=== PATIENT | male | born 1935 | race Caucasian/White ===

== ENCOUNTER → 2018-02-15 09:00 | Outpatient (CLI) | payer MEDICARE, MEDICAID, SELFPAY | PROVIDERS: PCP Family Medicine; Visit Provider Nurse Practitioner Family | DX: Z45.018 Encounter for adjustment and management of other part of cardiac pacemaker (principal); I49.5 Sick sinus syndrome; I48.0 Paroxysmal atrial fibrillation; I50.32 Chronic diastolic (congestive) heart failure; J44.9 Chronic obstructive pulmonary disease, unspecified; I13.0 Hypertensive heart and chronic kidney disease with heart failure and stage 1 through stage 4 chronic kidney disease, or unspecified chronic kidney disease; N18.9 Chronic kidney disease, unspecified | CPT/HCPCS: 93280; 99213 ==

== ENCOUNTER 2018-02-24 17:06 | Inpatient (IN) | payer MEDICARE, MEDICAID, SELFPAY ==
[2018-02-24] VITALS (36 sets, daily range): BP systolic 117–155; BP diastolic 42–75; PULSE 59–74; RESP 12–22; TEMP 36.1–36.7; O2SAT 94–99
[2018-02-24 17:54] LABS: Abs Immature Grans 0.02 k/cumm (0.0-0.09); Absolute Basophil Count 0.02 k/cumm (0.0-0.2); Absolute Eosinophil Count 0.07 k/cumm (0.0-0.7); Absolute Lymphocyte Count 1.44 k/cumm (1.2-3.4); Absolute Neutrophil Count 3.94 k/cumm (1.2-6.7); Basophils % 0.3; Eosinophils % 1.1; HCT 39.9 % (40.0-50.0); HGB 12.8 g/dL (13.5-17.5); Immature Grans % 0.3; Lymphocytes % 23.6; Mean Corp. HGB Concentration 32.1 g/dL (32.0-36.0); Mean Corpuscular Volume 93.4 fL (80-95); Monocytes % 9.9; Neutrophils % 64.8; Platelet Count 179 x1000/uL (130-400); RBC 4.27 m/cumm (4.50-6.00); RBC Distribution Width 15.1 % (11.8-14.1); White Blood Cell Count 6.09 k/cumm (4.4-10.8)
[2018-02-24] MEDS: MORPHine 10 MG/ML VIAL 4 MG IVP (17:57)
[2018-02-24] MEDS: Normal Saline 500 ML IV (17:58)
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
[2018-02-24 18:04] LABS: Lactate-non-spesis 1.3 mmol/L (0.6-1.4)
[2018-02-24 18:09] LABS: Bilirubin Negative (Negative); Blood Trace-intact (Negative); Clarity Clear; Glucose Negative (Negative); Ketones Negative (Negative); Leukocyte Esterase Small (Negative); Nitrite Positive (Negative); Urobilinogen 0.2 EU/dL (Up TO 0.2)
[2018-02-24 18:24] LABS: Bacteria Moderate HPF (Negative); Crystals Negative HPF (Negative); Epithelial Cells Rare HPF (Negative); RBC 0-2 (0-2)
[2018-02-24 18:25] LABS: C & S Indicated? Yes; Casts Negative LPF (Negative); Mucus Trace (Negative); WBC 20-50 HPF (0-5)
[2018-02-24 18:28] LABS: ALT 247 U/L (12-78); AST 417 U/L (15-37); Albumin 3.2 g/dL (3.4-5.0); Alkaline Phosphatase 228 U/L (46-116); Anion Gap 6.6 mmol/L (3-11); BUN 20 mg/dL (7-18); CO2 28.4 mmol/L (21.0-32.0); CREATININE 1.22 mg/dL (0.70-1.30); Calcium 8.8 mg/dL (8.5-10.1); Chloride 103 mmol/L (98-107); Estimated GFR 57.01 (mL/min/1.73m2); Glucose 95 mg/dL (70-100); Lipase 121 U/L (73-393); Magnesium 1.9 mg/dL (1.8-2.4); Potassium 4.3 mmol/L (3.5-5.1); Sodium 138 mmol/L (136-145); Troponin I < 0.02 ng/mL (0.00-0.06)
--- NOTE | 2018-02-24 19:10 | DI.RPTCT_ITS ---
SYMPTOM/DIAGNOSIS: DIFFUSE ABDOMINAL PAIN, DIVERTICULITIS ABDOMINAL AND PELVIC CT : 02/24 CT examination of the abdomen and pelvis was performed with a bolus infusion of 98 cc Omnipaque 350. Images obtained through the lung bases show small areas of atelectasis and/or consolidation of the left lung base which were not present on previous CT of . The liver is unremarkable in appearance. There is mild extrahepatic biliary dilatation which was not present on previous CT of 12/30/17. There are two apparent small calculi in the distal common bile duct consistent with new choledocholithiasis and associated obstruction. Pancreas is unremarkable in appearance. Spleen contains multiple granulomas but is otherwise unremarkable. Adrenals and kidneys show no acute change. Abdominal aorta is of normal diameter and apart from calcific atheromatous changes no other significant abnormality seen. There is a suprapubic catheter in the urinary bladder which has an apparently thickened wall. Prostatic enlargement noted. No gross abdominal or pelvic adenopathy seen. Appendix appears normal. Colonic diverticulosis noted without evidence of diverticulitis. CONCLUSION: 1. New left basilar atelectasis or consolidation 2. New obstructing choledocholithiasis with two small stones, measuring 3 mm in diameter or less, in the distal common bile duct.
--- NOTE | 2018-02-24 19:15 | DI.REPORT_ITS ---
SYMPTOM/DIAGNOSIS: SHORTNESS OF BREATH PA AND LATERAL CHEST: 02/24 The heart is not enlarged. There is a transvenous cardiac pacemaker in position. Minimal streaky change is noted in the left lung base as seen on CT. Otherwise lungs are clear. No pleural effusion seen. CONCLUSION: Minimal left basilar infiltrates. Appropriate follow up studies requested.
[2018-02-24] MEDS: Omnipaque 350 MG/ML 100 ML BTL 98 ML IJ (19:16)
--- NOTE | 2018-02-24 19:58 | DI.VRAD_ITS ---
EXAM: CT Abdomen and Pelvis With Intravenous Contrast CLINICAL HISTORY: 82 years old, male; Pain; Abdominal pain; Generalized; Patient HX: Diffuse abdominal pain. Since today. TECHNIQUE: Axial computed tomography images of the abdomen and pelvis with intravenous contrast. All CT scans at this facility use at least one of these dose optimization techniques: automated exposure control; mA and/or kV adjustment per patient size (includes targeted exams where dose is matched to clinical indication); or iterative reconstruction. Coronal and sagittal reformatted images were created and reviewed. CONTRAST: 98 mL of omnipaque 350 administered intravenously. COMPARISON: CT - CHEST ABD PELVIS WITH CONTRAST 08/01/2017 11:59 AM FINDINGS: Lung bases: Lung bases with central lobular emphysema. Progressive atelectasis in the lung bases with bronchial wall thickening and mucus impaction. Heart: Cardiomegaly with coronary and faint valvular calcifications ABDOMEN: Liver: There is hepatomegaly and fatty infiltration of the liver. Macro lobular hepatic contour.Correlate with LFTs and risk factors for cirrhosis Stable 13 mm hypodensity right lobe of the liver Gallbladder and bile ducts: Prior cholecystectomy. Progressive intra-and extrahepatic biliary dilatation. Mild enhancement and prominence of the common bile duct with 2 tandem punctate calcification near the ampullas is an interval finding. Pancreas: There is fatty atrophy of the pancreas. No ductal dilation. Spleen: Mild splenomegaly Adrenals: There is multilobulated benign adenomatous enlargement of the adrenal glands. Kidneys and ureters: Unremarkable. No solid mass. No hydronephrosis. Stomach and bowel: Extensive diverticulosis coli, without full-filling the C.T. criteria for diverticulitis. No perforation, or abscess. No signs or history of bleeding provided. Submucosal fat in the rectosigmoid colon. Mild chronic narrowing of the rectosigmoid colon which may indicate sequelae are repeated bouts of colitis. No obstruction. PELVIS: Appendix: Normal appendix Bladder: Suprapubic catheter incompletely drains the bladder.Incomplete urinary bladder distention with prominent wall. Pericystic induration. Cystitis not excluded. Correlate with urinalysis this is progressive. Reproductive: Enlarged prostate with carcinoma not excluded. ABDOMEN and PELVIS: Intraperitoneal space: Unremarkable. No free air. No significant fluid collection. Bones/joints: Spondylosis and facet arthrosis No acute fracture. No dislocation. Soft tissues: Gynecomastia Vasculature: Atheromatous changes of an ectatic aorta, and branch vessels. No abdominal aortic aneurysm. Lymph nodes: Nonspecific hilar and mediastinal lymph nodes Stable small lymph node adjacent to the lower esophagus. There are small, benign-appearing lymph nodes, probably reactive, most measuring 1 cm or smaller in the short axis. Tubes, lines and devices: Pacemaker Pacemaker. Other findings: Sequelae of old granulomatous disease without reactivation IMPRESSION: Interval choledocholithiasis causing mild biliary dilatation. No definitive CT pancreatitis.Chemical pancreatitis can be present in the absence of CT findings. Progressive inflammatory changes in the lung bases Arteriopath Extensive diverticulosis coli. Stable submucosal fat and luminal marrow in the rectosigmoid colon. Enlarged prostate with carcinoma not excluded Suprapubic catheter with chronic cystitis Dictated and Authenticated by: Mikaela Irvin MD. Ordering:CHARLENE ELMORE MD
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
[2018-02-25] MEDS: POTASSIUM CHLORIDE/0.45% NACL 1,000 ML 100 MEQ IV ×2 (01:32→11:02)
[2018-02-25] MEDS: Normal Saline Flush 10 ML SYR IVP (01:32)
[2018-02-25] MEDS: ALPRAZolam 0.25 MG TAB PO ×3 (01:41→19:56)
[2018-02-25] MEDS: Mirtazapine 15 MG TAB PO ×2 (01:42→22:11)
[2018-02-25 04:05] VITALS: BP 149/76; PULSE 61; RESP 15; TEMP 35.6; O2SAT 99
--- NOTE | 2018-02-25 06:16 | HPE_ITS ---
REASON FOR ADMISSION Abdominal pain, choledocholithiasis with abnormal transaminase levels and alkaline phosphatase, no fe vishal or leukocytosis. ASSESSMENT AND PLAN 1. Choledocholithiasis with elevated transaminase and alkaline phosphatase. No fever. No white coun t. Moderate pain. Per GI will observe overnight. Trend his labs. Watch for fever - If he does develop a fever, will sta rt empiric antibiotics using Zosyn. If no spontaneous improvement contact GI in the morning to discuss transfer down and back for ERCP. IV fluids overnight, antiemetics IV, opiates for pain management IV. 2. Chronic obstructive pulmonary disease. COPD seems to be stable, continue outpatient inhalers. 3. Atrial fibrillation. Afib without clinical recurrence, has pacer. Betablocker for rate control. Hold anticoagulation pending any procedure tomorrow. 4. Hypertension. Blood pressure acceptable. Hold diuretic and potassium overnight. Continue beta-b locker. 5. Depression and anxiety. Continue outpatient medications. 6. Glaucoma. Continue outpatient eyedrops. 7. Chronic suprapubic catheter. Urine will always have bacteria. Not febrile and no symptoms direct ly referable to this. Hold off on any empiric treatment for urinary tract infection at this time. HISTORY OF PRESENT ILLNESS Dino Ross is an 82-year-old man with multiple chronic medical problems including COPD, chron ic atrial fibrillation, urinary retention with suprapubic catheter, chronic back pain. He has been [place] ving sharp to achy quality diffuse abdominal pain over the past week or two that has not responded to oral opiates, hence referral by Home Health to the Emergency Room for evaluation. He was not in any acute distress when he arrived, but he did have diffuse abdominal pain. He was afebrile. He did not h ave an elevated white count. Abdominal and pelvic CT scan was requested, which showed two small stone s near the ampulla, with some increase in intra and extra hepatic biliary dilatation compared to prio r study with surgical absence of the gallbladder. He was found to have transaminase levels in the 200 to 400 range with elevated alkaline phosphatase, but normal bilirubin. Consultation by phone with GI at [facility]. Cabrera by Emergency Room Staff indicates he is a candidate for ERCP, but they have no beds available. Suggested observation overnight to see if stones pass spontaneously, trend his trans aminase and alk phos levels, monitor for fever and if no spontaneous improvement discuss with SHELBY de la rosa the possibility of going down for ERCP and then returning here for post procedure recovery. He i s being admitted now for symptom management, hydration and monitoring of his chronic problems and rep eat labs in the morning. PROBLEM LIST ACUTE PROBLEMS 1. Choledocholithiasis. 2. Transaminitis and elevated alkaline phosphatase secondary to above. CHRONIC PROBLEMS 1. Chronic obstructive pulmonary disease. 2. Urinary retention with suprapubic catheter. 3. Hypertension. 4. Chronic atrial fibrillation status post pacemaker insertion, chronic anticoagulation. 5. Chronic back pain. 6. Depression. 7. Osteoarthritis of the knees. 8. Hypothyroidism. 9. Diastolic dysfunction - Does not tolerate Afib with rapid rates. 10. Diverticulosis. 11. Chronic venous insufficiency. 12. Glaucoma. 13. Hypertension. PAST SURGICAL HISTORY 1. Cholecystectomy. 2. Suprapubic catheter. 3. Pacemaker insertion with lead revision. MEDICATIONS Medications per outpatient notes. 1. Spiriva 1 inhalation daily. 2. Flovent 110 mcg inhaler 2 puffs twice daily. 3. Alprazolam 0.25 mg daily. 4. Ondansetron 4 mg q. 6 p.r.n. 5. Lactulose 4 teaspoons t.i.d. p.r.n. 6. Albuterol inhaler p.r.n. 7. Pantoprazole 40 mg daily. 8. Oxycodone 5 mg three times daily. 9. Colace 100 mg twice daily. 10. Furosemide 40 mg daily. 11. Dulcolax suppository 10 mg daily p.r.n. 12. Metoprolol tartrate 50 mg twice daily. 13. Morphine solution 20 mg/ml 1/4 to 1/2 ml twice daily p.r.n. shortness of breath. 14. Pradaxa 150 mg twice daily. 15. Potassium chloride 20 mEq daily. 16. Mirtazapine 15 mg at bedtime. 17. Latanoprost 0.005%, 1 drop each eye at bedtime. 18. Azopt 1%, one drop daily each eye. 19. Nitroglycerin p.r.n. 20. Levothyroxine 75 mcg daily. 21. Acetaminophen 650 mg q. 4 p.r.n. INTOLERANCE Hydrocodone - Causing nausea. Dulera caused mouth burning. REVIEW OF SYSTEMS No recent choking episodes. He thinks his breathing is at baseline with no recent exacerbations of co ugh or wheeze. No palpitations. No presyncope. No anginal type chest pain. He has had nausea and some anorexia. No vomiting. No dysphagia. Diffuse abdominal pain. Tendency towards constipation, but no b lood in stool. He has urine from suprapubic catheter as well as voiding, denies unusual darkness or b leeding. No dysuria when he does void. No recent ankle swelling. He feels diffusely weak, but no foca l weakness. No recent falls. No tobacco use. No alcohol use. He has been living in his own home with Home [facility]. PHYSICAL EXAMINATION GENERAL - Lying on a stretcher, he looks uncomfortable from diffuse abdominal pain and the duration o f the time in the Emergency Room with multiple studies being done. VITAL SIGNS - Presenting vital signs - Temperature 37.6. Blood pressure one teens to 130s/70s. Pulse rate has been in the 50 to 60 range. SAO2 95% on room air. Weight 78.7 kilograms. HEENT - Sclerae are anicteric. He has dentures up and down. Mucous membranes are moist. No thrush or lesions visible. No JVD. LUNGS - Lungs are distant breath sounds, but no crackles or wheeze. No rub. HEART - Heart rhythm presently regular. No murmur, S3 or S4. Pacemaker right upper chest. ABDOMEN - Bowel sounds present, perhaps a little bit increased. Not tympanitic. He has diffuse tende rness mildly to palpation throughout. No rebound. With distraction, I do not get any guarding. I lou ot appreciate any masses. He has suprapubic catheter in place with no drainage from the site. RECTAL - Exam not done. EXTREMITIES - Extremities are warm, 1+ pulses in the feet. No edema present now. He can sit up unass isted. He has antigravity power in all extremities. I did not observe him walk. LABORATORY STUDIES Electrolytes are normal. BUN 20, creatinine 1.22, random blood sugar 57. Lactate 1.3. Total bili 1.0 . AST 417, ALT 247, alk phos 228, albumin 3.2. White count 6,000, hemoglobin 12.8, hematocrit 39.9, platelet count 179,000. URINALYSIS - Urinalysis is positive for nitrite, 20 to 50 white cells per high-powered field from cat heter. Chest x-ray - Chronic changes of COPD. No infiltrate. CT scan abdomen and pelvis with findings of two tandem stones near the ampulla. No evidence of obstru ction. No free air. CC: [facility]
[2018-02-25] MEDS: Levothyroxine 75 MCG TAB PO (06:32)
[2018-02-25 06:51] LABS: Abs Immature Grans 0.02 k/cumm (0.0-0.09); Absolute Basophil Count 0.01 k/cumm (0.0-0.2); Absolute Eosinophil Count 0.08 k/cumm (0.0-0.7); Absolute Lymphocyte Count 1.11 k/cumm (1.2-3.4); Absolute Monocyte Count 0.48 k/cumm (0.11-0.7); Absolute Neutrophil Count 2.47 k/cumm (1.2-6.7); Basophils % 0.2; Eosinophils % 1.9; HGB 12.7 g/dL (13.5-17.5); Immature Grans % 0.5; Lymphocytes % 26.6; Mean Corp. HGB Concentration 31.8 g/dL (32.0-36.0); Mean Corpuscular Hemoglobin 29.5 pg (27.0-33.0); Mean Corpuscular Volume 92.8 fL (80-95); Mean Platelet Volume 10.3 fL (8.0-11.0); Monocytes % 11.5; Neutrophils % 59.3; Platelet Count 164 x1000/uL (130-400); RBC 4.31 m/cumm (4.50-6.00); RBC Distribution Width 15.3 % (11.8-14.1); White Blood Cell Count 4.17 k/cumm (4.4-10.8)
[2018-02-25 07:12] LABS: ALT 446 U/L (12-78); AST 498 U/L (15-37); Alkaline Phosphatase 243 U/L (46-116); Anion Gap 6.5 mmol/L (3-11); BUN 13 mg/dL (7-18); Bilirubin, Total 1.7 mg/dL (0.2-1.0); CO2 29.5 mmol/L (21.0-32.0); Calcium 8.5 mg/dL (8.5-10.1); Chloride 106 mmol/L (98-107); Glucose 89 mg/dL (70-100); Lipase 79 U/L (73-393); Potassium 4.1 mmol/L (3.5-5.1); Sodium 142 mmol/L (136-145); Total Protein 6.6 g/dL (6.4-8.2)
[2018-02-25 07:25] VITALS: BP 139/74; PULSE 61; RESP 19; TEMP 36.8; O2SAT 95
[2018-02-25 07:35] VITALS: O2SAT 94
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
[2018-02-25] MEDS: Docusate Sodium 100 MG CAP PO ×2 (08:16→19:57)
[2018-02-25] MEDS: Polyethylene Glycol 3350 17 GM PACKET PO (08:16)
[2018-02-25] MEDS: Acetaminophen 325 MG TAB PO ×2 (08:16→19:57)
[2018-02-25] MEDS: Metoprolol 50 MG TAB PO ×2 (08:16→19:57)
[2018-02-25] MEDS: Pantoprazole 40 MG TABCR PO (08:16)
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
--- NOTE | 2018-02-25 10:55 | PHARADMIT ---
Addendum entered by Angely Bailey 03/01/18 11:21: Pharmacy Note Subjective MD advancing pt's diet Objective VS-okay Cl-110 AST/ALT-improved Assessment Pradaxa on hold till (5 days per [facility]) Plan to H+R when ready Original Note: Addendum entered by Agustin Espinal III 02/28/18 11:44: Pharmacy Note Subjective Patient reported increased abdominal pain, CT ordered. Objective VS-OK SCr-1.15 (up) Lytes, WBC,H7h,Plts-OK Liquid BM Assessment Pradaxa on hold till (5 days per [facility]) Plan Discharge had up pending results of CT scan. Original Note: Addendum entered by Angely Bailey 02/27/18 10:28: Pharmacy Note Subjective pt feeling better per progress note Objective VS-okay Cl-110 AST,ALT,tot.bili,alk phos-improved Assessment dabigatran on hold (for 5 days total) due to procedure done at [facility] MD electing not to use abx as he thinks pt is likely colonized (pt currently has no fever or leukocytosis) Plan referrals sent for SNF, continue to watch VS, labs and for med changes Original Note: Admission Pharmacy Clinical Review ACUTE CHOLEDOCHOLITHIASIS Code Status DNR/DNI Current Weight 78.7 kg Renally Cleared and Narrow Therapeutic Index Meds CRCL ~54ML/MIN QTc Value / Action Taken 454 IN DECEMBER BP Control, Fever 139/74 AFEBRILE Electrolytes reviewed OK DVT Prophylaxis PRADAXA AT HOME(ON HOLD FOR ERCP THIS AFTER NOON) Opiate Usage / Scheduled Bowel Regimen Ordered PRN/PRN Plt/SCr for Heparin / Enoxaparin 164/1.10 INR for Warfarin NA H/H stable, WBC/Bands 12.7/4.0 WBC 4.17 Antibiotic appropriateness NA Cultures and Sensitivities NA Surgical ABX d/c within 24 hr NA DM control / Insulin Dosing NA Heart Failure (Check EF%) (JULISSA's, B-Block, Diuretics) IV to PO Switch Home Meds Reviewed Home Meds Not Ordered Potassium Chloride [K-Dur] 20 meq PO DAILY AM #30 tabcr 07/18/15 Multivitamin with Minerals [Multiple Vitamin] 1 tab PO DAILY 03/04/16 Furosemide [Lasix] 40 mg PO DAILY 10/22/16 Dabigatran [Pradaxa] 150 mg PO BID cap 10/26/16 Vitamin D 1 tab PO Q30D 08/01/17 Oxycodone HCl 5 mg PO TID 10/22/17 Fluticasone Propionate [24 Hour Allergy] 9.9 ml NS BID 12/30/17 Na PHOSPHATE ENEMA [Fleet Enema] 133 ml LA DAILY PRN 12/30/17 Naloxone HCl [Narcan Nasal [place]] 4 mg NS DIRECTED PRN 12/30/17 Comments ERCP SCHEDULED FOR TODAY AT [facility]
[2018-02-25 11:35] VITALS: BP 128/70; PULSE 59; RESP 20; TEMP 36.5; O2SAT 95
--- NOTE | 2018-02-25 13:26 | PDOC.PROG_ITS ---
Date of Service: 02/25/18 Time of Service: 13:25 Assessment/Plan - Assessment/Plan (1) Choledocholithiasis Plan: patient to be sent [place] [facility] this afternoon for ERCP by gastroenterology and then to return to [facility] for recovery. Patient was not started on antibiotics last night as he had no fever or leukocytosis. Current guidelines do not recommend preoperative antibiotic treatment unless there is evidence for acute cholangitis. He does not meet Charcot's triad as he has had no fever although he does have pain that appears to have some slight icterus. I think if they are unsuccessful in and perform an ERCP and removal of his common bile duct stones and I think he will need antibiotic coverage as he is likely to develop complications. (2) COPD (chronic obstructive pulmonary disease) Plan: Continue his Spiriva along with as needed albuterol as needed. (4) Atrial fibrillation Plan: Continue rate control with metoprolol however his Pradaxa is on hold pending his ERCP (5) Chronic kidney disease (CKD) Assessment: His BUN and creatinine appear to be stable Plan: Continue IV fluid hydration. Avoid use of NSAIDs. History of Present Illness - History of Present Illness Chief Complaint: choledocholithiasis;abdominal pain History of Present Illness: 82-year-old male with a past medical history of COPD, hypertension, chronic atrial fibrillation status post permanent pacemaker on chronic anticoagulation with Pradaxa (last dose yesterday morning between 5 and 7 AM). Patient presented emergency room last night with acute nausea and vomiting and abdominal pain. CT scan of his abdomen and pelvis with contrast showed new obstructing choledocholithiasis with 2 small stones measuring 3 mm in diameter it is distal common bile duct. He also has new left basilar atelectasis versus consolidation. Laboratory studies include a CBC that did not show any leukocytosis he has a stable chronic mild anemia with hemoglobin 12.8 g. CMP demonstrated elevated liver enzymes with an AST of 417, ALT 247, alkaline phosphatase 228 with a total bilirubin of 1.0. His blood lactate level was normal at 1.3. Lipase was normal at 121. Follow-up CMP this morning shows a rise in his bilirubin to 1.7, AST 498, ALT 446, alkaline phosphatase 243. His renal function appears to be normal with a BUN of 13 creatinine 1.10. He has normal electrolytes. His repeat CBC continues to show a low white cell count of 4000. Stable anemia with hemoglobin 12.7 g and hematocrit of 40%. He has had no fevers overnight. He continues to have abdominal pain and nausea without emesis. [facility] gastroenterology was contacted last night by [facility] emergency room staff and they spoke with a Dr. Cabrera from gastroenterology at [facility]. They did not have any beds available for transfer last night and recommended observation overnight to see if his stones passed spontaneously. I spoke with the GI fellow zone maintenance technician this morning and he agreed to take the patient for an ERCP late this afternoon. They understand that the patient has been on Pradaxa for his atrial fibrillation his last dose was yesterday. Plans for Dr. Janae Ruiz will be the GI attending performed the procedure. Patient will be transferred back to [facility] after the procedure for recovery. Review of Systems - Review of Systems Constitutional: denies: Fever Respiratory: denies: Shortness of Breath Cardiovascular: denies: Chest Pain Gastrointestinal: Nausea, Abdominal Pain. denies: Vomiting - Medications/Allergies Allergies/Adverse Reactions: Allergies Allergy/AdvReac Type Severity Reaction Status Date / Time banana Allergy Mild Skin Rash Unverified 02/24/18 17:29 formoterol fumarate AdvReac Intermediate Ineffective Unverified 02/24/18 17:29 [From Dulera] per Pt mometasone furoate AdvReac Intermediate Ineffective Unverified 02/24/18 17:29 [From Dulera] per Pt hydrocodone AdvReac Unknown Dizziness/L Unverified 02/24/18 17:29 ightheade Medications: Current Medications Acetaminophen (Tylenol) 0 mg PO Q4H PRN PRN Last Admin: 02/25/18 08:16 Dose: 650 mg Albuterol Sulfate (Proventil Updraft) 2.5 mg UPD Q2H PRN PRN Alprazolam (Xanax) 0.25 mg PO BID [facility] Last Admin: 02/25/18 08:16 Dose: 0.25 mg Bisacodyl (Dulcolax Suppository) 10 mg DC DAILY PRN PRN Brinzolamide (Azopt) 0 ml OU DAILY [facility] Last Admin: 02/25/18 08:15 Dose: 2 drp Dimethicone/Zinc Oxide ([place] Protect Cream) 0 gm TP PRN PRN Docusate Sodium (Colace) 100 mg PO TID PRN PRN Docusate Sodium (Colace) 100 mg PO BID [facility] Last Admin: 02/25/18 08:16 Dose: 100 mg Fluticasone Propionate (Flovent 110mcg) 0 puff IH BID [facility] Last Admin: 02/25/18 09:10 Dose: 2 inh Potassium Chloride/Sodium Chloride (Kcl 20meq/0.45% Nacl) 1,000 mls @ 100 mls/ hr IV INFUSION [facility] Last Admin: 02/25/18 11:02 Dose: 100 mls/hr IV Miscellaneous Supplies () 1 each IV DIRECTED [facility] Lactulose (Cephulac) 15 gm PO TID PRN PRN Latanoprost (Xalatan) 0 ml OU HS [facility] Levothyroxine Sodium (Levothroid) 75 mcg PO DAILY@0600 [facility] Last Admin: 02/25/18 06:32 Dose: 75 mcg Metoprolol Tartrate (Lopressor) 50 mg PO BID [facility] Last Admin: 02/25/18 08:16 Dose: 50 mg Mirtazapine (Remeron) 15 mg PO HS [facility] Morphine Sulfate () 2 mg IVP Q2H PRN PRN Nitroglycerin (Nitrostat) 0.4 mg SL Q5 MIN PRN X3 PRN Ondansetron HCl (Zofran Injection) 4 mg IVP Q4H PRN PRN Pantoprazole Sodium (Protonix Injection) 40 mg IVP Q12H [facility] Last Admin: 02/25/18 09:56 Dose: Not Given Polyethylene Glycol (Miralax) 17 gm PO DAILY PRN PRN PRN Reason: Constipation Last Admin: 02/25/18 08:16 Dose: 17 gm Sodium Chloride (Saline Flush 10 Ml Syringe) 0 ml IVP PRN PRN Tiotropium Una (Spiriva Handihaler) 1 cap IH DAILY [facility] Last Admin: 02/25/18 09:09 Dose: 1 cap Objective - Exam Vitals and I&O: Vital Signs Temp 36.8 C 02/25/18 07:25 Pulse 61 02/25/18 07:25 Resp 19 02/25/18 07:25 BP 139/74 02/25/18 07:25 Pulse Ox 94 L 02/25/18 07:35 Intake & Output 02/24/18 02/25/18 02/25/18 23:59 11:59 23:59 Intake Total 569 Output Total 850 Balance -281 Weight 78.7 kg Intake: IV 494 Oral 75 Output: Urine 850 Other: Urine Color Yellow Urine Appearance Clear Clear Comment S/P UROSTOMY Stool Size Small Stool Characteristics Formed [place] General: Alert, Oriented x3, Cooperative, Mild distress (Secondary to pain) Lungs: Other (Right basilar rales without rhonchi or wheezing) Cardiovascular: Regular rate, Normal S1, Normal S2 Abdomen: Other (Hypoactive bowel sounds with distended abdomen and marked tenderness in the right upper quadrant with guarding) Extremities: denies: Cyanosis, Edema, Normal pulses (Diminished pedal pulses), Tenderness/swelling Neurological: Normal speech, Strength at 5/5 X4 ext, Normal tone Psych/Mental Status: Mental status NL, Mood NL - Results Results: Laboratory Results WBC 4.17 k/cumm (4.4-10.8) L D 02/25/18 06:40 RBC 4.31 m/cumm (4.50-6.00) L 02/25/18 06:40 Hgb 12.7 g/dL (13.5-17.5) L 02/25/18 06:40 Hct 40.0 % (40.0-50.0) 02/25/18 06:40 MCV 92.8 fL (80-95) 02/25/18 06:40 MCH 29.5 pg (27.0-33.0) 02/25/18 06:40 MCHC 31.8 g/dL (32.0-36.0) L 02/25/18 06:40 RDW 15.3 % (11.8-14.1) H 02/25/18 06:40 Plt Count 164 x1000/uL (130-400) 02/25/18 06:40 MPV 10.3 fL (8.0-11.0) 02/25/18 06:40 Immature Gran % 0.5 02/25/18 06:40 Neutrophils % 59.3 02/25/18 06:40 Lymphocytes % 26.6 02/25/18 06:40 Monocytes % 11.5 02/25/18 06:40 Eosinophils % 1.9 02/25/18 06:40 Basophils % 0.2 02/25/18 06:40 Absolute Neutrophils 2.47 k/cumm (1.2-6.7) 02/25/18 06:40 Absolute Lymphocytes 1.11 k/cumm (1.2-3.4) L 02/25/18 06:40 Absolute Monocytes 0.48 k/cumm (0.11-0.7) 02/25/18 06:40 Absolute Eosinophils 0.08 k/cumm (0.0-0.7) 02/25/18 06:40 Absolute Basophils 0.01 k/cumm (0.0-0.2) 02/25/18 06:40 Sodium 142 mmol/L (136-145) 02/25/18 06:40 Potassium 4.1 mmol/L (3.5-5.1) 02/25/18 06:40 Chloride 106 mmol/L (98-107) 02/25/18 06:40 Carbon Dioxide 29.5 mmol/L (21.0-32.0) 02/25/18 06:40 Anion Gap 6.5 mmol/L (3-11) 02/25/18 06:40 BUN 13 mg/dL (7-18) D 02/25/18 06:40 Creatinine 1.10 mg/dL (0.70-1.30) 02/25/18 06:40 Estimated GFR/1.73 m2 >= 60.00 (mL/min/1.73m2) 02/25/18 06:40 Glucose 89 mg/dL (70-100) 02/25/18 06:40 Lactate 1.3 mmol/L (0.6-1.4) 02/24/18 17:45 Calcium 8.5 mg/dL (8.5-10.1) 02/25/18 06:40 Magnesium 1.9 mg/dL (1.8-2.4) 02/24/18 17:45 Total Bilirubin 1.7 mg/dL (0.2-1.0) H 02/25/18 06:40 AST 498 U/L (15-37) H 02/25/18 06:40 ALT 446 U/L (12-78) H 02/25/18 06:40 Alkaline Phosphatase 243 U/L (46-116) H 02/25/18 06:40 Troponin I < 0.02 ng/mL (0.00-0.06) 02/24/18 17:45 Total Protein 6.6 g/dL (6.4-8.2) 02/25/18 06:40 Albumin 3.0 g/dL (3.4-5.0) L 02/25/18 06:40 Lipase 79 U/L (73-393) 02/25/18 06:40 Urine Color Yellow (Yellow) 02/24/18 18:05 Urine Clarity Clear 02/24/18 18:05 Urine pH 6.0 (5-8) 02/24/18 18:05 Ur Specific [place] 1.010 (1.005-1.025) 02/24/18 18:05 Urine Protein Negative mg/dL (Negative) 02/24/18 18:05 Urine Ketones Negative mg/dL (Negative) 02/24/18 18:05 Urine Blood Trace-intact (Negative) H 02/24/18 18:05 Urine Nitrite Positive (Negative) H 02/24/18 18:05 Urine Bilirubin Negative (Negative) 02/24/18 18:05 Urine Urobilinogen 0.2 EU/dL (Up TO 0.2) 02/24/18 18:05 Ur Leukocyte Esterase Small (Negative) H 02/24/18 18:05 Urine RBC 0-2 (0-2) 02/24/18 18:05 Urine WBC 20-50 HPF (0-5) 02/24/18 18:05 Ur Epithelial Cells Rare HPF (Negative) 02/24/18 18:05 Urine Crystals Negative HPF (Negative) 02/24/18 18:05 Urine Bacteria Moderate HPF (Negative) 02/24/18 18:05 Urine Casts Negative LPF (Negative) 02/24/18 18:05 Urine Mucus Trace (Negative) 02/24/18 18:05 Ur Culture Indicated? Yes 02/24/18 18:05 Urine Glucose Negative mg/dL (Negative) 02/24/18 18:05 EKG done yesterday at 10:57 AM demonstrated normal sinus rhythm rate 63 bpm with no acute ischemic ST-T wave changes.
--- NOTE | 2018-02-25 17:12 | NUR.NOTE ---
Nursing Note: At 1140 on 02/25/18, Maria Del Rosario Coburn RN called report to TOREY Shaw at [facility] in preparation for the pt. going to [facility] for an ERCP. RN will reassess as necessary.
--- NOTE | 2018-02-25 17:55 | NUR.NOTE ---
Nursing Note: At 1755 on 02/25/18, Maria Del Rosario Coburn RN received report from TOREY Shaw at [facility] regarding how the pt. did during the ERCP. Per [facility] RN, pt. did great during the ERCP, is alert and oriented x3, appropriate, cooperative, pleasant, and denies pain at this time. VSS. HR: 60 BP: 144/71 O2 saturation: 96 percent on room air. Pt. had general anesthesia and received propofol and two liters of lactated ringers. Pt. had a sphincterotomy with a balloon sweep and stated that ...a few gallstones were removed. Pt. to be at [facility] for another 20 minutes so that his pacemaker can be interrogated and then he will be heading back to [facility]. RN will reassess as necessary.
[2018-02-25 20:00] VITALS: BP 165/68; PULSE 60; RESP 19; TEMP 37.3; O2SAT 97
[2018-02-25] MEDS: Pantoprazole 40 MG VIAL IVP (22:11)
[2018-02-25] MEDS: Latanoprost 0.005% 2.5 ML BTL OU (22:12)
[2018-02-26 00:57] VITALS: BP 152/68; PULSE 58; RESP 20; TEMP 36; O2SAT 97
[2018-02-26] MEDS: POTASSIUM CHLORIDE/0.45% NACL 1,000 ML 100 MEQ IV ×2 (02:04→12:53)
[2018-02-26] MEDS: Levothyroxine 75 MCG TAB PO (05:36)
[2018-02-26 05:39] VITALS: BP 144/76; PULSE 63; RESP 18; TEMP 37; O2SAT 95
[2018-02-26 07:11] LABS: Abs Immature Grans 0.03 k/cumm (0.0-0.09); Absolute Basophil Count 0.03 k/cumm (0.0-0.2); Absolute Eosinophil Count 0.06 k/cumm (0.0-0.7); Absolute Lymphocyte Count 1.21 k/cumm (1.2-3.4); Absolute Monocyte Count 0.59 k/cumm (0.11-0.7); Basophils % 0.5; Eosinophils % 0.9; HCT 41.9 % (40.0-50.0); HGB 13.5 g/dL (13.5-17.5); Immature Grans % 0.5; Lymphocytes % 18.8; Mean Corp. HGB Concentration 32.2 g/dL (32.0-36.0); Mean Corpuscular Hemoglobin 29.9 pg (27.0-33.0); Mean Corpuscular Volume 92.9 fL (80-95); Mean Platelet Volume 10.6 fL (8.0-11.0); Monocytes % 9.2; Neutrophils % 70.1; Platelet Count 161 x1000/uL (130-400); RBC 4.51 m/cumm (4.50-6.00); RBC Distribution Width 15.6 % (11.8-14.1); White Blood Cell Count 6.42 k/cumm (4.4-10.8)
[2018-02-26 07:25] VITALS: BP 135/68; PULSE 60; RESP 14; TEMP 36.5; O2SAT 97
[2018-02-26 07:32] LABS: ALT 308 U/L (12-78); AST 211 U/L (15-37); Alkaline Phosphatase 235 U/L (46-116); Anion Gap 7.4 mmol/L (3-11); BUN 12 mg/dL (7-18); Bilirubin, Total 1.1 mg/dL (0.2-1.0); CO2 26.6 mmol/L (21.0-32.0); CREATININE 0.95 mg/dL (0.70-1.30); Calcium 8.5 mg/dL (8.5-10.1); Chloride 107 mmol/L (98-107); Glucose 76 mg/dL (70-100); Sodium 141 mmol/L (136-145); Total Protein 6.7 g/dL (6.4-8.2)
--- NOTE | 2018-02-26 09:35 | PDOC.CMPRO ---
Care Management Progress Note S/O: Dino continues to recover at [facility]. He reports some cramping and abdominal pain today but remains pleasant in interaction. He will most likely be monitored throughout the day, and may discharge as soon as tomorrow per MD. A: 82 year old male admittedt [facility] 02/24/18 for acute choledocholithiasis P: Dino will return home, resume current outpatient supports and follow up with his PCP and plan of care as prescribed. He will transport via private with his neighbor, Ed or [facility].
[2018-02-26] MEDS: Docusate Sodium 100 MG CAP PO ×2 (09:43→20:30)
[2018-02-26] MEDS: Acetaminophen 325 MG TAB PO (09:43)
[2018-02-26] MEDS: ALPRAZolam 0.25 MG TAB PO ×2 (09:43→20:30)
[2018-02-26] MEDS: Pantoprazole 40 MG VIAL IVP ×2 (09:44→22:19)
[2018-02-26] MEDS: Metoprolol 50 MG TAB PO ×2 (09:44→20:30)
[2018-02-26] MEDS: Normal Saline Flush 10 ML SYR IVP ×2 (09:44→22:20)
--- NOTE | 2018-02-26 09:52 | CMPROGNOTE_ITS ---
Care Management Progress Note S/O: Dino continues to recover at [facility]. He reports some cramping and abdominal pain today but remains pleasant in interaction. He will most likely be monitored throughout the day, and may discharge as soon as tomorrow per MD. A: 82 year old male admittedt [facility] 02/24/18 for acute choledocholithiasis P: Dino will return home, resume current outpatient supports and follow up with his PCP and plan of care as prescribed. He will transport via private with his neighbor, Ed or [facility].
[2018-02-26 11:47] VITALS: BP 132/66; PULSE 63; RESP 16; TEMP 36.6; O2SAT 98
--- NOTE | 2018-02-26 14:04 | PDOC.PROG_ITS ---
Date of Service: 02/26/18 Time of Service: 14:04 Assessment/Plan - Assessment/Plan (1) Choledocholithiasis Plan: Advance his diet as tolerated. Check repeat labs tomorrow morning including CMP and CBC. Withhold Pradaxa until morning March 03, 2018 (2) COPD (chronic obstructive pulmonary disease) Plan: Continue home inhalers (3) Hypertension Plan: Continue metoprolol 50 mg p.o. twice daily (4) Atrial fibrillation Plan: Continue rate control with Lopressor 50 mg p.o. twice daily. Originally I plan to restart his Pradaxa tonight however Dr. Pearson from [facility] is recommending withholding anticoagulation for 5 days. Resume his Pradaxa on . (5) Chronic kidney disease (CKD) Assessment: Stable BUN and creatinine Plan: Continue IV fluid hydration at a lower rate until he is taking good oral intake. History of Present Illness - History of Present Illness Chief Complaint: Choledocholithiasis History of Present Illness: Patient underwent ERCP with biliary sphincterotomy and balloon extraction of 2 common bile duct stones. This is performed yesterday at [facility] by Dr. Santo Pearson design/animation instructor. Apparently the patient is supposed to remain off his Pradaxa for 5 days according to procedure note that I had to look him on [facility] EMR. I did not receive any report from [facility] nor could I find any printer report sent with the patient. I did go online and look up his procedure report and found that Dr. Blanchard did recommend withholding anticoagulation for 5 days. Mr. Ross is feeling better compared to yesterday. The only discomfort he has is around the suprapubic catheter there is no vomiting today. He is having some diarrhea. His urine culture is come back growing multiple gram-negative organisms including E. coli Proteus and Pseudomonas. He has a chronic indwelling suprapubic catheter. 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 He has no fever no leukocytosis. I have advance Bill's diet today if he is tolerating his diet and will plan to send him home tomorrow. I will recheck his labs including a CBC and CMP tomorrow morning to make sure his LFTs continue to decline and that he has no fever or leukocytosis overnight. His Pradaxa will be kept on hold until morning Review of Systems - Review of Systems Constitutional: denies: Fever, Chills Gastrointestinal: Abdominal Pain (Mild suprapubic discomfort), Diarrhea. denies : Nausea, Vomiting - Medications/Allergies Allergies/Adverse Reactions: Allergies Allergy/AdvReac Type Severity Reaction Status Date / Time banana Allergy Mild Skin Rash Unverified 02/24/18 17:29 formoterol fumarate AdvReac Intermediate Ineffective Unverified 02/24/18 17:29 [From Dulera] per Pt mometasone furoate AdvReac Intermediate Ineffective Unverified 02/24/18 17:29 [From Dulera] per Pt hydrocodone AdvReac Unknown Dizziness/L Unverified 02/24/18 17:29 ightheade Medications: Current Medications Acetaminophen (Tylenol) 0 mg PO Q4H PRN PRN Last Admin: 02/26/18 09:43 Dose: 650 mg Albuterol Sulfate (Proventil Updraft) 2.5 mg UPD Q2H PRN PRN Alprazolam (Xanax) 0.25 mg PO BID [facility] Last Admin: 02/26/18 09:43 Dose: 0.25 mg Bisacodyl (Dulcolax Suppository) 10 mg SD DAILY PRN PRN Brinzolamide (Azopt) 0 ml OU DAILY [facility] Last Admin: 02/26/18 09:44 Dose: 2 drp Dabigatran (Pradaxa) 150 mg PO BID [facility] Dimethicone/Zinc Oxide ([place] Protect Cream) 0 gm TP PRN PRN Docusate Sodium (Colace) 100 mg PO TID PRN PRN Docusate Sodium (Colace) 100 mg PO BID [facility] Last Admin: 02/26/18 09:43 Dose: 100 mg Fluticasone Propionate (Flovent 110mcg) 0 puff IH BID [facility] Last Admin: 02/26/18 07:55 Dose: 2 inh Potassium Chloride/Sodium Chloride (Kcl 20meq/0.45% Nacl) 1,000 mls @ 100 mls/ hr IV INFUSION [facility] Last Admin: 02/26/18 12:53 Dose: 100 mls/hr IV Miscellaneous Supplies () 1 each IV DIRECTED [facility] Lactulose (Cephulac) 15 gm PO TID PRN PRN Latanoprost (Xalatan) 0 ml OU HS [facility] Last Admin: 02/25/18 22:12 Dose: 1 drp Levothyroxine Sodium (Levothroid) 75 mcg PO DAILY@0600 [facility] Last Admin: 02/26/18 05:36 Dose: 75 mcg Metoprolol Tartrate (Lopressor) 50 mg PO BID [facility] Last Admin: 02/26/18 09:44 Dose: 50 mg Mirtazapine (Remeron) 15 mg PO HS [facility] Last Admin: 02/25/18 22:11 Dose: 15 mg Morphine Sulfate () 2 mg IVP Q2H PRN PRN Nitroglycerin (Nitrostat) 0.4 mg SL Q5 MIN PRN X3 PRN Ondansetron HCl (Zofran Injection) 4 mg IVP Q4H PRN PRN Pantoprazole Sodium (Protonix Injection) 40 mg IVP Q12H [facility] Last Admin: 02/26/18 09:44 Dose: 40 mg Polyethylene Glycol (Miralax) 17 gm PO DAILY PRN PRN PRN Reason: Constipation Last Admin: 02/25/18 08:16 Dose: 17 gm Sodium Chloride (Saline Flush 10 Ml Syringe) 0 ml IVP PRN PRN Last Admin: 02/26/18 09:44 Dose: 20 ml Tiotropium [place] (Spiriva Handihaler) 1 cap IH DAILY [facility] Last Admin: 02/26/18 07:55 Dose: 1 cap Objective - Exam Vitals and I&O: Vital Signs Temp 36.6 C 02/26/18 11:47 Pulse 63 02/26/18 11:47 Resp 16 02/26/18 11:47 BP 132/66 02/26/18 11:47 Pulse Ox 98 02/26/18 11:47 Intake & Output 02/25/18 02/26/18 02/26/18 23:59 11:59 23:59 Intake Total 728 2389 Output Total 450 1551 1 Balance 278 838 -1 Intake: IV 728 1009 Oral 1380 Output: Urine 450 1550 Stool 1 1 Other: Urine Color Straw Light [place] Urine Appearance Clear Clear Comment Pt. has a suprapubic catheter that is emptying in to a Kang catheter gravity bag. Pt.'s urine has a strong odor. Stool Size Small Moderate Moderate Stool Characteristics Formed Liquid Liquid Hard Brown Brown Brown General: Alert, Oriented x3, Cooperative, No acute distress Lungs: Clear to auscultation, Normal air movement Cardiovascular: Regular rate, Normal S1, Normal S2 Abdomen: Normal bowel sounds, Soft, Tenderness (Tenderness over the suprapubic area around the catheter. There is no visible redness or induration) Extremities: denies: Edema Neurological: Normal speech, Strength at 5/5 X4 ext Psych/Mental Status: Mental status NL, Mood NL - Results Results: Laboratory Results WBC 6.42 k/cumm (4.4-10.8) D 02/26/18 06:18 RBC 4.51 m/cumm (4.50-6.00) 02/26/18 06:18 Hgb 13.5 g/dL (13.5-17.5) 02/26/18 06:18 Hct 41.9 % (40.0-50.0) 02/26/18 06:18 MCV 92.9 fL (80-95) 02/26/18 06:18 MCH 29.9 pg (27.0-33.0) 02/26/18 06:18 MCHC 32.2 g/dL (32.0-36.0) 02/26/18 06:18 RDW 15.6 % (11.8-14.1) H 02/26/18 06:18 Plt Count 161 x1000/uL (130-400) 02/26/18 06:18 MPV 10.6 fL (8.0-11.0) 02/26/18 06:18 Immature Gran % 0.5 02/26/18 06:18 Neutrophils % 70.1 02/26/18 06:18 Lymphocytes % 18.8 02/26/18 06:18 Monocytes % 9.2 02/26/18 06:18 Eosinophils % 0.9 02/26/18 06:18 Basophils % 0.5 02/26/18 06:18 Absolute Neutrophils 4.50 k/cumm (1.2-6.7) 02/26/18 06:18 Absolute Lymphocytes 1.21 k/cumm (1.2-3.4) 02/26/18 06:18 Absolute Monocytes 0.59 k/cumm (0.11-0.7) 02/26/18 06:18 Absolute Eosinophils 0.06 k/cumm (0.0-0.7) 02/26/18 06:18 Absolute Basophils 0.03 k/cumm (0.0-0.2) 02/26/18 06:18 Sodium 141 mmol/L (136-145) 02/26/18 06:18 Potassium 4.0 mmol/L (3.5-5.1) 02/26/18 06:18 Chloride 107 mmol/L (98-107) 02/26/18 06:18 Carbon Dioxide 26.6 mmol/L (21.0-32.0) 02/26/18 06:18 Anion Gap 7.4 mmol/L (3-11) 02/26/18 06:18 BUN 12 mg/dL (7-18) 02/26/18 06:18 Creatinine 0.95 mg/dL (0.70-1.30) 02/26/18 06:18 Estimated GFR/1.73 m2 >= 60.00 (mL/min/1.73m2) 02/26/18 06:18 Glucose 76 mg/dL (70-100) 02/26/18 06:18 Lactate 1.3 mmol/L (0.6-1.4) 02/24/18 17:45 Calcium 8.5 mg/dL (8.5-10.1) 02/26/18 06:18 Magnesium 1.9 mg/dL (1.8-2.4) 02/24/18 17:45 Total Bilirubin 1.1 mg/dL (0.2-1.0) H 02/26/18 06:18 AST 211 U/L (15-37) H 02/26/18 06:18 ALT 308 U/L (12-78) H 02/26/18 06:18 Alkaline Phosphatase 235 U/L (46-116) H 02/26/18 06:18 Troponin I < 0.02 ng/mL (0.00-0.06) 02/24/18 17:45 Total Protein 6.7 g/dL (6.4-8.2) 02/26/18 06:18 Albumin 3.0 g/dL (3.4-5.0) L 02/26/18 06:18 Lipase 79 U/L (73-393) 02/25/18 06:40 Urine Color Yellow (Yellow) 02/24/18 18:05 Urine Clarity Clear 02/24/18 18:05 Urine pH 6.0 (5-8) 02/24/18 18:05 Ur Specific [place] 1.010 (1.005-1.025) 02/24/18 18:05 Urine Protein Negative mg/dL (Negative) 02/24/18 18:05 Urine Ketones Negative mg/dL (Negative) 02/24/18 18:05 Urine Blood Trace-intact (Negative) H 02/24/18 18:05 Urine Nitrite Positive (Negative) H 02/24/18 18:05 Urine Bilirubin Negative (Negative) 02/24/18 18:05 Urine Urobilinogen 0.2 EU/dL (Up TO 0.2) 02/24/18 18:05 Ur Leukocyte Esterase Small (Negative) H 02/24/18 18:05 Urine RBC 0-2 (0-2) 02/24/18 18:05 Urine WBC 20-50 HPF (0-5) 02/24/18 18:05 Ur Epithelial Cells Rare HPF (Negative) 02/24/18 18:05 Urine Crystals Negative HPF (Negative) 02/24/18 18:05 Urine Bacteria Moderate HPF (Negative) 02/24/18 18:05 Urine Casts Negative LPF (Negative) 02/24/18 18:05 Urine Mucus Trace (Negative) 02/24/18 18:05 Ur Culture Indicated? Yes 02/24/18 18:05 Urine Glucose Negative mg/dL (Negative) 02/24/18 18:05
[2018-02-26 15:45] VITALS: BP 175/76; PULSE 59; RESP 20; TEMP 36.4; O2SAT 97
[2018-02-26 19:50] VITALS: BP 169/65; PULSE 64; RESP 19; TEMP 36.9; O2SAT 98
[2018-02-26] MEDS: Mirtazapine 15 MG TAB PO (22:19)
[2018-02-26] MEDS: Latanoprost 0.005% 2.5 ML BTL OU (22:20)
[2018-02-27 00:44] VITALS: BP 138/66; PULSE 59; RESP 18; TEMP 36.6; O2SAT 98
[2018-02-27] MEDS: POTASSIUM CHLORIDE/0.45% NACL 1,000 ML 50 MEQ IV ×2 (02:48→22:22)
[2018-02-27 04:00] VITALS: BP 140/70; PULSE 60; RESP 17; TEMP 36.5; O2SAT 98
[2018-02-27] MEDS: Levothyroxine 75 MCG TAB PO (05:45)
[2018-02-27 06:53] LABS: Abs Immature Grans 0.03 k/cumm (0.0-0.09); Absolute Basophil Count 0.02 k/cumm (0.0-0.2); Absolute Lymphocyte Count 1.14 k/cumm (1.2-3.4); Absolute Monocyte Count 0.76 k/cumm (0.11-0.7); Absolute Neutrophil Count 3.88 k/cumm (1.2-6.7); Basophils % 0.3; Eosinophils % 1.7; HCT 39.9 % (40.0-50.0); HGB 12.6 g/dL (13.5-17.5); Immature Grans % 0.5; Lymphocytes % 19.2; Mean Corp. HGB Concentration 31.6 g/dL (32.0-36.0); Mean Corpuscular Hemoglobin 29.5 pg (27.0-33.0); Mean Corpuscular Volume 93.4 fL (80-95); Mean Platelet Volume 10.6 fL (8.0-11.0); Monocytes % 12.8; Neutrophils % 65.5; Platelet Count 155 x1000/uL (130-400); RBC 4.27 m/cumm (4.50-6.00); RBC Distribution Width 15.8 % (11.8-14.1); White Blood Cell Count 5.93 k/cumm (4.4-10.8)
[2018-02-27 07:07] LABS: ALT 192 U/L (12-78); AST 98 U/L (15-37); Albumin 2.7 g/dL (3.4-5.0); Alkaline Phosphatase 187 U/L (46-116); Anion Gap 2.6 mmol/L (3-11); BUN 9 mg/dL (7-18); Bilirubin, Total 0.6 mg/dL (0.2-1.0); CO2 28.4 mmol/L (21.0-32.0); CREATININE 1.01 mg/dL (0.70-1.30); Calcium 8.5 mg/dL (8.5-10.1); Chloride 110 mmol/L (98-107); Glucose 88 mg/dL (70-100); Potassium 3.9 mmol/L (3.5-5.1); Sodium 141 mmol/L (136-145); Total Protein 6.2 g/dL (6.4-8.2)
[2018-02-27 07:24] VITALS: BP 152/74; PULSE 60; RESP 18; TEMP 36.3; O2SAT 97
[2018-02-27] MEDS: ALPRAZolam 0.25 MG TAB PO ×2 (07:50→19:19)
[2018-02-27] MEDS: Acetaminophen 325 MG TAB PO ×2 (07:50→13:02)
[2018-02-27] MEDS: Metoprolol 50 MG TAB PO ×2 (07:50→19:19)
[2018-02-27] MEDS: Docusate Sodium 100 MG CAP PO ×3 (07:50→19:20)
[2018-02-27] MEDS: Normal Saline Flush 10 ML SYR IVP ×3 (09:22→21:25)
[2018-02-27] MEDS: Pantoprazole 40 MG VIAL IVP ×2 (09:23→21:25)
--- NOTE | 2018-02-27 10:02 | PDOC.CMPRO ---
Care Management Progress Note S/O: Dino is lying in bed when CM meets with him, he remains talkative and pleasant in interaction. He is more independent and appears better kept than during other admissions. Dino would like to return to [facility] for a short term stay for strengthening prior to returning home. A: 82 year old male admitted to [facility] 02/24/18 for acute choledocholithiasis P: Dino is advocating for discharging to [facility]. CM faxed referral for review. Dino has been to the rehab many times and will be ready for discharge as soon as tomorrow, per MD. If [facility] is unable to provide bed, Dino will likely return home to resume support services with possible orders for increased supports. Dino will transport via private vehicle with his neighbor, Ed or via RCT.
--- NOTE | 2018-02-27 10:06 | CMPROGNOTE_ITS ---
Care Management Progress Note S/O: Dino is lying in bed when CM meets with him, he remains talkative and pleasant in interaction. He is more independent and appears better kept than during other admissions. Dino would like to return to [facility] for a short term stay for strengthening prior to returning home. A: 82 year old male admitted to [facility] 02/24/18 for acute choledocholithiasis P: Dino is advocating for discharging to [facility]. CM faxed referral for review. Dino has been to the rehab many times and will be ready for discharge as soon as tomorrow, per MD. If [facility] is unable to provide bed , Dino will likely return home to resume support services with possible orders for increased supports. Dino will transport via private vehicle with his neighbor, Ed or via RCT.
--- NOTE | 2018-02-27 10:48 | IN_ITS ---
INPATIENT PHYSICAL THERAPY EVALUATION Date: 02/27/18 Referring Doctor: Dr. Rodriguez PT Orders: generalized weakness, decreased ADL performance, gait instability Precautions: standard, fall PATIENT PROFILE/ADMITTING DIAGNOSIS: Patient admitted for medical management of choledocholithiasis, undergoing ERCP at [facility] 02/25/18. PMHX: chronic suprapubic catheter; COPD; atrial fibrillation s/p pacemaker placement with chronic anticoagulation; HTN; depression and anxiety; glaucoma; hypothyroidism; diverticulosis; chronic venous insufficiency Social History/Home Situation: Patient lives alone in a single family home. He has caregivers daily, and also has a neighbor who checks on him 3x/day. He performs all his own meal prep, although requires assistance for showering. He uses a WW in the house, and uses a cane for community ambulation, stating he never goes without help. He states that his house is situated downhill from the road, and he has to descend a flight of stairs to get into his house. He has rails on both sides that he can reach simultaneously. Reports several falls on this embankment prior to having stairs installed; he denies any falls since installation over a year ago. Equipment owned/DME: WW, cane, caregivers via SUBJECTIVE: Bill states that he's feeling well. His abdominal pain is improved. He states that he is feeling strong enough to go home, but that he knows he'll have to slow down a bit. OBJECTIVE: General Observation: Resting in chair at initiation of session. He has an IV in RUE, suprapubic catheter in place. Mental Status: A&Ox3 Pain: 3/10 ROM: RUE: WNL LUE: WNL RLE: WNL LLE: WNL STRENGTH: RUE: Shoulder flexion 4+/5. Biceps 5/5. Binding Nicker is strong and equal. LUE: Shoulder flexion 4+/5. Biceps 5/5. Binding Nicker is strong and equal. RLE: Hip flexion 5/5. Quads 5/5. HS 4+/5. Ankle DF 5/5 LLE: Hip flexion 5/5. Quads 5/5. HS 4+/5. Ankle DF 5/5 BED MOBILITY/TRANSFERS: sit->stand: supervision stand->sit: supervision GAIT: Patient ambulates 120' x 2 with WW and supervision only. He demonstrates significant fatigue post-ambulation, and we subsequently deferred on therex. He is able to manage stairs with supervision and assistance for management of lines , with bilat UE support to rails for ascending and descending 6 stairs x 2 and 4 stairs x 3. BALANCE: Static sitting: Normal Dynamic Sitting: normal Static Standing: good Dynamic Standing: fair SPECIAL TESTS: Patient is able to statically stand with small ROCK without UE support x 1 minutes. Mobility Limitations Standardized Measure [facility] AM -PAC 6 clicks Basic Mobility Inpatient Short Form: raw score: 23 standardized score: 57 CMS score: 11 % CMS modifier: CI INFORMED CONSENT/EDUCATION: Pt instructed in purpose of PT Consult and plan of care ASSESSMENT: Patient is a 82 year old male referred to physical therapy services with diagnosis of generalized weakness, gait instability and decreased ADL performance. Patient presents with clinical signs and symptoms consistent with diagnosis, with decreased activity tolerance versus his baseline after a hospitalization to address choledocholithiasis. Although he demonstrates good safety with ambulation and stair management, he is deconditioned after his acute health issues and requires skilled PT intervention to maximize his activity tolerance as he continues his medical treatment. He will also require Home Health PT upon D/C back home, which he will be safe to do. He currently demonstrates the following impairment level findings: 1. Decreased activity tolerance Impairments are contributing to the following functional limitations: 1. Decreased tolerance to household distance ambulation [facility] score 11% Patient is assessed as a Low 95204 Moderate 57790 __x__ high 97728 complexity based on the following: History: Decreased activity tolerance in patient with advanced age and multiple medical comorbidities. Patient lives alone with assistance from Home Health and neighbors. Examination: functional limitations as above Presentation: evolving Decision Making: moderate GOALS Goals x1 week 1. Supine-sit: supervision 2. Sit-Supine: supervision 3. Sit-Stand: supervision 4. Stand-sit: supervision 5. Bed-chair: supervision with WW 6. Chair-bed: supervision with WW 7. Gait: supervision x 300' with WW PLAN OF CARE/TREATMENT PLAN: 1-2x/day, 7 days/ week x 1 week Plan of care has been reviewed with the MOTION PICTURE COMMENTATOR providing the service under Physical therapy direction. Initiate physical therapy intervention for strengthening, bed mobility, transfers, gait, stairs, balance training, use of assistive device. DISCHARGE RECOMMENDATIONS: home with continued services and addition of HH PT TREATMENT TIME/MINUTES/CODES: 30 minutes (IE moderate) G Codes in the area mobility of walking and moving around: current status [id number] __CI projected status GP [id number] . Discharge status ( if discharging) GP [id number]
--- NOTE | 2018-02-27 10:51 | PDOC.PROG_ITS ---
Date of Service: 02/27/18 Time of Service: 10:51 Assessment/Plan - Assessment/Plan (1) Choledocholithiasis Assessment: resolving s/p ERCP w/ bile duct sphincterotomy and extraction of two stones Plan: advance diet and observe ovenight, if no problems then dc home. Start Actigall to prevent future biliary stones (2) COPD (chronic obstructive pulmonary disease) Assessment: no acute problems. cont. home inhalers (3) Hypertension Assessment: BP reasonably controlled. Plan: continue metoprolol for afib rate/rhythm control as well as bp (4) Atrial fibrillation Plan: cont. metoprolol however, withold his dabigatrin until (per GI recommendations) (5) Chronic kidney disease (CKD) Assessment: stable History of Present Illness - History of Present Illness Chief Complaint: choledocholithiasis History of Present Illness: Patient is improving. No nausea or vomiting. He is tolerating advancement of his diet. CM had spoken w/ him about going to [facility] tomorrow however, he would like to return home. His stools which had been diarrhea are starting to form up. He has no abdominal pains. His LFT'S while not normal are coming down. I will repeat them tomorrow and if he tolerates his diet today w/out abdominal pains and no fevers and his transaminases are continuing to decline then he can go home in the AM. Review of Systems - Review of Systems Constitutional: denies: Fever, Chills Gastrointestinal: Diarrhea (improving). denies: Nausea, Vomiting, Abdominal Pain - Medications/Allergies Allergies/Adverse Reactions: Allergies Allergy/AdvReac Type Severity Reaction Status Date / Time banana Allergy Mild Skin Rash Unverified 02/24/18 17:29 formoterol fumarate AdvReac Intermediate Ineffective Unverified 02/24/18 17:29 [From Dulera] per Pt mometasone furoate AdvReac Intermediate Ineffective Unverified 02/24/18 17:29 [From Dulera] per Pt hydrocodone AdvReac Unknown Dizziness/L Unverified 02/24/18 17:29 ightheade Medications: Current Medications Acetaminophen (Tylenol) 0 mg PO Q4H PRN PRN Last Admin: 02/27/18 07:50 Dose: 650 mg Albuterol Sulfate (Proventil Updraft) 2.5 mg UPD Q2H PRN PRN Alprazolam (Xanax) 0.25 mg PO BID [facility] Last Admin: 02/27/18 07:50 Dose: 0.25 mg Bisacodyl (Dulcolax Suppository) 10 mg [place] DAILY PRN PRN Brinzolamide (Azopt) 0 ml OU DAILY [facility] Last Admin: 02/27/18 07:53 Dose: 1 drp Dabigatran (Pradaxa) 150 mg PO BID [facility] Dimethicone/Zinc Oxide ([place] Protect Cream) 0 gm TP PRN PRN Docusate Sodium (Colace) 100 mg PO TID PRN PRN Docusate Sodium (Colace) 100 mg PO BID [facility] Last Admin: 02/27/18 07:50 Dose: 100 mg Fluticasone Propionate (Flovent 110mcg) 0 puff IH BID [facility] Last Admin: 02/27/18 07:42 Dose: 2 inh Potassium Chloride/Sodium Chloride (Kcl 20meq/0.45% Nacl) 1,000 mls @ 50 mls/ hr IV INFUSION [facility] Last Admin: 02/27/18 02:48 Dose: 50 mls/hr IV Miscellaneous Supplies () 1 each IV DIRECTED [facility] Lactulose (Cephulac) 15 gm PO TID PRN PRN Latanoprost (Xalatan) 0 ml OU HS [facility] Last Admin: 02/26/18 22:20 Dose: 1 drp Levothyroxine Sodium (Levothroid) 75 mcg PO DAILY@0600 [facility] Last Admin: 02/27/18 05:45 Dose: 75 mcg Metoprolol Tartrate (Lopressor) 50 mg PO BID [facility] Last Admin: 02/27/18 07:50 Dose: 50 mg Mirtazapine (Remeron) 15 mg PO HS [facility] Last Admin: 02/26/18 22:19 Dose: 15 mg Morphine Sulfate () 2 mg IVP Q2H PRN PRN Nitroglycerin (Nitrostat) 0.4 mg SL Q5 MIN PRN X3 PRN Ondansetron HCl (Zofran Injection) 4 mg IVP Q4H PRN PRN Pantoprazole Sodium (Protonix Injection) 40 mg IVP Q12H [facility] Last Admin: 02/27/18 09:23 Dose: 40 mg Polyethylene Glycol (Miralax) 17 gm PO DAILY PRN PRN PRN Reason: Constipation Last Admin: 02/25/18 08:16 Dose: 17 gm Sodium Chloride (Saline Flush 10 Ml Syringe) 0 ml IVP PRN PRN Last Admin: 02/27/18 09:22 Dose: 10 ml Tiotropium [place] (Spiriva Handihaler) 1 cap IH DAILY [facility] Last Admin: 02/27/18 07:42 Dose: 1 cap Ursodiol (Actigall) 300 mg PO BID [facility] Ursodiol (Actigall) 300 mg PO ONCE ONE Stop: 02/27/18 10:51 Objective - Exam Vitals and I&O: Vital Signs Temp 36.3 C L 02/27/18 07:24 Pulse 60 02/27/18 07:24 Resp 18 02/27/18 07:24 BP 152/74 02/27/18 07:24 Pulse Ox 97 02/27/18 07:24 Intake & Output 02/26/18 02/26/18 02/27/18 11:59 23:59 11:59 Intake Total 2389 2424 1202 Output Total 1551 1251 1625 Balance 838 1173 -423 Intake: IV 1009 1164 652 Oral 1380 1260 550 Output: Urine 1550 1250 1625 Stool 1 1 Other: Urine Color [place] Yellow Yellow Urine Appearance Clear Clear Clear Stool Size Moderate Moderate Moderate Stool Characteristics Liquid Soft Soft Brown Bloody Brown General: Alert, Oriented x3, Cooperative, No acute distress Lungs: Clear to auscultation, Normal air movement Cardiovascular: Regular rate, Normal S1, Normal S2 Abdomen: Normal bowel sounds, Soft. denies: Tenderness, Other (no distension) Psych/Mental Status: Mental status NL, Mood NL - Results Results: Laboratory Results WBC 5.93 k/cumm (4.4-10.8) 02/27/18 06:16 RBC 4.27 m/cumm (4.50-6.00) L 02/27/18 06:16 Hgb 12.6 g/dL (13.5-17.5) L 02/27/18 06:16 Hct 39.9 % (40.0-50.0) L 02/27/18 06:16 MCV 93.4 fL (80-95) 02/27/18 06:16 MCH 29.5 pg (27.0-33.0) 02/27/18 06:16 MCHC 31.6 g/dL (32.0-36.0) L 02/27/18 06:16 RDW 15.8 % (11.8-14.1) H 02/27/18 06:16 Plt Count 155 x1000/uL (130-400) 02/27/18 06:16 MPV 10.6 fL (8.0-11.0) 02/27/18 06:16 Immature Gran % 0.5 02/27/18 06:16 Neutrophils % 65.5 02/27/18 06:16 Lymphocytes % 19.2 02/27/18 06:16 Monocytes % 12.8 02/27/18 06:16 Eosinophils % 1.7 02/27/18 06:16 Basophils % 0.3 02/27/18 06:16 Absolute Neutrophils 3.88 k/cumm (1.2-6.7) 02/27/18 06:16 Absolute Lymphocytes 1.14 k/cumm (1.2-3.4) L 02/27/18 06:16 Absolute Monocytes 0.76 k/cumm (0.11-0.7) H 02/27/18 06:16 Absolute Eosinophils 0.10 k/cumm (0.0-0.7) 02/27/18 06:16 Absolute Basophils 0.02 k/cumm (0.0-0.2) 02/27/18 06:16 Sodium 141 mmol/L (136-145) 02/27/18 06:16 Potassium 3.9 mmol/L (3.5-5.1) 02/27/18 06:16 Chloride 110 mmol/L (98-107) H 02/27/18 06:16 Carbon Dioxide 28.4 mmol/L (21.0-32.0) 02/27/18 06:16 Anion Gap 2.6 mmol/L (3-11) L 02/27/18 06:16 BUN 9 mg/dL (7-18) 02/27/18 06:16 Creatinine 1.01 mg/dL (0.70-1.30) 02/27/18 06:16 Estimated GFR/1.73 m2 >= 60.00 (mL/min/1.73m2) 02/27/18 06:16 Glucose 88 mg/dL (70-100) 02/27/18 06:16 Lactate 1.3 mmol/L (0.6-1.4) 02/24/18 17:45 Calcium 8.5 mg/dL (8.5-10.1) 02/27/18 06:16 Magnesium 1.9 mg/dL (1.8-2.4) 02/24/18 17:45 Total Bilirubin 0.6 mg/dL (0.2-1.0) 02/27/18 06:16 AST 98 U/L (15-37) H 02/27/18 06:16 ALT 192 U/L (12-78) H 02/27/18 06:16 Alkaline Phosphatase 187 U/L (46-116) H 02/27/18 06:16 Troponin I < 0.02 ng/mL (0.00-0.06) 02/24/18 17:45 Total Protein 6.2 g/dL (6.4-8.2) L 02/27/18 06:16 Albumin 2.7 g/dL (3.4-5.0) L 02/27/18 06:16 Lipase 79 U/L (73-393) 02/25/18 06:40 Urine Color Yellow (Yellow) 02/24/18 18:05 Urine Clarity Clear 02/24/18 18:05 Urine pH 6.0 (5-8) 02/24/18 18:05 Ur Specific [place] 1.010 (1.005-1.025) 02/24/18 18:05 Urine Protein Negative mg/dL (Negative) 02/24/18 18:05 Urine Ketones Negative mg/dL (Negative) 02/24/18 18:05 Urine Blood Trace-intact (Negative) H 02/24/18 18:05 Urine Nitrite Positive (Negative) H 02/24/18 18:05 Urine Bilirubin Negative (Negative) 02/24/18 18:05 Urine Urobilinogen 0.2 EU/dL (Up TO 0.2) 02/24/18 18:05 Ur Leukocyte Esterase Small (Negative) H 02/24/18 18:05 Urine RBC 0-2 (0-2) 02/24/18 18:05 Urine WBC 20-50 HPF (0-5) 02/24/18 18:05 Ur Epithelial Cells Rare HPF (Negative) 02/24/18 18:05 Urine Crystals Negative HPF (Negative) 02/24/18 18:05 Urine Bacteria Moderate HPF (Negative) 02/24/18 18:05 Urine Casts Negative LPF (Negative) 02/24/18 18:05 Urine Mucus Trace (Negative) 02/24/18 18:05 Ur Culture Indicated? Yes 02/24/18 18:05 Urine Glucose Negative mg/dL (Negative) 02/24/18 18:05
[2018-02-27] MEDS: Ursodiol 300 MG CAP PO ×2 (11:34→19:19)
[2018-02-27 11:51] VITALS: BP 144/83; PULSE 60; RESP 18; TEMP 36; O2SAT 98
[2018-02-27 15:24] VITALS: BP 150/73; PULSE 60; RESP 18; TEMP 36.6; O2SAT 98
[2018-02-27 20:08] VITALS: BP 149/63; PULSE 61; RESP 17; TEMP 36.4; O2SAT 98
[2018-02-27] MEDS: Mirtazapine 15 MG TAB PO (21:26)
[2018-02-27] MEDS: Latanoprost 0.005% 2.5 ML BTL OU (21:27)
[2018-02-28] VITALS (7 sets, daily range): BP systolic 97–157; BP diastolic 64–82; PULSE 56–88; RESP 16–18; TEMP 36.1–37.3; O2SAT 94–99
[2018-02-28] MEDS: Levothyroxine 75 MCG TAB PO (06:31)
[2018-02-28 06:58] LABS: Abs Immature Grans 0.02 k/cumm (0.0-0.09); Absolute Basophil Count 0.02 k/cumm (0.0-0.2); Absolute Eosinophil Count 0.13 k/cumm (0.0-0.7); Absolute Lymphocyte Count 1.65 k/cumm (1.2-3.4); Absolute Monocyte Count 0.69 k/cumm (0.11-0.7); Absolute Neutrophil Count 3.62 k/cumm (1.2-6.7); Basophils % 0.3; Eosinophils % 2.1; HCT 42.3 % (40.0-50.0); HGB 13.4 g/dL (13.5-17.5); Immature Grans % 0.3; Lymphocytes % 26.9; Mean Corp. HGB Concentration 31.7 g/dL (32.0-36.0); Mean Corpuscular Hemoglobin 29.1 pg (27.0-33.0); Monocytes % 11.3; Neutrophils % 59.1; Platelet Count 166 x1000/uL (130-400); RBC Distribution Width 15.8 % (11.8-14.1); White Blood Cell Count 6.13 k/cumm (4.4-10.8)
[2018-02-28 07:11] LABS: ALT 152 U/L (12-78); AST 67 U/L (15-37); Alkaline Phosphatase 174 U/L (46-116); Anion Gap 8.5 mmol/L (3-11); BUN 9 mg/dL (7-18); Bilirubin, Total 0.6 mg/dL (0.2-1.0); CO2 26.5 mmol/L (21.0-32.0); CREATININE 1.15 mg/dL (0.70-1.30); Calcium 8.4 mg/dL (8.5-10.1); Chloride 109 mmol/L (98-107); Glucose 92 mg/dL (70-100); Sodium 144 mmol/L (136-145); Total Protein 6.8 g/dL (6.4-8.2)
[2018-02-28] MEDS: Metoprolol 50 MG TAB PO ×2 (07:55→20:48)
[2018-02-28] MEDS: ALPRAZolam 0.25 MG TAB PO ×2 (07:55→20:47)
[2018-02-28] MEDS: Docusate Sodium 100 MG CAP PO ×2 (07:55→20:48)
[2018-02-28] MEDS: Ursodiol 300 MG CAP PO ×2 (07:55→20:47)
--- NOTE | 2018-02-28 08:46 | INDS_ITS ---
PHYSICAL THERAPY INPATIENT DISCHARGE NOTE Date: 02/28/18 Dates of Service: 02/27/18 SUBJECTIVE: OBJECTIVE PT was seen for PT barbra 02/27/18 - see note for functional mobility ASSESSMENT: Pt was seen for PT Barbra and is being discharged to home today, pt did not meet therapy goals due to discharge, home PT recommended for continued strengthening and mobility training. GOALS Goals x1 week 1. Supine-sit: supervision 2. Sit-Supine: supervision 3. Sit-Stand: supervision 4. Stand-sit: supervision 5. Bed-chair: supervision with WW 6. Chair-bed: supervision with WW 7. Gait: supervision x 300' with WW Pt met goals # 3, 4, recommend home PT to meet remaining goals DISCHARGE RECOMMENDATIONS: Home with home PT G Codes in the area mobility of walking and moving around: current status_ projected status GP [id number] . Discharge status (if discharging) GP [id number] Frankel PT
--- NOTE | 2018-02-28 09:32 | PDOC.PROG_ITS ---
Date of Service: 02/28/18 Time of Service: 09:32 Assessment/Plan - Assessment/Plan (1) Choledocholithiasis Assessment: Improving LFTs, postop day #3 ERCP, common bile duct sphincterotomy and stone extraction Plan: Given his increased abdominal pain will get a CT scan of his abdomen pelvis without contrast. Will hold on discharge pending results of his CT scan. We will make him n.p.o. until we get the results of CT scan. If there is no bowel obstruction and no catastrophic findings on CT scan we will continue his diet continue the Actigall for prevention of future gallstones (2) COPD (chronic obstructive pulmonary disease) Plan: Continue home inhalers (3) Hypertension Plan: Continue home blood pressure medications which includes Lopressor (4) Atrial fibrillation Plan: Continue metoprolol for rate control. Pradaxa on hold until March 03 per GIs request (5) Chronic kidney disease (CKD) Assessment: Stable chronic kidney disease History of Present Illness - History of Present Illness Chief Complaint: Abdominal pain, choledocholithiasis History of Present Illness: Patient underwent ERCP and common bile duct sphincterotomy and extraction of common bile duct stones at [facility] on February 25, 2018. He did well with the procedure over the weekend we advanced his diet and been monitoring his CBC and CMP. His LFTs have progressively improved and his CBC has shown no evidence of leukocytosis. His hemoglobin hematocrit been stable around 12-13 g. He has had no fevers. Initially he was can be referred to [facility] that over the weekend he decided that he thought he could go home now he is having second thoughts and feels that he would benefit from further rehab at [facility]. This morning however he is having some increased abdominal pain. Yesterday he had some mild suprapubic tenderness but no guarding or rebound tenderness. This morning he has nausea and diffuse abdominal pain along with guarding and rebound tenderness. He still has no fever and no leukocytosis and his LFTs continue to improve although they remain slightly elevated. We will send him for CT scan of his abdomen and pelvis to be sure they does not have a bowel obstruction or some catastrophic event from his ERCP. He is remains off his Pradaxa per instructions from the mission support specialist at [facility]. They want him off the Pradaxa for 5 days post procedure. Review of Systems - Review of Systems Constitutional: Fever Gastrointestinal: Nausea, Abdominal Pain, Diarrhea (Patient states that he is having watery diarrhea.). denies: Vomiting - Medications/Allergies Allergies/Adverse Reactions: Allergies Allergy/AdvReac Type Severity Reaction Status Date / Time banana Allergy Mild Skin Rash Unverified 02/24/18 17:29 formoterol fumarate AdvReac Intermediate Ineffective Unverified 02/24/18 17:29 [From Dulera] per Pt mometasone furoate AdvReac Intermediate Ineffective Unverified 02/24/18 17:29 [From Dulera] per Pt hydrocodone AdvReac Unknown Dizziness/L Unverified 02/24/18 17:29 ightheade Medications: Current Medications Acetaminophen (Tylenol) 0 mg PO Q4H PRN PRN Last Admin: 02/27/18 13:02 Dose: 650 mg Albuterol Sulfate (Proventil Updraft) 2.5 mg UPD Q2H PRN PRN Alprazolam (Xanax) 0.25 mg PO BID [facility] Last Admin: 02/28/18 07:55 Dose: 0.25 mg Bisacodyl (Dulcolax Suppository) 10 mg [place] DAILY PRN PRN Brinzolamide (Azopt) 0 ml OU DAILY [facility] Last Admin: 02/28/18 07:55 Dose: 2 drp Dabigatran (Pradaxa) 150 mg PO BID [facility] Dimethicone/Zinc Oxide ([place] Protect Cream) 0 gm TP PRN PRN Docusate Sodium (Colace) 100 mg PO TID PRN PRN Last Admin: 02/27/18 17:30 Dose: 100 mg Docusate Sodium (Colace) 100 mg PO BID [facility] Last Admin: 02/28/18 07:55 Dose: 100 mg Fluticasone Propionate (Flovent 110mcg) 0 puff IH BID [facility] Last Admin: 02/28/18 07:13 Dose: 1 inh Potassium Cl/Dextrose/Lact Ringer's (Kcl 20meq/D5lr) 1,000 mls @ 100 mls/hr IV INFUSION [facility] IV Miscellaneous Supplies () 1 each IV DIRECTED [facility] Lactulose (Cephulac) 15 gm PO TID PRN PRN Latanoprost (Xalatan) 0 ml OU HS [facility] Last Admin: 02/27/18 21:27 Dose: 1 drp Levothyroxine Sodium (Levothroid) 75 mcg PO DAILY@0600 [facility] Last Admin: 02/28/18 06:31 Dose: 75 mcg Metoprolol Tartrate (Lopressor) 50 mg PO BID [facility] Last Admin: 02/28/18 07:55 Dose: 50 mg Mirtazapine (Remeron) 15 mg PO HS [facility] Last Admin: 02/27/18 21:26 Dose: 15 mg Morphine Sulfate () 2 mg IVP Q2H PRN PRN Last Admin: 02/27/18 15:25 Dose: 2 mg Nitroglycerin (Nitrostat) 0.4 mg SL Q5 MIN PRN X3 PRN Ondansetron HCl (Zofran Injection) 4 mg IVP Q4H PRN PRN Pantoprazole Sodium (Protonix Injection) 40 mg IVP Q12H [facility] Last Admin: 02/27/18 21:25 Dose: 40 mg Polyethylene Glycol (Miralax) 17 gm PO DAILY PRN PRN PRN Reason: Constipation Last Admin: 02/25/18 08:16 Dose: 17 gm Sodium Chloride (Saline Flush 10 Ml Syringe) 0 ml IVP PRN PRN Last Admin: 02/27/18 21:25 Dose: 20 ml Tiotropium [place] (Spiriva Handihaler) 1 cap IH DAILY [facility] Last Admin: 02/28/18 07:13 Dose: 1 cap Ursodiol (Actigall) 300 mg PO BID [facility] Last Admin: 02/28/18 07:55 Dose: 300 mg Objective - Exam Vitals and I&O: Vital Signs Temp 37.3 C 02/28/18 07:20 Pulse 71 02/28/18 07:20 Resp 17 02/28/18 07:20 BP 97/73 02/28/18 07:20 Pulse Ox 96 02/28/18 07:20 Intake & Output 02/27/18 02/27/18 02/28/18 11:59 23:59 11:59 Intake Total 1202 874 250 Output Total 1625 2195 2950 Balance -705 -899 -0249 Intake: IV 652 314 Oral 550 560 250 Output: Urine 1625 7645 2950 Other: Urine Color Yellow Straw Yellow Urine Appearance Clear Clear Clear Urine Odor Normal Comment changed guaze dressing Stool Size Moderate Small Moderate Stool Characteristics Soft Formed Soft Brown Hard Liquid General: Alert, Oriented x3, Cooperative, Mild distress Abdomen: Normal bowel sounds, Tenderness (Diffuse abdominal tenderness guarding and rebound tenderness.), Other (Distended abdomen with high-pitched bowel sounds) Psych/Mental Status: Mental status NL, Other (Anxious and distressed over his abdominal pain) - Results Results: Laboratory Results WBC 6.13 k/cumm (4.4-10.8) 02/28/18 06:32 RBC 4.60 m/cumm (4.50-6.00) 02/28/18 06:32 Hgb 13.4 g/dL (13.5-17.5) L 02/28/18 06:32 Hct 42.3 % (40.0-50.0) 02/28/18 06:32 MCV 92.0 fL (80-95) 02/28/18 06:32 MCH 29.1 pg (27.0-33.0) 02/28/18 06:32 MCHC 31.7 g/dL (32.0-36.0) L 02/28/18 06:32 RDW 15.8 % (11.8-14.1) H 02/28/18 06:32 Plt Count 166 x1000/uL (130-400) 02/28/18 06:32 MPV 11.0 fL (8.0-11.0) 02/28/18 06:32 Immature Gran % 0.3 02/28/18 06:32 Neutrophils % 59.1 02/28/18 06:32 Lymphocytes % 26.9 02/28/18 06:32 Monocytes % 11.3 02/28/18 06:32 Eosinophils % 2.1 02/28/18 06:32 Basophils % 0.3 02/28/18 06:32 Absolute Neutrophils 3.62 k/cumm (1.2-6.7) 02/28/18 06:32 Absolute Lymphocytes 1.65 k/cumm (1.2-3.4) 02/28/18 06:32 Absolute Monocytes 0.69 k/cumm (0.11-0.7) 02/28/18 06:32 Absolute Eosinophils 0.13 k/cumm (0.0-0.7) 02/28/18 06:32 Absolute Basophils 0.02 k/cumm (0.0-0.2) 02/28/18 06:32 Sodium 144 mmol/L (136-145) 02/28/18 06:32 Potassium 4.0 mmol/L (3.5-5.1) 02/28/18 06:32 Chloride 109 mmol/L (98-107) H 02/28/18 06:32 Carbon Dioxide 26.5 mmol/L (21.0-32.0) 02/28/18 06:32 Anion Gap 8.5 mmol/L (3-11) 02/28/18 06:32 BUN 9 mg/dL (7-18) 02/28/18 06:32 Creatinine 1.15 mg/dL (0.70-1.30) 02/28/18 06:32 Estimated GFR/1.73 m2 >= 60.00 (mL/min/1.73m2) 02/28/18 06:32 Glucose 92 mg/dL (70-100) 02/28/18 06:32 Lactate 1.3 mmol/L (0.6-1.4) 02/24/18 17:45 Calcium 8.4 mg/dL (8.5-10.1) L 02/28/18 06:32 Magnesium 1.9 mg/dL (1.8-2.4) 02/24/18 17:45 Total Bilirubin 0.6 mg/dL (0.2-1.0) 02/28/18 06:32 AST 67 U/L (15-37) H 02/28/18 06:32 ALT 152 U/L (12-78) H 02/28/18 06:32 Alkaline Phosphatase 174 U/L (46-116) H 02/28/18 06:32 Troponin I < 0.02 ng/mL (0.00-0.06) 02/24/18 17:45 Total Protein 6.8 g/dL (6.4-8.2) 02/28/18 06:32 Albumin 3.0 g/dL (3.4-5.0) L 02/28/18 06:32 Lipase 79 U/L (73-393) 02/25/18 06:40 Urine Color Yellow (Yellow) 02/24/18 18:05 Urine Clarity Clear 02/24/18 18:05 Urine pH 6.0 (5-8) 02/24/18 18:05 Ur Specific [place] 1.010 (1.005-1.025) 02/24/18 18:05 Urine Protein Negative mg/dL (Negative) 02/24/18 18:05 Urine Ketones Negative mg/dL (Negative) 02/24/18 18:05 Urine Blood Trace-intact (Negative) H 02/24/18 18:05 Urine Nitrite Positive (Negative) H 02/24/18 18:05 Urine Bilirubin Negative (Negative) 02/24/18 18:05 Urine Urobilinogen 0.2 EU/dL (Up TO 0.2) 02/24/18 18:05 Ur Leukocyte Esterase Small (Negative) H 02/24/18 18:05 Urine RBC 0-2 (0-2) 02/24/18 18:05 Urine WBC 20-50 HPF (0-5) 02/24/18 18:05 Ur Epithelial Cells Rare HPF (Negative) 02/24/18 18:05 Urine Crystals Negative HPF (Negative) 02/24/18 18:05 Urine Bacteria Moderate HPF (Negative) 02/24/18 18:05 Urine Casts Negative LPF (Negative) 02/24/18 18:05 Urine Mucus Trace (Negative) 02/24/18 18:05 Ur Culture Indicated? Yes 02/24/18 18:05 Urine Glucose Negative mg/dL (Negative) 02/24/18 18:05
[2018-02-28] MEDS: Pantoprazole 40 MG VIAL IVP (09:38)
[2018-02-28] MEDS: Normal Saline Flush 10 ML SYR IVP ×3 (09:38→19:58)
--- NOTE | 2018-02-28 10:01 | DI.RPTCT_ITS ---
SYMPTOM/DIAGNOSIS: ABD PAIN, S/P ERCP AND CBC SPHINCTEROTOMY AND STONE EXTRACTION ABDOMEN AND PELVIC CT: CT scan of the abdomen and pelvis was performed without intravenous or oral contrast material. Comparison is made with 12/30/17. Emphysematous changes are seen in the lung bases. Scarring, atelectasis or infiltrate is seen in the lung bases, left greater than right. Lack of IV contrast does limit evaluation of the solid organs. The unenhanced liver is unremarkable. The patient is status post cholecystectomy. No biliary ductal dilatation is present. There is fatty infiltration of the pancreas which is otherwise unremarkable. The spleen is unremarkable except for multiple splenic granuloma. The adrenal glands show no acute abnormality. The unenhanced kidneys show no evidence of nephrolithiasis or hydronephrosis. There is a small cyst again seen on the lower pole of the right kidney. The patient has a suprapubic catheter. The urinary bladder is unremarkable. The prostate gland appears enlarged with calcifications internally. There is atherosclerosis of the abdominal aorta but no aneurysmal dilatation. No significant abdominal or pelvic adenopathy, ascites or pneumoperitoneum is present. There is extensive diverticulosis seen in the colon, predominantly involving the descending and sigmoid colon but no evidence to suggest acute diverticulitis is present. There is a normal appendix present. There is mild inflammatory stranding seen about the proximal duodenum and a mild duodenitis cannot be excluded. The remainder of the bowel is unremarkable. No evidence of bowel obstruction is seen. Multi level moderately severe degenerative changes are present throughout the thoracic and lumbar spines. The findings are most marked from L 2-3 through L 5 -S 1. Multi level central spinal canal and neural foraminal stenosis is present. IMPRESSION: 1. Mild stranding seen around the proximal duodenum and a mild duodenitis cannot be excluded. 2. Status post cholecystectomy. No biliary ductal dilatation is present. 3. Colonic diverticulosis but no evidence of acute diverticulitis. 4. Enlarged prostate gland. Suprapubic catheter in place. 5. Multi level moderately severe degenerative changes in the thoracolumbar spine with multi level central spinal canal and neural foraminal stenosis. 6. Small left pleural effusion and bilateral basilar infiltrates which may represent atelectasis, pneumonia or scarring.
[2018-02-28] MEDS: Acetaminophen 325 MG TAB PO (11:06)
--- NOTE | 2018-02-28 11:09 | PDOC.CMPRO ---
Date of Service: 02/28/18 Time of Service: 11:09 Care Management Progress Note S/O: Pt presented at interdisciplinary rounds. Dino is sitting in his recliner when CM visits this morning. He is engaged in conversation, makes good eye contact and is talkative. Dino would like to return to [facility] for a short term stay for strengthening prior to returning home. CM [facility]. He has c/o increased abdominal pain this morning and a CT scan was ordered. Dino will be discharged pending results. He is npo at this time. A: 82 year old male admitted to [facility] 02/24/18 for acute choledocholithiasis P: Dino is advocating for discharging to [facility]. CM faxed referral for review. Dino has been to the rehab many times and will be ready for discharge as soon as tomorrow, per MD. If [facility] is unable to provide bed, Dino will likely return home to resume support services with possible orders for increased supports. If Dino returns home, he will transport via private vehicle with his neighbor, Ed or via [facility].
--- NOTE | 2018-02-28 11:13 | CMPROGNOTE_ITS ---
Date of Service: 02/28/18 Time of Service: 11:09 Care Management Progress Note S/O: Pt presented at interdisciplinary rounds. Dino is sitting in his recliner when CM visits this morning. He is engaged in conversation, makes good eye contact and is talkative. Dino would like to return to [facility] for a short term stay for strengthening prior to returning home. [facility] He has c/o increased abdominal pain this morning and a CT scan was ordered. Dino will be discharged pending results. He is npo at this time. A: 82 year old male admitted to [facility] 02/24/18 for acute choledocholithiasis P: Dino is advocating for discharging to [facility]. CM faxed referral for review. Dino has been to the rehab many times and will be ready for discharge as soon as tomorrow, per MD. If [facility] is unable to provide bed , Dino will likely return home to resume support services with possible orders for increased supports. If Dino returns home, he will transport via private vehicle with his neighbor, Ed or via [facility].
[2018-02-28 14:12] LABS: Abs Immature Grans 0.03 k/cumm (0.0-0.09); Absolute Basophil Count 0.02 k/cumm (0.0-0.2); Absolute Eosinophil Count 0.12 k/cumm (0.0-0.7); Absolute Lymphocyte Count 1.32 k/cumm (1.2-3.4); Absolute Monocyte Count 0.95 k/cumm (0.11-0.7); Absolute Neutrophil Count 3.61 k/cumm (1.2-6.7); Basophils % 0.3; HCT 39.8 % (40.0-50.0); HGB 12.9 g/dL (13.5-17.5); Immature Grans % 0.5; Lymphocytes % 21.8; Mean Corp. HGB Concentration 32.4 g/dL (32.0-36.0); Mean Corpuscular Volume 92.6 fL (80-95); Mean Platelet Volume 10.6 fL (8.0-11.0); Monocytes % 15.7; Neutrophils % 59.7; Platelet Count 154 x1000/uL (130-400); RBC Distribution Width 15.5 % (11.8-14.1); White Blood Cell Count 6.05 k/cumm (4.4-10.8)
[2018-02-28 15:10] LABS: ALT 129 U/L (12-78); AST 53 U/L (15-37); Albumin 2.8 g/dL (3.4-5.0); Alkaline Phosphatase 160 U/L (46-116); Anion Gap 6.1 mmol/L (3-11); BUN 10 mg/dL (7-18); Bilirubin, Direct 0.23 mg/dL (0.00-0.20); Bilirubin, Total 0.4 mg/dL (0.2-1.0); CO2 25.9 mmol/L (21.0-32.0); CREATININE 1.23 mg/dL (0.70-1.30); Calcium 8.2 mg/dL (8.5-10.1); Chloride 109 mmol/L (98-107); Estimated GFR 56.48 (mL/min/1.73m2); Glucose 95 mg/dL (70-100); Potassium 4.2 mmol/L (3.5-5.1); Sodium 141 mmol/L (136-145); Total Protein 5.7 g/dL (6.4-8.2)
[2018-02-28 18:28] LABS: Lipase 111 U/L (73-393)
--- NOTE | 2018-02-28 18:48 | DI.RPTCT_ITS ---
SYMPTOM/DIAGNOSIS: ABD PAIN, H/O CHOLEDOCHOLITHIASIS, S/P ERCP CTA ABDOMEN AND PELVIS: CT angiography was performed with multi slice acquisition and multi planar and 3D reconstruction. CT angiography of the abdomen and pelvis was performed. Comparison is made with CT scan from earlier in the day. There are again seen bilateral basilar infiltrates which appear stable. The liver is unremarkable. The patient is status post cholecystectomy. No biliary ductal dilatation is present. The pancreas is unremarkable. The spleen has a normal appearance apart from tiny calcified granuloma. The adrenal glands are unremarkable. The kidneys show normal and symmetric enhancement. Mild renal cortical atrophy is seen bilaterally. No solid renal mass or obstruction is identified. The urinary bladder is decompressed with apparent thick hernandez. There is a suprapubic catheter in place. The prostate gland is enlarged. There is atherosclerosis of the abdominal aorta but no aneurysmal dilatation is present. No dissection is seen. There is high grade stenosis of the proximal right common iliac artery and mild narrowing of the proximal left internal common iliac artery. There is atherosclerosis of the origin of the celiac axis and superior mesenteric artery. The renal arteries are patent with minimal atherosclerotic change seen at the origin of the renal artery. The bowel shows extensive diverticulosis but no evidence of acute diverticulitis. No findings to suggest acute, inflammatory or infectious process. 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 No findings to suggest an acute appendicitis are present. Severe degenerative changes are seen in the spine which are unchanged. IMPRESSION: 1. No acute abnormality. 2. Atherosclerosis of the abdominal aorta and its tributaries. 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
[2018-02-28 19:20] LABS: Amylase 33 U/L (25-115)
[2018-02-28] MEDS: Omnipaque 350 MG/ML 100 ML BTL IJ (19:55)
--- NOTE | 2018-02-28 20:16 | DI.VRAD_ITS ---
EXAM: CT Angiography Abdomen and Pelvis With Intravenous Contrast CLINICAL HISTORY: 82 years old, male; Pain; Abdominal pain; Generalized; Patient HX: Abdominal pain; Afib, choledocholithiasis; Additional info: S/P ercp TECHNIQUE: Axial computed tomographic angiography images of the abdomen and pelvis with intravenous contrast. MIP reconstructed images were created and reviewed. COMPARISON: CT - CHEST FOR PE, ABD PELVIS W 07/29/2016 4:38 PM, CT - ABD PELVIS WO CONTRAST 02/28/2018 9:57:35 AM FINDINGS: VASCULATURE: Aorta: Moderate aortoiliac atherosclerosis. No abdominal aortic aneurysm. No dissection. Celiac trunk and mesenteric arteries: Mild ostial atherosclerosis of the celiac trunk and SMA. Patent. Renal arteries: Patent. No occlusion or significant stenosis. Iliac arteries: High-grade stenosis, right proximal common iliac artery. Otherwise patent with scattered moderate atherosclerosis. Lung bases: Linear opacities again seen in both lung bases, subsegmental atelectasis. Pleural space: Trace left pleural effusion and/or pleural thickening. ABDOMEN: Liver: No focal pathology. No mass. Gallbladder and bile ducts: Cholecystectomy. No ductal dilation. Pancreas: No focal pathology. No ductal dilation. No mass. Spleen: Small splenic calcifications compatible with benign granulomata. Adrenals: No focal pathology. No mass. Kidneys and ureters: Bilateral renal cortical atrophy. No renal masses or hydronephrosis bilaterally. Stomach and bowel: Incidental duodenal lipoma. No significant inflammatory changes are seen around the duodenum. Extensive colonic diverticulosis marked in the sigmoid colon, similar to the previous study, with no evidence of diverticulitis. No focal pathology in the small bowel. No obstruction. PELVIS: Appendix: No findings to suggest acute appendicitis. Bladder: Thickwalled urinary bladder decompressed by Kang catheter similar to the previous study. Reproductive: Moderate enlargement of the prostate gland. ABDOMEN and PELVIS: Intraperitoneal space: No focal pathology. No significant fluid collection. No free air. Bones/joints: Degenerative changes in the hips. Degenerative changes in the spine. No acute fracture. No dislocation. Soft tissues: Tiny fat-containing umbilical hernia. Lymph nodes: No focal pathology. No enlarged lymph nodes. Tubes, lines and devices: Pacemaker lead is partially seen. IMPRESSION: 1. No acute findings. No active extravasation or evidence of mesenteric ischemia. 2. Incidental findings as described. Dictated and Authenticated by: Denice Walton MD. Ordering[facility] KANDY LUJAN MD
[2018-02-28] MEDS: Mirtazapine 15 MG TAB PO (20:47)
[2018-02-28] MEDS: Latanoprost 0.005% 2.5 ML BTL OU (21:21)
[2018-03-01] VITALS (8 sets, daily range): BP systolic 124–149; BP diastolic 67–81; PULSE 55–87; RESP 15–19; TEMP 35.8–37.1; O2SAT 94–98
--- NOTE | 2018-03-01 02:01 | NUR.NOTE ---
made pt NPO at dinner time pending results of second CT scan. pt wanted hs meds when he got back from CT. RAMANA Purvis notified of this request. RAMANA instructed this nurse to give pt his medications since CT was negative, but make him NPO after.
[2018-03-01 06:50] LABS: Lactate-non-spesis 1.2 mmol/L (0.6-1.4)
[2018-03-01 06:54] LABS: Abs Immature Grans 0.02 k/cumm (0.0-0.09); Absolute Basophil Count 0.01 k/cumm (0.0-0.2); Absolute Eosinophil Count 0.16 k/cumm (0.0-0.7); Absolute Lymphocyte Count 1.27 k/cumm (1.2-3.4); Absolute Monocyte Count 0.59 k/cumm (0.11-0.7); Absolute Neutrophil Count 3.19 k/cumm (1.2-6.7); Basophils % 0.2; Eosinophils % 3.1; HCT 39.8 % (40.0-50.0); HGB 12.5 g/dL (13.5-17.5); Immature Grans % 0.4; Lymphocytes % 24.2; Mean Corp. HGB Concentration 31.4 g/dL (32.0-36.0); Mean Corpuscular Hemoglobin 29.2 pg (27.0-33.0); Mean Platelet Volume 10.5 fL (8.0-11.0); Monocytes % 11.3; Neutrophils % 60.8; Platelet Count 161 x1000/uL (130-400); RBC 4.28 m/cumm (4.50-6.00); RBC Distribution Width 15.8 % (11.8-14.1); White Blood Cell Count 5.24 k/cumm (4.4-10.8)
[2018-03-01 07:17] LABS: ALT 101 U/L (12-78); AST 36 U/L (15-37); Albumin 2.6 g/dL (3.4-5.0); Alkaline Phosphatase 143 U/L (46-116); Anion Gap 1.4 mmol/L (3-11); BUN 10 mg/dL (7-18); Bilirubin, Total 0.4 mg/dL (0.2-1.0); CO2 29.6 mmol/L (21.0-32.0); Calcium 8.4 mg/dL (8.5-10.1); Chloride 110 mmol/L (98-107); Glucose 95 mg/dL (70-100); Lipase 91 U/L (73-393); Potassium 4.3 mmol/L (3.5-5.1); Sodium 141 mmol/L (136-145)
[2018-03-01] MEDS: ALPRAZolam 0.25 MG TAB PO ×2 (08:07→19:58)
[2018-03-01] MEDS: Docusate Sodium 100 MG CAP PO ×2 (08:07→19:58)
[2018-03-01] MEDS: Metoprolol 50 MG TAB PO ×2 (08:08→19:58)
[2018-03-01] MEDS: Ursodiol 300 MG CAP PO ×2 (08:08→19:57)
[2018-03-01] MEDS: Levothyroxine 75 MCG TAB PO (08:08)
[2018-03-01] MEDS: Pantoprazole 40 MG TABCR PO (08:08)
--- NOTE | 2018-03-01 10:40 | NT_ITS ---
PHYSICAL THERAPY NOTE 03/01/18 Patient was not discharged to home as was discussed in interdisciplinary rounds due to abdominal pain . CANCEL PT DISCHARGE NOTE of 02/28/18 Resume PT plan of care established 02/27/18 toward outlined goals. Attempted to see patient this morning for therapy session, pt not in room. Will continue attempts. Katrina Frankel PT
--- NOTE | 2018-03-01 11:07 | PDOC.PROG ---
Date of Service: 03/01/18 Time of Service: 11:07 Assessment/Plan - Assessment/Plan (1) Choledocholithiasis Assessment: LFTs continue to improve, no signs post-ERCP pancreatitis. Given improvement in abdominal pain and reassuring workup I will progress diet this morning. (2) Atherosclerotic peripheral vascular disease Assessment: CTA did show vascular disease but not c/w ischemic bowel. No change in medication regimen. (3) Atrial fibrillation Assessment: Holding anticoagulation over concern that abdominal pain may be related to some bleeding after ERCP with sphincterotomy. If there was bleeding, it was not significant enough to show on the CT. I will continue to hold per the plan, but plan to restart anticoagulation prior to discharge. Rate okay, on metoprolol. (4) BPH (benign prostatic hyperplasia) Assessment: Has a chronic cath, and I agree with patient that some catheter malfunction may be the cause of his discomfort. I called urology office and put in a referral to ask Dr. Hendricks to assess and possibly replace or reposition the catheter. His urine does grow bacteria but overall picture not c/w UTI so no antibiotics. History of Present Illness - History of Present Illness Chief Complaint: abdominal pain History of Present Illness: 24 hr: CT/CTA of abdomen/pelvis done, no acute findings Hungry. Abdominal pain is better, though he says he always has some discomfort. He did have 2 bowel movements this morning, one small and one regular. He does feel like his catheter is clogged as it is leaking and feels uncomfortable. Review of Systems - Review of Systems Constitutional: denies: Fever, Chills Respiratory: denies: Cough, Shortness of Breath Cardiovascular: denies: Chest Pain, Palpitations, Light Headedness Gastrointestinal: denies: Nausea, Vomiting, Diarrhea, Constipation Skin: denies: Rash - Medications/Allergies Allergies/Adverse Reactions: Allergies Allergy/AdvReac Type Severity Reaction Status Date / Time banana Allergy Mild Skin Rash Unverified 02/24/18 17:29 formoterol fumarate AdvReac Intermediate Ineffective Unverified 02/24/18 17:29 [From Dulera] per Pt mometasone furoate AdvReac Intermediate Ineffective Unverified 02/24/18 17:29 [From Dulera] per Pt hydrocodone AdvReac Unknown Dizziness/L Unverified 02/24/18 17:29 ightheade Medications: Current Medications Acetaminophen (Tylenol) 0 mg PO Q4H PRN PRN Last Admin: 02/28/18 11:06 Dose: 650 mg Albuterol Sulfate (Proventil Updraft) 2.5 mg UPD Q2H PRN PRN Alprazolam (Xanax) 0.25 mg PO BID [facility] Last Admin: 03/01/18 08:07 Dose: 0.25 mg Bisacodyl (Dulcolax Suppository) 10 mg [place] DAILY PRN PRN Brinzolamide (Azopt) 0 ml OU DAILY [facility] Last Admin: 03/01/18 08:07 Dose: 2 drp Dabigatran (Pradaxa) 150 mg PO BID [facility] Dimethicone/Zinc Oxide ([place] Protect Cream) 0 gm TP PRN PRN Docusate Sodium (Colace) 100 mg PO TID PRN PRN Last Admin: 02/27/18 17:30 Dose: 100 mg Docusate Sodium (Colace) 100 mg PO BID [facility] Last Admin: 03/01/18 08:07 Dose: 100 mg Fluticasone Propionate (Flovent 110mcg) 0 puff IH BID [facility] Last Admin: 03/01/18 07:18 Dose: 1 inh Potassium Cl/Dextrose/Lact Ringer's (Kcl 20meq/D5lr) 1,000 mls @ 150 mls/hr IV INFUSION [facility] Last Admin: 03/01/18 05:10 Dose: 150 mls/hr IV Miscellaneous Supplies () 1 each IV DIRECTED [facility] Lactulose (Cephulac) 15 gm PO TID PRN PRN Latanoprost (Xalatan) 0 ml OU HS [facility] Last Admin: 02/28/18 21:21 Dose: 1 drp Levothyroxine Sodium (Levothroid) 75 mcg PO DAILY@0600 [facility] Last Admin: 03/01/18 08:08 Dose: 75 mcg Metoprolol Tartrate (Lopressor) 50 mg PO BID [facility] Last Admin: 03/01/18 08:08 Dose: 50 mg Mirtazapine (Remeron) 15 mg PO HS [facility] Last Admin: 02/28/18 20:47 Dose: 15 mg Morphine Sulfate () 2 mg IVP Q2H PRN PRN Last Admin: 02/28/18 19:59 Dose: 2 mg Nitroglycerin (Nitrostat) 0.4 mg SL Q5 MIN PRN X3 PRN Ondansetron HCl (Zofran Injection) 4 mg IVP Q4H PRN PRN Pantoprazole Sodium (Protonix) 40 mg PO DAILY@0730 [facility] Last Admin: 03/01/18 08:08 Dose: 40 mg Polyethylene Glycol (Miralax) 17 gm PO DAILY PRN PRN PRN Reason: Constipation Last Admin: 02/25/18 08:16 Dose: 17 gm Sodium Chloride (Saline Flush 10 Ml Syringe) 0 ml IVP PRN PRN Last Admin: 02/28/18 19:58 Dose: 20 ml Tiotropium [place] (Spiriva Handihaler) 1 cap IH DAILY [facility] Last Admin: 03/01/18 07:18 Dose: 1 cap Ursodiol (Actigall) 300 mg PO BID [facility] Last Admin: 03/01/18 08:08 Dose: 300 mg Objective - Exam Vitals and I&O: Vital Signs Temp 36.9 C 03/01/18 07:35 Pulse 55 L 03/01/18 07:35 Resp 18 03/01/18 07:35 BP 132/72 03/01/18 07:35 Pulse Ox 95 03/01/18 07:35 Intake & Output 02/28/18 02/28/18 03/01/18 11:59 23:59 11:59 Intake Total 490 1693 1083 Output Total 3450 1200 1750 Balance -2960 493 -667 Intake: IV 853 1083 Oral 490 840 Output: Urine 3450 1200 1750 Other: Urine Color Yellow Yellow Yellow Urine Appearance Clear Clear Clear Urine Odor Normal Stool Occult Blood Negative Stool Size Moderate Small Stool Characteristics Soft Soft Liquid Brown General: Alert, Cooperative, No acute distress HEENT: Mucous membr. moist/pink Lungs: Clear to auscultation, Normal air movement Cardiovascular: Normal S1, Normal S2. denies: Regular rate, Murmurs Abdomen: Normal bowel sounds, Soft, Tenderness (mild tenderness with palpation RUQ and suprapubic). denies: Masses Extremities: denies: Clubbing, Cyanosis, Edema, Tenderness/swelling Skin: denies: Rashes (skin around catheter normal) - Results Results: Laboratory Results WBC 5.24 k/cumm (4.4-10.8) 03/01/18 06:42 RBC 4.28 m/cumm (4.50-6.00) L 03/01/18 06:42 Hgb 12.5 g/dL (13.5-17.5) L 03/01/18 06:42 Hct 39.8 % (40.0-50.0) L 03/01/18 06:42 MCV 93.0 fL (80-95) 03/01/18 06:42 MCH 29.2 pg (27.0-33.0) 03/01/18 06:42 MCHC 31.4 g/dL (32.0-36.0) L 03/01/18 06:42 RDW 15.8 % (11.8-14.1) H 03/01/18 06:42 Plt Count 161 x1000/uL (130-400) 03/01/18 06:42 MPV 10.5 fL (8.0-11.0) 03/01/18 06:42 Immature Gran % 0.4 03/01/18 06:42 Neutrophils % 60.8 03/01/18 06:42 Lymphocytes % 24.2 03/01/18 06:42 Monocytes % 11.3 03/01/18 06:42 Eosinophils % 3.1 03/01/18 06:42 Basophils % 0.2 03/01/18 06:42 Absolute Neutrophils 3.19 k/cumm (1.2-6.7) 03/01/18 06:42 Absolute Lymphocytes 1.27 k/cumm (1.2-3.4) 03/01/18 06:42 Absolute Monocytes 0.59 k/cumm (0.11-0.7) 03/01/18 06:42 Absolute Eosinophils 0.16 k/cumm (0.0-0.7) 03/01/18 06:42 Absolute Basophils 0.01 k/cumm (0.0-0.2) 03/01/18 06:42 Sodium 141 mmol/L (136-145) 03/01/18 06:42 Potassium 4.3 mmol/L (3.5-5.1) 03/01/18 06:42 Chloride 110 mmol/L (98-107) H 03/01/18 06:42 Carbon Dioxide 29.6 mmol/L (21.0-32.0) 03/01/18 06:42 Anion Gap 1.4 mmol/L (3-11) L 03/01/18 06:42 BUN 10 mg/dL (7-18) 03/01/18 06:42 Creatinine 1.10 mg/dL (0.70-1.30) 03/01/18 06:42 Estimated GFR/1.73 m2 >= 60.00 (mL/min/1.73m2) 03/01/18 06:42 Glucose 95 mg/dL (70-100) 03/01/18 06:42 Lactate 1.2 mmol/L (0.6-1.4) 03/01/18 06:42 Calcium 8.4 mg/dL (8.5-10.1) L 03/01/18 06:42 Magnesium 1.9 mg/dL (1.8-2.4) 02/24/18 17:45 Total Bilirubin 0.4 mg/dL (0.2-1.0) 03/01/18 06:42 Conjugated Bilirubin 0.23 mg/dL (0.00-0.20) H 02/28/18 14:03 AST 36 U/L (15-37) 03/01/18 06:42 ALT 101 U/L (12-78) H 03/01/18 06:42 Alkaline Phosphatase 143 U/L (46-116) H 03/01/18 06:42 Troponin I < 0.02 ng/mL (0.00-0.06) 02/24/18 17:45 Total Protein 6.0 g/dL (6.4-8.2) L 03/01/18 06:42 Albumin 2.6 g/dL (3.4-5.0) L 03/01/18 06:42 Amylase 33 U/L (25-115) 02/28/18 18:54 Lipase 91 U/L (73-393) 03/01/18 06:42 Urine Color Yellow (Yellow) 02/24/18 18:05 Urine Clarity Clear 02/24/18 18:05 Urine pH 6.0 (5-8) 02/24/18 18:05 Ur Specific [place] 1.010 (1.005-1.025) 02/24/18 18:05 Urine Protein Negative mg/dL (Negative) 02/24/18 18:05 Urine Ketones Negative mg/dL (Negative) 02/24/18 18:05 Urine Blood Trace-intact (Negative) H 02/24/18 18:05 Urine Nitrite Positive (Negative) H 02/24/18 18:05 Urine Bilirubin Negative (Negative) 02/24/18 18:05 Urine Urobilinogen 0.2 EU/dL (Up TO 0.2) 02/24/18 18:05 Ur Leukocyte Esterase Small (Negative) H 02/24/18 18:05 Urine RBC 0-2 (0-2) 02/24/18 18:05 Urine WBC 20-50 HPF (0-5) 02/24/18 18:05 Ur Epithelial Cells Rare HPF (Negative) 02/24/18 18:05 Urine Crystals Negative HPF (Negative) 02/24/18 18:05 Urine Bacteria Moderate HPF (Negative) 02/24/18 18:05 Urine Casts Negative LPF (Negative) 02/24/18 18:05 Urine Mucus Trace (Negative) 02/24/18 18:05 Ur Culture Indicated? Yes 02/24/18 18:05 Urine Glucose Negative mg/dL (Negative) 02/24/18 18:05
--- NOTE | 2018-03-01 11:10 | PDOC.PROG_ITS ---
Date of Service: 03/01/18 Time of Service: 11:07 Assessment/Plan - Assessment/Plan (1) Choledocholithiasis Assessment: LFTs continue to improve, no signs post-ERCP pancreatitis. Given improvement in abdominal pain and reassuring workup I will progress diet this morning. (2) Atherosclerotic peripheral vascular disease Assessment: CTA did show vascular disease but not c/w ischemic bowel. No change in medication regimen. (3) Atrial fibrillation Assessment: Holding anticoagulation over concern that abdominal pain may be related to some bleeding after ERCP with sphincterotomy. If there was bleeding, it was not significant enough to show on the CT. I will continue to hold per the plan, but plan to restart anticoagulation prior to discharge. Rate okay, on metoprolol. (4) BPH (benign prostatic hyperplasia) Assessment: Has a chronic cath, and I agree with patient that some catheter malfunction may be the cause of his discomfort. I called urology office and put in a referral to ask Dr. Hendricks to assess and possibly replace or reposition the catheter. His urine does grow bacteria but overall picture not c/w UTI so no antibiotics. History of Present Illness - History of Present Illness Chief Complaint: abdominal pain History of Present Illness: 24 hr: CT/CTA of abdomen/pelvis done, no acute findings Hungry. Abdominal pain is better, though he says he always has some discomfort. He did have 2 bowel movements this morning, one small and one regular. He does feel like his catheter is clogged as it is leaking and feels uncomfortable. Review of Systems - Review of Systems Constitutional: denies: Fever, Chills Respiratory: denies: Cough, Shortness of Breath Cardiovascular: denies: Chest Pain, Palpitations, Light Headedness Gastrointestinal: denies: Nausea, Vomiting, Diarrhea, Constipation Skin: denies: Rash - Medications/Allergies Allergies/Adverse Reactions: Allergies Allergy/AdvReac Type Severity Reaction Status Date / Time banana Allergy Mild Skin Rash Unverified 02/24/18 17:29 formoterol fumarate AdvReac Intermediate Ineffective Unverified 02/24/18 17:29 [From Dulera] per Pt mometasone furoate AdvReac Intermediate Ineffective Unverified 02/24/18 17:29 [From Dulera] per Pt hydrocodone AdvReac Unknown Dizziness/L Unverified 02/24/18 17:29 ightheade Medications: Current Medications Acetaminophen (Tylenol) 0 mg PO Q4H PRN PRN Last Admin: 02/28/18 11:06 Dose: 650 mg Albuterol Sulfate (Proventil Updraft) 2.5 mg UPD Q2H PRN PRN Alprazolam (Xanax) 0.25 mg PO BID [facility] Last Admin: 03/01/18 08:07 Dose: 0.25 mg Bisacodyl (Dulcolax Suppository) 10 mg [place] DAILY PRN PRN Brinzolamide (Azopt) 0 ml OU DAILY [facility] Last Admin: 03/01/18 08:07 Dose: 2 drp Dabigatran (Pradaxa) 150 mg PO BID [facility] Dimethicone/Zinc Oxide ([place]arro Protect Cream) 0 gm TP PRN PRN Docusate Sodium (Colace) 100 mg PO TID PRN PRN Last Admin: 02/27/18 17:30 Dose: 100 mg Docusate Sodium (Colace) 100 mg PO BID [facility] Last Admin: 03/01/18 08:07 Dose: 100 mg Fluticasone Propionate (Flovent 110mcg) 0 puff IH BID [facility] Last Admin: 03/01/18 07:18 Dose: 1 inh Potassium Cl/Dextrose/Lact Ringer's (Kcl 20meq/D5lr) 1,000 mls @ 150 mls/hr IV INFUSION [facility] Last Admin: 03/01/18 05:10 Dose: 150 mls/hr IV Miscellaneous Supplies () 1 each IV DIRECTED [facility] Lactulose (Cephulac) 15 gm PO TID PRN PRN Latanoprost (Xalatan) 0 ml OU HS [facility] Last Admin: 02/28/18 21:21 Dose: 1 drp Levothyroxine Sodium (Levothroid) 75 mcg PO DAILY@0600 [facility] Last Admin: 03/01/18 08:08 Dose: 75 mcg Metoprolol Tartrate (Lopressor) 50 mg PO BID [facility] Last Admin: 03/01/18 08:08 Dose: 50 mg Mirtazapine (Remeron) 15 mg PO HS [facility] Last Admin: 02/28/18 20:47 Dose: 15 mg Morphine Sulfate () 2 mg IVP Q2H PRN PRN Last Admin: 02/28/18 19:59 Dose: 2 mg Nitroglycerin (Nitrostat) 0.4 mg SL Q5 MIN PRN X3 PRN Ondansetron HCl (Zofran Injection) 4 mg IVP Q4H PRN PRN Pantoprazole Sodium (Protonix) 40 mg PO DAILY@0730 [facility] Last Admin: 03/01/18 08:08 Dose: 40 mg Polyethylene Glycol (Miralax) 17 gm PO DAILY PRN PRN PRN Reason: Constipation Last Admin: 02/25/18 08:16 Dose: 17 gm Sodium Chloride (Saline Flush 10 Ml Syringe) 0 ml IVP PRN PRN Last Admin: 02/28/18 19:58 Dose: 20 ml Tiotropium [place] (Spiriva Handihaler) 1 cap IH DAILY [facility] Last Admin: 03/01/18 07:18 Dose: 1 cap Ursodiol (Actigall) 300 mg PO BID [facility] Last Admin: 03/01/18 08:08 Dose: 300 mg Objective - Exam Vitals and I&O: Vital Signs Temp 36.9 C 03/01/18 07:35 Pulse 55 L 03/01/18 07:35 Resp 18 03/01/18 07:35 BP 132/72 03/01/18 07:35 Pulse Ox 95 03/01/18 07:35 Intake & Output 02/28/18 02/28/18 03/01/18 11:59 23:59 11:59 Intake Total 490 1693 1083 Output Total 3450 1200 1750 Balance -2960 493 -667 Intake: IV 853 1083 Oral 490 840 Output: Urine 3450 1200 1750 Other: Urine Color Yellow Yellow Yellow Urine Appearance Clear Clear Clear Urine Odor Normal Stool Occult Blood Negative Stool Size Moderate Small Stool Characteristics Soft Soft Liquid Brown General: Alert, Cooperative, No acute distress HEENT: Mucous membr. moist/pink Lungs: Clear to auscultation, Normal air movement Cardiovascular: Normal S1, Normal S2. denies: Regular rate, Murmurs Abdomen: Normal bowel sounds, Soft, Tenderness (mild tenderness with palpation RUQ and suprapubic). denies: Masses Extremities: denies: Clubbing, Cyanosis, Edema, Tenderness/swelling Skin: denies: Rashes (skin around catheter normal) - Results Results: Laboratory Results WBC 5.24 k/cumm (4.4-10.8) 03/01/18 06:42 RBC 4.28 m/cumm (4.50-6.00) L 03/01/18 06:42 Hgb 12.5 g/dL (13.5-17.5) L 03/01/18 06:42 Hct 39.8 % (40.0-50.0) L 03/01/18 06:42 MCV 93.0 fL (80-95) 03/01/18 06:42 MCH 29.2 pg (27.0-33.0) 03/01/18 06:42 MCHC 31.4 g/dL (32.0-36.0) L 03/01/18 06:42 RDW 15.8 % (11.8-14.1) H 03/01/18 06:42 Plt Count 161 x1000/uL (130-400) 03/01/18 06:42 MPV 10.5 fL (8.0-11.0) 03/01/18 06:42 Immature Gran % 0.4 03/01/18 06:42 Neutrophils % 60.8 03/01/18 06:42 Lymphocytes % 24.2 03/01/18 06:42 Monocytes % 11.3 03/01/18 06:42 Eosinophils % 3.1 03/01/18 06:42 Basophils % 0.2 03/01/18 06:42 Absolute Neutrophils 3.19 k/cumm (1.2-6.7) 03/01/18 06:42 Absolute Lymphocytes 1.27 k/cumm (1.2-3.4) 03/01/18 06:42 Absolute Monocytes 0.59 k/cumm (0.11-0.7) 03/01/18 06:42 Absolute Eosinophils 0.16 k/cumm (0.0-0.7) 03/01/18 06:42 Absolute Basophils 0.01 k/cumm (0.0-0.2) 03/01/18 06:42 Sodium 141 mmol/L (136-145) 03/01/18 06:42 Potassium 4.3 mmol/L (3.5-5.1) 03/01/18 06:42 Chloride 110 mmol/L (98-107) H 03/01/18 06:42 Carbon Dioxide 29.6 mmol/L (21.0-32.0) 03/01/18 06:42 Anion Gap 1.4 mmol/L (3-11) L 03/01/18 06:42 BUN 10 mg/dL (7-18) 03/01/18 06:42 Creatinine 1.10 mg/dL (0.70-1.30) 03/01/18 06:42 Estimated GFR/1.73 m2 >= 60.00 (mL/min/1.73m2) 03/01/18 06:42 Glucose 95 mg/dL (70-100) 03/01/18 06:42 Lactate 1.2 mmol/L (0.6-1.4) 03/01/18 06:42 Calcium 8.4 mg/dL (8.5-10.1) L 03/01/18 06:42 Magnesium 1.9 mg/dL (1.8-2.4) 02/24/18 17:45 Total Bilirubin 0.4 mg/dL (0.2-1.0) 03/01/18 06:42 Conjugated Bilirubin 0.23 mg/dL (0.00-0.20) H 02/28/18 14:03 AST 36 U/L (15-37) 03/01/18 06:42 ALT 101 U/L (12-78) H 03/01/18 06:42 Alkaline Phosphatase 143 U/L (46-116) H 03/01/18 06:42 Troponin I < 0.02 ng/mL (0.00-0.06) 02/24/18 17:45 Total Protein 6.0 g/dL (6.4-8.2) L 03/01/18 06:42 Albumin 2.6 g/dL (3.4-5.0) L 03/01/18 06:42 Amylase 33 U/L (25-115) 02/28/18 18:54 Lipase 91 U/L (73-393) 03/01/18 06:42 Urine Color Yellow (Yellow) 02/24/18 18:05 Urine Clarity Clear 02/24/18 18:05 Urine pH 6.0 (5-8) 02/24/18 18:05 Ur Specific [place] 1.010 (1.005-1.025) 02/24/18 18:05 Urine Protein Negative mg/dL (Negative) 02/24/18 18:05 Urine Ketones Negative mg/dL (Negative) 02/24/18 18:05 Urine Blood Trace-intact (Negative) H 02/24/18 18:05 Urine Nitrite Positive (Negative) H 02/24/18 18:05 Urine Bilirubin Negative (Negative) 02/24/18 18:05 Urine Urobilinogen 0.2 EU/dL (Up TO 0.2) 02/24/18 18:05 Ur Leukocyte Esterase Small (Negative) H 02/24/18 18:05 Urine RBC 0-2 (0-2) 02/24/18 18:05 Urine WBC 20-50 HPF (0-5) 02/24/18 18:05 Ur Epithelial Cells Rare HPF (Negative) 02/24/18 18:05 Urine Crystals Negative HPF (Negative) 02/24/18 18:05 Urine Bacteria Moderate HPF (Negative) 02/24/18 18:05 Urine Casts Negative LPF (Negative) 02/24/18 18:05 Urine Mucus Trace (Negative) 02/24/18 18:05 Ur Culture Indicated? Yes 02/24/18 18:05 Urine Glucose Negative mg/dL (Negative) 02/24/18 18:05
--- NOTE | 2018-03-01 11:54 | NUTRITION ---
Pt. has been NPO or clear liquids much of this admission. Will follow for progression to regular diet. He does eat well when he is offered food. BMI is 24.9 kg/m2 which is WNL. Will continue to monitor progress.
--- NOTE | 2018-03-01 13:05 | ROE_ITS ---
PROCEDURE NOTE DATE OF PROCEDURE March 01, 2018 INDICATIONS Chronic urinary retention. PROCEDURE Change suprapubic tube. HISTORY This is an 82-year-old gentleman who has a history of chronic urinary retention. He has his catheter changed every three to four weeks either in our office or by visiting nurses. He is currently hospitalized after an ERCP procedure at [facility]. He has some discomfort around the suprapubic site and I have been asked to change his catheter for him. PROCEDURE The patient was seen at the bedside. His catheter was inspected and identified as a #16-Indonesian 5 cc b alloon catheter. We instilled 50 cc of saline into the bladder, then, removed the suprapubic catheter . Prepped the suprapubic site and replaced the catheter with a new #16-Indonesian Kang. We inflated the balloon with 10 cc of sterile water and hooked the catheter to gravity drainage. He tolerated the pro cedure well. IMPRESSION Urinary retention. PLAN We will continue with catheter changes every three to four weeks.
--- NOTE | 2018-03-01 13:14 | PDOC.CMPRO ---
Date of Service: 03/01/18 Time of Service: 13:14 Care Management Progress Note S/O: Pt presented at interdisciplinary rounds. Dino is sitting in his recliner when CM visits this morning. He is engaged in conversation, makes good eye contact and is talkative. Dino continues to voice his request that he transfer to [facility] for a short term rehab stay for strengthening. Dino reports that he continues to have abdominal pain and believes that much of it is due to his suprapubic catheter needing changing. Dr. Hendricks will be changing the catheter later today. Pt is NPO at this time and will have his diet advanced to determine tolerance. LA NENA spoke with [facility] who remains willing to provide a bed for Dino when he is medically ready for discharge. A: 82 year old male admitted to [facility] 02/24/18 for acute choledocholithiasis P: Dino will transfer to [facility] for short term rehabilitation when medically ready per MD. He will transport via [facility] wheelchair van. LA NENA will continue to provide support to patient and care team regarding discharge planning and disposition.
--- NOTE | 2018-03-01 13:23 | CMPROGNOTE_ITS ---
Date of Service: 03/01/18 Time of Service: 13:14 Care Management Progress Note S/O: Pt presented at interdisciplinary rounds. Dino is sitting in his recliner when CM visits this morning. He is engaged in conversation, makes good eye contact and is talkative. Dino continues to voice his request that he transfer to [facility] for a short term rehab stay for strengthening. Dino reports that he continues to have abdominal pain and believes that much of it is due to his suprapubic catheter needing changing. Dr. Hendricks will be changing the catheter later today. Pt is NPO at this time and will have his diet advanced to determine tolerance. LA NENA spoke with [facility] who remains willing to provide a bed for Dino when he is medically ready for discharge. A: 82 year old male admitted to [facility] 02/24/18 for acute choledocholithiasis P: Dino will transfer to [facility] for short term rehabilitation when medically ready per MD. He will transport via [facility] wheelchair van. LA NENA will continue to provide support to patient and care team regarding discharge planning and disposition.
--- NOTE | 2018-03-01 15:20 | INPTTR_ITS ---
PHYSICAL THERAPY PROGRESS NOTE Date: 03/01/18 PRECAUTIONS: Fall precautions SUBJECTIVE: Pt sitting in chair watching TV, agreeable to PT session. States he feels cold. OBJECTIVE: General observation: R UE IV, puentes catheter PAIN: no c/o pain BED MOBILITY/TRANSFERS Sit-stand: supervision Stand-sit: supervision GAIT Assistive Device FWW Weightbearing as tolerated Assist: supervision Distance: 250ft Deviation step through gait pattern, steady stride and jose THEREX: seated ankle pumps 20x, long arc quad and hip flexion 10x ASSESSMENT: Pt mobilizing well with transfers and gait with FWW, progressed gait distance today. Pt stating he still feels weak and would like to go to rehab to improve his strength prior to return to home setting. PLAN: Progress strengthening Progress gait distance to 300ft TREATMENT CODES/TIME: 24min TAx1 TP x1 1520 Katrina Frankel PT
[2018-03-01] MEDS: Mirtazapine 15 MG TAB PO (22:18)
[2018-03-02 04:00] VITALS: BP 130/91; PULSE 57; RESP 17; TEMP 36.2; O2SAT 98
[2018-03-02] MEDS: Levothyroxine 75 MCG TAB PO (05:42)
[2018-03-02] MEDS: Normal Saline Flush 10 ML SYR IVP ×2 (05:43→08:28)
[2018-03-02 07:35] VITALS: BP 123/75; PULSE 68; RESP 17; TEMP 37.1; O2SAT 96
[2018-03-02] MEDS: Ursodiol 300 MG CAP PO (08:27)
[2018-03-02] MEDS: Pantoprazole 40 MG TABCR PO (08:28)
[2018-03-02] MEDS: ALPRAZolam 0.25 MG TAB PO (08:28)
[2018-03-02] MEDS: Docusate Sodium 100 MG CAP PO (08:28)
[2018-03-02] MEDS: Metoprolol 50 MG TAB PO (08:28)
--- NOTE | 2018-03-02 09:02 | INDS_ITS ---
PHYSICAL THERAPY INPATIENT DISCHARGE NOTE Date: 03/02/18 Dates of Service: 02/27/18-03/02/18 SUBJECTIVE: NT OBJECTIVE 02/27/18-03/02/18 TRANSFERS Sit-stand: supervision Stand-sit: supervision GAIT supervision with FWW 250ft BALANCE static sitting: normal dynamic sitting: normal static standing: good dynamic standing: fair ASSESSMENT: Pt was seen for 2 PT visits. Progressed from supervision gait with FWW [id number] to supervision gait with FWW 250ft. Pt is being transferred to [facility] for continued rehab. GOALS Goals x1 week 1. Supine-sit: supervision 2. Sit-Supine: supervision 3. Sit-Stand: supervision 4. Stand-sit: supervision 5. Bed-chair: supervision with WW 6. Chair-bed: supervision with WW 7. Gait: supervision x 300' with WW Pt met goals # 3, 4, recommend continued PT to meet remaining goals DISCHARGE RECOMMENDATIONS: [facility] G Codes in the area mobility of walking and moving around: current status_ projected status GP [id number] . Discharge status (if discharging) GP [id number] Frankel PT
[2018-03-02 09:34] VITALS: O2SAT 95
--- NOTE | 2018-03-02 09:39 | PDOC.CMDIS ---
Date of Service: 03/02/18 Time of Service: 09:39 LACE Index Scoring Tool - Questions: Length of Stay (in days): 7 - 13 Acuity (Admit via E.D.?): Yes Comorbidities: Chronic Pulmonary Disease E.D. Visits: 8 - Answers: Total Score: 14 Risk of Readmission: High Risk Care Management Discharge Reason for Hospitalization: Acute choledocholithiasis, diverticulitis. Discharge Plan: Dino will discharge when medically ready per MD. Pt will transfer to [facility] via [facility] w/c van for short term rehab. Patient/Family Education Needs: Review discharge instructions and any limitations. Ask Me Three discussion. Services Needed at Discharge: Custodial Facility ([facility])
--- NOTE | 2018-03-02 09:58 | CMDISCH_ITS ---
Date of Service: 03/02/18 Time of Service: 09:39 LACE Index Scoring Tool - Questions: Length of Stay (in days): 7 - 13 Acuity (Admit via E.D.?): Yes Comorbidities: Chronic Pulmonary Disease E.D. Visits: 8 - Answers: Total Score: 14 Risk of Readmission: High Risk Care Management Discharge Reason for Hospitalization: Acute choledocholithiasis, diverticulitis. Discharge Plan: Dino will discharge when medically ready per MD. Pt will transfer to [facility] via [facility] w/c van for short term rehab. Patient/Family Education Needs: Review discharge instructions and any limitations. Ask Me Three discussion. Services Needed at Discharge: Jail Facility ([facility])
--- NOTE | 2018-03-02 10:57 | DISCHARGE ---
Discharge - Discharge Orders Referrals: Lorena Chong [Primary Care Provider] - 03/18/18 11:35 am Other Amb Orders: Comprehensive Metabolic Panel [LAB] Time Frame: 1 Week, Location: Determined By Patient - Discharge Plan Disposition: SNF (LEVEL 1) [facility] Condition: Stable Diet:: low fat if possible Equipment/Supplies:: No Equipment Needed Activity:: per physical therapy recommendations - Instructions Micromedex Instructions: Gallstones (DC)
[2018-03-02 11:57] LABS: Campylobacter PCR SEE COMMENTS; Salmonella PCR SEE COMMENTS; Shiga Toxin PCR SEE COMMENTS; Shigella/Enteroinvasive Ecoli SEE COMMENTS
--- NOTE | 2018-03-02 12:08 | DSE_ITS ---
DISCHARGE SUMMARY DATE OF DISCHARGE March 02, 2018 DATE OF ADMISSION February 25, 2018 PRIMARY CARE PROVIDER Lorena Chong M.D. REASON FOR ADMISSION An 82-year-old man with chronic medical issues including COPD, atrial fibrillation, urinary retention with a suprapubic catheter and chronic low back pain who was admitted with progressive abdominal kris n. CAT scan on evaluation in the Emergency Room, showed small biliary stones, near the ampulla and dilat ed biliary system, along with elevated liver enzymes. He was admitted for choledocholithiasis with b iliary obstruction. HOSPITAL COURSE The patient was discussed with [facility] at admission, but they did not have a bed to acc ept the patient for ERCP initially. He was admitted here. He did not pass the stones on his own and on the , he was transferred down to [facility] for an ERCP with sphinct erotomy. By the next day, his pain had improved and his nausea had resolved. He was not given antibio tics as he did not have a fever or a white blood cell count elevation. His LFTs and bilirubin improv ed over the weekend. He was able to progress his diet. The patient did have acute worsening of abdominal pain on the . This pain was different from his presenting pain. CT of the abdomen and pelvis, as well as a CTA were done to access for complications from the surgery or ischemic bowel given his history. These were reassuring. His LFTs continued to improve, and his lipase was normal. This pain did improve after replacing his suprapubic catheter on the . He was again eating normally at the time of discharge. He did still have some loose stools on the of discharge. CARDIOVASCULAR - The patient has chronic atrial fibrillation. His Pradaxa was held prior to his ERCP. The plan was to restart it on March 03 to allow him to heal after sphincterotomy. His heart rate and blood pressure were well controlled. UROLOGIC - The patient has chronic indwelling suprapubic catheter. It was replaced on the , as it appeared to be causing some abdominal pain. Urinalysis was slightly abnormal, but his symptoms were not consistent with UTI and it was not treated. RESPIRATORY - The patient was continued on his chronic inhalers for his COPD, and was stable. SIGNIFICANT TEST RESULTS CT abdomen and pelvis 02/24/2018 showing new obstructing choledocholithiasis with two small stones, me asuring 3 mm in diameter or less in the distal common bile duct. New left basilar atelectasis versus consolidation. Chest x-ray 02/24/2018 showing minimal left basilar infiltrates. CT of the abdomen and pelvis 02/28/2018 showing mild stranding around the proximal duodenum. Status post cholecystectomy. No biliary duct dilatation. Chronic diverticulosis, but no evidence of d iverticulitis. Enlarged prostate gland with suprapubic catheter in place. Degenerative changes in the thoracolumbar spine. Small left pleural effusion and basilar infiltrates, atelectasis versus pneumonia or scarring. CTA of the abdomen and pelvis 02/28/2018 showing no acute abnormality. Atherosclerosis mid abdominal aorta and its tributaries. Marked high-grade stenosis of the right proximal common iliac artery. LABORATORY AST of 498 on admission, 36 on discharge. ALT of 446 on admission, 101 on the day prior to discharge. Alkaline phosphatase 243 on 02/25, 143 on 03/01. Bilirubin 1.7 on 02/25, 0.4 on 03/01. Clostridium difficile toxin antigens were negative. DISCHARGE DIAGNOSES 1. Choledocholithiasis with biliary obstruction, common bile duct, resolved status post ERCP. 2. Urinary obstruction, suprapubic catheter replaced 03/01/2018. 3. Peripheral vascular disease with iliac artery stenosis. OTHER DIAGNOSES 1. Chronic obstructive pulmonary disease, stable. 2. Chronic anxiety. 3. Atrial fibrillation, on anticoagulation. 4. Gastroesophageal reflux disease. 5. Hypothyroidism. DISCHARGE MEDICATIONS 1. Ursodiol 300 mg p.o. b.i.d. (new). 2. Levothyroxine 75 mcg p.o. daily. 3. Metoprolol 50 mg b.i.d. 4. Pantoprazole 40 mg p.o. daily. 5. Tiotropium 189 mcg inhaled daily. 6. Latanoprost eyedrops daily. 7. Fluticasone inhaled 110 mcg b.i.d. 8. Dabigatran 150 mg p.o. b.i.d. (held until 03/03/2018). 9. Alprazolam 0.25 mg p.o. b.i.d. 10. Albuterol inhaler 2 puffs inhaled q. 4 hours p.r.n. shortness of breath. 11. Mirtazapine 15 mg p.o. at bedtime. DISCHARGE PLAN The [facility] be [facility] care and rehabilitation. Pending lab tests fecal bacterial pathogen screen. As above, his anticoagulation should restart the day following discharge. On the morning of discharge, his abdomen had active bowel sounds and was soft with minimal tenderness in the right upper quadrant and suprapubic areas. It was not distended. Repeat LFTs should be done in a week or so. Condition on discharge is stable. 40 minutes was spent coordinating his discharge. CC: Lorena Chong M.D.
== END 2018-03-02 11:15 | disposition skilled nursing facility (03) | DRG 445 ==
LOC: ER 08-03 14:18 → MS 08-03 14:18
PROVIDERS: Internal Medicine; Nurse Practitioner Family; Admitting Provider Internal Medicine; Emergency Provider Emergency Medicine; PCP Family Medicine; Visit Provider Family Medicine
DX: K80.51 Calculus of bile duct without cholangitis or cholecystitis with obstruction (principal); J98.11 Atelectasis; R10.9 Unspecified abdominal pain; J44.9 Chronic obstructive pulmonary disease, unspecified; I48.91 Unspecified atrial fibrillation; Z93.51 Cutaneous-vesicostomy status; G89.29 Other chronic pain; M54.5 Low back pain; N40.1 Benign prostatic hyperplasia with lower urinary tract symptoms; R33.8 Other retention of urine; F41.9 Anxiety disorder, unspecified; K21.9 Gastro-esophageal reflux disease without esophagitis; E03.9 Hypothyroidism, unspecified; Z79.01 Long term (current) use of anticoagulants; F32.9 Major depressive disorder, single episode, unspecified; H40.9 Unspecified glaucoma; N18.9 Chronic kidney disease, unspecified; I12.9 Hypertensive chronic kidney disease with stage 1 through stage 4 chronic kidney disease, or unspecified chronic kidney disease; I48.2 Chronic atrial fibrillation; Z95.0 Presence of cardiac pacemaker; Z22.39 Carrier of other specified bacterial diseases; I73.9 Peripheral vascular disease, unspecified
CPT/HCPCS: 74174; 36415 ×6; 80048; 80053 ×6; 82150; 80076; 83735; 83690 ×4; 83605 ×4; 84484; 81015; 85025 ×7; 81003; 87077; 87324; 83630; 87086; 87505; 71046; 74177; 74176; 94640 ×11; 97530; 97110; 97162; 99285; 93010 ×2; J2270; 51705; 96361; 96374; 96375; 82272; 93005; 99222; 99232; J3490

== ENCOUNTER 2018-03-09 15:52 | Outpatient (REF) | payer MEDICARE, MEDICAID, SELFPAY ==
[2018-03-09 19:08] LABS: Anion Gap 7.5 mmol/L (3-11); BUN 22 mg/dL (7-18); CO2 26.5 mmol/L (21.0-32.0); Calcium 8.8 mg/dL (8.5-10.1); Chloride 106 mmol/L (98-107); Estimated GFR 52.98 (mL/min/1.73m2); Glucose 99 mg/dL (70-100); Potassium 3.8 mmol/L (3.5-5.1); Sodium 140 mmol/L (136-145)
== END 2018-03-09 16:12 ==
LOC: LBN 15:52
PROVIDERS: PCP Family Medicine; Visit Provider Family Medicine
DX: N18.9 Chronic kidney disease, unspecified (principal)
CPT/HCPCS: 80048

== ENCOUNTER 2018-03-30 10:53 | Emergency (ER) | payer MEDICARE, MEDICAID, SELFPAY ==
[2018-03-30] VITALS (18 sets, daily range): BP systolic 91–121; BP diastolic 44–74; PULSE 66–151; RESP 7–25; TEMP 36.8; O2SAT 93–99
--- NOTE | 2018-03-30 11:50 | W.ED.GENAD ---
Discharge Plan Disposition Patient Disposition: HOME Condition: Good Discharge Details Chief Complaint: RespSymp Clinical Impression: Acute bronchitis Primary Care Provider: Lorena Chong ED Provider: Hardy Frederick Home Meds and New Rx's Prescriptions: New doxycycline hyclate 100 mg capsule 100 mg PO BID 10 Days Qty: 20 RF: 0 Continue latanoprost 2.5 ML drops 1 drp OU HS RF: 0 brinzolamide [Azopt] 5 ML drops,suspension 1 drp OU DAILY RF: 0 metoprolol tartrate 50 MG tablet 75 mg PO BID Qty: 270 RF: 3 tiotropium bromide [Spiriva with HandiHaler] 18 MCG capsule, w/inhalation device 1 cap Inhalation DAILY RF: 0 nitroglycerin [Nitrostat] 0.4 MG tablet, sublingual 0.4 mg Sublingual Q5 MIN PRN X3 PRNQty: 60 RF: 0 potassium chloride [Klor-Con M20] 20 MEQ tablet,ER particles/crystals 20 meq PO DAILY AM Qty: 30 RF: 0 acetaminophen [Tylenol] 325 MG tablet 650 mg PO Q4H PRN PRNRF: 0 multivitamin with minerals [Multiple Vitamin-Minerals] 1 EACH tablet 1 tab PO DAILY RF: 0 mirtazapine [Remeron] 15 MG tablet 15 mg PO HS RF: 0 levothyroxine 75 MCG tablet 75 mcg PO DAILY@0600 RF: 0 cholecalciferol (vitamin D3) 1,000 UNITS tablet 1 tab PO Q30D RF: 0 bisacodyl 10 MG suppository 10 mg GA DAILY RF: 0 Fluticasone Propionate [24 Hour Allergy] 9.9 ML Roll.Susp 9.9 ml NS BID RF: 0 fluticasone [Flovent HFA] 120 PUFF HFA aerosol inhaler 2 puff Inhalation BID RF: 0 furosemide 20 MG tablet 40 mg PO DAILY RF: 0 albuterol sulfate 2.5 MG/3 ML solution for nebulization 3 ml IN Q4H PRN PRNRF: 0 pantoprazole 40 MG tablet,delayed release (DR/EC) 40 mg PO BID Qty: 0 RF: 0 ursodiol [Actigall] 300 MG capsule 300 mg PO BID RF: 0 dabigatran etexilate [Pradaxa] 75 MG capsule 150 mg PO BID Qty: 0 RF: 0 alprazolam 0.25 MG tablet 0.25 mg PO BID Qty: 60 RF: 0 Discharge Instructions Instructions: Acute Bronchitis (ED) Additional Instructions: Please begin the prescribed doxycycline for bronchitis. Do not take your multivitamin with this medication; do not start the previously prescribed Augmentin. Continue all other regular medications Please follow-up with [facility] for recheck next week Medical Decision Making 83-year-old male well-known to respiratory therapy for chronic obstructive pulmonary disease. He presents with complaints of cough and congestion today with referral by home health who sees him frequently. Patient was recent prescribed Augmentin which he did not fill. He arrives normotensive speaking in full sentences and with normal oxygenation. Patient given DuoNeb updraft, referred for EKG, laboratory testing and chest x-ray. Patient's diagnostics are reassuring. His CBCwith normal wbc , comprehensive panel reassuring with note of a depressed albumin. Chest x-ray is without acute findings. I will place the patient on a course of doxycycline as it is unclear why he did not start previously prescribed Augmentin. With the mild and increased creatinine I feel his renal function will better tolerate doxycycline. He is appropriate for discharge to home. He was evaluated by care management in the emergency department ECG Data Attestation: I personally reviewed and interpreted this ECG (s) as follows: Interpretation: Irregularly irregular rate of 98, QRS is narrow, there is no ST segment elevation HPI General Mode of arrival: ambulatory. Date/Time Provider Initiated Documentation: 03/30/18 11:08. Limitations to Documentation: no limitations. Information obtained by: patient. History of Present Illness 83 year old M presents to the emergency department with the chief complaint of Cough and congestion:, described as moderate, Quality is described as constant, and is localized to the chest. Patient started experiencing this day(s) and it has been constant. No relieving factors improve symptom(s), No exacerbating factors reported . HPI Narrative: 83-year-old male with COPD. States his last inhaler use was yesterday. He presents on referral from home health with days of cough and congestion, stating he did not fill the recently prescribed Augmentin as he did not know quite what it was for. Denies chest pain. He has had production of sputum that has been green. Related Data Home Medications Medication Instructions Recorded Confirmed tiotropium bromide [Spiriva with 1 cap INHALATION DAILY 11/08/12 02/24/18 HandiHaler] nitroglycerin [Nitrostat] 0.4 mg SUBLINGUAL Q5 MIN PRN X3 05/27/14 02/24/18 PRN #60 tab potassium chloride [Klor-Con M20] 20 meq PO DAILY AM #30 tabcr 07/18/15 02/24/18 brinzolamide [Azopt] 1 drp OU DAILY drp 09/30/15 02/24/18 latanoprost 1 drp OU HS drp 09/30/15 02/24/18 acetaminophen [Tylenol] 650 mg PO Q4H PRN PRN tab 11/25/15 02/24/18 mirtazapine [Remeron] 15 mg PO HS 03/04/16 02/24/18 multivitamin with minerals 1 tab PO DAILY 03/04/16 02/24/18 [Multiple Vitamin-Minerals] levothyroxine 75 mcg PO DAILY@0600 tab 04/13/16 02/24/18 fluticasone [Flovent HFA] 2 puff INHALATION BID inh 05/30/16 02/24/18 furosemide 40 mg PO DAILY 10/22/16 02/24/18 cholecalciferol (vitamin D3) 1 tab PO Q30D 08/01/17 02/24/18 albuterol sulfate 3 ml IN Q4H PRN PRN 10/22/17 02/24/18 metoprolol tartrate 75 mg PO BID #270 tab-cap 11/09/17 Fluticasone Propionate [24 Hour 9.9 ml NS BID 12/30/17 02/24/18 Allergy] bisacodyl 10 mg GA DAILY 12/30/17 02/24/18 pantoprazole 40 mg PO BID #0 02/28/18 02/24/18 alprazolam 0.25 mg PO BID #60 tablet 03/02/18 dabigatran etexilate [Pradaxa] 150 mg PO BID #0 cap 03/02/18 02/24/18 ursodiol [Actigall] 300 mg PO BID cap 03/02/18 doxycycline hyclate 100 mg PO BID 10 Days #20 cap 03/30/18 Previous Rx's Medication Instructions Recorded nitroglycerin [Nitrostat] 0.4 mg SUBLINGUAL Q5 MIN PRN X3 05/27/14 PRN #60 tab potassium chloride [Klor-Con M20] 20 meq PO DAILY AM #30 tabcr 07/18/15 acetaminophen [Tylenol] 650 mg PO Q4H PRN PRN tab 11/25/15 levothyroxine 75 mcg PO DAILY@0600 tab 04/13/16 fluticasone [Flovent HFA] 2 puff INHALATION BID inh 05/30/16 metoprolol tartrate 75 mg PO BID #270 tab-cap 11/09/17 pantoprazole 40 mg PO BID #0 02/28/18 alprazolam 0.25 mg PO BID #60 tablet 03/02/18 dabigatran etexilate [Pradaxa] 150 mg PO BID #0 cap 03/02/18 ursodiol [Actigall] 300 mg PO BID cap 03/02/18 doxycycline hyclate 100 mg PO BID 10 Days #20 cap 03/30/18 Allergies Allergy/AdvReac Type Severity Reaction Status Date / Time banana Allergy Mild Skin Rash Unverified 02/24/18 17:29 formoterol fumarate AdvReac Intermediate Ineffective Unverified 02/24/18 17:29 [From Dulera] per Pt mometasone furoate AdvReac Intermediate Ineffective Unverified 02/24/18 17:29 [From Dulera] per Pt hydrocodone AdvReac Unknown Dizziness/L Unverified 02/24/18 17:29 ightheade General Stated Complaint: RespSymp CINTIA: 3 Review of Systems Review of Systems 10 systems reviewed and otherwise negative [facility] Medical History Atrial fibrillation Chronic obstructive lung disease Diverticulosis of large intestine without diverticulitis Essential hypertension Glaucoma Insomnia Polyp of colon Spinal stenosis of lumbar region Tachycardia-bradycardia Social History Smoking/Tobacco Use Status: Former Tobacco Use Surgical History Colonoscopy - MAC Pacemaker Exam Narrative Exam Narrative: GEN: awake, alert, oriented 3. Pleasant, well groomed, interactive. HEAD: Normocephalic, atraumatic ENT: Mucous membranes moist, oropharynx unremarkable, External ear exam unremarkable EYES: PERRL, EOMI NECK: Full ROM, no PAULINO, no menigismus CHEST/RESP: Nontender, bilateral diminished breath sounds with few scattered rhonchi and wheeze CARDIOVASCULAR: Irregularly irregular, no murmur, rub stephani. 2+ Rad pulse bilateral ABDOMEN: Soft, nontender, no mass. +Bowel sounds EXT: Full ROM, no edema, no rash Neuro: Grossly normal neurologic exam, conversant, interactive. Psych: Speech fluent, thoughts congruent, affect normal Course Vital Signs Temperature 36.8 C 03/30/18 11:26 Pulse 82 03/30/18 11:26 Respiratory Rate 18 03/30/18 11:26 Blood Pressure 113/74 03/30/18 11:26 Pulse Oximetry 98 03/30/18 11:26 Temperature 36.8 C 03/30/18 11:26 Temperature Source Skin 03/30/18 11:26 Pulse 82 03/30/18 11:26 Respiratory Rate 18 03/30/18 11:26 Blood Pressure 113/74 03/30/18 11:26 Blood Pressure Position Sitting 03/30/18 11:26 Pulse Oximetry 98 03/30/18 11:26 Oxygen Delivery Method Room Air 03/30/18 11:26 Oxygen Flow Rate 0 03/30/18 11:26
--- NOTE | 2018-03-30 11:56 | ED.GENADUL_ITS ---
Discharge Plan Disposition Patient Disposition: HOME Condition: Good Discharge Details Chief Complaint: RespSymp Clinical Impression: Acute bronchitis Primary Care Provider: Lorena Chong ED Provider: Hardy Frederick Home Meds and New Rx's Prescriptions: New doxycycline hyclate 100 mg capsule 100 mg PO BID 10 Days Qty: 20 RF: 0 Continue latanoprost 2.5 ML drops 1 drp OU HS RF: 0 brinzolamide [Azopt] 5 ML drops,suspension 1 drp OU DAILY RF: 0 metoprolol tartrate 50 MG tablet 75 mg PO BID Qty: 270 RF: 3 tiotropium bromide [Spiriva with HandiHaler] 18 MCG capsule, w/inhalation device 1 cap Inhalation DAILY RF: 0 nitroglycerin [Nitrostat] 0.4 MG tablet, sublingual 0.4 mg Sublingual Q5 MIN PRN X3 PRNQty: 60 RF: 0 potassium chloride [Klor-Con M20] 20 MEQ tablet,ER particles/crystals 20 meq PO DAILY AM Qty: 30 RF: 0 acetaminophen [Tylenol] 325 MG tablet 650 mg PO Q4H PRN PRNRF: 0 multivitamin with minerals [Multiple Vitamin-Minerals] 1 EACH tablet 1 tab PO DAILY RF: 0 mirtazapine [Remeron] 15 MG tablet 15 mg PO HS RF: 0 levothyroxine 75 MCG tablet 75 mcg PO DAILY@0600 RF: 0 cholecalciferol (vitamin D3) 1,000 UNITS tablet 1 tab PO Q30D RF: 0 bisacodyl 10 MG suppository 10 mg [place] DAILY RF: 0 Fluticasone Propionate [24 Hour Allergy] 9.9 ML [place].Susp 9.9 ml NS BID RF: 0 fluticasone [Flovent HFA] 120 PUFF HFA aerosol inhaler 2 puff Inhalation BID RF: 0 furosemide 20 MG tablet 40 mg PO DAILY RF: 0 albuterol sulfate 2.5 MG/3 ML solution for nebulization 3 ml IN Q4H PRN PRNRF: 0 pantoprazole 40 MG tablet,delayed release (DR/EC) 40 mg PO BID Qty: 0 RF: 0 ursodiol [Actigall] 300 MG capsule 300 mg PO BID RF: 0 dabigatran etexilate [Pradaxa] 75 MG capsule 150 mg PO BID Qty: 0 RF: 0 alprazolam 0.25 MG tablet 0.25 mg PO BID Qty: 60 RF: 0 Discharge Instructions Instructions: Acute Bronchitis (ED) Additional Instructions: Please begin the prescribed doxycycline for bronchitis. Do not take your multivitamin with this medication; do not start the previously prescribed Augmentin. Continue all other regular medications Please follow-up with [facility] for recheck next week Medical Decision Making 83-year-old male well-known to respiratory therapy for chronic obstructive pulmonary disease. He presents with complaints of cough and congestion today with referral by home health who sees him frequently. Patient was recent prescribed Augmentin which he did not fill. He arrives normotensive speaking in full sentences and with normal oxygenation. Patient given DuoNeb updraft, referred for EKG, laboratory testing and chest x- ray. Patient's diagnostics are reassuring. His CBCwith normal wbc , comprehensive panel reassuring with note of a depressed albumin. Chest x-ray is without acute findings. I will place the patient on a course of doxycycline as it is unclear why he did not start previously prescribed Augmentin. With the mild and increased creatinine I feel his renal function will better tolerate doxycycline. He is appropriate for discharge to home. He was evaluated by care management in the emergency department ECG Data Attestation: I personally reviewed and interpreted this ECG (s) as follows: Interpretation: Irregularly irregular rate of 98, QRS is narrow, there is no ST segment elevation HPI General Mode of arrival: ambulatory . Date/Time Provider Initiated Documentation: 03/30/18 11:08 . Limitations to Documentation: no limitations . Information obtained by: patient . History of Present Illness 83 year old M presents to the emergency department with the chief complaint of Cough and congestion:, described as moderate, Quality is described as constant, and is localized to the chest. Patient started experiencing this day(s) and it has been constant. No relieving factors improve symptom(s), No exacerbating factors reported . HPI Narrative: 83-year-old male with COPD. States his last inhaler use was yesterday. He presents on referral from home health with days of cough and congestion, stating he did not fill the recently prescribed Augmentin as he did not know quite what it was for. Denies chest pain. He has had production of sputum that has been green. Related Data Home Medications Medication Instructions Recorded Confirmed tiotropium bromide [Spiriva with 1 cap INHALATION DAILY 11/08/12 02/24/18 HandiHaler] nitroglycerin [Nitrostat] 0.4 mg SUBLINGUAL Q5 MIN PRN X3 05/27/14 02/24/18 PRN #60 tab potassium chloride [Klor-Con M20] 20 meq PO DAILY AM #30 tabcr 07/18/15 02/24/18 brinzolamide [Azopt] 1 drp OU DAILY drp 09/30/15 02/24/18 latanoprost 1 drp OU HS drp 09/30/15 02/24/18 acetaminophen [Tylenol] 650 mg PO Q4H PRN PRN tab 11/25/15 02/24/18 mirtazapine [Remeron] 15 mg PO HS 03/04/16 02/24/18 multivitamin with minerals 1 tab PO DAILY 03/04/16 02/24/18 [Multiple Vitamin-Minerals] levothyroxine 75 mcg PO DAILY@0600 tab 04/13/16 02/24/18 fluticasone [Flovent HFA] 2 puff INHALATION BID inh 05/30/16 02/24/18 furosemide 40 mg PO DAILY 10/22/16 02/24/18 cholecalciferol (vitamin D3) 1 tab PO Q30D 08/01/17 02/24/18 albuterol sulfate 3 ml IN Q4H PRN PRN 10/22/17 02/24/18 metoprolol tartrate 75 mg PO BID #270 tab-cap 11/09/17 Fluticasone Propionate [24 Hour 9.9 ml NS BID 12/30/17 02/24/18 Allergy] bisacodyl 10 mg [place] DAILY 12/30/17 02/24/18 pantoprazole 40 mg PO BID #0 02/28/18 02/24/18 alprazolam 0.25 mg PO BID #60 tablet 03/02/18 dabigatran etexilate [Pradaxa] 150 mg PO BID #0 cap 03/02/18 02/24/18 ursodiol [Actigall] 300 mg PO BID cap 03/02/18 doxycycline hyclate 100 mg PO BID 10 Days #20 cap 03/30/18 Previous Rx's Medication Instructions Recorded nitroglycerin [Nitrostat] 0.4 mg SUBLINGUAL Q5 MIN PRN X3 05/27/14 PRN #60 tab potassium chloride [Klor-Con M20] 20 meq PO DAILY AM #30 tabcr 07/18/15 acetaminophen [Tylenol] 650 mg PO Q4H PRN PRN tab 11/25/15 levothyroxine 75 mcg PO DAILY@0600 tab 04/13/16 fluticasone [Flovent HFA] 2 puff INHALATION BID inh 05/30/16 metoprolol tartrate 75 mg PO BID #270 tab-cap 11/09/17 pantoprazole 40 mg PO BID #0 02/28/18 alprazolam 0.25 mg PO BID #60 tablet 03/02/18 dabigatran etexilate [Pradaxa] 150 mg PO BID #0 cap 03/02/18 ursodiol [Actigall] 300 mg PO BID cap 03/02/18 doxycycline hyclate 100 mg PO BID 10 Days #20 cap 03/30/18 Allergies Allergy/AdvReac Type Severity Reaction Status Date / Time banana Allergy Mild Skin Rash Unverified 02/24/18 17:29 formoterol fumarate AdvReac Intermediate Ineffective Unverified 02/24/18 17:29 [From Dulera] per Pt mometasone furoate AdvReac Intermediate Ineffective Unverified 02/24/18 17:29 [From Dulera] per Pt hydrocodone AdvReac Unknown Dizziness/L Unverified 02/24/18 17:29 ightheade General Stated Complaint: RespSymp CINTIA: 3 Review of Systems Review of Systems 10 systems reviewed and otherwise negative [facility] Medical History Atrial fibrillation Chronic obstructive lung disease Diverticulosis of large intestine without diverticulitis Essential hypertension Glaucoma Insomnia Polyp of colon Spinal stenosis of lumbar region Tachycardia-bradycardia Social History Smoking/Tobacco Use Status: Former Tobacco Use Surgical History Colonoscopy - MAC Pacemaker Exam Narrative Exam Narrative: GEN: awake, alert, oriented 3. Pleasant, well groomed, interactive. HEAD: Normocephalic, atraumatic ENT: Mucous membranes moist, oropharynx unremarkable, External ear exam unremarkable EYES: PERRL, EOMI NECK: Full ROM, no PAULINO, no menigismus CHEST/RESP: Nontender, bilateral diminished breath sounds with few scattered rhonchi and wheeze CARDIOVASCULAR: Irregularly irregular, no murmur, rub stephani. 2+ Rad pulse bilateral ABDOMEN: Soft, nontender, no mass. +Bowel sounds EXT: Full ROM, no edema, no rash Neuro: Grossly normal neurologic exam, conversant, interactive. Psych: Speech fluent, thoughts congruent, affect normal Course Vital Signs Temperature 36.8 C 03/30/18 11:26 Pulse 82 03/30/18 11:26 Respiratory Rate 18 03/30/18 11:26 Blood Pressure 113/74 03/30/18 11:26 Pulse Oximetry 98 03/30/18 11:26 Temperature 36.8 C 03/30/18 11:26 Temperature Source Skin 03/30/18 11:26 Pulse 82 03/30/18 11:26 Respiratory Rate 18 03/30/18 11:26 Blood Pressure 113/74 03/30/18 11:26 Blood Pressure Position Sitting 03/30/18 11:26 Pulse Oximetry 98 03/30/18 11:26 Oxygen Delivery Method Room Air 03/30/18 11:26 Oxygen Flow Rate 0 03/30/18 11:26
[2018-03-30] MEDS: Albuterol/Ipratropium 3 ML UPD VIAL UPD (12:08)
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
[2018-03-30 12:49] LABS: Abs Immature Grans 0.19 k/cumm (0.0-0.09); HCT 41.7 % (40.0-50.0); HGB 13.3 g/dL (13.5-17.5); Mean Corp. HGB Concentration 31.9 g/dL (32.0-36.0); Mean Corpuscular Hemoglobin 29.9 pg (27.0-33.0); Mean Corpuscular Volume 93.7 fL (80-95); Mean Platelet Volume 10.1 fL (8.0-11.0); Platelet Count 190 x1000/uL (130-400); RBC 4.45 m/cumm (4.50-6.00); RBC Distribution Width 15.9 % (11.8-14.1); White Blood Cell Count 7.72 k/cumm (4.4-10.8)
[2018-03-30 13:00] LABS: ALT 41 U/L (12-78); AST 32 U/L (15-37); Albumin 2.7 g/dL (3.4-5.0); Alkaline Phosphatase 112 U/L (46-116); Anion Gap 3.5 mmol/L (3-11); BUN 19 mg/dL (7-18); Bilirubin, Total 0.7 mg/dL (0.2-1.0); CO2 33.5 mmol/L (21.0-32.0); CREATININE 1.29 mg/dL (0.70-1.30); Calcium 8.4 mg/dL (8.5-10.1); Chloride 102 mmol/L (98-107); Estimated GFR 53.32 (mL/min/1.73m2); Glucose 82 mg/dL (70-100); Magnesium 2.2 mg/dL (1.8-2.4); Sodium 139 mmol/L (136-145); Total Protein 6.7 g/dL (6.4-8.2)
--- NOTE | 2018-03-30 13:03 | NUR.NOTE ---
Nursing Note: Patient taken off the conveyor monitor with permission of the provider.
[2018-03-30 13:10] LABS: Troponin I < 0.02 ng/mL (0.00-0.06)
[2018-03-30 13:38] LABS: Absolute Eosinophil Count 0.08 k/cumm (0.0-0.7); Absolute Monocyte Count 0.69 k/cumm (0.11-0.7)
[2018-03-30 13:39] LABS: Diff Comment Manual Differential; RBC Morphology Normal
--- NOTE | 2018-03-30 13:52 | PDOC.ERCMPRO ---
Care Management Progress Note 03/30/18-Pt seen for bronchitis by Dr. Armando Frederick. CM called Pt's neighbor,ED for a ride home.Ed returned call and states Geovany Simpson will be by to pick him up. ABX has been called into [facility]. Pt states he got his RX Messed up. He thought his abx was his potassium and his prednisone was his abx. [place] NE[place] spoke with Veronica Austin CM at Home Health to relay these concerns. She confirmed a RN will be out to his house tomorrow to pour his meds.
--- NOTE | 2018-03-30 14:02 | CMPROGNOTE_ITS ---
Care Management Progress Note 03/30/18-Pt seen for bronchitis by Dr. Armando Frederick. CM called Pt's neighbor,ED for a ride home.Ed returned call and states Geovany Simpson will be by to pick him up. ABX has been called into [facility]. Pt states he got his RX Messed up. He thought his abx was his potassium and his prednisone was his abx. [place] NENA spoke with Veronica Austin CM at Home Health to relay these concerns. She confirmed a RN will be out to his house tomorrow to pour his meds.
== END 2018-03-30 14:30 | disposition home or self-care (01) ==
PROVIDERS: Emergency Provider Emergency Medicine; PCP Family Medicine
DX: J20.9 Acute bronchitis, unspecified (principal); I10 Essential (primary) hypertension; J44.9 Chronic obstructive pulmonary disease, unspecified; Z87.891 Personal history of nicotine dependence
CPT/HCPCS: 36415; 80053; 93005; 94640; 99285; 71046; 83735; 84484; 85025; 93010; J7620

== ENCOUNTER 2018-04-14 16:29 | Emergency (ER) | payer MEDICARE, MEDICAID, SELFPAY ==
[2018-04-14 16:38] VITALS: BP 134/75; PULSE 132; RESP 22; TEMP 36.6; O2SAT 100
[2018-04-14 16:57] LABS: Abs Immature Grans 0.03 k/cumm (0.0-0.09); Absolute Basophil Count 0.04 k/cumm (0.0-0.2); Absolute Eosinophil Count 0.22 k/cumm (0.0-0.7); Absolute Lymphocyte Count 1.98 k/cumm (1.2-3.4); Absolute Monocyte Count 1.05 k/cumm (0.11-0.7); Absolute Neutrophil Count 4.37 k/cumm (1.2-6.7); Basophils % 0.5; Eosinophils % 2.9; HCT 43.2 % (40.0-50.0); HGB 13.8 g/dL (13.5-17.5); Immature Grans % 0.4; Lymphocytes % 25.7; Mean Corp. HGB Concentration 31.9 g/dL (32.0-36.0); Mean Corpuscular Hemoglobin 29.1 pg (27.0-33.0); Mean Corpuscular Volume 91.1 fL (80-95); Mean Platelet Volume 9.8 fL (8.0-11.0); Monocytes % 13.7; Neutrophils % 56.8; Platelet Count 264 x1000/uL (130-400); RBC 4.74 m/cumm (4.50-6.00); RBC Distribution Width 15.8 % (11.8-14.1); White Blood Cell Count 7.69 k/cumm (4.4-10.8)
--- NOTE | 2018-04-14 17:03 | W.ED.GENAD ---
Discharge Plan Disposition Patient Disposition: HOME Condition: Stable Discharge Details Chief Complaint: Chest Pain Clinical Impression: Atrial fibrillation with RVR Primary Care Provider: Lorena Chong ED Provider: Geovany Valencia [facility] Meds and New Rx's Prescriptions: Continue latanoprost 2.5 ML drops 1 drp OU HS RF: 0 brinzolamide [Azopt] 5 ML drops,suspension 1 drp OU DAILY RF: 0 metoprolol tartrate 50 MG tablet 75 mg PO BID Qty: 270 RF: 3 tiotropium bromide [Spiriva with HandiHaler] 18 MCG capsule, w/inhalation device 1 cap Inhalation DAILY RF: 0 nitroglycerin [Nitrostat] 0.4 MG tablet, sublingual 0.4 mg Sublingual Q5 MIN PRN X3 PRNQty: 60 RF: 0 potassium chloride [Klor-Con M20] 20 MEQ tablet,ER particles/crystals 20 meq PO DAILY AM Qty: 30 RF: 0 acetaminophen [Tylenol] 325 MG tablet 650 mg PO Q4H PRN PRNRF: 0 multivitamin with minerals [Multiple Vitamin-Minerals] 1 EACH tablet 1 tab PO DAILY RF: 0 mirtazapine [Remeron] 15 MG tablet 15 mg PO HS RF: 0 levothyroxine 75 MCG tablet 75 mcg PO DAILY@0600 RF: 0 cholecalciferol (vitamin D3) 1,000 UNITS tablet 1 tab PO Q30D RF: 0 bisacodyl 10 MG suppository 10 mg [place] DAILY RF: 0 Fluticasone Propionate [24 Hour Allergy] 9.9 ML [place].Susp 9.9 ml NS BID RF: 0 fluticasone [Flovent HFA] 120 PUFF HFA aerosol inhaler 2 puff Inhalation BID RF: 0 furosemide 20 MG tablet 40 mg PO DAILY RF: 0 albuterol sulfate 2.5 MG/3 ML solution for nebulization 3 ml IN Q4H PRN PRNRF: 0 pantoprazole 40 MG tablet,delayed release (DR/EC) 40 mg PO BID Qty: 0 RF: 0 ursodiol [Actigall] 300 MG capsule 300 mg PO BID RF: 0 dabigatran etexilate [Pradaxa] 75 MG capsule 150 mg PO BID Qty: 0 RF: 0 alprazolam 0.25 MG tablet 0.25 mg PO BID Qty: 60 RF: 0 Discharge Instructions Instructions: Atrial Fibrillation (ED) Discharge Data Discharge Physician: Geovany Valencia Medical Decision Making 83 yo male comes in with sob since around 11am. Denies chest pain on my exam or fevers, has had a dry cough that is non productive. Is noted to be in afib with rvr on exam which is likely causing his symptoms, will treat this and eval for ischemia and electrolyte abnormalities and anemia and obtain xray to eval for chf vs pneumonia as well pt's hr now in the 80s in afib, feels much better, awaiting labs and imaging labs and imaging shows no acute findings and he remains stable and walking without symptoms. Feel his symptoms was due to his afib, is stable for d/c at this time. He states he has f/u appt next week with pcp and return precautions given Differential Diagnosis afib with rvr, anemia, copd, chf Imaging Data Radiologic Study: Attestation: I personally reviewed and interpreted this imaging study as follows: Imaging: X-Ray My impression: no acute findings Radiologist's impression: no acute findings Lab Data Lab results reviewed: Yes I reviewed the patient's lab results. HPI General Mode of arrival: wheelchair. Date/Time Provider Initiated Documentation: 04/14/18 16:39. Limitations to Documentation: no limitations. Information obtained by: patient. History of Present Illness 83 year old M presents to the emergency department with the chief complaint of shortness of breath, described as moderate, with intensity rated at 5. No relieving factors improve symptom(s), No exacerbating factors reported . Patient did receive the following treatments prior to arrival, none Related Data Home Medications Medication Instructions Recorded Confirmed tiotropium bromide [Spiriva with 1 cap INHALATION DAILY 11/08/12 04/14/18 HandiHaler] nitroglycerin [Nitrostat] 0.4 mg SUBLINGUAL Q5 MIN PRN X3 05/27/14 04/14/18 PRN #60 tab potassium chloride [Klor-Con M20] 20 meq PO DAILY AM #30 tabcr 07/18/15 04/14/18 brinzolamide [Azopt] 1 drp OU DAILY drp 09/30/15 04/14/18 latanoprost 1 drp OU HS drp 09/30/15 04/14/18 acetaminophen [Tylenol] 650 mg PO Q4H PRN PRN tab 05/23/16 10/11/18 mirtazapine [Remeron] 15 mg PO HS 03/04/16 04/14/18 multivitamin with minerals 1 tab PO DAILY 03/04/16 04/14/18 [Multiple Vitamin-Minerals] levothyroxine 75 mcg PO DAILY@0600 tab 04/13/16 04/14/18 fluticasone [Flovent HFA] 2 puff INHALATION BID inh 05/30/16 04/14/18 furosemide 40 mg PO DAILY 10/22/16 04/14/18 cholecalciferol (vitamin D3) 1 tab PO Q30D 08/01/17 04/14/18 albuterol sulfate 3 ml IN Q4H PRN PRN 10/22/17 04/14/18 metoprolol tartrate 75 mg PO BID #270 tab-cap 11/09/17 04/14/18 Fluticasone Propionate [24 Hour 9.9 ml NS BID 12/30/17 04/14/18 Allergy] bisacodyl 10 mg [place] DAILY 12/30/17 04/14/18 pantoprazole 40 mg PO BID #0 02/28/18 04/14/18 alprazolam 0.25 mg PO BID #60 tablet 03/02/18 04/14/18 dabigatran etexilate [Pradaxa] 150 mg PO BID #0 cap 03/02/18 04/14/18 ursodiol [Actigall] 300 mg PO BID cap 03/02/18 04/14/18 Previous Rx's Medication Instructions Recorded nitroglycerin [Nitrostat] 0.4 mg SUBLINGUAL Q5 MIN PRN X3 05/27/14 PRN #60 tab potassium chloride [Klor-Con M20] 20 meq PO DAILY AM #30 tabcr 07/18/15 acetaminophen [Tylenol] 650 mg PO Q4H PRN PRN tab 11/25/15 levothyroxine 75 mcg PO DAILY@0600 tab 04/13/16 fluticasone [Flovent HFA] 2 puff INHALATION BID inh 05/30/16 metoprolol tartrate 75 mg PO BID #270 tab-cap 11/09/17 pantoprazole 40 mg PO BID #0 02/28/18 alprazolam 0.25 mg PO BID #60 tablet 03/02/18 dabigatran etexilate [Pradaxa] 150 mg PO BID #0 cap 03/02/18 ursodiol [Actigall] 300 mg PO BID cap 03/02/18 Allergies Allergy/AdvReac Type Severity Reaction Status Date / Time banana Allergy Mild Skin Rash Unverified 04/14/18 17:07 formoterol fumarate AdvReac Intermediate Ineffective Unverified 04/14/18 17:07 [From Dulera] per Pt mometasone furoate AdvReac Intermediate Ineffective Unverified 04/14/18 17:07 [From Dulera] per Pt hydrocodone AdvReac Unknown Dizziness/L Unverified 04/14/18 17:07 ightheade General Stated Complaint: Chest Pain CINTIA: 3 Review of Systems Review of Systems All systems reviewed & are unremarkable except as noted in HPI and below Constitutional Denies chills, Denies fever(s) and Denies weakness Eyes Denies loss of vision ENT Denies change in voice Cardiovascular Denies chest pain Gastrointestinal Denies abdominal pain, Denies nausea and Denies vomiting Genitourinary Denies dysuria Musculoskeletal Denies joint swelling Integumentary/Breasts Denies rash Neurologic Denies loss of vision and Denies weakness Psychiatric Denies depression Endocrine Denies cold intolerance and Denies heat intolerance Allergic/Immunologic Reports urticaria PFSH Medical History Atrial fibrillation Chronic obstructive lung disease Diverticulosis of large intestine without diverticulitis Essential hypertension Glaucoma Insomnia Polyp of colon Spinal stenosis of lumbar region Tachycardia-bradycardia Social History Smoking/Tobacco Use Status: Former Tobacco Use Surgical History Colonoscopy - MAC Pacemaker Exam Const General: no acute distress Orientation: alert HENMT Head: normal to inspection Ears: external ears normal General nose exam: external nose normal Mouth: moist mucous membranes Eyes General: appearance normal, both eyes and all related structures Neck Neck: normal visual inspection Resp Effort & Inspection: normal respiratory effort and able to speak in complete sentences Cardio Jugular venous pressure: no JVD Rate: tachycardic Rhythm: abnormal rhythm Skin General skin exam: no rashes or lesions noted Neuro General: alert and oriented x3 Extrem General: normal to inspection Psych Mental Status: mental status grossly normal Course Vital Signs Temperature 36.6 C 04/14/18 16:38 Pulse 132 H 04/14/18 16:38 Respiratory Rate 22 04/14/18 16:38 Blood Pressure 134/75 04/14/18 16:38 Pulse Oximetry 100 04/14/18 16:38 Temperature 36.6 C 04/14/18 16:38 Temperature Source Temporal Artery Scan 04/14/18 16:38 Pulse 132 H 04/14/18 16:38 Respiratory Rate 22 04/14/18 16:38 Respiratory Effort Labored 04/14/18 16:40 Respiratory Pattern Normal 04/14/18 16:40 Blood Pressure 134/75 04/14/18 16:38 Blood Pressure Position Sitting 04/14/18 16:38 Pulse Oximetry 100 04/14/18 16:38 Oxygen Delivery Method Room Air 04/14/18 16:38 Oxygen Flow Rate 0 04/14/18 16:38 Pain Level 10 04/14/18 16:38 Lab/Test Results Lab/Test Results: Laboratory Tests Range/Units 04/14/18 16:45 WBC (4.4-10.8) k/cumm 7.69 RBC (4.50-6.00) m/cumm 4.74 Hgb (13.5-17.5) g/dL 13.8 Hct (40.0-50.0) % 43.2 MCV (80-95) fL 91.1 MCH (27.0-33.0) pg 29.1 MCHC (32.0-36.0) g/dL 31.9 L RDW (11.8-14.1) % 15.8 H Plt Count (130-400) x1000/uL 264 MPV (8.0-11.0) fL 9.8 Immature Gran % 0.4 Neutrophils % 56.8 Lymphocytes % 25.7 Monocytes % 13.7 Eosinophils % 2.9 Basophils % 0.5 Absolute Neutrophils (1.2-6.7) k/cumm 4.37 Absolute Lymphocytes (1.2-3.4) k/cumm 1.98 Absolute Monocytes (0.11-0.7) k/cumm 1.05 H Absolute Eosinophils (0.0-0.7) k/cumm 0.22 Absolute Basophils (0.0-0.2) k/cumm 0.04 Critical Care Time Critical Care Time: Yes Total Critical Care Time: 45 (minutes) Attestation: time spent administering emilie blockers in patient with afib with rvr, and reviewing ecgs and lab work in a patient with potential to deteriorate at any tie
[2018-04-14 17:05] VITALS: BP 99/53; PULSE 101; RESP 18; TEMP 36.9; O2SAT 96
[2018-04-14 17:12] LABS: INR 1.3 (1.0-3.5); Prothrombin Time 12.8 sec (9.3-10.8)
[2018-04-14 17:26] LABS: ALT 20 U/L (12-78); AST 21 U/L (15-37); Albumin 3.1 g/dL (3.4-5.0); Alkaline Phosphatase 111 U/L (46-116); BUN 17 mg/dL (7-18); Bilirubin, Total 0.5 mg/dL (0.2-1.0); CREATININE 1.49 mg/dL (0.70-1.30); Calcium 9.1 mg/dL (8.5-10.1); Chloride 103 mmol/L (98-107); Estimated GFR 45.15 (mL/min/1.73m2); Glucose 83 mg/dL (70-100); Magnesium 2.1 mg/dL (1.8-2.4); NT-proBNP 3203 pg/mL; Potassium 4.5 mmol/L (3.5-5.1); Sodium 140 mmol/L (136-145); Total Protein 7.4 g/dL (6.4-8.2)
[2018-04-14 17:27] LABS: Troponin I < 0.02 ng/mL (0.00-0.06)
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
--- NOTE | 2018-04-14 18:09 | NUR.NOTE ---
Ambulated around the room as per self with cane. ED provider notified Nursing Note:
[2018-04-14 18:54] VITALS: BP 135/80; PULSE 88; RESP 18; TEMP 36.8; O2SAT 99
== END 2018-04-14 18:54 | disposition home or self-care (01) ==
LOC: ER 18:20
PROVIDERS: Emergency Provider Emergency Medicine; PCP Family Medicine
DX: I48.91 Unspecified atrial fibrillation (principal); I47.2 Ventricular tachycardia; J44.9 Chronic obstructive pulmonary disease, unspecified; Z87.891 Personal history of nicotine dependence; I10 Essential (primary) hypertension
CPT/HCPCS: 36415; 80053; 93005; 96374; 99285; 71046; 83735; 83880; 84484; 85025; 85610; 85730; 93010

== ENCOUNTER 2018-05-22 12:20 | Emergency (ER) | payer MEDICARE, MEDICAID, SELFPAY ==
[2018-05-22 12:38] VITALS: BP 126/80; PULSE 72; RESP 16; TEMP 36.5; O2SAT 99
--- NOTE | 2018-05-22 12:43 | DI.CT_ITS ---
SYMPTOM/DIAGNOSIS: CHEST AND ABDOMINAL PAIN, ? DISSECTION CT ANGIOGRAPHY CHEST, ABDOMEN, PELVIS: 05/22 CT angiography was performed with multi slice acquisition and multi planar and 3D reconstruction. CT angiography of the chest, abdomen and pelvis was performed with a bolus infusion of 100 cc Omnipaque 350. The lungs are clear. No pleural effusion. No mediastinal or hilar mass or adenopathy. Tracheobronchial tree appears intact. Thoracic aorta is of normal diameter and there is no evidence of dissection. No evidence of pulmonary embolic disease. Major arterial branches of the thoracic aorta appear normal. Abdominal aorta is of normal diameter and shows atheromatous plaque without evidence of dissection or aneurysm. Celiac trunk, SMA and WALI as well as the renal arteries show unremarkable appearance except for some atheromatous calcification. 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 Mild stenosis less than 50% luminal diameter of left common iliac artery. 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 Left internal iliac artery also appears to have atheromatous disease, mild stenosis less than 50% luminal diameter. The liver, spleen and pancreas are grossly unremarkable. Gallbladder has been surgically removed. No biliary dilatation seen. Bilateral renal cortical thinning noted with fairly homogeneous enhancement of the renal cortex on this arterial phased scan. Adrenals appear normal. No evidence of hydronephrosis or nephrolithiasis. Suprapubic urinary bladder catheter noted in position. Prostatic enlargement noted. No significant abdominal wall hernia is seen. No significant abdominal or pelvic adenopathy seen. Appendix appears normal and there is no evidence of diverticulitis or bowel obstruction. Transvenous cardiac pacemaker noted in position. CONCLUSION: No evidence of acute aortic dissection or aneurysm. Please see above report for details of additional findings.
--- NOTE | 2018-05-22 12:43 | W.ED.GENAD ---
Discharge Plan Disposition Patient Disposition: HOME Discharge Details Chief Complaint: Abd Prob Clinical Impression: Abdominal pain Reason For Visit: unknown medical Primary Care Provider: Lorena Chong ED Provider: Geovany Valencia Home Meds and New Rx's Prescriptions: No Action latanoprost 2.5 ML drops 1 drp OU HS RF: 0 brinzolamide [Azopt] 5 ML drops,suspension 1 drp OU DAILY RF: 0 metoprolol tartrate 50 MG tablet 75 mg PO BID Qty: 270 RF: 3 tiotropium bromide [Spiriva with HandiHaler] 18 MCG capsule, w/inhalation device 1 cap Inhalation DAILY RF: 0 nitroglycerin [Nitrostat] 0.4 MG tablet, sublingual 0.4 mg Sublingual Q5 MIN PRN X3 PRNQty: 60 RF: 0 potassium chloride [Klor-Con M20] 20 MEQ tablet,ER particles/crystals 20 meq PO DAILY AM Qty: 30 RF: 0 acetaminophen [Tylenol] 325 MG tablet 650 mg PO Q4H PRN PRNRF: 0 multivitamin with minerals [Multiple Vitamin-Minerals] 1 EACH tablet 1 tab PO DAILY RF: 0 mirtazapine [Remeron] 15 MG tablet 15 mg PO HS RF: 0 levothyroxine 75 MCG tablet 75 mcg PO DAILY@0600 RF: 0 cholecalciferol (vitamin D3) 1,000 UNITS tablet 1 tab PO Q30D RF: 0 bisacodyl 10 MG suppository 10 mg [place] DAILY RF: 0 Fluticasone Propionate [24 Hour Allergy] 9.9 ML [place].Susp 9.9 ml NS BID RF: 0 fluticasone [Flovent HFA] 120 PUFF HFA aerosol inhaler 2 puff Inhalation BID RF: 0 furosemide 20 MG tablet 40 mg PO DAILY RF: 0 albuterol sulfate 2.5 MG/3 ML solution for nebulization 3 ml IN Q4H PRN PRNRF: 0 pantoprazole 40 MG tablet,delayed release (DR/EC) 40 mg PO BID Qty: 0 RF: 0 ursodiol [Actigall] 300 MG capsule 300 mg PO BID RF: 0 dabigatran etexilate [Pradaxa] 75 MG capsule 150 mg PO BID Qty: 0 RF: 0 alprazolam 0.25 MG tablet 0.25 mg PO BID Qty: 60 RF: 0 Discharge Instructions Additional Instructions: Your lab work and cat scan did not show reasons for your leg weakness and abdominal pain You met with care management who are going to reach out to your care managers IF you have severe worsening of pain, difficulty breathing or persistent vomit return to the emergency department for reevaluation Medical Decision Making 83 yo male with hx of htn, afib, choledocholithiasis in February of this year tx'd via ercp in [facility], who comes in with 3 days of general weakness, abdominal pain and chest pain. He is not sure of anything that make it better or worse. His legs are both warm to touch and has palpable peripheral pulses. He has nondistended abdomen with diffuse tenderness throughout without guarding or rebound. 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 Awaiting imaging no acute findigns on CTA per Dr. Helms and he is tolerating PO and has duy bdominal tenderness now. HE is not sure if he has the strength to go home. Will try and see if he can ambulate with walker given no indication at this time of any process requiring admission pt states he felt weak using his walker, apparently had a fall a week ago. Will have care management meet with him to discuss options for him care management assistant met with pt and he has care takers daily, correctional case manager and nursing that helps him twice aa week and he wants to go home. restaurant district manager will reach out to his correctional case manager and will d/c home Differential Diagnosis pancreatitis, dissection, ischemia, general weakness, acs Imaging Data Radiologic Study: Attestation: I personally reviewed and interpreted this imaging study as follows: Imaging: CT Scan My impression: no acute findings on CTA thorax/abd/pelvis Radiologist's impression: no acute findings on CTA thorax/abd/pelvis Lab Data Lab results reviewed: Yes I reviewed the patient's lab results. ECG Data Attestation: I personally reviewed and interpreted this ECG (s) as follows: Prior ECG tracings: available for review Interpretation: atrial fibrillation, rate of 100, no acute st t wave changes HPI General Mode of arrival: ambulatory. Date/Time Provider Initiated Documentation: 05/22/18 12:33. Limitations to Documentation: no limitations. Information obtained by: patient. History of Present Illness 83 year old M presents to the emergency department with the chief complaint of abdominal pain, described as moderate, with intensity rated at 5. Quality is described as aching, and is localized to the abdomen. Patient started experiencing this day(s) (3) and it has been intermittent. No relieving factors improve symptom(s), No exacerbating factors reported . Patient notes chest pain. Patient did receive the following treatments prior to arrival, none Related Data Home Medications Medication Instructions Recorded Confirmed tiotropium bromide [Spiriva with 1 cap INHALATION DAILY 11/08/12 05/22/18 HandiHaler] nitroglycerin [Nitrostat] 0.4 mg SUBLINGUAL Q5 MIN PRN X3 05/27/14 04/14/18 PRN #60 tab potassium chloride [Klor-Con M20] 20 meq PO DAILY AM #30 tabcr 07/18/15 05/22/18 brinzolamide [Azopt] 1 drp OU DAILY drp 09/30/15 05/22/18 latanoprost 1 drp OU HS drp 09/30/15 05/22/18 acetaminophen [Tylenol] 650 mg PO Q4H PRN PRN tab 11/25/15 04/14/18 mirtazapine [Remeron] 15 mg PO HS 03/04/16 05/22/18 multivitamin with minerals 1 tab PO DAILY 03/04/16 05/22/18 [Multiple Vitamin-Minerals] levothyroxine 75 mcg PO DAILY@0600 tab 04/13/16 05/22/18 fluticasone [Flovent HFA] 2 puff INHALATION BID inh 05/30/16 05/22/18 furosemide 40 mg PO DAILY 10/22/16 05/22/18 cholecalciferol (vitamin D3) 1 tab PO Q30D 08/01/17 05/22/18 albuterol sulfate 3 ml IN Q4H PRN PRN 10/22/17 05/22/18 metoprolol tartrate 75 mg PO BID #270 tab-cap 11/09/17 05/22/18 Fluticasone Propionate [24 Hour 9.9 ml NS BID 12/30/17 05/22/18 Allergy] bisacodyl 10 mg [place] DAILY 12/30/17 05/22/18 pantoprazole 40 mg PO BID #0 02/28/18 05/22/18 alprazolam 0.25 mg PO BID #60 tablet 03/02/18 05/22/18 dabigatran etexilate [Pradaxa] 150 mg PO BID #0 cap 03/02/18 05/22/18 ursodiol [Actigall] 300 mg PO BID cap 03/02/18 05/22/18 Previous Rx's Medication Instructions Recorded nitroglycerin [Nitrostat] 0.4 mg SUBLINGUAL Q5 MIN PRN X3 05/27/14 PRN #60 tab potassium chloride [Klor-Con M20] 20 meq PO DAILY AM #30 tabcr 07/18/15 acetaminophen [Tylenol] 650 mg PO Q4H PRN PRN tab 11/25/15 levothyroxine 75 mcg PO DAILY@0600 tab 04/13/16 fluticasone [Flovent HFA] 2 puff INHALATION BID inh 05/30/16 metoprolol tartrate 75 mg PO BID #270 tab-cap 11/09/17 pantoprazole 40 mg PO BID #0 02/28/18 alprazolam 0.25 mg PO BID #60 tablet 03/02/18 dabigatran etexilate [Pradaxa] 150 mg PO BID #0 cap 03/02/18 ursodiol [Actigall] 300 mg PO BID cap 03/02/18 Allergies Allergy/AdvReac Type Severity Reaction Status Date / Time banana Allergy Mild Skin Rash Unverified 05/22/18 13:51 formoterol fumarate AdvReac Intermediate Ineffective Unverified 05/22/18 13:51 [From Dulera] per Pt mometasone furoate AdvReac Intermediate Ineffective Unverified 05/22/18 13:51 [From Dulera] per Pt hydrocodone AdvReac Unknown Dizziness/L Unverified 05/22/18 13:51 ightheade General Stated Complaint: Abd Prob CINTIA: 2 Review of Systems Review of Systems All systems reviewed & are unremarkable except as noted in HPI and below Constitutional Denies chills and Denies fever(s) Eyes Denies loss of vision ENT Denies change in voice Gastrointestinal Denies nausea and Denies vomiting Genitourinary Denies dysuria Musculoskeletal Denies joint swelling Integumentary/Breasts Denies rash Neurologic Denies loss of vision Endocrine Denies cold intolerance Exam Const General: no acute distress Orientation: alert [facility] Head: normal to inspection Ears: external ears normal General nose exam: external nose normal Mouth: moist mucous membranes Eyes General: appearance normal, both eyes and all related structures Neck Neck: normal visual inspection Resp Effort & Inspection: normal respiratory effort and able to speak in complete sentences Cardio Rate: regular rate GI Inspection: no abdominal wall ecchymosis and no visible herniation Skin General skin exam: no rashes or lesions noted Neuro General: alert and oriented x3 Extrem General: normal to inspection Psych Mental Status: mental status grossly normal Course Vital Signs Temperature 36.5 C 05/22/18 12:38 Pulse 72 05/22/18 12:38 Respiratory Rate 16 05/22/18 12:38 Blood Pressure 126/80 05/22/18 12:38 Pulse Oximetry 99 05/22/18 12:38 Temperature 36.5 C 05/22/18 12:38 Temperature Source Temporal Artery Scan 05/22/18 12:38 Pulse 72 05/22/18 12:38 Respiratory Rate 16 05/22/18 12:38 Respiratory Effort 05/22/18 12:40 Blood Pressure 126/80 05/22/18 12:38 Pulse Oximetry 99 05/22/18 12:38 Oxygen Delivery Method Room Air 05/22/18 12:38 Oxygen Flow Rate 0 05/22/18 12:38
--- NOTE | 2018-05-22 12:47 | ED.GENADUL_ITS ---
Discharge Plan Disposition Patient Disposition: HOME Discharge Details Chief Complaint: Abd Prob Clinical Impression: Abdominal pain Reason For Visit: unknown medical Primary Care Provider: Lorena Chong ED Provider: Geovany Valencia Home Meds and New Rx's Prescriptions: No Action latanoprost 2.5 ML drops 1 drp OU HS RF: 0 brinzolamide [Azopt] 5 ML drops,suspension 1 drp OU DAILY RF: 0 metoprolol tartrate 50 MG tablet 75 mg PO BID Qty: 270 RF: 3 tiotropium bromide [Spiriva with HandiHaler] 18 MCG capsule, w/inhalation device 1 cap Inhalation DAILY RF: 0 nitroglycerin [Nitrostat] 0.4 MG tablet, sublingual 0.4 mg Sublingual Q5 MIN PRN X3 PRNQty: 60 RF: 0 potassium chloride [Klor-Con M20] 20 MEQ tablet,ER particles/crystals 20 meq PO DAILY AM Qty: 30 RF: 0 acetaminophen [Tylenol] 325 MG tablet 650 mg PO Q4H PRN PRNRF: 0 multivitamin with minerals [Multiple Vitamin-Minerals] 1 EACH tablet 1 tab PO DAILY RF: 0 mirtazapine [Remeron] 15 MG tablet 15 mg PO HS RF: 0 levothyroxine 75 MCG tablet 75 mcg PO DAILY@0600 RF: 0 cholecalciferol (vitamin D3) 1,000 UNITS tablet 1 tab PO Q30D RF: 0 bisacodyl 10 MG suppository 10 mg [place] DAILY RF: 0 Fluticasone Propionate [24 Hour Allergy] 9.9 ML [place].Susp 9.9 ml NS BID RF: 0 fluticasone [Flovent HFA] 120 PUFF HFA aerosol inhaler 2 puff Inhalation BID RF: 0 furosemide 20 MG tablet 40 mg PO DAILY RF: 0 albuterol sulfate 2.5 MG/3 ML solution for nebulization 3 ml IN Q4H PRN PRNRF: 0 pantoprazole 40 MG tablet,delayed release (DR/EC) 40 mg PO BID Qty: 0 RF: 0 ursodiol [Actigall] 300 MG capsule 300 mg PO BID RF: 0 dabigatran etexilate [Pradaxa] 75 MG capsule 150 mg PO BID Qty: 0 RF: 0 alprazolam 0.25 MG tablet 0.25 mg PO BID Qty: 60 RF: 0 Discharge Instructions Additional Instructions: Your lab work and cat scan did not show reasons for your leg weakness and abdominal pain You met with care management who are going to reach out to your care managers IF you have severe worsening of pain, difficulty breathing or persistent vomit return to the emergency department for reevaluation Medical Decision Making 83 yo male with hx of htn, afib, choledocholithiasis in February of this year tx[place] [facility] who comes in with 3 days of general weakness, abdominal pain and chest pain. He is not sure of anything that make it better or worse. His legs are both warm to touch and has palpable peripheral pulses. He has nondistended abdomen with diffuse tenderness throughout without guarding or rebound. 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 Awaiting imaging no acute findigns on CTA per Dr. Helms and he is tolerating PO and has duy bdominal tenderness now. HE is not sure if he has the strength to go home. Will try and see if he can ambulate with walker given no indication at this time of any process requiring admission pt states he felt weak using his walker, apparently had a fall a week ago. Will have care management meet with him to discuss options for him child caregiver private home met with pt and he has care takers daily, returned case inspector and nursing that helps him twice aa week and he wants to go home. 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 ECG Data Attestation: I personally reviewed and interpreted this ECG (s) as follows: Prior ECG tracings: available for review Interpretation: atrial fibrillation, rate of 100, no acute st t wave changes HPI General Mode of arrival: ambulatory . Date/Time Provider Initiated Documentation: 05/22/18 12:33 . Limitations to Documentation: no limitations . Information obtained by: patient . History of Present Illness 83 year old M presents to the emergency department with the chief complaint of abdominal pain, described as moderate, with intensity rated at 5. Quality is described as aching, and is localized to the abdomen. Patient started experiencing this day(s) (3) and it has been intermittent. No relieving factors improve symptom(s), No exacerbating factors reported . Patient notes chest pain. Patient did receive the following treatments prior to arrival, none Related Data Home Medications Medication Instructions Recorded Confirmed tiotropium bromide [Spiriva with 1 cap INHALATION DAILY 11/08/12 05/22/18 HandiHaler] nitroglycerin [Nitrostat] 0.4 mg SUBLINGUAL Q5 MIN PRN X3 05/27/14 04/14/18 PRN #60 tab potassium chloride [Klor-Con M20] 20 meq PO DAILY AM #30 tabcr 07/18/15 05/22/18 brinzolamide [Azopt] 1 drp OU DAILY drp 09/30/15 05/22/18 latanoprost 1 drp OU HS drp 09/30/15 05/22/18 acetaminophen [Tylenol] 650 mg PO Q4H PRN PRN tab 11/25/15 04/14/18 mirtazapine [Remeron] 15 mg PO HS 03/04/16 05/22/18 multivitamin with minerals 1 tab PO DAILY 03/04/16 05/22/18 [Multiple Vitamin-Minerals] levothyroxine 75 mcg PO DAILY@0600 tab 04/13/16 05/22/18 fluticasone [Flovent HFA] 2 puff INHALATION BID inh 05/30/16 05/22/18 furosemide 40 mg PO DAILY 10/22/16 05/22/18 cholecalciferol (vitamin D3) 1 tab PO Q30D 08/01/17 05/22/18 albuterol sulfate 3 ml IN Q4H PRN PRN 10/22/17 05/22/18 metoprolol tartrate 75 mg PO BID #270 tab-cap 11/09/17 05/22/18 Fluticasone Propionate [24 Hour 9.9 ml NS BID 12/30/17 05/22/18 Allergy] bisacodyl 10 mg [place] DAILY 12/30/17 05/22/18 pantoprazole 40 mg PO BID #0 02/28/18 05/22/18 alprazolam 0.25 mg PO BID #60 tablet 03/02/18 05/22/18 dabigatran etexilate [Pradaxa] 150 mg PO BID #0 cap 03/02/18 05/22/18 ursodiol [Actigall] 300 mg PO BID cap 03/02/18 05/22/18 Previous Rx's Medication Instructions Recorded nitroglycerin [Nitrostat] 0.4 mg SUBLINGUAL Q5 MIN PRN X3 05/27/14 PRN #60 tab potassium chloride [Klor-Con M20] 20 meq PO DAILY AM #30 tabcr 07/18/15 acetaminophen [Tylenol] 650 mg PO Q4H PRN PRN tab 11/25/15 levothyroxine 75 mcg PO DAILY@0600 tab 04/13/16 fluticasone [Flovent HFA] 2 puff INHALATION BID inh 05/30/16 metoprolol tartrate 75 mg PO BID #270 tab-cap 11/09/17 pantoprazole 40 mg PO BID #0 02/28/18 alprazolam 0.25 mg PO BID #60 tablet 03/02/18 dabigatran etexilate [Pradaxa] 150 mg PO BID #0 cap 03/02/18 ursodiol [Actigall] 300 mg PO BID cap 03/02/18 Allergies Allergy/AdvReac Type Severity Reaction Status Date / Time banana Allergy Mild Skin Rash Unverified 05/22/18 13:51 formoterol fumarate AdvReac Intermediate Ineffective Unverified 05/22/18 13:51 [From Dulera] per Pt mometasone furoate AdvReac Intermediate Ineffective Unverified 05/22/18 13:51 [From Dulera] per Pt hydrocodone AdvReac Unknown Dizziness/L Unverified 05/22/18 13:51 ightheade General Stated Complaint: Abd Prob CINTIA: 2 Review of Systems Review of Systems All systems reviewed & are unremarkable except as noted in HPI and below Constitutional Denies chills and Denies fever(s) Eyes Denies loss of vision ENT Denies change in voice Gastrointestinal Denies nausea and Denies vomiting Genitourinary Denies dysuria Musculoskeletal Denies joint swelling Integumentary/Breasts Denies rash Neurologic Denies loss of vision Endocrine Denies cold intolerance Exam Const General: no acute distress Orientation: alert [facility] Head: normal to inspection Ears: external ears normal General nose exam: external nose normal Mouth: moist mucous membranes Eyes General: appearance normal, both eyes and all related structures Neck Neck: normal visual inspection Resp Effort & Inspection: normal respiratory effort and able to speak in complete sentences Cardio Rate: regular rate GI Inspection: no abdominal wall ecchymosis and no visible herniation Skin General skin exam: no rashes or lesions noted Neuro General: alert and oriented x3 Extrem General: normal to inspection Psych Mental Status: mental status grossly normal Course Vital Signs Temperature 36.5 C 05/22/18 12:38 Pulse 72 05/22/18 12:38 Respiratory Rate 16 05/22/18 12:38 Blood Pressure 126/80 05/22/18 12:38 Pulse Oximetry 99 05/22/18 12:38 Temperature 36.5 C 05/22/18 12:38 Temperature Source Temporal Artery Scan 05/22/18 12:38 Pulse 72 05/22/18 12:38 Respiratory Rate 16 05/22/18 12:38 Respiratory Effort 05/22/18 12:40 Blood Pressure 126/80 05/22/18 12:38 Pulse Oximetry 99 05/22/18 12:38 Oxygen Delivery Method Room Air 05/22/18 12:38 Oxygen Flow Rate 0 05/22/18 12:38
[2018-05-22 13:13] LABS: Lactate-non-spesis 1.2 mmol/L (0.6-1.4)
[2018-05-22 13:17] LABS: Abs Immature Grans 0.02 k/cumm (0.0-0.09); Absolute Basophil Count 0.03 k/cumm (0.0-0.2); Absolute Eosinophil Count 0.11 k/cumm (0.0-0.7); Absolute Lymphocyte Count 1.68 k/cumm (1.2-3.4); Absolute Monocyte Count 0.62 k/cumm (0.11-0.7); Basophils % 0.5; Eosinophils % 1.9; HCT 43.9 % (40.0-50.0); HGB 13.9 g/dL (13.5-17.5); Immature Grans % 0.3; Lymphocytes % 28.7; Mean Corp. HGB Concentration 31.7 g/dL (32.0-36.0); Mean Corpuscular Hemoglobin 29.3 pg (27.0-33.0); Mean Corpuscular Volume 92.6 fL (80-95); Mean Platelet Volume 10.1 fL (8.0-11.0); Monocytes % 10.6; Platelet Count 202 x1000/uL (130-400); RBC 4.74 m/cumm (4.50-6.00); RBC Distribution Width 16.6 % (11.8-14.1); White Blood Cell Count 5.86 k/cumm (4.4-10.8)
[2018-05-22] MEDS: fentaNYL 100 MCG/2 ML VIAL 50 MCG IVP (13:28)
[2018-05-22] MEDS: Normal Saline 1,000 ML 1000 ML IV (13:29)
[2018-05-22 13:30] LABS: PTT Activated 41.2 sec (21.0-31.4)
[2018-05-22 13:31] LABS: INR 1.4 (1.0-3.5)
[2018-05-22 13:36] LABS: ALT 23 U/L (12-78); AST 28 U/L (15-37); Albumin 3.4 g/dL (3.4-5.0); Alkaline Phosphatase 118 U/L (46-116); BUN 18 mg/dL (7-18); Bilirubin, Direct 0.19 mg/dL (0.00-0.20); Bilirubin, Total 0.5 mg/dL (0.2-1.0); CREATININE 1.42 mg/dL (0.70-1.30); Chloride 104 mmol/L (98-107); Estimated GFR 47.73 (mL/min/1.73m2); Glucose 98 mg/dL (70-100); Lipase 89 U/L (73-393); Magnesium 2.2 mg/dL (1.8-2.4); NT-proBNP 3475 pg/mL; Potassium 4.5 mmol/L (3.5-5.1); Sodium 143 mmol/L (136-145); Total Protein 7.4 g/dL (6.4-8.2)
[2018-05-22 13:38] LABS: Bilirubin Negative (Negative); Blood Trace-intact (Negative); Clarity Clear; Glucose Negative (Negative); Ketones Negative (Negative); Leukocyte Esterase Trace (Negative); Nitrite Positive (Negative); Urobilinogen 0.2 EU/dL (Up TO 0.2)
[2018-05-22 13:39] LABS: Troponin I < 0.02 ng/mL (0.00-0.06)
[2018-05-22 13:49] VITALS: BP 114/69; PULSE 104; RESP 16; TEMP 37.7; O2SAT 98
[2018-05-22 13:49] LABS: Bacteria Moderate HPF (Negative); C & S Indicated? Yes; Casts Negative LPF (Negative); Crystals Negative HPF (Negative); Epithelial Cells Rare HPF (Negative); Mucus Trace (Negative)
[2018-05-22] MEDS: Omnipaque 350 MG/ML 100 ML BTL IJ (14:32)
[2018-05-22 14:43] VITALS: BP 112/66; PULSE 110; RESP 18; TEMP 36.5; O2SAT 97
--- NOTE | 2018-05-22 16:42 | PDOC.ERCMPRO ---
- If Service Date Differs Date of service: 05/22/18 Time of Service: 16:43 Care Management Progress Note Per request of ER staff, LA NENA met with Dino prior to his discharge from the ER for abdominal problems. ER staff were reportedly concerned about Dino's plan for discharge. Dino lives alone and is familiar to this CM. He reportedly has daily caregivers who assist him with bathing and cleaning, and nursing through [facility] who visit 1-2x/week. He works with Aspen ([facility] at [place]. Dino has MOW 2x/week and several neighbors who keep an eye on him. Dino continues to be adamant that he will not be going to a long term because he has a home but that he would consider a short term SNF stay so that he can increase his strength and return to his baseline. He reports that he uses a walker with seat but that he is not feeling as strong as he has in the past. Dino reports that he feels safe returning home this evening and has verbalized permission for LA NENA to contact his manager of case management in the community ([facility]en at [facility]) regarding possible rehab options, and his neighbor, Ed, should additional information be needed. . LA NENA left a voice message for Aspen at [place] and will follow up with her on Wednesday, 05/23. LA NENA arranged for [facility] to deliver Dino from the hospital to home.
--- NOTE | 2018-05-22 17:07 | CMPROGNOTE_ITS ---
- If Service Date Differs Date of service: 05/22/18 Time of Service: 16:43 Care Management Progress Note Per request of ER staff, LA NENA met with Dino prior to his discharge from the ER for abdominal problems. ER staff were reportedly concerned about Dino's plan for discharge. Dino lives alone and is familiar to this CM. He reportedly has daily caregivers who assist him with bathing and cleaning, and nursing through [facility] who visit 1-2x/week. He works with Aspen ([facility]) at [place]. Dino has MOW 2x/week and several neighbors who keep an eye on him. Dino continues to be adamant that he will not be going to a penitentiary because he has a home but that he would consider a short term SNF stay so that he can increase his strength and return to his baseline. He reports that he uses a walker with seat but that he is not feeling as strong as he has in the past. Dino reports that he feels safe returning home this evening and has verbalized permission for LA NENA to contact his housing case manager in the community ([facility] at [facility]) regarding possible rehab options, and his neighbor, Ed, should additional information be needed. . LA NENA left a voice message for Aspen at [place] and will follow up with her on Wednesday , 05/23. LA NENA arranged for [facility] to deliver Dino from the hospital to home.
== END 2018-05-22 17:50 | disposition home or self-care (01) ==
PROVIDERS: Emergency Provider Emergency Medicine; PCP Family Medicine
DX: R10.9 Unspecified abdominal pain (principal); R07.9 Chest pain, unspecified; R53.1 Weakness; I10 Essential (primary) hypertension; I48.91 Unspecified atrial fibrillation
CPT/HCPCS: 36415; 71275; 74175; 80053; 80076; 83690; 96361; 96374; 99285; 81003; 81015; 83605; 83735; 83880; 84484; 85025; 85610; 85730; 87086; J3010; J3490

== ENCOUNTER 2018-07-10 13:02 | Emergency (ER) | payer MEDICARE, MEDICAID, SELFPAY ==
[2018-07-10] VITALS (36 sets, daily range): BP systolic 82–107; BP diastolic 35–61; PULSE 57–180; RESP 12–28; TEMP 36.6–36.8; O2SAT 94–99
--- NOTE | 2018-07-10 13:14 | W.ED.GENAD ---
Discharge Plan Disposition Patient Disposition: HOME Condition: Fair Discharge Details Chief Complaint: Chest Pain Clinical Impression: Chest pain Reason For Visit: RYANN Primary Care Provider: Lorena Chong ED Provider: Andreea Alatorre Home Meds and New Rx's Prescriptions: Continued latanoprost 2.5 ML drops 1 drp OU HS RF: 0 brinzolamide [Azopt] 5 ML drops,suspension 1 drp OU DAILY RF: 0 metoprolol tartrate 50 MG tablet 75 mg PO BID Qty: 270 RF: 3 tiotropium bromide [Spiriva with HandiHaler] 18 MCG capsule, w/inhalation device 1 cap Inhalation DAILY RF: 0 nitroglycerin [Nitrostat] 0.4 MG tablet, sublingual 0.4 mg Sublingual Q5 MIN PRN X3 PRNQty: 60 RF: 0 potassium chloride [Klor-Con M20] 20 MEQ tablet,ER particles/crystals 20 meq PO DAILY AM Qty: 30 RF: 0 acetaminophen [Tylenol] 325 MG tablet 650 mg PO Q4H PRN PRNRF: 0 multivitamin with minerals [Multiple Vitamin-Minerals] 1 EACH tablet 1 tab PO DAILY RF: 0 mirtazapine [Remeron] 15 MG tablet 15 mg PO HS RF: 0 levothyroxine 75 MCG tablet 75 mcg PO DAILY@0600 RF: 0 cholecalciferol (vitamin D3) 1,000 UNITS tablet 1 tab PO Q30D RF: 0 bisacodyl 10 MG suppository 10 mg ND DAILY RF: 0 Fluticasone Propionate [24 Hour Allergy] 9.9 ML [place].Susp 9.9 ml NS BID RF: 0 fluticasone [Flovent HFA] 120 PUFF HFA aerosol inhaler 2 puff Inhalation BID RF: 0 furosemide 20 MG tablet 40 mg PO DAILY RF: 0 albuterol sulfate 2.5 MG/3 ML solution for nebulization 3 ml IN Q4H PRN PRNRF: 0 pantoprazole 40 MG tablet,delayed release (DR/EC) 40 mg PO BID Qty: 0 RF: 0 ursodiol [Actigall] 300 MG capsule 300 mg PO BID RF: 0 dabigatran etexilate [Pradaxa] 75 MG capsule 150 mg PO BID Qty: 0 RF: 0 alprazolam 0.25 MG tablet 0.25 mg PO BID Qty: 60 RF: 0 Discharge Instructions Instructions: Chest Pain (ED) Additional Instructions: Encourage hydration. Continue with medications as previously prescribed. Labs and imaging are reassuring at this time with no evidence of problems with your heart. This is likely associated with your cough yesterday and your recent rib fractures. If you develop shortness of breath, difficulty breathing, fevers/chills, increased pain or other new/worsening symptoms please seek care urgently once again. Please folow up with primary care next week for reevaluation. Referrals: Lorena Chong [Primary Care Provider] - Discharge Data Discharge Date/Time-TO BE ENTERED AT DEPARTURE: 07/10/18 17:15 Medical Decision Making Patient 83-year-old male, brought in via EMS, with chief complaint of left lower chest pain. Reports the pain began yesterday and is progressively been worsening throughout the course today. Reports the pain is over area of recently fractured ribs. States that yesterday he was sedentary but was coughing frequently which may have exacerbated this discomfort. Pain is easily reproducible on exam. He is primarily sedentary at home, has not exerted himself at all. Pain is much exacerbated with cough and deep inspiration. He denies any fevers or chills. Denies any nausea vomiting. No change in bowel habits. Patient endorses chronic abdominal pain she reports is unchanged. Pain does not radiate into the back. Denies any productive cough, no congestion, rhinorrhea. On exam, lungs are clear. Patient is noted to be irregularly irregular, consistent with his history of atrial fibrillation. Pain is easily reproducible over the anterior aspect of the #8, 9 and 10 ribs. No deformity, no rash, no discoloration. No pain with palpation in the left upper quadrant of the abdomen. Patient appears nontoxic and afebrile. Blood pressure slightly low at 102/52 which is not outside the realm of normal for this patient. Patient does appear dehydrated on exam. Patient has history of atrial fibrillation, anemia, anxiety, BPH, CHF, COPD, diverticulitis, glaucoma, hypertension, hypothyroidism, kidney stones, venous insufficiency, tachybradycardia syndrome. Patient is status post lithotripsy, TURP, pacer/defib insertion. Patient reports he has home nursing care, unsure what meds he has been taking or when he took them last. States that he has taken the medications laid out by his home nurse. Patient's pain seems primarily musculoskeletal and likely associate with his recent rib fractures. Most likely exacerbated yesterday when he says he was coughing while lying in bed. Lungs are clear on exam. He denies any other URI symptoms. Will obtain x-ray to evaluate for any pneumonia, pneumothorax or other unusual etiology. Also obtain laboratory evaluation and EKG. Symptoms do not sound cardiac in nature but will evaluate for possible ACS although I find this unlikely. Also obtain a lipase given the patient's location. He does not have any left upper quadrant pain given the proximity also evaluate for possible pancreatitis. Pulse 71, irregular, afebrile, O2 99%RA. EKG reviewed by Dr. Obrien Is noted to be irregularly irregular with rate of about 94. Advised no acute ischemic changes noted on x-ray, EKG consistent with previous diagnosis of atrial fibrillation CXR reviewed by radiologist: FINDINGS: Tubes, catheters and devices: Stable transvenous pacemaker leads Lungs: Hyperexpanded lung antonio consistent with COPD. No focal consolidation. Pleural space: Unremarkable. No pleural effusion. No pneumothorax. Heart/Mediastinum: Cardiomegaly Bones/joints: [place] is seen in the soft tissues of the left shoulder and neck. This was present on the prior study. Osseous structures are stable IMPRESSION: 1. Hyperexpanded lung antonio consistent with COPD. 2. No focal consolidation. Creatinine 1.54, he has been elevated historically, was last 1.42 on 05/22/18. BUN 24. Patient receiving hydration, he does appear dry on exam. REprots he drinks large amount of juice daily. Troponin 0.02. As it has been >24 hours since pain began, repeat troponin is not warranted at this time. WBC normal. As symptoms began 24 hours ago, is readily reproducible on exam with reassuring imaging and labs, I advise this is likely exacerbation of pain he has been experiencing with his recent rib fracture per patient report. He states that this is the area where his previous trauma was. Was coughing yesterday, again no evidence of bacterial infection at this time. Advised that cough is likely what exacerbated his discomfort. Encouraged home remedies and OTC medication to help with discomfort. Advised splinting techniques. Encouraged deep breathing, encouraged hydration. ADvised f/u with PCP for reevaluation. He was given strict return precautions. All of his quesitons and concerns were addressed, he is in agrement with this plan. HPI General Mode of arrival: EMS. Date/Time Provider Initiated Documentation: 07/10/18 13:11. Limitations to Documentation: no limitations. Information obtained by: patient and EMS. History of Present Illness 83 year old M presents to the emergency department with the chief complaint of left chest pain, described as moderate, Quality is described as stabbing, and is localized to the chest. Patient reports no radiation. Patient started experiencing this day(s) and it has been intermittent. Immobilization improves symptom(s), Movement worsens symptoms . Patient notes chest pain, cough and nausea/vomiting; denies diaphoresis, fever/chills, headaches, loss of appetite, rash, shortness of breath and syncope. Patient did receive the following treatments prior to arrival, none Related Data Home Medications Medication Instructions Recorded Confirmed tiotropium bromide [Spiriva with 1 cap INHALATION DAILY 11/08/12 05/22/18 HandiHaler] nitroglycerin [Nitrostat] 0.4 mg SUBLINGUAL Q5 MIN PRN X3 05/27/14 04/14/18 PRN #60 tab potassium chloride [Klor-Con M20] 20 meq PO DAILY AM #30 tabcr 07/18/15 05/22/18 brinzolamide [Azopt] 1 drp OU DAILY drp 09/30/15 05/22/18 latanoprost 1 drp OU HS drp 09/30/15 05/22/18 acetaminophen [Tylenol] 650 mg PO Q4H PRN PRN tab 11/25/15 04/14/18 mirtazapine [Remeron] 15 mg PO HS 03/04/16 05/22/18 multivitamin with minerals 1 tab PO DAILY 03/04/16 05/22/18 [Multiple Vitamin-Minerals] levothyroxine 75 mcg PO DAILY@0600 tab 04/13/16 05/22/18 fluticasone [Flovent HFA] 2 puff INHALATION BID inh 05/30/16 05/22/18 furosemide 40 mg PO DAILY 10/22/16 05/22/18 cholecalciferol (vitamin D3) 1 tab PO Q30D 08/01/17 05/22/18 albuterol sulfate 3 ml IN Q4H PRN PRN 10/22/17 05/22/18 metoprolol tartrate 75 mg PO BID #270 tab-cap 11/09/17 05/22/18 Fluticasone Propionate [24 Hour 9.9 ml NS BID 12/30/17 05/22/18 Allergy] bisacodyl 10 mg ND DAILY 12/30/17 05/22/18 pantoprazole 40 mg PO BID #0 02/28/18 05/22/18 alprazolam 0.25 mg PO BID #60 tablet 03/02/18 05/22/18 dabigatran etexilate [Pradaxa] 150 mg PO BID #0 cap 03/02/18 05/22/18 ursodiol [Actigall] 300 mg PO BID cap 03/02/18 05/22/18 Previous Rx's Medication Instructions Recorded nitroglycerin [Nitrostat] 0.4 mg SUBLINGUAL Q5 MIN PRN X3 05/27/14 PRN #60 tab potassium chloride [Klor-Con M20] 20 meq PO DAILY AM #30 tabcr 07/18/15 acetaminophen [Tylenol] 650 mg PO Q4H PRN PRN tab 11/25/15 levothyroxine 75 mcg PO DAILY@0600 tab 04/13/16 fluticasone [Flovent HFA] 2 puff INHALATION BID inh 05/30/16 metoprolol tartrate 75 mg PO BID #270 tab-cap 11/09/17 pantoprazole 40 mg PO BID #0 02/28/18 alprazolam 0.25 mg PO BID #60 tablet 03/02/18 dabigatran etexilate [Pradaxa] 150 mg PO BID #0 cap 03/02/18 ursodiol [Actigall] 300 mg PO BID cap 03/02/18 Allergies Allergy/AdvReac Type Severity Reaction Status Date / Time banana Allergy Mild Skin Rash Unverified 07/10/18 15:54 formoterol fumarate AdvReac Intermediate Ineffective Unverified 07/10/18 15:54 [From Dulera] per Pt mometasone furoate AdvReac Intermediate Ineffective Unverified 07/10/18 15:54 [From Dulera] per Pt hydrocodone AdvReac Unknown Dizziness/L Unverified 07/10/18 15:54 ightheade General Stated Complaint: Chest Pain CINTIA: 3 Review of Systems Constitutional Reports as per HPI, Denies chills, Denies fever(s), Denies headache(s), Denies lethargy and Denies poor appetite Eyes Denies change in vision ENT Denies headache(s) Cardiovascular Reports as per HPI, Denies dyspnea and Denies dyspnea on exertion Respiratory Denies dyspnea, Denies dyspnea on exertion and Denies wheezing Gastrointestinal Reports as per HPI, Denies abdominal pain, Denies diarrhea, Denies nausea and Denies vomiting Genitourinary Denies system reviewed and no additional complaints, except as docu (denies change in urinary habits) Musculoskeletal Reports as per HPI and Denies back pain Integumentary/Breasts Reports as per HPI and Denies rash Neurologic Denies headache(s) Allergic/Immunologic Denies wheezing [facility] Medical History Atrial fibrillation Chronic obstructive lung disease Diverticulosis of large intestine without diverticulitis Essential hypertension Glaucoma Insomnia Polyp of colon Spinal stenosis of lumbar region Tachycardia-bradycardia Surgical History Colonoscopy - MAC Pacemaker Social History Smoking/Tobacco Use Status: Former Tobacco Use Exam Const General: cooperative, healthy appearing, comfortable, no acute distress and well developed Nutritional Appearance: average body habitus and well nourished Orientation: alert, awake and oriented x3 HENMT Head: normal to inspection Ears: hearing grossly normal bilaterally Mouth: mucous membranes dry (appears dry on exam) Chest Chest: normal inspection of the chest, no crepitus, localized rib tenderness with anteroposterior compression (left lower anteriolateral rib pain), tenderness and No rash Resp Effort & Inspection: normal respiratory effort, able to speak in complete sentences and no respiratory distress Auscultation: clear to auscultation bilaterally, no rales, no rhonchi and no wheezes Cardio Rate: regular rate Rhythm: abnormal rhythm irregularly irregular Heart Sounds: S1 normal and S2 normal GI Inspection: normal to inspection, no edema and non-distended Palpation: soft, no hepatosplenomegaly, not firm, no guarding, not rigid and nontender Auscultation: normal bowel sounds Back/Spine/Pelvis Back: no CVA tenderness Thoracic/Lumbar Spine: thoracic and lumbar spine normal to inspection Skin General skin exam: no rashes or lesions noted Trauma: no lacerations or abrasions Neuro General: alert, awake and oriented x3 Cognition: normal cognition Speech: speech normal Gait: normal gait Extrem General: normal to inspection, normal capillary refill, no pedal edema, no calf tenderness and normal gait Psych Appearance: grossly normal and well kempt Mental Status: mental status grossly normal Speech and Movement: speech and movement normal Course Vital Signs Temperature 36.8 C 07/10/18 13:04 Pulse 71 07/10/18 13:04 Respiratory Rate 18 07/10/18 13:04 Blood Pressure 102/52 L 07/10/18 13:04 Pulse Oximetry 97 07/10/18 13:04 Temperature 36.8 C 07/10/18 13:04 Temperature Source Temporal Artery Scan 07/10/18 13:04 Pulse 71 07/10/18 13:04 Respiratory Rate 18 07/10/18 13:04 Blood Pressure 102/52 L 07/10/18 13:04 Pulse Oximetry 97 07/10/18 13:04 Oxygen Delivery Method Room Air 07/10/18 13:04 Oxygen Flow Rate 0 07/10/18 13:04 Pain Level 5 07/10/18 13:04
[2018-07-10] MEDS: Normal Saline Flush 10 ML SYR IVP (14:08)
[2018-07-10] MEDS: Normal Saline 1,000 ML 125 ML IV (14:10)
[2018-07-10 14:25] LABS: Abs Immature Grans 0.03 k/cumm (0.0-0.09); Absolute Basophil Count 0.04 k/cumm (0.0-0.2); Absolute Eosinophil Count 0.11 k/cumm (0.0-0.7); Absolute Lymphocyte Count 1.84 k/cumm (1.2-3.4); Absolute Monocyte Count 0.66 k/cumm (0.11-0.7); Absolute Neutrophil Count 3.18 k/cumm (1.2-6.7); Basophils % 0.7; Eosinophils % 1.9; HCT 40.6 % (40.0-50.0); HGB 13.3 g/dL (13.5-17.5); Immature Grans % 0.5; Lymphocytes % 31.4; Mean Corp. HGB Concentration 32.8 g/dL (32.0-36.0); Mean Corpuscular Volume 91.4 fL (80-95); Mean Platelet Volume 10.1 fL (8.0-11.0); Monocytes % 11.3; Neutrophils % 54.2; Platelet Count 192 x1000/uL (130-400); RBC 4.44 m/cumm (4.50-6.00); RBC Distribution Width 16.5 % (11.8-14.1); White Blood Cell Count 5.86 k/cumm (4.4-10.8)
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
[2018-07-10 14:38] LABS: ALT 17 U/L (12-78); AST 18 U/L (15-37); Alkaline Phosphatase 108 U/L (46-116); Anion Gap 7.4 mmol/L (3-11); BUN 24 mg/dL (7-18); Bilirubin, Total 0.6 mg/dL (0.2-1.0); CO2 31.6 mmol/L (21.0-32.0); CREATININE 1.54 mg/dL (0.70-1.30); Calcium 8.8 mg/dL (8.5-10.1); Chloride 104 mmol/L (98-107); Estimated GFR 43.47 (mL/min/1.73m2); Glucose 85 mg/dL (70-100); Lipase 88 U/L (73-393); Magnesium 1.9 mg/dL (1.8-2.4); PTT Activated 37.8 sec (21.0-31.4); Potassium 4.2 mmol/L (3.5-5.1); Prothrombin Time 13.5 sec (9.3-11.0); Sodium 143 mmol/L (136-145); Total Protein 6.9 g/dL (6.4-8.2); Troponin I 0.02 ng/mL (0.00-0.06)
[2018-07-10 14:39] LABS: INR 1.3 (0.9-1.1)
--- NOTE | 2018-07-10 14:43 | NUR.NOTE ---
Return from chest xray; no eventsNursing Note:
--- NOTE | 2018-07-10 15:04 | DI.VRAD_ITS ---
EXAM: XR Chest, 2 Views EXAM DATE/TIME: 07/10/2018 1:44 PM CLINICAL HISTORY: 83 years old, male; Signs and symptoms; Cough and other: Focal left sided cp; Patient HX: Cough, focal left sided cp TECHNIQUE: XR of the chest, 2 views. COMPARISON: CR XR CHEST 2V PA LATERAL 03/30/2018 12:32 PM FINDINGS: Tubes, catheters and devices: Stable transvenous pacemaker leads Lungs: Hyperexpanded lung antonio consistent with COPD. No focal consolidation. Pleural space: Unremarkable. No pleural effusion. No pneumothorax. Heart/Mediastinum: Cardiomegaly Bones/joints: [place] is seen in the soft tissues of the left shoulder and neck. This was present on the prior study. Osseous structures are stable IMPRESSION: 1. Hyperexpanded lung antonio consistent with COPD. 2. No focal consolidation. Dictated and Authenticated by: Shawna George MD. Ordering:LIBIA Doran MD
--- NOTE | 2018-07-10 15:57 | NUR.NOTE ---
Patient has no idea what medications he took this AM. Reports all meds are premeasured and placed in containers by Home Health RN, weekly. He did take medications she left for him this AM and at noon. Medication reconciliation not completed.Nursing Note:
== END 2018-07-10 17:15 | disposition home or self-care (01) ==
PROVIDERS: Emergency Provider Physician Assistant; PCP Family Medicine
DX: R07.89 Other chest pain (principal); E86.0 Dehydration; I11.0 Hypertensive heart disease with heart failure; I50.9 Heart failure, unspecified; J44.9 Chronic obstructive pulmonary disease, unspecified; Z87.891 Personal history of nicotine dependence
CPT/HCPCS: 36415; 80053; 83690; 93005; 96360; 96361; 99285; 71046; 83735; 84484; 85025; 85610; 85730; 93010

== ENCOUNTER 2018-07-31 13:18 | Inpatient (IN) | payer MEDICARE, MEDICAID, SELFPAY ==
[2018-07-31] VITALS (9 sets, daily range): BP systolic 105–136; BP diastolic 53–78; PULSE 63–84; RESP 16–18; TEMP 34.9–36.5; O2SAT 95–100
--- NOTE | 2018-07-31 13:36 | ED.GENADUL_ITS ---
Discharge Plan Disposition Patient Disposition: [facility] INPATIENT Condition: Stable Discharge Details Chief Complaint: Urinary Clinical Impression: Complication, blocked suprapubic catheter Reason For Visit: RYANN Primary Care Provider: Lorena Chong ED Provider: Hardy Frederick Home Meds and New Rx's Prescriptions: New cephalexin 500 mg tablet 500 mg PO TID 5 Days Qty: 15 RF: 0 Continued latanoprost 2.5 ML drops 1 drp OU HS RF: 0 Azopt 5 ML drops,suspension 1 drp OU DAILY RF: 0 metoprolol tartrate 50 MG tablet 75 mg PO BID Qty: 270 RF: 3 Spiriva with HandiHaler 18 MCG capsule, w/inhalation device 1 cap Inhalation DAILY RF: 0 nitroglycerin [Nitrostat] 0.4 MG tablet, sublingual 0.4 mg Sublingual Q5 MIN PRN X3 PRNQty: 60 RF: 0 potassium chloride [Klor-Con M20] 20 MEQ tablet,ER particles/crystals 20 meq PO DAILY AM Qty: 30 RF: 0 acetaminophen [Tylenol] 325 MG tablet 650 mg PO Q4H PRN PRNRF: 0 multivitamin with minerals [Multiple Vitamin-Minerals] 1 EACH tablet 1 tab PO DAILY RF: 0 mirtazapine [Remeron] 15 MG tablet 15 mg PO HS RF: 0 levothyroxine 75 MCG tablet 75 mcg PO DAILY@0600 RF: 0 cholecalciferol (vitamin D3) 1,000 UNITS tablet 1 tab PO Q30D RF: 0 bisacodyl 10 MG suppository 10 mg HI DAILY RF: 0 Fluticasone Propionate [24 Hour Allergy] 9.9 ML [place].Susp 9.9 ml NS BID RF: 0 Flovent HFA 120 PUFF HFA aerosol inhaler 2 puff Inhalation BID RF: 0 furosemide 20 MG tablet 40 mg PO DAILY RF: 0 albuterol sulfate 2.5 MG/3 ML solution for nebulization 3 ml IN Q4H PRN PRNRF: 0 pantoprazole 40 MG tablet,delayed release (DR/EC) 40 mg PO BID Qty: 0 RF: 0 ursodiol [Actigall] 300 MG capsule 300 mg PO BID RF: 0 Pradaxa 75 MG capsule 150 mg PO BID Qty: 0 RF: 0 alprazolam 0.25 MG tablet 0.25 mg PO BID Qty: 60 RF: 0 Medical Decision Making 83-year-old male with indwelling suprapubic Kang catheter states he had some abdominal cramping discomfort this morning associated with stopping and starting of the urine production as well as some mild associated bleeding and discharge from his ostomy. No fever. He arrives with a temp of 36.4 pulse 76, blood pressure 136/78. Suprapubic catheter changed with good return of urine. Patient referred for noncontrast CT scan to rule out urinary outlet obstruction. Patient noted today's had some mild generalized weakness and lightheadedness today, therefore IV access established, given small fluid bolus, referred for laboratory testing. UA is consistent with infection. CT scan of the abdomen and pelvis without acute findings, suprapubic catheter in place. Labs reveal mild elevation of BUN to 27 with creatinine of 1.4. After 1 L of fluid and a meal, the patient continued inability to ambulate with 2 person assist due to generalized weakness and fall risk. He states this is new over days time and that he lives alone. We will treat with a course of antibiotics and patient given Keflex. Consistent with urinary tract infection and generalized decompensation. Given the risk of fall, will admit for further management. Lab Data Lab results reviewed: Yes I reviewed the patient's lab results. 07/31/18 13:55 Urine - Reflex from Ua Urine Culture - Pending Laboratory Tests Range/Units 07/31/18 13:55 Urine Color (Yellow) Yellow Urine Clarity Cloudy Urine pH (5-8) 5.5 Ur Specific [place] (1.005-1.025) 1.020 Urine Protein (Negative) mg/dL 30 H Urine Ketones (Negative) mg/dL Trace H Urine Blood (Negative) Moderate H Urine Nitrite (Negative) Positive H Urine Bilirubin (Negative) Negative Urine Urobilinogen (Up TO 0.2) EU/dL 0.2 Ur Leukocyte Esterase (Negative) Moderate H Urine RBC (0-2) >50 H Urine WBC (0-5) HPF >50 Ur Epithelial Cells (Negative) HPF Rare Urine Crystals (Negative) HPF Negative Urine Bacteria (Negative) HPF Moderate Urine Casts (Negative) LPF Negative Urine Mucus (Negative) Negative Ur Culture Indicated? Yes Urine Glucose (Negative) mg/dL Negative ECG Data Attestation: I personally reviewed and interpreted this ECG (s) as follows: Interpretation: Underlying A. fib with a rate of 97, QRS is narrow, no ST segment elevation HPI General Mode of arrival: EMS . Date/Time Provider Initiated Documentation: 07/31/18 13:27 . Limitations to Documentation: no limitations . Information obtained by: patient and EMS . History of Present Illness 83 year old M presents to the emergency department with the chief complaint of Suprapubic catheter malfunction, described as mild, Quality is described as dull and constant, and is localized to the abdomen. Patient reports no radiation. Patient started experiencing this hour(s) and it has been constant. No relieving factors improve symptom(s), No exacerbating factors reported . Patient notes other (Starting and stopping of urine stream, bloody and purulent discharge from ostomy). Patient did receive the following treatments prior to arrival, other (Associated with weakness and lightheaded) Related Data Home Medications Medication Instructions Recorded Confirmed Spiriva with HandiHaler 1 cap INHALATION DAILY 11/08/12 07/31/18 nitroglycerin [Nitrostat] 0.4 mg SUBLINGUAL Q5 MIN PRN X3 05/27/14 07/31/18 PRN #60 tab potassium chloride [Klor-Con M20] 20 meq PO DAILY AM #30 tabcr 07/18/15 07/31/18 Azopt 1 drp OU DAILY drp 09/30/15 07/31/18 latanoprost 1 drp OU HS drp 09/30/15 07/31/18 acetaminophen [Tylenol] 650 mg PO Q4H PRN PRN tab 11/25/15 07/31/18 mirtazapine [Remeron] 15 mg PO HS 03/04/16 07/31/18 multivitamin with minerals 1 tab PO DAILY 03/04/16 07/31/18 [Multiple Vitamin-Minerals] levothyroxine 75 mcg PO DAILY@0600 tab 04/13/16 07/31/18 Flovent HFA 2 puff INHALATION BID inh 05/30/16 07/31/18 furosemide 40 mg PO DAILY 10/22/16 07/31/18 cholecalciferol (vitamin D3) 1 tab PO Q30D 08/01/17 07/31/18 albuterol sulfate 3 ml IN Q4H PRN PRN 10/22/17 07/31/18 metoprolol tartrate 75 mg PO BID #270 tab-cap 11/09/17 07/31/18 Fluticasone Propionate [24 Hour 9.9 ml NS BID 12/30/17 07/31/18 Allergy] bisacodyl 10 mg HI DAILY 12/30/17 07/31/18 pantoprazole 40 mg PO BID #0 02/28/18 07/31/18 Pradaxa 150 mg PO BID #0 cap 03/02/18 07/31/18 alprazolam 0.25 mg PO BID #60 tablet 03/02/18 07/31/18 ursodiol [Actigall] 300 mg PO BID cap 03/02/18 07/31/18 cephalexin 500 mg PO TID 5 Days #15 tab 07/31/18 Previous Rx's Medication Instructions Recorded nitroglycerin [Nitrostat] 0.4 mg SUBLINGUAL Q5 MIN PRN X3 05/27/14 PRN #60 tab potassium chloride [Klor-Con M20] 20 meq PO DAILY AM #30 tabcr 07/18/15 acetaminophen [Tylenol] 650 mg PO Q4H PRN PRN tab 11/25/15 levothyroxine 75 mcg PO DAILY@0600 tab 04/13/16 Flovent HFA 2 puff INHALATION BID inh 05/30/16 metoprolol tartrate 75 mg PO BID #270 tab-cap 11/09/17 pantoprazole 40 mg PO BID #0 02/28/18 Pradaxa 150 mg PO BID #0 cap 03/02/18 alprazolam 0.25 mg PO BID #60 tablet 03/02/18 ursodiol [Actigall] 300 mg PO BID cap 03/02/18 cephalexin 500 mg PO TID 5 Days #15 tab 07/31/18 Allergies Allergy/AdvReac Type Severity Reaction Status Date / Time banana Allergy Mild Skin Rash Unverified 07/31/18 13:30 formoterol fumarate AdvReac Intermediate Ineffective Unverified 07/31/18 13:30 [From Dulera] per Pt mometasone furoate AdvReac Intermediate Ineffective Unverified 07/31/18 13:30 [From Dulera] per Pt hydrocodone AdvReac Unknown Dizziness/L Unverified 07/31/18 13:30 ightheade General Stated Complaint: Urinary CINTIA: 3 Review of Systems Review of Systems 6 systems reviewed and otherwise - PFSH Medical History Atrial fibrillation Chronic obstructive lung disease Diverticulosis of large intestine without diverticulitis Essential hypertension Glaucoma Insomnia Polyp of colon Spinal stenosis of lumbar region Tachycardia-bradycardia Surgical History Colonoscopy - MAC Pacemaker Social History Smoking/Tobacco Use Status: Former Tobacco Use Exam Narrative Exam Narrative: GEN: awake, alert, oriented 3. Pleasant, well groomed, interactive. HEAD: Normocephalic, atraumatic ENT: Mucous membranes moist, oropharynx unremarkable, External ear exam unremarkable EYES: PERRL, EOMI NECK: Full ROM, no PAULINO, no menigismus CHEST/RESP: Nontender, clear to auscultation bilateral, no wheeze/rhonchi/rales CARDIOVASCULAR: irregularly irregular, no murmur, rub stephani. 2+ Rad pulse bilateral ABDOMEN: Soft, right paramidline suprapubic catheter in situ, no mass. +Bowel sounds EXT: Full ROM, no edema, no rash Neuro: Grossly normal neurologic exam, conversant, interactive. Psych: Speech fluent, thoughts congruent, affect normal Course Vital Signs Temperature 36.4 C L 07/31/18 13:25 Pulse 76 07/31/18 13:25 Respiratory Rate 16 07/31/18 13:25 Blood Pressure 136/78 07/31/18 13:25 Pulse Oximetry 99 07/31/18 13:25 Temperature 36.4 C L 07/31/18 13:25 Temperature Source Skin 07/31/18 13:25 Pulse 76 07/31/18 13:25 Respiratory Rate 16 07/31/18 13:25 Respiratory Effort 07/31/18 13:25 Blood Pressure 136/78 07/31/18 13:25 Blood Pressure Position Supine 07/31/18 13:25 Pulse Oximetry 99 07/31/18 13:25 Oxygen Delivery Method Room Air 07/31/18 13:25 Oxygen Flow Rate 0 07/31/18 13:25 Pain Level 8 07/31/18 13:25
--- NOTE | 2018-07-31 13:43 | DI.CT_ITS ---
SYMPTOMS/DIAGNOSIS: RT ABD PAIN, SUPRAPUBIC CATHETER NONCONTRAST CT OF THE ABDOMEN AND PELVIS: Pacemaker leads are seen. The lung bases show minimal dependent changes. The patient is status post cholecystectomy. The liver, spleen, adrenals and kidneys are unremarkable. No renal calculi or hydronephrosis is seen. A suprapubic catheter is in place. The prostate is enlarged. The pancreas appears somewhat atrophic. The aorta shows calcification but is normal in diameter. The appendix is normal. There is extensive diverticulosis of the descending and sigmoid colon but no evidence of diverticulitis. There is no small bowel dilatation. Degenerative changes are seen in the spine. IMPRESSION: Suprapubic catheter. No evidence of hydronephrosis. Severe diverticulosis.
[2018-07-31 13:59] LABS: Bilirubin Negative (Negative); Blood Moderate (Negative); Clarity Cloudy; Glucose Negative (Negative); Ketones Trace mg/dL (Negative); Leukocyte Esterase Moderate (Negative); Nitrite Positive (Negative); Urobilinogen 0.2 EU/dL (Up TO 0.2); pH 5.5 (5-8)
[2018-07-31] MEDS: Acetaminophen 500 MG TAB 1000 MG PO (14:02)
[2018-07-31 14:12] LABS: WBC >50 HPF (0-5)
[2018-07-31 14:13] LABS: Bacteria Moderate HPF (Negative); C & S Indicated? Yes; Casts Negative LPF (Negative); Crystals Negative HPF (Negative); Epithelial Cells Rare HPF (Negative); Mucus Negative (Negative); RBC >50 (0-2)
--- NOTE | 2018-07-31 14:46 | DI.VRAD_ITS ---
EXAM: CT Abdomen and Pelvis Without Contrast EXAM DATE/TIME: 07/31/2018 1:43 PM CLINICAL HISTORY: 83 years old, male; Signs and symptoms; Other: R abd pain, suprapubic catheter; Patient HX: R abd pain, suprapubic catheter, rlq burning sensation since 4am but got worse . TECHNIQUE: Axial computed tomography images of the abdomen and pelvis without contrast. All CT scans at this facility use at least one of these dose optimization techniques: automated exposure control; mA and/or kV adjustment per patient size (includes targeted exams where dose is matched to clinical indication); or iterative reconstruction. Coronal and sagittal reformatted images were created and reviewed. COMPARISON: CT ABD PELVIS WO CONTRAST 02/28/2018 9:57 AM FINDINGS: Minimal hiatal hernia. Prior cholecystectomy. The appendix is normal. Moderate diverticulosis without evidence of diverticulitis. Suprapubic urinary bladder catheter in place. No focal inflammatory process. No free fluid. No evidence of bowel obstruction. IMPRESSION: No specific etiology identified for the patient's symptoms. Dictated and Authenticated by: Kalen Sloan MD. Ordering:SHERRY Dash MD
[2018-07-31] MEDS: Cephalexin 500 MG CAP PO ×2 (14:56→22:39)
--- NOTE | 2018-07-31 15:47 | NUR.NOTE ---
pt was assisted to the bathroom . he was very unsteady on his feet, he nearly fell 2 x. while holding the bar on the wall . Nursing Note:
[2018-07-31] MEDS: Normal Saline 1,000 ML 500 ML IV (15:55)
[2018-07-31 16:00] LABS: Abs Immature Grans 0.03 k/cumm (0.0-0.09); Absolute Basophil Count 0.04 k/cumm (0.0-0.2); Absolute Eosinophil Count 0.08 k/cumm (0.0-0.7); Absolute Lymphocyte Count 1.61 k/cumm (1.2-3.4); Absolute Neutrophil Count 3.35 k/cumm (1.2-6.7); Basophils % 0.7; Eosinophils % 1.4; HCT 45.1 % (40.0-50.0); HGB 14.9 g/dL (13.5-17.5); Immature Grans % 0.5; Lymphocytes % 28.2; Mean Corpuscular Hemoglobin 29.6 pg (27.0-33.0); Mean Corpuscular Volume 89.5 fL (80-95); Mean Platelet Volume 9.8 fL (8.0-11.0); Monocytes % 10.5; Neutrophils % 58.7; Platelet Count 193 x1000/uL (130-400); RBC 5.04 m/cumm (4.50-6.00); RBC Distribution Width 16.5 % (11.8-14.1); White Blood Cell Count 5.71 k/cumm (4.4-10.8)
[2018-07-31 16:09] LABS: ALT 17 U/L (12-78); AST 25 U/L (15-37); Albumin 3.4 g/dL (3.4-5.0); Alkaline Phosphatase 109 U/L (46-116); Anion Gap 9.3 mmol/L (3-11); BUN 27 mg/dL (7-18); Bilirubin, Total 0.7 mg/dL (0.2-1.0); CO2 29.7 mmol/L (21.0-32.0); CREATININE 1.45 mg/dL (0.70-1.30); Calcium 9.3 mg/dL (8.5-10.1); Chloride 104 mmol/L (98-107); Estimated GFR 46.59 (mL/min/1.73m2); Glucose 100 mg/dL (70-100); Magnesium 2.2 mg/dL (1.8-2.4); Potassium 4.2 mmol/L (3.5-5.1); Sodium 143 mmol/L (136-145); Total Protein 7.3 g/dL (6.4-8.2)
[2018-07-31 18:12] LABS: INR 1.2 (0.9-1.1); Prothrombin Time 12.3 sec (9.3-11.0)
--- NOTE | 2018-07-31 18:35 | W.PM.HP.N ---
Date of service: 07/31/18 Time of Service: 18:35 Assessment and Plan (1) Generalized weakness: Start date: 07/31/18 Current visit: Yes Status: Acute Patient began having symptoms this morning and it persisted during the day prompting him to be evaluated in the emergency room. He appeared clinically stable except for discomfort from his plug suprapubic catheter and chronic constipation with abdominal discomfort with possible slight dehydration with a history of CKD clinically worsened but by laboratory stable. His furosemide and potassium were held and was given gentle IV hydration while treating his UTI and discomfort as well as his constipation. He should be reevaluated for safety of living alone with his medical problems and being on chronic benzodiazepines and intermittent narcotics. He is at high risk for falls. I will have physical therapy evaluate him and disease case manager rn evaluate. Will be observed overnight for treatment of his acute problems hoping to assess safety at home and increased services if needed. (2) UTI (urinary tract infection): Start date: 07/31/18 Current visit: Yes Status: Acute This appears to be as a consequence with blood catheter and may be more chronic and acute. Continue oral Keflex and follow-up urine culture and sensitivities before discharge. Follow-up on final reading of the renal CT. (3) Chronic constipation: Current visit: Yes Status: Chronic Patient states he chronically has abdominal bloating and discomfort when he does not have a bowel movement daily. He does take MiraLAX daily and bisacodyl suppositories as needed. His abdominal discomfort may be a combination of his recently plugged suprapubic catheter and UTI along with his constipation. We will continue daily cathartics and as needed cathartics with his discomfort to be treated with morphine liquid as he states he takes at home. (4) Chronic kidney disease (CKD): Current visit: No Status: Chronic Clinically patient appears like he may be slightly dehydrated but his lab appears stable. We will hold his Lasix and potassium with IV hydration recently before discharge if needed patient having some peripheral edema. Overall this appears to be stable. Monitor labs daily. History of Present Illness Chief Complaint: Weakness with inability to ambulate safely alone, UTI Narrative: This is an 83-year-old gentleman who lives alone in a basement apartment presenting to the ED feeling weak and having his suprapubic catheter clogged with increased pain and discharge from his ostomy. This catheter was exchanged and had good flow and his evaluation was unrevealing except for possible UTI the patient started on Keflex. Renal CT was interpreted as nothing acute though the formal interpretation is pending. Patient does complain of abdominal pain in his lower abdomen which he states happens when his catheter plugged but also when he is constipated the patient not having a bowel movement for several days. He does take daily MiraLAX and bisacodyl suppository when he needs to have a bowel movement. Because he was unable to ambulate safely alone he was admitted to observation for physical therapy and case management assessment in the morning as well as continued treatment of his UTI with Keflex by mouth and mild IV hydration holding his Lasix and potassium. He also needs treatment for constipation and abdominal discomfort with patient taking morphine at home daily as needed though he states he takes it infrequently. This is not on his medication list. He is on Pradaxa for atrial fibrillation which is stable he also has a pacemaker. His cardiovascular evaluation was unrevealing in the ED. His labs and vital signs appeared stable and he was afebrile with the main reason for him saying was that he lives alone and appeared to be too weak to safely take care of himself. Not on his problem is his sleep apnea the patient having CPAP machine which he brought into use in the hospital. As above, he states he takes morphine when he needs it in a liquid form and this is not on his med list. Review of Systems Constitutional Reports as per HPI, Denies chills, Reports fatigue, Denies fever(s), Reports snoring and Reports weakness Eyes Denies change in vision ENT Denies change in voice, Denies dysphagia, Reports dizziness, Denies sinus pain and Denies sore throat Cardiovascular Denies acrocyanosis, Denies chest pain, Denies diaphoresis, Denies syncope and Reports pedal edema Comments: Patient has pacemaker Respiratory Denies cough, Denies hemoptysis, Reports snoring and Denies wheezing Comments: Patient has sleep apnea Gastrointestinal Reports abdominal pain (Chronically with constipation), Denies bloating, Denies hematochezia, Denies change in bowel habits, Reports constipation, Denies cramping, Denies dysphagia, Denies diarrhea, Denies nausea and Denies vomiting Genitourinary Denies hematuria, Reports difficulty urinating (Has suprapubic catheter which was replaced in the ED), Reports genital pain (Associated with blood catheter) and Denies scrotal swelling Musculoskeletal Reports abnormal gait, Reports arthralgias, Denies joint swelling, Reports limited range of motion and Reports muscle weakness Neurologic Denies abnormal movements, Reports abnormal gait, Denies confusion, Reports dizziness, Denies syncope, Denies focal weakness, Denies tremor(s) and Reports weakness Psychiatric Denies confusion, Reports irritability and Reports mood swings Endocrine Reports fatigue, Denies polyphagia, Denies polydipsia and Denies polyuria Hematologic/Lymphatic Reports easy bruising (On Pradaxa) and Denies lymphadenopathy Allergic/Immunologic Denies wheezing PFSH Medical History Atrial fibrillation Chronic obstructive lung disease Diverticulosis of large intestine without diverticulitis Essential hypertension Glaucoma Insomnia Polyp of colon Spinal stenosis of lumbar region Tachycardia-bradycardia Surgical History Colonoscopy - MAC Pacemaker Social History Smoking/Tobacco Use Status: Former Tobacco Use Meds Home Medications Medication Instructions Recorded Confirmed Type Spiriva with HandiHaler 1 cap INHALATION DAILY 11/08/12 07/31/18 History nitroglycerin [Nitrostat] 0.4 mg SUBLINGUAL Q5 MIN PRN X3 05/27/14 07/31/18 Rx PRN #60 tab potassium chloride [Klor-Con M20] 20 meq PO DAILY AM #30 tabcr 07/18/15 07/31/18 Rx Azopt 1 drp OU DAILY drp 09/30/15 07/31/18 History latanoprost 1 drp OU HS drp 09/30/15 07/31/18 History acetaminophen [Tylenol] 650 mg PO Q4H PRN PRN tab 11/25/15 07/31/18 Rx mirtazapine [Remeron] 15 mg PO HS 03/04/16 07/31/18 History multivitamin with minerals 1 tab PO DAILY 03/04/16 07/31/18 History [Multiple Vitamin-Minerals] levothyroxine 75 mcg PO DAILY@0600 tab 04/13/16 07/31/18 Rx Flovent HFA 2 puff INHALATION BID inh 05/30/16 07/31/18 Rx furosemide 40 mg PO DAILY 10/22/16 07/31/18 History cholecalciferol (vitamin D3) 1 tab PO Q30D 08/01/17 07/31/18 History albuterol sulfate 3 ml IN Q4H PRN PRN 10/22/17 07/31/18 History metoprolol tartrate 75 mg PO BID #270 tab-cap 11/09/17 07/31/18 Rx Fluticasone Propionate [24 Hour 9.9 ml NS BID 12/30/17 07/31/18 History Allergy] bisacodyl 10 mg VA DAILY 12/30/17 07/31/18 History pantoprazole 40 mg PO BID #0 02/28/18 07/31/18 Rx Pradaxa 150 mg PO BID #0 cap 03/02/18 07/31/18 Rx alprazolam 0.25 mg PO BID #60 tablet 03/02/18 07/31/18 Rx ursodiol [Actigall] 300 mg PO BID cap 03/02/18 07/31/18 Rx cephalexin 500 mg PO TID 5 Days #15 tab 07/31/18 Rx Allergies Allergy/AdvReac Type Severity Reaction Status Date / Time banana Allergy Mild Skin Rash Unverified 07/31/18 13:30 formoterol fumarate AdvReac Intermediate Ineffective Unverified 07/31/18 13:30 [From Dulera] per Pt mometasone furoate AdvReac Intermediate Ineffective Unverified 07/31/18 13:30 [From Dulera] per Pt hydrocodone AdvReac Unknown Dizziness/L Unverified 07/31/18 13:30 ightheade Exam Narrative Exam Narrative: General: Patient is easily irritated slightly hard of hearing, he is wearing his CPAP machine when I interviewed him but appears to be in no acute distress other than discomfort of his abdomen when examined. He is alert and oriented at least to person and place. HEENT: Normocephalic with ears normal, nose normal, oropharynx with dry, pink mucosa with patient where denture plates above and below. Eyes with pupils equal and react to light symmetrically and extraocular movement intact. Sclerae anicteric. Neck: Supple without JVD. Lungs: Fair aeration with bronchovesicular breath sounds diffusely but no focalizing rales or rhonchi. Chest: Exaggerated concave lower part of the sternum with prominent upper sternum, palpable subcutaneous pacemaker over the right upper chest. Heart: Irregular rhythm with normal rate no appreciable murmurs or gallops on distant heart sounds. Abdomen: Slightly protuberant, soft and tender to deep palpation without rebound but slight guarding especially over the lower abdomen with some palpable stool in the colon but no abnormal masses palpated. No hepatomegaly. Bowel sounds are hypoactive but present in all quadrants. There is no tympany to percussion. There is a new suprapubic catheter in the lower abdomen over the pubic area. Genitalia: No edema with normal external male genitalia. Rectal: Deferred. Extremities: 1+ nonpitting edema over both lower extremities with loss of hair and slightly shiny atrophic skin without ulcerations. Capillary refill is fair. There is no cyanosis or clubbing. Joints of the lower extremities have arthritic changes without swelling but decreased range of motion. Skin: Pale, warm and dry. Neuro: Cranial nerves II through XII grossly intact except for slight decreased hearing acuity, no focalizing motor deficits and no Babinski's. Motor strength appears to be 4 out of 5 diffusely with generalized weakness. Psych: Short and long-term memory appear to be intact, patient is easily agitated when being questioned and is a flattened affect but he is uncomfortable with abdominal discomfort with constipation. Results Labs : 07/31/18 15:40 07/31/18 15:40 Laboratory Results - last 24 hr 07/31/18 07/31/18 07/31/18 13:55 15:40 15:40 WBC 5.71 RBC 5.04 Hgb 14.9 Hct 45.1 MCV 89.5 MCH 29.6 MCHC 33.0 RDW 16.5 H Plt Count 193 MPV 9.8 Immature Gran % 0.5 Neutrophils % 58.7 Lymphocytes % 28.2 Monocytes % 10.5 Eosinophils % 1.4 Basophils % 0.7 Absolute Neutrophils 3.35 Absolute Lymphocytes 1.61 Absolute Monocytes 0.60 Absolute Eosinophils 0.08 Absolute Basophils 0.04 PT INR Sodium 143 Potassium 4.2 Chloride 104 Carbon Dioxide 29.7 Anion Gap 9.3 BUN 27 H Creatinine 1.45 H Estimated GFR/1.73 m2 46.59 Glucose 100 Calcium 9.3 Magnesium 2.2 Total Bilirubin 0.7 AST 25 ALT 17 Alkaline Phosphatase 109 Total Protein 7.3 Albumin 3.4 Urine Color Yellow Urine Clarity Cloudy Urine pH 5.5 Ur Specific [place] 1.020 Urine Protein 30 H Urine Ketones Trace H Urine Blood Moderate H Urine Nitrite Positive H Urine Bilirubin Negative Urine Urobilinogen 0.2 Ur Leukocyte Esterase Moderate H Urine RBC >50 H Urine WBC >50 Ur Epithelial Cells Rare Urine Crystals Negative Urine Bacteria Moderate Urine Casts Negative Urine Mucus Negative Ur Culture Indicated? Yes Urine Glucose Negative 07/31/18 15:40 WBC RBC Hgb Hct MCV MCH MCHC RDW Plt Count MPV Immature Gran % Neutrophils % Lymphocytes % Monocytes % Eosinophils % Basophils % Absolute Neutrophils Absolute Lymphocytes Absolute Monocytes Absolute Eosinophils Absolute Basophils PT 12.3 H INR 1.2 H Sodium Potassium Chloride Carbon Dioxide Anion Gap BUN Creatinine Estimated GFR/1.73 m2 Glucose Calcium Magnesium Total Bilirubin AST ALT Alkaline Phosphatase Total Protein Albumin Urine Color Urine Clarity Urine pH Ur Specific [place] Urine Protein Urine Ketones Urine Blood Urine Nitrite Urine Bilirubin Urine Urobilinogen Ur Leukocyte Esterase Urine RBC Urine WBC Ur Epithelial Cells Urine Crystals Urine Bacteria Urine Casts Urine Mucus Ur Culture Indicated? Urine Glucose Last Vital Signs Temp 36.5 C 07/31/18 14:59 Pulse 69 07/31/18 16:15 Resp 18 07/31/18 14:59 BP 120/69 07/31/18 16:15 Pulse Ox 98 07/31/18 16:17
[2018-07-31] MEDS: ALPRAZolam 0.25 MG TAB PO (19:51)
[2018-07-31] MEDS: Normal Saline 1,000 ML 100 ML IV (19:51)
[2018-07-31] MEDS: Metoprolol 50 MG TAB 75 MG PO (19:52)
[2018-07-31] MEDS: Pantoprazole 40 MG TABCR PO (19:52)
--- NOTE | 2018-07-31 20:04 | NUR.NOTE ---
blood alcohol level as measured by is .067 Nursing Note:
[2018-07-31] MEDS: Ursodiol 300 MG CAP PO (22:39)
[2018-07-31] MEDS: Mirtazapine 15 MG TAB PO (22:39)
[2018-07-31] MEDS: Milk of Magnesia 30 ML CUP PO (22:39)
[2018-07-31] MEDS: MORPHine 10 MG/ML VIAL 2 MG IVP (22:59)
[2018-07-31] MEDS: Fluticasone NASAL SPRAY 16 GM BTL NS (23:00)
[2018-07-31] MEDS: Latanoprost 0.005% 2.5 ML BTL OU (23:00)
[2018-08-01 00:05] VITALS: BP 109/64; PULSE 58; RESP 19; TEMP 35.6; O2SAT 98
--- NOTE | 2018-08-01 02:25 | NUR.NOTE ---
Patient admitted to the department from the ER with history of pain and burning sensation to the suprapubic catheter since early in the morning. Patient admits to having pain at this time and burning. He denies having SOB or chest pain. State he has chronic constipation but no symptoms of bloatedness or nausea. He admits weakness and does not want to go home feeling the current feelings. On assessment elderly male having pain to the abdomen due to symptoms of a UTI. He is conscious, alert, rational and oriented x3. mucus membrane pink and moist chest clear. Well healed scar noted to the left shoulder and under the neck. Small lesion noted behind the right ear. IV fluids progressing with Normal saline 100 mls/hr. Abdomen soft and tender. Kang draining clear yellow urine. Nad to the lower extremities. Patient made comfortable in bed, oriented to the room. Bed alarms on for safety
[2018-08-01] MEDS: Cephalexin 500 MG CAP PO (03:39)
[2018-08-01] MEDS: Normal Saline 1,000 ML 100 ML IV ×2 (03:39→14:18)
[2018-08-01 03:49] VITALS: BP 128/69; PULSE 68; RESP 18; TEMP 35.8; O2SAT 98
[2018-08-01] MEDS: Polyethylene Glycol 3350 17 GM PACKET PO (05:10)
[2018-08-01] MEDS: Levothyroxine 75 MCG TAB PO (05:10)
[2018-08-01] MEDS: Milk of Magnesia 30 ML CUP PO (05:15)
[2018-08-01 07:41] VITALS: BP 130/88; PULSE 63; RESP 16; TEMP 35.9; O2SAT 98
[2018-08-01 07:54] LABS: HCT 44.2 % (40.0-50.0); HGB 14.3 g/dL (13.5-17.5); Mean Corp. HGB Concentration 32.4 g/dL (32.0-36.0); Mean Corpuscular Hemoglobin 29.7 pg (27.0-33.0); Mean Corpuscular Volume 91.9 fL (80-95); Mean Platelet Volume 10.3 fL (8.0-11.0); Platelet Count 162 x1000/uL (130-400); RBC 4.81 m/cumm (4.50-6.00); RBC Distribution Width 16.9 % (11.8-14.1); White Blood Cell Count 4.95 k/cumm (4.4-10.8)
[2018-08-01 08:03] LABS: ALT 16 U/L (12-78); AST 25 U/L (15-37); Alkaline Phosphatase 96 U/L (46-116); Anion Gap 8.2 mmol/L (3-11); BUN 22 mg/dL (7-18); Bilirubin, Total 0.6 mg/dL (0.2-1.0); CO2 29.8 mmol/L (21.0-32.0); CREATININE 1.25 mg/dL (0.70-1.30); Calcium 8.6 mg/dL (8.5-10.1); Chloride 108 mmol/L (98-107); Glucose 100 mg/dL (70-100); Potassium 4.2 mmol/L (3.5-5.1); Sodium 146 mmol/L (136-145); Total Protein 6.8 g/dL (6.4-8.2)
[2018-08-01] MEDS: Pantoprazole 40 MG TABCR PO ×2 (08:26→20:37)
[2018-08-01] MEDS: ALPRAZolam 0.25 MG TAB PO ×2 (08:26→20:36)
[2018-08-01] MEDS: Ursodiol 300 MG CAP PO ×2 (08:26→20:36)
[2018-08-01] MEDS: Metoprolol 50 MG TAB 75 MG PO ×2 (08:26→20:36)
[2018-08-01] MEDS: Multivitamin w/Minerals TAB 1 TAB PO (08:26)
[2018-08-01] MEDS: Fluticasone NASAL SPRAY 16 GM BTL NS (08:27)
[2018-08-01] MEDS: MEROPENEM 1 GM in Normal Saline 100 ML IVPB ×2 (08:47→20:35)
--- NOTE | 2018-08-01 09:43 | PT.INIE ---
Date of service: 08/01/18 Time of Service: 07:55 PT Notes Inpatient Physical Therapy Evaluation Date: 08/02/18 Referring Doctor: Yung Bernardo PT Orders: PT CONSULT: 83-year old gentleman who lives alone with questionable safety with ambulation, admitted for UTI with weakness out of proportion to clinical findings Precautions: Fall, standard Patient Profile/Admitting Diagnosis: Patient admitted from ER on 08/01/18 for generalized weakness due to UTI, with questionable safety at home. PMHX: Chronic kidney disease, atrial fibrillation status post pacemaker placement, COPD, hypertension Social History/Home Situation: [place] He has a flight of outdoor steps going down an embankment to his home, which he is required to manage to get into the home. He has approximately 12 steps, with bilateral rails. He has housekeepers to come in daily, and a neighbor who checks on him twice a day. He typically ambulates with a wheeled walker. Equipment Owned/DME: VICTOR M Subjective: Patient is agreeable to getting up with PT. States that he needs to get to the bathroom quickly. He reports a long history of falls with multiple falls at home. He also reports multiple hospitalizations, with several transitions to care home facility for short periods. Objective: General Observation: Sitting at EOB independently, clearly anxious. He has an IV in RUE and Kang catheter. Mental Status: A&Ox3, although provides deviating history Pain: denies ROM: Right Upper Extremity: WFL Left Upper Extremity: WFL Right Lower Extremity: WFL Left Lower Extremity: WFL Strength: Right Upper Extremity: Shoulder flexion 4+/5. Triceps 4/5. Examining Chair Assembler is strong and equal. Left Upper Extremity: Shoulder flexion 4+/5. Triceps 4/5. Examining Chair Assembler is strong and equal. Right Lower Extremity: Hip flexion 5/5. Quads 4+/5. Ankle DF 4+/5. Left Lower Extremity: Hip flexion 5/5. Quads 4+/5. Ankle DF 4+/5. Bed Mobility/Transfers: Supine to sit: Independent Sit to supine: Independent Sit to stand: Supervision Stand to sit: Supervision Bed to chair: Supervision with WW. Patient requires significant cues for safety and technique. Gait: Patient ambulates 25 feet with FW W, contact-guard, full weightbearing. He requires cues for safety and pacing, as well as assistance for management of his lines. Balance: Static Sitting: Normal Dynamic Sitting: Normal Static Standing: Fair Dynamic Standing: Fair Special Tests: Mobility Limitations Standardized Measure [facility] AM-PAC 6 clicks Basic Mobility Inpatient Short Form: Raw Score: 20 standardized Score: 47.67 CMS Score: 36% [facility] Modifier: CJ Informed Consent/Education: Patient instructed in purpose of PT consult and plan of care. Assessment: Patient is a 83 year old male referred to physical therapy services with the diagnosis of generalized weakness related to UTI, with questionable safety at home. Patient presents with clinical signs and symptoms consistent with diagnosis, with demonstration of poor safety awareness and associated limitations and safe mobility. He currently demonstrates the following impairment level findings: 1. Poor safety awareness 2. Decreased tolerance to community distance ambulation 3. Fall risk Impairments are contributing to the following functional limitations: 1. Decreased safety with household distance ambulation 2. High fall risk [facility] score 36% deficit. Patient is assessed as Moderate 86373 complexity based on the following: History: 83-year-old male admitted for weakness related to UTI. His mobility deficits are complicated by history of multiple falls, advanced age, and patient living independently with environmental hazards including a full outdoor flight of steps down to his home. He also has multiple medical comorbidities, as listed above. Examination: Functional limitations as noted above Presentation: Evolving Decision Making: Moderate complexity Goals: Goals X1 week 1. Supine-Sit: Independent 2. Sit-Supine : Independent 3. Sit-Stand : Independent 4. Stand-Sit: Independent 5. Bed-Chair : Independent with WW 6. Chair-Bed : Independent with WW 7. Gait : Patient able to ambulate 50 feet with FW W and contact-guard 8. Stairs : Patient able to manage full flight of stairs with bilateral upper extremity support to rails and supervision only Plan of Care/Treatment Plan: 1-2x/day, 7 days/week x 1 week. Plan of care has been reviewed with the DIE ENGRAVER providing the service under Physical Therapy direction. Initiate Physical Therapy intervention for strengthening, bed mobility, transfers, gait, stairs, balance training, use of assistive device. DISCHARGE RECOMMENDATIONS: Patient will likely require placement in care home facility for continued strengthening and improvements in activity tolerance prior to returning back to living independently. No equipment needs anticipated TREATMENT CODE/TIME: 20 minutes (06959) G Codes in the area mobility of walking and moving around: current status [id number] CJ; projected status GP [id number]. Discharge status (if discharging) GP [id number] CJ.
[2018-08-01] MEDS: Acetaminophen 500 MG TAB 1000 MG PO (10:55)
[2018-08-01 11:50] VITALS: BP 128/84; PULSE 47; RESP 18; TEMP 36.4; O2SAT 96
--- NOTE | 2018-08-01 11:54 | PHARADMIT ---
Addendum entered by Yuridia Skaggs 08/04/18 17:26: Vanco dc'd Meropenem...renally adjusted continues Vit D order is pending....meant to call PCP for dose clarification, did not have time. There is a note that states he takes it the first Wednesday of the month which would be 08/08/18, but dose is likely not correct. Discharge to [facility] soon, not sure they can do Q12h Anbx Micro has Klebsiella and ESBL growing in urine, needs Meropenem Original Note: Addendum entered by Agustin Espinal III 08/03/18 11:24: Pharmacy Note Subjective Diarrhea improved. UTI from supra-pubic catheter? Objective VS-OK SCr-1.29 Lyts,H&H,Plts,WBC-OK, Wgt-up 85.6 kg Assessment IV Fluids dc'd, Vancomycin, Meropenem continues Plan Trough today at 1500 Original Note: Addendum entered by Angely Bailey 08/02/18 16:52: Pharmacy Note Subjective Objective VS-okay SCr-1.39(up) Assessment waiting for clarification on vitamin D dose vanco and meropenem continue (day2) no med changes so far today blood cultures no growth @ 24 hours urine culture growing gram negative rods Plan vanco trough ordered for 1700 tomorrow continue to watch for micro results Original Note: Admission Pharmacy Clinical Review weakness with UTI Code Status DNR/DNI Current Weight 81.9 kg Renally Cleared and Narrow Therapeutic Index Meds Crcl ~47.00 mL/min current meds okay QTc Value / Action Taken QTc 478 has mirtazapine ordered BP Control, Fever BP 128/84 afebrile/temp was 34.9 yesterday evening Electrolytes reviewed Na 146 Cl 108 DVT Prophylaxis pt is on dabigatran Opiate Usage / Scheduled Bowel Regimen Ordered prn/scheduled and prn has chronic constipation per morning report Plt/SCr for Heparin / Enoxaparin plt 162 SCr 1.25 INR for Warfarin n/a H/H stable, WBC/Bands h/h 14.3/44.2 WBC 4.95 Antibiotic appropriateness vanco and meropenem as pt has history of ESBL E.coli Cultures and Sensitivities urine culture prelim growing gram negative rods blood cultures pending Surgical ABX d/c within 24 hr n/a DM control / Insulin Dosing BG 100 none Heart Failure (Check EF%) (JULISSA's, B-Block, Diuretics) metoprolol, furosemide (home med) IV to PO Switch n/a Home Meds Reviewed -multiple forms of vitamin D increases risk of toxicity -tiotropium may enhance the ulcerogenic effects of potassium -separate admin of cephalexin and levothyroxine from multivitamin Home Meds Not Ordered cephalexin(other abx ordered), flovent(mometasone substituted), furosemide, potassium chloride, Comments
--- NOTE | 2018-08-01 15:50 | PT.INTREAT ---
Date of service: 08/01/18 Time of Service: 15:50 PT Notes Inpatient Physical Therapy Treatment Note [facility] Date: 08/01/18 PRECAUTIONS: Fall SUBJECTIVE: Brenden states that he is still not feeling well, although is agreeable to participating in PT. OBJECTIVE: PAIN: Patient c/o stomach pain BED MOBILITY/TRANSFERS Supine-sit: I Sit-supine: I Sit-stand: S Stand-sit: S GAIT Assistive Device: FWW Weight bearing: Full Assist: SBA Distance: 250' Deviation: Standing rest x2, SOB THEREX: Patient completed a LE strengthening program while seated at EOB and in supine position, as per flow sheet. ASSESSMENT: Patient tolerated session well with c/o stomach pain. He was able to tolerate a progression in gait distance with FWW support, requiring standing rest x2 due to SOB. He would benefit from continued gait training, as well as strengthening for improved activity tolerance. PLAN: Continue with PT's POC TREATMENT CODE/TIME: 30 minutes; 76802, [id number]
--- NOTE | 2018-08-01 16:18 | W.PM.PROGNOT ---
Date of Service Date of service: 08/01/18 Time of Service: 16:18 Assessment and Plan (1) Generalized weakness: Current visit: Yes Status: Acute May have a chronic component to this, but potentially based on evidence of UTI. Continue treatment of infection, consult physical therapy, and monitor symptoms closely. 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 Discontinue cephalexin, initiate vancomycin and meropenem, and await results of blood and urine cultures. Monitor symptoms closely. Patient is currently hypothermic which is concerning, but is not overtly hypotensive or tachycardic. Monitor closely. Check a lactate as well. (3) Chronic constipation: Current visit: Yes Status: Chronic Currently with noted diarrhea and multiple bowel movements today. Will check C. difficile and some stool studies, and monitor symptoms closely. (4) COPD (chronic obstructive pulmonary disease): Current visit: No Status: Chronic Continue home Spiriva and prn DuoNeb's. Appears quiescent. (5) Hypertension: Current visit: No Status: Chronic Noted. Currently on beta-suzie therapy. (6) Atrial fibrillation: Current visit: No Status: Chronic Continue beta-suzie. Also on anticoagulation with Dabigatran. Appears rate controlled. (7) DVT prophylaxis: Current visit: Yes Status: Acute On chronic anticoagulation with Pradaxa. Also on PPI therapy. Subjective Interval history since last seen: 83 year old man with a prior medical history significant for BPH with urinary retention, s/p suprapubic catheter placement in the past, prior UTIs with a history of multidrug-resistant and ESBL organisms admitted from [facility] Emergency Room diagnosis of a UTI. Mr. Ross has a prior history of A. fib on anticoagulation, CHF but with prior echo in 2016 showing a normal LVEF, sick sinus syndrome S/P PPM/AICD, PVD, and COPD. The patient also has a history of hypothyroidism, severe diverticulosis, anxiety, and prior EtOH and tobacco use. A prior course of choledocholithiasis led to [place] [facility] The patient lives alone in a basement apartment by choice. He presented to the ED with complaints of weakness as well as a clogged suprapubic catheter. Workup in the ED was positive for potential UTI, with CT scan showing no evidence of hydronephrosis. He did not have any leukocytosis on labs, and while his creatinine was mildly elevated it appeared to be at its former baseline. He was however also found to be hypothermic, with a low temperature of 34.9. He is also not significantly hypotensive or tachycardic. Today the patient is been reported to have multiple bowel movements, some loose. No other events reported. He remains afebrile but with improving temperatures at the time of exam. Exam Narrative Exam Narrative: General: Patient appears comfortable, sitting up in bed, AAOX3, NAD Neck: Supple CV: Irregularly irregular, nontachycardic, S1S2, No rubs, murmurs, or gallops. Pulmonary: Clear to auscultation bilaterally, no crackles, wheezing, or rhonchi Abdomen: + Bowel Sounds, soft, nontender, nondistended Vascular: No lower extremity edema. Skin is overall cool to touch bilaterally in the lower extremities, with appearance of chronic but likely significant PVD. Psych: Normal mood and affect. Objective Objective Clinical Data: Abnormal lab results 07/31/18 07/31/18 08/01/18 Range/Units 15:18 15:40 07:08 RDW (11.8-14.1) % PT 12.3 H (9.3-11.0) sec INR 1.2 H (0.9-1.1) Sodium 146 H (136-145) mmol/L Chloride 108 H (98-107) mmol/L BUN 22 H (7-18) mg/dL Albumin 3.0 L (3.4-5.0) g/dL TSH 5.70 H (0.358-3.74) uIU/mL 08/01/18 Range/Units 07:08 RDW 16.9 H (11.8-14.1) % PT (9.3-11.0) sec INR (0.9-1.1) Sodium (136-145) mmol/L Chloride (98-107) mmol/L BUN (7-18) mg/dL Albumin (3.4-5.0) g/dL TSH (0.358-3.74) uIU/mL Vital Signs Temperature 36.4 C L 08/01/18 11:50 Temperature Source Tympanic 08/01/18 11:50 Pulse 47 L 08/01/18 11:50 Pulse Rhythm Regular 08/01/18 08:25 Respiratory Rate 18 08/01/18 11:50 Respiratory Effort Non-Labored 08/01/18 08:25 Respiratory Depth Normal 08/01/18 08:25 Respiratory Pattern Normal 08/01/18 08:25 Blood Pressure 128/84 08/01/18 11:50 Blood Pressure Mean 80 07/31/18 16:15 Blood Pressure Position Supine 07/31/18 13:25 Pulse Oximetry 96 08/01/18 11:50 Oxygen Delivery Method Room Air 08/01/18 11:50 Oxygen Flow Rate 0 08/01/18 11:50 Pain Level 6 08/01/18 11:50 Intake & Output 07/31/18 08/01/18 08/01/18 23:59 11:59 23:59 Intake Total 1360 / 2800 1440 / 2800 Output Total 50 / 50 1150 / 1150 Balance -50 / -50 210 / 1650 1440 / 1650 Weight 80.8 kg 81.9 kg Intake: IV 880 / 2080 1200 / 2080 Oral 480 / 720 240 / 720 Output: Urine 50 / 50 1150 / 1150 Other: Urine Color Yellow Yellow Urine Appearance Clear Clear Comment puentes pt arrived with removed. Stool Size Large Stool Characteristics Soft Formed Laboratory Results WBC 4.95 k/cumm (4.4-10.8) 08/01/18 07:08 RBC 4.81 m/cumm (4.50-6.00) 08/01/18 07:08 Hgb 14.3 g/dL (13.5-17.5) 08/01/18 07:08 Hct 44.2 % (40.0-50.0) 08/01/18 07:08 MCV 91.9 fL (80-95) 08/01/18 07:08 MCH 29.7 pg (27.0-33.0) 08/01/18 07:08 MCHC 32.4 g/dL (32.0-36.0) 08/01/18 07:08 RDW 16.9 % (11.8-14.1) H 08/01/18 07:08 Plt Count 162 x1000/uL (130-400) 08/01/18 07:08 MPV 10.3 fL (8.0-11.0) 08/01/18 07:08 Immature Gran % 0.5 07/31/18 15:40 Neutrophils % 58.7 07/31/18 15:40 Lymphocytes % 28.2 07/31/18 15:40 Monocytes % 10.5 07/31/18 15:40 Eosinophils % 1.4 07/31/18 15:40 Basophils % 0.7 07/31/18 15:40 Absolute Neutrophils 3.35 k/cumm (1.2-6.7) 07/31/18 15:40 Absolute Lymphocytes 1.61 k/cumm (1.2-3.4) 07/31/18 15:40 Absolute Monocytes 0.60 k/cumm (0.11-0.7) 07/31/18 15:40 Absolute Eosinophils 0.08 k/cumm (0.0-0.7) 07/31/18 15:40 Absolute Basophils 0.04 k/cumm (0.0-0.2) 07/31/18 15:40 PT 12.3 sec (9.3-11.0) H 07/31/18 15:40 INR 1.2 (0.9-1.1) H 07/31/18 15:40 Sodium 146 mmol/L (136-145) H 08/01/18 07:08 Potassium 4.2 mmol/L (3.5-5.1) 08/01/18 07:08 Chloride 108 mmol/L (98-107) H 08/01/18 07:08 Carbon Dioxide 29.8 mmol/L (21.0-32.0) 08/01/18 07:08 Anion Gap 8.2 mmol/L (3-11) 08/01/18 07:08 BUN 22 mg/dL (7-18) H 08/01/18 07:08 Creatinine 1.25 mg/dL (0.70-1.30) 08/01/18 07:08 Estimated GFR/1.73 m2 55.30 (mL/min/1.73m2) 08/01/18 07:08 Glucose 100 mg/dL (70-100) 08/01/18 07:08 Calcium 8.6 mg/dL (8.5-10.1) 08/01/18 07:08 Magnesium 2.2 mg/dL (1.8-2.4) 07/31/18 15:40 Total Bilirubin 0.6 mg/dL (0.2-1.0) 08/01/18 07:08 AST 25 U/L (15-37) 08/01/18 07:08 ALT 16 U/L (12-78) 08/01/18 07:08 Alkaline Phosphatase 96 U/L (46-116) 08/01/18 07:08 Total Protein 6.8 g/dL (6.4-8.2) 08/01/18 07:08 Albumin 3.0 g/dL (3.4-5.0) L 08/01/18 07:08 TSH 5.70 uIU/mL (0.358-3.74) H 07/31/18 15:18 Free T4 1.30 ng/dL (0.76-1.46) 07/31/18 15:18 Urine Color Yellow (Yellow) 07/31/18 13:55 Urine Clarity Cloudy 07/31/18 13:55 Urine pH 5.5 (5-8) 07/31/18 13:55 Ur Specific [place] 1.020 (1.005-1.025) 07/31/18 13:55 Urine Protein 30 mg/dL (Negative) H 07/31/18 13:55 Urine Ketones Trace mg/dL (Negative) H 07/31/18 13:55 Urine Blood Moderate (Negative) H 07/31/18 13:55 Urine Nitrite Positive (Negative) H 07/31/18 13:55 Urine Bilirubin Negative (Negative) 07/31/18 13:55 Urine Urobilinogen 0.2 EU/dL (Up TO 0.2) 07/31/18 13:55 Ur Leukocyte Esterase Moderate (Negative) H 07/31/18 13:55 Urine RBC >50 (0-2) H 07/31/18 13:55 Urine WBC >50 HPF (0-5) 07/31/18 13:55 Ur Epithelial Cells Rare HPF (Negative) 07/31/18 13:55 Urine Crystals Negative HPF (Negative) 07/31/18 13:55 Urine Bacteria Moderate HPF (Negative) 07/31/18 13:55 Urine Casts Negative LPF (Negative) 07/31/18 13:55 Urine Mucus Negative (Negative) 07/31/18 13:55 Ur Culture Indicated? Yes 07/31/18 13:55 Urine Glucose Negative mg/dL (Negative) 07/31/18 13:55 Hep Bs Antigen Cancelled 08/01/18 12:16 Hepatitis C Antibody Cancelled 08/01/18 12:16 HIV 1&2 Ag/Ab, 4th Gen Cancelled 08/01/18 12:16 HIV 1&2 Antibody Rapid Cancelled 08/01/18 12:16
[2018-08-01 16:20] VITALS: BP 114/72; PULSE 63; RESP 18; TEMP 36.5; O2SAT 98
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
[2018-08-01 19:30] VITALS: BP 127/76; PULSE 56; RESP 19; TEMP 35.7; O2SAT 95
[2018-08-01] MEDS: Normal Saline Flush 10 ML SYR IVP (20:36)
[2018-08-01] MEDS: Mometasone 220 MCG 14 DOSE INHALER 2 PUFF IH (20:46)
[2018-08-01] MEDS: Latanoprost 0.005% 2.5 ML BTL OU (22:36)
[2018-08-01] MEDS: Mirtazapine 15 MG TAB PO (22:36)
[2018-08-02] VITALS (7 sets, daily range): BP systolic 118–143; BP diastolic 67–90; PULSE 62–76; RESP 16–18; TEMP 35.7–37.1; O2SAT 93–98
[2018-08-02] MEDS: Normal Saline 1,000 ML 100 ML IV ×3 (00:28→23:40)
[2018-08-02] MEDS: Levothyroxine 75 MCG TAB PO (07:14)
[2018-08-02] MEDS: Pantoprazole 40 MG TABCR PO ×2 (07:14→19:57)
[2018-08-02 07:30] LABS: Lactate-non-spesis 1.2 mmol/l (0.6-1.4)
[2018-08-02 07:36] LABS: Abs Immature Grans 0.01 k/cumm (0.0-0.09); Absolute Basophil Count 0.01 k/cumm (0.0-0.2); Absolute Eosinophil Count 0.07 k/cumm (0.0-0.7); Absolute Lymphocyte Count 1.33 k/cumm (1.2-3.4); Absolute Monocyte Count 0.41 k/cumm (0.11-0.7); Absolute Neutrophil Count 3.08 k/cumm (1.2-6.7); Basophils % 0.2; Eosinophils % 1.4; HCT 44.7 % (40.0-50.0); HGB 14.3 g/dL (13.5-17.5); Immature Grans % 0.2; Lymphocytes % 27.1; Mean Corpuscular Hemoglobin 29.5 pg (27.0-33.0); Mean Corpuscular Volume 92.4 fL (80-95); Mean Platelet Volume 10.2 fL (8.0-11.0); Monocytes % 8.4; Neutrophils % 62.7; Platelet Count 173 x1000/uL (130-400); RBC 4.84 m/cumm (4.50-6.00); RBC Distribution Width 17.2 % (11.8-14.1); White Blood Cell Count 4.91 k/cumm (4.4-10.8)
[2018-08-02] MEDS: MEROPENEM 1 GM in Normal Saline 100 ML IVPB ×2 (07:41→19:58)
[2018-08-02] MEDS: Fluticasone NASAL SPRAY 16 GM BTL NS ×2 (07:41→19:57)
[2018-08-02] MEDS: Docusate Sodium 100 MG CAP PO ×2 (07:42→20:00)
[2018-08-02] MEDS: Ursodiol 300 MG CAP PO ×2 (07:42→19:57)
[2018-08-02] MEDS: ALPRAZolam 0.25 MG TAB PO ×2 (07:42→19:57)
[2018-08-02] MEDS: Metoprolol 50 MG TAB 75 MG PO ×2 (07:42→19:57)
[2018-08-02] MEDS: Multivitamin w/Minerals TAB 1 TAB PO (07:42)
[2018-08-02 07:50] LABS: Anion Gap 7.4 mmol/L (3-11); BUN 20 mg/dL (7-18); CO2 26.6 mmol/L (21.0-32.0); CREATININE 1.39 mg/dL (0.70-1.30); Calcium 8.7 mg/dL (8.5-10.1); Chloride 109 mmol/L (98-107); Estimated GFR 48.92 (mL/min/1.73m2); Glucose 97 mg/dL (70-100); Potassium 4.7 mmol/L (3.5-5.1); Sodium 143 mmol/L (136-145)
[2018-08-02] MEDS: Mometasone 220 MCG 14 DOSE INHALER 2 PUFF IH ×2 (07:51→20:00)
--- NOTE | 2018-08-02 14:12 | PT.INTREAT ---
Date of service: 08/02/18 Time of Service: 14:12 PT Notes Inpatient Physical Therapy Treatment Note [facility] Date: 08/02/17 PRECAUTIONS: Fall SUBJECTIVE: Brenden states that he is feeling significantly better today. OBJECTIVE: PAIN: No complaints of pain BED MOBILITY/TRANSFERS Supine-sit: I Sit-supine: I Sit-stand: S Stand-sit: S GAIT Assistive Device: FWW in a.m.; 4WW in p.m. Weight bearing: Full Assist: SBA with both FWW and 4WW Distance: 250' in a.m. with FWW; 400' in p.m. with 4WW THEREX: Patient completed a lower extremity strengthening program in the standing position, with FWW support, as per flow sheet. Patient performed strengthening program in both a.m. and p.m. STAIRS: Up/down 6x4 and 4x6 using B rails and a step to pattern with supervision ASSESSMENT: Patient tolerated sessions well, without complaint. Patient was able to tolerate a progression in gait distance with 4 WW support without requiring standing rest. Patient was able to tolerate a progression in his strengthening program, progressing to standing exercises with supervision. Patient would benefit from continued gait training and strengthening for improved activity tolerance. PLAN: Continue with PTs POC TREATMENT CODE/TIME: Session 1: 30 minutes; [id number], [id number] Session 2: 25 minutes; [id number], [id number]
--- NOTE | 2018-08-02 14:17 | PTTR_ITS ---
Date of service: 08/02/18 Time of Service: 14:12 PT Notes Inpatient Physical Therapy Treatment Note [facility] Date: 08/02/17 PRECAUTIONS: Fall SUBJECTIVE: Brenden states that he is feeling significantly better today. OBJECTIVE: PAIN: No complaints of pain BED MOBILITY/TRANSFERS Supine-sit: I Sit-supine: I Sit-stand: S Stand-sit: S GAIT Assistive Device: FWW in a.m.; 4WW in p.m. Weight bearing: Full Assist: SBA with both FWW and 4WW Distance: 250' in a.m. with FWW; 400' in p.m. with 4WW THEREX: Patient completed a lower extremity strengthening program in the standing position, with FWW support, as per flow sheet. Patient performed strengthening program in both a.m. and p.m. STAIRS: Up/down 6x4 and 4x6 using B rails and a step to pattern with supervision ASSESSMENT: Patient tolerated sessions well, without complaint. Patient was able to tolerate a progression in gait distance with 4 WW support without requiring standing rest. Patient was able to tolerate a progression in his strengthening program, progressing to standing exercises with supervision. Patient would benefit from continued gait training and strengthening for improved activity tolerance. PLAN: Continue with PTs POC TREATMENT CODE/TIME: Session 1: 30 minutes; [id number], [id number] Session 2: 25 minutes; [id number], [id number]
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
--- NOTE | 2018-08-02 18:59 | PGE_ITS ---
Date of Service Date of service: 08/02/18 Time of Service: 18:54 Assessment and Plan (1) Generalized weakness: Current visit: Yes Status: Acute May have a chronic component to this, but potentially based on evidence of UTI. Continue treatment of infection, consult physical therapy, and monitor symptoms closely. Reportedly improved. 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 Continue Vancomycin and Meropenem day #2. Urine Culture with >100,000 colonies/ml of GNRs X2. Blood Culture with NG X24 hours. Appears to be improving. (3) Chronic constipation: Current visit: Yes Status: Chronic Currently with noted diarrhea and multiple bowel movements today. C. difficile and fecal leukocytes negative. Appears improving today. (4) Diarrhea: Current visit: Yes Status: Acute As above. (5) COPD (chronic obstructive pulmonary disease): Current visit: No Status: Chronic Continue home Spiriva and prn DuoNeb's. Appears quiescent. (6) Hypertension: Current visit: No Status: Chronic Noted. Currently on beta-suzie therapy. (7) Atrial fibrillation: Current visit: No Status: Chronic Continue beta-suzie. Also on anticoagulation with Dabigatran. Appears rate controlled. (8) DVT prophylaxis: Current visit: Yes Status: Acute On chronic anticoagulation with Pradaxa. Also on PPI therapy. Subjective Interval history since last seen: 83 year old man with a prior medical history significant for BPH with urinary retention, s/p suprapubic catheter placement in the past, prior UTIs with a history of multidrug-resistant and ESBL organisms admitted from [facility] Emergency Room diagnosis of a UTI. Mr. Ross has a prior history of A. fib on anticoagulation, CHF but with prior echo in 2016 showing a normal LVEF, sick sinus syndrome S/P PPM/AICD, PVD, and COPD. The patient also has a history of hypothyroidism, severe diverticulosis, anxiety, and prior EtOH and tobacco use. A prior course of choledocholithiasis led to an ERCP at [facility]. The patient lives alone in a basement apartment by choice. He presented to the ED with complaints of weakness as well as a clogged suprapubic catheter. Workup in the ED was positive for potential UTI, with CT scan showing no evidence of hydronephrosis. He did not have any leukocytosis on labs, and while his creatinine was mildly elevated it appeared to be at its former baseline. He was however also found to be hypothermic, with a low temperature of 34.9. He is also not significantly hypotensive or tachycardic. Today the patient reports overall improvement. His diarrhea has vastly improved, and he feels better overall. No other events reported. He remains mildly hypothermic but with improving temperatures at the time of exam. Exam Narrative Exam Narrative: General: Patient appears comfortable, laying in bed, AAOX3, NAD Neck: Supple CV: Irregularly irregular, nontachycardic, S1S2, No rubs, murmurs, or gallops. Pulmonary: Clear to auscultation bilaterally, no crackles, wheezing, or rhonchi Abdomen: + Bowel Sounds, soft, nontender, nondistended Vascular: No lower extremity edema. Skin is overall cool to touch bilaterally in the lower extremities, with appearance of chronic but likely significant PVD. Psych: Normal mood and affect. Objective Objective Clinical Data: Abnormal lab results 08/02/18 08/02/18 Range/Units 07:23 07:23 RDW 17.2 H (11.8-14.1) % Chloride 109 H (98-107) mmol/L BUN 20 H (7-18) mg/dL Creatinine 1.39 H (0.70-1.30) mg/dL Vital Signs Temperature 36.9 C 08/02/18 15:43 Temperature Source Tympanic 08/02/18 15:43 Pulse 74 08/02/18 15:43 Pulse Rhythm Regular 08/02/18 07:40 Respiratory Rate 18 08/02/18 15:43 Respiratory Effort Non-Labored 08/02/18 07:40 Respiratory Depth Normal 08/02/18 07:40 Respiratory Pattern Normal 08/02/18 07:40 Blood Pressure 138/67 08/02/18 15:43 Blood Pressure Mean 80 07/31/18 16:15 Blood Pressure Position Supine 07/31/18 13:25 Pulse Oximetry 97 08/02/18 15:43 Oxygen Delivery Method Room Air 08/02/18 15:43 Oxygen Flow Rate 0 08/02/18 15:43 Pain Level 4 08/02/18 11:40 Intake & Output 08/01/18 08/02/18 08/02/18 23:59 11:59 23:59 Intake Total 2029 / 0 2790 / 4625 183 / 4625 Output Total 250 / 1400 1300 / 1300 Balance 1779 1490 / 3325 1835 / 3325 Weight 81.8 kg Intake: IV 1310 / 2190 2300 / 3175 875 / 3175 Oral 720 / 1200 490 / 1450 960 / 1450 Output: Urine 250 / 1400 1300 / 1300 Other: Urine Color Straw Yellow Urine Appearance Clear Clear Stool Size Small Moderate Stool Characteristics Liquid Soft Brown Laboratory Results WBC 4.91 k/cumm (4.4-10.8) 08/02/18 07:23 RBC 4.84 m/cumm (4.50-6.00) 08/02/18 07:23 Hgb 14.3 g/dL (13.5-17.5) 08/02/18 07:23 Hct 44.7 % (40.0-50.0) 08/02/18 07:23 MCV 92.4 fL (80-95) 08/02/18 07:23 MCH 29.5 pg (27.0-33.0) 08/02/18 07:23 MCHC 32.0 g/dL (32.0-36.0) 08/02/18 07:23 RDW 17.2 % (11.8-14.1) H 08/02/18 07:23 Plt Count 173 x1000/uL (130-400) 08/02/18 07:23 MPV 10.2 fL (8.0-11.0) 08/02/18 07:23 Immature Gran % 0.2 08/02/18 07:23 Neutrophils % 62.7 08/02/18 07:23 Lymphocytes % 27.1 08/02/18 07:23 Monocytes % 8.4 08/02/18 07:23 Eosinophils % 1.4 08/02/18 07:23 Basophils % 0.2 08/02/18 07:23 Absolute Neutrophils 3.08 k/cumm (1.2-6.7) 08/02/18 07:23 Absolute Lymphocytes 1.33 k/cumm (1.2-3.4) 08/02/18 07:23 Absolute Monocytes 0.41 k/cumm (0.11-0.7) 08/02/18 07:23 Absolute Eosinophils 0.07 k/cumm (0.0-0.7) 08/02/18 07:23 Absolute Basophils 0.01 k/cumm (0.0-0.2) 08/02/18 07:23 PT 12.3 sec (9.3-11.0) H 07/31/18 15:40 INR 1.2 (0.9-1.1) H 07/31/18 15:40 Sodium 143 mmol/L (136-145) 08/02/18 07:23 Potassium 4.7 mmol/L (3.5-5.1) 08/02/18 07:23 Chloride 109 mmol/L (98-107) H 08/02/18 07:23 Carbon Dioxide 26.6 mmol/L (21.0-32.0) 08/02/18 07:23 Anion Gap 7.4 mmol/L (3-11) 08/02/18 07:23 BUN 20 mg/dL (7-18) H 08/02/18 07:23 Creatinine 1.39 mg/dL (0.70-1.30) H 08/02/18 07:23 Estimated GFR/1.73 m2 48.92 (mL/min/1.73m2) 08/02/18 07:23 Glucose 97 mg/dL (70-100) 08/02/18 07:23 Lactate 1.2 mmol/l (0.6-1.4) 08/02/18 07:23 Calcium 8.7 mg/dL (8.5-10.1) 08/02/18 07:23 Magnesium 2.2 mg/dL (1.8-2.4) 07/31/18 15:40 Total Bilirubin 0.6 mg/dL (0.2-1.0) 08/01/18 07:08 AST 25 U/L (15-37) 08/01/18 07:08 ALT 16 U/L (12-78) 08/01/18 07:08 Alkaline Phosphatase 96 U/L (46-116) 08/01/18 07:08 Total Protein 6.8 g/dL (6.4-8.2) 08/01/18 07:08 Albumin 3.0 g/dL (3.4-5.0) L 08/01/18 07:08 TSH 5.70 uIU/mL (0.358-3.74) H 07/31/18 15:18 Free T4 1.30 ng/dL (0.76-1.46) 07/31/18 15:18 Urine Color Yellow (Yellow) 07/31/18 13:55 Urine Clarity Cloudy 07/31/18 13:55 Urine pH 5.5 (5-8) 07/31/18 13:55 Ur Specific [place] 1.020 (1.005-1.025) 07/31/18 13:55 Urine Protein 30 mg/dL (Negative) H 07/31/18 13:55 Urine Ketones Trace mg/dL (Negative) H 07/31/18 13:55 Urine Blood Moderate (Negative) H 07/31/18 13:55 Urine Nitrite Positive (Negative) H 07/31/18 13:55 Urine Bilirubin Negative (Negative) 07/31/18 13:55 Urine Urobilinogen 0.2 EU/dL (Up TO 0.2) 07/31/18 13:55 Ur Leukocyte Esterase Moderate (Negative) H 07/31/18 13:55 Urine RBC >50 (0-2) H 07/31/18 13:55 Urine WBC >50 HPF (0-5) 07/31/18 13:55 Ur Epithelial Cells Rare HPF (Negative) 07/31/18 13:55 Urine Crystals Negative HPF (Negative) 07/31/18 13:55 Urine Bacteria Moderate HPF (Negative) 07/31/18 13:55 Urine Casts Negative LPF (Negative) 07/31/18 13:55 Urine Mucus Negative (Negative) 07/31/18 13:55 Ur Culture Indicated? Yes 07/31/18 13:55 Urine Glucose Negative mg/dL (Negative) 07/31/18 13:55 Hep Bs Antigen Cancelled 08/01/18 12:16 Hepatitis C Antibody Cancelled 08/01/18 12:16 HIV 1&2 Ag/Ab, 4th Gen Cancelled 08/01/18 12:16 HIV 1&2 Antibody Rapid Cancelled 08/01/18 12:16
[2018-08-02] MEDS: Mirtazapine 15 MG TAB PO (19:57)
[2018-08-02] MEDS: Latanoprost 0.005% 2.5 ML BTL OU (19:58)
[2018-08-03 04:30] VITALS: BP 132/82; PULSE 73; RESP 16; TEMP 36.7; O2SAT 96
[2018-08-03] MEDS: Levothyroxine 75 MCG TAB PO (06:47)
[2018-08-03 07:18] VITALS: BP 128/77; PULSE 75; RESP 15; TEMP 36.6; O2SAT 96
[2018-08-03 07:19] LABS: Abs Immature Grans 0.02 k/cumm (0.0-0.09); Absolute Basophil Count 0.02 k/cumm (0.0-0.2); Absolute Monocyte Count 0.59 k/cumm (0.11-0.7); Absolute Neutrophil Count 3.44 k/cumm (1.2-6.7); Basophils % 0.4; Eosinophils % 1.8; HCT 41.4 % (40.0-50.0); HGB 13.4 g/dL (13.5-17.5); Immature Grans % 0.4; Lymphocytes % 23.8; Mean Corp. HGB Concentration 32.4 g/dL (32.0-36.0); Mean Corpuscular Hemoglobin 29.6 pg (27.0-33.0); Mean Corpuscular Volume 91.4 fL (80-95); Mean Platelet Volume 10.4 fL (8.0-11.0); Monocytes % 10.8; Neutrophils % 62.8; Platelet Count 159 x1000/uL (130-400); RBC 4.53 m/cumm (4.50-6.00); RBC Distribution Width 16.9 % (11.8-14.1); White Blood Cell Count 5.47 k/cumm (4.4-10.8)
[2018-08-03 07:25] VITALS: O2SAT 96
[2018-08-03] MEDS: Mometasone 220 MCG 14 DOSE INHALER 2 PUFF IH ×2 (07:25→20:20)
[2018-08-03 07:37] LABS: Anion Gap 7.9 mmol/L (3-11); BUN 16 mg/dL (7-18); CO2 24.1 mmol/L (21.0-32.0); CREATININE 1.29 mg/dL (0.70-1.30); Calcium 8.5 mg/dL (8.5-10.1); Chloride 111 mmol/L (98-107); Estimated GFR 53.32 (mL/min/1.73m2); Glucose 89 mg/dL (70-100); Potassium 4.3 mmol/L (3.5-5.1); Sodium 143 mmol/L (136-145)
[2018-08-03] MEDS: MEROPENEM 1 GM in Normal Saline 100 ML IVPB ×2 (08:38→20:27)
[2018-08-03] MEDS: Normal Saline Flush 10 ML SYR IVP (08:40)
[2018-08-03] MEDS: Multivitamin w/Minerals TAB 1 TAB PO (08:40)
[2018-08-03] MEDS: ALPRAZolam 0.25 MG TAB PO ×2 (08:41→20:19)
[2018-08-03] MEDS: Pantoprazole 40 MG TABCR PO ×2 (08:41→20:20)
[2018-08-03] MEDS: Acetaminophen 500 MG TAB 1000 MG PO (08:41)
[2018-08-03] MEDS: Docusate Sodium 100 MG CAP PO ×2 (08:44→20:20)
[2018-08-03] MEDS: Ursodiol 300 MG CAP PO ×2 (08:44→20:19)
[2018-08-03] MEDS: Metoprolol 50 MG TAB 75 MG PO ×2 (08:46→20:20)
[2018-08-03] MEDS: Furosemide 40 MG TAB PO (08:46)
[2018-08-03] MEDS: Fluticasone NASAL SPRAY 16 GM BTL NS ×2 (08:48→20:19)
[2018-08-03 10:57] VITALS: BP 121/70; PULSE 62; RESP 16; TEMP 36.4; O2SAT 97
[2018-08-03 12:42] LABS: Campylobacter PCR SEE COMMENTS; Salmonella PCR SEE COMMENTS; Shiga Toxin PCR SEE COMMENTS; Shigella/Enteroinvasive Ecoli SEE COMMENTS
--- NOTE | 2018-08-03 13:13 | PT.INTREAT ---
Date of service: 08/03/18 Time of Service: 10:00 PT Notes Inpatient Physical Therapy Treatment Note [facility] Date: 08/03/17 PRECAUTIONS: Fall SUBJECTIVE: Brenden states that he is feeling light headed this morning. OBJECTIVE: PAIN: Left knee pain BED MOBILITY/TRANSFERS Supine-sit: I Sit-supine: I Sit-stand: S Stand-sit: S GAIT: Deferred due to left knee pain. THEREX: Patient completed a lower extremity strengthening program in the standing position, with FWW support, as per flow sheet. He requires CG throughout due to multiple minor losses of balance. He requires frequent rest periods due to symptoms of dizziness. He also has a single episode of left knee buckling during right LE hip AB. He requires seated rest period due to knee pain. Full therex program can be found noted on flowsheet. ASSESSMENT: Unable to complete full session this morning due to combination of light-headedness and left knee pain. PLAN: Plan to resume progressive ambulation and strengthening this afternoon, symptoms allowing. TREATMENT CODE/TIME: 15 minutes; 64461
--- NOTE | 2018-08-03 15:24 | PT.INTREAT ---
Date of service: 08/03/18 Time of Service: 15:24 PT Notes Inpatient Physical Therapy Treatment Note [facility] Date: 08/03/18 PRECAUTIONS: Fall SUBJECTIVE: Brenden reports that he is feeling a little better than he was this morning. OBJECTIVE: PAIN: No complaints of pain BED MOBILITY/TRANSFERS Sit-stand: S Stand-sit: S GAIT Assistive Device: 4 WW Weight bearing: Full Assist: SBA Distance: 500' THEREX: Patient completed a lower extremity strengthening program, in a seated position, as per flow sheet. ASSESSMENT: Patient was able to tolerate a progression in gait distance this afternoon with 4 WW support and SBA. Patient would benefit from continued strengthening for improved activity tolerance. PLAN: Continue with PTs POC TREATMENT CODE/TIME: 25 minutes; 83014, [id number]
[2018-08-03 15:30] VITALS: BP 133/77; PULSE 63; RESP 20; TEMP 36.2; O2SAT 99
--- NOTE | 2018-08-03 15:33 | PGE_ITS ---
Date of Service Date of service: 08/03/18 Time of Service: 15:31 Assessment and Plan (1) Generalized weakness: Current visit: Yes Status: Acute May have a chronic component to this, but potentially based on evidence of UTI. Continue treatment of infection, consult physical therapy, and monitor symptoms closely. Reportedly improved. 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 On Vancomycin and Meropenem day #3. Urine Culture with >100,000 colonies/ml of GNRs X2, now speciating to Klebsiella and E.Coli that is ESBL - will discontinue Vancomycin. Blood Culture with NG X48 hours. Appears to be improving overall, but with continued suprapubic tenderness. (3) Chronic constipation: Current visit: Yes Status: Chronic Previously with noted diarrhea and multiple bowel movements, now improved but with continued abdominal distention and mild discomfort. C. difficile and fecal leukocytes negative. Tenderness is suprapubic and may be related to UTI/Cystitis. Will check Abdominal Xray. CT at time of admission reviewed as well. (4) Diarrhea: Current visit: Yes Status: Acute As above. (5) COPD (chronic obstructive pulmonary disease): Current visit: No Status: Chronic Continue home Spiriva and prn DuoNeb's. Appears quiescent. (6) Hypertension: Current visit: No Status: Chronic Noted. Currently on beta-suzie therapy. (7) Atrial fibrillation: Current visit: No Status: Chronic Continue beta-suzie. Also on anticoagulation with Dabigatran. Appears rate controlled. (8) DVT prophylaxis: Current visit: Yes Status: Acute On chronic anticoagulation with Pradaxa. Also on PPI therapy. Subjective Interval history since last seen: 83 year old man with a prior medical history significant for BPH with urinary retention, s/p suprapubic catheter placement in the past, prior UTIs with a history of multidrug-resistant and ESBL organisms admitted from [facility] Emergency Room diagnosis of a UTI. Mr. Ross has a prior history of A. fib on anticoagulation, CHF but with prior echo in 2016 showing a normal LVEF, sick sinus syndrome S/P PPM/AICD, PVD, and COPD. The patient also has a history of hypothyroidism, severe diverticulosis, anxiety, and prior EtOH and tobacco use. A prior course of choledocholithiasis [place] [facility] patient lives alone in a basement apartment by choice. He presented to the ED with complaints of weakness as well as a clogged suprapubic catheter. Workup in the ED was positive for potential UTI, with CT scan showing no evidence of hydronephrosis. He did not have any leukocytosis on labs, and while his creatinine was mildly elevated it appeared to be at its former baseline. He was however also found to be hypothermic, with a low temperature of 34.9. He is also not significantly hypotensive or tachycardic. Today the patient reports overall improvement, but unchanged from yesterday. His diarrhea has improved, but he reports continued abdominal discomfort and distention. No other events reported. He remains mildly hypothermic but with improving temperatures at the time of exam. Exam Narrative Exam Narrative: General: Patient appears comfortable, laying in bed, AAOX3, NAD Neck: Supple CV: Irregularly irregular, nontachycardic, S1S2, No rubs, murmurs, or gallops. Pulmonary: Clear to auscultation bilaterally, no crackles, wheezing, or rhonchi Abdomen: + Bowel Sounds but hypoactive, soft, tenderness in the suprapubic/lower quadrant regions, distended, no rebound Vascular: No lower extremity edema. Skin is overall cool to touch bilaterally in the lower extremities, with appearance of chronic but likely significant PVD. Psych: Normal mood and affect. Objective Objective Clinical Data: Abnormal lab results 08/03/18 08/03/18 Range/Units 06:28 06:28 Hgb 13.4 L (13.5-17.5) g/dL RDW 16.9 H (11.8-14.1) % Chloride 111 H (98-107) mmol/L Vital Signs Temperature 36.4 C L 08/03/18 10:57 Temperature Source Tympanic 08/03/18 10:57 Pulse 62 08/03/18 10:57 Pulse Rhythm Regular 08/03/18 12:00 Respiratory Rate 16 08/03/18 10:57 Respiratory Effort Non-Labored 08/03/18 12:00 Respiratory Depth Normal 08/03/18 12:00 Respiratory Pattern Normal 08/03/18 12:00 Blood Pressure 121/70 08/03/18 10:57 Blood Pressure Mean 80 07/31/18 16:15 Blood Pressure Position Supine 07/31/18 13:25 Pulse Oximetry 97 08/03/18 10:57 Oxygen Delivery Method Room Air 08/03/18 10:57 Oxygen Flow Rate 0 08/03/18 10:57 Pain Level 3 08/03/18 10:57 Comment 08/03/18 10:57 Intake & Output 08/02/18 08/03/18 08/03/18 23:59 11:59 23:59 Intake Total 2260 / 5050 1530.000 / 2250.000 720 / 2250.000 Output Total 650 / 1950 550 / 550 Balance 1610 / 3100 1530.000 / 1700.000 170 / 1700.000 Weight 85.6 kg Intake: IV 1300 / 3600 1230.000 / 1230.000 Oral 960 / 1450 300 / 1020 720 / 1020 Output: Urine 650 / 1950 550 / 550 Other: Urine Color Straw Yellow Urine Appearance Clear Clear Stool Size Moderate Stool Characteristics Soft Liquid Brown Laboratory Results WBC 5.47 k/cumm (4.4-10.8) 08/03/18 06:28 RBC 4.53 m/cumm (4.50-6.00) 08/03/18 06:28 Hgb 13.4 g/dL (13.5-17.5) L 08/03/18 06:28 Hct 41.4 % (40.0-50.0) 08/03/18 06:28 MCV 91.4 fL (80-95) 08/03/18 06:28 MCH 29.6 pg (27.0-33.0) 08/03/18 06:28 MCHC 32.4 g/dL (32.0-36.0) 08/03/18 06:28 RDW 16.9 % (11.8-14.1) H 08/03/18 06:28 Plt Count 159 x1000/uL (130-400) 08/03/18 06:28 MPV 10.4 fL (8.0-11.0) 08/03/18 06:28 Immature Gran % 0.4 08/03/18 06:28 Neutrophils % 62.8 08/03/18 06:28 Lymphocytes % 23.8 08/03/18 06:28 Monocytes % 10.8 08/03/18 06:28 Eosinophils % 1.8 08/03/18 06:28 Basophils % 0.4 08/03/18 06:28 Absolute Neutrophils 3.44 k/cumm (1.2-6.7) 08/03/18 06:28 Absolute Lymphocytes 1.30 k/cumm (1.2-3.4) 08/03/18 06:28 Absolute Monocytes 0.59 k/cumm (0.11-0.7) 08/03/18 06:28 Absolute Eosinophils 0.10 k/cumm (0.0-0.7) 08/03/18 06:28 Absolute Basophils 0.02 k/cumm (0.0-0.2) 08/03/18 06:28 PT 12.3 sec (9.3-11.0) H 07/31/18 15:40 INR 1.2 (0.9-1.1) H 07/31/18 15:40 Sodium 143 mmol/L (136-145) 08/03/18 06:28 Potassium 4.3 mmol/L (3.5-5.1) 08/03/18 06:28 Chloride 111 mmol/L (98-107) H 08/03/18 06:28 Carbon Dioxide 24.1 mmol/L (21.0-32.0) 08/03/18 06:28 Anion Gap 7.9 mmol/L (3-11) 08/03/18 06:28 BUN 16 mg/dL (7-18) 08/03/18 06:28 Creatinine 1.29 mg/dL (0.70-1.30) 08/03/18 06:28 Estimated GFR/1.73 m2 53.32 (mL/min/1.73m2) 08/03/18 06:28 Glucose 89 mg/dL (70-100) 08/03/18 06:28 Lactate 1.2 mmol/l (0.6-1.4) 08/02/18 07:23 Calcium 8.5 mg/dL (8.5-10.1) 08/03/18 06:28 Magnesium 2.2 mg/dL (1.8-2.4) 07/31/18 15:40 Total Bilirubin 0.6 mg/dL (0.2-1.0) 08/01/18 07:08 AST 25 U/L (15-37) 08/01/18 07:08 ALT 16 U/L (12-78) 08/01/18 07:08 Alkaline Phosphatase 96 U/L (46-116) 08/01/18 07:08 Total Protein 6.8 g/dL (6.4-8.2) 08/01/18 07:08 Albumin 3.0 g/dL (3.4-5.0) L 08/01/18 07:08 TSH 5.70 uIU/mL (0.358-3.74) H 07/31/18 15:18 Free T4 1.30 ng/dL (0.76-1.46) 07/31/18 15:18 Urine Color Yellow (Yellow) 07/31/18 13:55 Urine Clarity Cloudy 07/31/18 13:55 Urine pH 5.5 (5-8) 07/31/18 13:55 Ur Specific [place] 1.020 (1.005-1.025) 07/31/18 13:55 Urine Protein 30 mg/dL (Negative) H 07/31/18 13:55 Urine Ketones Trace mg/dL (Negative) H 07/31/18 13:55 Urine Blood Moderate (Negative) H 07/31/18 13:55 Urine Nitrite Positive (Negative) H 07/31/18 13:55 Urine Bilirubin Negative (Negative) 07/31/18 13:55 Urine Urobilinogen 0.2 EU/dL (Up TO 0.2) 07/31/18 13:55 Ur Leukocyte Esterase Moderate (Negative) H 07/31/18 13:55 Urine RBC >50 (0-2) H 07/31/18 13:55 Urine WBC >50 HPF (0-5) 07/31/18 13:55 Ur Epithelial Cells Rare HPF (Negative) 07/31/18 13:55 Urine Crystals Negative HPF (Negative) 07/31/18 13:55 Urine Bacteria Moderate HPF (Negative) 07/31/18 13:55 Urine Casts Negative LPF (Negative) 07/31/18 13:55 Urine Mucus Negative (Negative) 07/31/18 13:55 Ur Culture Indicated? Yes 07/31/18 13:55 Urine Glucose Negative mg/dL (Negative) 07/31/18 13:55 Stool Campylobacter PCR See comments 08/01/18 17:02 Stool Salmonella PCR See comments 08/01/18 17:02 Stool Shigella PCR See comments 08/01/18 17:02 Hep Bs Antigen Cancelled 08/01/18 12:16 Hepatitis C Antibody Cancelled 08/01/18 12:16 HIV 1&2 Ag/Ab, 4th Gen Cancelled 08/01/18 12:16 HIV 1&2 Antibody Rapid Cancelled 08/01/18 12:16 Shiga Toxin (PCR) See comments 08/01/18 17:02
--- NOTE | 2018-08-03 16:43 | DI.RAD_ITS ---
SYMPTOM/DIAGNOSIS: ABDOMINAL DISTENSION, CONTINUED DIARRHEA FLAT AND UPRIGHT VIEWS ABDOMEN: Comparison is made with 28 July 2017. Cardiomegaly and pacemaker as well as right upper quadrant surgical clips and suprapubic catheter are noted. The bowel gas pattern is unremarkable. There is normal quantity of stool. There may be tiny bilateral pleural effusions. Scoliosis and degenerative changes are seen in the spine. IMPRESSION: No acute abnormality or change.
--- NOTE | 2018-08-03 17:01 | PDOC.CMPRO ---
Care Management Progress Note S/O: CM spoke with Brenden throughout the day, he reported feeling he would benefit from continued rehabilitation and continues to strengthen during PT sessions. [facility] offered Brenden an official bed offer today; which he accepted. Anticipate Brenden could be medically cleared by MD as soon as tomorrow. [place] spoke with Brenden's friend and neighbor, Ed, who reported he would be bringing a bag of Brenden's personal items to [facility] for [facility] He requested notice the day Dino is discharged from [facility]; CM agreed to update Ed with Brenden's ongoing permission. CM will continue to follow. A: 83 year old gentleman admitted to [facility] 07/31/18 for weakness with UTI. P: Brenden will discharge to [facility] and [facility] for continued SNF stay when ready per MD. He will transport via private RCT vehicle coordinated by this remote mortgage underwriter. CM agreed to contact Ed, and keep him updated with discharge planning considerations.
--- NOTE | 2018-08-03 17:06 | CMPROGNOTE_ITS ---
Care Management Progress Note S/O: CM spoke with Brenden throughout the day, he reported feeling he would benefit from continued rehabilitation and continues to strengthen during PT sessions. [facility] offered Brenden an official bed offer today; which he accepted. Anticipate Brenden could be medically cleared by MD as soon as tomorrow. [place] spoke with Brenden's friend and neighbor, Ed, who reported he would be bringing a bag of Brenden's personal items to [facility] He requested notice the day Dino is discharged from [facility]; CM agreed to update Ed with Brenden's ongoing permission. CM will continue to follow. A: 83 year old gentleman admitted to [facility] 07/31/18 for weakness with UTI. P: Brenden will discharge to [facility] for continued SNF stay when ready per MD. He will transport via private RCT vehicle coordinated by this abstract writer. CM agreed to contact Ed, and keep him updated with discharge planning considerations.
--- NOTE | 2018-08-03 17:09 | DI.VRAD_ITS ---
EXAM: XR Abdomen, 2 Views EXAM DATE/TIME: 08/03/2018 3:38 PM CLINICAL HISTORY: 83 years old, male; Signs and symptoms; Abdominal tenderness and bloating TECHNIQUE: Frontal view of the abdomen/pelvis with upright view of the abdomen. COMPARISON: CR ABDOMEN FLAT PLATE 07/28/2017 9:53 AM FINDINGS: Lower thorax: Partially visualized cardiac pacer wires. Gastrointestinal tract: Nonobstructive bowel gas pattern. Intraperitoneal space: Normal. No free air. Bones/joints: Mild levoscoliosis of the lumbar spine. No acute fracture or dislocation. IMPRESSION: No acute findings. Dictated and Authenticated by: Johnny Gibson MD. Ordering:FARIHA Chua MD
--- NOTE | 2018-08-03 18:55 | NUR.NOTE ---
Nursing Note:Report received from off going nurse, patient currently resting in bed, no signs of pain or discomfort at this time, respirations are even and unlabored, bed is in the low and locked position, side rails up x2, call light within reach.
[2018-08-03 19:41] VITALS: BP 119/65; PULSE 77; RESP 19; TEMP 36.5; O2SAT 99
[2018-08-03] MEDS: Latanoprost 0.005% 2.5 ML BTL OU (20:19)
[2018-08-03] MEDS: Mirtazapine 15 MG TAB PO (21:28)
[2018-08-04] VITALS (10 sets, daily range): BP systolic 115–151; BP diastolic 63–84; PULSE 64–76; RESP 18–24; TEMP 36.2–37.1; O2SAT 95–100
--- NOTE | 2018-08-04 03:48 | NUR.NOTE ---
Nursing Note: Called to bedside by patient, requesting to take off CPAP while awake, patient instructed to call nurse's station when ready to put CPAP back on.
[2018-08-04] MEDS: Levothyroxine 75 MCG TAB PO (05:50)
[2018-08-04 07:31] LABS: Abs Immature Grans 0.03 k/cumm (0.0-0.09); Absolute Basophil Count 0.02 k/cumm (0.0-0.2); Absolute Eosinophil Count 0.09 k/cumm (0.0-0.7); Absolute Monocyte Count 0.65 k/cumm (0.11-0.7); Basophils % 0.3; Eosinophils % 1.3; HCT 42.2 % (40.0-50.0); HGB 13.8 g/dL (13.5-17.5); Immature Grans % 0.4; Lymphocytes % 22.1; Mean Corp. HGB Concentration 32.7 g/dL (32.0-36.0); Mean Corpuscular Hemoglobin 29.9 pg (27.0-33.0); Mean Corpuscular Volume 91.3 fL (80-95); Mean Platelet Volume 10.1 fL (8.0-11.0); Monocytes % 9.6; Neutrophils % 66.3; Platelet Count 184 x1000/uL (130-400); RBC 4.62 m/cumm (4.50-6.00); RBC Distribution Width 16.9 % (11.8-14.1); White Blood Cell Count 6.79 k/cumm (4.4-10.8)
[2018-08-04] MEDS: Mometasone 220 MCG 14 DOSE INHALER 2 PUFF IH ×2 (07:31→20:02)
[2018-08-04 07:41] LABS: BUN 20 mg/dL (7-18); CREATININE 1.34 mg/dL (0.70-1.30); Calcium 8.8 mg/dL (8.5-10.1); Chloride 107 mmol/L (98-107); Estimated GFR 51.03 (mL/min/1.73m2); Glucose 97 mg/dL (70-100); Potassium 4.2 mmol/L (3.5-5.1); Sodium 142 mmol/L (136-145)
[2018-08-04] MEDS: Pantoprazole 40 MG TABCR PO ×2 (08:08→19:59)
[2018-08-04] MEDS: ALPRAZolam 0.25 MG TAB PO ×2 (08:09→19:58)
[2018-08-04] MEDS: Metoprolol 50 MG TAB 75 MG PO ×2 (08:13→19:58)
[2018-08-04] MEDS: Fluticasone NASAL SPRAY 16 GM BTL NS ×2 (08:15→20:01)
[2018-08-04] MEDS: Furosemide 40 MG TAB PO (08:22)
[2018-08-04] MEDS: Multivitamin w/Minerals TAB 1 TAB PO (08:29)
[2018-08-04] MEDS: Normal Saline Flush 10 ML SYR IVP ×4 (08:29→22:50)
[2018-08-04] MEDS: Ursodiol 300 MG CAP PO ×2 (09:59→19:58)
[2018-08-04] MEDS: MEROPENEM 1 GM in Normal Saline 100 ML IVPB ×2 (10:00→20:14)
--- NOTE | 2018-08-04 10:55 | PT.INTREAT ---
Date of service: 08/04/18 Time of Service: 08:55 PT Notes Inpatient Physical Therapy Treatment Note [facility] Date: 08/04/18 PRECAUTIONS: Fall SUBJECTIVE: Bill reports that he is feeling well. OBJECTIVE: PAIN: No complaints of pain BED MOBILITY/TRANSFERS Supine to sit: independent sit to supine: independent Sit-stand: Independent Stand-sit: Independent GAIT Assistive Device: 4 WW Weight bearing: Full Assist: supervision Distance: 200' THEREX: Patient completed a strengthening and balance retraining program as noted on flowsheet. He was able to tolerate addition of 3# ankle weights for LE strengthening activities and small ROCK balance activities in standing position. See flowsheet for full program. ASSESSMENT: Patient would benefit from continued strengthening for improved balance, safety and activity tolerance. PLAN: Continue per established POC TREATMENT CODE/TIME: 30 minutes; 42993, [id number] Rhonda Ray, PT, DPT
--- NOTE | 2018-08-04 10:58 | PTTR_ITS ---
Date of service: 08/04/18 Time of Service: 08:55 PT Notes Inpatient Physical Therapy Treatment Note [facility] Date: 08/04/18 PRECAUTIONS: Fall SUBJECTIVE: Bill reports that he is feeling well. OBJECTIVE: PAIN: No complaints of pain BED MOBILITY/TRANSFERS Supine to sit: independent sit to supine: independent Sit-stand: Independent Stand-sit: Independent GAIT Assistive Device: 4 WW Weight bearing: Full Assist: supervision Distance: 200' THEREX: Patient completed a strengthening and balance retraining program as noted on flowsheet. He was able to tolerate addition of 3# ankle weights for LE strengthening activities and small ROCK balance activities in standing position. See flowsheet for full program. ASSESSMENT: Patient would benefit from continued strengthening for improved balance, safety and activity tolerance. PLAN: Continue per established POC TREATMENT CODE/TIME: 30 minutes; 24902, 22501 Rhonda Ray, PT, DPT
--- NOTE | 2018-08-04 13:37 | PT.INTREAT ---
Date of service: 08/04/18 Time of Service: 13:37 PT Notes Inpatient Physical Therapy Treatment Note [facility] Date: 08/04/18 PRECAUTIONS: Fall SUBJECTIVE: Bill is willing to participate in PT. OBJECTIVE: PAIN: No complaints of pain BED MOBILITY/TRANSFERS Sit-stand: I Stand-sit: I GAIT Assistive Device: 4 WW Weight bearing: Full Assist: S Distance: 250' THEREX: Patient completed a resisted upper extremity and lower extremity strengthening program, as per flow sheet. Upper extremity exercises were performed in a standing position with SBA. ASSESSMENT: Patient tolerated session well with out complaint. Patient was able to tolerate a progression in upper extremity strengthening program. Patient would benefit from continued strengthening as well as gait training for improved activity tolerance. PLAN: Continue with PTs POC TREATMENT CODE/TIME: 30 minutes; 54029, 63090
--- NOTE | 2018-08-04 13:46 | PDOC.CMPRO ---
Care Management Progress Note S/O: Per MD, Dino is not yet clinically ready for discharge; CM updated Geovany of Admissions at [facility]. CM inquired as to the rehab's ability to manage Q12 ABX as Dino will require this treatment for a few more days, minimum. Geovany reported he would contact this curriculum writer with a determination tomorrow morning. Brenden is making great gains with PT and remains pleasant in interaction. CM will continue to follow. A: 83 year old gentleman admitted to [facility] 07/31/18 for weakness with UTI. P: Brenden will discharge to [facility] for continued SNF stay when ready per MD. He will transport via private RCT vehicle coordinated by this curriculum writer. CM agreed to contact Ed, and keep him updated with discharge planning considerations.
--- NOTE | 2018-08-04 13:50 | CMPROGNOTE_ITS ---
Care Management Progress Note S/O: Per MD, Dino is not yet clinically ready for discharge; CM updated Geovany of Admissions at [facility]. CM inquired as to the rehab's ability to manage Q12 ABX as Dino will require this treatment for a few more days, minimum. Geovany reported he would contact this medical writer with a determination tomorrow morning. Brenden is making great gains with PT and remains pleasant in interaction. CM will continue to follow. A: 83 year old gentleman admitted to [facility] 07/31/18 for weakness with UTI. P: Brenden will discharge to [facility] for continued SNF stay when ready per MD. He will transport via private RCT vehicle coordinated by this medical writer. CM agreed to contact Ed, and keep him updated with discharge planning considerations.
--- NOTE | 2018-08-04 18:24 | PGE_ITS ---
Date of Service Date of service: 08/04/18 Time of Service: 18:19 Assessment and Plan (1) Generalized weakness: Current visit: Yes Status: Acute May have a chronic component to this, but potentially based on evidence of UTI. Continue treatment of infection, consult physical therapy, and monitor symptoms closely. Reportedly improved. 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 On Meropenem day #4. Urine Culture with >100,000 colonies/ml of GNRs X2, now speciating to Klebsiella and E.Coli that is ESBL - Vancomycin was discontinued. Blood Culture with NG X72 hours. Appears to be improving overall. (3) Chronic constipation: Current visit: Yes Status: Chronic Previously with noted diarrhea and multiple bowel movements, now improved but with continued abdominal distention and mild discomfort. C. difficile and fecal leukocytes negative. Tenderness is suprapubic and may be related to UTI/Cystitis. Also with point tenderness slightly above the umbilicus, reported by patient as chronic and unchanged. Will check Abdominal Xray. CT at time of admission reviewed as well, and repeat imaging of the abdomen with an x-ray was also negative. (4) Diarrhea: Current visit: Yes Status: Acute As above. (5) COPD (chronic obstructive pulmonary disease): Current visit: No Status: Chronic Continue home Spiriva and prn DuoNeb's. Appears quiescent. (6) Hypertension: Current visit: No Status: Chronic Noted. Currently on beta-suzie therapy. (7) Atrial fibrillation: Current visit: No Status: Chronic Continue beta-suzie. Also on anticoagulation with Dabigatran. Appears rate controlled. (8) DVT prophylaxis: Current visit: Yes Status: Acute On chronic anticoagulation with Pradaxa. Also on PPI therapy. Subjective Interval history since last seen: 83 year old man with a prior medical history significant for BPH with urinary retention, s/p suprapubic catheter placement in the past, prior UTIs with a history of multidrug-resistant and ESBL organisms admitted from [facility] Emergency Room diagnosis of a UTI. Mr. Ross has a prior history of A. fib on anticoagulation, CHF but with prior echo in 2016 showing a normal LVEF, sick sinus syndrome S/P PPM/AICD, PVD, and COPD. The patient also has a history of hypothyroidism, severe diverticulosis, anxiety, and prior EtOH and tobacco use. A prior course of choledocholithiasis led to an ERCP at [facility]. The patient lives alone in a basement apartment by choice. He presented to the ED with complaints of weakness as well as a clogged suprapubic catheter. Workup in the ED was positive for potential UTI, with CT scan showing no evidence of hydronephrosis. He did not have any leukocytosis on labs, and while his creatinine was mildly elevated it appeared to be at its former baseline. He was however found to be hypothermic, with a low temperature of 34.9. He was also not significantly hypotensive or tachycardic. The patient reports continued overall improvement, but with weakness. His diarrhea has improved, along with the abdominal discomfort and distention. No other events reported. He remains afebrile. Exam Narrative Exam Narrative: General: Patient appears comfortable, laying in bed, AAOX3, NAD Neck: Supple CV: Irregularly irregular, nontachycardic, S1S2, No rubs, murmurs, or gallops. Pulmonary: Clear to auscultation bilaterally, no crackles, wheezing, or rhonchi Abdomen: + Bowel Sounds and improved since prior exam, soft, tenderness in the suprapubic/lower quadrant regions that is not near the patient's bladder. Tenderness is reportedly chronic and unchanged for a number of years. No distention and no rebound noted. Vascular: No lower extremity edema. Skin is overall cool to touch bilaterally in the lower extremities, with appearance of chronic but likely significant PVD. Psych: Normal mood and affect. Objective Objective Clinical Data: Abnormal lab results 08/04/18 08/04/18 Range/Units 07:04 07:04 RDW 16.9 H (11.8-14.1) % BUN 20 H (7-18) mg/dL Creatinine 1.34 H (0.70-1.30) mg/dL Vital Signs Temperature 36.6 C 08/04/18 16:34 Temperature Source Tympanic 08/04/18 16:34 Pulse 76 08/04/18 16:34 Pulse Rhythm Regular 08/04/18 16:33 Respiratory Rate 24 08/04/18 16:34 Respiratory Effort Non-Labored 08/04/18 16:33 Respiratory Depth Normal 08/04/18 16:33 Respiratory Pattern Normal 08/04/18 16:33 Blood Pressure 151/80 H 08/04/18 16:34 Blood Pressure Mean 80 07/31/18 16:15 Blood Pressure Position Supine 07/31/18 13:25 Pulse Oximetry 99 08/04/18 16:34 Oxygen Delivery Method Room Air 08/04/18 16:34 Oxygen Flow Rate 0 08/04/18 16:34 Pain Level 10 08/04/18 16:25 Comment 08/03/18 10:57 Intake & Output 08/03/18 08/04/18 08/04/18 23:59 11:59 23:59 Intake Total 1170 / 2700.000 1240 / 2380 1140 / 2380 Output Total 3400 / 3400 550 / 2400 1850 / 2400 Balance -2230 / -700.000 690 / -20 -710 / -20 Weight 84.1 kg Intake: IV 100 / 1330.000 110 / 110 Oral 1070 / 1370 1130 / 2270 1140 / 2270 Output: Urine 3400 / 3400 550 / 2400 1850 / 2400 Other: Urine Color Yellow Yellow Yellow Urine Appearance Clear Clear Clear Comment Cleaned by INTERNET SALES DIRECTOR, dressing replaced Stool Size Small Moderate Stool Characteristics Formed Soft Laboratory Results WBC 6.79 k/cumm (4.4-10.8) 08/04/18 07:04 RBC 4.62 m/cumm (4.50-6.00) 08/04/18 07:04 Hgb 13.8 g/dL (13.5-17.5) 08/04/18 07:04 Hct 42.2 % (40.0-50.0) 08/04/18 07:04 MCV 91.3 fL (80-95) 08/04/18 07:04 MCH 29.9 pg (27.0-33.0) 08/04/18 07:04 MCHC 32.7 g/dL (32.0-36.0) 08/04/18 07:04 RDW 16.9 % (11.8-14.1) H 08/04/18 07:04 Plt Count 184 x1000/uL (130-400) 08/04/18 07:04 MPV 10.1 fL (8.0-11.0) 08/04/18 07:04 Immature Gran % 0.4 08/04/18 07:04 Neutrophils % 66.3 08/04/18 07:04 Lymphocytes % 22.1 08/04/18 07:04 Monocytes % 9.6 08/04/18 07:04 Eosinophils % 1.3 08/04/18 07:04 Basophils % 0.3 08/04/18 07:04 Absolute Neutrophils 4.50 k/cumm (1.2-6.7) 08/04/18 07:04 Absolute Lymphocytes 1.50 k/cumm (1.2-3.4) 08/04/18 07:04 Absolute Monocytes 0.65 k/cumm (0.11-0.7) 08/04/18 07:04 Absolute Eosinophils 0.09 k/cumm (0.0-0.7) 08/04/18 07:04 Absolute Basophils 0.02 k/cumm (0.0-0.2) 08/04/18 07:04 PT 12.3 sec (9.3-11.0) H 07/31/18 15:40 INR 1.2 (0.9-1.1) H 07/31/18 15:40 Sodium 142 mmol/L (136-145) 08/04/18 07:04 Potassium 4.2 mmol/L (3.5-5.1) 08/04/18 07:04 Chloride 107 mmol/L (98-107) 08/04/18 07:04 Carbon Dioxide 25.0 mmol/L (21.0-32.0) 08/04/18 07:04 Anion Gap 10.0 mmol/L (3-11) 08/04/18 07:04 BUN 20 mg/dL (7-18) H 08/04/18 07:04 Creatinine 1.34 mg/dL (0.70-1.30) H 08/04/18 07:04 Estimated GFR/1.73 m2 51.03 (mL/min/1.73m2) 08/04/18 07:04 Glucose 97 mg/dL (70-100) 08/04/18 07:04 Lactate 1.2 mmol/l (0.6-1.4) 08/02/18 07:23 Calcium 8.8 mg/dL (8.5-10.1) 08/04/18 07:04 Magnesium 2.2 mg/dL (1.8-2.4) 07/31/18 15:40 Total Bilirubin 0.6 mg/dL (0.2-1.0) 08/01/18 07:08 AST 25 U/L (15-37) 08/01/18 07:08 ALT 16 U/L (12-78) 08/01/18 07:08 Alkaline Phosphatase 96 U/L (46-116) 08/01/18 07:08 Total Protein 6.8 g/dL (6.4-8.2) 08/01/18 07:08 Albumin 3.0 g/dL (3.4-5.0) L 08/01/18 07:08 TSH 5.70 uIU/mL (0.358-3.74) H 07/31/18 15:18 Free T4 1.30 ng/dL (0.76-1.46) 07/31/18 15:18 Urine Color Yellow (Yellow) 07/31/18 13:55 Urine Clarity Cloudy 07/31/18 13:55 Urine pH 5.5 (5-8) 07/31/18 13:55 Ur Specific [place] 1.020 (1.005-1.025) 07/31/18 13:55 Urine Protein 30 mg/dL (Negative) H 07/31/18 13:55 Urine Ketones Trace mg/dL (Negative) H 07/31/18 13:55 Urine Blood Moderate (Negative) H 07/31/18 13:55 Urine Nitrite Positive (Negative) H 07/31/18 13:55 Urine Bilirubin Negative (Negative) 07/31/18 13:55 Urine Urobilinogen 0.2 EU/dL (Up TO 0.2) 07/31/18 13:55 Ur Leukocyte Esterase Moderate (Negative) H 07/31/18 13:55 Urine RBC >50 (0-2) H 07/31/18 13:55 Urine WBC >50 HPF (0-5) 07/31/18 13:55 Ur Epithelial Cells Rare HPF (Negative) 07/31/18 13:55 Urine Crystals Negative HPF (Negative) 07/31/18 13:55 Urine Bacteria Moderate HPF (Negative) 07/31/18 13:55 Urine Casts Negative LPF (Negative) 07/31/18 13:55 Urine Mucus Negative (Negative) 07/31/18 13:55 Ur Culture Indicated? Yes 07/31/18 13:55 Urine Glucose Negative mg/dL (Negative) 07/31/18 13:55 Stool Campylobacter PCR See comments 08/01/18 17:02 Stool Salmonella PCR See comments 08/01/18 17:02 Stool Shigella PCR See comments 08/01/18 17:02 Vancomycin Trough Cancelled 08/03/18 17:00 Hep Bs Antigen Cancelled 08/01/18 12:16 Hepatitis C Antibody Cancelled 08/01/18 12:16 HIV 1&2 Ag/Ab, 4th Gen Cancelled 08/01/18 12:16 HIV 1&2 Antibody Rapid Cancelled 08/01/18 12:16 Shiga Toxin (PCR) See comments 08/01/18 17:02
[2018-08-04] MEDS: Mirtazapine 15 MG TAB PO (19:59)
[2018-08-04] MEDS: Latanoprost 0.005% 2.5 ML BTL OU (20:02)
[2018-08-04] MEDS: Mylanta Suspension 30 ML CUP PO (21:16)
[2018-08-04] MEDS: Normal Saline 500 ML 200 ML IV (21:45)
[2018-08-04] MEDS: Metoclopramide 10 MG/2 ML VIAL IVP (21:56)
--- NOTE | 2018-08-04 22:08 | PGE_ITS ---
Date of Service Date of service: 08/04/18 Time of Service: 21:57 Assessment and Plan (1) Abdominal pain, acute, generalized: Current visit: Yes Status: Acute differential dx includes partial SBO, incipient ileus, pancreatitis, ischemic colitis, PUD. I will check CT of his abdomen and pelvis w/out contrast, give antiemetics, iv zantac, start iv fluids and check repeat labs including CBC, CMP, lipase, lactate Subjective Patient reports: nausea Interval history since last seen: Patient has recurrent nausea and dry heaves along w/ burning type LUQ/epigastric abdominal pains. Earlier today he had a KUB that was unremarkable and his sx improved after antacids w/ viscous lidocaine. He was tried on Mylanta tonight but could not keep this down. He reportedly had two BM earlier today. He has no chest pain or dyspnea. He is on antibiotics for ESBL E. coli and Klebsiella complicated UTI (he has chronic suprapubic catheter for chronic urinary retention from BPH/bladder outlet obstruction). Because of diarrhea/loose BM's being on antibiotics for his UTI, his stool was checked on 08/01/2018 for lactoferrin (negative) and C. difficile toxin and antigen (both negative). I am going to check CT of his abdomen w/out contrast and check lactate and lipase to rule out ischemic colitis as well as rule out pancreatitis. I had nursing give him Relan for his nausea and dry heaves. I will start iv fluids and hold his lasix as his BUN and creatinine are climbing and he is not taking po very well this evening. Exam Const General: cooperative, acute distress mild and ill appearing acutely Nutritional Appearance: average body habitus Orientation: alert and oriented x3 Resp Effort & Inspection: normal respiratory effort and able to speak in complete sentences Auscultation: clear to auscultation bilaterally Cardio Jugular venous pressure: no JVD Palpation: normal PMI Rate: regular rate Rhythm: regular rhythm GI Inspection: distended Palpation: soft, guarding in the LUQ, no hepatosplenomegaly and no masses Percussion: tympanic to percussion Auscultation: high-pitched sounds Other: suprapubic catheter draining clear yellow urine, no erythema around site; site is nontender Objective Objective Clinical Data: Abnormal lab results 08/04/18 08/04/18 Range/Units 07:04 07:04 RDW 16.9 H (11.8-14.1) % BUN 20 H (7-18) mg/dL Creatinine 1.34 H (0.70-1.30) mg/dL Vital Signs Temperature 36.6 C 08/04/18 19:18 Temperature Source Tympanic 08/04/18 19:18 Pulse 66 08/04/18 19:18 Pulse Rhythm Regular 08/04/18 16:33 Respiratory Rate 18 08/04/18 19:18 Respiratory Effort Non-Labored 08/04/18 16:33 Respiratory Depth Normal 08/04/18 16:33 Respiratory Pattern Normal 08/04/18 16:33 Blood Pressure 131/77 08/04/18 19:18 Blood Pressure Mean 80 07/31/18 16:15 Blood Pressure Position Supine 07/31/18 13:25 Pulse Oximetry 97 08/04/18 19:18 Oxygen Delivery Method Room Air 08/04/18 19:18 Oxygen Flow Rate 0 08/04/18 19:18 Pain Level 10 08/04/18 16:25 Comment 08/03/18 10:57 Intake & Output 08/03/18 08/04/18 08/04/18 23:59 11:59 23:59 Intake Total 1170 / 2700.000 1240 / 2960 1720 / 2960 Output Total 3400 / 3400 550 / 3200 2650 / 3200 Balance -2230 / -700.000 690 / -240 -930 / -240 Weight 84.1 kg Intake: IV 100 / 1330.000 110 / 210 100 / 210 Oral 1070 / 1370 1130 / 2750 1620 / 2750 Output: Urine 3400 / 3400 550 / 3200 2650 / 3200 Other: Urine Color Yellow Yellow Yellow Urine Appearance Clear Clear Clear Comment Cleaned by CASE ASSEMBLER, dressing replaced Stool Size Small Moderate Stool Characteristics Formed Soft Laboratory Results WBC 6.79 k/cumm (4.4-10.8) 08/04/18 07:04 RBC 4.62 m/cumm (4.50-6.00) 08/04/18 07:04 Hgb 13.8 g/dL (13.5-17.5) 08/04/18 07:04 Hct 42.2 % (40.0-50.0) 08/04/18 07:04 MCV 91.3 fL (80-95) 08/04/18 07:04 MCH 29.9 pg (27.0-33.0) 08/04/18 07:04 MCHC 32.7 g/dL (32.0-36.0) 08/04/18 07:04 RDW 16.9 % (11.8-14.1) H 08/04/18 07:04 Plt Count 184 x1000/uL (130-400) 08/04/18 07:04 MPV 10.1 fL (8.0-11.0) 08/04/18 07:04 Immature Gran % 0.4 08/04/18 07:04 Neutrophils % 66.3 08/04/18 07:04 Lymphocytes % 22.1 08/04/18 07:04 Monocytes % 9.6 08/04/18 07:04 Eosinophils % 1.3 08/04/18 07:04 Basophils % 0.3 08/04/18 07:04 Absolute Neutrophils 4.50 k/cumm (1.2-6.7) 08/04/18 07:04 Absolute Lymphocytes 1.50 k/cumm (1.2-3.4) 08/04/18 07:04 Absolute Monocytes 0.65 k/cumm (0.11-0.7) 08/04/18 07:04 Absolute Eosinophils 0.09 k/cumm (0.0-0.7) 08/04/18 07:04 Absolute Basophils 0.02 k/cumm (0.0-0.2) 08/04/18 07:04 PT 12.3 sec (9.3-11.0) H 07/31/18 15:40 INR 1.2 (0.9-1.1) H 07/31/18 15:40 Sodium 142 mmol/L (136-145) 08/04/18 07:04 Potassium 4.2 mmol/L (3.5-5.1) 08/04/18 07:04 Chloride 107 mmol/L (98-107) 08/04/18 07:04 Carbon Dioxide 25.0 mmol/L (21.0-32.0) 08/04/18 07:04 Anion Gap 10.0 mmol/L (3-11) 08/04/18 07:04 BUN 20 mg/dL (7-18) H 08/04/18 07:04 Creatinine 1.34 mg/dL (0.70-1.30) H 08/04/18 07:04 Estimated GFR/1.73 m2 51.03 (mL/min/1.73m2) 08/04/18 07:04 Glucose 97 mg/dL (70-100) 08/04/18 07:04 Lactate 1.2 mmol/l (0.6-1.4) 08/02/18 07:23 Calcium 8.8 mg/dL (8.5-10.1) 08/04/18 07:04 Magnesium 2.2 mg/dL (1.8-2.4) 07/31/18 15:40 Total Bilirubin 0.6 mg/dL (0.2-1.0) 08/01/18 07:08 AST 25 U/L (15-37) 08/01/18 07:08 ALT 16 U/L (12-78) 08/01/18 07:08 Alkaline Phosphatase 96 U/L (46-116) 08/01/18 07:08 Total Protein 6.8 g/dL (6.4-8.2) 08/01/18 07:08 Albumin 3.0 g/dL (3.4-5.0) L 08/01/18 07:08 TSH 5.70 uIU/mL (0.358-3.74) H 07/31/18 15:18 Free T4 1.30 ng/dL (0.76-1.46) 07/31/18 15:18 Urine Color Yellow (Yellow) 07/31/18 13:55 Urine Clarity Cloudy 07/31/18 13:55 Urine pH 5.5 (5-8) 07/31/18 13:55 Ur Specific [place] 1.020 (1.005-1.025) 07/31/18 13:55 Urine Protein 30 mg/dL (Negative) H 07/31/18 13:55 Urine Ketones Trace mg/dL (Negative) H 07/31/18 13:55 Urine Blood Moderate (Negative) H 07/31/18 13:55 Urine Nitrite Positive (Negative) H 07/31/18 13:55 Urine Bilirubin Negative (Negative) 07/31/18 13:55 Urine Urobilinogen 0.2 EU/dL (Up TO 0.2) 07/31/18 13:55 Ur Leukocyte Esterase Moderate (Negative) H 07/31/18 13:55 Urine RBC >50 (0-2) H 07/31/18 13:55 Urine WBC >50 HPF (0-5) 07/31/18 13:55 Ur Epithelial Cells Rare HPF (Negative) 07/31/18 13:55 Urine Crystals Negative HPF (Negative) 07/31/18 13:55 Urine Bacteria Moderate HPF (Negative) 07/31/18 13:55 Urine Casts Negative LPF (Negative) 07/31/18 13:55 Urine Mucus Negative (Negative) 07/31/18 13:55 Ur Culture Indicated? Yes 07/31/18 13:55 Urine Glucose Negative mg/dL (Negative) 07/31/18 13:55 Stool Campylobacter PCR See comments 08/01/18 17:02 Stool Salmonella PCR See comments 08/01/18 17:02 Stool Shigella PCR See comments 08/01/18 17:02 Vancomycin Trough Cancelled 08/03/18 17:00 Hep Bs Antigen Cancelled 08/01/18 12:16 Hepatitis C Antibody Cancelled 08/01/18 12:16 HIV 1&2 Ag/Ab, 4th Gen Cancelled 08/01/18 12:16 HIV 1&2 Antibody Rapid Cancelled 08/01/18 12:16 Shiga Toxin (PCR) See comments 08/01/18 17:02
[2018-08-04 22:25] LABS: Lactate-non-spesis 1.3 mmol/l (0.6-1.4)
[2018-08-04 22:27] LABS: Abs Immature Grans 0.03 k/cumm (0.0-0.09); Absolute Basophil Count 0.02 k/cumm (0.0-0.2); Absolute Eosinophil Count 0.13 k/cumm (0.0-0.7); Absolute Lymphocyte Count 1.93 k/cumm (1.2-3.4); Absolute Monocyte Count 0.76 k/cumm (0.11-0.7); Absolute Neutrophil Count 3.63 k/cumm (1.2-6.7); Basophils % 0.3; HCT 43.1 % (40.0-50.0); HGB 14.2 g/dL (13.5-17.5); Immature Grans % 0.5; Lymphocytes % 29.7; Mean Corp. HGB Concentration 32.9 g/dL (32.0-36.0); Mean Corpuscular Hemoglobin 29.4 pg (27.0-33.0); Mean Corpuscular Volume 89.2 fL (80-95); Mean Platelet Volume 9.8 fL (8.0-11.0); Monocytes % 11.7; Neutrophils % 55.8; Platelet Count 169 x1000/uL (130-400); RBC 4.83 m/cumm (4.50-6.00); RBC Distribution Width 16.7 % (11.8-14.1)
--- NOTE | 2018-08-04 22:36 | DI.CT_ITS ---
SYMPTOM/DIAGNOSIS: ABDOMINAL PAIN, BLOATING S/P ERCP, SPHINCTEROTOMY ABDOMEN AND PELVIC CT; 08/04/18 CT examination of the abdomen and pelvis was performed without contrast administration. There are small bilateral pleural effusions which were not present on previous CT of 07/31/18. The patient has reportedly had recent ERCP and sphincterotomy with stone extraction from the biliary tract. There is gas in the biliary tract. No biliary dilatation. No focal hepatic abnormalities seen by noncontrast criteria. Multiple small splenic calcifications noted. The pancreas is grossly unremarkable in appearance. Mildly enlarged portal nodes noted which are nonspecific. Adrenals and kidneys are unremarkable except for probable mild renal cortical atrophy bilaterally. Abdominal aorta is of normal diameter. No significant abdominal wall hernia seen, although there are small fat containing inguinal hernias. Suprapubic urinary bladder catheter is present and the bladder has collapsed. Appendix is normal. There is marked colonic diverticulosis without evidence of diverticulitis. CONCLUSION: Bilateral pleural effusions which are new since the previous examination. No other acute findings.
[2018-08-04 22:39] LABS: ALT 18 U/L (12-78); AST 24 U/L (15-37); Alkaline Phosphatase 113 U/L (46-116); Anion Gap 8.1 mmol/L (3-11); BUN 21 mg/dL (7-18); Bilirubin, Total 0.6 mg/dL (0.2-1.0); CO2 27.9 mmol/L (21.0-32.0); Calcium 9.1 mg/dL (8.5-10.1); Chloride 105 mmol/L (98-107); Estimated GFR 38.78 (mL/min/1.73m2); Glucose 105 mg/dL (70-100); Potassium 3.9 mmol/L (3.5-5.1); Sodium 141 mmol/L (136-145); Total Protein 6.9 g/dL (6.4-8.2)
[2018-08-04] MEDS: Lactated Ringers 1,000 ML 80 ML IV (22:53)
--- NOTE | 2018-08-04 23:18 | DI.VRAD_ITS ---
EXAM: CT Abdomen and Pelvis Without Contrast EXAM DATE/TIME: 08/04/2018 9:55 PM CLINICAL HISTORY: 83 years old, male; Signs and symptoms; Other: Abd pain, bloating; Patient HX: S/P ercp, cbd sphincterotomy and stone extraction TECHNIQUE: Axial computed tomography images of the abdomen and pelvis without contrast. Coronal and sagittal reformatted images were created and reviewed. COMPARISON: CT Private^RENAL COLIC (Adult) 07/31/2018 2:12 PM FINDINGS: Lower thorax: Small bilateral pleural effusions. Dependent atelectasis at the lung bases. ABDOMEN: Liver: Grossly unremarkable unenhanced liver. Gallbladder and bile ducts: Prior cholecystectomy. Intra-and extrahepatic pneumobilia, commonly seen with sphincterotomy. Pancreas: Mild fatty atrophy of the pancreas. Spleen: Calcified splenic granulomas. Adrenals: Normal appearing adrenal glands. Kidneys and ureters: Grossly unremarkable unenhanced kidneys. No radiopaque urinary tract stones, hydronephrosis, or evidence of recent stone passage. Stomach and bowel: No oral contrast. Stomach moderately distended with ingested material. No small bowel dilatation to suggest obstruction. Diverticulosis through the distal descending and sigmoid segments. No evidence of diverticulitis or colitis. No gross ascites. No free air. Appendix: Normal appendix. PELVIS: Bladder: Suprapubic bladder catheter. Apparent mural thickening to the posterior and inferior wall of the bladder, indistinctness of the prostate gland. Reproductive: Enlarged prostate gland measuring 5.6 cm x 5.9 cm maximum axial dimension. Normal appearing seminal vesicles. ABDOMEN and PELVIS: Intraperitoneal space: See Stomach And Bowel Finding. Bones/joints: No acute fracture seen among the bones of the abdomen or pelvis. Extensive spinal degenerative changes with multilevel discogenic degeneration and facet arthrosis resulting in central canal and neural foraminal narrowing at multiple levels. Soft tissues: Tiny fat-containing ventral hernia at the umbilicus. Small fat-containing bilateral inguinal region hernias. Vasculature: Normal caliber abdominal aorta. Lymph nodes: No pathologically enlarged mesenteric, retroperitoneal, or pelvic sidewall lymph nodes. IMPRESSION: 1. Small bilateral pleural effusions. 2. Extensive diverticulosis through the distal descending and sigmoid segments. No evidence of diverticulitis or colitis. No acute bowel pathology demonstrated. 3. Suprapubic bladder catheter. Apparent thickening of the posterior bladder wall, indistinguishable from the prostate gland, also seen on the comparison exam from 12/29/2018, uncertain etiology. 4. Enlarged prostate gland, 5.6 cm x 5.9 cm maximum axial dimension. Dictated and Authenticated by: Micheal Rodriguez MD. Ordering:[facility] Michael Contreras MD
[2018-08-04 23:59] LABS: Lipase 144 U/L (73-393)
[2018-08-05] MEDS: Levothyroxine 75 MCG TAB PO (06:21)
[2018-08-05 07:22] LABS: Abs Immature Grans 0.04 k/cumm (0.0-0.09); Absolute Basophil Count 0.04 k/cumm (0.0-0.2); Absolute Eosinophil Count 0.11 k/cumm (0.0-0.7); Absolute Lymphocyte Count 1.58 k/cumm (1.2-3.4); Absolute Monocyte Count 0.69 k/cumm (0.11-0.7); Absolute Neutrophil Count 3.41 k/cumm (1.2-6.7); Basophils % 0.7; Eosinophils % 1.9; HCT 42.1 % (40.0-50.0); Immature Grans % 0.7; Lymphocytes % 26.9; Mean Corp. HGB Concentration 33.3 g/dL (32.0-36.0); Mean Corpuscular Volume 90.3 fL (80-95); Mean Platelet Volume 10.3 fL (8.0-11.0); Monocytes % 11.8; Platelet Count 187 x1000/uL (130-400); RBC 4.66 m/cumm (4.50-6.00); RBC Distribution Width 16.9 % (11.8-14.1); White Blood Cell Count 5.87 k/cumm (4.4-10.8)
[2018-08-05 07:27] LABS: Anion Gap 9.9 mmol/L (3-11); BUN 23 mg/dL (7-18); CO2 27.1 mmol/L (21.0-32.0); CREATININE 1.47 mg/dL (0.70-1.30); Chloride 106 mmol/L (98-107); Estimated GFR 45.86 (mL/min/1.73m2); Glucose 97 mg/dL (70-100); Potassium 4.1 mmol/L (3.5-5.1); Sodium 143 mmol/L (136-145)
[2018-08-05 07:35] VITALS: BP 115/70; PULSE 66; RESP 18; TEMP 36.6; O2SAT 96
[2018-08-05 08:45] VITALS: BP 145/88; PULSE 68; RESP 20; TEMP 36.4; O2SAT 99
[2018-08-05] MEDS: Mylanta Suspension 30 ML CUP PO (08:51)
[2018-08-05] MEDS: Pantoprazole 40 MG TABCR PO ×2 (08:52→20:41)
[2018-08-05] MEDS: Acetaminophen 500 MG TAB 1000 MG PO ×2 (08:52→20:24)
[2018-08-05] MEDS: Fluticasone NASAL SPRAY 16 GM BTL NS ×2 (09:12→20:56)
[2018-08-05] MEDS: Metoprolol 50 MG TAB 75 MG PO ×2 (09:12→20:41)
[2018-08-05] MEDS: ALPRAZolam 0.25 MG TAB PO ×2 (09:13→20:41)
[2018-08-05] MEDS: Ursodiol 300 MG CAP PO ×2 (09:13→20:24)
[2018-08-05] MEDS: Multivitamin w/Minerals TAB 1 TAB PO (09:13)
[2018-08-05] MEDS: MEROPENEM 1 GM in Normal Saline 100 ML IVPB ×2 (09:15→20:18)
[2018-08-05] MEDS: Mometasone 220 MCG 14 DOSE INHALER 2 PUFF IH ×2 (10:40→20:56)
[2018-08-05 11:30] VITALS: BP 109/67; PULSE 59; RESP 14; TEMP 36.3; O2SAT 96
[2018-08-05] MEDS: Lactated Ringers 1,000 ML 80 ML IV ×2 (11:58→20:58)
--- NOTE | 2018-08-05 12:33 | W.PM.PROGNOT ---
Date of Service Date of service: 08/05/18 Time of Service: 12:33 Assessment and Plan (1) Abdominal pain: Current visit: Yes Status: Acute Complaint of LUQ pain that is reproducible on exam, has occured in the past, and responds to GI cocktail. No evidence of anemia or active GI bleed. Initiated BID PPI yesterday. Will start oral Ranitidine, and continue Mylanta. CT of the a/p repeated overnight and without pathology. Prior KUB and CT also without significant intra-abdominal pathology to explain patient's symptoms. Lipase, LFTs, and WBC all checked and normal. If not dissipating may consider surgical consult for EGD. Highly doubt cardiac origin. Doubt ischemic colitis as diarrhea is resolved and previously not bloody, with normal lactate and without evidence of acidosis by labs. Monitor. (2) Generalized weakness: Current visit: Yes Status: Acute May have a chronic component to this, but potentially based on evidence of UTI. Continue treatment of infection, consult physical therapy, and monitor symptoms closely. Reportedly improved. 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 On Meropenem day #5. Urine Culture with >100,000 colonies/ml of GNRs X2, now speciating to Klebsiella and E.Coli that is ESBL - Vancomycin was discontinued. Blood Culture with NG X96 hours. Appears to be improving overall. (4) Chronic constipation: Current visit: Yes Status: Chronic Previously with noted diarrhea and multiple bowel movements, now improved but with continued abdominal distention and mild discomfort. C. difficile and fecal leukocytes negative. Tenderness is suprapubic and may be related to UTI/Cystitis. Also with point tenderness slightly above the umbilicus, reported by patient as chronic and unchanged. KUB and repeat CT overnight also negative. (5) Diarrhea: Current visit: Yes Status: Acute As above. (6) COPD (chronic obstructive pulmonary disease): Current visit: No Status: Chronic Continue home Spiriva and prn DuoNeb's. Appears quiescent. (7) Hypertension: Current visit: No Status: Chronic Noted. Currently on beta-suzie therapy. (8) Atrial fibrillation: Current visit: No Status: Chronic Continue beta-suzie. Also on anticoagulation with Dabigatran. Appears rate controlled. (9) DVT prophylaxis: Current visit: Yes Status: Acute On chronic anticoagulation with Pradaxa. Also on PPI therapy. Subjective Interval history since last seen: 83 year old man with a prior medical history significant for BPH with urinary retention, s/p suprapubic catheter placement in the past, prior UTIs with a history of multidrug-resistant and ESBL organisms admitted from [facility] Emergency Room diagnosis of a UTI. Mr. Ross has a prior history of A. fib on anticoagulation, CHF but with prior echo in 2016 showing a normal LVEF, sick sinus syndrome S/P PPM/AICD, PVD, and COPD. The patient also has a history of hypothyroidism, severe diverticulosis, anxiety, and prior EtOH and tobacco use. A prior course of choledocholithiasis led to an ERCP at [facility] [place] The patient lives alone in a basement apartment by choice. He presented to the ED with complaints of weakness as well as a clogged suprapubic catheter. Workup in the ED was positive for a UTI, with CT scan showing no evidence of hydronephrosis. He did not have any leukocytosis on labs, and while his creatinine was mildly elevated it appeared to be at its former baseline. He was however found to be hypothermic, with a low temperature of 34.9. He was also not significantly hypotensive or tachycardic. The patient underwent a catheter change in the ED. Upon admission his antibiotic regimen was broadened, and his culture eventually returned with ESBL E. Coli and Klebsiella. Mr. Ross reports continued overall improvement, but with continued weakness. His diarrhea has improved, along with the abdominal discomfort and distention. However, he is now having LUQ discomfort that is sharp in nature and relieved with Mylanta/Lidocaine mix. No other events reported. He remains afebrile. Exam Narrative Exam Narrative: General: Patient appears comfortable, laying in bed, AAOX3, NAD Neck: Supple CV: Irregularly irregular, nontachycardic, S1S2. 3/6 RUSB/LLSB murmur. Pulmonary: Clear to auscultation bilaterally, no crackles, wheezing, or rhonchi Abdomen: + Bowel Sounds and improved since prior exam, soft, tenderness in the suprapubic/lower quadrant regions that is not near the patient's bladder. Tenderness is reportedly chronic and unchanged for a number of years. LUQ tender to palpation, specifically under the rib cage. No distention and no rebound noted. Vascular: No lower extremity edema. Skin is overall cool to touch bilaterally in the lower extremities, with appearance of chronic but likely significant PVD. Overall appears improved. Psych: Normal mood and affect. Objective Objective Clinical Data: Abnormal lab results 08/04/18 08/04/18 08/05/18 Range/Units 22:18 22:18 07:00 RDW 16.7 H (11.8-14.1) % Absolute Monocytes 0.76 H (0.11-0.7) k/cumm BUN 21 H 23 H (7-18) mg/dL Creatinine 1.70 H 1.47 H (0.70-1.30) mg/dL Glucose 105 H (70-100) mg/dL Albumin 3.0 L (3.4-5.0) g/dL 08/05/18 Range/Units 07:00 RDW 16.9 H (11.8-14.1) % Absolute Monocytes (0.11-0.7) k/cumm BUN (7-18) mg/dL Creatinine (0.70-1.30) mg/dL Glucose (70-100) mg/dL Albumin (3.4-5.0) g/dL Vital Signs Temperature 36.3 C L 08/05/18 11:30 Temperature Source Tympanic 08/05/18 11:30 Pulse 59 L 08/05/18 11:30 Pulse Rhythm Irregular 08/05/18 03:47 Respiratory Rate 14 08/05/18 11:30 Respiratory Effort 08/05/18 03:47 Respiratory Depth Normal 08/05/18 03:47 Respiratory Pattern Normal 08/05/18 03:47 Blood Pressure 109/67 08/05/18 11:30 Blood Pressure Mean 80 07/31/18 16:15 Blood Pressure Position Supine 07/31/18 13:25 Pulse Oximetry 96 08/05/18 11:30 Oxygen Delivery Method Room Air 08/05/18 11:30 Oxygen Flow Rate 0 08/05/18 11:30 Pain Level 6 08/05/18 09:52 Comment 08/05/18 09:15 Intake & Output 08/04/18 08/05/18 08/05/18 23:59 11:59 23:59 Intake Total 1736.667 / 2976.667 1241.666 / 1241.666 Output Total 3500 / 4050 700 / 700 Balance -1763.333 / -1073.333 541.666 / 541.666 Weight 84.2 kg Intake: IV 116.667 / 529.299 8817.666 / 1166.666 Oral 1620 / 2750 75 / 75 Output: Urine 3500 / 4050 700 / 700 Other: Urine Color Yellow Yellow Urine Appearance Clear Clear Comment CLEAR YELLOW URINE IN FRIAS BAG Stool Size Moderate Moderate Stool Characteristics Soft Liquid Laboratory Results WBC 5.87 k/cumm (4.4-10.8) 08/05/18 07:00 RBC 4.66 m/cumm (4.50-6.00) 08/05/18 07:00 Hgb 14.0 g/dL (13.5-17.5) 08/05/18 07:00 Hct 42.1 % (40.0-50.0) 08/05/18 07:00 MCV 90.3 fL (80-95) 08/05/18 07:00 MCH 30.0 pg (27.0-33.0) 08/05/18 07:00 MCHC 33.3 g/dL (32.0-36.0) 08/05/18 07:00 RDW 16.9 % (11.8-14.1) H 08/05/18 07:00 Plt Count 187 x1000/uL (130-400) 08/05/18 07:00 MPV 10.3 fL (8.0-11.0) 08/05/18 07:00 Immature Gran % 0.7 08/05/18 07:00 Neutrophils % 58.0 08/05/18 07:00 Lymphocytes % 26.9 08/05/18 07:00 Monocytes % 11.8 08/05/18 07:00 Eosinophils % 1.9 08/05/18 07:00 Basophils % 0.7 08/05/18 07:00 Absolute Neutrophils 3.41 k/cumm (1.2-6.7) 08/05/18 07:00 Absolute Lymphocytes 1.58 k/cumm (1.2-3.4) 08/05/18 07:00 Absolute Monocytes 0.69 k/cumm (0.11-0.7) 08/05/18 07:00 Absolute Eosinophils 0.11 k/cumm (0.0-0.7) 08/05/18 07:00 Absolute Basophils 0.04 k/cumm (0.0-0.2) 08/05/18 07:00 PT 12.3 sec (9.3-11.0) H 07/31/18 15:40 INR 1.2 (0.9-1.1) H 07/31/18 15:40 Sodium 143 mmol/L (136-145) 08/05/18 07:00 Potassium 4.1 mmol/L (3.5-5.1) 08/05/18 07:00 Chloride 106 mmol/L (98-107) 08/05/18 07:00 Carbon Dioxide 27.1 mmol/L (21.0-32.0) 08/05/18 07:00 Anion Gap 9.9 mmol/L (3-11) 08/05/18 07:00 BUN 23 mg/dL (7-18) H 08/05/18 07:00 Creatinine 1.47 mg/dL (0.70-1.30) H 08/05/18 07:00 Estimated GFR/1.73 m2 45.86 (mL/min/1.73m2) 08/05/18 07:00 Glucose 97 mg/dL (70-100) 08/05/18 07:00 Lactate 1.3 mmol/l (0.6-1.4) 08/04/18 22:18 Calcium 9.0 mg/dL (8.5-10.1) 08/05/18 07:00 Magnesium 2.2 mg/dL (1.8-2.4) 07/31/18 15:40 Total Bilirubin 0.6 mg/dL (0.2-1.0) 08/04/18 22:18 AST 24 U/L (15-37) 08/04/18 22:18 ALT 18 U/L (12-78) 08/04/18 22:18 Alkaline Phosphatase 113 U/L (46-116) 08/04/18 22:18 Total Protein 6.9 g/dL (6.4-8.2) 08/04/18 22:18 Albumin 3.0 g/dL (3.4-5.0) L 08/04/18 22:18 Lipase 144 U/L (73-393) 08/04/18 22:18 TSH 5.70 uIU/mL (0.358-3.74) H 07/31/18 15:18 Free T4 1.30 ng/dL (0.76-1.46) 07/31/18 15:18 Urine Color Yellow (Yellow) 07/31/18 13:55 Urine Clarity Cloudy 07/31/18 13:55 Urine pH 5.5 (5-8) 07/31/18 13:55 Ur Specific [place] 1.020 (1.005-1.025) 07/31/18 13:55 Urine Protein 30 mg/dL (Negative) H 07/31/18 13:55 Urine Ketones Trace mg/dL (Negative) H 07/31/18 13:55 Urine Blood Moderate (Negative) H 07/31/18 13:55 Urine Nitrite Positive (Negative) H 07/31/18 13:55 Urine Bilirubin Negative (Negative) 07/31/18 13:55 Urine Urobilinogen 0.2 EU/dL (Up TO 0.2) 07/31/18 13:55 Ur Leukocyte Esterase Moderate (Negative) H 07/31/18 13:55 Urine RBC >50 (0-2) H 07/31/18 13:55 Urine WBC >50 HPF (0-5) 07/31/18 13:55 Ur Epithelial Cells Rare HPF (Negative) 07/31/18 13:55 Urine Crystals Negative HPF (Negative) 07/31/18 13:55 Urine Bacteria Moderate HPF (Negative) 07/31/18 13:55 Urine Casts Negative LPF (Negative) 07/31/18 13:55 Urine Mucus Negative (Negative) 07/31/18 13:55 Ur Culture Indicated? Yes 07/31/18 13:55 Urine Glucose Negative mg/dL (Negative) 07/31/18 13:55 Stool Campylobacter PCR See comments 08/01/18 17:02 Stool Salmonella PCR See comments 08/01/18 17:02 Stool Shigella PCR See comments 08/01/18 17:02 Vancomycin Trough Cancelled 08/03/18 17:00 Hep Bs Antigen Cancelled 08/01/18 12:16 Hepatitis C Antibody Cancelled 08/01/18 12:16 HIV 1&2 Ag/Ab, 4th Gen Cancelled 08/01/18 12:16 HIV 1&2 Antibody Rapid Cancelled 08/01/18 12:16 Shiga Toxin (PCR) See comments 08/01/18 17:02
--- NOTE | 2018-08-05 15:21 | PT.INPN ---
Date of service: 08/05/18 Time of Service: 15:00 PT Notes Date: 08/05/18 Referring Doctor: Yung Bernardo PT Orders: PT CONSULT: 83-year old gentleman who lives alone with questionable safety with ambulation, admitted for UTI with weakness out of proportion to clinical findings Precautions: Fall, standard Treatment Dates: 08/02/18 - 08/05/18 Patient Profile/Admitting Diagnosis: Patient admitted from ER on 08/01/18 for generalized weakness due to UTI, with questionable safety at home. He's participated in skilled PT intervention 1-2x/day for 5 days, with a total of 9 sessions during that time. PMHX: Chronic kidney disease, atrial fibrillation status post pacemaker placement, COPD, hypertension Social History/Home Situation: [place] He has a flight of outdoor steps going down an embankment to his home, which he is required to manage to get into the home. He has approximately 12 steps, with bilateral rails. He has housekeepers to come in daily, and a neighbor who checks on him twice a day. He typically ambulates with a wheeled walker. Equipment Owned/DME: [facility] Subjective: Patient is agreeable to getting up with PT. He had a difficult morning, with severe abdominal pain. States that he's feeling much better this afternoon and feels ready to get up and moving. Objective: General Observation: Sitting up in chair at initiation of session. He has an IV in LUE and Kang catheter. Mental Status: A&Ox3 Pain: abdominal pain ROM: Right Upper Extremity: WFL Left Upper Extremity: WFL Right Lower Extremity: WFL Left Lower Extremity: WFL Strength: Right Upper Extremity: Shoulder flexion 4+/5. Triceps 4/5. Shop Mechanic is strong and equal. Left Upper Extremity: Shoulder flexion 4+/5. Triceps 4/5. Shop Mechanic is strong and equal. Right Lower Extremity: Hip flexion 5/5. Quads 4+/5. Ankle DF 4+/5. Left Lower Extremity: Hip flexion 5/5. Quads 4+/5. Ankle DF 4+/5. Bed Mobility/Transfers: Supine to sit: Independent Sit to supine: Independent Sit to stand: Supervision Stand to sit: Supervision Bed to chair: Supervision with 4WW. Patient requires significant cues for safety and technique. Gait: Patient ambulates 300 feet with FW W, supervision, full weightbearing. He requires cues for safety and pacing, as well as assistance for management of his lines. Balance: Static Sitting: Normal Dynamic Sitting: Normal Static Standing:good Dynamic Standing: Fair Stairs: Patient able to ascend and descend therapeutic stairs (6x4, 4x6) with bilat rails, step to pattern, supervision, and assistance for management of lines (performed 08/04/18). Special Tests: Mobility Limitations Standardized Measure [facility]-PAC 6 clicks Basic Mobility Inpatient Short Form: Raw Score: 22 standardized Score: 53.28 CMS Score: 21% Treatment: Today's session consisted of re-evaluation, followed by instruction in therex program as noted on flowsheet. Patient also received performed progressive ambulation for cardiovascular conditioning and safety training. Assessment: Patient is a 83 year old male referred to physical therapy services with the diagnosis of generalized weakness related to UTI, with questionable safety at home. Patient has participated in 9 PT sessions over the past 5 days, and is demonstrating improvements in safety and mobility. He continues to demonstrate deficits in AM-PAC scores, and will continue progressing toward rehab goals, with some modification to reflect goals related to patient returning directly home versus SNF. [facility] score 21% deficit. Goals: Goals X1 week 1. Supine-Sit: Independent (MET) 2. Sit-Supine : Independent(MET) 3. Sit-Stand : Independent(MET) 4. Stand-Sit: Independent(MET) 5. Bed-Chair : Independent with WW (PROGRESSING TOWARD) 6. Chair-Bed : Independent with WW(PROGRESSING TOWARD) 7. Gait : Patient able to ambulate 50 feet with FW W and contact-guard (MET) 8. Stairs : Patient able to manage full flight of stairs with bilateral upper extremity support to rails and supervision only (PROGRESSING TOWARD) NEW GOALS: 1. Patient able to ambulate 300' with 4WW and supervision only. Plan of Care/Treatment Plan: 1-2x/day, 7 days/week x 1 week. Plan of care has been reviewed with the REGULATORY SUBMISSIONS ASSOCIATE providing the service under Physical Therapy direction. Initiate Physical Therapy intervention for strengthening, bed mobility, transfers, gait, stairs, balance training, use of assistive device. DISCHARGE RECOMMENDATIONS: Return home once medically stable. Resume PT TREATMENT CODE/TIME: 30 minutes ([id number], [id number])
--- NOTE | 2018-08-05 15:25 | INPN_ITS ---
Date of service: 08/05/18 Time of Service: 15:00 PT Notes Date: 08/05/18 Referring Doctor: Yung Bernardo PT Orders: PT CONSULT: 83-year old gentleman who lives alone with questionable safety with ambulation, admitted for UTI with weakness out of proportion to clinical findings Precautions: Fall, standard Treatment Dates: 08/02/18 - 08/05/18 Patient Profile/Admitting Diagnosis: Patient admitted from ER on 08/01/18 for generalized weakness due to UTI, with questionable safety at home. He's participated in skilled PT intervention 1-2x/day for 5 days, with a total of 9 sessions during that time. PMHX: Chronic kidney disease, atrial fibrillation status post pacemaker placement, COPD, hypertension Social History/Home Situation: [place] He has a flight of outdoor steps going down an embankment to his home, which he is required to manage to get into the home. He has approximately 12 steps, with bilateral rails. He has housekeepers to come in daily, and a neighbor who checks on him twice a day. He typically ambulates with a wheeled walker. Equipment Owned/DME: [facility] Subjective: Patient is agreeable to getting up with PT. He had a difficult morning, with severe abdominal pain. States that he's feeling much better this afternoon and feels ready to get up and moving. Objective: General Observation: Sitting up in chair at initiation of session. He has an IV in LUE and Kang catheter. Mental Status: A&Ox3 Pain: abdominal pain ROM: Right Upper Extremity: WFL Left Upper Extremity: WFL Right Lower Extremity: WFL Left Lower Extremity: WFL Strength: Right Upper Extremity: Shoulder flexion 4+/5. Triceps 4/5. Splitting Machine Operator is strong and equal. Left Upper Extremity: Shoulder flexion 4+/5. Triceps 4/5. Splitting Machine Operator is strong and equal. Right Lower Extremity: Hip flexion 5/5. Quads 4+/5. Ankle DF 4+/5. Left Lower Extremity: Hip flexion 5/5. Quads 4+/5. Ankle DF 4+/5. Bed Mobility/Transfers: Supine to sit: Independent Sit to supine: Independent Sit to stand: Supervision Stand to sit: Supervision Bed to chair: Supervision with 4WW. Patient requires significant cues for safety and technique. Gait: Patient ambulates 300 feet with FW W, supervision, full weightbearing. He requires cues for safety and pacing, as well as assistance for management of his lines. Balance: Static Sitting: Normal Dynamic Sitting: Normal Static Standing:good Dynamic Standing: Fair Stairs: Patient able to ascend and descend therapeutic stairs (6x4, 4x6) with bilat rails, step to pattern, supervision, and assistance for management of lines (performed 08/04/18). Special Tests: Mobility Limitations Standardized Measure [facility]-PAC 6 clicks Basic Mobility Inpatient Short Form: Raw Score: 22 standardized Score: 53.28 CMS Score: 21% Treatment: Today's session consisted of re-evaluation, followed by instruction in therex program as noted on flowsheet. Patient also received performed progressive ambulation for cardiovascular conditioning and safety training. Assessment: Patient is a 83 year old male referred to physical therapy services with the diagnosis of generalized weakness related to UTI, with questionable safety at home. Patient has participated in 9 PT sessions over the past 5 days, and is demonstrating improvements in safety and mobility. He continues to demonstrate deficits in AM-PAC scores, and will continue progressing toward rehab goals, with some modification to reflect goals related to patient returning directly home versus SNF. [facility] score 21% deficit. Goals: Goals X1 week 1. Supine-Sit: Independent (MET) 2. Sit-Supine : Independent(MET) 3. Sit-Stand : Independent(MET) 4. Stand-Sit: Independent(MET) 5. Bed-Chair : Independent with WW (PROGRESSING TOWARD) 6. Chair-Bed : Independent with WW(PROGRESSING TOWARD) 7. Gait : Patient able to ambulate 50 feet with FW W and contact-guard (MET) 8. Stairs : Patient able to manage full flight of stairs with bilateral upper extremity support to rails and supervision only (PROGRESSING TOWARD) NEW GOALS: 1. Patient able to ambulate 300' with 4WW and supervision only. Plan of Care/Treatment Plan: 1-2x/day, 7 days/week x 1 week. Plan of care has been reviewed with the FINANCIAL SERVICES CONSULTANT providing the service under Physical Therapy direction. Initiate Physical Therapy intervention for strengthening, bed mobility, transfers, gait, stairs, balance training, use of assistive device. DISCHARGE RECOMMENDATIONS: Return home once medically stable. Resume PT TREATMENT CODE/TIME: 30 minutes ([id number], [id number])
[2018-08-05 16:07] VITALS: BP 122/59; PULSE 81; RESP 18; TEMP 36.7; O2SAT 99
--- NOTE | 2018-08-05 16:46 | PDOC.CMPRO ---
Care Management Progress Note S/O: Dino was sitting up in his chair when CM met with him. He reported feeling worse the last few days and described his symptoms. He is doing well with physical therapy and believes he may be ready to go home on Wednesday, and will no longer require SNF upon discharge as long as he does not experience increased weakness. CM notified Veronica of [facility] admission of likely change in plan. CM also notified Ed who shared that Brenden preferred to home as long as he was well enough to be there and often only spends a few weeks at the rehab at a time. Ed recommended finding exercise bands for Dino as he enjoys exercising from his chair with bands. CM attempted to find some, but PT and administration personnel had left for the day. CM will continue to follow. A: 83 year old gentleman admitted to [facility] 07/31/18 for weakness with UTI. P: Brenden will return home when ready per MD. He will transport via private RCT vehicle coordinated by this filing writer. Dino will have new orders for RN/PT/OT and resume [facility] supports. He will follow up with his PCP and plan of care. CM agreed to contact Ed, and keep him updated with discharge planning considerations.
[2018-08-05 19:49] VITALS: BP 110/67; PULSE 87; RESP 20; TEMP 36.1; O2SAT 97
[2018-08-05] MEDS: Normal Saline Flush 10 ML SYR IVP (20:18)
[2018-08-05] MEDS: Mirtazapine 15 MG TAB PO (20:41)
[2018-08-05] MEDS: Latanoprost 0.005% 2.5 ML BTL OU (20:56)
[2018-08-05] MEDS: Docusate Sodium 100 MG CAP PO (20:57)
[2018-08-06] VITALS (7 sets, daily range): BP systolic 105–143; BP diastolic 66–83; PULSE 58–73; RESP 16–19; TEMP 35.8–37; O2SAT 94–100
[2018-08-06] MEDS: Levothyroxine 75 MCG TAB PO (06:11)
[2018-08-06 07:31] LABS: Abs Immature Grans 0.01 k/cumm (0.0-0.09); Absolute Basophil Count 0.03 k/cumm (0.0-0.2); Absolute Lymphocyte Count 1.51 k/cumm (1.2-3.4); Absolute Monocyte Count 0.46 k/cumm (0.11-0.7); Basophils % 0.7; Eosinophils % 2.2; HCT 41.3 % (40.0-50.0); HGB 13.3 g/dL (13.5-17.5); Immature Grans % 0.2; Lymphocytes % 32.8; Mean Corp. HGB Concentration 32.2 g/dL (32.0-36.0); Mean Corpuscular Hemoglobin 29.6 pg (27.0-33.0); Neutrophils % 54.1; Platelet Count 172 x1000/uL (130-400); RBC 4.49 m/cumm (4.50-6.00); White Blood Cell Count 4.61 k/cumm (4.4-10.8)
[2018-08-06 07:51] LABS: Anion Gap 5.3 mmol/L (3-11); BUN 22 mg/dL (7-18); CO2 29.7 mmol/L (21.0-32.0); CREATININE 1.46 mg/dL (0.70-1.30); Calcium 8.9 mg/dL (8.5-10.1); Chloride 107 mmol/L (98-107); Estimated GFR 46.23 (mL/min/1.73m2); Glucose 94 mg/dL (70-100); Potassium 4.3 mmol/L (3.5-5.1); Sodium 142 mmol/L (136-145)
[2018-08-06] MEDS: Metoprolol 50 MG TAB 75 MG PO ×2 (08:13→20:53)
[2018-08-06] MEDS: Pantoprazole 40 MG TABCR PO ×2 (08:14→20:54)
[2018-08-06] MEDS: Ursodiol 300 MG CAP PO ×2 (08:14→20:53)
[2018-08-06] MEDS: Multivitamin w/Minerals TAB 1 TAB PO (08:14)
[2018-08-06] MEDS: ALPRAZolam 0.25 MG TAB PO ×2 (08:14→20:53)
[2018-08-06] MEDS: MEROPENEM 1 GM in Normal Saline 100 ML IVPB ×2 (08:32→21:03)
[2018-08-06] MEDS: Normal Saline 500 ML 200 ML IV (08:32)
[2018-08-06] MEDS: Fluticasone NASAL SPRAY 16 GM BTL NS ×2 (08:32→20:53)
--- NOTE | 2018-08-06 10:46 | PT.INTREAT ---
Date of service: 08/06/18 Time of Service: 10:46 PT Notes Inpatient Physical Therapy Treatment Note [facility] Date: 08/06/18 PRECAUTIONS: Fall SUBJECTIVE: Bill states that he is feeling much better today. OBJECTIVE: PAIN: No c/o pain BED MOBILITY/TRANSFERS Sit-stand: I Stand-sit: I GAIT Assistive Device: 4WW Weight bearing: Full Assist: S Distance: 300' THEREX: Patient completed a resisted UE and LE strengthening program, as per flow sheet. Patient tolerated a progression in his program today, modifications made to reps and weights are noted on flow sheet. ASSESSMENT: Patient tolerated session well without complaint. Patient was able to tolerate a progression in ther ex today. Patient would benefit from continued gait and transfer training for improved activity tolerance. PLAN: Continue with PT's POC TREATMENT CODE/TIME: 30 minutes; [id number], [id number]
--- NOTE | 2018-08-06 10:50 | PT.INTREAT ---
Date of service: 08/06/18 Time of Service: 10:50 PT Notes Inpatient Physical Therapy Treatment Note [facility] Date: 08/06/18 PRECAUTIONS: Fall, Contact SUBJECTIVE: Rito reports that he has been performing exercises independently in his room. He also reports that his right ankle is painful today. OBJECTIVE: PAIN: Patient c/o R ankle pain BED MOBILITY/TRANSFERS Rolling L/R: I Supine-sit: I Sit-supine: I GAIT: Hold THEREX: Patient completed a global strengthening program, in supine and side-lying positions, as per flow sheet. He was able to tolerate a progression in his program today. Modificiations made to reps are noted on flow sheet. ASSESSMENT: Patient tolerated session well. He was able to tolerate a progression in his ther ex program today. Patient would benefit from continued gait training and strengthening for improved activity tolerance. PLAN: Continue with PT's POC TREATMENT CODE/TIME: 25 minutes; [id number] x2
--- NOTE | 2018-08-06 10:55 | PTTR_ITS ---
Date of service: 08/06/18 Time of Service: 10:50 PT Notes Inpatient Physical Therapy Treatment Note [facility] Date: 08/06/18 PRECAUTIONS: Fall, Contact SUBJECTIVE: Rito reports that he has been performing exercises independently in his room. He also reports that his right ankle is painful today. OBJECTIVE: PAIN: Patient c/o R ankle pain BED MOBILITY/TRANSFERS Rolling L/R: I Supine-sit: I Sit-supine: I GAIT: Hold THEREX: Patient completed a global strengthening program, in supine and side- lying positions, as per flow sheet. He was able to tolerate a progression in his program today. Modificiations made to reps are noted on flow sheet. ASSESSMENT: Patient tolerated session well. He was able to tolerate a progression in his ther ex program today. Patient would benefit from continued gait training and strengthening for improved activity tolerance. PLAN: Continue with PT's POC TREATMENT CODE/TIME: 25 minutes; [id number] x2
[2018-08-06] MEDS: Mometasone 220 MCG 14 DOSE INHALER 2 PUFF IH ×2 (11:47→20:52)
--- NOTE | 2018-08-06 14:25 | PDOC.CMPRO ---
- If Service Date Differs Date of service: 08/06/18 Time of Service: 14:25 Care Management Progress Note S/O: Dino is sitting in his chair this morning, pleasant and receptive to discussion. Dino easily engages in conversation and reports that he is feeling A little better than he was. CM reviewed DC plans and Dino continues to state that he will be returning home and that he would prefer this over SNF placement at this time. No change in DC plan. A: 83 year old gentleman admitted to [facility] 07/31/18 for weakness with UTI. P: Brenden will return home when ready per MD. He will transport via private RCT vehicle coordinated by this writer technical publications. Dino will have new orders for RN/PT/OT and resume CFC supports. He will follow up with his PCP and plan of care. CM agreed to contact Ed, and keep him updated with discharge planning considerations.
--- NOTE | 2018-08-06 14:35 | CMPROGNOTE_ITS ---
- If Service Date Differs Date of service: 08/06/18 Time of Service: 14:25 Care Management Progress Note S/O: Dino is sitting in his chair this morning, pleasant and receptive to discussion. Dino easily engages in conversation and reports that he is feeling A little better than he was. CM reviewed DC plans and Dino continues to state that he will be returning home and that he would prefer this over SNF placement at this time. No change in DC plan. A: 83 year old gentleman admitted to [facility] 07/31/18 for weakness with UTI. P: Brenden will return home when ready per MD. He will transport via private RCT vehicle coordinated by this blurb writer. Dino will have new orders for RN/PT/OT and resume CFC supports. He will follow up with his PCP and plan of care. CM agreed to contact Ed, and keep him updated with discharge planning considerations.
--- NOTE | 2018-08-06 16:51 | W.PM.PROGNOT ---
Date of Service Date of service: 08/06/18 Time of Service: 16:51 Assessment and Plan (1) Abdominal pain: Current visit: Yes Status: Resolved Completely resolved. Continue PPI, ranitidine, mylanta. (2) Generalized weakness: Current visit: Yes Status: Acute Improving, but remains 1 assist with PT. Continue antibiotics and working with PT. (3) UTI (urinary tract infection): Current visit: Yes Status: Acute Present on admission, associated with a suprapubic catheter, changed in the ED. Growing ESBL and Klebsiella PNA in cultures. Unfortunately, I do not think that we would be able to discharged the patient on PO antibiotics with his sensitivities. Continue meropenem (day 6). Ideally, would complete a 2 week course of antibiotics for a complicated UTI. Will discuss with ID. (4) Chronic constipation: Current visit: Yes Status: Chronic No complaints at this time. C. difficile and fecal leukocytes negative. Abdominal pain resolved. (5) Diarrhea: Current visit: Yes Status: Acute Clinically resolved (6) COPD (chronic obstructive pulmonary disease): Current visit: No Status: Chronic Not in acute exacerbation. Continue home Spiriva and prn DuoNeb's. (7) Hypertension: Current visit: No Status: Chronic Noted. Currently on beta-suzie therapy. (8) Atrial fibrillation: Current visit: No Status: Chronic Rate controlled; Continue beta-suzie and pradaxa (9) DVT prophylaxis: Current visit: Yes Status: Acute On chronic anticoagulation with Pradaxa. Also on PPI therapy. Subjective Interval history since last seen: States abdomen is not bothering him today. Denies dizziness, chest pain, shortness of breath, nausea, vomiting. Enquiring about going home on Wednesday. Exam Narrative Exam Narrative: General: very pleasant Elderly male; sitting up in a chair, comfortably HEENT: EOMI, MMM Heart: RRR, no m/r/g Lungs: CTAB GI: abdomen soft, nontender, nondistended; suprapubic catheter in place Extremities: trace edema BLE's, +clubbing, no cyanosis Objective Objective Clinical Data: Abnormal lab results 08/06/18 08/06/18 Range/Units 07:05 07:05 RBC 4.49 L (4.50-6.00) m/cumm Hgb 13.3 L (13.5-17.5) g/dL RDW 17.0 H (11.8-14.1) % BUN 22 H (7-18) mg/dL Creatinine 1.46 H (0.70-1.30) mg/dL Vital Signs Temperature 36.8 C 08/06/18 15:59 Temperature Source Tympanic 08/06/18 15:59 Pulse 64 08/06/18 15:59 Pulse Rhythm Regular 08/05/18 20:30 Respiratory Rate 18 08/06/18 15:59 Respiratory Effort 08/05/18 20:30 Respiratory Depth Normal 08/05/18 20:30 Respiratory Pattern Normal 08/05/18 20:30 Blood Pressure 139/76 08/06/18 15:59 Blood Pressure Mean 80 07/31/18 16:15 Blood Pressure Position Supine 07/31/18 13:25 Pulse Oximetry 97 08/06/18 15:59 Oxygen Delivery Method Room Air 08/06/18 15:59 Oxygen Flow Rate 0 08/06/18 15:59 Pain Level 0 08/06/18 08:15 Comment 08/05/18 09:15 Intake & Output 08/05/18 08/06/18 08/06/18 23:59 11:59 23:59 Intake Total 1310 / 2791.666 2125.333 / 3155.333 1030 / 3155.333 Output Total 1050 / 2100 600 / 2100 1500 / 2100 Balance 260 / 801.050 7493.333 / 1055.333 -470 / 1055.333 Weight 92 kg Intake: IV 830 / 0079.989 5972.333 / 1115.333 Oral 480 / 795 1010 / 2040 1030 / 2040 Output: Urine 1050 / 2100 600 / 2100 1500 / 2100 Other: Urine Color Yellow Yellow Yellow Urine Appearance Clear Clear Clear Stool Size Moderate Moderate Stool Characteristics Soft Soft Liquid Liquid Brown Brown Laboratory Results WBC 4.61 k/cumm (4.4-10.8) 08/06/18 07:05 RBC 4.49 m/cumm (4.50-6.00) L 08/06/18 07:05 Hgb 13.3 g/dL (13.5-17.5) L 08/06/18 07:05 Hct 41.3 % (40.0-50.0) 08/06/18 07:05 MCV 92.0 fL (80-95) 08/06/18 07:05 MCH 29.6 pg (27.0-33.0) 08/06/18 07:05 MCHC 32.2 g/dL (32.0-36.0) 08/06/18 07:05 RDW 17.0 % (11.8-14.1) H 08/06/18 07:05 Plt Count 172 x1000/uL (130-400) 08/06/18 07:05 MPV 10.0 fL (8.0-11.0) 08/06/18 07:05 Immature Gran % 0.2 08/06/18 07:05 Neutrophils % 54.1 08/06/18 07:05 Lymphocytes % 32.8 08/06/18 07:05 Monocytes % 10.0 08/06/18 07:05 Eosinophils % 2.2 08/06/18 07:05 Basophils % 0.7 08/06/18 07:05 Absolute Neutrophils 2.50 k/cumm (1.2-6.7) 08/06/18 07:05 Absolute Lymphocytes 1.51 k/cumm (1.2-3.4) 08/06/18 07:05 Absolute Monocytes 0.46 k/cumm (0.11-0.7) 08/06/18 07:05 Absolute Eosinophils 0.10 k/cumm (0.0-0.7) 08/06/18 07:05 Absolute Basophils 0.03 k/cumm (0.0-0.2) 08/06/18 07:05 PT 12.3 sec (9.3-11.0) H 07/31/18 15:40 INR 1.2 (0.9-1.1) H 07/31/18 15:40 Sodium 142 mmol/L (136-145) 08/06/18 07:05 Potassium 4.3 mmol/L (3.5-5.1) 08/06/18 07:05 Chloride 107 mmol/L (98-107) 08/06/18 07:05 Carbon Dioxide 29.7 mmol/L (21.0-32.0) 08/06/18 07:05 Anion Gap 5.3 mmol/L (3-11) 08/06/18 07:05 BUN 22 mg/dL (7-18) H 08/06/18 07:05 Creatinine 1.46 mg/dL (0.70-1.30) H 08/06/18 07:05 Estimated GFR/1.73 m2 46.23 (mL/min/1.73m2) 08/06/18 07:05 Glucose 94 mg/dL (70-100) 08/06/18 07:05 Lactate 1.3 mmol/l (0.6-1.4) 08/04/18 22:18 Calcium 8.9 mg/dL (8.5-10.1) 08/06/18 07:05 Magnesium 2.2 mg/dL (1.8-2.4) 07/31/18 15:40 Total Bilirubin 0.6 mg/dL (0.2-1.0) 08/04/18 22:18 AST 24 U/L (15-37) 08/04/18 22:18 ALT 18 U/L (12-78) 08/04/18 22:18 Alkaline Phosphatase 113 U/L (46-116) 08/04/18 22:18 Total Protein 6.9 g/dL (6.4-8.2) 08/04/18 22:18 Albumin 3.0 g/dL (3.4-5.0) L 08/04/18 22:18 Lipase 144 U/L (73-393) 08/04/18 22:18 TSH 5.70 uIU/mL (0.358-3.74) H 07/31/18 15:18 Free T4 1.30 ng/dL (0.76-1.46) 07/31/18 15:18 Urine Color Yellow (Yellow) 07/31/18 13:55 Urine Clarity Cloudy 07/31/18 13:55 Urine pH 5.5 (5-8) 07/31/18 13:55 Ur Specific [place] 1.020 (1.005-1.025) 07/31/18 13:55 Urine Protein 30 mg/dL (Negative) H 07/31/18 13:55 Urine Ketones Trace mg/dL (Negative) H 07/31/18 13:55 Urine Blood Moderate (Negative) H 07/31/18 13:55 Urine Nitrite Positive (Negative) H 07/31/18 13:55 Urine Bilirubin Negative (Negative) 07/31/18 13:55 Urine Urobilinogen 0.2 EU/dL (Up TO 0.2) 07/31/18 13:55 Ur Leukocyte Esterase Moderate (Negative) H 07/31/18 13:55 Urine RBC >50 (0-2) H 07/31/18 13:55 Urine WBC >50 HPF (0-5) 07/31/18 13:55 Ur Epithelial Cells Rare HPF (Negative) 07/31/18 13:55 Urine Crystals Negative HPF (Negative) 07/31/18 13:55 Urine Bacteria Moderate HPF (Negative) 07/31/18 13:55 Urine Casts Negative LPF (Negative) 07/31/18 13:55 Urine Mucus Negative (Negative) 07/31/18 13:55 Ur Culture Indicated? Yes 07/31/18 13:55 Urine Glucose Negative mg/dL (Negative) 07/31/18 13:55 Stool Campylobacter PCR See comments 08/01/18 17:02 Stool Salmonella PCR See comments 08/01/18 17:02 Stool Shigella PCR See comments 08/01/18 17:02 Vancomycin Trough Cancelled 08/03/18 17:00 Hep Bs Antigen Cancelled 08/01/18 12:16 Hepatitis C Antibody Cancelled 08/01/18 12:16 HIV 1&2 Ag/Ab, 4th Gen Cancelled 08/01/18 12:16 HIV 1&2 Antibody Rapid Cancelled 08/01/18 12:16 Shiga Toxin (PCR) See comments 08/01/18 17:02
[2018-08-06] MEDS: Normal Saline Flush 10 ML SYR IVP (20:52)
[2018-08-06] MEDS: Mirtazapine 15 MG TAB PO (20:53)
[2018-08-06] MEDS: Latanoprost 0.005% 2.5 ML BTL OU (20:53)
[2018-08-06] MEDS: Acetaminophen 500 MG TAB 1000 MG PO (20:59)
[2018-08-07 03:36] VITALS: BP 127/74; PULSE 54; RESP 18; TEMP 36.3; O2SAT 96
[2018-08-07] MEDS: Levothyroxine 75 MCG TAB PO (06:15)
[2018-08-07 07:16] LABS: Abs Immature Grans 0.01 k/cumm (0.0-0.09); Absolute Basophil Count 0.03 k/cumm (0.0-0.2); Absolute Lymphocyte Count 1.51 k/cumm (1.2-3.4); Absolute Monocyte Count 0.58 k/cumm (0.11-0.7); Absolute Neutrophil Count 2.66 k/cumm (1.2-6.7); Basophils % 0.6; HCT 42.4 % (40.0-50.0); HGB 13.7 g/dL (13.5-17.5); Immature Grans % 0.2; Lymphocytes % 30.9; Mean Corp. HGB Concentration 32.3 g/dL (32.0-36.0); Mean Corpuscular Hemoglobin 29.6 pg (27.0-33.0); Mean Corpuscular Volume 91.6 fL (80-95); Mean Platelet Volume 10.1 fL (8.0-11.0); Monocytes % 11.9; Neutrophils % 54.4; Platelet Count 177 x1000/uL (130-400); RBC 4.63 m/cumm (4.50-6.00); White Blood Cell Count 4.89 k/cumm (4.4-10.8)
[2018-08-07 07:28] LABS: Anion Gap 4.7 mmol/L (3-11); BUN 24 mg/dL (7-18); CO2 28.3 mmol/L (21.0-32.0); Chloride 108 mmol/L (98-107); Estimated GFR 48.52 (mL/min/1.73m2); Glucose 93 mg/dL (70-100); Magnesium 2.1 mg/dL (1.8-2.4); Potassium 4.4 mmol/L (3.5-5.1); Sodium 141 mmol/L (136-145)
[2018-08-07 07:45] VITALS: BP 127/81; PULSE 75; RESP 18; TEMP 36.2; O2SAT 98
[2018-08-07] MEDS: ALPRAZolam 0.25 MG TAB PO ×2 (08:01→21:45)
[2018-08-07] MEDS: Metoprolol 50 MG TAB 75 MG PO ×2 (08:01→21:45)
[2018-08-07] MEDS: Pantoprazole 40 MG TABCR PO ×2 (08:01→21:45)
[2018-08-07] MEDS: Ursodiol 300 MG CAP PO ×2 (08:01→21:45)
[2018-08-07] MEDS: Fluticasone NASAL SPRAY 16 GM BTL NS ×2 (08:02→21:45)
[2018-08-07] MEDS: MEROPENEM 1 GM in Normal Saline 100 ML IVPB ×2 (08:02→20:10)
[2018-08-07] MEDS: Multivitamin w/Minerals TAB 1 TAB PO (08:02)
[2018-08-07] MEDS: Normal Saline Flush 10 ML SYR IVP (10:00)
[2018-08-07] MEDS: Mometasone 220 MCG 14 DOSE INHALER 2 PUFF IH ×2 (10:56→21:46)
--- NOTE | 2018-08-07 11:20 | PT.INTREAT ---
Date of service: 08/07/18 Time of Service: 11:20 PT Notes Inpatient Physical Therapy Treatment Note [facility] Date: 08/07/18 PRECAUTIONS: Fall SUBJECTIVE: Bill is agreeable to participating in PT OBJECTIVE: PAIN: No c/o pain BED MOBILITY/TRANSFERS Sit-stand: I Stand-sit: I GAIT Assistive Device: 4WW Weight bearing: Full Assist: S Distance: 300' x2 THEREX: Patient completed a resisted UE and LE strengthening program, as per flow sheet. He was able to tolerate a progression in his program, modifications made to reps are noted on flow sheet. ASSESSMENT: Patient tolerated session well without complaint. He was able to tolerate a progression in his ther ex program. PLAN: Continue with PT's POC TREATMENT CODE/TIME: 30 minutes; [id number], [id number]
[2018-08-07 11:42] VITALS: BP 137/78; PULSE 71; RESP 18; TEMP 36.2; O2SAT 98
--- NOTE | 2018-08-07 13:53 | PDOC.CMPRO ---
- If Service Date Differs Date of service: 08/07/18 Time of Service: 13:53 Care Management Progress Note S/O: Dino is doing well when this copywriter visits with him this morning. CM spoke with Dr. Jim whom states that he may require a course of 14 days for IV antibiotics. Dr. Jim states that Dino may need to be placed in a swingbed level of care or to go to a SNF to complete his IV antibiotics which are BID at this time. Per morning meeting it was stated that Dino has an outhouse as well as wood stove which the provider is concerned about Urban ability to go outside to go to the bathroom, as well as stock his stove. CM to contact [facility] on Wednesday in regards to IV antibiotics and ability to manage this at [facility]. A: 83 year old gentleman admitted to [facility] 07/31/18 for weakness with UTI. P: [facility] vs Swingbed vs Home. CM to speak with provider on 08/08 in regards to IV antibiotics, duration and frequency and contact [facility] in regards to availability. He will follow up with his PCP and plan of care. CM agreed to contact Ed, and keep him updated with discharge planning considerations.
--- NOTE | 2018-08-07 13:56 | CMPROGNOTE_ITS ---
- If Service Date Differs Date of service: 08/07/18 Time of Service: 13:53 Care Management Progress Note S/O: Dino is doing well when this fiction and nonfiction writer prose visits with him this morning. CM spoke with Dr. Jim whom states that he may require a course of 14 days for IV antibiotics. Dr. Jim states that Dino may need to be placed in a swingbed level of care or to go to a SNF to complete his IV antibiotics which are BID at this time. Per morning meeting it was stated that Dino has an outhouse as well as wood stove which the provider is concerned about Urban ability to go outside to go to the bathroom, as well as stock his stove. CM to contact [facility] on Wednesday in regards to IV antibiotics and ability to manage this at [facility]. A: 83 year old gentleman admitted to [facility] 07/31/18 for weakness with UTI. P: [facility] vs Swingbed vs Home. CM to speak with provider on 08/08 in regards to IV antibiotics, duration and frequency and contact [facility] in regards to availability. He will follow up with his PCP and plan of care. CM agreed to contact Ed, and keep him updated with discharge planning considerations.
[2018-08-07] MEDS: Acetaminophen 500 MG TAB 1000 MG PO (14:10)
[2018-08-07 15:58] VITALS: BP 151/71; PULSE 61; RESP 19; TEMP 36.9; O2SAT 98
[2018-08-07] MEDS: traMADol 50 MG TAB PO ×2 (16:26→21:51)
--- NOTE | 2018-08-07 16:59 | W.PM.PROGNOT ---
Date of Service Date of service: 08/07/18 Time of Service: 16:59 Assessment and Plan (1) Abdominal pain: Current visit: Yes Status: Acute I suspect that this is a different kind of pain than the patient was reporting earlier on this admission. This pain may be due to a bladder spasm. I will ask Dr Hendricks to see him in the morning. For now, trial ultram for pain. (2) Generalized weakness: Current visit: Yes Status: Acute Improving, but remains 1 assist with PT. Continue antibiotics and working with PT. (3) UTI (urinary tract infection): Current visit: Yes Status: Acute Present on admission, associated with a suprapubic catheter, changed in the ED. Growing ESBL and Klebsiella pneumonia in cultures. Unfortunately, I do not think that we would be able to discharged the patient on PO antibiotics with his sensitivities. Continue meropenem (day7). Will discuss with urology as to preferred length of antibiotics. (4) Chronic constipation: Current visit: Yes Status: Chronic No complaints at this time. C. difficile and fecal leukocytes negative. Abdominal pain resolved. (5) Diarrhea: Current visit: Yes Status: Acute Clinically resolved (6) COPD (chronic obstructive pulmonary disease): Current visit: No Status: Chronic Not in acute exacerbation. Continue home Spiriva and prn DuoNeb's. (7) Hypertension: Current visit: No Status: Chronic Noted. Currently on beta-suzie therapy. (8) Atrial fibrillation: Current visit: No Status: Chronic Rate controlled; Continue beta-suzie and pradaxa (9) DVT prophylaxis: Current visit: Yes Status: Acute On chronic anticoagulation with Pradaxa. Also on PPI therapy. Subjective Interval history since last seen: Complains of suprapubic tenderness, reproducible with palpation, right below the insertion site of his suprapubic catheter, with radiation down his urethra. He is tearful when talking about this pain. He states this pain has been coming and going ever since he had the suprapubic catheter placed. Denies dizziness, chest pain, shortness of breath, nausea, vomiting. Exam Narrative Exam Narrative: General: very pleasant Elderly male; tearful in a chair, uncomfortable HEENT: EOMI, MMM Heart: RRR, no m/r/g Lungs: CTAB GI: abdomen soft, tender below the insertion site of the suprapubic catheter Extremities: trace edema BLE's, +clubbing, no cyanosis Objective Objective Clinical Data: Abnormal lab results 08/07/18 08/07/18 Range/Units 06:55 06:55 RDW 17.0 H (11.8-14.1) % Chloride 108 H (98-107) mmol/L BUN 24 H (7-18) mg/dL Creatinine 1.40 H (0.70-1.30) mg/dL Vital Signs Temperature 36.9 C 08/07/18 15:58 Temperature Source Tympanic 08/07/18 15:58 Pulse 61 08/07/18 15:58 Pulse Rhythm Regular 08/07/18 08:00 Respiratory Rate 19 08/07/18 15:58 Respiratory Effort Non-Labored 08/07/18 08:00 Respiratory Depth Normal 08/07/18 08:00 Respiratory Pattern Normal 08/07/18 08:00 Blood Pressure 151/71 H 08/07/18 15:58 Blood Pressure Mean 80 07/31/18 16:15 Blood Pressure Position Supine 07/31/18 13:25 Pulse Oximetry 98 08/07/18 15:58 Oxygen Delivery Method Room Air 08/07/18 15:58 Oxygen Flow Rate 0 08/07/18 15:58 Pain Level 6 08/07/18 16:26 Comment 08/05/18 09:15 Intake & Output 08/06/18 08/07/18 08/07/18 23:59 11:59 23:59 Intake Total 1370 / 3495.333 1373.333 / 1613.333 240 / 1613.333 Output Total 2250 / 2850 1250 / 1850 600 / 1850 Balance -880 / 645.333 123.333 / -236.667 -360 / -236.667 Weight 90.1 kg Intake: IV 100 / 1215.333 183.333 / 183.333 Oral 1270 / 2280 1190 / 1430 240 / 1430 Output: Urine 2250 / 2850 1250 / 1850 600 / 1850 Other: Urine Color Yellow Yellow Yellow Urine Appearance Clear Clear Clear Stool Size Small Small Small Stool Characteristics Soft Soft Soft Formed Liquid Brown Laboratory Results WBC 4.89 k/cumm (4.4-10.8) 08/07/18 06:55 RBC 4.63 m/cumm (4.50-6.00) 08/07/18 06:55 Hgb 13.7 g/dL (13.5-17.5) 08/07/18 06:55 Hct 42.4 % (40.0-50.0) 08/07/18 06:55 MCV 91.6 fL (80-95) 08/07/18 06:55 MCH 29.6 pg (27.0-33.0) 08/07/18 06:55 MCHC 32.3 g/dL (32.0-36.0) 08/07/18 06:55 RDW 17.0 % (11.8-14.1) H 08/07/18 06:55 Plt Count 177 x1000/uL (130-400) 08/07/18 06:55 MPV 10.1 fL (8.0-11.0) 08/07/18 06:55 Immature Gran % 0.2 08/07/18 06:55 Neutrophils % 54.4 08/07/18 06:55 Lymphocytes % 30.9 08/07/18 06:55 Monocytes % 11.9 08/07/18 06:55 Eosinophils % 2.0 08/07/18 06:55 Basophils % 0.6 08/07/18 06:55 Absolute Neutrophils 2.66 k/cumm (1.2-6.7) 08/07/18 06:55 Absolute Lymphocytes 1.51 k/cumm (1.2-3.4) 08/07/18 06:55 Absolute Monocytes 0.58 k/cumm (0.11-0.7) 08/07/18 06:55 Absolute Eosinophils 0.10 k/cumm (0.0-0.7) 08/07/18 06:55 Absolute Basophils 0.03 k/cumm (0.0-0.2) 08/07/18 06:55 PT 12.3 sec (9.3-11.0) H 07/31/18 15:40 INR 1.2 (0.9-1.1) H 07/31/18 15:40 Sodium 141 mmol/L (136-145) 08/07/18 06:55 Potassium 4.4 mmol/L (3.5-5.1) 08/07/18 06:55 Chloride 108 mmol/L (98-107) H 08/07/18 06:55 Carbon Dioxide 28.3 mmol/L (21.0-32.0) 08/07/18 06:55 Anion Gap 4.7 mmol/L (3-11) 08/07/18 06:55 BUN 24 mg/dL (7-18) H 08/07/18 06:55 Creatinine 1.40 mg/dL (0.70-1.30) H 08/07/18 06:55 Estimated GFR/1.73 m2 48.52 (mL/min/1.73m2) 08/07/18 06:55 Glucose 93 mg/dL (70-100) 08/07/18 06:55 Lactate 1.3 mmol/l (0.6-1.4) 08/04/18 22:18 Calcium 9.0 mg/dL (8.5-10.1) 08/07/18 06:55 Magnesium 2.1 mg/dL (1.8-2.4) 08/07/18 06:55 Total Bilirubin 0.6 mg/dL (0.2-1.0) 08/04/18 22:18 AST 24 U/L (15-37) 08/04/18 22:18 ALT 18 U/L (12-78) 08/04/18 22:18 Alkaline Phosphatase 113 U/L (46-116) 08/04/18 22:18 Total Protein 6.9 g/dL (6.4-8.2) 08/04/18 22:18 Albumin 3.0 g/dL (3.4-5.0) L 08/04/18 22:18 Lipase 144 U/L (73-393) 08/04/18 22:18 TSH 5.70 uIU/mL (0.358-3.74) H 07/31/18 15:18 Free T4 1.30 ng/dL (0.76-1.46) 07/31/18 15:18 Urine Color Yellow (Yellow) 07/31/18 13:55 Urine Clarity Cloudy 07/31/18 13:55 Urine pH 5.5 (5-8) 07/31/18 13:55 Ur Specific [place] 1.020 (1.005-1.025) 07/31/18 13:55 Urine Protein 30 mg/dL (Negative) H 07/31/18 13:55 Urine Ketones Trace mg/dL (Negative) H 07/31/18 13:55 Urine Blood Moderate (Negative) H 07/31/18 13:55 Urine Nitrite Positive (Negative) H 07/31/18 13:55 Urine Bilirubin Negative (Negative) 07/31/18 13:55 Urine Urobilinogen 0.2 EU/dL (Up TO 0.2) 07/31/18 13:55 Ur Leukocyte Esterase Moderate (Negative) H 07/31/18 13:55 Urine RBC >50 (0-2) H 07/31/18 13:55 Urine WBC >50 HPF (0-5) 07/31/18 13:55 Ur Epithelial Cells Rare HPF (Negative) 07/31/18 13:55 Urine Crystals Negative HPF (Negative) 07/31/18 13:55 Urine Bacteria Moderate HPF (Negative) 07/31/18 13:55 Urine Casts Negative LPF (Negative) 07/31/18 13:55 Urine Mucus Negative (Negative) 07/31/18 13:55 Ur Culture Indicated? Yes 07/31/18 13:55 Urine Glucose Negative mg/dL (Negative) 07/31/18 13:55 Stool Campylobacter PCR See comments 08/01/18 17:02 Stool Salmonella PCR See comments 08/01/18 17:02 Stool Shigella PCR See comments 08/01/18 17:02 Vancomycin Trough Cancelled 08/03/18 17:00 Hep Bs Antigen Cancelled 08/01/18 12:16 Hepatitis C Antibody Cancelled 08/01/18 12:16 HIV 1&2 Ag/Ab, 4th Gen Cancelled 08/01/18 12:16 HIV 1&2 Antibody Rapid Cancelled 08/01/18 12:16 Shiga Toxin (PCR) See comments 08/01/18 17:02
[2018-08-07 19:24] VITALS: BP 126/53; PULSE 69; RESP 18; TEMP 36.1; O2SAT 96
[2018-08-07] MEDS: Normal Saline 500 ML 10 ML IV (20:10)
[2018-08-07] MEDS: Mirtazapine 15 MG TAB PO (21:45)
[2018-08-07] MEDS: Latanoprost 0.005% 2.5 ML BTL OU (21:46)
[2018-08-07] MEDS: Loperamide 2 MG CAP 4 MG PO (21:48)
[2018-08-08] VITALS: BP 106/52; PULSE 88; RESP 16; TEMP 36.9; O2SAT 100
[2018-08-08] MEDS: traMADol 50 MG TAB PO (05:40)
[2018-08-08] MEDS: Levothyroxine 75 MCG TAB PO (05:43)
[2018-08-08 07:28] LABS: Abs Immature Grans 0.03 k/cumm (0.0-0.09); Absolute Basophil Count 0.03 k/cumm (0.0-0.2); Absolute Eosinophil Count 0.11 k/cumm (0.0-0.7); Absolute Lymphocyte Count 1.75 k/cumm (1.2-3.4); Absolute Monocyte Count 0.66 k/cumm (0.11-0.7); Basophils % 0.6; Eosinophils % 2.1; HCT 42.8 % (40.0-50.0); HGB 13.9 g/dL (13.5-17.5); Immature Grans % 0.6; Lymphocytes % 33.1; Mean Corp. HGB Concentration 32.5 g/dL (32.0-36.0); Mean Corpuscular Hemoglobin 29.8 pg (27.0-33.0); Mean Corpuscular Volume 91.6 fL (80-95); Mean Platelet Volume 10.4 fL (8.0-11.0); Monocytes % 12.5; Neutrophils % 51.1; Platelet Count 170 x1000/uL (130-400); RBC 4.67 m/cumm (4.50-6.00); RBC Distribution Width 16.9 % (11.8-14.1); White Blood Cell Count 5.28 k/cumm (4.4-10.8)
[2018-08-08] MEDS: Normal Saline Flush 10 ML SYR IVP (07:29)
[2018-08-08] MEDS: Pantoprazole 40 MG TABCR PO ×2 (07:30→20:05)
[2018-08-08] MEDS: MEROPENEM 1 GM in Normal Saline 100 ML IVPB ×2 (07:30→20:04)
[2018-08-08 07:37] LABS: Anion Gap 5.4 mmol/L (3-11); BUN 25 mg/dL (7-18); CO2 28.6 mmol/L (21.0-32.0); CREATININE 1.41 mg/dL (0.70-1.30); Calcium 9.1 mg/dL (8.5-10.1); Chloride 101 mmol/L (98-107); Estimated GFR 48.12 (mL/min/1.73m2); Glucose 86 mg/dL (70-100); Magnesium 1.8 mg/dL (1.8-2.4); Potassium 4.2 mmol/L (3.5-5.1); Sodium 135 mmol/L (136-145)
[2018-08-08 07:49] VITALS: BP 143/77; PULSE 60; RESP 18; TEMP 37; O2SAT 98
[2018-08-08] MEDS: Fluticasone NASAL SPRAY 16 GM BTL NS ×2 (08:49→20:05)
[2018-08-08] MEDS: Multivitamin w/Minerals TAB 1 TAB PO (08:52)
[2018-08-08] MEDS: Bisacodyl 10 MG SUPP PR (08:52)
[2018-08-08] MEDS: ALPRAZolam 0.25 MG TAB PO ×2 (08:53→20:05)
[2018-08-08] MEDS: Ursodiol 300 MG CAP PO ×2 (08:53→20:05)
[2018-08-08] MEDS: Metoprolol 50 MG TAB 75 MG PO ×2 (08:53→20:05)
[2018-08-08] MEDS: Mometasone 220 MCG 14 DOSE INHALER 2 PUFF IH ×2 (08:54→20:04)
--- NOTE | 2018-08-08 09:28 | PDOC.CMPRO ---
Care Management Progress Note S/O: Annette Larson Dino's CM in the community called to share input on Dino's discharge plan. She reported SNF would be in his best interest, shared he has CFC and would not require skilled level of care for payer source and that if he entered SWB1 she would need to complete 804. She also shared his home would not be conducive to home IV ABX. CM assured Annette that this health technical writer could complete 804, and there were no plans for home IV ABX and Brenden would likely require skilled stay though it was undetermined whether he would enter swing bed at [facility], or attend [facility]. CM spoke with Barbi Goode CM at [facility] notifying of DC planning. Barbi reported coordinating SNF placement under Dino's CFC a few weeks ago, though Dino was only agreeable to [facility] and [facility] who had no bed availability at the time. CM agreed to keep Barbi updated with discharge planning. Dino remains pleasant in interaction and agreeable to recommended disposition upon discharge-including Swing Bed if needed. A: 83 year old gentleman admitted to [facility] 07/31/18 for weakness with UTI. P: Plan for Brenden has changed a few times throughout his hospitalization. He had increased weakness and pain throughout the weekend resulting in reconsideration of SNF stay prior to returning home. Brenden will return [id number]. Undetermined if Brenden will require twice daily IV ABX for two weeks which is the current expectation; he will have Urology consult to inform next steps. If Brenden returns home he will transport via private RCT vehicle coordinated by this health technical writer. Dino will have new orders for RN/PT/OT and resume CFC supports. He will follow up with his PCP and plan of care. CM agreed to contact Ed, and keep him updated with discharge planning considerations.
--- NOTE | 2018-08-08 09:33 | CMPROGNOTE_ITS ---
Care Management Progress Note S/O: Annette Larson Dino's CM in the community called to share input on Dino's discharge plan. She reported SNF would be in his best interest, shared he has CFC and would not require skilled level of care for payer source and that if he entered SWB1 she would need to complete 804. She also shared his home would not be conducive to home IV ABX. CM assured Annette that this display card writer could complete 804, and there were no plans for home IV ABX and Brenden would likely require skilled stay though it was undetermined whether he would enter swing bed at [facility], or attend [facility]. CM spoke with Barbi Goode CM at [facility] notifying of DC planning. Barbi reported coordinating SNF placement under Dino's CFC a few weeks ago, though Dino was only agreeable to [facility] and [facility] who had no bed availability at the time. CM agreed to keep Barbi updated with discharge planning. Dino remains pleasant in interaction and agreeable to recommended disposition upon discharge-including Swing Bed if needed. A: 83 year old gentleman admitted to [facility] 07/31/18 for weakness with UTI. P: Plan for Brenden has changed a few times throughout his hospitalization. He had increased weakness and pain throughout the weekend resulting in reconsideration of SNF stay prior to returning home. Brenden will return [id number]. Undetermined if Brenden will require twice daily IV ABX for two weeks which is the current expectation; he will have Urology consult to inform next steps. If Brenden returns home he will transport via private RCT vehicle coordinated by this display card writer. Dino will have new orders for RN/PT/OT and resume CFC supports. He will follow up with his PCP and plan of care. CM agreed to contact Ed, and keep him updated with discharge planning considerations.
[2018-08-08 11:40] VITALS: BP 125/82; PULSE 56; RESP 16; TEMP 36.7; O2SAT 98
--- NOTE | 2018-08-08 12:48 | PGE_ITS ---
Date of Service Date of service: 08/08/18 Time of Service: 12:39 Assessment and Plan (1) Abdominal pain: Current visit: Yes Status: Acute Reporting severe pain just below insertion site of suprapubic catheter, radiating down urethra. Tramadol helping. Urology consulted to evaluate and make recommendations, consult pending. Continue tramadol for now. (2) Generalized weakness: Current visit: Yes Status: Acute Imrproving. Continue PT. (3) UTI (urinary tract infection): Current visit: Yes Status: Acute Present on admission, associated with a suprapubic catheter, changed in the ED. Growing ESBL and Klebsiella pneumonia on cultures. Continue Meropenem (day #8 of 14 day course). Will discuss length of antibiotic treatment with Urology as well. (4) Chronic constipation: Current visit: Yes Status: Chronic Alternating with diarrhea. C. difficile and fecal leukocytes negative. Continue bowel medications as needed. Avoid imodium. Offer prune juice. (5) COPD (chronic obstructive pulmonary disease): Current visit: No Status: Chronic Appears quiescent at present. Continue home Spiriva and PRN Duonebs. (6) Hypertension: Current visit: No Status: Chronic Blood pressures have been within an acceptable range. Continue beta- suzie therapy. (7) Atrial fibrillation: Current visit: No Status: Chronic Rate controlled. Continue beta-suzie and Pradaxa. (8) DVT prophylaxis: Current visit: Yes Status: Acute Continue pradaxa. On PPI for GI prophylaxis. (9) Discharge planning issues: Current visit: Yes Status: Acute He is a DNR/DNI. He will require IV antibiotics for the full course of treatment due to resistant bacteria on urine culture. Referral sent to [facility] rehab, versus possibly swing bed to complete course of antibiotics. Care management is working on disposition. This case was discussed with Dr. Jim who is in agreement. Subjective Interval history since last seen: Mr. Ross is an 83 year old male with history of CKD, BPH with urinary retention with chronic suprapubic catheter, previous UTIs, atrial fibrillation, tachy-nigel syndrome with pacemaker/AICD, PVD and COPD who is currently being treated for UTI with cultures growing ESBL E. Coli and Klebsiella. He is currently on day #8 of a 14 day course of Meropenem. He reports pain at the suprapubic catheter insertion site and immediately below the site, with radiation down his urethra. He describes the pain as severe and sharp. He reports that Tramadol is helping. Otherwise, he feels better. He reports mild shortness of breath at baseline, no coughing or wheezing, no chest pain/pressure or palpitations, he reports eating and drinking without nausea, vomiting or diarrhea. He continues to work with PT. Exam Narrative Exam Narrative: General: very pleasant Elderly male; sitting up in the chair, in NAD. HEENT: normocephalic, atraumatic, pupils equal and round, mucous membranes moist. Neck: supple, no JVD. Heart: regular rate and rhythm, no murmur appreciated. Lungs: respirations even and unlabored, lung sounds clear throughout. GI: Suprapubic catheter in place and draining. Normoactive bowel sounds throughout. Abdomen soft, tender on palpation below the insertion site of the suprapubic catheter Extremities: trace edema BLE's, L>R. Objective Objective Clinical Data: Abnormal lab results 08/08/18 08/08/18 Range/Units 06:20 06:20 RDW 16.9 H (11.8-14.1) % Sodium 135 L (136-145) mmol/L BUN 25 H (7-18) mg/dL Creatinine 1.41 H (0.70-1.30) mg/dL Vital Signs Temperature 36.7 C 08/08/18 11:40 Temperature Source Tympanic 08/08/18 11:40 Pulse 56 L 08/08/18 11:40 Pulse Rhythm Regular 08/08/18 09:13 Respiratory Rate 16 08/08/18 11:40 Respiratory Effort Non-Labored 08/08/18 09:13 Respiratory Depth Normal 08/08/18 09:13 Respiratory Pattern Normal 08/08/18 09:13 Blood Pressure 125/82 08/08/18 11:40 Blood Pressure Mean 80 07/31/18 16:15 Blood Pressure Position Supine 07/31/18 13:25 Pulse Oximetry 98 08/08/18 11:40 Oxygen Delivery Method Room Air 08/08/18 11:40 Oxygen Flow Rate 0 08/08/18 11:40 Pain Level 3 08/08/18 07:49 Comment 08/05/18 09:15 Intake & Output 02/03/19 02/04/19 02/04/19 23:59 11:59 23:59 Intake Total 580 / 7115.828 3369 / 1180 Output Total 1150 / 2400 1100 / 1100 Balance -570 / -446.667 80 / 80 Weight 86.09 kg Intake: IV 100 / 283.333 100 / 100 Oral 480 / 1670 1080 / 1080 Output: Urine 1150 / 2400 1100 / 1100 Other: Urine Color Yellow Yellow Urine Appearance Clear Clear Stool Size Small Stool Characteristics Soft Liquid Brown Laboratory Results WBC 5.28 k/cumm (4.4-10.8) 08/08/18 06:20 RBC 4.67 m/cumm (4.50-6.00) 08/08/18 06:20 Hgb 13.9 g/dL (13.5-17.5) 08/08/18 06:20 Hct 42.8 % (40.0-50.0) 08/08/18 06:20 MCV 91.6 fL (80-95) 08/08/18 06:20 MCH 29.8 pg (27.0-33.0) 08/08/18 06:20 MCHC 32.5 g/dL (32.0-36.0) 08/08/18 06:20 RDW 16.9 % (11.8-14.1) H 08/08/18 06:20 Plt Count 170 x1000/uL (130-400) 08/08/18 06:20 MPV 10.4 fL (8.0-11.0) 08/08/18 06:20 Immature Gran % 0.6 08/08/18 06:20 Neutrophils % 51.1 08/08/18 06:20 Lymphocytes % 33.1 08/08/18 06:20 Monocytes % 12.5 08/08/18 06:20 Eosinophils % 2.1 08/08/18 06:20 Basophils % 0.6 08/08/18 06:20 Absolute Neutrophils 2.70 k/cumm (1.2-6.7) 08/08/18 06:20 Absolute Lymphocytes 1.75 k/cumm (1.2-3.4) 08/08/18 06:20 Absolute Monocytes 0.66 k/cumm (0.11-0.7) 08/08/18 06:20 Absolute Eosinophils 0.11 k/cumm (0.0-0.7) 08/08/18 06:20 Absolute Basophils 0.03 k/cumm (0.0-0.2) 08/08/18 06:20 PT 12.3 sec (9.3-11.0) H 07/31/18 15:40 INR 1.2 (0.9-1.1) H 07/31/18 15:40 Sodium 135 mmol/L (136-145) L 08/08/18 06:20 Potassium 4.2 mmol/L (3.5-5.1) 08/08/18 06:20 Chloride 101 mmol/L (98-107) 08/08/18 06:20 Carbon Dioxide 28.6 mmol/L (21.0-32.0) 08/08/18 06:20 Anion Gap 5.4 mmol/L (3-11) 08/08/18 06:20 BUN 25 mg/dL (7-18) H 08/08/18 06:20 Creatinine 1.41 mg/dL (0.70-1.30) H 08/08/18 06:20 Estimated GFR/1.73 m2 48.12 (mL/min/1.73m2) 08/08/18 06:20 Glucose 86 mg/dL (70-100) 08/08/18 06:20 Lactate 1.3 mmol/l (0.6-1.4) 08/04/18 22:18 Calcium 9.1 mg/dL (8.5-10.1) 08/08/18 06:20 Magnesium 1.8 mg/dL (1.8-2.4) 08/08/18 06:20 Total Bilirubin 0.6 mg/dL (0.2-1.0) 08/04/18 22:18 AST 24 U/L (15-37) 08/04/18 22:18 ALT 18 U/L (12-78) 08/04/18 22:18 Alkaline Phosphatase 113 U/L (46-116) 08/04/18 22:18 Total Protein 6.9 g/dL (6.4-8.2) 08/04/18 22:18 Albumin 3.0 g/dL (3.4-5.0) L 08/04/18 22:18 Lipase 144 U/L (73-393) 08/04/18 22:18 TSH 5.70 uIU/mL (0.358-3.74) H 07/31/18 15:18 Free T4 1.30 ng/dL (0.76-1.46) 07/31/18 15:18 Urine Color Yellow (Yellow) 07/31/18 13:55 Urine Clarity Cloudy 07/31/18 13:55 Urine pH 5.5 (5-8) 07/31/18 13:55 Ur Specific [place] 1.020 (1.005-1.025) 07/31/18 13:55 Urine Protein 30 mg/dL (Negative) H 07/31/18 13:55 Urine Ketones Trace mg/dL (Negative) H 07/31/18 13:55 Urine Blood Moderate (Negative) H 07/31/18 13:55 Urine Nitrite Positive (Negative) H 07/31/18 13:55 Urine Bilirubin Negative (Negative) 07/31/18 13:55 Urine Urobilinogen 0.2 EU/dL (Up TO 0.2) 07/31/18 13:55 Ur Leukocyte Esterase Moderate (Negative) H 07/31/18 13:55 Urine RBC >50 (0-2) H 07/31/18 13:55 Urine WBC >50 HPF (0-5) 07/31/18 13:55 Ur Epithelial Cells Rare HPF (Negative) 07/31/18 13:55 Urine Crystals Negative HPF (Negative) 07/31/18 13:55 Urine Bacteria Moderate HPF (Negative) 07/31/18 13:55 Urine Casts Negative LPF (Negative) 07/31/18 13:55 Urine Mucus Negative (Negative) 07/31/18 13:55 Ur Culture Indicated? Yes 07/31/18 13:55 Urine Glucose Negative mg/dL (Negative) 07/31/18 13:55 Stool Campylobacter PCR See comments 08/01/18 17:02 Stool Salmonella PCR See comments 08/01/18 17:02 Stool Shigella PCR See comments 08/01/18 17:02 Vancomycin Trough Cancelled 08/03/18 17:00 Hep Bs Antigen Cancelled 08/01/18 12:16 Hepatitis C Antibody Cancelled 08/01/18 12:16 HIV 1&2 Ag/Ab, 4th Gen Cancelled 08/01/18 12:16 HIV 1&2 Antibody Rapid Cancelled 08/01/18 12:16 Shiga Toxin (PCR) See comments 08/01/18 17:02
[2018-08-08] MEDS: Lactobacillus Acidophilus CAP 1 CAP PO ×2 (13:43→20:05)
--- NOTE | 2018-08-08 14:59 | PTTR_ITS ---
Date of service: 08/08/18 Time of Service: 14:57 PT Notes Inpatient Physical Therapy Treatment Note [facility] Date: 08/08/18 PRECAUTIONS: Fall SUBJECTIVE: Brenden is agreeable to participating in PT in both a.m. and p.m. OBJECTIVE: PAIN: During p.m. session, patient complains of low back pain with forward bending exercise. BED MOBILITY/TRANSFERS Sit-stand: I Stand-sit: I GAIT Assistive Device: 4WW Weight bearing: Full Assist: S Distance: 300' x2 in a.m.; 300' in p.m. THEREX: Patient completed a resisted upper extremity and lower extremity str engthening program, as per flow sheet. Patient tolerated progression in upper extremity strengthening program today, modifications made to weight and reps are noted on flow sheet. STAIRS: Up/down 3x4 and 2x6 using B rails and a step-over pattern, independently. NEURO RE-ED: Patient completed a static and dynamic balance retraining program, as per flow sheet. Patient required gait belt, CGA, and unilateral upper extremity support for all dynamic balance activities, safety. Patient also completed unilateral forward step and reach activity with CGA and gait belt for safety. ASSESSMENT: Patient tolerated sessions as well, with minimal complaint of low back pain in p.m. with forward reaching balance activity. Patient was able to tolerate a slight progression in his ther ex program today. Patient would benefit from continued strengthening and neuro reeducation for improved balance and strength. PLAN: Continue with PTs POC TREATMENT CODE/TIME: Session 1: 30 minutes; [id number], [id number] Session 2: 25 minutes; [id number], [id number]
--- NOTE | 2018-08-08 15:04 | UCONE_ITS ---
Date of service: 08/08/18 Time of Service: 14:53 History of Present Illness Chief Complaint: Abdominal pain Narrative: This is an 83-year-old gentleman who has a history of urinary retention. He is not a surgical candidate because of an increased anesthesia risk. He is managed with an indwelling suprapubic tube. His tube was changed when he presented to the emergency room recently. I have been asked to see him because he is been complaining of suprapubic discomfort intermittently. The pain can be severe and radiates to the testes. The pain does not really seem to be related to activity. At the time of his admission, he was found to have bacteriuria. He is on antibiotics. Review of Systems Eyes Reports blurry vision Comments: History of glaucoma Cardiovascular Denies chest pain and Reports dyspnea on exertion Respiratory Denies hemoptysis and Reports dyspnea on exertion Gastrointestinal Reports change in bowel habits and Denies vomiting Musculoskeletal Reports arthralgias Neurologic Denies seizure-like activity [facility] Medical History Atrial fibrillation Chronic obstructive lung disease Diverticulosis of large intestine without diverticulitis Essential hypertension Glaucoma Insomnia Polyp of colon Spinal stenosis of lumbar region Tachycardia-bradycardia Surgical History Colonoscopy - MAC Pacemaker Social History Smoking/Tobacco Use Status: Former Tobacco Use Exam Narrative Exam Narrative: He is a pleasant older gentleman seen sitting up at the bedside. His vital signs are documented elsewhere in the chart His urine is clear and his drainage bag. The suprapubic site itself is clean with no surrounding erythema. Light palpation on the abdomen induces his pain. There is no guarding or rebound tenderness and no peritoneal signs. He is awake, alert and oriented. Reviewed the CT scan that was done on his admission. I do not see any stones within the bladder. His catheter appears to be in good position. Results Last Vital Signs Temp 36.7 C 08/08/18 11:40 Pulse 56 L 08/08/18 11:40 Resp 16 08/08/18 11:40 BP 125/82 08/08/18 11:40 Pulse Ox 98 08/08/18 11:40 Labs : 08/08/18 06:20 08/08/18 06:20 Laboratory Results - last 24 hr 08/08/18 08/08/18 06:20 06:20 WBC 5.28 RBC 4.67 Hgb 13.9 Hct 42.8 MCV 91.6 MCH 29.8 MCHC 32.5 RDW 16.9 H Plt Count 170 MPV 10.4 Immature Gran % 0.6 Neutrophils % 51.1 Lymphocytes % 33.1 Monocytes % 12.5 Eosinophils % 2.1 Basophils % 0.6 Absolute Neutrophils 2.70 Absolute Lymphocytes 1.75 Absolute Monocytes 0.66 Absolute Eosinophils 0.11 Absolute Basophils 0.03 Sodium 135 L Potassium 4.2 Chloride 101 Carbon Dioxide 28.6 Anion Gap 5.4 BUN 25 H Creatinine 1.41 H Estimated GFR/1.73 m2 48.12 Glucose 86 Calcium 9.1 Magnesium 1.8 Assessment and Plan (1) Abdominal pain: Current visit: Yes Status: Acute There is no sign of significant pathology on his CT scan. I agree with Dr. Jim in that his pain is likely from bladder spasms. He is not a candidate for anticholinergic medications with his history of glaucoma and with his bowel dysfunction. He certainly could try the beta 3 agonist Myrbetriq. The biggest side effect to watch for is hypertension. I will give him a single dose of Myrbetriq this afternoon and start a daily dose tomorrow morning. He does report that his pain is under better control with the Ultram that was started yesterday. (2) UTI (urinary tract infection): Current visit: Yes Status: Acute Unfortunately, I do not have much to offer in terms of bacteriuria prevention. This is a chronic issue with any type of indwelling catheter. We recommend not checking cultures routinely and not treating bacteriuria unless the patient is symptomatic. (3) Urinary retention: Current visit: Yes Status: Acute His suprapubic catheter is being used for urinary retention. He has not a surgical candidate and he is unable to perform intermittent catheterization. While the suprapubic catheter is associated with bacteriuria and possible sepsis, it is probably our best option at this point in time. His catheter is changed by the home health providers every 3-4 weeks.
[2018-08-08] MEDS: Mirabegron 50 MG TABCR PO (15:29)
[2018-08-08 16:08] VITALS: BP 132/84; PULSE 66; RESP 18; TEMP 36.7; O2SAT 97
--- NOTE | 2018-08-08 18:44 | NUR.NOTE ---
Nursing Note: Report received from TOREY Gu. Patient is currently in stable condition, resting in bed, no report of pain or discomfort at this time, the bed is in the low and locked position, side rails up x2, call light within reach, bed alarm on.
[2018-08-08] MEDS: Polyethylene Glycol 3350 17 GM PACKET PO (20:06)
[2018-08-08] MEDS: Mirtazapine 15 MG TAB PO (21:46)
[2018-08-08] MEDS: Latanoprost 0.005% 2.5 ML BTL OU (21:46)
[2018-08-08 23:43] VITALS: BP 135/76; PULSE 71; RESP 22; TEMP 36.8; O2SAT 96
[2018-08-09 03:28] VITALS: BP 105/64; PULSE 60; RESP 18; TEMP 36.9; O2SAT 99
[2018-08-09] MEDS: Levothyroxine 75 MCG TAB PO (05:08)
[2018-08-09] MEDS: Pantoprazole 40 MG TABCR PO (06:33)
--- NOTE | 2018-08-09 07:42 | PGE_ITS ---
Date of Service Date of service: 08/09/18 Time of Service: 07:37 Assessment and Plan (1) Abdominal pain: Current visit: Yes Status: Acute At this point, his symptoms are controlled with a combination of Myrbetriq and tramadol. When he is discharged, he should have a prescription for Myrbetriq 50 mg daily. At times, insurance companies request a trial of an anticholinergic before they will approve Myrbetriq. Anticholinergics are contraindicated in this gentleman because of his glaucoma and bowel dysfunction. His suprapubic catheter needs to be changed every 3-4 weeks. Initially, we were changing the catheter in our office for him. As transportation became more and more of an issue, we had arranged for visiting nurses to change his catheter. Once he is discharged, I would recommend reinstituting his visiting nurse care. We can see him on a as needed basis to minimize his trips back and forth to the office. Subjective Interval history since last seen: Chief complaint: Abdominal pain Mr. Ross reports a comfortable night. He had no real suprapubic pain. He tolerated his initial dose of Myrbetriq. He has been using tramadol on an as needed basis Exam Narrative Exam Narrative: He looks comfortable this morning. His vital signs are documented elsewhere in the chart. Of particular interest, his blood pressure remained stable. His urine is grossly clear. Objective Objective Clinical Data: Abnormal lab results 08/08/18 Range/Units 06:20 Sodium 135 L (136-145) mmol/L BUN 25 H (7-18) mg/dL Creatinine 1.41 H (0.70-1.30) mg/dL Vital Signs Temperature 36.9 C 08/09/18 03:28 Temperature Source Tympanic 08/09/18 03:28 Pulse 60 08/09/18 03:28 Pulse Rhythm Regular 08/08/18 21:52 Respiratory Rate 18 08/09/18 03:28 Respiratory Effort Non-Labored 08/08/18 21:52 Respiratory Depth Normal 08/08/18 21:52 Respiratory Pattern Normal 08/08/18 21:52 Blood Pressure 105/64 08/09/18 03:28 Blood Pressure Mean 80 07/31/18 16:15 Blood Pressure Position Supine 07/31/18 13:25 Pulse Oximetry 99 08/09/18 03:28 Oxygen Delivery Method Room Air 08/09/18 03:28 Oxygen Flow Rate 0 08/09/18 03:28 Pain Level 0 08/08/18 16:08 Comment 08/05/18 09:15 Intake & Output 08/08/18 08/08/18 08/09/18 11:59 23:59 11:59 Intake Total 1180 / 2272.167 1092.167 / 2272.167 Output Total 1100 / 1450 350 / 1450 650 / 650 Balance 80 / 822.167 742.167 / 822.167 -650 / -650 Weight 86.09 kg 86.5 kg Intake: IV 100 / 462.167 362.167 / 462.167 Oral 1080 / 1810 730 / 1810 Output: Urine 1100 / 1450 350 / 1450 650 / 650 Other: Urine Color Yellow Yellow Urine Appearance Clear Clear Laboratory Results WBC 5.28 k/cumm (4.4-10.8) 08/08/18 06:20 RBC 4.67 m/cumm (4.50-6.00) 08/08/18 06:20 Hgb 13.9 g/dL (13.5-17.5) 08/08/18 06:20 Hct 42.8 % (40.0-50.0) 08/08/18 06:20 MCV 91.6 fL (80-95) 08/08/18 06:20 MCH 29.8 pg (27.0-33.0) 08/08/18 06:20 MCHC 32.5 g/dL (32.0-36.0) 08/08/18 06:20 RDW 16.9 % (11.8-14.1) H 08/08/18 06:20 Plt Count 170 x1000/uL (130-400) 08/08/18 06:20 MPV 10.4 fL (8.0-11.0) 08/08/18 06:20 Immature Gran % 0.6 08/08/18 06:20 Neutrophils % 51.1 08/08/18 06:20 Lymphocytes % 33.1 08/08/18 06:20 Monocytes % 12.5 08/08/18 06:20 Eosinophils % 2.1 08/08/18 06:20 Basophils % 0.6 08/08/18 06:20 Absolute Neutrophils 2.70 k/cumm (1.2-6.7) 08/08/18 06:20 Absolute Lymphocytes 1.75 k/cumm (1.2-3.4) 08/08/18 06:20 Absolute Monocytes 0.66 k/cumm (0.11-0.7) 08/08/18 06:20 Absolute Eosinophils 0.11 k/cumm (0.0-0.7) 08/08/18 06:20 Absolute Basophils 0.03 k/cumm (0.0-0.2) 08/08/18 06:20 PT 12.3 sec (9.3-11.0) H 07/31/18 15:40 INR 1.2 (0.9-1.1) H 07/31/18 15:40 Sodium 135 mmol/L (136-145) L 08/08/18 06:20 Potassium 4.2 mmol/L (3.5-5.1) 08/08/18 06:20 Chloride 101 mmol/L (98-107) 08/08/18 06:20 Carbon Dioxide 28.6 mmol/L (21.0-32.0) 08/08/18 06:20 Anion Gap 5.4 mmol/L (3-11) 08/08/18 06:20 BUN 25 mg/dL (7-18) H 08/08/18 06:20 Creatinine 1.41 mg/dL (0.70-1.30) H 08/08/18 06:20 Estimated GFR/1.73 m2 48.12 (mL/min/1.73m2) 08/08/18 06:20 Glucose 86 mg/dL (70-100) 08/08/18 06:20 Lactate 1.3 mmol/l (0.6-1.4) 08/04/18 22:18 Calcium 9.1 mg/dL (8.5-10.1) 08/08/18 06:20 Magnesium 1.8 mg/dL (1.8-2.4) 08/08/18 06:20 Total Bilirubin 0.6 mg/dL (0.2-1.0) 08/04/18 22:18 AST 24 U/L (15-37) 08/04/18 22:18 ALT 18 U/L (12-78) 08/04/18 22:18 Alkaline Phosphatase 113 U/L (46-116) 08/04/18 22:18 Total Protein 6.9 g/dL (6.4-8.2) 08/04/18 22:18 Albumin 3.0 g/dL (3.4-5.0) L 08/04/18 22:18 Lipase 144 U/L (73-393) 08/04/18 22:18 TSH 5.70 uIU/mL (0.358-3.74) H 07/31/18 15:18 Free T4 1.30 ng/dL (0.76-1.46) 07/31/18 15:18 Urine Color Yellow (Yellow) 07/31/18 13:55 Urine Clarity Cloudy 07/31/18 13:55 Urine pH 5.5 (5-8) 07/31/18 13:55 Ur Specific [place] 1.020 (1.005-1.025) 07/31/18 13:55 Urine Protein 30 mg/dL (Negative) H 07/31/18 13:55 Urine Ketones Trace mg/dL (Negative) H 07/31/18 13:55 Urine Blood Moderate (Negative) H 07/31/18 13:55 Urine Nitrite Positive (Negative) H 07/31/18 13:55 Urine Bilirubin Negative (Negative) 07/31/18 13:55 Urine Urobilinogen 0.2 EU/dL (Up TO 0.2) 07/31/18 13:55 Ur Leukocyte Esterase Moderate (Negative) H 07/31/18 13:55 Urine RBC >50 (0-2) H 07/31/18 13:55 Urine WBC >50 HPF (0-5) 07/31/18 13:55 Ur Epithelial Cells Rare HPF (Negative) 07/31/18 13:55 Urine Crystals Negative HPF (Negative) 07/31/18 13:55 Urine Bacteria Moderate HPF (Negative) 07/31/18 13:55 Urine Casts Negative LPF (Negative) 07/31/18 13:55 Urine Mucus Negative (Negative) 07/31/18 13:55 Ur Culture Indicated? Yes 07/31/18 13:55 Urine Glucose Negative mg/dL (Negative) 07/31/18 13:55 Stool Campylobacter PCR See comments 08/01/18 17:02 Stool Salmonella PCR See comments 08/01/18 17:02 Stool Shigella PCR See comments 08/01/18 17:02 Vancomycin Trough Cancelled 08/03/18 17:00 Hep Bs Antigen Cancelled 08/01/18 12:16 Hepatitis C Antibody Cancelled 08/01/18 12:16 HIV 1&2 Ag/Ab, 4th Gen Cancelled 08/01/18 12:16 HIV 1&2 Antibody Rapid Cancelled 08/01/18 12:16 Shiga Toxin (PCR) See comments 08/01/18 17:02
[2018-08-09 07:49] VITALS: BP 132/80; PULSE 64; RESP 18; TEMP 36.2; O2SAT 98
[2018-08-09] MEDS: Mometasone 220 MCG 14 DOSE INHALER 2 PUFF IH (07:53)
[2018-08-09] MEDS: Fluticasone NASAL SPRAY 16 GM BTL NS (07:54)
[2018-08-09] MEDS: Polyethylene Glycol 3350 17 GM PACKET PO (07:54)
[2018-08-09] MEDS: Multivitamin w/Minerals TAB 1 TAB PO (07:55)
[2018-08-09] MEDS: Ursodiol 300 MG CAP PO (07:55)
[2018-08-09] MEDS: Metoprolol 50 MG TAB 75 MG PO (07:55)
[2018-08-09] MEDS: Mirabegron 50 MG TABCR PO (07:55)
[2018-08-09] MEDS: Lactobacillus Acidophilus CAP 1 CAP PO ×2 (07:55→13:10)
[2018-08-09] MEDS: ALPRAZolam 0.25 MG TAB PO (07:55)
[2018-08-09] MEDS: MEROPENEM 1 GM in Normal Saline 100 ML IVPB (08:05)
[2018-08-09] MEDS: Normal Saline Flush 10 ML SYR IVP (08:05)
--- NOTE | 2018-08-09 09:38 | PDOC.CMPRO ---
Care Management Progress Note Brenden will enter SWB1 for continued BID IV ABX treating ESDL and Klebsiella pneumonia per MD; anticipated round of IV ABX completed day 14; 08/14/18. Brenden remains on precautions. Once ready for discharge, Brenden will likely have a continued SNF stay at [facility]; the only facility he will currently consider. [facility] reports no MD availability until 08/19/18. When Brenden eventually he will resume home based supports with assumed RN/PT/OT and resumption of [facility] supports. He will follow up with his PCP and plan of care. CM agreed to contact Ed, and keep him updated with discharge planning considerations.
--- NOTE | 2018-08-09 09:50 | CMPROGNOTE_ITS ---
Care Management Progress Note Brenden will enter SWB1 for continued BID IV ABX treating ESDL and Klebsiella pneumonia per MD; anticipated round of IV ABX completed day 14; 08/14/18. Brenden remains on precautions. Once ready for discharge, Brenden will likely have a continued SNF stay at [facility]; the only facility he will currently consider. [facility]any [facility] reports no MD availability until 08/19/18. When Brenden eventually he will resume home based supports with assumed RN/PT/OT and resumption of [facility] supports. He will follow up with his PCP and plan of care. CM agreed to contact Ed, and keep him updated with discharge planning considerations.
[2018-08-09 11:40] VITALS: BP 121/60; PULSE 65; RESP 18; TEMP 36.2; O2SAT 98
--- NOTE | 2018-08-09 12:58 | DSE_ITS ---
Date of service: 08/09/18 Time of Service: 12:57 DS: Diagnosis Discharge Diagnosis (1) Abdominal pain: Status: Acute Discharge Plan Disposition Patient Disposition: [facility] SWING BED LEVEL 1 Condition: Stable Discharge Details Reason For Visit: WEAKNESS WITH UTI Admit Date/Time: 07/31/18 18:11 Admit Provider: Yung Bernardo Attending Provider: Yung Bernardo Primary Care Provider: Lorena Chong Hospital Course Hospital Course: Mr. Ross is an 83 year old man with a prior medical history significant for BPH with urinary retention, s/p suprapubic catheter placement in the past, prior UTIs with a history of multidrug-resistant and ESBL organisms admitted from [facility] Emergency Room on 07/31/18 with a diagnosis of a UTI. He has a prior history of A. fib on anticoagulation, CHF but with prior echo in 2015 showing a normal LVEF, sick sinus syndrome S/P PPM/AICD, PVD, and COPD. The patient also has a history of hypothyroidism, severe diverticulosis, anxiety, and prior EtOH and tobacco use. He presented to the ED on 07/31/18 with complaints of weakness as well as a clogged suprapubic catheter. Workup in the ED was positive for a UTI, with CT scan showing no evidence of hydronephrosis. He did not have any leukocytosis on labs, and while his creatinine was mildly elevated it appeared to be at its former baseline. He was also found to be hypothermic, with a low temperature of 34.9. He was also not significantly hypotensive or tachycardic. His catheter was changed in the ED. He was admitted to the med/surg floor and started on broad spectrum antibiotics with Vanco and Meropenem. His urine culture grew ESBL e-coli and Klebsiella. Blood cultures negative. C-diff and stool Lactoferrin negative. The Vanco was discontinued. Sensitivities show resistant bacteria. He will need to remain on Meropenem for a full 14 day course. He is currently on day #9. He will transition to swing bed to complete antibiotics. Of note, he also reported low abdominal pain, below the site of the suprapubic catheter and radiating down his urethra. A urology consult was placed. Urology agreed that this may represent bladder spasms and initiated Myrbetriq. Anticholinergics are contraindicated in this patient due of his glaucoma and bowel dysfunction. The patient was previously started on tramadol. He reports improvement in his pain today with this combination. He will need to be monitored for hypertension with the initiation of Myrbetriq. He has a history of atrial fibrillation, his heart rate has been well controlled, he is anticoagulated on Pradaxa. The patient transitions to swing bed level of care today to complete a full 14 day course of IV antibiotics. He will continue PT and OT while on swing bed status. Home Meds and New Rx's Prescriptions: Continued latanoprost 2.5 ML drops 1 drp OU HS RF: 0 Azopt 5 ML drops,suspension 1 drp OU DAILY RF: 0 metoprolol tartrate 50 MG tablet 75 mg PO BID Qty: 270 RF: 3 Spiriva with HandiHaler 18 MCG capsule, w/inhalation device 1 cap Inhalation DAILY RF: 0 nitroglycerin [Nitrostat] 0.4 MG tablet, sublingual 0.4 mg Sublingual Q5 MIN PRN X3 PRNQty: 60 RF: 0 potassium chloride [Klor-Con M20] 20 MEQ tablet,ER particles/crystals 20 meq PO DAILY AM Qty: 30 RF: 0 acetaminophen [Tylenol] 325 MG tablet 650 mg PO Q4H PRN PRNRF: 0 multivitamin with minerals [Multiple Vitamin-Minerals] 1 EACH tablet 1 tab PO DAILY RF: 0 mirtazapine [Remeron] 15 MG tablet 15 mg PO HS RF: 0 levothyroxine 75 MCG tablet 75 mcg PO DAILY@0600 RF: 0 cholecalciferol (vitamin D3) 1,000 UNITS tablet 1 tab PO Q30D RF: 0 bisacodyl 10 MG suppository 10 mg DC DAILY RF: 0 Fluticasone Propionate [24 Hour Allergy] 9.9 ML [place].Susp 9.9 ml NS BID RF: 0 Flovent HFA 120 PUFF HFA aerosol inhaler 2 puff Inhalation BID RF: 0 furosemide 20 MG tablet 40 mg PO DAILY RF: 0 albuterol sulfate 2.5 MG/3 ML solution for nebulization 3 ml IN Q4H PRN PRNRF: 0 pantoprazole 40 MG tablet,delayed release (DR/EC) 40 mg PO BID Qty: 0 RF: 0 ursodiol [Actigall] 300 MG capsule 300 mg PO BID RF: 0 Pradaxa 75 MG capsule 150 mg PO BID Qty: 0 RF: 0 alprazolam 0.25 MG tablet 0.25 mg PO BID Qty: 60 RF: 0 Discharge Instructions Stand Alone Forms: Nursing Discharge Form Referrals: Lorena Chong [Primary Care Provider] - Activity:: Activity as Tolerated Equipment/Supplies:: No Equipment Needed Diet:: As Tolerated Discharge Orders Discharge Orders: Discharge Order (Routine); Ordered 08/09/18 Ordered By: Sandy Riley Exam Narrative Exam Narrative: General: very pleasant Elderly male; sitting up in the chair, in NAD. HEENT: normocephalic, atraumatic, pupils equal and round, mucous membranes moist. Neck: supple, no JVD. Heart: irregularly irregular, no murmur appreciated. Lungs: respirations even and unlabored, lung sounds clear throughout. GI: Suprapubic catheter in place and draining. Normoactive bowel sounds throughout. Abdomen soft, tender on palpation below the insertion site of the suprapubic catheter. Extremities: trace edema BLE's. DS: Data Vitals/I&O Vitals and I&O: Vital Signs Temperature 36.2 C L 08/09/18 11:40 Temperature Source Tympanic 08/09/18 11:40 Pulse 65 08/09/18 11:40 Pulse Rhythm Regular 08/09/18 09:03 Respiratory Rate 18 08/09/18 11:40 Respiratory Effort Non-Labored 08/09/18 09:03 Respiratory Depth Normal 08/09/18 09:03 Respiratory Pattern Normal 08/09/18 09:03 Blood Pressure 121/60 08/09/18 11:40 Blood Pressure Mean 80 07/31/18 16:15 Blood Pressure Position Supine 07/31/18 13:25 Pulse Oximetry 98 08/09/18 11:40 Oxygen Delivery Method Room Air 08/09/18 11:40 Oxygen Flow Rate 0 08/09/18 11:40 Pain Level 3 08/09/18 11:40 Comment 08/05/18 09:15 Intake & Output 08/08/18 08/09/18 08/09/18 23:59 11:59 23:59 Intake Total 1092.167 / 2272.167 460 / 460 Output Total 350 / 1450 650 / 650 Balance 742.167 / 822.167 -190 / -190 Weight 86.5 kg Intake: IV 362.167 / 462.167 100 / 100 Oral 730 / 1810 360 / 360 Output: Urine 350 / 1450 650 / 650 Other: Urine Color Yellow Urine Appearance Clear Clear Completed studies during hospitalization [Text1]: 07/31/18: NONCONTRAST CT OF THE ABDOMEN AND PELVIS: Pacemaker leads are seen. The lung bases show minimal dependent changes. The patient is status post cholecystectomy. The liver, spleen, adrenals and kidneys are unremarkable. No renal calculi or hydronephrosis is seen. A suprapubic catheter is in place. The prostate is enlarged. The pancreas appears somewhat atrophic. The aorta shows calcification but is normal in diameter. The appendix is normal. There is extensive diverticulosis of the descending and sigmoid colon but no evidence of diverticulitis. There is no small bowel dilatation. Degenerative changes are seen in the spine. IMPRESSION: Suprapubic catheter. No evidence of hydronephrosis. Severe diverticulosis. 08/03/18: FLAT AND UPRIGHT VIEWS ABDOMEN: Comparison is made with 28 July 2017. Cardiomegaly and pacemaker as well as right upper quadrant surgical clips and suprapubic catheter are noted. The bowel gas pattern is unremarkable. There is normal quantity of stool. There may be tiny bilateral pleural effusions. Scoliosis and degenerative changes are seen in the spine. IMPRESSION: No acute abnormality or change. 08/04/18: ABDOMEN AND PELVIC CT; 08/04/18 CT examination of the abdomen and pelvis was performed without contrast administration. There are small bilateral pleural effusions which were not present on previous CT of 07/31/18. The patient has reportedly had recent ERCP and sphincterotomy with stone extraction from the biliary tract. There is gas in the biliary tract. No biliary dilatation. No focal hepatic abnormalities seen by noncontrast criteria. Multiple small splenic calcifications noted. The pancreas is grossly unremarkable in appearance. Mildly enlarged portal nodes noted which are nonspecific. Adrenals and kidneys are unremarkable except for probable mild renal cortical atrophy bilaterally. Abdominal aorta is of normal diameter. No significant abdominal wall hernia seen, although there are small fat containing inguinal hernias. Suprapubic urinary bladder catheter is present and the bladder has collapsed. Appendix is normal. There is marked colonic diverticulosis without evidence of diverticulitis. CONCLUSION: Bilateral pleural effusions which are new since the previous examination. No other acute findings. [facility] Medical History Atrial fibrillation Chronic obstructive lung disease Diverticulosis of large intestine without diverticulitis Essential hypertension Glaucoma Insomnia Polyp of colon Spinal stenosis of lumbar region Tachycardia-bradycardia Surgical History Colonoscopy - MAC Pacemaker Social History Smoking/Tobacco Use Status: Former Tobacco Use
--- NOTE | 2018-08-09 13:00 | PT.INDS ---
Date of service: 08/09/18 Time of Service: 11:00 PT Notes Date: 08/09/18 Referring Doctor: Yung Bernardo PT Orders: PT CONSULT: 83-year old gentleman who lives alone with questionable safety with ambulation, admitted for UTI with weakness out of proportion to clinical findings Precautions: Fall, standard Treatment Dates: 08/02/18 - 08/09/18 Patient Profile/Admitting Diagnosis: Patient admitted from ER on 08/01/18 for generalized weakness due to UTI, with questionable safety at home. He's participated in skilled PT intervention 1-2x/day for 8 days, with a total of 14 sessions during that time. PMHX: Chronic kidney disease, atrial fibrillation status post pacemaker placement, COPD, hypertension Social History/Home Situation: [place] a flight of outdoor steps going down an embankment to his home, which he is required to manage to get into the home. He has approximately 12 steps, with bilateral rails. He has housekeepers to come in daily, and a neighbor who checks on him twice a day. He typically ambulates with a wheeled walker. He utilizes a commode within the house, stating that he has an outhouse, which he uses only in the summer months. Equipment Owned/DME: WW, commode Subjective: Patient states that he is feeling well today. Objective: General Observation: Sitting up in chair at initiation of session. He has a Kang catheter in place. Mental Status: A&Ox3 Pain: denies ROM: Right Upper Extremity: WFL Left Upper Extremity: WFL Right Lower Extremity: WFL Left Lower Extremity: WFL Strength: Right Upper Extremity: Shoulder flexion 4+/5. Triceps 4/5. Clinical Social Work Therapist is strong and equal. Left Upper Extremity: Shoulder flexion 4+/5. Triceps 4/5. Clinical Social Work Therapist is strong and equal. Right Lower Extremity: Hip flexion 5/5. Quads 4+/5. Ankle DF 4+/5. Left Lower Extremity: Hip flexion 5/5. Quads 4+/5. Ankle DF 4+/5. Bed Mobility/Transfers: Supine to sit: Independent Sit to supine: Independent Sit to stand: Independent Stand to sit: Independent Bed to chair: Supervision with 4WW. Patient requires assistance for management of catheter. Gait: Patient ambulates 300 feet x2 with 4WW, supervision, full weightbearing. He requires assistance for management of his lines. Balance: Static Sitting: Normal Dynamic Sitting: Normal Static Standing:good Dynamic Standing: good Selby Balance testing shows score of 36/56 (moderate fall risk category; see scanned documents for full test results) Stairs: Patient able to ascend and descend therapeutic stairs (6x4, 4x6) with bilat rails, step to pattern independently, with assistance for management of lines (performed 08/08/18). Special Tests: Mobility Limitations Standardized Measure [facility] AM-PAC 6 clicks Basic Mobility Inpatient Short Form: Raw Score: 22 standardized Score: 53.28 CMS Score: 21% Treatment: Today's session consisted of re-evaluation, followed by instruction in therex program as noted on flowsheet. Patient also performed progressive ambulation for cardiovascular conditioning and safety training. Progress balance retraining activities, as noted on flowsheet. Assessment: Patient is a 83 year old male referred to physical therapy services with the diagnosis of generalized weakness related to UTI, with questionable safety at home. Patient has participated in 14 PT sessions over the past 8 days, and is demonstrating improvements in safety and mobility. He continues to demonstrate deficits in AM-PAC scores, and has a significant deficit on Selby balance testing today, placing him at moderate fall risk. He has medically stabilized, and will be transitioning to swing bed level of care for continued antibiotic treatment. He will benefit from continued PT intervention 1 time per day to prevent deconditioning and address continued balance deficits. He will also require continued PT intervention upon discharge, to maximize safety and mobility as he transitions back home. [facility] score 21% deficit. Goals: Goals X1 week 1. Supine-Sit: Independent (MET) 2. Sit-Supine : Independent(MET) 3. Sit-Stand : Independent(MET) 4. Stand-Sit: Independent(MET) 5. Bed-Chair : Independent with WW (PROGRESSING TOWARD) 6. Chair-Bed : Independent with WW(PROGRESSING TOWARD) 7. Gait : Patient able to ambulate 50 feet with FW W and contact-guard (MET) 8. Stairs : Patient able to manage full flight of stairs with bilateral upper extremity support to rails and supervision only (PROGRESSING TOWARD) NEW GOALS: 1. Patient able to ambulate 300' with 4WW and supervision only. (MET) 2. Improve balance, as indicated by Selby balance score of 40/56 or greater, reflecting clinically significant change and indicating reduced fall risk in the community Plan of Care/Treatment Plan: 1-2x/day, 7 days/week x 1 week. Plan of care has been reviewed with the HVAC SERVICES PROFESSIONAL providing the service under Physical Therapy direction. Initiate Physical Therapy intervention for strengthening, bed mobility, transfers, gait, stairs, balance training, use of assistive device. DISCHARGE RECOMMENDATIONS: Patient will likely be transitioning to group home facility upon DC from swing bed level of care; will benefit from continued PT intervention in that setting to prevent functional decline during prolonged hospitalization, and from resumption of home health services upon DC home TREATMENT CODE/TIME: See SB initial evaluation note with today's date for treatment codes
--- NOTE | 2018-08-09 13:04 | NUR.NOTE ---
Pt being discharged from acute to swingbed today. Pt is remaining in room 226. Nursing Note:
--- NOTE | 2018-08-09 13:09 | INDS_ITS ---
Date of service: 08/09/18 Time of Service: 11:00 PT Notes Date: 08/09/18 Referring Doctor: Yung Bernardo PT Orders: PT CONSULT: 83-year old gentleman who lives alone with questionable safety with ambulation, admitted for UTI with weakness out of proportion to clinical findings Precautions: Fall, standard Treatment Dates: 08/02/18 - 08/09/18 Patient Profile/Admitting Diagnosis: Patient admitted from ER on 08/01/18 for generalized weakness due to UTI, with questionable safety at home. He's participated in skilled PT intervention 1-2x/day for 8 days, with a total of 14 sessions during that time. PMHX: Chronic kidney disease, atrial fibrillation status post pacemaker placement, COPD, hypertension Social History/Home Situation: Patient [place] He has a flight of outdoor steps going down an embankment to his home, which he is required to manage to get into the home. He has approximately 12 steps, with bilateral rails. He has housekeepers to come in daily, and a neighbor who checks on him twice a day. He typically ambulates with a wheeled walker. He utilizes a commode within the house, stating that he has an outhouse, which he uses only in the summer months. Equipment Owned/DME: WW, commode Subjective: Patient states that he is feeling well today. Objective: General Observation: Sitting up in chair at initiation of session. He has a Kang catheter in place. Mental Status: A&Ox3 Pain: denies ROM: Right Upper Extremity: WFL Left Upper Extremity: WFL Right Lower Extremity: WFL Left Lower Extremity: WFL Strength: Right Upper Extremity: Shoulder flexion 4+/5. Triceps 4/5. Lieutenant/Deputy is strong and equal. Left Upper Extremity: Shoulder flexion 4+/5. Triceps 4/5. Lieutenant/Deputy is strong and equal. Right Lower Extremity: Hip flexion 5/5. Quads 4+/5. Ankle DF 4+/5. Left Lower Extremity: Hip flexion 5/5. Quads 4+/5. Ankle DF 4+/5. Bed Mobility/Transfers: Supine to sit: Independent Sit to supine: Independent Sit to stand: Independent Stand to sit: Independent Bed to chair: Supervision with 4WW. Patient requires assistance for management of catheter. Gait: Patient ambulates 300 feet x2 with 4WW, supervision, full weightbearing. He requires assistance for management of his lines. Balance: Static Sitting: Normal Dynamic Sitting: Normal Static Standing:good Dynamic Standing: good Selby Balance testing shows score of 36/56 (moderate fall risk category; see scanned documents for full test results) Stairs: Patient able to ascend and descend therapeutic stairs (6x4, 4x6) with bilat rails, step to pattern independently, with assistance for management of lines (performed 08/08/18). Special Tests: Mobility Limitations Standardized Measure [facility] AM-PAC 6 clicks Basic Mobility Inpatient Short Form: Raw Score: 22 standardized Score: 53.28 CMS Score: 21% Treatment: Today's session consisted of re-evaluation, followed by instruction in therex program as noted on flowsheet. Patient also performed progressive ambulation for cardiovascular conditioning and safety training. Progress balance retraining activities, as noted on flowsheet. Assessment: Patient is a 83 year old male referred to physical therapy services with the diagnosis of generalized weakness related to UTI, with questionable safety at home. Patient has participated in 14 PT sessions over the past 8 days, and is demonstrating improvements in safety and mobility. He continues to demonstrate deficits in AM-PAC scores, and has a significant deficit on Selby balance testing today, placing him at moderate fall risk. He has medically stabilized, and will be transitioning to swing bed level of care for continued antibiotic treatment. He will benefit from continued PT intervention 1 time per day to prevent deconditioning and address continued balance deficits. He will also require continued PT intervention upon discharge, to maximize safety and mobility as he transitions back home. [facility] score 21% deficit. Goals: Goals X1 week 1. Supine-Sit: Independent (MET) 2. Sit-Supine : Independent(MET) 3. Sit-Stand : Independent(MET) 4. Stand-Sit: Independent(MET) 5. Bed-Chair : Independent with WW (PROGRESSING TOWARD) 6. Chair-Bed : Independent with WW(PROGRESSING TOWARD) 7. Gait : Patient able to ambulate 50 feet with FW W and contact-guard (MET) 8. Stairs : Patient able to manage full flight of stairs with bilateral upper extremity support to rails and supervision only (PROGRESSING TOWARD) NEW GOALS: 1. Patient able to ambulate 300' with 4WW and supervision only. (MET) 2. Improve balance, as indicated by Selby balance score of 40/56 or greater, reflecting clinically significant change and indicating reduced fall risk in the community Plan of Care/Treatment Plan: 1-2x/day, 7 days/week x 1 week. Plan of care has been reviewed with the SHIP RUNNER providing the service under Physical Therapy direction. Initiate Physical Therapy intervention for strengthening, bed mobility, transfers, gait, stairs, balance training, use of assistive device. DISCHARGE RECOMMENDATIONS: Patient will likely be transitioning to group home facility upon DC from swing bed level of care; will benefit from continued PT intervention in that setting to prevent functional decline during prolonged hospitalization, and from resumption of home health services upon DC home TREATMENT CODE/TIME: See SB initial evaluation note with today's date for treatment codes
--- NOTE | 2018-08-09 13:58 | PT.INIE ---
Date of service: 08/09/18 Time of Service: 14:00 PT Notes Date: 08/09/18 Referring Doctor: Sandy Riley PT Orders: PT CONSULT: continue PT on Swing Bed status. Generalized weakness, UTI Precautions: Fall, standard Patient Profile/Admitting Diagnosis: Patient admitted from ER on 08/01/18 for generalized weakness due to UTI, with questionable safety at home. He's participated in skilled PT intervention 1-2x/day for 8 days, with a total of 14 sessions during that time. He's now transitioned to Swing Bed status for continuation of antibiotic treatment. PMHX: Chronic kidney disease, atrial fibrillation status post pacemaker placement, COPD, hypertension Social History/Home Situation: Patient [place] He has a flight of outdoor steps going down an embankment to his home, which he is required to manage to get into the home. He has approximately 12 steps, with bilateral rails. He has housekeepers to come in daily, and a neighbor who checks on him twice a day. He typically ambulates with a wheeled walker. He utilizes a commode within the house, stating that he has an outhouse, which he uses only in the summer months. Equipment Owned/DME: WW, commode Subjective: Patient states that he is feeling well today. Objective: General Observation: Sitting up in chair at initiation of session. He has a Kang catheter in place. Mental Status: A&Ox3 Pain: denies ROM: Right Upper Extremity: WFL Left Upper Extremity: WFL Right Lower Extremity: WFL Left Lower Extremity: WFL Strength: Right Upper Extremity: Shoulder flexion 4+/5. Triceps 4/5. Dynamite Reclaimer is strong and equal. Left Upper Extremity: Shoulder flexion 4+/5. Triceps 4/5. Dynamite Reclaimer is strong and equal. Right Lower Extremity: Hip flexion 5/5. Quads 4+/5. Ankle DF 4+/5. Left Lower Extremity: Hip flexion 5/5. Quads 4+/5. Ankle DF 4+/5. Bed Mobility/Transfers: Supine to sit: Independent Sit to supine: Independent Sit to stand: Independent Stand to sit: Independent Bed to chair: Supervision with 4WW. Patient requires assistance for management of catheter. Gait: Patient ambulates 300 feet x2 with 4WW, supervision, full weightbearing. He requires assistance for management of his lines. Balance: Static Sitting: Normal Dynamic Sitting: Normal Static Standing:good Dynamic Standing: good Selby Balance testing shows score of 36/56 (moderate fall risk category; see scanned documents for full test results) Stairs: Patient able to ascend and descend therapeutic stairs (6x4, 4x6) with bilat rails, step to pattern independently, with assistance for management of lines (performed 08/08/18). Special Tests: Mobility Limitations Standardized Measure [facility] AM-PAC 6 clicks Basic Mobility Inpatient Short Form: Raw Score: 22 standardized Score: 53.28 CMS Score: 21% Treatment: Today's session consisted of re-evaluation, followed by instruction in therex program as noted on flowsheet. Patient also performed progressive ambulation for cardiovascular conditioning and safety training. Progress balance retraining activities, as noted on flowsheet. Assessment: Patient is a 83 year old male referred to physical therapy services with the diagnosis of generalized weakness related to UTI, with questionable safety at home. Patient has participated in 14 PT sessions over the past 8 days, and is demonstrating improvements in safety and mobility. He continues to demonstrate deficits in AM-PAC scores, and has a significant deficit on Selby balance testing today, placing him at moderate fall risk. He has medically stabilized, and will be transitioning to swing bed level of care for continued antibiotic treatment. He will benefit from continued PT intervention 1 time per day to prevent deconditioning and address continued balance deficits. He will also require continued PT intervention upon discharge, to maximize safety and mobility as he transitions back home. [facility] score 21% deficit. Patient is assessed as Moderate complexity (09400) based on the following: History: 83-year-old male transitioning to swing bed level of care for continued antibiotic treatment for UTI. He has had a prolonged hospitalization, and extensive medical history as noted above. Additional complicating factor is patient living independently [place] advanced [place] and [place], with full flight of outdoor stairs and no indoor plumbing. Examination: Functional limitations include diminished balance with Selby balance score placing patient in moderate fall risk category, decreased safety with community distance ambulation, and increased fall risk based on Selby balance scores and history of falls. Presentation: Evolving Assessment: Moderate complexity Goals: Goals X1 week 1. Supine-Sit: Independent (MET) 2. Sit-Supine : Independent(MET) 3. Sit-Stand : Independent(MET) 4. Stand-Sit: Independent(MET) 5. Bed-Chair : Independent with WW (PROGRESSING TOWARD) 6. Chair-Bed : Independent with WW(PROGRESSING TOWARD) 7. Gait : Patient able to ambulate 50 feet with FW W and contact-guard (MET) 8. Stairs : Patient able to manage full flight of stairs with bilateral upper extremity support to rails and supervision only (PROGRESSING TOWARD) NEW GOALS: 1. Patient able to ambulate 300' with 4WW and supervision only. (MET) 2. Improve balance, as indicated by Selby balance score of 40/56 or greater, reflecting clinically significant change and indicating reduced fall risk in the community Plan of Care/Treatment Plan: 1-2x/day, 7 days/week x 1 week. Plan of care has been reviewed with the GRADER PATROL providing the service under Physical Therapy direction. Initiate Physical Therapy intervention for strengthening, bed mobility, transfers, gait, stairs, balance training, use of assistive device. DISCHARGE RECOMMENDATIONS: Patient will likely be transitioning to shelter facility upon DC from swing bed level of care; will benefit from continued PT intervention in that setting to prevent functional decline during prolonged hospitalization, and from resumption of home health services upon DC home TREATMENT CODE/TIME: 30 minutes ([id number])
--- NOTE | 2018-08-09 14:03 | IN_ITS ---
Date of service: 08/09/18 Time of Service: 14:00 PT Notes Date: 08/09/18 Referring Doctor: Sandy Riley PT Orders: PT CONSULT: continue PT on Swing Bed status. Generalized weakness, UTI Precautions: Fall, standard Patient Profile/Admitting Diagnosis: Patient admitted from ER on 08/01/18 for generalized weakness due to UTI, with questionable safety at home. He's participated in skilled PT intervention 1-2x/day for 8 days, with a total of 14 sessions during that time. He's now transitioned to Swing Bed status for continuation of antibiotic treatment. PMHX: Chronic kidney disease, atrial fibrillation status post pacemaker placement, COPD, hypertension Social History/Home Situation: [place] He has a flight of outdoor steps going down an embankment to his home, which he is required to manage to get into the home. He has approximately 12 steps, with bilateral rails. He has housekeepers to come in daily, and a neighbor who checks on him twice a day. He typically ambulates with a wheeled walker. He utilizes a commode within the house, stating that he has an outhouse, which he uses only in the summer months. Equipment Owned/DME: WW, commode Subjective: Patient states that he is feeling well today. Objective: General Observation: Sitting up in chair at initiation of session. He has a Kang catheter in place. Mental Status: A&Ox3 Pain: denies ROM: Right Upper Extremity: WFL Left Upper Extremity: WFL Right Lower Extremity: WFL Left Lower Extremity: WFL Strength: Right Upper Extremity: Shoulder flexion 4+/5. Triceps 4/5. Fructose Loader is strong and equal. Left Upper Extremity: Shoulder flexion 4+/5. Triceps 4/5. Fructose Loader is strong and e qual. Right Lower Extremity: Hip flexion 5/5. Quads 4+/5. Ankle DF 4+/5. Left Lower Extremity: Hip flexion 5/5. Quads 4+/5. Ankle DF 4+/5. Bed Mobility/Transfers: Supine to sit: Independent Sit to supine: Independent Sit to stand: Independent Stand to sit: Independent Bed to chair: Supervision with 4WW. Patient requires assistance for management of catheter. Gait: Patient ambulates 300 feet x2 with 4WW, supervision, full weightbearing. He requires assistance for management of his lines. Balance: Static Sitting: Normal Dynamic Sitting: Normal Static Standing:good Dynamic Standing: good Selby Balance testing shows score of 36/56 (moderate fall risk category; see scanned documents for full test results) Stairs: Patient able to ascend and descend therapeutic stairs (6x4, 4x6) with bilat rails, step to pattern independently, with assistance for management of lines (performed 08/08/18). Special Tests: Mobility Limitations Standardized Measure [facility] AM-PAC 6 clicks Basic Mobility Inpatient Short Form: Raw Score: 22 standardized Score: 53.28 CMS Score: 21% Treatment: Today's session consisted of re-evaluation, followed by instruction in therex program as noted on flowsheet. Patient also performed progressive ambulation for cardiovascular conditioning and safety training. Progress balance retraining activities, as noted on flowsheet. Assessment: Patient is a 83 year old male referred to physical therapy services with the diagnosis of generalized weakness related to UTI, with questionable safety at home. Patient has participated in 14 PT sessions over the past 8 days, and is demonstrating improvements in safety and mobility. He continues to demonstrate deficits in AM-PAC scores, and has a significant deficit on Selby balance testing today, placing him at moderate fall risk. He has medically stabilized, and will be transitioning to swing bed level of care for continued antibiotic treatment. He will benefit from continued PT intervention 1 time per day to prevent deconditioning and address continued balance deficits. He will also require continued PT intervention upon discharge, to maximize safety and mobility as he transitions back home. [facility] score 21% deficit. Patient is assessed as Moderate complexity (87636) based on the following: History: 83-year-old male transitioning to swing bed level of care for continued antibiotic treatment for UTI. He has had a prolonged hospitalization, and extensive medical history as noted above. Additional complicating factor is patient living [place] and [place], with full flight of outdoor stairs and no indoor plumbing. Examination: Functional limitations include diminished balance with Selby balance score placing patient in moderate fall risk category, decreased safety with community distance ambulation, and increased fall risk based on Selby balance scores and history of falls. Presentation: Evolving Assessment: Moderate complexity Goals: Goals X1 week 1. Supine-Sit: Independent (MET) 2. Sit-Supine : Independent(MET) 3. Sit-Stand : Independent(MET) 4. Stand-Sit: Independent(MET) 5. Bed-Chair : Independent with WW (PROGRESSING TOWARD) 6. Chair-Bed : Independent with WW(PROGRESSING TOWARD) 7. Gait : Patient able to ambulate 50 feet with FW W and contact-guard (MET) 8. Stairs : Patient able to manage full flight of stairs with bilateral upper extremity support to rails and supervision only (PROGRESSING TOWARD) NEW GOALS: 1. Patient able to ambulate 300' with 4WW and supervision only. (MET) 2. Improve balance, as indicated by Selby balance score of 40/56 or greater, reflecting clinically significant change and indicating reduced fall risk in the community Plan of Care/Treatment Plan: 1-2x/day, 7 days/week x 1 week. Plan of care has been reviewed with the CRIMINAL DEFENSE ATTORNEY providing the service under Physical Therapy direction. Initiate Physical Therapy intervention for strengthening, bed mobility, transfers, gait, stairs, balance training, use of assistive device. DISCHARGE RECOMMENDATIONS: Patient will likely be transitioning to halfway facility upon DC from swing bed level of care; will benefit from continued PT intervention in that setting to prevent functional decline during prolonged hospitalization, and from resumption of home health services upon DC home TREATMENT CODE/TIME: 30 minutes (56362)
== END 2018-08-09 13:49 | disposition swing bed (61) | DRG 945 ==
LOC: ER 19:03 → MS 19:05
PROVIDERS: Internal Medicine; Admitting Provider Family Medicine; Emergency Provider Emergency Medicine; PCP Family Medicine; Visit Provider Internal Medicine
DX: R53.1 Weakness (principal); N39.0 Urinary tract infection, site not specified; T83.090A Other mechanical complication of cystostomy catheter, initial encounter; R10.30 Lower abdominal pain, unspecified; B96.20 Unspecified Escherichia coli [E. coli] as the cause of diseases classified elsewhere; Z16.12 Extended spectrum beta lactamase (ESBL) resistance; B96.1 Klebsiella pneumoniae [K. pneumoniae] as the cause of diseases classified elsewhere; Z16.11 Resistance to penicillins; K59.09 Other constipation; R19.7 Diarrhea, unspecified; E86.0 Dehydration; T68.XXXA Hypothermia, initial encounter; N18.9 Chronic kidney disease, unspecified; I12.9 Hypertensive chronic kidney disease with stage 1 through stage 4 chronic kidney disease, or unspecified chronic kidney disease; N40.1 Benign prostatic hyperplasia with lower urinary tract symptoms; R33.8 Other retention of urine; Z60.2 Problems related to living alone; R29.6 Repeated falls; Z95.810 Presence of automatic (implantable) cardiac defibrillator; G47.33 Obstructive sleep apnea (adult) (pediatric); J44.9 Chronic obstructive pulmonary disease, unspecified; Z87.891 Personal history of nicotine dependence; I48.91 Unspecified atrial fibrillation; Z79.01 Long term (current) use of anticoagulants; E03.9 Hypothyroidism, unspecified; H40.9 Unspecified glaucoma; Z87.440 Personal history of urinary (tract) infections
CPT/HCPCS: 36415; 51702; 80048; 80053; 83690; 85027; 86803; 87040; 87077; 87340; 87389; 87505; 93005; 94640; 96360; 96361; 97110; 97112; 97162; 97530; 99220; 99221; 99231; 99232; 99233; 99239; 99252; 99285; 99356; 74019; 74176; 80202; 81003; 81015; 83605; 83630; 83735; 84439; 84443; 85025; 85610; 87086; 87186; 87324; 93010; 94660; 99284; G0378; G8978; J2270; J2765; J3490

== ENCOUNTER 2018-08-09 13:49 | Inpatient (IN) | payer MEDICARE, MEDICAID, SELFPAY ==
--- NOTE | 2018-08-09 13:23 | HPE_ITS ---
Date of service: 08/09/18 Time of Service: 13:22 Assessment and Plan (1) UTI (urinary tract infection): Current visit: No Status: Acute Present on admission, associated with a suprapubic catheter[facility] Urine cultures growing ESBL and Klebsiella pneumonia. Continue Meropenem (day #9 of 14 day course). Will remain on swing bed status for duration of treatment. (2) Bladder spasms: Current visit: No Status: Acute Improved. Urology consulted and initiated Myrbetriq, in addition to Tramadol. He will need a prescription for Myrbetriq 50 mg daily. Anticholinergics are contraindicated in this patient due to glaucoma and bowel dysfunction. He will require close blood pressure monitoring, as myrbetriq can cause HTN. (3) Hypertension: Current visit: No Status: Chronic Blood pressures have been within an acceptable range. Continue beta- suzie therapy. Continue to monitor as above. (4) Chronic constipation: Current visit: No Status: Chronic Alternating with diarrhea. C. difficile and fecal leukocytes negative. Continue bowel medications as needed. Avoid imodium. Offer prune juice and PRN bowel regimen. (5) COPD (chronic obstructive pulmonary disease): Current visit: No Status: Chronic Appears quiescent at present. Continue home Spiriva and PRN Duonebs. (6) Atrial fibrillation: Current visit: No Status: Chronic Rate controlled. Continue beta-suzie and Pradaxa. (7) DVT prophylaxis: Current visit: No Status: Acute Continue pradaxa. On PPI for GI prophylaxis. (8) Discharge planning issues: Current visit: No Status: Acute He is a DNR/DNI. He transitions to a swing bed status today to complete a full 14-day course of IV antibiotics for his ESBL E. coli and Klebsiella urinary tract infection. He will continue to work with physical therapy on swing bed status. Care management is working on a safe disposition for when he is ready for discharge home, home with services or shelter facility for rehab. This was discussed with Dr. Jim who is in agreement. History of Present Illness Chief Complaint: Generalized weakness, UTI Narrative: Mr. Ross is an 83 year old man with a prior medical history significant for BPH with urinary retention, s/p suprapubic catheter placement in the past, prior UTIs with a history of multidrug-resistant and ESBL organisms admitted from [facility] Emergency Room on 07/31/18 with a diagnosis of a UTI. He has a prior history of A. fib on anticoagulation, CHF but with prior echo in 2016 showing a normal LVEF, sick sinus syndrome S/P PPM/AICD, PVD, and COPD. The patient also has a history of hypothyroidism, severe diverticulosis, anxiety , and prior EtOH and tobacco use. He presented to the ED on 07/31/18 with complaints of weakness as well as a clogged suprapubic catheter. Workup in the ED was positive for a UTI, with CT scan showing no evidence of hydronephrosis. He did not have any leukocytosis on labs, and while his creatinine was mildly elevated it appeared to be at its former baseline. He was also found to be hypothermic, with a low temperature of 34.9. He was also not significantly hypotensive or tachycardic. His catheter was changed in the ED. He was admitted to the med/surg floor and started on broad spectrum antibiotics with Vanco and Meropenem. His urine culture grew ESBL e-coli and Klebsiella. The Vanco was discontinued. Sensitivities show resistant bacteria. He will need to remain on Meropenem for a full 14 day course. He is currently on day #9. He will transition to swing bed to complete antibiotics. Of note, he also reported low abdominal pain, below the site of the suprapubic catheter and radiating down his urethra. A urology consult was placed. Urology agreed that this may represent bladder spasms and initiated Myrbetriq. Anticholinergics are contraindicated in this patient due of his glaucoma and bowel dysfunction. The patient was previously started on tramadol. He reports improvement in his pain today with this combination. He will need to be monitored for hypertension with the initiation of Myrbetriq. He has a history of atrial fibrillation, his heart rate has been well controlled, he is anticoagulated on Pradaxa. The patient transitions to swing bed level of care today to complete a full 14 day course of IV antibiotics. He will continue PT and OT while on swing bed status. He reports that his low abdominal pain is well controlled with the combination of tramadol and myrbetriq. He reports mild shortness of breath with activity, which he reports is baseline. He coughs occasionally, he denies wheezing. No chest pain/pressure, palpitations, he is eating and drinking without nausea, vomiting or diarrhea. He continues to work with PT. Review of Systems Review of Systems All systems reviewed & are unremarkable except as noted in HPI and below PFSH Social History Smoking/Tobacco Use Status: Former Tobacco Use Meds Home Medications Medication Instructions Recorded Confirmed Type Spiriva with HandiHaler 1 cap INHALATION DAILY 11/08/12 07/31/18 History nitroglycerin [Nitrostat] 0.4 mg SUBLINGUAL Q5 MIN PRN X3 05/27/14 07/31/18 Rx PRN #60 tab potassium chloride [Klor-Con M20] 20 meq PO DAILY AM #30 tabcr 07/18/15 07/31/18 Rx Azopt 1 drp OU DAILY drp 09/30/15 07/31/18 History latanoprost 1 drp OU HS drp 09/30/15 07/31/18 History acetaminophen [Tylenol] 650 mg PO Q4H PRN PRN tab 11/25/15 07/31/18 Rx mirtazapine [Remeron] 15 mg PO HS 03/04/16 07/31/18 History multivitamin with minerals 1 tab PO DAILY 03/04/16 07/31/18 History [Multiple Vitamin-Minerals] levothyroxine 75 mcg PO DAILY@0600 tab 04/13/16 07/31/18 Rx Flovent HFA 2 puff INHALATION BID inh 05/30/16 07/31/18 Rx furosemide 40 mg PO DAILY 10/22/16 07/31/18 History cholecalciferol (vitamin D3) 1 tab PO Q30D 08/01/17 07/31/18 History albuterol sulfate 3 ml IN Q4H PRN PRN 10/22/17 07/31/18 History metoprolol tartrate 75 mg PO BID #270 tab-cap 11/09/17 07/31/18 Rx Fluticasone Propionate [24 Hour 9.9 ml NS BID 12/30/17 07/31/18 History Allergy] bisacodyl 10 mg MA DAILY 12/30/17 07/31/18 History pantoprazole 40 mg PO BID #0 02/28/18 07/31/18 Rx Pradaxa 150 mg PO BID #0 cap 03/02/18 07/31/18 Rx alprazolam 0.25 mg PO BID #60 tablet 03/02/18 07/31/18 Rx ursodiol [Actigall] 300 mg PO BID cap 03/02/18 07/31/18 Rx Allergies Allergy/AdvReac Type Severity Reaction Status Date / Time banana Allergy Mild Skin Rash Unverified 07/31/18 13:30 formoterol fumarate AdvReac Intermediate Ineffective Unverified 07/31/18 13:30 [From Dulera] per Pt mometasone furoate AdvReac Intermediate Ineffective Unverified 07/31/18 13:30 [From Dulera] per Pt hydrocodone AdvReac Unknown Dizziness/L Unverified 07/31/18 13:30 ightheade Exam Narrative Exam Narrative: General: very pleasant Elderly male; sitting up in the chair, in NAD. HEENT: normocephalic, atraumatic, pupils equal and round, mucous membranes moist. Neck: supple, no JVD. Heart: irregularly irregular, no murmur appreciated. Lungs: respirations even and unlabored, lung sounds clear throughout. GI: Suprapubic catheter in place and draining. Normoactive bowel sounds throughout. Abdomen soft, tender on palpation below the insertion site of the suprapubic catheter. Extremities: trace edema BLE's.
--- NOTE | 2018-08-09 13:58 | IN_ITS ---
Date of service: 08/09/18 Time of Service: 14:00 PT Notes Date: 08/09/18 Referring Doctor: Sandy Riley PT Orders: PT CONSULT: continue PT on Swing Bed status. Generalized weakness, UTI Precautions: Fall, standard Patient Profile/Admitting Diagnosis: Patient admitted from ER on 08/01/18 for generalized weakness due to UTI, with questionable safety at home. He's participated in skilled PT intervention 1-2x/day for 8 days, with a total of 14 sessions during that time. He's now transitioned to Swing Bed status for continuation of antibiotic treatment. PMHX: Chronic kidney disease, atrial fibrillation status post pacemaker placement, COPD, hypertension Social History/Home Situation: [place] He has a flight of outdoor steps going down an embankment to his home, which he is required to manage to get into the home. He has approximately 12 steps, with bilateral rails. He has housekeepers to come in daily, and a neighbor who checks on him twice a day. He typically ambulates with a wheeled walker. He utilizes a commode within the house, stating that he has an outhouse, which he uses only in the summer months. Equipment Owned/DME: WW, commode Subjective: Patient states that he is feeling well today. Objective: General Observation: Sitting up in chair at initiation of session. He has a Kang catheter in place. Mental Status: A&Ox3 Pain: denies ROM: Right Upper Extremity: WFL Left Upper Extremity: WFL Right Lower Extremity: WFL Left Lower Extremity: WFL Strength: Right Upper Extremity: Shoulder flexion 4+/5. Triceps 4/5. Facilities Operations Technician is strong and equal. Left Upper Extremity: Shoulder flexion 4+/5. Triceps 4/5. Facilities Operations Technician is strong and equal. Right Lower Extremity: Hip flexion 5/5. Quads 4+/5. Ankle DF 4+/5. Left Lower Extremity: Hip flexion 5/5. Quads 4+/5. Ankle DF 4+/5. Bed Mobility/Transfers: Supine to sit: Independent Sit to supine: Independent Sit to stand: Independent Stand to sit: Independent Bed to chair: Supervision with 4WW. Patient requires assistance for management of catheter. Gait: Patient ambulates 300 feet x2 with 4WW, supervision, full weightbearing. He requires assistance for management of his lines. Balance: Static Sitting: Normal Dynamic Sitting: Normal Static Standing:good Dynamic Standing: good Selby Balance testing shows score of 36/56 (moderate fall risk category; see scanned documents for full test results) Stairs: Patient able to ascend and descend therapeutic stairs (6x4, 4x6) with bilat rails, step to pattern independently, with assistance for management of lines (performed 08/08/18). Special Tests: Mobility Limitations Standardized Measure [facility] AM-PAC 6 clicks Basic Mobility Inpatient Short Form: Raw Score: 22 standardized Score: 53.28 CMS Score: 21% Treatment: Today's session consisted of re-evaluation, followed by instruction in therex program as noted on flowsheet. Patient also performed progressive ambulation for cardiovascular conditioning and safety training. Progress balance retraining activities, as noted on flowsheet. Assessment: Patient is a 83 year old male referred to physical therapy services with the diagnosis of generalized weakness related to UTI, with questionable safety at home. Patient has participated in 14 PT sessions over the past 8 days, and is demonstrating improvements in safety and mobility. He continues to demonstrate deficits in AM-PAC scores, and has a significant deficit on Selby balance testing today, placing him at moderate fall risk. He has medically stabilized, and will be transitioning to swing bed level of care for continued antibiotic treatment. He will benefit from continued PT intervention 1 time per day to prevent deconditioning and address continued balance deficits. He will also require continued PT intervention upon discharge, to maximize safety and mobility as he transitions back home. [facility] score 21% deficit. Patient is assessed as Moderate complexity (83203) based on the following: History: 83-year-old male transitioning to swing bed level of care for continued antibiotic treatment for UTI. He has had a prolonged hospitalization, and extensive medical history as noted above. Additional complicating factor is patient living independently [place] and [place], with full flight of outdoor stairs and no indoor plumbing. Examination: Functional limitations include diminished balance with Selby balance score placing patient in moderate fall risk category, decreased safety with community distance ambulation, and increased fall risk based on Selby balance scores and history of falls. Presentation: Evolving Assessment: Moderate complexity Goals: Goals X1 week 1. Supine-Sit: Independent (MET) 2. Sit-Supine : Independent(MET) 3. Sit-Stand : Independent(MET) 4. Stand-Sit: Independent(MET) 5. Bed-Chair : Independent with WW (PROGRESSING TOWARD) 6. Chair-Bed : Independent with WW(PROGRESSING TOWARD) 7. Gait : Patient able to ambulate 50 feet with FW W and contact-guard (MET) 8. Stairs : Patient able to manage full flight of stairs with bilateral upper extremity support to rails and supervision only (PROGRESSING TOWARD) NEW GOALS: 1. Patient able to ambulate 300' with 4WW and supervision only. (MET) 2. Improve balance, as indicated by Selby balance score of 40/56 or greater, reflecting clinically significant change and indicating reduced fall risk in the community Plan of Care/Treatment Plan: 1-2x/day, 7 days/week x 1 week. Plan of care has been reviewed with the STREET LIGHT REPAIRER HELPER providing the service under Physical Therapy direction. Initiate Physical Therapy intervention for strengthening, bed mobility, transfers, gait, stairs, balance training, use of assistive device. DISCHARGE RECOMMENDATIONS: Patient will likely be transitioning to residential facility upon DC from swing bed level of care; will benefit from continued PT intervention in that setting to prevent functional decline during prolonged hospitalization, and from resumption of home health services upon DC home TREATMENT CODE/TIME: 30 minutes (15753)
--- NOTE | 2018-08-09 14:31 | NUR.NOTE ---
Pt admitted to swingbed. Pt is alert and oriented times 3. See Acute chart for details on 0645am- present charting details. . Nursing Note:
--- NOTE | 2018-08-09 15:13 | PHARADMIT ---
Addendum entered by Agustin Espinal III 08/11/18 13:27: SWING BED PATIENT ON DAY 11 MEROPENEM. VS-OK No Labs No Changes Original Note: Pharmacy Note Subjective Objective VS-okay no labs Assessment meropenem continues (day 03/18) mirabegron ordered daily for bladder spasms furosemide was on hold prior to swing, when I copied the ordered to the swingbed account it was ordered as active/no longer on hold. I let the WRISTER know so she could continue to hold if wanted Plan continue to watch VS and for med changes PT CHANGED TO SWINGBED FOR ABX the following info is from inpt. account prior to swing: PRICILA ETIENNE Male : 1935 Emr# [id number] 08/01/18 11:54 - Pharmacy Review by Angely Bailey Acct Num: [id number] : 1935 Patient Age: 83 Addendum entered by Yuridia Skaggs 08/04/18 17:26: Vanco dc'd Meropenem...renally adjusted continues Vit D order is pending....meant to call PCP for dose clarification, did not have time. There is a note that states he takes it the first Wednesday of the month which would be 08/08/18, but dose is likely not correct. Discharge to [facility] soon, not sure they can do Q12h Anbx Micro has Klebsiella and ESBL growing in urine, needs Meropenem Original Note: Addendum entered by Agustin Espinal III 08/03/18 11:24: Pharmacy Note Subjective Diarrhea improved. UTI from supra-pubic catheter? Objective VS-OK SCr-1.29 Lyts,H&H,Plts,WBC-OK, Wgt-up 85.6 kg Assessment IV Fluids dc'd, Vancomycin, Meropenem continues Plan Trough today at 1500 Original Note: Addendum entered by Angely Bailey 08/02/18 16:52: Pharmacy Note Subjective Objective VS-okay SCr-1.39(up) Assessment waiting for clarification on vitamin D dose vanco and meropenem continue (day2) no med changes so far today blood cultures no growth @ 24 hours urine culture growing gram negative rods Plan vanco trough ordered for 1700 tomorrow continue to watch for micro results Original Note: Admission Pharmacy Clinical Review weakness with UTI Code Status DNR/DNI Current Weight 81.9 kg Renally Cleared and Narrow Therapeutic Index Meds Crcl ~47.00 mL/min current meds okay QTc Value / Action Taken QTc 478 has mirtazapine ordered BP Control, Fever BP 128/84 afebrile/temp was 34.9 yesterday evening Electrolytes reviewed Na 146 Cl 108 DVT Prophylaxis pt is on dabigatran Opiate Usage / Scheduled Bowel Regimen Ordered prn/scheduled and prn has chronic constipation per morning report Plt/SCr for Heparin / Enoxaparin plt 162 SCr 1.25 INR for Warfarin n/a H/H stable, WBC/Bands h/h 14.3/44.2 WBC 4.95 Antibiotic appropriateness vanco and meropenem as pt has history of ESBL E.coli Cultures and Sensitivities urine culture prelim growing gram negative rods blood cultures pending Surgical ABX d/c within 24 hr n/a DM control / Insulin Dosing BG 100 none Heart Failure (Check EF%) (JULISSA's, B-Block, Diuretics) metoprolol, furosemide (home med) IV to PO Switch n/a Home Meds Reviewed -multiple forms of vitamin D increases risk of toxicity -tiotropium may enhance the ulcerogenic effects of potassium -separate admin of cephalexin and levothyroxine from multivitamin Home Meds Not Ordered cephalexin(other abx ordered), flovent(mometasone substituted), furosemide, potassium chloride, Comments
[2018-08-09] MEDS: traMADol 50 MG TAB PO (15:14)
[2018-08-09 16:21] VITALS: BP 126/86; PULSE 73; RESP 18; TEMP 36.7; O2SAT 98
--- NOTE | 2018-08-09 18:46 | CM.SWINGPC ---
- If Service Date Differs Date of service: 08/09/18 Time of Service: 03:15 Swingbed Plan of Care Plan of care: SWING BED PROGRAM ACTIVITIES/DISCHARGE PLAN OF CARE ACTIVITIES PLAN Date: 08/09/18 Identified Need: Urine cultures growing ESBL and Klebsiella pneumonia. Intervention/Plan: Continue Meropenem (day #9 of 14 day course). Will remain on swing bed status for duration of treatment. Per MD. Initials: NATHALIE DISCHARGE PLAN Date: 08/09/18 Identified Need: Comprehensive Discharge Plan Intervention/Plan: Undetermined disposition-Dino will continue to work with PT/OT, he will either discharge home with resumption of community based supports or transfer to SNF for continued rehabiliation; dependent on continued monitoring of discharge needs to be coordinated by care management. Initials: NATHALIE
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
--- NOTE | 2018-08-09 19:10 | NUR.NOTE ---
Nursing Note: Report received from TOREY Gu. Patient is in stable condition, currently sleeping in bed, respirations are even and unlabored, no signs of pain or discomfort noted, bed is in the low and locked position, side rails up x2, call light within reach.
[2018-08-09] MEDS: Polyethylene Glycol 3350 17 GM PACKET PO (20:14)
[2018-08-09] MEDS: MEROPENEM 1 GM in Normal Saline 100 ML IVPB (20:14)
[2018-08-09] MEDS: Lactobacillus Acidophilus CAP 1 CAP PO (20:15)
[2018-08-09] MEDS: Fluticasone NASAL SPRAY 16 GM BTL NS (20:15)
[2018-08-09] MEDS: Ursodiol 300 MG CAP PO (20:15)
[2018-08-09] MEDS: Pantoprazole 40 MG TABCR PO (20:15)
[2018-08-09] MEDS: Metoprolol 25 MG TAB 75 MG PO (20:15)
[2018-08-09] MEDS: ALPRAZolam 0.25 MG TAB PO (20:15)
[2018-08-09] MEDS: Mometasone 220 MCG 14 DOSE INHALER 2 PUFF IH (20:16)
[2018-08-09] MEDS: Mirtazapine 15 MG TAB PO (22:02)
[2018-08-09] MEDS: Latanoprost 0.005% 2.5 ML BTL OU (22:02)
[2018-08-10] MEDS: Levothyroxine 75 MCG TAB PO (06:03)
--- NOTE | 2018-08-10 06:48 | NUR.NOTE ---
Nursing Note: Pt. assisted to bedside chair, drink filled. No further needs at this time.
[2018-08-10] MEDS: Mometasone 220 MCG 14 DOSE INHALER 2 PUFF IH ×2 (07:40→21:16)
[2018-08-10 07:45] VITALS: BP 132/74; PULSE 73; RESP 18; TEMP 36.1; O2SAT 97
[2018-08-10] MEDS: Lactobacillus Acidophilus CAP 1 CAP PO ×3 (09:25→21:13)
[2018-08-10] MEDS: Polyethylene Glycol 3350 17 GM PACKET PO (09:25)
[2018-08-10] MEDS: Ursodiol 300 MG CAP PO ×2 (09:25→21:15)
[2018-08-10] MEDS: Normal Saline Flush 10 ML SYR IVP (09:25)
[2018-08-10] MEDS: Pantoprazole 40 MG TABCR PO ×2 (09:25→21:15)
[2018-08-10] MEDS: Metoprolol 25 MG TAB 75 MG PO ×2 (09:25→21:14)
[2018-08-10] MEDS: ALPRAZolam 0.25 MG TAB PO ×2 (09:25→20:50)
[2018-08-10] MEDS: Multivitamin w/Minerals TAB 1 TAB PO (09:26)
[2018-08-10] MEDS: Mirabegron 50 MG TABCR PO (09:26)
[2018-08-10] MEDS: Furosemide 40 MG TAB PO (09:28)
[2018-08-10] MEDS: Fluticasone NASAL SPRAY 16 GM BTL NS ×2 (09:28→21:25)
[2018-08-10] MEDS: MEROPENEM 1 GM in Normal Saline 100 ML IVPB ×2 (09:29→21:13)
[2018-08-10] MEDS: Normal Saline 500 ML 30 ML IV (09:29)
--- NOTE | 2018-08-10 10:26 | OT.INIE ---
Occupational Therapy Notes Inpatient Occupational Therapy Evaluation Date: 08/10/18 Referring Doctor:Sandy Riley NP OT Orders: consult PT on Swing bed status. Generalized weaknes, UTI. Precautions: Fall, Contact precautions PATIENT PROFILE/ADMITTING DIAGNOSIS: Pt is an 83 year old male who was admitted to [facility] from ER on 08/01/18 for generalized weakness due to UTI, with questionable safety at home. He is now transitioned under Swing bed status. Past Medical History: Chronic kidney disease, atrial fibrillation status post pacemaker placement, COPD, hypertension Social History/Home Situation: Pt lives alone in [place]. He reports that he has home health who comes in 1x per day to help with ADLs and neighbors who check on him on a regular basis. He reports that his bathroom is an outhouse and that he has a commode that HH assists with when they come. HH assists with bathing he is max (A) for (B) LE and he does not drive. He has no hot water in his home only cold water he reports that he heats the water up when he needs to. HE does not perform his own grocery shopping his neighbor does this for him. He has stairs to get down a small hill into his house and stairs inside but reports HH will not let him go up the stairs due to being dizzy and increased falls. Equipment owned/DME: WW, commode SUBJECTIVE: Pt was sitting in chair when OT arrived, he was agreeable to OT session. OBJECTIVE: General Observation: Pleasant, answers questions appropriately Mental Status: A&Ox3 Pain: no c/o pain ROM: RUE AROM WNL L UE AROM WNL STRENGTH: RUE 4/5 throughout LUE 4/5 throughout BALANCE: Static sitting Normal Dynamic Sitting Normal SPECIAL TESTS: Daily Activity Limitations Standardized Measure [facility] AM -PAC ?6 clicks? Daily Activity Inpatient Short Form: Raw score: 18 Standardized score: 38.66 CMS score: 46.65% CMS modifier: CK INFORMED CONSENT/EDUCATION: Pt instructed in purpose of OT Consult and plan of care. ASSESSMENT: Patient is a 83-year-old male referred to occupational therapy services with diagnosis of for generalized weakness due to UTI, with questionable safety at home. He is now transitioned under Swing bed status. Patient was transitioned to Swing bed rehabilitation for antibiotic tx. OT will provide skilled services to pt to work on increased (I) in his dressing routine as he states that this is the one thing he does (I) at 4am on most days. OT recommends that pt go to SNF when medically d/c per MD or if he does return home he needs increased HH services. Pt reports that he just wants to go home and that he has support and great neighbors. OT feels that pt may benefit from meals on wheels for food. AMPAC score 18, CMS score 46.65% Patient is assessed as a Low 66112 complexity based on the following: History: See Above Examination: See Above Presentation:Evolving Decision Making: AMPAC Score 18, CMS score 46.65% GOALS Goals x1 week 1. Dressing- Pt will be able to perform dressing routine (I) with modified techniques and adaptive equipment as needed in the seated position. 2. Bathing- Pt will be able to perform LE bathing routine with long handled sponge with ideal technique. PLAN OF CARE/TREATMENT PLAN: 1x/day, 5 days/ week x 1week Initiate Occupational Therapy Services for bathing, dressing, grooming, toileting, eating, transfer training. DISCHARGE RECOMMENDATIONS OT recommends that pt go to SNF due to safety of pts home or increased home health services in pts home to assist with care. TREATMENT TIME/MINUTES/CODES 18756, 32 minutes (08:00) Rahel Rivera OTR/[facility]
--- NOTE | 2018-08-10 10:37 | OTIE_ITS ---
Occupational Therapy Notes Inpatient Occupational Therapy Evaluation Date: 08/10/18 Referring Doctor:Sandy Riley NP OT Orders: consult PT on Swing bed status. Generalized weaknes, UTI. Precautions: Fall, Contact precautions PATIENT PROFILE/ADMITTING DIAGNOSIS: Pt is an 83 year old male who was admitted to [facility] from ER on 08/01/18 for generalized weakness due to UTI, with questionable safety at home. He is now transitioned under Swing bed status. Past Medical History: Chronic kidney disease, atrial fibrillation status post pacemaker placement, COPD, hypertension Social History/Home Situation: Pt lives alone in [place]. He reports that he has home health who comes in 1x per day to help with ADLs and neighbors who check on him on a regular basis. He reports that his bathroom is an outhouse and that he has a commode that HH assists with when they come. HH assists with bathing he is max (A) for (B) LE and he does not drive. He has no hot water in his home only cold water he reports that he heats the water up when he needs to. HE does not perform his own grocery shopping his neighbor does this for him. He has stairs to get down a small hill into his house and stairs inside but reports HH will not let him go up the stairs due to being dizzy and increased falls. Equipment owned/DME: WW, commode SUBJECTIVE: Pt was sitting in chair when OT arrived, he was agreeable to OT session. OBJECTIVE: General Observation: Pleasant, answers questions appropriately Mental Status: A&Ox3 Pain: no c/o pain ROM: RUE AROM WNL L UE AROM WNL STRENGTH: RUE 4/5 throughout LUE 4/5 throughout BALANCE: Static sitting Normal Dynamic Sitting Normal SPECIAL TESTS: Daily Activity Limitations Standardized Measure [facility] AM -PAC ?6 clicks? Daily Activity Inpatient Short Form: Raw score: 18 Standardized score: 38.66 CMS score: 46.65% CMS modifier: CK INFORMED CONSENT/EDUCATION: Pt instructed in purpose of OT Consult and plan of care. ASSESSMENT: Patient is a 83-year-old male referred to occupational therapy services with diagnosis of for generalized weakness due to UTI, with questionable safety at home. He is now transitioned under Swing bed status. Patient was transitioned to Swing bed rehabilitation for antibiotic tx. OT will provide skilled services to pt to work on increased (I) in his dressing routine as he states that this is the one thing he does (I) at 4am on most days. OT recommends that pt go to SNF when medically d/c per MD or if he does return home he needs increased HH services. Pt reports that he just wants to go home and that he has support and great neighbors. OT feels that pt may benefit from meals on wheels for food. AMPAC score 18, CMS score 46.65% Patient is assessed as a Low 21664 complexity based on the following: History: See Above Examination: See Above Presentation:Evolving Decision Making: AMPAC Score 18, CMS score 46.65% GOALS Goals x1 week 1. Dressing- Pt will be able to perform dressing routine (I) with modified techniques and adaptive equipment as needed in the seated position. 2. Bathing- Pt will be able to perform LE bathing routine with long handled sponge with ideal technique. PLAN OF CARE/TREATMENT PLAN: 1x/day, 5 days/ week x 1week Initiate Occupational Therapy Services for bathing, dressing, grooming, toileting, eating, transfer training. DISCHARGE RECOMMENDATIONS OT recommends that pt go to SNF due to safety of pts home or increased home health services in pts home to assist with care. TREATMENT TIME/MINUTES/CODES 20286, 32 minutes (08:00) Rahel Rivera OTR/[facility]
--- NOTE | 2018-08-10 11:21 | PT.INTREAT ---
Date of service: 08/10/18 Time of Service: 11:21 PT Notes 08/10/18 SUBJECTIVE: Bill stating he is doing well today. Agreeable to PT treatment. OBJECTIVE: Seated in chair upon entering room. TRANSFERS: Sit to stand: I Stand to sit: I GAIT: Device: 4WW Weight bearing: AT Assist: S Distance: 300'x2 Deviation: 1 sit rest break due to SOB. Therex: Small ROCK balance activities performed, CGA when performing tandem stance and small ROCK with trunk rotations. He requires min A for cone tapping x 5 each. Pt also performs UE/LE strengthening today. His left knee gives out on him when performing squats which required mod A for recovery. See flow sheet for all exercises performed. ASSESSMENT: Progressing well with PT efforts. He is tolerating increase in ambulation distance and is tolerating static balance activities well. Requires increase external support with dynamic balance activities. PLAN: Continue current POC progressing toward's established goals. Treatment time: 30 minutes [id number] Nimco Gardner, FAVIO
[2018-08-10 11:37] VITALS: BP 116/69; PULSE 70; RESP 18; TEMP 36.1; O2SAT 96
[2018-08-10 15:48] VITALS: BP 143/87; PULSE 72; RESP 17; TEMP 35.9; O2SAT 97
[2018-08-10] MEDS: Mirtazapine 15 MG TAB PO (21:23)
[2018-08-10 22:53] VITALS: BP 122/73; PULSE 69; RESP 20; TEMP 36.5; O2SAT 94
[2018-08-11] MEDS: Levothyroxine 75 MCG TAB PO (05:20)
[2018-08-11 07:47] VITALS: BP 152/80; PULSE 57; RESP 18; TEMP 36.3; O2SAT 94
[2018-08-11] MEDS: Normal Saline Flush 10 ML SYR IVP ×2 (08:32→19:42)
[2018-08-11] MEDS: MEROPENEM 1 GM in Normal Saline 100 ML IVPB ×2 (08:32→19:42)
[2018-08-11] MEDS: Pantoprazole 40 MG TABCR PO ×2 (08:32→19:43)
[2018-08-11] MEDS: Mometasone 220 MCG 14 DOSE INHALER 2 PUFF IH ×2 (09:28→19:48)
[2018-08-11] MEDS: Lactobacillus Acidophilus CAP 1 CAP PO ×3 (10:31→19:43)
[2018-08-11] MEDS: Metoprolol 25 MG TAB 75 MG PO ×2 (10:31→19:43)
[2018-08-11] MEDS: Mirabegron 50 MG TABCR PO (10:31)
[2018-08-11] MEDS: Ursodiol 300 MG CAP PO ×2 (10:31→19:43)
[2018-08-11] MEDS: Polyethylene Glycol 3350 17 GM PACKET PO (10:33)
[2018-08-11] MEDS: Multivitamin w/Minerals TAB 1 TAB PO (10:33)
[2018-08-11] MEDS: ALPRAZolam 0.25 MG TAB PO ×2 (10:33→19:43)
[2018-08-11] MEDS: Furosemide 40 MG TAB PO (10:33)
[2018-08-11] MEDS: Fluticasone NASAL SPRAY 16 GM BTL NS ×2 (10:33→19:48)
--- NOTE | 2018-08-11 11:02 | OT.INTREAT ---
Date of service: 08/11/18 Time of Service: 09:30 Occupational Therapy Notes Occupational Therapy Inpatient Treatment Note Date: 08/11/18 PRECAUTIONS: Contact, Fall SUBJECTIVE: Pt was sitting in chair when OT arrived. He jokes that people have been in and out of my room all morning. He is agreeable to OT session. OBJECTIVE: PAIN:no c/o pain FUNCTIONAL MOBILITY Sit-stand: 4WW, S Stand-sit: 4WW, S DRESSING: Sitting in chair Upper Extremity: (I) Lower Extremity: OT educated and trained pt in use of dressing hook, sock aid and tin roller hot mill for LE dressing including don and doffing (B) socks, and hospital pants. He required min-mod vc and was able post training able to don and doff (B) socks (I) without SOB. For pants this is tasking on pts breathing because he has to bend down to get his legs in. OT educated pt on donning pants in the supine position. Pt preferred to not try this at todays session and reports that if he didn't have to bend down this would be a lot easier for him. ASSESSMENT: Pt was able to demonstrate increased (I) with dressing routine with use of adaptive equipment. He was able to tolerate this well and demonstrated good technique with min-mod vc required throughout session. Pt would benefit from continues skilled OT intervention for progression of (I) in ADLs/IADLS and adapative equipment for bathing routine. PLAN: OT will continue to progress pts (I) in ADLs/IADLs with adaptive equipment as needed. TREATMENT CODES/TIME: [id number], 27 minutes (09:30) CHERRY Gayle/[facility]
--- NOTE | 2018-08-11 11:13 | OTTR_ITS ---
Date of service: 08/11/18 Time of Service: 09:30 Occupational Therapy Notes Occupational Therapy Inpatient Treatment Note Date: 08/11/18 PRECAUTIONS: Contact, Fall SUBJECTIVE: Pt was sitting in chair when OT arrived. He jokes that people have been in and out of my room all morning. He is agreeable to OT session. OBJECTIVE: PAIN:no c/o pain FUNCTIONAL MOBILITY Sit-stand: 4WW, S Stand-sit: 4WW, S DRESSING: Sitting in chair Upper Extremity: (I) Lower Extremity: OT educated and trained pt in use of dressing hook, sock aid a nd internal controls manager for LE dressing including don and doffing (B) socks, and hospital pants. He required min-mod vc and was able post training able to don and doff (B) socks (I) without SOB. For pants this is tasking on pts breathing because he has to bend down to get his legs in. OT educated pt on donning pants in the supine position. Pt preferred to not try this at todays session and reports that if he didn't have to bend down this would be a lot easier for him. ASSESSMENT: Pt was able to demonstrate increased (I) with dressing routine with use of adaptive equipment. He was able to tolerate this well and demonstrated good technique with min-mod vc required throughout session. Pt would benefit from continues skilled OT intervention for progression of (I) in ADLs/IADLS and adapative equipment for bathing routine. PLAN: OT will continue to progress pts (I) in ADLs/IADLs with adaptive equipment as needed. TREATMENT CODES/TIME: [id number], 27 minutes (09:30) CHERRY Gayle/[facility]
--- NOTE | 2018-08-11 11:44 | PT.INTREAT ---
Date of service: 08/11/18 Time of Service: 11:44 PT Notes Inpatient Physical Therapy Treatment Note [facility] Date: 08/11/18 PRECAUTIONS: Fall, Contact SUBJECTIVE: Bill is agreeable to PT today. OBJECTIVE: PAIN: No c/o pain BED MOBILITY/TRANSFERS Sit-stand: I Stand-sit: I GAIT Assistive Device: 4WW Weight bearing: Full Assist: S Distance: 300' x2 Deviation: Seated rest x1 THEREX: Patient completed a resisted UE and LE strengthening program, as per flow sheet. He was able to tolerate a progression in resistance, modifications made to weights and reps are noted on flow sheet. NEURO RE-ED: Patient completed a static balance retraining program, as per flow sheet. He was able to tolerate the addition of small ROCK with cervical rotation and with trunk rotations, without UE support, with CGA and gait belt for safety. ASSESSMENT: Patient tolerated session well without complaint. He was able to tolerate a progression in ther ex as well as in his balance retraining program. Patient would benefit from continued PT intervention for prevention of deconditioning. PLAN: Continue with PT's POC TREATMENT CODE/TIME: 30 minutes; [id number], [id number]
[2018-08-11 15:34] VITALS: BP 131/78; PULSE 78; RESP 18; TEMP 36.1; O2SAT 99
[2018-08-11] MEDS: Mirtazapine 15 MG TAB PO (23:41)
[2018-08-12 03:32] VITALS: BP 112/65; PULSE 70; RESP 16; TEMP 36.5; O2SAT 94
[2018-08-12] MEDS: Levothyroxine 75 MCG TAB PO (06:04)
[2018-08-12 07:36] VITALS: BP 123/74; PULSE 66; RESP 20; TEMP 36.4; O2SAT 96
[2018-08-12] MEDS: Fluticasone NASAL SPRAY 16 GM BTL NS ×2 (10:30→19:43)
[2018-08-12] MEDS: MEROPENEM 1 GM in Normal Saline 100 ML IVPB ×2 (10:30→19:38)
[2018-08-12] MEDS: Lactobacillus Acidophilus CAP 1 CAP PO ×3 (10:31→19:41)
[2018-08-12] MEDS: Furosemide 40 MG TAB PO (10:31)
[2018-08-12] MEDS: Mirabegron 50 MG TABCR PO (10:31)
[2018-08-12] MEDS: Ursodiol 300 MG CAP PO ×2 (10:31→19:41)
[2018-08-12] MEDS: Metoprolol 25 MG TAB 75 MG PO ×2 (10:31→19:38)
[2018-08-12] MEDS: ALPRAZolam 0.25 MG TAB PO ×2 (10:31→19:38)
[2018-08-12] MEDS: Pantoprazole 40 MG TABCR PO ×2 (10:31→19:41)
[2018-08-12] MEDS: Multivitamin w/Minerals TAB 1 TAB PO (10:32)
--- NOTE | 2018-08-12 11:54 | PT.INTREAT ---
Date of service: 08/12/18 Time of Service: 11:54 PT Notes Inpatient Physical Therapy Treatment Note [facility] Date: 08/12/18 PRECAUTIONS: Fall, Contact SUBJECTIVE: Brenden states that he is feeling good this morning. He expresses that he would like to return to home following completion of his antibiotics. OBJECTIVE: PAIN: No c/o pain BED MOBILITY/TRANSFERS Sit-stand: I Stand-sit: I GAIT Assistive Device: 4WW Weight bearing: Full Assist: S Distance: 300' x2 THEREX: Patient completed a resisted UE and LE strengthening program in a seated position, as per flow sheet. NEURO RE-ED: Patient completed a static and dynamic balance retraining program, as per flow sheet. Patient tolerated a progression in his program, progressing from performing most exercises with eyes open, to all balance exercises with eyes closed, still only requiring CGA and a gait belt for safety. ASSESSMENT: Patient tolerated session well without complaint. Patient was able to tolerate a progression in balance retraining program, continuing to require only CGA and gait belt for safety. PLAN: Continue with PT's POC TREATMENT CODE/TIME: 30 minutes; [id number], [id number]
[2018-08-12 16:38] VITALS: BP 128/67; PULSE 74; RESP 18; TEMP 37.1; O2SAT 97
--- NOTE | 2018-08-12 17:30 | PDOC.CMACT ---
Care Management Activity Note Dino continues to enjoy visiting with his friends when they come to see him, as well as staff. He watches TV and likes to tell stories. Dino has decided to return home from [facility] when his IV ABX are completed. He reports knowing what others wish for him, but reports ultimately, it is his decision and he wants to be home at this time. CM faxed notification to [facility] as Dino will resume supports including SLAB CONDITIONER SUPERVISOR, and will likely have new orders for RN/PT/OT as well. CM notified Ed, Dino's neighbor who reported he would plan on picking Dino up at 1400 on 08/15/18.
--- NOTE | 2018-08-12 17:38 | CMACTNOTE_ITS ---
Care Management Activity Note Dino continues to enjoy visiting with his friends when they come to see him, as well as staff. He watches TV and likes to tell stories. Dino has decided to return home from [facility] when his IV ABX are completed. He reports knowing what others wish for him, but reports ultimately, it is his decision and he wants to be home at this time. CM faxed notification to [facility] as Dino will resume supports including AURICULAR DETOXIFICATION SPECIALIST, and will likely have new orders for RN/PT/OT as well. CM notified Ed, Dino's neighbor who reported he would plan on picking Dino up at 1400 on 08/15/18.
[2018-08-12] MEDS: Polyethylene Glycol 3350 17 GM PACKET PO (19:37)
[2018-08-12] MEDS: Mometasone 220 MCG 14 DOSE INHALER 2 PUFF IH (19:42)
[2018-08-12] MEDS: Mirtazapine 15 MG TAB PO (22:35)
[2018-08-12 23:55] VITALS: BP 111/70; PULSE 74; RESP 20; TEMP 37.1; O2SAT 92
[2018-08-13] MEDS: Levothyroxine 75 MCG TAB PO (05:58)
[2018-08-13] MEDS: Mometasone 220 MCG 14 DOSE INHALER 2 PUFF IH ×2 (07:31→21:14)
[2018-08-13] MEDS: Fluticasone NASAL SPRAY 16 GM BTL NS ×2 (08:32→21:16)
[2018-08-13] MEDS: Lactobacillus Acidophilus CAP 1 CAP PO ×3 (08:34→21:17)
[2018-08-13] MEDS: MEROPENEM 1 GM in Normal Saline 100 ML IVPB ×2 (08:34→21:14)
[2018-08-13] MEDS: Ursodiol 300 MG CAP PO ×2 (08:34→21:16)
[2018-08-13] MEDS: Mirabegron 50 MG TABCR PO (08:34)
[2018-08-13] MEDS: ALPRAZolam 0.25 MG TAB PO ×2 (08:34→21:16)
[2018-08-13] MEDS: Metoprolol 25 MG TAB 75 MG PO ×2 (08:34→21:16)
[2018-08-13] MEDS: Multivitamin w/Minerals TAB 1 TAB PO (08:35)
[2018-08-13] MEDS: Furosemide 40 MG TAB PO (08:35)
[2018-08-13] MEDS: Pantoprazole 40 MG TABCR PO ×2 (08:35→21:16)
--- NOTE | 2018-08-13 11:30 | PT.INTREAT ---
Date of service: 08/13/18 Time of Service: 09:35 PT Notes Inpatient Physical Therapy Treatment Note [facility] Date: 08/13/18 PRECAUTIONS: Fall and contact SUBJECTIVE: Indicated he likes to get out of room and move. Enjoys walking. Finds tandem stance activities difficult. OBJECTIVE: PAIN: Indicated he was noticing pain in his low back with balance activities today. Indicated this is a common problem for him. Has dealt with back pain for years. BED MOBILITY/TRANSFERS Supine-sit: I Sit-supine: I Sit-stand: I Stand-sit: I GAIT Assistive Device: FWW Weight bearing: Full Assist: SBA Distance: 300ft x 2 THEREX: See flow sheets for ther exercises performed today for strengthening of bilateral UE/ LEs. Worked on dynamic standing balance with head movements upon command, arm movements and cone taps with each foot. Static standing with feet in tandem was difficult today due to back pain complaints, only able to hold this position for about 45 seconds today rather than 1 minutes as he did yesterday. ASSESSMENT: Tolerated today's exercises and ambulation well, despite complaints of low back pain. Gives very good effort. PLAN: Continue with current POC with focus on strengthening of bilateral UE/ LEs and improved ADL mobility. TREATMENT CODE/TIME: 9:35 to 10:10 (35'), 54714 x 1 and 12117 x 1 Christina Ulloa TEACHER VISUALLY IMPAIRED
--- NOTE | 2018-08-13 11:42 | PTTR_ITS ---
Date of service: 08/13/18 Time of Service: 09:35 PT Notes Inpatient Physical Therapy Treatment Note [facility] Date: 08/13/18 PRECAUTIONS: Fall and contact SUBJECTIVE: Indicated he likes to get out of room and move. Enjoys walking. Finds tandem stance activities difficult. OBJECTIVE: PAIN: Indicated he was noticing pain in his low back with balance activities today. Indicated this is a common problem for him. Has dealt with back pain for years. BED MOBILITY/TRANSFERS Supine-sit: I Sit-supine: I Sit-stand: I Stand-sit: I GAIT Assistive Device: FWW Weight bearing: Full Assist: SBA Distance: 300ft x 2 THEREX: See flow sheets for ther exercises performed today for strengthening of bilateral UE/ LEs. Worked on dynamic standing balance with head movements upon command, arm movements and cone taps with each foot. Static standing with feet in tandem was difficult today due to back pain complaints, only able to hold this position for about 45 seconds today rather than 1 minutes as he did yesterday. ASSESSMENT: Tolerated today's exercises and ambulation well, despite complaints of low back pain. Gives very good effort. PLAN: Continue with current POC with focus on strengthening of bilateral UE/ LEs and improved ADL mobility. TREATMENT CODE/TIME: 9:35 to 10:10 (35'), 27060 x 1 and 55546 x 1 Christina Ulloa MAT PUNCHER
[2018-08-13 16:09] VITALS: BP 119/76; PULSE 63; RESP 19; TEMP 36.7; O2SAT 96
[2018-08-13] MEDS: Mirtazapine 15 MG TAB PO (21:16)
[2018-08-13] MEDS: Normal Saline Flush 10 ML SYR IVP (21:18)
[2018-08-13] MEDS: Polyethylene Glycol 3350 17 GM PACKET PO (21:19)
[2018-08-13 23:15] VITALS: BP 106/56; PULSE 58; RESP 19; TEMP 37.2; O2SAT 97
[2018-08-14] MEDS: Levothyroxine 75 MCG TAB PO (06:26)
[2018-08-14] MEDS: Pantoprazole 40 MG TABCR PO ×2 (06:26→21:14)
[2018-08-14] MEDS: Mometasone 220 MCG 14 DOSE INHALER 2 PUFF IH ×2 (07:30→21:11)
[2018-08-14 07:50] VITALS: BP 123/69; PULSE 64; RESP 17; TEMP 35.9; O2SAT 96
[2018-08-14] MEDS: MEROPENEM 1 GM in Normal Saline 100 ML IVPB ×2 (09:02→21:08)
[2018-08-14] MEDS: Fluticasone NASAL SPRAY 16 GM BTL NS ×2 (09:02→21:11)
[2018-08-14] MEDS: Mirabegron 50 MG TABCR PO (09:03)
[2018-08-14] MEDS: Ursodiol 300 MG CAP PO ×2 (09:03→21:14)
[2018-08-14] MEDS: ALPRAZolam 0.25 MG TAB PO ×2 (09:03→21:14)
[2018-08-14] MEDS: Metoprolol 25 MG TAB 75 MG PO ×2 (09:03→21:14)
[2018-08-14] MEDS: Multivitamin w/Minerals TAB 1 TAB PO (09:03)
[2018-08-14] MEDS: Furosemide 40 MG TAB PO (09:03)
[2018-08-14] MEDS: Lactobacillus Acidophilus CAP 1 CAP PO ×3 (09:03→21:13)
--- NOTE | 2018-08-14 13:15 | PT.INTREAT ---
Date of service: 08/14/18 Time of Service: 10:25 PT Notes Inpatient Physical Therapy Treatment Note [facility] Date: 08/14/18 PRECAUTIONS: Contact and Fall SUBJECTIVE: Indicated he plans to go home tomorrow. Asked if we have any theraband that he could use at home to continue his exercises. Requested to know where he can buy some hand weights like the ones he is using here. OBJECTIVE: PAIN: No reports of pain, but did warn patient to be careful about exercising his left shoulder too much with past history of some rotator cuff issues, per his report. BED MOBILITY/TRANSFERS Sit-stand: Independent Stand-sit: Independent GAIT Assistive Device: 4WW Weight bearinWW Assist: SBA Distance: 300ft x 2 THEREX: Performed HR, LAQs, seated hip flexion, seated hip abd/adduction and UE shoudler horizontal abduction, shoulder flexion and reviewed how to utilized theraband to continue this exercises at home when discharged. Indicated he has used the banding in the past with HHPT but broke his bands. Was issued red and green band to have at home. ASSESSMENT: Tolerated today's PT session well with good effort given. PLAN: Continue with current plan of care with focus on strengthening of bilateral UE /LEs and ADL function. TREATMENT CODE/TIME: :25-10:55 (30'), 57600 x 1 and 20812 x 1 Christina Ulloa HEEL PAINTER
--- NOTE | 2018-08-14 13:27 | PTTR_ITS ---
Date of service: 08/14/18 Time of Service: 10:25 PT Notes Inpatient Physical Therapy Treatment Note [facility] Date: 08/14/18 PRECAUTIONS: Contact and Fall SUBJECTIVE: Indicated he plans to go home tomorrow. Asked if we have any the raband that he could use at home to continue his exercises. Requested to know where he can buy some hand weights like the ones he is using here. OBJECTIVE: PAIN: No reports of pain, but did warn patient to be careful about exercising his left shoulder too much with past history of some rotator cuff issues, per his report. BED MOBILITY/TRANSFERS Sit-stand: Independent Stand-sit: Independent GAIT Assistive Device: 4WW Weight bearinWW Assist: SBA Distance: 300ft x 2 THEREX: Performed HR, LAQs, seated hip flexion, seated hip abd/adduction and UE shoudler horizontal abduction, shoulder flexion and reviewed how to utilized theraband to continue this exercises at home when discharged. Indicated he has used the banding in the past with HHPT but broke his bands. Was issued red and green band to have at home. ASSESSMENT: Tolerated today's PT session well with good effort given. PLAN: Continue with current plan of care with focus on strengthening of bilateral UE /LEs and ADL function. TREATMENT CODE/TIME: :25-10:55 (30'), 74048 x 1 and 12529 x 1 Christina Ulloa AIR POLLUTION COMPLIANCE INSPECTOR
[2018-08-14 15:56] VITALS: BP 166/69; PULSE 74; RESP 18; TEMP 36.5; O2SAT 98
[2018-08-14] MEDS: Normal Saline 500 ML 50 ML IV (21:09)
[2018-08-14] MEDS: Polyethylene Glycol 3350 17 GM PACKET PO (21:10)
[2018-08-14] MEDS: Latanoprost 0.005% 2.5 ML BTL OU (21:12)
[2018-08-14] MEDS: Normal Saline Flush 10 ML SYR IVP (21:13)
[2018-08-14] MEDS: Mirtazapine 15 MG TAB PO (21:18)
[2018-08-14 22:45] VITALS: BP 109/63; PULSE 65; RESP 16; TEMP 36.8; O2SAT 100
[2018-08-15] MEDS: Levothyroxine 75 MCG TAB PO (06:44)
[2018-08-15] MEDS: Pantoprazole 40 MG TABCR PO (06:44)
[2018-08-15 07:29] LABS: Abs Immature Grans 0.02 k/cumm (0.0-0.09); Absolute Basophil Count 0.04 k/cumm (0.0-0.2); Absolute Eosinophil Count 0.17 k/cumm (0.0-0.7); Absolute Lymphocyte Count 1.81 k/cumm (1.2-3.4); Basophils % 0.7; Eosinophils % 2.9; HCT 44.1 % (40.0-50.0); Immature Grans % 0.3; Lymphocytes % 30.5; Mean Corp. HGB Concentration 31.7 g/dL (32.0-36.0); Mean Corpuscular Hemoglobin 29.4 pg (27.0-33.0); Mean Corpuscular Volume 92.6 fL (80-95); Monocytes % 8.4; Neutrophils % 57.2; Platelet Count 214 x1000/uL (130-400); RBC 4.76 m/cumm (4.50-6.00); RBC Distribution Width 16.6 % (11.8-14.1); White Blood Cell Count 5.94 k/cumm (4.4-10.8)
[2018-08-15] MEDS: MEROPENEM 1 GM in Normal Saline 100 ML IVPB (07:33)
[2018-08-15] MEDS: Normal Saline Flush 10 ML SYR IVP (07:33)
[2018-08-15] MEDS: Mirabegron 50 MG TABCR PO (07:34)
[2018-08-15] MEDS: Lactobacillus Acidophilus CAP 1 CAP PO ×2 (07:34→13:02)
[2018-08-15] MEDS: Furosemide 40 MG TAB PO (07:34)
[2018-08-15] MEDS: ALPRAZolam 0.25 MG TAB PO (07:34)
[2018-08-15] MEDS: Ursodiol 300 MG CAP PO (07:34)
[2018-08-15 07:35] VITALS: BP 120/71; PULSE 70; RESP 18; TEMP 36.2; O2SAT 96
[2018-08-15] MEDS: Multivitamin w/Minerals TAB 1 TAB PO (07:35)
[2018-08-15 07:44] LABS: ALT 13 U/L (12-78); AST 24 U/L (15-37); Alkaline Phosphatase 125 U/L (46-116); Anion Gap 5.4 mmol/L (3-11); BUN 22 mg/dL (7-18); Bilirubin, Total 0.6 mg/dL (0.2-1.0); CO2 31.6 mmol/L (21.0-32.0); CREATININE 1.53 mg/dL (0.70-1.30); Calcium 9.4 mg/dL (8.5-10.1); Chloride 104 mmol/L (98-107); Estimated GFR 43.79 (mL/min/1.73m2); Glucose 110 mg/dL (70-100); Potassium 4.4 mmol/L (3.5-5.1); Sodium 141 mmol/L (136-145); Total Protein 7.2 g/dL (6.4-8.2)
[2018-08-15] MEDS: Fluticasone NASAL SPRAY 16 GM BTL NS (08:10)
[2018-08-15] MEDS: Metoprolol 25 MG TAB 75 MG PO (08:11)
[2018-08-15] MEDS: Mometasone 220 MCG 14 DOSE INHALER 2 PUFF IH (10:23)
--- NOTE | 2018-08-15 11:32 | INDS_ITS ---
Date of service: 08/15/18 Time of Service: 10:30 PT Notes Date: 08/15/18 Referring Doctor: Sandy Riley PT Orders: PT CONSULT: continue PT on Swing Bed status. Generalized weakness, UTI Precautions: Fall, standard Treatment dates: 08/09/2018?08/15/2018 Patient Profile/Admitting Diagnosis: Patient admitted from ER on 08/01/18 for generalized weakness due to UTI, with questionable safety at home. He participated in skilled PT intervention 1-2x/day for 8 days, with a total of 14 sessions during his acute care stay, then transitionedto Swing Bed status for continuation of antibiotic treatment. At that point he participated in an additional 7 sessions over the course of 7 days, with continued improvements in mobility and activity tolerance. PMHX: Chronic kidney disease, atrial fibrillation status post pacemaker placement, COPD, hypertension Social History/Home Situation: [place] He has a flight of outdoor steps going down an embankment to his home, which he is required to manage to get into the home. He has approximately 12 steps, with bilateral rails. He has housekeepers to come in daily, and a neighbor who checks on him twice a day. He typically ambulates with a wheeled walker. He utilizes a commode within the house, stating that he has an outhouse, which he uses only in the summer months. Equipment Owned/DME: WW, commode Subjective: Patient states that he is feeling well today. He is agreeable to PT session. Objective: General Observation: Sitting up in chair at initiation of session. He has a Kang catheter in place. Mental Status: A&Ox3 Pain: denies ROM: Right Upper Extremity: WFL Left Upper Extremity: WFL Right Lower Extremity: WFL Left Lower Extremity: WFL Strength: Right Upper Extremity: Shoulder flexion 4+/5. Triceps 4/5. Smog Technician is strong and equal. Left Upper Extremity: Shoulder flexion 4+/5. Triceps 4/5. Smog Technician is strong and equal. Right Lower Extremity: Hip flexion 5/5. Quads 4+/5. Ankle DF 4+/5. Left Lower Extremity: Hip flexion 5/5. Quads 4+/5. Ankle DF 4+/5. Bed Mobility/Transfers: Supine to sit: Independent Sit to supine: Independent Sit to stand: Independent Stand to sit: Independent Bed to chair: Supervision with 4WW. Patient requires assistance for management of catheter. Gait: Patient ambulates 300 feet with 4WW, supervision, full weightbearing. He requires assistance for management of his lines. Balance: Static Sitting: Normal Dynamic Sitting: Normal Static Standing:good Dynamic Standing: good Selby Balance testing shows score of 35/56 (moderate fall risk category; see scanned documents for full test results) Stairs: Patient able to ascend and descend therapeutic stairs (6x4, 4x6) with bilat rails, step to pattern independently, with assistance for management of lines . Treatment: Today's session consisted of re-evaluation, followed by instruction in therex program as noted on flowsheet. Patient also performed progressive ambulation for cardiovascular conditioning and safety training. Progress balance retraining activities, as noted on flowsheet. Assessment: Patient is a 83 year old male referred to physical therapy services with the diagnosis of generalized weakness related to UTI, with questionable safety at home. Patient has participated in 7 PT sessions over the past 7 days, and is demonstrating improvements in safety and mobility. He continues to demonstrate a significant deficit on Selby balance testing today, placing him at moderate fall risk. He has medically stabilized, and will be returning home later today. He will require continued PT intervention via home health services, to maximize safety and mobility as he transitions back home. Goals: Goals X1 week 1. Supine-Sit: Independent (MET) 2. Sit-Supine : Independent(MET) 3. Sit-Stand : Independent(MET) 4. Stand-Sit: Independent(MET) 5. Bed-Chair : Independent with WW (PROGRESSING TOWARD) 6. Chair-Bed : Independent with WW(PROGRESSING TOWARD) 7. Gait : Patient able to ambulate 50 feet with FW W and contact-guard (MET) 8. Stairs : Patient able to manage full flight of stairs with bilateral upper extremity support to rails and supervision only (MET) NEW GOALS: 1. Patient able to ambulate 300' with 4WW and supervision only. (MET) 2. Improve balance, as indicated by Selby balance score of 40/56 or greater, reflecting clinically significant change and indicating reduced fall risk in the community (not met, with continued balance deficits) Plan of Care/Treatment Plan: DC from PT services in rehab setting. DISCHARGE RECOMMENDATIONS: Home, with home health PT TREATMENT CODE/TIME: 25 minutes ([id number], [id number])
--- NOTE | 2018-08-15 12:16 | OT.INDS ---
Date of service: 08/15/18 Time of Service: 09:05 Occupational Therapy Notes Occupational Therapy Inpatient Discharge Summary Date: 08/10/18 Dates of Service: 08/10/18-08/15/18 Referring Doctor:Sandy Riley NP OT Orders: consult PT on Swing bed status. Generalized weaknes, UTI. Precautions: Fall, Contact precautions PATIENT PROFILE/ADMITTING DIAGNOSIS: Pt is an 83 year old male who was admitted to [facility] from ER on 08/01/18 for generalized weakness due to UTI, with questionable safety at home. He is now transitioned under Swing bed status. Past Medical History: Chronic kidney disease, atrial fibrillation status post pacemaker placement, COPD, hypertension Social History/Home Situation: Pt lives alone in [place]. He has home health who comes in 1x per day to help with ADLs and neighbors who check on him on a regular basis. He reports that his bathroom is an outhouse and that he has a commode that HH assists with when they come. HH assists with bathing he is max (A) for (B) LE and he does not drive. He has no hot water in his home only cold water he reports that he heats the water up when he needs to. HE does not perform his own grocery shopping his neighbor does this for him. He has stairs to get down a small hill into his house and stairs inside but reports HH will not let him go up the stairs due to being dizzy and increased falls. Equipment owned/DME: WW, commode SUBJECTIVE: Pt was sitting in chair when OT arrived, he was excited to report to OT that he still had his adapative equipment tools but reports he hasn't used them since last session. OBJECTIVE: Mental Status: A&Ox3 Pain: no c/o pain ROM: RUE AROM WNL L UE AROM WNL STRENGTH: RUE 4+/5 throughout LUE 4+/5 throughout Self Care Training [id number]: Pt was educated in use of long handled sponge for LE bathing to decrease bending forward. Pt was able to demonstrate ideal technique for LE bathing. Pt then performed (B) donning and doffing of socks and pants which he was able to perform with ideal technique and min vc initially while in the seated position. Pt is able to perform his bathing and dressing routine in the sitting position. His dressing routine is (I) with adaptive equipment. BALANCE: Static sitting Normal Dynamic Sitting Normal SPECIAL TESTS: Daily Activity Limitations Standardized Measure [facility] AM -PAC ?6 clicks? Daily Activity Inpatient Short Form: Raw score: 18 Standardized score: 38.66 CMS score: 46.65% CMS modifier: CK ASSESSMENT: Patient is a 83-year-old male referred to occupational therapy services with diagnosis of for generalized weakness due to UTI, with questionable safety at home. He was transitioned under Swing bed status. Patient was transitioned to Swing bed rehabilitation for antibiotic tx. Pt has met all OT goals he was seen for 3 OT sessions and has demonstrated increased (I) in ADL routines. OT does recommend that pt go to SNF for safety of pts home or increased HH services in pts home to (A) with care as pt will require (A) if he returns home. Pt reports that he plans to return home tomorrow. GOALS Goals x1 week 1. Dressing- Pt will be able to perform dressing routine (I) with modified techniques and adaptive equipment as needed in the seated position. (MET) 2. Bathing- Pt will be able to perform LE bathing routine with long handled sponge with ideal technique. (MET) PLAN OF CARE/TREATMENT PLAN: Discharge from skilled OT services. DISCHARGE RECOMMENDATIONS OT recommends that pt go to SNF due to safety of pts home or increased home health services in pts home to assist with care. TREATMENT TIME/MINUTES/CODES [id number], 13 minutes (09:05) [facility]
--- NOTE | 2018-08-15 12:22 | OTDS_ITS ---
Date of service: 08/15/18 Time of Service: 09:05 Occupational Therapy Notes Occupational Therapy Inpatient Discharge Summary Date: 08/10/18 Dates of Service: 08/10/18-08/15/18 Referring Doctor:Sandy Riley NP OT Orders: consult PT on Swing bed status. Generalized weaknes, UTI. Precautions: Fall, Contact precautions PATIENT PROFILE/ADMITTING DIAGNOSIS: Pt is an 83 year old male who was admitted to [facility] from ER on 08/01/18 for generalized weakness due to UTI, with questionable safety at home. He is now transitioned under Swing bed status. Past Medical History: Chronic kidney disease, atrial fibrillation status post pacemaker placement, COPD, hypertension Social History/Home Situation: Pt lives alone in [place]. He has home health who comes in 1x per day to help with ADLs and neighbors who check on him on a regular basis. He reports that his bathroom is an outhouse and that he has a com mode that HH assists with when they come. HH assists with bathing he is max (A) for (B) LE and he does not drive. He has no hot water in his home only cold water he reports that he heats the water up when he needs to. HE does not perform his own grocery shopping his neighbor does this for him. He has stairs to get down a small hill into his house and stairs inside but reports HH will not let him go up the stairs due to being dizzy and increased falls. Equipment owned/DME: WW, commode SUBJECTIVE: Pt was sitting in chair when OT arrived, he was excited to report to OT that he still had his adapative equipment tools but reports he hasn't used them since last session. OBJECTIVE: Mental Status: A&Ox3 Pain: no c/o pain ROM: RUE AROM WNL L UE AROM WNL STRENGTH: RUE 4+/5 throughout LUE 4+/5 throughout Self Care Training [id number]: Pt was educated in use of long handled sponge for LE bathing to decrease bending forward. Pt was able to demonstrate ideal technique for LE bathing. Pt then performed (B) donning and doffing of socks and pants which he was able to perform with ideal technique and min vc initially while in the seated position. Pt is able to perform his bathing and dressing routine in the sitting position. His dressing routine is (I) with adaptive equipment. BALANCE: Static sitting Normal Dynamic Sitting Normal SPECIAL TESTS: Daily Activity Limitations Standardized Measure [facility] AM -PAC ?6 clicks? Daily Activity Inpatient Short Form: Raw score: 18 Standardized score: 38.66 CMS score: 46.65% CMS modifier: CK ASSESSMENT: Patient is a 83-year-old male referred to occupational therapy services with diagnosis of for generalized weakness due to UTI, with questionable safety at home. He was transitioned under Swing bed status. Patient was transitioned to Swing bed rehabilitation for antibiotic tx. Pt has met all OT goals he was seen for 3 OT sessions and has demonstrated increased (I) in ADL routines. OT does recommend that pt go to SNF for safety of pts home or increased HH services in pts home to (A) with care as pt will require (A) if he returns home. Pt reports that he plans to return home tomorrow. GOALS Goals x1 week 1. Dressing- Pt will be able to perform dressing routine (I) with modified techniques and adaptive equipment as needed in the seated position. (MET) 2. Bathing- Pt will be able to perform LE bathing routine with long handled sponge with ideal technique. (MET) PLAN OF CARE/TREATMENT PLAN: Discharge from skilled OT services. DISCHARGE RECOMMENDATIONS OT recommends that pt go to SNF due to safety of pts home or increased home health services in pts home to assist with care. TREATMENT TIME/MINUTES/CODES [id number], 13 minutes (09:05) [facility]
--- NOTE | 2018-08-15 13:54 | DSE_ITS ---
Date of service: 08/15/18 Time of Service: 13:52 DS: Diagnosis Discharge Diagnosis (1) UTI (urinary tract infection): Status: Acute (2) Bladder spasms: Status: Acute (3) Chronic constipation: Status: Chronic Discharge Plan Discharge Details Reason For Visit: UTI,WEAKNESS Admit Date/Time: 08/09/18 13:49 Admit Provider: Cheryl Jim Attending Provider: Cheryl Jim Primary Care Provider: Lorena Chong Hospital Course Hospital Course: CC: Weakness, Clogged Catheter HPI: 83 year old man with a prior medical history significant for BPH with urinary retention, s/p suprapubic catheter placement in the past, prior UTIs with a history of multidrug-resistant and ESBL organisms admitted from [facility] Emergency Room diagnosis of a UTI. Mr. Ross has a prior history of AFib on anticoagulation, CHF but with prior echo in 2015 showing a normal LVEF, sick sinus syndrome S/P PPM/AICD, PVD, and COPD. The patient also has a history of hypothyroidism, severe diverticulosis, anxiety, and prior ETOH and tobacco use. A previous course of choledocholithiasis led to an ER[place] [facility] The patient lives alone in a basement apartment by choice. He presented to the ED with complaints of weakness as well as a clogged suprapubic catheter. Workup in the ED was positive for a UTI, with CT scan showing no evidence of hydronephrosis. He did not have any leukocytosis on labs, and while his creatinine was mildly elevated it appeared to be at its former baseline. He was however found to be hypothermic, with a low temperature of 34.9. He was also not significantly hypotensive or tachycardic. The patient underwent a catheter change in the ED. Upon admission his antibiotic regimen was broadened, and his culture eventually returned with ESBL E. Coli and Klebsiella. His antibiotic regimen was narrowed and he was changed to Swing Bed status until completion of a 14 day course of Meropenem. Mr. Ross also complained of abdominal pain, initial LUQ, then suprapubic, both now resolved. He remains afebrile and symptom free at time of discharge. Hospital Course: (1) Abdominal pain: Complaint of LUQ pain that was reproducible on exam, has occured in the past, and responded to GI cocktail. No evidence of anemia or active GI bleed. Initiated BID PPI initially, then oral Ranitidine. CT of the a/p was repeated and without pathology. Prior KUB and CT also without significant intra-abdominal pathology to explain patient's symptoms. Lipase, LFTs, and WBC all checked and normal. Pain relieved with above measures. Highly doubt cardiac origin. Doubt ischemic colitis as initially diarrhea was resolved and previously not bloody, with normal lactate and without evidence of acidosis by labs. Subsequent pain was suprapubic just below the insertion site of his suprapubic catheter, described as radiating down his urethra. Responded to Mirabegron. (2) Generalized weakness: May have a chronic component to this, but potentially based on evidence of UTI. Vastly improved. Worked well with PT - will need to resume home PT/OT at time of discharge. (3) UTI (urinary tract infection): Evidence of infection and pyuria by urinalysis, in patient with chronic indwelling suprapubic catheter as well as a prior history of ESBL E. Coli and multidrug resistant infections. Urine Culture with ESBL E.Coli and Klebsiella. Finished a 14 day course of Meropenem. Blood Culture remained negative. Suprapubic cath was changed at time of admission in the ED. (4) Chronic constipation: Previously with noted diarrhea and multiple bowel movements, now improved. C. difficile and fecal leukocytes negative. KUB and repeat CT also negative. (5) Diarrhea: As above. (6) COPD (chronic obstructive pulmonary disease): Continue home Spiriva and prn DuoNeb's. Was quiescent during hospital course. (7) Hypertension: Continue on beta-suzie therapy. (8) Atrial fibrillation: Continue beta-suzie. Also on anticoagulation with Dabigatran. Appears rate controlled. Home Meds and New Rx's Prescriptions: New ranitidine HCl 15 mg/mL Syrup 150 mg PO BID Qty: 60 RF: 0 acidophilus-pectin, citrus 25 million cell -100 mg Tablet 1 cap PO TID Qty: 90 RF: 0 Myrbetriq 50 mg Tablet Extended Release 24 Hr 50 mg PO DAILY Qty: 30 RF: 0 Continued latanoprost 2.5 ML drops 1 drp OU HS RF: 0 Azopt 5 ML drops,suspension 1 drp OU DAILY RF: 0 metoprolol tartrate 50 MG tablet 75 mg PO BID Qty: 270 RF: 3 Spiriva with HandiHaler 18 MCG capsule, w/inhalation device 1 cap Inhalation DAILY RF: 0 nitroglycerin [Nitrostat] 0.4 MG tablet, sublingual 0.4 mg Sublingual Q5 MIN PRN X3 PRNQty: 60 RF: 0 potassium chloride [Klor-Con M20] 20 MEQ tablet,ER particles/crystals 20 meq PO DAILY AM Qty: 30 RF: 0 acetaminophen [Tylenol] 325 MG tablet 650 mg PO Q4H PRN PRNRF: 0 multivitamin with minerals [Multiple Vitamin-Minerals] 1 EACH tablet 1 tab PO DAILY RF: 0 mirtazapine [Remeron] 15 MG tablet 15 mg PO HS RF: 0 levothyroxine 75 MCG tablet 75 mcg PO DAILY@0600 RF: 0 cholecalciferol (vitamin D3) 1,000 UNITS tablet 1 tab PO Q30D RF: 0 bisacodyl 10 MG suppository 10 mg MA DAILY RF: 0 Fluticasone Propionate [24 Hour Allergy] 9.9 ML [place].Susp 9.9 ml NS BID RF: 0 Flovent HFA 120 PUFF HFA aerosol inhaler 2 puff Inhalation BID RF: 0 furosemide 20 MG tablet 40 mg PO DAILY RF: 0 albuterol sulfate 2.5 MG/3 ML solution for nebulization 3 ml IN Q4H PRN PRNRF: 0 pantoprazole 40 MG tablet,delayed release (DR/EC) 40 mg PO BID Qty: 0 RF: 0 ursodiol [Actigall] 300 MG capsule 300 mg PO BID RF: 0 Pradaxa 75 MG capsule 150 mg PO BID Qty: 0 RF: 0 alprazolam 0.25 MG tablet 0.25 mg PO BID Qty: 60 RF: 0 Discharge Instructions Additional Instructions: Please see your primary care physician within 2 weeks. Stand Alone Forms: Nursing Discharge Form Referrals: Lorena Chong [Primary Care Provider] - 08/22/18 11:45 am (Dr Fagan) Activity:: As per Physical Therapy. Activity:: No Strenuous Activity Equipment/Supplies:: No Equipment Needed Diet:: Low Sodium DS: Data Vitals/I&O Vitals and I&O: Vital Signs Temperature 36.2 C L 08/15/18 07:35 Temperature Source Tympanic 08/15/18 07:35 Pulse 70 08/15/18 07:35 Pulse Rhythm Regular 08/15/18 09:09 Respiratory Rate 18 08/15/18 07:35 Respiratory Effort 08/15/18 09:09 Respiratory Depth Normal 08/15/18 09:09 Respiratory Pattern Normal 08/15/18 09:09 Blood Pressure 120/71 08/15/18 07:35 Pulse Oximetry 96 08/15/18 07:35 Oxygen Delivery Method Room Air 08/15/18 07:35 Oxygen Flow Rate 0 08/15/18 07:35 Pain Level 3 08/15/18 07:35 Intake & Output 08/14/18 08/15/18 08/15/18 23:59 11:59 23:59 Intake Total 1250 / 1830 696.667 / 1056.667 360 / 1056.667 Output Total 1550 / 2500 1850 / 1850 Balance -300 / -670 -1153.333 / -793.333 360 / -793.333 Weight 84.5 kg Intake: IV 160 / 260 456.667 / 456.667 Oral 1090 / 1570 240 / 600 360 / 600 Output: Urine 1550 / 2500 1850 / 1850 Other: Urine Color Yellow Yellow Urine Appearance Clear Clear Stool Size Moderate Moderate Stool Characteristics Formed Formed Brown Brown Completed studies during hospitalization [Text1]: EXAM: XR Chest, 2 Views EXAM DATE/TIME: 07/10/2018 1:44 PM CLINICAL HISTORY: 83 years old, male; Signs and symptoms; Cough and other: Focal left sided cp; Patient HX: Cough, focal left sided cp TECHNIQUE: XR of the chest, 2 views. COMPARISON: CR XR CHEST 2V PA LATERAL 03/30/2018 12:32 PM FINDINGS: Tubes, catheters and devices: Stable transvenous pacemaker leads Lungs: Hyperexpanded lung antonio consistent with COPD. No focal consolidation. Pleural space: Unremarkable. No pleural effusion. No pneumothorax. Heart/Mediastinum: Cardiomegaly Bones/joints: [place] is seen in the soft tissues of the left shoulder and neck. This was present on the prior study. Osseous structures are stable IMPRESSION: 1. Hyperexpanded lung antonio consistent with COPD. 2. No focal consolidation. Exam(s) 07/[address]:CT renal colic wo SYMPTOMS/DIAGNOSIS: RT ABD PAIN, SUPRAPUBIC CATHETER NONCONTRAST CT OF THE ABDOMEN AND PELVIS: Pacemaker leads are seen. The lung bases show minimal dependent changes. The patient is status post cholecystectomy. The liver, spleen, adrenals and kidneys are unremarkable. No renal calculi or hydronephrosis is seen. A suprapubic catheter is in place. The prostate is enlarged. The pancreas appears somewhat atrophic. The aorta shows calcification but is normal in diameter. The appendix is normal. There is extensive diverticulosis of the descending and sigmoid colon but no evidence of diverticulitis. There is no small bowel dilatation. Degenerative changes are seen in the spine. IMPRESSION: Suprapubic catheter. No evidence of hydronephrosis. Severe diverticulosis. EXAM: XR Abdomen, 2 Views EXAM DATE/TIME: 08/03/2018 3:38 PM CLINICAL HISTORY: 83 years old, male; Signs and symptoms; Abdominal tenderness and bloating TECHNIQUE: Frontal view of the abdomen/pelvis with upright view of the abdomen. COMPARISON: CR ABDOMEN FLAT PLATE 07/28/2017 9:53 AM FINDINGS: Lower thorax: Partially visualized cardiac pacer wires. Gastrointestinal tract: Nonobstructive bowel gas pattern. Intraperitoneal space: Normal. No free air. Bones/joints: Mild levoscoliosis of the lumbar spine. No acute fracture or dislocation. IMPRESSION: No acute findings. Exam(s) a CT:CT abdomen & pelvis wo SYMPTOM/DIAGNOSIS: ABDOMINAL PAIN, BLOATING S/P ERCP, SPHINCTEROTOMY ABDOMEN AND PELVIC CT; 08/04/18 CT examination of the abdomen and pelvis was performed without contrast administration. There are small bilateral pleural effusions which were not present on previous CT of 07/31/18. The patient has reportedly had recent ERCP and sphincterotomy with stone extraction from the biliary tract. There is gas in the biliary tract. No biliary dilatation. No focal hepatic abnormalities seen by noncontrast criteria. Multiple small splenic calcifications noted. The pancreas is grossly unremarkable in appearance. Mildly enlarged portal nodes noted which are nonspecific. Adrenals and kidneys are unremarkable except for probable mild renal cortical atrophy bilaterally. Abdominal aorta is of normal diameter. No significant abdominal wall hernia seen, although there are small fat containing inguinal hernias. Suprapubic urinary bladder catheter is present and the bladder has collapsed. Appendix is normal. There is marked colonic diverticulosis without evidence of diverticulitis. CONCLUSION: Bilateral pleural effusions which are new since the previous examination. No other acute findings Labs on day of discharge: Labs from last 24 hours 08/15/18 08/15/18 07:15 07:15 WBC 5.94 RBC 4.76 Hgb 14.0 Hct 44.1 MCV 92.6 MCH 29.4 MCHC 31.7 L RDW 16.6 H Plt Count 214 MPV 10.0 Immature Gran % 0.3 Neutrophils % 57.2 Lymphocytes % 30.5 Monocytes % 8.4 Eosinophils % 2.9 Basophils % 0.7 Absolute Neutrophils 3.40 Absolute Lymphocytes 1.81 Absolute Monocytes 0.50 Absolute Eosinophils 0.17 Absolute Basophils 0.04 Sodium 141 Potassium 4.4 Chloride 104 Carbon Dioxide 31.6 Anion Gap 5.4 BUN 22 H Creatinine 1.53 H Estimated GFR/1.73 m2 43.79 Glucose 110 H Calcium 9.4 Total Bilirubin 0.6 AST 24 ALT 13 Alkaline Phosphatase 125 H Total Protein 7.2 Albumin 3.0 L PFSH Medical History Atrial fibrillation Chronic obstructive lung disease Diverticulosis of large intestine without diverticulitis Essential hypertension Glaucoma Insomnia Polyp of colon Spinal stenosis of lumbar region Tachycardia-bradycardia Surgical History Colonoscopy - MAC Pacemaker Social History Smoking and Tabacco status: Former Tobacco Use
--- NOTE | 2018-08-15 14:27 | PDOC.HHF2F ---
1. Encounter Date and Reason I certify that PRICILA ETIENNE was seen by Harshil Regalado on 08/15/18 and that I had a [id number] encounter with this patient that meets the physician face to face encounter requirements. 2. Clinical Findings Supporting Skilled Need and Homebound Status I certify that home health services are medically necessary, include either intermittent correction and/or physical/speech therapy, and that this patient is homebound in that absences from the home require considerable and taxing effort and are infrequent or of short duration, or are attributable to the need to receive medical care. [X] (a) Attached documentation from encounter provides clinical findings supporting skilled need and homebound status (including what assistance patient requires to leave the home). The encounter with the patient was in whole, or in part, for the following medical condition, which is the primary reason for home health care: UTI,WEAKNESS Mcfp: Physical Therapy/Occupational Therapy: Resume home PT/OT Speech Therapy: Homebound: 3. Certification and Authentication I certify that I composed the above information based on my clinical judgement relating to this patient's medical condition and, if applicable, clinical findings communicated to me by the NPP or inpatient physician who performed the Home Health Referral. All further orders will be obtained through (Community Based Physician - PCP)
--- NOTE | 2018-08-15 18:27 | PDOC.CMDIS ---
LACE Index Scoring Tool - Questions: Length of Stay (in days): 14 or more Acuity (Admit via E.D.?): Yes Comorbidities: Chronic Pulmonary Disease E.D. Visits: 14 - Answers: Total Score: 16 Risk of Readmission: High Risk Care Management Discharge Reason for Hospitalization: SWB1 for IV ABX Discharge Plan: Brenden will resume home based supports; RN and [employer] SALESPERSON with an addition of PT/OT and resumption of CFC supports. He will follow up with his PCP and plan of care. CM notified ED of discharge planning and faxed notification to [facility]. Brenden will transport via private vehicle with his friend. Patient/Family Education Needs: Review of discharge instructions, patient choice, SNF options, self care needs upon discharge. Services Needed at Discharge: Home Delivered Meals, Home Health Care Services, Homemaking Services, Occupational Therapy, Physical Therapy
--- NOTE | 2018-08-15 18:30 | CMDISCH_ITS ---
LACE Index Scoring Tool - Questions: Length of Stay (in days): 14 or more Acuity (Admit via E.D.?): Yes Comorbidities: Chronic Pulmonary Disease E.D. Visits: 14 - Answers: Total Score: 16 Risk of Readmission: High Risk Care Management Discharge Reason for Hospitalization: SWB1 for IV ABX Discharge Plan: Brenden will resume home based supports; RN and MATERIAL HAULER with an addition of PT/OT and resumption of CFC supports. He will follow up with his PCP and plan of care. CM notified ED of discharge planning and faxed notification to [facility]. Brenden will transport via private vehicle with his friend. Patient/Family Education Needs: Review of discharge instructions, patient choice, SNF options, self care needs upon discharge. Services Needed at Discharge: Home Delivered Meals, Home Health Care Services, Homemaking Services, Occupational Therapy, Physical Therapy
== END 2018-08-15 14:51 | disposition home health service (06) | DRG 690 ==
PROVIDERS: Admitting Provider Internal Medicine; PCP Family Medicine; Visit Provider Internal Medicine
DX: N39.0 Urinary tract infection, site not specified (principal); Z79.2 Long term (current) use of antibiotics; K59.09 Other constipation; N32.89 Other specified disorders of bladder; J44.9 Chronic obstructive pulmonary disease, unspecified; I48.91 Unspecified atrial fibrillation; B96.20 Unspecified Escherichia coli [E. coli] as the cause of diseases classified elsewhere; Z16.12 Extended spectrum beta lactamase (ESBL) resistance; B96.1 Klebsiella pneumoniae [K. pneumoniae] as the cause of diseases classified elsewhere; Z16.11 Resistance to penicillins; N40.1 Benign prostatic hyperplasia with lower urinary tract symptoms; R33.8 Other retention of urine; Z93.51 Cutaneous-vesicostomy status; Z95.810 Presence of automatic (implantable) cardiac defibrillator; R53.1 Weakness; E03.9 Hypothyroidism, unspecified; Z87.440 Personal history of urinary (tract) infections; H40.9 Unspecified glaucoma
CPT/HCPCS: 36415; 80053; 94640; 97110; 97162; 97165; 97530; 97535; 99239; 99305; 99316; 85025; 94660; J3490

== ENCOUNTER 2018-10-29 12:13 | Emergency (ER) | payer MEDICARE, MEDICAID, SELFPAY ==
[2018-10-29] VITALS (21 sets, daily range): BP systolic 105–144; BP diastolic 67–101; PULSE 63–112; RESP 14–32; TEMP 36.6; O2SAT 96–99
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
[2018-10-29] MEDS: Ondansetron 4 MG/2 ML VIAL IVP (13:18)
[2018-10-29] MEDS: Normal Saline 250 ML IV ×2 (13:19→14:25)
[2018-10-29 13:27] LABS: Abs Immature Grans 0.05 k/cumm (0.0-0.09); Absolute Basophil Count 0.04 k/cumm (0.0-0.2); Absolute Eosinophil Count 0.09 k/cumm (0.0-0.7); Absolute Lymphocyte Count 1.67 k/cumm (1.2-3.4); Absolute Monocyte Count 0.76 k/cumm (0.11-0.7); Absolute Neutrophil Count 3.55 k/cumm (1.2-6.7); Basophils % 0.6; Eosinophils % 1.5; HCT 47.1 % (40.0-50.0); HGB 15.5 g/dL (13.5-17.5); Immature Grans % 0.8; Lymphocytes % 27.1; Mean Corp. HGB Concentration 32.9 g/dL (32.0-36.0); Mean Corpuscular Hemoglobin 30.2 pg (27.0-33.0); Mean Corpuscular Volume 91.6 fL (80-95); Mean Platelet Volume 10.1 fL (8.0-11.0); Monocytes % 12.3; Neutrophils % 57.7; Platelet Count 219 x1000/uL (130-400); RBC 5.14 m/cumm (4.50-6.00); RBC Distribution Width 16.8 % (11.8-14.1); White Blood Cell Count 6.16 k/cumm (4.4-10.8)
[2018-10-29 13:28] LABS: Bilirubin Negative (Negative); Blood Trace-lysed (Negative); Clarity Sl Cloudy; Glucose Negative (Negative); Ketones Negative (Negative); Leukocyte Esterase Moderate (Negative); Nitrite Positive (Negative); Specific Gravity 1.015 (1.005-1.025); Urobilinogen 0.2 EU/dL (Up TO 0.2)
[2018-10-29 13:36] LABS: WBC >50 HPF (0-5)
[2018-10-29 13:37] LABS: Bacteria Many HPF (Negative); C & S Indicated? C&S Done As Ordered; Casts Negative LPF (Negative); Crystals Negative HPF (Negative); Epithelial Cells Negative HPF (Negative); Mucus Negative (Negative); Other Cells Rare Renal (Negative)
[2018-10-29 13:39] LABS: ALT 26 U/L (12-78); AST 32 U/L (15-37); Albumin 3.6 g/dL (3.4-5.0); Alkaline Phosphatase 109 U/L (46-116); Anion Gap 8.2 mmol/L (3-11); BUN 27 mg/dL (7-18); Bilirubin, Total 0.8 mg/dL (0.2-1.0); CO2 29.8 mmol/L (21.0-32.0); CREATININE 1.61 mg/dL (0.70-1.30); Calcium 9.2 mg/dL (8.5-10.1); Chloride 102 mmol/L (98-107); Estimated GFR 41.29 (mL/min/1.73m2); Glucose 89 mg/dL (70-100); Potassium 4.1 mmol/L (3.5-5.1); Sodium 140 mmol/L (136-145); Total Protein 7.7 g/dL (6.4-8.2); Troponin I < 0.02 ng/mL (0.00-0.06)
[2018-10-29] MEDS: Omnipaque 350 MG/ML 50 ML BTL IJ (14:26)
[2018-10-29] MEDS: Metoclopramide 10 MG/2 ML VIAL IVP (14:33)
--- NOTE | 2018-10-29 15:07 | NUR.NOTE ---
Nursing Note: patient left for abd CT 1500 with olive grader. --Robert LEMA
--- NOTE | 2018-10-29 15:27 | DI.VRAD_ITS ---
EXAM: CT Abdomen and Pelvis Without Contrast EXAM DATE/TIME: 10/29/2018 1:44 PM CLINICAL HISTORY: 83 years old, male; Abdominal pain TECHNIQUE: Imaging protocol: Axial computed tomography images of the abdomen and pelvis without contrast. Coronal and sagittal reformatted images were created and reviewed. COMPARISON: CT ABDOMEN PELVIS WO 08/04/2018 10:31 PM FINDINGS: Prior cholecystectomy. Appendix is normal. Moderate diverticulosis without evidence of diverticulitis. Suprapubic urinary bladder catheter in place. Normal appearing solid organs. No intestinal obstruction. No obstructive uropathy. No free fluid. No free air. No inflammatory changes. IMPRESSION: No specific etiology identified for the patient's symptoms. Dictated and Authenticated by: Kalen Sloan MD. Ordering:CARLEY Steele MD
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
[2018-10-29] MEDS: Ondansetron O.D.T. 4 MG TABEF 8 MG PO (15:54)
[2018-10-31 10:48] LABS: Campylobacter PCR SEE COMMENTS; Salmonella PCR SEE COMMENTS; Shiga Toxin PCR SEE COMMENTS; Shigella/Enteroinvasive Ecoli SEE COMMENTS
== END 2018-10-29 15:47 | disposition home or self-care (01) ==
PROVIDERS: Emergency Provider Physician Assistant; PCP Family Medicine
DX: R11.2 Nausea with vomiting, unspecified (principal); R10.9 Unspecified abdominal pain; R82.71 Bacteriuria; B96.1 Klebsiella pneumoniae [K. pneumoniae] as the cause of diseases classified elsewhere; Z16.11 Resistance to penicillins; I48.91 Unspecified atrial fibrillation; I13.0 Hypertensive heart and chronic kidney disease with heart failure and stage 1 through stage 4 chronic kidney disease, or unspecified chronic kidney disease; I50.9 Heart failure, unspecified; N18.9 Chronic kidney disease, unspecified; Z95.1 Presence of aortocoronary bypass graft; Z96.0 Presence of urogenital implants; J44.9 Chronic obstructive pulmonary disease, unspecified; Z87.891 Personal history of nicotine dependence; R19.7 Diarrhea, unspecified; Z93.51 Cutaneous-vesicostomy status; Z87.440 Personal history of urinary (tract) infections
CPT/HCPCS: 36415; 80053; 87077; 87505; 93005; 96361; 96374; 96375; 99285; 71046; 74176; 81003; 81015; 83735; 84484; 85025; 87086; 87186; 93010; J2405; J2765; Q9967

== ENCOUNTER 2018-11-30 21:36 | Emergency (ER) | payer MEDICARE, MEDICAID, SELFPAY ==
[2018-11-30] VITALS (8 sets, daily range): BP systolic 100–114; BP diastolic 56–88; PULSE 61–101; RESP 14–26; O2SAT 96
--- NOTE | 2018-11-30 21:41 | W.ED.GENAD ---
Discharge Plan Disposition Patient Disposition: HOME Condition: Good Discharge Details Chief Complaint: SOB Clinical Impression: Atrial fibrillation Primary Care Provider: Lorena Chong ED Provider: Danie Dewitt Hancock Meds and New Rx's Prescriptions: Continued latanoprost 2.5 ML drops 1 drp OU HS RF: 0 Azopt 5 ML drops,suspension 1 drp OU DAILY RF: 0 metoprolol tartrate 50 MG tablet 75 mg PO BID Qty: 270 RF: 3 Spiriva with HandiHaler 18 MCG capsule, w/inhalation device 1 cap Inhalation DAILY RF: 0 nitroglycerin [Nitrostat] 0.4 MG tablet, sublingual 0.4 mg Sublingual Q5 MIN PRN X3 PRNQty: 60 RF: 0 potassium chloride [Klor-Con M20] 20 MEQ tablet,ER particles/crystals 20 meq PO DAILY AM Qty: 30 RF: 0 acetaminophen [Tylenol] 325 MG tablet 650 mg PO Q4H PRN PRNRF: 0 multivitamin with minerals [Multiple Vitamin-Minerals] 1 EACH tablet 1 tab PO DAILY RF: 0 mirtazapine [Remeron] 15 MG tablet 15 mg PO HS RF: 0 levothyroxine 75 MCG tablet 75 mcg PO DAILY@0600 RF: 0 cholecalciferol (vitamin D3) 1,000 UNITS tablet 1 tab PO Q30D RF: 0 bisacodyl 10 MG suppository 10 mg [place] DAILY RF: 0 Fluticasone Propionate [24 Hour Allergy] 9.9 ML [place].Susp 9.9 ml NS BID RF: 0 lorazepam [Ativan] 0.5 mg Tablet 0.5 mg PO BID RF: 0 oxycodone 5 mg Tablet 5 mg PO TID PRN (Reason: Pain) RF: 0 lactulose 10 gram/15 mL Solution 10 g PO DAILY PRNRF: 0 Flovent HFA 120 PUFF HFA aerosol inhaler 2 puff Inhalation BID RF: 0 furosemide 20 MG tablet 40 mg PO DAILY RF: 0 albuterol sulfate 2.5 MG/3 ML solution for nebulization 3 ml IN Q4H PRN PRNRF: 0 pantoprazole 40 MG tablet,delayed release (DR/EC) 40 mg PO BID Qty: 0 RF: 0 ursodiol [Actigall] 300 MG capsule 300 mg PO BID RF: 0 Pradaxa 75 MG capsule 150 mg PO BID Qty: 0 RF: 0 ranitidine HCl 15 mg/mL Syrup 150 mg PO BID Qty: 60 RF: 0 acidophilus-pectin, citrus 25 million cell -100 mg Tablet 1 cap PO TID Qty: 90 RF: 0 Myrbetriq 50 mg Tablet Extended Release 24 Hr 50 mg PO DAILY Qty: 30 RF: 0 sennosides [senna] 8.6 mg Tablet 8.6 mg PO HS RF: 0 phenazopyridine [Pyridium] 100 mg Tablet 100 mg PO BID RF: 0 Fleet Enema 19-7 gram/118 mL Enema 197 ml [place] ONCE PRNRF: 0 docusate sodium [Colace] 100 mg Capsule 100 mg PO BID RF: 0 albuterol sulfate [ProAir HFA] 90 mcg/actuation Hfa Aerosol Inhaler 2 puff Inhalation QID PRN PRNRF: 0 ondansetron 4 mg Tablet,Disintegrating 4 mg PO QID PRNRF: 0 Narcan 4 mg/actuation [place],Non-Aerosol 4 mg Intranasal PRN PRNRF: 0 Discharge Instructions Additional Instructions: Please take your morning medications especially your metoprolol when you get home. Follow-up with primary care and/or cardiology as you may need dose adjustment of your metoprolol. Return to ED for recurrent palpitations, shortness of breath, chest pain, or other concerns per Referrals: Lorena Chong [Primary Care Provider] - Medical Decision Making Patient with A. fib with RVR per EMS treated with Cardizem. Arrives here with controlled heart rate. Vital signs normal. He is chronically ill-appearing but not acutely distressed. His lungs are mostly clear, may be an occasional rhonchi but inconsistent. Abdomen is benign. No significant pedal edema. Nonfocal neurologic exam. Chronic suprapubic tube which patient reports is not painful with no change in character of urine and no flank pain. IV is in place so patient is written for IV fluids. Laboratory studies including a delta troponin ordered. Chest x-ray ordered. Plan on monitoring for rate control while here. Laboratory studies significant for white count of 12. Hemoglobin normal. Stable chronic kidney disease. Electrolytes normal. Liver function normal. First troponin negative. Chest x-ray with nothing acute. Patient has remained rate controlled here. We will plan a 4-hour troponin. If this remains negative and he remains rate controlled without symptoms we will plan on discharge. 02:45 -patient second troponin is negative. For the most part he has been rate controlled here. In the last hour or so he has had some spurts of increased rate. We will give a dose of IV Lopressor since that is what he is on at home. If he slows down we will discharge home with instructions to take his metoprolol and the morning. He will need to follow-up with primary care and/or cardiology as he may need an increase in his metoprolol dosage. 05:00 -rate has been better after the Lopressor. RCT is coming at 5:30 to get the patient to bring him home. He is to take his morning medications including his metoprolol this morning. Follow-up with primary care and/or cardiology. Return to ED if recurrent palpitations, shortness of breath, chest pain, or other concerns. Medical Records Medical records reviewed: Yes I reviewed the patient's medical records. Lab Data Lab results reviewed: Yes I reviewed the patient's lab results. ECG Data Attestation: I personally reviewed and interpreted this ECG (s) as follows: Prior ECG tracings: available for review Interpretation: Atrial fibrillation with paced beats at times at a rate of 86. [place] beats with normal axis and intervals. No acute ST changes noted. HPI General Mode of arrival: EMS. Date/Time Provider Initiated Documentation: 11/30/18 21:38. Limitations to Documentation: no limitations. Information obtained by: patient, EMS, RN notes reviewed and old records reviewed. HPI Narrative: Patient presents to ED by ambulance for evaluation of rapid heart rate and shortness of breath. Patient apparently was with his doctor today. He had an irregular fast heart rate then and was told to come to the ED but he did not. He went home. Subsequently felt worse tonight and called EMS. On EMS arrival he had a heart rate that was elevated in the 140 range. He has subsequently received 20 mg of IV Cardizem and was transported here. On arrival he states he feels better. His heart is no longer racing. He does not feel short of breath. He does not think he had any chest pain at any time. He has been taking his medications. He denies vomiting or diarrhea. He denies bleeding or black stool. 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 He also has a history of COPD. Related Data Home Medications Medication Instructions Recorded Confirmed Spiriva with HandiHaler 1 cap INHALATION DAILY 11/08/12 11/30/18 nitroglycerin [Nitrostat] 0.4 mg SUBLINGUAL Q5 MIN PRN X3 05/27/14 11/30/18 PRN #60 tab potassium chloride [Klor-Con M20] 20 meq PO DAILY AM #30 tabcr 07/18/15 11/30/18 Azopt 1 drp OU DAILY drp 09/30/15 11/30/18 latanoprost 1 drp OU HS drp 09/30/15 11/30/18 acetaminophen [Tylenol] 650 mg PO Q4H PRN PRN tab 11/25/15 11/30/18 mirtazapine [Remeron] 15 mg PO HS 03/04/16 11/30/18 multivitamin with minerals 1 tab PO DAILY 03/04/16 11/30/18 [Multiple Vitamin-Minerals] levothyroxine 75 mcg PO DAILY@0600 tab 04/13/16 11/30/18 Flovent HFA 2 puff INHALATION BID inh 05/30/16 11/30/18 furosemide 40 mg PO DAILY 10/22/16 11/30/18 cholecalciferol (vitamin D3) 1 tab PO Q30D 08/01/17 12/01/18 albuterol sulfate 3 ml IN Q4H PRN PRN 10/22/17 11/30/18 metoprolol tartrate 75 mg PO BID #270 tab-cap 11/09/17 11/30/18 Fluticasone Propionate [24 Hour 9.9 ml NS BID 12/30/17 11/30/18 Allergy] bisacodyl 10 mg [place] DAILY 12/30/17 11/30/18 pantoprazole 40 mg PO BID #0 02/28/18 11/30/18 Pradaxa 150 mg PO BID #0 cap 03/02/18 11/30/18 ursodiol [Actigall] 300 mg PO BID cap 03/02/18 12/01/18 Myrbetriq 50 mg PO DAILY #30 tab 08/15/18 12/01/18 acidophilus-pectin, citrus 1 cap PO TID #90 tab 08/15/18 12/01/18 ranitidine HCl 150 mg PO BID #60 ml 08/15/18 12/01/18 lactulose 10 g PO DAILY PRN 10/29/18 11/30/18 lorazepam [Ativan] 0.5 mg PO BID 10/29/18 12/01/18 oxycodone 5 mg PO TID PRN 10/29/18 11/30/18 Fleet Enema 197 ml [place] ONCE PRN 11/30/18 11/30/18 Narcan 4 mg INTRANASAL PRN PRN 11/30/18 11/30/18 albuterol sulfate [ProAir HFA] 2 puff INHALATION QID PRN PRN 11/30/18 12/01/18 docusate sodium [Colace] 100 mg PO BID 11/30/18 11/30/18 ondansetron 4 mg PO QID PRN 11/30/18 11/30/18 phenazopyridine [Pyridium] 100 mg PO BID 11/30/18 12/01/18 sennosides [senna] 8.6 mg PO HS 11/30/18 12/01/18 Previous Rx's Medication Instructions Recorded nitroglycerin [Nitrostat] 0.4 mg SUBLINGUAL Q5 MIN PRN X3 05/27/14 PRN #60 tab potassium chloride [Klor-Con M20] 20 meq PO DAILY AM #30 tabcr 07/18/15 acetaminophen [Tylenol] 650 mg PO Q4H PRN PRN tab 11/25/15 levothyroxine 75 mcg PO DAILY@0600 tab 04/13/16 Flovent HFA 2 puff INHALATION BID inh 05/30/16 metoprolol tartrate 75 mg PO BID #270 tab-cap 11/09/17 pantoprazole 40 mg PO BID #0 02/28/18 Pradaxa 150 mg PO BID #0 cap 03/02/18 ursodiol [Actigall] 300 mg PO BID cap 03/02/18 Myrbetriq 50 mg PO DAILY #30 tab 08/15/18 acidophilus-pectin, citrus 1 cap PO TID #90 tab 08/15/18 ranitidine HCl 150 mg PO BID #60 ml 08/15/18 Allergies Allergy/AdvReac Type Severity Reaction Status Date / Time banana Allergy Mild Skin Rash Unverified 07/31/18 13:30 formoterol fumarate AdvReac Intermediate Ineffective Unverified 07/31/18 13:30 [From Dulera] per Pt mometasone furoate AdvReac Intermediate Ineffective Unverified 07/31/18 13:30 [From Dulera] per Pt hydrocodone AdvReac Unknown Dizziness/L Unverified 07/31/18 13:30 ightheade General CINTIA: 2 Review of Systems Review of Systems 04/17 Review of Systems completed and is negative except as stated above in HPI (Systems reviewed: Const, Eyes, ENT, Resp, CV, GI, , MSK, Skin, Neuro) [facility] Medical History GERD (gastroesophageal reflux disease) (Chronic) Chronic kidney disease (CKD) (Chronic) Anxiety (Chronic) Atrial fibrillation (Chronic) BPH (benign prostatic hyperplasia) (Chronic) Chronic obstructive lung disease (Chronic) Diverticulosis of large intestine without diverticulitis (Chronic) Essential hypertension (Chronic) Glaucoma (Chronic) Insomnia (Chronic) Polyp of colon (Chronic) Spinal stenosis of lumbar region (Chronic) Tachycardia-bradycardia (Chronic) Surgical History Pacemaker (Chronic) S/P TURP (Chronic) Colonoscopy - MAC (Inactive) Social History Smoking/Tobacco Use Status: Former Tobacco Use Alcohol Intake: never Drug use: Never Do you feel safe at home: Yes Do you feel safe in your relationship?: Yes Exam Narrative Exam Narrative: Vitals: Normal on arrival. Const: Chronically ill appearing elderly male in NAD. HEENT: NC/AT. Normal facial exam. Eyes: Inflammed conjunctiva, normal sclera. Neck: Supple. Trachea midline. Lungs: Normal respiratory effort. Lungs are clear at this time. Cor: Irr/Irr without murmur/gallop. Good radial pulses. GI: Soft. NT/ND. No guarding or rebound. Neuro: A+O x 3. CN grossly in tact. Good strength and no focal deficit. Ext: No C/C/E. No deformity or tenderness. Skin: Warm and dry without rash.
--- NOTE | 2018-11-30 21:50 | ED.GENADUL_ITS ---
Discharge Plan Disposition Patient Disposition: HOME Condition: Good Discharge Details Chief Complaint: SOB Clinical Impression: Atrial fibrillation Primary Care Provider: Lorena Chong ED Provider: Danie Dewitt Conesus Meds and New Rx's Prescriptions: Continued latanoprost 2.5 ML drops 1 drp OU HS RF: 0 Azopt 5 ML drops,suspension 1 drp OU DAILY RF: 0 metoprolol tartrate 50 MG tablet 75 mg PO BID Qty: 270 RF: 3 Spiriva with HandiHaler 18 MCG capsule, w/inhalation device 1 cap Inhalation DAILY RF: 0 nitroglycerin [Nitrostat] 0.4 MG tablet, sublingual 0.4 mg Sublingual Q5 MIN PRN X3 PRNQty: 60 RF: 0 potassium chloride [Klor-Con M20] 20 MEQ tablet,ER particles/crystals 20 meq PO DAILY AM Qty: 30 RF: 0 acetaminophen [Tylenol] 325 MG tablet 650 mg PO Q4H PRN PRNRF: 0 multivitamin with minerals [Multiple Vitamin-Minerals] 1 EACH tablet 1 tab PO DAILY RF: 0 mirtazapine [Remeron] 15 MG tablet 15 mg PO HS RF: 0 levothyroxine 75 MCG tablet 75 mcg PO DAILY@0600 RF: 0 cholecalciferol (vitamin D3) 1,000 UNITS tablet 1 tab PO Q30D RF: 0 bisacodyl 10 MG suppository 10 mg [place] DAILY RF: 0 Fluticasone Propionate [24 Hour Allergy] 9.9 ML [place].Susp 9.9 ml NS BID RF: 0 lorazepam [Ativan] 0.5 mg Tablet 0.5 mg PO BID RF: 0 oxycodone 5 mg Tablet 5 mg PO TID PRN (Reason: Pain) RF: 0 lactulose 10 gram/15 mL Solution 10 g PO DAILY PRNRF: 0 Flovent HFA 120 PUFF HFA aerosol inhaler 2 puff Inhalation BID RF: 0 furosemide 20 MG tablet 40 mg PO DAILY RF: 0 albuterol sulfate 2.5 MG/3 ML solution for nebulization 3 ml IN Q4H PRN PRNRF: 0 pantoprazole 40 MG tablet,delayed release (DR/EC) 40 mg PO BID Qty: 0 RF: 0 ursodiol [Actigall] 300 MG capsule 300 mg PO BID RF: 0 Pradaxa 75 MG capsule 150 mg PO BID Qty: 0 RF: 0 ranitidine HCl 15 mg/mL Syrup 150 mg PO BID Qty: 60 RF: 0 acidophilus-pectin, citrus 25 million cell -100 mg Tablet 1 cap PO TID Qty: 90 RF: 0 Myrbetriq 50 mg Tablet Extended Release 24 Hr 50 mg PO DAILY Qty: 30 RF: 0 sennosides [senna] 8.6 mg Tablet 8.6 mg PO HS RF: 0 phenazopyridine [Pyridium] 100 mg Tablet 100 mg PO BID RF: 0 Fleet Enema 19-7 gram/118 mL Enema 197 ml [place] ONCE PRNRF: 0 docusate sodium [Colace] 100 mg Capsule 100 mg PO BID RF: 0 albuterol sulfate [ProAir HFA] 90 mcg/actuation Hfa Aerosol Inhaler 2 puff Inhalation QID PRN PRNRF: 0 ondansetron 4 mg Tablet,Disintegrating 4 mg PO QID PRNRF: 0 Narcan 4 mg/actuation [place],Non-Aerosol 4 mg Intranasal PRN PRNRF: 0 Discharge Instructions Additional Instructions: Please take your morning medications especially your metoprolol when you get home. Follow-up with primary care and/or cardiology as you may need dose adjustment of your metoprolol. Return to ED for recurrent palpitations, shortness of breath, chest pain, or other concerns per Referrals: Lorena Chong [Primary Care Provider] - Medical Decision Making Patient with A. fib with RVR per EMS treated with Cardizem. Arrives here with controlled heart rate. Vital signs normal. He is chronically ill-appearing but not acutely distressed. His lungs are mostly clear, may be an occasional rhonchi but inconsistent. Abdomen is benign. No significant pedal edema. Nonfocal neurologic exam. Chronic suprapubic tube which patient reports is not painful with no change in character of urine and no flank pain. IV is in place so patient is written for IV fluids. Laboratory studies including a delta troponin ordered. Chest x-ray ordered. Plan on monitoring for rate control while here. Laboratory studies significant for white count of 12. Hemoglobin normal. Stable chronic kidney disease. Electrolytes normal. Liver function normal. First troponin negative. Chest x-ray with nothing acute. Patient has remained rate controlled here. We will plan a 4-hour troponin. If this remains negative and he remains rate controlled without symptoms we will plan on discharge. 02:45 -patient second troponin is negative. For the most part he has been rate controlled here. In the last hour or so he has had some spurts of increased rate. We will give a dose of IV Lopressor since that is what he is on at home. If he slows down we will discharge home with instructions to take his metoprolol and the morning. He will need to follow-up with primary care and/or cardiology as he may need an increase in his metoprolol dosage. 05:00 -rate has been better after the Lopressor. RCT is coming at 5:30 to get the patient to bring him home. He is to take his morning medications including his metoprolol this morning. Follow-up with primary care and/or cardiology. Return to ED if recurrent palpitations, shortness of breath, chest pain, or other concerns. Medical Records Medical records reviewed: Yes I reviewed the patient's medical records. Lab Data Lab results reviewed: Yes I reviewed the patient's lab results. ECG Data Attestation: I personally reviewed and interpreted this ECG (s) as follows: Prior ECG tracings: available for review Interpretation: Atrial fibrillation with paced beats at times at a rate of 86. [place] beats with normal axis and intervals. No acute ST changes noted. HPI General Mode of arrival: EMS . Date/Time Provider Initiated Documentation: 11/30/18 21:38 . Limitations to Documentation: no limitations . Information obtained by: patient, EMS, RN notes reviewed and old records reviewed . HPI Narrative: Patient presents to ED by ambulance for evaluation of rapid heart rate and shortness of breath. Patient apparently was with his doctor today. He had an irregular fast heart rate then and was told to come to the ED but he did not. He went home. Subsequently felt worse tonight and called EMS. On EMS arrival he had a heart rate that was elevated in the 140 range. He has subsequently received 20 mg of IV Cardizem and was transported here. On arrival he states he feels better. His heart is no longer racing. He does not feel short of breath. He does not think he had any chest pain at any time. He has been taking his medications. He denies vomiting or diarrhea. He denies bleeding or black stool. 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 He also has a history of COPD. Related Data Home Medications Medication Instructions Recorded Confirmed Spiriva with HandiHaler 1 cap INHALATION DAILY 11/08/12 11/30/18 nitroglycerin [Nitrostat] 0.4 mg SUBLINGUAL Q5 MIN PRN X3 05/27/14 11/30/18 PRN #60 tab potassium chloride [Klor-Con M20] 20 meq PO DAILY AM #30 tabcr 07/18/15 11/30/18 Azopt 1 drp OU DAILY drp 09/30/15 11/30/18 latanoprost 1 drp OU HS drp 09/30/15 11/30/18 acetaminophen [Tylenol] 650 mg PO Q4H PRN PRN tab 11/25/15 11/30/18 mirtazapine [Remeron] 15 mg PO HS 03/04/16 11/30/18 multivitamin with minerals 1 tab PO DAILY 03/04/16 11/30/18 [Multiple Vitamin-Minerals] levothyroxine 75 mcg PO DAILY@0600 tab 04/13/16 11/30/18 Flovent HFA 2 puff INHALATION BID inh 05/30/16 11/30/18 furosemide 40 mg PO DAILY 10/22/16 11/30/18 cholecalciferol (vitamin D3) 1 tab PO Q30D 08/01/17 12/01/18 albuterol sulfate 3 ml IN Q4H PRN PRN 10/22/17 11/30/18 metoprolol tartrate 75 mg PO BID #270 tab-cap 11/09/17 11/30/18 Fluticasone Propionate [24 Hour 9.9 ml NS BID 12/30/17 11/30/18 Allergy] bisacodyl 10 mg [place] DAILY 12/30/17 11/30/18 pantoprazole 40 mg PO BID #0 02/28/18 11/30/18 Pradaxa 150 mg PO BID #0 cap 03/02/18 11/30/18 ursodiol [Actigall] 300 mg PO BID cap 03/02/18 12/01/18 Myrbetriq 50 mg PO DAILY #30 tab 08/15/18 12/01/18 acidophilus-pectin, citrus 1 cap PO TID #90 tab 08/15/18 12/01/18 ranitidine HCl 150 mg PO BID #60 ml 08/15/18 12/01/18 lactulose 10 g PO DAILY PRN 10/29/18 11/30/18 lorazepam [Ativan] 0.5 mg PO BID 10/29/18 12/01/18 oxycodone 5 mg PO TID PRN 10/29/18 11/30/18 Fleet Enema 197 ml [place] ONCE PRN 11/30/18 11/30/18 Narcan 4 mg INTRANASAL PRN PRN 11/30/18 11/30/18 albuterol sulfate [ProAir HFA] 2 puff INHALATION QID PRN PRN 11/30/18 12/01/18 docusate sodium [Colace] 100 mg PO BID 11/30/18 11/30/18 ondansetron 4 mg PO QID PRN 11/30/18 11/30/18 phenazopyridine [Pyridium] 100 mg PO BID 11/30/18 12/01/18 sennosides [senna] 8.6 mg PO HS 11/30/18 12/01/18 Previous Rx's Medication Instructions Recorded nitroglycerin [Nitrostat] 0.4 mg SUBLINGUAL Q5 MIN PRN X3 05/27/14 PRN #60 tab potassium chloride [Klor-Con M20] 20 meq PO DAILY AM #30 tabcr 07/18/15 acetaminophen [Tylenol] 650 mg PO Q4H PRN PRN tab 11/25/15 levothyroxine 75 mcg PO DAILY@0600 tab 04/13/16 Flovent HFA 2 puff INHALATION BID inh 05/30/16 metoprolol tartrate 75 mg PO BID #270 tab-cap 11/09/17 pantoprazole 40 mg PO BID #0 02/28/18 Pradaxa 150 mg PO BID #0 cap 03/02/18 ursodiol [Actigall] 300 mg PO BID cap 03/02/18 Myrbetriq 50 mg PO DAILY #30 tab 08/15/18 acidophilus-pectin, citrus 1 cap PO TID #90 tab 08/15/18 ranitidine HCl 150 mg PO BID #60 ml 08/15/18 Allergies Allergy/AdvReac Type Severity Reaction Status Date / Time banana Allergy Mild Skin Rash Unverified 07/31/18 13:30 formoterol fumarate AdvReac Intermediate Ineffective Unverified 07/31/18 13:30 [From Dulera] per Pt mometasone furoate AdvReac Intermediate Ineffective Unverified 07/31/18 13:30 [From Dulera] per Pt hydrocodone AdvReac Unknown Dizziness/L Unverified 07/31/18 13:30 ightheade General CINTIA: 2 Review of Systems Review of Systems 04/17 Review of Systems completed and is negative except as stated above in HPI (Systems reviewed: Const, Eyes, ENT, Resp, CV, GI, , MSK, Skin, Neuro) [facility] Medical History GERD (gastroesophageal reflux disease) (Chronic) Chronic kidney disease (CKD) (Chronic) Anxiety (Chronic) Atrial fibrillation (Chronic) BPH (benign prostatic hyperplasia) (Chronic) Chronic obstructive lung disease (Chronic) Diverticulosis of large intestine without diverticulitis (Chronic) Essential hypertension (Chronic) Glaucoma (Chronic) Insomnia (Chronic) Polyp of colon (Chronic) Spinal stenosis of lumbar region (Chronic) Tachycardia-bradycardia (Chronic) Surgical History Pacemaker (Chronic) S/P TURP (Chronic) Colonoscopy - MAC (Inactive) Social History Smoking/Tobacco Use Status: Former Tobacco Use Alcohol Intake: never Drug use: Never Do you feel safe at home: Yes Do you feel safe in your relationship?: Yes Exam Narrative Exam Narrative: Vitals: Normal on arrival. Const: Chronically ill appearing elderly male in NAD. HEENT: NC/AT. Normal facial exam. Eyes: Inflammed conjunctiva, normal sclera. Neck: Supple. Trachea midline. Lungs: Normal respiratory effort. Lungs are clear at this time. Cor: Irr/Irr without murmur/gallop. Good radial pulses. GI: Soft. NT/ND. No guarding or rebound. Neuro: A+O x 3. CN grossly in tact. Good strength and no focal deficit. Ext: No C/C/E. No deformity or tenderness. Skin: Warm and dry without rash.
[2018-11-30] MEDS: Lactated Ringers 500 ML IV (22:00)
[2018-11-30 22:10] LABS: Abs Immature Grans 0.23 k/cumm (0.0-0.09); Absolute Basophil Count 0.04 k/cumm (0.0-0.2); Absolute Eosinophil Count 0.12 k/cumm (0.0-0.7); Absolute Lymphocyte Count 2.43 k/cumm (1.2-3.4); Absolute Monocyte Count 1.42 k/cumm (0.11-0.7); Absolute Neutrophil Count 7.97 k/cumm (1.2-6.7); Basophils % 0.3; HCT 44.3 % (40.0-50.0); HGB 14.9 g/dL (13.5-17.5); Immature Grans % 1.9; Lymphocytes % 19.9; Mean Corp. HGB Concentration 33.6 g/dL (32.0-36.0); Mean Corpuscular Hemoglobin 30.8 pg (27.0-33.0); Mean Corpuscular Volume 91.5 fL (80-95); Mean Platelet Volume 9.9 fL (8.0-11.0); Monocytes % 11.6; Neutrophils % 65.3; Platelet Count 190 x1000/uL (130-400); RBC 4.84 m/cumm (4.50-6.00); RBC Distribution Width 17.2 % (11.8-14.1); White Blood Cell Count 12.21 k/cumm (4.4-10.8)
[2018-11-30 22:34] LABS: ALT 23 U/L (12-78); AST 16 U/L (15-37); Albumin 3.1 g/dL (3.4-5.0); Alkaline Phosphatase 97 U/L (46-116); Anion Gap 7.8 mmol/L (3-11); BUN 27 mg/dL (7-18); Bilirubin, Total 0.6 mg/dL (0.2-1.0); CO2 27.2 mmol/L (21.0-32.0); CREATININE 1.56 mg/dL (0.70-1.30); Calcium 8.7 mg/dL (8.5-10.1); Chloride 104 mmol/L (98-107); Estimated GFR 42.82 (mL/min/1.73m2); Glucose 120 mg/dL (70-100); Magnesium 2.1 mg/dL (1.8-2.4); Potassium 3.5 mmol/L (3.5-5.1); Sodium 139 mmol/L (136-145); Total Protein 6.6 g/dL (6.4-8.2)
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
[2018-11-30 22:45] LABS: Troponin I < 0.02 ng/mL (0.00-0.06)
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
[2018-12-01] VITALS (45 sets, daily range): BP systolic 87–128; BP diastolic 36–64; PULSE 57–137; RESP 17–29; O2SAT 92–98
[2018-12-01 02:31] LABS: Troponin I < 0.02 ng/mL (0.00-0.06)
[2018-12-01] MEDS: Metoprolol 5 MG/5 ML VIAL IVP (02:49)
== END 2018-12-01 05:23 | disposition home or self-care (01) ==
PROVIDERS: Emergency Provider Emergency Medicine; PCP Family Medicine
DX: I48.0 Paroxysmal atrial fibrillation (principal); I47.2 Ventricular tachycardia; N18.9 Chronic kidney disease, unspecified; I12.9 Hypertensive chronic kidney disease with stage 1 through stage 4 chronic kidney disease, or unspecified chronic kidney disease; J44.9 Chronic obstructive pulmonary disease, unspecified; Z87.891 Personal history of nicotine dependence; Z96.0 Presence of urogenital implants
CPT/HCPCS: 36415; 80053; 93005; 96361; 96374; 99285; 71046; 83735; 84484; 85025; 93010

== ENCOUNTER 2018-12-02 22:28 | Outpatient (REF) | payer MEDICARE, MEDICAID, SELFPAY ==
[2018-12-02 16:15] LABS: Bilirubin Negative (Negative); Blood Small (Negative); Clarity Cloudy; Glucose Negative (Negative); Ketones Negative (Negative); Leukocyte Esterase Moderate (Negative); Nitrite Positive (Negative); Urobilinogen 0.2 EU/dL (Up TO 0.2); pH 5.5 (5-8)
[2018-12-02 16:53] LABS: Bacteria Many HPF (Negative); C & S Indicated? C&S Done As Ordered; Casts Negative LPF (Negative); Crystals Negative HPF (Negative); Epithelial Cells Rare HPF (Negative); Mucus Trace (Negative); Other Cells Negative (Negative); WBC >50 HPF (0-5)
[2018-12-02 16:57] LABS: HCT 40.5 % (40.0-50.0); HGB 13.5 g/dL (13.5-17.5); Mean Corp. HGB Concentration 33.3 g/dL (32.0-36.0); Mean Corpuscular Hemoglobin 30.8 pg (27.0-33.0); Mean Corpuscular Volume 92.5 fL (80-95); Mean Platelet Volume 10.4 fL (8.0-11.0); Platelet Count 157 x1000/uL (130-400); RBC 4.38 m/cumm (4.50-6.00); RBC Distribution Width 16.9 % (11.8-14.1); White Blood Cell Count 10.38 k/cumm (4.4-10.8)
[2018-12-02 17:19] LABS: Anion Gap 8.9 mmol/L (3-11); BUN 23 mg/dL (7-18); CO2 25.1 mmol/L (21.0-32.0); CREATININE 1.47 mg/dL (0.70-1.30); Calcium 8.6 mg/dL (8.5-10.1); Chloride 102 mmol/L (98-107); Estimated GFR 45.86 (mL/min/1.73m2); Glucose 112 mg/dL (70-100); Potassium 3.8 mmol/L (3.5-5.1); Sodium 136 mmol/L (136-145)
== END 2018-12-02 22:48 ==
LOC: LBN 22:28
PROVIDERS: PCP Family Medicine; Visit Provider Nurse Practitioner Adult Health
DX: R50.9 Fever, unspecified (principal); N39.0 Urinary tract infection, site not specified; N18.9 Chronic kidney disease, unspecified; I10 Essential (primary) hypertension; E03.9 Hypothyroidism, unspecified
CPT/HCPCS: 80048; 85027; 87077; 81003; 81015; 87086; 87186

== ENCOUNTER 2018-12-05 10:44 | Outpatient (RCR) | payer MEDICARE, MEDICAID, SELFPAY | END 2019-01-01 23:59 | disposition home or self-care (01) | LOC: INF 10:44 | PROVIDERS: PCP Family Medicine; Visit Provider Family Medicine | DX: N39.0 Urinary tract infection, site not specified (principal); Z45.2 Encounter for adjustment and management of vascular access device; K59.00 Constipation, unspecified; Z90.49 Acquired absence of other specified parts of digestive tract | CPT/HCPCS: 36569; 74018 ==

== ENCOUNTER 2018-12-05 11:12 | Outpatient (CLI) | payer MEDICARE, MEDICAID, SELFPAY ==
--- NOTE | 2018-12-05 12:50 | DI.RAD_ITS ---
SYMPTOMS/DIAGNOSIS: CONSTIPATION, ? ILEUS/IMPACTION ABDOMEN: Two views were obtained. The bowel gas pattern is unremarkable with a moderate amount of fecal material in the colon. No evidence of bowel dilatation. Multiple vascular clips noted in the right upper quadrant consistent with prior cholecystectomy. Apparent previous lumbar laminectomy noted. Marked degenerative changes of lumbar spine, SI joints and hips noted bilaterally. CONCLUSION: Unremarkable examination of the abdomen.
== END 2018-12-05 11:32 ==
PROVIDERS: PCP Family Medicine; Visit Provider Nurse Practitioner Adult Health
DX: K59.00 Constipation, unspecified (principal); Z90.49 Acquired absence of other specified parts of digestive tract
CPT/HCPCS: 74018

== ENCOUNTER 2018-12-06 11:44 | Outpatient (CLI) | payer MEDICARE, MEDICAID, SELFPAY ==
[2018-12-06 13:14] LABS: Abs Immature Grans 0.05 k/cumm (0.0-0.09); Absolute Basophil Count 0.02 k/cumm (0.0-0.2); Absolute Eosinophil Count 0.08 k/cumm (0.0-0.7); Absolute Lymphocyte Count 1.64 k/cumm (1.2-3.4); Absolute Monocyte Count 0.47 k/cumm (0.11-0.7); Absolute Neutrophil Count 4.22 k/cumm (1.2-6.7); Basophils % 0.3; Eosinophils % 1.2; HCT 47.5 % (40.0-50.0); HGB 15.3 g/dL (13.5-17.5); Immature Grans % 0.8; Lymphocytes % 25.3; Mean Corp. HGB Concentration 32.2 g/dL (32.0-36.0); Mean Corpuscular Hemoglobin 30.2 pg (27.0-33.0); Mean Corpuscular Volume 93.9 fL (80-95); Mean Platelet Volume 11.1 fL (8.0-11.0); Monocytes % 7.3; Neutrophils % 65.1; Platelet Count 166 x1000/uL (130-400); RBC 5.06 m/cumm (4.50-6.00); RBC Distribution Width 16.7 % (11.8-14.1); White Blood Cell Count 6.48 k/cumm (4.4-10.8)
[2018-12-06 13:28] LABS: BUN 27 mg/dL (7-18); CREATININE 1.66 mg/dL (0.70-1.30); Calcium 8.9 mg/dL (8.5-10.1); Chloride 102 mmol/L (98-107); Estimated GFR 39.86 (mL/min/1.73m2); Glucose 89 mg/dL (70-100); Potassium 3.5 mmol/L (3.5-5.1); Sodium 143 mmol/L (136-145)
== END 2018-12-06 12:04 ==
PROVIDERS: PCP Family Medicine; Visit Provider Nurse Practitioner Adult Health
DX: J44.9 Chronic obstructive pulmonary disease, unspecified (principal); E03.9 Hypothyroidism, unspecified; I10 Essential (primary) hypertension; F33.1 Major depressive disorder, recurrent, moderate
CPT/HCPCS: 36415; 80048; 85025

== ENCOUNTER 2019-01-03 08:28 | Emergency (ER) | payer MEDICARE, MEDICAID, SELFPAY ==
[2019-01-03] VITALS (45 sets, daily range): BP systolic 96–133; BP diastolic 37–90; PULSE 55–115; RESP 11–47; TEMP 36.8–36.9; O2SAT 95–100
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
[2019-01-03 08:53] LABS: Abs Immature Grans 0.03 k/cumm (0.0-0.09); Absolute Basophil Count 0.03 k/cumm (0.0-0.2); Absolute Eosinophil Count 0.09 k/cumm (0.0-0.7); Absolute Monocyte Count 0.91 k/cumm (0.11-0.7); Absolute Neutrophil Count 3.83 k/cumm (1.2-6.7); Basophils % 0.5; Eosinophils % 1.5; HCT 41.7 % (40.0-50.0); HGB 13.7 g/dL (13.5-17.5); Immature Grans % 0.5; Lymphocytes % 19.7; Mean Corp. HGB Concentration 32.9 g/dL (32.0-36.0); Mean Corpuscular Hemoglobin 30.6 pg (27.0-33.0); Mean Corpuscular Volume 93.3 fL (80-95); Mean Platelet Volume 9.7 fL (8.0-11.0); Monocytes % 14.9; Neutrophils % 62.9; Platelet Count 197 x1000/uL (130-400); RBC 4.47 m/cumm (4.50-6.00); RBC Distribution Width 14.9 % (11.8-14.1); White Blood Cell Count 6.09 k/cumm (4.4-10.8)
[2019-01-03 08:58] LABS: Bilirubin Negative (Negative); Blood Small (Negative); Clarity Clear (Clear); Glucose Negative (Negative); Ketones Negative (Negative); Leukocyte Esterase Small (Negative); Nitrite Positive (Negative); Specific Gravity 1.015 (1.005-1.025); Urobilinogen 0.2 EU/dL (Up TO 0.2); pH 5.5 (5-8)
[2019-01-03 09:08] LABS: INR 1.2 (0.9-1.1); PTT Activated 33.7 sec (21.0-31.4); Prothrombin Time 12.2 sec (9.3-11.0)
[2019-01-03 09:09] LABS: Bacteria Moderate HPF (Negative); C & S Indicated? Yes; Casts Negative LPF (Negative); Crystals Negative HPF (Negative); Epithelial Cells Rare HPF (Negative); Mucus Negative (Negative)
[2019-01-03 09:18] LABS: ALT 19 U/L (12-78); AST 20 U/L (15-37); Albumin 3.1 g/dL (3.4-5.0); Alkaline Phosphatase 91 U/L (46-116); Anion Gap 8.5 mmol/L (3-11); BUN 18 mg/dL (7-18); Bilirubin, Total 0.6 mg/dL (0.2-1.0); CO2 28.5 mmol/L (21.0-32.0); CREATININE 1.45 mg/dL (0.70-1.30); Calcium 9.1 mg/dL (8.5-10.1); Chloride 105 mmol/L (98-107); Estimated GFR 46.59 (mL/min/1.73m2); Glucose 107 mg/dL (70-100); NT-proBNP 3708 pg/mL; Potassium 3.5 mmol/L (3.5-5.1); Sodium 142 mmol/L (136-145); TSH (W/Ref FT4) 3.14 uIU/mL (0.358-3.74)
[2019-01-03 09:20] LABS: Troponin I < 0.05 ng/mL (0.00-0.06)
--- NOTE | 2019-01-03 11:55 | DI.CT_ITS ---
SYMPTOM/DIAGNOSIS: ABD PAIN ABDOMEN AND PELVIC CT: Comparison is made with 10/29/18. Pacemaker leads are seen. The lung bases show mild emphysematous changes and scarring. Air is now seen in the biliary tree in the left lobe. The patient is status post cholecystectomy. There is no biliary dilatation. There is prominent diverticulosis of the colon greatest at the sigmoid. The appendix appears normal. There is no bowel dilatation. The pancreas is atrophic. The prostate is again noted to be grossly enlarged. A suprapubic catheter is seen. There is no hydronephrosis or urinary tract calculi. The aorta is heavily calcified but normal in diameter. There are degenerative changes in the lumbar spine. IMPRESSION: 1. Small amount of biliary air in the left lobe. There is no evidence of biliary dilatation or common duct stone. 2. Severe diverticulosis without evidence of diverticulitis. 3. Stable appearance of markedly enlarged prostate. A suprapubic catheter is again noted.
[2019-01-03 12:12] LABS: Troponin I < 0.05 ng/mL (0.00-0.06)
--- NOTE | 2019-01-05 14:09 | NUR.NOTE ---
Nursing Note: Per Dr. Mookie Morejon the urine culture result was faxed to [facility] for follow up. Stephanie Woodruff.
== END 2019-01-03 13:11 | disposition home or self-care (01) ==
PROVIDERS: Emergency Provider Student in an Organized Health Care Education/Training Program; PCP Family Medicine
DX: R07.9 Chest pain, unspecified (principal); I48.91 Unspecified atrial fibrillation; I47.2 Ventricular tachycardia; Z95.0 Presence of cardiac pacemaker; J44.9 Chronic obstructive pulmonary disease, unspecified; Z87.891 Personal history of nicotine dependence; Z96.0 Presence of urogenital implants
CPT/HCPCS: 36415; 80053; 87077; 93005; 99285; 71046; 74176; 81003; 81015; 83880; 84443; 84484; 85025; 85610; 85730; 87086; 87186; 93010

== ENCOUNTER 2019-01-26 11:13 | Emergency (ER) | payer MEDICARE, MEDICAID, SELFPAY ==
[2019-01-26 11:17] VITALS: BP 138/71; PULSE 106; RESP 14; TEMP 36.8
--- NOTE | 2019-01-26 11:33 | ED.GENADUL_ITS ---
Discharge Plan Disposition Patient Disposition: HOME Condition: Improving Discharge Details Chief Complaint: Abd Prob Clinical Impression: Abdominal pain, Urinary tract infection Primary Care Provider: Lorean Chong ED Provider: Hardy Frederick Home Meds and New Rx's Prescriptions: Continued latanoprost 2.5 ML drops 1 drp OU HS RF: 0 Azopt 5 ML drops,suspension 1 drp OU DAILY RF: 0 metoprolol tartrate 50 MG tablet 75 mg PO BID Qty: 270 RF: 3 Spiriva with HandiHaler 18 MCG capsule, w/inhalation device 1 cap Inhalation DAILY RF: 0 nitroglycerin [Nitrostat] 0.4 MG tablet, sublingual 0.4 mg Sublingual Q5 MIN PRN X3 PRNQty: 60 RF: 0 potassium chloride [Klor-Con M20] 20 MEQ tablet,ER particles/crystals 20 meq PO DAILY AM Qty: 30 RF: 0 acetaminophen [Tylenol] 325 MG tablet 650 mg PO Q4H PRN PRNRF: 0 multivitamin with minerals [Multiple Vitamin-Minerals] 1 EACH tablet 1 tab PO DAILY RF: 0 mirtazapine [Remeron] 15 MG tablet 15 mg PO HS RF: 0 levothyroxine 75 MCG tablet 75 mcg PO DAILY@0600 RF: 0 cholecalciferol (vitamin D3) 1,000 UNITS tablet 1 tab PO Q30D RF: 0 bisacodyl 10 MG suppository 10 mg LA DAILY RF: 0 Fluticasone Propionate [24 Hour Allergy] 9.9 ML [place].Susp 9.9 ml NS BID RF: 0 lorazepam [Ativan] 0.5 mg Tablet 0.5 mg PO BID RF: 0 oxycodone 5 mg Tablet 5 mg PO TID PRN (Reason: Pain) RF: 0 lactulose 10 gram/15 mL Solution 10 g PO DAILY RF: 0 Flovent HFA 120 PUFF HFA aerosol inhaler 2 puff Inhalation BID RF: 0 furosemide 20 MG tablet 40 mg PO DAILY RF: 0 albuterol sulfate 2.5 MG/3 ML solution for nebulization 3 ml IN Q4H PRN PRNRF: 0 pantoprazole 40 MG tablet,delayed release (DR/EC) 40 mg PO BID Qty: 0 RF: 0 ursodiol [Actigall] 300 MG capsule 300 mg PO BID RF: 0 Pradaxa 75 MG capsule 150 mg PO BID Qty: 0 RF: 0 acidophilus-pectin, citrus 25 million cell -100 mg Tablet 1 cap PO TID Qty: 90 RF: 0 Myrbetriq 50 mg Tablet Extended Release 24 Hr 50 mg PO DAILY Qty: 30 RF: 0 sennosides [senna] 8.6 mg Tablet 8.6 mg PO HS RF: 0 phenazopyridine [Pyridium] 100 mg Tablet 100 mg PO BID RF: 0 Fleet Enema 19-7 gram/118 mL Enema 197 ml LA ONCE PRNRF: 0 docusate sodium [Colace] 100 mg Capsule 100 mg PO BID RF: 0 albuterol sulfate [ProAir HFA] 90 mcg/actuation Hfa Aerosol Inhaler 2 puff Inhalation QID PRN PRNRF: 0 ondansetron 4 mg Tablet,Disintegrating 4 mg PO QID PRNRF: 0 Narcan 4 mg/actuation [place],Non-Aerosol 4 mg Intranasal PRN PRNRF: 0 ranitidine HCl 150 mg Tablet 150 mg PO BID RF: 0 Discharge Instructions Instructions: Abdominal Pain (ED) Additional Instructions: Home to rest today. [place] diet today. Your CAT scan did not show any acute findings. Continue your regular medications but I would recommend that you hold your senna and docusate today. Return if you develop a fever or any other acute concerns Medical Decision Making 83-year-old male with a number of chronic medical problems states he awoke normally this morning and then after eating breakfast developed right lower quadrant abdominal pain with associated loose 5-6 bowel movements. There was not blood in the stool and the patient did not have a fever or vomiting. He arrives to the emergency department with a temp of 36, blood pressure 138/71 slightly elevated pulse 90-100's. Mild tenderness in the abdomen present on exam without evidence of peritonitis. Differential diagnosis would include obstructive uropathy as he recently had replacement of his suprapubic catheter, gastroenteritis, ileus or obstruction. Patient had IV access established, he was given a small fluid bolus, analgesia, 5 mg of metoprolol, referred for laboratory testing and CT of the abdomen and pelvis. Patient's laboratories are reassuring with a white blood cell count of 7, hematocrit is 45, platelets 226. Known chronic renal insufficiency with unremarkable electrolytes and liver functions. Lipase 69. CT scan of the abdomen pelvis without acute findings. Patient has evidence of acute urinary tract infection and given his complaints I will treat with a course of Keflex. He is stable and improved at this time Patient able to have a bowl of soup for lunch and felt subjectively better. Lab Data Lab results reviewed: Yes I reviewed the patient's lab results. Laboratory Results - last 24 hr 01/26/19 01/26/19 01/26/19 11:37 11:37 11:37 WBC 7.20 RBC 4.83 Hgb 15.0 Hct 45.2 MCV 93.6 MCH 31.1 MCHC 33.2 RDW 15.5 H Plt Count 226 MPV 10.1 Immature Gran % 0.6 Neutrophils % 63.1 Lymphocytes % 19.0 Monocytes % 13.5 Eosinophils % 3.2 Basophils % 0.6 Absolute Neutrophils 4.55 Absolute Lymphocytes 1.37 Absolute Monocytes 0.97 H Absolute Eosinophils 0.23 Absolute Basophils 0.04 Sodium 141 Potassium 3.5 Chloride 103 Carbon Dioxide 29.6 Anion Gap 8.4 BUN 17 Creatinine 1.50 H Estimated GFR/1.73 m2 44.81 Glucose 91 Lactate 1.3 Calcium 9.0 Total Bilirubin 0.9 AST 17 ALT 21 Alkaline Phosphatase 98 Total Protein 7.4 Albumin 3.4 Lipase 69 L HPI General Mode of arrival: ambulatory . Date/Time Provider Initiated Documentation: 01/26/19 11:44 . Limitations to Documentation: no limitations . Information obtained by: patient . History of Present Illness 83 year old M presents to the emergency department with the chief complaint of Abdominal pain, began this morning, described as moderate, and is localized to the abdomen and right. Patient reports no radiation. Patient started experiencing this hour(s) and it has been constant. No relieving factors improve symptom(s), No exacerbating factors reported . Patient notes other (Loose stool). Patient did receive the following treatments prior to arrival, none Related Data Home Medications Medication Instructions Recorded Confirmed Spiriva with HandiHaler 1 cap INHALATION DAILY 11/08/12 01/26/19 nitroglycerin [Nitrostat] 0.4 mg SUBLINGUAL Q5 MIN PRN X3 05/27/14 01/26/19 PRN #60 tab potassium chloride [Klor-Con M20] 20 meq PO DAILY AM #30 tabcr 07/18/15 01/26/19 Azopt 1 drp OU DAILY drp 09/30/15 01/26/19 latanoprost 1 drp OU HS drp 09/30/15 01/26/19 acetaminophen [Tylenol] 650 mg PO Q4H PRN PRN tab 11/25/15 01/26/19 mirtazapine [Remeron] 15 mg PO HS 03/04/16 01/26/19 multivitamin with minerals 1 tab PO DAILY 03/04/16 01/26/19 [Multiple Vitamin-Minerals] levothyroxine 75 mcg PO DAILY@0600 tab 04/13/16 01/26/19 Flovent HFA 2 puff INHALATION BID inh 05/30/16 01/26/19 furosemide 40 mg PO DAILY 10/22/16 01/26/19 cholecalciferol (vitamin D3) 1 tab PO Q30D 08/01/17 01/26/19 albuterol sulfate 3 ml IN Q4H PRN PRN 10/22/17 01/26/19 metoprolol tartrate 75 mg PO BID #270 tab-cap 11/09/17 01/26/19 Fluticasone Propionate [24 Hour 9.9 ml NS BID 12/30/17 01/26/19 Allergy] bisacodyl 10 mg LA DAILY 12/30/17 01/26/19 pantoprazole 40 mg PO BID #0 02/28/18 01/26/19 Pradaxa 150 mg PO BID #0 cap 03/02/18 01/26/19 ursodiol [Actigall] 300 mg PO BID cap 03/02/18 01/26/19 Myrbetriq 50 mg PO DAILY #30 tab 08/15/18 01/26/19 acidophilus-pectin, citrus 1 cap PO TID #90 tab 08/15/18 01/26/19 lactulose 10 g PO DAILY 10/29/18 01/26/19 lorazepam [Ativan] 0.5 mg PO BID 10/29/18 01/26/19 oxycodone 5 mg PO TID PRN 10/29/18 01/26/19 Fleet Enema 197 ml LA ONCE PRN 11/30/18 01/26/19 Narcan 4 mg INTRANASAL PRN PRN 11/30/18 01/26/19 albuterol sulfate [ProAir HFA] 2 puff INHALATION QID PRN PRN 11/30/18 01/26/19 docusate sodium [Colace] 100 mg PO BID 11/30/18 01/26/19 ondansetron 4 mg PO QID PRN 11/30/18 01/26/19 phenazopyridine [Pyridium] 100 mg PO BID 11/30/18 01/26/19 sennosides [senna] 8.6 mg PO HS 11/30/18 01/26/19 ranitidine HCl 150 mg PO BID 01/03/19 01/26/19 Previous Rx's Medication Instructions Recorded nitroglycerin [Nitrostat] 0.4 mg SUBLINGUAL Q5 MIN PRN X3 05/27/14 PRN #60 tab potassium chloride [Klor-Con M20] 20 meq PO DAILY AM #30 tabcr 07/18/15 acetaminophen [Tylenol] 650 mg PO Q4H PRN PRN tab 11/25/15 levothyroxine 75 mcg PO DAILY@0600 tab 04/13/16 Flovent HFA 2 puff INHALATION BID inh 05/30/16 metoprolol tartrate 75 mg PO BID #270 tab-cap 11/09/17 pantoprazole 40 mg PO BID #0 02/28/18 Pradaxa 150 mg PO BID #0 cap 03/02/18 ursodiol [Actigall] 300 mg PO BID cap 03/02/18 Myrbetriq 50 mg PO DAILY #30 tab 08/15/18 acidophilus-pectin, citrus 1 cap PO TID #90 tab 08/15/18 Allergies Allergy/AdvReac Type Severity Reaction Status Date / Time banana Allergy Mild Skin Rash Unverified 01/03/19 10:10 formoterol fumarate AdvReac Intermediate Ineffective Unverified 01/03/19 10:10 [From Dulera] per Pt mometasone furoate AdvReac Intermediate Ineffective Unverified 01/03/19 10:10 [From Dulera] per Pt hydrocodone AdvReac Unknown Dizziness/L Unverified 01/03/19 10:10 ightheade General Stated Complaint: Abd Prob CINTIA: 3 Review of Systems Review of Systems No fever. No vomiting. No chest pain or shortness of breath. Improving with drainage of urine. 8 systems reviewed and otherwise neg PFSH Medical History Anxiety (Chronic) Atrial fibrillation (Chronic) BPH (benign prostatic hyperplasia) (Chronic) Chronic kidney disease (CKD) (Chronic) Chronic obstructive lung disease (Chronic) Diverticulosis of large intestine without diverticulitis (Chronic) Essential hypertension (Chronic) GERD (gastroesophageal reflux disease) (Chronic) Glaucoma (Chronic) Insomnia (Chronic) Polyp of colon (Chronic) Spinal stenosis of lumbar region (Chronic) Tachycardia-bradycardia (Chronic) Surgical History Colonoscopy - MAC (Inactive) Pacemaker (Chronic) S/P TURP (Chronic) Social History Smoking/Tobacco Use Status: Former Tobacco Use Alcohol Intake: never Drug use: Never Substance use type: does not use Do you feel safe at home: Yes Do you feel safe in your relationship?: Yes Exam Narrative Exam Narrative: GEN: awake, alert, oriented 3. Pleasant, well groomed, interactive. HEAD: Normocephalic, atraumatic ENT: Mucous membranes moist, oropharynx unremarkable, External ear exam unremarkable EYES: PERRL, EOMI NECK: Full ROM, no PAULINO, no menigismus CHEST/RESP: Nontender, clear to auscultation bilateral, no wheeze/rhonchi/rales CARDIOVASCULAR: irregularly irregular, no murmur, rub stephani. 2+ Rad pulse bilateral ABDOMEN: Soft, tender in the right lower quadrant without rebound. There is suprapubic catheter in place with mild suprapubic distention. EXT: Full ROM, no edema, no rash Neuro: Grossly normal neurologic exam, conversant, interactive. Psych: Speech fluent, thoughts congruent, affect normal Course Vital Signs Temperature 36.8 C 01/26/19 11:17 Pulse 106 H 01/26/19 11:17 Respiratory Rate 14 01/26/19 11:17 Blood Pressure 138/71 01/26/19 11:17 Temperature 36.8 C 01/26/19 11:17 Temperature Source Temporal Artery Scan 01/26/19 11:17 Pulse 106 H 01/26/19 11:17 Respiratory Rate 14 01/26/19 11:17 Blood Pressure 138/71 01/26/19 11:17 Oxygen Delivery Method Room Air 01/26/19 11:17 Oxygen Flow Rate 0 01/26/19 11:17
--- NOTE | 2019-01-26 11:34 | DI.CT_ITS ---
SYMPTOMS/DIAGNOSIS: RLQ PAIN, SUPRAPUBIC CATH CT OF THE ABDOMEN AND PELVIS: Comparison is made with [id number]. Emphysematous changes are noted at the lung bases. Scarring is seen as well. There are a few small pulmonary nodules seen peripherally at the lung bases which are not definitely seen on the previous exams. No pleural or pericardial effusions or acute infiltrates are seen. Pacemaker leads a seen. The liver appears mildly enlarged and shows fatty infiltration. The patient is status post cholecystectomy. There is a small amount of air in the ducts of the left lobe of the liver, unchanged. The spleen, pancreas, kidneys and adrenals are unremarkable. There is prominent diverticulosis throughout the colon, greatest in the sigmoid. No diverticulitis, abscess, free air or free fluid is seen. There is no bowel dilatation. The prostate is again noted to be markedly enlarged. A suprapubic catheter is seen. The appearance of the bladder is unchanged, with circumferential wall thickening. Degenerative changes are noted in the spine. The aorta is calcified and normal in diameter. IMPRESSION: No acute abnormality. Severe diverticulosis without evidence of diverticulitis. Suprapubic catheter is in position. The prostate is markedly enlarged. Small amount of biliary air is stable.
[2019-01-26 11:52] LABS: Lactate 1.3 mmol/L (0.6-1.4)
[2019-01-26 12:03] LABS: Abs Immature Grans 0.04 k/cumm (0.0-0.09); Absolute Basophil Count 0.04 k/cumm (0.0-0.2); Absolute Eosinophil Count 0.23 k/cumm (0.0-0.7); Absolute Lymphocyte Count 1.37 k/cumm (1.2-3.4); Absolute Monocyte Count 0.97 k/cumm (0.11-0.7); Absolute Neutrophil Count 4.55 k/cumm (1.2-6.7); Basophils % 0.6; Eosinophils % 3.2; HCT 45.2 % (40.0-50.0); Immature Grans % 0.6; Mean Corp. HGB Concentration 33.2 g/dL (32.0-36.0); Mean Corpuscular Hemoglobin 31.1 pg (27.0-33.0); Mean Corpuscular Volume 93.6 fL (80-95); Mean Platelet Volume 10.1 fL (8.0-11.0); Monocytes % 13.5; Neutrophils % 63.1; Platelet Count 226 x1000/uL (130-400); RBC 4.83 m/cumm (4.50-6.00); RBC Distribution Width 15.5 % (11.8-14.1)
[2019-01-26 12:14] LABS: ALT 21 U/L (12-78); AST 17 U/L (15-37); Albumin 3.4 g/dL (3.4-5.0); Alkaline Phosphatase 98 U/L (46-116); Anion Gap 8.4 mmol/L (3-11); BUN 17 mg/dL (7-18); Bilirubin, Total 0.9 mg/dL (0.2-1.0); CO2 29.6 mmol/L (21.0-32.0); Chloride 103 mmol/L (98-107); Estimated GFR 44.81 (mL/min/1.73m2); Glucose 91 mg/dL (70-100); Lipase 69 U/L (73-393); Potassium 3.5 mmol/L (3.5-5.1); Sodium 141 mmol/L (136-145); Total Protein 7.4 g/dL (6.4-8.2)
[2019-01-26] MEDS: MORPHine 10 MG/ML VIAL 4 MG IVP (13:29)
[2019-01-26] MEDS: Normal Saline 250 ML IV (13:30)
[2019-01-26 14:14] VITALS: BP 115/71; PULSE 117
[2019-01-26] MEDS: Metoprolol 5 MG/5 ML VIAL IVP (14:14)
[2019-01-26 15:43] VITALS: BP 111/64; PULSE 107; RESP 16; O2SAT 97
[2019-01-26 16:14] LABS: Bilirubin Negative (Negative); Blood Trace-lysed (Negative); Clarity Clear (Clear); Glucose Negative (Negative); Ketones Negative (Negative); Leukocyte Esterase Small (Negative); Nitrite Positive (Negative); Urobilinogen 0.2 EU/dL (Up TO 0.2)
[2019-01-26 16:28] LABS: Bacteria Many HPF (Negative); C & S Indicated? Yes; Casts Negative LPF (Negative); Crystals Negative HPF (Negative); Epithelial Cells Negative HPF (Negative); Mucus Negative (Negative); WBC 20-50 HPF (0-5)
[2019-01-26 17:03] VITALS: BP 108/59; PULSE 95; RESP 16; TEMP 36.3; O2SAT 96
[2019-01-26] MEDS: Cephalexin 500 MG CAP PO (17:04)
--- NOTE | 2019-01-29 09:49 | NUR.NOTE ---
Nursing Note: Referral faxed to PCP for follow up this coming week. Stephanie Woodruff.
== END 2019-01-26 17:26 | disposition home or self-care (01) ==
PROVIDERS: Emergency Provider Emergency Medicine; PCP Family Medicine
DX: N39.0 Urinary tract infection, site not specified (principal); I12.9 Hypertensive chronic kidney disease with stage 1 through stage 4 chronic kidney disease, or unspecified chronic kidney disease; N18.9 Chronic kidney disease, unspecified; J44.9 Chronic obstructive pulmonary disease, unspecified; Z87.891 Personal history of nicotine dependence
CPT/HCPCS: 36415; 80053; 83690; 87077; 96361; 96374; 99285; 74176; 81003; 81015; 83605; 85025; 87086; 87186; 99284; J2270

== ENCOUNTER 2019-01-29 15:19 | Emergency (ER) | payer MEDICARE, MEDICAID, SELFPAY ==
[2019-01-29] VITALS (13 sets, daily range): BP systolic 109–129; BP diastolic 58–101; PULSE 63–96; RESP 16; TEMP 36.8; O2SAT 94–99
--- NOTE | 2019-01-29 15:25 | NUR.NOTE ---
Nursing Note: pt states that he has 7/10 pain LRQ pt also states that his suprapubic catheter has been draining puss thick white puss
[2019-01-29 15:41] LABS: Bilirubin Negative (Negative); Blood Trace-lysed (Negative); Clarity Clear (Clear); Glucose Negative (Negative); Ketones Negative (Negative); Leukocyte Esterase Trace (Negative); Nitrite Negative (Negative); Urobilinogen 0.2 EU/dL (Up TO 0.2); pH 5.5 (5-8)
[2019-01-29 15:54] LABS: Bacteria Few HPF (Negative); C & S Indicated? Yes; Casts 0-2 Coarse Granular LPF (Negative); Crystals Negative HPF (Negative); Epithelial Cells Negative HPF (Negative); Mucus Trace (Negative); RBC 0-2 (0-2)
[2019-01-29 16:53] LABS: Abs Immature Grans 0.04 k/cumm (0.0-0.09); Absolute Basophil Count 0.02 k/cumm (0.0-0.2); Absolute Lymphocyte Count 1.73 k/cumm (1.2-3.4); Absolute Neutrophil Count 3.56 k/cumm (1.2-6.7); Basophils % 0.3; Eosinophils % 3.1; HCT 42.4 % (40.0-50.0); HGB 14.1 g/dL (13.5-17.5); Immature Grans % 0.6; Lactate-non-spesis 1.3 mmol/l (0.6-1.4); Lymphocytes % 26.8; Mean Corp. HGB Concentration 33.3 g/dL (32.0-36.0); Mean Corpuscular Hemoglobin 30.9 pg (27.0-33.0); Mean Platelet Volume 9.5 fL (8.0-11.0); Neutrophils % 55.2; Platelet Count 199 x1000/uL (130-400); RBC 4.56 m/cumm (4.50-6.00); White Blood Cell Count 6.45 k/cumm (4.4-10.8)
[2019-01-29 17:03] LABS: Lipase 102 U/L (73-393)
[2019-01-29 17:14] LABS: ALT 11 U/L (12-78); AST 23 U/L (15-37); Albumin 3.2 g/dL (3.4-5.0); Alkaline Phosphatase 91 U/L (46-116); Anion Gap 11.4 mmol/L (3-11); BUN 21 mg/dL (7-18); Bilirubin, Total 0.6 mg/dL (0.2-1.0); CO2 26.6 mmol/L (21.0-32.0); Calcium 9.2 mg/dL (8.5-10.1); Chloride 103 mmol/L (98-107); Estimated GFR 44.81 (mL/min/1.73m2); Glucose 90 mg/dL (70-100); Potassium 3.6 mmol/L (3.5-5.1); Sodium 141 mmol/L (136-145); Total Protein 7.2 g/dL (6.4-8.2)
--- NOTE | 2019-01-29 17:34 | ED.GENADUL_ITS ---
Discharge Plan Disposition Patient Disposition: HOME Condition: Improving Discharge Details Chief Complaint: Abd Prob Clinical Impression: Acute UTI, Abdominal pain, acute, generalized Primary Care Provider: Lorena Chong ED Provider: Nikolai Robles Home Meds and New Rx's Prescriptions: New sulfamethoxazole-trimethoprim [Bactrim DS] 800-160 mg tablet 1 tab PO BID Qty: 14 RF: 0 Continued latanoprost 2.5 ML drops 1 drp OU HS RF: 0 Azopt 5 ML drops,suspension 1 drp OU DAILY RF: 0 metoprolol tartrate 50 MG tablet 75 mg PO BID Qty: 270 RF: 3 Spiriva with HandiHaler 18 MCG capsule, w/inhalation device 1 cap Inhalation DAILY RF: 0 nitroglycerin [Nitrostat] 0.4 MG tablet, sublingual 0.4 mg Sublingual Q5 MIN PRN X3 PRNQty: 60 RF: 0 potassium chloride [Klor-Con M20] 20 MEQ tablet,ER particles/crystals 20 meq PO DAILY AM Qty: 30 RF: 0 acetaminophen [Tylenol] 325 MG tablet 650 mg PO Q4H PRN PRNRF: 0 multivitamin with minerals [Multiple Vitamin-Minerals] 1 EACH tablet 1 tab PO DAILY RF: 0 mirtazapine [Remeron] 15 MG tablet 15 mg PO HS RF: 0 levothyroxine 75 MCG tablet 75 mcg PO DAILY@0600 RF: 0 cholecalciferol (vitamin D3) 1,000 UNITS tablet 1 tab PO Q30D RF: 0 bisacodyl 10 MG suppository 10 mg NV DAILY RF: 0 Fluticasone Propionate [24 Hour Allergy] 9.9 ML [place].Susp 9.9 ml NS BID RF: 0 lorazepam [Ativan] 0.5 mg Tablet 0.5 mg PO BID RF: 0 oxycodone 5 mg Tablet 5 mg PO TID PRN (Reason: Pain) RF: 0 lactulose 10 gram/15 mL Solution 10 g PO DAILY RF: 0 cephalexin 500 mg capsule 500 mg PO TID 7 Days Qty: 21 RF: 0 Flovent HFA 120 PUFF HFA aerosol inhaler 2 puff Inhalation BID RF: 0 furosemide 20 MG tablet 40 mg PO DAILY RF: 0 albuterol sulfate 2.5 MG/3 ML solution for nebulization 3 ml IN Q4H PRN PRNRF: 0 pantoprazole 40 MG tablet,delayed release (DR/EC) 40 mg PO BID Qty: 0 RF: 0 ursodiol [Actigall] 300 MG capsule 300 mg PO BID RF: 0 Pradaxa 75 MG capsule 150 mg PO BID Qty: 0 RF: 0 acidophilus-pectin, citrus 25 million cell -100 mg Tablet 1 cap PO TID Qty: 90 RF: 0 Myrbetriq 50 mg Tablet Extended Release 24 Hr 50 mg PO DAILY Qty: 30 RF: 0 sennosides [senna] 8.6 mg Tablet 8.6 mg PO HS RF: 0 phenazopyridine [Pyridium] 100 mg Tablet 100 mg PO BID RF: 0 Fleet Enema 19-7 gram/118 mL Enema 197 ml NV ONCE PRNRF: 0 docusate sodium [Colace] 100 mg Capsule 100 mg PO BID RF: 0 albuterol sulfate [ProAir HFA] 90 mcg/actuation Hfa Aerosol Inhaler 2 puff Inhalation QID PRN PRNRF: 0 ondansetron 4 mg Tablet,Disintegrating 4 mg PO QID PRNRF: 0 Narcan 4 mg/actuation [place],Non-Aerosol 4 mg Intranasal PRN PRNRF: 0 ranitidine HCl 150 mg Tablet 150 mg PO BID RF: 0 Discharge Instructions Instructions: Urinary Tract Infection in Men (ED) Additional Instructions: Please take your medication as prescribed and return immediately to the emergency department for new or change in your symptoms otherwise follow-up with your primary care provider if not improving over the next couple days. Referrals: Lorena Chong [Primary Care Provider] - (If not improving the next couple days follow-up with primary care) Discharge Data Discharge Date/Time-TO BE ENTERED AT DEPARTURE: 01/29/19 18:25 Medical Decision Making Patient presenting to the emergency department via EMS for chief complaint of abdominal pain. Patient states this is exactly the same pain that he had when he was here couple days ago it saw Dr. Frederick and diagnosed with urinary tract infection. He did inform me that Dr. Frederick called him earlier today and informed him that he may need different antibiotic but at that time he stated that he is feeling okay. Then afterwards he had something to eat and started having the pain. Patient states that this pain is around his catheter and significantly worsened over the past 4 days due to that being when they changed out his catheter. Exam shows diffuse abdominal tenderness without specific findings except for more focal tenderness in the right lower quadrant specifically above where his suprapubic catheter is. It is draining appropriately. Exam is otherwise unremarkable. Plan to recheck labs and urinalysis given patient complaining of catheter type pain and purulent drainage. Did review patient's previous records and CT scans that showed no acute findings. Given that patient complains of exact same symptoms as he had a couple days ago will delay on CT imaging pending lab results Labs are reviewed and show improvement overall from previous visit and shows no leukocytosis, mildly elevated anion gap but otherwise unremarkable CMP, UA still does show trace leukocytes and 5-10 WBCs but otherwise is improving comparatively to previous UA on 01/26. Did review urine culture from previous visit and Keflex is covering for Klebsiella but E. coli appears to be resistant. Given this patient was given Bactrim which E. coli is sensitive to. After review all labs patient's abdomen was reassessed and does report overall improvement of symptoms and less abdominal pain except for right around the catheter. Did discuss with patient repeat CT imaging but given that he has exact same symptoms as when he was here couple days ago and had no emergent findings with improvement of overall labs we agreed upon delay of CT imaging and adding Bactrim to antibiotics and patient returning for worsening symptoms. Return precautions were discussed. After discussion of diagnosis and plan of care patient has no further needs, questions, or concerns and states clear understanding to return to the emergency department for any worsening symptoms. HPI General Mode of arrival: EMS . Date/Time Provider Initiated Documentation: 01/29/19 15:25 . Limitations to Documentation: no limitations . Information obtained by: patient, RN notes reviewed and old records reviewed . History of Present Illness 83 year old M presents to the emergency department with the chief complaint of Abdominal pain around suprapubic cath, described as moderate and similar to prior episodes, with intensity rated at 7. Quality is described as aching and sharp, and is localized to the abdomen. Patient started experiencing this week(s) (2) and it has been constant. Related Data Home Medications Medication Instructions Recorded Confirmed Spiriva with HandiHaler 1 cap INHALATION DAILY 11/08/12 01/29/19 nitroglycerin [Nitrostat] 0.4 mg SUBLINGUAL Q5 MIN PRN X3 05/27/14 01/29/19 PRN #60 tab potassium chloride [Klor-Con M20] 20 meq PO DAILY AM #30 tabcr 07/18/15 01/29/19 Azopt 1 drp OU DAILY drp 09/30/15 01/29/19 latanoprost 1 drp OU HS drp 09/30/15 01/29/19 acetaminophen [Tylenol] 650 mg PO Q4H PRN PRN tab 11/25/15 01/29/19 mirtazapine [Remeron] 15 mg PO HS 03/04/16 01/29/19 multivitamin with minerals 1 tab PO DAILY 03/04/16 01/29/19 [Multiple Vitamin-Minerals] levothyroxine 75 mcg PO DAILY@0600 tab 04/13/16 01/29/19 Flovent HFA 2 puff INHALATION BID inh 05/30/16 01/29/19 furosemide 40 mg PO DAILY 10/22/16 01/29/19 cholecalciferol (vitamin D3) 1 tab PO Q30D 08/01/17 01/29/19 albuterol sulfate 3 ml IN Q4H PRN PRN 10/22/17 01/29/19 metoprolol tartrate 75 mg PO BID #270 tab-cap 11/09/17 01/29/19 Fluticasone Propionate [24 Hour 9.9 ml NS BID 12/30/17 01/29/19 Allergy] bisacodyl 10 mg NV DAILY 12/30/17 01/29/19 pantoprazole 40 mg PO BID #0 02/28/18 01/29/19 Pradaxa 150 mg PO BID #0 cap 03/02/18 01/29/19 ursodiol [Actigall] 300 mg PO BID cap 03/02/18 01/29/19 Myrbetriq 50 mg PO DAILY #30 tab 08/15/18 01/29/19 acidophilus-pectin, citrus 1 cap PO TID #90 tab 08/15/18 01/29/19 lactulose 10 g PO DAILY 10/29/18 01/29/19 lorazepam [Ativan] 0.5 mg PO BID 10/29/18 01/29/19 oxycodone 5 mg PO TID PRN 10/29/18 01/29/19 Fleet Enema 197 ml NV ONCE PRN 11/30/18 01/29/19 Narcan 4 mg INTRANASAL PRN PRN 11/30/18 01/29/19 albuterol sulfate [ProAir HFA] 2 puff INHALATION QID PRN PRN 11/30/18 01/29/19 docusate sodium [Colace] 100 mg PO BID 11/30/18 01/29/19 ondansetron 4 mg PO QID PRN 11/30/18 01/29/19 phenazopyridine [Pyridium] 100 mg PO BID 11/30/18 01/29/19 sennosides [senna] 8.6 mg PO HS 11/30/18 01/29/19 ranitidine HCl 150 mg PO BID 01/03/19 01/29/19 cephalexin 500 mg PO TID 7 Days #21 cap 01/26/19 01/29/19 sulfamethoxazole-trimethoprim 1 tab PO BID #14 tab 01/29/19 [Bactrim DS] Previous Rx's Medication Instructions Recorded nitroglycerin [Nitrostat] 0.4 mg SUBLINGUAL Q5 MIN PRN X3 05/27/14 PRN #60 tab potassium chloride [Klor-Con M20] 20 meq PO DAILY AM #30 tabcr 07/18/15 acetaminophen [Tylenol] 650 mg PO Q4H PRN PRN tab 11/25/15 levothyroxine 75 mcg PO DAILY@0600 tab 04/13/16 Flovent HFA 2 puff INHALATION BID inh 05/30/16 metoprolol tartrate 75 mg PO BID #270 tab-cap 11/09/17 pantoprazole 40 mg PO BID #0 02/28/18 Pradaxa 150 mg PO BID #0 cap 03/02/18 ursodiol [Actigall] 300 mg PO BID cap 03/02/18 Myrbetriq 50 mg PO DAILY #30 tab 08/15/18 acidophilus-pectin, citrus 1 cap PO TID #90 tab 08/15/18 cephalexin 500 mg PO TID 7 Days #21 cap 01/26/19 sulfamethoxazole-trimethoprim 1 tab PO BID #14 tab 01/29/19 [Bactrim DS] Allergies Allergy/AdvReac Type Severity Reaction Status Date / Time banana Allergy Mild Skin Rash Unverified 01/29/19 15:25 formoterol fumarate AdvReac Intermediate Ineffective Unverified 01/29/19 15:25 [From Dulera] per Pt mometasone furoate AdvReac Intermediate Ineffective Unverified 01/29/19 15:25 [From Dulera] per Pt hydrocodone AdvReac Unknown Dizziness/L Unverified 01/29/19 15:25 ightheade General Stated Complaint: Abd Prob CINTIA: 3 Review of Systems Constitutional Denies chills, Denies fever(s) and Reports poor appetite Cardiovascular Denies chest pain and Denies dyspnea Respiratory Denies cough and Denies dyspnea Gastrointestinal Reports as per HPI, Reports abdominal pain, Denies melena, Denies change in bowel habits, Denies constipation, Denies diarrhea, Denies nausea and Denies vomiting Genitourinary Reports as per HPI, Denies flank pain and Reports other (Suprapubic catheter drainage) Integumentary/Breasts Denies rash PFSH Medical History Anxiety (Chronic) Atrial fibrillation (Chronic) BPH (benign prostatic hyperplasia) (Chronic) Chronic kidney disease (CKD) (Chronic) Chronic obstructive lung disease (Chronic) Diverticulosis of large intestine without diverticulitis (Chronic) Essential hypertension (Chronic) GERD (gastroesophageal reflux disease) (Chronic) Glaucoma (Chronic) Insomnia (Chronic) Polyp of colon (Chronic) Spinal stenosis of lumbar region (Chronic) Tachycardia-bradycardia (Chronic) Surgical History Colonoscopy - MAC (Inactive) Pacemaker (Chronic) S/P TURP (Chronic) Social History Smoking/Tobacco Use Status: Former Tobacco Use Alcohol Intake: never Drug use: Never Substance use type: does not use Do you feel safe at home: Yes Do you feel safe in your relationship?: Yes Exam Const General: cooperative Orientation: alert, awake and oriented x3 Resp Effort & Inspection: normal respiratory effort and able to speak in complete sentences Auscultation: clear to auscultation bilaterally Cardio Rate: regular rate Rhythm: regular rhythm Heart Sounds: S1 normal and S2 normal GI Inspection: obesity Palpation: soft, no hepatosplenomegaly, not firm, no guarding, no masses, no pulsatile masses, not rigid, no splenomegaly and tender in the RLQ (near catheter) and other (Otherwise mild diffuse non-focal); not at McBurney's point and Aggarwal's sign negative Auscultation: normal bowel sounds Back/Spine/Pelvis Back: no CVA tenderness Neuro General: alert, awake, oriented x3, gait normal and moves all extremities Course Vital Signs Temperature 36.8 C 01/29/19 15:27 Pulse 78 01/29/19 15:27 Respiratory Rate 16 01/29/19 15:27 Blood Pressure 129/59 L 01/29/19 15:27 Pulse Oximetry 97 01/29/19 15:27 Temperature 36.8 C 01/29/19 15:27 Temperature Source Skin 01/29/19 15:27 Pulse 78 01/29/19 15:27 Respiratory Rate 16 01/29/19 15:27 Respiratory Effort 01/29/19 15:28 Blood Pressure 129/59 L 01/29/19 15:27 Blood Pressure Position Sitting 01/29/19 15:27 Pulse Oximetry 97 01/29/19 15:27 Oxygen Delivery Method Room Air 01/29/19 15:27 Oxygen Flow Rate 0 01/29/19 15:27 Pain Level 7 01/29/19 15:27 Lab/Test Results Lab/Test Results: 01/29/19 15:36 Urine - Reflex from Ua Urine Culture - Pending Laboratory Tests Range/Units 01/29/19 01/29/19 01/29/19 15:36 16:41 16:41 WBC (4.4-10.8) k/cumm RBC (4.50-6.00) m/cumm Hgb (13.5-17.5) g/dL Hct (40.0-50.0) % MCV (80-95) fL MCH (27.0-33.0) pg MCHC (32.0-36.0) g/dL RDW (11.8-14.1) % Plt Count (130-400) x1000/uL MPV (8.0-11.0) fL Immature Gran % Neutrophils % Lymphocytes % Monocytes % Eosinophils % Basophils % Absolute Neutrophils (1.2-6.7) k/cumm Absolute Lymphocytes (1.2-3.4) k/cumm Absolute Monocytes (0.11-0.7) k/cumm Absolute Eosinophils (0.0-0.7) k/cumm Absolute Basophils (0.0-0.2) k/cumm Sodium (136-145) mmol/L 141 Potassium (3.5-5.1) mmol/L 3.6 Chloride (98-107) mmol/L 103 Carbon Dioxide (21.0-32.0) mmol/L 26.6 Anion Gap (3-11) mmol/L 11.4 H BUN (7-18) mg/dL 21 H Creatinine (0.70-1.30) mg/dL 1.50 H Estimated GFR/1.73 m2 (mL/min/1.73m2) 44.81 Glucose (70-100) mg/dL 90 Lactate (0.6-1.4) mmol/l 1.3 Calcium (8.5-10.1) mg/dL 9.2 Total Bilirubin (0.2-1.0) mg/dL 0.6 AST (15-37) U/L 23 ALT (12-78) U/L 11 L Alkaline Phosphatase (46-116) U/L 91 Total Protein (6.4-8.2) g/dL 7.2 Albumin (3.4-5.0) g/dL 3.2 L Lipase (73-393) U/L Urine Color (Yellow) Yellow Urine Clarity (Clear) Clear Urine pH (5-8) 5.5 Ur Specific [place] (1.005-1.025) 1.010 Urine Protein (Negative) mg/dL Negative Urine Ketones (Negative) mg/dL Negative Urine Blood (Negative) Trace-lysed H Urine Nitrite (Negative) Negative Urine Bilirubin (Negative) Negative Urine Urobilinogen (Up TO 0.2) EU/dL 0.2 Ur Leukocyte Esterase (Negative) Trace H Urine RBC (0-2) 0-2 Urine WBC (0-5) HPF 5-10 Ur Epithelial Cells (Negative) HPF Negative Urine Crystals (Negative) HPF Negative Urine Bacteria (Negative) HPF Few Urine Casts (Negative) LPF 0-2 coarse granular Urine Mucus (Negative) Trace Ur Culture Indicated? Yes Urine Glucose (Negative) mg/dL Negative Range/Units 01/29/19 01/29/19 16:41 16:41 WBC (4.4-10.8) k/cumm 6.45 RBC (4.50-6.00) m/cumm 4.56 Hgb (13.5-17.5) g/dL 14.1 Hct (40.0-50.0) % 42.4 MCV (80-95) fL 93.0 MCH (27.0-33.0) pg 30.9 MCHC (32.0-36.0) g/dL 33.3 RDW (11.8-14.1) % 15.0 H Plt Count (130-400) x1000/uL 199 MPV (8.0-11.0) fL 9.5 Immature Gran % 0.6 Neutrophils % 55.2 Lymphocytes % 26.8 Monocytes % 14.0 Eosinophils % 3.1 Basophils % 0.3 Absolute Neutrophils (1.2-6.7) k/cumm 3.56 Absolute Lymphocytes (1.2-3.4) k/cumm 1.73 Absolute Monocytes (0.11-0.7) k/cumm 0.90 H Absolute Eosinophils (0.0-0.7) k/cumm 0.20 Absolute Basophils (0.0-0.2) k/cumm 0.02 Sodium (136-145) mmol/L Potassium (3.5-5.1) mmol/L Chloride (98-107) mmol/L Carbon Dioxide (21.0-32.0) mmol/L Anion Gap (3-11) mmol/L BUN (7-18) mg/dL Creatinine (0.70-1.30) mg/dL Estimated GFR/1.73 m2 (mL/min/1.73m2) Glucose (70-100) mg/dL Lactate (0.6-1.4) mmol/l Calcium (8.5-10.1) mg/dL Total Bilirubin (0.2-1.0) mg/dL AST (15-37) U/L ALT (12-78) U/L Alkaline Phosphatase (46-116) U/L Total Protein (6.4-8.2) g/dL Albumin (3.4-5.0) g/dL Lipase (73-393) U/L 102 Urine Color (Yellow) Urine Clarity (Clear) Urine pH (5-8) Ur Specific [place] (1.005-1.025) Urine Protein (Negative) mg/dL Urine Ketones (Negative) mg/dL Urine Blood (Negative) Urine Nitrite (Negative) Urine Bilirubin (Negative) Urine Urobilinogen (Up TO 0.2) EU/dL Ur Leukocyte Esterase (Negative) Urine RBC (0-2) Urine WBC (0-5) HPF Ur Epithelial Cells (Negative) HPF Urine Crystals (Negative) HPF Urine Bacteria (Negative) HPF Urine Casts (Negative) LPF Urine Mucus (Negative) Ur Culture Indicated? Urine Glucose (Negative) mg/dL
[2019-01-29] MEDS: Sulfameth/Trimeth DS TAB 1 TAB PO (17:35)
== END 2019-01-29 18:25 | disposition home or self-care (01) ==
PROVIDERS: Emergency Provider Nurse Practitioner Family; PCP Family Medicine
DX: N39.0 Urinary tract infection, site not specified (principal); Z96.0 Presence of urogenital implants; I12.9 Hypertensive chronic kidney disease with stage 1 through stage 4 chronic kidney disease, or unspecified chronic kidney disease; N18.9 Chronic kidney disease, unspecified; R10.84 Generalized abdominal pain
CPT/HCPCS: 36415; 80053; 83690; 99283; 81003; 81015; 83605; 85025; 87086

== ENCOUNTER 2019-04-27 11:22 | Emergency (ER) | payer MEDICARE, MEDICAID, SELFPAY ==
[2019-04-27] VITALS (16 sets, daily range): BP systolic 117–130; BP diastolic 61–70; PULSE 70–103; RESP 11–24; TEMP 36.6–36.9; O2SAT 94–99
--- NOTE | 2019-04-27 11:45 | DI.CT_ITS ---
EXAM: CT THORAX ABD/PEL CTA CLINICAL HISTORY: chest pain and abdominal pain, ?dissection TECHNIQUE: CT angiography of the chest abdomen and pelvis was performed with bolus infusion of 69 cc of Omnipaque 350. Axial CT angiography was performed with multi-slice acquisition and multi-planar and/or 3D reconstruc tions. COMPARISON: CT ABDOMEN PELVIS WO from 01/26/2019 FINDINGS: Note is made of a cardiac pacemaker with lead tips in the right ventricle. The thoracic aorta is of normal diameter and major branches appear intact. No evidence of dissection. No major embolus iden tified in the pulmonary arterial circulation which is not ideally opacified. No mediastinal mass or adenopathy. Tracheobronchial tree appears intact. Diffuse centrilobular emphysema with multiple ble bs noted and subpleural emphysema noted as well. No focal consolidation, mass or pleural effusion. Liver, spleen and pancreas are unremarkable in appearance with incidental previously noted gas in judah iary tree post cholecystectomy. No biliary dilatation. No significant abdominal or pelvic adenopath y. Small bilateral fat containing inguinal hernias noted. Kang catheter noted in place in the urin stephani bladder. No abdominal aortic aneurysm. Calcified atheromatous plaque noted throughout the abdominal aorta. M ajor visceral branches appear patent. 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 No gross abdominal or pelvic adenopathy. No evidence of bowel obstruction. Marked colonic diverticu losis noted. Question mild colonic wall edema, this is difficult to evaluate due to lack of colonic contents but the possibility of colitis is raised, please correlate clinically. IMPRESSION: No evidence of aortic dissection or aneurysm. 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 Findings raising the possibility of colitis, please correlate clinically.
--- NOTE | 2019-04-27 11:47 | ED.GENADUL_ITS ---
Discharge Plan Disposition Patient Disposition: HOME Condition: Stable Discharge Details Chief Complaint: Chest Pain Clinical Impression: Chest pain Primary Care Provider: Lorena Chong ED Provider: Geovany Valencia Home Meds and New Rx's Prescriptions: Continued latanoprost 2.5 ML drops 1 drp OU HS RF: 0 Azopt 5 ML drops,suspension 1 drp OU DAILY RF: 0 metoprolol tartrate 50 MG tablet 75 mg PO BID Qty: 270 RF: 3 Spiriva with HandiHaler 18 MCG capsule, w/inhalation device 1 cap Inhalation DAILY RF: 0 nitroglycerin [Nitrostat] 0.4 MG tablet, sublingual 0.4 mg Sublingual Q5 MIN PRN X3 PRNQty: 60 RF: 0 potassium chloride [Klor-Con M20] 20 MEQ tablet,ER particles/crystals 20 meq PO DAILY AM Qty: 30 RF: 0 acetaminophen [Tylenol] 325 MG tablet 650 mg PO Q4H PRN PRNRF: 0 multivitamin with minerals [Multiple Vitamin-Minerals] 1 EACH tablet 1 tab PO DAILY RF: 0 mirtazapine [Remeron] 15 MG tablet 15 mg PO HS RF: 0 levothyroxine 75 MCG tablet 75 mcg PO DAILY@0600 RF: 0 cholecalciferol (vitamin D3) 1,000 UNITS tablet 1 tab PO Q30D RF: 0 bisacodyl 10 MG suppository 10 mg ID DAILY RF: 0 Fluticasone Propionate [24 Hour Allergy] 9.9 ML [place].Susp 9.9 ml NS BID RF: 0 lorazepam [Ativan] 0.5 mg Tablet 0.5 mg PO BID RF: 0 oxycodone 5 mg Tablet 5 mg PO TID PRN (Reason: Pain) RF: 0 lactulose 10 gram/15 mL Solution 10 g PO DAILY RF: 0 Flovent HFA 120 PUFF HFA aerosol inhaler 2 puff Inhalation BID RF: 0 furosemide 20 MG tablet 40 mg PO DAILY RF: 0 albuterol sulfate 2.5 MG/3 ML solution for nebulization 3 ml IN Q4H PRN PRNRF: 0 pantoprazole 40 MG tablet,delayed release (DR/EC) 40 mg PO BID Qty: 0 RF: 0 ursodiol [Actigall] 300 MG capsule 300 mg PO BID RF: 0 Pradaxa 75 MG capsule 150 mg PO BID Qty: 0 RF: 0 acidophilus-pectin, citrus 25 million cell -100 mg Tablet 1 cap PO TID Qty: 90 RF: 0 Myrbetriq 50 mg Tablet Extended Release 24 Hr 50 mg PO DAILY Qty: 30 RF: 0 sennosides [senna] 8.6 mg Tablet 8.6 mg PO HS RF: 0 phenazopyridine [Pyridium] 100 mg Tablet 100 mg PO BID RF: 0 Fleet Enema 19-7 gram/118 mL Enema 197 ml ID ONCE PRNRF: 0 docusate sodium [Colace] 100 mg Capsule 100 mg PO BID RF: 0 albuterol sulfate [ProAir HFA] 90 mcg/actuation Hfa Aerosol Inhaler 2 puff Inhalation QID PRN PRNRF: 0 ondansetron 4 mg Tablet,Disintegrating 4 mg PO QID PRNRF: 0 Narcan 4 mg/actuation [place],Non-Aerosol 4 mg Intranasal PRN PRNRF: 0 ranitidine HCl 150 mg Tablet 150 mg PO BID RF: 0 sulfamethoxazole-trimethoprim [Bactrim DS] 800-160 mg tablet 1 tab PO BID Qty: 14 RF: 0 Discharge Instructions Instructions: Chest Pain (ED) Additional Instructions: follow up with your primary care provider within 1 week if you have worsening symptoms, feel more ill or have difficulty breathing return to the emergency department Medical Decision Making 84 yo male with hx of multiple medical problems including afib comes in with chest pain and abdominal pain since 5am this mrdomenico. Denies any falls, trauma or dyspnea. He was given morphine by home health nurse and sent here. He currently seems comfortable and localizes the pain to the left chest and has pain with palpation to the luq and left lower chest. DHas clear lungs and normal vascular exam. Could be chest wall pain but will evaluate for acs, pe and dissection with lab work and ct imaging pt remains stable, on reassessment his complaint is he is hungry and wants food. Only has pain when I push on 5-6 ribs in lateral clavicular line. No acute process on imaging or lab work. Given over 4 hours of symptoms do not feel repeat trponin indicated. Will d/c and advised f/u with pcp, return precautions given. There was question of colitis on CT but has no diarrhea or other symptoms to suggest this on history and exam Medical Records Medical records reviewed: Yes I reviewed the patient's medical records. Lab Data Lab results reviewed: Yes I reviewed the patient's lab results. ECG Data Attestation: I personally reviewed and interpreted this ECG (s) as follows: Prior ECG tracings: not available for review Interpretation: afib, rate of 96, qtc 473, no acute st t wave ischemic findings HPI General Mode of arrival: ambulatory . Date/Time Provider Initiated Documentation: 04/27/19 11:23 . Limitations to Documentation: no limitations . Information obtained by: patient . History of Present Illness 84 year old M presents to the emergency department with the chief complaint of chest pain, described as moderate, Patient started experiencing this hour(s) (6) No relieving factors improve symptom(s), No exacerbating factors reported . R elated Data Home Medications Medication Instructions Recorded Confirmed Spiriva with HandiHaler 1 cap INHALATION DAILY 11/08/12 01/29/19 nitroglycerin [Nitrostat] 0.4 mg SUBLINGUAL Q5 MIN PRN X3 05/27/14 01/29/19 PRN #60 tab potassium chloride [Klor-Con M20] 20 meq PO DAILY AM #30 tabcr 07/18/15 01/29/19 Azopt 1 drp OU DAILY drp 09/30/15 01/29/19 latanoprost 1 drp OU HS drp 09/30/15 01/29/19 acetaminophen [Tylenol] 650 mg PO Q4H PRN PRN tab 11/25/15 01/29/19 mirtazapine [Remeron] 15 mg PO HS 03/04/16 01/29/19 multivitamin with minerals 1 tab PO DAILY 03/04/16 01/29/19 [Multiple Vitamin-Minerals] levothyroxine 75 mcg PO DAILY@0600 tab 04/13/16 01/29/19 Flovent HFA 2 puff INHALATION BID inh 05/30/16 01/29/19 furosemide 40 mg PO DAILY 10/22/16 01/29/19 cholecalciferol (vitamin D3) 1 tab PO Q30D 08/01/17 01/29/19 albuterol sulfate 3 ml IN Q4H PRN PRN 10/22/17 01/29/19 metoprolol tartrate 75 mg PO BID #270 tab-cap 11/09/17 01/29/19 Fluticasone Propionate [24 Hour 9.9 ml NS BID 12/30/17 01/29/19 Allergy] bisacodyl 10 mg ID DAILY 12/30/17 01/29/19 pantoprazole 40 mg PO BID #0 02/28/18 01/29/19 Pradaxa 150 mg PO BID #0 cap 03/02/18 01/29/19 ursodiol [Actigall] 300 mg PO BID cap 03/02/18 01/29/19 Myrbetriq 50 mg PO DAILY #30 tab 08/15/18 01/29/19 acidophilus-pectin, citrus 1 cap PO TID #90 tab 08/15/18 01/29/19 lactulose 10 g PO DAILY 10/29/18 01/29/19 lorazepam [Ativan] 0.5 mg PO BID 10/29/18 01/29/19 oxycodone 5 mg PO TID PRN 10/29/18 01/29/19 Fleet Enema 197 ml ID ONCE PRN 11/30/18 01/29/19 Narcan 4 mg INTRANASAL PRN PRN 11/30/18 01/29/19 albuterol sulfate [ProAir HFA] 2 puff INHALATION QID PRN PRN 11/30/18 01/29/19 docusate sodium [Colace] 100 mg PO BID 11/30/18 01/29/19 ondansetron 4 mg PO QID PRN 11/30/18 01/29/19 phenazopyridine [Pyridium] 100 mg PO BID 11/30/18 01/29/19 sennosides [senna] 8.6 mg PO HS 11/30/18 01/29/19 ranitidine HCl 150 mg PO BID 01/03/19 01/29/19 sulfamethoxazole-trimethoprim 1 tab PO BID #14 tab 01/29/19 [Bactrim DS] Previous Rx's Medication Instructions Recorded nitroglycerin [Nitrostat] 0.4 mg SUBLINGUAL Q5 MIN PRN X3 05/27/14 PRN #60 tab potassium chloride [Klor-Con M20] 20 meq PO DAILY AM #30 tabcr 07/18/15 acetaminophen [Tylenol] 650 mg PO Q4H PRN PRN tab 11/25/15 levothyroxine 75 mcg PO DAILY@0600 tab 04/13/16 Flovent HFA 2 puff INHALATION BID inh 05/30/16 metoprolol tartrate 75 mg PO BID #270 tab-cap 11/09/17 pantoprazole 40 mg PO BID #0 02/28/18 Pradaxa 150 mg PO BID #0 cap 03/02/18 ursodiol [Actigall] 300 mg PO BID cap 03/02/18 Myrbetriq 50 mg PO DAILY #30 tab 08/15/18 acidophilus-pectin, citrus 1 cap PO TID #90 tab 08/15/18 sulfamethoxazole-trimethoprim 1 tab PO BID #14 tab 01/29/19 [Bactrim DS] Allergies Allergy/AdvReac Type Severity Reaction Status Date / Time banana Allergy Mild Skin Rash Unverified 04/27/19 11:36 formoterol fumarate AdvReac Intermediate Ineffective Unverified 04/27/19 11:36 [From Dulera] per Pt mometasone furoate AdvReac Intermediate Ineffective Unverified 04/27/19 11:36 [From Dulera] per Pt hydrocodone AdvReac Unknown Dizziness/L Unverified 04/27/19 11:36 ightheade General Stated Complaint: Chest Pain CINTIA: 2 Review of Systems All systems reviewed & are unremarkable except as noted in HPI and below Constitutional Constitutional: Denies chills, Denies fever(s) and Denies weakness Eyes Eyes: Denies loss of vision ENT Ears, Nose, Mouth, and Throat: Denies change in voice Cardiovascular Cardiovascular: Denies dyspnea Respiratory Respiratory: Denies cough and Denies dyspnea Gastrointestinal Gastrointestinal: Denies nausea and Denies vomiting Genitourinary Genitourinary: Denies dysuria Musculoskeletal Musculoskeletal: Denies joint swelling Integumentary/Breasts Skin/Breast: Denies rash Neurologic Neurologic: Denies loss of vision and Denies weakness Psychiatric Psychiatric: Denies depression Endocrine Endocrine: Denies cold intolerance and Denies heat intolerance Allergic/Immunologic Allergic/Immunologic: Denies urticaria PFSH Social History Smoking/Tobacco Use Status: Former Tobacco Use Alcohol Intake: former Drug use: Never Substance use type: does not use Do you feel safe at home: Yes Do you feel safe in your relationship?: Yes Exam Const General: no acute distress Orientation: alert HENMT Head: normal to inspection Ears: external ears normal General nose exam: external nose normal Mouth: moist mucous membranes Eyes General: appearance normal, both eyes and all related structures Neck Neck: normal visual inspection Resp Effort & Inspection: normal respiratory effort and able to speak in complete sentences Cardio Jugular venous pressure: no JVD Skin General skin exam: no rashes or lesions noted Neuro General: alert and oriented x3 Extrem General: normal to inspection Psych Mental Status: mental status grossly normal Course Vital Signs Vital signs: Vital Signs Temperature 36.9 C 04/27/19 11:30 Pulse 93 H 04/27/19 11:30 Respiratory Rate 18 04/27/19 11:30 Blood Pressure 130/70 04/27/19 11:30 Pulse Oximetry 98 04/27/19 11:30 Temperature 36.9 C 04/27/19 11:30 Temperature Source Temporal Artery Scan 04/27/19 11:30 Pulse 93 H 04/27/19 11:30 Respiratory Rate 18 04/27/19 11:30 Respiratory Effort Non-Labored 04/27/19 11:34 Blood Pressure 130/70 04/27/19 11:30 Blood Pressure Position Supine 04/27/19 11:30 Pulse Oximetry 98 04/27/19 11:30 Oxygen Delivery Method Room Air 04/27/19 11:30 Oxygen Flow Rate 0 04/27/19 11:30 Pain Level 6 04/27/19 11:30
[2019-04-27 12:01] LABS: Abs Immature Grans 0.04 k/cumm (0.0-0.09); Absolute Basophil Count 0.02 k/cumm (0.0-0.2); Absolute Eosinophil Count 0.12 k/cumm (0.0-0.7); Absolute Lymphocyte Count 1.55 k/cumm (1.2-3.4); Absolute Monocyte Count 0.78 k/cumm (0.11-0.7); Absolute Neutrophil Count 3.76 k/cumm (1.2-6.7); Basophils % 0.3; Eosinophils % 1.9; HCT 45.7 % (40.0-50.0); HGB 15.1 g/dL (13.5-17.5); Immature Grans % 0.6; Lymphocytes % 24.7; Mean Corpuscular Hemoglobin 31.7 pg (27.0-33.0); Mean Platelet Volume 9.6 fL (8.0-11.0); Monocytes % 12.4; Neutrophils % 60.1; Platelet Count 213 x1000/uL (130-400); RBC 4.76 m/cumm (4.50-6.00); White Blood Cell Count 6.27 k/cumm (4.4-10.8)
[2019-04-27 12:07] LABS: INR 1.3 (0.9-1.1); Prothrombin Time 13.3 sec (9.3-11.0)
[2019-04-27] MEDS: Omnipaque 350 MG/ML 100 ML BTL IJ (12:18)
[2019-04-27] MEDS: Acetaminophen 500 MG TAB 1000 MG PO (12:53)
[2019-04-27 13:11] LABS: ALT 25 U/L (16-63); AST 25 U/L (15-37); Albumin 3.1 g/dL (3.4-5.0); Alkaline Phosphatase 78 U/L (46-116); Anion Gap 8.8 mmol/L (3-11); BUN 30 mg/dL (7-18); Bilirubin, Total 0.5 mg/dL (0.2-1.0); CO2 27.2 mmol/L (21.0-32.0); CREATININE 1.94 mg/dL (0.70-1.30); Calcium 8.3 mg/dL (8.5-10.1); Chloride 103 mmol/L (98-107); Estimated GFR 33.22 (mL/min/1.73m2); Glucose 97 mg/dL (70-100); Lipase 92 U/L (73-393); NT-proBNP 2783 pg/mL; Potassium 4.1 mmol/L (3.5-5.1); Sodium 139 mmol/L (136-145); Total Protein 6.1 g/dL (6.4-8.2)
[2019-04-27 13:15] LABS: Troponin I < 0.05 ng/mL (0.00-0.06)
--- NOTE | 2019-04-27 13:39 | NUR.NOTE ---
pt provided with meal tray Nursing Note:
[2019-04-27] MEDS: Lidocaine 5% Patch 1 PATCH (13:55)
== END 2019-04-27 14:04 | disposition home or self-care (01) ==
PROVIDERS: Emergency Provider Emergency Medicine; PCP Family Medicine
DX: R07.9 Chest pain, unspecified (principal); I10 Essential (primary) hypertension; J44.9 Chronic obstructive pulmonary disease, unspecified; Z95.0 Presence of cardiac pacemaker; Z87.891 Personal history of nicotine dependence
CPT/HCPCS: 36415; 71275; 74177; 80053; 83690; 93005; 99285; 83880; 84484; 85025; 85610; 85730; 93010; J3490

== ENCOUNTER 2019-06-08 10:34 | Emergency (ER) | payer MEDICARE, MEDICAID, SELFPAY ==
[2019-06-08] VITALS (39 sets, daily range): BP systolic 110–140; BP diastolic 54–82; PULSE 53–120; RESP 12–32; TEMP 36.9; O2SAT 92–96
[2019-06-08 10:51] LABS: Abs Immature Grans 0.03 k/cumm (0.0-0.09); Absolute Basophil Count 0.03 k/cumm (0.0-0.2); Absolute Eosinophil Count 0.16 k/cumm (0.0-0.7); Absolute Lymphocyte Count 2.17 k/cumm (1.2-3.4); Absolute Monocyte Count 1.24 k/cumm (0.11-0.7); Absolute Neutrophil Count 3.68 k/cumm (1.2-6.7); Basophils % 0.4; Eosinophils % 2.2; HCT 43.1 % (40.0-50.0); HGB 14.3 g/dL (13.5-17.5); Immature Grans % 0.4; Lymphocytes % 29.7; Mean Corp. HGB Concentration 33.2 g/dL (32.0-36.0); Mean Corpuscular Hemoglobin 32.5 pg (27.0-33.0); Neutrophils % 50.3; Platelet Count 219 x1000/uL (130-400); RBC Distribution Width 15.4 % (11.8-14.1); White Blood Cell Count 7.31 k/cumm (4.4-10.8)
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
[2019-06-08] MEDS: Ondansetron 4 MG/2 ML VIAL (10:57)
[2019-06-08] MEDS: Lidocaine 5% Patch 1 PATCH TP (10:59)
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
[2019-06-08 11:12] LABS: ALT 20 U/L (16-63); AST 23 U/L (15-37); Albumin 3.4 g/dL (3.4-5.0); Alkaline Phosphatase 93 U/L (46-116); Anion Gap 7.7 mmol/L (3-11); BUN 21 mg/dL (7-18); Bilirubin, Total 0.8 mg/dL (0.2-1.0); CO2 28.3 mmol/L (21.0-32.0); Calcium 9.1 mg/dL (8.5-10.1); Chloride 106 mmol/L (98-107); Estimated GFR 44.69 (mL/min/1.73m2); Glucose 102 mg/dL (74-106); Lipase 85 U/L (73-393); NT-proBNP 2787 pg/mL (<300); Potassium 4.3 mmol/L (3.5-5.1); Sodium 142 mmol/L (136-145)
[2019-06-08 11:14] LABS: INR 1.2 (0.9-1.1); PTT Activated 33.6 sec (21.0-31.4); Prothrombin Time 12.2 sec (9.3-11.0)
[2019-06-08 11:17] LABS: Troponin I < 0.05 ng/Ml (<0.06)
[2019-06-08] MEDS: Normal Saline 500 ML IV (12:50)
[2019-06-08] MEDS: Metoclopramide 10 MG/2 ML VIAL IVP (12:55)
[2019-06-08 14:13] LABS: Troponin I < 0.05 ng/Ml (<0.06)
== END 2019-06-08 15:13 | disposition skilled nursing facility (03) ==
PROVIDERS: Emergency Provider Student in an Organized Health Care Education/Training Program; PCP Family Medicine
DX: R62.7 Adult failure to thrive (principal); R07.81 Pleurodynia; R06.02 Shortness of breath; I51.7 Cardiomegaly; Z95.0 Presence of cardiac pacemaker; I48.91 Unspecified atrial fibrillation; Z79.01 Long term (current) use of anticoagulants; J44.9 Chronic obstructive pulmonary disease, unspecified; I10 Essential (primary) hypertension; Z87.891 Personal history of nicotine dependence
CPT/HCPCS: 36415; 80053; 83690; 93005; 96361; 96374; 96375; 99285; 71045; 83880; 84484; 85025; 85610; 85730; 93010; 99284; J2405; J2765

== ENCOUNTER 2019-07-21 13:12 | Emergency (ER) | payer MEDICARE, MEDICAID, SELFPAY ==
[2019-07-21] VITALS (19 sets, daily range): BP systolic 111–128; BP diastolic 50–108; PULSE 58–152; RESP 10–23; TEMP 36.6; O2SAT 93–99
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
[2019-07-21 13:34] LABS: Abs Immature Grans 0.04 k/cumm (0.0-0.09); Absolute Basophil Count 0.04 k/cumm (0.0-0.2); Absolute Eosinophil Count 0.09 k/cumm (0.0-0.7); Absolute Lymphocyte Count 1.66 k/cumm (1.2-3.4); Absolute Neutrophil Count 4.82 k/cumm (1.2-6.7); Basophils % 0.5; Eosinophils % 1.2; HCT 44.3 % (40.0-50.0); HGB 14.5 g/dL (13.5-17.5); Immature Grans % 0.5 %; Mean Corp. HGB Concentration 32.7 g/dL (32.0-36.0); Mean Corpuscular Hemoglobin 31.8 pg (27.0-33.0); Mean Corpuscular Volume 97.1 fL (80-95); Mean Platelet Volume 9.8 fL (8.0-11.0); Monocytes % 11.9; Neutrophils % 63.9; Platelet Count 236 x1000/uL (130-400); RBC 4.56 m/cumm (4.50-6.00); RBC Distribution Width 15.1 % (11.8-14.1); White Blood Cell Count 7.55 k/cumm (4.4-10.8)
[2019-07-21] MEDS: Methocarbamol 500 MG TAB PO (13:48)
[2019-07-21] MEDS: Lidocaine 5% Patch 1 PATCH TP (13:49)
[2019-07-21 13:54] LABS: ALT 29 U/L (16-63); AST 35 U/L (15-37); Albumin 3.5 g/dL (3.4-5.0); Alkaline Phosphatase 102 U/L (46-116); Anion Gap 9.2 mmol/L (3-11); BUN 25 mg/dL (7-18); Bilirubin, Total 0.8 mg/dL (0.2-1.0); CO2 26.8 mmol/L (21.0-32.0); CREATININE 1.54 mg/dL (0.70-1.30); Calcium 9.1 mg/dL (8.5-10.1); Chloride 106 mmol/L (98-107); Estimated GFR 43.36 (mL/min/1.73m2); Glucose 89 mg/dL (74-106); Magnesium 2.2 mg/dL (1.8-2.4); Potassium 4.8 mmol/L (3.5-5.1); Sodium 142 mmol/L (136-145); Total Protein 6.9 g/dL (6.4-8.2)
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
[2019-07-21 14:20] LABS: Troponin I < 0.05 ng/Ml (<0.06)
[2019-07-21] MEDS: oxyCODONE 5 MG TAB PO (15:29)
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
== END 2019-07-21 15:45 | disposition home or self-care (01) ==
PROVIDERS: Emergency Provider Physician Assistant; PCP Family Medicine
DX: R07.81 Pleurodynia (principal); J44.9 Chronic obstructive pulmonary disease, unspecified; Z87.891 Personal history of nicotine dependence; N18.9 Chronic kidney disease, unspecified; I12.9 Hypertensive chronic kidney disease with stage 1 through stage 4 chronic kidney disease, or unspecified chronic kidney disease
CPT/HCPCS: 36415; 80053; 93005; 99285; 71046; 83735; 84484; 85025; 93010

== ENCOUNTER 2020-03-16 13:17 | Emergency (ER) | payer MEDICARE, MEDICAID, SELFPAY ==
[2020-03-16] VITALS (26 sets, daily range): BP systolic 106–143; BP diastolic 57–78; PULSE 50–104; RESP 15–29; TEMP 36.7; O2SAT 94–99
--- NOTE | 2020-03-16 13:15 | RT.EKG_ITS ---
APPROVED REPORT Exam: Resting ECG Patient Location: E HR:79 bpm ECG Measurements Heart Rate 79 AXIS PA [id number] P [id number] QRSd 87 QRS 45 QT 379 T 54 QTc 435 Conclusion EKG 13: 27 Rate 79, A. fib/flutter with ventricular paced complexes with good capture, negative for SCARBOSSA cr iteria. No evidence of STEMI.
--- NOTE | 2020-03-16 13:15 | DI.CT_ITS ---
EXAM: CT ABDOMEN PELVIS WO CLINICAL HISTORY: distension, n/v upper abdominal pain TECHNIQUE: COMPARISON: CT CT THORAX ABD/PEL CTA from 04/27/[address] THORAX ABD/PEL CTA from 04/27/2019 FINDINGS: CT examination of the abdomen pelvis was performed without contrast administration. Images obtained through the bases are unremarkable. The liver and spleen appear normal by noncontrast criteria as do es the pancreas. Prior cholecystectomy noted. No biliary dilatation. Adrenals and kidneys are unremarkable, no evidence of urinary tract calcification or obstruction. Muñoz prapubic catheter noted in urinary bladder. Normal appearance of the appendix. No evidence of bowel obstruction or diverticulitis. No abdominal or pelvic adenopathy. Normal diameter of abdominal aorta. No significant abdominal wall hernia see n. IMPRESSION: No evidence of acute intra-abdominal process RADIATION DOSE DELIVERED: Total DLP
[2020-03-16 13:36] LABS: Abs Immature Grans 0.04 10^3/uL (0.0-0.06); Absolute Basophil Count 0.04 10^3/uL (0.0-0.2); Absolute Eosinophil Count 0.09 10^3/uL (0.0-0.7); Absolute Lymphocyte Count 1.64 10^3/uL (1.2-3.4); Absolute Monocyte Count 0.64 10^3/uL (0.1-0.8); Absolute Neutrophil Count 3.77 10^3/uL (1.2-6.7); Basophils % 0.6; Eosinophils % 1.4; HCT 48.4 % (40.0-50.0); HGB 15.7 g/dL (13.5-17.5); Immature Grans % 0.6; Lymphocytes % 26.4; MCH 31.9 pg (27.0-33.0); MCHC 32.4 % (32.0-36.0); MCV 98.4 fL (80-95); MPV 10.3 fL (8.0-11.0); Monocytes % 10.3; Neutrophils % 60.7; Nucleated RBC 0 %; Platelet Count 224 10^3/uL (130-400); RBC 4.92 10^6/uL (4.36-5.78); RDW 14.9 % (11.8-14.1); RDW-SD 54.6 fL; WBC 6.22 10^3/uL (4.4-10.8)
--- NOTE | 2020-03-16 13:37 | ED.GENADUL_ITS ---
Discharge Plan Disposition Patient Disposition: HOME Condition: Good Discharge Details Clinical Impression: Nausea & vomiting Primary Care Provider: Lorena Chong ED Provider: Tim Mckeon Home Meds and New Rx's Prescriptions: New ondansetron HCl [Zofran] 4 mg tablet 4 mg PO Q8H Qty: 12 RF: 0 sucralfate [Carafate] 1 gram tablet 1 g PO BID Qty: 20 RF: 0 Continued latanoprost 2.5 ML drops 1 drp OU HS RF: 0 Azopt 5 ML drops,suspension 1 drp OU DAILY RF: 0 metoprolol tartrate 50 MG tablet 75 mg PO BID Qty: 270 RF: 3 Spiriva with HandiHaler 18 MCG capsule, w/inhalation device 1 cap Inhalation DAILY RF: 0 nitroglycerin [Nitrostat] 0.4 MG tablet, sublingual 0.4 mg Sublingual Q5 MIN PRN X3 PRNQty: 60 RF: 0 potassium chloride [Klor-Con M20] 20 MEQ tablet,ER particles/crystals 20 meq PO DAILY AM Qty: 30 RF: 0 acetaminophen [Tylenol] 325 MG tablet 650 mg PO Q4H PRN PRNRF: 0 multivitamin with minerals [Multiple Vitamin-Minerals] 1 EACH tablet 1 tab PO DAILY RF: 0 mirtazapine [Remeron] 15 MG tablet 15 mg PO HS RF: 0 levothyroxine 75 MCG tablet 75 mcg PO DAILY@0600 RF: 0 cholecalciferol (vitamin D3) 1,000 UNITS tablet 1 tab PO Q30D RF: 0 bisacodyl 10 MG suppository 10 mg AK DAILY RF: 0 Fluticasone Propionate [24 Hour Allergy] 9.9 ML [place].Susp 9.9 ml NS BID RF: 0 lorazepam [Ativan] 0.5 mg Tablet 0.5 mg PO BID RF: 0 oxycodone 5 mg Tablet 5 mg PO TID PRN (Reason: Pain) RF: 0 lactulose 10 gram/15 mL Solution 10 g PO DAILY RF: 0 Flovent HFA 120 PUFF HFA aerosol inhaler 2 puff Inhalation BID RF: 0 furosemide 20 MG tablet 40 mg PO DAILY RF: 0 albuterol sulfate 2.5 MG/3 ML solution for nebulization 3 ml IN Q4H PRN PRNRF: 0 pantoprazole 40 MG tablet,delayed release (DR/EC) 40 mg PO BID Qty: 0 RF: 0 Pradaxa 75 MG capsule 150 mg PO BID Qty: 0 RF: 0 acidophilus-pectin, citrus 25 million cell -100 mg Tablet 1 cap PO TID Qty: 90 RF: 0 Myrbetriq 50 mg Tablet Extended Release 24 Hr 50 mg PO DAILY Qty: 30 RF: 0 sennosides [senna] 8.6 mg Tablet 8.6 mg PO HS RF: 0 Fleet Enema 19-7 gram/118 mL Enema 197 ml [place] ONCE PRNRF: 0 docusate sodium [Colace] 100 mg Capsule 100 mg PO BID RF: 0 albuterol sulfate [ProAir HFA] 90 mcg/actuation Hfa Aerosol Inhaler 2 puff Inhalation QID PRN PRNRF: 0 ondansetron 4 mg Tablet,Disintegrating 4 mg PO QID PRNRF: 0 Narcan 4 mg/actuation [place],Non-Aerosol 4 mg Intranasal PRN PRNRF: 0 ranitidine HCl 150 mg Tablet 150 mg PO BID RF: 0 ursodiol 250 mg tablet 250 mg PO BID RF: 0 Discharge Instructions Instructions: Acute Nausea and Vomiting (ED) Additional Instructions: At this time your signs and symptoms are consistent with mild gastric irritation, may have been from a mild virus. Please stick with a liquid diet for the next 2 to 3 days. Avoid any spicy or greasy foods. Please take the Zofran as needed for nausea or vomiting. If you notice any worsening of your symptoms, or any new symptoms such as vomiting, diarrhea, fever, chills, shortness of breath, chest pain, numbness, weakness, or fainting , please return immediately to the emergency department for reevaluation. Please follow up with your primary care provider as soon as possible for reassessment and reevaluation. As always, it was a pleasure participating in your medical care today. Referrals: Lorena Chong [Primary Care Provider] - Medical Decision Making 84-year-old male who is unfortunately not a great historian with a past medical history of pacemaker, paroxysmal A. fib on Pradaxa, hypertension, anxiety, previous cardiac disease, with a past surgical history of a TURP presents today via EMS for complaint of abdominal pain. Patient states that since 10 AM he has had mild to moderate left upper quadrant abdominal pain radiating to the right. He admits to nausea and vomiting. Last time he ate was a sandwich yesterday afternoon, he has not been able to keep anything down since then. He denies any significant hematemesis or blood in his stool. He denies any recent antibiotic use. He is uncertain of his personal past surgical history. Pain is described as achy. He denies any tearing or ripping sensation. He does admit to bloating in the abdomen otherwise as well. Patient denies any history of similar complaints in the past. He denies any other sick contacts. No other complaints or modifying factors at this time. He denies chest pain, shortness of breath. Physical exam demonstrates a mildly distended abdomen, tenderness in the epigastric left upper and right upper quadrant regions. Bowel sounds present. Differential at this time includes obstruction, gallbladder pathology, or pancreatitis. We will get a CT scan, control patient's pain, gently rehydrate monitor closely and reassess. 3:[address] scan results have returned, no acute process whatsoever per virtual radiology, no white count, bandemia or left shift. No fever. He does have a chronic suprapubic Kang catheter, urine does show 10-20 WBCs, positive nitrate, minimal leuk esterase, however I do not think that this is necessarily indicative of an infection, especially with no fever chills white count or bandemia or left shift. I do not think treatment is indicated currently, and I do feel that treatment should be directed by culture results instead. We will hold off on treatment for the time being. On reassessment after Tylenol and GI cocktail the patient is feeling much better, he is joking, he is tolerating p.o. well here, with no signs of vomiting. Symptoms are notably improved, repeat abdominal exam shows no signs of an acute surgical abdomen whatsoever. Symptomatology notably inconsistent with ACS lipase is negative, and at this time with the patient's notable clinical improvement, negative cardiac abdominal and CT work-up they do feel he is stable for discharge. Patient feels well and is requesting to go home. Will give Zofran for home use, recommend use a liquid diet for the next few days. Discussed red flags which to return. I have extensively reviewed the treatment plan and discharge instructions with the patient. I have addressed all patient concerns at this time. The patient was made aware of what symptoms to monitor for that would warrant a return to the emergency department. Discussed the plan with the patient, they demonstrate verbal understanding and agreement with our assessment and plan at this time. EKG 13: 27 Rate 79, A. fib/flutter with ventricular paced complexes with good capture, negative for SCARBOSSA criteria. No evidence of STEMI. FINDINGS: Prior cholecystectomy. Suprapubic urinary bladder catheter in place. Diverticulosis without evidence of diverticulitis. Normal appearing solid organs. No intestinal obstruction. No obstructive uropathy. No free fluid. No free air. No inflammatory changes. IMPRESSION: No specific etiology identified for the patient's symptoms. Thank you for allowing us to participate in the care of your patient. Dictated and Authenticated by: Kalen Sloan MD 03/16/2020 3:03 PM Eastern Time ([place] & [place]) HPI General Date/Time Provider Initiated Documentation: 03/16/20 13:22 . HPI Narrative: 84-year-old male who is unfortunately not a great historian with a past medical history of pacemaker, paroxysmal A. fib on Pradaxa, hypertension, anxiety, previous cardiac disease, with a past surgical history of a TURP presents today via EMS for complaint of abdominal pain. Patient states that since 10 AM he has had mild to moderate left upper quadrant abdominal pain radiating to the right. He admits to nausea and vomiting. Last time he ate was a sandwich yesterday afternoon, he has not been able to keep anything down since then. He denies any significant hematemesis or blood in his stool. He denies any recent antibiotic use. He is uncertain of his personal past surgical history. Pain is described as achy. He denies any tearing or ripping sensation. He does admit to bloating in the abdomen otherwise as well. Patient denies any history of similar complaints in the past. He denies any other sick contacts. No other complaints or modifying factors at this time. He denies chest pain, shortness of breath. Related Data Home Medications Medication Instructions Recorded Confirmed Spiriva with HandiHaler 1 cap INHALATION DAILY 11/08/12 03/16/20 nitroglycerin [Nitrostat] 0.4 mg SUBLINGUAL Q5 MIN PRN X3 05/27/14 03/16/20 PRN #60 tab potassium chloride [Klor-Con M20] 20 meq PO DAILY AM #30 tabcr 07/18/15 03/16/20 Azopt 1 drp OU DAILY drp 09/30/15 07/21/19 latanoprost 1 drp OU HS drp 09/30/15 03/16/20 acetaminophen [Tylenol] 650 mg PO Q4H PRN PRN tab 11/25/15 07/21/19 mirtazapine [Remeron] 15 mg PO HS 03/04/16 03/16/20 multivitamin with minerals 1 tab PO DAILY 03/04/16 03/16/20 [Multiple Vitamin-Minerals] levothyroxine 75 mcg PO DAILY@0600 tab 04/13/16 03/16/20 Flovent HFA 2 puff INHALATION BID inh 05/30/16 03/16/20 furosemide 40 mg PO DAILY 10/22/16 03/16/20 cholecalciferol (vitamin D3) 1 tab PO Q30D 08/01/17 03/16/20 albuterol sulfate 3 ml IN Q4H PRN PRN 10/22/17 03/16/20 metoprolol tartrate 75 mg PO BID #270 tab-cap 11/09/17 03/16/20 Fluticasone Propionate [24 Hour 9.9 ml NS BID 12/30/17 03/16/20 Allergy] bisacodyl 10 mg AK DAILY 12/30/17 07/21/19 pantoprazole 40 mg PO BID #0 02/28/18 03/16/20 Pradaxa 150 mg PO BID #0 cap 03/02/18 03/16/20 Myrbetriq 50 mg PO DAILY #30 tab 08/15/18 03/16/20 acidophilus-pectin, citrus 1 cap PO TID #90 tab 08/15/18 03/16/20 lactulose 10 g PO DAILY 10/29/18 07/21/19 lorazepam [Ativan] 0.5 mg PO BID 10/29/18 03/16/20 oxycodone 5 mg PO TID PRN 10/29/18 03/16/20 Fleet Enema 197 ml AK ONCE PRN 11/30/18 07/21/19 Narcan 4 mg INTRANASAL PRN PRN 11/30/18 07/21/19 albuterol sulfate [ProAir HFA] 2 puff INHALATION QID PRN PRN 11/30/18 03/16/20 docusate sodium [Colace] 100 mg PO BID 11/30/18 03/16/20 ondansetron 4 mg PO QID PRN 11/30/18 03/16/20 sennosides [senna] 8.6 mg PO HS 11/30/18 03/16/20 ranitidine HCl 150 mg PO BID 01/03/19 07/21/19 ondansetron HCl [Zofran] 4 mg PO Q8H #12 tab 03/16/20 sucralfate [Carafate] 1 g PO BID #20 tab 03/16/20 ursodiol 250 mg PO BID 03/16/20 03/16/20 Previous Rx's Medication Instructions Recorded nitroglycerin [Nitrostat] 0.4 mg SUBLINGUAL Q5 MIN PRN X3 05/27/14 PRN #60 tab potassium chloride [Klor-Con M20] 20 meq PO DAILY AM #30 tabcr 07/18/15 acetaminophen [Tylenol] 650 mg PO Q4H PRN PRN tab 11/25/15 levothyroxine 75 mcg PO DAILY@0600 tab 04/13/16 Flovent HFA 2 puff INHALATION BID inh 05/30/16 metoprolol tartrate 75 mg PO BID #270 tab-cap 11/09/17 pantoprazole 40 mg PO BID #0 02/28/18 Pradaxa 150 mg PO BID #0 cap 03/02/18 Myrbetriq 50 mg PO DAILY #30 tab 08/15/18 acidophilus-pectin, citrus 1 cap PO TID #90 tab 08/15/18 ondansetron HCl [Zofran] 4 mg PO Q8H #12 tab 03/16/20 sucralfate [Carafate] 1 g PO BID #20 tab 03/16/20 Allergies Allergy/AdvReac Type Severity Reaction Status Date / Time banana Allergy Mild Skin Rash Unverified 07/21/19 13:24 formoterol fumarate AdvReac Intermediate Ineffective Unverified 07/21/19 13:24 [From Dulera] per Pt mometasone furoate AdvReac Intermediate Ineffective Unverified 07/21/19 13:24 [From Dulera] per Pt hydrocodone AdvReac Unknown Dizziness/L Unverified 07/21/19 13:24 ightheade General Stated Complaint: GenMedical CINTIA: 3 Review of Systems All systems reviewed & are unremarkable except as noted in HPI and below PFSH Medical History (Updated 03/16/20 @ 15:57 by Tim Mckeon DO) Anxiety Atrial fibrillation BPH (benign prostatic hyperplasia) Chronic kidney disease (CKD) Chronic obstructive lung disease Diverticulosis of large intestine without diverticulitis Essential hypertension GERD (gastroesophageal reflux disease) Glaucoma Insomnia Polyp of colon Spinal stenosis of lumbar region Tachycardia-bradycardia Surgical History Colonoscopy - MAC Pacemaker S/P TURP Social History Smoking/Tobacco Use Status: Former Tobacco Use Alcohol Intake: former Drug use: Never Substance use type: does not use Do you feel safe at home: Yes Do you feel safe in your relationship?: Yes Exam Narrative Exam Narrative: 1.Const: Well-nourished, Well-developed, appearing stated age 2.Eyes: PERRL, no conjunctival injection, and symmetrical lids. 3.ENT: Atraumatic external nose and ears. Moist MM. Neck: Symmetric, trachea midline, No thyromegaly. 4.CVS: +S1/S2, No murmurs or gallops. Peripheral pulses 2+ and equal in all extremities. Brisk capillary refill in all extremities. 5.RESP: Unlabored respiratory effort. Clear to auscultation bilaterally. No wheezes rales or rhonchi 6.GI: Mildly distended abdomen, tenderness in the left upper quadrant and right upper quadrants. Bowel sounds present throughout. Voluntary guarding, no rebound. 7.MSK: Normocephalic/Atraumatic, Extremities w/o deformity or ttp No cyanosis or clubbing, Normal movement of all extremities 8.Skin: Warm, Dry. No rashes or lesions. 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 Sensation grossly intact, no focal neurologic deficits. 10.Psych: (AAO) x3. Appropriate mood and affect Course Vital Signs Vital signs: Vital Signs Temperature 36.7 C 03/16/20 13:20 Pulse 104 H 03/16/20 13:20 Respiratory Rate 20 03/16/20 13:20 Blood Pressure 143/78 H 03/16/20 13:20 Pulse Oximetry 94 L 03/16/20 13:20 Temperature 36.7 C 03/16/20 13:20 Temperature Source Skin 03/16/20 13:20 Pulse 104 H 03/16/20 13:20 Respiratory Rate 20 03/16/20 13:20 Respiratory Effort Non-Labored 03/16/20 13:27 Respiratory Depth Normal 03/16/20 13:27 Respiratory Pattern Normal 03/16/20 13:27 Blood Pressure 143/78 H 03/16/20 13:20 Blood Pressure Position Sitting 03/16/20 13:20 Pulse Oximetry 94 L 03/16/20 13:20 Oxygen Delivery Method Room Air 03/16/20 13:20 Oxygen Flow Rate 0 03/16/20 13:20 Pain Level 7 03/16/20 13:20
[2020-03-16 13:41] LABS: Lactate 1.2 mmol/L (0.6-1.4)
[2020-03-16 13:48] LABS: INR 1.3 (0.9-1.1); PTT Activated 40.6 sec (21.0-31.4); Prothrombin Time 12.7 sec (9.3-11.0)
[2020-03-16 13:50] LABS: ALT 24 U/L (16-63); AST 28 U/L (15-37); Albumin 3.5 g/dL (3.4-5.0); Alkaline Phosphatase 107 U/L (46-116); Anion Gap 6.7 mmol/L (3-11); BUN 15 mg/dL (7-18); Bilirubin, Total 0.7 mg/dL (0.2-1.0); CO2 29.3 mmol/L (21.0-32.0); CREATININE 1.49 mg/dL (0.70-1.30); Calcium 9.1 mg/dL (8.5-10.1); Chloride 105 mmol/L (98-107); Estimated GFR 45.04 (mL/min/1.73m2); Glucose 86 mg/dL (74-106); Lipase 69 U/L (73-393); Potassium 4.3 mmol/L (3.5-5.1); Sodium 141 mmol/L (136-145); Total Protein 7.3 g/dL (6.4-8.2)
[2020-03-16 13:51] LABS: Troponin I < 0.05 ng/mL (<0.06)
[2020-03-16] MEDS: Ondansetron 4 MG/2 ML VIAL IVP (13:52)
[2020-03-16] MEDS: ACETAMINOPHEN 1,000 MG/100 ML BTL 400 MG IVPB (13:53)
[2020-03-16 14:16] LABS: Bilirubin Negative (Negative); Blood Negative (Negative); Clarity Clear (Clear); Glucose Negative (Negative); Ketones Negative (Negative); Leukocyte Esterase Small (Negative); Nitrite Positive (Negative); Urobilinogen 0.2 EU/dL (Up TO 0.2)
[2020-03-16] MEDS: Normal Saline 500 ML IV (14:20)
[2020-03-16 14:25] LABS: Epithelial Cells Rare HPF (Negative); Other Cells Moderate Yeast (Negative); RBC Negative HPF (0-2)
[2020-03-16 14:26] LABS: Bacteria Few HPF (Negative); C & S Indicated? Yes; Casts 0-2 Hyaline LPF (Negative); Crystals Negative HPF (Negative); Mucus Trace (Negative)
--- NOTE | 2020-03-16 15:04 | DI.VRAD_ITS ---
PROCEDURE INFORMATION: Exam: CT Abdomen And Pelvis Without Contrast Exam date and time: 03/16/2020 1:25 PM Age: 84 years old Clinical indication: Abdominal tenderness TECHNIQUE: Imaging protocol: Computed tomography of the abdomen and pelvis without contrast. COMPARISON: CT ABDOMEN PELVIS WO 01/26/2019 1:46 PM FINDINGS: Prior cholecystectomy. Suprapubic urinary bladder catheter in place. Diverticulosis without evidence of diverticulitis. Normal appearing solid organs. No intestinal obstruction. No obstructive uropathy. No free fluid. No free air. No inflammatory changes. IMPRESSION: No specific etiology identified for the patient's symptoms. Dictated and Authenticated by: Kalen Sloan MD. Ordering:EVER Dumont MD
== END 2020-03-16 16:20 | disposition home or self-care (01) ==
PROVIDERS: Emergency Provider Student in an Organized Health Care Education/Training Program; PCP Family Medicine
DX: R11.2 Nausea with vomiting, unspecified (principal); R10.10 Upper abdominal pain, unspecified; R14.0 Abdominal distension (gaseous); I12.9 Hypertensive chronic kidney disease with stage 1 through stage 4 chronic kidney disease, or unspecified chronic kidney disease; N18.9 Chronic kidney disease, unspecified; Z96.0 Presence of urogenital implants
CPT/HCPCS: 36415; 80053; 83690; 93005; 96361; 96374; 96375; 99285; 74176; 81003; 81015; 83605; 84484; 85025; 85610; 85730; 87086; 93010; 99284; J0131; J2405

== ENCOUNTER 2020-05-11 20:37 | Emergency (ER) | payer MEDICARE, MEDICAID, SELFPAY ==
[2020-05-11 20:39] VITALS: BP 122/72; PULSE 67; RESP 18; TEMP 36.3; O2SAT 97
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
[2020-05-11] MEDS: oxyCODONE 5 MG TAB PO (21:19)
[2020-05-11] MEDS: Ketorolac 15 MG/ML VIAL IM (21:21)
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
[2020-05-11] MEDS: Lidocaine 5% Patch 1 PATCH TP (22:12)
== END 2020-05-11 22:40 | disposition home or self-care (01) ==
PROVIDERS: Emergency Provider Nurse Practitioner Acute Care; PCP Family Medicine
DX: M25.511 Pain in right shoulder (principal); M54.2 Cervicalgia; R51.9 Headache, unspecified; W18.39XA Other fall on same level, initial encounter; J44.9 Chronic obstructive pulmonary disease, unspecified; Z87.891 Personal history of nicotine dependence; I12.9 Hypertensive chronic kidney disease with stage 1 through stage 4 chronic kidney disease, or unspecified chronic kidney disease; N18.9 Chronic kidney disease, unspecified
CPT/HCPCS: 96372; 99284; 70450; 72125; 73030; J1885

== ENCOUNTER 2020-05-12 15:40 | Emergency (ER) | payer MEDICARE, MEDICAID, SELFPAY ==
[2020-05-12 15:39] VITALS: BP 128/83; PULSE 85; RESP 22; TEMP 36.6; O2SAT 96
--- NOTE | 2020-05-12 15:41 | ED.GENADUL_ITS ---
Discharge Plan Disposition Patient Disposition: HOME Condition: Stable Discharge Details Clinical Impression: Neck pain, History of fall Primary Care Provider: Lorena Chong ED Provider: Ivette Mcelroy Home Meds and New Rx's Prescriptions: Continued latanoprost 2.5 ML drops 1 drp OU HS RF: 0 Azopt 5 ML drops,suspension 1 drp OU DAILY RF: 0 metoprolol tartrate 50 MG tablet 75 mg PO BID Qty: 270 RF: 3 Spiriva with HandiHaler 18 MCG capsule, w/inhalation device 1 cap Inhalation DAILY RF: 0 nitroglycerin [Nitrostat] 0.4 MG tablet, sublingual 0.4 mg Sublingual Q5 MIN PRN X3 PRNQty: 60 RF: 0 potassium chloride [Klor-Con M20] 20 MEQ tablet,ER particles/crystals 20 meq PO DAILY AM Qty: 30 RF: 0 acetaminophen [Tylenol] 325 MG tablet 650 mg PO Q4H PRN PRNRF: 0 mirtazapine [Remeron] 15 MG tablet 15 mg PO HS RF: 0 levothyroxine 75 MCG tablet 75 mcg PO DAILY@0600 RF: 0 cholecalciferol (vitamin D3) 1,000 UNITS tablet 1 tab PO DAILY RF: 0 bisacodyl 10 MG suppository 10 mg MI DAILY RF: 0 Fluticasone Propionate [24 Hour Allergy] 9.9 ML [place].Susp 9.9 ml NS BID RF: 0 lorazepam [Ativan] 0.5 mg Tablet 0.5 mg PO TID RF: 0 lactulose 10 gram/15 mL Solution 10 g PO DAILY RF: 0 Flovent HFA 120 PUFF HFA aerosol inhaler 2 puff Inhalation BID RF: 0 furosemide 20 MG tablet 40 mg PO DAILY RF: 0 albuterol sulfate 2.5 MG/3 ML solution for nebulization 3 ml IN Q4H PRN PRNRF: 0 pantoprazole 40 MG tablet,delayed release (DR/EC) 40 mg PO BID Qty: 0 RF: 0 Pradaxa 75 MG capsule 150 mg PO BID Qty: 0 RF: 0 acidophilus-pectin, citrus 25 million cell -100 mg Tablet 1 cap PO TID Qty: 90 RF: 0 Myrbetriq 50 mg Tablet Extended Release 24 Hr 50 mg PO DAILY Qty: 30 RF: 0 sennosides [senna] 8.6 mg Tablet 8.6 mg PO HS RF: 0 docusate sodium [Colace] 100 mg Capsule 100 mg PO BID RF: 0 albuterol sulfate [ProAir HFA] 90 mcg/actuation Hfa Aerosol Inhaler 2 puff Inhalation QID PRN PRNRF: 0 ondansetron 4 mg Tablet,Disintegrating 4 mg PO QID PRNRF: 0 ursodiol 250 mg tablet 250 mg PO BID RF: 0 sucralfate [Carafate] 1 gram tablet 1 g PO BID Qty: 20 RF: 0 multivitamin [Tab-A-Raghu] Tablet 1 tab PO DAILY RF: 0 diclofenac sodium 1 % gel TOPICAL BID RF: 0 Discharge Instructions Instructions: Neck Pain (ED) Additional Instructions: Drink plenty of fluids and get plenty of rest. Alternate tylenol and motrin as needed and directed for pain. Take the methocarbamol or your oxycodone for pain not relieved with Tylenol or Motrin. Home health will come to evaluate you at home to determine your need for physical therapy and safety at home. Follow-up with your primary care doctor in 1 week. Return to the emergency department with any worsening or new concerning symptoms. Discharge Data Discharge Date/Time-TO BE ENTERED AT DEPARTURE: 05/12/20 19:03 Discharge Physician: Ivette Mcelroy Medical Decision Making 85-year-old male with a history of atrial fibrillation on Pradaxa, chronic kidney disease, suprapubic catheter, COPD, CHF, pacemaker, hypertension, anxiety presents for right-sided painful neck lump and concern for ability to ambulate per home health today. Patient has tenderness palpation of his right posterior cervical neck which notes small tender lymphadenopathy which appears mobile and soft. He also has some surrounding paraspinal tenderness and pain with range of motion. He appears nontoxic. He has no focal deficits. He has no complaint of headache. Patient was able to ambulate using his walker which is his baseline. Patient was given Tylenol and methocarbamol for his neck pain which may be muscular status post his fall and he had improvement. Patient feels good to go home. He requested physical therapy for help with him at home. A referral was placed for home health through care management to assess patient's needs at home and for physical therapy evaluation. Methocarbamol given to go. Advised to follow up with the primary care doctor for re-evaluation. Usual and c ustomary return precautions given prior to discharge. Medical Records Medical records reviewed: Yes I reviewed the patient's medical records. HPI General Mode of arrival: EMS . Date/Time Provider Initiated Documentation: 05/12/20 15:40 . Limitations to Documentation: no limitations . Information obtained by: patient . HPI Narrative: Patient is an 85-year-old male with a history of atrial fibrillation on Pradaxa, chronic kidney disease, suprapubic catheter, COPD, hypertension, anxiety who presents for possible new lump on the right side of his neck noted by home health and intermittent bilateral leg weakness which she states is chronic and sometimes causes difficulty with walking. Patient was seen here last night for evaluation for headache, neck pain and right shoulder pain after a fall 10 days ago. Patient had a negative CT head, CT cervical spine and x-ray of his right shoulder with symptoms oxycodone. When home health evaluated patient today they noted his discharge instructions said that if patient had any additional evidence of injury to send him back to the ER for further evaluation. They felt when they were examining him that he had a lump on the right side of his neck. Patient states he has had this lump on and off for a long time and states it is quite tender. Patient denies any new fall and denies any headache at this time. Patient states that he has chronic bilateral leg weakness and sometimes has difficulty walking around with his walker. Patient denies any fever, change in appetite, chest pain, shortness of breath abdominal pain, back pain or dizziness. Related Data Home Medications Medication Instructions Recorded Confirmed Spiriva with HandiHaler 1 cap INHALATION DAILY 11/08/12 05/12/20 nitroglycerin [Nitrostat] 0.4 mg SUBLINGUAL Q5 MIN PRN X3 05/27/14 05/12/20 PRN #60 tab potassium chloride [Klor-Con M20] 20 meq PO DAILY AM #30 tabcr 07/18/15 05/12/20 Azopt 1 drp OU DAILY drp 09/30/15 05/12/20 latanoprost 1 drp OU HS drp 09/30/15 05/12/20 acetaminophen [Tylenol] 650 mg PO Q4H PRN PRN tab 11/25/15 05/12/20 mirtazapine [Remeron] 15 mg PO HS 03/04/16 05/12/20 levothyroxine 75 mcg PO DAILY@0600 tab 04/13/16 05/12/20 Flovent HFA 2 puff INHALATION BID inh 05/30/16 05/12/20 furosemide 40 mg PO DAILY 10/22/16 05/12/20 cholecalciferol (vitamin D3) 1 tab PO DAILY 08/01/17 05/12/20 albuterol sulfate 3 ml IN Q4H PRN PRN 10/22/17 05/12/20 metoprolol tartrate 75 mg PO BID #270 tab-cap 11/09/17 05/12/20 Fluticasone Propionate [24 Hour 9.9 ml NS BID 12/30/17 05/12/20 Allergy] bisacodyl 10 mg MI DAILY 12/30/17 05/12/20 pantoprazole 40 mg PO BID #0 02/28/18 05/12/20 Pradaxa 150 mg PO BID #0 cap 03/02/18 05/12/20 Myrbetriq 50 mg PO DAILY #30 tab 08/15/18 05/12/20 acidophilus-pectin, citrus 1 cap PO TID #90 tab 08/15/18 05/12/20 lactulose 10 g PO DAILY 10/29/18 05/12/20 lorazepam [Ativan] 0.5 mg PO TID 10/29/18 05/12/20 albuterol sulfate [ProAir HFA] 2 puff INHALATION QID PRN PRN 11/30/18 05/12/20 docusate sodium [Colace] 100 mg PO BID 11/30/18 05/12/20 ondansetron 4 mg PO QID PRN 11/30/18 05/12/20 sennosides [senna] 8.6 mg PO HS 11/30/18 05/12/20 sucralfate [Carafate] 1 g PO BID #20 tab 03/16/20 05/12/20 ursodiol 250 mg PO BID 03/16/20 05/12/20 diclofenac sodium TOPICAL BID 05/12/20 multivitamin [Tab-A-Raghu] 1 tab PO DAILY 05/12/20 05/12/20 Previous Rx's Medication Instructions Recorded nitroglycerin [Nitrostat] 0.4 mg SUBLINGUAL Q5 MIN PRN X3 05/27/14 PRN #60 tab potassium chloride [Klor-Con M20] 20 meq PO DAILY AM #30 tabcr 07/18/15 acetaminophen [Tylenol] 650 mg PO Q4H PRN PRN tab 11/25/15 levothyroxine 75 mcg PO DAILY@0600 tab 04/13/16 Flovent HFA 2 puff INHALATION BID inh 05/30/16 metoprolol tartrate 75 mg PO BID #270 tab-cap 11/09/17 pantoprazole 40 mg PO BID #0 02/28/18 Pradaxa 150 mg PO BID #0 cap 03/02/18 Myrbetriq 50 mg PO DAILY #30 tab 08/15/18 acidophilus-pectin, citrus 1 cap PO TID #90 tab 08/15/18 sucralfate [Carafate] 1 g PO BID #20 tab 03/16/20 Allergies Allergy/AdvReac Type Severity Reaction Status Date / Time banana Allergy Mild Skin Rash Unverified 05/12/20 15:43 formoterol fumarate AdvReac Intermediate Ineffective Unverified 05/12/20 15:43 [From Dulera] per Pt mometasone furoate AdvReac Intermediate Ineffective Unverified 05/12/20 15:43 [From Dulera] per Pt hydrocodone AdvReac Unknown Dizziness/L Unverified 05/12/20 15:43 ightheade General CINTIA: 3 Review of Systems All systems reviewed & are unremarkable except as noted in HPI and below Constitutional Constitutional: Reports as per HPI, Denies chills and Denies fever(s) Eyes Eyes: Denies blurry vision ENT Ears, Nose, Mouth, and Throat: Denies dizziness, Reports neck pain, Denies sore throat and Denies throat swelling Cardiovascular Cardiovascular: Denies chest pain and Denies dyspnea Respiratory Respiratory: Denies cough and Denies dyspnea Gastrointestinal Gastrointestinal: Denies abdominal pain, Denies diarrhea and Denies vomiting Genitourinary Genitourinary: Denies hematuria and Denies dysuria Musculoskeletal Musculoskeletal: Denies back pain, Reports neck pain, Denies numbness and Reports other (intermittent b/l leg weakness) Integumentary/Breasts Skin/Breast: Denies lesions and Denies rash Neurologic Neurologic: Denies dizziness, Denies localized weakness and Denies numbness Allergic/Immunologic Allergic/Immunologic: Denies throat swelling [facility] Medical History (Updated 05/12/20 @ 17:41 by Ivette Mcelroy DO) Anxiety Atrial fibrillation BPH (benign prostatic hyperplasia) Chronic kidney disease (CKD) Chronic obstructive lung disease Diverticulosis of large intestine without diverticulitis Essential hypertension GERD (gastroesophageal reflux disease) Glaucoma Insomnia Polyp of colon Spinal stenosis of lumbar region Tachycardia-bradycardia Surgical History Colonoscopy - MAC Pacemaker S/P TURP Social History Smoking/Tobacco Use Status: Former Tobacco Use Smoking risk assessment performed?: Yes Alcohol Intake: former Drug use: Never Substance use type: does not use Do you feel safe at home: Yes Do you feel safe in your relationship?: Yes Exam Const General: cooperative and healthy appearing Orientation: alert and awake HENMT Head: normal to inspection Ears: hearing grossly normal bilaterally and external ears normal General nose exam: external nose normal Face and sinus: normal facial exam Mouth: oral mucosae normal Throat: posterior oropharynx normal Eyes General: appearance normal, both eyes and all related structures Eyelids: eyelids normal Pupils: PERRL EOM: EOM intact bilaterally Neck Neck: normal visual inspection and lymphadenopathy (Small, mobile bilateral posterior cervical, tender on R side) Lymphatic: no lymphadenopathy noted Chest Chest: normal inspection of the chest Resp Effort & Inspection: normal respiratory effort and able to speak in complete sentences Auscultation: clear to auscultation bilaterally Cardio Rate: regular rate Rhythm: regular rhythm GI Inspection: normal to inspection and other (suprapubic catheter) Palpation: soft, not firm, no guarding, no hepatosplenomegaly, no masses and nontender Auscultation: hypoactive bowel sounds Back/Spine/Pelvis Back: no CVA tenderness Skin General skin exam: no rashes or lesions noted Neuro General: patient alert, patient awake, moves all extremities, no meningeal signs and no focal motor deficits Cognition: normal cognition Speech: speech normal Gait: normal gait Motor: muscle tone normal throughout and strength 5/5 throughout Sensory Exam: no sensory deficits noted Extrem General: normal to inspection, full ROM and capillary refill normal Psych Appearance: grossly normal Mental Status: mental status grossly normal Speech and Movement: speech and movement normal Affect: normal affect Thought Process: normal
[2020-05-12 15:58] VITALS: RESP 19
[2020-05-12] MEDS: Methocarbamol 500 MG TAB PO (16:10)
[2020-05-12] MEDS: Acetaminophen 325 MG TAB 650 MG PO (16:10)
[2020-05-12] MEDS: Methocarbamol 500 MG TAB 2000 MG PO (18:14)
== END 2020-05-12 19:03 | disposition home or self-care (01) ==
PROVIDERS: Emergency Provider Physician Assistant; PCP Family Medicine
DX: M54.2 Cervicalgia (principal); W19.XXXA Unspecified fall, initial encounter; R26.2 Difficulty in walking, not elsewhere classified; I12.9 Hypertensive chronic kidney disease with stage 1 through stage 4 chronic kidney disease, or unspecified chronic kidney disease; N18.9 Chronic kidney disease, unspecified; J44.9 Chronic obstructive pulmonary disease, unspecified; Z87.891 Personal history of nicotine dependence; Z96.0 Presence of urogenital implants
CPT/HCPCS: 99283; 99284

== ENCOUNTER 2020-08-09 11:03 | Emergency (ER) | payer MEDICARE, MEDICAID, SELFPAY ==
[2020-08-09] VITALS (21 sets, daily range): BP systolic 106–122; BP diastolic 57–71; PULSE 49–126; RESP 12–25; TEMP 36.6; O2SAT 83–98
--- NOTE | 2020-08-09 11:15 | DI.CT_ITS ---
EXAM: CT ABDOMEN PELVIS W CLINICAL HISTORY: left upper abdominal pain TECHNIQUE: Imaging Protocol: Axial computed tomography images with coronal and sagittal reformatted images were created and reviewed CONTRAST MATERIAL: Intravenous: Omnipaque 350 Contrast volume:100 mL Oral: No COMPARISON: CT CT ABDOMEN PELVIS WO from 01/26/[address] THORAX ABD/PEL CTA from 04/27/[address] ABDOMEN PELVIS WO from 03/16/2020 FINDINGS: ABDOMEN: Lung Bases: Dependent atelectasis. Liver: Normal density. No measurable mass. There is focal fatty infiltration in the liver adjacent to the gallbladder fossa. Portal, Superior Mesenteric, and Splenic Veins: Unremarkable. Gallbladder and Biliary Tract: Status post cholecystectomy. No biliary ductal dilatation. Pancreas: Normal density, no abnormal calcifications or inflammatory process. Spleen: Calcified granuloma. Adrenals: No masses seen. Kidneys: Normal size, contour and axis. No radiodense stones or obstructive uropathy. There are tiny hypodensities seen in the kidneys. They are too small for further characterization but likely reflec t small cysts. Abdominal Aorta: Abdominal portion non-dilated. Marked atherosclerosis. Bowel: No obstruction or bowel wall thickening. No evidence of appendicitis. Extensive diverticulosi s in the descending and sigmoid colon but no evidence of acute diverticulitis. Peritoneal Cavity: No ascites, collection or mesenteric inflammatory response. No free air. Lymph Nodes: Within normal limits. Bones: Degenerative changes. The findings do result in marked multilevel central spinal canal stenos is. The findings are most marked at L3-4, L4-5 and L5-S1. There is a left convex scoliosis. Soft Tissues: Bilateral fat containing inguinal hernia. PELVIS: Bladder: The urinary bladder is nondistended. There is a suprapubic catheter. Reproductive Organs: Marked enlargement of the prostate gland. Lymph Nodes: Within normal limits. Bones: Please see above. IMPRESSION: 1. No evidence of bowel obstruction or inflammatory process. 2. Chronic findings in the abdomen and pelvis as described above. 3. Results of this exam have been verbally communicated with provider. RADIATION DOSE DELIVERED: 1,122.51mGy.cm Total DLP DATA REPOSITORY: All CT scans at this facility are submitted to the National Radiology Data Registry (NRDR) Dose Index Registry (DIR) with the [employer] ([employer]). RADIATION OPTIMIZATION: All CT scans at this facility use at least one of these dose optimization te chniques: automated exposure control; mA and/or kV adjustment per patient size (includes targeted exa ms where dose is matched to clinical indication); or iterative reconstruction.
--- NOTE | 2020-08-09 11:15 | RT.EKG_ITS ---
APPROVED REPORT Exam: Resting ECG Patient Location: E HR:92 bpm ECG Measurements Heart Rate 92 [place]IS [place] [id number] P [id number] QRSd 89 QRS 31 QT 370 T 64 QTc 459 Conclusion Afib/flut and V-paced complexes...other complexes, A-rate>240
--- NOTE | 2020-08-09 11:29 | ED.GENADUL_ITS ---
Discharge Plan Disposition Patient Disposition: HOME Condition: Stable Discharge Details Clinical Impression: Nausea and vomiting, Abdominal pain Primary Care Provider: Lorena Chong ED Provider: Geovany Valencia Home Meds and New Rx's Prescriptions: New ondansetron 4 mg tablet,disintegrating 4 mg PO Q8H PRN (Reason: nausea and vomiting) Qty: 30 RF: 0 Continued latanoprost 2.5 ML drops 1 drp OU HS RF: 0 Azopt 5 ML drops,suspension 1 drp OU DAILY RF: 0 metoprolol tartrate 50 MG tablet 75 mg PO BID Qty: 270 RF: 3 Spiriva with HandiHaler 18 MCG capsule, w/inhalation device 1 cap Inhalation DAILY RF: 0 nitroglycerin [Nitrostat] 0.4 MG tablet, sublingual 0.4 mg Sublingual Q5 MIN PRN X3 PRNQty: 60 RF: 0 potassium chloride [Klor-Con M20] 20 MEQ tablet,ER particles/crystals 20 meq PO DAILY AM Qty: 30 RF: 0 acetaminophen [Tylenol] 325 MG tablet 650 mg PO Q4H PRN PRNRF: 0 mirtazapine [Remeron] 15 MG tablet 15 mg PO HS RF: 0 levothyroxine 75 MCG tablet 75 mcg PO DAILY@0600 RF: 0 cholecalciferol (vitamin D3) 1,000 UNITS tablet 1 tab PO DAILY RF: 0 bisacodyl 10 MG suppository 10 mg [place] DAILY RF: 0 Fluticasone Propionate [24 Hour Allergy] 9.9 ML [place].Susp 9.9 ml NS BID RF: 0 lorazepam [Ativan] 0.5 mg Tablet 0.5 mg PO TID RF: 0 lactulose 10 gram/15 mL Solution 10 g PO DAILY RF: 0 Flovent HFA 120 PUFF HFA aerosol inhaler 2 puff Inhalation BID RF: 0 furosemide 20 MG tablet 40 mg PO DAILY RF: 0 albuterol sulfate 2.5 MG/3 ML solution for nebulization 3 ml IN Q4H PRN PRNRF: 0 pantoprazole 40 MG tablet,delayed release (DR/EC) 40 mg PO BID Qty: 0 RF: 0 Pradaxa 75 MG capsule 150 mg PO BID Qty: 0 RF: 0 acidophilus-pectin, citrus 25 million cell -100 mg Tablet 1 cap PO TID Qty: 90 RF: 0 Myrbetriq 50 mg Tablet Extended Release 24 Hr 50 mg PO DAILY Qty: 30 RF: 0 sennosides [senna] 8.6 mg Tablet 8.6 mg PO HS RF: 0 docusate sodium [Colace] 100 mg Capsule 100 mg PO BID RF: 0 albuterol sulfate [ProAir HFA] 90 mcg/actuation Hfa Aerosol Inhaler 2 puff Inhalation QID PRN PRNRF: 0 ondansetron 4 mg Tablet,Disintegrating 4 mg PO QID PRNRF: 0 ursodiol 250 mg tablet 250 mg PO BID RF: 0 sucralfate [Carafate] 1 gram tablet 1 g PO BID Qty: 20 RF: 0 multivitamin [Tab-A-Raghu] Tablet 1 tab PO DAILY RF: 0 diclofenac sodium 1 % gel TOPICAL BID RF: 0 Discharge Instructions Instructions: Acute Nausea and Vomiting (ED) Additional Instructions: your blood work and cat scan did not show any concerning findings follow up with your primary care provider as soon as possible if worsening pain, persistent vomit or if you feel more ill return to the emerg ency department Medical Decision Making 85 yo male with hx of pacemaker, afib/flutter on pradaxa, anxiety, copd, cph, htn, ckd, who comes in with chief complaint of left upper abdominal pain and feeling nausea and several episodes of vomit. Denies fevers, chills, chest pain, travel. He localizes the pain on exam to his epigastric area and luq and is tender with palpation in this area. Could be gastritis vs gastroenteritis though has no diarrhea, will obtain lab work and CT to evaluate for entities such as pancreatitis, hepatitis, sbo. No pain out of proportion to exam so doubt mesenteric ischemia. labs show positive nitrites which he chronically has, denies any changes in urine color or other symptoms to suggest uti suspect chronic colonization and do not feel antibiotics indicated. No acute findings on imaging and he feels better and has been drinking water without any vomit and has no tenderness on exam. Given able to tolerate po and no vomit here and no longer having pain feel he can be d/c'd with f/u with pcp and discussed extensively return indications and precautions Differential Diagnosis Differential Diagnosis: sbo, pancreatitis, gastoenteritis Medical Records Medical records reviewed: Yes I reviewed the patient's medical records. Imaging Data Radiologic Study: Attestation: I personally reviewed and interpreted this imaging study as follows: Imaging: CT Scan Radiologist's impression: FINDINGS: ABDOMEN: Lung Bases: Dependent atelectasis. Liver: Normal density. No measurable mass. There is focal fatty infiltration in the liver adjacent to the gallbladder fossa. Portal, Superior Mesenteric, and Splenic Veins: Unremarkable. Gallbladder and Biliary Tract: Status post cholecystectomy. No biliary ductal dilatation. Pancreas: Normal density, no abnormal calcifications or inflammatory process. Spleen: Calcified granuloma. Adrenals: No masses seen. Kidneys: Normal size, contour and axis. No radiodense stones or obstructive uropathy. There are tiny hypodensities seen in the kidneys. They are too small for further characterization but likely reflect small cysts. Abdominal Aorta: Abdominal portion non-dilated. Marked atherosclerosis. Bowel: No obstruction or bowel wall thickening. No evidence of appendicitis. Extensive diverticulosis in the descending and sigmoid colon but no evidence of acute diverticulitis. Peritoneal Cavity: No ascites, collection or mesenteric inflammatory response. No free air. Lymph Nodes: Within normal limits. Bones: Degenerative changes. The findings do result in marked multilevel central spinal canal stenosis. The findings are most marked at L3-4, L4-5 and L5-S1. There is a left convex scoliosis. Soft Tissues: Bilateral fat containing inguinal hernia. PELVIS: Bladder: The urinary bladder is nondistended. There is a suprapubic catheter. Reproductive Organs: Marked enlargement of the prostate gland. Lymph Nodes: Within normal limits. Bones: Please see above. IMPRESSION: 1. No evidence of bowel obstruction or inflammatory process. 2. Chronic findings in the abdomen and pelvis as described above. 3. Results of this exam have been verbally communicated with provider. Radiologic Study #2: Attestation: I personally reviewed and interpreted this imaging study as follows: Imaging: X-Ray Radiologist's impression: no acute findings Lab Data Lab results reviewed: Yes I reviewed the patient's lab results. ECG Data Attestation: I personally reviewed and interpreted this ECG (s) as follows: Prior ECG tracings: available for review Interpretation: afib, rate of 92, qtc 459 HPI General Mode of arrival: EMS . Date/Time Provider Initiated Documentation: 08/09/20 11:19 . Limitations to Documentation: no limitations . Information obtained by: patient . History of Present Illness 85 year old M presents to the emergency department with the chief complaint of abdominal pain, described as moderate, Quality is described as aching, Patient started experiencing this day(s) (1) and it has been constant. No relieving factors improve symptom(s), No exacerbating factors reported . Patient notes nausea/vomiting. Patient did receive the following treatments prior to arrival, none Related Data Home Medications Medication Instructions Recorded Confirmed Spiriva with HandiHaler 1 cap INHALATION DAILY 11/08/12 05/12/20 nitroglycerin [Nitrostat] 0.4 mg SUBLINGUAL Q5 MIN PRN X3 05/27/14 05/12/20 PRN #60 tab potassium chloride [Klor-Con M20] 20 meq PO DAILY AM #30 tabcr 07/18/15 05/12/20 Azopt 1 drp OU DAILY drp 09/30/15 05/12/20 latanoprost 1 drp OU HS drp 09/30/15 05/12/20 acetaminophen [Tylenol] 650 mg PO Q4H PRN PRN tab 11/25/15 05/12/20 mirtazapine [Remeron] 15 mg PO HS 03/04/16 05/12/20 levothyroxine 75 mcg PO DAILY@0600 tab 04/13/16 05/12/20 Flovent HFA 2 puff INHALATION BID inh 05/30/16 05/12/20 furosemide 40 mg PO DAILY 10/22/16 05/12/20 cholecalciferol (vitamin D3) 1 tab PO DAILY 08/01/17 05/12/20 albuterol sulfate 3 ml IN Q4H PRN PRN 10/22/17 05/12/20 metoprolol tartrate 75 mg PO BID #270 tab-cap 11/09/17 05/12/20 Fluticasone Propionate [24 Hour 9.9 ml NS BID 12/30/17 05/12/20 Allergy] bisacodyl 10 mg [place] DAILY 12/30/17 05/12/20 pantoprazole 40 mg PO BID #0 02/28/18 05/12/20 Pradaxa 150 mg PO BID #0 cap 03/02/18 05/12/20 Myrbetriq 50 mg PO DAILY #30 tab 08/15/18 05/12/20 acidophilus-pectin, citrus 1 cap PO TID #90 tab 08/15/18 05/12/20 lactulose 10 g PO DAILY 10/29/18 05/12/20 lorazepam [Ativan] 0.5 mg PO TID 10/29/18 05/12/20 albuterol sulfate [ProAir HFA] 2 puff INHALATION QID PRN PRN 11/30/18 05/12/20 docusate sodium [Colace] 100 mg PO BID 11/30/18 05/12/20 ondansetron 4 mg PO QID PRN 11/30/18 05/12/20 sennosides [senna] 8.6 mg PO HS 11/30/18 05/12/20 sucralfate [Carafate] 1 g PO BID #20 tab 03/16/20 05/12/20 ursodiol 250 mg PO BID 03/16/20 05/12/20 diclofenac sodium TOPICAL BID 05/12/20 multivitamin [Tab-A-Raghu] 1 tab PO DAILY 05/12/20 05/12/20 ondansetron 4 mg PO Q8H PRN #30 tab 08/09/20 Previous Rx's Medication Instructions Recorded nitroglycerin [Nitrostat] 0.4 mg SUBLINGUAL Q5 MIN PRN X3 05/27/14 PRN #60 tab potassium chloride [Klor-Con M20] 20 meq PO DAILY AM #30 tabcr 07/18/15 acetaminophen [Tylenol] 650 mg PO Q4H PRN PRN tab 11/25/15 levothyroxine 75 mcg PO DAILY@0600 tab 04/13/16 Flovent HFA 2 puff INHALATION BID inh 05/30/16 metoprolol tartrate 75 mg PO BID #270 tab-cap 11/09/17 pantoprazole 40 mg PO BID #0 02/28/18 Pradaxa 150 mg PO BID #0 cap 03/02/18 Myrbetriq 50 mg PO DAILY #30 tab 08/15/18 acidophilus-pectin, citrus 1 cap PO TID #90 tab 08/15/18 sucralfate [Carafate] 1 g PO BID #20 tab 03/16/20 ondansetron 4 mg PO Q8H PRN #30 tab 08/09/20 Allergies Allergy/AdvReac Type Severity Reaction Status Date / Time banana Allergy Mild Skin Rash Unverified 05/12/20 15:43 formoterol fumarate AdvReac Intermediate Ineffective Unverified 05/12/20 15:43 [From Dulera] per Pt mometasone furoate AdvReac Intermediate Ineffective Unverified 05/12/20 15:43 [From Dulera] per Pt hydrocodone AdvReac Unknown Dizziness/L Unverified 05/12/20 15:43 ightheade General Stated Complaint: Abd Prob CINTIA: 3 Review of Systems All systems reviewed & are unremarkable except as noted in HPI and below Constitutional Constitutional: Denies chills, Denies fever(s) and Denies weakness Cardiovascular Cardiovascular: Denies chest pain and Denies dyspnea Respiratory Respiratory: Denies cough and Denies dyspnea Musculoskeletal Musculoskeletal: Denies joint swelling Neurologic Neurologic: Denies weakness Psychiatric Psychiatric: Denies depression [facility] Medical History (Updated 08/09/20 @ 13:37 by Geovany Valencia MD) Anxiety Atrial fibrillation BPH (benign prostatic hyperplasia) Chronic kidney disease (CKD) Chronic obstructive lung disease Diverticulosis of large intestine without diverticulitis Essential hypertension GERD (gastroesophageal reflux disease) Glaucoma Insomnia Polyp of colon Spinal stenosis of lumbar region Tachycardia-bradycardia Surgical History Colonoscopy - MAC Pacemaker S/P TURP Social History Smoking/Tobacco Use Status: Former Tobacco Use Smoking risk assessment performed?: Yes Alcohol Intake: former Drug use: Never Substance use type: does not use Do you feel safe at home: Yes Do you feel safe in your relationship?: Yes Exam Const General: no acute distress Orientation: alert [facility] Head: normal to inspection Ears: external ears normal General nose exam: external nose normal Mouth: moist mucous membranes Eyes General: appearance normal, both eyes and all related structures Neck Neck: normal visual inspection Resp Effort & Inspection: normal respiratory effort and able to speak in complete sentences Cardio Jugular venous pressure: no JVD GI Palpation: tender Skin General skin exam: no rashes or lesions noted Neuro General: patient alert and patient oriented x3 Extrem General: normal to inspection Psych Mental Status: mental status grossly normal Course Vital Signs Vital signs: Vital Signs Temperature 36.6 C 08/09/20 11:04 Pulse 115 H 08/09/20 11:04 Respiratory Rate 18 08/09/20 11:04 Blood Pressure 122/62 08/09/20 11:04 Pulse Oximetry 97 08/09/20 11:04 Temperature 36.6 C 08/09/20 11:04 Temperature Source Skin 08/09/20 11:04 Pulse 115 H 08/09/20 11:04 Respiratory Rate 18 08/09/20 11:04 Respiratory Effort 08/09/20 11:24 Blood Pressure 122/62 08/09/20 11:04 Pulse Oximetry 97 08/09/20 11:04 Oxygen Delivery Method Room Air 08/09/20 11:04 Oxygen Flow Rate 0 08/09/20 11:04 Pain Level 8 08/09/20 11:04
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
[2020-08-09] MEDS: Normal Saline Flush 10 ML SYR IVP ×2 (11:39→12:16)
[2020-08-09] MEDS: Ondansetron 4 MG/2 ML VIAL IVP (11:39)
[2020-08-09 11:40] LABS: Abs Immature Grans 0.04 10^3/uL (0.0-0.06); Absolute Basophil Count 0.04 10^3/uL (0.0-0.2); Absolute Eosinophil Count 0.05 10^3/uL (0.0-0.7); Absolute Lymphocyte Count 1.38 10^3/uL (1.2-3.4); Absolute Monocyte Count 0.83 10^3/uL (0.1-0.8); Absolute Neutrophil Count 7.32 10^3/uL (1.2-6.7); Basophils % 0.4; Eosinophils % 0.5; HCT 51.9 % (40.0-50.0); HGB 16.7 g/dL (13.5-17.5); Immature Grans % 0.4; Lymphocytes % 14.3; MCH 30.8 pg (27.0-33.0); MCHC 32.2 % (32.0-36.0); MCV 95.8 fL (80-95); MPV 10.1 fL (8.0-11.0); Monocytes % 8.6; Neutrophils % 75.8; Nucleated RBC 0 %; Platelet Count 232 10^3/uL (130-400); RBC 5.42 10^6/uL (4.36-5.78); RDW 14.9 % (11.8-14.1); RDW-SD 52.5 fL; WBC 9.66 10^3/uL (4.4-10.8)
[2020-08-09 11:55] LABS: ALT 24 U/L (16-63); AST 32 U/L (15-37); Albumin 3.7 g/dL (3.4-5.0); Alkaline Phosphatase 118 U/L (46-116); Anion Gap 8.5 mmol/L (3-11); BUN 20 mg/dL (7-18); Bilirubin, Direct 0.47 mg/dL (0.00-0.20); Bilirubin, Total 1.2 mg/dL (0.2-1.0); CO2 31.5 mmol/L (21.0-32.0); CREATININE 1.7 mg/dL (0.70-1.30); Chloride 103 mmol/L (98-107); Estimated GFR 38.59 (mL/min/1.73m2); Glucose 114 mg/dL (74-106); Lipase 62 U/L (73-393); Magnesium 2.7 mg/dL (1.8-2.4); Potassium 4.7 mmol/L (3.5-5.1); Sodium 143 mmol/L (136-145); Total Protein 8.1 g/dL (6.4-8.2)
[2020-08-09 11:55] LABS: Bilirubin Negative (Negative); Blood Trace-lysed (Negative); Clarity Clear (Clear); Glucose Negative (Negative); Ketones Negative (Negative); Leukocyte Esterase Trace (Negative); Nitrite Positive (Negative); Urobilinogen 0.2 EU/dL (Up TO 0.2)
[2020-08-09 11:58] LABS: INR 1.3 (0.9-1.1); PTT Activated 38.1 sec (21.0-27.5); Prothrombin Time 13.4 sec (9.3-11.0)
[2020-08-09 12:00] LABS: Troponin I < 0.05 ng/mL (<0.06)
[2020-08-09 12:03] LABS: Bacteria Few HPF (Negative); C & S Indicated? Yes; Casts Negative LPF (Negative); Crystals Negative HPF (Negative); Epithelial Cells Negative HPF (Negative); Mucus Negative (Negative); RBC 0-2 HPF (0-2); WBC 0-2 HPF (0-5)
[2020-08-09] MEDS: Omnipaque 350 MG/ML 100 ML BTL IV (12:14)
[2020-08-09] MEDS: Normal Saline - Diluent 50 ML VIAL IV (12:15)
--- NOTE | 2020-08-09 20:28 | NUR.NOTE ---
referral for PCP follow up care regarding today's Ed visit as requested by DR. Valencia. Nursing Note:
--- NOTE | 2020-08-12 15:04 | PDOC.ERCMACT ---
- If Service Date Differs Date of service: 08/12/20 Time of Service: 15:04 Care Management Activity Note Dino is seen in the ED on 08/09/2020 for abdominal pain and n/v. At the request of ED provider, [facility] contacts Dino's PCP, Lorena Chong MD, of [facility], and requests that a follow up appointment be scheduled for patient.
== END 2020-08-09 14:40 | disposition home or self-care (01) ==
PROVIDERS: Emergency Provider Emergency Medicine; PCP Family Medicine
DX: R11.2 Nausea with vomiting, unspecified (principal); R10.12 Left upper quadrant pain; R10.13 Epigastric pain
CPT/HCPCS: 80053; 83690; 87077; 93005; 96374; 99285; 71046; 74177; 81003; 81015; 82248; 83735; 84484; 85025; 85610; 85730; 87086; 87186; 93010; 99284; J2405; J3490

== ENCOUNTER 2020-08-12 15:52 | Outpatient (REF) | payer MEDICARE, MEDICAID, SELFPAY ==
[2020-08-13 13:46] LABS: COVID-19 RT-PCR UVMMC Result Negative (Negative)
== END 2020-08-12 15:53 | disposition home or self-care (01) ==
LOC: NCHCN 15:52
PROVIDERS: PCP Family Medicine; Visit Provider Family Medicine
DX: Z20.822 Contact with and (suspected) exposure to COVID-19 (principal); R06.02 Shortness of breath
CPT/HCPCS: U0003; U0005

== ENCOUNTER 2020-09-04 13:22 | Emergency (ER) | payer MEDICARE, MEDICAID, SELFPAY ==
[2020-09-04 13:49] VITALS: BP 124/83; PULSE 84; RESP 16; TEMP 36.5; O2SAT 98
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
--- NOTE | 2020-09-04 14:07 | W.ED.GENAD ---
Discharge Plan Disposition Patient Disposition: HOME Condition: Good Discharge Details Clinical Impression: Shoulder strain, At high risk for falls Primary Care Provider: Lorena Chong ED Provider: Niesha Reed Home Meds and New Rx's Prescriptions: No Action nitroglycerin [Nitrostat] 0.4 MG tablet, sublingual 0.4 mg Sublingual Q5 MIN PRN X3 PRNQty: 60 RF: 0 potassium chloride [Klor-Con M20] 20 MEQ tablet,ER particles/crystals 20 meq PO DAILY AM Qty: 30 RF: 0 acetaminophen [Tylenol] 325 MG tablet 650 mg PO Q4H PRN PRNRF: 0 mirtazapine [Remeron] 15 MG tablet 15 mg PO HS RF: 0 levothyroxine 75 MCG tablet 75 mcg PO DAILY@0600 RF: 0 cholecalciferol (vitamin D3) 1,000 UNITS tablet 1 tab PO DAILY RF: 0 bisacodyl 10 MG suppository 10 mg MO DAILY PRNRF: 0 Fluticasone Propionate [24 Hour Allergy] 9.9 ML [place].Susp 9.9 ml NS BID RF: 0 lorazepam [Ativan] 0.5 mg Tablet 0.5 mg PO TID RF: 0 lactulose 10 gram/15 mL Solution 10 g PO DAILY RF: 0 latanoprost 0.005 % Drops 1 drp ophthalmic (eye) HS RF: 0 Azopt 1 % Drops,Suspension 1 drp ophthalmic (eye) DAILY RF: 0 magnesium hydroxide 400 mg/5 mL Suspension 30 ml PO DAILY PRNRF: 0 phenazopyridine [Pyridium] 100 mg Tablet 100 mg PO BID PRNRF: 0 morphine 100 mg/5 mL Concentrate 0.5 mg PO TID PRNRF: 0 ranitidine HCl 150 mg Tablet 150 mg PO BID RF: 0 albuterol sulfate [Ventolin HFA] 90 mcg/actuation Hfa Aerosol Inhaler 2 puff INHALATION QID PRN PRNRF: 0 oxycodone 5 mg Tablet 5 mg PO TID RF: 0 Spiriva with HandiHaler 18 mcg capsule, w/inhalation device 1 cap INHALATION DAILY RF: 0 pantoprazole 40 MG tablet,delayed release (DR/EC) 40 mg PO DAILY RF: 0 metoprolol tartrate 50 MG tablet 75 mg PO BID RF: 0 Flovent HFA 120 PUFF HFA aerosol inhaler 2 puff Inhalation DAILY RF: 0 levofloxacin [Levaquin] 500 mg Tablet 500 mg PO DAILY RF: 0 diclofenac sodium [Voltaren] 1 % Gel 1 applic TOPICAL BID RF: 0 furosemide 20 MG tablet 40 mg PO DAILY RF: 0 albuterol sulfate 2.5 MG/3 ML solution for nebulization 3 ml IN Q4H PRN PRNRF: 0 acidophilus-pectin, citrus 25 million cell -100 mg Tablet 1 cap PO TID Qty: 90 RF: 0 Myrbetriq 50 mg Tablet Extended Release 24 Hr 50 mg PO DAILY Qty: 30 RF: 0 sennosides [senna] 8.6 mg Tablet 8.6 mg PO HS RF: 0 docusate sodium [Colace] 100 mg Capsule 100 mg PO BID RF: 0 ondansetron 4 mg Tablet,Disintegrating 4 mg PO QID PRNRF: 0 ursodiol 250 mg tablet 250 mg PO BID RF: 0 sucralfate [Carafate] 1 gram tablet 1 g PO BID Qty: 20 RF: 0 multivitamin [Tab-A-Raghu] Tablet 1 tab PO DAILY RF: 0 ondansetron 4 mg tablet,disintegrating 4 mg PO Q8H PRN (Reason: nausea and vomiting) Qty: 30 RF: 0 Discharge Instructions Instructions: Shoulder Pain (ED) Additional Instructions: Continue your home health therapy, please add on physical therapy Take Tylenol in addition to your chronic pain medications Please return earlier should you have new or worsening complaints Always use your walker with ambulation Medical Decision Making I did consider giving patient explain, however given the running water anything complaints playing with the base He did have PT performed evaluation and he feels the patient with benefit from 24-hour care, patient declined, he is alert, oriented, of decisional capacity He is declining admission He is agreeable to having physical therapy again offer services as pulmonary has home health candy department manager was consulted and will be involved in future care We will take Tylenol as needed for pain Take morphine chronically No dislocation no fracture, right shoulder CT head and neck do not show acute pathology per radiology interpretation I reviewed Patient her x-ray did not show acute abnormality Return precautions discussed and patient expressed understanding Differential Diagnosis Differential Diagnosis: Subdural hematoma, fracture, strain, dislocation Medical Records Medical records reviewed: Yes I reviewed the patient's medical records. HPI This 85-year-old gentleman with medical history of pacemaker, palliative care patient, paroxysmal atrial fibrillation, indwelling Kang catheter, tachybradycardia syndrome, shortness of breath with exertion, presents after trip and fall just prior to arrival. He was [place] and fell. He landed on his right shoulder and hit his head. He denies loss of consciousness. He denies any nausea or vomiting. He was able to bring himself to the emergency room. He denies dizziness or weakness. His pain is predominantly in his right shoulder. He does take Pradaxa. There is no additional anticoagulation. He denies any chest pain or shortness of breath. He denies any injuries to his lower extremities. He has been able to ambulate reportedly since the event occurred. He denies any additional complaints at this time. General Date/Time Provider Initiated Documentation: 09/04/20 13:39]. Related Data Home Medications Medication Instructions Recorded Confirmed nitroglycerin [Nitrostat] 0.4 mg SUBLINGUAL Q5 MIN PRN X3 05/27/14 09/04/20 PRN #60 tab potassium chloride [Klor-Con M20] 20 meq PO DAILY AM #30 tabcr 07/18/15 09/04/20 acetaminophen [Tylenol] 650 mg PO Q4H PRN PRN tab 11/25/15 09/04/20 mirtazapine [Remeron] 15 mg PO HS 03/04/16 09/04/20 levothyroxine 75 mcg PO DAILY@0600 tab 04/13/16 09/04/20 furosemide 40 mg PO DAILY 10/22/16 09/04/20 cholecalciferol (vitamin D3) 1 tab PO DAILY 08/01/17 09/04/20 albuterol sulfate 3 ml IN Q4H PRN PRN 10/22/17 09/04/20 Fluticasone Propionate [24 Hour 9.9 ml NS BID 12/30/17 09/04/20 Allergy] bisacodyl 10 mg MO DAILY PRN 12/30/17 09/04/20 Myrbetriq 50 mg PO DAILY #30 tab 08/15/18 09/04/20 acidophilus-pectin, citrus 1 cap PO TID #90 tab 08/15/18 09/04/20 lactulose 10 g PO DAILY 10/29/18 09/04/20 lorazepam [Ativan] 0.5 mg PO TID 10/29/18 09/04/20 docusate sodium [Colace] 100 mg PO BID 11/30/18 09/04/20 ondansetron 4 mg PO QID PRN 11/30/18 09/04/20 sennosides [senna] 8.6 mg PO HS 11/30/18 09/04/20 sucralfate [Carafate] 1 g PO BID #20 tab 03/16/20 09/04/20 ursodiol 250 mg PO BID 03/16/20 09/04/20 multivitamin [Tab-A-Raghu] 1 tab PO DAILY 05/12/20 09/04/20 ondansetron 4 mg PO Q8H PRN #30 tab 08/09/20 09/04/20 Flovent HFA 2 puff INHALATION DAILY 09/04/20 09/04/20 albuterol sulfate [Ventolin HFA] 2 puff INHALATION QID PRN PRN 09/04/20 09/04/20 brinzolamide [Azopt] 1 drp OPHTHALMIC (EYE) DAILY 09/04/20 09/04/20 diclofenac sodium [Voltaren] 1 applic TOPICAL BID 09/04/20 09/04/20 latanoprost 1 drp OPHTHALMIC (EYE) HS 09/04/20 09/04/20 levofloxacin [Levaquin] 500 mg PO DAILY 09/04/20 09/04/20 magnesium hydroxide 30 ml PO DAILY PRN 09/04/20 09/04/20 metoprolol tartrate 75 mg PO BID 09/04/20 09/04/20 morphine 0.5 mg PO TID PRN 09/04/20 09/04/20 oxycodone 5 mg PO TID 09/04/20 09/04/20 pantoprazole 40 mg PO DAILY 09/04/20 09/04/20 phenazopyridine [Pyridium] 100 mg PO BID PRN 09/04/20 09/04/20 ranitidine HCl 150 mg PO BID 09/04/20 09/04/20 tiotropium bromide [Spiriva with 1 cap INHALATION DAILY 09/04/20 09/04/20 HandiHaler] Previous Rx's Medication Instructions Recorded nitroglycerin [Nitrostat] 0.4 mg SUBLINGUAL Q5 MIN PRN X3 05/27/14 PRN #60 tab potassium chloride [Klor-Con M20] 20 meq PO DAILY AM #30 tabcr 07/18/15 acetaminophen [Tylenol] 650 mg PO Q4H PRN PRN tab 11/25/15 levothyroxine 75 mcg PO DAILY@0600 tab 04/13/16 Myrbetriq 50 mg PO DAILY #30 tab 08/15/18 acidophilus-pectin, citrus 1 cap PO TID #90 tab 08/15/18 sucralfate [Carafate] 1 g PO BID #20 tab 03/16/20 ondansetron 4 mg PO Q8H PRN #30 tab 08/09/20 Allergies Allergy/AdvReac Type Severity Reaction Status Date / Time banana Allergy Mild Skin Rash Unverified 09/04/20 13:53 formoterol fumarate AdvReac Intermediate Ineffective Unverified 09/04/20 13:53 [From Dulera] per Pt mometasone furoate AdvReac Intermediate Ineffective Unverified 09/04/20 13:53 [From Dulera] per Pt hydrocodone AdvReac Unknown Dizziness/L Unverified 09/04/20 13:53 ightheade General Stated Complaint: Orthopedic CINTIA: 4 Review of Systems Narrative: Review of systems obtained x7 and aside from where indicated in HPI, no acute findings, specifically no dizziness, syncope, history of coagulopathy, chest pain, shortness of breath PFSH Medical History (Updated 09/04/20 @ 16:26 by RADHA Martinez) Anxiety Atrial fibrillation BPH (benign prostatic hyperplasia) Chronic kidney disease (CKD) Chronic obstructive lung disease Diverticulosis of large intestine without diverticulitis Essential hypertension GERD (gastroesophageal reflux disease) Glaucoma Insomnia Polyp of colon Spinal stenosis of lumbar region Tachycardia-bradycardia Surgical History Colonoscopy - MAC Pacemaker S/P TURP Social History Smoking/Tobacco Use Status: Former Tobacco Use Smoking risk assessment performed?: Yes Alcohol Intake: former Drug use: Never Substance use type: does not use Do you feel safe at home: Yes Do you feel safe in your relationship?: Yes Exam Const Other: Chronically ill and frail appearing, alert and oriented x4 HENMT Other: Uvula midline, no hemotympanum, no visible signs of trauma Eyes Pupils: PERRL Neck Other: No midline tenderness Resp Effort & Inspection: normal respiratory effort Auscultation: clear to auscultation bilaterally Cardio Rate: regular rate Rhythm: regular rhythm GI Inspection: normal to inspection Other: No tenderness or visible sign of trauma Back/Spine/Pelvis Back: no CVA tenderness Other: No thoracic or lumbar spine tenderness Neuro General: patient alert and patient oriented x3 Cranial Nerves: CN's II-XI intact bilaterally Other: GCS 15, sensation intact distally, strength. 3/5 bilateral upper and lower extremities Distal pulses intact Extrem General: capillary refill normal Other: Right shoulder tenderness, no obvious deformity, no redness to right elbow or right wrist No tenderness to right hip, knee Course Vital Signs Vital signs: Vital Signs Temperature 36.5 C 09/04/20 13:49 Pulse 84 09/04/20 13:49 Respiratory Rate 16 09/04/20 13:49 Blood Pressure 124/83 09/04/20 13:49 Pulse Oximetry 98 09/04/20 13:49 Temperature 36.5 C 09/04/20 13:49 Temperature Source Skin 09/04/20 13:49 Pulse 84 09/04/20 13:49 Respiratory Rate 16 09/04/20 13:49 Blood Pressure 124/83 09/04/20 13:49 Blood Pressure Position Sitting 09/04/20 13:49 Pulse Oximetry 98 09/04/20 13:49 Oxygen Delivery Method Room Air 09/04/20 13:49 Oxygen Flow Rate 0 09/04/20 13:49 Pain Level 8 09/04/20 13:49
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
--- NOTE | 2020-09-04 15:44 | PT.INIE ---
Date of service: 09/04/20 Time of Service: 15:44 PT Notes Physical Therapy Inpatient Initial Evaluation Date: 09/04/2020 Referring Doctor: PT Orders: PT CONSULT: RADHA Martinez Precautions: Fall. Standard. Activity as tolerated. Patient Profile/Admitting Diagnosis: Patient is an 85-year-old male patient who tipped and feel at home landing on his right shoulder hitting his head. CT of head and neck showed no acute intracranial process. Shoulder x-ray did not exhibit fracture/dislocation. Referral sent to assess safety of discharge to home. PMHX: Medical History (Updated 09/04/20 @ 16:26 by RDAHA Martinez) Anxiety Atrial fibrillation BPH (benign prostatic hyperplasia) Chronic kidney disease (CKD) Chronic obstructive lung disease Diverticulosis of large intestine without diverticulitis Essential hypertension GERD (gastroesophageal reflux disease) Glaucoma Insomnia Polyp of colon Spinal stenosis of lumbar region Tachycardia-bradycardia Surgical History Colonoscopy - MAC Pacemaker S/P TURP Social History/Home Situation: Lives alone in a private home with 6 steps to enter and rails on B sides. Has neighbors who he says are available to help as needed. Modified independent indoors and outdoors using his 4WW. Equipment Owned/DME: 4WW, FWW Subjective: Agreeable to PT consult. Refused going to SNF. Adamant about going home and getting the services he needs at home. Complained of pain in R shoulder. Reports that his left knee has continues to be weak and prone to buckling. Complains of pain in R shoulder at 4-5/10 while ambulating using the FWW. Objective: General Observation: Seated on wheelchair inside ED room. Towel holding R shoulder up as a sling. Face shield on. Appears mildly anxious. Mental Status: Alert and oriented x 4 Pain: 4-5/10 pain in R shoulder ROM: Right Upper Extremity: Unable to lift R shoulder beyond 90 degrees due to pain and anxiety. Elbow flexion WFL. Wrist flexion WFL. Opening and closing of hand WFL. Left Upper Extremity: Shoulder Flexion WFL. Shoulder abduction WFL. Elbow flexion WFL. Wrist flexion WFL. Opening and closing of hand WFL. Right Lower Extremity: Hip flexion WFL. Hip abduction WFL. Knee flexion WFL. Ankle dorsiflexion WFL. Ankle plantarflexion WFL. Left Lower Extremity: Hip flexion WFL. Hip abduction WFL. Knee flexion WFL. Ankle dorsiflexion WFL. Ankle plantarflexion WFL. Strength: Right Upper Extremity: Shoulder flexors 3-/5. Shoulder abductors 3-/5. Elbow flexors 4-/5. Elbow extensors 4-/5. Celery Stripper strong. Left Upper Extremity: Shoulder flexors 4-/5. Shoulder abductors 4-/5. Elbow flexors 4-/5. Elbow extensors 4-/5. Celery Stripper strong. Right Lower Extremity: Hip flexors 4-/5. Hip abductors 4-/5. Knee flexors 4-/5. Knee extensors 4-/5. Ankle dorsiflexors 4-/5. Ankle plantarflexors 4-/5. Left Lower Extremity: Hip flexors 4-/5. Hip abductors 4-/5. Knee flexors 4-/5. Knee extensors 3+/5. Ankle dorsiflexors 4-/5. Ankle plantarflexors 4-/5. Sensation: Intact as to pain and pressure on bilateral lower extremities. Bed Mobility/Transfers: Rolling Independent Supine to sit Independent Sit to supine Independent Sit to stand Supervision Stand to sit Supervision Bed to chair Supervision Chair to bed Supervision Gait: Guided patient through level surface ambulation of up to 150 feet using the FWW with report of 4-5/10 pain in R shoulder. Step-through heel-toe gait pattern. No buckling of L knee. Age-related reduction in jose. Denies headache, dizziness, chest pain. Balance: Static Sitting: Normal Dynamic Sitting: Normal Static Standing: Fair Dynamic Standing: Fair Special Tests: Mobility Limitations Standardized Measure [facility] 6 clicks Basic Mobility Inpatient Short Form: Raw Score: 20 CMS Score: 36% deficit 4-stage Balance test: Unable to maintain semi-tandem, full tandem, and one-legged stance for 10 seconds indicating high risk for falls without use of FWW. Informed Consent/Education: Patient instructed in purpose of PT consult and plan of care. Assessment: Dino demonstrates the need for an assistive ambulatory device for all mobility ADL performance to maximize independence and reduce fall risk at home, decreased activity tolerance due to pain in R shoulder, and balance impairment. He will benefit from HH PT services in order to reduce fall risk at home and progress balance/sterngth level. Patient presents with clinical signs and symptoms consistent with current/admitting diagnoses that have resulted to mobility limitations, gait instability, generalized weakness, and impairment of motor control as demonstrated by the following impairment level findings: 1. Decreased strength to R UE/R LE major muscle groups 2. Impaired standing balance 3. Impaired activity tolerance 4. Limitation of joint range of motion in R shoulder 5. Pain in R shoulder Impairments are contributing to the following functional limitations: 1. Inability to safely ambulate without assistive device 2. Increase completion time for mobility ADL performance 3. Increased fall risk 4. Inability to negotiate steps alone safely Patient is assessed as a 31896 complexity based on the following: History: 85-year-old male with impairment level findings, functional limitations, and past medical history as indicated above Examination: Demonstrable impairment in strength, balance, and mobility level with underlying impairments and functional limitations as documented above Presentation:Evolving Decision Makin moderate complexity Goals: N/A. PT evalaution only. Plan of Care/Treatment Plan: N/A. PT evalaution only. DISCHARGE RECOMMENDATIONS: PT services to increase strength, improve balance skills, and reduce fall risk at home. TREATMENT CODE/TIME: 77617 x 31 minutes beginning at 15:44 PM. Thank you for the opportunity to participate in the care of this patient. Elsa Menchaca PT, DPT, CLT [facility] [place], [place]
--- NOTE | 2020-09-04 15:50 | NUR.NOTE ---
Franklyn Jay [phone]
[2020-09-04 16:43] VITALS: BP 115/88; PULSE 68; RESP 18; O2SAT 98
== END 2020-09-04 16:48 | disposition home or self-care (01) ==
PROVIDERS: Emergency Provider Physician Assistant; PCP Family Medicine
DX: S46.811A Strain of other muscles, fascia and tendons at shoulder and upper arm level, right arm, initial encounter (principal); W01.198A Fall on same level from slipping, tripping and stumbling with subsequent striking against other object, initial encounter; Z79.01 Long term (current) use of anticoagulants; Z91.81 History of falling
CPT/HCPCS: 97162; 99284; 70450; 72125; 73030

== ENCOUNTER 2020-09-06 13:18 | Emergency (ER) | payer MEDICARE, MEDICAID, SELFPAY ==
[2020-09-06 13:41] VITALS: BP 123/70; PULSE 82; RESP 20; TEMP 36; O2SAT 98
[2020-09-06] MEDS: Oxybutynin-CR 5 MG TABCR PO (15:18)
[2020-09-06] MEDS: Phenazopyridine 200 MG TAB PO (15:18)
[2020-09-06 15:20] LABS: Bilirubin Negative (Negative); Blood Large (Negative); Clarity Cloudy (Clear); Glucose Negative (Negative); Ketones Negative (Negative); Leukocyte Esterase Negative (Negative); Nitrite Negative (Negative); Specific Gravity 1.025 (1.005-1.025); Urobilinogen 0.2 EU/dL (Up TO 0.2)
[2020-09-06 15:24] LABS: RBC >50 HPF (0-2)
[2020-09-06 15:25] LABS: C & S Indicated? No
--- NOTE | 2020-09-06 15:46 | ED.GENADUL_ITS ---
Discharge Plan Disposition Patient Disposition: HOME Condition: Stable Discharge Details Clinical Impression: Hematuria Primary Care Provider: Lorena Chong ED Provider: Ben Saucedo Home Meds and New Rx's Prescriptions: New oxybutynin chloride [Ditropan XL] 5 mg tablet extended release 24hr 5 mg PO DAILY Qty: 10 RF: 0 Continued nitroglycerin [Nitrostat] 0.4 MG tablet, sublingual 0.4 mg Sublingual Q5 MIN PRN X3 PRNQty: 60 RF: 0 potassium chloride [Klor-Con M20] 20 MEQ tablet,ER particles/crystals 20 meq PO DAILY AM Qty: 30 RF: 0 acetaminophen [Tylenol] 325 MG tablet 650 mg PO Q4H PRN PRNRF: 0 mirtazapine [Remeron] 15 MG tablet 15 mg PO HS RF: 0 levothyroxine 75 MCG tablet 75 mcg PO DAILY@0600 RF: 0 cholecalciferol (vitamin D3) 1,000 UNITS tablet 1 tab PO DAILY RF: 0 bisacodyl 10 MG suppository 10 mg DC DAILY PRNRF: 0 Fluticasone Propionate [24 Hour Allergy] 9.9 ML [place].Susp 9.9 ml NS BID RF: 0 lorazepam [Ativan] 0.5 mg Tablet 0.5 mg PO TID RF: 0 lactulose 10 gram/15 mL Solution 10 g PO DAILY PRN (Reason: Constipation) RF: 0 latanoprost 0.005 % Drops 1 drp ophthalmic (eye) HS RF: 0 Azopt 1 % Drops,Suspension 1 drp ophthalmic (eye) DAILY RF: 0 magnesium hydroxide 400 mg/5 mL Suspension 30 ml PO DAILY PRNRF: 0 morphine 100 mg/5 mL Concentrate 0.5 mg PO TID PRNRF: 0 albuterol sulfate [Ventolin HFA] 90 mcg/actuation Hfa Aerosol Inhaler 2 puff INHALATION QID PRN PRNRF: 0 oxycodone 5 mg Tablet 5 mg PO TID PRNRF: 0 Spiriva with HandiHaler 18 mcg capsule, w/inhalation device 1 cap INHALATION DAILY RF: 0 pantoprazole 40 MG tablet,delayed release (DR/EC) 40 mg PO DAILY RF: 0 metoprolol tartrate 50 MG tablet 75 mg PO BID RF: 0 Flovent HFA 120 PUFF HFA aerosol inhaler 2 puff Inhalation DAILY RF: 0 ropinirole 1 mg tablet 1 mg PO HS RF: 0 Pradaxa 150 mg capsule 150 mg PO BID RF: 0 furosemide 20 MG tablet 40 mg PO DAILY RF: 0 albuterol sulfate 2.5 MG/3 ML solution for nebulization 3 ml IN Q4H PRN PRNRF: 0 Myrbetriq 50 mg Tablet Extended Release 24 Hr 50 mg PO DAILY Qty: 30 RF: 0 sennosides [senna] 8.6 mg Tablet 8.6 mg PO HS RF: 0 docusate sodium [Colace] 100 mg Capsule 100 mg PO BID RF: 0 ondansetron 4 mg Tablet,Disintegrating 4 mg PO QID PRNRF: 0 ursodiol 250 mg tablet 250 mg PO BID RF: 0 multivitamin [Tab-A-Raghu] Tablet 1 tab PO DAILY RF: 0 Discharge Instructions Instructions: Hematuria (ED) Additional Instructions: At this time your vital signs are unremarkable, you appear hemodynamically stable. Ditropan XL as directed. Please watch for new or worsening symptoms a nd return to the ER for any concerns. Your urine has no signs of obvious infection. I personally discussed the case with Dr. Hendricks who is aware of your ER visit. He is comfortable with this plan and is happy to follow you in his office as an outpatient. I recommend contacting his office on Wednesday. Referrals: David Hendricks MD [ [facility] STAFF PHYSICIAN] - Discharge Data Discharge Date/Time-TO BE ENTERED AT DEPARTURE: 09/06/20 16:06 Medical Decision Making 85-year-old gentleman with history of suprapubic catheter, had a change routinely yesterday by home health. Was asymptomatic prior, states it was changed without difficulty, but subsequently had bladder spasms and noted blood in his urine. Clinically he appears well, nontoxic, hemodynamically stable. He reports that he is pain-free unless he has a spasm. He also reports that he is hungry and would like to dinner. Situation is certainly more complicated given he is on Pradaxa. Given the hematuria occurred after the catheter was changed, likely traumatic in nature, I do not believe that obtaining IV access or blood work is likely indicated. I would like to give him a single dose of Ditropan and Pyridium here in the ER, obtain urinalysis, observe, and reassess. During my initial evaluation, patient had what appeared to be moderately bloody urine in his catheter bag, with approximately 10-15 cc. No clots present. Patient was able to eat dinner without difficulty. Seemed to feel better after the p.o. medications were given, per patient, less spasms. Patient remained hemodynamically stable under my care. Urinalysis revealed large blood, greater than 50 red cells. Unfortunately not much else able to be determined given the red cells obscured the entire microscopic field. Clinically low suspicion for acute UTI. Case discussed with Dr. Hendricks. The suprapubic catheter seem to be draining appropriately. Patient remains hemodynamically stable. No clear evidence of infection. Dr. Hendricks is happy to follow the patient in his office and does not recommend any additional therapy here in the ER. He believes that short-term prescription for Ditropan is reasonable. I discussed this consultation with the patient who is comfortable with this plan. He has no additional questions or concerns comfortable discharge. She will contact the office of Dr. Hendricks on Wednesday to expedite outpatient care. Medical Records Medical records reviewed: Yes I reviewed the patient's medical records. Lab Data Lab results reviewed: Yes I reviewed the patient's lab results. Lab results narrative: Laboratory Tests Range/Units 09/06/20 14:57 Urine Color (Yellow) Red Urine Clarity (Clear) Cloudy Urine pH (5-8) 6.0 Ur Specific [place] (1.005-1.025) 1.025 Urine Protein (Negative) mg/dL >=300 H Urine Ketones (Negative) mg/dL Negative Urine Blood (Negative) Large H Urine Nitrite (Negative) Negative Urine Bilirubin (Negative) Negative Urine Urobilinogen (Up TO 0.2) EU/dL 0.2 Ur Leukocyte Esterase (Negative) Negative Urine RBC (0-2) HPF >50 H Urine WBC Not Applicable Ur Epithelial Cells Not Applicable Urine Crystals Not Applicable Urine Bacteria Not Applicable Urine Mucus Not Applicable Ur Culture Indicated? No Urine Glucose (Negative) mg/dL Negative HPI General Mode of arrival: EMS . Date/Time Provider Initiated Documentation: 09/06/20 13:37 . Limitations to Documentation: no limitations . Information obtained by: patient . HPI Narrative: This is an 85-year-old gentleman with past medical history of suprapubic catheter, bladder spasms, pacemaker, palliative care patient, proximal A. fib, BPH, anxiety, hypertension, chronic anticoagulation, venous insufficiency, spinal stenosis, GERD, CKD, COPD, former smoker, who presents to the ER via EMS for evaluation. He reports that he has had a suprapubic catheter for quite some time, used to follow Dr. Hendricks, but now has his suprapubic catheter changed regularly at home via home health. He states prior to seeing home health yesterday he was asymptomatic. He was scheduled for routine suprapubic catheter change, it was changed with what he felt was without difficulty. Subsequently he noticed a small amount of blood in his catheter bag and noticed what he describes as a bladder spasm. He has not seen any clots in his urine. Patient denies recent illness or trauma. Denies any fever, chest pain, back pain, abdominal pain, nausea, vomiting, dysuria, pain in his penis or testicles. Related Data Home Medications Medication Instructions Recorded Confirmed nitroglycerin [Nitrostat] 0.4 mg SUBLINGUAL Q5 MIN PRN X3 05/27/14 09/06/20 PRN #60 tab potassium chloride [Klor-Con M20] 20 meq PO DAILY AM #30 tabcr 07/18/15 09/06/20 acetaminophen [Tylenol] 650 mg PO Q4H PRN PRN tab 11/25/15 09/06/20 mirtazapine [Remeron] 15 mg PO HS 03/04/16 09/06/20 levothyroxine 75 mcg PO DAILY@0600 tab 04/13/16 09/06/20 furosemide 40 mg PO DAILY 10/22/16 09/06/20 cholecalciferol (vitamin D3) 1 tab PO DAILY 08/01/17 09/06/20 albuterol sulfate 3 ml IN Q4H PRN PRN 10/22/17 09/06/20 Fluticasone Propionate [24 Hour 9.9 ml NS BID 12/30/17 09/06/20 Allergy] bisacodyl 10 mg DC DAILY PRN 12/30/17 09/06/20 Myrbetriq 50 mg PO DAILY #30 tab 08/15/18 09/06/20 lactulose 10 g PO DAILY PRN 10/29/18 09/06/20 lorazepam [Ativan] 0.5 mg PO TID 10/29/18 09/06/20 docusate sodium [Colace] 100 mg PO BID 11/30/18 09/06/20 ondansetron 4 mg PO QID PRN 11/30/18 09/06/20 sennosides [senna] 8.6 mg PO HS 11/30/18 09/06/20 ursodiol 250 mg PO BID 03/16/20 09/06/20 multivitamin [Tab-A-Raghu] 1 tab PO DAILY 05/12/20 09/06/20 Azopt 1 drp OPHTHALMIC (EYE) DAILY 09/04/20 09/06/20 Flovent HFA 2 puff INHALATION DAILY 09/04/20 09/06/20 Spiriva with HandiHaler 1 cap INHALATION DAILY 09/04/20 09/06/20 albuterol sulfate [Ventolin HFA] 2 puff INHALATION QID PRN PRN 09/04/20 09/06/20 latanoprost 1 drp OPHTHALMIC (EYE) HS 09/04/20 09/06/20 magnesium hydroxide 30 ml PO DAILY PRN 09/04/20 09/06/20 metoprolol tartrate 75 mg PO BID 09/04/20 09/06/20 morphine 0.5 mg PO TID PRN 09/04/20 09/06/20 oxycodone 5 mg PO TID PRN 09/04/20 09/06/20 pantoprazole 40 mg PO DAILY 09/04/20 09/06/20 Pradaxa 150 mg PO BID 09/06/20 09/06/20 oxybutynin chloride [Ditropan XL] 5 mg PO DAILY #10 tab 09/06/20 ropinirole 1 mg PO HS 09/06/20 09/06/20 Previous Rx's Medication Instructions Recorded nitroglycerin [Nitrostat] 0.4 mg SUBLINGUAL Q5 MIN PRN X3 05/27/14 PRN #60 tab potassium chloride [Klor-Con M20] 20 meq PO DAILY AM #30 tabcr 07/18/15 acetaminophen [Tylenol] 650 mg PO Q4H PRN PRN tab 11/25/15 levothyroxine 75 mcg PO DAILY@0600 tab 04/13/16 Myrbetriq 50 mg PO DAILY #30 tab 08/15/18 oxybutynin chloride [Ditropan XL] 5 mg PO DAILY #10 tab 09/06/20 Allergies Allergy/AdvReac Type Severity Reaction Status Date / Time banana Allergy Mild Skin Rash Unverified 09/06/20 13:45 formoterol fumarate AdvReac Intermediate Ineffective Unverified 09/06/20 13:45 [From Dulera] per Pt mometasone furoate AdvReac Intermediate Ineffective Unverified 09/06/20 13:45 [From Dulera] per Pt hydrocodone AdvReac Unknown Dizziness/L Unverified 09/06/20 13:45 ightheade General Stated Complaint: Urinary CINTIA: 3 Review of Systems Constitutional Constitutional: Denies fever(s) Cardiovascular Cardiovascular: Denies chest pain and Denies dyspnea Respiratory Respiratory: Denies dyspnea Gastrointestinal Gastrointestinal: Denies abdominal pain, Denies constipation, Denies diarrhea, Denies nausea and Denies vomiting Genitourinary Genitourinary: Reports hematuria, Denies oliguria, Denies genital pain, Denies dysuria, Denies testicular pain and Reports other (Bladder spasms) Musculoskeletal Musculoskeletal: Denies back pain Integumentary/Breasts Skin/Breast: Denies rash Hematologic/Lymphatic Hematologic/Lymphatic: Reports easy bleeding and Reports easy bruising PFSH Medical History Anxiety Atrial fibrillation BPH (benign prostatic hyperplasia) Chronic kidney disease (CKD) Chronic obstructive lung disease Diverticulosis of large intestine without diverticulitis Essential hypertension GERD (gastroesophageal reflux disease) Glaucoma Insomnia Polyp of colon Spinal stenosis of lumbar region Tachycardia-bradycardia Surgical History Colonoscopy - MAC Pacemaker S/P TURP Social History Smoking/Tobacco Use Status: Former Tobacco Use Smoking risk assessment performed?: Yes Alcohol Intake: former Drug use: Never Substance use type: does not use Do you feel safe at home: Yes Do you feel safe in your relationship?: Yes Exam Const General: cooperative, healthy appearing, comfortable and no acute distress Orientation: alert and awake [facility] Head: normal to inspection, normocephalic and atraumatic Eyes General: appearance normal, both eyes and all related structures Conjunctivae: conjunctivae normal Sclera: sclerae normal Neck Neck: normal visual inspection, trachea midline and supple Resp Effort & Inspection: normal respiratory effort and able to speak in complete se ntences Auscultation: clear to auscultation bilaterally Cardio Rate: regular rate Rhythm: regular rhythm GI Inspection: other (Suprapubic catheter in place) Palpation: soft, not firm, no guarding, no masses, no pulsatile masses and nontender Auscultation: normal bowel sounds Male General Exam: Yes normal external exam Penis: normal penis Meatus: meatus normal Scrotum: scrotum normal Testes: normal Back/Spine/Pelvis Back: No back tenderness Skin General skin exam: no rashes or lesions noted Neuro General: patient alert, patient awake, moves all extremities and no focal motor deficits Cognition: normal cognition Speech: speech normal Gait: normal gait Sensory Exam: no sensory deficits noted Psych Appearance: grossly normal Mental Status: mental status grossly normal Course Vital Signs Vital signs: Vital Signs Temperature 36.0 C L 09/06/20 13:41 Pulse 82 09/06/20 13:41 Respiratory Rate 20 09/06/20 13:41 Blood Pressure 123/70 09/06/20 13:41 Pulse Oximetry 98 09/06/20 13:41 Temperature 36.0 C L 09/06/20 13:41 Temperature Source Skin 09/06/20 13:41 Pulse 82 09/06/20 13:41 Respiratory Rate 20 09/06/20 13:41 Respiratory Effort Non-Labored 09/06/20 14:28 Blood Pressure 123/70 09/06/20 13:41 Blood Pressure Position Sitting 09/06/20 13:41 Pulse Oximetry 98 09/06/20 13:41 Oxygen Delivery Method Room Air 09/06/20 13:41 Oxygen Flow Rate 0 09/06/20 13:41 Pain Level 8 09/06/20 13:41 Lab/Test Results Lab/Test Results: Laboratory Tests Range/Units 09/06/20 14:57 Urine Color (Yellow) Red Urine Clarity (Clear) Cloudy Urine pH (5-8) 6.0 Ur Specific [place] (1.005-1.025) 1.025 Urine Protein (Negative) mg/dL >=300 H Urine Ketones (Negative) mg/dL Negative Urine Blood (Negative) Large H Urine Nitrite (Negative) Negative Urine Bilirubin (Negative) Negative Urine Urobilinogen (Up TO 0.2) EU/dL 0.2 Ur Leukocyte Esterase (Negative) Negative Urine RBC (0-2) HPF >50 H Urine WBC Not Applicable Ur Epithelial Cells Not Applicable Urine Crystals Not Applicable Urine Bacteria Not Applicable Urine Mucus Not Applicable Ur Culture Indicated? No Urine Glucose (Negative) mg/dL Negative
[2020-09-06 16:02] VITALS: BP 123/76; PULSE 74; RESP 18; TEMP 36.5; O2SAT 98
== END 2020-09-06 16:06 | disposition home or self-care (01) ==
PROVIDERS: Emergency Provider Physician Assistant; PCP Family Medicine
DX: R31.0 Gross hematuria (principal); N32.89 Other specified disorders of bladder; Z96.0 Presence of urogenital implants; Z79.01 Long term (current) use of anticoagulants
CPT/HCPCS: 99283; 81003; 81015

== ENCOUNTER 2020-09-07 18:40 | Inpatient (IN) | payer MEDICARE, MEDICAID, SELFPAY ==
[2020-09-07] VITALS (49 sets, daily range): BP systolic 89–123; BP diastolic 44–99; PULSE 56–128; RESP 13–27; TEMP 36.5; O2SAT 93–99
--- NOTE | 2020-09-07 19:25 | W.ED.GENAD ---
Discharge Plan Discharge Details Chief Complaint: Urinary Primary Care Provider: Lorena Chong ED Provider: Niesha Reed Home Meds and New Rx's Prescriptions: No Action nitroglycerin [Nitrostat] 0.4 MG tablet, sublingual 0.4 mg Sublingual Q5 MIN PRN X3 PRNQty: 60 RF: 0 potassium chloride [Klor-Con M20] 20 MEQ tablet,ER particles/crystals 20 meq PO DAILY AM Qty: 30 RF: 0 acetaminophen [Tylenol] 325 MG tablet 650 mg PO Q4H PRN PRNRF: 0 mirtazapine [Remeron] 15 MG tablet 15 mg PO HS RF: 0 levothyroxine 75 MCG tablet 75 mcg PO DAILY@0600 RF: 0 cholecalciferol (vitamin D3) 1,000 UNITS tablet 1 tab PO DAILY RF: 0 bisacodyl 10 MG suppository 10 mg SC DAILY PRNRF: 0 Fluticasone Propionate [24 Hour Allergy] 9.9 ML [place].Susp 9.9 ml NS BID RF: 0 lorazepam [Ativan] 0.5 mg Tablet 0.5 mg PO TID RF: 0 lactulose 10 gram/15 mL Solution 10 g PO DAILY PRN (Reason: Constipation) RF: 0 latanoprost 0.005 % Drops 1 drp ophthalmic (eye) HS RF: 0 Azopt 1 % Drops,Suspension 1 drp ophthalmic (eye) DAILY RF: 0 magnesium hydroxide 400 mg/5 mL Suspension 30 ml PO DAILY PRNRF: 0 morphine 100 mg/5 mL Concentrate 0.5 mg PO TID PRNRF: 0 albuterol sulfate [Ventolin HFA] 90 mcg/actuation Hfa Aerosol Inhaler 2 puff INHALATION QID PRN PRNRF: 0 oxycodone 5 mg Tablet 5 mg PO TID PRNRF: 0 Spiriva with HandiHaler 18 mcg capsule, w/inhalation device 1 cap INHALATION DAILY RF: 0 pantoprazole 40 MG tablet,delayed release (DR/EC) 40 mg PO DAILY RF: 0 metoprolol tartrate 50 MG tablet 75 mg PO BID RF: 0 Flovent HFA 120 PUFF HFA aerosol inhaler 2 puff Inhalation DAILY RF: 0 ropinirole 1 mg tablet 1 mg PO HS RF: 0 Pradaxa 150 mg capsule 150 mg PO BID RF: 0 oxybutynin chloride [Ditropan XL] 5 mg tablet extended release 24hr 5 mg PO DAILY Qty: 10 RF: 0 furosemide 20 MG tablet 40 mg PO DAILY RF: 0 albuterol sulfate 2.5 MG/3 ML solution for nebulization 3 ml IN Q4H PRN PRNRF: 0 Myrbetriq 50 mg Tablet Extended Release 24 Hr 50 mg PO DAILY Qty: 30 RF: 0 sennosides [senna] 8.6 mg Tablet 8.6 mg PO HS RF: 0 docusate sodium [Colace] 100 mg Capsule 100 mg PO BID RF: 0 ondansetron 4 mg Tablet,Disintegrating 4 mg PO QID PRNRF: 0 ursodiol 250 mg tablet 250 mg PO BID RF: 0 multivitamin [Tab-A-Raghu] Tablet 1 tab PO DAILY RF: [address] shows evidence of bladder mass versus hematoma, given patient's level of discomfort, bladder irrigation ordered, patient is hemodynamically stable, and in atrial fibrillation although rate controlled Tachypnea is negative metoprolol He is hemodynamically stable, hemoglobin and hematocrit stable Tolerating 50 mcg of fentanyl as needed well Urinalysis was reviewed from earlier that shows 50 red blood cells, unable to the white blood cells secondary to post chemo Urine culture pending Agreeable to admission Discussed with Dr. Raya, agreeable to admitting patient Differential Diagnosis Differential Diagnosis: Renal mass, gross hematuria, bladder hematoma, UTI Medical Records Medical records reviewed: Yes I reviewed the patient's medical records. Lab Data Lab results reviewed: Yes I reviewed the patient's lab results. HPI 85-year-old male with complex medical history of pacemaker, chronic abdominal pain, hematuria, paroxysmal atrial fibrillation, DVT, urinary retention with suprapubic catheter presents with report of persistent gross hematuria with abdominal and scrotal tenderness. Patient denies fever or chills. He states the abdominal pain has been present for 4 days and the blood presents with catheter change this morning. States that he last changed the bag morning. Denies any fever or chills. Denies any chest pain or shortness of breath. Denies any known exacerbating or alleviating factors. Describes the pain as sharp and stabbing. Denies any known fall or injury. General Date/Time Provider Initiated Documentation: 09/07/20 18:53. Related Data Home Medications Medication Instructions Recorded Confirmed nitroglycerin [Nitrostat] 0.4 mg SUBLINGUAL Q5 MIN PRN X3 05/27/14 09/07/20 PRN #60 tab potassium chloride [Klor-Con M20] 20 meq PO DAILY AM #30 tabcr 07/18/15 09/07/20 acetaminophen [Tylenol] 650 mg PO Q4H PRN PRN tab 11/25/15 09/07/20 mirtazapine [Remeron] 15 mg PO HS 03/04/16 09/07/20 levothyroxine 75 mcg PO DAILY@0600 tab 04/13/16 09/07/20 furosemide 40 mg PO DAILY 10/22/16 09/07/20 cholecalciferol (vitamin D3) 1 tab PO DAILY 08/01/17 09/06/20 albuterol sulfate 3 ml IN Q4H PRN PRN 10/22/17 09/07/20 Fluticasone Propionate [24 Hour 9.9 ml NS BID 12/30/17 09/07/20 Allergy] bisacodyl 10 mg SC DAILY PRN 12/30/17 09/07/20 Myrbetriq 50 mg PO DAILY #30 tab 08/15/18 09/07/20 lactulose 10 g PO DAILY PRN 10/29/18 09/07/20 lorazepam [Ativan] 0.5 mg PO TID 10/29/18 09/07/20 docusate sodium [Colace] 100 mg PO BID 11/30/18 09/07/20 ondansetron 4 mg PO QID PRN 11/30/18 09/06/20 sennosides [senna] 8.6 mg PO HS 11/30/18 09/07/20 ursodiol 250 mg PO BID 03/16/20 09/07/20 multivitamin [Tab-A-Raghu] 1 tab PO DAILY 05/12/20 09/06/20 Azopt 1 drp OPHTHALMIC (EYE) DAILY 09/04/20 09/06/20 Flovent HFA 2 puff INHALATION DAILY 09/04/20 09/07/20 Spiriva with HandiHaler 1 cap INHALATION DAILY 09/04/20 09/07/20 albuterol sulfate [Ventolin HFA] 2 puff INHALATION QID PRN PRN 09/04/20 09/07/20 latanoprost 1 drp OPHTHALMIC (EYE) HS 09/04/20 09/07/20 magnesium hydroxide 30 ml PO DAILY PRN 09/04/20 09/06/20 metoprolol tartrate 75 mg PO BID 09/04/20 09/07/20 morphine 0.5 mg PO TID PRN 09/04/20 09/06/20 oxycodone 5 mg PO TID PRN 09/04/20 09/06/20 pantoprazole 40 mg PO DAILY 09/04/20 09/07/20 Pradaxa 150 mg PO BID 09/06/20 09/07/20 oxybutynin chloride [Ditropan XL] 5 mg PO DAILY #10 tab 09/06/20 09/07/20 ropinirole 1 mg PO HS 09/06/20 09/06/20 Previous Rx's Medication Instructions Recorded nitroglycerin [Nitrostat] 0.4 mg SUBLINGUAL Q5 MIN PRN X3 05/27/14 PRN #60 tab potassium chloride [Klor-Con M20] 20 meq PO DAILY AM #30 tabcr 07/18/15 acetaminophen [Tylenol] 650 mg PO Q4H PRN PRN tab 11/25/15 levothyroxine 75 mcg PO DAILY@0600 tab 04/13/16 Myrbetriq 50 mg PO DAILY #30 tab 08/15/18 oxybutynin chloride [Ditropan XL] 5 mg PO DAILY #10 tab 09/06/20 Allergies Allergy/AdvReac Type Severity Reaction Status Date / Time banana Allergy Mild Skin Rash Unverified 09/07/20 19:11 formoterol fumarate AdvReac Intermediate Ineffective Unverified 09/07/20 19:11 [From Dulera] per Pt mometasone furoate AdvReac Intermediate Ineffective Unverified 09/07/20 19:11 [From Dulera] per Pt hydrocodone AdvReac Unknown Dizziness/L Unverified 09/07/20 19:11 ightheade General Stated Complaint: Urinary CINTIA: 3 Review of Systems Narrative: Review of systems obtained x7 aside from where indicated in HPI [facility] Medical History Anxiety Atrial fibrillation BPH (benign prostatic hyperplasia) Chronic kidney disease (CKD) Chronic obstructive lung disease Diverticulosis of large intestine without diverticulitis Essential hypertension GERD (gastroesophageal reflux disease) Glaucoma Insomnia Polyp of colon Spinal stenosis of lumbar region Tachycardia-bradycardia Surgical History Colonoscopy - MAC Pacemaker S/P TURP Social History Smoking/Tobacco Use Status: Former Tobacco Use Smoking risk assessment performed?: Yes Alcohol Intake: former Drug use: Never Substance use type: does not use Do you feel safe at home: Yes Do you feel safe in your relationship?: Yes Exam Const General: cooperative, comfortable and ill appearing Resp Effort & Inspection: normal respiratory effort Cardio Rate: regular rate Rhythm: abnormal rhythm GI Other: Diffuse tenderness, no guarding, draining suprapubic catheter, no surrounding cellulitis Other: Testicular tenderness on exam, no crepitus or tissue necrosis, or evidence of cellulitis Skin General skin exam: no rashes or lesions noted Neuro General: patient alert and patient oriented x3 Extrem Other: Distal pulses intact Course Vital Signs Vital signs: Vital Signs Temperature 36.5 C 09/07/20 19:04 Pulse 88 09/07/20 19:04 Respiratory Rate 17 09/07/20 19:04 Blood Pressure 112/66 09/07/20 19:04 Pulse Oximetry 99 09/07/20 19:04 Temperature 36.5 C 09/07/20 19:04 Temperature Source Skin 09/07/20 19:04 Pulse 88 09/07/20 19:04 Respiratory Rate 17 09/07/20 19:04 Respiratory Effort Non-Labored 09/07/20 19:15 Blood Pressure 112/66 09/07/20 19:04 Blood Pressure Position Supine 09/07/20 19:04 Pulse Oximetry 99 09/07/20 19:04 Oxygen Delivery Method Room Air 09/07/20 19:04 Oxygen Flow Rate 0 09/07/20 19:04 Pain Level 8 09/07/20 19:04
--- NOTE | 2020-09-07 19:30 | DI.CT_ITS ---
EXAM: CT ABDOMEN PELVIS W CLINICAL HISTORY: diffuse abdominal pain and scrotal pain, hematuria TECHNIQUE: Imaging Protocol: Axial computed tomography images with coronal and sagittal reformatted images were created and reviewed CONTRAST MATERIAL: Intravenous: Omnipaque 350 Contrast volume:100 mL Oral: No COMPARISON: CT CT ABDOMEN PELVIS W from 08/09/2020 FINDINGS: ABDOMEN: Lung Bases: Bilateral basilar scarring. Cardiomegaly. Cardiac pacing wires in place. Liver: Normal density. No measurable mass. Portal, Superior Mesenteric, and Splenic Veins: Unremarkable. Gallbladder and Biliary Tract: Status post cholecystectomy. No biliary ductal dilatation. Pancreas: Normal density, no abnormal calcifications or inflammatory process. Spleen: Calcified granuloma are present. Adrenals: No masses seen. Kidneys: Normal size, contour and axis. No radiodense stones or obstructive uropathy. There is a 1.3 cm simple cyst in the rising from the lower pole of the right kidney. No further workup is recommend ed. Tiny hypodensities scattered throughout the kidneys that are too small for further characterizat ion but likely reflect small cysts. Abdominal Aorta: Abdominal portion non-dilated. Moderate atherosclerosis. Bowel: No obstruction or bowel wall thickening. Appendix is unremarkable. Descending and sigmoid dive rticulosis but no evidence of acute diverticulitis. Peritoneal Cavity: No ascites, collection or mesenteric inflammatory response. No free air. Lymph Nodes: Within normal limits. Bones: Within normal limits for the patient's age. Soft Tissues: Bilateral fat containing inguinal hernias. PELVIS: Bladder: The urinary bladder is decompressed. Hyperdense material is again seen within the urinary b ladder similar to prior examination. There is a suprapubic catheter. Reproductive Organs: There is a markedly enlarged prostate gland. Lymph Nodes: Within normal limits. Bones: Within normal limits for the patient's age. IMPRESSION: 1. Stable enlarged prostate gland. If there is concern for prostatic carcinoma further evaluation sh ould be considered. 2. Suprapubic Kang catheter. The urinary bladder is nondistended. If there is concern for bladder abnormality cystography, CT urogram or MRI should be considered for further evaluation. 3. No acute abdominal or pelvic process. RADIATION DOSE DELIVERED: 1,079.2mGy.cm Total DLP DATA REPOSITORY: All CT scans at this facility are submitted to the National Radiology Data Registry (NRDR) Dose Index Registry (DIR) with the [employer] (ACR). RADIATION OPTIMIZATION: All CT scans at this facility use at least one of these dose optimization te chniques: automated exposure control; mA and/or kV adjustment per patient size (includes targeted exa ms where dose is matched to clinical indication); or iterative reconstruction.
[2020-09-07 19:36] LABS: Abs Immature Grans 0.04 10^3/uL (0.0-0.06); Absolute Basophil Count 0.02 10^3/uL (0.0-0.2); Absolute Eosinophil Count 0.12 10^3/uL (0.0-0.7); Absolute Lymphocyte Count 1.77 10^3/uL (1.2-3.4); Absolute Neutrophil Count 3.25 10^3/uL (1.2-6.7); Basophils % 0.3; HCT 41.7 % (40.0-50.0); HGB 13.4 g/dL (13.5-17.5); Immature Grans % 0.7; MCH 29.8 pg (27.0-33.0); MCHC 32.1 % (32.0-36.0); MCV 92.9 fL (80-95); Monocytes % 11.9; Neutrophils % 55.1; Nucleated RBC 0 %; Platelet Count 240 10^3/uL (130-400); RBC 4.49 10^6/uL (4.36-5.78); RDW 15.6 % (11.8-14.1)
[2020-09-07] MEDS: fentaNYL 100 MCG/2 ML VIAL 50 MCG IVP ×2 (19:36→22:47)
[2020-09-07 19:49] LABS: ALT 19 U/L (16-63); AST 20 U/L (15-37); Albumin 3.1 g/dL (3.4-5.0); Alkaline Phosphatase 120 U/L (46-116); Anion Gap 8.5 mmol/L (3-11); BUN 28 mg/dL (7-18); Bilirubin, Total 0.5 mg/dL (0.2-1.0); CO2 26.5 mmol/L (21.0-32.0); CREATININE 1.7 mg/dL (0.70-1.30); Calcium 8.9 mg/dL (8.5-10.1); Chloride 107 mmol/L (98-107); Estimated GFR 38.59 (mL/min/1.73m2); Glucose 98 mg/dL (74-106); Lipase 75 U/L (73-393); Potassium 4.4 mmol/L (3.5-5.1); Sodium 142 mmol/L (136-145); Total Protein 6.9 g/dL (6.4-8.2)
[2020-09-07 20:14] LABS: INR 1.4 (0.9-1.1); Prothrombin Time 13.9 sec (9.3-11.0)
[2020-09-07] MEDS: Omnipaque 350 MG/ML 100 ML BTL IJ (20:24)
[2020-09-07] MEDS: Normal Saline Flush 10 ML SYR IVP (20:25)
[2020-09-07] MEDS: Normal Saline - Diluent 50 ML VIAL IV (20:25)
--- NOTE | 2020-09-07 21:32 | DI.VRAD_ITS ---
PROCEDURE INFORMATION: Exam: CT Abdomen And Pelvis With Contrast Exam date and time: 09/07/2020 8:21 PM Age: 85 years old Clinical indication: Generalized; Patient HX: Diffuse abdominal pain and scrotal pain, hematuria TECHNIQUE: Imaging protocol: Computed tomography of the abdomen and pelvis with contrast. COMPARISON: CT ABDOMEN PELVIS W 11/03/2020 12:15 FINDINGS: Tubes, catheters and devices: Cardiac pacemaker in place. Percutaneous suprapubic catheter in the urinary bladder. Lungs: Bibasilar reticular scarring. Heart: Cardiomegaly. Liver: Normal. No mass. Gallbladder and bile ducts: Cholecystectomy. Pancreas: Normal. No ductal dilation. Spleen: Calcified granulomas within the spleen. Adrenal glands: Normal. No mass. Kidneys and ureters: Stable simple right renal cyst. Stomach and bowel: Diverticulosis. Appendix: No evidence of appendicitis. Intraperitoneal space: Unremarkable. No free air. No significant fluid collection. Vasculature: Atherosclerotic disease. Lymph nodes: Unremarkable. No enlarged lymph nodes. Urinary bladder: Radiodense substance within the bladder similar to prior study. Reproductive: Enlarged nodular and calcified prostate similar to prior study. Bones/joints: Multilevel degenerative scoliotic changes of the thoracic and lumbar spine. Osteoarthritic degenerative changes of the hips. Soft tissues: Bilateral inguinal hernias distended with fat. Dependent edema in the soft tissues of the back. IMPRESSION: 1. Enlarged nodular prostate similar to prior study. Consider MRI of the prostate for further evaluation and to rule out prostate carcinoma. 2. Suprapubic Kang catheter in place. Radiodense material within the bladder similar to prior study. Consider cystography, cystogram, or MRI for further evaluation to rule out bladder mass lesion. 3. Diverticulosis. 4. Additional findings as discussed above. Dictated and Authenticated by: Ale Campos MD. Ordering:ANGELA Scherer MD
--- NOTE | 2020-09-07 21:45 | RT.EKG_ITS ---
APPROVED REPORT Exam: Resting ECG Patient Location: I HR:89 bpm ECG Measurements Heart Rate 89 AXIS MD [id number] P [id number] QRSd 81 QRS 25 QT 391 T 58 QTc 477 Conclusion Afib/flut and V-paced complexes...other complexes, A-rate>240 There are no significant changes compared to prior EKG performed on 08/09/2020 at 11:29.
--- NOTE | 2020-09-07 23:15 | DI.RAD_ITS ---
EXAM: XR TOE LT THIRD CLINICAL HISTORY: pain and swelling. TECHNIQUE: 2D digital imaging was performed. COMPARISON: No exams were available for comparison FINDINGS: BONES: No acute fracture is present. There is a subtle linear lucency through the tuft of the dista l phalanx of the 3rd toe. This may represent overlying artifact. Nondisplaced fracture may also be considered. No destructive changes are seen in the bones. Chronic changes are seen in the head of t he proximal phalanx of the 3rd toe. JOINTS: No dislocation present. SOFT TISSUE: There is soft tissue swelling. IMPRESSION: 1. Soft tissue swelling of the 3rd toe. 2. Question of a lucency through the terminal tuft of the distal phalanx of the 3rd toe. Artifact ve rsus nondisplaced fracture. Please correlate with the patient's site of pain. A follow-up examinati on may be obtained for re-evaluation. DATA REPOSITORY: RADIATION DOSE DELIVERED:
[2020-09-07 23:53] LABS: COVID-19 PCR Negative (Negative); Influenza A PCR Negative (Negative); Influenza B PCR Negative (Negative); RSV PCR Negative (Negative)
--- NOTE | 2020-09-08 00:04 | DI.VRAD_ITS ---
PROCEDURE INFORMATION: Exam: XR Left Toe(s) Exam date and time: 09/07/2020 11:48 PM Age: 85 years old Clinical indication: Swelling or effusion of joint; Other: 3rd toe; Patient HX: Pain and swelling lt third oe TECHNIQUE: Imaging protocol: XR Left toes. Views: Minimum 2 views. COMPARISON: No relevant prior studies available. FINDINGS/IMPRESSION: There is a subtle linear lucency through the tuft of the 3rd toe distal phalanx with associated mild fragmentation. Depending on the clinical setting, this raises concern for a small underlying comminuted fracture versus a infectious/inflammatory process. There is lateral angulation of the 3rd toe. No other acutely displaced fractures are appreciated. No dislocation. Diffuse and severe soft tissue swelling throughout the 3rd toe. Dictated and Authenticated by: Leonard Andrade MD. Ordering:ANGELA Scherer MD
[2020-09-08] MEDS: Normal Saline Flush 10 ML SYR IVP ×3 (02:16→22:57)
[2020-09-08] MEDS: Normal Saline 1,000 ML 75 ML IV ×2 (02:16→15:31)
[2020-09-08 02:30] VITALS: BP 123/64; PULSE 85; RESP 20; TEMP 36.6; O2SAT 98
[2020-09-08] MEDS: rOPINIRole 0.5 MG TAB 1 MG PO (03:07)
[2020-09-08] MEDS: Metoprolol 50 MG TAB 75 MG PO ×3 (03:07→19:32)
[2020-09-08] MEDS: Cephalexin 500 MG CAP PO (03:07)
[2020-09-08] MEDS: Senna TAB 1 TAB PO (03:22)
--- NOTE | 2020-09-08 04:08 | W.PM.HP.N ---
Date of service: 09/08/20 Time of Service: 04:09 Assessment and Plan Assessment and plan (1) Hematuria: Status: Acute Assessment and plan: Urology, Dr. Hendricks, aware. Continuous bladder irrigation initiated in ED. Urine now clear. CT abd/pelvis showed a bladder mass vs hematoma. Large clot? Enterobacter Aerogenes UTI in early Aug 2020 Urine sent for culture. He was administered a dose of Keflex in the ED; hold on further antibiotics at this time. Qualifiers: Hematuria type: gross Qualified Code(s): R31.0 - Gross hematuria (2) Bladder spasms: Status: Acute Assessment and plan: Ditropan initiated when he first presented to the ED on 09/07/2020; continue. (3) Paroxysmal atrial fibrillation: Status: Acute Assessment and plan: On pradaxa for AC; hold given gross hematuria. Hematuria appears to have resolved but may have a bladder hematoma. Cont metoprolol. Pacemaker in place; V-paced complexes noted. (4) Chronic constipation: Status: Chronic Assessment and plan: Cont colace and prn lactulose. Cont Senna nightly. (5) COPD (chronic obstructive pulmonary disease): Status: Chronic Assessment and plan: Former smoker. No acute exacerbation. Cont Tiotropium, Flovent HFA and prn albuterol MDI. (6) Hypertension: Status: Chronic Assessment and plan: Cont metoprolol. BP now normal; had a low reading during the night of 89/66. Monitor. (7) Diastolic heart failure: Status: Chronic Assessment and plan: Currently receiving NS at low rate of 75ml/hr given an elevated BUN of 28. Held his routine 20mg lasix for now but will likely need to restart once he is shown to have normal intake of fluids. While holding lasix, his K+ supplementation also held; normal K+ currently. (8) Chronic kidney disease (CKD): Status: Chronic Assessment and plan: Creatinine of 1.7 on admission. Mildly elevated from baseline of 1.5. Gentle IV hydration with NS at 75ml/hr. Monitor (9) BPH (benign prostatic hyperplasia): Status: Chronic Assessment and plan: With chronic indwelling puentes catheter d/t retention. See hematuria. (10) Hypothyroidism: Status: Chronic Assessment and plan: Cont levothyroxine. Check TSH. Last TSH in chart was in 2019; 3.14 at that time. History of Present Illness History of Present Illness Chief Complaint: Abd pain and hematuria Narrative: This is an 85-year-old male with complex medical history of pacemaker, chronic abdominal pain, hematuria, paroxysmal atrial fibrillation, DVT, urinary retention with suprapubic catheter presents with report of persistent gross hematuria with abdominal and scrotal tenderness. No fever or chills. He stated the abdominal pain has been present for 4 days and the blood in the urine was noted with catheter change performed the morning of admission. He states he has been having a BM only every 2-3 days; normally daily. Denies any chest pain or shortness of breath. Describes the pain as sharp and stabbing. Denies any known fall or injury. He presented to the ED on the morning of this admission for the above complaints and his situation was discussed with Dr. Hendricks, urology. Ditropan was prescribed. Review of Systems All systems reviewed & are unremarkable except as noted in HPI and below PFSH Medical History (Updated 09/08/20 @ 04:34 by Cristobal Raya MD) Anxiety Atrial fibrillation BPH (benign prostatic hyperplasia) Chronic kidney disease (CKD) Chronic obstructive lung disease Diverticulosis of large intestine without diverticulitis Essential hypertension GERD (gastroesophageal reflux disease) Glaucoma Insomnia Polyp of colon Spinal stenosis of lumbar region Tachycardia-bradycardia Surgical History Colonoscopy - MAC Pacemaker S/P TURP Social History Smoking/Tobacco Use Status: Former Tobacco Use Smoking risk assessment performed?: Yes Alcohol Intake: former Drug use: Never Substance use type: does not use Do you feel safe at home: Yes Do you feel safe in your relationship?: Yes Meds Home Medications and Allergies Allergies Allergy/AdvReac Type Severity Reaction Status Date / Time banana Allergy Mild Skin Rash Unverified 09/07/20 19:11 formoterol fumarate AdvReac Intermediate Ineffective Unverified 09/07/20 19:11 [From Dulera] per Pt mometasone furoate AdvReac Intermediate Ineffective Unverified 09/07/20 19:11 [From Dulera] per Pt hydrocodone AdvReac Unknown Dizziness/L Unverified 09/07/20 19:11 ightheade Home Medications Medication Instructions Recorded Confirmed Type nitroglycerin [Nitrostat] 0.4 mg SUBLINGUAL Q5 MIN PRN X3 05/27/14 09/07/20 Rx PRN #60 tab potassium chloride [Klor-Con M20] 20 meq PO DAILY AM #30 tabcr 07/18/15 09/07/20 Rx acetaminophen [Tylenol] 650 mg PO Q4H PRN PRN tab 11/25/15 09/07/20 Rx mirtazapine [Remeron] 15 mg PO HS 03/04/16 09/07/20 History levothyroxine 75 mcg PO DAILY@0600 tab 04/13/16 09/07/20 Rx furosemide 40 mg PO DAILY 10/22/16 09/07/20 History cholecalciferol (vitamin D3) 1 tab PO DAILY 08/01/17 09/06/20 History albuterol sulfate 3 ml IN Q4H PRN PRN 10/22/17 09/07/20 History Fluticasone Propionate [24 Hour 9.9 ml NS BID 12/30/17 09/07/20 History Allergy] bisacodyl 10 mg MD DAILY PRN 12/30/17 09/07/20 History Myrbetriq 50 mg PO DAILY #30 tab 08/15/18 09/07/20 Rx lactulose 10 g PO DAILY PRN 10/29/18 09/07/20 History lorazepam [Ativan] 0.5 mg PO TID 10/29/18 09/07/20 History docusate sodium [Colace] 100 mg PO BID 11/30/18 09/07/20 History ondansetron 4 mg PO QID PRN 11/30/18 09/06/20 History sennosides [senna] 8.6 mg PO HS 11/30/18 09/07/20 History ursodiol 250 mg PO BID 03/16/20 09/07/20 History multivitamin [Tab-A-Raghu] 1 tab PO DAILY 05/12/20 09/06/20 History Azopt 1 drp OPHTHALMIC (EYE) DAILY 09/04/20 09/06/20 History Flovent HFA 2 puff INHALATION DAILY 09/04/20 09/07/20 History Spiriva with HandiHaler 1 cap INHALATION DAILY 09/04/20 09/07/20 History albuterol sulfate [Ventolin HFA] 2 puff INHALATION QID PRN PRN 09/04/20 09/07/20 History latanoprost 1 drp OPHTHALMIC (EYE) HS 09/04/20 09/07/20 History magnesium hydroxide 30 ml PO DAILY PRN 09/04/20 09/06/20 History metoprolol tartrate 75 mg PO BID 09/04/20 09/07/20 History morphine 0.5 mg PO TID PRN 09/04/20 09/06/20 History oxycodone 5 mg PO TID PRN 09/04/20 09/06/20 History pantoprazole 40 mg PO DAILY 09/04/20 09/07/20 History Pradaxa 150 mg PO BID 09/06/20 09/07/20 History oxybutynin chloride [Ditropan XL] 5 mg PO DAILY #10 tab 09/06/20 09/07/20 Rx ropinirole 1 mg PO HS 09/06/20 09/06/20 History Exam Const General: cooperative and no acute distress Nutritional Appearance: thin Orientation: oriented x3 HENMT Head: normocephalic and atraumatic Resp Effort & Inspection: normal respiratory effort Auscultation: clear to auscultation bilaterally Cardio Jugular venous pressure: no JVD Rate: regular rate Rhythm: regular rhythm Other: EKG; afib with V-paced complexes. GI Inspection: normal to inspection Palpation: soft, tender (diffuse but more pronounced in RLQ) and other (suprapubic catheter in place.) Skin General skin exam: no rashes or lesions noted Extrem General: no pedal edema and no calf tenderness Results Labs Result diagrams: 09/07/20 19:25 09/07/20 19:25 Labs: Laboratory Results - last 24 hr 09/07/20 09/07/20 09/07/20 19:25 19:25 19:25 WBC 5.90 RBC 4.49 Hgb 13.4 L Hct 41.7 MCV 92.9 MCH 29.8 MCHC 32.1 RDW 15.6 H Plt Count 240 MPV 10.0 Immature Gran % 0.7 Neutrophils % 55.1 Lymphocytes % 30.0 Monocytes % 11.9 Eosinophils % 2.0 Basophils % 0.3 Nucleated RBC % 0 Absolute Neutrophils 3.25 Absolute Lymphocytes 1.77 Absolute Monocytes 0.70 Absolute Eosinophils 0.12 Absolute Basophils 0.02 PT 13.9 H INR 1.4 H Sodium 142 Potassium 4.4 Chloride 107 Carbon Dioxide 26.5 Anion Gap 8.5 BUN 28 H Creatinine 1.7 H Estimated GFR/1.73 m2 38.59 Glucose 98 Calcium 8.9 Total Bilirubin 0.5 AST 20 ALT 19 Alkaline Phosphatase 120 H Total Protein 6.9 Albumin 3.1 L Lipase 75 COVID-19 Source SARS-CoV-2 (PCR) Influenza Type A (PCR) Influenza Type B (PCR) RSV (PCR) 09/07/20 09/07/20 22:26 23:05 WBC RBC Hgb Hct MCV MCH MCHC RDW Plt Count MPV Immature Gran % Neutrophils % Lymphocytes % Monocytes % Eosinophils % Basophils % Nucleated RBC % Absolute Neutrophils Absolute Lymphocytes Absolute Monocytes Absolute Eosinophils Absolute Basophils PT INR Sodium Potassium Chloride Carbon Dioxide Anion Gap BUN Creatinine Estimated GFR/1.73 m2 Glucose Calcium Total Bilirubin AST ALT Alkaline Phosphatase Total Protein Albumin Lipase COVID-19 Source Cancelled Nasopharyx SARS-CoV-2 (PCR) Cancelled Negative Influenza Type A (PCR) Cancelled Negative Influenza Type B (PCR) Cancelled Negative RSV (PCR) Cancelled Negative Last Vital Signs Temp 36.6 C 09/08/20 02:30 Pulse 85 09/08/20 02:30 Resp 20 09/08/20 02:30 BP 123/64 09/08/20 02:30 Pulse Ox 98 09/08/20 02:30 COVID-19 Screening Have you, or household traveled for leisure in last 14 days?: No Had IN PERSON contact w/suspected or confirmed C-19 person: No
[2020-09-08] MEDS: Levothyroxine 75 MCG TAB PO (06:23)
[2020-09-08 07:10] LABS: Abs Immature Grans 0.03 10^3/uL (0.0-0.06); Absolute Basophil Count 0.03 10^3/uL (0.0-0.2); Absolute Eosinophil Count 0.11 10^3/uL (0.0-0.7); Absolute Lymphocyte Count 1.35 10^3/uL (1.2-3.4); Absolute Monocyte Count 0.56 10^3/uL (0.1-0.8); Absolute Neutrophil Count 4.12 10^3/uL (1.2-6.7); Basophils % 0.5; Eosinophils % 1.8; HCT 39.8 % (40.0-50.0); Immature Grans % 0.5; Lymphocytes % 21.8; MCH 30.6 pg (27.0-33.0); MCHC 32.7 % (32.0-36.0); MCV 93.6 fL (80-95); Neutrophils % 66.4; Nucleated RBC 0 %; Platelet Count 213 10^3/uL (130-400); RBC 4.25 10^6/uL (4.36-5.78); RDW 15.8 % (11.8-14.1); RDW-SD 54.1 fL
[2020-09-08 07:15] VITALS: BP 128/76; PULSE 68; RESP 18; TEMP 36.2; O2SAT 96
[2020-09-08 07:24] LABS: Anion Gap 7.3 mmol/L (3-11); BUN 24 mg/dL (7-18); CO2 26.7 mmol/L (21.0-32.0); CREATININE 1.5 mg/dL (0.70-1.30); Chloride 108 mmol/L (98-107); Estimated GFR 44.59 (mL/min/1.73m2); Glucose 90 mg/dL (74-106); Potassium 4.2 mmol/L (3.5-5.1); Sodium 142 mmol/L (136-145)
[2020-09-08 07:44] LABS: TSH 5.29 uIU/mL (0.36-3.74)
--- NOTE | 2020-09-08 08:17 | INITIAL_ITS ---
- If Service Date Differs Date of service: 09/08/20 Time of Service: 08:17 Care Management Initial Assess REASON FOR HOSPITALIZATION:: Bladder hematoma, gross hematuria. PAST MEDICAL HISTORY/PAST SURGICAL HISTORY:: Medical History: Anxiety, Atrial fibrillation, BPH (benign prostatic hyperplasia), Chronic kidney disease (CKD), Chronic obstructive lung disease, Diverticulosis of large intestine without diverticulitis, Essential hypertension, GERD (gastroesophageal reflux disease), Glaucoma, Insomnia, Polyp of colon, Spinal stenosis of lumbar region, and Tachycardia-bradycardia. Surgical History: Colonoscopy - MAC, Pacemaker, and S/P TURP. PREVIOUS FUNCTIONAL STATUS/SOCIAL/FAMILY SUPPORTS:: Dino, who goes by Brenden, is an 85 year old male who lives alone in [place]. Brenden reports he has been alone since his brother of cancer 8 to 10 years ago. He has a neighbor, Casa, who looks out for him and does his grocery shopping. Brenden has Choices [employer] - high/Highest needs; his caser shoe parts is [employer]. CURRENT FUNCTIONAL STATUS:: Brenden is laying in bed when CM enters his room. He shares he is thinking about charging for his blood, as the [employer] has drawn his blood multiple times today. Brenden talks about the events leading up to his brother's and says he misses him greatly. CM will continue to follow. ADVANCE DIRECTIVES:: On file; friend Casa Cardona is Health Care Agent. Has patient been provided with info about the portal/API?: Yes Did the patient sign up for the portal?: No CODE STATUS:: DNR/DNI INSURANCE COVERAGE / FINANCIAL ISSUES:: Medicare and Medicaid. CURRENT HOME/COMMUNITY SERVICES/EQUIPMENT:: Brenden has [employer] high/highest needs; Annette Larson is his caser shoe parts. He has HH RN and OT. He owns a FWW, cane, and wheelchair. PRIMARY CARE PHYSICIAN:: Lorena Chong MD POTENTIAL DISCHARGE NEEDS:: Follow up appointments with PCP and urology. PATIENT/FAMILY EDUCATION NEEDS:: Discharge instructions, limitations, and follow up plan of care including Ask Me Three and self-management. ANTICIPATED BARRIERS TO DISCHARGE:: None. TRANSPORTATION:: Via [facility]. PLAN:: Anticipate Brenden will be discharge home with a resumption of [facility] and HH services when medically cleared by provider. He will follow up with his PCP, urology, and discharge plan of care as directed. CM will coordinate [facility] transport home when Bill is ready for discharge. CM will continue to follow.
[2020-09-08] MEDS: Docusate Sodium 100 MG CAP PO ×2 (08:19→19:31)
[2020-09-08] MEDS: Pantoprazole 40 MG TABCR PO (08:20)
[2020-09-08] MEDS: LORazepam 0.5 MG TAB PO ×3 (08:20→19:31)
[2020-09-08] MEDS: Oxybutynin-CR 5 MG TABCR PO (08:20)
[2020-09-08] MEDS: Tiotropium Bromide-Respimat 10 PUFF INH IH (10:45)
[2020-09-08] MEDS: Mometasone 220 MCG 14 DOSE INHALER 2 PUFF IH ×2 (10:46→19:30)
[2020-09-08] MEDS: Lactulose 20 GM/30 ML CUP 10 GM PO (12:37)
--- NOTE | 2020-09-08 14:01 | W.PM.PROGNOT ---
Date of Service Date of service: 09/08/20 Time of Service: 14:01 Assessment and Plan Assessment and plan (1) Abdominal pain: Status: Acute Assessment and plan: Abdominal pain was presumed to be secondary to bladder spasms however this is not responded to Ditropan nor to opium and belladonna suppository. CT scan last night showed no evidence of bowel obstruction or diverticulitis. It did suggest a hyperdense mass in the bladder. We have requested urology consultation for tomorrow. Abdominal ultrasound is been ordered for tomorrow. However given his paroxysmal atrial fibrillation and worsening abdominal pain and concern of possible ischemic bowel. Have ordered a stat lactate CBC and CMP along with an abdominal KUB and flatplate. He is on stool softeners and laxatives for his chronic constipation. I consult with Dr. Lugo who will review his abdominal films and labs once repeat labs come back. Qualifiers: Abdominal location: generalized Qualified Code(s): R10.84 - Generalized abdominal pain (2) Hematuria: Status: Acute Assessment and plan: Continue with continuous bladder irrigation. Urology consultation in the morning along with abdominal ultrasound. Qualifiers: Hematuria type: gross Qualified Code(s): R31.0 - Gross hematuria (3) Atrial fibrillation: Status: Chronic Assessment and plan: Rate is well controlled with Lopressor. Qualifiers: Atrial fibrillation type: paroxysmal Qualified Code(s): I48.0 - Paroxysmal atrial fibrillation (4) Chronic constipation: Status: Chronic Assessment and plan: Continue senna and docusate along with as needed laxatives. (5) COPD (chronic obstructive pulmonary disease): Status: Chronic Assessment and plan: Continue current bronchodilators. Qualifiers: COPD type: unspecified COPD Qualified Code(s): J44.9 - Chronic obstructive pulmonary disease, unspecified (6) Hypertension: Status: Chronic Assessment and plan: Continue current home blood pressure meds Qualifiers: Hypertension type: essential hypertension Qualified Code(s): I10 - Essential (primary) hypertension Subjective Subjective Interval history since last seen: Patient continues to complain of abdominal pain. What seems to be more focused around suprapubic catheter his belly is distended and a has diffuse abdominal tenderness. He has nausea with no vomiting. We gave him an O&P suppository for his bladder spasm and the nurse noted that he had a hard stool plug. Since that time he has had a large formed BM. Despite this he has had no relief of his abdominal pain. Exam Narrative Exam Narrative: Elderly male in obvious distress secondary to pain sitting up in his chair. Lungs are clear to auscultation Heart is irregularly irregular at a controlled rate Abdomen appears to be distended with hypoactive bowel sounds with diffuse tenderness and guarding. Patient restrained me from being able to get an adequate abdominal exam and he refused to go back into bed for an examination. I did try to recline his recliner chair in order to perform an exam. Suprapubic catheter is in place the catheter is draining clear fluid at this time. His tenderness is diffuse and present on both the right and left side in the lower quadrants as well as upper quadrant although it seems to be more focalized in the lower quadrants Objective Last Vital Signs Temp 36.2 C L 09/08/20 07:15 Pulse 68 09/08/20 07:15 Resp 18 09/08/20 07:15 BP 128/76 09/08/20 07:15 Pulse Ox 96 09/08/20 07:15 Laboratory Results - last 24 hr 09/07/20 09/07/20 09/07/20 19:25 19:25 19:25 WBC 5.90 RBC 4.49 Hgb 13.4 L Hct 41.7 MCV 92.9 MCH 29.8 MCHC 32.1 RDW 15.6 H Plt Count 240 MPV 10.0 Immature Gran % 0.7 Neutrophils % 55.1 Lymphocytes % 30.0 Monocytes % 11.9 Eosinophils % 2.0 Basophils % 0.3 Nucleated RBC % 0 Absolute Neutrophils 3.25 Absolute Lymphocytes 1.77 Absolute Monocytes 0.70 Absolute Eosinophils 0.12 Absolute Basophils 0.02 PT 13.9 H INR 1.4 H Sodium 142 Potassium 4.4 Chloride 107 Carbon Dioxide 26.5 Anion Gap 8.5 BUN 28 H Creatinine 1.7 H Estimated GFR/1.73 m2 38.59 Glucose 98 Calcium 8.9 Total Bilirubin 0.5 AST 20 ALT 19 Alkaline Phosphatase 120 H Total Protein 6.9 Albumin 3.1 L Lipase 75 TSH COVID-19 Source SARS-CoV-2 (PCR) Influenza Type A (PCR) Influenza Type B (PCR) RSV (PCR) 09/07/20 09/07/20 09/08/20 22:26 23:05 06:29 WBC RBC Hgb Hct MCV MCH MCHC RDW Plt Count MPV Immature Gran % Neutrophils % Lymphocytes % Monocytes % Eosinophils % Basophils % Nucleated RBC % Absolute Neutrophils Absolute Lymphocytes Absolute Monocytes Absolute Eosinophils Absolute Basophils PT INR Sodium 142 Potassium 4.2 Chloride 108 H Carbon Dioxide 26.7 Anion Gap 7.3 BUN 24 H Creatinine 1.5 H Estimated GFR/1.73 m2 44.59 Glucose 90 Calcium 9.0 Total Bilirubin AST ALT Alkaline Phosphatase Total Protein Albumin Lipase TSH COVID-19 Source Cancelled Nasopharyx SARS-CoV-2 (PCR) Cancelled Negative Influenza Type A (PCR) Cancelled Negative Influenza Type B (PCR) Cancelled Negative RSV (PCR) Cancelled Negative 09/08/20 09/08/20 06:29 06:29 WBC 6.20 RBC 4.25 L Hgb 13.0 L Hct 39.8 L MCV 93.6 MCH 30.6 MCHC 32.7 RDW 15.8 H Plt Count 213 MPV 10.0 Immature Gran % 0.5 Neutrophils % 66.4 Lymphocytes % 21.8 Monocytes % 9.0 Eosinophils % 1.8 Basophils % 0.5 Nucleated RBC % 0 Absolute Neutrophils 4.12 Absolute Lymphocytes 1.35 Absolute Monocytes 0.56 Absolute Eosinophils 0.11 Absolute Basophils 0.03 PT INR Sodium Potassium Chloride Carbon Dioxide Anion Gap BUN Creatinine Estimated GFR/1.73 m2 Glucose Calcium Total Bilirubin AST ALT Alkaline Phosphatase Total Protein Albumin Lipase TSH 5.29 H COVID-19 Source SARS-CoV-2 (PCR) Influenza Type A (PCR) Influenza Type B (PCR) RSV (PCR)
--- NOTE | 2020-09-08 14:15 | DI.RAD_ITS ---
EXAM: 2D digital imaging was performed. CLINICAL HISTORY: Abdominal pain. COMPARISON: CR XR ABDOMEN FLAT PLATE from 12/05/2018 TECHNIQUE: Supine and uprightSupine and Lateral views of the abdomen was performed. FINDINGS: LUNG BASES: The distal cardiac pacing wires are in place. The lung bases are clear. BOWEL GAS PATTERN: Nondistended. FREE AIR: None. CALCIFICATIONS: No radiopaque calcifications. OSSEOUS STRUCTURES: There is a left convex lumbar scoliosis. OTHER FINDINGS: Surgical clips are seen in the right upper quadrant of the abdomen which may reflect prior cholecystectomy. A suprapubic catheter is in place. IMPRESSION: No evidence of an acute abdomen. No evidence of bowel obstruction. DATA REPOSITORY: RADIATION DOSE DELIVERED:
[2020-09-08 14:49] LABS: Abs Immature Grans 0.03 10^3/uL (0.0-0.06); Absolute Basophil Count 0.02 10^3/uL (0.0-0.2); Absolute Eosinophil Count 0.12 10^3/uL (0.0-0.7); Absolute Lymphocyte Count 1.57 10^3/uL (1.2-3.4); Absolute Monocyte Count 0.63 10^3/uL (0.1-0.8); Absolute Neutrophil Count 3.22 10^3/uL (1.2-6.7); Basophils % 0.4; Eosinophils % 2.1; HCT 42.1 % (40.0-50.0); HGB 13.5 g/dL (13.5-17.5); Immature Grans % 0.5; Lymphocytes % 28.1; MCH 30.8 pg (27.0-33.0); MCHC 32.1 % (32.0-36.0); MCV 95.9 fL (80-95); MPV 9.7 fL (8.0-11.0); Monocytes % 11.3; Neutrophils % 57.6; Nucleated RBC 0 %; Platelet Count 194 10^3/uL (130-400); RBC 4.39 10^6/uL (4.36-5.78); RDW 15.8 % (11.8-14.1); RDW-SD 55.8 fL; WBC 5.59 10^3/uL (4.4-10.8)
[2020-09-08] MEDS: MORPHine 2 MG/ML SYR IVP ×3 (14:49→22:47)
[2020-09-08 14:52] LABS: Lactate 1.6 mmol/L (0.6-1.4)
[2020-09-08 15:07] LABS: ALT 18 U/L (16-63); AST 21 U/L (15-37); Albumin 2.9 g/dL (3.4-5.0); Alkaline Phosphatase 108 U/L (46-116); Anion Gap 8.2 mmol/L (3-11); BUN 23 mg/dL (7-18); Bilirubin, Total 0.6 mg/dL (0.2-1.0); CO2 25.8 mmol/L (21.0-32.0); CREATININE 1.6 mg/dL (0.70-1.30); Calcium 8.9 mg/dL (8.5-10.1); Chloride 107 mmol/L (98-107); Estimated GFR 41.39 (mL/min/1.73m2); Glucose 87 mg/dL (74-106); Potassium 4.4 mmol/L (3.5-5.1); Sodium 141 mmol/L (136-145); Total Protein 6.5 g/dL (6.4-8.2)
--- NOTE | 2020-09-08 15:31 | DI.VRAD_ITS ---
PROCEDURE INFORMATION: Exam: XR Abdomen Exam date and time: 09/08/2020 3:16 PM Age: 85 years old Clinical indication: Abdominal pain TECHNIQUE: Imaging protocol: XR of the abdomen. Views: 2 Views. Upright and supine views. COMPARISON: CR XR ABDOMEN FLAT PLATE 12/05/2018 12:46 PM FINDINGS: Tubes, catheters and devices: Suprapubic catheter tube. Heart/Mediastinum: Pacemaker leads in the right heart. Lungs: The visualized lung bases are clear. Gastrointestinal tract: Nonobstructive bowel gas pattern. Intraperitoneal space: Normal. No free air. Organs: Cholecystectomy clips. Vasculature: Moderate atherosclerotic vascular calcifications. Bones/joints: Mild levoscoliosis centered at L3. IMPRESSION: Nonobstructive bowel gas pattern. Dictated and Authenticated by: Zuleima Horner MD. Ordering:[facility] Michael Contreras MD
[2020-09-08 15:57] VITALS: BP 122/72; PULSE 83; RESP 18; TEMP 36.4; O2SAT 96
[2020-09-08] MEDS: Mineral Oil-Enema 133 ML BTL PR (16:13)
[2020-09-08 18:17] LABS: Lactate 1.1 mmol/L (0.6-1.4)
[2020-09-08] MEDS: Acetaminophen 325 MG TAB 650 MG PO (19:31)
[2020-09-08 22:08] LABS: Lactate 1.1 mmol/L (0.6-1.4)
[2020-09-08] MEDS: Mirtazapine 15 MG TAB PO (22:47)
[2020-09-08] MEDS: Latanoprost 0.005% 2.5 ML BTL OP (22:47)
[2020-09-08] MEDS: fentaNYL 100 MCG/2 ML VIAL 50 MCG IVP (22:57)
[2020-09-08] MEDS: Mylanta Suspension 30 ML CUP PO (22:59)
[2020-09-09 00:22] VITALS: BP 108/58; PULSE 63; RESP 19; TEMP 36.9; O2SAT 95
[2020-09-09] MEDS: fentaNYL 100 MCG/2 ML VIAL 50 MCG IVP ×2 (02:28→09:12)
[2020-09-09] MEDS: Normal Saline Flush 10 ML SYR IVP ×2 (02:29→09:14)
[2020-09-09] MEDS: Normal Saline 1,000 ML 85 ML IV (03:55)
[2020-09-09] MEDS: Levothyroxine 75 MCG TAB PO (05:57)
[2020-09-09] MEDS: Acetaminophen 325 MG TAB 650 MG PO ×2 (05:58→18:08)
[2020-09-09 06:49] LABS: Abs Immature Grans 0.03 10^3/uL (0.0-0.06); Absolute Basophil Count 0.03 10^3/uL (0.0-0.2); Absolute Eosinophil Count 0.09 10^3/uL (0.0-0.7); Absolute Lymphocyte Count 1.58 10^3/uL (1.2-3.4); Absolute Monocyte Count 0.65 10^3/uL (0.1-0.8); Absolute Neutrophil Count 3.65 10^3/uL (1.2-6.7); Basophils % 0.5; Eosinophils % 1.5; HGB 12.4 g/dL (13.5-17.5); Immature Grans % 0.5; Lymphocytes % 26.2; MCH 30.2 pg (27.0-33.0); MCHC 31.8 % (32.0-36.0); MCV 95.1 fL (80-95); MPV 9.9 fL (8.0-11.0); Monocytes % 10.8; Neutrophils % 60.5; Nucleated RBC 0 %; Platelet Count 192 10^3/uL (130-400); RDW 15.9 % (11.8-14.1); RDW-SD 55.8 fL; WBC 6.03 10^3/uL (4.4-10.8)
--- NOTE | 2020-09-09 07:00 | DI.US_ITS ---
EXAM: US RENAL CLINICAL HISTORY: urinary bladder hematoma vs mass. TECHNIQUE: Hill scale, color and spectral Doppler were used. COMPARISON: CT CT ABDOMEN PELVIS WO from 03/16/[address] ABDOMEN PELVIS W from 08/09/[address] ABDOMEN PELVIS W from 08/09/[address] ABDOMEN PELVIS W from 09/07/[address] ABDOMEN PELVIS W from 09/07/2020 CR,XR XR ABDOMEN FLAT UPRIGHT from 09/08/2020 CR,XR XR ABDOMEN FLAT UPRIGHT from 09/08/2020 FINDINGS: Renal size in cm: Right: 9.6 left: 10.3 Echogenicity: Normal Hydronephrosis: No Cyst or mass: No Nephrolithiasis: No Bladder:Suprapubic catheter. Bladder not sufficiently distended for evaluation. 1.2 centimeter mass versus clot. : IMPRESSION: Bladder is not well distended and was not well visualized. 1.2 centimeter lesion is seen in the blad valery. Clot versus mass. DATA REPOSITORY:
[2020-09-09 07:05] LABS: ALT 18 U/L (16-63); AST 21 U/L (15-37); Albumin 2.7 g/dL (3.4-5.0); Alkaline Phosphatase 102 U/L (46-116); Anion Gap 4.7 mmol/L (3-11); BUN 19 mg/dL (7-18); Bilirubin, Total 0.5 mg/dL (0.2-1.0); CO2 27.3 mmol/L (21.0-32.0); CREATININE 1.5 mg/dL (0.70-1.30); Calcium 8.4 mg/dL (8.5-10.1); Chloride 109 mmol/L (98-107); Estimated GFR 44.59 (mL/min/1.73m2); Glucose 94 mg/dL (74-106); Potassium 4.7 mmol/L (3.5-5.1); Sodium 141 mmol/L (136-145)
[2020-09-09 07:45] VITALS: BP 94/58; PULSE 63; RESP 18; TEMP 36.7; O2SAT 92
[2020-09-09] MEDS: Tiotropium Bromide-Respimat 10 PUFF INH IH (09:05)
[2020-09-09] MEDS: Mometasone 220 MCG 14 DOSE INHALER 2 PUFF IH ×2 (09:05→20:21)
[2020-09-09] MEDS: Metoprolol 50 MG TAB 75 MG PO ×2 (09:15→20:21)
[2020-09-09] MEDS: Oxybutynin-CR 5 MG TABCR PO (09:15)
[2020-09-09] MEDS: LORazepam 0.5 MG TAB PO ×3 (09:17→20:20)
--- NOTE | 2020-09-09 09:54 | PDOC.CMPRO ---
Care Management Progress Note S/O: Dino continues to be monitored and treated, he had a urology consult today with recommendations for conservative care at this time. Dino continues to have hematuria and abdominal pain, per MD and will remain inpatient at this time. CM notified Deonte [facility] scheduling updates. CM continues to follow. A: 85 year old male admitted to [facility] 09/07/20 for bladder hematoma, gross hematuria P: Anticipate Bill will be discharge home with a resumption of CFC and HH services when medically cleared by provider. He will follow up with his PCP, urology, and discharge plan of care as directed. CM will coordinate RCT transport home when Bill is ready for discharge. CM will continue to follow.
--- NOTE | 2020-09-09 10:35 | UCONE_ITS ---
Date of service: 09/09/20 Time of Service: 11:22 Assessment and Plan Assessment and plan (1) Hematuria: Status: Acute Assessment and plan: With his history of anticoagulants and his recent catheter change, he is certainly at risk for a clot within his bladder. With his chronic catheter use as well as his previous tobacco use, he is at risk for bladder cancers. With the abrupt onset of his hematuria, I would favor the presence of a clot in the bladder versus a tumor. If it is a clot, as long as the clot does not occlude his catheter, it should reabsorb on its own. If it is a tumor, he is may not be a surgical candidate for TURBT at our facility. Given his comorbidities, I think being as noninvasive as possible is a walker idea. Since his urine is clear this morning, I will stop the CBI and allow him to eat. If the urine is not transparent, we will restart the CBI and talk to our anesthesia colleagues to see about a cystoscopy,clot evacuation and possible TURBT. I am not sure how much of his discomfort is related to bladder spasm, but I think it is reasonable to maximize his bladder relaxation medications. When I looked back through my previous inpatient consult notes for this gentleman, it sounds like he had similar complaints of pain in 2019, so this may be a chronic issue for him. I see that he had an ER visit in August 2020 for left upper quadrant abdominal pain. He is on Ditropan XL which is an anticholinergic medication. I have added in Myrbetriq which works on beta3 receptors (also in the bladder). We could increase his dose of Ditropan (maximum is up to 30 mg/day), but would need to be mindful of its effects on constipation and glaucoma. Qualifiers: Hematuria type: gross Qualified Code(s): R31.0 - Gross hematuria History of Present Illness History of Present Illness Chief Complaint: Gross hematuria Narrative: This is an 85-year-old gentleman who is known to me from previous encounters. It has been a few years since I have seen this gentleman in person. He has a history of phimosis and urinary retention. He has multiple other medical comorbidities, so he was not felt to be a candidate for surgical treatm ents such as transurethral resection of the prostate. He was unable/unwilling to perform intermittent catheterization so we have managed him with a suprapubic tube. The tube was placed back in 2016 here in the operating room at [facility]. Initially, he came into our office to have his catheter changed. Eventually, as transportation became more difficult for him, he allowed the home health services to change his catheter for him. His catheter was changed recently and he noticed blood from the catheter and worsening perineal pain within 4 hours of the catheter change. He was seen in the emergency room and the catheter was still draining. A urine culture was obtained, but we recommended not treating any bacteriuria unless the patient became symptomatic. The patient returned with darker urine and increasing pain. His catheter was changed and continuous bladder irrigation was begun in the emergency room. He was given a single dose of Keflex in the emergency room. Since the bladder irrigation was begun, his urine has cleared. He continues to have abdominal discomfort which he tells me radiates to the testes and perineum. He tells me the pain is rather continuous. He is not aware of any precipitating activities. He is not having any fevers or chills. He has had imaging studies including a CT of the abdomen and pelvis as well as a renal ultrasound. No concerning renal lesions are found. The findings in the pelvis are rather nonspecific with enlargement of the prostate and possible clot or tumor within the bladder. Review of Systems Constitutional Constitutional: Denies chills, Denies fever(s) and Reports weakness Cardiovascular Cardiovascular: Denies chest pain Respiratory Respiratory: Denies hemoptysis Gastrointestinal Gastrointestinal: Reports abdominal pain and Denies melena Genitourinary Genitourinary: Reports hematuria Musculoskeletal Musculoskeletal: Reports arthralgias Neurologic Neurologic: Denies seizure-like activity and Reports weakness [facility] Medical History (Updated 09/09/20 @ 00:03 by CRISTELA BOLDEN) Anxiety Atrial fibrillation BPH (benign prostatic hyperplasia) Chronic kidney disease (CKD) Chronic obstructive lung disease Diverticulosis of large intestine without diverticulitis Essential hypertension GERD (gastroesophageal reflux disease) Glaucoma Insomnia Polyp of colon Spinal stenosis of lumbar region Tachycardia-bradycardia Surgical History Colonoscopy - MAC Pacemaker S/P TURP Social History Smoking/Tobacco Use Status: Former Tobacco Use Smoking risk assessment performed?: Yes Alcohol Intake: former Drug use: Never Substance use type: does not use Do you feel safe at home: Yes Do you feel safe in your relationship?: Yes Exam Narrative Exam Narrative: He appears chronically ill. He does not appear septic or toxic His vital signs are documented elsewhere His abdomen is soft. There is tenderness in the abdomen (right lower quadrant) with light palpation. There is no peritoneal signs The suprapubic tube site is intact with no surrounding erythema or ecchymosis. The urine coming from the suprapubic tube is clear with slow bladder irrigation The testes are soft with no masses. There is no scrotal erythema or ecchymosis. There is tenderness on palpation of the perineal body. He is awake and alert Urine culture obtained from the emergency room is still pending I reviewed his CT scan as well as today's renal ultrasound on the PACS system. I do not see any renal abnormalities to be concerned with. He does have a markedly enlarged prostate, but given his age and medical condition, he would not be a candidate for prostate cancer treatment even if it was diagnosed, so I would not recommend further investigation. The bladder is decompressed by his suprapubic tube, so it is difficult to ascertain any bladder abnormalities. Results Last Vital Signs Temp 36.7 C 09/09/20 07:45 Pulse 63 09/09/20 07:45 Resp 18 09/09/20 07:45 BP 94/58 L 09/09/20 07:45 Pulse Ox 92 09/09/20 07:45 Labs Result diagrams: 09/09/20 06:33 09/09/20 06:33 Labs: Laboratory Results - last 24 hr 09/08/20 09/08/20 09/08/20 14:32 14:32 14:32 WBC 5.59 RBC 4.39 Hgb 13.5 Hct 42.1 MCV 95.9 H MCH 30.8 MCHC 32.1 RDW 15.8 H Plt Count 194 MPV 9.7 Immature Gran % 0.5 Neutrophils % 57.6 Lymphocytes % 28.1 Monocytes % 11.3 Eosinophils % 2.1 Basophils % 0.4 Nucleated RBC % 0 Absolute Neutrophils 3.22 Absolute Lymphocytes 1.57 Absolute Monocytes 0.63 Absolute Eosinophils 0.12 Absolute Basophils 0.02 VBG Lactate 1.6 H Sodium 141 Potassium 4.4 Chloride 107 Carbon Dioxide 25.8 Anion Gap 8.2 BUN 23 H Creatinine 1.6 H Estimated GFR/1.73 m2 41.39 Glucose 87 Calcium 8.9 Total Bilirubin 0.6 AST 21 ALT 18 Alkaline Phosphatase 108 Total Protein 6.5 Albumin 2.9 L 09/08/20 09/08/20 09/09/20 18:11 22:01 06:33 WBC 6.03 RBC 4.10 L Hgb 12.4 L Hct 39.0 L MCV 95.1 H MCH 30.2 MCHC 31.8 L RDW 15.9 H Plt Count 192 MPV 9.9 Immature Gran % 0.5 Neutrophils % 60.5 Lymphocytes % 26.2 Monocytes % 10.8 Eosinophils % 1.5 Basophils % 0.5 Nucleated RBC % 0 Absolute Neutrophils 3.65 Absolute Lymphocytes 1.58 Absolute Monocytes 0.65 Absolute Eosinophils 0.09 Absolute Basophils 0.03 VBG Lactate 1.1 1.1 Sodium Potassium Chloride Carbon Dioxide Anion Gap BUN Creatinine Estimated GFR/1.73 m2 Glucose Calcium Total Bilirubin AST ALT Alkaline Phosphatase Total Protein Albumin 09/09/20 09/09/20 06:33 06:33 WBC RBC Hgb Hct MCV MCH MCHC RDW Plt Count MPV Immature Gran % Neutrophils % Lymphocytes % Monocytes % Eosinophils % Basophils % Nucleated RBC % Absolute Neutrophils Absolute Lymphocytes Absolute Monocytes Absolute Eosinophils Absolute Basophils VBG Lactate 1.0 Sodium 141 Potassium 4.7 Chloride 109 H Carbon Dioxide 27.3 Anion Gap 4.7 BUN 19 H Creatinine 1.5 H Estimated GFR/1.73 m2 44.59 Glucose 94 Calcium 8.4 L Total Bilirubin 0.5 AST 21 ALT 18 Alkaline Phosphatase 102 Total Protein 6.0 L Albumin 2.7 L
[2020-09-09] MEDS: Polyethylene Glycol 3350 17 GM PACKET PO (13:24)
[2020-09-09] MEDS: Normal Saline 1,000 ML 125 ML IV (14:55)
--- NOTE | 2020-09-09 15:12 | W.PM.PROGNOT ---
Date of Service Date of service: 09/09/20 Time of Service: 15:12 Assessment and Plan Assessment and plan (1) Abdominal pain: Status: Inactive Assessment and plan: Probably combination of bladder spasm along with constipation. We will work on increasing his bowel regimen and try to get a decent BM tonight. Dr. Hendricks his restart his Myrbetriq and we may consider increasing his Ditropan however this may worsen his constipation. Fleets enema has been ordered along with some Relistor and an increase in his docusate and senna. Qualifiers: Abdominal location: generalized Qualified Code(s): R10.84 - Generalized abdominal pain (2) Hematuria: Status: Acute Assessment and plan: Continue with continuous bladder irrigation. Patient may require cystoscopy and transurethral bladder resection of a possible bladder mass versus extirpation of his hematoma. Qualifiers: Hematuria type: gross Qualified Code(s): R31.0 - Gross hematuria (3) Atrial fibrillation: Status: Chronic Assessment and plan: Rate is well controlled with Lopressor. Qualifiers: Atrial fibrillation type: paroxysmal Qualified Code(s): I48.0 - Paroxysmal atrial fibrillation (4) Chronic constipation: Status: Chronic Assessment and plan: Treatment as listed above (5) COPD (chronic obstructive pulmonary disease): Status: Chronic Assessment and plan: Continue current bronchodilators. Qualifiers: COPD type: unspecified COPD Qualified Code(s): J44.9 - Chronic obstructive pulmonary disease, unspecified (6) Hypertension: Status: Chronic Assessment and plan: Continue current home blood pressure meds Qualifiers: Hypertension type: essential hypertension Qualified Code(s): I10 - Essential (primary) hypertension Subjective Subjective Interval history since last seen: Dino is still having abdominal pains although not as intense today. He was restarted on his Myrbetriq and also is taking Ditropan for bladder spasms. He is still constipated despite enema and laxatives yesterday. I have increased his Senna and his docusate and will give him some Relistor and another enema. Hopefully he will be able to have a decent BM tonight. His hematuria had cleared w/ use of CBI but once the CBI was stopped he started having hematuria again this afternoon. He is now back on the continuous bladder irrigation. Exam Narrative Exam Narrative: Elderly male sitting up in his chair alert and oriented person place time circumstance. Lungs with some faint basilar rales no rhonchi or wheezing. Heart is irregularly irregular Abdomen is slightly distended but soft with active bowel sounds. He has suprapubic tenderness around his catheter. Objective Last Vital Signs Temp 36.7 C 09/09/20 07:45 Pulse 63 09/09/20 07:45 Resp 18 09/09/20 07:45 BP 94/58 L 09/09/20 07:45 Pulse Ox 92 09/09/20 07:45 Laboratory Results - last 24 hr 09/08/20 09/08/20 09/09/20 18:11 22:01 06:33 WBC 6.03 RBC 4.10 L Hgb 12.4 L Hct 39.0 L MCV 95.1 H MCH 30.2 MCHC 31.8 L RDW 15.9 H Plt Count 192 MPV 9.9 Immature Gran % 0.5 Neutrophils % 60.5 Lymphocytes % 26.2 Monocytes % 10.8 Eosinophils % 1.5 Basophils % 0.5 Nucleated RBC % 0 Absolute Neutrophils 3.65 Absolute Lymphocytes 1.58 Absolute Monocytes 0.65 Absolute Eosinophils 0.09 Absolute Basophils 0.03 VBG Lactate 1.1 1.1 Sodium Potassium Chloride Carbon Dioxide Anion Gap BUN Creatinine Estimated GFR/1.73 m2 Glucose Calcium Total Bilirubin AST ALT Alkaline Phosphatase Total Protein Albumin 09/09/20 09/09/20 06:33 06:33 WBC RBC Hgb Hct MCV MCH MCHC RDW Plt Count MPV Immature Gran % Neutrophils % Lymphocytes % Monocytes % Eosinophils % Basophils % Nucleated RBC % Absolute Neutrophils Absolute Lymphocytes Absolute Monocytes Absolute Eosinophils Absolute Basophils VBG Lactate 1.0 Sodium 141 Potassium 4.7 Chloride 109 H Carbon Dioxide 27.3 Anion Gap 4.7 BUN 19 H Creatinine 1.5 H Estimated GFR/1.73 m2 44.59 Glucose 94 Calcium 8.4 L Total Bilirubin 0.5 AST 21 ALT 18 Alkaline Phosphatase 102 Total Protein 6.0 L Albumin 2.7 L
[2020-09-09 15:41] VITALS: BP 123/82; PULSE 78; RESP 17; TEMP 36.6; O2SAT 98
[2020-09-09] MEDS: Methylnaltrexone 12 MG/0.6 ML VIAL SC (15:59)
[2020-09-09] MEDS: Mineral Oil-Enema 133 ML BTL PR (16:00)
--- NOTE | 2020-09-09 16:28 | SCONE_ITS ---
Date of service: 09/09/20 Time of Service: 16:00 Assessment and Plan Assessment and plan (1) Abdominal pain: Status: Acute Assessment and plan: patient seen today, discussed extensively with hospitalist yesterday. agree that pain is not likely general surgical. the negative CT, normal gas pattern and normal lactate would seem to preclude a vascular event in the patient's colon. likely his spastic pain is a complication of his SP urinary catheter. can start patient on mild bowel regimen, perhaps daily miralax. please call with any additional questions. thank you. History of Present Illness History of Present Illness Chief Complaint: abdominal pain Narrative: asked to see patient by hospitalist regarding abdominal pain. Patient was admitted yesterday with 4day history of lower abdominal pain. spastic in nature. manipulation of his SP tube made it worse. Nothing appeared to make it better. had been on going for several days, slowly worsening. No radiation. no n/v. + associated with constipation. Asked to see patient to r/o general surgical cause. Review of Systems Constitutional Constitutional: Denies anorexia, Denies headache(s) and Denies malaise Eyes Eyes: Denies diplopia and Denies other visual disturbances ENT Ears, Nose, Mouth, and Throat: Denies headache(s) Cardiovascular Cardiovascular: Denies chest pain and Denies edema Respiratory Respiratory: Denies cough and Denies hemoptysis Gastrointestinal Gastrointestinal: Reports bloating, Reports constipation and Reports cramping Genitourinary Genitourinary: Reports hematuria and Reports dysuria Musculoskeletal Musculoskeletal: Denies deformity and Denies numbness Integumentary/Breasts Skin/Breast: Denies skin swelling and Denies skin ulcer Neurologic Neurologic: Denies headache(s) and Denies numbness Psychiatric Psychiatric: Denies anxiety and Denies depression Hematologic/Lymphatic Hematologic/Lymphatic: Denies easy bleeding and Denies easy bruising [facility] Medical History (Updated 09/09/20 @ 00:03 by CRISTELA BOLDEN) Anxiety Atrial fibrillation BPH (benign prostatic hyperplasia) Chronic kidney disease (CKD) Chronic obstructive lung disease Diverticulosis of large intestine without diverticulitis Essential hypertension GERD (gastroesophageal reflux disease) Glaucoma Insomnia Polyp of colon Spinal stenosis of lumbar region Tachycardia-bradycardia Surgical History Colonoscopy - MAC Pacemaker S/P TURP Social History Smoking/Tobacco Use Status: Former Tobacco Use Smoking risk assessment performed?: Yes Alcohol Intake: former Drug use: Never Substance use type: does not use Do you feel safe at home: Yes Do you feel safe in your relationship?: Yes Exam Narrative Exam Narrative: NAD Rate controlled CTA B Softly distended, TTP suprapubically. Otherwise nontender, no rebound CBI in place - dark red urine mucous membranes moist no skin lesions Results Last Vital Signs Temp 97.9 F 09/09/20 15:41 Pulse 78 09/09/20 15:41 Resp 17 09/09/20 15:41 BP 123/82 09/09/20 15:41 Pulse Ox 98 09/09/20 15:41 Labs Result diagrams: 09/09/20 06:33 09/09/20 06:33 Labs: Laboratory Results - last 24 hr 09/08/20 09/08/20 09/09/20 18:11 22:01 06:33 WBC 6.03 RBC 4.10 L Hgb 12.4 L Hct 39.0 L MCV 95.1 H MCH 30.2 MCHC 31.8 L RDW 15.9 H Plt Count 192 MPV 9.9 Immature Gran % 0.5 Neutrophils % 60.5 Lymphocytes % 26.2 Monocytes % 10.8 Eosinophils % 1.5 Basophils % 0.5 Nucleated RBC % 0 Absolute Neutrophils 3.65 Absolute Lymphocytes 1.58 Absolute Monocytes 0.65 Absolute Eosinophils 0.09 Absolute Basophils 0.03 VBG Lactate 1.1 1.1 Sodium Potassium Chloride Carbon Dioxide Anion Gap BUN Creatinine Estimated GFR/1.73 m2 Glucose Calcium Total Bilirubin AST ALT Alkaline Phosphatase Total Protein Albumin 09/09/20 09/09/20 06:33 06:33 WBC RBC Hgb Hct MCV MCH MCHC RDW Plt Count MPV Immature Gran % Neutrophils % Lymphocytes % Monocytes % Eosinophils % Basophils % Nucleated RBC % Absolute Neutrophils Absolute Lymphocytes Absolute Monocytes Absolute Eosinophils Absolute Basophils VBG Lactate 1.0 Sodium 141 Potassium 4.7 Chloride 109 H Carbon Dioxide 27.3 Anion Gap 4.7 BUN 19 H Creatinine 1.5 H Estimated GFR/1.73 m2 44.59 Glucose 94 Calcium 8.4 L Total Bilirubin 0.5 AST 21 ALT 18 Alkaline Phosphatase 102 Total Protein 6.0 L Albumin 2.7 L
[2020-09-09] MEDS: Docusate Sodium 100 MG CAP 200 MG PO (20:19)
[2020-09-09] MEDS: Senna TAB 1 TAB PO (20:21)
[2020-09-09] MEDS: rOPINIRole 0.5 MG TAB 1 MG PO (22:23)
[2020-09-09] MEDS: Latanoprost 0.005% 2.5 ML BTL OP (22:23)
[2020-09-09] MEDS: Mirtazapine 15 MG TAB PO (22:23)
[2020-09-10] MEDS: Normal Saline 1,000 ML 85 ML IV ×2 (02:20→15:58)
[2020-09-10] MEDS: Levothyroxine 75 MCG TAB PO (06:18)
[2020-09-10 07:04] LABS: Abs Immature Grans 0.03 10^3/uL (0.0-0.06); Absolute Basophil Count 0.03 10^3/uL (0.0-0.2); Absolute Eosinophil Count 0.06 10^3/uL (0.0-0.7); Absolute Lymphocyte Count 1.17 10^3/uL (1.2-3.4); Absolute Monocyte Count 0.54 10^3/uL (0.1-0.8); Absolute Neutrophil Count 3.37 10^3/uL (1.2-6.7); Basophils % 0.6; Eosinophils % 1.2; HCT 41.2 % (40.0-50.0); Immature Grans % 0.6; Lymphocytes % 22.5; MCH 30.2 pg (27.0-33.0); MCHC 31.6 % (32.0-36.0); MCV 95.8 fL (80-95); MPV 10.1 fL (8.0-11.0); Monocytes % 10.4; Neutrophils % 64.7; Nucleated RBC 0 %; Platelet Count 196 10^3/uL (130-400); RDW 15.9 % (11.8-14.1)
[2020-09-10 07:14] LABS: Anion Gap 8.1 mmol/L (3-11); BUN 18 mg/dL (7-18); CO2 22.9 mmol/L (21.0-32.0); CREATININE 1.2 mg/dL (0.70-1.30); Calcium 8.8 mg/dL (8.5-10.1); Chloride 110 mmol/L (98-107); Estimated GFR 57.68 (mL/min/1.73m2); Glucose 92 mg/dL (74-106); Potassium 4.2 mmol/L (3.5-5.1); Sodium 141 mmol/L (136-145)
--- NOTE | 2020-09-10 07:31 | W.PM.PROGNOT ---
Date of Service Date of service: 09/10/20 Time of Service: 07:32 Assessment and Plan Assessment and plan (1) Hematuria: Status: Acute Assessment and plan: We will discontinue his bladder irrigation again. As long as the urine remains clear and we have no need for CBI, we can change his suprapubic tube back to a standard catheter. Qualifiers: Hematuria type: gross Qualified Code(s): R31.0 - Gross hematuria Subjective Subjective Interval history since last seen: He tells me that he had a pretty good night. We ran his bladder irrigation at a very slow rate overnight and he had no clot retention Exam Narrative Exam Narrative: He seems to be in better spirits this morning His vital signs are documented elsewhere His urine is completely clear with a very slow bladder irrigation He is awake and alert His hemoglobin is stable. I was under the impression that a urine culture was sent from his emergency room visit on 09/06/2020. I now realize that the urine from that encounter did not meet the criteria for culture. The culture done on his admission on 09/08/2020 is growing only low colonies of E. coli. Objective Last Vital Signs Temp 36.6 C 09/09/20 15:41 Pulse 78 09/09/20 15:41 Resp 17 09/09/20 15:41 BP 123/82 09/09/20 15:41 Pulse Ox 98 09/09/20 15:41 Laboratory Results - last 24 hr 09/10/20 09/10/20 06:38 06:38 WBC 5.20 RBC 4.30 L Hgb 13.0 L Hct 41.2 MCV 95.8 H MCH 30.2 MCHC 31.6 L RDW 15.9 H Plt Count 196 MPV 10.1 Immature Gran % 0.6 Neutrophils % 64.7 Lymphocytes % 22.5 Monocytes % 10.4 Eosinophils % 1.2 Basophils % 0.6 Nucleated RBC % 0 Absolute Neutrophils 3.37 Absolute Lymphocytes 1.17 L Absolute Monocytes 0.54 Absolute Eosinophils 0.06 Absolute Basophils 0.03 Sodium 141 Potassium 4.2 Chloride 110 H Carbon Dioxide 22.9 Anion Gap 8.1 BUN 18 Creatinine 1.2 Estimated GFR/1.73 m2 57.68 Glucose 92 Calcium 8.8
[2020-09-10 07:55] VITALS: BP 151/91; PULSE 93; RESP 19; TEMP 36.7; O2SAT 98
[2020-09-10 08:28] VITALS: O2SAT 100
[2020-09-10] MEDS: Senna TAB 1 TAB PO ×2 (08:28→19:52)
[2020-09-10] MEDS: Pantoprazole 40 MG TABCR PO (08:28)
[2020-09-10] MEDS: Mirabegron 50 MG TABCR PO (08:28)
[2020-09-10] MEDS: Oxybutynin-CR 5 MG TABCR PO (08:28)
[2020-09-10] MEDS: LORazepam 0.5 MG TAB PO ×3 (08:28→19:53)
[2020-09-10] MEDS: Metoprolol 50 MG TAB 75 MG PO ×2 (08:28→19:51)
[2020-09-10] MEDS: Docusate Sodium 100 MG CAP 200 MG PO ×2 (08:28→19:53)
[2020-09-10 09:10] VITALS: O2SAT 98
[2020-09-10] MEDS: Tiotropium Bromide-Respimat 10 PUFF INH IH (09:15)
[2020-09-10] MEDS: Mometasone 220 MCG 14 DOSE INHALER 2 PUFF IH ×2 (09:15→19:54)
[2020-09-10 15:06] VITALS: BP 127/63; PULSE 57; RESP 18; TEMP 36.7; O2SAT 98
--- NOTE | 2020-09-10 16:14 | RESPIRATORY ---
RT questioned patient concerning the use of a home CPAP unit which was documented on previous visits. Pt stated he has been sleeping fine here and is not interested in using a hospital unit. Patient is unable to bring in his home unit and is not interested in using ours until he D/C home.
--- NOTE | 2020-09-10 16:42 | PDOC.CMPRO ---
Care Management Progress Note S/O: Brenden continues to be monitored and treated, awaiting PT evaluation for dicharge planning considerations. Bladder irrigation to be discontinued with further monitoring, per MD. Brenden was sitting up in his chair, readying for dinner. He reported he does not eat too much at night because his belly gives him trouble, especially now. He expressed frustrations central to his ongoing care needs, CM provided supportive CM to continue to update Abraham; [facility] for home based care/PATIENT ASSESSMENT COORDINATOR scheduling updates. CM continues to follow. A: 85 year old male admitted to [facility] 09/07/20 for bladder hematoma, gross hematuria P: Anticipate Brenden will be discharge home with a resumption of CFC and HH services when medically cleared by provider. He will follow up with his PCP, urology, and discharge plan of care as directed. CM will coordinate RCT transport home when Brenden is ready for discharge. CM will continue to follow.
--- NOTE | 2020-09-10 18:29 | W.PM.PROGNOT ---
Date of Service Date of service: 09/10/20 Time of Service: 18:30 Assessment and Plan Assessment and plan (1) Abdominal pain: Status: Inactive Assessment and plan: This point his constipation appears to have been resolved. He gets residual tenderness is due to his suprapubic catheter and bladder hematoma versus bladder mass. Further evaluation per urology. Qualifiers: Abdominal location: generalized Qualified Code(s): R10.84 - Generalized abdominal pain (2) Hematuria: Status: Acute Assessment and plan: CBI discontinued. Further evaluation as per urology. Qualifiers: Hematuria type: gross Qualified Code(s): R31.0 - Gross hematuria (3) Atrial fibrillation: Status: Chronic Assessment and plan: Rate is well controlled with Lopressor. Qualifiers: Atrial fibrillation type: paroxysmal Qualified Code(s): I48.0 - Paroxysmal atrial fibrillation (4) Chronic constipation: Status: Chronic Assessment and plan: Improved on intensive bowel regimen. (5) COPD (chronic obstructive pulmonary disease): Status: Chronic Assessment and plan: Continue current bronchodilators. Qualifiers: COPD type: unspecified COPD Qualified Code(s): J44.9 - Chronic obstructive pulmonary disease, unspecified (6) Hypertension: Status: Chronic Assessment and plan: Continue current home blood pressure meds Qualifiers: Hypertension type: essential hypertension Qualified Code(s): I10 - Essential (primary) hypertension Subjective Subjective Interval history since last seen: Patient's CBI was discontinued today. He has small amount of blood clots from his catheter. Dr. Hendricks indicated that if his urine runs clear overnight then we will discontinue CBI and convert his suprapubic catheter back to a standard catheter. At present it does not appear that Dr. Hendricks intends to perform cystoscopy. If the patient's gross hematuria resolves the plan will be to discharge him home with urology follow-up as an outpatient. Patient is tolerating a diet and he is finally stooling. We do have him on a strong bowel regimen of Colace 200 mg twice a day along with senna twice a day. He did require enemas yesterday. Patient is not complaining of any abdominal pain other than some mild tenderness around suprapubic catheter. Exam Narrative Exam Narrative: Alert and oriented x3 elderly male lying in bed. Lungs are clear to auscultation Heart is irregularly irregular at a controlled rate Abdomen is nondistended soft nontender in the upper abdomen but some mild suprapubic tenderness Objective Last Vital Signs Temp 36.7 C 09/10/20 15:06 Pulse 57 L 09/10/20 15:06 Resp 18 09/10/20 15:06 BP 127/63 09/10/20 15:06 Pulse Ox 98 09/10/20 15:06 Laboratory Results - last 24 hr 09/10/20 09/10/20 06:38 06:38 WBC 5.20 RBC 4.30 L Hgb 13.0 L Hct 41.2 MCV 95.8 H MCH 30.2 MCHC 31.6 L RDW 15.9 H Plt Count 196 MPV 10.1 Immature Gran % 0.6 Neutrophils % 64.7 Lymphocytes % 22.5 Monocytes % 10.4 Eosinophils % 1.2 Basophils % 0.6 Nucleated RBC % 0 Absolute Neutrophils 3.37 Absolute Lymphocytes 1.17 L Absolute Monocytes 0.54 Absolute Eosinophils 0.06 Absolute Basophils 0.03 Sodium 141 Potassium 4.2 Chloride 110 H Carbon Dioxide 22.9 Anion Gap 8.1 BUN 18 Creatinine 1.2 Estimated GFR/1.73 m2 57.68 Glucose 92 Calcium 8.8
[2020-09-10 19:45] VITALS: BP 116/65; PULSE 74; RESP 18; TEMP 36.4; O2SAT 98
[2020-09-10] MEDS: Albuterol HFA 18 GM 200 PUFF INH IH (21:31)
[2020-09-10] MEDS: MORPHine 2 MG/ML SYR IVP (21:32)
[2020-09-10] MEDS: rOPINIRole 0.5 MG TAB 1 MG PO (21:32)
[2020-09-10] MEDS: Latanoprost 0.005% 2.5 ML BTL OP (21:32)
[2020-09-10] MEDS: Normal Saline Flush 10 ML SYR IVP (21:33)
[2020-09-10] MEDS: Mirtazapine 15 MG TAB PO (21:33)
--- NOTE | 2020-09-11 | DI.CT_ITS ---
EXAM: CT ABDOMEN PELVIS W CLINICAL HISTORY: right inguinal pain TECHNIQUE: Imaging Protocol: Axial computed tomography images with coronal and sagittal reformatted images were created and reviewed CONTRAST MATERIAL: Intravenous: Omnipaque 350 Contrast volume:100 mL Oral: Yes COMPARISON: CT CT ABDOMEN PELVIS W from 09/07/[address] ABDOMEN PELVIS W from 09/07/2020 FINDINGS: ABDOMEN: Lung Bases: There are small bilateral pleural effusions and subjacent infiltrates which may represent atelectasis or pneumonia. Cardiac pacing wires are in place. Liver: Normal density. No measurable mass. Portal, Superior Mesenteric, and Splenic Veins: Unremarkable. Gallbladder and Biliary Tract: Status post cholecystectomy. No significant biliary ductal dilatation . Pancreas: Normal density, no abnormal calcifications or inflammatory process. Spleen: Normal. Calcified granuloma. Adrenals: No masses seen. Kidneys: Normal size, contour and axis. No radiodense stones or obstructive uropathy. Stable cysts. Abdominal Aorta: Abdominal portion non-dilated. Atherosclerosis. Bowel: No obstruction or bowel wall thickening. No evidence of appendicitis. Colonic diverticulosis but no evidence of acute diverticulitis. Peritoneal Cavity: No ascites, collection or mesenteric inflammatory response. No free air. Lymph Nodes: Within normal limits. Bones: Degenerative changes in the spine. Soft Tissues: Small bilateral fat and fluid containing inguinal hernias. PELVIS: Bladder: There is a suprapubic catheter in place. The urinary bladder is nondistended. Reproductive Organs: There is marked enlargement of the prostate gland. Lymph Nodes: Within normal limits. Bones: Within normal limits for the patient's age. IMPRESSION: 1. There are bilateral for inguinal hernia present. There is now small amount of fluid within the ri ght inguinal hernia sac. This was not present on the examination from 09/07/2020. Strangulation of th e herniated fat should be considered. 2. Prostatic enlargement. Suprapubic urinary bladder catheter. 3. Small bilateral pleural effusions with subjacent infiltrates which may represent atelectasis or pn eumonia. RADIATION DOSE DELIVERED: 1,185.55mGy.cm Total DLP DATA REPOSITORY: All CT scans at this facility are submitted to the National Radiology Data Registry (NRDR) Dose Index Registry (DIR) with the [employer] (A[employer]). RADIATION OPTIMIZATION: All CT scans at this facility use at least one of these dose optimization te chniques: automated exposure control; mA and/or kV adjustment per patient size (includes targeted exa ms where dose is matched to clinical indication); or iterative reconstruction.
[2020-09-11 03:20] VITALS: BP 135/73; PULSE 74; RESP 18; TEMP 37; O2SAT 97
[2020-09-11] MEDS: Pantoprazole 40 MG TABCR PO (06:47)
[2020-09-11] MEDS: Levothyroxine 75 MCG TAB PO (06:48)
[2020-09-11 08:18] VITALS: BP 147/83; PULSE 88; RESP 18; TEMP 37.5; O2SAT 95
[2020-09-11] MEDS: Tiotropium Bromide-Respimat 10 PUFF INH IH (08:31)
[2020-09-11] MEDS: Mometasone 220 MCG 14 DOSE INHALER 2 PUFF IH ×2 (08:32→21:16)
[2020-09-11] MEDS: LORazepam 0.5 MG TAB PO ×2 (08:51→13:40)
[2020-09-11] MEDS: Oxybutynin-CR 5 MG TABCR PO (08:51)
[2020-09-11] MEDS: Senna TAB 1 TAB PO ×2 (08:51→21:16)
[2020-09-11] MEDS: Mirabegron 50 MG TABCR PO (08:51)
[2020-09-11] MEDS: Metoprolol 50 MG TAB 75 MG PO ×2 (08:51→21:16)
[2020-09-11] MEDS: Docusate Sodium 100 MG CAP 200 MG PO ×2 (08:52→21:16)
[2020-09-11] MEDS: MORPHine 2 MG/ML SYR IVP ×4 (08:52→20:35)
--- NOTE | 2020-09-11 09:30 | IN_ITS ---
Date of service: 09/11/20 Time of Service: 09:30 PT Notes Visit Reasons: BLADDER HEMATOMA, GROSS HEMATURIA Physical Therapy Inpatient Initial Evaluation Date: 09/11/2020 Referring Doctor: Ben Rodriguez MD PT Orders: PT CONSULT: Extended stay weakness Precautions: Fall. Standard. Activity as tolerated. Patient Profile/Admitting Diagnosis: Patient is an 85-year-old male with past medical history significant for COPD, diastolic heart failure, and hypothyroidism who presented to the ED on 09/07/2020 with chief complaints of persistent blood in urine and abdominal as well as scrotal pain and tenderness. Patient is diagnosed with hematuria, bladder spasm, and paroxysmal atrial fibrillation. PMHX: Medical History (Updated 09/08/20 @ 04:34 by Cristobal Raya MD) Anxiety Atrial fibrillation BPH (benign prostatic hyperplasia) Chronic kidney disease (CKD) Chronic obstructive lung disease Diverticulosis of large intestine without diverticulitis Essential hypertension GERD (gastroesophageal reflux disease) Glaucoma Insomnia Polyp of colon Spinal stenosis of lumbar region Tachycardia-bradycardia Surgical History Colonoscopy - MAC Pacemaker S/P TURP Social History/Home Situation: Lives alone in a private home with 6 steps to enter and rails on B sides. Has neighbors who he says are available to help as needed. Modified independent indoors and outdoors using his 4WW. Equipment Owned/DME: 4WW, FWW Subjective: Agreeable to PT consult. In significant pain when this PT came in for evaluation. Agrred to walk to the bathroom to have a bowel movement. Mildly relieved after a bowel movement. Per Nurse Dionisio patient received IV morphine earlier. Objective: General Observation: Seated on bedside chair inside ED room. Appears to be in pain. Mental Status: Alert and oriented x 4 Pain: 7-8/10 pain in R lower abdominal quadrant ROM: Right Upper Extremity: Unable to lift R shoulder beyond 90 degrees due to pain and anxiety. Elbow flexion WFL. Wrist flexion WFL. Opening and closing of hand WFL. Left Upper Extremity: Shoulder Flexion WFL. Shoulder abduction WFL. Elbow flexion WFL. Wrist flexion WFL. Opening and closing of hand WFL. Right Lower Extremity: Hip flexion WFL. Hip abduction WFL. Knee flexion WFL. Ankle dorsiflexion WFL. Ankle plantarflexion WFL. Left Lower Extremity: Hip flexion WFL. Hip abduction WFL. Knee flexion WFL. Ankle dorsiflexion WFL. Ankle plantarflexion WFL. Strength: Right Upper Extremity: Shoulder flexors 3-/5. Shoulder abductors 3-/5. Elbow flexors 4-/5. Elbow extensors 4-/5. Religious Education Teacher strong. Left Upper Extremity: Shoulder flexors 4-/5. Shoulder abductors 4-/5. Elbow flexors 4-/5. Elbow extensors 4-/5. Religious Education Teacher strong. Right Lower Extremity: Hip flexors 4-/5. Hip abductors 4-/5. Knee flexors 4-/5. Knee extensors 4-/5. Ankle dorsiflexors 4-/5. Ankle plantarflexors 4-/5. Left Lower Extremity: Hip flexors 4-/5. Hip abductors 4-/5. Knee flexors 4-/5. Knee extensors 3+/5. Ankle dorsiflexors 4-/5. Ankle plantarflexors 4-/5. Sensation: Intact as to pain and pressure on bilateral lower extremities. Bed Mobility/Transfers: Sit to stand contact-guard assist Stand to sit contact-guard assist Bed to chair contact-guard assist Chair to bed contact-guard assist Gait: Guided patient through level surface ambulation of 30 feet +30 feet x 75 feet using the FWW with report of 7-8/10 pain in right lower abdominal quadrant. Step-through heel-toe gait pattern. No buckling of L knee. Age-related reduction in jose. Denies headache, dizziness, chest pain. Balance: Static Sitting: Normal Dynamic Sitting: Normal Static Standing: Fair Dynamic Standing: Fair Special Tests: Mobility Limitations Standardized Measure [facility] 6 clicks Basic Mobility Inpatient Short Form: Raw Score: 18 CMS Score: 47% deficit 4-stage Balance test: Unable to maintain semi-tandem, full tandem, and one- legged stance for 10 seconds indicating high risk for falls without use of FWW. Informed Consent/Education: Patient instructed in purpose of PT consult and plan of care. Assessment: Mobility performance limited by pain and shortness of breath. Dino demonstrates the need for an assistive ambulatory device for all mobility ADL performance to maximize independence and reduce fall risk at home, decreased activity tolerance due to pain in R shoulder, and balance impairment. Patient will benefit from senior care facility placement for continued skilled physical therapy services in order to progress mobility level, strength, and balance in preparation for a safe discharge to home. Patient presents with clinical signs and symptoms consistent with current/admitting diagnoses that have resulted to mobility limitations, gait instability, generalized weakness, and impairment of motor control as demonstrated by the following impairment level findings: 1. Decreased strength to R UE/R LE major muscle groups 2. Impaired standing balance 3. Impaired activity tolerance 4. Limitation of joint range of motion in R shoulder 5. Pain in r lower abdominal quadrant 6. SOB with ambulation Impairments are contributing to the following functional limitations: 1. Inability to safely ambulate without assistive device 2. Increase completion time for mobility ADL performance 3. Increased fall risk 4. Inability to negotiate steps alone safely Patient is assessed as a [id number] complexity based on the following: History: 85-year-old male with impairment level findings, functional limitations, and past medical history as indicated above Examination: Demonstrable impairment in strength, balance, and mobility level with underlying impairments and functional limitations as documented above Presentation:Evolving Decision Makin moderate complexity Goals: Goals X1 week 1. Supine-Sit independent 2. Sit-Supine independent 3. Sit-Stand independent 4. Stand-Sit independent 5. Bed-Chair independent 6. Chair-Bed independent 7. Independent gait on level surface with use of least restrictive device for at least 300 feet without report of pain nor dyspnea 8. Independent stair negotiation while holding onto bilateral rails for at least 10 steps without report of pain nor dyspnea 9. Independent with home exercise program 10. Good static and dynamic standing balance/tolerance Plan of Care/Treatment Plan: 1-2x/day, 7 days/week x 1 week. Plan of care has been reviewed with the MEDICAL RECEPTIONIST providing the service under Physical Therapy direction. Initiate Physical Therapy intervention for strengthening, bed mobility, transfers, gait, stairs, balance training, use of assistive device. PT INTERVENTION RECEIVED TODAY: Assessment for and fitting of appropriate assistive device. Guided patient through transfers and mobility ADL performance on level surfaces using front wheeled walker in order to reduce fall risk. DISCHARGE RECOMMENDATIONS: Patient will benefit from senior care facility placement for continued skilled physical therapy services in order to progress mobility level, strength, and balance in preparation for a safe discharge to home. TREATMENT CODE/TIME: 34148 x 32 minutes beginning at 9:30 AM. Thank you for the opportunity to participate in the care of this patient. Elsa Menchaca PT, DPT, CLT [facility] [place], [place]
[2020-09-11 11:10] LABS: Abs Immature Grans 0.04 10^3/uL (0.0-0.06); Absolute Basophil Count 0.03 10^3/uL (0.0-0.2); Absolute Eosinophil Count 0.04 10^3/uL (0.0-0.7); Absolute Lymphocyte Count 1.02 10^3/uL (1.2-3.4); Absolute Monocyte Count 0.92 10^3/uL (0.1-0.8); Basophils % 0.4; Eosinophils % 0.6; HCT 40.8 % (40.0-50.0); HGB 12.9 g/dL (13.5-17.5); Immature Grans % 0.6; Lymphocytes % 14.1; MCH 30.2 pg (27.0-33.0); MCHC 31.6 % (32.0-36.0); MCV 95.6 fL (80-95); MPV 9.9 fL (8.0-11.0); Monocytes % 12.7; Neutrophils % 71.6; Nucleated RBC 0 %; Platelet Count 195 10^3/uL (130-400); RBC 4.27 10^6/uL (4.36-5.78); RDW 16.3 % (11.8-14.1); RDW-SD 56.9 fL; WBC 7.25 10^3/uL (4.4-10.8)
[2020-09-11 11:18] LABS: BUN 15 mg/dL (7-18); CREATININE 1.3 mg/dL (0.70-1.30); Calcium 8.6 mg/dL (8.5-10.1); Estimated GFR 52.59 (mL/min/1.73m2); Glucose 108 mg/dL (74-106); Sodium 142 mmol/L (136-145)
[2020-09-11 11:19] LABS: Anion Gap 7.3 mmol/L (3-11); CO2 25.7 mmol/L (21.0-32.0); Chloride 109 mmol/L (98-107); Potassium 4.2 mmol/L (3.5-5.1)
[2020-09-11 11:20] LABS: C-Reactive Protein 2.74 mg/dL (0.0-0.3)
[2020-09-11 11:43] LABS: Procalcitonin < 0.1 ng/mL
[2020-09-11] MEDS: Normal Saline Flush 10 ML SYR IVP ×3 (13:39→20:36)
--- NOTE | 2020-09-11 15:31 | PT.INTREAT ---
Date of service: 09/11/20 Time of Service: 14:00 PT Notes Visit Reasons: BLADDER HEMATOMA, GROSS HEMATURIA Inpatient Physical Therapy Treatment Note [facility] Date: 09/11/2020 PRECAUTIONS: Fall SUBJECTIVE: Brenden is hesitant but agreeable to attempting PT this afternoon. He reports that he is in a lot of pain in his groin area. He reports that he felt a snap, then I was in a lot of pain. Nursing aware. OBJECTIVE: PAIN: Patient c/o severe pain in groin area with gait training, transfers, and at rest. BED MOBILITY/TRANSFERS Sit-stand: CGA Stand-sit: CGA GAIT Assistive Device: FWW Weight bearing: Full Assist: SBA Distance: 40' Deviation: Significant pain in groin area THEREX: Unable to participate in ther ex due to severe pain ASSESSMENT: Patient was limited by reports of severe groin pain at all times. PLAN: Continue with global strengthening and gait and transfer training, as tolerated, for improved activity tolerance and continued progression toward baseline level of function. TREATMENT CODE/TIME: 15 minutes; 25364 (14:00)
[2020-09-11] MEDS: Albuterol HFA 18 GM 200 PUFF INH IH (15:39)
--- NOTE | 2020-09-11 15:46 | W.PM.PROGNOT ---
Date of Service Date of service: 09/11/20 Time of Service: 15:46 Assessment and Plan Assessment and plan (1) Right inguinal pain: Status: Acute Assessment and plan: Will obtain contrast-enhanced CT scan of his abdomen pelvis and consult with surgery. Case discussed with Dr. Steiner. (2) Hematuria: Status: Acute Assessment and plan: CBI discontinued. Further evaluation as per urology. Qualifiers: Hematuria type: gross Qualified Code(s): R31.0 - Gross hematuria (3) Atrial fibrillation: Status: Chronic Assessment and plan: Rate is well controlled with Lopressor. Qualifiers: Atrial fibrillation type: paroxysmal Qualified Code(s): I48.0 - Paroxysmal atrial fibrillation (4) Chronic constipation: Status: Chronic Assessment and plan: Patient is on a strong bowel regimen of senna and Colace along with as needed Dulcolax. Patient had moderate liquid stool yesterday but so far no bowel movement today. (5) COPD (chronic obstructive pulmonary disease): Status: Chronic Assessment and plan: Continue current bronchodilators. Qualifiers: COPD type: unspecified COPD Qualified Code(s): J44.9 - Chronic obstructive pulmonary disease, unspecified (6) Hypertension: Status: Chronic Assessment and plan: Continue current home blood pressure meds Qualifiers: Hypertension type: essential hypertension Qualified Code(s): I10 - Essential (primary) hypertension Subjective Subjective Interval history since last seen: Patient developed sudden onset of right inguinal pain after straining to have a bowel movement. He states he felt a pop and started having exquisite pain. This occurred a couple hours ago. There is no nausea or vomiting. As for his hematuria this appears to be clearing up. He is no longer having continuous bladder irrigation. Exam Narrative Exam Narrative: Elderly male holding his groin. He will let me perform adequate examination. He has obvious right inguinal hernia that is tender to palpation. Abdomen is also distended and tender in the right lower quadrant. Objective Last Vital Signs Temp 37.5 C 09/11/20 08:18 Pulse 88 09/11/20 08:18 Resp 18 09/11/20 08:18 BP 147/83 H 09/11/20 08:18 Pulse Ox 95 09/11/20 08:18 Laboratory Results - last 24 hr 09/11/20 09/11/20 09/11/20 11:01 11:01 11:01 WBC 7.25 RBC 4.27 L Hgb 12.9 L Hct 40.8 MCV 95.6 H MCH 30.2 MCHC 31.6 L RDW 16.3 H Plt Count 195 MPV 9.9 Immature Gran % 0.6 Neutrophils % 71.6 Lymphocytes % 14.1 Monocytes % 12.7 Eosinophils % 0.6 Basophils % 0.4 Nucleated RBC % 0 Absolute Neutrophils 5.20 Absolute Lymphocytes 1.02 L Absolute Monocytes 0.92 H Absolute Eosinophils 0.04 Absolute Basophils 0.03 Sodium 142 Potassium 4.2 Chloride 109 H Carbon Dioxide 25.7 Anion Gap 7.3 BUN 15 Creatinine 1.3 Estimated GFR/1.73 m2 52.59 Glucose 108 H Calcium 8.6 C-Reactive Protein 2.74 H Procalcitonin 09/11/20 11:01 WBC RBC Hgb Hct MCV MCH MCHC RDW Plt Count MPV Immature Gran % Neutrophils % Lymphocytes % Monocytes % Eosinophils % Basophils % Nucleated RBC % Absolute Neutrophils Absolute Lymphocytes Absolute Monocytes Absolute Eosinophils Absolute Basophils Sodium Potassium Chloride Carbon Dioxide Anion Gap BUN Creatinine Estimated GFR/1.73 m2 Glucose Calcium C-Reactive Protein Procalcitonin < 0.1
--- NOTE | 2020-09-11 16:06 | CMPROGNOTE_ITS ---
Care Management Progress Note S/O: Brenden reported feeling a pop in his pelvis area, and having increased pain throughout the day. Emilee of PT reports Brenden was unable to be fully evaluated due to his pain level at this time. CM continues to follow and support. CM to continue to update [facility] for home based care/[employer] scheduling updates. CM continues to follow. A: 85 year old male admitted to [facility] 09/07/20 for bladder hematoma, gross hematuria P: Anticipate Brenden will be discharge home with a resumption of CFC and HH services when medically cleared by provider. Awaiting medical stability and PT evaluation for further recommendation. He will follow up with his PCP, urology, and discharge plan of care as directed. CM will coordinate RCT transport home when Brenden is ready for discharge. CM will continue to follow.
[2020-09-11 16:14] VITALS: BP 139/71; PULSE 71; RESP 22; TEMP 37.3; O2SAT 97
[2020-09-11] MEDS: Omnipaque 350 MG/ML 100 ML BTL IJ (18:32)
[2020-09-11] MEDS: Normal Saline - Diluent 50 ML VIAL IV (18:35)
--- NOTE | 2020-09-11 18:46 | SCONE_ITS ---
Date of service: 09/11/20 Time of Service: 16:00 Assessment and Plan Assessment and plan (1) Inguinal hernia, right: Status: Acute Assessment and plan: 85 year old male who describes feeling a pop when he was pushing to have a BM. CT scan with a fat containing right inguinal hernia and some fluid. Possible strangulation of the fat. No bowel within the hernia. consider elective hernia repair if patient is able to tolerate General anesthetic. This can be painful but is not life threatening. For now recommend ice alternating with heat. Ibuprofen if able to take and tylenol for pain. 45 minutes spend seeing the patient, reviewing the records, and looking at the CT scan History of Present Illness History of Present Illness Chief Complaint: abdominal pain Narrative: Mr Ross is a 85 year old male admitted on 09/08 with 4day history of lower abdominal pain. spastic in nature. manipulation of his SP tube made it worse. Nothing appeared to make it better. had been on going for several days, slowly worsening. No radiation. no n/v. + associated with constipation. Surgery was consulted to r/o Gneral surgical pathology. Lactate was normal, CT scan negative. Today patient had to strain to have a BM (he has chronic constipation) and felt a pop. After that he complained of RLQ abdominal pain. Per his nurse patient also complains of right testicular pain. He would not allow Dr. Rodriguez to do an exam of his lower abdomen. CT scan was order with IV and Oral contrast. Ct scan reviewed. I see a fluid collection in the right inguinal area. No bowel within the hernia sac. FINDINGS: Tubes, catheters and devices: Suprapubic catheter in the urinary bladder. Lungs: Bilateral lung base atelectasis versus scarring. Mild bronchiectasis features in the posterior left lower lobe. Pleural spaces: Small bilateral pleural effusions. Heart: Mild cardiomegaly. Pacemaker. Liver: Diffuse mild fatty liver change. Gallbladder and bile ducts: Previous cholecystectomy. No biliary dilatation. Pancreas: Moderate pancreatic atrophy. No acute inflammation. Spleen: Splenic granulomatous calcifications. Adrenal glands: The adrenal glands are normal in size and contour bilaterally. Kidneys and ureters: Bilateral mild renal atrophy. No renal inflammation or acute obstructive features. Stomach and bowel: Extensive colonic diverticulosis. No focal region of acute diverticulitis. No colonic edema. No obstructive changes. No masslike features. Small bowel loops are unremarkable. No obstruction. No edema. Gastric morphology is unremarkable. Appendix: No evidence of appendicitis. Intraperitoneal space: Unremarkable. No free air. No significant fluid collection. Vasculature: Unremarkable. No abdominal aortic aneurysm. Lymph nodes: Unremarkable. No enlarged lymph nodes. Urinary bladder: Unremarkable as visualized. Reproductive: Prostatic enlargement. Bones/joints: Severe degenerative lumbar spine disease. Soft tissues: Bilateral inguinal hernias containing fat. There is a small focal area of fluid in the right inguinal hernia measuring 2.6 x 2.2 cm which was not present 09/07/2020. Possibility of strangulation of the right inguinal hernia fat cannot be excluded. See coronal series 6, image 41. See axial series 4, image 81. The hernia is approximately 5 cm in length and 2.5 cm in width. IMPRESSION: 1. Right inguinal hernia. There is fluid within the fat containing inguinal hernia sac which was not present 09/07/2020. Possibility of strangulation of this herniated fat should be considered. 2. Suprapubic bladder catheter. 3. Prostate enlargement. 4. Diffuse colonic diverticulosis. No acute diverticulitis. 5. Mild fatty liver change. 6. Splenic granulomatous calcifications. 7. Bilateral renal atrophy. 8. Pancreatic atrophy. 9. Small bilateral pleural effusions. Bibasilar scarring versus atelectasis and mild bronchiectasis. 10. Degenerative lumbar spine changes. 11. Pacemaker. Consults Consult date: 09/11/20 Requesting physician: Ben Rodriguez Review of Systems Constitutional Constitutional: Denies fever(s) and Denies poor appetite Cardiovascular Cardiovascular: Denies chest pain, Denies radiating jaw, neck or arm pain and Denies dyspnea Respiratory Respiratory: Denies cough and Denies dyspnea Gastrointestinal Gastrointestinal: Reports as per HPI Genitourinary Genitourinary: Reports as per HPI [facility] Medical History (Updated 09/11/20 @ 19:13 by Cony Steiner MD) Anxiety Atrial fibrillation BPH (benign prostatic hyperplasia) Chronic kidney disease (CKD) Chronic obstructive lung disease Diverticulosis of large intestine without diverticulitis Essential hypertension GERD (gastroesophageal reflux disease) Glaucoma Insomnia Polyp of colon Spinal stenosis of lumbar region Tachycardia-bradycardia Surgical History Colonoscopy - MAC Pacemaker S/P TURP Social History Smoking/Tobacco Use Status: Former Tobacco Use Smoking risk assessment performed?: Yes Alcohol Intake: former Drug use: Never Substance use type: does not use Do you feel safe at home: Yes Do you feel safe in your relationship?: Yes Exam Const General: cooperative, comfortable and no acute distress Orientation: alert and oriented x3 HENMT Head: normocephalic and atraumatic Resp Effort & Inspection: normal respiratory effort GI Inspection: normal to inspection and obesity Palpation: soft, no hernias and tender (mild tenderness RLQ and suprapubic. No guarding or rebound.) Other: No palpable hernia on the right or the left Other: edematous penis Right testicle feels normal but is tender to palpation Results Last Vital Signs Temp 99.1 F 09/11/20 16:14 Pulse 71 09/11/20 16:14 Resp 22 09/11/20 16:14 BP 139/71 09/11/20 16:14 Pulse Ox 97 09/11/20 16:14 Labs Result diagrams: 09/11/20 11:01 09/11/20 11:01 Labs: Laboratory Results - last 24 hr 09/11/20 09/11/20 09/11/20 11:01 11:01 11:01 WBC 7.25 RBC 4.27 L Hgb 12.9 L Hct 40.8 MCV 95.6 H MCH 30.2 MCHC 31.6 L RDW 16.3 H Plt Count 195 MPV 9.9 Immature Gran % 0.6 Neutrophils % 71.6 Lymphocytes % 14.1 Monocytes % 12.7 Eosinophils % 0.6 Basophils % 0.4 Nucleated RBC % 0 Absolute Neutrophils 5.20 Absolute Lymphocytes 1.02 L Absolute Monocytes 0.92 H Absolute Eosinophils 0.04 Absolute Basophils 0.03 Sodium 142 Potassium 4.2 Chloride 109 H Carbon Dioxide 25.7 Anion Gap 7.3 BUN 15 Creatinine 1.3 Estimated GFR/1.73 m2 52.59 Glucose 108 H Calcium 8.6 C-Reactive Protein 2.74 H Procalcitonin 09/11/20 11:01 WBC RBC Hgb Hct MCV MCH MCHC RDW Plt Count MPV Immature Gran % Neutrophils % Lymphocytes % Monocytes % Eosinophils % Basophils % Nucleated RBC % Absolute Neutrophils Absolute Lymphocytes Absolute Monocytes Absolute Eosinophils Absolute Basophils Sodium Potassium Chloride Carbon Dioxide Anion Gap BUN Creatinine Estimated GFR/1.73 m2 Glucose Calcium C-Reactive Protein Procalcitonin < 0.1
--- NOTE | 2020-09-11 19:05 | DI.VRAD_ITS ---
Addendum created by Abilio Umanzor MD on 09/11/2020 7:51:00 PM EST: Findings were discussed with Dr. Luis Initial report created on 09/11/2020 7:05:33 PM EST: PROCEDURE INFORMATION: Exam: CT Abdomen And Pelvis With Contrast Exam date and time: 09/11/2020 6:24 PM Age: 85 years old Clinical indication: Other: Right inguinal pain TECHNIQUE: Imaging protocol: Computed tomography of the abdomen and pelvis with contrast. Contrast material: OMNIPAQUE 350; Contrast volume: 100 ml; Contrast route: INTRAVENOUS (IV); COMPARISON: CT ABDOMEN PELVIS W 09/07/2020 8:21 PM FINDINGS: Tubes, catheters and devices: Suprapubic catheter in the urinary bladder. Lungs: Bilateral lung base atelectasis versus scarring. Mild bronchiectasis features in the posterior left lower lobe. Pleural spaces: Small bilateral pleural effusions. Heart: Mild cardiomegaly. Pacemaker. Liver: Diffuse mild fatty liver change. Gallbladder and bile ducts: Previous cholecystectomy. No biliary dilatation. Pancreas: Moderate pancreatic atrophy. No acute inflammation. Spleen: Splenic granulomatous calcifications. Adrenal glands: The adrenal glands are normal in size and contour bilaterally. Kidneys and ureters: Bilateral mild renal atrophy. No renal inflammation or acute obstructive features. Stomach and bowel: Extensive colonic diverticulosis. No focal region of acute diverticulitis. No colonic edema. No obstructive changes. No masslike features. Small bowel loops are unremarkable. No obstruction. No edema. Gastric morphology is unremarkable. Appendix: No evidence of appendicitis. Intraperitoneal space: Unremarkable. No free air. No significant fluid collection. Vasculature: Unremarkable. No abdominal aortic aneurysm. Lymph nodes: Unremarkable. No enlarged lymph nodes. Urinary bladder: Unremarkable as visualized. Reproductive: Prostatic enlargement. Bones/joints: Severe degenerative lumbar spine disease. Soft tissues: Bilateral inguinal hernias containing fat. There is a small focal area of fluid in the right inguinal hernia measuring 2.6 x 2.2 cm which was not present 09/07/2020. Possibility of strangulation of the right inguinal hernia fat cannot be excluded. See coronal series 6, image 41. See axial series 4, image 81. The hernia is approximately 5 cm in length and 2.5 cm in width. IMPRESSION: 1. Right inguinal hernia. There is fluid within the fat containing inguinal hernia sac which was not present 09/07/2020. Possibility of strangulation of this herniated fat should be considered. 2. Suprapubic bladder catheter. 3. Prostate enlargement. 4. Diffuse colonic diverticulosis. No acute diverticulitis. 5. Mild fatty liver change. 6. Splenic granulomatous calcifications. 7. Bilateral renal atrophy. 8. Pancreatic atrophy. 9. Small bilateral pleural effusions. Bibasilar scarring versus atelectasis and mild bronchiectasis. 10. Degenerative lumbar spine changes. 11. Pacemaker. Dictated and Authenticated by: Abilio Umanzor MD. Ordering:.[facility] Michael Contreras MD
[2020-09-11] MEDS: LORazepam 2 MG/ML VIAL 1 MG IVP (20:12)
[2020-09-11] MEDS: rOPINIRole 0.5 MG TAB 1 MG PO (21:15)
[2020-09-11] MEDS: Mirtazapine 15 MG TAB PO (21:16)
[2020-09-11] MEDS: Latanoprost 0.005% 2.5 ML BTL OP (21:17)
[2020-09-11 21:34] VITALS: BP 116/69; PULSE 65; RESP 20; TEMP 36.9; O2SAT 92
--- NOTE | 2020-09-12 | DI.US_ITS ---
EXAM: US SCROTUM CLINICAL HISTORY: scrotal pain. TECHNIQUE: Scrotal ultrasound performed using grayscale, color-flow and spectral Doppler analysis. COMPARISON: No exams were available for comparison FINDINGS: Right testicle: 2.9 x 2 x 2 cm Echogenicity: Normal. No evidence of torsion. Contour: Smooth. Mass: None seen. Microlithiasis: None. Hydrocele: There is a large hydrocele measuring 5.9 x 4.6 x 4.9 cm. Variocele: None. Hernia: No peristalsing bowel loop identified. Epididymis: Normal. Left testicle: 3.0 x 2 x 1.7 cm Echogenicity: Normal. No evidence of torsion. Contour: Smooth. Mass: Intra testicular cysts are seen. The largest measures 1.1 cm. Microlithiasis: None. Hydrocele: There is a large hydrocele measuring 5.3 x 1.8 x 5.0 cm. Variocele: None. Hernia: No peristalsing bowel loop identified. Epididymis: The epididymis is heterogeneous with areas of decreased echogenicity. No increased blood flow is seen. DOPPLER: Color: Symmetric and uniform, no hyperemia. Duplex: Bilateral testicular arterial waveforms visualized. IMPRESSION: 1. No evidence of testicular torsion. 2. Left intra testicular simple cysts. Differential considerations include, but are not limited to, intratesticular spermatoceles, simple testicular cysts or cystic transformation of the rete testis. Testicular tumors cannot be in entirely excluded. 3. Large bilateral hydroceles. 4. Heterogeneous appearance to the left epididymis. No increased blood flow to suggest infection or inflammation. Chronic epididymitis, malignant or benign tumor should be considered. DATA REPOSITORY:
[2020-09-12 00:13] VITALS: BP 118/92; PULSE 79; RESP 20; TEMP 36.9; O2SAT 91
[2020-09-12] MEDS: Pantoprazole 40 MG TABCR PO (06:26)
[2020-09-12] MEDS: Levothyroxine 75 MCG TAB PO (06:26)
[2020-09-12] MEDS: Albuterol HFA 18 GM 200 PUFF INH IH (06:44)
[2020-09-12 07:56] VITALS: BP 111/58; PULSE 78; RESP 20; TEMP 36.9; O2SAT 93
[2020-09-12] MEDS: Normal Saline Flush 10 ML SYR IVP (08:06)
[2020-09-12] MEDS: MORPHine 2 MG/ML SYR IVP (08:06)
[2020-09-12] MEDS: Oxybutynin-CR 5 MG TABCR PO (08:07)
[2020-09-12] MEDS: Metoprolol 50 MG TAB 75 MG PO ×2 (08:07→20:39)
[2020-09-12] MEDS: LORazepam 0.5 MG TAB PO ×3 (08:07→20:40)
[2020-09-12] MEDS: Docusate Sodium 100 MG CAP 200 MG PO ×2 (08:07→20:39)
[2020-09-12] MEDS: Senna TAB 1 TAB PO ×2 (08:07→20:40)
[2020-09-12] MEDS: Mirabegron 50 MG TABCR PO (08:07)
[2020-09-12 10:23] LABS: Anion Gap 8.5 mmol/L (3-11); BUN 14 mg/dL (7-18); CO2 24.5 mmol/L (21.0-32.0); CREATININE 1.3 mg/dL (0.70-1.30); Calcium 8.4 mg/dL (8.5-10.1); Chloride 106 mmol/L (98-107); Estimated GFR 52.59 (mL/min/1.73m2); Glucose 106 mg/dL (74-106); Potassium 4.1 mmol/L (3.5-5.1); Sodium 139 mmol/L (136-145)
[2020-09-12] MEDS: Mometasone 220 MCG 14 DOSE INHALER 2 PUFF IH ×2 (10:35→20:40)
[2020-09-12] MEDS: Tiotropium Bromide-Respimat 10 PUFF INH IH (10:40)
--- NOTE | 2020-09-12 12:13 | W.NUTRFU ---
Date of service: 09/12/20 Time of Service: 12:14 Nutritional Follow up NOTE: 85 year old male admitted with bladder hematoma. BMI wnl. Following regular meal plan with adequate intake. Not considered at nutritional risk. Will continue to follow. Time Spent in Nutritional Counseling and Treatment: 0
--- NOTE | 2020-09-12 13:17 | PT.INTREAT ---
Date of service: 09/12/20 Time of Service: 08:50 PT Notes Visit Reasons: BLADDER HEMATOMA, GROSS HEMATURIA Inpatient Physical Therapy Treatment Note [facility] Date: 09/12/2020 PRECAUTIONS: Fall SUBJECTIVE: Brenden reports continued pain in the groin area in a.m. He is feeling better in p.m., and is agreeable to participating in PT. OBJECTIVE: PAIN: Patient complained of significant groin pain in a.m. BED MOBILITY/TRANSFERS Supine-sit: Min a with HOB flat in a.m.; S with HOB at 40 degrees in p.m. Sit-supine: S with HOB flat Sit-stand: CGA in a.m.; SBA in p.m. Stand-sit: CGA in a.m.; SBA in p.m. Bed-Chair: CGA in a.m.; SBA in p.m. Chair-bed: CGA in a.m.; SBA in p.m. GAIT Assistive Device: FWW Weight bearing: Full Assist: CGA in a.m.; SBA in p.m. Distance: 10' in a.m.; 80' in p.m. Deviation: Significant groin pain in a.m.; no pain, mild SOB in p.m. THEREX: Patient was instructed in several lower extremity strengthening exercises, completed while seated at edge of bed, as per flow sheet. ASSESSMENT: Patient tolerated afternoon session, well due to lack of groin pain. He was able to tolerate a progression in gait distance with FWW support and SBA. PLAN: He would benefit from continued gait and transfer training as well as global strengthening for improved activity tolerance and mobility. TREATMENT CODE/TIME: Session 1: 10 minutes; 80965 (08:50) Session 2: 15 minutes; [id number] (12:55)
--- NOTE | 2020-09-12 13:35 | W.PM.PROGNOT ---
Date of Service Date of service: 09/12/20 Time of Service: 13:35 Assessment and Plan Assessment and plan (1) Hematuria: Status: Acute Assessment and plan: He has no gross hematuria at this time. I will go ahead and switch his suprapubic tube from the irrigating Kang back to a 16 Divehi Kagn catheter. The bilateral hydroceles and cystic lesions on the left testis and epididymis and not overly concerning. We generally do not recommend any type of treatment unless the patient is overly symptomatic. Treatment would require a surgical procedure with either general or spinal anesthetic. Given the patient's age, I am not overly concerned about the possibility of a testicular tumor (average age group is 18-35). Qualifiers: Hematuria type: gross Qualified Code(s): R31.0 - Gross hematuria (2) Bilateral hydrocele: Status: Acute Subjective Subjective Interval history since last seen: His urine has remained clear He noted right groin pain after straining to move his bowels yesterday. He was found to have a right inguinal hernia. He had a scrotal ultrasound done today Exam Narrative Exam Narrative: His urine remains clear in the catheter drainage tube His vital signs are documented elsewhere He is awake and alert The scrotum is enlarged with no erythema, ecchymosis or fluctuance. The scrotal ultrasound is reviewed on the PACS system. He has bilateral hydroceles as well as cystic lesions on the left testis and epididymis Objective Last Vital Signs Temp 36.9 C 09/12/20 07:56 Pulse 78 09/12/20 07:56 Resp 20 09/12/20 07:56 BP 111/58 L 09/12/20 07:56 Pulse Ox 93 09/12/20 07:56 Laboratory Results - last 24 hr 09/12/20 10:09 Sodium 139 Potassium 4.1 Chloride 106 Carbon Dioxide 24.5 Anion Gap 8.5 BUN 14 Creatinine 1.3 Estimated GFR/1.73 m2 52.59 Glucose 106 Calcium 8.4 L Change Bladder Catheter Text: The patient was seen while he was sitting up in a chair. He had an indwelling irrigating 20 Divehi catheter as his suprapubic tube. The catheter balloon was deflated and the catheter was removed. The site was then prepped with Betadine. A 16 Divehi catheter was passed back through the suprapubic tract into the bladder. The catheter balloon was inflated with 10 cc of sterile water and the catheter was hooked to gravity drainage. No gross blood was identified at the time of the catheter change. He tolerated this well.
[2020-09-12] MEDS: Acetaminophen 325 MG TAB 650 MG PO (13:45)
[2020-09-12 15:20] VITALS: BP 118/71; PULSE 82; RESP 18; TEMP 36; O2SAT 96
--- NOTE | 2020-09-12 15:33 | CHAPLAIN ---
Dino was resting on his bed when I visited. He is hoping to be discharged soon. We had a short visit.
--- NOTE | 2020-09-12 16:00 | PGE_ITS ---
Date of Service Date of service: 09/12/20 Time of Service: 16:01 Assessment and Plan Assessment and plan (1) Right inguinal pain: Status: Acute Assessment and plan: CT scan showed incarcerated right inguinal hernia containing fat stranding but no bowel. Pain is improved. I will switch him over to oral analgesics with Nucynta. Pain remains well controlled he can be discharged home tomorrow. (2) Hematuria: Status: Acute Assessment and plan: CBI discontinued. Suprapubic changed to a regular catheter. No further hematuria at this time. Qualifiers: Hematuria type: gross Qualified Code(s): R31.0 - Gross hematuria (3) Atrial fibrillation: Status: Chronic Assessment and plan: Rate is well controlled with Lopressor. Is on his home dose of Lopressor 75 mg twice a day. In light of the bladder hematoma and recent hematuria I will keep him off his Pradaxa until given the okay from Dr. Hendricks. Qualifiers: Atrial fibrillation type: paroxysmal Qualified Code(s): I48.0 - Paroxysmal atrial fibrillation (4) Chronic constipation: Status: Chronic Assessment and plan: Continue stool softeners and laxatives as needed. (5) COPD (chronic obstructive pulmonary disease): Status: Chronic Assessment and plan: Continue current bronchodilators. Qualifiers: COPD type: unspecified COPD Qualified Code(s): J44.9 - Chronic obstructive pulmonary disease, unspecified (6) Hypertension: Status: Chronic Assessment and plan: Continue current home blood pressure meds. Patient has been off his furosemide since admission. Patient had prerenal azotemia on admission. I cannot find a diagnosis of heart failure and the only echocardiogram I can find is from January 17, 2016. At that time his left ventricular ejection fraction was 55 to 60% although he had mild hypokinesis of the basal inferolateral wall. However he has significant valvular heart disease including mild to moderate aortic insufficiency and mild mitral regurgitation. He also has mild pulmonary hypertension. This time I will resume low-dose furosemide 20 mg once a day along with potassium supplementation. Qualifiers: Hypertension type: essential hypertension Qualified Code(s): I10 - Essential (primary) hypertension Subjective Subjective Interval history since last seen: His abdominal pain and inguinal pain has impr neftali. Patient has been incarcerated inguinal hernia containing fat. Scrotal ultrasound showed bilateral hydroceles as well as heterogeneous appearance to the left epididymis. With no evidence of increased flow to suggest infection or inflammation. He also has left intratesticular simple cyst. Per Dr. Hendricks he is not concerned about testicular cancer in this gentleman. Eladio changed his Kang catheter from his CBI catheter to a simple suprapubic catheter. Exam Narrative Exam Narrative: Elderly male sitting up in his chair napping. I awakened him. He denies any shortness of breath or chest discomfort. He states his abdominal pain and groin pain are markedly better but still some mild tenderness. Lungs with bibasilar rales Heart is irregular Abdomen soft no guarding no rebound tenderness. Suprapubic catheter is in place Scrotum with mild edema still with some tenderness Objective Last Vital Signs Temp 36.0 C L 09/12/20 15:20 Pulse 82 09/12/20 15:20 Resp 18 09/12/20 15:20 BP 118/71 09/12/20 15:20 Pulse Ox 96 09/12/20 15:20 Laboratory Results - last 24 hr 09/12/20 10:09 Sodium 139 Potassium 4.1 Chloride 106 Carbon Dioxide 24.5 Anion Gap 8.5 BUN 14 Creatinine 1.3 Estimated GFR/1.73 m2 52.59 Glucose 106 Calcium 8.4 L
--- NOTE | 2020-09-12 16:44 | PHA.REVIEW ---
Pharmacy Admission Review - Admission Clinical Review (Last Updated 09/12/20 @ 13:38 by David Hendricks MD) Bilateral hydrocele (Acute) Inguinal hernia, right (Acute) Right inguinal pain (Acute) Hematuria (Acute) Bladder spasms (Acute) Abdominal pain (Acute) Paroxysmal atrial fibrillation (Acute 07/31/16) banana Allergy (Mild, Unverified 09/07/20 19:11) Skin Rash formoterol fumarate [From Dulera] Adverse Reaction (Intermediate, Unverified 09/07/20 19:11) Ineffective per Pt mometasone furoate [From Dulera] Adverse Reaction (Intermediate, Unverified 09/07/20 19:11) Ineffective per Pt hydrocodone Adverse Reaction (Unknown, Unverified 09/07/20 19:11) Dizziness/Lightheade Height 5 ft 10 in Weight 70.307 kg BLADDER HEMATOMA, Scrotal inflammation - Comments Comments/Follow Ups: Hematuria seems to have subsided, H/H stable. Afib well controlled w/home meds, pain improved, converting to oral pain meds, edema of scrotum managed with some Lasix, anticipate discharge Wednesday09/13/20 - Renal Dosing Renal Dosing: BUN 14 mg/dL (7-18) 09/12/20 10:09 Creatinine 1.3 mg/dL (0.70-1.30) 09/12/20 10:09 Medications needing adjustments: Reviewed (CrCl~42ml/min) - Anticoagulation Anticoagulation: Hgb 12.9 g/dL (13.5-17.5) L 09/11/20 11:01 Hct 40.8 % (40.0-50.0) 09/11/20 11:01 Plt Count 195 10^3/uL (130-400) 09/11/20 11:01 INR 1.4 (0.9-1.1) H 09/07/20 19:25 Creatinine 1.3 mg/dL (0.70-1.30) 09/12/20 10:09 DVT Prohphylaxis: N/A (Hematuria up until 09/11/20...now urine clear x24h, home Pradaxa held at this time) - Opiate Usage Evaluate Pain Scale/Pains Meds: Reviewed (Nucynta, Fentanyl IVP, Morphine IVP) Scheduled Bowel Reg ordered if on Opiates?: Yes (Docusate, Senna) - Relevant Labs Sodium 139 mmol/L (136-145) 09/12/20 10:09 Potassium 4.1 mmol/L (3.5-5.1) 09/12/20 10:09 Chloride 106 mmol/L (98-107) 09/12/20 10:09 C-Reactive Protein 2.74 mg/dL (0.0-0.3) H 09/11/20 11:01 Electrolytes, C-Reactive P, ESR: Reviewed (Inflammation of scrotum, see if MD repeats C-reactive protein, Procalcitonin <0.1) - DM Control DM Control: Glucose 106 mg/dL (74-106) 09/12/20 10:09 Insulin Dosing: N/A - Heart Failure/[place] EF%, JULISSA's, B-Blockers, Diuretics: Reviewed (Lasix daily just started 09/12/20, Metoprolol tartrate) - BP Control BP Control: Blood Pressure 118/71 Blood Pressure 111/58 If elevated: Reviewed - Qtc Review If Elevated: Reviewed (QTC 477, Has A-fib) - IV to PO Switch IV Medications: Reviewed (IV to oral pain meds) - Home Meds Home Med List reviewed: Reviewed (Patient's own Ursodiol not obtained, Pradaxa held for hematuria)
[2020-09-12] MEDS: Potassium Chloride 20 MEQ TABCR PO (16:51)
[2020-09-12] MEDS: Furosemide 20 MG TAB PO (16:52)
[2020-09-12] MEDS: Mirtazapine 15 MG TAB PO (21:43)
[2020-09-12] MEDS: rOPINIRole 0.5 MG TAB 1 MG PO (21:43)
[2020-09-12] MEDS: Latanoprost 0.005% 2.5 ML BTL OP (21:44)
--- NOTE | 2020-09-12 22:07 | PDOC.CMPRO ---
- If Service Date Differs Date of service: 09/12/20 Time of Service: 22:07 Care Management Progress Note S/O: Brenden was sitting up in a chair when CM met with him. He was pleasant and agreeable to conversation. Brenden shared that he has a lot of pain in his scrotal area due to a hernia. He stated that pain medicine takes the edge off the pain but that it doesn't take it away. He voiced concern that the surgeon was not willing to operate because of his heart problems. When asked, Brenden admitted that he enjoys word searches so CM provided him with a word search book and pen. Brenden appeared very pleased and started working on them at that time. A: 85 year old male admitted to [facility] 09/07/20 for bladder hematoma, gross hematuria P: Anticipate Brenden will be discharge home with a resumption of CFC and HH services when medically cleared by provider. Awaiting medical stability and PT evaluation for further recommendation. He will follow up with his PCP, urology, and discharge plan of care as directed. CM will coordinate RCT transport home when Brenden is ready for discharge. CM will continue to follow.
[2020-09-13 04:42] VITALS: BP 120/68; PULSE 80; RESP 18; TEMP 36.4; O2SAT 97
[2020-09-13] MEDS: Pantoprazole 40 MG TABCR PO (06:26)
[2020-09-13] MEDS: Levothyroxine 75 MCG TAB PO (06:26)
--- NOTE | 2020-09-13 07:13 | W.PM.PROGNOT ---
Date of Service Date of service: 09/13/20 Time of Service: 07:13 Assessment and Plan Assessment and plan (1) Hematuria: Status: Acute Assessment and plan: His hematuria has resolved and in fact has not returned in spite of his catheter changed yesterday. I think it should be safe to restart any anticoagulants in this gentleman assuming that our general surgeon colleagues do not plan on doing any inguinal hernia repairs in the near future. Qualifiers: Hematuria type: gross Qualified Code(s): R31.0 - Gross hematuria Subjective Subjective Interval history since last seen: Patient has no new complaints this morning. His catheter has continued to drain well with no clots. Exam Narrative Exam Narrative: He does not appear septic or toxic His vital signs are documented elsewhere His suprapubic tube is intact and is draining clear urine He is awake and alert Objective Last Vital Signs Temp 36.4 C L 09/13/20 04:42 Pulse 80 09/13/20 04:42 Resp 18 09/13/20 04:42 BP 120/68 09/13/20 04:42 Pulse Ox 97 09/13/20 04:42 Laboratory Results - last 24 hr 09/12/20 10:09 Sodium 139 Potassium 4.1 Chloride 106 Carbon Dioxide 24.5 Anion Gap 8.5 BUN 14 Creatinine 1.3 Estimated GFR/1.73 m2 52.59 Glucose 106 Calcium 8.4 L
[2020-09-13 08:07] VITALS: BP 127/66; PULSE 71; RESP 21; TEMP 36.3; O2SAT 92
[2020-09-13] MEDS: Tiotropium Bromide-Respimat 10 PUFF INH IH (08:13)
[2020-09-13] MEDS: Mometasone 220 MCG 14 DOSE INHALER 2 PUFF IH (08:14)
[2020-09-13] MEDS: Mirabegron 50 MG TABCR PO (09:18)
[2020-09-13] MEDS: Potassium Chloride 20 MEQ TABCR PO (09:18)
[2020-09-13] MEDS: Docusate Sodium 100 MG CAP 200 MG PO (09:18)
[2020-09-13] MEDS: Oxybutynin-CR 5 MG TABCR PO (09:18)
[2020-09-13] MEDS: Furosemide 20 MG TAB PO (09:18)
[2020-09-13] MEDS: LORazepam 0.5 MG TAB PO ×2 (09:18→14:27)
[2020-09-13] MEDS: Metoprolol 50 MG TAB 75 MG PO (09:19)
[2020-09-13] MEDS: Senna TAB 1 TAB PO (09:19)
--- NOTE | 2020-09-13 15:26 | PT.INTREAT ---
Date of service: 09/13/20 Time of Service: 14:50 PT Notes Visit Reasons: BLADDER HEMATOMA, GROSS HEMATURIA Inpatient Physical Therapy Treatment Note [facility] Date: 09/13/2020 PRECAUTIONS: Fall SUBJECTIVE: Brenden is agreeable to participating in PT, although indicates that he cannot wait to be discharged to home. OBJECTIVE: PAIN: No complaints of pain BED MOBILITY/TRANSFERS Sit-stand: SBA in a.m.; S in p.m. Stand-sit: SBA in a.m.; S in p.m. Bed-Chair: SBA in a.m.; S in p.m. Chair-bed: SBA in a.m.; S in p.m. GAIT Assistive Device: FWW Weight bearing: Full Assist: SBA in a.m.; S in p.m. Distance: 80' x2 in a.m.; 150' in p.m. Deviation: Mild SOB in a.m. and p.m.; Seated rest in a.m. STAIRS: Up/down 3x4 and 2x6 using B rails and a step to pattern with SBA ASSESSMENT: Patient tolerated session well without complaint of groin pain. He complained of mild SOB with gait training in both a.m. and p.m. He was able to tolerate a progression in gait distance FWW support and supervision. PLAN: Continue with gait and transfer training as well as global strengthening for improved activity tolerance TREATMENT CODE/TIME: Session 1: 25 minutes; 30335 x2 (10:30) Session 2: 15 minutes; [id number] (14:50)
[2020-09-13 15:42] VITALS: BP 119/75; PULSE 62; RESP 20; TEMP 36.8; O2SAT 91
--- NOTE | 2020-09-13 16:48 | W.PM.DS.N ---
Date of service: 09/13/20 Time of Service: 16:48 DS: Diagnosis Discharge Diagnosis (1) Hematuria: Status: Resolved Asessment and Plan: Treated with continuous bladder irrigation and by withholding his Pradaxa throughout his hospital course. CBI was changed over to a regular suprapubic catheter the day prior to discharge with no further hematuria. Pradaxa to be held through the weekend and restarted on WednesdaySeptember 16, 2020. (2) Anemia associated with acute blood loss: Status: Acute Asessment and Plan: Hemoglobin on admission was 13.4 g hematocrit 41% his blood count remained relatively stable throughout his hospital course in spite of hematuria. Blood counts at the time of discharge include a hemoglobin of 12.9 g hematocrit 40%. Repeat blood count to be done in 1 week. (3) Bilateral hydrocele: Status: Acute Asessment and Plan: Patient was not deemed to be a safe operative candidate therefore no surgical approach was taken. (4) Inguinal hernia, right: Status: Acute Asessment and Plan: Patient was found to have incarcerated fat in the right hernia but no incarcerated bowel and therefore no surgical approach was taken. (5) Discharge planning issues: Status: Resolved Asessment and Plan: patient will be discharged home w/ home health services to include physical therapy, occupational therapy, medical donation professional, and nursing (6) Abdominal pain: Status: Resolved Asessment and Plan: Abdominal pain was felt to be secondary to incarcerated fat hernia and resolved. He does have other chronic abdominal pain secondary to constipation and bladder spasms. (7) Paroxysmal atrial fibrillation: Status: Chronic Asessment and Plan: Patient was kept on his metoprolol during his hospital stay to control his atrial fibrillation rate. Pradaxa was held while he was actively bleeding but should be restarted on WednesdaySeptember 16, 2020 provided he has no further bleeding complications. (8) COPD (chronic obstructive pulmonary disease): Status: Chronic (9) Chronic anticoagulation: Status: Chronic (10) Spinal stenosis: Status: Chronic (11) Chronic kidney disease (CKD): Status: Chronic Asessment and Plan: Repeat BMP to be done in 1 week to assess stability of his electrolytes and renal function. (12) Diastolic heart failure: Status: Chronic Asessment and Plan: Patient had no exacerbation of his heart failure during his hospital stay in spite of requiring IV fluids. Diuretics were resumed prior to discharge. Repeat BMP to be done in a week to assess stability of electrolytes and renal function. Discharge Plan Disposition Patient Disposition: HOME W/HOME HEALTH SERVICE Condition: Stable Discharge Details Reason For Visit: BLADDER HEMATOMA, GROSS HEMATURIA Admit Date/Time: 09/07/20 22:12 Admit Provider: Cristobal Raya Attending Provider: Cristobal Raya Primary Care Provider: Lorena Chong Hospital Course Hospital Course: This 85-year-old male presented with abdominal pain, scrotal tenderness not associated with fever or rigors duration about 4 days associated with hematuria and constipation was admitted to the hospital service with urologic consultation with Dr. Hendricks. Onset of hematuria began after recent suprapubic catheter change. Patient's comorbidities include suprapubic catheter for chronic obstructive uropathy, COPD, atrial fibrillation, DVT, pacemaker. Urine culture was obtained and continuous bladder irrigation was started and the patient was started on Ditropan. CT of the abdomen pelvis showed hematoma versus a bladder mass. Patient was given a dose of Keflex in the emergency department but no further antibiotics were prescribed. Prior urinary culture grew Enterobacter aerogenes in early August 2020. Dr. Hendricks was consulted on September 09, 2020. See his note for details. He felt that with the sudden onset of the hematuria that the so-called mass in his bladder most likely was a clot rather than a tumor. He recommend use of continuous bladder irrigation until his urine cleared. He felt that if he continued having hematuria despite the CBI that he may need a cystoscopy for evacuation of the clot but felt that because of patient's comorbidities that our anesthesia department would not consider him a safe candidate to have this procedure at our facility. Dr. Hendricks also added Myrbetriq to the patient's antibladder spasm medications. Eventually the hematuria did clear up and then CBI was discontinued and the patient's suprapubic catheter was changed again to a regular suprapubic catheter. Patient developed severe constipation but responded to stool softeners and laxatives and enemas. In spite of the anticholinergic medications for his bladder spasm and treatment of his constipation the patient developed excruciating right inguinal pain on September 12, [address] scan of his abdomen and pelvis looking for for signs of ischemic bowel or obstruction. This demonstrated bilateral inguinal hernias which she had a known history for but now had a small amount of fluid within the right inguinal hernia sac that had not been present on prior exam on CT scan from September 07, 2020 when he was admitted. Consideration was given for possible strangulation of herniated fat. The hernia did not contain any bowel loops. General surgical consult had been obtained on September 09, [address] Aaron colón. At that time he felt the based on the admission CT scan and normal blood lactate level that the patient probably had not experienced a acute vascular event such as ischemic bowel. He felt that the spastic pain was a complication of suprapubic catheter along with his constipation. However when the patient's pain became exquisite on September 11, 2020 that is when the second CAT scan was obtained in surgery was reconsulted. Dr. David Steiner saw the patient and felt that the patient's acute hernia was associated with straining of his bowel movement causing strangulation of fat within the hernia the because there was no bowel within the hernia and did not require immediate surgical repair. She recommended ice alternating with heat and ibuprofen for the pain. Because of the patient's hematuria and marginal renal function NSAIDs were not used but he was given narcotic analgesics which helped the pain subside. Over the next couple days his pain did improve and the patient was tolerating a regular diet. His hematuria did not recur in spite of having had his catheter changed back to a regular suprapubic catheter the day prior to discharge. I discussed with Dr. Hendricks the timing for restarting his anticoagulation it was felt it would be reasonable to hold it through the weekend and restart his Pradaxa on Wednesday morning as long as there was no further bleeding issues. Patient was discharged in improved condition with his pain well controlled and tolerating a regular diet. Patient is to call on Wednesday for a follow-up appointment with both Dr. Hendricks as well as with Dr. David Steiner. He is to have the following blood work in 1 week a BMP and a CBC to assess the stability of his anemia as well as the stability of his renal function. Home Meds and New Rx's Prescriptions: New tramadol 50 mg tablet See Rx Instructions .ROUTE .COMPLEX PRNQty: 30 RF: 0 Continued nitroglycerin [Nitrostat] 0.4 MG tablet, sublingual 0.4 mg Sublingual Q5 MIN PRN X3 PRNQty: 60 RF: 0 potassium chloride [Klor-Con M20] 20 MEQ tablet,ER particles/crystals 20 meq PO DAILY AM Qty: 30 RF: 0 acetaminophen [Tylenol] 325 MG tablet 650 mg PO Q4H PRN PRNRF: 0 mirtazapine [Remeron] 15 MG tablet 15 mg PO HS RF: 0 levothyroxine 75 MCG tablet 75 mcg PO DAILY@0600 RF: 0 cholecalciferol (vitamin D3) 1,000 UNITS tablet 1 tab PO DAILY RF: 0 bisacodyl 10 MG suppository 10 mg SD DAILY PRNRF: 0 Fluticasone Propionate [24 Hour Allergy] 9.9 ML [place].Susp 9.9 ml NS BID RF: 0 lorazepam [Ativan] 0.5 mg Tablet 0.5 mg PO TID RF: 0 lactulose 10 gram/15 mL Solution 10 g PO DAILY PRN (Reason: Constipation) RF: 0 latanoprost 0.005 % Drops 1 drp ophthalmic (eye) HS RF: 0 Azopt 1 % Drops,Suspension 1 drp ophthalmic (eye) DAILY RF: 0 magnesium hydroxide 400 mg/5 mL Suspension 30 ml PO DAILY PRNRF: 0 albuterol sulfate [Ventolin HFA] 90 mcg/actuation Hfa Aerosol Inhaler 2 puff INHALATION QID PRN PRNRF: 0 Spiriva with HandiHaler 18 mcg capsule, w/inhalation device 1 cap INHALATION DAILY RF: 0 pantoprazole 40 MG tablet,delayed release (DR/EC) 40 mg PO DAILY RF: 0 metoprolol tartrate 50 MG tablet 75 mg PO BID RF: 0 Flovent HFA 120 PUFF HFA aerosol inhaler 2 puff Inhalation DAILY RF: 0 ropinirole 1 mg tablet 1 mg PO HS RF: 0 Pradaxa 150 mg capsule 150 mg PO BID RF: 0 oxybutynin chloride [Ditropan XL] 5 mg tablet extended release 24hr 5 mg PO DAILY Qty: 10 RF: 0 furosemide 20 MG tablet 40 mg PO DAILY RF: 0 albuterol sulfate 2.5 MG/3 ML solution for nebulization 3 ml IN Q4H PRN PRNRF: 0 sennosides [senna] 8.6 mg Tablet 8.6 mg PO HS RF: 0 docusate sodium [Colace] 100 mg Capsule 100 mg PO BID RF: 0 ondansetron 4 mg Tablet,Disintegrating 4 mg PO QID PRNRF: 0 ursodiol 250 mg tablet 250 mg PO BID RF: 0 multivitamin [Tab-A-Raghu] Tablet 1 tab PO DAILY RF: 0 Myrbetriq 50 mg Tablet Extended Release 24 Hr 50 mg PO DAILY Qty: 30 RF: 1 Discontinued morphine 100 mg/5 mL Concentrate 0.5 mg PO TID PRNRF: 0 oxycodone 5 mg Tablet 5 mg PO TID PRNRF: 0 Discharge Instructions Instructions: Inguinal Hernia (DC), Suprapubic Cystostomy (DC) Additional Instructions: get follow up labs in one week (BMP and CBC). Hold Pradaxa through the , then begin Pradaxa on Wednesday morning Stand Alone Forms: Nursing Discharge Form Referrals: David Hendricks MD [ [facility] STAFF PHYSICIAN] - (please call Wednesday to make an appointment) Cony Steiner MD [ [facility] STAFF PHYSICIAN] - (please call wednesday to make an appointment.) Activity:: Activity as Tolerated Equipment/Supplies:: No Equipment Needed Diet:: Low Sodium Discharge Orders Discharge Orders: Discharge Order (Routine); Ordered 09/13/20 Ordered By: Ben Rodriguez Other Ambulatory Orders: Basic Metabolic Panel (Routine) Timeframe: 1 Week Facility: [facility] - Location: Laboratory Outpatient Ordered By: Ben Rodriguez Complete Blood Count w/Diff (Routine) Timeframe: 1 Week Facility: [facility] - Location: Laboratory Outpatient Ordered By: Ben Rodriguez Discharge Data Discharge Date/Time-TO BE ENTERED AT DEPARTURE: 09/13/20 17:49 DS: Summary Time Spent with Patient providing and/or coordinating discharge services: Greater than 30 minutes Status at Discharge Functional status at discharge: uses cane/walker Overall status at discharge: patient is progressing back to baseline Mental Status: mental status grossly normal Speech and Movement: speech and movement normal Mood: congruent mood Affect: normal affect Exam Narrative Exam Narrative: Elderly male sitting up in his chair napping. I awakened him. He denies any shortness of breath or chest discomfort. He states his abdominal pain and groin pain are markedly better but still some mild tenderness. Lungs with bibasilar rales Heart is irregular Abdomen soft no guarding no rebound tenderness. Suprapubic catheter is in place draining clear yellow urine. Scrotum edema has decreased, still some mild tenderness. Psych Mental Status: mental status grossly normal Speech and Movement: speech and movement normal Mood: congruent mood Affect: normal affect DS: Data Vitals/I&O Vitals and I&O: Vital Signs Temperature 36.8 C 09/13/20 15:42 Temperature Source Tympanic 09/13/20 15:42 Pulse 62 09/13/20 15:42 Pulse Rhythm Irregular 09/13/20 13:46 Pulse 113 H 09/07/20 23:31 Respiratory Rate 20 09/13/20 15:42 Respiratory Effort 09/13/20 13:46 Respiratory Depth Normal 09/13/20 13:46 Respiratory Pattern Normal 09/13/20 13:46 Blood Pressure 119/75 09/13/20 15:42 Blood Pressure Mean 71 09/07/20 23:35 Blood Pressure Position Supine 09/07/20 19:04 Pulse Oximetry 91 L 09/13/20 15:42 Oxygen Delivery Method Room Air 09/13/20 15:42 Oxygen Flow Rate 0 09/13/20 15:42 Pain Level 0 09/13/20 15:42 Intake & Output 09/12/20 09/13/20 09/13/20 23:59 11:59 23:59 Output Total 550 / 1974 750 / 1325 575 / 1325 Balance -550 / -1585 -750 / -1325 -575 / -1325 Output: Urine 550 / 1974 750 / 1325 575 / 1325 Other: Urine Color Yellow Light [place] Dark [place] Urine Appearance Cloudy Cloudy Cloudy Comment new catheter is draining, insertion site is dry Stool Size Moderate Small Stool Characteristics Soft Soft PFSH Medical History (Updated 09/16/20 @ 07:55 by Ben Rodriguez) Anxiety Atrial fibrillation Bilateral hydrocele BPH (benign prostatic hyperplasia) Chronic kidney disease (CKD) Chronic obstructive lung disease Diverticulosis of large intestine without diverticulitis Essential hypertension GERD (gastroesophageal reflux disease) Glaucoma Insomnia Polyp of colon Spinal stenosis of lumbar region Tachycardia-bradycardia Surgical History Colonoscopy - MAC Pacemaker S/P TURP Social History Smoking/Tobacco Use Status: Former Tobacco Use Smoking risk assessment performed?: Yes Alcohol Intake: former Drug use: Never Substance use type: does not use Do you feel safe at home: Yes Do you feel safe in your relationship?: Yes
--- NOTE | 2020-09-13 16:53 | PDOC.HHF2F_ITS ---
Home Health Certification Home Health Certification: 1. Encounter Date and Reason I certify that PRICILA ETIENNE was seen by Ben Rodriguez on 09/13/20 and that I had a [id number] encounter with this patient that meets the physician face to face encounter requirements. 2. Clinical Findings Supporting Skilled Need and Homebound Status I certify that home health services are medically necessary, include either intermittent jail and/or physical/speech therapy, and that this patient is homebound in that absences from the home require considerable and taxing effort and are infrequent or of short duration, or are attributable to the need to receive medical care. [X] (a) Attached documentation from encounter provides clinical findings supporting skilled need and homebound status (including what assistance patient requires to leave the home). The encounter with the patient was in whole, or in part, for the following medical condition, which is the primary reason for home health care: BLADDER HEMATOMA, GROSS HEMATURIA Half-Way: Nursing to assist the patient with the patient medication management, pain control, management of suprapubic Kang, obtaining follow-up labs, coordinating care with the patient's providers. Physical Therapy: Physical therapy and Occupational Therapy to evaluate and treat the patient regarding generalized deconditioning and general weakness and ambulatory dysfunction. Speech Therapy: Homebound: Patient is homebound due to generalized weakness precipitated by his acute illness leading to hospitalization which makes it unsafe for the patient to seek medical care outside his home due to increased risk of falls. 3. Certification and Authentication I certify that I composed the above information based on my clinical judgement relating to this patient's medical condition and, if applicable, clinical findings communicated to me by the NPP or inpatient physician who performed the Home Health Referral. All further orders will be obtained through _ Lorena Chong (Community Based Physician - PCP)
[2020-09-13] MEDS: Albuterol HFA 18 GM 200 PUFF INH IH (17:34)
--- NOTE | 2020-09-13 19:54 | CMDISCH_ITS ---
LACE Index Scoring Tool - Questions: Length of Stay (in days): 4 - 6 Acuity (Admit via E.D.?): Yes Comorbidities: Liver or Renal Disease E.D. Visits: 7 - Answers: Total Score: 16 Risk of Readmission: High Risk Care Management Discharge Reason for Hospitalization: Bladder hematoma, gross hematuria. Discharge Plan: Dino will discharge home with a resumption of CFC and VNA services when medically cleared by provider. He will follow up with his PCP, urology, and discharge plan of care as directed. He will transport via [employer] private vehicle, coordinated by this specifications writer. Patient/Family Education Needs: Review discharge instructions, discuss Ask Me Three. Services Needed at Discharge: Home Health Care Services (Resumption, add RN/PT/OT), Transportation ([facility]CT private vehicle )
--- NOTE | 2020-09-17 16:21 | PT.INDS ---
Date of service: 09/17/20 Time of Service: 16:21 PT Notes Visit Reasons: BLADDER HEMATOMA, GROSS HEMATURIA Physical Therapy Inpatient Discharge Summary Date: 09/17/2020 Date of service: 09/11/2020 through 09/13/2020 This is a clinical summary of care provided on the duration of dates listed above. No charge was made in the completion of this documentation. Referring Doctor: Ben Rodriguez MD PT Orders: PT CONSULT: Extended stay weakness Precautions: Fall. Standard. Activity as tolerated. Patient Profile/Admitting Diagnosis: Patient is an 85-year-old male with past medical history significant for COPD, diastolic heart failure, and hypothyroidism who presented to the ED on 09/07/2020 with chief complaints of persistent blood in urine and abdominal as well as scrotal pain and tenderness. Patient is diagnosed with hematuria, bladder spasm, and paroxysmal atrial fibrillation. PMHX: Medical History (Updated 09/08/20 @ 04:34 by Cristobal Raya MD) Anxiety Atrial fibrillation BPH (benign prostatic hyperplasia) Chronic kidney disease (CKD) Chronic obstructive lung disease Diverticulosis of large intestine without diverticulitis Essential hypertension GERD (gastroesophageal reflux disease) Glaucoma Insomnia Polyp of colon Spinal stenosis of lumbar region Tachycardia-bradycardia Surgical History Colonoscopy - MAC Pacemaker S/P TURP Social History/Home Situation: Lives alone in a private home with 6 steps to enter and rails on B sides. Has neighbors who he says are available to help as needed. Modified independent indoors and outdoors using his 4WW. Equipment Owned/DME: 4WW, FWW Subjective: NT. See most recent FAT PURIFICATION WORKER notes. Objective: General Observation: NT. See most recent FAT PURIFICATION WORKER notes. Mental Status: NT. See most recent FAT PURIFICATION WORKER notes. Pain: NT. See most recent FAT PURIFICATION WORKER notes. ROM: Right Upper Extremity: Unable to lift R shoulder beyond 90 degrees due to pain and anxiety. Elbow flexion WFL. Wrist flexion WFL. Opening and closing of hand WFL. Left Upper Extremity: Shoulder Flexion WFL. Shoulder abduction WFL. Elbow flexion WFL. Wrist flexion WFL. Opening and closing of hand WFL. Right Lower Extremity: Hip flexion WFL. Hip abduction WFL. Knee flexion WFL. Ankle dorsiflexion WFL. Ankle plantarflexion WFL. Left Lower Extremity: Hip flexion WFL. Hip abduction WFL. Knee flexion WFL. Ankle dorsiflexion WFL. Ankle plantarflexion WFL. Strength: Right Upper Extremity: Shoulder flexors 3-/5. Shoulder abductors 3-/5. Elbow flexors 4-/5. Elbow extensors 4-/5. Tourist Camp Attendant strong. Left Upper Extremity: Shoulder flexors 4-/5. Shoulder abductors 4-/5. Elbow flexors 4-/5. Elbow extensors 4-/5. Tourist Camp Attendant strong. Right Lower Extremity: Hip flexors 4-/5. Hip abductors 4-/5. Knee flexors 4-/5. Knee extensors 4-/5. Ankle dorsiflexors 4-/5. Ankle plantarflexors 4-/5. Left Lower Extremity: Hip flexors 4-/5. Hip abductors 4-/5. Knee flexors 4-/5. Knee extensors 3+/5. Ankle dorsiflexors 4-/5. Ankle plantarflexors 4-/5. Sensation: Intact as to pain and pressure on bilateral lower extremities. Bed Mobility/Transfers: Sit to stand supervision Stand to sit supervision Bed to chair supervision Chair to bed supervision Gait: Guided patient through level surface ambulation of 150 feet using the FWW. Step-through heel-toe gait pattern. No buckling of L knee. Age-related reduction in jose. Denies headache, dizziness, chest pain. Balance: Static Sitting: Normal Dynamic Sitting: Normal Static Standing: Fair Dynamic Standing: Fair Assessment: Mobility performance continues to be limited by pain and shortness of breath. Dino demonstrates the need for an assistive ambulatory device for all mobility ADL performance to maximize independence and reduce fall risk at home, decreased activity tolerance due to pain in R shoulder, and balance impairment. Patient will benefit from jail facility placement for continued skilled physical therapy services in order to progress mobility level, strength, and balance in preparation for a safe discharge to home. Patient continues to present with clinical signs and symptoms consistent with current/admitting diagnoses that have resulted to mobility limitations, gait instability, generalized weakness, and impairment of motor control as demonstrated by the following impairment level findings: 1. Decreased strength to R UE/R LE major muscle groups 2. Impaired standing balance 3. Impaired activity tolerance 4. Limitation of joint range of motion in R shoulder 5. Pain in r lower abdominal quadrant 6. SOB with ambulation Impairments are continuing to contribute to the following functional limitations: 1. Inability to safely ambulate without assistive device 2. Increase completion time for mobility ADL performance 3. Increased fall risk 4. Inability to negotiate steps alone safely Goals: Goals X1 week 1. Supine-Sit independent NOT MET 2. Sit-Supine independent NOT MET 3. Sit-Stand independent NOT MET 4. Stand-Sit independent NOT MET 5. Bed-Chair independent NOT MET 6. Chair-Bed independent NOT MET 7. Independent gait on level surface with use of least restrictive device for at least 300 feet without report of pain nor dyspnea NOT MET 8. Independent stair negotiation while holding onto bilateral rails for at least 10 steps without report of pain nor dyspnea NOT MET 9. Independent with home exercise program NOT MET 10. Good static and dynamic standing balance/tolerance NOT MET DISCHARGE RECOMMENDATIONS: Patient will benefit from jail facility placement for continued skilled physical therapy services in order to progress mobility level, strength, and balance in preparation for a safe discharge to home. TREATMENT CODE/TIME: HI Thank you for the opportunity to participate in the care of this patient. Elsa Menchaca PT, DPT, CLT [facility] [place], [place]
== END 2020-09-13 17:49 | disposition home health service (06) | DRG 696 ==
LOC: ER 22:21 → MS 23:15
PROVIDERS: Internal Medicine; Admitting Provider Family Medicine; Emergency Provider Physician Assistant; PCP Family Medicine; Visit Provider Family Medicine
DX: R31.0 Gross hematuria (principal); I13.0 Hypertensive heart and chronic kidney disease with heart failure and stage 1 through stage 4 chronic kidney disease, or unspecified chronic kidney disease; I50.32 Chronic diastolic (congestive) heart failure; K40.30 Unilateral inguinal hernia, with obstruction, without gangrene, not specified as recurrent; I48.0 Paroxysmal atrial fibrillation; K59.09 Other constipation; Z87.891 Personal history of nicotine dependence; J44.9 Chronic obstructive pulmonary disease, unspecified; Z95.0 Presence of cardiac pacemaker; N32.89 Other specified disorders of bladder; N18.9 Chronic kidney disease, unspecified; N40.1 Benign prostatic hyperplasia with lower urinary tract symptoms; R33.9 Retention of urine, unspecified; E03.9 Hypothyroidism, unspecified; Z86.718 Personal history of other venous thrombosis and embolism; F41.9 Anxiety disorder, unspecified; K57.30 Diverticulosis of large intestine without perforation or abscess without bleeding; K21.9 Gastro-esophageal reflux disease without esophagitis; H40.9 Unspecified glaucoma; M48.061 Spinal stenosis, lumbar region without neurogenic claudication; Z93.51 Cutaneous-vesicostomy status; N43.3 Hydrocele, unspecified; N44.2 Benign cyst of testis; D50.0 Iron deficiency anemia secondary to blood loss (chronic)
CPT/HCPCS: 51705; 36415; 51702; 76770; 80048; 80053; 83690; 84145; 87077; 87637; 93005; 94640; 96374; 96376; 97162; 97530; 99221; 99222; 99232; 99233; 99239; 99252; 99253; 99254; 99285; 73660; 74019; 74177; 76870; 83605; 84443; 85025; 85610; 86140; 87086; 87186; 93010; 99284; J2060; J2270; J3010; J3490

== ENCOUNTER 2020-09-19 11:20 | Outpatient (REF) | payer MEDICARE, MEDICAID, SELFPAY ==
[2020-09-19 13:27] LABS: HCT 42.4 % (40.0-50.0); HGB 13.4 g/dL (13.5-17.5); MCHC 31.6 % (32.0-36.0); MCV 95.1 fL (80-95); MPV 9.9 fL (8.0-11.0); Platelet Count 228 10^3/uL (130-400); RBC 4.46 10^6/uL (4.36-5.78); RDW 15.7 % (11.8-14.1); RDW-SD 55.4 fL; WBC 6.07 10^3/uL (4.4-10.8)
[2020-09-19 13:38] LABS: Anion Gap 4.8 mmol/L (3-11); BUN 19 mg/dL (7-18); CO2 31.2 mmol/L (21.0-32.0); CREATININE 1.5 mg/dL (0.70-1.30); Calcium 8.8 mg/dL (8.5-10.1); Chloride 106 mmol/L (98-107); Estimated GFR 44.59 (mL/min/1.73m2); Glucose 86 mg/dL (74-106); Potassium 4.2 mmol/L (3.5-5.1); Sodium 142 mmol/L (136-145)
== END 2020-09-19 11:21 | disposition home or self-care (01) ==
LOC: NCHCN 11:20
PROVIDERS: PCP Family Medicine; Visit Provider Family Medicine
DX: R31.9 Hematuria, unspecified (principal)
CPT/HCPCS: 80048; 85027

== ENCOUNTER → 2020-09-24 13:03 | Outpatient (BNVA) | payer MEDICARE, MEDICAID, SELFPAY | PROVIDERS: PCP Family Medicine; Referring Provider Family Medicine; Visit Provider Surgery | DX: K40.90 Unilateral inguinal hernia, without obstruction or gangrene, not specified as recurrent (principal); J44.9 Chronic obstructive pulmonary disease, unspecified | CPT/HCPCS: 99212; 99213 ==

== ENCOUNTER → 2020-10-23 10:10 | Outpatient (BNVA) | payer MEDICARE, MEDICAID, SELFPAY | PROVIDERS: PCP Family Medicine; Referring Provider Family Medicine; Visit Provider Urology | DX: R31.0 Gross hematuria (principal); Z93.59 Other cystostomy status | CPT/HCPCS: 99213 ==

== ENCOUNTER 2020-11-04 15:04 | Emergency (ER) | payer MEDICARE, MEDICAID, SELFPAY ==
[2020-11-04] VITALS (20 sets, daily range): BP systolic 99–123; BP diastolic 52–79; PULSE 67–149; RESP 14–23; TEMP 36.6; O2SAT 95–100
--- NOTE | 2020-11-04 15:00 | RT.EKG_ITS ---
APPROVED REPORT Exam: Resting ECG Reason for Exam: chest pain Patient Location: E HR:96 bpm ECG Measurements Heart Rate 96 AXIS NM [id number] P [id number] QRSd 128 QRS 79 QT 425 T -47 QTc 538 Conclusion Atrial fibrillation...? atrial activity Nonspecific intraventricular conduction delay...QRSd >115mS, not LBBB/RBBB Anterior infarct, old...Q >40mS, abnormal ST-T, V2-V5 afib no st elevation Nonspecific repol abnormality, diffuse leads...ST dep, T flat/neg, ant/lat/inf
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
--- NOTE | 2020-11-04 15:32 | W.ED.GENAD ---
Discharge Plan Disposition Patient Disposition: AGAINST MEDICAL ADVICE Condition: Stable Discharge Details Clinical Impression: Chest pain Primary Care Provider: Lorena Chong ED Provider: Geovany Valencia Home Meds and New Rx's Prescriptions: Continued potassium chloride [Klor-Con M20] 20 MEQ tablet,ER particles/crystals 20 meq PO DAILY AM Qty: 30 RF: 0 acetaminophen [Tylenol] 325 MG tablet 650 mg PO Q4H PRN PRNRF: 0 mirtazapine [Remeron] 15 MG tablet 15 mg PO HS RF: 0 levothyroxine 75 MCG tablet 75 mcg PO DAILY@0600 RF: 0 cholecalciferol (vitamin D3) 1,000 UNITS tablet 1 tab PO DAILY RF: 0 bisacodyl 10 MG suppository 10 mg MS DAILY PRNRF: 0 Fluticasone Propionate [24 Hour Allergy] 9.9 ML [place].Susp 9.9 ml NS BID RF: 0 lorazepam [Ativan] 0.5 mg Tablet 0.5 mg PO TID RF: 0 lactulose 10 gram/15 mL Solution 10 g PO DAILY PRN (Reason: Constipation) RF: 0 latanoprost 0.005 % Drops 1 drp ophthalmic (eye) HS RF: 0 Azopt 1 % Drops,Suspension 1 drp ophthalmic (eye) DAILY RF: 0 magnesium hydroxide 400 mg/5 mL Suspension 30 ml PO DAILY PRNRF: 0 albuterol sulfate [Ventolin HFA] 90 mcg/actuation Hfa Aerosol Inhaler 2 puff INHALATION QID PRN PRNRF: 0 Spiriva with HandiHaler 18 mcg capsule, w/inhalation device 1 cap INHALATION DAILY RF: 0 pantoprazole 40 MG tablet,delayed release (DR/EC) 40 mg PO DAILY RF: 0 metoprolol tartrate 50 MG tablet 75 mg PO BID RF: 0 Flovent HFA 120 PUFF HFA aerosol inhaler 2 puff Inhalation DAILY RF: 0 ropinirole 1 mg tablet 1 mg PO HS RF: 0 Pradaxa 150 mg capsule 150 mg PO BID RF: 0 oxybutynin chloride [Ditropan XL] 5 mg tablet extended release 24hr 5 mg PO DAILY Qty: 10 RF: 0 furosemide 20 MG tablet 40 mg PO DAILY RF: 0 albuterol sulfate 2.5 MG/3 ML solution for nebulization 3 ml IN Q4H PRN PRNRF: 0 sennosides [senna] 8.6 mg Tablet 8.6 mg PO HS RF: 0 docusate sodium [Colace] 100 mg Capsule 100 mg PO BID RF: 0 ondansetron 4 mg Tablet,Disintegrating 4 mg PO QID PRNRF: 0 ursodiol 250 mg tablet 250 mg PO BID RF: 0 multivitamin [Tab-A-Raghu] Tablet 1 tab PO DAILY RF: 0 tramadol 50 mg tablet See Rx Instructions .ROUTE .COMPLEX PRNQty: 30 RF: 0 Myrbetriq 50 mg Tablet Extended Release 24 Hr 50 mg PO DAILY Qty: 30 RF: 1 Discharge Instructions Additional Instructions: Your blood work did not show evidence of a heart attack and your xray did not show any concerning findings in the lung follow up with your primary care provider as soon as possible if you feel you are more ill, have fevers or difficulty breathing and would like further testing return to the emergency department Medical Decision Making 85 yo male with multiple medical problems comes in with ems with chest pain that started earlier this afternoon. He denies any falls or trauma. He localizes the pain to the left lateral chest and denies cough or fevers. He can't think of anything that makes it better or worse, doesn't have any noticed increase in pain with exertion. He has no rash of the chest wall, is tender when the left lateral chest in lateral clavicular line is palpated. No abdomen tenderness, no diaphoresis and no reported radiation of pain. Nitro with ems and at home did not help. Pain could be chest wall pain vs chronic pain that he suffers from but given his age and risk factors will obtain troponin. No hypoxia or tachycardia to suggest PE. No tearing back pain and normal vascular exam so doubt dissection. On chart review he is dnr/dni which he confirms. He recently met with palliative care and they wrote that his biggest goal is to be comfortable and would prefer to stay at home. He is not sure how much interventions he would want at this time but would like lab work done and is also accepting to having a chest xray. Will reassess after initial labs and readdress his wishes on how much intervention he would like to pursue if needed. pt remains stable pain now a 2/10 and increased when I palpate same area of chest on left lateral portion. Unremarkable labs and cxr for significant acute pathology. I recommended admission for observation. He has capacity to make his own decisions and declines admission at this time as he would not want any further testing or workup at this time and would not want any interventions. He is leaving against my medical advice. He understands risks of going home including and permanent disability and accepts these risks and states when his time comes he's ready to pass. He understands that if he changes his mind he can always return and he will follow up with his pcp keri. Will provide him with lidocaine patch to see if this helps his pain prior to discharge Differential Diagnosis Differential Diagnosis: nstemi, chronic pain, pneumonia Medical Records Medical records reviewed: Yes I reviewed the patient's medical records. Imaging Data Radiologic Study: Attestation: I personally reviewed and interpreted this imaging study as follows: Radiologist's impression: IMPRESSION: Right pacemaker. Atherosclerosis. Small round metallic structures overlying the left shoulder region, stable. Degenerative changes in the spine Lab Data Lab results reviewed: Yes I reviewed the patient's lab results. ECG Data Attestation: I personally reviewed and interpreted this ECG (s) as follows: Prior ECG tracings: available for review Interpretation: afib, rate of 96, qtc 538, no st elevation HPI General Mode of arrival: EMS. Date/Time Provider Initiated Documentation: 11/04/20 15:09. Limitations to Documentation: no limitations. Information obtained by: patient. History of Present Illness 85 year old M presents to the emergency department with the chief complaint of chest pain, described as moderate, Quality is described as aching, and is localized to the chest. Patient reports no radiation. and it has been constant. No relieving factors improve symptom(s), No exacerbating factors reported . Patient notes no other symptoms.. Related Data Home Medications Medication Instructions Recorded Confirmed potassium chloride [Klor-Con M20] 20 meq PO DAILY AM #30 tabcr 07/18/15 09/07/20 acetaminophen [Tylenol] 650 mg PO Q4H PRN PRN tab 11/25/15 09/07/20 mirtazapine [Remeron] 15 mg PO HS 03/04/16 09/07/20 levothyroxine 75 mcg PO DAILY@0600 tab 04/13/16 09/07/20 furosemide 40 mg PO DAILY 10/22/16 09/07/20 cholecalciferol (vitamin D3) 1 tab PO DAILY 08/01/17 09/06/20 albuterol sulfate 3 ml IN Q4H PRN PRN 10/22/17 09/07/20 Fluticasone Propionate [24 Hour 9.9 ml NS BID 12/30/17 09/07/20 Allergy] bisacodyl 10 mg MS DAILY PRN 12/30/17 09/07/20 lactulose 10 g PO DAILY PRN 10/29/18 09/07/20 lorazepam [Ativan] 0.5 mg PO TID 10/29/18 09/07/20 docusate sodium [Colace] 100 mg PO BID 11/30/18 09/07/20 ondansetron 4 mg PO QID PRN 11/30/18 09/06/20 sennosides [senna] 8.6 mg PO HS 11/30/18 09/07/20 ursodiol 250 mg PO BID 03/16/20 09/07/20 multivitamin [Tab-A-Raghu] 1 tab PO DAILY 05/12/20 09/06/20 Azopt 1 drp OPHTHALMIC (EYE) DAILY 09/04/20 09/06/20 Flovent HFA 2 puff INHALATION DAILY 09/04/20 09/07/20 Spiriva with HandiHaler 1 cap INHALATION DAILY 09/04/20 09/07/20 albuterol sulfate [Ventolin HFA] 2 puff INHALATION QID PRN PRN 09/04/20 09/07/20 latanoprost 1 drp OPHTHALMIC (EYE) HS 09/04/20 09/07/20 magnesium hydroxide 30 ml PO DAILY PRN 09/04/20 09/06/20 metoprolol tartrate 75 mg PO BID 09/04/20 09/07/20 pantoprazole 40 mg PO DAILY 09/04/20 09/07/20 Pradaxa 150 mg PO BID 09/06/20 09/07/20 oxybutynin chloride [Ditropan XL] 5 mg PO DAILY #10 tab 09/06/20 09/07/20 ropinirole 1 mg PO HS 09/06/20 09/06/20 Myrbetriq 50 mg PO DAILY #30 tab 09/13/20 tramadol See Rx Instructions .ROUTE 09/13/20 .COMPLEX PRN #30 tab Previous Rx's Medication Instructions Recorded potassium chloride [Klor-Con M20] 20 meq PO DAILY AM #30 tabcr 07/18/15 acetaminophen [Tylenol] 650 mg PO Q4H PRN PRN tab 11/25/15 levothyroxine 75 mcg PO DAILY@0600 tab 04/13/16 oxybutynin chloride [Ditropan XL] 5 mg PO DAILY #10 tab 09/06/20 Myrbetriq 50 mg PO DAILY #30 tab 09/13/20 tramadol See Rx Instructions .ROUTE 09/13/20 .COMPLEX PRN #30 tab Allergies Allergy/AdvReac Type Severity Reaction Status Date / Time banana Allergy Mild Skin Rash Unverified 09/07/20 19:11 formoterol fumarate AdvReac Intermediate Ineffective Unverified 09/07/20 19:11 [From Dulera] per Pt mometasone furoate AdvReac Intermediate Ineffective Unverified 09/07/20 19:11 [From Dulera] per Pt hydrocodone AdvReac Unknown Dizziness/L Unverified 09/07/20 19:11 ightheade General Stated Complaint: Chest Pain CINTIA: 2 Review of Systems All systems reviewed & are unremarkable except as noted in HPI and below Constitutional Constitutional: Denies chills, Denies fever(s) and Denies weakness Cardiovascular Cardiovascular: Denies dyspnea Respiratory Respiratory: Denies cough and Denies dyspnea Gastrointestinal Gastrointestinal: Denies abdominal pain, Denies nausea and Denies vomiting Musculoskeletal Musculoskeletal: Denies joint swelling Neurologic Neurologic: Denies weakness [facility] Medical History (Updated 11/04/20 @ 16:44 by Geovany Valencia MD) Anxiety Atrial fibrillation Bilateral hydrocele BPH (benign prostatic hyperplasia) Chronic kidney disease (CKD) Chronic obstructive lung disease Chronic pain Diverticulosis of large intestine without diverticulitis Dysphagia Essential hypertension GERD (gastroesophageal reflux disease) Glaucoma Insomnia Lives alone with help available neighbor lives next door Polyp of colon Spinal stenosis of lumbar region Suprapubic catheter Tachycardia-bradycardia Surgical History Colonoscopy - MAC Pacemaker S/P TURP Family History (Updated 10/19/20 @ 12:19 by Jewell Adames MD) Niece No problems noted. Social History (Updated 10/19/20 @ 12:26 by Jewell Adames MD) Smoking/Tobacco Use Status: Former Tobacco Use Smoking risk assessment performed?: Yes Alcohol Intake: former Drug use: Never Substance use type: does not use Caregiver/Support person: No Household members: none Housing: other Details: lives in basement of old farmhouse; afraid of going upstairs Number of Children: 0 Communication Needs: Hard of Hearing and Corrective Lenses Education Level: vocational Do you need help understanding health information?: Always current occupation: retired Pets and animals: No Current gender identity: male What is your relationship status?: never How often do you talk on the phone with friends or family?: three or more times per week How often do you get together with friends or relatives?: twice per week Panel score (0-1 are the most socially isolated patients): 1 What type of physical activity do you participate in: none and sedentary lifestyle Special debi needs: No Agree to transfusion: Yes Carbon monox detector in home: No Firearms in home: Yes Do you feel safe at home: Yes Do you feel safe in your relationship?: Yes Additional Social history: Brenden lives in the basement of an old delapidated farmhouse. He heats with wood but leaves his door open so he can breathe. Friend Casa lives about 100-200 yards away. He checks on Brenden regularly--chops, stacks and loads his wood for him. Brenden's closest living relative is his grandniece, Taisha Montes, who is a Home Health nurse. He is her grandmother's baby brother. No one else is alive in his generation. He never . No children. Has always lived on his own terms. Not going anywhere. Exam Const General: no acute distress Orientation: alert [facility] Head: normal to inspection Ears: external ears normal General nose exam: external nose normal Mouth: moist mucous membranes Eyes General: appearance normal, both eyes and all related structures Neck Neck: normal visual inspection Resp Effort & Inspection: normal respiratory effort and able to speak in complete sentences Cardio Rate: regular rate GI Palpation: soft Skin General skin exam: no rashes or lesions noted Neuro General: patient alert and patient oriented x3 Extrem General: normal to inspection Psych Mental Status: mental status grossly normal Course Vital Signs Vital signs: Vital Signs Temperature 36.6 C 11/04/20 15:05 Pulse 74 11/04/20 15:05 Respiratory Rate 18 11/04/20 15:05 Blood Pressure 122/78 11/04/20 15:05 Pulse Oximetry 98 11/04/20 15:05 Temperature 36.6 C 11/04/20 15:05 Temperature Source Temporal Artery Scan 11/04/20 15:05 Pulse 74 11/04/20 15:05 Respiratory Rate 18 11/04/20 15:05 Respiratory Effort Non-Labored 11/04/20 15:23 Blood Pressure 122/78 11/04/20 15:05 Blood Pressure Position Supine 11/04/20 15:05 Pulse Oximetry 98 11/04/20 15:05 Oxygen Delivery Method Room Air 11/04/20 15:05 Oxygen Flow Rate 0 11/04/20 15:05 Pain Level 8 11/04/20 15:05
[2020-11-04] MEDS: HYDROmorphone 2 MG/ML VIAL 0.5 MG IVP (15:42)
[2020-11-04 15:50] LABS: Abs Immature Grans 0.03 10^3/uL (0.0-0.06); Absolute Basophil Count 0.04 10^3/uL (0.0-0.2); Absolute Eosinophil Count 0.11 10^3/uL (0.0-0.7); Absolute Lymphocyte Count 1.78 10^3/uL (1.2-3.4); Absolute Monocyte Count 0.68 10^3/uL (0.1-0.8); Absolute Neutrophil Count 3.15 10^3/uL (1.2-6.7); Basophils % 0.7; Eosinophils % 1.9; HCT 41.5 % (40.0-50.0); HGB 13.1 g/dL (13.5-17.5); Immature Grans % 0.5; Lymphocytes % 30.7; MCH 30.1 pg (27.0-33.0); MCHC 31.6 % (32.0-36.0); MCV 95.4 fL (80-95); MPV 10.4 fL (8.0-11.0); Monocytes % 11.7; Neutrophils % 54.5; Nucleated RBC 0 %; Platelet Count 199 10^3/uL (130-400); RBC 4.35 10^6/uL (4.36-5.78); RDW 16.8 % (11.8-14.1); RDW-SD 59.5 fL; WBC 5.79 10^3/uL (4.4-10.8)
[2020-11-04 15:56] LABS: INR 1.3 (0.9-1.1); PTT Activated 33.5 sec (21.0-27.5); Prothrombin Time 13.1 sec (9.3-11.0)
[2020-11-04 15:58] LABS: ALT 23 U/L (16-63); AST 24 U/L (15-37); Albumin 3.3 g/dL (3.4-5.0); Alkaline Phosphatase 103 U/L (46-116); Anion Gap 6.8 mmol/L (3-11); BUN 25 mg/dL (7-18); Bilirubin, Total 0.5 mg/dL (0.2-1.0); CO2 30.2 mmol/L (21.0-32.0); CREATININE 1.7 mg/dL (0.70-1.30); Chloride 106 mmol/L (98-107); Estimated GFR 38.59 (mL/min/1.73m2); Glucose 88 mg/dL (74-106); Lipase 69 U/L (73-393); Potassium 4.7 mmol/L (3.5-5.1); Sodium 143 mmol/L (136-145); Total Protein 6.7 g/dL (6.4-8.2)
[2020-11-04 16:01] LABS: Troponin I < 0.05 ng/mL (<0.06)
--- NOTE | 2020-11-04 16:31 | DI.VRAD_ITS ---
PROCEDURE INFORMATION: Exam: XR Chest Exam date and time: 11/04/2020 3:37 PM Age: 85 years old Clinical indication: Other: Cp TECHNIQUE: Imaging protocol: XR of the chest. Views: 1 view. COMPARISON: CR XR CHEST 2V PA LATERAL 08/09/2020 12:31 PM FINDINGS: Tubes, catheters and devices: Right pacemaker. Small round metallic structures overlying the left shoulder region, stable. Lungs: Unremarkable. No consolidation. Pleural spaces: Unremarkable. No pleural effusion. No pneumothorax. Heart/Mediastinum: Unremarkable. No cardiomegaly. Vasculature: Atherosclerosis. Bones/joints: Degenerative changes in the spine. IMPRESSION: Right pacemaker. Atherosclerosis. Small round metallic structures overlying the left shoulder region, stable. Degenerative changes in the spine. Dictated and Authenticated by: Kaden Tai MD. Ordering:CROW Armenta MD
[2020-11-04] MEDS: Lidocaine 5% Patch 1 PATCH TP (16:50)
== END 2020-11-04 17:25 | disposition left against medical advice (07) ==
PROVIDERS: Emergency Provider Emergency Medicine; PCP Family Medicine
DX: R07.9 Chest pain, unspecified (principal); Z53.29 Procedure and treatment not carried out because of patient's decision for other reasons
CPT/HCPCS: 80053; 83690; 93005; 96374; 99284; 71045; 84484; 85025; 85610; 85730; 93010; 99283

== ENCOUNTER 2020-11-05 12:02 | Emergency (ER) | payer MEDICARE, MEDICAID, SELFPAY ==
[2020-11-05] VITALS (24 sets, daily range): BP systolic 87–136; BP diastolic 59–69; PULSE 55–130; RESP 15–33; TEMP 36.9; O2SAT 94–99
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
--- NOTE | 2020-11-05 12:30 | RT.EKG_ITS ---
APPROVED REPORT Exam: Resting ECG Reason for Exam: chest pain Patient Location: E HR:78 bpm ECG Measurements Heart Rate 78 AXIS MS [id number] P [id number] QRSd 85 QRS 40 QT 406 T 55 QTc 488 Conclusion Afib. no stemi.
[2020-11-05 12:39] LABS: Lactate 1.4 mmol/L (0.6-1.4)
[2020-11-05 12:41] LABS: Abs Immature Grans 0.03 10^3/uL (0.0-0.06); Absolute Basophil Count 0.04 10^3/uL (0.0-0.2); Absolute Eosinophil Count 0.07 10^3/uL (0.0-0.7); Absolute Neutrophil Count 3.97 10^3/uL (1.2-6.7); Basophils % 0.7; Eosinophils % 1.1; HCT 43.6 % (40.0-50.0); Immature Grans % 0.5; Lymphocytes % 22.9; MCH 30.4 pg (27.0-33.0); MCHC 32.1 % (32.0-36.0); MCV 94.8 fL (80-95); MPV 10.2 fL (8.0-11.0); Monocytes % 9.8; Nucleated RBC 0 %; Platelet Count 191 10^3/uL (130-400); RDW 16.9 % (11.8-14.1); RDW-SD 58.2 fL; WBC 6.11 10^3/uL (4.4-10.8)
[2020-11-05] MEDS: FAMOTIDINE 20 MG/50 ML BAG 200 MG IVPB (12:44)
[2020-11-05] MEDS: Normal Saline Flush 10 ML SYR IVP (12:44)
[2020-11-05 12:52] LABS: INR 1.3 (0.9-1.1); Prothrombin Time 12.6 sec (9.3-11.0)
[2020-11-05 12:57] LABS: ALT 27 U/L (16-63); AST 22 U/L (15-37); Albumin 3.5 g/dL (3.4-5.0); Alkaline Phosphatase 100 U/L (46-116); Anion Gap 5.9 mmol/L (3-11); BUN 23 mg/dL (7-18); Bilirubin, Total 0.6 mg/dL (0.2-1.0); CO2 32.1 mmol/L (21.0-32.0); CREATININE 1.5 mg/dL (0.70-1.30); Calcium 9.4 mg/dL (8.5-10.1); Chloride 106 mmol/L (98-107); Estimated GFR 44.59 (mL/min/1.73m2); Glucose 94 mg/dL (74-106); Lipase 68 U/L (73-393); Potassium 4.2 mmol/L (3.5-5.1); Sodium 144 mmol/L (136-145); Total Protein 7.2 g/dL (6.4-8.2); Troponin I < 0.05 ng/mL (<0.06)
[2020-11-05] MEDS: Omnipaque 350 MG/ML 100 ML BTL IJ (13:33)
--- NOTE | 2020-11-05 13:48 | ED.GENADUL_ITS ---
Discharge Plan Disposition Patient Disposition: HOME Condition: Stable Discharge Details Clinical Impression: Epigastric abdominal pain Primary Care Provider: Lorena Chong ED Provider: Geovany Valencia Home Meds and New Rx's Prescriptions: No Action potassium chloride [Klor-Con M20] 20 MEQ tablet,ER particles/crystals 20 meq PO DAILY AM Qty: 30 RF: 0 mirtazapine [Remeron] 15 MG tablet 15 mg PO HS RF: 0 levothyroxine 75 MCG tablet 75 mcg PO DAILY@0600 RF: 0 cholecalciferol (vitamin D3) 1,000 UNITS tablet 1 tab PO DAILY RF: 0 bisacodyl 10 MG suppository 10 mg HI DAILY PRNRF: 0 Fluticasone Propionate [24 Hour Allergy] 9.9 ML [place].Susp 9.9 ml NS BID RF: 0 lorazepam [Ativan] 0.5 mg Tablet 0.5 mg PO TID RF: 0 lactulose 10 gram/15 mL Solution 20 g PO DAILY PRN (Reason: Constipation) RF: 0 latanoprost 0.005 % Drops 1 drp ophthalmic (eye) HS RF: 0 brinzolamide [Azopt] 1 % Drops,Suspension 1 drp ophthalmic (eye) DAILY RF: 0 magnesium hydroxide 400 mg/5 mL Suspension 30 ml PO DAILY PRNRF: 0 albuterol sulfate [Ventolin HFA] 90 mcg/actuation Hfa Aerosol Inhaler 2 puff INHALATION QID PRN PRNRF: 0 Spiriva with HandiHaler 18 mcg capsule, w/inhalation device 1 cap INHALATION DAILY RF: 0 pantoprazole 40 MG tablet,delayed release (DR/EC) 40 mg PO DAILY RF: 0 metoprolol tartrate 50 MG tablet 75 mg PO BID RF: 0 Flovent HFA 120 PUFF HFA aerosol inhaler 2 puff Inhalation BID RF: 0 ropinirole 1 mg tablet 1 mg PO HS RF: 0 oxybutynin chloride [Ditropan XL] 5 mg tablet extended release 24hr 5 mg PO DAILY Qty: 10 RF: 0 furosemide 20 MG tablet 40 mg PO DAILY RF: 0 albuterol sulfate 2.5 MG/3 ML solution for nebulization 3 ml IN Q4H PRN PRNRF: 0 sennosides [senna] 8.6 mg Tablet 8.6 mg PO HS RF: 0 docusate sodium [Colace] 100 mg Capsule 100 mg PO BID RF: 0 ondansetron 4 mg Tablet,Disintegrating 4 mg PO QID PRNRF: 0 ursodiol 250 mg tablet 250 mg PO BID RF: 0 multivitamin [Tab-A-Raghu] Tablet 1 tab PO DAILY RF: 0 tramadol 50 mg tablet See Rx Instructions .ROUTE .COMPLEX PRNQty: 30 RF: 0 Myrbetriq 50 mg Tablet Extended Release 24 Hr 50 mg PO DAILY Qty: 30 RF: 1 morphine concentrate 100 mg/5 mL (20 mg/mL) solution See Rx Instructions .ROUTE .COMPLEX RF: 0 nitroglycerin 0.4 mg tablet, sublingual 0.4 mg sublingual PRN PRNRF: 0 Pradaxa 75 mg capsule 75 mg PO BID RF: 0 acetaminophen [Tylenol] 325 MG tablet 650 mg PO Q6H PRN PRNRF: 0 Discharge Instructions Instructions: Epigastric Pain (ED) Additional Instructions: Please continue take your medications as prescribed. Please take Pepcid (famotidine) 20 mg by mouth twice a day for the next 30 days. Please contact your primary care physician to arrange follow-up. Call tomorrow. Return to the ER immediately for any worsening or new concerning symptoms. Referrals: Lorena Chong [Primary Care Provider] - Discharge Data Discharge Date/Time-TO BE ENTERED AT DEPARTURE: 11/05/20 17:15 Medical Decision Making <Mookie Morejon MD - Last Filed: 11/08/20 23:03> 1439 -- 85-year-old male with multiple medical problems including A. fib, COPD, diverticulitis, hypertension, GERD, here with upper abdominal pain today, diffusely tender with no peritoneal findings, associated nausea and vomiting. Yesterday patient was here for chest pain and left prior to completion of diagnostic work-up. Initial troponin yesterday was negative. EKG was reviewed interpreted by me: A. fib, 78 bpm, normal axis, nondiagnostic. Labs reviewed and no leukocytosis noted. Normal lactate. Normal LFTs. Normal lipase. Creatinine elevated at 1.5 with a GFR of 44. CT of the chest to assess for acute pulmonary embolism given chest discomfort yesterday interpreted by radiology: negative. CT of the abdomen pelvis to assess for acute surgical pathology interpreted by radiology: Negative Patient was given Pepcid 20 mg IV and was reassessed and noted improvement in discomfort. Patient now hungry and requesting food. Will provide bland diet and reassess. 1520 --patient was reassessed, he tolerated food and continues to feel well. I suspect gastritis in etiology for his symptoms. Will obtain delta troponin. <Geovany Valencia MD - Last Filed: 11/05/20 16:28> second troponin negative, remains asymptomatic and ate without difficulties, he is comfortable at this time with discharge and follow up with pcp, return precautions given HPI <Mookie Morejon MD - Last Filed: 11/08/20 23:03> General Mode of arrival: EMS . Date/Time Provider Initiated Documentation: 11/05/20 12:10 . Limitations to Documentation: no limitations . Information obtained by: patient . HPI Narrative: 85-year-old male with multiple medical problems including A. fib, anemia, CHF, COPD, diverticulitis, hypertension, hypothyroidism, renal stone, presents with chief complaint of abdominal pain. Pain is diffuse abdomen but worse in the epigastrium. Pain is moderate to severe with associated nausea. Patient notes he was seen here yesterday in the emergency department for chest pain. Had initial diagnostics and left AGAINST MEDICAL ADVICE. Troponin yesterday was negative. He went home and noticed that he had nausea and vomiting and pain seemed to develop in his abdomen. He denies chest pain at this time. Related Data Home Medications Medication Instructions Recorded Confirmed potassium chloride [Klor-Con M20] 20 meq PO DAILY AM #30 tabcr 07/18/15 11/05/20 mirtazapine [Remeron] 15 mg PO HS 03/04/16 11/05/20 levothyroxine 75 mcg PO DAILY@0600 tab 04/13/16 11/05/20 furosemide 40 mg PO DAILY 10/22/16 11/05/20 cholecalciferol (vitamin D3) 1 tab PO DAILY 08/01/17 11/05/20 albuterol sulfate 3 ml IN Q4H PRN PRN 10/22/17 11/05/20 Fluticasone Propionate [24 Hour 9.9 ml NS BID 12/30/17 11/05/20 Allergy] bisacodyl 10 mg HI DAILY PRN 12/30/17 11/05/20 lactulose 20 g PO DAILY PRN 10/29/18 11/05/20 lorazepam [Ativan] 0.5 mg PO TID 10/29/18 11/05/20 docusate sodium [Colace] 100 mg PO BID 11/30/18 11/05/20 ondansetron 4 mg PO QID PRN 11/30/18 11/05/20 sennosides [senna] 8.6 mg PO HS 11/30/18 11/05/20 ursodiol 250 mg PO BID 03/16/20 11/05/20 multivitamin [Tab-A-Raghu] 1 tab PO DAILY 05/12/20 11/05/20 Flovent HFA 2 puff INHALATION BID 09/04/20 11/05/20 Spiriva with HandiHaler 1 cap INHALATION DAILY 09/04/20 11/05/20 albuterol sulfate [Ventolin HFA] 2 puff INHALATION QID PRN PRN 09/04/20 11/05/20 brinzolamide [Azopt] 1 drp OPHTHALMIC (EYE) DAILY 09/04/20 11/05/20 latanoprost 1 drp OPHTHALMIC (EYE) HS 09/04/20 11/05/20 magnesium hydroxide 30 ml PO DAILY PRN 09/04/20 11/05/20 metoprolol tartrate 75 mg PO BID 09/04/20 11/05/20 pantoprazole 40 mg PO DAILY 09/04/20 11/05/20 oxybutynin chloride [Ditropan XL] 5 mg PO DAILY #10 tab 09/06/20 09/07/20 ropinirole 1 mg PO HS 09/06/20 09/06/20 Myrbetriq 50 mg PO DAILY #30 tab 09/13/20 11/05/20 tramadol See Rx Instructions .ROUTE 09/13/20 11/05/20 .COMPLEX PRN #30 tab acetaminophen [Tylenol] 650 mg PO Q6H PRN PRN 11/05/20 11/05/20 dabigatran etexilate [Pradaxa] 75 mg PO BID 11/05/20 11/05/20 morphine concentrate See Rx Instructions .ROUTE .COMPLEX 11/05/20 11/05/20 nitroglycerin 0.4 mg SUBLINGUAL PRN PRN 11/05/20 11/05/20 Previous Rx's Medication Instructions Recorded potassium chloride [Klor-Con M20] 20 meq PO DAILY AM #30 tabcr 07/18/15 levothyroxine 75 mcg PO DAILY@0600 tab 04/13/16 oxybutynin chloride [Ditropan XL] 5 mg PO DAILY #10 tab 09/06/20 Myrbetriq 50 mg PO DAILY #30 tab 09/13/20 tramadol See Rx Instructions .ROUTE 09/13/20 .COMPLEX PRN #30 tab Allergies Allergy/AdvReac Type Severity Reaction Status Date / Time banana Allergy Mild Skin Rash Unverified 11/05/20 12:06 formoterol fumarate AdvReac Intermediate Ineffective Unverified 11/05/20 12:06 [From Dulera] per Pt mometasone furoate AdvReac Intermediate Ineffective Unverified 11/05/20 12:06 [From Dulera] per Pt hydrocodone AdvReac Unknown Dizziness/L Unverified 11/05/20 12:06 ightheade General Stated Complaint: Abd Prob CINTIA: 3 Review of Systems <Mookie Morejon MD - Last Filed: 11/08/20 23:03> All systems reviewed & are unremarkable except as noted in HPI and below Cardiovascular Cardiovascular: Denies dyspnea Respiratory Respiratory: Denies dyspnea Gastrointestinal Gastrointestinal: Reports as per HPI PFSH <Mookie Morejon MD - Last Filed: 11/08/20 23:03> Medical History Anxiety Atrial fibrillation Bilateral hydrocele BPH (benign prostatic hyperplasia) Chronic kidney disease (CKD) Chronic obstructive lung disease Chronic pain Diverticulosis of large intestine without diverticulitis Dysphagia Essential hypertension GERD (gastroesophageal reflux disease) Glaucoma Insomnia Lives alone with help available neighbor lives next door Polyp of colon Spinal stenosis of lumbar region Suprapubic catheter Tachycardia-bradycardia Surgical History Colonoscopy - MAC Pacemaker S/P TURP Family History Niece No problems noted. Social History Smoking/Tobacco Use Status: Former Tobacco Use Smoking risk assessment performed?: Yes Alcohol Intake: former Drug use: Never Substance use type: does not use Caregiver/Support person: No Household members: none Housing: other Details: lives in basement of old farmhouse; afraid of going upstairs Number of Children: 0 Communication Needs: Hard of Hearing and Corrective Lenses Education Level: vocational Do you need help understanding health information?: Always current occupation: retired Pets and animals: No Current gender identity: male What is your relationship status?: never How often do you talk on the phone with friends or family?: three or more times per week How often do you get together with friends or relatives?: twice per week Panel score (0-1 are the most socially isolated patients): 1 What type of physical activity do you participate in: none and sedentary lifestyle Special debi needs: No Agree to transfusion: Yes Carbon monox detector in home: No Firearms in home: Yes Do you feel safe at home: Yes Do you feel safe in your relationship?: Yes Additional Social history: Brenden lives in the basement of an old delapidated farmhouse. He heats with wood but leaves his door open so he can breathe. Friend Casa lives about 100-[address] yards away. He checks on Brenden regularly--chops, stacks and loads his wood for him. Brenden's closest living relative is his grandniece, Taisha Montes, who is a Home Health nurse. He is her grandmother's baby brother. No one else is alive in his generation. He never . No children. Has always lived on his own terms. Not going anywhere. Exam <Mookie Morejon MD - Last Filed: 11/08/20 23:03> Const General: cooperative and no acute distress HENMT Mouth: moist mucous membranes Eyes Conjunctivae: normal conjunctivae Sclera: normal sclerae Neck Neck: trachea midline and supple Resp Auscultation: clear to auscultation bilaterally, no rales, no rhonchi and no wheezes Cardio Rate: regular rate and not tachycardic Rhythm: abnormal rhythm GI Palpation: soft, not firm, no guarding, no masses, not rigid and tender in the epigastrum, in the LUQ and in the RUQ Skin General skin exam: no rashes or lesions noted Neuro General: patient alert, patient awake, patient oriented x3 and tone normal Extrem General: no edema Psych Appearance: grossly normal Mental Status: mental status grossly normal Speech and Movement: speech and movement normal Course <Mookie Morejon MD - Last Filed: 11/08/20 23:03> Vital Signs Vital signs: Vital Signs Temperature 36.9 C 11/05/20 12:04 Pulse 76 11/05/20 12:04 Respiratory Rate 16 11/05/20 12:04 Blood Pressure 136/69 11/05/20 12:04 Pulse Oximetry 98 11/05/20 12:04 Temperature 36.9 C 11/05/20 12:04 Temperature Source Skin 11/05/20 12:04 Pulse 55 L 11/05/20 12:45 Pulse 108 H 11/05/20 12:40 Respiratory Rate 22 11/05/20 12:40 Respiratory Effort Non-Labored 11/05/20 12:06 Blood Pressure 123/59 L 11/05/20 12:45 Blood Pressure Mean 74 11/05/20 12:45 Blood Pressure Position Sitting 11/05/20 12:04 Pulse Oximetry 98 11/05/20 12:45 Oxygen Delivery Method Room Air 11/05/20 12:04 Oxygen Flow Rate 0 11/05/20 12:04 Pain Level 7 11/05/20 12:04 Lab/Test Results Lab/Test Results: Laboratory Tests Range/Units 11/05/20 11/05/20 11/05/20 12:18 12:18 12:18 WBC (4.4-10.8) 10^3/uL 6.11 RBC (4.36-5.78) 10^6/uL 4.60 Hgb (13.5-17.5) g/dL 14.0 Hct (40.0-50.0) % 43.6 MCV (80-95) fL 94.8 MCH (27.0-33.0) pg 30.4 MCHC (32.0-36.0) % 32.1 RDW (11.8-14.1) % 16.9 H Plt Count (130-400) 10^3/uL 191 MPV (8.0-11.0) fL 10.2 Immature Gran % 0.5 Neutrophils % 65.0 Lymphocytes % 22.9 Monocytes % 9.8 Eosinophils % 1.1 Basophils % 0.7 Nucleated RBC % % 0 Absolute Neutrophils (1.2-6.7) 10^3/uL 3.97 Absolute Lymphocytes (1.2-3.4) 10^3/uL 1.40 Absolute Monocytes (0.1-0.8) 10^3/uL 0.60 Absolute Eosinophils (0.0-0.7) 10^3/uL 0.07 Absolute Basophils (0.0-0.2) 10^3/uL 0.04 PT (9.3-11.0) sec 12.6 H INR (0.9-1.1) 1.3 H VBG Lactate (0.6-1.4) mmol/L Sodium (136-145) mmol/L 144 Potassium (3.5-5.1) mmol/L 4.2 Chloride (98-107) mmol/L 106 Carbon Dioxide (21.0-32.0) mmol/L 32.1 H Anion Gap (3-11) mmol/L 5.9 BUN (7-18) mg/dL 23 H Creatinine (0.70-1.30) mg/dL 1.5 H Estimated GFR/1.73 m2 (mL/min/1.73m2) 44.59 Glucose (74-106) mg/dL 94 Calcium (8.5-10.1) mg/dL 9.4 Total Bilirubin (0.2-1.0) mg/dL 0.6 AST (15-37) U/L 22 ALT (16-63) U/L 27 Alkaline Phosphatase (46-116) U/L 100 Troponin I (<0.06) ng/mL < 0.05 Total Protein (6.4-8.2) g/dL 7.2 Albumin (3.4-5.0) g/dL 3.5 Lipase (73-393) U/L 68 Range/Units 11/05/20 12:35 WBC (4.4-10.8) 10^3/uL RBC (4.36-5.78) 10^6/uL Hgb (13.5-17.5) g/dL Hct (40.0-50.0) % MCV (80-95) fL MCH (27.0-33.0) pg MCHC (32.0-36.0) % RDW (11.8-14.1) % Plt Count (130-400) 10^3/uL MPV (8.0-11.0) fL Immature Gran % Neutrophils % Lymphocytes % Monocytes % Eosinophils % Basophils % Nucleated RBC % % Absolute Neutrophils (1.2-6.7) 10^3/uL Absolute Lymphocytes (1.2-3.4) 10^3/uL Absolute Monocytes (0.1-0.8) 10^3/uL Absolute Eosinophils (0.0-0.7) 10^3/uL Absolute Basophils (0.0-0.2) 10^3/uL PT (9.3-11.0) sec INR (0.9-1.1) VBG Lactate (0.6-1.4) mmol/L 1.4 Sodium (136-145) mmol/L Potassium (3.5-5.1) mmol/L Chloride (98-107) mmol/L Carbon Dioxide (21.0-32.0) mmol/L Anion Gap (3-11) mmol/L BUN (7-18) mg/dL Creatinine (0.70-1.30) mg/dL Estimated GFR/1.73 m2 (mL/min/1.73m2) Glucose (74-106) mg/dL Calcium (8.5-10.1) mg/dL Total Bilirubin (0.2-1.0) mg/dL AST (15-37) U/L ALT (16-63) U/L Alkaline Phosphatase (46-116) U/L Troponin I (<0.06) ng/mL Total Protein (6.4-8.2) g/dL Albumin (3.4-5.0) g/dL Lipase (73-393) U/L Sign Out <Mookie Morejon MD - Last Filed: 11/08/20 23:03> Sign Out Data: Sign Out Comment: follow-up delta trop, reassess for dispo Last updated by Mookie Morejon MD at 11/05/20 15:46
[2020-11-05 16:12] LABS: Troponin I < 0.05 ng/mL (<0.06)
== END 2020-11-05 17:15 | disposition home or self-care (01) ==
PROVIDERS: Student in an Organized Health Care Education/Training Program; Emergency Provider Emergency Medicine; PCP Family Medicine
DX: R10.13 Epigastric pain (principal)
CPT/HCPCS: 71275; 74177; 80053; 83690; 93005; 96374; 99285; 83605; 84484; 85025; 85610; 93010; 99283; J3490

== ENCOUNTER 2021-01-31 13:03 | Emergency (ER) | payer MEDICARE, MEDICAID, SELFPAY ==
[2021-01-31] VITALS (19 sets, daily range): BP systolic 100–113; BP diastolic 38–71; PULSE 65–116; RESP 15–28; TEMP 36.5; O2SAT 96–99
--- NOTE | 2021-01-31 13:13 | W.ED.GENAD ---
Discharge Plan Disposition Patient Disposition: HOME Condition: Improving Discharge Details Clinical Impression: Abdominal pain Primary Care Provider: Lorena Chong ED Provider: Ivette Mcelroy Home Meds and New Rx's Prescriptions: New sucralfate [Carafate] 1 gram tablet 1 gm PO QACHS Qty: 14 RF: 0 Continued potassium chloride [Klor-Con M20] 20 MEQ tablet,ER particles/crystals 20 meq PO DAILY AM Qty: 30 RF: 0 mirtazapine [Remeron] 15 MG tablet 15 mg PO HS RF: 0 levothyroxine 75 MCG tablet 75 mcg PO DAILY@0600 RF: 0 cholecalciferol (vitamin D3) 1,000 UNITS tablet 1 tab PO DAILY RF: 0 bisacodyl 10 MG suppository 10 mg [place] DAILY PRNRF: 0 Fluticasone Propionate [24 Hour Allergy] 9.9 ML Lorman.Susp 9.9 ml NS BID RF: 0 lorazepam [Ativan] 0.5 mg Tablet 0.5 mg PO TID RF: 0 lactulose 10 gram/15 mL Solution 20 g PO DAILY PRN (Reason: Constipation) RF: 0 latanoprost 0.005 % Drops 1 drp ophthalmic (eye) HS RF: 0 brinzolamide [Azopt] 1 % Drops,Suspension 1 drp ophthalmic (eye) DAILY RF: 0 magnesium hydroxide 400 mg/5 mL Suspension 30 ml PO DAILY PRNRF: 0 albuterol sulfate [Ventolin HFA] 90 mcg/actuation Hfa Aerosol Inhaler 2 puff INHALATION QID PRN PRNRF: 0 Spiriva with HandiHaler 18 mcg capsule, w/inhalation device 1 cap INHALATION DAILY RF: 0 pantoprazole 40 MG tablet,delayed release (DR/EC) 40 mg PO DAILY RF: 0 metoprolol tartrate 50 MG tablet 75 mg PO BID RF: 0 Flovent HFA 120 PUFF HFA aerosol inhaler 2 puff Inhalation BID RF: 0 ropinirole 1 mg tablet 1 mg PO HS RF: 0 furosemide 20 MG tablet 40 mg PO DAILY RF: 0 sennosides [senna] 8.6 mg Tablet 8.6 mg PO HS RF: 0 docusate sodium [Colace] 100 mg Capsule 100 mg PO BID RF: 0 ondansetron 4 mg Tablet,Disintegrating 4 mg PO QID PRNRF: 0 ursodiol 250 mg tablet 250 mg PO BID RF: 0 multivitamin [Tab-A-Raghu] Tablet 1 tab PO DAILY RF: 0 Myrbetriq 50 mg Tablet Extended Release 24 Hr 50 mg PO DAILY Qty: 30 RF: 1 morphine concentrate 100 mg/5 mL (20 mg/mL) solution See Rx Instructions .ROUTE .COMPLEX RF: 0 nitroglycerin 0.4 mg tablet, sublingual 0.4 mg sublingual PRN PRNRF: 0 Pradaxa 75 mg capsule 75 mg PO BID RF: 0 acetaminophen [Tylenol] 325 MG tablet 650 mg PO Q6H PRN PRNRF: 0 oxycodone 5 mg Capsule 5 mg PO QID PRNRF: 0 pantoprazole [address] For Susp In Packet 40 mg PO DAILY RF: 0 Discharge Instructions Instructions: Abdominal Pain (ED) Additional Instructions: Drink plenty of fluids and get plenty of rest. Take your Protonix daily as directed. Start taking the Carafate prescription as directed. Follow-up with general surgery for reevaluation and for consideration for upper endoscopy if your symptoms do not improve or worsen Follow-up with your primary care doctor in 1 week. Return to the emergency department with any worsening or new concerning symptoms. Referrals: Lady Blancas DO [OSTEOPATHIC DOCTOR] - Discharge Data Discharge Date/Time-TO BE ENTERED AT DEPARTURE: 01/31/21 16:50 Discharge Physician: Ivette Mcelroy Medical Decision Making 85-year-old male with a history of atrial fibrillation, anxiety, hypertension, COPD, CHF, diverticulitis presents for abdominal pain for the past 2 days. Patient states the pain radiates from his upper and lower abdomen up to his chest at times. Patient appears comfortable and nontoxic. His vitals are within normal limits. Oxygen saturation 90% on room air. Abdomen is soft and tender in the upper and lower quadrants. He does have a suprapubic catheter with dark yellow urine in bag. He complained of some irritation to the tip of his penis which appears minimally erythematous but without vesicle or discharge. Considering patient's age and history, will obtain screening labs, EKG, CT chest abdomen and pelvis and give pepcid and GI cocktail and reassess. Labs and imaging reviewed and unremarkable. Troponin negative. Lipase within normal limits. CT reviewed and unremarkable. Patient reassessed and he feels better and would like to eat a tray of food. We will place patient on care management list to help arrange for a follow-up appointment with surgery for reevaluation and consideration for upper endoscopy to rule out gastritis versus severe GERD, esophagitis or ulcer. Patient is taking pantoprazole. We will add Carafate to his daily regimen. Patient placed on surgery follow-up list for re-evaluation and consideration of upper endoscopy to r/o gastritis, PUD, esophagitis, etc. Advised to follow up with the primary care doctor for re-evaluation. Usual and customary return precautions given prior to discharge. Medical Records Medical records reviewed: Yes I reviewed the patient's medical records. Imaging Data Radiologic Study: Radiologist's impression: CT CHEST PE ABD PELVIS W CLINICAL HISTORY: sob, h/o afib, abd pain, h/o diverticulitis. TECHNIQUE: Imaging Protocol: Axial CT angiography was performed with multi-slice acquisition and multi-planar and/or 3D reconstructions. CONTRAST MATERIAL: Intravenous: Omnipaque 350 Contrast volume:structured data in ml COMPARISON: CT CT CHEST PE ABD PELVIS W from 11/05/2020 FINDINGS: CHEST: Pulmonary Arteries: No evidence of filling defect to suggest pulmonary emboli. Tracheobronchial tree: Patent where visualized. Mediastinum and Sloane: No dominant adenopathy or fluid collection. Pulmonary parenchyma: No consolidation or dominant measurable mass. Moderate centrilobular emphysematous changes are present. Dependent atelectasis is present. Pleura: No effusion or pneumothorax. Heart: The heart is not dilated. Mild coronary artery calcification. No pericardial effusion. Aorta: Thoracic aorta non-dilated. Atherosclerosis. The thoracic aorta is inadequately opacified for evaluation for dissection. Bones: Within normal limits for the patient's age. ABDOMEN: Liver: Unchanged mottled enhancement of the liver suspicious for geographic fatty infiltration. No measurable mass. Portal, Superior Mesenteric, and Splenic Veins: Unremarkable. Gallbladder and Biliary Tract: Status post cholecystectomy. No biliary ductal dilatation. Pancreas: Normal density, no abnormal calcifications or inflammatory process. Spleen: Calcified granuloma. No splenomegaly. Adrenals: No masses seen. Kidneys: Normal size, contour and axis. No radiodense stones or obstructive uropathy. No masses seen. Abdominal Aorta: Abdominal portion non-dilated. Marked atherosclerosis. Bowel: No obstruction or bowel wall thickening. No evidence of appendicitis. There is diffuse diverticulosis. No evidence of acute diverticulitis. Peritoneal Cavity: No ascites, collection or mesenteric inflammatory response. No free air. Lymph Nodes: Within normal limits. Bones: Age-appropriate degenerative changes are seen in the spine. Left convex scoliosis. Soft Tissues: Unremarkable. PELVIS: Bladder: There is a suprapubic catheter. The urinary bladder is not distended. This limits evaluation. Reproductive Organs: Marked prostatic enlargement. Lymph Nodes: Within normal limits. Bones: Within normal limits. IMPRESSION: 1. No evidence of pulmonary embolism or thoracic aortic aneurysm. 2. No acute pulmonary process. 3. Colonic diverticulosis but no evidence of acute diverticulitis. 4. No acute abdominal or pelvic process. 5. Results of this exam have been verbally communicated with provider. 6. No acute abdominal or pelvic process. Lab Data Lab results reviewed: Yes I reviewed the patient's lab results. Labs: Laboratory Tests Range/Units 01/31/21 01/31/21 01/31/21 13:35 13:35 13:35 WBC (4.4-10.8) 10^3/uL 6.77 RBC (4.36-5.78) 10^6/uL 4.81 Hgb (13.5-17.5) g/dL 14.7 Hct (40.0-50.0) % 46.4 MCV (80-95) fL 96.5 H MCH (27.0-33.0) pg 30.6 MCHC (32.0-36.0) % 31.7 L RDW (11.8-14.1) % 16.7 H Plt Count (130-400) 10^3/uL 221 MPV (8.0-11.0) fL 10.3 Immature Gran % 0.6 Neutrophils % 62.7 Lymphocytes % 22.2 Monocytes % 12.6 Eosinophils % 1.3 Basophils % 0.6 Nucleated RBC % % 0 Absolute Neutrophils (1.2-6.7) 10^3/uL 4.25 Absolute Lymphocytes (1.2-3.4) 10^3/uL 1.50 Absolute Monocytes (0.1-0.8) 10^3/uL 0.85 H Absolute Eosinophils (0.0-0.7) 10^3/uL 0.09 Absolute Basophils (0.0-0.2) 10^3/uL 0.04 Sodium (136-145) mmol/L 143 Potassium (3.5-5.1) mmol/L 4.2 Chloride (98-107) mmol/L 105 Carbon Dioxide (21.0-32.0) mmol/L 31.3 Anion Gap (3-11) mmol/L 6.7 BUN (7-18) mg/dL 25 H Creatinine (0.70-1.30) mg/dL 1.6 H Estimated GFR/1.73 m2 (mL/min/1.73m2) 41.39 Glucose (74-106) mg/dL 93 Calcium (8.5-10.1) mg/dL 9.1 Total Bilirubin (0.2-1.0) mg/dL 0.7 AST (15-37) U/L 25 ALT (16-63) U/L 23 Alkaline Phosphatase (46-116) U/L 117 H Troponin I (<0.06) ng/mL < 0.05 Total Protein (6.4-8.2) g/dL 7.5 Albumin (3.4-5.0) g/dL 3.6 Lipase (73-393) U/L 77 ECG Data Attestation: I personally reviewed and interpreted this ECG (s) as follows: Interpretation: Rate of 79, A. fib. No STEMI. No acute change from previous EKG. HPI General Mode of arrival: ambulatory. Date/Time Provider Initiated Documentation: 01/31/21 13:11. Limitations to Documentation: no limitations. Information obtained by: patient. HPI Narrative: Patient is a 85-year-old male with a history of atrial fibrillation, GERD, hypertension, TURP with suprapubic catheter, and diverticulitis who presents with abdominal pain for the past 2 days. Patient states the pain is sharp and in his upper abdomen. He states it occasionally is in his lower abdomen and radiates up to his lower abdomen and up to his chest occasionally, shortness of breath. He states he has had early fullness for quite some time, at least a year. He states he can only eat small bits of food and becomes full. He denies any fever, vomiting or diarrhea and states he had a normal bowel movement today. Patient also states that he has had some redness to the tip of his penis which home health is treating with barrier cream which she has from time to time. Related Data Home Medications Medication Instructions Recorded Confirmed potassium chloride [Annie-Con M20] 20 meq PO DAILY AM #30 tabcr 07/18/15 01/31/21 mirtazapine [Remeron] 15 mg PO HS 03/04/16 01/31/21 levothyroxine 75 mcg PO DAILY@0600 tab 04/13/16 01/31/21 furosemide 40 mg PO DAILY 10/22/16 01/31/21 cholecalciferol (vitamin D3) 1 tab PO DAILY 08/01/17 01/31/21 Fluticasone Propionate [24 Hour 9.9 ml NS BID 12/30/17 01/31/21 Allergy] bisacodyl 10 mg [place] DAILY PRN 12/30/17 01/31/21 lactulose 20 g PO DAILY PRN 10/29/18 01/31/21 lorazepam [Ativan] 0.5 mg PO TID 10/29/18 01/31/21 docusate sodium [Colace] 100 mg PO BID 11/30/18 01/31/21 ondansetron 4 mg PO QID PRN 11/30/18 01/31/21 sennosides [senna] 8.6 mg PO HS 11/30/18 01/31/21 ursodiol 250 mg PO BID 03/16/20 01/31/21 multivitamin [Tab-A-Raghu] 1 tab PO DAILY 05/12/20 01/31/21 Flovent HFA 2 puff INHALATION BID 09/04/20 01/31/21 Spiriva with HandiHaler 1 cap INHALATION DAILY 09/04/20 01/31/21 albuterol sulfate [Ventolin HFA] 2 puff INHALATION QID PRN PRN 09/04/20 01/31/21 brinzolamide [Azopt] 1 drp OPHTHALMIC (EYE) DAILY 09/04/20 01/31/21 latanoprost 1 drp OPHTHALMIC (EYE) HS 09/04/20 01/31/21 magnesium hydroxide 30 ml PO DAILY PRN 09/04/20 12/25/20 metoprolol tartrate 75 mg PO BID 09/04/20 01/31/21 pantoprazole 40 mg PO DAILY 09/04/20 12/25/20 ropinirole 1 mg PO HS 03/05/21 06/23/21 Myrbetriq 50 mg PO DAILY #30 tab 09/13/20 01/31/21 Pradaxa 75 mg PO BID 11/05/20 01/31/21 acetaminophen [Tylenol] 650 mg PO Q6H PRN PRN 11/05/20 01/31/21 morphine concentrate See Rx Instructions .ROUTE .COMPLEX 11/05/20 01/31/21 nitroglycerin 0.4 mg SUBLINGUAL PRN PRN 11/05/20 01/31/21 oxycodone 5 mg PO QID PRN 01/31/21 01/31/21 pantoprazole 40 mg PO DAILY 01/31/21 01/31/21 sucralfate [Carafate] 1 gm PO QACHS #14 tab 01/31/21 Previous Rx's Medication Instructions Recorded potassium chloride [Klor-Con M20] 20 meq PO DAILY AM #30 tabcr 07/18/15 levothyroxine 75 mcg PO DAILY@0600 tab 04/13/16 Myrbetriq 50 mg PO DAILY #30 tab 09/13/20 sucralfate [Carafate] 1 gm PO QACHS #14 tab 01/31/21 Allergies Allergy/AdvReac Type Severity Reaction Status Date / Time banana Allergy Mild Skin Rash Unverified 01/31/21 14:02 formoterol fumarate AdvReac Intermediate Ineffective Unverified 01/31/21 14:02 [From Dulera] per Pt mometasone furoate AdvReac Intermediate Ineffective Unverified 01/31/21 14:02 [From Dulera] per Pt hydrocodone AdvReac Unknown Dizziness/L Unverified 01/31/21 14:02 ightheade General CINTIA: 3 Review of Systems All systems reviewed & are unremarkable except as noted in HPI and below Constitutional Constitutional: Reports as per HPI, Denies chills and Denies fever(s) Eyes Eyes: Denies blurry vision ENT Ears, Nose, Mouth, and Throat: Denies dizziness, Denies sore throat and Denies throat swelling Cardiovascular Cardiovascular: Denies chest pain and Denies dyspnea Respiratory Respiratory: Denies cough and Denies dyspnea Gastrointestinal Gastrointestinal: Reports abdominal pain, Denies diarrhea and Denies vomiting Genitourinary Genitourinary: Denies hematuria and Denies dysuria Musculoskeletal Musculoskeletal: Denies back pain and Denies numbness Integumentary/Breasts Skin/Breast: Denies lesions and Denies rash Neurologic Neurologic: Denies dizziness, Denies localized weakness and Denies numbness Allergic/Immunologic Allergic/Immunologic: Denies throat swelling [facility] Medical History (Updated 01/31/21 @ 15:30 by Ivette Mcelroy DO) All medications reviewed Anemia associated with acute blood loss Anxiety Atrial fibrillation Bilateral hydrocele BPH (benign prostatic hyperplasia) Chronic GERD Chronic kidney disease (CKD) Chronic lower back pain Chronic obstructive lung disease Chronic pain Diverticulosis of large intestine without diverticulitis Dysphagia Essential hypertension GERD (gastroesophageal reflux disease) Glaucoma Insomnia Lives alone with help available neighbor lives next door Polyp of colon Spinal stenosis of lumbar region Suprapubic catheter Tachycardia-bradycardia Surgical History Colonoscopy - MAC Pacemaker S/P TURP Family History Niece No problems noted. Social History Smoking/Tobacco Use Status: Former Tobacco Use Smoking risk assessment performed?: Yes Alcohol Intake: former Drug use: Never Substance use type: does not use Caregiver/Support person: No Household members: none Housing: other Details: lives in basement of old farmhouse; afraid of going upstairs Number of Children: 0 Communication Needs: Hard of Hearing and Corrective Lenses Education Level: vocational Do you need help understanding health information?: Always current occupation: retired Pets and animals: No Current gender identity: male What is your relationship status?: never How often do you talk on the phone with friends or family?: three or more times per week How often do you get together with friends or relatives?: twice per week Panel score (0-1 are the most socially isolated patients): 1 What type of physical activity do you participate in: none and sedentary lifestyle Special debi needs: No Agree to transfusion: Yes Carbon monox detector in home: No Firearms in home: Yes Do you feel safe at home: Yes Do you feel safe in your relationship?: Yes Additional Social history: Brenden lives in the basement of an old delapidated farmhouse. He heats with wood but leaves his door open so he can breathe. Friend Casa lives about [phone] yards away. He checks on Brenden regularly--chops, stacks and loads his wood for him. Brenden's closest living relative is his grandniece, Taisha Montes, who is a Home Health nurse. He is her grandmother's baby brother. No one else is alive in his generation. He never . No children. Has always lived on his own terms. Not going anywhere. Exam Const General: cooperative and no acute distress [facility] Head: normal to inspection Face and sinus: normal facial exam Eyes General: appearance normal, both eyes and all related structures EOM: EOM intact bilaterally Neck Neck: normal visual inspection and No submandibular swelling Lymphatic: no lymphadenopathy noted Chest Chest: normal inspection of the chest and no tenderness Resp Effort & Inspection: normal respiratory effort and able to speak in complete sentences Auscultation: clear to auscultation bilaterally Cardio Rate: regular rate Rhythm: regular rhythm GI Inspection: normal to inspection Palpation: soft, not firm, not rigid and nontender Auscultation: normal bowel sounds Penis: not edematous, erythematous (minimal noted to tip of penis) and no pustules Scrotum: scrotum normal Skin General skin exam: no rashes or lesions noted Neuro General: patient alert, patient awake and patient oriented x3 Cognition: normal cognition Speech: speech normal Motor: muscle tone normal throughout Sensory Exam: no sensory deficits noted Extrem General: normal to inspection, full ROM, capillary refill normal, no calf tenderness bilaterally and no edema Psych Appearance: grossly normal Mental Status: mental status grossly normal Speech and Movement: speech and movement normal Affect: normal affect
--- NOTE | 2021-01-31 13:30 | DI.CT_ITS ---
Exam(s) CT CHEST PE ABD PELVIS W EXAM: CT CHEST PE ABD PELVIS W CLINICAL HISTORY: sob, h/o afib, abd pain, h/o diverticulitis. TECHNIQUE: Imaging Protocol: Axial CT angiography was performed with multi-slice acquisition and mu lti-planar and/or 3D reconstructions. CONTRAST MATERIAL: Intravenous: Omnipaque 350 Contrast volume:structured data in ml COMPARISON: CT CT CHEST PE ABD PELVIS W from 11/05/2020 FINDINGS: CHEST: Pulmonary Arteries: No evidence of filling defect to suggest pulmonary emboli. Tracheobronchial tree: Patent where visualized. Mediastinum and Sloane: No dominant adenopathy or fluid collection. Pulmonary parenchyma: No consolidation or dominant measurable mass. Moderate centrilobular emphysemat ous changes are present. Dependent atelectasis is present. Pleura: No effusion or pneumothorax. Heart: The heart is not dilated. Mild coronary artery calcification. No pericardial effusion. Aorta: Thoracic aorta non-dilated. Atherosclerosis. The thoracic aorta is inadequately opacified for evaluation for dissection. Bones: Within normal limits for the patient's age. ABDOMEN: Liver: Unchanged mottled enhancement of the liver suspicious for geographic fatty infiltration. No m easurable mass. Portal, Superior Mesenteric, and Splenic Veins: Unremarkable. Gallbladder and Biliary Tract: Status post cholecystectomy. No biliary ductal dilatation. Pancreas: Normal density, no abnormal calcifications or inflammatory process. Spleen: Calcified granuloma. No splenomegaly. Adrenals: No masses seen. Kidneys: Normal size, contour and axis. No radiodense stones or obstructive uropathy. No masses seen. Abdominal Aorta: Abdominal portion non-dilated. Marked atherosclerosis. Bowel: No obstruction or bowel wall thickening. No evidence of appendicitis. There is diffuse divert iculosis. No evidence of acute diverticulitis. Peritoneal Cavity: No ascites, collection or mesenteric inflammatory response. No free air. Lymph Nodes: Within normal limits. Bones: Age-appropriate degenerative changes are seen in the spine. Left convex scoliosis. Soft Tissues: Unremarkable. PELVIS: Bladder: There is a suprapubic catheter. The urinary bladder is not distended. This limits evaluati on. Reproductive Organs: Marked prostatic enlargement. Lymph Nodes: Within normal limits. Bones: Within normal limits. IMPRESSION: 1. No evidence of pulmonary embolism or thoracic aortic aneurysm. 2. No acute pulmonary process. 3. Colonic diverticulosis but no evidence of acute diverticulitis. 4. No acute abdominal or pelvic process. 5. Results of this exam have been verbally communicated with provider. 6. No acute abdominal or pelvic process. RADIATION DOSE DELIVERED: 1,514.2mGy.cm Total DLP DATA REPOSITORY: All CT scans at this facility are submitted to the National Radiology Data Registry (NRDR) Dose Index Registry (DIR) with the [employer] (A[employer]). RADIATION OPTIMIZATION: All CT scans at this facility use at least one of these dose optimization te chniques: automated exposure control; mA and/or kV adjustment per patient size (includes targeted exa ms where dose is matched to clinical indication); or iterative reconstruction.
--- NOTE | 2021-01-31 13:30 | RT.EKG_ITS ---
APPROVED REPORT Exam: Resting ECG Reason for Exam: chest pain Patient Location: E HR:79 bpm ECG Measurements Heart Rate 79 AXIS MN [id number] P [id number] QRSd 89 QRS 14 QT 390 T 42 QTc 475 Conclusion Atrial fibrillation...? atrial activity. Afib. No STEMI. I have reviewed and interpreted ECG and agree with software generated interpretation.
[2021-01-31 13:41] LABS: Abs Immature Grans 0.04 10^3/uL (0.0-0.06); Absolute Basophil Count 0.04 10^3/uL (0.0-0.2); Absolute Eosinophil Count 0.09 10^3/uL (0.0-0.7); Absolute Monocyte Count 0.85 10^3/uL (0.1-0.8); Absolute Neutrophil Count 4.25 10^3/uL (1.2-6.7); Basophils % 0.6; Eosinophils % 1.3; HCT 46.4 % (40.0-50.0); HGB 14.7 g/dL (13.5-17.5); Immature Grans % 0.6; Lymphocytes % 22.2; MCH 30.6 pg (27.0-33.0); MCHC 31.7 % (32.0-36.0); MCV 96.5 fL (80-95); MPV 10.3 fL (8.0-11.0); Monocytes % 12.6; Neutrophils % 62.7; Nucleated RBC 0 %; Platelet Count 221 10^3/uL (130-400); RBC 4.81 10^6/uL (4.36-5.78); RDW 16.7 % (11.8-14.1); RDW-SD 59.7 fL; WBC 6.77 10^3/uL (4.4-10.8)
[2021-01-31] MEDS: FAMOTIDINE 20 MG/50 ML BAG 200 MG IVPB (13:47)
[2021-01-31] MEDS: ACETAMINOPHEN 1,000 MG/100 ML BTL 400 MG IVPB (13:47)
[2021-01-31 13:58] LABS: ALT 23 U/L (16-63); AST 25 U/L (15-37); Albumin 3.6 g/dL (3.4-5.0); Alkaline Phosphatase 117 U/L (46-116); Anion Gap 6.7 mmol/L (3-11); BUN 25 mg/dL (7-18); Bilirubin, Total 0.7 mg/dL (0.2-1.0); CO2 31.3 mmol/L (21.0-32.0); CREATININE 1.6 mg/dL (0.70-1.30); Calcium 9.1 mg/dL (8.5-10.1); Chloride 105 mmol/L (98-107); Estimated GFR 41.39 (mL/min/1.73m2); Glucose 93 mg/dL (74-106); Lipase 77 U/L (73-393); Potassium 4.2 mmol/L (3.5-5.1); Sodium 143 mmol/L (136-145); Total Protein 7.5 g/dL (6.4-8.2)
[2021-01-31] MEDS: Normal Saline 500 ML IV (14:01)
[2021-01-31 14:04] LABS: Troponin I < 0.05 ng/mL (<0.06)
[2021-01-31] MEDS: Omnipaque 350 MG/ML 100 ML BTL IJ (14:10)
[2021-01-31] MEDS: Normal Saline - Diluent 50 ML VIAL IV (14:11)
[2021-01-31] MEDS: Sucralfate 1 GM TAB PO (16:07)
--- NOTE | 2021-01-31 19:03 | NUR.NOTE ---
Nursing Note: referral to general surgery faxed 01/31/21 - libl
== END 2021-01-31 16:50 | disposition home or self-care (01) ==
PROVIDERS: Emergency Provider Physician Assistant; PCP Family Medicine
DX: R10.30 Lower abdominal pain, unspecified (principal); R07.9 Chest pain, unspecified; R10.10 Upper abdominal pain, unspecified; I48.91 Unspecified atrial fibrillation; R06.02 Shortness of breath
CPT/HCPCS: 36415; 71275; 74177; 80053; 83690; 93005; 96361; 96374; 96375; 99285; 84484; 85025; 93010; 99284; J0131; J3490

== ENCOUNTER 2021-03-04 09:48 | Emergency (ER) | payer MEDICARE, MEDICAID, SELFPAY ==
[2021-03-04] VITALS (37 sets, daily range): BP systolic 90–164; BP diastolic 45–152; PULSE 53–117; RESP 18–32; TEMP 36.4–36.7; O2SAT 90–97
--- NOTE | 2021-03-04 10:07 | ED.GENADUL_ITS ---
Discharge Plan Discharge Details Chief Complaint: SOB Primary Care Provider: Lorena Chong ED Provider: Hardy Frederick Home Meds and New Rx's Prescriptions: New cefdinir 300 mg capsule 300 mg PO Q12H 10 Days Qty: 20 RF: 0 Continued potassium chloride [Klor-Con M20] 20 MEQ tablet,ER particles/crystals 20 meq PO DAILY AM Qty: 30 RF: 0 mirtazapine [Remeron] 15 MG tablet 15 mg PO HS RF: 0 levothyroxine 75 MCG tablet 75 mcg PO DAILY@0600 RF: 0 cholecalciferol (vitamin D3) 1,000 UNITS tablet 1 tab PO DAILY RF: 0 bisacodyl 10 MG suppository 10 mg AL DAILY PRNRF: 0 Fluticasone Propionate [24 Hour Allergy] 9.9 ML [place].Susp 9.9 ml NS BID RF: 0 lorazepam [Ativan] 0.5 mg Tablet 0.5 mg PO TID RF: 0 lactulose 10 gram/15 mL Solution 20 g PO DAILY PRN (Reason: Constipation) RF: 0 latanoprost 0.005 % Drops 1 drp ophthalmic (eye) HS RF: 0 brinzolamide [Azopt] 1 % Drops,Suspension 1 drp ophthalmic (eye) DAILY RF: 0 magnesium hydroxide 400 mg/5 mL Suspension 30 ml PO DAILY PRNRF: 0 albuterol sulfate [Ventolin HFA] 90 mcg/actuation Hfa Aerosol Inhaler 2 puff INHALATION QID PRN PRNRF: 0 Spiriva with HandiHaler 18 mcg capsule, w/inhalation device 1 cap INHALATION DAILY RF: 0 pantoprazole 40 MG tablet,delayed release (DR/EC) 40 mg PO DAILY RF: 0 metoprolol tartrate 50 MG tablet 75 mg PO BID RF: 0 Flovent HFA 120 PUFF HFA aerosol inhaler 2 puff Inhalation BID RF: 0 ropinirole 1 mg tablet 1 mg PO HS RF: 0 furosemide 20 MG tablet 40 mg PO DAILY RF: 0 sennosides [senna] 8.6 mg Tablet 8.6 mg PO HS RF: 0 docusate sodium [Colace] 100 mg Capsule 100 mg PO BID RF: 0 ondansetron 4 mg Tablet,Disintegrating 4 mg PO QID PRNRF: 0 ursodiol 250 mg tablet 250 mg PO BID RF: 0 multivitamin [Tab-A-Raghu] Tablet 1 tab PO DAILY RF: 0 Myrbetriq 50 mg Tablet Extended Release 24 Hr 50 mg PO DAILY Qty: 30 RF: 1 morphine concentrate 100 mg/5 mL (20 mg/mL) solution See Rx Instructions .ROUTE .COMPLEX RF: 0 nitroglycerin 0.4 mg tablet, sublingual 0.4 mg sublingual PRN PRNRF: 0 Pradaxa 75 mg capsule 75 mg PO BID RF: 0 acetaminophen [Tylenol] 325 MG tablet 650 mg PO Q6H PRN PRNRF: 0 oxycodone 5 mg Capsule 5 mg PO QID PRNRF: 0 pantoprazole 40 mg Granules For Susp In Packet 40 mg PO DAILY RF: 0 sucralfate [Carafate] 1 gram tablet 1 gm PO QACHS Qty: 14 RF: 0 Discharge Instructions Additional Instructions: We will start you on antibiotics for what appears to be an early pneumonia. Your work-up today included blood work as well as CT imaging of the chest, abdomen and pelvis. Please continue your prescribed medications including your morphine which you may take twice up to 3 times per day. This will help both your cough and your discomfort. I did discuss your case with Dr. Adames today, and she will arrange a short-term follow-up at your home with the palliative care team. Return to the emergency department for any acute concerns. Medical Decision Making 85-year-old male who is on palliative care, presents from home with 1 week of cough is provoked left chest and left upper quadrant of his abdomen pain that he primarily experiences with coughing. States she had similar episodes in the past. Denies vomiting, no fevers. He is a palliative care patient with strong wishes to remain in his home. He arrives to the ER slightly hypertensive, pulse approxione 100, oxygenating 97% on room air. He does have reproducible pain with palpation of the left lower thorax as well as left upper quadrant of the abdomen. Differential diagno sis includes gastritis, posttussive myalgias, bronchitis, COPD exacerbation. Patient IV access established, given fluids and morphine for his pain as well as a PPI. He is referred for laboratory testing which reveals a white count of 6, hematocrit 40, platelets 181. Some prerenal dehydration with a BUN 28, creatinine one-point. Electrolytes unremarkable, totally 1.2, LFTs otherwise within normal limits. Note of albumin 3.0. Patient's pain significantly improved with IV morphine 5 mg. He states he has not been routinely taking his prescribed morphine. Patient did go for CT imaging which did not show clear evidence of pneumonia but groundglass opacities which may be due to infection in the area where the patient has discomfort and he has had a cough for approximately 1 week. Therefo re, I will treat him with a course of antibiotics. He had fairly impressive response to morphine which she states has not been taking and so as above, was encouraged to resume the prescribed morphine at home. I did discuss his case with Dr. Adames who will arrange an in-home visit from palliative care. Patient is stable and improved and appropriate for discharge home HPI General Mode of arrival: ambulatory . Date/Time Provider Initiated Documentation: 03/04/21 11:02 . Limitations to Documentation: no limitations . Information obtained by: patient . History of Present Illness 85 year old M presents to the emergency department with the chief complaint of Cough for 1 week, left lower chest/left upper quadrant abdomen pain, described as moderate, and is localized to the chest, abdomen and left. Patient reports no radiation. Patient started experiencing this day(s) and it has been intermittent. No relieving factors improve symptom(s), Other factors that worsen symptoms (Seems to be brought on by coughing) . Patient notes cough and other (Denies weight gain or peripheral edema); denies fever/chills, loss of appetite and nausea/vomiting. Patient did receive the following treatments prior to arrival, none Related Data Home Medications Medication Instructions Recorded Confirmed potassium chloride [Klor-Con M20] 20 meq PO DAILY AM #30 tabcr 07/18/15 01/31/21 mirtazapine [Remeron] 15 mg PO HS 03/04/16 01/31/21 levothyroxine 75 mcg PO DAILY@0600 tab 04/13/16 01/31/21 furosemide 40 mg PO DAILY 10/22/16 01/31/21 cholecalciferol (vitamin D3) 1 tab PO DAILY 08/01/17 01/31/21 Fluticasone Propionate [24 Hour 9.9 ml NS BID 12/30/17 01/31/21 Allergy] bisacodyl 10 mg AL DAILY PRN 12/30/17 01/31/21 lactulose 20 g PO DAILY PRN 10/29/18 01/31/21 lorazepam [Ativan] 0.5 mg PO TID 10/29/18 01/31/21 docusate sodium [Colace] 100 mg PO BID 11/30/18 01/31/21 ondansetron 4 mg PO QID PRN 11/30/18 01/31/21 sennosides [senna] 8.6 mg PO HS 11/30/18 01/31/21 ursodiol 250 mg PO BID 03/16/20 01/31/21 multivitamin [Tab-A-Raghu] 1 tab PO DAILY 05/12/20 01/31/21 Flovent HFA 2 puff INHALATION BID 09/04/20 01/31/21 Spiriva with HandiHaler 1 cap INHALATION DAILY 09/04/20 01/31/21 albuterol sulfate [Ventolin HFA] 2 puff INHALATION QID PRN PRN 09/04/20 01/31/21 brinzolamide [Azopt] 1 drp OPHTHALMIC (EYE) DAILY 09/04/20 01/31/21 latanoprost 1 drp OPHTHALMIC (EYE) HS 09/04/20 01/31/21 magnesium hydroxide 30 ml PO DAILY PRN 09/04/20 12/25/20 metoprolol tartrate 75 mg PO BID 09/04/20 01/31/21 pantoprazole 40 mg PO DAILY 09/04/20 12/25/20 ropinirole 1 mg PO HS 09/06/20 12/25/20 Myrbetriq 50 mg PO DAILY #30 tab 09/13/20 01/31/21 Pradaxa 75 mg PO BID 11/05/20 01/31/21 acetaminophen [Tylenol] 650 mg PO Q6H PRN PRN 11/05/20 01/31/21 morphine concentrate See Rx Instructions .ROUTE .COMPLEX 11/05/20 01/31/21 nitroglycerin 0.4 mg SUBLINGUAL PRN PRN 11/05/20 01/31/21 oxycodone 5 mg PO QID PRN 01/31/21 01/31/21 pantoprazole 40 mg PO DAILY 01/31/21 01/31/21 sucralfate [Carafate] 1 gm PO QACHS #14 tab 01/31/21 cefdinir 300 mg PO Q12H 10 Days #20 cap 03/04/21 Previous Rx's Medication Instructions Recorded potassium chloride [Klor-Con M20] 20 meq PO DAILY AM #30 tabcr 07/18/15 levothyroxine 75 mcg PO DAILY@0600 tab 04/13/16 Myrbetriq 50 mg PO DAILY #30 tab 09/13/20 sucralfate [Carafate] 1 gm PO QACHS #14 tab 01/31/21 cefdinir 300 mg PO Q12H 10 Days #20 cap 03/04/21 Allergies Allergy/AdvReac Type Severity Reaction Status Date / Time banana Allergy Mild Skin Rash Unverified 03/04/21 09:57 formoterol fumarate AdvReac Intermediate Ineffective Unverified 03/04/21 09:57 [From Dulera] per Pt mometasone furoate AdvReac Intermediate Ineffective Unverified 03/04/21 09:57 [From Dulera] per Pt hydrocodone AdvReac Unknown Dizziness/L Unverified 03/04/21 09:57 ightheade General Stated Complaint: SOB CINTIA: 2 Review of Systems Narrative: see hpi, 8 systems reviewed and otherwise neg PFSH Medical History All medications reviewed Anemia associated with acute blood loss Anxiety Atrial fibrillation Bilateral hydrocele BPH (benign prostatic hyperplasia) Chronic GERD Chronic kidney disease (CKD) Chronic lower back pain Chronic obstructive lung disease Chronic pain Diverticulosis of large intestine without diverticulitis Dysphagia Essential hypertension GERD (gastroesophageal reflux disease) Glaucoma Insomnia Lives alone with help available neighbor lives next door Polyp of colon Spinal stenosis of lumbar region Suprapubic catheter Tachycardia-bradycardia Surgical History Colonoscopy - MAC Pacemaker S/P TURP Family History Niece No problems noted. Social History Smoking/Tobacco Use Status: Former Tobacco Use Smoking risk assessment performed?: Yes Alcohol Intake: former Drug use: Never Substance use type: does not use Caregiver/Support person: No Household members: none Housing: other Details: lives in basement of old farmhouse; afraid of going upstairs Number of Children: 0 Communication Needs: Hard of Hearing and Corrective Lenses Education Level: vocational Do you need help understanding health information?: Always current occupation: retired Pets and animals: No Current gender identity: male What is your relationship status?: never How often do you talk on the phone with friends or family?: three or more times per week How often do you get together with friends or relatives?: twice per week Panel score (0-1 are the most socially isolated patients): 1 What type of physical activity do you participate in: none and sedentary lifestyle Special debi needs: No Agree to transfusion: Yes Carbon monox detector in home: No Firearms in home: Yes Do you feel safe at home: Yes Do you feel safe in your relationship?: Yes Additional Social history: Brenden lives in the basement of an old delapidated farmhouse. He heats with wood but leaves his door open so he can breathe. Friend Casa lives about 100-200 yards away. He checks on Brenden regularly--chops, stacks and loads his wood for him. Brenden's closest living relative is his grandniece, Taisha Montes, who is a Home Health nurse. He is her grandmother's baby brother. No one else is alive in his generation. He never . No children. Has always lived on his own terms. Not going anywhere. Exam Narrative Exam Narrative: GEN: awake, alert, oriented 3. Pleasant, well groomed, interactive. HEAD: Normocephalic, atraumatic ENT: Mucous membranes dry, oropharynx unremarkable, External ear exam unremarkable EYES: PERRL, EOMI NECK: Full ROM, no PAULINO, no menigismus CHEST/RESP: Tender left lower rib cage, diminished breath sounds with question coarse basilar breath sounds versus patient coughing. CARDIOVASCULAR: Distant RRR, no murmur, rub stephani. 2+ Rad pulse bilateral ABDOMEN: Soft, tender left upper quadrant, no mass. +Bowel sounds EXT: Full ROM, no edema, no rash Neuro: Grossly normal neurologic exam, conversant, interactive. Psych: Speech fluent, thoughts congruent, affect normal Course Vital Signs Vital signs: Vital Signs Temperature 36.7 C 03/04/21 09:50 Pulse 110 H 03/04/21 09:50 Respiratory Rate 19 03/04/21 09:50 Blood Pressure 152/74 H 03/04/21 09:50 Pulse Oximetry 97 03/04/21 09:50 Temperature 36.7 C 03/04/21 09:50 Temperature Source Skin 03/04/21 09:50 Pulse 110 H 03/04/21 09:50 Respiratory Rate 19 03/04/21 09:50 Respiratory Effort 03/04/21 09:50 Blood Pressure 152/74 H 03/04/21 09:50 Blood Pressure Position Sitting 03/04/21 09:50 Pulse Oximetry 97 03/04/21 09:50 Oxygen Delivery Method Room Air 03/04/21 09:50 Oxygen Flow Rate 0 03/04/21 09:50 Pain Level 7 03/04/21 09:50
[2021-03-04] MEDS: MORPHine 10 MG/ML VIAL 5 MG IVP (10:26)
[2021-03-04] MEDS: Pantoprazole 40 MG VIAL IVP (10:29)
[2021-03-04] MEDS: Normal Saline Flush 10 ML SYR IVP ×2 (10:30→13:06)
[2021-03-04 10:36] LABS: Abs Immature Grans 0.03 10^3/uL (0.0-0.06); Absolute Basophil Count 0.02 10^3/uL (0.0-0.2); Absolute Lymphocyte Count 1.08 10^3/uL (1.2-3.4); Absolute Monocyte Count 1.08 10^3/uL (0.1-0.8); Absolute Neutrophil Count 4.43 10^3/uL (1.2-6.7); Basophils % 0.3; Eosinophils % 1.5; HCT 40.8 % (40.0-50.0); HGB 13.2 g/dL (13.5-17.5); Immature Grans % 0.4; MCHC 32.4 % (32.0-36.0); MCV 95.8 fL (80-95); MPV 9.8 fL (8.0-11.0); Neutrophils % 65.8; Nucleated RBC 0 %; Platelet Count 181 10^3/uL (130-400); RBC 4.26 10^6/uL (4.36-5.78); RDW 16.6 % (11.8-14.1); RDW-SD 58.4 fL; WBC 6.74 10^3/uL (4.4-10.8)
[2021-03-04 10:55] LABS: Magnesium 2.2 mg/dL (1.8-2.4)
[2021-03-04 10:59] LABS: ALT 17 U/L (16-63); AST 20 U/L (15-37); Alkaline Phosphatase 92 U/L (46-116); Anion Gap 5.5 mmol/L (3-11); BUN 28 mg/dL (7-18); Bilirubin, Total 1.2 mg/dL (0.2-1.0); CO2 29.5 mmol/L (21.0-32.0); CREATININE 1.6 mg/dL (0.70-1.30); Calcium 8.9 mg/dL (8.5-10.1); Chloride 106 mmol/L (98-107); Estimated GFR 41.39 (mL/min/1.73m2); Glucose 100 mg/dL (74-106); Potassium 4.4 mmol/L (3.5-5.1); Sodium 141 mmol/L (136-145); Total Protein 6.9 g/dL (6.4-8.2)
[2021-03-04] MEDS: Normal Saline 500 ML IV (11:05)
--- NOTE | 2021-03-04 12:30 | DI.CT_ITS ---
Exam(s) CT CHEST/ABD/PEL W EXAM: CT CHEST/ABD/PEL W CLINICAL HISTORY: Cough, LLower chest, LUQ adb pain TECHNIQUE: Imaging Protocol: Axial computed tomography images with coronal and sagittal reformatted images were created and reviewed CONTRAST MATERIAL: Intravenous: Omnipaque 350 Contrast volume:100 mL Oral: No CT CT ABDOMEN PELVIS W from 09/07/[address] ABDOMEN PELVIS W from 09/07/[address] ABDOMEN PELVIS W from 09/11/[address] CHEST PE ABD PELVIS W from 01/31/[address] CHEST PE ABD PELVIS W from 01/31/2021 FINDINGS: CHEST: Tracheobronchial tree: Patent where visualized. Pulmonary parenchyma: Mild predominantly peripheral and basilar interstitial disease. Ground-glass o pacities in the right mid lung in the left lingula. These are nonspecific but may represent pulmonar y edema, hemorrhage or an infectious or inflammatory process. Mild centrilobular pulmonary emphysema . Visualized thyroid gland: The right thyroid gland appears grossly unremarkable. The left thyroid gla nd appears absent. Mediastinum and [place]: Stable mildly enlarged mediastinal and hilar lymph nodes. They appear grossly unchanged since 05/22/2018. Pleura: No effusion or pneumothorax. Heart: Cardiomegaly. Coronary artery calcification. No pericardial effusion.Cardiac pacing wires in good position. Aorta: Thoracic aorta non-dilated. Atherosclerosis. Lymph nodes: Within normal limits. Soft tissues: Unremarkable. Bones:Within normal limits. ABDOMEN: Liver: Normal density. No measurable mass. Portal, Superior Mesenteric, and Splenic Veins: Unremarkable. Gallbladder and Biliary Tract: Status post cholecystectomy. No significant biliary ductal dilatation . Pancreas: Normal density, no abnormal calcifications or inflammatory process. Spleen: Calcified granuloma. Adrenals: No masses seen. Kidneys: Normal size, contour and axis. No radiodense stones or obstructive uropathy. Bilateral simpl e renal cysts. No follow-up is recommended. Abdominal Aorta: Abdominal portion non-dilated. Moderate atherosclerosis. Bowel: No evidence of bowel obstruction. Mild wall thickening in the proximal jejunum in distal duod enum. No evidence of appendicitis. There is diverticulosis seen in the colon, particularly the sigm oid colon. There is no evidence of acute diverticulitis. Peritoneal Cavity: No ascites, collection or mesenteric inflammatory response. No free air. Lymph Nodes: Within normal limits. Bones: Within normal limits. Soft Tissues: Bilateral fat containing inguinal hernia. PELVIS: Bladder: There is a suprapubic catheter. Reproductive Organs: Markedly enlarged prostate gland. Lymph Nodes: Within normal limits. Bones: Within normal limits. IMPRESSION: 1. Mild thickening of the wall of the proximal jejunum and distal duodenum. This may represent a mil d enteritis. Please correlate clinically. 2. Nonspecific ground-glass opacities in the left lingula and the right middle lobe. Differential co nsiderations include hemorrhage, edema, or an infectious or inflammatory process. 3. Results of this exam have been verbally communicated with provider. RADIATION DOSE DELIVERED: 1,399.13mGy.cm Total DLP DATA REPOSITORY: All CT scans at this facility are submitted to the National Radiology Data Registry (NRDR) Dose Index Registry (DIR) with the [employer] [place] [employer] ([employer]). RADIATION OPTIMIZATION: All CT scans at this facility use at least one of these dose optimization te chniques: automated exposure control; mA and/or kV adjustment per patient size (includes targeted exa ms where dose is matched to clinical indication); or iterative reconstruction.
[2021-03-04] MEDS: Omnipaque 350 MG/ML 100 ML BTL IJ (12:34)
[2021-03-04] MEDS: MORPHine 4 MG/ML SYR IVP (13:05)
[2021-03-04] MEDS: Cefdinir 300 MG CAP PO (13:25)
--- NOTE | 2021-03-19 22:54 | ED.GENADUL_ITS ---
Discharge Plan Disposition Patient Disposition: HOME Condition: Improving Discharge Details Clinical Impression: Pneumonia Primary Care Provider: Lorena Chong ED Provider: Hardy Frederick Home Meds and New Rx's Prescriptions: Continued potassium chloride [Klor-Con M20] 20 MEQ tablet,ER particles/crystals 20 meq PO DAILY AM Qty: 30 RF: 0 mirtazapine [Remeron] 15 MG tablet 15 mg PO HS RF: 0 levothyroxine 75 MCG tablet 75 mcg PO DAILY@0600 RF: 0 cholecalciferol (vitamin D3) 1,000 UNITS tablet 1 tab PO DAILY RF: 0 bisacodyl 10 MG suppository 10 mg UT DAILY PRNRF: 0 Fluticasone Propionate [24 Hour Allergy] 9.9 ML [place].Susp 9.9 ml NS BID RF: 0 lorazepam [Ativan] 0.5 mg Tablet 0.5 mg PO TID RF: 0 lactulose 10 gram/15 mL Solution 20 g PO DAILY PRN (Reason: Constipation) RF: 0 latanoprost 0.005 % Drops 1 drp ophthalmic (eye) HS RF: 0 brinzolamide [Azopt] 1 % Drops,Suspension 1 drp ophthalmic (eye) DAILY RF: 0 magnesium hydroxide 400 mg/5 mL Suspension 30 ml PO DAILY PRNRF: 0 albuterol sulfate [Ventolin HFA] 90 mcg/actuation Hfa Aerosol Inhaler 2 puff INHALATION QID PRN PRNRF: 0 Spiriva with HandiHaler 18 mcg capsule, w/inhalation device 1 cap INHALATION DAILY RF: 0 pantoprazole 40 MG tablet,delayed release (DR/EC) 40 mg PO DAILY RF: 0 metoprolol tartrate 50 MG tablet 75 mg PO BID RF: 0 Flovent HFA 120 PUFF HFA aerosol inhaler 2 puff Inhalation BID RF: 0 ropinirole 1 mg tablet 1 mg PO HS RF: 0 furosemide 20 MG tablet 40 mg PO DAILY RF: 0 sennosides [senna] 8.6 mg Tablet 8.6 mg PO HS RF: 0 docusate sodium [Colace] 100 mg Capsule 100 mg PO BID RF: 0 ondansetron 4 mg Tablet,Disintegrating 4 mg PO QID PRNRF: 0 ursodiol 250 mg tablet 250 mg PO BID RF: 0 multivitamin [Tab-A-Raghu] Tablet 1 tab PO DAILY RF: 0 Myrbetriq 50 mg Tablet Extended Release 24 Hr 50 mg PO DAILY Qty: 30 RF: 1 morphine concentrate 100 mg/5 mL (20 mg/mL) solution See Rx Instructions .ROUTE .COMPLEX RF: 0 nitroglycerin 0.4 mg tablet, sublingual 0.4 mg sublingual PRN PRNRF: 0 Pradaxa 75 mg capsule 75 mg PO BID RF: 0 acetaminophen [Tylenol] 325 MG tablet 650 mg PO Q6H PRN PRNRF: 0 oxycodone 5 mg Capsule 5 mg PO QID PRNRF: 0 pantoprazole [address] Venegas Susp In Packet 40 mg PO DAILY RF: 0 sucralfate [Carafate] 1 gram tablet 1 gm PO QACHS Qty: 14 RF: 0 No Action ranitidine HCl 150 mg Tablet 150 mg PO BID RF: 0 lidocaine 5 % adhesive patch,medicated 1 patch DAILY RF: 0 Discharge Instructions Additional Instructions: We will start you on antibiotics for what appears to be an early pneumonia. Your work-up today included blood work as well as CT imaging of the chest, abdomen and pelvis. Please continue your prescribed medications including your morphine which you may take twice up to 3 times per day. This will help both your cough and your discomfort. I did discuss your case with Dr. Adames today, and she will arrange a short-term follow-up at your home with the palliative care team. Return to the emergency department for any acute concerns. Discharge Data Discharge Date/Time-TO BE ENTERED AT DEPARTURE: 03/04/21 14:28 HPI General Mode of arrival: ambulatory . Date/Time Provider Initiated Documentation: 03/04/21 11:02 . Limitations to Documentation: no limitations . Information obtained by: patient . History of Present Illness and is localized to the chest, abdomen and left. No relieving factors improve symptom(s), Other factors that worsen symptoms (Seems to be brought on by coughing) . Patient notes cough and other (Denies weight gain or peripheral edema); denies fever/chills, loss of appetite and nausea/vomiting. Patient did receive the following treatments prior to arrival, none Related Data Home Medications Medication Instructions Recorded Confirmed potassium chloride [Klor-Con M20] 20 meq PO DAILY AM #30 tabcr 07/18/15 03/04/21 mirtazapine [Remeron] 15 mg PO HS 03/04/16 03/04/21 levothyroxine 75 mcg PO DAILY@0600 tab 04/13/16 03/04/21 furosemide 40 mg PO DAILY 10/22/16 03/04/21 cholecalciferol (vitamin D3) 1 tab PO DAILY 08/01/17 03/04/21 Fluticasone Propionate [24 Hour 9.9 ml NS BID 12/30/17 03/04/21 Allergy] bisacodyl 10 mg UT DAILY PRN 12/30/17 03/04/21 lactulose 20 g PO DAILY PRN 10/29/18 03/04/21 lorazepam [Ativan] 0.5 mg PO TID 10/29/18 03/04/21 docusate sodium [Colace] 100 mg PO BID 11/30/18 03/04/21 ondansetron 4 mg PO QID PRN 11/30/18 03/04/21 sennosides [senna] 8.6 mg PO HS 11/30/18 03/04/21 ursodiol 250 mg PO BID 03/16/20 03/04/21 multivitamin [Tab-A-Raghu] 1 tab PO DAILY 05/12/20 03/04/21 Flovent HFA 2 puff INHALATION BID 09/04/20 03/04/21 Spiriva with HandiHaler 1 cap INHALATION DAILY 09/04/20 01/31/21 albuterol sulfate [Ventolin HFA] 2 puff INHALATION QID PRN PRN 09/04/20 03/04/21 brinzolamide [Azopt] 1 drp OPHTHALMIC (EYE) DAILY 09/04/20 03/04/21 latanoprost 1 drp OPHTHALMIC (EYE) HS 09/04/20 03/04/21 magnesium hydroxide 30 ml PO DAILY PRN 09/04/20 03/04/21 metoprolol tartrate 75 mg PO BID 09/04/20 01/31/21 pantoprazole 40 mg PO DAILY 09/04/20 03/04/21 ropinirole 1 mg PO HS 09/06/20 03/04/21 Myrbetriq 50 mg PO DAILY #30 tab 09/13/20 03/04/21 Pradaxa 75 mg PO BID 11/05/20 03/04/21 acetaminophen [Tylenol] 650 mg PO Q6H PRN PRN 11/05/20 03/04/21 morphine concentrate See Rx Instructions .ROUTE .COMPLEX 11/05/20 03/04/21 nitroglycerin 0.4 mg SUBLINGUAL PRN PRN 11/05/20 03/04/21 oxycodone 5 mg PO QID PRN 01/31/21 03/04/21 pantoprazole 40 mg PO DAILY 01/31/21 03/04/21 sucralfate [Carafate] 1 gm PO QACHS #14 tab 01/31/21 03/04/21 lidocaine 1 patch DAILY 03/04/21 03/04/21 ranitidine HCl 150 mg PO BID 03/04/21 03/04/21 Previous Rx's Medication Instructions Recorded potassium chloride [Klor-Con M20] 20 meq PO DAILY AM #30 tabcr 07/18/15 levothyroxine 75 mcg PO DAILY@0600 tab 04/13/16 Myrbetriq 50 mg PO DAILY #30 tab 09/13/20 sucralfate [Carafate] 1 gm PO QACHS #14 tab 01/31/21 Allergies Allergy/AdvReac Type Severity Reaction Status Date / Time banana Allergy Mild Skin Rash Unverified 03/04/21 09:57 formoterol fumarate AdvReac Intermediate Ineffective Unverified 03/04/21 09:57 [From Dulera] per Pt mometasone furoate AdvReac Intermediate Ineffective Unverified 03/04/21 09:57 [From Dulera] per Pt hydrocodone AdvReac Unknown Dizziness/L Unverified 03/04/21 09:57 ightheade General Stated Complaint: SOB CINTIA: 2 PFSH Medical History All medications reviewed Anemia associated with acute blood loss Anxiety Atrial fibrillation Bilateral hydrocele BPH (benign prostatic hyperplasia) Chronic GERD Chronic kidney disease (CKD) Chronic lower back pain Chronic obstructive lung disease Chronic pain Diverticulosis of large intestine without diverticulitis Dysphagia Essential hypertension GERD (gastroesophageal reflux disease) Glaucoma Insomnia Lives alone with help available neighbor lives next door Polyp of colon Spinal stenosis of lumbar region Suprapubic catheter Tachycardia-bradycardia Surgical History Colonoscopy - MAC Pacemaker S/P TURP Family History Niece No problems noted. Social History Smoking/Tobacco Use Status: Former Tobacco Use Smoking risk assessment performed?: Yes Alcohol Intake: former Drug use: Never Substance use type: does not use Caregiver/Support person: No Household members: none Housing: other Details: lives in basement of old farmhouse; afraid of going upstairs Number of Children: 0 Communication Needs: Hard of Hearing and Corrective Lenses Education Level: vocational Do you need help understanding health information?: Always current occupation: retired Pets and animals: No Current gender identity: male What is your relationship status?: never How often do you talk on the phone with friends or family?: three or more times per week How often do you get together with friends or relatives?: twice per week Panel score (0-1 are the most socially isolated patients): 1 What type of physical activity do you participate in: none and sedentary lifestyle Special debi needs: No Agree to transfusion: Yes Carbon monox detector in home: No Firearms in home: Yes Do you feel safe at home: Yes Do you feel safe in your relationship?: Yes Additional Social history: Brenden lives in the basement of an old delapidated farmhouse. He heats with wood but leaves his door open so he can breathe. Friend Casa lives about 100-[address] yards away. He checks on Brenden regularly--chops, stacks and loads his wood for him. Brenden's closest living relative is his grandniece, Taisha Montes, who is a Home Health nurse. He is her grandmother's baby brother. No one else is alive in his generation. He never . No children. Has always lived on his own terms. Not going anywhere. Course Vital Signs Vital signs: Vital Signs Temperature 36.7 C 03/04/21 09:50 Pulse 110 H 03/04/21 09:50 Respiratory Rate 19 03/04/21 09:50 Blood Pressure 152/74 H 03/04/21 09:50 Pulse Oximetry 97 03/04/21 09:50 Temperature 36.4 C L 03/04/21 14:00 Temperature Source Skin 03/04/21 09:50 Pulse 93 H 03/04/21 14:00 Pulse 102 H 03/04/21 13:17 Respiratory Rate 26 H 03/04/21 14:00 Respiratory Effort Non-Labored 03/04/21 10:32 Respiratory Depth Normal 03/04/21 10:32 Respiratory Pattern Irregular 03/04/21 10:32 Blood Pressure 123/72 03/04/21 14:00 Blood Pressure Mean 86 03/04/21 13:17 Blood Pressure Position Sitting 03/04/21 09:50 Pulse Oximetry 94 03/04/21 14:00 Oxygen Delivery Method Room Air 03/04/21 09:50 Oxygen Flow Rate 0 03/04/21 09:50 Pain Level 4 03/04/21 14:00 Lab/Test Results Lab/Test Results: Laboratory Tests Range/Units 03/04/21 03/04/21 03/04/21 10:24 10:24 10:24 WBC (4.4-10.8) 10^3/uL 6.74 RBC (4.36-5.78) 10^6/uL 4.26 L Hgb (13.5-17.5) g/dL 13.2 L Hct (40.0-50.0) % 40.8 MCV (80-95) fL 95.8 H MCH (27.0-33.0) pg 31.0 MCHC (32.0-36.0) % 32.4 RDW (11.8-14.1) % 16.6 H Plt Count (130-400) 10^3/uL 181 MPV (8.0-11.0) fL 9.8 Immature Gran % 0.4 Neutrophils % 65.8 Lymphocytes % 16.0 Monocytes % 16.0 Eosinophils % 1.5 Basophils % 0.3 Nucleated RBC % % 0 Absolute Neutrophils (1.2-6.7) 10^3/uL 4.43 Absolute Lymphocytes (1.2-3.4) 10^3/uL 1.08 L Absolute Monocytes (0.1-0.8) 10^3/uL 1.08 H Absolute Eosinophils (0.0-0.7) 10^3/uL 0.10 Absolute Basophils (0.0-0.2) 10^3/uL 0.02 Sodium (136-145) mmol/L 141 Potassium (3.5-5.1) mmol/L 4.4 Chloride (98-107) mmol/L 106 Carbon Dioxide (21.0-32.0) mmol/L 29.5 Anion Gap (3-11) mmol/L 5.5 BUN (7-18) mg/dL 28 H Creatinine (0.70-1.30) mg/dL 1.6 H Estimated GFR/1.73 m2 (mL/min/1.73m2) 41.39 Glucose (74-106) mg/dL 100 Calcium (8.5-10.1) mg/dL 8.9 Magnesium (1.8-2.4) mg/dL 2.2 Total Bilirubin (0.2-1.0) mg/dL 1.2 H AST (15-37) U/L 20 ALT (16-63) U/L 17 Alkaline Phosphatase (46-116) U/L 92 Total Protein (6.4-8.2) g/dL 6.9 Albumin (3.4-5.0) g/dL 3.0 L
== END 2021-03-04 14:28 | disposition home or self-care (01) ==
PROVIDERS: Emergency Provider Emergency Medicine; PCP Family Medicine
DX: J18.9 Pneumonia, unspecified organism (principal)
CPT/HCPCS: 36415; 74177; 80053; 96361; 96374; 96376; 99285; 71260; 83735; 85025; 99284; J2270; J3490

== ENCOUNTER 2021-03-21 10:08 | Inpatient (IN) | payer MEDICARE, MEDICAID, SELFPAY ==
[2021-03-21 10:14] VITALS: BP 128/85; PULSE 79; TEMP 36.4; O2SAT 94
--- NOTE | 2021-03-21 10:45 | DI.CT_ITS ---
Exam(s) CT ABDOMEN PELVIS W EXAM: CT ABDOMEN PELVIS W CLINICAL HISTORY: abdominal pain, lower TECHNIQUE: Imaging Protocol: Axial computed tomography images with coronal and sagittal reformatted images were created and reviewed CONTRAST MATERIAL: Intravenous: Omnipaque 350 Contrast volume:100 mL Oral: No COMPARISON: CT CT CHEST/ABD/PEL W from 03/04/2021 FINDINGS: The examination is limited due to patient motion artifact. ABDOMEN: Lung Bases: Chronic parenchymal changes are seen in the lung bases. No evidence of an acute infiltra te. Liver: No hepatomegaly. No measurable mass. Portal, Superior Mesenteric, and Splenic Veins: Unremarkable. Gallbladder and Biliary Tract: Status post cholecystectomy. No biliary ductal dilatation. Pancreas: Normal density, no abnormal calcifications or inflammatory process. Spleen: Normal. Calcified granuloma. Adrenals: No masses seen. Kidneys: Normal size, contour and axis. No radiodense stones or obstructive uropathy. Stable renal cy sts. Abdominal Aorta: Abdominal portion non-dilated. Atherosclerosis. Bowel: No obstruction or bowel wall thickening. Appendix is unremarkable. Diverticulosis but no evide nce of acute diverticulitis. Peritoneal Cavity: No ascites, collection or mesenteric inflammatory response. No free air. Lymph Nodes: Within normal limits. Bones: Within normal limits for the patient's age. Soft Tissues: Bilateral fat containing inguinal hernias. PELVIS: Bladder: The patient has a suprapubic catheter. The urinary bladder is empty. Reproductive Organs: Prostatomegaly. Lymph Nodes: Within normal limits. Bones: Within normal limits for the patient's age. IMPRESSION: 1. No acute abdominal or pelvic findings. 2. Results of this exam have been verbally communicated with provider. RADIATION DOSE DELIVERED: 894.2mGy.cm Total DLP DATA REPOSITORY: All CT scans at this facility are submitted to the National Radiology Data Registry (NRDR) Dose Index Registry (DIR) with the [employer] ([employer]). RADIATION OPTIMIZATION: All CT scans at this facility use at least one of these dose optimization te chniques: automated exposure control; mA and/or kV adjustment per patient size (includes targeted exa ms where dose is matched to clinical indication); or iterative reconstruction.
--- NOTE | 2021-03-21 10:45 | RT.EKG_ITS ---
APPROVED REPORT Exam: Resting ECG Reason for Exam: abdominal pain Patient Location: E HR:86 bpm ECG Measurements Heart Rate 86 AXIS MO [id number] P [id number] QRSd 95 QRS 18 QT 383 T 24 QTc 490 Conclusion Atrial fibrillation...V-rate 69-101, irreg A-activity Ventricular premature complex...V complex w/ short R-R interval significant motion artifact but no obvious acute ischemic findings
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
[2021-03-21 11:25] LABS: Abs Immature Grans 0.06 10^3/uL (0.0-0.06); Absolute Basophil Count 0.05 10^3/uL (0.0-0.2); Absolute Eosinophil Count 0.35 10^3/uL (0.0-0.7); Absolute Monocyte Count 1.08 10^3/uL (0.1-0.8); Basophils % 0.6; Eosinophils % 4.3; HGB 13.1 g/dL (13.5-17.5); Immature Grans % 0.7; Lymphocytes % 9.8; MCH 30.3 pg (27.0-33.0); MCV 94.9 fL (80-95); MPV 9.7 fL (8.0-11.0); Monocytes % 13.3; Neutrophils % 71.3; Nucleated RBC 0 %; Platelet Count 358 10^3/uL (130-400); RBC 4.32 10^6/uL (4.36-5.78); RDW 15.8 % (11.8-14.1); RDW-SD 55.4 fL; WBC 8.14 10^3/uL (4.4-10.8)
[2021-03-21 11:37] LABS: Bilirubin Negative (Negative); Blood Small (Negative); Clarity Sl Cloudy (Clear); Glucose Negative (Negative); Ketones Negative (Negative); Leukocyte Esterase Small (Negative); Nitrite Positive (Negative); Urobilinogen 0.2 EU/dL (Up TO 0.2); pH 5.5 (5-8)
[2021-03-21 11:45] LABS: Bacteria Moderate HPF (Negative); Crystals Negative HPF (Negative); Epithelial Cells Few HPF (Negative); Other Cells Few Yeast (Negative); WBC 20-50 HPF (0-5)
[2021-03-21 11:46] LABS: C & S Indicated? Yes; Casts Negative LPF (Negative); Mucus Negative (Negative)
[2021-03-21 11:50] LABS: ALT 18 U/L (16-63); AST 24 U/L (15-37); Albumin 2.7 g/dL (3.4-5.0); Alkaline Phosphatase 86 U/L (46-116); Anion Gap 6.4 mmol/L (3-11); BUN 22 mg/dL (7-18); Bilirubin, Total 0.9 mg/dL (0.2-1.0); CO2 28.6 mmol/L (21.0-32.0); CREATININE 1.6 mg/dL (0.70-1.30); Calcium 9.1 mg/dL (8.5-10.1); Chloride 104 mmol/L (98-107); Estimated GFR 41.29 (mL/min/1.73m2); Glucose 92 mg/dL (74-106); Lipase 86 U/L (73-393); Potassium 3.8 mmol/L (3.5-5.1); Sodium 139 mmol/L (136-145); Total Protein 7.4 g/dL (6.4-8.2)
[2021-03-21 11:51] LABS: Troponin I < 0.05 ng/mL (<0.06)
[2021-03-21] MEDS: Omnipaque 350 MG/ML 100 ML BTL IJ (12:17)
[2021-03-21 13:34] VITALS: BP 139/73; PULSE 91; RESP 20; O2SAT 94
[2021-03-21] MEDS: cefTRIAXone 1 GM/50 ML BAG IVPB ×2 (13:41→17:08)
[2021-03-21 14:12] LABS: Source Nasal/Nares
--- NOTE | 2021-03-21 14:32 | ED.GENADUL_ITS ---
Discharge Plan Disposition Patient Disposition: HOME Condition: Serious Discharge Details Clinical Impression: Suprapubic catheter, UTI (urinary tract infection), Generalized weakness Primary Care Provider: Lorena Chong ED Provider: Niesha Reed Home Meds and New Rx's Prescriptions: No Action potassium chloride [Klor-Con M20] 20 MEQ tablet,ER particles/crystals 20 meq PO DAILY AM Qty: 30 RF: 0 mirtazapine [Remeron] 15 MG tablet 15 mg PO HS RF: 0 levothyroxine 75 MCG tablet 75 mcg PO DAILY@0600 RF: 0 cholecalciferol (vitamin D3) 1,000 UNITS tablet 1 tab PO DAILY RF: 0 bisacodyl 10 MG suppository 10 mg ID DAILY PRNRF: 0 Fluticasone Propionate [24 Hour Allergy] 9.9 ML Corinne.Susp 9.9 ml NS BID RF: 0 lorazepam [Ativan] 0.5 mg Tablet 0.5 mg PO TID RF: 0 lactulose 10 gram/15 mL Solution 20 g PO DAILY PRN (Reason: Constipation) RF: 0 latanoprost 0.005 % Drops 1 drp ophthalmic (eye) HS RF: 0 brinzolamide [Azopt] 1 % Drops,Suspension 1 drp ophthalmic (eye) DAILY RF: 0 magnesium hydroxide 400 mg/5 mL Suspension 30 ml PO DAILY PRNRF: 0 albuterol sulfate [Ventolin HFA] 90 mcg/actuation Hfa Aerosol Inhaler 2 puff INHALATION QID PRN PRNRF: 0 Spiriva with HandiHaler 18 mcg capsule, w/inhalation device 1 cap INHALATION DAILY RF: 0 pantoprazole 40 MG tablet,delayed release (DR/EC) 40 mg PO DAILY RF: 0 metoprolol tartrate 50 MG tablet 75 mg PO BID RF: 0 Flovent HFA 120 PUFF HFA aerosol inhaler 2 puff Inhalation BID RF: 0 ropinirole 1 mg tablet 1 mg PO HS RF: 0 furosemide 20 MG tablet 40 mg PO DAILY RF: 0 sennosides [senna] 8.6 mg Tablet 8.6 mg PO HS RF: 0 docusate sodium [Colace] 100 mg Capsule 100 mg PO BID RF: 0 ondansetron 4 mg Tablet,Disintegrating 4 mg PO QID PRNRF: 0 ursodiol 250 mg tablet 250 mg PO BID RF: 0 multivitamin [Tab-A-Raghu] Tablet 1 tab PO DAILY RF: 0 Myrbetriq 50 mg Tablet Extended Release 24 Hr 50 mg PO DAILY Qty: 30 RF: 1 morphine concentrate 100 mg/5 mL (20 mg/mL) solution See Rx Instructions .ROUTE .COMPLEX RF: 0 nitroglycerin 0.4 mg tablet, sublingual 0.4 mg sublingual PRN PRNRF: 0 Pradaxa 75 mg capsule 75 mg PO BID RF: 0 acetaminophen [Tylenol] 325 MG tablet 650 mg PO Q6H PRN PRNRF: 0 oxycodone 5 mg Capsule 5 mg PO QID PRNRF: 0 pantoprazole [address] For Susp In Packet 40 mg PO DAILY RF: 0 sucralfate [Carafate] 1 gram tablet 1 gm PO QACHS Qty: 14 RF: 0 ranitidine HCl 150 mg Tablet 150 mg PO BID RF: 0 lidocaine 5 % adhesive patch,medicated 1 patch DAILY RF: 0 tramadol 50 mg Tablet 50 mg PO TID PRNRF: 0 Acidophilus-Pectin 75 million cell -100 mg Capsule 1 cap PO TID RF: 0 Medical Decision Making Patient is alert, oriented, of decisional capacity, he is quite weak and unable to ambulate independently and does live at home independently He is not safe for discharge home, I will treat him for urinary tract infection, his diagnostic labs do not show significant change CT abdomen and pelvis is within normal limits He has no neurological complaints, he has generalized weakness on exam, no indication for CT head at this time denies fall or recent injury After reviewing prior urine culture I did start patient on ceftriaxone 1 g, he does not meet Sirs or sepsis criteria Case was discussed with Dr. Raya, admitting hospitalist Agreeable to admission at this time Vitals stable throughout encounter Patient does have history of recurrent visits for similar symptoms and has had numerous CT images Looks like he was treated for pneumonia several weeks ago in the emergency room on cefdinir Suprapubic catheter was changed in the emergency room Medical Records Medical records reviewed: Yes I reviewed the patient's medical records. Lab Data Lab results reviewed: Yes I reviewed the patient's lab results. HPI General Mode of arrival: ambulatory . Date/Time Provider Initiated Documentation: 03/21/21 10:40 . Limitations to Documentation: no limitations . Information obtained by: patient . 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 Patient states that he is also been quite weak. He denies any chest pain or shortness of breath. He states he fell several months ago but has not hit his head since that time. He denies any chest pain or shortness of breath. He denies any dizziness. He feels generally weak. He is have a suprapubic catheter for an extended period of time although he cannot tell me why he has the catheter. He does live independently. He states he called EMS today because the pain was much worse than typical. He states that he has been able to use the catheter without incident. He denies any fever or chills. He denies any nausea, vomiting, diarrhea. Related Data Home Medications Medication Instructions Recorded Confirmed potassium chloride [Klor-Con M20] 20 meq PO DAILY AM #30 tabcr 07/18/15 03/21/21 mirtazapine [Remeron] 15 mg PO HS 03/04/16 03/21/21 levothyroxine 75 mcg PO DAILY@0600 tab 04/13/16 03/21/21 furosemide 40 mg PO DAILY 10/22/16 03/21/21 cholecalciferol (vitamin D3) 1 tab PO DAILY 08/01/17 03/21/21 Fluticasone Propionate [24 Hour 9.9 ml NS BID 12/30/17 03/21/21 Allergy] bisacodyl 10 mg ID DAILY PRN 12/30/17 03/21/21 lactulose 20 g PO DAILY PRN 10/29/18 03/21/21 lorazepam [Ativan] 0.5 mg PO TID 10/29/18 03/21/21 docusate sodium [Colace] 100 mg PO BID 11/30/18 03/21/21 ondansetron 4 mg PO QID PRN 11/30/18 03/21/21 sennosides [senna] 8.6 mg PO HS 11/30/18 03/21/21 ursodiol 250 mg PO BID 03/16/20 03/21/21 multivitamin [Tab-A-Raghu] 1 tab PO DAILY 05/12/20 03/21/21 Flovent HFA 2 puff INHALATION BID 09/04/20 03/21/21 Spiriva with HandiHaler 1 cap INHALATION DAILY 09/04/20 03/21/21 albuterol sulfate [Ventolin HFA] 2 puff INHALATION QID PRN PRN 09/04/20 03/21/21 brinzolamide [Azopt] 1 drp OPHTHALMIC (EYE) DAILY 09/04/20 03/21/21 latanoprost 1 drp OPHTHALMIC (EYE) HS 09/04/20 03/21/21 magnesium hydroxide 30 ml PO DAILY PRN 09/04/20 03/21/21 metoprolol tartrate 75 mg PO BID 09/04/20 03/21/21 pantoprazole 40 mg PO DAILY 09/04/20 03/04/21 ropinirole 1 mg PO HS 09/06/20 03/21/21 Myrbetriq 50 mg PO DAILY #30 tab 09/13/20 03/21/21 Pradaxa 75 mg PO BID 11/05/20 03/21/21 acetaminophen [Tylenol] 650 mg PO Q6H PRN PRN 11/05/20 03/21/21 morphine concentrate See Rx Instructions .ROUTE .COMPLEX 11/05/20 03/21/21 nitroglycerin 0.4 mg SUBLINGUAL PRN PRN 11/05/20 03/21/21 oxycodone 5 mg PO QID PRN 01/31/21 03/21/21 pantoprazole 40 mg PO DAILY 01/31/21 03/21/21 sucralfate [Carafate] 1 gm PO QACHS #14 tab 01/31/21 03/21/21 lidocaine 1 patch DAILY 03/04/21 03/21/21 ranitidine HCl 150 mg PO BID 03/04/21 03/21/21 Lactobacillus acidoph-pectin 1 cap PO TID 03/21/21 03/21/21 [Acidophilus-Pectin] tramadol 50 mg PO TID PRN 03/21/21 03/21/21 Previous Rx's Medication Instructions Recorded potassium chloride [Klor-Con M20] 20 meq PO DAILY AM #30 tabcr 07/18/15 levothyroxine 75 mcg PO DAILY@0600 tab 04/13/16 Myrbetriq 50 mg PO DAILY #30 tab 09/13/20 sucralfate [Carafate] 1 gm PO QACHS #14 tab 01/31/21 Allergies Allergy/AdvReac Type Severity Reaction Status Date / Time banana Allergy Mild Skin Rash Unverified 03/04/21 09:57 formoterol fumarate AdvReac Intermediate Ineffective Unverified 03/04/21 09:57 [From Dulera] per Pt mometasone furoate AdvReac Intermediate Ineffective Unverified 03/04/21 09:57 [From Dulera] per Pt hydrocodone AdvReac Unknown Dizziness/L Unverified 03/04/21 09:57 ightheade General Stated Complaint: Abd Prob CINTIA: 3 Review of Systems All systems reviewed & are unremarkable except as noted in HPI and below PFSH Medical History All medications reviewed Anemia associated with acute blood loss Anxiety Atrial fibrillation Bilateral hydrocele BPH (benign prostatic hyperplasia) Chronic GERD Chronic kidney disease (CKD) Chronic lower back pain Chronic obstructive lung disease Chronic pain Diverticulosis of large intestine without diverticulitis Dysphagia Essential hypertension GERD (gastroesophageal reflux disease) Glaucoma Insomnia Lives alone with help available neighbor lives next door Polyp of colon Spinal stenosis of lumbar region Suprapubic catheter Tachycardia-bradycardia Surgical History Colonoscopy - MAC Pacemaker S/P TURP Family History Niece No problems noted. Social History Smoking/Tobacco Use Status: Former Tobacco Use Smoking risk assessment performed?: Yes Alcohol Intake: former Drug use: Never Substance use type: does not use Caregiver/Support person: No Household members: none Housing: other Details: lives in basement of old farmhouse; afraid of going upstairs Number of Children: 0 Communication Needs: Hard of Hearing and Corrective Lenses Education Level: vocational Do you need help understanding health information?: Always current occupation: retired Pets and animals: No Current gender identity: male What is your relationship status?: never How often do you talk on the phone with friends or family?: three or more times per week How often do you get together with friends or relatives?: twice per week Panel score (0-1 are the most socially isolated patients): 1 What type of physical activity do you participate in: none and sedentary lifestyle Special debi needs: No Agree to transfusion: Yes Carbon monox detector in home: No Firearms in home: Yes Do you feel safe at home: Yes Do you feel safe in your relationship?: Yes Additional Social history: Brenden lives in the basement of an old delapidated farmhouse. He heats with wood but leaves his door open so he can breathe. Friend Casa lives about 100-200 yards away. He checks on Brenden regularly--chops, stacks and loads his wood for him. Brenden's closest living relative is his grandniece, Taisha Montes, who is a Home Health nurse. He is her grandmother's baby brother. No one else is alive in his generation. He never . No children. Has always lived on his own terms. Not going anywhere. Exam Const General: cooperative Orientation: alert and oriented x3 HENMT Mouth: oral mucosae normal Eyes Pupils: PERRL Chest Chest: normal inspection of the chest Resp Effort & Inspection: normal respiratory effort Auscultation: clear to auscultation bilaterally Cardio Rate: regular rate Rhythm: regular rhythm GI Other: Suprapubic catheter in place, diffusely tender abdominal exam, distention, no rebound or guarding Skin General skin exam: no rashes or lesions noted Neuro General: patient alert and patient oriented x3 Course Vital Signs Vital signs: Vital Signs Temperature 36.4 C L 03/21/21 10:14 Pulse 79 03/21/21 10:14 Blood Pressure 128/85 03/21/21 10:14 Pulse Oximetry 94 03/21/21 10:14 Temperature 36.4 C L 03/21/21 10:14 Pulse 91 H 03/21/21 13:34 Respiratory Rate 20 03/21/21 13:34 Respiratory Effort Labored 03/21/21 10:19 Blood Pressure 139/73 03/21/21 13:34 Pulse Oximetry 94 03/21/21 13:34 Oxygen Delivery Method Room Air 03/21/21 13:34 Oxygen Flow Rate 0 03/21/21 13:34 Pain Level 7 03/21/21 13:34 Lab/Test Results Lab/Test Results: 09/17/21 11:30 Urine - Reflex from Ua Urine Culture - Pending Laboratory Tests Range/Units 03/21/21 03/21/21 03/21/21 10:53 10:53 11:30 WBC (4.4-10.8) 10^3/uL 8.14 RBC (4.36-5.78) 10^6/uL 4.32 L Hgb (13.5-17.5) g/dL 13.1 L Hct (40.0-50.0) % 41.0 MCV (80-95) fL 94.9 MCH (27.0-33.0) pg 30.3 MCHC (32.0-36.0) % 32.0 RDW (11.8-14.1) % 15.8 H Plt Count (130-400) 10^3/uL 358 D MPV (8.0-11.0) fL 9.7 Immature Gran % 0.7 Neutrophils % 71.3 Lymphocytes % 9.8 Monocytes % 13.3 Eosinophils % 4.3 Basophils % 0.6 Nucleated RBC % % 0 Absolute Neutrophils (1.2-6.7) 10^3/uL 5.80 Absolute Lymphocytes (1.2-3.4) 10^3/uL 0.80 L Absolute Monocytes (0.1-0.8) 10^3/uL 1.08 H Absolute Eosinophils (0.0-0.7) 10^3/uL 0.35 Absolute Basophils (0.0-0.2) 10^3/uL 0.05 Sodium (136-145) mmol/L 139 Potassium (3.5-5.1) mmol/L 3.8 Chloride (98-107) mmol/L 104 Carbon Dioxide (21.0-32.0) mmol/L 28.6 Anion Gap (3-11) mmol/L 6.4 BUN (7-18) mg/dL 22 H Creatinine (0.70-1.30) mg/dL 1.6 H Estimated GFR/1.73 m2 (mL/min/1.73m2) 41.29 Glucose (74-106) mg/dL 92 Calcium (8.5-10.1) mg/dL 9.1 Total Bilirubin (0.2-1.0) mg/dL 0.9 AST (15-37) U/L 24 ALT (16-63) U/L 18 Alkaline Phosphatase (46-116) U/L 86 Troponin I (<0.06) ng/mL < 0.05 Total Protein (6.4-8.2) g/dL 7.4 Albumin (3.4-5.0) g/dL 2.7 L Lipase (73-393) U/L 86 Urine Color (Yellow) Yellow Urine Clarity (Clear) Sl Cloudy Urine pH (5-8) 5.5 Ur Specific [place] (1.005-1.025) 1.020 Urine Protein (Negative) mg/dL Negative Urine Ketones (Negative) mg/dL Negative Urine Blood (Negative) Small H Urine Nitrite (Negative) Positive H Urine Bilirubin (Negative) Negative Urine Urobilinogen (Up TO 0.2) EU/dL 0.2 Ur Leukocyte Esterase (Negative) Small H Urine RBC (0-2) HPF 5-10 H Urine WBC (0-5) HPF 20-50 H Ur Epithelial Cells (Negative) HPF Few Urine Crystals (Negative) HPF Negative Urine Bacteria (Negative) HPF Moderate Urine Casts (Negative) LPF Negative Urine Mucus (Negative) Negative Urine Other (Negative) Few Yeast Ur Culture Indicated? Yes Urine Glucose (Negative) mg/dL Negative COVID-19 Source Range/Units 03/21/21 14:05 WBC (4.4-10.8) 10^3/uL RBC (4.36-5.78) 10^6/uL Hgb (13.5-17.5) g/dL Hct (40.0-50.0) % MCV (80-95) fL MCH (27.0-33.0) pg MCHC (32.0-36.0) % RDW (11.8-14.1) % Plt Count (130-400) 10^3/uL MPV (8.0-11.0) fL Immature Gran % Neutrophils % Lymphocytes % Monocytes % Eosinophils % Basophils % Nucleated RBC % % Absolute Neutrophils (1.2-6.7) 10^3/uL Absolute Lymphocytes (1.2-3.4) 10^3/uL Absolute Monocytes (0.1-0.8) 10^3/uL Absolute Eosinophils (0.0-0.7) 10^3/uL Absolute Basophils (0.0-0.2) 10^3/uL Sodium (136-145) mmol/L Potassium (3.5-5.1) mmol/L Chloride (98-107) mmol/L Carbon Dioxide (21.0-32.0) mmol/L Anion Gap (3-11) mmol/L BUN (7-18) mg/dL Creatinine (0.70-1.30) mg/dL Estimated GFR/1.73 m2 (mL/min/1.73m2) Glucose (74-106) mg/dL Calcium (8.5-10.1) mg/dL Total Bilirubin (0.2-1.0) mg/dL AST (15-37) U/L ALT (16-63) U/L Alkaline Phosphatase (46-116) U/L Troponin I (<0.06) ng/mL Total Protein (6.4-8.2) g/dL Albumin (3.4-5.0) g/dL Lipase (73-393) U/L Urine Color (Yellow) Urine Clarity (Clear) Urine pH (5-8) Ur Specific [place] (1.005-1.025) Urine Protein (Negative) mg/dL Urine Ketones (Negative) mg/dL Urine Blood (Negative) Urine Nitrite (Negative) Urine Bilirubin (Negative) Urine Urobilinogen (Up TO 0.2) EU/dL Ur Leukocyte Esterase (Negative) Urine RBC (0-2) HPF Urine WBC (0-5) HPF Ur Epithelial Cells (Negative) HPF Urine Crystals (Negative) HPF Urine Bacteria (Negative) HPF Urine Casts (Negative) LPF Urine Mucus (Negative) Urine Other (Negative) Ur Culture Indicated? Urine Glucose (Negative) mg/dL COVID-19 Source Nasal/Nares
[2021-03-21 15:03] LABS: COVID-19 PCR Negative (Negative)
--- NOTE | 2021-03-21 15:15 | HPE_ITS ---
Date of service: 03/21/21 Time of Service: 15:16 Assessment and Plan Assessment and plan (1) Dehydration: Start date: 03/21/21 Start time: 05:47 Status: Acute Assessment and plan: Patient started on LR at 100 due to dehydraton. Severely dry MM. Appears overall dehydrated. Will avoid diuretics at this time and monitor overnight. (2) UTI (urinary tract infection): Start date: 03/22/21 Start time: 10:30 Status: Acute Assessment and plan: with hematuria, wbc, leuk est, nitrate, started on ceftriaxone. suprapubic exchanged yesterday by ED. Urine cx pending. Qualifiers: Urinary tract infection type: acute cystitis Hematuria presence: with hematuria Qualified Code(s): N30.01 - Acute cystitis with hematuria (3) Abdominal pain: Start date: 03/21/21 Start time: 15:47 Status: Acute Assessment and plan: states started weeks ago worsening this am bringing him into the ED. reviewing imaging there appears to be a RLQ stool impaction causing pain as all imaging was normal. This is likely why he is in so much pain. He suffers chronic constipation. He will need a good bowel regimen on discharge and recommend [facility] as an outpatient for opioid constipation Qualifiers: Abdominal location: right lower quadrant Qualified Code(s): R10.31 - Right lower quadrant pain (4) Chronic constipation: Start date: 03/21/21 Start time: 15:47 Status: Chronic Assessment and plan: as above (5) Chronic pain: Start date: 03/21/21 Start time: 15:47 Status: Chronic Assessment and plan: as above Qualifiers: Chronic pain type: chronic pain syndrome Qualified Code(s): G89.4 - Chronic pain syndrome (6) Generalized weakness: Start date: 03/21/21 Start time: 15:47 Status: Acute Assessment and plan: Patient having more falls over the last couple days PT to evaluate, would likely benefit from rehab however has already expressed that he will not go. (7) Atrial fibrillation: Start date: 03/21/21 Start time: 15:47 Status: Chronic Assessment and plan: rate controlled, continue home med. On pradaxa Qualifiers: Atrial fibrillation type: paroxysmal Qualified Code(s): I48.0 - Paroxysmal atrial fibrillation (8) Chronic kidney disease (CKD): Start date: 03/21/21 Start time: 15:47 Status: Chronic Assessment and plan: appears to be at baseline Qualifiers: Chronic kidney disease stage: unspecified stage Qualified Code(s): N18.9 - Chronic kidney disease, unspecified (9) Diastolic heart failure: Start date: 03/22/21 Start time: 15:47 Status: Chronic Assessment and plan: Does not appear to be in HF at this time actually the opposite he appears dry, hold diuretics overnight until evuolemic, light hydr ation Qualifiers: Heart failure chronicity: chronic Qualified Code(s): I50.32 - Chronic diastolic (congestive) heart failure (10) Pacemaker: Start date: 03/21/21 Start time: 15:47 Status: Acute Assessment and plan: continue management of afib, stable no problems at this time. (11) Hypothyroidism: Start date: 03/21/21 Start time: 15:47 Status: Chronic Assessment and plan: continue levothyroxine Qualifiers: Hypothyroidism type: unspecified Qualified Code(s): E03.9 - Hypothy roidism, unspecified (12) Suprapubic catheter: Start date: 03/21/21 Start time: 15:47 Status: Chronic Assessment and plan: exchnaged on admission in the ED as above (13) Chronic GERD: Start date: 03/21/21 Start time: 15:47 Status: Chronic Assessment and plan: Omeprazole daily (14) Palliative care patient: Start date: 03/21/21 Start time: 15:47 Status: Chronic Assessment and plan: Will place palliative consult as he is seen as out patient (15) DVT prophylaxis: Start date: 03/21/21 Start time: 15:47 Status: Acute Assessment and plan: On pradaxa discussed with Dr. Raya History of Present Illness History of Present Illness Chief Complaint: FTT; abdominal pain, UTI, Narrative: 86 y.o with PMH of AFIB, CKD, GERD, BPH, with suprabupic catheter, HF presented due to frequent falling and abdominal pain. Onset 3 days ago. He has fallen 3 times in the last 3 day d/t weakness. Abdominal pain started x weeks bu t he finally decided to seek treatment today due to severe pain, he has a suprabupic that was exchanged in the ED. Reviewing imanging in the ED it appears where his pain is there is a lot of stool. Will give a shot of relastor as his labs and imaging were unremarkable. He does appear dry. Will hold diuretics overnight and give gentle IV hydration. Urine does reveal positive nitrates with wbc 20-50 with leuk est. he reveieced one dose in the ED. He was asked to be further admitted to m/s for further management. Pt states that he has also been falling alot. He has had multiple fall in the last 3 days, feeling very weak on his feet. Unable to ambulate from to stretcher. Will have PT evaluate him. He appears very dry. IV hydration overnight. states unable to eat or drink. He also is on morphine, oxycodone, and tramadol for pain. Palliative to evaluate patient, he really needs to be weaned off all three meds. Perhaps he would do better with a fentanyl patch and something for breakthrough pain rather than 2 different narcotics, per reconciliation list. Only receiving liquid morphine here. Continue to monitor. Review of Systems All systems reviewed & are unremarkable except as noted in HPI and below PFSH Medical History All medications reviewed Anemia associated with acute blood loss Anxiety Atrial fibrillation Bilateral hydrocele BPH (benign prostatic hyperplasia) Chronic GERD Chronic kidney disease (CKD) Chronic lower back pain Chronic obstructive lung disease Chronic pain Diverticulosis of large intestine without diverticulitis Dysphagia Essential hypertension GERD (gastroesophageal reflux disease) Glaucoma Insomnia Lives alone with help available neighbor lives next door Polyp of colon Spinal stenosis of lumbar region Suprapubic catheter Tachycardia-bradycardia Surgical History Colonoscopy - MAC Pacemaker S/P TURP Family History Niece No problems noted. Social History Smoking/Tobacco Use Status: Former Tobacco Use Smoking risk assessment performed?: Yes Alcohol Intake: former Drug use: Never Substance use type: does not use Caregiver/Support person: No Household members: none Housing: other Details: lives in basement of old farmhouse; afraid of going upstairs Number of Children: 0 Communication Needs: Hard of Hearing and Corrective Lenses Education Level: vocational Do you need help understanding health information?: Always current occupation: retired Pets and animals: No Current gender identity: male What is your relationship status?: never How often do you talk on the phone with friends or family?: three or more times per week How often do you get together with friends or relatives?: twice per week Panel score (0-1 are the most socially isolated patients): 1 What type of physical activity do you participate in: none and sedentary lifestyle Special debi needs: No Agree to transfusion: Yes Carbon monox detector in home: No Firearms in home: Yes Do you feel safe at home: Yes Do you feel safe in your relationship?: Yes Additional Social history: Brenden lives in the basement of an old delapidated farmhouse. He heats with wood but leaves his door open so he can breathe. Friend Casa lives about 100-200 yards away. He checks on Brenden regularly--chops, stacks and loads his wood for him. Brenden's closest living relative is his grandniece, Taisha Montes, who is a Home Health nurse. He is her grandmother's baby brother. No one else is alive in his generation. He never . No children. Has always lived on his own terms. Not going anywhere. Meds Allergies and Home Medications Allergies Allergy/AdvReac Type Severity Reaction Status Date / Time banana Allergy Mild Skin Rash Unverified 03/04/21 09:57 formoterol fumarate AdvReac Intermediate Ineffective Unverified 03/04/21 09:57 [From Dulera] per Pt mometasone furoate AdvReac Intermediate Ineffective Unverified 03/04/21 09:57 [From Dulera] per Pt hydrocodone AdvReac Unknown Dizziness/L Unverified 03/04/21 09:57 ightheade Home Medications Medication Instructions Recorded Confirmed Type potassium chloride [Klor-Con M20] 20 meq PO DAILY AM #30 tabcr 07/18/15 03/21/21 Rx mirtazapine [Remeron] 15 mg PO HS 03/04/16 03/21/21 History levothyroxine 75 mcg PO DAILY@0600 tab 04/13/16 03/21/21 Rx furosemide 40 mg PO DAILY 10/22/16 03/21/21 History cholecalciferol (vitamin D3) 1 tab PO DAILY 08/01/17 03/21/21 History bisacodyl 10 mg MT DAILY PRN 12/30/17 03/21/21 History lactulose 20 g PO DAILY PRN 10/29/18 03/21/21 History lorazepam [Ativan] 0.5 mg PO DIRECTED 10/29/18 03/21/21 History docusate sodium [Colace] 100 mg PO BID 11/30/18 03/21/21 History sennosides [senna] 8.6 mg PO HS 11/30/18 03/21/21 History ursodiol 250 mg PO BID 03/16/20 03/21/21 History multivitamin [Tab-A-Raghu] 1 tab PO DAILY 05/12/20 03/21/21 History Flovent HFA 2 puff INHALATION BID 09/04/20 03/21/21 History Spiriva with HandiHaler 1 cap INHALATION DAILY 09/04/20 03/21/21 History albuterol sulfate [Ventolin HFA] 2 puff INHALATION QID PRN PRN 09/04/20 03/21/21 History latanoprost 1 drp OPHTHALMIC (EYE) HS 09/04/20 03/21/21 History magnesium hydroxide 30 ml PO DAILY PRN 09/04/20 03/21/21 History metoprolol tartrate 75 mg PO BID 09/04/20 03/21/21 History pantoprazole 40 mg PO DAILY 09/04/20 03/21/21 History ropinirole 2 mg PO QPM 09/06/20 03/21/21 History Myrbetriq 50 mg PO DAILY #30 tab 09/13/20 03/21/21 Rx Pradaxa 75 mg PO BID 11/05/20 03/21/21 History acetaminophen [Tylenol] 650 mg PO Q6H PRN PRN 11/05/20 03/21/21 History nitroglycerin 0.4 mg SUBLINGUAL PRN PRN 11/05/20 03/21/21 History sucralfate [Carafate] 1 gm PO QACHS #14 tab 01/31/21 03/21/21 Rx lidocaine 1 patch DAILY 03/04/21 03/21/21 History Lactobacillus acidoph-pectin 1 cap PO TID 03/21/21 03/21/21 History [Acidophilus-Pectin] dorzolamide 1 drp OPHTHALMIC (EYE) QAM 03/21/21 03/21/21 History fluticasone propionate 2 spray INTRANASAL BID 03/21/21 03/21/21 History oxycodone 5 mg PO TID PRN 03/21/21 03/21/21 History Exam Const General: cooperative, comfortable and no acute distress Nutritional Appearance: obese Orientation: alert, awake and oriented x3 HENMT Mouth: moist mucous membranes abnormal Eyes Eyelids: eyelids normal Pupils: PERRL EOM: EOM intact bilaterally Neck Neck: normal visual inspection and no JVD Lymphatic: no lymphadenopathy noted Resp Effort & Inspection: normal respiratory effort Auscultation: clear to auscultation bilaterally Cardio Jugular venous pressure: no JVD Rate: abnormal rate Rhythm: abnormal rhythm irregularly irregular Heart Sounds: S1 normal GI Auscultation: normal bowel sounds Other: severe pain to RLQ, by CT large amount of stool General: No CVA tenderness and deferred Skin General skin exam: rashes and/or lesions noted Lesions: lesions noted and lesion noted (to left pink toe) Neuro General: patient alert, patient awake and patient oriented x3 Cognition: normal cognition Speech: speech normal Gait: normal gait Extrem General: abnormal to inspection, full ROM, no clubbing, cyanosis or edema and other (varicose veins) Results Labs Result diagrams: 03/22/21 06:40 03/22/21 06:40 Labs: Laboratory Results - last 24 hr 03/21/21 03/21/21 03/21/21 10:53 10:53 11:30 WBC 8.14 RBC 4.32 L Hgb 13.1 L Hct 41.0 MCV 94.9 MCH 30.3 MCHC 32.0 RDW 15.8 H Plt Count 358 D MPV 9.7 Immature Gran % 0.7 Neutrophils % 71.3 Lymphocytes % 9.8 Monocytes % 13.3 Eosinophils % 4.3 Basophils % 0.6 Nucleated RBC % 0 Absolute Neutrophils 5.80 Absolute Lymphocytes 0.80 L Absolute Monocytes 1.08 H Absolute Eosinophils 0.35 Absolute Basophils 0.05 Sodium 139 Potassium 3.8 Chloride 104 Carbon Dioxide 28.6 Anion Gap 6.4 BUN 22 H Creatinine 1.6 H Estimated GFR/1.73 m2 41.29 Glucose 92 Calcium 9.1 Total Bilirubin 0.9 AST 24 ALT 18 Alkaline Phosphatase 86 Troponin I < 0.05 Total Protein 7.4 Albumin 2.7 L Lipase 86 Urine Color Yellow Urine Clarity Sl Cloudy Urine pH 5.5 Ur Specific [place] 1.020 Urine Protein Negative Urine Ketones Negative Urine Blood Small H Urine Nitrite Positive H Urine Bilirubin Negative Urine Urobilinogen 0.2 Ur Leukocyte Esterase Small H Urine RBC 5-10 H Urine WBC 20-50 H Ur Epithelial Cells Few Urine Crystals Negative Urine Bacteria Moderate Urine Casts Negative Urine Mucus Negative Urine Other Few Yeast Ur Culture Indicated? Yes Urine Glucose Negative COVID-19 Source SARS-CoV-2 (PCR) 03/21/21 14:05 WBC RBC Hgb Hct MCV MCH MCHC RDW Plt Count MPV Immature Gran % Neutrophils % Lymphocytes % Monocytes % Eosinophils % Basophils % Nucleated RBC % Absolute Neutrophils Absolute Lymphocytes Absolute Monocytes Absolute Eosinophils Absolute Basophils Sodium Potassium Chloride Carbon Dioxide Anion Gap BUN Creatinine Estimated GFR/1.73 m2 Glucose Calcium Total Bilirubin AST ALT Alkaline Phosphatase Troponin I Total Protein Albumin Lipase Urine Color Urine Clarity Urine pH Ur Specific [place] Urine Protein Urine Ketones Urine Blood Urine Nitrite Urine Bilirubin Urine Urobilinogen Ur Leukocyte Esterase Urine RBC Urine WBC Ur Epithelial Cells Urine Crystals Urine Bacteria Urine Casts Urine Mucus Urine Other Ur Culture Indicated? Urine Glucose COVID-19 Source Nasal/Nares SARS-CoV-2 (PCR) Negative Last Vital Signs Temp 36.4 C L 03/21/21 10:14 Pulse 91 H 03/21/21 13:34 Resp 20 03/21/21 13:34 BP 139/73 03/21/21 13:34 Pulse Ox 94 03/21/21 13:34
--- NOTE | 2021-03-21 15:32 | NT_ITS ---
Date of service: 03/21/21 Time of Service: 15:32 PT Notes Visit Reasons: FTT weakness, ambulatory dyfunction Per NITROCELLULOSE OPERATOR Sherri, patient is in significant amount of abdominal pain and advised that patient be seen tomorrow morning when pain is better managed. Thank you for the opportunity to participate in the care of this patient. Elsa Menchaca PT, DPT, CLT [facility] [place], [place]
[2021-03-21] MEDS: Lactated Ringers 1,000 ML 100 ML IV (15:41)
[2021-03-21 15:54] VITALS: BP 129/72; PULSE 107; RESP 20; TEMP 36.2; O2SAT 96
[2021-03-21] MEDS: Methylnaltrexone 12 MG/0.6 ML VIAL SC (17:05)
[2021-03-21] MEDS: MORPHine 4 MG/ML SYR IVP (17:07)
[2021-03-21] MEDS: LORazepam 0.5 MG TAB 1 MG PO (17:07)
[2021-03-21] MEDS: Metoprolol 25 MG TAB 75 MG PO (20:03)
[2021-03-21] MEDS: Lactobacillus Acidophilus CAP 1 CAP PO (20:04)
[2021-03-21] MEDS: rOPINIRole 1 MG TAB 2 MG PO (20:04)
[2021-03-21] MEDS: oxyCODONE 5 MG TAB PO (21:09)
[2021-03-21] MEDS: Senna TAB 1 TAB PO (21:11)
[2021-03-21] MEDS: Sucralfate 1 GM TAB PO (21:11)
[2021-03-21] MEDS: Mirtazapine 15 MG TAB PO (21:11)
[2021-03-21 23:31] VITALS: BP 116/67; PULSE 83; RESP 18; TEMP 36.2; O2SAT 91
[2021-03-22] MEDS: Lactated Ringers 1,000 ML 100 ML IV ×2 (03:06→13:18)
[2021-03-22] MEDS: LORazepam 0.5 MG TAB PO ×2 (05:06→13:59)
[2021-03-22] MEDS: Levothyroxine 75 MCG TAB PO (06:14)
[2021-03-22 07:01] LABS: Abs Immature Grans 0.07 10^3/uL (0.0-0.06); Absolute Basophil Count 0.03 10^3/uL (0.0-0.2); Absolute Eosinophil Count 0.35 10^3/uL (0.0-0.7); Absolute Lymphocyte Count 0.93 10^3/uL (1.2-3.4); Absolute Monocyte Count 0.73 10^3/uL (0.1-0.8); Absolute Neutrophil Count 3.99 10^3/uL (1.2-6.7); Basophils % 0.5; Eosinophils % 5.7; HCT 38.4 % (40.0-50.0); HGB 12.4 g/dL (13.5-17.5); Immature Grans % 1.1; Lymphocytes % 15.2; MCH 30.1 pg (27.0-33.0); MCHC 32.3 % (32.0-36.0); MCV 93.2 fL (80-95); MPV 9.6 fL (8.0-11.0); Neutrophils % 65.5; Nucleated RBC 0 %; Platelet Count 299 10^3/uL (130-400); RBC 4.12 10^6/uL (4.36-5.78); RDW 15.8 % (11.8-14.1)
[2021-03-22 07:23] LABS: Anion Gap 4.7 mmol/L (3-11); BUN 18 mg/dL (7-18); CO2 30.3 mmol/L (21.0-32.0); CREATININE 1.5 mg/dL (0.70-1.30); Calcium 8.9 mg/dL (8.5-10.1); Chloride 104 mmol/L (98-107); Estimated GFR 44.48 (mL/min/1.73m2); Glucose 90 mg/dL (74-106); Potassium 3.9 mmol/L (3.5-5.1); Sodium 139 mmol/L (136-145)
[2021-03-22 07:26] LABS: Magnesium 2.2 mg/dL (1.8-2.4)
[2021-03-22 07:35] VITALS: BP 123/72; PULSE 92; RESP 19; TEMP 36.4; O2SAT 91
[2021-03-22] MEDS: Lidocaine 5% Patch 1 PATCH TP (07:51)
[2021-03-22] MEDS: Lactobacillus Acidophilus CAP 1 CAP PO ×3 (07:52→20:21)
[2021-03-22] MEDS: Mirabegron 50 MG TABCR PO (07:52)
[2021-03-22] MEDS: Multivitamin TAB 1 TAB PO (07:52)
[2021-03-22] MEDS: Metoprolol 25 MG TAB 75 MG PO ×2 (07:53→20:21)
[2021-03-22] MEDS: Potassium Chloride 20 MEQ TABCR PO (07:53)
[2021-03-22] MEDS: Cholecalciferol (Vitamin D3) 1,000 UNIT TAB 1000 UNITS PO (07:53)
[2021-03-22] MEDS: Sucralfate 1 GM TAB PO ×4 (07:53→21:28)
[2021-03-22] MEDS: Pantoprazole 40 MG TABCR PO (07:53)
--- NOTE | 2021-03-22 08:52 | INITIAL_ITS ---
- If Service Date Differs Date of service: 03/22/21 Time of Service: 08:52 Care Management Initial Assess REASON FOR HOSPITALIZATION:: FTT Weakness, Ambulatory Dysfunction. PAST MEDICAL HISTORY/PAST SURGICAL HISTORY:: Medical History: Anemia associated with acute blood loss; Anxiety; Atrial fibrillation; Bilateral hydrocele; BPH (benign prostatic hyperplasia); Chronic GERD; Chronic kidney disease (CKD); Chronic lower back pain; Chronic obstructive lung disease; Chronic pain; Diverticulosis of large intestine without diverticulitis; Dysphagia; Essential hypertension; GERD (gastroesophageal reflux disease); Glaucoma; Insomnia; Lives alone with help available - neighbor lives next door; Polyp of colon; Spinal stenosis of lumbar region; Suprapubic catheter; and Tachycardia-bradycardia. Surgical History: Colonoscopy - MAC; Pacemaker; and S/P TURP. PREVIOUS FUNCTIONAL STATUS/SOCIAL/FAMILY SUPPORTS:: Brenden resides alone in [place]. His neighbor, Ed, helps him out as needed. Brenden has Choices for Care, high/highest needs and his comp field case manager is Annette Larson. Brenden states he occupies his time at home by watching westerns on television, playing cards, doing word search puzzles, and visiting with Ed. He shares with a smile on his face that once in a while he drives his tractor that has a rake behind it around his property. CURRENT FUNCTIONAL STATUS:: Brenden is sitting in a chair when CM comes to meet with him. He is pleasant and talkative. He talks about how on some days he does not feel very well and is too tired to do much of anything. He, however, is unwilling to consider a rehab stay upon discharge from the hospital. He states he has plenty of help at home and is quite clear that his preference is to return home from [facility]. ADVANCE DIRECTIVES:: On file; friend Casa Cardona is appointed as Health Care Agent. Has patient been provided with info about the portal/API?: Yes Did the patient sign up for the portal?: No CODE STATUS:: DNR/DNI INSURANCE COVERAGE / FINANCIAL ISSUES:: Medicare and Medicaid. CURRENT HOME/COMMUNITY SERVICES/EQUIPMENT:: Brenden has Choices for Care high/highest needs; Annette Larson is his comp field case manager. He has MOW and HH RN and OT. He owns a FWW, cane, and wheelchair. PRIMARY CARE PHYSICIAN:: Lorena Chong MD. POTENTIAL DISCHARGE NEEDS:: Follow up appointment with his PCP and in-home physical therapy. PATIENT/FAMILY EDUCATION NEEDS:: Discharge instructions, limitations, and follow up plan of care including Ask Me Three and self-management. ANTICIPATED BARRIERS TO DISCHARGE:: No anticipated barriers at this time. TRANSPORTATION:: Via [facility]. PLAN:: Anticipate Bill will return home with a resumption of CFC - high/highest needs, MOW, and HH RN and OT, with an addition of PT, when medically cleared by provider. He will follow up with his PCP and discharge plan of care as directed. Bill will be driven home via [facility] private vehicle when ready. CM will continue to support Bill and any discharge planning needs.
[2021-03-22] MEDS: Tiotropium Bromide-Respimat 10 PUFF INH IH (09:14)
[2021-03-22] MEDS: Mometasone 220 MCG 14 DOSE INHALER IH (09:14)
--- NOTE | 2021-03-22 10:45 | PT.INIE ---
Date of service: 03/22/21 Time of Service: 10:20 PT Notes Visit Reasons: FTT Weakness,Ambulatory Dyfunction Inpatient Physical Therapy Evaluation Date: March 22, 2021 Referring Doctor: Sherri Ha PT Orders: PT CONSULT: eval and treat Precautions: Standard, Falls Patient Profile/Admitting Diagnosis: Dino is an 86-year-old male with history of pneumonia, chronic pain, epigastric abdominal pain, pacemaker, atrial fibrillation, exertional dyspnea, tachybradycardia syndrome anticoagulation dependent, recurrent urinary tract infection with indwelling suprapubic catheter presents with report of lower abdominal pain to emergency department. PMHX: All medications reviewed Anemia associated with acute blood loss Anxiety Atrial fibrillation Bilateral hydrocele BPH (benign prostatic hyperplasia) Chronic GERD Chronic kidney disease (CKD) Chronic lower back pain Chronic obstructive lung disease Chronic pain Diverticulosis of large intestine without diverticulitis Dysphagia Essential hypertension GERD (gastroesophageal reflux disease) Glaucoma Insomnia Lives alone with help available neighbor lives next door Polyp of colon Spinal stenosis of lumbar region Suprapubic catheter Tachycardia-bradycardia Surgical History Colonoscopy - MAC Pacemaker S/P TURP Social History/Home Situation: Lives alone in a private home with 6 steps to enter and rails on B sides in [facility]. Has neighbors who he says are available to help as needed. Modified independent indoors and outdoors using his 4WW. Notes that HHS have been coming daily to assist with generator operator straight bevel gear, and bathing. He notes he has meals on wheels however still gets himself light meals due to not liking the food. Equipment Owned/DME: 4WW, FWW Subjective: Agreeable to PT consult. Reports 5-6/10 pain at time of evaluation. Objective: General Observation: Seated bedside chair, IV R UE Mental Status: Alert and oriented x 4 Pain: 5-6/10 pain in R lower abdominal quadrant ROM: Right Upper Extremity: Unable to lift R shoulder beyond 90 degrees due to pain and anxiety. Elbow flexion WFL. Wrist flexion WFL. Opening and closing of hand WFL. Left Upper Extremity: Shoulder Flexion WFL. Shoulder abduction WFL. Elbow flexion WFL. Wrist flexion WFL. Opening and closing of hand WFL. Right Lower Extremity: Hip flexion WFL. Hip abduction WFL. Knee flexion WFL. Ankle dorsiflexion WFL. Ankle plantarflexion WFL. Left Lower Extremity: Hip flexion WFL. Hip abduction WFL. Knee flexion WFL. Ankle dorsiflexion WFL. Ankle plantarflexion WFL. Strength: Right Upper Extremity: Shoulder flexors 4-/5. Shoulder abductors 4-/5. Elbow flexors 4/5. Elbow extensors 4/5. Make Up Girl strong. Left Upper Extremity: Shoulder flexors 4/5. Shoulder abductors 4/5. Elbow flexors 4/5. Elbow extensors 4/5. Make Up Girl strong. Right Lower Extremity: Hip flexors 4-/5. Hip abductors 4-/5. Knee flexors 4+/5. Knee extensors 4+/5. Ankle dorsiflexors 4/5. Ankle plantarflexors 4/5. Left Lower Extremity: Hip flexors 4-/5. Hip abductors 4-/5. Knee flexors 4/5. Knee extensors 4/5. Ankle dorsiflexors 4/5. Ankle plantarflexors 4/5. Sensation: Intact as to pain and pressure on bilateral lower extremities. Bed Mobility/Transfers: Sit to stand stand by assist Stand to sit supervision Bed to chair contact-guard assist Chair to bed contact-guard assist Gait: Guided patient through level surface ambulation of 25 feet x2 using the FWW with report of 5-6/10 pain in right lower abdominal quadrant. Step-through heel-toe gait pattern. Age-related reduction in jose. Denies headache, dizziness, chest pain. Balance: Static Sitting: Normal Dynamic Sitting: Good Static Standing: Good Dynamic Standing: Fair Special Tests: Mobility Limitations Standardized Measure [facility]-P[facility] 6 clicks Basic Mobility Inpatient Short Form: Raw Score: 18 CMS Score: 47% deficit 4-stage Balance test: Unable to maintain semi-tandem, full tandem, and one-legged stance for 10 seconds indicating high risk for falls without use of FWW. Informed Consent/Education: Patient instructed in purpose of PT consult and plan of care. Assessment: Mobility performance limited by pain and shortness of breath. Dino demonstrates the need for an assistive ambulatory device for all mobility ADL performance to maximize independence and reduce fall risk at home, decreased activity tolerance due to balance impairment. Patient will benefit from continued Home Health services or jail facility placement for continued skilled physical therapy services in order to progress mobility level, strength, and balance in preparation for a safe discharge to home. Patient presents with clinical signs and symptoms consistent with current/admitting diagnoses that have resulted to mobility limitations, gait instability, generalized weakness, and impairment of motor control as demonstrated by the following impairment level findings: 1. Decreased strength to R UE/R LE major muscle groups 2. Impaired standing balance 3. Impaired activity tolerance 4. Limitation of joint range of motion in R shoulder 5. Pain in r lower abdominal quadrant 6. SOB with ambulation Impairments are contributing to the following functional limitations: 1. Inability to safely ambulate without assistive device 2. Increase completion time for mobility ADL performance 3. Increased fall risk 4. Inability to negotiate steps alone safely Patient is assessed as a 11729 complexity based on the following: History: 85-year-old male with impairment level findings, functional limitations, and past medical history as indicated above Examination: Demonstrable impairment in strength, balance, and mobility level with underlying impairments and functional limitations as documented above Presentation:Evolving Decision Makin moderate complexity Goals: Goals X1 week 1. Supine-Sit independent 2. Sit-Supine independent 3. Sit-Stand independent 4. Stand-Sit independent 5. Bed-Chair independent 6. Chair-Bed independent 7. Independent gait on level surface with use of least restrictive device for at least 300 feet without report of pain nor dyspnea 8. Independent stair negotiation while holding onto bilateral rails for at least 10 steps without report of pain nor dyspnea 9. Independent with home exercise program 10. Good static and dynamic standing balance/tolerance Plan of Care/Treatment Plan: 1-2x/day, 7 days/week x 1 week. Plan of care has been reviewed with the PROFESSOR OF FAMILY MEDICINE providing the service under Physical Therapy direction. Initiate Physical Therapy intervention for strengthening, bed mobility, transfers, gait, stairs, balance training, use of assistive device. DISCHARGE RECOMMENDATIONS: Continued Home Health Services vs [facility] Facility, Continued use of FWW for all ambulation TREATMENT CODE/TIME: 28177, IE 10:20 am 25 minutes JOSEFINA Smiley [facility] Disclaimer: This note was created using [employer] voice recognition software. It was reviewed for major content. However, there may be multiple small discrepancies and errors due to the voice recognition aspects of the software.
--- NOTE | 2021-03-22 12:46 | PGE_ITS ---
Date of Service Date of service: 03/22/21 Time of Service: 12:46 Assessment and Plan Assessment and plan (1) Dehydration: Start date: 03/22/21 Start time: 12:50 Status: Acute Assessment and plan: Improving on LR at 100 due to dehydration. MM still slightly dried, but improved, lips are still cracked and dry. Will continue IVF. avoid diuretics at this time and monitor overnight. (2) UTI (urinary tract infection): Start date: 03/22/21 Start time: 12:50 Status: Acute Assessment and plan: with hematuria, wbc, leuk est, nitrate, started on ceftriaxone. suprapubic exchanged yesterday by ED. Urine cx pending. Qualifiers: Urinary tract infection type: acute cystitis Hematuria presence: with hematuria Qualified Code(s): N30.01 - Acute cystitis with hematuria (3) Abdominal pain: Start date: 03/22/21 Start time: 13:04 Status: Acute Assessment and plan: states started weeks ago worsening this am bringing him into the ED. reviewing imaging there appears to be a RLQ stool impaction causing pain as all imaging was normal. This is likely why he is in so much pain. He suffers chronic constipation. He will need a good bowel regimen on discharge and recommend Amitiza as an outpatient for opioid constipation relastor given without any success, will trial SSE and mag citrate. Pain is improved to RLQ, but he still is having moderate pain with palpation. Likely once he has a BM pain will dissapate Qualifiers: Abdominal location: right lower quadrant Qualified Code(s): R10.31 - Right lower quadrant pain (4) Chronic constipation: Start date: 03/22/21 Start time: 13:29 Status: Chronic Assessment and plan: as above (5) Chronic pain: Start date: 03/22/21 Start time: 13:29 Status: Chronic Assessment and plan: as above He would likely due better on 1 narcotic or a nonnarcotic then multiple Qualifiers: Chronic pain type: chronic pain syndrome Qualified Code(s): G89.4 - Chronic pain syndrome (6) Generalized weakness: Start date: 03/22/21 Start time: 13:30 Status: Acute Assessment and plan: improved today. Likely combination from dehydration, uti and pain (7) Atrial fibrillation: Start date: 03/22/21 Start time: 13:31 Status: Chronic Assessment and plan: rate controlled, continue home med. On pradaxa Qualifiers: Atrial fibrillation type: paroxysmal Qualified Code(s): I48.0 - Paroxysmal atrial fibrillation (8) Chronic kidney disease (CKD): Start date: 03/22/21 Start time: 13:31 Status: Chronic Assessment and plan: appears to be at baseline Qualifiers: Chronic kidney disease stage: unspecified stage Qualified Code(s): N18.9 - Chronic kidney disease, unspecified (9) Diastolic heart failure: Start date: 03/22/21 Start time: 13:31 Status: Chronic Assessment and plan: Does not appear to be in HF at this time actually the opposite he appears dry, hold diuretics overnight until evuolemic, light hydration Qualifiers: Heart failure chronicity: chronic Qualified Code(s): I50.32 - Chronic diastolic (congestive) heart failure (10) Pacemaker: Start date: 03/22/21 Start time: 13:31 Status: Acute Assessment and plan: continue management of afib, stable no problems at this time. (11) Hypothyroidism: Start date: 03/22/21 Start time: 13:31 Status: Chronic Assessment and plan: continue levothyroxine Qualifiers: Hypothyroidism type: unspecified Qualified Code(s): E03.9 - Hypothyroidism, unspecified (12) Suprapubic catheter: Start date: 03/22/21 Start time: 13:32 Status: Chronic Assessment and plan: exchnaged on admission in the ED as above (13) Chronic GERD: Start date: 03/22/21 Start time: 13:32 Status: Chronic Assessment and plan: Omeprazole daily (14) Palliative care patient: Start date: 03/22/21 Start time: 13:32 Status: Chronic Assessment and plan: Will place palliative consult as he is seen as outpatient (15) DVT prophylaxis: Start date: 03/22/21 Start time: 13:32 Status: Acute Assessment and plan: On pradaxa discussed with Dr. Rodriguez Subjective Subjective Patient reports: feels better Interval history since last seen: Feeling better today, does not look as dry or feel as weak. though lips are still dry and cracked. Will apply teds to bilateral legs. Exam Const General: cooperative, comfortable and no acute distress Nutritional Appearance: obese Orientation: alert, awake and oriented x3 HENMT Mouth: moist mucous membranes abnormal Eyes Eyelids: eyelids normal Pupils: PERRL EOM: EOM intact bilaterally Neck Neck: normal visual inspection and no JVD Lymphatic: no lymphadenopathy noted Resp Effort & Inspection: normal respiratory effort Auscultation: clear to auscultation bilaterally Cardio Jugular venous pressure: no JVD Rate: abnormal rate Rhythm: abnormal rhythm irregularly irregular Heart Sounds: S1 normal GI Auscultation: normal bowel sounds General: No CVA tenderness and deferred Other: suprapubic Skin General skin exam: rashes and/or lesions noted Lesions: lesions noted and lesion noted (to left pink toe) Neuro General: patient alert, patient awake and patient oriented x3 Cognition: normal cognition Speech: speech normal Gait: normal gait Extrem General: abnormal to inspection, full ROM, no clubbing, cyanosis or edema and ot her (varicose veins) Objective Last Vital Signs Temp 36.4 C L 03/22/21 07:35 Pulse 92 H 03/22/21 07:35 Resp 19 03/22/21 07:35 BP 123/72 03/22/21 07:35 Pulse Ox 91 L 03/22/21 07:35 Laboratory Results - last 24 hr 03/21/21 03/21/21 03/22/21 14:05 Unknown 06:40 WBC RBC Hgb Hct MCV MCH MCHC RDW Plt Count MPV Immature Gran % Neutrophils % Lymphocytes % Monocytes % Eosinophils % Basophils % Nucleated RBC % Absolute Neutrophils Absolute Lymphocytes Absolute Monocytes Absolute Eosinophils Absolute Basophils Sodium 139 Potassium 3.9 Chloride 104 Carbon Dioxide 30.3 Anion Gap 4.7 BUN 18 Creatinine 1.5 H Estimated GFR/1.73 m2 44.48 Glucose 90 Calcium 8.9 Magnesium Stool Chymotrypsin Cancelled COVID-19 Source Nasal/Nares SARS-CoV-2 (PCR) Negative Cryptosporidium/Giardia Cancelled 03/22/21 03/22/21 06:40 06:40 WBC 6.10 RBC 4.12 L Hgb 12.4 L Hct 38.4 L MCV 93.2 MCH 30.1 MCHC 32.3 RDW 15.8 H Plt Count 299 MPV 9.6 Immature Gran % 1.1 Neutrophils % 65.5 Lymphocytes % 15.2 Monocytes % 12.0 Eosinophils % 5.7 Basophils % 0.5 Nucleated RBC % 0 Absolute Neutrophils 3.99 Absolute Lymphocytes 0.93 L Absolute Monocytes 0.73 Absolute Eosinophils 0.35 Absolute Basophils 0.03 Sodium Potassium Chloride Carbon Dioxide Anion Gap BUN Creatinine Estimated GFR/1.73 m2 Glucose Calcium Magnesium 2.2 Stool Chymotrypsin COVID-19 Source SARS-CoV-2 (PCR) Cryptosporidium/Giardia
[2021-03-22] MEDS: Magnesium Citrate 300 ML BTL PO (13:59)
[2021-03-22] MEDS: Lactulose 20 GM/30 ML CUP PO (16:44)
[2021-03-22] MEDS: cefTRIAXone 2 GM/50 ML BAG IVPB (16:44)
[2021-03-22] MEDS: LORazepam 0.5 MG TAB 1 MG PO (16:44)
[2021-03-22] MEDS: oxyCODONE 5 MG TAB PO (18:34)
--- NOTE | 2021-03-22 18:39 | NUR.NOTE ---
patient started moving his bowels at about 500. He got off the commode once, was incontinent in his brief. He was transferred to the commode again. Every time he attempts to stand. he moves his bowels again. He is advised to change position regularly on the commode to avoid pressure. CRYSTALLIZER OPERATOR was advised to pass on to the next shift that the patient will need good skin care. Next shift nurse will be endorsed to apply temi hose, as it is not possible to apply them while he's sitting on the commode. Nursing Note:
[2021-03-22 19:32] VITALS: BP 120/74; PULSE 88; RESP 19; TEMP 36.6; O2SAT 92
[2021-03-22] MEDS: rOPINIRole 1 MG TAB 2 MG PO (20:21)
[2021-03-22] MEDS: Latanoprost 0.005% 2.5 ML BTL OU (21:28)
[2021-03-22] MEDS: Mirtazapine 15 MG TAB PO (21:28)
[2021-03-22] MEDS: Senna TAB 1 TAB PO (21:28)
[2021-03-23] MEDS: Lactated Ringers 1,000 ML 100 ML IV (01:11)
[2021-03-23] MEDS: LORazepam 0.5 MG TAB PO ×2 (05:18→11:14)
[2021-03-23] MEDS: Levothyroxine 75 MCG TAB PO (05:19)
[2021-03-23 07:32] VITALS: BP 124/72; PULSE 96; RESP 26; TEMP 36.8; O2SAT 93
[2021-03-23] MEDS: Cholecalciferol (Vitamin D3) 1,000 UNIT TAB 1000 UNITS PO (07:51)
[2021-03-23] MEDS: Potassium Chloride 20 MEQ TABCR PO (07:51)
[2021-03-23] MEDS: Lidocaine 5% Patch 1 PATCH TP (07:51)
[2021-03-23] MEDS: Multivitamin TAB 1 TAB PO (07:51)
[2021-03-23] MEDS: Mirabegron 50 MG TABCR PO (07:51)
[2021-03-23] MEDS: Lactobacillus Acidophilus CAP 1 CAP PO ×2 (07:52→13:59)
[2021-03-23] MEDS: Metoprolol 25 MG TAB 75 MG PO (07:52)
[2021-03-23] MEDS: Pantoprazole 40 MG TABCR PO (07:52)
[2021-03-23] MEDS: Sucralfate 1 GM TAB PO ×3 (07:52→15:48)
[2021-03-23] MEDS: Tiotropium Bromide-Respimat 10 PUFF INH IH (08:09)
[2021-03-23] MEDS: Mometasone 220 MCG 14 DOSE INHALER IH (08:10)
[2021-03-23 08:43] LABS: Anion Gap 7.5 mmol/L (3-11); BUN 16 mg/dL (7-18); CO2 27.5 mmol/L (21.0-32.0); CREATININE 1.3 mg/dL (0.70-1.30); Calcium 8.9 mg/dL (8.5-10.1); Chloride 103 mmol/L (98-107); Estimated GFR 52.47 (mL/min/1.73m2); Glucose 114 mg/dL (74-106); Potassium 3.7 mmol/L (3.5-5.1); Sodium 138 mmol/L (136-145)
--- NOTE | 2021-03-23 09:41 | PT.INTREAT ---
PT Notes Visit Reasons: FTT Weakness,Ambulatory Dyfunction Inpatient Physical Therapy Treatment Note [facility] Date: 03/23/21 SUBJECTIVE: I can't breathe good and I can't walk good. I am worthless. OBJECTIVE: [] BED MOBILITY/TRANSFERS Sit-stand: SBA Stand-sit: S GAIT Assistive Device: FWW Weight bearing: full Assist: CGA Distance: 125' Deviation: LOB x2. ASSESSMENT: tolerated session fair. LOB x2 during ambulation and need assistance from myself to correct it. He tends to bounce off wall rather than quick step with foot to correct his balance. He continue to require skilled instruction in exercise to progress his strength and balance. He is [place] and this make it difficult to understand directions. He did c/o SOB but stated he would be ok after a while. He was able to toilet himself with SBA mostly for gown and IV. PLAN: possible D/C to home with HH services per MD. TREATMENT CODE/TIME: 20 min beginning [id number]. [id number]
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
[2021-03-23] MEDS: cefTRIAXone 2 GM/50 ML BAG IVPB (15:48)
[2021-03-23] MEDS: oxyCODONE 5 MG TAB PO (15:48)
[2021-03-23] MEDS: Normal Saline Flush 10 ML SYR IVP ×2 (15:49→18:21)
[2021-03-23 17:00] VITALS: BP 110/69; PULSE 64; RESP 21; TEMP 36.1; O2SAT 91
[2021-03-23] MEDS: LORazepam 0.5 MG TAB 1 MG PO (17:06)
--- NOTE | 2021-03-23 18:41 | CMDISCH_ITS ---
- If Service Date Differs Date of service: 03/23/21 Time of Service: 18:41 LACE Index Scoring Tool - Questions: Length of Stay (in days): 1 Acuity (Admit via E.D.?): Yes Comorbidities: Chronic Pulmonary Disease, Liver or Renal Disease E.D. Visits: 11 - Answers: Total Score: 13 Risk of Readmission: High Risk Care Management Discharge Reason for Hospitalization: FTT Weakness, Ambulatory Dysfunction. Discharge Plan: Brenden is discharged home with a resumption of HH RN and OT and an addition of PT and CENSUS CLERK. He will follow up with his PCP and discharge plan of care as directed. He is transported home via [facility] private vehicle arranged by CM. Patient/Family Education Needs: Review of discharge instructions regarding activity level and medications. Discussion of Ask Me Three and self care. Services Needed at Discharge: Home Health Care Services, Transportation
--- NOTE | 2021-03-24 19:30 | INDS_ITS ---
Date of service: 03/24/21 PT Notes Visit Reasons: FTT Weakness,Ambulatory Dyfunction Physical Therapy Inpatient Discharge Summary Date: 03/24/2021 Dates of service: 03/22/2021 through 03/23/2021 This is a clinical summary of care provided for the duration of dates listed ab ove. No charge was made in the completion of this documentation. Referring Doctor: Sherri Ha PT Orders: PT CONSULT: eval and treat Precautions: Standard, Falls Patient Profile/Admitting Diagnosis: Dino is an 86-year-old male with history of pneumonia, chronic pain, epigastric abdominal pain, pacemaker, atrial fibrillation, exertional dyspnea, tachybradycardia syndrome anticoagulation dependent, recurrent urinary tract infection with indwelling suprapubic catheter presents with report of lower abdominal pain to emergency department. PMHX: All medications reviewed Anemia associated with acute blood loss Anxiety Atrial fibrillation Bilateral hydrocele BPH (benign prostatic hyperplasia) Chronic GERD Chronic kidney disease (CKD) Chronic lower back pain Chronic obstructive lung disease Chronic pain Diverticulosis of large intestine without diverticulitis Dysphagia Essential hypertension GERD (gastroesophageal reflux disease) Glaucoma Insomnia Lives alone with help available neighbor lives next door Polyp of colon Spinal stenosis of lumbar region Suprapubic catheter Tachycardia-bradycardia Surgical History Colonoscopy - MAC Pacemaker S/P TURP Social History/Home Situation: Lives alone in a private home with 6 steps to enter and rails on B sides in [facility]. Has neighbors who he says are available to help as needed. Modified independent indoors and outdoors using his 4WW. Notes that HHS have been coming daily to assist with activity leader, and bathing. He notes he has meals on wheels however still gets himself light meals due to not liking the food. Equipment Owned/DME: 4WW, FWW Subjective: NT. See most recent GARAGE MECHANIC notes. Objective: General Observation: NT. See most recent GARAGE MECHANIC notes. Mental Status: NT. See most recent GARAGE MECHANIC notes. Pain: NT. See most recent GARAGE MECHANIC notes. ROM: Right Upper Extremity: Unable to lift R shoulder beyond 90 degrees due to pain and anxiety. Elbow flexion WFL. Wrist flexion WFL. Opening and closing of hand WFL. Left Upper Extremity: Shoulder Flexion WFL. Shoulder abduction WFL. Elbow flexion WFL. Wrist flexion WFL. Opening and closing of hand WFL. Right Lower Extremity: Hip flexion WFL. Hip abduction WFL. Knee flexion WFL. Ankle dorsiflexion WFL. Ankle plantarflexion WFL. Left Lower Extremity: Hip flexion WFL. Hip abduction WFL. Knee flexion WFL. Ankle dorsiflexion WFL. Ankle plantarflexion WFL. Strength: Right Upper Extremity: Shoulder flexors 4-/5. Shoulder abductors 4-/5. Elbow flexors 4/5. Elbow extensors 4/5. Supervisor Ticket Sales strong. Left Upper Extremity: Shoulder flexors 4/5. Shoulder abductors 4/5. Elbow flexors 4/5. Elbow extensors 4/5. Supervisor Ticket Sales strong. Right Lower Extremity: Hip flexors 4-/5. Hip abductors 4-/5. Knee flexors 4+/5. Knee extensors 4+/5. Ankle dorsiflexors 4/5. Ankle plantarflexors 4/5. Left Lower Extremity: Hip flexors 4-/5. Hip abductors 4-/5. Knee flexors 4/5. Knee extensors 4/5. Ankle dorsiflexors 4/5. Ankle plantarflexors 4/5. Sensation: Intact as to pain and pressure on bilateral lower extremities. Bed Mobility/Transfers: Sit to stand stand by assist Stand to sit standby assist Bed to chair standby assist Chair to bed standby assist Gait: Guided patient through level surface ambulation of 125 feet using the FWW with contcat guard assist. Step-through heel-toe gait pattern. LOB x 2. Balance: Static Sitting: Normal Dynamic Sitting: Good Static Standing: Good Dynamic Standing: Fair Assessment: Mobility performance limited by pain and shortness of breath. Willi am demonstrates the need for an assistive ambulatory device for all mobility ADL performance to maximize independence and reduce fall risk at home, decreased activity tolerance due to balance impairment. Patient will benefit from continued Home Health services or [facility] placement for continued skilled physical therapy services in order to progress mobility level, strength, and balance in preparation for a safe discharge to home. Patient presents with clinical signs and symptoms consistent with current/admitting diagnoses that have resulted to mobility limitations, gait instability, generalized weakness, and impairment of motor control as demonstrated by the following impairment level findings: 1. Decreased strength to R UE/R LE major muscle groups 2. Impaired standing balance 3. Impaired activity tolerance 4. Limitation of joint range of motion in R shoulder 5. Pain in r lower abdominal quadrant 6. SOB with ambulation Impairments are contributing to the following functional limitations: 1. Inability to safely ambulate without assistive device 2. Increase completion time for mobility ADL performance 3. Increased fall risk 4. Inability to negotiate steps alone safely Goals: Goals X1 week 1. Supine-Sit independent NOT MET 2. Sit-Supine independent NOT MET 3. Sit-Stand independent NOT MET 4. Stand-Sit independent NOT MET 5. Bed-Chair independent NOT MET 6. Chair-Bed independent NOT MET 7. Independent gait on level surface with use of least restrictive device for at least 300 feet without report of pain nor dyspnea NOT MET 8. Independent stair negotiation while holding onto bilateral rails for at least 10 steps without report of pain nor dyspnea NOT MET 9. Independent with home exercise program NOT MET 10. Good static and dynamic standing balance/tolerance NOT MET DISCHARGE RECOMMENDATIONS: Continued Home Health Services vs Care Home Facility, Continued use of FWW for all ambulation TREATMENT CODE/TIME: CO Thank you for the opportunity to participate in the care of this patient. Elsa Menchaca PT, DPT, CLT [facility] [place], [place]
== END 2021-03-23 18:34 | disposition home health service (06) | DRG 690 ==
LOC: ER 14:46 → MS 14:51
PROVIDERS: Nurse Practitioner Family; Admitting Provider Family Medicine; Emergency Provider Physician Assistant; PCP Family Medicine; Visit Provider Family Medicine
DX: N30.01 Acute cystitis with hematuria (principal); I50.32 Chronic diastolic (congestive) heart failure; I13.0 Hypertensive heart and chronic kidney disease with heart failure and stage 1 through stage 4 chronic kidney disease, or unspecified chronic kidney disease; E86.0 Dehydration; K59.09 Other constipation; G89.4 Chronic pain syndrome; R53.1 Weakness; I48.0 Paroxysmal atrial fibrillation; N18.9 Chronic kidney disease, unspecified; Z95.0 Presence of cardiac pacemaker; E03.9 Hypothyroidism, unspecified; Z93.51 Cutaneous-vesicostomy status; K21.9 Gastro-esophageal reflux disease without esophagitis; N40.0 Benign prostatic hyperplasia without lower urinary tract symptoms; R29.6 Repeated falls; F41.9 Anxiety disorder, unspecified; M54.5 Low back pain; J44.9 Chronic obstructive pulmonary disease, unspecified; K57.30 Diverticulosis of large intestine without perforation or abscess without bleeding; R13.10 Dysphagia, unspecified; H40.9 Unspecified glaucoma; G47.00 Insomnia, unspecified; Z87.891 Personal history of nicotine dependence; Z20.822 Contact with and (suspected) exposure to COVID-19
CPT/HCPCS: 36415; 51702; 80048; 80053; 83690; 87077; 87635; 93005; 94640; 96365; 97162; 97530; 99285; 71046; 74177; 81003; 81015; 83735; 84484; 85025; 87086; 87186; 93010; 99223; 99232; 99239; J0696; J2270; J3490

== ENCOUNTER 2021-04-16 17:25 | Inpatient (IN) | payer MEDICARE, MEDICAID, SELFPAY ==
[2021-04-16] VITALS (65 sets, daily range): BP systolic 92–148; BP diastolic 47–104; PULSE 57–107; RESP 16–28; TEMP 36.4; O2SAT 84–98
--- NOTE | 2021-04-16 17:00 | RT.EKG_ITS ---
APPROVED REPORT Exam: Resting ECG Reason for Exam: right side rib pain Patient Location: E HR:98 bpm ECG Measurements Heart Rate 98 AXIS AL [id number] P [id number] QRSd 89 QRS 29 QT 414 T 51 QTc 531 Conclusion Atrial fibrillation...? atrial activity Ventricular premature complex...V complex w/ short R-R interval Prolonged QT interval...QTc >500mS
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
--- NOTE | 2021-04-16 17:15 | RT.EKG_ITS ---
APPROVED REPORT Exam: Resting ECG Reason for Exam: AMS, weakness Patient Location: E HR:72 bpm ECG Measurements Heart Rate 72 AXIS DE [id number] P [id number] QRSd 90 QRS 41 QT 410 T 48 QTc 448 Conclusion Afib/flut and V-paced complexes...other complexes, A-rate>240
--- NOTE | 2021-04-16 17:15 | DI.CT_ITS ---
Exam(s) CT HEAD WO EXAM: CT HEAD WO CLINICAL HISTORY: AMS. TECHNIQUE: Imaging Protocol: Axial computed tomography images with coronal and sagittal reformatted images were created and reviewed COMPARISON: CT CT HEAD CERVICAL SPINE WO from 09/04/2020 FINDINGS: There is moderate generalized cerebral atrophy. No evidence of acute intracranial hemorrhage, mass effect, or midline shift. The orbital structures are unremarkable. The temporal bone structures appear intact. Calvarium: Normal. Visualized Paranasal sinuses/Mastoids: Clear. Note is made of numerous air bubbles in the soft tissues of the face and there is small quantity gas also seen in the region of the cavernous sinuses, sella, and peripherally in the left middle fossa. Findings are suggestive of air embolism, please correlate clinically. IMPRESSION: Findings suggesting air embolism, correlation requested to rule out other etiologies including penetr ating injury. RADIATION DOSE DELIVERED: 669.53mGy.cm Total DLP 669.53mGy.cm Total DLP 35.19mGy CTDIvol DATA REPOSITORY: All CT scans at this facility are submitted to the National Radiology Data Registry (NRDR) Dose Index Registry (DIR) with the [employer] (ACR). RADIATION OPTIMIZATION: All CT scans at this facility use at least one of these dose optimization te chniques: automated exposure control; mA and/or kV adjustment per patient size (includes targeted exa ms where dose is matched to clinical indication); or iterative reconstruction.
--- NOTE | 2021-04-16 17:20 | ED.GENADUL_ITS ---
Discharge Plan Discharge Details Chief Complaint: Abd Prob Admit Date/Time: 04/16/21 22:47 Admit Provider: Cristobal Raya Attending Provider: Cristobal Raya Primary Care Provider: Lorena Chong ED Provider: Andreea Alatorre Discharge Data Discharge Date/Time-TO BE ENTERED AT DEPARTURE: 04/17/21 00:57 Medical Decision Making Patient is an 86-year-old male, well-known to myself in the department, presenting today via EMS with altered mental status. EMS reports that home health came to evaluate the patient and found difficult to arise. Was endorsing some abdominal pain with EMS but EMS reports that this is chronic for him.. Has been hemodynamically stable. Normal BGL. No recent known Illness. On exam, patient appears acutely ill. He appears lethargic. Mucous membranes are dry, eyes are bloodshot. Normal cardiac auscultation, aside from irregularly irregular rhythm which is baseline for the patient. Lungs are clear. I do not appreciate any rash. With his lethargy and AMS, will obtain head CT, CXR. Concerned for possible infectious etiology. Past medical history is pertinent for GERD, chronic pain, suprapubic catheter, hypothyroidism, pacemaker, paroxysmal atrial fibrillation, tachybradycardia syndrome, COPD, anxiety, hypertension, chronic kidney disease, diastolic heart failure. Patient is on Pradaxa Labs reviewed. No leukocytosis. Hemoglobin is slightly low but this appears baseline for the patient. Lactate within normal limits. Creatinine elevated at 1.5 which appears baseline for the patient. Contacted by radiologist who advises that patient has free air in CSF, behind the orbits fairly diffusely 100 cc. Unclear where this is from. Patient is sleeping internal evaluation. Difficult to arouse. Does arouse to pain and moaning. Attempts to speak is difficult to understand. No meningismus. Pain only with palpation of the abdomen at this time. Will obtain CT chest/ab/pelvis to look for possible source of free air. Will begin on antibiotics with the free air in the CSF space. Contacted by the radilogist again, they are concerned the air is coming fromt he right arm. I reevaluated the patient. I only see the break in the skin where his current IV is in place. Consulted with neurology at [facility] [place]. They were able to review images, they are unclear what to make of the air and will call back after speaking with their attending Neurosurgery called back, they advised this is likely associated with the IV placement when he came here. Placing flat could help with free air. this is not mandatory if not causing him issues. If leaking of clear fluid or salty/metalic taste, neurologic deficit, needs to return immediately. Reevaluated the patietn and double checked his HEENT exam, no abnormality noted. UA concerning for UTI. He has received abx. Patient has cleared sigfnicantly. He is back to baseline compared to previous visits. He has no focal deficits noted. Consulted with hospitalist who agrees to admission for UTI, air embolism and AMS. Spoke with patients friend Ed at patient's request. HPI General Mode of arrival: EMS . Date/Time Provider Initiated Documentation: 04/16/21 18:08 . Limitations to Documentation: altered mental status . Information obtained by: patient (very limited), EMS, RN notes reviewed and old records reviewed . HPI Narrative: Patient is an 86-year-old male, brought in via EMS, with chief complaint of altered mental status. Patient has been lethargic throughout the course the day. EMS reports that he was only responsive to painful stimuli when they picked him up. They state that he has begun turning around and perking up a little bit more after small fluid bolus. Patient denies any fevers or chills. Denies headache. Only complaint to EMS is abdominal pain. Denies striking his head. Denies any recent trauma. Related Data Home Medications Medication Instructions Recorded Confirmed potassium chloride [Klor-Con M20] 20 meq PO DAILY AM #30 tabcr 07/18/15 04/16/21 mirtazapine [Remeron] 15 mg PO HS 03/04/16 04/16/21 levothyroxine 75 mcg PO DAILY@0600 tab 04/13/16 04/16/21 furosemide 40 mg PO DAILY 10/22/16 04/16/21 cholecalciferol (vitamin D3) 1 tab PO DAILY 08/01/17 04/16/21 bisacodyl 10 mg WA DAILY PRN 12/30/17 04/16/21 docusate sodium [Colace] 100 mg PO BID 11/30/18 04/16/21 sennosides [senna] 8.6 mg PO HS 11/30/18 04/16/21 ursodiol 250 mg PO BID 03/16/20 04/16/21 multivitamin [Tab-A-Raghu] 1 tab PO DAILY 05/12/20 04/16/21 Flovent HFA 2 puff INHALATION BID 09/04/20 04/16/21 Spiriva with HandiHaler 1 cap INHALATION DAILY 09/04/20 04/16/21 albuterol sulfate [Ventolin HFA] 2 puff INHALATION QID PRN PRN 09/04/20 04/16/21 latanoprost 1 drp OPHTHALMIC (EYE) HS 09/04/20 04/16/21 magnesium hydroxide 30 ml PO DAILY PRN 09/04/20 04/16/21 metoprolol tartrate 75 mg PO BID 09/04/20 04/16/21 pantoprazole 40 mg PO DAILY 09/04/20 04/16/21 ropinirole 2 mg PO QPM 09/06/20 04/16/21 Myrbetriq 50 mg PO DAILY #30 tab 09/13/20 04/16/21 Pradaxa 75 mg PO BID 11/05/20 04/16/21 acetaminophen [Tylenol] 650 mg PO Q6H PRN PRN 11/05/20 04/16/21 nitroglycerin 0.4 mg SUBLINGUAL PRN PRN 11/05/20 04/16/21 sucralfate [Carafate] 1 gm PO QACHS #14 tab 01/31/21 04/16/21 lidocaine 1 patch DAILY 03/04/21 04/16/21 Acidophilus-Pectin 1 cap PO TID 03/21/21 04/16/21 dorzolamide 1 drp OPHTHALMIC (EYE) QAM 03/21/21 04/16/21 fluticasone propionate 2 spray INTRANASAL BID 03/21/21 04/16/21 oxycodone 5 mg PO TID PRN 03/21/21 04/16/21 amoxicillin-pot clavulanate 1 tab PO BID #14 tab 03/23/21 04/16/21 [Augmentin] lactulose 20 g PO BID #1200 ml 03/23/21 04/16/21 ondansetron 4 mg PO QID PRN PRN #20 tab 03/23/21 04/16/21 polyethylene glycol 3350 17 g PO BID #30 ea 03/23/21 04/16/21 clonazepam 0.5 mg tablet 0.5 mg PO BID #60 tab 03/27/21 04/16/21 fentanyl 12 mcg/hr transdermal 1 patch TRANSDERMAL Q72H #10 ea 04/08/21 04/16/21 patch MDD 12 mcg Previous Rx's Medication Instructions Recorded potassium chloride [Klor-Con M20] 20 meq PO DAILY AM #30 tabcr 07/18/15 levothyroxine 75 mcg PO DAILY@0600 tab 04/13/16 Myrbetriq 50 mg PO DAILY #30 tab 09/13/20 sucralfate [Carafate] 1 gm PO QACHS #14 tab 01/31/21 amoxicillin-pot clavulanate 1 tab PO BID #14 tab 03/23/21 [Augmentin] lactulose 20 g PO BID #1200 ml 03/23/21 ondansetron 4 mg PO QID PRN PRN #20 tab 03/23/21 polyethylene glycol 3350 17 g PO BID #30 ea 03/23/21 clonazepam 0.5 mg tablet 0.5 mg PO BID #60 tab 03/27/21 fentanyl 12 mcg/hr transdermal 1 patch TRANSDERMAL Q72H #10 ea 04/08/21 patch MDD 12 mcg Allergies Allergy/AdvReac Type Severity Reaction Status Date / Time banana Allergy Mild Skin Rash Unverified 04/16/21 22:47 formoterol fumarate AdvReac Intermediate Ineffective Unverified 04/16/21 22:47 [From Dulera] per Pt mometasone furoate AdvReac Intermediate Ineffective Unverified 04/16/21 22:47 [From Dulera] per Pt hydrocodone AdvReac Unknown Dizziness/L Unverified 04/16/21 22:47 ightheade General CINTIA: 3 Review of Systems Unobtainable due to mental condition [facility] Medical History All medications reviewed Anemia associated with acute blood loss Anxiety Atrial fibrillation Bilateral hydrocele BPH (benign prostatic hyperplasia) Chronic dyspnea Chronic GERD Chronic kidney disease (CKD) Chronic lower back pain Chronic obstructive lung disease Chronic pain Diverticulosis of large intestine without diverticulitis Dysphagia Essential hypertension GERD (gastroesophageal reflux disease) Glaucoma Gross hematuria Health care proxy on file niece Taisha Montes RN Insomnia Lives alone with help available neighbor lives next door Polyp of colon Spinal stenosis of lumbar region Suprapubic catheter Tachycardia-bradycardia Unintentional weight loss Walker as ambulation aid Surgical History Colonoscopy - MAC Pacemaker S/P TURP Family History Niece No problems noted. Social History Smoking/Tobacco Use Status: Former Tobacco Use Smoking risk assessment performed?: Yes Alcohol Intake: former Drug use: Never Substance use type: does not use Caregiver/Support person: No Household members: none Housing: other Details: lives in basement of old farmhouse; afraid of going upstairs Number of Children: 0 Communication Needs: Hard of Hearing and Corrective Lenses Education Level: vocational Do you need help understanding health information?: Always current occupation: retired Pets and animals: No Current gender identity: male What is your relationship status?: never How often do you talk on the phone with friends or family?: three or more times per week How often do you get together with friends or relatives?: twice per week Panel score (0-1 are the most socially isolated patients): 1 What type of physical activity do you participate in: none and sedentary lifestyle Special debi needs: No Agree to transfusion: Yes Carbon monox detector in home: No Firearms in home: Yes Do you feel safe at home: Yes Do you feel safe in your relationship?: Yes Additional Social history: Brenden lives in the basement of an old delapidated farmhouse. He heats with wood but leaves his door open so he can breathe. Friend Casa lives about 100-200 yards away. He checks on Brenden regularly--chops, stacks and loads his wood for him. Brenden's closest living relative is his grandniece, Taisha Montes, who is a Home Health nurse. He is her grandmother's baby brother. No one else is alive in his generation. He never . No children. Has always lived on his own terms. Not going anywhere. Exam Const General: not healthy appearing, no acute distress, well developed, ill appearing acutely and chronically and lethargic Nutritional Appearance: average body habitus and well nourished Orientation: confused HENMT Head: normal to inspection, no palpable skull fracture, normocephalic and atraumatic Ears: hearing grossly normal bilaterally, external ears normal and TM's normal bilaterally General nose exam: external nose normal Mouth: oral mucosae normal, lip normal and tongue normal Throat: posterior oropharynx normal Eyes General: appearance normal, both eyes and all related structures Visual Ocampo: normal visual ocampo by confrontation Alignment and Position: alignment normal Periorbital: periorbital findings normal Eyelids: eyelids normal Conjunctivae: conjunctivae normal Pupils: PERRL EOM: EOM intact bilaterally Neck Neck: normal visual inspection, full ROM, no lymphadenopathy, no meningeal signs, trachea midline and supple Chest Chest: normal inspection of the chest, normal palpation of entire chest wall, no crepitus and no localized rib tenderness Resp Effort & Inspection: normal respiratory effort, able to speak in complete sentences and no respiratory distress Auscultation: clear to auscultation bilaterally, no rales, no rhonchi and no wheezes Cardio Rate: regular rate Rhythm: regular rhythm Heart Sounds: S1 normal and S2 normal GI Inspection: normal to inspection, no abdominal wall ecchymosis, no edema and non-distended Palpation: soft, no hepatosplenomegaly, not firm, no guarding, no pulsatile masses, not rigid and nontender Auscultation: normal bowel sounds Back/Spine/Pelvis Back: no CVA tenderness Cervical Spine: normal cervical lordosis and cervical ROM normal Thoracic/Lumbar Spine: thoracic and lumbar spine normal to inspection, thoraco- lumbar ROM normal, No thoraco-lumbar ROM limited, No thoraco-lumbar spasm and No thoracic spinal tenderness Pelvis: no pain with anterior-posterior compression and no pain with lateral compression Skin General skin exam: no rashes or lesions noted Lesions: no lesions Rashes: no rashes Trauma: no lacerations or abrasions Wounds: no wounds Neuro General: patient alert, patient awake, patient oriented x3, gait normal, tone normal and moves all extremities Cranial Nerves: CN's II-XI intact bilaterally Cognition: normal cognition Speech: speech normal Gait: normal gait Motor: muscle tone normal throughout and strength 5/5 throughout Sensory Exam: no sensory deficits noted (no saddle paresthesias) Extrem General: normal to inspection, full ROM, capillary refill normal, no pedal edema and no calf tenderness Psych Appearance: grossly normal and well kempt Mental Status: mental status grossly normal Speech and Movement: speech and movement normal
[2021-04-16 17:43] LABS: Lactate 0.9 mmol/L (0.6-1.4)
[2021-04-16 17:46] LABS: Abs Immature Grans 0.03 10^3/uL (0.0-0.06); Absolute Basophil Count 0.02 10^3/uL (0.0-0.2); Absolute Eosinophil Count 0.15 10^3/uL (0.0-0.7); Absolute Lymphocyte Count 1.14 10^3/uL (1.2-3.4); Absolute Monocyte Count 0.54 10^3/uL (0.1-0.8); Absolute Neutrophil Count 2.85 10^3/uL (1.2-6.7); Basophils % 0.4; Eosinophils % 3.2; HCT 41.8 % (40.0-50.0); Immature Grans % 0.6; Lymphocytes % 24.1; MCHC 31.1 % (32.0-36.0); MCV 96.3 fL (80-95); MPV 9.9 fL (8.0-11.0); Monocytes % 11.4; Neutrophils % 60.3; Nucleated RBC 0 %; Platelet Count 202 10^3/uL (130-400); RBC 4.34 10^6/uL (4.36-5.78); RDW 16.3 % (11.8-14.1); WBC 4.73 10^3/uL (4.4-10.8)
[2021-04-16] MEDS: Normal Saline 1,000 ML 125 ML IV (17:53)
[2021-04-16 17:57] LABS: Ammonia 19 umol/L (11-32); INR 1.2 (0.9-1.1); Prothrombin Time 11.9 sec (9.3-11.0)
[2021-04-16 18:07] LABS: ALT 16 U/L (16-63); AST 22 U/L (15-37); Alkaline Phosphatase 102 U/L (46-116); Anion Gap 4.5 mmol/L (3-11); BUN 24 mg/dL (7-18); Bilirubin, Total 0.8 mg/dL (0.2-1.0); CO2 32.5 mmol/L (21.0-32.0); CREATININE 1.5 mg/dL (0.70-1.30); Calcium 9.1 mg/dL (8.5-10.1); Chloride 107 mmol/L (98-107); Estimated GFR 44.48 (mL/min/1.73m2); Glucose 100 mg/dL (74-106); Magnesium 2.4 mg/dL (1.8-2.4); Sodium 144 mmol/L (136-145); TSH (W/Ref FT4) 4.36 uIU/mL (0.36-3.74); Total Protein 6.9 g/dL (6.4-8.2)
[2021-04-16 18:10] LABS: Troponin I < 0.05 ng/mL (<0.06)
[2021-04-16 18:24] LABS: ETHANOL BLOOD < 3.0 mg/dL (<3)
[2021-04-16 18:28] LABS: FREE T4 1.42 ng/dL (0.76-1.46)
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
--- NOTE | 2021-04-16 19:15 | DI.VRAD_ITS ---
Addendum created by Hardy Calderon MD on 04/16/2021 7:21:20 PM EDT: THIS REPORT CONTAINS FINDINGS THAT MAY BE CRITICAL TO PATIENT CARE. The findings were verbally communicated by me to ZULEYMA BUTLER via telephone conference at 7:20 PM EDT on 04/16/2021. The findings were acknowledged and understood. Initial report created on 04/16/2021 7:15:23 PM EDT: PROCEDURE INFORMATION: Exam: CT Head Without Contrast Exam date and time: 04/16/2021 5:21 PM Age: 86 years old Clinical indication: Other: AMS TECHNIQUE: Imaging protocol: Computed tomography of the head without contrast. COMPARISON: CT HEAD CERVICAL SPINE WO 09/04/2020 14:26 FINDINGS: This Brain: Brain shows mild involutional change and chronic white matter hypodensities similar to previous exam. No hemorrhage, mass or infarct is evident. Cerebral ventricles: There is minimal ventricular enlargement related to cerebral atrophy. Pituitary gland and sella: Normal. No enlargement. Air bubbles are present within the CSF of the sella and adjacent cavernous sinuses. Paranasal sinuses: Visualized sinuses are unremarkable. No fluid levels or mucosal thickening. Mastoid air cells: Visualized mastoid air cells are well aerated. Orbital cavity: There are a few air bubbles within the right orbit. Bones/joints: A few air bubbles are present within bone marrow. Soft tissues: Extensive small air bubbles are scattered throughout the soft tissues at the base of the skull. IMPRESSION: Air bubbles within soft tissues, CSF spaces and bone marrow suggest the patient has undergone an air embolism. The etiology of this is unknown. Item thumb Dictated and Authenticated by: Hardy Calderon MD. Ordering:LIBIA Doran MD
--- NOTE | 2021-04-16 19:30 | DI.CT_ITS ---
Exam(s) CT CHEST/ABD/PEL W EXAM: CT CHEST/ABD/PEL W CLINICAL HISTORY: free air in csf TECHNIQUE: CT examination of the chest, abdomen, and pelvis was performed with intravenous infusion of 100 cc of Omnipaque 350. COMPARISON: CT CT ABDOMEN PELVIS W from 03/21/2021 FINDINGS: The lungs show mild changes of dependent atelectasis and are otherwise clear. There appear to be mil d to moderate pulmonary emphysematous changes. Note is made of a transvenous cardiac pacemaker in position. Note is made of gas in right upper arm veins, this is presumably the source of air embolism seen on c ranial CT today.. There is no pleural effusion seen. There is no mediastinal or hilar adenopathy. Pulmonary arteries are unremarkable with no evidence of pulmonary embolic disease. Thoracic aorta and major branches appear intact with no evidence of aneurysm or dissection. No bony abnormality seen in the thorax. The liver shows geographic decreased attenuation consistent with hepatic steatosis.. Note is made of a prior cholecystectomy, no biliary dilatation seen. No abnormality seen involving the spleen which shows a to typical arterial phase appearance with some incidental small calcified granulomas.. Pancreas appears intact. The adrenals are unremarkable in appearance. The kidneys appear intact with no evidence of hydroneph rosis or nephrolithiasis. Probable mild bilateral renal cortical atrophy. There is a suprapubic catheter and the bladder is essentially empty. Moderate prostatic enlargement noted. Abdominal aorta and major visceral branches appear intact. No significant abdominal wall hernia seen. No significant abdominal or pelvic adenopathy. No focal bowel pathology. No evidence of appendicitis or diverticulitis. IMPRESSION: No evidence of acute process of the chest, abdomen, or pelvis. Gas in right arm veins is the probabl e source of air embolism identified on cranial CT today. RADIATION DOSE DELIVERED: 1,397.16mGy.cm Total DLP 1,397.16mGy.cm Total DLP 21.07mGy CTDIvol
[2021-04-16] MEDS: Omnipaque 350 MG/ML 100 ML BTL IJ (19:54)
[2021-04-16] MEDS: Normal Saline - Diluent 50 ML VIAL IV (19:54)
[2021-04-16] MEDS: Normal Saline Flush 10 ML SYR IVP (19:55)
[2021-04-16 20:06] LABS: Bilirubin Negative (Negative); Blood Negative (Negative); Clarity Clear (Clear); Glucose Negative (Negative); Ketones Negative (Negative); Leukocyte Esterase Trace (Negative); Nitrite Positive (Negative); Urobilinogen 0.2 EU/dL (Up TO 0.2)
--- NOTE | 2021-04-16 20:09 | NUR.NOTE ---
pt returns from CT accompanied by nurse, no signs of distress, VS WNL, pt placed on tele monitor, repositioned for comfort, will continue to monitor
[2021-04-16 20:23] LABS: *AMPHETAMINES SCREEN URINE Negative (Negative); *BARBITURATES SCREEN URINE Negative (Negative); *BENZODIAZEPINES SCREEN URINE Negative (Negative); Cannabinoids THC Negative (Negative); Cocaine Screen,Urine Negative (Negative); METHADONE URINE SCREEN Negative (Negative); OPIATES URINE SCREEN Negative (Negative)
[2021-04-16 20:25] LABS: Tricyclic Antidepressants Negative (Negative)
[2021-04-16 20:48] LABS: Bacteria Many HPF (Negative); C & S Indicated? Yes; Casts Negative LPF (Negative); Crystals Negative HPF (Negative); Epithelial Cells Negative HPF (Negative); Mucus Negative (Negative); Other Cells Negative (Negative); RBC Negative HPF (0-2)
--- NOTE | 2021-04-16 20:55 | DI.VRAD_ITS ---
Addendum created by Hardy Calderon MD on 04/16/2021 9:06:50 PM EDT: THIS REPORT CONTAINS FINDINGS THAT MAY BE CRITICAL TO PATIENT CARE. The findings were verbally communicated by me to ZULEYMA BUTLER via telephone conference at 9:06 PM EDT on 04/16/2021. The findings were acknowledged and understood. Initial report created on 04/16/2021 8:54:53 PM EDT: PROCEDURE INFORMATION: Exam: CT Chest With Contrast; Diagnostic Exam date and time: 04/16/2021 7:57 PM Age: 86 years old Clinical indication: Other: Free air in csf TECHNIQUE: Imaging protocol: Diagnostic computed tomography of the chest with contrast. 3D rendering (Not supervised by radiologist): MIP and/or 3D reconstructed images were created by the technologist. COMPARISON: CT CHEST/ABD/PEL W 04/03/2021 12:21 FINDINGS: Thyroid: Normal. No significant nodule or enlargement. Trachea: Normal. Lungs: There is some mild dependent atelectasis in the posterior lung bases. Pleural spaces: Small right pleural effusion is layered posteriorly. There is no pneumothorax. Heart: No cardiomegaly. No pericardial effusion. Cardiac pacemaker is Coronary arteries: No significant coronary artery calcification. Esophagus: No esophageal mass or wall thickening. No hiatal hernia. Mediastinal space: Normal. No mass or adenopathy. No mediastinal emphysema. Pulmonary arteries: Nonenlarged. No filling defects demonstrated. Aorta: Unremarkable. No aortic aneurysm or significant atherosclerosis. Lymph nodes: No enlarged mediastinal or axillary lymph nodes. Bones/joints: Unremarkable. No acute fracture. Soft tissues: Air bubbles are present within vascular structures in the right upper extremity above the elbow. . IMPRESSION: 1. There are air bubbles within right upper extremity veins. This probably is the source of the patient's presumed air embolus. 2. Small right pleural effusion is present. There is no other significant abnormality in the thorax. PROCEDURE INFORMATION: Exam: CT Abdomen And Pelvis With Contrast Exam date and time: 04/16/2021 7:57 PM Age: 86 years old Clinical indication: Other: Free air in csf TECHNIQUE: Imaging protocol: Computed tomography of the abdomen and pelvis with contrast. 3D rendering (Not supervised by radiologist): MIP and/or 3D reconstructed images were created by the technologist. COMPARISON: CT CHEST/ABD/PEL W 04/03/2021 12:21 FINDINGS: Lungs: Visualized lung bases are clear. Liver: Normal. No mass or intrahepatic biliary ductal dilatation. Gallbladder and bile ducts: Previous cholecystectomy. Pancreas: Normal. No mass or ductal dilation. Spleen: Normal. No splenomegaly. Adrenal glands: Normal. No mass. Kidneys and ureters: Normal. No hydronephrosis, calculus, cyst or mass. Stomach and bowel: Stomach and small bowel are normal. The colon exhibits extensive diverticular disease throughout the descending and sigmoid segments but without acute inflammatory changes to indicate active diverticulitis.. Appendix: No evidence of appendicitis. Intraperitoneal space: Unremarkable. No free air. No significant fluid collection. Vasculature: Unremarkable. Aorta is heavily calcified with no aneurysm. Lymph nodes: No enlarged retroperitoneal or mesenteric lymph nodes. Urinary bladder: Suprapubic catheter is in place within the bladder. Bladder wall appears thickened. Reproductive: Prostate is enlarged to 6.3 cm transverse diameter. Bones/joints: Unremarkable. No acute fracture. No lytic lesion. Soft tissues: Unremarkable. IMPRESSION: 1. Extensive distal colonic diverticulosis without signs of acute diverticulitis. 2. No evidence of free air within the abdomen or pelvis. Dictated and Authenticated by: Hardy Calderon MD. Ordering:LIBIA Doran MD
[2021-04-16] MEDS: MEROPENEM 1 GM in Normal Saline 100 ML IVPB (21:07)
[2021-04-16] MEDS: VANCOMYCIN 1,500 MG in Normal Saline 250 ML 166.6666 MG IVPB (21:09)
[2021-04-16 23:01] LABS: Troponin I < 0.05 ng/mL (<0.06)
[2021-04-16 23:26] LABS: Source Nasal/Nares
[2021-04-17] VITALS (14 sets, daily range): BP systolic 116–156; BP diastolic 67–89; PULSE 61–111; RESP 16–20; TEMP 36.4–36.7; O2SAT 94–98
--- NOTE | 2021-04-17 00:04 | HPE_ITS ---
Date of service: 04/17/21 Time of Service: 00:05 Assessment and Plan Assessment and plan (1) Chronic GERD: Status: Chronic Assessment and plan: Cont pantoprazole and carafate (2) Chronic lower back pain: Status: Acute Assessment and plan: Cont fentanyl patch and prn oxycodone. (3) Suprapubic catheter: Status: Chronic Assessment and plan: May need changing. (4) Hypothyroidism: Status: Chronic Assessment and plan: Cont replacement tx. Qualifiers: Hypothyroidism type: unspecified Qualified Code(s): E03.9 - Hypothyroidism, unspecified (5) Tachycardia-bradycardia syndrome: Status: Acute Assessment and plan: Has pacemaker; paced rhythm noted on EKG (6) UTI (urinary tract infection): Status: Acute Assessment and plan: Previous UTIs grew E.Coli resistance to multiple antibiotics. Given meropenem in the ED and will continue. Culture pending. Qualifiers: Urinary tract infection type: acute cystitis Hematuria presence: with hematuria Qualified Code(s): N30.01 - Acute cystitis with hematuria (7) COPD (chronic obstructive pulmonary disease): Status: Chronic Assessment and plan: No exacerbation. On albuterol and flovent inhalers at home; will give in updraft form now d/t altered mental status. Qualifiers: COPD type: unspecified COPD Qualified Code(s): J44.9 - Chronic obstructive pulmonary disease, unspecified (8) Anxiety disorder: Status: Chronic Assessment and plan: Con clonazepam 0.5mg BID scheduled at home; prn currently. (9) Hypertension: Status: Chronic Assessment and plan: Cont metoprolol Monitor Qualifiers: Hypertension type: essential hypertension Qualified Code(s): I10 - Essential (primary) hypertension (10) History of kidney stones: Status: Chronic Assessment and plan: No clinical signs/symptoms of kidney stones. Renal US in September 2020 showed a lesion in the bladder; clot vs mass. CT abd/pelvis this admission w/o evidence nephrolithiasis. (11) Atrial fibrillation: Status: Chronic Assessment and plan: Cont Pradax for AC and metoprolol. Qualifiers: Atrial fibrillation type: paroxysmal Qualified Code(s): I48.0 - Paroxysmal atrial fibrillation (12) Air embolism: Status: Acute Assessment and plan: Appears to be d/t veinous catheter in the arm Watch for symptoms that this is causing morbidity. History of Present Illness History of Present Illness Chief Complaint: Lethargy Narrative: This is an 86 yo male with a PMH of diastolic CHF, atrial fibrillation, COPD, iPAD, CKD, GERD/Barrets esophagus, chronic pain, suprapubic catheter / UTIs, dysphagia, hypothyroidism, chronic constipation, BPH, anxiety disorder. He presented from home via EMS d/t lethargy throughout the day of presentation. EMS stated he was responsive only to painful stimuli with some improvement during transport with the administration of IV fluids. He complained of abdominal pain. Denied diarrhea, emesis. No F/C, cough. No falls, trauma. His BP was 120/59. HR was irregular in the 70's to low 100's / afib, O2 saturations in mid 90's on RA. Afebrile. WBC count normal. Hgb 13. INR 1.2. Na 144, K 4, BUN24, Creatinine 1.5. Mg 2.4. TSH 4.36. UA + nitrite, tr luek est, 5-10 WBCs, Many bacteria. Meropenem and Vancomycin administered in the ED. CT head obtained d/t his lethargy. Free air noted in the CSF, behind orbits. This led to CT of chest/ab/pelvis. Air noted in left upper extremity vein where IV was present. [facility] [place] watching for symptoms of leaking of clear fluid, salty/metallic tase or neurologic deficits. [facility] Medical History All medications reviewed Anemia associated with acute blood loss Anxiety Atrial fibrillation Bilateral hydrocele BPH (benign prostatic hyperplasia) Chronic dyspnea Chronic GERD Chronic kidney disease (CKD) Chronic lower back pain Chronic obstructive lung disease Chronic pain Diverticulosis of large intestine without diverticulitis Dysphagia Essential hypertension GERD (gastroesophageal reflux disease) Glaucoma Gross hematuria Health care proxy on file niece Taisha Montes RN Insomnia Lives alone with help available neighbor lives next door Polyp of colon Spinal stenosis of lumbar region Suprapubic catheter Tachycardia-bradycardia Unintentional weight loss Walker as ambulation aid Surgical History Colonoscopy - MAC Pacemaker S/P TURP Family History Niece No problems noted. Social History Smoking/Tobacco Use Status: Former Tobacco Use Smoking risk assessment performed?: Yes Alcohol Intake: former Drug use: Never Substance use type: does not use Caregiver/Support person: No Household members: none Housing: other Details: lives in basement of old farmhouse; afraid of going upstairs Number of Children: 0 Communication Needs: Hard of Hearing and Corrective Lenses Education Level: vocational Do you need help understanding health information?: Always current occupation: retired Pets and animals: No Current gender identity: male What is your relationship status?: never How often do you talk on the phone with friends or family?: three or more times per week How often do you get together with friends or relatives?: twice per week Panel score (0-1 are the most socially isolated patients): 1 What type of physical activity do you participate in: none and sedentary lifestyle Special debi needs: No Agree to transfusion: Yes Carbon monox detector in home: No Firearms in home: Yes Do you feel safe at home: Yes Do you feel safe in your relationship?: Yes Additional Social history: Brenden lives in the basement of an old delapidated farmhouse. He heats with wood but leaves his door open so he can breathe. Friend Casa lives about 100-200 yards away. He checks on Brenden regularly--chops, stacks and loads his wood for him. Brenden's closest living relative is his grandniece, Taisha Montes, who is a Home Health nurse. He is her grandmother's baby brother. No one else is alive in his generation. He never . No children. Has always lived on his own terms. Not going anywhere. Meds Allergies and Home Medications Allergies Allergy/AdvReac Type Severity Reaction Status Date / Time banana Allergy Mild Skin Rash Unverified 04/16/21 22:47 formoterol fumarate AdvReac Intermediate Ineffective Unverified 04/16/21 22:47 [From Dulera] per Pt mometasone furoate AdvReac Intermediate Ineffective Unverified 04/16/21 22:47 [From Dulera] per Pt hydrocodone AdvReac Unknown Dizziness/L Unverified 04/16/21 22:47 ightheade Home Medications Medication Instructions Recorded Confirmed Type potassium chloride [Klor-Con M20] 20 meq PO DAILY AM #30 tabcr 07/18/15 04/16/21 Rx mirtazapine [Remeron] 15 mg PO HS 03/04/16 04/16/21 History levothyroxine 75 mcg PO DAILY@0600 tab 04/13/16 04/16/21 Rx furosemide 40 mg PO DAILY 10/22/16 04/16/21 History cholecalciferol (vitamin D3) 1 tab PO DAILY 08/01/17 04/16/21 History bisacodyl 10 mg ID DAILY PRN 12/30/17 04/16/21 History docusate sodium [Colace] 100 mg PO BID 11/30/18 04/16/21 History sennosides [senna] 8.6 mg PO HS 11/30/18 04/16/21 History ursodiol 250 mg PO BID 03/16/20 04/16/21 History multivitamin [Tab-A-Raghu] 1 tab PO DAILY 05/12/20 04/16/21 History Flovent HFA 2 puff INHALATION BID 09/04/20 04/16/21 History Spiriva with HandiHaler 1 cap INHALATION DAILY 09/04/20 04/16/21 History albuterol sulfate [Ventolin HFA] 2 puff INHALATION QID PRN PRN 09/04/20 04/16/21 History latanoprost 1 drp OPHTHALMIC (EYE) HS 09/04/20 04/16/21 History magnesium hydroxide 30 ml PO DAILY PRN 09/04/20 04/16/21 History metoprolol tartrate 75 mg PO BID 09/04/20 04/16/21 History pantoprazole 40 mg PO DAILY 09/04/20 04/16/21 History ropinirole 2 mg PO QPM 09/06/20 04/16/21 History Myrbetriq 50 mg PO DAILY #30 tab 09/13/20 04/16/21 Rx Pradaxa 75 mg PO BID 11/05/20 04/16/21 History acetaminophen [Tylenol] 650 mg PO Q6H PRN PRN 11/05/20 04/16/21 History nitroglycerin 0.4 mg SUBLINGUAL PRN PRN 11/05/20 04/16/21 History sucralfate [Carafate] 1 gm PO QACHS #14 tab 01/31/21 04/16/21 Rx lidocaine 1 patch DAILY 03/04/21 04/16/21 History Acidophilus-Pectin 1 cap PO TID 03/21/21 04/16/21 History dorzolamide 1 drp OPHTHALMIC (EYE) QAM 03/21/21 04/16/21 History fluticasone propionate 2 spray INTRANASAL BID 03/21/21 04/16/21 History oxycodone 5 mg PO TID PRN 03/21/21 04/16/21 History amoxicillin-pot clavulanate 1 tab PO BID #14 tab 03/23/21 04/16/21 Rx [Augmentin] lactulose 20 g PO BID #1200 ml 03/23/21 04/16/21 Rx ondansetron 4 mg PO QID PRN PRN #20 tab 03/23/21 04/16/21 Rx polyethylene glycol 3350 17 g PO BID #30 ea 03/23/21 04/16/21 Rx clonazepam 0.5 mg tablet 0.5 mg PO BID #60 tab 03/27/21 04/16/21 Rx fentanyl 12 mcg/hr transdermal 1 patch TRANSDERMAL Q72H #10 ea 04/08/21 04/16/21 Rx patch MDD 12 mcg Exam Const General: no acute distress and other (verbally threatening but smiles as if joking. No physical threats) Nutritional Appearance: average body habitus Orientation: confused [facility] Ears: hearing grossly normal bilaterally Eyes General: appearance normal, both eyes and all related structures Sclera: sclerae normal Resp Effort & Inspection: normal respiratory effort Auscultation: clear to auscultation bilaterally Cardio Rate: regular rate (V-paced) Heart Sounds: no murmurs GI Inspection: non-distended and other (suprapubic catheter in place.) Palpation: soft Skin General skin exam: no rashes or lesions noted Neuro General: moves all extremities Cranial Nerves: facial strength normal Speech: other (Mumbles ) Extrem General: no pedal edema and no calf tenderness Results Labs Result diagrams: 04/16/21 17:35 04/16/21 17:35 Labs: Laboratory Results - last 24 hr 04/16/21 04/16/21 04/16/21 17:35 17:35 17:35 WBC RBC Hgb Hct MCV MCH MCHC RDW Plt Count MPV Immature Gran % Neutrophils % Lymphocytes % Monocytes % Eosinophils % Basophils % Nucleated RBC % Absolute Neutrophils Absolute Lymphocytes Absolute Monocytes Absolute Eosinophils Absolute Basophils PT INR VBG Lactate 0.9 Sodium 144 Potassium 4.0 Chloride 107 Carbon Dioxide 32.5 H Anion Gap 4.5 BUN 24 H Creatinine 1.5 H Estimated GFR/1.73 m2 44.48 Glucose 100 Calcium 9.1 Magnesium 2.4 Total Bilirubin 0.8 AST 22 ALT 16 Alkaline Phosphatase 102 Ammonia 19 Troponin I < 0.05 Total Protein 6.9 Albumin 3.0 L TSH 4.36 H Free T4 1.42 Urine Color Urine Clarity Urine pH Ur Specific [place]augh Urine Protein Urine Ketones Urine Blood Urine Nitrite Urine Bilirubin Urine Urobilinogen Ur Leukocyte Esterase Urine RBC Urine WBC Ur Epithelial Cells Urine Crystals Urine Bacteria Urine Casts Urine Mucus Urine Other Ur Culture Indicated? Urine Glucose Urine Opiates Screen Urine Methadone Screen Ur Barbiturates Screen Ur Tricyclics Screen Ur Amphetamines Screen U Benzodiazepines Scrn Urine Cocaine Screen Ur THC Screen Ethyl Alcohol < 3.0 COVID-19 Source 04/16/21 04/16/21 04/16/21 17:35 17:35 19:33 WBC 4.73 RBC 4.34 L Hgb 13.0 L Hct 41.8 MCV 96.3 H MCH 30.0 MCHC 31.1 L RDW 16.3 H Plt Count 202 MPV 9.9 Immature Gran % 0.6 Neutrophils % 60.3 Lymphocytes % 24.1 Monocytes % 11.4 Eosinophils % 3.2 Basophils % 0.4 Nucleated RBC % 0 Absolute Neutrophils 2.85 Absolute Lymphocytes 1.14 L Absolute Monocytes 0.54 Absolute Eosinophils 0.15 Absolute Basophils 0.02 PT 11.9 H INR 1.2 H VBG Lactate Sodium Potassium Chloride Carbon Dioxide Anion Gap BUN Creatinine Estimated GFR/1.73 m2 Glucose Calcium Magnesium Total Bilirubin AST ALT Alkaline Phosphatase Ammonia Troponin I Total Protein Albumin TSH Free T4 Urine Color Urine Clarity Urine pH Ur Specific [place] Urine Protein Urine Ketones Urine Blood Urine Nitrite Urine Bilirubin Urine Urobilinogen Ur Leukocyte Esterase Urine RBC Urine WBC Ur Epithelial Cells Urine Crystals Urine Bacteria Urine Casts Urine Mucus Urine Other Ur Culture Indicated? Urine Glucose Urine Opiates Screen Negative Urine Methadone Screen Negative Ur Barbiturates Screen Negative Ur Tricyclics Screen Negative Ur Amphetamines Screen Negative U Benzodiazepines Scrn Negative Urine Cocaine Screen Negative Ur THC Screen Negative Ethyl Alcohol COVID-19 Source 04/16/21 04/16/21 04/16/21 19:33 22:38 23:16 WBC RBC Hgb Hct MCV MCH MCHC RDW Plt Count MPV Immature Gran % Neutrophils % Lymphocytes % Monocytes % Eosinophils % Basophils % Nucleated RBC % Absolute Neutrophils Absolute Lymphocytes Absolute Monocytes Absolute Eosinophils Absolute Basophils PT INR VBG Lactate Sodium Potassium Chloride Carbon Dioxide Anion Gap BUN Creatinine Estimated GFR/1.73 m2 Glucose Calcium Magnesium Total Bilirubin AST ALT Alkaline Phosphatase Ammonia Troponin I < 0.05 Total Protein Albumin TSH Free T4 Urine Color Yellow Urine Clarity Clear Urine pH 6.0 Ur Specific Stambaugh 1.020 Urine Protein Negative Urine Ketones Negative Urine Blood Negative Urine Nitrite Positive H Urine Bilirubin Negative Urine Urobilinogen 0.2 Ur Leukocyte Esterase Trace H Urine RBC Negative Urine WBC 5-10 Ur Epithelial Cells Negative Urine Crystals Negative Urine Bacteria Many Urine Casts Negative Urine Mucus Negative Urine Other Negative Ur Culture Indicated? Yes Urine Glucose Negative Urine Opiates Screen Urine Methadone Screen Ur Barbiturates Screen Ur Tricyclics Screen Ur Amphetamines Screen U Benzodiazepines Scrn Urine Cocaine Screen Ur THC Screen Ethyl Alcohol COVID-19 Source Nasal/Nares Last Vital Signs Temp 36.4 C L 04/16/21 17:21 Pulse 73 04/16/21 23:31 Resp 22 04/16/21 23:40 BP 136/71 04/16/21 23:31 Pulse Ox 96 04/16/21 23:40
--- NOTE | 2021-04-17 00:39 | NUR.NOTE ---
Lab called to verify covid swab collected; specimen in lab.Nursing Note:
--- NOTE | 2021-04-17 01:28 | NUR.NOTE ---
Patient was brought to the med-surg department from ED. He is confused, resistive and combative. Keeps saying, go get my fucking casket and leave me the hell alone. He was assessed as much as patient would allow also partial vitals were done as much as patient was allowed. Bed alarms were turned on.
[2021-04-17] MEDS: oxyCODONE 5 MG TAB PO ×2 (02:45→16:34)
[2021-04-17] MEDS: clonazePAM 0.5 MG TAB PO (02:45)
[2021-04-17] MEDS: Normal Saline 1,000 ML 125 ML IV ×2 (02:46→11:15)
[2021-04-17] MEDS: Levothyroxine 75 MCG TAB PO (05:25)
[2021-04-17] MEDS: Potassium Chloride 20 MEQ TABCR PO (05:25)
[2021-04-17] MEDS: Budesonide 0.5 MG/2 ML UPD VIAL UPD ×2 (07:47→19:52)
[2021-04-17] MEDS: Metoprolol 50 MG TAB 75 MG PO ×2 (07:52→19:54)
[2021-04-17] MEDS: Sucralfate 1 GM TAB PO ×4 (07:52→21:53)
[2021-04-17] MEDS: Lactobacillus Acidophilus CAP 1 CAP PO ×3 (07:52→19:58)
[2021-04-17 07:53] LABS: Abs Immature Grans 0.02 10^3/uL (0.0-0.06); Absolute Basophil Count 0.02 10^3/uL (0.0-0.2); Absolute Eosinophil Count 0.12 10^3/uL (0.0-0.7); Absolute Lymphocyte Count 1.23 10^3/uL (1.2-3.4); Absolute Neutrophil Count 2.51 10^3/uL (1.2-6.7); Basophils % 0.5; Eosinophils % 2.7; HCT 38.6 % (40.0-50.0); HGB 12.3 g/dL (13.5-17.5); Immature Grans % 0.5; MCH 29.6 pg (27.0-33.0); MCHC 31.9 % (32.0-36.0); MPV 10.4 fL (8.0-11.0); Monocytes % 11.4; Neutrophils % 56.9; Nucleated RBC 0 %; Platelet Count 178 10^3/uL (130-400); RBC 4.15 10^6/uL (4.36-5.78); RDW 16.8 % (11.8-14.1); RDW-SD 57.1 fL
[2021-04-17] MEDS: Cholecalciferol (Vitamin D3) 1,000 UNIT TAB 1000 UNITS PO (07:53)
[2021-04-17] MEDS: Docusate Sodium 100 MG CAP PO ×2 (07:53→19:58)
[2021-04-17] MEDS: Pantoprazole 40 MG TABCR PO (07:53)
[2021-04-17] MEDS: Polyethylene Glycol 3350 17 GM PACKET PO ×2 (07:53→19:52)
[2021-04-17] MEDS: fentaNYL 12 MCG PATCH TD (07:53)
[2021-04-17] MEDS: Lactulose 20 GM/30 ML CUP PO ×2 (08:05→19:54)
[2021-04-17 08:11] LABS: ALT 17 U/L (16-63); AST 21 U/L (15-37); Albumin 2.8 g/dL (3.4-5.0); Alkaline Phosphatase 86 U/L (46-116); Anion Gap 6.8 mmol/L (3-11); BUN 18 mg/dL (7-18); Bilirubin, Total 0.8 mg/dL (0.2-1.0); CO2 27.2 mmol/L (21.0-32.0); CREATININE 1.4 mg/dL (0.70-1.30); Calcium 8.5 mg/dL (8.5-10.1); Chloride 109 mmol/L (98-107); Estimated GFR 48.16 (mL/min/1.73m2); Glucose 87 mg/dL (74-106); Magnesium 2.1 mg/dL (1.8-2.4); Potassium 3.6 mmol/L (3.5-5.1); Sodium 143 mmol/L (136-145); Total Protein 6.4 g/dL (6.4-8.2)
[2021-04-17] MEDS: Tiotropium Bromide-Respimat 10 PUFF INH IH (08:16)
[2021-04-17] MEDS: Dorzolamide 2% 10 ML BTL OP (11:10)
[2021-04-17] MEDS: MEROPENEM 1 GM in Normal Saline 100 ML IVPB ×2 (11:10→20:00)
[2021-04-17] MEDS: Mirabegron 50 MG TABCR PO (11:11)
[2021-04-17] MEDS: Ursodiol 300 MG CAP PO (12:58)
--- NOTE | 2021-04-17 15:13 | PDOC.CMIN ---
- If Service Date Differs Date of service: 04/17/21 Time of Service: 15:13 Care Management Initial Assess REASON FOR HOSPITALIZATION:: UTI, AMS PAST MEDICAL HISTORY/PAST SURGICAL HISTORY:: Medical History . All medications reviewed. Anemia associated with acute blood loss. Anxiety. Atrial fibrillation. Bilateral hydrocele. BPH (benign prostatic hyperplasia). Chronic dyspnea. Chronic GERD. Chronic kidney disease (CKD). Chronic lower back pain. Chronic obstructive lung disease. Chronic pain. Diverticulosis of large intestine without diverticulitis. Dysphagia. Essential hypertension. GERD (gastroesophageal reflux disease). Glaucoma. Gross hematuria. Health care proxy on file. osmar Montes RN. Insomnia. Lives alone with help available. neighbor lives next door. Polyp of colon. Spinal stenosis of lumbar region. Suprapubic catheter. Tachycardia-bradycardia. Unintentional weight loss. Walker as ambulation aid. Surgical History . Colonoscopy - MAC. Pacemaker. S/P TURP PREVIOUS FUNCTIONAL STATUS/SOCIAL/FAMILY SUPPORTS:: Brenden resides alone in [place]. His neighbor, Ed, helps him out as needed. Brenden has Choices for Care, high/highest needs and his special education case manager is Annette Larson. Brenden states he occupies his time at home by watching westerns on television, playing cards, doing word search puzzles, and visiting with Ed. CURRENT FUNCTIONAL STATUS:: Dino was reclining in his chair when CM met with him. He was alert and confused. His mouth appeared dry. CM encouraged him to drink water which he did without hesitation.Dino reported no needs at this time. CM continues to follow. ADVANCE DIRECTIVES:: On file; friend Casa Cardona is appointed as Health Care Agent. Has patient been provided with info about the portal/API?: Yes Did the patient sign up for the portal?: No CODE STATUS:: DNR/DNI INSURANCE COVERAGE / FINANCIAL ISSUES:: Medicare and Medicaid. CURRENT HOME/COMMUNITY SERVICES/EQUIPMENT:: Brenden has Choices for Care high/highest needs; Annette Larson is his special education case manager. He has MOW and HH RN and OT. He owns a FWW, cane, and wheelchair. PRIMARY CARE PHYSICIAN:: Lorena Chong MD. POTENTIAL DISCHARGE NEEDS:: Follow up appointment with his PCP, resumption of [facility] SN/PT PATIENT/FAMILY EDUCATION NEEDS:: Discharge instructions, limitations, and follow up plan of care including Ask Me Three and self-management. ANTICIPATED BARRIERS TO DISCHARGE:: No anticipated barriers at this time. TRANSPORTATION:: Via [facility]. PLAN:: Anticipate Bill will return home with resumption of [facility] SN when medically cleared by provider. He will follow up with his PCP and discharge plan of care as directed. Bill will be driven home via [facility] private vehicle when ready. CM will continue to support Bill and any discharge planning needs.
--- NOTE | 2021-04-17 15:39 | UCONE_ITS ---
Date of service: 04/17/21 Time of Service: 15:39 Assessment and Plan Assessment and plan (1) Suprapubic catheter: Status: Chronic Assessment and plan: His home health providerrs can resume catheter arredondo ges monthly after his discharge History of Present Illness History of Present Illness Chief Complaint: Urinary retension Narrative: This is an 86-year-old gentleman who has a history of urinary retention. He has been maintained with an indwelling suprapubic tube since 2016. The tube is generally changed by his home health providers. He is currently hospitalized with lethargy. I have been asked to change his catheter while he is hospitalized. [facility] Medical History All medications reviewed Anemia associated with acute blood loss Anxiety Atrial fibrillation Bilateral hydrocele BPH (benign prostatic hyperplasia) Chronic dyspnea Chronic GERD Chronic kidney disease (CKD) Chronic lower back pain Chronic obstructive lung disease Chronic pain Diverticulosis of large intestine without diverticulitis Dysphagia Essential hypertension GERD (gastroesophageal reflux disease) Glaucoma Gross hematuria Health care proxy on file niece Taisha Montes RN Insomnia Lives alone with help available neighbor lives next door Polyp of colon Spinal stenosis of lumbar region Suprapubic catheter Tachycardia-bradycardia Unintentional weight loss Walker as ambulation aid Surgical History Colonoscopy - MAC Pacemaker S/P TURP Family History Niece No problems noted. Social History Smoking/Tobacco Use Status: Former Tobacco Use Smoking risk assessment performed?: Yes Alcohol Intake: former Drug use: Never Substance use type: does not use Caregiver/Support person: No Household members: none Housing: other Details: lives in basement of old farmhouse; afraid of going upstairs Number of Children: 0 Communication Needs: Hard of Hearing and Corrective Lenses Education Level: vocational Do you need help understanding health information?: Always current occupation: retired Pets and animals: No Current gender identity: male What is your relationship status?: never How often do you talk on the phone with friends or family?: three or more times per week How often do you get together with friends or relatives?: twice per week Panel score (0-1 are the most socially isolated patients): 1 What type of physical activity do you participate in: none and sedentary lifestyle Special debi needs: No Agree to transfusion: Yes Carbon monox detector in home: No Firearms in home: Yes Do you feel safe at home: Yes Do you feel safe in your relationship?: Yes Additional Social history: Brenden lives in the basement of an old delapidated farmhouse. He heats with wood but leaves his door open so he can breathe. Friend Casa lives about 100-200 yards away. He checks on Brenden regularly--chops, stacks and loads his wood for him. Brenden's closest living relative is his grandniece, Taisha Montes, who is a Home Health nurse. He is her grandmother's baby brother. No one else is alive in his generation. He never . No children. Has always lived on his own terms. Not going anywhere. Exam Narrative Exam Narrative: He appears chronic ill, but does not appear septic or toxic His vital signs are documented elsewhere The urine in his drainage bag is clear Results Last Vital Signs Temp 36.7 C 04/17/21 08:43 Pulse 64 04/17/21 08:43 Resp 18 04/17/21 08:43 BP 156/80 H 04/17/21 08:43 Pulse Ox 95 04/17/21 08:43 Labs Result diagrams: 04/18/21 06:10 04/18/21 06:10 Labs: Laboratory Results - last 24 hr 04/16/21 04/16/21 04/16/21 17:35 17:35 17:35 WBC RBC Hgb Hct MCV MCH MCHC RDW Plt Count MPV Immature Gran % Neutrophils % Lymphocytes % Monocytes % Eosinophils % Basophils % Nucleated RBC % Absolute Neutrophils Absolute Lymphocytes Absolute Monocytes Absolute Eosinophils Absolute Basophils PT INR VBG Lactate 0.9 Sodium 144 Potassium 4.0 Chloride 107 Carbon Dioxide 32.5 H Anion Gap 4.5 BUN 24 H Creatinine 1.5 H Estimated GFR/1.73 m2 44.48 Glucose 100 Calcium 9.1 Magnesium 2.4 Total Bilirubin 0.8 AST 22 ALT 16 Alkaline Phosphatase 102 Ammonia 19 Troponin I < 0.05 Total Protein 6.9 Albumin 3.0 L TSH 4.36 H Free T4 1.42 Urine Color Urine Clarity Urine pH Ur Specific Heath Urine Protein Urine Ketones Urine Blood Urine Nitrite Urine Bilirubin Urine Urobilinogen Ur Leukocyte Esterase Urine RBC Urine WBC Ur Epithelial Cells Urine Crystals Urine Bacteria Urine Casts Urine Mucus Urine Other Ur Culture Indicated? Urine Glucose Urine Opiates Screen Urine Methadone Screen Ur Barbiturates Screen Ur Tricyclics Screen Ur Amphetamines Screen U Benzodiazepines Scrn Urine Cocaine Screen Ur THC Screen Ethyl Alcohol < 3.0 COVID-19 Source 04/16/21 04/16/21 04/16/21 17:35 17:35 19:33 WBC 4.73 RBC 4.34 L Hgb 13.0 L Hct 41.8 MCV 96.3 H MCH 30.0 MCHC 31.1 L RDW 16.3 H Plt Count 202 MPV 9.9 Immature Gran % 0.6 Neutrophils % 60.3 Lymphocytes % 24.1 Monocytes % 11.4 Eosinophils % 3.2 Basophils % 0.4 Nucleated RBC % 0 Absolute Neutrophils 2.85 Absolute Lymphocytes 1.14 L Absolute Monocytes 0.54 Absolute Eosinophils 0.15 Absolute Basophils 0.02 PT 11.9 H INR 1.2 H VBG Lactate Sodium Potassium Chloride Carbon Dioxide Anion Gap BUN Creatinine Estimated GFR/1.73 m2 Glucose Calcium Magnesium Total Bilirubin AST ALT Alkaline Phosphatase Ammonia Troponin I Total Protein Albumin TSH Free T4 Urine Color Urine Clarity Urine pH Ur Specific Heath Urine Protein Urine Ketones Urine Blood Urine Nitrite Urine Bilirubin Urine Urobilinogen Ur Leukocyte Esterase Urine RBC Urine WBC Ur Epithelial Cells Urine Crystals Urine Bacteria Urine Casts Urine Mucus Urine Other Ur Culture Indicated? Urine Glucose Urine Opiates Screen Negative Urine Methadone Screen Negative Ur Barbiturates Screen Negative Ur Tricyclics Screen Negative Ur Amphetamines Screen Negative U Benzodiazepines Scrn Negative Urine Cocaine Screen Negative Ur THC Screen Negative Ethyl Alcohol COVID-19 Source 04/16/21 04/16/21 04/16/21 19:33 22:38 23:16 WBC RBC Hgb Hct MCV MCH MCHC RDW Plt Count MPV Immature Gran % Neutrophils % Lymphocytes % Monocytes % Eosinophils % Basophils % Nucleated RBC % Absolute Neutrophils Absolute Lymphocytes Absolute Monocytes Absolute Eosinophils Absolute Basophils PT INR VBG Lactate Sodium Potassium Chloride Carbon Dioxide Anion Gap BUN Creatinine Estimated GFR/1.73 m2 Glucose Calcium Magnesium Total Bilirubin AST ALT Alkaline Phosphatase Ammonia Troponin I < 0.05 Total Protein Albumin TSH Free T4 Urine Color Yellow Urine Clarity Clear Urine pH 6.0 Ur Specific Heath 1.020 Urine Protein Negative Urine Ketones Negative Urine Blood Negative Urine Nitrite Positive H Urine Bilirubin Negative Urine Urobilinogen 0.2 Ur Leukocyte Esterase Trace H Urine RBC Negative Urine WBC 5-10 Ur Epithelial Cells Negative Urine Crystals Negative Urine Bacteria Many Urine Casts Negative Urine Mucus Negative Urine Other Negative Ur Culture Indicated? Yes Urine Glucose Negative Urine Opiates Screen Urine Methadone Screen Ur Barbiturates Screen Ur Tricyclics Screen Ur Amphetamines Screen U Benzodiazepines Scrn Urine Cocaine Screen Ur THC Screen Ethyl Alcohol COVID-19 Source Nasal/Nares 04/17/21 04/17/21 07:13 07:13 WBC 4.40 RBC 4.15 L Hgb 12.3 L Hct 38.6 L MCV 93.0 D MCH 29.6 MCHC 31.9 L RDW 16.8 H Plt Count 178 MPV 10.4 Immature Gran % 0.5 Neutrophils % 56.9 Lymphocytes % 28.0 Monocytes % 11.4 Eosinophils % 2.7 Basophils % 0.5 Nucleated RBC % 0 Absolute Neutrophils 2.51 Absolute Lymphocytes 1.23 Absolute Monocytes 0.50 Absolute Eosinophils 0.12 Absolute Basophils 0.02 PT INR VBG Lactate Sodium 143 Potassium 3.6 Chloride 109 H Carbon Dioxide 27.2 Anion Gap 6.8 BUN 18 D Creatinine 1.4 H Estimated GFR/1.73 m2 48.16 Glucose 87 Calcium 8.5 Magnesium 2.1 Total Bilirubin 0.8 AST 21 ALT 17 Alkaline Phosphatase 86 Ammonia Troponin I Total Protein 6.4 Albumin 2.8 L TSH Free T4 Urine Color Urine Clarity Urine pH Ur Specific Heath Urine Protein Urine Ketones Urine Blood Urine Nitrite Urine Bilirubin Urine Urobilinogen Ur Leukocyte Esterase Urine RBC Urine WBC Ur Epithelial Cells Urine Crystals Urine Bacteria Urine Casts Urine Mucus Urine Other Ur Culture Indicated? Urine Glucose Urine Opiates Screen Urine Methadone Screen Ur Barbiturates Screen Ur Tricyclics Screen Ur Amphetamines Screen U Benzodiazepines Scrn Urine Cocaine Screen Ur THC Screen Ethyl Alcohol COVID-19 Source Change Bladder Catheter Text: The patient was seen eating at the bedside. His indwelling suprapubic catheter balloon was deflated and the catheter was removed. The suprapubic site was prepped and a new 16 Amharic catheter was passed through the suprapubic tract into the bladder. The catheter balloon was inflated with 10 cc of sterile water. Clear urine was obtained. The catheter was hooked to gravity drainage.
--- NOTE | 2021-04-17 16:42 | W.NEUROCONSU ---
Date of service: 04/17/21 Time of Service: 16:42 Assessment and Plan Assessment and plan (1) Air embolism: Status: Acute Assessment and plan: This should resolve on it's own. Monitor for headaches which would improve when supine or changes in neurological status. Can consider updated CTH imaging in 2-3 months to ensure resolution of air, but likely not necessary if clinically stable. He will follow-up in neurology as needed. History of Present Illness History of Present Illness Chief Complaint: intracranial air Narrative: Handedness: right. HPI: Mr. Ross is an 86 year-old man with HTN, afib, COPD, CKD, anxiety, hypothyroidism, chronic pain, suprapubic catheter and GERD. He was brought by EMS yesterday after being found with altered mental status/lethargy by home health. Work-up included a CTH which showed numerous small air bubbles in the soft tissues of the face and in the region of the cavernous sinuses, sella, and peripherally in the left middle fossa. I was able to review these images personally. There was no evidence of skull fracture. A CT C/A/P and was performed which showed air in the right arm veins which was though to be cause of air in head and due to IV placement. He has no headache. His mental status appears improved to baseline. He is being treated for a UTI. Consults Requesting physician: Cheryl Jim Review of Systems All systems reviewed & are unremarkable except as noted in HPI and below PFSH Medical History All medications reviewed Anemia associated with acute blood loss Anxiety Atrial fibrillation Bilateral hydrocele BPH (benign prostatic hyperplasia) Chronic dyspnea Chronic GERD Chronic kidney disease (CKD) Chronic lower back pain Chronic obstructive lung disease Chronic pain Diverticulosis of large intestine without diverticulitis Dysphagia Essential hypertension GERD (gastroesophageal reflux disease) Glaucoma Gross hematuria Health care proxy on file niece Taisha Montes, TOREY Insomnia Lives alone with help available neighbor lives next door Polyp of colon Spinal stenosis of lumbar region Suprapubic catheter Tachycardia-bradycardia Unintentional weight loss Walker as ambulation aid Surgical History Colonoscopy - MAC Pacemaker S/P TURP Family History Niece No problems noted. Social History Smoking/Tobacco Use Status: Former Tobacco Use Smoking risk assessment performed?: Yes Alcohol Intake: former Drug use: Never Substance use type: does not use Caregiver/Support person: No Household members: none Housing: other Details: lives in basement of old farmhouse; afraid of going upstairs Number of Children: 0 Communication Needs: Hard of Hearing and Corrective Lenses Education Level: vocational Do you need help understanding health information?: Always current occupation: retired Pets and animals: No Current gender identity: male What is your relationship status?: never How often do you talk on the phone with friends or family?: three or more times per week How often do you get together with friends or relatives?: twice per week Panel score (0-1 are the most socially isolated patients): 1 What type of physical activity do you participate in: none and sedentary lifestyle Special debi needs: No Agree to transfusion: Yes Carbon monox detector in home: No Firearms in home: Yes Do you feel safe at home: Yes Do you feel safe in your relationship?: Yes Additional Social history: Brenden lives in the basement of an old delapidated farmhouse. He heats with wood but leaves his door open so he can breathe. Friend Casa lives about 100-200 yards away. He checks on Brenden regularly--chops, stacks and loads his wood for him. Brenden's closest living relative is his grandniece, Taisha Montes, who is a Home Health nurse. He is her grandmother's baby brother. No one else is alive in his generation. He never . No children. Has always lived on his own terms. Not going anywhere. Visit Medication and Allergies Active Medications Generic Name Dose Route Start Last Admin Trade Name Freq PRN Reason Stop Dose Admin Acetaminophen 650 mg 04/17/21 01:13 Acetaminophen 325 Mg Tab PO Q6H PRN PRN Acidophilus/Pectin 1 cap 04/17/21 08:30 04/17/21 15:38 Lactobacillus Acidophilus Cap PO 1 cap TID BECKA Administration Albuterol Sulfate 2.5 mg 04/16/21 23:46 Albuterol 2.5 Mg/3 Ml Inh Soln Vial UPD Q4H PRN PRN Bisacodyl 10 mg 04/16/21 23:45 Bisacodyl 10 Mg Supp MO DAILY PRN PRN Budesonide 0.5 mg 04/17/21 08:30 04/17/21 07:47 Budesonide 0.5 Mg/2 Ml Upd Vial UPD 0.5 mg BID BECKA Administration Cholecalciferol 1,000 units 04/17/21 08:30 04/17/21 07:53 Cholecalciferol (Vitamin D3) 1,000 Unit Tab PO 1,000 units DAILY BECKA Administration Clonazepam 0.5 mg 04/16/21 23:45 04/17/21 02:45 Clonazepam 0.5 Mg Tab PO 0.5 mg BID PRN PRN Administration Anxiety Dabigatran 75 mg 04/17/21 08:30 04/17/21 07:53 Dabigatran 75 Mg Capsule PO 75 mg BID BECKA Administration Dimethicone/Zinc Oxide 0 gm 04/16/21 23:40 [place] Protect Cream 142 Gm Tube TP PRN PRN Docusate Sodium 100 mg 04/17/21 08:30 04/17/21 07:53 Docusate Sodium 100 Mg Cap PO 100 mg BID BECKA Administration Dorzolamide HCl 0 ml 04/17/21 08:30 04/17/21 11:10 Dorzolamide 2% 10 Ml Btl OP 1 drp QAM BECKA Administration Fentanyl 12 mcg 04/17/21 08:30 04/17/21 07:53 Fentanyl 12 Mcg Patch TD 12 mcg Q72H BECKA Administration Sodium Chloride 1,000 mls @ 125 mls/hr 04/16/21 17:30 04/17/21 11:15 Saline 1000ml Bag IV 125 mls/hr INFUSION BECKA Administration Sodium Chloride 500 mls @ 0 mls/hr 04/16/21 22:47 Saline 500ml Bag IV PRN PRN As Directed Meropenem 1 gm/ Sodium 100 mls @ 200 mls/hr 04/17/21 08:00 04/17/21 13:56 Chloride IVPB Infused Q12H BECKA Infusion Protocol IV Miscellaneous Supplies 1 each 04/16/21 23:00 Iv Access IV DIRECTED EBCKA Lactulose 20 gm 04/17/21 08:30 04/17/21 08:05 Lactulose 20 Gm/30 Ml Cup PO 20 gm BID BECKA Administration Latanoprost 0 ml 04/17/21 22:00 Latanoprost 0.005% 2.5 Ml Btl OP HS BECKA Levothyroxine Sodium 75 mcg 04/17/21 06:00 04/17/21 05:25 Levothyroxine 75 Mcg Tab PO 75 mcg DAILY@0600 BECKA Administration Magnesium Hydroxide 30 ml 04/16/21 23:50 Milk Of Magnesia 30 Ml Cup PO DAILY PRN PRN Metoprolol Tartrate 75 mg 04/17/21 08:30 04/17/21 07:52 Metoprolol 50 Mg Tab PO 75 mg BID BECKA Administration Mirabegron 50 mg 04/17/21 08:30 04/17/21 11:11 Mirabegron 50 Mg Tabcr PO 50 mg DAILY BECKA Administration Mirtazapine 15 mg 04/17/21 22:00 Mirtazapine 15 Mg Tab PO HS BECKA Oxycodone HCl 5 mg 04/16/21 23:45 04/17/21 16:34 Oxycodone 5 Mg Tab PO 5 mg TID PRN PRN Administration Pantoprazole Sodium 40 mg 04/17/21 07:30 04/17/21 07:53 Pantoprazole 40 Mg Tabcr PO 40 mg DAILY@0730 BECKA Administration Polyethylene Glycol 17 gm 04/17/21 08:30 04/17/21 07:53 Polyethylene Glycol 3350 17 Gm Packet PO 17 gm BID BECKA Administration Potassium Chloride 20 meq 04/18/21 08:30 Potassium Chloride 20 Meq Tabcr PO DAILY BECKA Ropinirole HCl 2 mg 04/17/21 20:00 Ropinirole 0.5 Mg Tab PO QPM BECKA Sennosides 1 tab 04/17/21 22:00 Senna Tab PO HS BECKA Sodium Chloride 0 ml 04/16/21 22:47 Normal Saline Flush 10 Ml Syr IVP PRN PRN Sucralfate 1 gm 04/17/21 07:30 04/17/21 16:34 Sucralfate 1 Gm Tab PO 1 gm AC & HS BECKA Administration Tiotropium [place] 0 puff 04/17/21 08:30 04/17/21 08:16 Tiotropium [place]-Respimat 10 Puff Inh IH 2 inh DAILY BECKA Administration Ursodiol 300 mg 04/17/21 12:12 04/17/21 12:58 Ursodiol 300 Mg Cap PO 300 mg BID BECKA Administration Allergies banana Allergy (Mild, Unverified 04/16/21 22:47) Skin Rash formoterol fumarate [From Dulera] Adverse Reaction (Intermediate, Unverified 04/16/21 22:47) Ineffective per Pt mometasone furoate [From Dulera] Adverse Reaction (Intermediate, Unverified 04/16/21 22:47) Ineffective per Pt hydrocodone Adverse Reaction (Unknown, Unverified 04/16/21 22:47) Dizziness/Lightheade Exam Narrative Exam Narrative: Physical Exam: Gen: Patient of apparent stated age, appears chronically ill Head and face: no facial or cranial abnormalities Neck: Supple, no meningismus, no occipital tenderness CV: RRR, no murmur Resp: CTA B/L Abd: soft, +pain, +BS Ext: No edema. No clubbing or cyanosis. No bony deformity. Neuro Exam: Language: fluency, naming, repetition, and comprehension intact; Mental Status: AAOxself only; fund of knowledge and current events not intact; Speech: no dysarthria Cranial nerves: Funduscopy: not performed CN II: visual antonio intact CN III, IV, : extraocular movements intact, no nystagmus, pupils symmetric and reactive to light CN V: face sensation intact to LT and PP CN VII: no facial asymmetry noted CN VIII: hearing intact bilaterally CN IX, X: palate rises symmetrically CN XI: trapezius/SCM 5/5 bilaterally CN XII: protrudes tongue symmetrically Sensory: unclear. Tested PP throughout and couldn't tell me anything about it. Motor: bulk and tone intact. Fine motor movements reduced bilaterally. No pronator drift. Strength 4/5 throughout. Reflexes: hyporeflexic throughout with absent LE reflexes; toes neutral bilaterally; Coordination: FTN and HTS intact bilaterally Gait: not tested Results Last Vital Signs Temp 97.5 F L 04/17/21 15:35 Pulse 74 04/17/21 15:35 Resp 18 04/17/21 15:35 BP 144/83 H 04/17/21 15:35 Pulse Ox 94 04/17/21 15:35 Labs Result diagrams: 04/17/21 07:13 04/17/21 07:13 Labs: Laboratory Results - last 24 hr 04/16/21 04/16/21 04/16/21 17:35 17:35 17:35 WBC RBC Hgb Hct MCV MCH MCHC RDW Plt Count MPV Immature Gran % Neutrophils % Lymphocytes % Monocytes % Eosinophils % Basophils % Nucleated RBC % Absolute Neutrophils Absolute Lymphocytes Absolute Monocytes Absolute Eosinophils Absolute Basophils PT INR VBG Lactate 0.9 Sodium 144 Potassium 4.0 Chloride 107 Carbon Dioxide 32.5 H Anion Gap 4.5 BUN 24 H Creatinine 1.5 H Estimated GFR/1.73 m2 44.48 Glucose 100 Calcium 9.1 Magnesium 2.4 Total Bilirubin 0.8 AST 22 ALT 16 Alkaline Phosphatase 102 Ammonia 19 Troponin I < 0.05 Total Protein 6.9 Albumin 3.0 L TSH 4.36 H Free T4 1.42 Urine Color Urine Clarity Urine pH Ur Specific [place] Urine Protein Urine Ketones Urine Blood Urine Nitrite Urine Bilirubin Urine Urobilinogen Ur Leukocyte Esterase Urine RBC Urine WBC Ur Epithelial Cells Urine Crystals Urine Bacteria Urine Casts Urine Mucus Urine Other Ur Culture Indicated? Urine Glucose Urine Opiates Screen Urine Methadone Screen Ur Barbiturates Screen Ur Tricyclics Screen Ur Amphetamines Screen U Benzodiazepines Scrn Urine Cocaine Screen Ur THC Screen Ethyl Alcohol < 3.0 COVID-19 Source 04/16/21 04/16/21 04/16/21 17:35 17:35 19:33 WBC 4.73 RBC 4.34 L Hgb 13.0 L Hct 41.8 MCV 96.3 H MCH 30.0 MCHC 31.1 L RDW 16.3 H Plt Count 202 MPV 9.9 Immature Gran % 0.6 Neutrophils % 60.3 Lymphocytes % 24.1 Monocytes % 11.4 Eosinophils % 3.2 Basophils % 0.4 Nucleated RBC % 0 Absolute Neutrophils 2.85 Absolute Lymphocytes 1.14 L Absolute Monocytes 0.54 Absolute Eosinophils 0.15 Absolute Basophils 0.02 PT 11.9 H INR 1.2 H VBG Lactate Sodium Potassium Chloride Carbon Dioxide Anion Gap BUN Creatinine Estimated GFR/1.73 m2 Glucose Calcium Magnesium Total Bilirubin AST ALT Alkaline Phosphatase Ammonia Troponin I Total Protein Albumin TSH Free T4 Urine Color Urine Clarity Urine pH Ur Specific [place] Urine Protein Urine Ketones Urine Blood Urine Nitrite Urine Bilirubin Urine Urobilinogen Ur Leukocyte Esterase Urine RBC Urine WBC Ur Epithelial Cells Urine Crystals Urine Bacteria Urine Casts Urine Mucus Urine Other Ur Culture Indicated? Urine Glucose Urine Opiates Screen Negative Urine Methadone Screen Negative Ur Barbiturates Screen Negative Ur Tricyclics Screen Negative Ur Amphetamines Screen Negative U Benzodiazepines Scrn Negative Urine Cocaine Screen Negative Ur THC Screen Negative Ethyl Alcohol COVID-19 Source 04/16/21 04/16/21 04/16/21 19:33 22:38 23:16 WBC RBC Hgb Hct MCV MCH MCHC RDW Plt Count MPV Immature Gran % Neutrophils % Lymphocytes % Monocytes % Eosinophils % Basophils % Nucleated RBC % Absolute Neutrophils Absolute Lymphocytes Absolute Monocytes Absolute Eosinophils Absolute Basophils PT INR VBG Lactate Sodium Potassium Chloride Carbon Dioxide Anion Gap BUN Creatinine Estimated GFR/1.73 m2 Glucose Calcium Magnesium Total Bilirubin AST ALT Alkaline Phosphatase Ammonia Troponin I < 0.05 Total Protein Albumin TSH Free T4 Urine Color Yellow Urine Clarity Clear Urine pH 6.0 Ur Specific [place] 1.020 Urine Protein Negative Urine Ketones Negative Urine Blood Negative Urine Nitrite Positive H Urine Bilirubin Negative Urine Urobilinogen 0.2 Ur Leukocyte Esterase Trace H Urine RBC Negative Urine WBC 5-10 Ur Epithelial Cells Negative Urine Crystals Negative Urine Bacteria Many Urine Casts Negative Urine Mucus Negative Urine Other Negative Ur Culture Indicated? Yes Urine Glucose Negative Urine Opiates Screen Urine Methadone Screen Ur Barbiturates Screen Ur Tricyclics Screen Ur Amphetamines Screen U Benzodiazepines Scrn Urine Cocaine Screen Ur THC Screen Ethyl Alcohol COVID-19 Source Nasal/Nares 04/17/21 04/17/21 07:13 07:13 WBC 4.40 RBC 4.15 L Hgb 12.3 L Hct 38.6 L MCV 93.0 D MCH 29.6 MCHC 31.9 L RDW 16.8 H Plt Count 178 MPV 10.4 Immature Gran % 0.5 Neutrophils % 56.9 Lymphocytes % 28.0 Monocytes % 11.4 Eosinophils % 2.7 Basophils % 0.5 Nucleated RBC % 0 Absolute Neutrophils 2.51 Absolute Lymphocytes 1.23 Absolute Monocytes 0.50 Absolute Eosinophils 0.12 Absolute Basophils 0.02 PT INR VBG Lactate Sodium 143 Potassium 3.6 Chloride 109 H Carbon Dioxide 27.2 Anion Gap 6.8 BUN 18 D Creatinine 1.4 H Estimated GFR/1.73 m2 48.16 Glucose 87 Calcium 8.5 Magnesium 2.1 Total Bilirubin 0.8 AST 21 ALT 17 Alkaline Phosphatase 86 Ammonia Troponin I Total Protein 6.4 Albumin 2.8 L TSH Free T4 Urine Color Urine Clarity Urine pH Ur Specific [place] Urine Protein Urine Ketones Urine Blood Urine Nitrite Urine Bilirubin Urine Urobilinogen Ur Leukocyte Esterase Urine RBC Urine WBC Ur Epithelial Cells Urine Crystals Urine Bacteria Urine Casts Urine Mucus Urine Other Ur Culture Indicated? Urine Glucose Urine Opiates Screen Urine Methadone Screen Ur Barbiturates Screen Ur Tricyclics Screen Ur Amphetamines Screen U Benzodiazepines Scrn Urine Cocaine Screen Ur THC Screen Ethyl Alcohol COVID-19 Source
--- NOTE | 2021-04-17 18:24 | PGE_ITS ---
Date of Service Date of service: 04/17/21 Time of Service: 18:24 Subjective Subjective Interval history since last seen: Suprapubic catheter exchanged today. Seen by neurology: no additional interventions recommended for the air emboli. Reports feeling shortness of breath. In his PMHx I see that he has this chronically. He is saturating 94-95% on room air and is completely clear on auscultation. D/c IVF. Continue meropenem while awaiting urine C&S (GNR >100,000 CFU). Will consult PT. Palliative care consult. Objective Last Vital Signs Temp 36.4 C L 04/17/21 15:35 Pulse 67 04/17/21 18:05 Resp 18 04/17/21 15:35 BP 134/74 04/17/21 18:05 Pulse Ox 97 04/17/21 18:05 Laboratory Results - last 24 hr 04/16/21 04/16/21 04/16/21 17:35 19:33 19:33 WBC RBC Hgb Hct MCV MCH MCHC RDW Plt Count MPV Immature Gran % Neutrophils % Lymphocytes % Monocytes % Eosinophils % Basophils % Nucleated RBC % Absolute Neutrophils Absolute Lymphocytes Absolute Monocytes Absolute Eosinophils Absolute Basophils Sodium Potassium Chloride Carbon Dioxide Anion Gap BUN Creatinine Estimated GFR/1.73 m2 Glucose Calcium Magnesium Total Bilirubin AST ALT Alkaline Phosphatase Troponin I Total Protein Albumin Free T4 1.42 Urine Color Yellow Urine Clarity Clear Urine pH 6.0 Ur Specific [place] 1.020 Urine Protein Negative Urine Ketones Negative Urine Blood Negative Urine Nitrite Positive H Urine Bilirubin Negative Urine Urobilinogen 0.2 Ur Leukocyte Esterase Trace H Urine RBC Negative Urine WBC 5-10 Ur Epithelial Cells Negative Urine Crystals Negative Urine Bacteria Many Urine Casts Negative Urine Mucus Negative Urine Other Negative Ur Culture Indicated? Yes Urine Glucose Negative Urine Opiates Screen Negative Urine Methadone Screen Negative Ur Barbiturates Screen Negative Ur Tricyclics Screen Negative Ur Amphetamines Screen Negative U Benzodiazepines Scrn Negative Urine Cocaine Screen Negative Ur THC Screen Negative Ethyl Alcohol < 3.0 COVID-19 Source 04/16/21 04/16/21 04/17/21 22:38 23:16 07:13 WBC RBC Hgb Hct MCV MCH MCHC RDW Plt Count MPV Immature Gran % Neutrophils % Lymphocytes % Monocytes % Eosinophils % Basophils % Nucleated RBC % Absolute Neutrophils Absolute Lymphocytes Absolute Monocytes Absolute Eosinophils Absolute Basophils Sodium 143 Potassium 3.6 Chloride 109 H Carbon Dioxide 27.2 Anion Gap 6.8 BUN 18 D Creatinine 1.4 H Estimated GFR/1.73 m2 48.16 Glucose 87 Calcium 8.5 Magnesium 2.1 Total Bilirubin 0.8 AST 21 ALT 17 Alkaline Phosphatase 86 Troponin I < 0.05 Total Protein 6.4 Albumin 2.8 L Free T4 Urine Color Urine Clarity Urine pH Ur Specific [place] Urine Protein Urine Ketones Urine Blood Urine Nitrite Urine Bilirubin Urine Urobilinogen Ur Leukocyte Esterase Urine RBC Urine WBC Ur Epithelial Cells Urine Crystals Urine Bacteria Urine Casts Urine Mucus Urine Other Ur Culture Indicated? Urine Glucose Urine Opiates Screen Urine Methadone Screen Ur Barbiturates Screen Ur Tricyclics Screen Ur Amphetamines Screen U Benzodiazepines Scrn Urine Cocaine Screen Ur THC Screen Ethyl Alcohol COVID-19 Source Nasal/Nares 04/17/21 07:13 WBC 4.40 RBC 4.15 L Hgb 12.3 L Hct 38.6 L MCV 93.0 D MCH 29.6 MCHC 31.9 L RDW 16.8 H Plt Count 178 MPV 10.4 Immature Gran % 0.5 Neutrophils % 56.9 Lymphocytes % 28.0 Monocytes % 11.4 Eosinophils % 2.7 Basophils % 0.5 Nucleated RBC % 0 Absolute Neutrophils 2.51 Absolute Lymphocytes 1.23 Absolute Monocytes 0.50 Absolute Eosinophils 0.12 Absolute Basophils 0.02 Sodium Potassium Chloride Carbon Dioxide Anion Gap BUN Creatinine Estimated GFR/1.73 m2 Glucose Calcium Magnesium Total Bilirubin AST ALT Alkaline Phosphatase Troponin I Total Protein Albumin Free T4 Urine Color Urine Clarity Urine pH Ur Specific [place] Urine Protein Urine Ketones Urine Blood Urine Nitrite Urine Bilirubin Urine Urobilinogen Ur Leukocyte Esterase Urine RBC Urine WBC Ur Epithelial Cells Urine Crystals Urine Bacteria Urine Casts Urine Mucus Urine Other Ur Culture Indicated? Urine Glucose Urine Opiates Screen Urine Methadone Screen Ur Barbiturates Screen Ur Tricyclics Screen Ur Amphetamines Screen U Benzodiazepines Scrn Urine Cocaine Screen Ur THC Screen Ethyl Alcohol COVID-19 Source
[2021-04-17] MEDS: rOPINIRole 0.5 MG TAB 2 MG PO (19:54)
[2021-04-17] MEDS: Normal Saline Flush 10 ML SYR IVP (20:00)
[2021-04-17 20:36] LABS: COVID-19 PCR Negative (Negative)
[2021-04-17] MEDS: Latanoprost 0.005% 2.5 ML BTL OP (21:52)
[2021-04-17] MEDS: Senna TAB 1 TAB PO (21:53)
[2021-04-17] MEDS: Mirtazapine 15 MG TAB PO (21:53)
[2021-04-18] MEDS: Levothyroxine 75 MCG TAB PO (06:02)
[2021-04-18 07:00] LABS: Abs Immature Grans 0.02 10^3/uL (0.0-0.06); Absolute Basophil Count 0.02 10^3/uL (0.0-0.2); Absolute Eosinophil Count 0.13 10^3/uL (0.0-0.7); Absolute Lymphocyte Count 1.14 10^3/uL (1.2-3.4); Absolute Monocyte Count 0.49 10^3/uL (0.1-0.8); Absolute Neutrophil Count 3.02 10^3/uL (1.2-6.7); Basophils % 0.4; Eosinophils % 2.7; HCT 41.5 % (40.0-50.0); HGB 13.1 g/dL (13.5-17.5); Immature Grans % 0.4; Lymphocytes % 23.7; MCH 30.3 pg (27.0-33.0); MCHC 31.6 % (32.0-36.0); MCV 96.1 fL (80-95); MPV 10.1 fL (8.0-11.0); Monocytes % 10.2; Neutrophils % 62.6; Nucleated RBC 0 %; Platelet Count 180 10^3/uL (130-400); RBC 4.32 10^6/uL (4.36-5.78); RDW 16.5 % (11.8-14.1); RDW-SD 58.3 fL; WBC 4.82 10^3/uL (4.4-10.8)
[2021-04-18 07:09] LABS: Anion Gap 6.7 mmol/L (3-11); BUN 14 mg/dL (7-18); CO2 28.3 mmol/L (21.0-32.0); CREATININE 1.3 mg/dL (0.70-1.30); Calcium 8.8 mg/dL (8.5-10.1); Chloride 108 mmol/L (98-107); Estimated GFR 52.47 (mL/min/1.73m2); Glucose 84 mg/dL (74-106); Magnesium 2.1 mg/dL (1.8-2.4); Potassium 3.8 mmol/L (3.5-5.1); Sodium 143 mmol/L (136-145)
[2021-04-18] MEDS: MEROPENEM 1 GM in Normal Saline 100 ML IVPB ×2 (07:37→19:40)
[2021-04-18] MEDS: Polyethylene Glycol 3350 17 GM PACKET PO ×2 (07:37→19:42)
[2021-04-18] MEDS: Lactulose 20 GM/30 ML CUP PO ×2 (07:37→19:40)
[2021-04-18] MEDS: Lactobacillus Acidophilus CAP 1 CAP PO ×3 (07:38→19:44)
[2021-04-18] MEDS: Docusate Sodium 100 MG CAP PO ×2 (07:38→19:39)
[2021-04-18] MEDS: Metoprolol 50 MG TAB 75 MG PO ×2 (07:38→19:39)
[2021-04-18] MEDS: Mirabegron 50 MG TABCR PO (07:38)
[2021-04-18] MEDS: Cholecalciferol (Vitamin D3) 1,000 UNIT TAB 1000 UNITS PO (07:38)
[2021-04-18] MEDS: Ursodiol 300 MG CAP PO ×2 (07:38→19:39)
[2021-04-18] MEDS: Sucralfate 1 GM TAB PO ×4 (07:38→22:45)
[2021-04-18] MEDS: Pantoprazole 40 MG TABCR PO (07:38)
[2021-04-18] MEDS: Normal Saline Flush 10 ML SYR IVP ×2 (07:45→19:41)
[2021-04-18] MEDS: Potassium Chloride 20 MEQ TABCR PO (07:45)
[2021-04-18 08:53] VITALS: BP 145/84; PULSE 78; RESP 18; TEMP 36.4; O2SAT 99
[2021-04-18] MEDS: Tiotropium Bromide-Respimat 10 PUFF INH IH (10:19)
[2021-04-18] MEDS: Budesonide 0.5 MG/2 ML UPD VIAL UPD (10:19)
[2021-04-18] MEDS: Dorzolamide 2% 10 ML BTL OP (12:32)
[2021-04-18 15:30] VITALS: BP 144/80; PULSE 70; RESP 18; TEMP 36.7; O2SAT 99
--- NOTE | 2021-04-18 15:45 | PT.INIE ---
Date of service: 04/18/12 Time of Service: 13:35 PT Notes Visit Reasons: UTI,AMS Inpatient Physical Therapy Evaluation Date: 04/18/21 Referring Doctor: Cheryl Jim PT Orders: PT CONSULT: Evaluate and Treat Precautions: Standard Patient Profile/Admitting Diagnosis: Order received for the 86 year old male who is very familiar to this hospital and setting. He was found by EMS to be very lethargic and only responsive to painful stimuli. He responded and perked up a bit with administration of IV fluids but was found on lab testing to have severe UTI, possible COPD exacerbation, and air emboli. He has been admitted for antibiotic therapy, and other medical management. Orders to restore and improve functional mobility while in this setting. PMHX: PMHX: All medications reviewed Anemia associated with acute blood loss Anxiety Atrial fibrillation Bilateral hydrocele BPH (benign prostatic hyperplasia) Chronic GERD Chronic kidney disease (CKD) Chronic lower back pain Chronic obstructive lung disease Chronic pain Diverticulosis of large intestine without diverticulitis Dysphagia Essential hypertension GERD (gastroesophageal reflux disease) Glaucoma Insomnia Lives alone with help available neighbor lives next door Polyp of colon Spinal stenosis of lumbar region Suprapubic catheter Tachycardia-bradycardia Surgical History Colonoscopy - MAC Pacemaker S/P TURP Social History/Home Situation: Lives alone in a private home with 6 steps to enter and rails on B sides in [facility]. Has neighbors who he says are available to help as needed. Modified independent indoors and outdoors using his 4WW. Notes that HHS have been coming daily to assist with track laminating machine tender, and bathing. He notes he has meals on wheels however still gets himself light meals due to not liking the food. Equipment Owned/DME: 4WW, FWW Subjective: Patient states he is doing okay but not as good as he once was back in the day. Objective: Sitting in bed with recliner feet up. Kang in place and supplemental O2 delivered via nasal canula. He is asleep but easily roused with sternal rub Mental Status: Alert and oriented. Mild to moderate hearing difficulty but can identify where he is, where he lives, and who he is. Pain: minimal pain ROM: Right Upper Extremity: WFL Left Upper Extremity: WFL Right Lower Extremity: WFL Left Lower Extremity: WFL Strength: Right Upper Extremity: Globally 4+/5 Left Upper Extremity: Globally 4+/5 Right Lower Extremity: Globally 4+/5 Left Lower Extremity: Globally 4+/5 Bed Mobility/Transfers: Not assessed as patient in chair at time of evaluation Sit-stand: Under CGA into FWW Stand-sit: Under CGA into FWW Gait: In placed for 30 seconds with use of CGA and FWW Balance: Static Sitting: Good Dynamic Sitting: Good Static Standing: Good Dynamic Standing: Fair Special Tests: Mobility Limitations Standardized Measure [facility] AM-PAC 6 clicks Basic Mobility Inpatient Short Form: Raw Score: 16 CMS Score: 54.16% TherEX performed: Ankle pumps in sitting x 10, LAQ x 10, marching with hip flexion x 10 Informed Consent/Education: Patient instructed in purpose of PT consult and plan of care. ASSESSMENT: Patient is a 86 year old male with hx of good physical health Admitted with UTI, air emboli, COPD Patient presents with the following impairment level findings: Decreased strength, poor ambulation tolerance and distance, difficulty with transfers, impaired balance. Pt will benefit from skilled therapy intervention in order to remedy their functional limitations and restore patient to a more appropriate and stable functional level. Impairments are contributing to the following functional limitations: AMPAC score 54.16% Patient is assessed as a Moderate complexity Initial evaluation 59526 based on the following: History: see above Examination: see above Presentation: Evolving Decision Making: Moderate based on AMPAC of 54.16% Goals: Goals X1 week 1. Supine-Sit Independent 2. Sit-Supine Independent 3. Sit-Stand Independent 4. Stand-Sit Independent 5. Bed-Chair Independent 6. Gait With 2WW and Supervision up to 100 feet 7: Stairs 3 steps with supervision 8: Independent in Home program Plan of Care/Treatment Plan: 1-2x/day, 7 days/week x 1 week. Plan of care has been reviewed with the [employer] providing the service under Physical Therapy direction. Initiate Physical Therapy intervention for strengthening, bed mobility, transfers, gait, stairs, balance training, use of assistive device. DISCHARGE RECOMMENDATIONS: Unless his functional goals have been met at time of discharge, recommend possible SNF or sub acute stay. TREATMENT CODE/TIME: Moderate complexity Initial evaluation 57011 Time of Treatment 13:35 20 minutes of direct patient care Kwesi Garcia DPT
[2021-04-18] MEDS: Milk of Magnesia 30 ML CUP PO (17:38)
--- NOTE | 2021-04-18 18:26 | CMPROGNOTE_ITS ---
Care Management Progress Note S/O: Brenden was sitting up in his chair when CM met with him. He reported he was doing well and people like me for some reason around here. He used good humor as is his baseline and reported all his firewood has been stacked for the winter with the help of his neighbor. He reported no concerns at this time. CM continues to follow. A: 86 year old male admitted to [facility] 04[facility] for UTI, AMS P: Dino would like to return home when ready per MD. He often has SNF stays when needed, undetermined if this will be recommended for discharge. If returning home he will resume [employer] services and VNA support. CM continues to follow.
--- NOTE | 2021-04-18 18:39 | W.PM.PROGNOT ---
Date of Service Date of service: 04/18/21 Time of Service: 18:39 Assessment and Plan Assessment and plan (1) UTI (urinary tract infection): Status: Acute Assessment and plan: Due to GNR, present on admission, in setting of an infected suprapubic catheter, exchanged yesterday. H/o ESBL E. COli. Improving on meropenem. Continue empiric meropenem while awaiting speciation and sensitivities. While he has a h/o nephrolithiasis, CT on this admission ruled it out. US from 09/2020 with mass vs blood clot in bladder - will need follow up as outpatient. Qualifiers: Urinary tract infection type: acute cystitis Hematuria presence: with hematuria Qualified Code(s): N30.01 - Acute cystitis with hematuria (2) Toxic metabolic encephalopathy: Status: Resolved Assessment and plan: Patient's mental status appears to be clearing up. (3) Suprapubic catheter: Status: Chronic Assessment and plan: Exchanged by urology - as above (4) COPD (chronic obstructive pulmonary disease): Status: Chronic Assessment and plan: Not in acute exacerbation. States he does not normally use O2 - will d/c and see if he desaturates. Resume home meds (d/c nebulized equivalents). Qualifiers: COPD type: unspecified COPD Qualified Code(s): J44.9 - Chronic obstructive pulmonary disease, unspecified (5) Atrial fibrillation: Status: Chronic Assessment and plan: Continue metoprolol, pradaxa. Qualifiers: Atrial fibrillation type: paroxysmal Qualified Code(s): I48.0 - Paroxysmal atrial fibrillation (6) Anxiety disorder: Status: Chronic Assessment and plan: Continue home clonazepam 0.5mg BID (prn here, scheduled at home). (7) Air embolism: Status: Acute Assessment and plan: Evaluated by neurology - no additional interventions. Mental status at baseline. (8) DVT prophylaxis: Status: Acute Assessment and plan: On therapeutic pradaxa (9) Discharge planning issues: Status: Acute Assessment and plan: DNR/DNI Has caretakers at home and will probably be discharged home with resumption of HH services. Subjective Subjective Interval history since last seen: Mr Ross is doing better. He requested some milk, bread, and butter for breakfast. He knows where he is, but cannot tell me the date. He is on 2L of O2 - states he does not normally wear O2. O2 sats 99% on 2L. Denies dizziness, chest pain, shortness of breath, nausea. States he is feeling better and better. Exam Narrative Exam Narrative: General: Pleasant elderly male, A&Ox2, Resting comfortably in a chair, wakes up easily HEENT: EOMI, MMM Heart: RRR, no m/r/g Lungs: CTAB Abdomen: soft, nontender, nondistended Extremities: no edema BLE's Objective Last Vital Signs Temp 36.7 C 04/18/21 15:30 Pulse 70 04/18/21 15:30 Resp 18 04/18/21 15:30 BP 144/80 H 04/18/21 15:30 Pulse Ox 99 04/18/21 15:30 Laboratory Results - last 24 hr 04/16/21 04/18/21 04/18/21 23:16 06:10 06:10 WBC 4.82 RBC 4.32 L Hgb 13.1 L Hct 41.5 MCV 96.1 H D MCH 30.3 MCHC 31.6 L RDW 16.5 H Plt Count 180 MPV 10.1 Immature Gran % 0.4 Neutrophils % 62.6 Lymphocytes % 23.7 Monocytes % 10.2 Eosinophils % 2.7 Basophils % 0.4 Nucleated RBC % 0 Absolute Neutrophils 3.02 Absolute Lymphocytes 1.14 L Absolute Monocytes 0.49 Absolute Eosinophils 0.13 Absolute Basophils 0.02 Sodium 143 Potassium 3.8 Chloride 108 H Carbon Dioxide 28.3 Anion Gap 6.7 BUN 14 Creatinine 1.3 Estimated GFR/1.73 m2 52.47 Glucose 84 Calcium 8.8 Magnesium 2.1 SARS-CoV-2 (PCR) Negative
[2021-04-18 18:52] VITALS: O2SAT 94
--- NOTE | 2021-04-18 19:13 | NUR.NOTE ---
Nursing Note: Patient on room air walked form chair to bed and his saturations 91-92%
[2021-04-18] MEDS: rOPINIRole 0.5 MG TAB 2 MG PO (19:38)
[2021-04-18] MEDS: Normal Saline 500 ML 30 ML IV (19:41)
[2021-04-18 20:04] VITALS: BP 135/73; PULSE 83; RESP 17; TEMP 36.9; O2SAT 95
[2021-04-18] MEDS: Senna TAB 1 TAB PO (22:45)
[2021-04-18] MEDS: oxyCODONE 5 MG TAB PO (22:45)
[2021-04-18] MEDS: Fluticasone NASAL SPRAY 16 GM BTL 2 GM NS (22:45)
[2021-04-18] MEDS: clonazePAM 0.5 MG TAB PO (22:45)
[2021-04-18] MEDS: Mirtazapine 15 MG TAB PO (22:45)
[2021-04-18] MEDS: Latanoprost 0.005% 2.5 ML BTL OP (22:46)
[2021-04-18 23:05] VITALS: BP 129/67; PULSE 89; RESP 17; TEMP 36.9; O2SAT 95
[2021-04-19] MEDS: Levothyroxine 75 MCG TAB PO (06:44)
[2021-04-19 08:18] VITALS: BP 130/84; PULSE 67; RESP 17; TEMP 36.1; O2SAT 95
[2021-04-19] MEDS: Lactobacillus Acidophilus CAP 1 CAP PO ×3 (08:20→19:41)
[2021-04-19] MEDS: Mirabegron 50 MG TABCR PO (08:21)
[2021-04-19] MEDS: Ursodiol 300 MG CAP PO ×2 (08:21→19:41)
[2021-04-19] MEDS: Docusate Sodium 100 MG CAP PO ×2 (08:21→19:42)
[2021-04-19] MEDS: Metoprolol 50 MG TAB 75 MG PO ×2 (08:21→19:41)
[2021-04-19] MEDS: Sucralfate 1 GM TAB PO ×4 (08:22→22:29)
[2021-04-19] MEDS: Pantoprazole 40 MG TABCR PO (08:22)
[2021-04-19] MEDS: Potassium Chloride 20 MEQ TABCR PO (08:22)
[2021-04-19] MEDS: Cholecalciferol (Vitamin D3) 1,000 UNIT TAB 1000 UNITS PO (08:22)
[2021-04-19] MEDS: Dorzolamide 2% 10 ML BTL OP (08:23)
[2021-04-19] MEDS: Fluticasone NASAL SPRAY 16 GM BTL 2 GM NS ×2 (08:24→19:43)
[2021-04-19] MEDS: MEROPENEM 1 GM in Normal Saline 100 ML IVPB ×2 (08:43→19:42)
--- NOTE | 2021-04-19 09:35 | NUR.NOTE ---
Nursing Note: At 0935 on 04/19/21, this RN attempted to return a call from Edward (on pt's HIPAA), but the phone call went to voicemail. This RN will attempt to return the call again later on this morning.
[2021-04-19] MEDS: Tiotropium Bromide-Respimat 10 PUFF INH IH (09:56)
--- NOTE | 2021-04-19 10:08 | NUR.NOTE ---
Nursing Note: At 1000 on 04/19/21, this RN returned a call from Edward (on pt.'s HIPAA). RN updated Edward regarding pt.'s mentation, VS, pain level, head to toe assessment, improvement of altered mental status and urinary tract infection, plan of care, discharge plan, etc. Edward presented with a few questions that were answered. RN will reassess as necessary.
[2021-04-19] MEDS: Normal Saline Flush 10 ML SYR IVP ×2 (10:25→19:43)
[2021-04-19] MEDS: clonazePAM 0.5 MG TAB PO (11:44)
[2021-04-19 11:45] VITALS: BP 139/47; PULSE 74; RESP 20; TEMP 35.9; O2SAT 94
--- NOTE | 2021-04-19 13:38 | PT.INTREAT ---
PT Notes Visit Reasons: UTI,AMS Inpatient Physical Therapy Treatment Note [facility] Date: 04/19/21 SUBJECTIVE: Pt states that he thinks he may go home tomorrow. He c/o SOB this am but willing to work with me. OBJECTIVE: [] BED MOBILITY/TRANSFERS Sit-stand: CGA Stand-sit: CGA GAIT Assistive Device: FWW Weight bearing: full Assist: SBA Distance: 40' O2 sat was 92% THEREX: brief LE strengthening. See flowsheet for details. ASSESSMENT: tolerated session well. No c/o SOB during ambulation or ex. His lunch came in during out session and he was more interested in eating, otherwise I feel like we could have done more. PLAN: will continue to progress his strength and functional mobility followng PT POC. TREATMENT CODE/TIME: 20 min beginning at 1205. [id number]
--- NOTE | 2021-04-19 14:23 | W.PM.PROGNOT ---
Date of Service Date of service: 04/19/21 Time of Service: 14:23 Assessment and Plan Assessment and plan (1) Chronic GERD: Status: Chronic Assessment and plan: Cont pantoprazole and carafate (2) Chronic lower back pain: Status: Acute Assessment and plan: Cont fentanyl patch and prn oxycodone. (3) Suprapubic catheter: Status: Chronic Assessment and plan: Changed out by urology service. (4) Hypothyroidism: Status: Chronic Assessment and plan: Cont replacement tx. 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 Continue treatment for 5 day course; Day 3 of 5. Qualifiers: Urinary tract infection type: acute cystitis Hematuria presence: with hematuria Qualified Code(s): N30.01 - Acute cystitis with hematuria (7) COPD (chronic obstructive pulmonary disease): Status: Chronic Assessment and plan: No exacerbation. On albuterol and flovent inhalers at home; will give in updraft form now d/t altered mental status. Qualifiers: COPD type: unspecified COPD Qualified Code(s): J44.9 - Chronic obstructive pulmonary disease, unspecified (8) Anxiety disorder: Status: Chronic Assessment and plan: Con clonazepam 0.5mg BID scheduled at home; prn currently. Calm and cooperative. (9) Hypertension: Status: Chronic Assessment and plan: Cont metoprolol Monitor Qualifiers: Hypertension type: essential hypertension Qualified Code(s): I10 - Essential (primary) hypertension (10) History of kidney stones: Status: Chronic Assessment and plan: No clinical signs/symptoms of kidney stones. Renal US in September 2020 showed a lesion in the bladder; clot vs mass. CT abd/pelvis this admission w/o evidence nephrolithiasis. (11) Atrial fibrillation: Status: Chronic Assessment and plan: Cont Pradax for AC and metoprolol. Qualifiers: Atrial fibrillation type: paroxysmal Qualified Code(s): I48.0 - Paroxysmal atrial fibrillation (12) Air embolism: Status: Acute Assessment and plan: Appears to be d/t veinous catheter in the arm Watch for symptoms that this is causing morbidity. Subjective Subjective Patient reports: feels better, tolerating a regular diet and afebrile; denies nausea, vomiting and shortness of breath Interval history since last seen: He states he thought he might go home today. Exam Const General: no acute distress and other (verbally threatening but smiles as if joking. No physical threats) Nutritional Appearance: average body habitus Orientation: confused HENND Ears: hearing grossly normal bilaterally Eyes General: appearance normal, both eyes and all related structures Sclera: sclerae normal Resp Effort & Inspection: normal respiratory effort Auscultation: clear to auscultation bilaterally Cardio Rate: regular rate (V-paced) Heart Sounds: no murmurs GI Inspection: non-distended and other (suprapubic catheter in place.) Palpation: soft Skin General skin exam: no rashes or lesions noted Neuro General: moves all extremities Cranial Nerves: facial strength normal Speech: speech normal Extrem General: no pedal edema and no calf tenderness Objective Last Vital Signs Temp 35.9 C L 04/19/21 11:45 Pulse 74 04/19/21 11:45 Resp 20 04/19/21 11:45 BP 139/47 L 04/19/21 11:45 Pulse Ox 94 04/19/21 11:45
[2021-04-19 17:35] VITALS: BP 140/80; PULSE 81; RESP 18; TEMP 35.9; O2SAT 92
[2021-04-19] MEDS: oxyCODONE 5 MG TAB PO (17:38)
[2021-04-19] MEDS: rOPINIRole 0.5 MG TAB 2 MG PO (19:41)
[2021-04-19] MEDS: Lactulose 20 GM/30 ML CUP PO (19:42)
[2021-04-19] MEDS: Polyethylene Glycol 3350 17 GM PACKET PO (19:42)
[2021-04-19] MEDS: Mometasone 220 MCG 14 DOSE INHALER IH (19:44)
[2021-04-19] MEDS: Senna TAB 1 TAB PO (22:29)
[2021-04-19] MEDS: Latanoprost 0.005% 2.5 ML BTL OP (22:29)
[2021-04-19] MEDS: Mirtazapine 15 MG TAB PO (22:29)
[2021-04-19 22:36] VITALS: BP 140/80; RESP 16; TEMP 36.4; O2SAT 93
[2021-04-20] MEDS: oxyCODONE 5 MG TAB PO ×2 (02:33→06:00)
[2021-04-20] MEDS: Levothyroxine 75 MCG TAB PO (05:59)
--- NOTE | 2021-04-20 06:06 | NUR.NOTE ---
Nursing Note:Pt. uncomfortable and having a hard time sleeping at multiple times through the night. PRN pain medication was used with good effect. By the end of shift, he was stating that he was feeling a lot better and was able to get some periods of really good sleep.
[2021-04-20] MEDS: Tiotropium Bromide-Respimat 10 PUFF INH IH (08:08)
[2021-04-20] MEDS: Mometasone 220 MCG 14 DOSE INHALER IH ×2 (08:09→21:16)
[2021-04-20] MEDS: Sucralfate 1 GM TAB PO ×3 (09:18→21:10)
[2021-04-20] MEDS: fentaNYL 12 MCG PATCH TD (09:19)
[2021-04-20] MEDS: Pantoprazole 40 MG TABCR PO (09:19)
[2021-04-20] MEDS: Cholecalciferol (Vitamin D3) 1,000 UNIT TAB 1000 UNITS PO (09:19)
[2021-04-20] MEDS: Metoprolol 50 MG TAB 75 MG PO ×2 (09:19→21:11)
[2021-04-20] MEDS: Mirabegron 50 MG TABCR PO (09:19)
[2021-04-20] MEDS: Ursodiol 300 MG CAP PO ×2 (09:19→21:13)
[2021-04-20] MEDS: Potassium Chloride 20 MEQ TABCR PO (09:19)
[2021-04-20] MEDS: Lactobacillus Acidophilus CAP 1 CAP PO ×3 (09:19→21:13)
[2021-04-20] MEDS: Acetaminophen 325 MG TAB 650 MG PO (09:19)
[2021-04-20] MEDS: MEROPENEM 1 GM in Normal Saline 100 ML IVPB ×2 (09:24→21:07)
[2021-04-20] MEDS: Normal Saline 500 ML 100 ML IV (09:24)
[2021-04-20 10:15] LABS: Abs Immature Grans 0.02 10^3/uL (0.0-0.06); Absolute Basophil Count 0.01 10^3/uL (0.0-0.2); Absolute Eosinophil Count 0.12 10^3/uL (0.0-0.7); Absolute Lymphocyte Count 1.06 10^3/uL (1.2-3.4); Absolute Monocyte Count 0.57 10^3/uL (0.1-0.8); Absolute Neutrophil Count 2.93 10^3/uL (1.2-6.7); Basophils % 0.2; Eosinophils % 2.5; HCT 39.1 % (40.0-50.0); HGB 12.3 g/dL (13.5-17.5); Immature Grans % 0.4; Lymphocytes % 22.5; MCH 30.1 pg (27.0-33.0); MCHC 31.5 % (32.0-36.0); MCV 95.6 fL (80-95); MPV 10.5 fL (8.0-11.0); Monocytes % 12.1; Neutrophils % 62.3; Nucleated RBC 0 %; Platelet Count 161 10^3/uL (130-400); RBC 4.09 10^6/uL (4.36-5.78); RDW 16.6 % (11.8-14.1); RDW-SD 58.6 fL; WBC 4.71 10^3/uL (4.4-10.8)
[2021-04-20 10:31] LABS: Anion Gap 5.2 mmol/L (3-11); BUN 16 mg/dL (7-18); CO2 29.8 mmol/L (21.0-32.0); CREATININE 1.5 mg/dL (0.70-1.30); Calcium 8.8 mg/dL (8.5-10.1); Chloride 107 mmol/L (98-107); Estimated GFR 44.48 (mL/min/1.73m2); Glucose 91 mg/dL (74-106); Potassium 4.1 mmol/L (3.5-5.1); Sodium 142 mmol/L (136-145)
[2021-04-20] MEDS: Normal Saline Flush 10 ML SYR IVP ×2 (10:35→21:09)
[2021-04-20] MEDS: Fluticasone NASAL SPRAY 16 GM BTL 2 GM NS ×2 (10:35→21:14)
[2021-04-20] MEDS: Dorzolamide 2% 10 ML BTL OP (10:35)
[2021-04-20] MEDS: clonazePAM 0.5 MG TAB PO (12:10)
--- NOTE | 2021-04-20 12:19 | NUR.NOTE ---
Nursing Note: At 1218 on 04/20/21, this RN attempted to return a call from Edward (on pt.'s HIPAA), but the call went straight to voicemail. RN will attempt to return the call again later on.
--- NOTE | 2021-04-20 12:53 | PT.INTREAT ---
PT Notes Visit Reasons: UTI,AMS Inpatient Physical Therapy Treatment Note [facility] Date: 04/20/21 SUBJECTIVE: Pt reports that he is doing ok. He is willing to work with me. OBJECTIVE: [] BED MOBILITY/TRANSFERS Rolling L/R: SBA Supine-sit: SBA Sit-supine: SBA Sit-stand: SBA Stand-sit: SBA GAIT Assistive Device:FWW Weight bearing: full Assist: CGA Distance: approx 100' THEREX: global LE strength and stabilization ex. See flowsheet for details. ASSESSMENT: tolerated session well. He did get upset during ambulation outside his room stating he is unable to breathe with his mask on. He begins to panic. O2 sat was checked (92%) Once he entered room and mask off he was better. PLAN: continue to progress his strength and endurance following PT POC. TREATMENT CODE/TIME: 25 min beginning at 1035. [id number], [id number]
--- NOTE | 2021-04-20 13:13 | PGE_ITS ---
Date of Service Date of service: 04/20/21 Time of Service: 13:14 Assessment and Plan Assessment and plan (1) Chronic GERD: Status: Chronic Assessment and plan: Cont pantoprazole and carafate (2) Chronic lower back pain: Status: Acute Assessment and plan: Cont fentanyl patch and prn oxycodone. (3) Suprapubic catheter: Status: Chronic Assessment and plan: Changed out by urology service. (4) Hypothyroidism: Status: Chronic Assessment and plan: Cont replacement tx. 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 Continue treatment for 5 day course; Day 4 of 5. Qualifiers: Hematuria presence: with hematuria Urinary tract infection type: acute cystitis Qualified Code(s): N30.01 - Acute cystitis with hematuria (7) COPD (chronic obstructive pulmonary disease): Status: Chronic Assessment and plan: No exacerbation. On albuterol and flovent inhalers at home; will give in updraft form now d/t altered mental status. Qualifiers: COPD type: unspecified COPD Qualified Code(s): J44.9 - Chronic obstructive pulmonary disease, unspecified (8) Anxiety disorder: Status: Chronic Assessment and plan: Con clonazepam 0.5mg BID scheduled at home; prn currently. Calm and cooperative. (9) Hypertension: Status: Chronic Assessment and plan: Cont metoprolol Monitor Qualifiers: Hypertension type: essential hypertension Qualified Code(s): I10 - Essential (primary) hypertension (10) History of kidney stones: Status: Chronic Assessment and plan: No clinical signs/symptoms of kidney stones. Renal US in September 2020 showed a lesion in the bladder; clot vs mass. CT abd/pelvis this admission w/o evidence nephrolithiasis. (11) Atrial fibrillation: Status: Chronic Assessment and plan: Cont Pradax for AC and metoprolol. Qualifiers: Atrial fibrillation type: paroxysmal Qualified Code(s): I48.0 - Paroxysmal atrial fibrillation (12) Air embolism: Status: Acute Assessment and plan: Appears to be d/t veinous catheter in the arm Watch for symptoms that this is causing morbidity. Subjective Subjective Patient reports: feels better, tolerating a regular diet and afebrile; denies nausea, vomiting and shortness of breath Interval history since last seen: He states he thought he might go home today. Exam Const General: no acute distress and other (verbally threatening but smiles as if joking. No physical threats) Nutritional Appearance: average body habitus Orientation: confused [facility] Ears: hearing grossly normal bilaterally Eyes General: appearance normal, both eyes and all related structures Sclera: sclerae normal Resp Effort & Inspection: normal respiratory effort Auscultation: clear to auscultation bilaterally Cardio Rate: regular rate (V-paced) Heart Sounds: no murmurs GI Inspection: non-distended and other (suprapubic catheter in place.) Palpation: soft Skin General skin exam: no rashes or lesions noted Neuro General: moves all extremities Cranial Nerves: facial strength normal Speech: speech normal Extrem General: no pedal edema and no calf tenderness Objective Last Vital Signs Temp 36.4 C L 04/19/21 22:36 Pulse 81 04/19/21 17:35 Resp 16 04/19/21 22:36 BP 140/80 04/19/21 22:36 Pulse Ox 93 04/19/21 22:36 Laboratory Results - last 24 hr 04/20/21 04/20/21 10:00 10:00 WBC 4.71 RBC 4.09 L Hgb 12.3 L Hct 39.1 L MCV 95.6 H MCH 30.1 MCHC 31.5 L RDW 16.6 H Plt Count 161 MPV 10.5 Immature Gran % 0.4 Neutrophils % 62.3 Lymphocytes % 22.5 Monocytes % 12.1 Eosinophils % 2.5 Basophils % 0.2 Nucleated RBC % 0 Absolute Neutrophils 2.93 Absolute Lymphocytes 1.06 L Absolute Monocytes 0.57 Absolute Eosinophils 0.12 Absolute Basophils 0.01 Sodium 142 Potassium 4.1 Chloride 107 Carbon Dioxide 29.8 Anion Gap 5.2 BUN 16 Creatinine 1.5 H Estimated GFR/1.73 m2 44.48 Glucose 91 Calcium 8.8
--- NOTE | 2021-04-20 13:19 | NUR.NOTE ---
Nursing Note: At 1320 on 04/20/21, this RN returned a call from Edmayte (on pt.'s HIPAA). Edward was updated regarding pt.'s mentation, VS, pain level, head to toe assessment, plan of care, etc. Edward verbalized understanding and presented with a few questions that were answered. RN will reassess as necessary.
[2021-04-20 15:47] VITALS: BP 142/80; PULSE 82; RESP 18; TEMP 36.8; O2SAT 93
[2021-04-20] MEDS: Polyethylene Glycol 3350 17 GM PACKET PO (21:10)
[2021-04-20] MEDS: rOPINIRole 0.5 MG TAB 2 MG PO (21:10)
[2021-04-20] MEDS: Mirtazapine 15 MG TAB PO (21:14)
[2021-04-20] MEDS: Latanoprost 0.005% 2.5 ML BTL OP (21:14)
[2021-04-20] MEDS: Senna TAB 1 TAB PO (21:14)
[2021-04-20] MEDS: Docusate Sodium 100 MG CAP PO (21:14)
[2021-04-20 23:22] VITALS: BP 140/78; PULSE 80; RESP 18; TEMP 36.6; O2SAT 94
[2021-04-21] MEDS: Sucralfate 1 GM TAB PO (06:28)
[2021-04-21] MEDS: Pantoprazole 40 MG TABCR PO (06:28)
[2021-04-21] MEDS: Levothyroxine 75 MCG TAB PO (06:28)
[2021-04-21] MEDS: Polyethylene Glycol 3350 17 GM PACKET PO (07:57)
[2021-04-21] MEDS: Lactulose 20 GM/30 ML CUP PO (07:57)
[2021-04-21] MEDS: Potassium Chloride 20 MEQ TABCR PO (07:58)
[2021-04-21] MEDS: Metoprolol 50 MG TAB 75 MG PO (07:58)
[2021-04-21] MEDS: Lactobacillus Acidophilus CAP 1 CAP PO (07:58)
[2021-04-21] MEDS: Docusate Sodium 100 MG CAP PO (07:58)
[2021-04-21] MEDS: Mirabegron 50 MG TABCR PO (07:58)
[2021-04-21] MEDS: Cholecalciferol (Vitamin D3) 1,000 UNIT TAB 1000 UNITS PO (07:58)
[2021-04-21] MEDS: MEROPENEM 1 GM in Normal Saline 100 ML IVPB (07:59)
[2021-04-21] MEDS: Normal Saline 500 ML 30 ML IV (07:59)
[2021-04-21 08:13] VITALS: BP 135/92; PULSE 67; RESP 18; TEMP 36.8; O2SAT 98
[2021-04-21] MEDS: Fluticasone NASAL SPRAY 16 GM BTL 2 GM NS (08:30)
[2021-04-21] MEDS: Dorzolamide 2% 10 ML BTL OP (08:30)
[2021-04-21] MEDS: Ursodiol 300 MG CAP PO (08:35)
[2021-04-21] MEDS: Tiotropium Bromide-Respimat 10 PUFF INH IH (08:39)
[2021-04-21] MEDS: Mometasone 220 MCG 14 DOSE INHALER IH (08:39)
--- NOTE | 2021-04-21 09:11 | W.PM.DS.N ---
Date of service: 04/21/21 Time of Service: 09:30 DS: Diagnosis Discharge Diagnosis (1) Chronic GERD: Status: Chronic (2) Chronic lower back pain: Status: Acute (3) Suprapubic catheter: Status: Chronic (4) Hypothyroidism: Status: Chronic (5) Tachycardia-bradycardia syndrome: Status: Acute (6) UTI (urinary tract infection): Status: Acute (7) COPD (chronic obstructive pulmonary disease): Status: Chronic (8) Anxiety disorder: Status: Chronic (9) Hypertension: Status: Chronic (10) History of kidney stones: Status: Chronic (11) Atrial fibrillation: Status: Chronic (12) Air embolism: Status: Acute Discharge Plan Disposition Patient Disposition: HOME W/HOME HEALTH SERVICE Condition: Fair Discharge Details Reason For Visit: UTI,AMS Admit Date/Time: 04/16/21 22:47 Admit Provider: Cristobal Raya Attending Provider: Cristobal Raya Primary Care Provider: Lorena Chong [facility] Hospital Course Hospital Course: This is an 86 yo male with a PMH of diastolic CHF, atrial fibrillation, COPD, iPAD, CKD, GERD/Barrets esophagus, chronic pain, suprapubic catheter / UTIs, dysphagia, hypothyroidism, chronic constipation, BPH, anxiety disorder. He presented from home via EMS d/t lethargy throughout the day of presentation. EMS stated he was responsive only to painful stimuli with some improvement during transport with the administration of IV fluids. He complained of abdominal pain. Denied diarrhea, emesis. No F/C, cough. No falls, trauma. His BP was 120/59. HR was irregular in the 70's to low 100's / afib, O2 saturations in mid 90's on RA. Afebrile. WBC count normal. Hgb 13. INR 1.2. Na 144, K 4, BUN24, Creatinine 1.5. Mg 2.4. TSH 4.36. UA + nitrite, tr luek est, 5-10 WBCs, Many bacteria. Meropenem and Vancomycin administered in the ED. CT head obtained d/t his lethargy. Free air noted in the CSF, behind orbits. This led to CT of chest/ab/pelvis. Air noted in left upper extremity vein where IV was present. [facility] [place] watching for symptoms of leaking of clear fluid, salty/metallic taste or neurologic deficits. His urine grew ESBL E.Coli which he has experienced before. He completed a 5 day course of meropenem. His lethargy resolved. He worked well with PT; independent ambulation with use of his walker. Follow up with PCP in 1-2 weeks. Home Meds and New Rx's Prescriptions: Continued clonazepam 0.5 mg tablet 0.5 mg PO BID Qty: 60 RF: 0 fentanyl 12 mcg/hr patch 72 hour 1 patch transdermal Q72H MDD 12 mcg Qty: 10 RF: 0 potassium chloride [Klor-Con M20] 20 MEQ tablet,ER particles/crystals 20 meq PO DAILY AM Qty: 30 RF: 0 mirtazapine [Remeron] 15 MG tablet 15 mg PO HS RF: 0 levothyroxine 75 MCG tablet 75 mcg PO DAILY@0600 RF: 0 cholecalciferol (vitamin D3) 1,000 UNITS tablet 1 tab PO DAILY RF: 0 bisacodyl 10 MG suppository 10 mg CO DAILY PRNRF: 0 latanoprost 0.005 % Drops 1 drp ophthalmic (eye) HS RF: 0 magnesium hydroxide 400 mg/5 mL Suspension 30 ml PO DAILY PRNRF: 0 albuterol sulfate [Ventolin HFA] 90 mcg/actuation Hfa Aerosol Inhaler 2 puff INHALATION QID PRN PRNRF: 0 Spiriva with HandiHaler 18 mcg capsule, w/inhalation device 1 cap INHALATION DAILY RF: 0 pantoprazole 40 MG tablet,delayed release (DR/EC) 40 mg PO DAILY RF: 0 metoprolol tartrate 50 MG tablet 75 mg PO BID RF: 0 Flovent HFA 120 PUFF HFA aerosol inhaler 2 puff Inhalation BID RF: 0 ropinirole 1 mg tablet 2 mg PO QPM RF: 0 furosemide 20 MG tablet 40 mg PO DAILY RF: 0 sennosides [senna] 8.6 mg Tablet 8.6 mg PO HS RF: 0 docusate sodium [Colace] 100 mg Capsule 100 mg PO BID RF: 0 ursodiol 250 mg tablet 250 mg PO BID RF: 0 multivitamin [Tab-A-Raghu] Tablet 1 tab PO DAILY RF: 0 Myrbetriq 50 mg Tablet Extended Release 24 Hr 50 mg PO DAILY Qty: 30 RF: 1 nitroglycerin 0.4 mg tablet, sublingual 0.4 mg sublingual PRN PRNRF: 0 Pradaxa 75 mg capsule 75 mg PO BID RF: 0 acetaminophen [Tylenol] 325 MG tablet 650 mg PO Q6H PRN PRNRF: 0 sucralfate [Carafate] 1 gram tablet 1 gm PO QACHS Qty: 14 RF: 0 lidocaine 5 % adhesive patch,medicated 1 patch DAILY RF: 0 Acidophilus-Pectin 75 million cell -100 mg Capsule 1 cap PO TID RF: 0 fluticasone propionate 50 mcg/actuation spray,suspension 2 spray INTRANASAL BID RF: 0 dorzolamide 2 % drops 1 drp ophthalmic (eye) QAM RF: 0 oxycodone 5 mg tablet 5 mg PO TID PRNRF: 0 polyethylene glycol 3350 17 gram Powder In Packet 17 g PO BID Qty: 30 RF: 0 ondansetron 4 mg Tablet,Disintegrating 4 mg PO QID PRN PRNQty: 20 RF: 0 amoxicillin-pot clavulanate [Augmentin] 875-125 mg tablet 1 tab PO BID Qty: 14 RF: 0 lactulose 20 gram/30 mL solution 20 g PO BID Qty: 1200 RF: 0 Discharge Instructions Additional Instructions: Resume Home Health orders Stand Alone Forms: Nursing Discharge Form Activity:: Activity as Tolerated Equipment/Supplies:: No Equipment Needed Diet:: Resume his normal diet Discharge Orders Discharge Orders: Discharge Order (Routine); Ordered 04/21/21 Ordered By: Cristobal Raya DS: Summary Time Spent with Patient providing and/or coordinating discharge services: Greater than 30 minutes Status at Discharge Functional status at discharge: uses cane/walker Overall status at discharge: patient is back to baseline Mental Status: mental status grossly normal Speech and Movement: speech and movement normal Mood: congruent mood Affect: normal affect Exam Const General: no acute distress and other (verbally threatening but smiles as if joking. No physical threats) Nutritional Appearance: average body habitus Orientation: confused HENMT Ears: hearing grossly normal bilaterally Eyes General: appearance normal, both eyes and all related structures Sclera: sclerae normal Resp Effort & Inspection: normal respiratory effort Auscultation: clear to auscultation bilaterally Cardio Rate: regular rate (V-paced) Heart Sounds: no murmurs GI Inspection: non-distended and other (suprapubic catheter in place.) Palpation: soft Skin General skin exam: no rashes or lesions noted Neuro General: moves all extremities Cranial Nerves: facial strength normal Speech: speech normal Extrem General: no pedal edema and no calf tenderness Psych Mental Status: mental status grossly normal Speech and Movement: speech and movement normal Mood: congruent mood Affect: normal affect DS: Data Vitals/I&O Vitals and I&O: Vital Signs Temperature 36.8 C 04/21/21 08:13 Temperature Source Tympanic 04/21/21 08:13 Pulse 67 04/21/21 08:13 Pulse Rhythm Irregular 04/21/21 09:05 Pulse 86 04/17/21 00:10 Respiratory Rate 18 04/21/21 08:13 Respiratory Effort Non-Labored 04/21/21 09:05 Respiratory Depth Normal 04/21/21 09:05 Respiratory Pattern Normal 04/21/21 09:05 Blood Pressure 135/92 H 04/21/21 08:13 Blood Pressure Mean 83 04/17/21 00:01 Blood Pressure Position Sitting 04/16/21 17:21 Pulse Oximetry 98 04/21/21 08:13 Oxygen Delivery Method Nasal Cannula 04/21/21 08:13 Oxygen Flow Rate 4 04/21/21 08:13 Pain Level 3 04/21/21 08:13 Comment 04/20/21 16:06 Intake & Output 04/20/21 04/20/21 04/21/21 11:59 23:59 11:59 Intake Total 441.667 / 1021.667 580 / 1021.667 0 / 0 Output Total 1300 / 2650 1350 / 2650 1650 / 1650 Balance -858.333 / -1628.333 -770 / -1628.333 -1650 / -1650 Weight 82 kg Intake: IV 161.667 / 261.667 100 / 261.667 0 / 0 Oral 280 / 760 480 / 760 Output: Urine 1300 / 2650 1350 / 2650 1650 / 1650 Other: Urine Color Yellow Yellow Yellow Urine Appearance Clear Clear Clear Urine Odor None Stool Occult Blood Negative Stool Size Moderate Stool Characteristics Liquid Data Completed and Pending Labs on day of discharge: Labs from last 24 hours 04/20/21 04/20/21 10:00 10:00 WBC 4.71 RBC 4.09 L Hgb 12.3 L Hct 39.1 L MCV 95.6 H MCH 30.1 MCHC 31.5 L RDW 16.6 H Plt Count 161 MPV 10.5 Immature Gran % 0.4 Neutrophils % 62.3 Lymphocytes % 22.5 Monocytes % 12.1 Eosinophils % 2.5 Basophils % 0.2 Nucleated RBC % 0 Absolute Neutrophils 2.93 Absolute Lymphocytes 1.06 L Absolute Monocytes 0.57 Absolute Eosinophils 0.12 Absolute Basophils 0.01 Sodium 142 Potassium 4.1 Chloride 107 Carbon Dioxide 29.8 Anion Gap 5.2 BUN 16 Creatinine 1.5 H Estimated GFR/1.73 m2 44.48 Glucose 91 Calcium 8.8 Preliminary micro results at discharge 04/16/21 17:50 Blood Culture - Preliminary Blood NO GROWTH 96 HOURS 04/16/21 17:35 Blood Culture - Preliminary Blood NO GROWTH 96 HOURS FORMERLY [facility], [facility] Medical History All medications reviewed Anemia associated with acute blood loss Anxiety Atrial fibrillation Bilateral hydrocele BPH (benign prostatic hyperplasia) Chronic dyspnea Chronic GERD Chronic kidney disease (CKD) Chronic lower back pain Chronic obstructive lung disease Chronic pain Diverticulosis of large intestine without diverticulitis Dysphagia Essential hypertension GERD (gastroesophageal reflux disease) Glaucoma Gross hematuria Health care proxy on file niece Taisha Montes, RN Insomnia Lives alone with help available neighbor lives next door Polyp of colon Spinal stenosis of lumbar region Suprapubic catheter Tachycardia-bradycardia Unintentional weight loss Walker as ambulation aid Surgical History Colonoscopy - MAC Pacemaker S/P TURP Family History Niece No problems noted. Social History Smoking/Tobacco Use Status: Former Tobacco Use Smoking risk assessment performed?: Yes Alcohol Intake: former Drug use: Never Substance use type: does not use Caregiver/Support person: No Household members: none Housing: other Details: lives in basement of old farmhouse; afraid of going upstairs Number of Children: 0 Communication Needs: Hard of Hearing and Corrective Lenses Education Level: vocational Do you need help understanding health information?: Always current occupation: retired Pets and animals: No Current gender identity: male What is your relationship status?: never How often do you talk on the phone with friends or family?: three or more times per week How often do you get together with friends or relatives?: twice per week Panel score (0-1 are the most socially isolated patients): 1 What type of physical activity do you participate in: none and sedentary lifestyle Special debi needs: No Agree to transfusion: Yes Carbon monox detector in home: No Firearms in home: Yes Do you feel safe at home: Yes Do you feel safe in your relationship?: Yes Additional Social history: Brenden lives in the basement of an old delapidated farmhouse. He heats with wood but leaves his door open so he can breathe. Friend Casa lives about 100-200 yards away. He checks on Brenden regularly--chops, stacks and loads his wood for him. Brenden's closest living relative is his grandniece, Taisha Montes, who is a Home Health nurse. He is her grandmother's baby brother. No one else is alive in his generation. He never . No children. Has always lived on his own terms. Not going anywhere.
--- NOTE | 2021-04-21 09:52 | PDOC.CMDIS ---
- If Service Date Differs Date of service: 04/21/21 Time of Service: 09:52 LACE Index Scoring Tool - Questions: Length of Stay (in days): 4 - 6 Acuity (Admit via E.D.?): Yes Comorbidities: Congestive Heart Failure E.D. Visits: 15 - Answers: Total Score: 13 Risk of Readmission: High Risk Care Management Discharge Reason for Hospitalization: UTI, AMS Discharge Plan: Discharge home via RCT with resumption on [facility] SN/PT. Transportion arranged by CM. Follow up with PCP and discharge plan of care as prescribed. CM notified [facility]. Patient/Family Education Needs: Review discharge instructions and plan to follow up with community providers. ask me three. Services Needed at Discharge: Home Health Care Services (Resumption of [facility] Services)
--- NOTE | 2021-04-21 17:45 | PT.INTREAT ---
Date of service: 04/21/21 Time of Service: 10:05 PT Notes Visit Reasons: UTI,AMS Inpatient Physical Therapy Treatment Note [facility] Date: 04/21/2021 PRECAUTIONS: Activity as tolerated, fall SUBJECTIVE: Brenden states that he is happy that he will be discharged to home today. He is hesitant but agrees to participate in PT. OBJECTIVE: PAIN: No c/o pain BED MOBILITY/TRANSFERS Supine-sit: I with HOB flat Sit-supine: I with HOB flat Sit-stand: I Stand-sit: I Bed-chair: S Chair-bed: S GAIT Assistive Device: FWW Weight bearing: Full Assist: S Distance: 15' + 80' TOILETING: Patient toileted x2 with assist due to incontinence x1 ASSESSMENT: Patient demonstrates independence with bed mobility and transfers. He was able to demonstrate steady gait and pacing with gait training with FWW support. PLAN: Patient to discharge to home later today, per provider. Recommend follow up with PT upon discharge. TREATMENT CODE/TIME: 24 minutes; 29802 x2 (11:00)
--- NOTE | 2021-04-23 09:27 | INDS_ITS ---
Date of service: 04/23/21 PT Notes Visit Reasons: UTI,AMS Physical Therapy Inpatient Discharge Summary Date: 04/23/21 Dates of Service: 04/18/2021 through 04/21/2021 This is a clinical summary of care provided for the duration of dates listed above. No charge was made in the completion of this documentation. Referring Doctor: Cheryl Jim PT Orders: PT CONSULT: Evaluate and Treat Precautions: Standard Patient Profile/Admitting Diagnosis: Order received for the 86 year old male who is very familiar to this hospital and setting. He was found by EMS to be very lethargic and only responsive to painful stimuli. He responded and perked up a bit with administration of IV fluids but was found on lab testing to have severe UTI, possible COPD exacerbation, and air emboli. He has been admitted for antibiotic therapy, and other medical management. Orders to restore and improve functional mobility while in this setting. PMHX: PMHX: All medications reviewed Anemia associated with acute blood loss Anxiety Atrial fibrillation Bilateral hydrocele BPH (benign prostatic hyperplasia) Chronic GERD Chronic kidney disease (CKD) Chronic lower back pain Chronic obstructive lung disease Chronic pain Diverticulosis of large intestine without diverticulitis Dysphagia Essential hypertension GERD (gastroesophageal reflux disease) Glaucoma Insomnia Lives alone with help available neighbor lives next door Polyp of colon Spinal stenosis of lumbar region Suprapubic catheter Tachycardia-bradycardia Surgical History Colonoscopy - MAC Pacemaker S/P TURP Social History/Home Situation: Lives alone in a private home with 6 steps to enter and rails on B sides in [facility]. Has neighbors who he says are available to help as needed. Modified independent indoors and outdoors using his 4WW. Notes that HHS have been coming daily to assist with engineering drafter, and bathing. He notes he has meals on wheels however still gets himself light meals due to not liking the food. Equipment Owned/DME: 4WW, FWW Subjective: NT. See most recent [employer] notes. Objective: NT. See most recent [employer] SCI[employer] TE[employer]ER notes. Mental Status: NT. See most recent [employer] SCI[employer] TE[employer] notes. Pain: NT. See most recent [employer] SCI[employer] notes. ROM: Right Upper Extremity: WFL Left Upper Extremity: WFL Right Lower Extremity: WFL Left Lower Extremity: WFL Strength: Right Upper Extremity: Globally 4+/5 Left Upper Extremity: Globally 4+/5 Right Lower Extremity: Globally 4+/5 Left Lower Extremity: Globally 4+/5 Bed Mobility/Transfers: Not assessed as patient in chair at time of evaluation Sit-stand: Independent Stand-sit: Independent Gait: 15+80 feet using front-wheeled walker with supervision Balance: Static Sitting: Good Dynamic Sitting: Good Static Standing: Good Dynamic Standing: Fair ASSESSMENT: Patient continues to present with the following impairment level findings: Decreased strength, poor ambulation tolerance and distance, difficulty with transfers, impaired balance. Goals: Goals X1 week 1. Supine-Sit Independent MET 2. Sit-Supine Independent MET 3. Sit-Stand Independent MET 4. Stand-Sit Independent MET 5. Bed-Chair Independent MET 6. Gait With 2WW and Supervision up to 100 feet NOT MET 7: Stairs 3 steps with supervision NOT MET 8: Independent in Home program NOT MET DISCHARGE RECOMMENDATIONS: Patient will benefit from detention facility placement for continued skilled physical therapy services in order to progress mobility level, strength, and balance in preparation for a safe discharge to home. TREATMENT CODE/TIME: NE Thank you for the opportunity to participate in the care of this patient. Elsa Menchaca PT, DPT, CLT [facility] [place], [place]
== END 2021-04-21 11:57 | disposition home health service (06) | DRG 698 ==
LOC: ER 04-17 00:59 → MS 04-17 01:01
PROVIDERS: Internal Medicine; Admitting Provider Family Medicine; Emergency Provider Physician Assistant; PCP Family Medicine; Visit Provider Family Medicine
DX: T83.510A Infection and inflammatory reaction due to cystostomy catheter, initial encounter (principal); T79.0XXA Air embolism (traumatic), initial encounter; I13.0 Hypertensive heart and chronic kidney disease with heart failure and stage 1 through stage 4 chronic kidney disease, or unspecified chronic kidney disease; I50.30 Unspecified diastolic (congestive) heart failure; Z16.12 Extended spectrum beta lactamase (ESBL) resistance; N30.01 Acute cystitis with hematuria; K21.9 Gastro-esophageal reflux disease without esophagitis; G89.29 Other chronic pain; E03.9 Hypothyroidism, unspecified; Z93.51 Cutaneous-vesicostomy status; Z95.0 Presence of cardiac pacemaker; I48.0 Paroxysmal atrial fibrillation; J44.9 Chronic obstructive pulmonary disease, unspecified; N18.9 Chronic kidney disease, unspecified; Z79.01 Long term (current) use of anticoagulants; K57.30 Diverticulosis of large intestine without perforation or abscess without bleeding; H40.9 Unspecified glaucoma; M48.061 Spinal stenosis, lumbar region without neurogenic claudication; I49.5 Sick sinus syndrome; G47.00 Insomnia, unspecified; N40.0 Benign prostatic hyperplasia without lower urinary tract symptoms; F41.9 Anxiety disorder, unspecified; Z87.891 Personal history of nicotine dependence; B96.20 Unspecified Escherichia coli [E. coli] as the cause of diseases classified elsewhere
CPT/HCPCS: 51705; 36415; 36416; 74177; 80048; 80053; 80307; 82962; 87040; 87077; 87635; 90662; 93005; 94640; 96361; 96365; 96368; 97110; 97162; 97530; 99221; 99222; 99285; 70450; 71046; 71260; 80320; 81003; 81015; 82140; 83605; 83735; 84439; 84443; 84484; 85025; 85610; 87086; 87186; 93010; 99223; 99232; 99233; 99239; J3490; J7626

== ENCOUNTER → 2021-04-17 09:22 | Outpatient (BNVA) | payer MEDICARE, MEDICAID, SELFPAY | PROVIDERS: PCP Family Medicine; Referring Provider Family Medicine; Visit Provider Psychiatry & Neurology Neurology | DX: R69 Illness, unspecified (principal) ==

== ENCOUNTER → 2021-04-17 09:31 | Outpatient (BNVA) | payer MEDICARE, MEDICAID, SELFPAY | PROVIDERS: PCP Family Medicine; Referring Provider Family Medicine; Visit Provider Urology | DX: R69 Illness, unspecified (principal) ==

== ENCOUNTER 2021-06-01 12:59 | Emergency (ER) | payer MEDICARE, MEDICAID, SELFPAY ==
[2021-06-01] VITALS (15 sets, daily range): BP systolic 113–126; BP diastolic 58–90; PULSE 79–125; RESP 13–24; TEMP 36.8; O2SAT 95–98
--- NOTE | 2021-06-01 13:00 | DI.CT_ITS ---
Exam(s) CT ABDOMEN PELVIS W EXAM: CT ABDOMEN PELVIS W CLINICAL HISTORY: Lower abd pain, R> L, prev Hernia. TECHNIQUE: Imaging Protocol: Axial computed tomography images with coronal and sagittal reformatted images were created and reviewed CONTRAST MATERIAL: Intravenous: Omnipaque 100cc Oral: None COMPARISON: CT CT CHEST/ABD/PEL W from 04/16/2021 FINDINGS: VISUALIZED LUNG BASES: Small right pleural effusion again noted. Cardiac pacemaker wires. ABDOMEN: There is no ascites. LIVER: There are no focal hepatic lesions evident . GALLBLADDER/BILIARY: The gallbladder is again noted to be surgically absent. CBD is not dilated. PANCREAS: No evidence of pancreatic mass nor dilatation of the pancreatic duct. SPLEEN: Spleen size is upper normal-minimally prominent. Calcified splenic granulomas are again note d. No ominous intrasplenic lesions. Splenic and portal veins are patent. ADRENALS: Right adrenal gland unremarkable. There is a nodule in the left adrenal gland measuring 10 x 11 millimeters, unchanged. KIDNEYS:There is an exophytic cyst off the inferior pole the right kidney again noted, this measuring 12 x 11 millimeters. No other significant focal right kidney findings. No significant left kidney findings. No hydronephrosis nor hydroureter. Suprapubic catheter in the urinary bladder is again no temi. Bladder is not distended. No solid renal masses. No calculi nor hydronephrosis.. ABDOMINAL AORTA: Calcified but not enlarged. The common iliac arteries are also calcified but not en larged. LYMPH NODES:There is no retroperitoneal nor paraaortic adenopathy. ABDOMINAL WALL: The bilateral fat containing inguinal hernias are noted, right larger than left. Pre sently there is some fluid in the right inguinal canal-mild. GI: There is no evidence of bowel obstruction, free air, nor abscess. PELVIS: GI: No evidence of appendicitis.There is extensive sigmoid diverticulosis. Also significant divertic ular disease at and distal to the splenic flexure of the colon. LYMPH NODES: There is no intrapelvic nor inguinal adenopathy. REPRODUCTIVE: Prostate gland is enlarged, exhibiting diameter of 6 cm and AP measurement of 5.6 cm. No obturator adenopathy. No adenopathy elsewhere in the pelvis. URINARY BLADDER: Suprapubic catheter. In addition, there is a subtle 1.4 cm by 0.8 cm density in the urinary bladder which may represent a calculus or mural lesion. This is not adjacent to the uretero vesical junctions. OSSEOUS: Degenerative scoliosis convex left. No significant osseous lesions. No fractures evident. Degenerative changes in the hips, more so on the right side. IMPRESSION: 1. There is extensive sigmoid diverticulosis. Although there is no obvious acute diverticulitis, ple ase note that a subtle case of diverticulitis can be missed here, particularly given the extensive in volvement of the sigmoid. Also diverticuli seen up to and including the splenic flexure of the colon . No obvious acute diverticulitis. No appendicitis. 2. Suprapubic catheter in the urinary bladder. Also hyperdensity in the urinary bladder as described above which is either calculus or calcification within a mural lesion. 3. Enlarged prostate gland again noted. No intrapelvic adenopathy. 4. Other findings as above RADIATION DOSE DELIVERED: 1,050.6mGy.cm Total DLP DATA REPOSITORY: All CT scans at this facility are submitted to the National Radiology Data Registry (NRDR) Dose Index Registry (DIR) with the [place] [employer] (ACR). RADIATION OPTIMIZATION: All CT scans at this facility use at least one of these dose optimization te chniques: automated exposure control; mA and/or kV adjustment per patient size (includes targeted exa ms where dose is matched to clinical indication); or iterative reconstruction.
--- NOTE | 2021-06-01 13:15 | ED.GENADUL_ITS ---
Discharge Plan Disposition Patient Disposition: HOME Condition: Improving Discharge Details Clinical Impression: Bladder spasm, UTI (urinary tract infection) Primary Care Provider: Lorena Chong ED Provider: Hardy Frederick Home Meds and New Rx's Prescriptions: New ciprofloxacin HCl [Cipro] 250 mg tablet 250 mg PO BID 4 Days Qty: 8 RF: 0 Continued clonazepam 0.5 mg tablet 0.5 mg PO BID Qty: 60 RF: 0 fentanyl 12 mcg/hr patch 72 hour 1 patch transdermal Q72H MDD 12 mcg Qty: 10 RF: 0 potassium chloride [Klor-Con M20] 20 MEQ tablet,ER particles/crystals 20 meq PO DAILY AM Qty: 30 RF: 0 mirtazapine [Remeron] 15 MG tablet 15 mg PO HS RF: 0 levothyroxine 75 MCG tablet 75 mcg PO DAILY@0600 RF: 0 cholecalciferol (vitamin D3) 1,000 UNITS tablet 1 tab PO DAILY RF: 0 bisacodyl 10 MG suppository 10 mg [place] DAILY PRNRF: 0 latanoprost 0.005 % Drops 1 drp ophthalmic (eye) HS RF: 0 magnesium hydroxide 400 mg/5 mL Suspension 30 ml PO DAILY PRNRF: 0 albuterol sulfate [Ventolin HFA] 90 mcg/actuation Hfa Aerosol Inhaler 2 puff INHALATION QID PRN PRNRF: 0 Spiriva with HandiHaler 18 mcg capsule, w/inhalation device 1 cap INHALATION DAILY RF: 0 pantoprazole 40 MG tablet,delayed release (DR/EC) 40 mg PO DAILY RF: 0 metoprolol tartrate 50 MG tablet 75 mg PO BID RF: 0 Flovent HFA 120 PUFF HFA aerosol inhaler 2 puff Inhalation BID RF: 0 ropinirole 1 mg tablet 2 mg PO QPM RF: 0 furosemide 20 MG tablet 40 mg PO DAILY RF: 0 sennosides [senna] 8.6 mg Tablet 8.6 mg PO HS RF: 0 docusate sodium [Colace] 100 mg Capsule 100 mg PO BID RF: 0 ursodiol 250 mg tablet 250 mg PO BID RF: 0 multivitamin [Tab-A-Raghu] Tablet 1 tab PO DAILY RF: 0 Myrbetriq 50 mg Tablet Extended Release 24 Hr 50 mg PO DAILY Qty: 30 RF: 1 nitroglycerin 0.4 mg tablet, sublingual 0.4 mg sublingual PRN PRNRF: 0 Pradaxa 75 mg capsule 75 mg PO BID RF: 0 acetaminophen [Tylenol] 325 MG tablet 650 mg PO Q6H PRN PRNRF: 0 sucralfate [Carafate] 1 gram tablet 1 gm PO QACHS Qty: 14 RF: 0 lidocaine 5 % adhesive patch,medicated 1 patch DAILY RF: 0 Acidophilus-Pectin 75 million cell -100 mg Capsule 1 cap PO TID RF: 0 fluticasone propionate 50 mcg/actuation spray,suspension 2 spray INTRANASAL BID RF: 0 dorzolamide 2 % drops 1 drp ophthalmic (eye) QAM RF: 0 polyethylene glycol 3350 17 gram Powder In Packet 17 g PO BID Qty: 30 RF: 0 ondansetron 4 mg Tablet,Disintegrating 4 mg PO QID PRN PRNQty: 20 RF: 0 lactulose 20 gram/30 mL solution 20 g PO BID Qty: 1200 RF: 0 morphine concentrate 100 mg/5 mL (20 mg/mL) solution 1 mg PO Q8H PRN PRNRF: 0 Discharge Instructions Instructions: Urinary Tract Infection in Men (ED) Additional Instructions: Your pain may have been due to bladder spasm. Please continue your routine medications including Myrbetriq. Your work-up included CAT scan, chest x-ray, blood work and urinalysis. You also have a fat-containing right inguinal hernia which is not a danger but can cause some pain and may be treated with ice and/or heat. As we discussed there is evidence of bacterial urinary tract infection for which she will be treated with a total of 5 days of ciprofloxacin. Please do not use ondansetron/Zofran with this medication. We will ask our care management team to help arrange a follow-up for you with palliative care. Continue your prescribed medications including morphine if needed for breakthrough pain. Return to the ER for any acute concerns. Medical Decision Making 86-year-old male presents from home with prep onset of right lower abdominal pain today. He has chronic pain, has been noted to be approaching the consideration of hospice care. He has in-home nursing visits who called for ambulance transport today. Patient arrives to the ER with ongoing primarily lower abdominal pain. He is afebrile with blood pressure 125/75 and oxygenating normally. He has nonfocal abdominal tenderness on exam, no hernia appreciated, and suprapubic catheter in place and unremarkable with yellow urine present. Patient was given analgesia, referred for screening laboratories and CT imaging of the abdomen with chest x-ray. Patient's white blood cell count is 6, his hematocrit 43, platelets 183. Chemistries reassuring, BUN 27, creatinine 1.5, troponin negative, lipase 50, urine with nitrites and mixed cells present. CT images reveal bilateral fat-containing inguinal hernias, no significant acute intra-abdominal pathology. Note of small right pleural effusion. Chest x-ray with possible mild hazy right-sided airspace disease. Given CT this is likely simply the small right pleural effusion. Patient's pain significantly improved and you requested to trial liquids by mouth. He does have evidence of UTI, in the context of suprapubic catheter, and may be having some persistent bladder spasms. I have reviewed the patient's recent urine culture results which are primarily gram-negative organisms. There has had some resistance to cephalosporins but appear to be sensitive to ciprofloxacin. I do feel it reasonable to place him on few days of low dose of ciprofloxacin pending culture results. Patient will need to continue his bladder relaxing medications including Myrbetriq. We will ask palliative care to follow-up with the patient. He is stable and improved. HPI General Mode of arrival: EMS . Date/Time Provider Initiated Documentation: 06/01/21 13:34 . Limitations to Documentation: no limitations . Information obtained by: patient and EMS . History of Present Illness 86 year old M presents to the emergency department with the chief complaint of Lower abdominal pain that began at 930, described as severe, Quality is described as constant, and is localized to the abdomen. Patient reports no radiation. Patient started experiencing this hour(s) and it has been constant. No relieving factors improve symptom(s), No exacerbating factors reported . Patient notes nausea/vomiting; denies fever/chills and loss of appetite. Patient did receive the following treatments prior to arrival, other (Given analgesia by on site nurse) Related Data Home Medications Medication Instructions Recorded Confirmed potassium chloride [Klor-Con M20] 20 meq PO DAILY AM #30 tabcr 07/18/15 06/01/21 mirtazapine [Remeron] 15 mg PO HS 03/04/16 06/01/21 levothyroxine 75 mcg PO DAILY@0600 tab 04/13/16 06/01/21 furosemide 40 mg PO DAILY 10/22/16 06/01/21 cholecalciferol (vitamin D3) 1 tab PO DAILY 08/01/17 06/01/21 bisacodyl 10 mg [place] DAILY PRN 12/30/17 06/01/21 docusate sodium [Colace] 100 mg PO BID 11/30/18 06/01/21 sennosides [senna] 8.6 mg PO HS 11/30/18 06/01/21 ursodiol 250 mg PO BID 03/16/20 06/01/21 multivitamin [Tab-A-Raghu] 1 tab PO DAILY 05/12/20 06/01/21 Flovent HFA 2 puff INHALATION BID 09/04/20 06/01/21 Spiriva with HandiHaler 1 cap INHALATION DAILY 09/04/20 06/01/21 albuterol sulfate [Ventolin HFA] 2 puff INHALATION QID PRN PRN 09/04/20 06/01/21 latanoprost 1 drp OPHTHALMIC (EYE) HS 09/04/20 06/01/21 magnesium hydroxide 30 ml PO DAILY PRN 09/04/20 06/01/21 metoprolol tartrate 75 mg PO BID 09/04/20 06/01/21 pantoprazole 40 mg PO DAILY 09/04/20 06/01/21 ropinirole 2 mg PO QPM 09/06/20 06/01/21 Myrbetriq 50 mg PO DAILY #30 tab 09/13/20 06/01/21 Pradaxa 75 mg PO BID 11/05/20 06/01/21 acetaminophen [Tylenol] 650 mg PO Q6H PRN PRN 11/05/20 06/01/21 nitroglycerin 0.4 mg SUBLINGUAL PRN PRN 11/05/20 06/01/21 sucralfate [Carafate] 1 gm PO QACHS #14 tab 01/31/21 06/01/21 lidocaine 1 patch DAILY 03/04/21 04/16/21 Acidophilus-Pectin 1 cap PO TID 03/21/21 04/16/21 dorzolamide 1 drp OPHTHALMIC (EYE) QAM 03/21/21 06/01/21 fluticasone propionate 2 spray INTRANASAL BID 03/21/21 06/01/21 lactulose 20 g PO BID #1200 ml 03/23/21 06/01/21 ondansetron 4 mg PO QID PRN PRN #20 tab 03/23/21 06/01/21 polyethylene glycol 3350 17 g PO BID #30 ea 03/23/21 06/01/21 clonazepam 0.5 mg tablet 0.5 mg PO BID #60 tab 05/02/21 06/01/21 fentanyl 12 mcg/hr transdermal 1 patch TRANSDERMAL Q72H #10 ea 05/14/21 06/01/21 patch MDD 12 mcg ciprofloxacin HCl [Cipro] 250 mg PO BID 4 Days #8 tab 06/01/21 morphine concentrate 1 mg PO Q8H PRN PRN 06/01/21 06/01/21 Previous Rx's Medication Instructions Recorded potassium chloride [Klor-Con M20] 20 meq PO DAILY AM #30 tabcr 07/18/15 levothyroxine 75 mcg PO DAILY@0600 tab 04/13/16 Myrbetriq 50 mg PO DAILY #30 tab 09/13/20 sucralfate [Carafate] 1 gm PO QACHS #14 tab 01/31/21 lactulose 20 g PO BID #1200 ml 03/23/21 ondansetron 4 mg PO QID PRN PRN #20 tab 03/23/21 polyethylene glycol 3350 17 g PO BID #30 ea 03/23/21 clonazepam 0.5 mg tablet 0.5 mg PO BID #60 tab 05/02/21 fentanyl 12 mcg/hr transdermal 1 patch TRANSDERMAL Q72H #10 ea 05/14/21 patch MDD 12 mcg ciprofloxacin HCl [Cipro] 250 mg PO BID 4 Days #8 tab 06/01/21 Allergies Allergy/AdvReac Type Severity Reaction Status Date / Time banana Allergy Mild Skin Rash Unverified 06/01/21 13:12 formoterol fumarate AdvReac Intermediate Ineffective Unverified 06/01/21 13:12 [From Dulera] per Pt mometasone furoate AdvReac Intermediate Ineffective Unverified 06/01/21 13:12 [From Dulera] per Pt hydrocodone AdvReac Unknown Dizziness/L Unverified 06/01/21 13:12 ightheade General Stated Complaint: Abd Prob CINTIA: 2 Review of Systems Narrative: No fall or injury. Has suprapubic catheter. Previously established care with palliative care. 8 systems reviewed and otherwise negative [facility] Active Problem List DVT prophylaxis (Acute) Discharge planning issues (Acute) Air embolism (Acute) Walker as ambulation aid (Acute) Health care proxy on file (Chronic) Chronic dyspnea (Acute) Unintentional weight loss (Acute) Gross hematuria (Acute) Abdominal pain (Acute) Pneumonia (Acute) All medications reviewed (Acute) Chronic GERD (Chronic) Chronic lower back pain (Acute) Chest pain (Acute) Epigastric abdominal pain (Acute) Chronic pain (Chronic) Suprapubic catheter (Chronic) Dysphagia (Acute) Lives alone with help available (Chronic) Encounter for monitoring diuretic therapy (Acute) Bilateral hydrocele (Acute) Inguinal hernia, right (Acute) Right inguinal pain (Acute) Hypothyroidism (Chronic) Shoulder strain (Acute) At high risk for falls (Acute) Bladder spasms (Acute) Pacemaker (Chronic 07/31/16) Palliative care patient (Chronic 11/25/16) Paroxysmal atrial fibrillation (Chronic 07/31/16) Phimosis (Acute 06/12/15) SOB (shortness of breath) on exertion (Acute 07/31/16) 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) Abdominal pain, acute, generalized (Acute) DVT prophylaxis (Acute) Chronic constipation (Chronic) UTI (urinary tract infection) (Acute) Generalized weakness (Acute) BPH (benign prostatic hyperplasia) (Chronic) COPD (chronic obstructive pulmonary disease) (Chronic) Anxiety disorder (Chronic) Hypertension (Chronic) Glaucoma (Chronic) History of kidney stones (Chronic) Atrial fibrillation (Chronic) Chronic anticoagulation (Chronic) Pacemaker (Chronic) History of adenomatous polyp of colon (Chronic) History of surgery (Chronic) Chronic atrial fibrillation (Chronic 05/24/14) 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) Diverticulosis of colon (Chronic) Thyroid nodule (Chronic) Umbilical hernia (Chronic) History of tobacco use (Chronic) Venous insufficiency (Chronic) Varicose veins (Chronic) Spinal stenosis (Chronic) Insomnia (Chronic) Atherosclerotic peripheral vascular disease (Chronic) GERD (gastroesophageal reflux disease) (Chronic) Chronic kidney disease (CKD) (Chronic) Diastolic heart failure (Chronic) Choledocholithiasis (Acute) Medical History Anemia associated with acute blood loss Anxiety Atrial fibrillation BPH (benign prostatic hyperplasia) Chronic obstructive lung disease Diverticulosis of large intestine without diverticulitis Essential hypertension Glaucoma Insomnia Polyp of colon Spinal stenosis of lumbar region Tachycardia-bradycardia Surgical History Colonoscopy - MAC Pacemaker S/P TURP Family History Niece No problems noted. Social History Smoking/Tobacco Use Status: Former Tobacco Use Smoking risk assessment performed?: Yes Alcohol Intake: former Drug use: Never Substance use type: does not use Caregiver/Support person: No Household members: none Housing: other Details: lives in basement of old farmhouse; afraid of going upstairs Number of Children: 0 Communication Needs: Hard of Hearing and Corrective Lenses Education Level: vocational Do you need help understanding health information?: Always current occupation: retired Pets and animals: No Current gender identity: male What is your relationship status?: never How often do you talk on the phone with friends or family?: three or more times per week How often do you get together with friends or relatives?: twice per week Panel score (0-1 are the most socially isolated patients): 1 What type of physical activity do you participate in: none and sedentary lifestyle Special debi needs: No Agree to transfusion: Yes Carbon monox detector in home: No Firearms in home: Yes Do you feel safe at home: Yes Do you feel safe in your relationship?: Yes Additional Social history: Brenden lives in the basement of an old delapidated farmhouse. He heats with wood but leaves his door open so he can breathe. Friend Casa lives about 100-200 yards away. He checks on Brenden regularly--chops, stacks and loads his wood for him. Brenden's closest living relative is his grandniece, Taisha Montes, who is a Home Health nurse. He is her grandmother's baby brother. No one else is alive in his generation. He never . No children. Has always lived on his own terms. Not going anywhere. Exam Narrative Exam Narrative: GEN: awake, alert, oriented 3. Pleasant, well groomed, interactive. HEAD: Normocephalic, atraumatic ENT: Mucous membranes dry, oropharynx unremarkable, External ear exam unremarkable EYES: PERRL, EOMI NECK: Full ROM, no PAULINO, no menigismus CHEST/RESP: Nontender, clear to auscultation bilateral, no wheeze/rhonchi/rales CARDIOVASCULAR: RRR, no murmur, rub stephani. 2+ Rad pulse bilateral ABDOMEN: Suprapubic catheter. Diffusely tender to palpation without focality, no mass. +Bowel sounds EXT: Full ROM, no edema, no rash Neuro: Grossly normal neurologic exam, conversant, interactive. Psych: Speech fluent, thoughts congruent, affect normal Course Vital Signs Vital signs: Vital Signs Temperature 36.8 C 06/01/21 13:07 Pulse 96 H 06/01/21 13:07 Respiratory Rate 20 06/01/21 13:07 Blood Pressure 126/76 06/01/21 13:07 Pulse Oximetry 98 06/01/21 13:07 Temperature 36.8 C 06/01/21 13:07 Temperature Source Temporal Artery Scan 06/01/21 13:07 Pulse 96 H 06/01/21 13:07 Respiratory Rate 20 06/01/21 13:07 Blood Pressure 126/76 06/01/21 13:07 Blood Pressure Position Supine 06/01/21 13:07 Pulse Oximetry 98 06/01/21 13:07 Oxygen Delivery Method Room Air 06/01/21 13:07 Oxygen Flow Rate 0 06/01/21 13:07
[2021-06-01 13:36] LABS: Lactate 1.5 mmol/L (0.6-1.4)
[2021-06-01 13:38] LABS: Abs Immature Grans 0.04 10^3/uL (0.0-0.06); Absolute Basophil Count 0.04 10^3/uL (0.0-0.2); Absolute Eosinophil Count 0.15 10^3/uL (0.0-0.7); Absolute Lymphocyte Count 1.29 10^3/uL (1.2-3.4); Absolute Monocyte Count 0.78 10^3/uL (0.1-0.8); Absolute Neutrophil Count 4.06 10^3/uL (1.2-6.7); Basophils % 0.6; Eosinophils % 2.4; HCT 43.1 % (40.0-50.0); HGB 13.7 g/dL (13.5-17.5); Immature Grans % 0.6; Lymphocytes % 20.3; MCH 30.1 pg (27.0-33.0); MCHC 31.8 % (32.0-36.0); MCV 94.7 fL (80-95); MPV 10.4 fL (8.0-11.0); Monocytes % 12.3; Neutrophils % 63.8; Nucleated RBC 0 %; Platelet Count 183 10^3/uL (130-400); RBC 4.55 10^6/uL (4.36-5.78); RDW 16.2 % (11.8-14.1); RDW-SD 56.3 fL; WBC 6.36 10^3/uL (4.4-10.8)
[2021-06-01] MEDS: Normal Saline 1,000 ML 125 ML IV (13:42)
[2021-06-01 13:59] LABS: ALT 23 U/L (16-63); AST 32 U/L (15-37); Albumin 3.3 g/dL (3.4-5.0); Alkaline Phosphatase 108 U/L (46-116); Anion Gap 7.8 mmol/L (3-11); BUN 27 mg/dL (7-18); CO2 29.2 mmol/L (21.0-32.0); CREATININE 1.5 mg/dL (0.70-1.30); Calcium 9.1 mg/dL (8.5-10.1); Chloride 104 mmol/L (98-107); Estimated GFR 44.48 (mL/min/1.73m2); Glucose 100 mg/dL (74-106); Lipase 50 U/L (73-393); Magnesium 2.1 mg/dL (1.8-2.4); Potassium 4.3 mmol/L (3.5-5.1); Sodium 141 mmol/L (136-145); Total Protein 7.3 g/dL (6.4-8.2)
[2021-06-01 14:00] LABS: INR 1.3 (0.9-1.1); PTT Activated 33.6 sec (21.0-27.5); Prothrombin Time 12.8 sec (9.3-11.0)
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
[2021-06-01 14:03] LABS: Troponin I < 0.05 ng/mL (<0.06)
[2021-06-01 14:32] LABS: Bilirubin Negative (Negative); Blood Trace-intact (Negative); Clarity Turbid (Clear); Glucose Negative (Negative); Ketones Negative (Negative); Leukocyte Esterase TR (Negative); Nitrite Positive (Negative); Specific Gravity 1.025 (1.005-1.025); Urobilinogen 0.2 EU/dL (Up TO 0.2)
[2021-06-01 14:33] LABS: Epithelial Cells Few HPF (Negative); Other Cells Moderate Yeast (Negative)
[2021-06-01 14:34] LABS: Bacteria Many HPF (Negative); Crystals Moderate Amorphous HPF (Negative); Mucus Trace (Negative)
[2021-06-01 14:35] LABS: C & S Indicated? Yes; Casts Negative LPF (Negative)
[2021-06-01] MEDS: Omnipaque 350 MG/ML 100 ML BTL IV (14:58)
[2021-06-01] MEDS: Normal Saline Flush 10 ML SYR IVP (14:59)
--- NOTE | 2021-06-01 15:19 | DI.VRAD_ITS ---
PROCEDURE INFORMATION: Exam: CT Abdomen And Pelvis With Contrast Exam date and time: 06/01/2021 1:16 PM Age: 86 years old Clinical indication: Other: Lower abd pain, r> L, prev hernia TECHNIQUE: Imaging protocol: Computed tomography of the abdomen and pelvis with contrast. Radiation optimization: All CT scans at this facility use at least one of these dose optimization techniques: automated exposure control; mA and/or kV adjustment per patient size (includes targeted exams where dose is matched to clinical indication); or iterative reconstruction. Contrast material: OMNIPAQUE 350; Contrast volume: 100 ml; Contrast route: INTRAVENOUS (IV); COMPARISON: CT CHEST/ABD/PEL W 04/16/2021 7:45 PM FINDINGS: Tubes, catheters and devices: Pacemaker wires noted. Suprapubic catheter in place. Lungs: Mild right lower lobe atelectasis. Pleural spaces: There is a small right pleural effusion. Heart: Coronary artery calcifications/stents identified. Liver: Normal. No mass. Gallbladder and bile ducts: Status post cholecystectomy. Pancreas: Normal. No ductal dilation. Spleen: Splenic calcifications consistent with old granulomatous change. Adrenal glands: Normal. No mass. Kidneys and ureters: Mild renal cortical thinning. Perfusion symmetric. No hydronephrosis or hydroureter. Stomach and bowel: Fat density lesion noted in the duodenum 9 mm, possible lipoma. Diverticulosis without acute diverticulitis. Appendix: No evidence of appendicitis. Intraperitoneal space: Unremarkable. No free air. No significant fluid collection. Vasculature: Severe atherosclerotic change present in the vasculature. Lymph nodes: Unremarkable. No enlarged lymph nodes. Urinary bladder: Unremarkable as visualized. Reproductive: Prostate enlarged, 6 cm transverse. Bones/joints: Moderate lumbar spondylosis. Soft tissues: Small bilateral fat containing inguinal hernias with minimal fluid on the right. IMPRESSION: 1. Small right pleural effusion. 2. No acute abnormality seen to account for symptoms. Dictated and Authenticated by: Cate Craft MD. Ordering:SHERRY Dash MD
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
--- NOTE | 2021-06-01 15:40 | NUR.NOTE ---
Nursing Note: Referral for Palliative Care consult was given to Care Management for progressive decline at home within 1 week if possible. Stephanie Woodruff
[2021-06-01] MEDS: Ciprofloxacin 250 MG TAB PO ×2 (16:01)
== END 2021-06-01 17:29 | disposition home or self-care (01) ==
LOC: ER 16:33
PROVIDERS: Emergency Provider Emergency Medicine; PCP Family Medicine
DX: N39.0 Urinary tract infection, site not specified (principal); N32.89 Other specified disorders of bladder; K40.90 Unilateral inguinal hernia, without obstruction or gangrene, not specified as recurrent; Z96.0 Presence of urogenital implants
CPT/HCPCS: 36415; 80053; 83690; 96361; 96374; 99285; 71045; 74177; 81003; 81015; 83605; 83735; 84484; 85025; 85610; 85730; 87086; 99284; J3490

== ENCOUNTER 2021-06-12 04:03 | Emergency (ER) | payer MEDICARE, MEDICAID, SELFPAY ==
[2021-06-12] VITALS (12 sets, daily range): BP systolic 102–138; BP diastolic 56–86; PULSE 63–113; RESP 12–23; TEMP 36.8; O2SAT 89–99
--- NOTE | 2021-06-12 04:00 | DI.CT_ITS ---
Exam(s) CT ABDOMEN PELVIS WO EXAM: CT ABDOMEN PELVIS WO CLINICAL HISTORY: vomiting, generalized abdominal pain. TECHNIQUE: Imaging Protocol: Axial computed tomography images with coronal and sagittal reformatted images were created and reviewed CONTRAST MATERIAL: Intravenous: none Oral: None COMPARISON: CT CT ABDOMEN PELVIS W from 06/01/2021 FINDINGS: VISUALIZED LUNG BASES: There is infiltrate in the posterior basal segment of the right lower lobe and small right pleural effusion. Small amount of left pleural fluid also noted. No overlying rib dest ruction.. Cardiac pacemaker wires noted. ABDOMEN: There is no ascites. LIVER: There are no obvious focal hepatic lesions evident of this noninfused study. GALLBLADDER/BILIARY: Gallbladder is surgically absent. CBD is not dilated. PANCREAS: No evidence of pancreatic mass nor dilatation of the pancreatic duct. SPLEEN: Spleen size normal. Calcified splenic granulomas are noted. ADRENALS: There are no significant adrenal masses. KIDNEYS:Left kidney unremarkable. There is an exophytic cyst off the inferior pole of the right kidn ey measuring 1.2 x 1.1 cm. Unchanged from previous. No new focal renal findings. No calculi. No h ydronephrosis. No hydroureter. Suprapubic catheter in the urinary bladder appears to be in satisfac tory position.. ABDOMINAL AORTA: Calcified but not enlarged. LYMPH NODES: There is no retroperitoneal nor paraaortic adenopathy. ABDOMINAL WALL: No evidence of significant anterior abdominal wall nor inguinal hernia. GI: There is no evidence of bowel obstruction, free air, nor abscess. PELVIS: LYMPH NODES: There is no intrapelvic nor inguinal adenopathy. GI: No evidence of appendicitis.Extensive sigmoid diverticulosis but no evidence of obvious acute div erticulitis. Also diverticulosis at than beyond the splenic flexure of the colon. URINARY BLADDER: Suprapubic catheter in place. REPRODUCTIVE: Prostate gland is significantly enlarged. No obturator adenopathy evident. OSSEOUS: No significant osseous lesions. Multilevel chronic degenerative disc disease. IMPRESSION: 1. Compared to 02/21/2021 is again noted evidence of extensive sigmoid diverticulosis but no obvio us diverticulitis. No appendicitis. 2. Suprapubic catheter in the urinary bladder again noted. Enlarged prostate gland again noted. Sma ll benign solitary cyst in the right kidney again noted 3. No acute findings evident. RADIATION DOSE DELIVERED: 956.47mGy.cm Total DLP DATA REPOSITORY: All CT scans at this facility are submitted to the National Radiology Data Registry (NRDR) Dose Index Registry (DIR) with the [employer] ([employer]). RADIATION OPTIMIZATION: All CT scans at this facility use at least one of these dose optimization te chniques: automated exposure control; mA and/or kV adjustment per patient size (includes targeted exa ms where dose is matched to clinical indication); or iterative reconstruction.
--- NOTE | 2021-06-12 04:01 | W.ED.GENAD ---
Discharge Plan Disposition Patient Disposition: HOME Condition: Good Discharge Details Clinical Impression: Vomiting Primary Care Provider: Lorena Chong ED Provider: Tim Mckeon Home Meds and New Rx's Prescriptions: Continued fentanyl 12 mcg/hr patch 72 hour 1 patch transdermal Q72H MDD 12 mcg Qty: 10 RF: 0 clonazepam 0.5 mg tablet 0.5 mg PO BID Qty: 60 RF: 0 potassium chloride [Klor-Con M20] 20 MEQ tablet,ER particles/crystals 20 meq PO DAILY AM Qty: 30 RF: 0 mirtazapine [Remeron] 15 MG tablet 15 mg PO HS RF: 0 levothyroxine 75 MCG tablet 75 mcg PO DAILY@0600 RF: 0 cholecalciferol (vitamin D3) 1,000 UNITS tablet 1 tab PO DAILY RF: 0 bisacodyl 10 MG suppository 10 mg [place] DAILY PRNRF: 0 latanoprost 0.005 % Drops 1 drp ophthalmic (eye) HS RF: 0 magnesium hydroxide 400 mg/5 mL Suspension 30 ml PO DAILY PRNRF: 0 albuterol sulfate [Ventolin HFA] 90 mcg/actuation Hfa Aerosol Inhaler 2 puff INHALATION QID PRN PRNRF: 0 Spiriva with HandiHaler 18 mcg capsule, w/inhalation device 1 cap INHALATION DAILY RF: 0 pantoprazole 40 MG tablet,delayed release (DR/EC) 40 mg PO DAILY RF: 0 metoprolol tartrate 50 MG tablet 75 mg PO BID RF: 0 Flovent HFA 120 PUFF HFA aerosol inhaler 2 puff Inhalation BID RF: 0 ropinirole 1 mg tablet 2 mg PO QPM RF: 0 furosemide 20 MG tablet 40 mg PO DAILY RF: 0 sennosides [senna] 8.6 mg Tablet 8.6 mg PO HS RF: 0 docusate sodium [Colace] 100 mg Capsule 100 mg PO BID RF: 0 ursodiol 250 mg tablet 250 mg PO BID RF: 0 multivitamin [Tab-A-Raghu] Tablet 1 tab PO DAILY RF: 0 Myrbetriq 50 mg Tablet Extended Release 24 Hr 50 mg PO DAILY Qty: 30 RF: 1 nitroglycerin 0.4 mg tablet, sublingual 0.4 mg sublingual PRN PRNRF: 0 Pradaxa 75 mg capsule 75 mg PO BID RF: 0 acetaminophen [Tylenol] 325 MG tablet 650 mg PO Q6H PRN PRNRF: 0 sucralfate [Carafate] 1 gram tablet 1 gm PO QACHS Qty: 14 RF: 0 lidocaine 5 % adhesive patch,medicated 1 patch DAILY RF: 0 Acidophilus-Pectin 75 million cell -100 mg Capsule 1 cap PO TID RF: 0 fluticasone propionate 50 mcg/actuation spray,suspension 2 spray INTRANASAL BID RF: 0 dorzolamide 2 % drops 1 drp ophthalmic (eye) QAM RF: 0 polyethylene glycol 3350 17 gram Powder In Packet 17 g PO BID Qty: 30 RF: 0 ondansetron 4 mg Tablet,Disintegrating 4 mg PO QID PRN PRNQty: 20 RF: 0 lactulose 20 gram/30 mL solution 20 g PO BID Qty: 1200 RF: 0 morphine concentrate 100 mg/5 mL (20 mg/mL) solution 1 mg PO Q8H PRN PRNRF: 0 Discharge Instructions Instructions: Acute Nausea and Vomiting (ED) Additional Instructions: At this time your work-up has returned and is very reassuring. Your CAT scan shows no significant abnormalities. Your laboratory work-up is stable. Your urine does show evidence of a potential very mild infection but I do not think this is the cause of your vomiting. We will send urine cultures and contact you if they are positive requiring treatment. As you stated there was a significant amount of chlorine in the water. Please avoid drinking from your well for the next week or 2. Please drink bottled water in the meantime. Stick with an easy diet of rice, applesauce, and toast for the next week. Take your home Zofran as needed for nausea. Please take Pepto-Bismol for upset stomach. If you notice any worsening of your symptoms, or any new symptoms such as vomiting, diarrhea, fever, chills, shortness of breath, chest pain, numbness, weakness, or fainting , please return immediately to the emergency department for reevaluation. Please follow up with your primary care provider as soon as possible for reassessment and reevaluation. As always, it was a pleasure participating in your medical care today. Referrals: Lorena Chong [Primary Care Provider] - Medical Decision Making This is an 86-year-old male who is a poor historian and a palliative care patient with a past medical history of A. fib, BPH, COPD, hypertension, TURP, pacemaker, who presents today via EMS for vomiting for the last 2 days. Patient states that his symptoms ease or drinks anything it comes back up. He denies any diarrhea. He denies any chest pain. He denies any blood in the vomit. He did contact EMS, they brought him to the ER for further evaluation. They did give him 4 mg of Zofran prior to arrival. Patient was able to ambulate out to the stretcher. Patient has no other complaints at this time. Pain is made worse with eating. Improved with nothing. Exam demonstrates a cachectic appearing male, mild abdominal tenderness throughout. Suprapubic catheter is in place and is unremarkable on exam. Patient actually looks better than he often does. Concern for obstruction, ileus, or other acute intra-abdominal pathology. We will get CT scan, treat his pain, gently rehydrate, monitor closely and reassess. [address] scan has returned, negative for any acute process per virtual radiology. Laboratory work-up is notably benign, renal function stable. Urinalysis is positive for small nitrites and leuk esterase, however only minimal WBCs. He has his chronic suprapubic Kang catheter. Will hold off on any antibiotic treatment and wait for cultures to return. Patient feeling better, patient was rehydrated. P.o. challenge was performed and the patient tolerated this well without any vomiting. Repeat abdominal exam shows no evidence of acute surgical abdomen. Patient stable for discharge. Patient does not want to be admitted, and he does want to go home and is requesting to go home. Discussed red flags which to return. At this time there is no evidence of acute surgical abdomen or acute life-threatening intra-abdominal etiology requiring surgery or inpatient management. I have extensively reviewed the treatment plan and discharge instructions with the patient. I have addressed all patient concerns at this time. The patient was made aware of what symptoms to monitor for that would warrant a return to the emergency department. Discussed the plan with the patient, they demonstrate verbal understanding and agreement with our assessment and plan at this time. The documentation in this chart was dictated using [employer] dictation software. Please excuse any dictation errors. Of note while we were getting ready to discharge the patient he also stated that 4 days ago they took a mouth out of his will, because his water had been tasting funny. He then dumped a bunch of chlorine tablet into the well. I suspect the patient has mild gastritis secondary to these exacerbating factors. I did recommend that he only drink bottled water for the next week or 2, that he stick with a bland diet, and that he run his water through quite sufficiently before he starts drinking from it again. FINDINGS: Tubes, catheters and devices: Suprapubic urinary bladder catheter in place Pleural spaces: Small right-sided pleural effusion and dense basilar atelectasis Liver: Normal. No mass. Gallbladder and bile ducts: The patient is status post cholecystectomy. Pancreas: Normal. No ductal dilation. Spleen: Splenic granuloma Adrenal glands: Normal. No mass. Kidneys and ureters: Normal. No hydronephrosis. Stomach and bowel: Colonic diverticulosis is present without evidence for inflammation. Appendix: No evidence of appendicitis. Intraperitoneal space: Unremarkable. No free air. No significant fluid collection. Vasculature: Prominent atherosclerotic calcifications of the abdominal aorta are noted. Lymph nodes: Unremarkable. No enlarged lymph nodes. Urinary bladder: Unremarkable as visualized. Reproductive: Prostate gland prominent measuring 6.1 x 5.6 cm Bones/joints: Unremarkable. No acute fracture. Soft tissues: Unremarkable. IMPRESSION: No acute findings Thank you for allowing us to participate in the care of your patient. Dictated and Authenticated by: Adonay Vergara MD 06/12/2021 5:07 AM Eastern Time ([place] & [place]) HPI General Date/Time Provider Initiated Documentation: 06/12/21 06:01. HPI Narrative: This is an 86-year-old male who is a poor historian and a palliative care patient with a past medical history of A. fib, BPH, COPD, hypertension, TURP, pacemaker, who presents today via EMS for vomiting for the last 2 days. Patient states that his symptoms ease or drinks anything it comes back up. He denies any diarrhea. He denies any chest pain. He denies any blood in the vomit. He did contact EMS, they brought him to the ER for further evaluation. They did give him 4 mg of Zofran prior to arrival. Patient was able to ambulate out to the stretcher. Patient has no other complaints at this time. Pain is made worse with eating. Improved with nothing. Related Data Home Medications Medication Instructions Recorded Confirmed potassium chloride [Klor-Con M20] 20 meq PO DAILY AM #30 tabcr 07/18/15 06/12/21 mirtazapine [Remeron] 15 mg PO HS 03/04/16 06/12/21 levothyroxine 75 mcg PO DAILY@0600 tab 04/13/16 06/12/21 furosemide 40 mg PO DAILY 10/22/16 06/12/21 cholecalciferol (vitamin D3) 1 tab PO DAILY 08/01/17 06/12/21 bisacodyl 10 mg [place] DAILY PRN 12/30/17 06/12/21 docusate sodium [Colace] 100 mg PO BID 11/30/18 06/12/21 sennosides [senna] 8.6 mg PO HS 11/30/18 06/12/21 ursodiol 250 mg PO BID 03/16/20 06/12/21 multivitamin [Tab-A-Raghu] 1 tab PO DAILY 05/12/20 06/12/21 Flovent HFA 2 puff INHALATION BID 09/04/20 06/12/21 Spiriva with HandiHaler 1 cap INHALATION DAILY 09/04/20 06/12/21 albuterol sulfate [Ventolin HFA] 2 puff INHALATION QID PRN PRN 09/04/20 06/12/21 latanoprost 1 drp OPHTHALMIC (EYE) HS 09/04/20 06/12/21 magnesium hydroxide 30 ml PO DAILY PRN 09/04/20 06/12/21 metoprolol tartrate 75 mg PO BID 09/04/20 06/12/21 pantoprazole 40 mg PO DAILY 09/04/20 06/12/21 ropinirole 2 mg PO QPM 09/06/20 06/12/21 Myrbetriq 50 mg PO DAILY #30 tab 09/13/20 06/12/21 Pradaxa 75 mg PO BID 11/05/20 06/12/21 acetaminophen [Tylenol] 650 mg PO Q6H PRN PRN 11/05/20 06/12/21 nitroglycerin 0.4 mg SUBLINGUAL PRN PRN 11/05/20 06/10/21 sucralfate [Carafate] 1 gm PO QACHS #14 tab 01/31/21 06/12/21 lidocaine 1 patch DAILY 03/04/21 06/12/21 Acidophilus-Pectin 1 cap PO TID 03/21/21 06/12/21 dorzolamide 1 drp OPHTHALMIC (EYE) QAM 03/21/21 06/12/21 fluticasone propionate 2 spray INTRANASAL BID 03/21/21 06/12/21 lactulose 20 g PO BID #1200 ml 03/23/21 06/12/21 ondansetron 4 mg PO QID PRN PRN #20 tab 03/23/21 06/12/21 polyethylene glycol 3350 17 g PO BID #30 ea 03/23/21 06/12/21 morphine concentrate 1 mg PO Q8H PRN PRN 06/01/21 06/12/21 clonazepam 0.5 mg tablet 0.5 mg PO BID #60 tab 06/10/21 06/12/21 fentanyl 12 mcg/hr transdermal 1 patch TRANSDERMAL Q72H #10 ea 06/10/21 06/12/21 patch MDD 12 mcg Previous Rx's Medication Instructions Recorded potassium chloride [Klor-Con M20] 20 meq PO DAILY AM #30 tabcr 07/18/15 levothyroxine 75 mcg PO DAILY@0600 tab 04/13/16 Myrbetriq 50 mg PO DAILY #30 tab 09/13/20 sucralfate [Carafate] 1 gm PO QACHS #14 tab 01/31/21 lactulose 20 g PO BID #1200 ml 03/23/21 ondansetron 4 mg PO QID PRN PRN #20 tab 03/23/21 polyethylene glycol 3350 17 g PO BID #30 ea 03/23/21 clonazepam 0.5 mg tablet 0.5 mg PO BID #60 tab 06/10/21 fentanyl 12 mcg/hr transdermal 1 patch TRANSDERMAL Q72H #10 ea 06/10/21 patch MDD 12 mcg Allergies Allergy/AdvReac Type Severity Reaction Status Date / Time banana Allergy Mild Skin Rash Unverified 06/12/21 04:17 formoterol fumarate AdvReac Intermediate Ineffective Unverified 06/12/21 04:17 [From Dulera] per Pt mometasone furoate AdvReac Intermediate Ineffective Unverified 06/12/21 04:17 [From Dulera] per Pt hydrocodone AdvReac Unknown Dizziness/L Unverified 06/12/21 04:17 ightheade General CINTIA: 2 Review of Systems All systems reviewed & are unremarkable except as noted in HPI and below PFSH Active Problem List Adrenal nodule (Chronic) History of cholecystectomy (Chronic) Goals of care, counseling/discussion (Acute) Bladder spasm (Acute) Air embolism (Acute) Walker as ambulation aid (Acute) Health care proxy on file (Chronic) Chronic dyspnea (Acute) Unintentional weight loss (Acute) Abdominal pain (Acute) All medications reviewed (Acute) Chronic GERD (Chronic) Chronic lower back pain (Acute) Chest pain (Acute) Epigastric abdominal pain (Acute) Chronic pain (Chronic) Suprapubic catheter (Chronic) Dysphagia (Acute) Lives alone with help available (Chronic) Encounter for monitoring diuretic therapy (Acute) Bilateral hydrocele (Acute) Inguinal hernia, right (Acute) Right inguinal pain (Acute) Hypothyroidism (Chronic) Shoulder strain (Acute) At high risk for falls (Acute) Bladder spasms (Acute) Pacemaker (Chronic 07/31/16) Palliative care patient (Chronic 11/25/16) Paroxysmal atrial fibrillation (Chronic 07/31/16) Phimosis (Acute 06/12/15) SOB (shortness of breath) on exertion (Acute 07/31/16) 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) Abdominal pain, acute, generalized (Acute) DVT prophylaxis (Acute) Chronic constipation (Chronic) UTI (urinary tract infection) (Acute) Generalized weakness (Acute) BPH (benign prostatic hyperplasia) (Chronic) COPD (chronic obstructive pulmonary disease) (Chronic) Anxiety disorder (Chronic) Hypertension (Chronic) Glaucoma (Chronic) History of kidney stones (Chronic) Atrial fibrillation (Chronic) Chronic anticoagulation (Chronic) Pacemaker (Chronic) History of adenomatous polyp of colon (Chronic) History of surgery (Chronic) Chronic atrial fibrillation (Chronic 05/24/14) 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) Diverticulosis of colon (Chronic) Thyroid nodule (Chronic) Umbilical hernia (Chronic) History of tobacco use (Chronic) Venous insufficiency (Chronic) Varicose veins (Chronic) Spinal stenosis (Chronic) Insomnia (Chronic) Atherosclerotic peripheral vascular disease (Chronic) GERD (gastroesophageal reflux disease) (Chronic) Chronic kidney disease (CKD) (Chronic) Diastolic heart failure (Chronic) Choledocholithiasis (Acute) Medical History Anemia associated with acute blood loss Anxiety Atrial fibrillation BPH (benign prostatic hyperplasia) Chronic obstructive lung disease Diverticulosis of large intestine without diverticulitis Essential hypertension Glaucoma Insomnia Polyp of colon Spinal stenosis of lumbar region Tachycardia-bradycardia Surgical History Colonoscopy - MAC Pacemaker S/P TURP Family History Niece No problems noted. Social History Smoking/Tobacco Use Status: Former Tobacco Use Smoking risk assessment performed?: Yes Alcohol Intake: former Drug use: Never Substance use type: does not use Caregiver/Support person: No Household members: none Housing: other Details: lives in basement of old farmhouse; afraid of going upstairs Number of Children: 0 Communication Needs: Hard of Hearing and Corrective Lenses Education Level: vocational Do you need help understanding health information?: Always current occupation: retired Pets and animals: No Current gender identity: male What is your relationship status?: never How often do you talk on the phone with friends or family?: three or more times per week How often do you get together with friends or relatives?: twice per week Panel score (0-1 are the most socially isolated patients): 1 What type of physical activity do you participate in: none and sedentary lifestyle Special debi needs: No Agree to transfusion: Yes Carbon monox detector in home: No Firearms in home: Yes Do you feel safe at home: Yes Do you feel safe in your relationship?: Yes Additional Social history: Brenden lives in the basement of an old delapidated farmhouse. He heats with wood but leaves his door open so he can breathe. Friend Casa lives about 100-200 yards away. He checks on Brenden regularly--chops, stacks and loads his wood for him. Brenden's closest living relative is his grandniece, Taisha Montes, who is a Home Health nurse. He is her grandmother's baby brother. No one else is alive in his generation. He never . No children. Has always lived on his own terms. Not going anywhere. Exam Narrative Exam Narrative: 1.Const: Elderly and cachectic 2.Eyes: PERRL, no conjunctival injection, and symmetrical lids. 3.ENT: Atraumatic external nose and ears. Moist MM. Neck: Symmetric, trachea midline, No thyromegaly. 4.CVS: +S1/S2, No murmurs or gallops. Peripheral pulses 2+ and equal in all extremities. Brisk capillary refill in all extremities. 5.RESP: Unlabored respiratory effort. Clear to auscultation bilaterally. No wheezes rales or rhonchi 6.GI: Soft, nondistended, mild generalized tenderness throughout. No focal component. Suprapubic catheter remains in place with no abnormalities. 7.MSK: Normocephalic/Atraumatic, Extremities w/o deformity. No cyanosis or clubbing, Normal movement of all extremities. Patient has complained of pain in his fourth and fifth toes on the left foot, but there is no evidence of significant ulcer or deformity. 8.Skin: Warm, Dry. No rashes or lesions. 9.Neuro: edger tailer II-XII grossly intact. Sensation grossly intact, no focal neurologic deficits. 10.Psych: (AAO) x3. Appropriate mood and affect
[2021-06-12 04:20] LABS: Lactate 1.1 mmol/L (0.6-1.4)
[2021-06-12] MEDS: Normal Saline 500 ML IV (04:20)
[2021-06-12 04:22] LABS: Abs Immature Grans 0.02 10^3/uL (0.0-0.06); Absolute Basophil Count 0.04 10^3/uL (0.0-0.2); Absolute Eosinophil Count 0.09 10^3/uL (0.0-0.7); Absolute Lymphocyte Count 1.37 10^3/uL (1.2-3.4); Absolute Monocyte Count 0.62 10^3/uL (0.1-0.8); Absolute Neutrophil Count 3.77 10^3/uL (1.2-6.7); Basophils % 0.7; Eosinophils % 1.5; HCT 45.4 % (40.0-50.0); HGB 14.2 g/dL (13.5-17.5); Immature Grans % 0.3; Lymphocytes % 23.2; MCH 29.5 pg (27.0-33.0); MCHC 31.3 % (32.0-36.0); MCV 94.2 fL (80-95); MPV 9.7 fL (8.0-11.0); Monocytes % 10.5; Neutrophils % 63.8; Nucleated RBC 0 %; Platelet Count 198 10^3/uL (130-400); RBC 4.82 10^6/uL (4.36-5.78); RDW 16.6 % (11.8-14.1); RDW-SD 57.6 fL; WBC 5.91 10^3/uL (4.4-10.8)
[2021-06-12] MEDS: HYDROmorphone 2 MG/ML VIAL 1 MG IVP (04:26)
[2021-06-12 04:35] LABS: ALT 19 U/L (16-63); AST 23 U/L (15-37); Albumin 3.6 g/dL (3.4-5.0); Alkaline Phosphatase 96 U/L (46-116); BUN 25 mg/dL (7-18); CREATININE 1.6 mg/dL (0.70-1.30); Calcium 9.4 mg/dL (8.5-10.1); Chloride 105 mmol/L (98-107); Estimated GFR 41.29 (mL/min/1.73m2); Glucose 98 mg/dL (74-106); Lipase 48 U/L (73-393); Potassium 3.7 mmol/L (3.5-5.1); Sodium 143 mmol/L (136-145); Total Protein 7.4 g/dL (6.4-8.2)
--- NOTE | 2021-06-12 05:08 | DI.VRAD_ITS ---
PROCEDURE INFORMATION: Exam: CT Abdomen And Pelvis Without Contrast Exam date and time: 06/12/2021 4:10 AM Age: 86 years old Clinical indication: Other: Vomitting, gen abd pain TECHNIQUE: Imaging protocol: Computed tomography of the abdomen and pelvis without contrast. COMPARISON: CT ABDOMEN PELVIS W 06/01/2021 2:42 PM FINDINGS: Tubes, catheters and devices: Suprapubic urinary bladder catheter in place Pleural spaces: Small right-sided pleural effusion and dense basilar atelectasis Liver: Normal. No mass. Gallbladder and bile ducts: The patient is status post cholecystectomy. Pancreas: Normal. No ductal dilation. Spleen: Splenic granuloma Adrenal glands: Normal. No mass. Kidneys and ureters: Normal. No hydronephrosis. Stomach and bowel: Colonic diverticulosis is present without evidence for inflammation. Appendix: No evidence of appendicitis. Intraperitoneal space: Unremarkable. No free air. No significant fluid collection. Vasculature: Prominent atherosclerotic calcifications of the abdominal aorta are noted. Lymph nodes: Unremarkable. No enlarged lymph nodes. Urinary bladder: Unremarkable as visualized. Reproductive: Prostate gland prominent measuring 6.1 x 5.6 cm Bones/joints: Unremarkable. No acute fracture. Soft tissues: Unremarkable. IMPRESSION: No acute findings Dictated and Authenticated by: Adonay Vergara MD. Ordering:EVER Dumont MD
[2021-06-12 05:15] LABS: Bilirubin Negative (Negative); Blood Trace-lysed (Negative); Clarity Sl Cloudy (Clear); Glucose Negative (Negative); Ketones Negative (Negative); Leukocyte Esterase Small (Negative); Nitrite Positive (Negative); Specific Gravity 1.025 (1.005-1.025); Urobilinogen 0.2 EU/dL (Up TO 0.2)
[2021-06-12 05:16] LABS: Bacteria Moderate HPF (Negative); C & S Indicated? C&S Done As Ordered; Casts Negative LPF (Negative); Crystals Negative HPF (Negative); Epithelial Cells Rare HPF (Negative); Mucus Negative (Negative); RBC 0-2 HPF (0-2)
[2021-06-12] MEDS: Ondansetron 4 MG/2 ML VIAL (05:37)
== END 2021-06-12 07:29 | disposition home or self-care (01) ==
PROVIDERS: Emergency Provider Student in an Organized Health Care Education/Training Program; PCP Family Medicine
DX: R11.10 Vomiting, unspecified (principal); R10.9 Unspecified abdominal pain
CPT/HCPCS: 36415; 80053; 83690; 87077; 96361; 96374; 96375; 99284; 74176; 81003; 81015; 83605; 85025; 87086; 87186; J2405

== ENCOUNTER 2021-06-15 11:50 | Emergency (ER) | payer MEDICARE, MEDICAID, SELFPAY ==
[2021-06-15] VITALS (26 sets, daily range): BP systolic 112–158; BP diastolic 55–99; PULSE 59–121; RESP 13–29; TEMP 36.6; O2SAT 87–100
--- NOTE | 2021-06-15 12:15 | DI.CT_ITS ---
Exam(s) CT ABDOMEN PELVIS W EXAM: CT ABDOMEN PELVIS W CLINICAL HISTORY: n/v, abdominal pain TECHNIQUE: Imaging Protocol: Axial computed tomography images with coronal and sagittal reformatted images were created and reviewed CONTRAST MATERIAL: Intravenous: Omnipaque 350 Contrast volume:100 mL Oral: No COMPARISON: CT CT ABDOMEN PELVIS W from 06/01/[address] ABDOMEN PELVIS W from 06/01/[address] ABDOMEN PELVIS WO from 06/12/2021 FINDINGS: ABDOMEN: Lung Bases: No acute pulmonary process. There is a very small right pleural effusion which has decre ased in size compared to 06/01/2021. Liver: Fatty infiltration of the liver. No measurable mass. There is a stable area of hypodensity ne ar the gallbladder fossa. This may represent focal fatty infiltration. Portal, Superior Mesenteric, and Splenic Veins: Unremarkable. Gallbladder and Biliary Tract: Status post cholecystectomy. No biliary ductal dilatation. Pancreas: Normal density, no abnormal calcifications or inflammatory process. Spleen: Normal. Calcified granuloma are present. Adrenals: Stable adrenal nodularity. Kidneys: Normal size, contour and axis. No radiodense stones or obstructive uropathy. There is a stab le right renal simple cyst. There are tiny hypodensities seen in both kidneys which are too small fo r further characterization but likely reflect small cysts. Abdominal Aorta: Abdominal portion non-dilated. Atherosclerosis. Bowel: No obstruction or bowel wall thickening. No evidence of appendicitis. There is diverticulosis throughout the colon. No evidence of acute diverticulitis. Peritoneal Cavity: No ascites, collection or mesenteric inflammatory response. No free air. Lymph Nodes: Within normal limits. Bones: Within normal limits for the patient's age. Soft Tissues: Fat containing inguinal hernia are present. PELVIS: Bladder: There is a suprapubic catheter in place. The urinary bladder is decompressed. Reproductive Organs: There is an enlarged prostate gland. Lymph Nodes: Within normal limits. Bones: Within normal limits for the patient's age. IMPRESSION: No acute abdominal or pelvic process. RADIATION DOSE DELIVERED: 958.34mGy.cm Total DLP DATA REPOSITORY: All CT scans at this facility are submitted to the National Radiology Data Registry (NRDR) Dose Index Registry (DIR) with the [employer] (A[employer]). RADIATION OPTIMIZATION: All CT scans at this facility use at least one of these dose optimization te chniques: automated exposure control; mA and/or kV adjustment per patient size (includes targeted exa ms where dose is matched to clinical indication); or iterative reconstruction.
--- NOTE | 2021-06-15 12:16 | ED.GENADUL_ITS ---
Discharge Plan Disposition Patient Disposition: HOME Condition: Stable Discharge Details Clinical Impression: Vomiting, Abdominal pain, UTI (urinary tract infection) Primary Care Provider: Lorena Chong ED Provider: Geovany Valencia [place] Meds and New Rx's Prescriptions: New nitrofurantoin monohyd/m-cryst [Macrobid] 100 mg capsule 100 mg PO Q12H 5 Days Qty: 10 RF: 0 Continued fentanyl 12 mcg/hr patch 72 hour 1 patch transdermal Q72H MDD 12 mcg Qty: 10 RF: 0 clonazepam 0.5 mg tablet 0.5 mg PO BID Qty: 60 RF: 0 potassium chloride [Klor-Con M20] 20 MEQ tablet,ER particles/crystals 20 meq PO DAILY AM Qty: 30 RF: 0 mirtazapine [Remeron] 15 MG tablet 15 mg PO HS RF: 0 levothyroxine 75 MCG tablet 75 mcg PO DAILY@0600 RF: 0 cholecalciferol (vitamin D3) 1,000 UNITS tablet 1 tab PO DAILY RF: 0 bisacodyl 10 MG suppository 10 mg DE DAILY PRNRF: 0 latanoprost 0.005 % Drops 1 drp ophthalmic (eye) HS RF: 0 magnesium hydroxide 400 mg/5 mL Suspension 30 ml PO DAILY PRNRF: 0 albuterol sulfate [Ventolin HFA] 90 mcg/actuation Hfa Aerosol Inhaler 2 puff INHALATION QID PRN PRNRF: 0 Spiriva with HandiHaler 18 mcg capsule, w/inhalation device 1 cap INHALATION DAILY RF: 0 pantoprazole 40 MG tablet,delayed release (DR/EC) 40 mg PO DAILY RF: 0 metoprolol tartrate 50 MG tablet 75 mg PO BID RF: 0 Flovent HFA 120 PUFF HFA aerosol inhaler 2 puff Inhalation BID RF: 0 ropinirole 1 mg tablet 2 mg PO QPM RF: 0 furosemide 20 MG tablet 40 mg PO DAILY RF: 0 sennosides [senna] 8.6 mg Tablet 8.6 mg PO HS RF: 0 docusate sodium [Colace] 100 mg Capsule 100 mg PO BID RF: 0 ursodiol 250 mg tablet 250 mg PO BID RF: 0 multivitamin [Tab-A-Raghu] Tablet 1 tab PO DAILY RF: 0 Myrbetriq 50 mg Tablet Extended Release 24 Hr 50 mg PO DAILY Qty: 30 RF: 1 nitroglycerin 0.4 mg tablet, sublingual 0.4 mg sublingual PRN PRNRF: 0 Pradaxa 75 mg capsule 75 mg PO BID RF: 0 acetaminophen [Tylenol] 325 MG tablet 650 mg PO Q6H PRN PRNRF: 0 sucralfate [Carafate] 1 gram tablet 1 gm PO QACHS Qty: 14 RF: 0 lidocaine 5 % adhesive patch,medicated 1 patch DAILY RF: 0 Acidophilus-Pectin 75 million cell -100 mg Capsule 1 cap PO TID RF: 0 fluticasone propionate 50 mcg/actuation spray,suspension 2 spray INTRANASAL BID RF: 0 dorzolamide 2 % drops 1 drp ophthalmic (eye) QAM RF: 0 polyethylene glycol 3350 17 gram Powder In Packet 17 g PO BID Qty: 30 RF: 0 ondansetron 4 mg Tablet,Disintegrating 4 mg PO QID PRN PRNQty: 20 RF: 0 lactulose 20 gram/30 mL solution 20 g PO BID Qty: 1200 RF: 0 morphine concentrate 100 mg/5 mL (20 mg/mL) solution 1 mg PO Q8H PRN PRNRF: 0 Discharge Instructions Additional Instructions: Your blood work and cat scan did not show any significant changes from your baseline follow up with your primary care provider within 1 week if you feel more ill, have fevers or difficulty breathing return to the emergency department Medical Decision Making <Geovany Valencia MD - Last Filed: 06/15/21 15:11> 86 yo male with a PMH of diastolic CHF, atrial fibrillation, COPD, CKD, GERD/Barrets esophagus, chronic pain, suprapubic catheter, dysphagia, hypothyroidism, chronic constipation, BPH, anxiety disorder, who comes in with 6 days of intermittent n/v and abdominal pain. Was seen here a few days ago and had reassuring labs and ct and was discharged. He has been taking zofran without relief so came here for a reevaluation. He denies chest pain, cough, dyspnea, fevers. He can't think of anything that makes the pain better or worse. He is tender in the mid and upper abdomen no guarding or rebound, suprapubic catheter in place and has clear yellow urine. Given his continued symptoms will obtain labs to evaluate for perez, pancreatitis and also repeat ct to evaluate for possible sbo among other pathologies. ct shows no acute findings, ua positive for nitrites and urine from 2 days ago is growing bacteria and in the past has been sensitive to macrobid so this was ordered, no findings to suggest pyelo, awaiting c diff results as had diarrhea. Is feeling better now, no pain on repeat exam. c diff negative, he is sleeping but awakens easily, still no abdominal tenderness. Given reassuring lab work and cat scan results feel he is stable for d/c. ADvised to f/u with pcp and return precautions given Differential Diagnosis Differential Diagnosis: sbo, pancreatitis, gastroenteritis Medical Records Medical records reviewed: Yes I reviewed the patient's medical records. Imaging Data Radiologic Study: Attestation: I personally reviewed and interpreted this imaging study as follows: Imaging: CT Scan Radiologist's impression: no acute findings Lab Data Lab results reviewed: Yes I reviewed the patient's lab results. HPI <Geovany Valencia MD - Last Filed: 06/15/21 15:11> General Mode of arrival: EMS . Date/Time Provider Initiated Documentation: 06/15/21 11:54 . Limitations to Documentation: no limitations . Information obtained by: patient . History of Present Illness 86 year old M presents to the emergency department with the chief complaint of nausea and vomit, described as moderate, Quality is described as aching, Patient reports no radiation. Patient started experiencing this day(s) (6) and it has been intermittent. No relieving factors improve symptom(s), No exacerbating factors reported . Patient notes other (abdominal pain). Related Data Home Medications Medication Instructions Recorded Confirmed potassium chloride [Klor-Con M20] 20 meq PO DAILY AM #30 tabcr 07/18/15 06/12/21 mirtazapine [Remeron] 15 mg PO HS 03/04/16 06/12/21 levothyroxine 75 mcg PO DAILY@0600 tab 04/13/16 06/12/21 furosemide 40 mg PO DAILY 10/22/16 06/12/21 cholecalciferol (vitamin D3) 1 tab PO DAILY 08/01/17 06/12/21 bisacodyl 10 mg DE DAILY PRN 12/30/17 06/12/21 docusate sodium [Colace] 100 mg PO BID 11/30/18 06/12/21 sennosides [senna] 8.6 mg PO HS 11/30/18 06/12/21 ursodiol 250 mg PO BID 03/16/20 06/12/21 multivitamin [Tab-A-Raghu] 1 tab PO DAILY 05/12/20 06/12/21 Flovent HFA 2 puff INHALATION BID 09/04/20 06/12/21 Spiriva with HandiHaler 1 cap INHALATION DAILY 09/04/20 06/12/21 albuterol sulfate [Ventolin HFA] 2 puff INHALATION QID PRN PRN 09/04/20 06/12/21 latanoprost 1 drp OPHTHALMIC (EYE) HS 09/04/20 06/12/21 magnesium hydroxide 30 ml PO DAILY PRN 09/04/20 06/12/21 metoprolol tartrate 75 mg PO BID 09/04/20 06/12/21 pantoprazole 40 mg PO DAILY 09/04/20 06/12/21 ropinirole 2 mg PO QPM 09/06/20 06/12/21 Myrbetriq 50 mg PO DAILY #30 tab 09/13/20 06/12/21 Pradaxa 75 mg PO BID 11/05/20 06/12/21 acetaminophen [Tylenol] 650 mg PO Q6H PRN PRN 11/05/20 06/12/21 nitroglycerin 0.4 mg SUBLINGUAL PRN PRN 11/05/20 06/10/21 sucralfate [Carafate] 1 gm PO QACHS #14 tab 01/31/21 06/12/21 lidocaine 1 patch DAILY 03/04/21 06/12/21 Acidophilus-Pectin 1 cap PO TID 03/21/21 06/12/21 dorzolamide 1 drp OPHTHALMIC (EYE) QAM 03/21/21 06/12/21 fluticasone propionate 2 spray INTRANASAL BID 03/21/21 06/12/21 lactulose 20 g PO BID #1200 ml 03/23/21 06/12/21 ondansetron 4 mg PO QID PRN PRN #20 tab 03/23/21 06/12/21 polyethylene glycol 3350 17 g PO BID #30 ea 03/23/21 06/12/21 morphine concentrate 1 mg PO Q8H PRN PRN 06/01/21 06/12/21 clonazepam 0.5 mg tablet 0.5 mg PO BID #60 tab 06/10/21 06/12/21 fentanyl 12 mcg/hr transdermal 1 patch TRANSDERMAL Q72H #10 ea 06/10/21 06/12/21 patch MDD 12 mcg nitrofurantoin monohyd/m-cryst 100 mg PO Q12H 5 Days #10 cap 06/15/21 [Macrobid] Previous Rx's Medication Instructions Recorded potassium chloride [Klor-Con M20] 20 meq PO DAILY AM #30 tabcr 07/18/15 levothyroxine 75 mcg PO DAILY@0600 tab 04/13/16 Myrbetriq 50 mg PO DAILY #30 tab 09/13/20 sucralfate [Carafate] 1 gm PO QACHS #14 tab 01/31/21 lactulose 20 g PO BID #1200 ml 03/23/21 ondansetron 4 mg PO QID PRN PRN #20 tab 03/23/21 polyethylene glycol 3350 17 g PO BID #30 ea 03/23/21 clonazepam 0.5 mg tablet 0.5 mg PO BID #60 tab 06/10/21 fentanyl 12 mcg/hr transdermal 1 patch TRANSDERMAL Q72H #10 ea 06/10/21 patch MDD 12 mcg nitrofurantoin monohyd/m-cryst 100 mg PO Q12H 5 Days #10 cap 06/15/21 [Macrobid] Allergies Allergy/AdvReac Type Severity Reaction Status Date / Time banana Allergy Mild Skin Rash Unverified 06/12/21 04:17 formoterol fumarate AdvReac Intermediate Ineffective Unverified 06/12/21 04:17 [From Dulera] per Pt mometasone furoate AdvReac Intermediate Ineffective Unverified 06/12/21 04:17 [From Dulera] per Pt hydrocodone AdvReac Unknown Dizziness/L Unverified 06/12/21 04:17 ightheade General Stated Complaint: Abd Prob CINTIA: 3 Review of Systems <Geovany Valencia MD - Last Filed: 06/15/21 15:11> All systems reviewed & are unremarkable except as noted in HPI and below Constitutional Constitutional: Denies chills, Denies fever(s) and Denies weakness Cardiovascular Cardiovascular: Denies chest pain and Denies dyspnea Respiratory Respiratory: Denies cough and Denies dyspnea Musculoskeletal Musculoskeletal: Denies joint swelling Neurologic Neurologic: Denies weakness PFSH <Geovany Valencia MD - Last Filed: 06/15/21 15:11> All Active Problems (Updated 06/15/21 @ 15:08 by Geovany Valencia MD) Vomiting (Acute) Adrenal nodule (Chronic) History of cholecystectomy (Chronic) Goals of care, counseling/discussion (Acute) Bladder spasm (Acute) Air embolism (Acute) Walker as ambulation aid (Acute) Health care proxy on file (Chronic) Chronic dyspnea (Acute) Unintentional weight loss (Acute) Abdominal pain (Acute) All medications reviewed (Acute) Chronic GERD (Chronic) Chronic lower back pain (Acute) Chest pain (Acute) Epigastric abdominal pain (Acute) Chronic pain (Chronic) Suprapubic catheter (Chronic) Dysphagia (Acute) Lives alone with help available (Chronic) Encounter for monitoring diuretic therapy (Acute) Bilateral hydrocele (Acute) Inguinal hernia, right (Acute) Right inguinal pain (Acute) Hypothyroidism (Chronic) Shoulder strain (Acute) At high risk for falls (Acute) Bladder spasms (Acute) Pacemaker (Chronic 07/31/16) Palliative care patient (Chronic 11/25/16) Paroxysmal atrial fibrillation (Chronic 07/31/16) Phimosis (Acute 06/12/15) SOB (shortness of breath) on exertion (Acute 07/31/16) 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) Abdominal pain, acute, generalized (Acute) DVT prophylaxis (Acute) Chronic constipation (Chronic) UTI (urinary tract infection) (Acute) Generalized weakness (Acute) BPH (benign prostatic hyperplasia) (Chronic) COPD (chronic obstructive pulmonary disease) (Chronic) Anxiety disorder (Chronic) Hypertension (Chronic) Glaucoma (Chronic) History of kidney stones (Chronic) Atrial fibrillation (Chronic) Chronic anticoagulation (Chronic) Pacemaker (Chronic) History of adenomatous polyp of colon (Chronic) History of surgery (Chronic) Chronic atrial fibrillation (Chronic 05/24/14) 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) Diverticulosis of colon (Chronic) Thyroid nodule (Chronic) Umbilical hernia (Chronic) History of tobacco use (Chronic) Venous insufficiency (Chronic) Varicose veins (Chronic) Spinal stenosis (Chronic) Insomnia (Chronic) Atherosclerotic peripheral vascular disease (Chronic) GERD (gastroesophageal reflux disease) (Chronic) Chronic kidney disease (CKD) (Chronic) Diastolic heart failure (Chronic) Choledocholithiasis (Acute) Active Problem List Adrenal nodule (Chronic) History of cholecystectomy (Chronic) Goals of care, counseling/discussion (Acute) Bladder spasm (Acute) Air embolism (Acute) Walker as ambulation aid (Acute) Health care proxy on file (Chronic) Chronic dyspnea (Acute) Unintentional weight loss (Acute) Abdominal pain (Acute) All medications reviewed (Acute) Chronic GERD (Chronic) Chronic lower back pain (Acute) Chest pain (Acute) Epigastric abdominal pain (Acute) Chronic pain (Chronic) Suprapubic catheter (Chronic) Dysphagia (Acute) Lives alone with help available (Chronic) Encounter for monitoring diuretic therapy (Acute) Bilateral hydrocele (Acute) Inguinal hernia, right (Acute) Right inguinal pain (Acute) Hypothyroidism (Chronic) Shoulder strain (Acute) At high risk for falls (Acute) Bladder spasms (Acute) Pacemaker (Chronic 07/31/16) Palliative care patient (Chronic 11/25/16) Paroxysmal atrial fibrillation (Chronic 07/31/16) Phimosis (Acute 06/12/15) SOB (shortness of breath) on exertion (Acute 07/31/16) 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) Abdominal pain, acute, generalized (Acute) DVT prophylaxis (Acute) Chronic constipation (Chronic) UTI (urinary tract infection) (Acute) Generalized weakness (Acute) BPH (benign prostatic hyperplasia) (Chronic) COPD (chronic obstructive pulmonary disease) (Chronic) Anxiety disorder (Chronic) Hypertension (Chronic) Glaucoma (Chronic) History of kidney stones (Chronic) Atrial fibrillation (Chronic) Chronic anticoagulation (Chronic) Pacemaker (Chronic) History of adenomatous polyp of colon (Chronic) History of surgery (Chronic) Chronic atrial fibrillation (Chronic 05/24/14) 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) Diverticulosis of colon (Chronic) Thyroid nodule (Chronic) Umbilical hernia (Chronic) History of tobacco use (Chronic) Venous insufficiency (Chronic) Varicose veins (Chronic) Spinal stenosis (Chronic) Insomnia (Chronic) Atherosclerotic peripheral vascular disease (Chronic) GERD (gastroesophageal reflux disease) (Chronic) Chronic kidney disease (CKD) (Chronic) Diastolic heart failure (Chronic) Choledocholithiasis (Acute) Medical History Anemia associated with acute blood loss Anxiety Atrial fibrillation BPH (benign prostatic hyperplasia) Chronic obstructive lung disease Diverticulosis of large intestine without diverticulitis Essential hypertension Glaucoma Insomnia Polyp of colon Spinal stenosis of lumbar region Tachycardia-bradycardia Surgical History Colonoscopy - MAC Pacemaker S/P TURP Family History Niece No problems noted. Social History Smoking/Tobacco Use Status: Former Tobacco Use Smoking risk assessment performed?: Yes Alcohol Intake: former Drug use: Never Substance use type: does not use Caregiver/Support person: No Household members: none Housing: other Details: lives in basement of old farmhouse; afraid of going upstairs Number of Children: 0 Communication Needs: Hard of Hearing and Corrective Lenses Education Level: vocational Do you need help understanding health information?: Always current occupation: retired Pets and animals: No Current gender identity: male What is your relationship status?: never How often do you talk on the phone with friends or family?: three or more times per week How often do you get together with friends or relatives?: twice per week Panel score (0-1 are the most socially isolated patients): 1 What type of physical activity do you participate in: none and sedentary lifestyle Special debi needs: No Agree to transfusion: Yes Carbon monox detector in home: No Firearms in home: Yes Do you feel safe at home: Yes Do you feel safe in your relationship?: Yes Additional Social history: Brenden lives in the basement of an old delapidated farmhouse. He heats with wood but leaves his door open so he can breathe. Friend Casa lives about 100-200 yards away. He checks on Brenden regularly--chops, stacks and loads his wood for him. Brenden's closest living relative is his grandniece, Taisha Mnotes, who is a Home Health nurse. He is her grandmother's baby brother. No one else is alive in his generation. He never . No children. Has always lived on his own terms. Not going anywhere. Exam <Geovany Valencia MD - Last Filed: 06/15/21 15:11> Const General: no acute distress Orientation: alert HENMT Head: normal to inspection Ears: external ears normal General nose exam: external nose normal Mouth: moist mucous membranes Eyes General: appearance normal, both eyes and all related structures Neck Neck: normal visual inspection Resp Effort & Inspection: normal respiratory effort and able to speak in complete sentences Cardio Rate: regular rate GI Palpation: soft and tender Skin General skin exam: no rashes or lesions noted Neuro General: patient alert and patient oriented x3 Extrem General: normal to inspection Psych Mental Status: mental status grossly normal Course <Geovany Valencia MD - Last Filed: 06/15/21 15:11> Vital Signs Vital signs: Vital Signs Temperature 36.6 C 06/15/21 11:59 Pulse 94 H 06/15/21 11:59 Respiratory Rate 23 06/15/21 11:59 Blood Pressure 135/79 06/15/21 11:59 Pulse Oximetry 96 06/15/21 11:59 Temperature 36.6 C 06/15/21 11:59 Temperature Source Tympanic 06/15/21 11:59 Pulse 94 H 06/15/21 11:59 Respiratory Rate 23 06/15/21 11:59 Respiratory Effort 06/15/21 12:04 Blood Pressure 135/79 06/15/21 11:59 Blood Pressure Position Supine 06/15/21 11:59 Pulse Oximetry 96 06/15/21 11:59 Oxygen Delivery Method Room Air 06/15/21 11:59 Oxygen Flow Rate 0 06/15/21 11:59 Pain Level 8 06/15/21 11:59 Lab/Test Results Lab/Test Results: 06/15/21 12:09 Urine - Urostomy Urine Culture - Pending 06/15/21 11:57 Blood Blood Culture - Pending 06/15/21 11:57 Blood Blood Culture - Pending
[2021-06-15 12:22] LABS: Source Nasal/Nares
[2021-06-15 12:33] LABS: BE (Venous) 6 mmol/L (-2-3); HCO3 (Venous) 32 mmol/L (23-28); O2 Sat (Venous) 51 %; TCO2 (Venous) 29 mmol/L (24-29); pCO2 (Venous) 55 mmHg (41-51); pH (Venous) 7.37 (7.31-7.41); pO2 (Venous) 31 mmHg
[2021-06-15 12:34] LABS: Lactate 1.9 mmol/L (0.6-1.4)
[2021-06-15 12:35] LABS: Abs Immature Grans 0.02 10^3/uL (0.0-0.06); Absolute Basophil Count 0.04 10^3/uL (0.0-0.2); Absolute Eosinophil Count 0.09 10^3/uL (0.0-0.7); Absolute Lymphocyte Count 1.43 10^3/uL (1.2-3.4); Absolute Monocyte Count 0.67 10^3/uL (0.1-0.8); Absolute Neutrophil Count 3.47 10^3/uL (1.2-6.7); Basophils % 0.7; Eosinophils % 1.6; HCT 44.2 % (40.0-50.0); HGB 13.9 g/dL (13.5-17.5); Immature Grans % 0.3; MCH 29.5 pg (27.0-33.0); MCHC 31.4 % (32.0-36.0); MCV 93.8 fL (80-95); MPV 10.1 fL (8.0-11.0); Monocytes % 11.7; Neutrophils % 60.7; Nucleated RBC 0 %; Platelet Count 210 10^3/uL (130-400); RBC 4.71 10^6/uL (4.36-5.78); RDW 16.8 % (11.8-14.1); RDW-SD 58.2 fL; WBC 5.72 10^3/uL (4.4-10.8)
[2021-06-15 12:39] LABS: Bilirubin Negative (Negative); Blood Negative (Negative); Clarity Sl Cloudy (Clear); Glucose Negative (Negative); Ketones Negative (Negative); Leukocyte Esterase Small (Negative); Nitrite Positive (Negative); Specific Gravity >= 1.030 (1.005-1.025); Urobilinogen 0.2 EU/dL (Up TO 0.2); pH 5.5 (5-8)
[2021-06-15 12:45] LABS: Bacteria Moderate HPF (Negative); Crystals Few Amorphous HPF (Negative); Epithelial Cells Rare HPF (Negative); Mucus Trace (Negative); RBC 0-2 HPF (0-2)
[2021-06-15] MEDS: Prochlorperazine 10 MG/2 ML VIAL IVP (12:45)
[2021-06-15] MEDS: Normal Saline 50 ML ×2 (12:45→13:27)
[2021-06-15 12:46] LABS: C & S Indicated? C&S Done As Ordered; Casts 0-2 Coarse Granular LPF (Negative)
[2021-06-15 12:49] LABS: INR 1.3 (0.9-1.1); PTT Activated 32.8 sec (21.0-27.5); Prothrombin Time 13.2 sec (9.3-11.0)
[2021-06-15 12:51] LABS: ALT 19 U/L (16-63); AST 27 U/L (15-37); Albumin 3.6 g/dL (3.4-5.0); Alkaline Phosphatase 92 U/L (46-116); Anion Gap 5.9 mmol/L (3-11); BUN 32 mg/dL (7-18); Bilirubin, Direct 0.4 mg/dL (0.0-0.2); Bilirubin, Total 0.8 mg/dL (0.2-1.0); CO2 31.1 mmol/L (21.0-32.0); CREATININE 1.8 mg/dL (0.70-1.30); Calcium 9.6 mg/dL (8.5-10.1); Chloride 105 mmol/L (98-107); Estimated GFR 36.04 (mL/min/1.73m2); Glucose 95 mg/dL (74-106); Potassium 4.2 mmol/L (3.5-5.1); Sodium 142 mmol/L (136-145); Total Protein 7.3 g/dL (6.4-8.2)
[2021-06-15 12:54] LABS: Troponin I < 0.05 ng/mL (<0.06)
[2021-06-15 12:59] LABS: Creatine Kinase 64 U/L (39-308); Magnesium 2.5 mg/dL (1.8-2.4); NT-proBNP 4060 pg/mL (<300); TSH (W/Ref FT4) 5.21 uIU/mL (0.36-3.74)
[2021-06-15 13:08] LABS: COVID-19 PCR Negative (Negative)
[2021-06-15 13:17] LABS: FREE T4 1.47 ng/dL (0.76-1.46)
[2021-06-15] MEDS: Normal Saline Flush 10 ML SYR IVP (13:28)
--- NOTE | 2021-06-15 14:04 | DI.VRAD_ITS ---
PROCEDURE INFORMATION: Exam: CT Abdomen And Pelvis With Contrast Exam date and time: 06/15/2021 12:17 PM Age: 86 years old Clinical indication: Other: N/v, abdominal pain TECHNIQUE: Imaging protocol: Computed tomography of the abdomen and pelvis with contrast. Contrast material: OMNIPAQUE 350; Contrast volume: 100 ml; Contrast route: INTRAVENOUS (IV); COMPARISON: CT ABDOMEN PELVIS WO 03/16/2021 04:48 FINDINGS: Tubes, catheters and devices: Suprapubic bladder catheter is in place. Lungs: Visualized lung bases are clear. Pleural spaces: There is a small pleural effusion layered posteriorly on the right. Liver: Normal. No mass or intrahepatic biliary ductal dilatation. Gallbladder and bile ducts: Gallbladder is absent. Pancreas: Normal. No mass or ductal dilation. Spleen: Calcified granulomas are seen throughout the spleen. Adrenal glands: Normal. No mass. Kidneys and ureters: Normal. No hydronephrosis, calculus, cyst or mass. Stomach and bowel: There is extensive diverticular disease in the descending and sigmoid colon but without signs of acute inflammation. Appendix: No evidence of appendicitis. Intraperitoneal space: Unremarkable. No free air. No significant fluid collection. Vasculature: Aorta is heavily atherosclerotic but nonaneurysmal. Lymph nodes: No enlarged retroperitoneal or mesenteric lymph nodes. Urinary bladder: No mass or wall thickening. Reproductive: Unremarkable as visualized. Prostate gland is enlarged. Bones/joints: Unremarkable. No acute fracture. No lytic lesion. Extensive degenerative changes throughout the lumbar spine. Soft tissues: There is a small fat containing right inguinal hernia. IMPRESSION: Numerous chronic findings as above. The patient does have extensive diverticular disease of the descending and sigmoid colon but without definite signs of acute diverticulitis at this time. Dictated and Authenticated by: Hardy Calderon MD. Ordering:CROW Armenta MD
[2021-06-15] MEDS: MacroBID 100 MG CAP PO (14:12)
[2021-06-15 14:35] LABS: C Diff PCR Negative (Negative)
--- NOTE | 2021-06-16 10:50 | W.ED.FU ---
Patient positive for E. coli on urine culture, sensitive to Macrobid, prescribed yesterday
--- NOTE | 2021-06-16 15:07 | NUR.NOTE ---
called patient with his covid negative results
== END 2021-06-15 15:54 | disposition home or self-care (01) ==
PROVIDERS: Emergency Provider Emergency Medicine; PCP Family Medicine
DX: R11.2 Nausea with vomiting, unspecified (principal); R10.9 Unspecified abdominal pain; I50.30 Unspecified diastolic (congestive) heart failure; N39.0 Urinary tract infection, site not specified; B96.20 Unspecified Escherichia coli [E. coli] as the cause of diseases classified elsewhere; Z20.822 Contact with and (suspected) exposure to COVID-19; R10.10 Upper abdominal pain, unspecified
CPT/HCPCS: 36415; 80053; 82550; 82805; 87040; 87493; 87635; 96374; 99285; 74177; 81003; 81015; 82248; 83605; 83735; 83880; 84439; 84443; 84484; 85025; 85610; 85730; 87086; 99284; J0780

== ENCOUNTER 2021-07-02 17:53 | Emergency (ER) | payer MEDICARE, MEDICAID, SELFPAY ==
[2021-07-02 18:00] VITALS: BP 128/93; PULSE 75; RESP 16; TEMP 36.6; O2SAT 98
--- NOTE | 2021-07-02 18:30 | DI.RAD_ITS ---
Exam(s) XR FOOT LT COMPLETE EXAM: XR FOOT LT COMPLETE CLINICAL HISTORY: bilateral foot pain. TECHNIQUE: 2D digital imaging was performed. COMPARISON: CR,XR XR FOOT RT COMPLETE from 07/02/2021 FINDINGS: No evidence of acute fracture or diastasis of the Lisfranc joint. No pes planus. Small inferior tim caneal spur noted. No radiopaque foreign body. IMPRESSION: DATA REPOSITORY: RADIATION DOSE DELIVERED:
--- NOTE | 2021-07-02 18:30 | DI.RAD_ITS ---
Exam(s) XR FOOT RT COMPLETE EXAM: XR FOOT RT COMPLETE CLINICAL HISTORY: bilateral foot pain. TECHNIQUE: 2D digital imaging was performed. COMPARISON: CR,XR XR TOE LT THIRD from 09/07/2020 FINDINGS: No evidence of fracture or diastasis of the Lisfranc joint. Midfoot degenerative changes noted. No pes planus. No osseous lesions nor erosions. IMPRESSION: DATA REPOSITORY: RADIATION DOSE DELIVERED:
[2021-07-02] MEDS: clonazePAM 0.5 MG TAB PO (19:01)
[2021-07-02] MEDS: rOPINIRole 0.5 MG TAB 2 MG PO (19:01)
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
--- NOTE | 2021-07-02 20:37 | DI.VRAD_ITS ---
PROCEDURE INFORMATION: Exam: XR Right Foot Exam date and time: 07/02/2021 6:32 PM Age: 86 years old Clinical indication: Other: Pain TECHNIQUE: Imaging protocol: XR Right foot. Views: 3 or more views. Total images: 3 COMPARISON: CR RIGHT TIB/FIB 05/30/2015 10:34 AM FINDINGS: Bones/joints: No fractures. Mild osteoarthritic changes in the medial midfoot. No gross ankle joint effusion. Soft tissues: No soft tissue abnormalities. IMPRESSION: 1. No acute findings. 2. Mild osteoarthritic changes in the medial midfoot. Dictated and Authenticated by: Russel Londono MD. Ordering:SHERRY Dash MD
--- NOTE | 2021-07-02 20:41 | DI.VRAD_ITS ---
PROCEDURE INFORMATION: Exam: XR Left Foot Exam date and time: 07/02/2021 6:32 PM Age: 86 years old Clinical indication: Other: Pain TECHNIQUE: Imaging protocol: XR Left foot. Views: 3 or more views. Total images: 3 COMPARISON: CR XR TOE LT THIRD 09/07/2020 11:43 PM FINDINGS: Bones/joints: No fractures. Chronic articular flattening in the distal condyles of the 2nd and 3rd toe proximal phalanges unchanged from 09/07/2020. This could represent chronic changes of prior trauma, prior arthrodesis, or possibly AVN. Chronic hypertrophic changes in the lateral sesamoid at the 1st MTP joint unchanged. Mild plantar calcaneal spurring. Minimal spurring at the Achilles tendon attachment zone. No ankle joint effusion. Soft tissues: Normal. IMPRESSION: 1. No acute findings. 2. Chronic articular flattening in the distal condyles of the 2nd and 3rd toe proximal phalanges unchanged from 09/07/2020, please see differential considerations above. 3. Chronic hypertrophic changes in the lateral sesamoid at the 1st MTP joint. 4. Mild calcaneal spurring. Dictated and Authenticated by: Russel Londono MD. Ordering:SHERRY Dash MD
[2021-07-02 21:12] VITALS: BP 122/67; PULSE 68; RESP 16; TEMP 36.5; O2SAT 97
[2021-07-02] MEDS: Mirtazapine 15 MG TAB PO (21:58)
--- NOTE | 2021-07-02 22:24 | NUR.NOTE ---
pt has spoken on the phone to Ed , who also does not think it practical to try to get Brenden down all of those stairs and into his house tonight . Brenden became angry on the phone but did agree . he is now eating some soup and hopes to get a ride home in the morning after a plann is made to get him into the home Nursing Note:
--- NOTE | 2021-07-03 08:15 | NUR.NOTE ---
[facility] here to bring pt home. Telephoned Ed to tell him pt was on his way home..Nursing Note:
== END 2021-07-03 08:13 | disposition home or self-care (01) ==
PROVIDERS: Emergency Provider Student in an Organized Health Care Education/Training Program; PCP Family Medicine
DX: M19.072 Primary osteoarthritis, left ankle and foot (principal); M19.071 Primary osteoarthritis, right ankle and foot; M79.671 Pain in right foot; M79.672 Pain in left foot
CPT/HCPCS: 99283; 73630

== ENCOUNTER 2021-08-15 09:48 | Emergency (ER) | payer MEDICARE, MEDICAID, SELFPAY ==
[2021-08-15] VITALS (20 sets, daily range): BP systolic 94–129; BP diastolic 49–87; PULSE 62–133; RESP 13–26; TEMP 36.3; O2SAT 92–100
--- NOTE | 2021-08-15 10:00 | DI.RAD_ITS ---
Exam(s) XR CHEST 2V PA LATERAL EXAM: XR CHEST 2V PA LATERAL CLINICAL HISTORY: weakness, feet swelling TECHNIQUE: 2D digital imaging was performed of the chest. Three images were obtained. PA and later al views were obtained. COMPARISON: CR,XR XR CHEST 2V PA LATERAL from 04/16/2021 FINDINGS: MEDIASTINUM: Normal. HEART: Heart size is stable. Cardiac pacing wires are stable in position. PULMONARY VASCULATURE: Normal. LUNGS: Chronic parenchymal changes are seen in the lungs. No focal consolidating infiltrate. PLEURAL SPACE: No pleural effusion or pneumothorax. BONE:Within normal limits for the patient's age. OTHER FINDINGS:Pellets are again seen in the soft tissues around the neck and left shoulder. IMPRESSION: No acute pulmonary findings. DATA REPOSITORY: RADIATION DOSE DELIVERED:
--- NOTE | 2021-08-15 10:00 | RT.EKG_ITS ---
APPROVED REPORT Exam: Resting ECG Reason for Exam: weakness, feet swelling Patient Location: E HR:96 bpm ECG Measurements Heart Rate 96 AXIS ID [id number] P [id number] QRSd 84 QRS 8 QT 368 T 33 QTc 466 Conclusion Atrial fibrillation...V-rate 60-101, irreg A-activity
--- NOTE | 2021-08-15 10:07 | DI.US_ITS ---
Exam(s) US EXTREMITY VENOUS BI EXAM: US EXTREMITY VENOUS BI CLINICAL HISTORY: R > L swelling. TECHNIQUE: Bilateral lower extremity venous ultrasound performed using grayscale, color-flow, and sp ectral Doppler analysis. COMPARISON: US RIGHT EXTREMITY ULTRASOUND {[id number]} from 05/06/2015 FINDINGS: The bilateral common femoral, femoral and popliteal veins demonstrate normal compressibility, augment ation, and color Doppler. The posterior tibial veins are patent. The saphenofemoral junctions are unr emarkable. There is no evidence of a Salazar's cyst. The soft tissues are unremarkable. IMPRESSION: Right: Negative for DVT Left: Negative for DVT DATA REPOSITORY:
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
[2021-08-15] MEDS: ACETAMINOPHEN 1,000 MG/100 ML BTL 400 MG IVPB (10:25)
[2021-08-15 10:26] LABS: Abs Immature Grans 0.04 10^3/uL (0.0-0.06); Absolute Basophil Count 0.02 10^3/uL (0.0-0.2); Absolute Eosinophil Count 0.02 10^3/uL (0.0-0.7); Absolute Monocyte Count 0.69 10^3/uL (0.1-0.8); Basophils % 0.2; Eosinophils % 0.2; HCT 44.3 % (40.0-50.0); HGB 14.1 g/dL (13.5-17.5); Immature Grans % 0.4; Lymphocytes % 10.8; MCH 29.9 pg (27.0-33.0); MCHC 31.8 % (32.0-36.0); MCV 94.1 fL (80-95); MPV 9.8 fL (8.0-11.0); Monocytes % 6.8; Neutrophils % 81.6; Nucleated RBC 0 %; Platelet Count 205 10^3/uL (130-400); RBC 4.71 10^6/uL (4.36-5.78); RDW 16.4 % (11.8-14.1); RDW-SD 57.1 fL; WBC 10.17 10^3/uL (4.4-10.8)
[2021-08-15 10:45] LABS: ALT 19 U/L (16-63); AST 28 U/L (15-37); Albumin 3.5 g/dL (3.4-5.0); Alkaline Phosphatase 108 U/L (46-116); BUN 22 mg/dL (7-18); Bilirubin, Total 1.5 mg/dL (0.2-1.0); CREATININE 1.3 mg/dL (0.70-1.30); Calcium 9.6 mg/dL (8.5-10.1); Chloride 103 mmol/L (98-107); Estimated GFR 52.47 (mL/min/1.73m2); Glucose 103 mg/dL (74-106); NT-proBNP 3726 pg/mL (<300); Sodium 139 mmol/L (136-145); Total Protein 7.6 g/dL (6.4-8.2); Troponin I < 50 ng/L (<or=60)
--- NOTE | 2021-08-15 12:18 | NUR.NOTE ---
Nursing Note: Pt given lunch and is eating w/o difficulty.
== END 2021-08-15 13:33 | disposition home or self-care (01) ==
PROVIDERS: Emergency Provider Emergency Medicine; PCP Family Medicine
DX: L03.115 Cellulitis of right lower limb (principal); R53.1 Weakness; R60.0 Localized edema; R06.02 Shortness of breath; M79.604 Pain in right leg
CPT/HCPCS: 80053; 93005; 96365; 99284; 71046; 83735; 83880; 84484; 85025; 93010; 93970; J0131

== ENCOUNTER 2021-08-17 13:50 | Emergency (ER) | payer MEDICARE, MEDICAID, SELFPAY ==
[2021-08-17 13:52] VITALS: BP 124/62; PULSE 88; RESP 18; TEMP 36.4; O2SAT 95
[2021-08-17 15:03] LABS: Bilirubin Negative (Negative); Blood Trace-intact (Negative); Clarity Clear (Clear); Glucose Negative (Negative); Ketones Negative (Negative); Leukocyte Esterase Trace (Negative); Nitrite Negative (Negative); Specific Gravity 1.015 (1.005-1.025); Urobilinogen 0.2 EU/dL (Up TO 0.2)
[2021-08-17 15:14] LABS: Bacteria Negative HPF (Negative); C & S Indicated? Yes; Crystals Negative HPF (Negative); Epithelial Cells Negative HPF (Negative); Mucus Negative (Negative); WBC 0-2 HPF (0-5)
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
[2021-08-17] MEDS: Acetaminophen 500 MG TAB 1000 MG PO (15:31)
[2021-08-17 15:32] LABS: Abs Immature Grans 0.03 10^3/uL (0.0-0.06); Absolute Basophil Count 0.03 10^3/uL (0.0-0.2); Absolute Eosinophil Count 0.14 10^3/uL (0.0-0.7); Absolute Lymphocyte Count 1.29 10^3/uL (1.2-3.4); Absolute Monocyte Count 0.58 10^3/uL (0.1-0.8); Absolute Neutrophil Count 4.34 10^3/uL (1.2-6.7); Basophils % 0.5; Eosinophils % 2.2; HCT 45.2 % (40.0-50.0); HGB 14.2 g/dL (13.5-17.5); Immature Grans % 0.5; Lymphocytes % 20.1; MCH 29.7 pg (27.0-33.0); MCHC 31.4 % (32.0-36.0); MCV 94.6 fL (80-95); Neutrophils % 67.7; Nucleated RBC 0 %; Platelet Count 201 10^3/uL (130-400); RBC 4.78 10^6/uL (4.36-5.78); RDW 16.2 % (11.8-14.1); WBC 6.41 10^3/uL (4.4-10.8)
[2021-08-17 15:46] LABS: ALT 19 U/L (16-63); AST 24 U/L (15-37); Albumin 3.4 g/dL (3.4-5.0); Alkaline Phosphatase 105 U/L (46-116); Anion Gap 6.9 mmol/L (3-11); BUN 20 mg/dL (7-18); Bilirubin, Total 1.2 mg/dL (0.2-1.0); CO2 29.1 mmol/L (21.0-32.0); CREATININE 1.3 mg/dL (0.70-1.30); Calcium 9.2 mg/dL (8.5-10.1); Chloride 104 mmol/L (98-107); Estimated GFR 52.47 (mL/min/1.73m2); Glucose 89 mg/dL (74-106); Potassium 3.7 mmol/L (3.5-5.1); Sodium 140 mmol/L (136-145); Total Protein 7.8 g/dL (6.4-8.2)
[2021-08-17 16:40] VITALS: BP 121/53; PULSE 74; RESP 16; TEMP 36.6; O2SAT 97
== END 2021-08-17 16:53 | disposition home or self-care (01) ==
PROVIDERS: Emergency Provider Physician Assistant; PCP Family Medicine
DX: R10.9 Unspecified abdominal pain (principal); G89.29 Other chronic pain; Z96.0 Presence of urogenital implants
CPT/HCPCS: 36415; 80053; 99283; 81003; 81015; 85025; 87086

== ENCOUNTER 2021-11-25 13:17 | Emergency (ER) | payer MEDICARE, MEDICAID, SELFPAY ==
[2021-11-25 13:19] VITALS: BP 132/78; PULSE 62; RESP 20; TEMP 36.8; O2SAT 92
--- NOTE | 2021-11-25 13:30 | DI.RAD_ITS ---
Exam(s) XR RIBS LT W PA LAT CHEST EXAM: XR RIBS LT W PA LAT CHEST CLINICAL HISTORY: left lower rib pain TECHNIQUE: COMPARISON: CT CT ABDOMEN PELVIS W from 06/15/2021 CR XR CHEST 2V PA LATERAL from 08/15/2021 FINDINGS: PA and lateral chest and 4 additional views of the ribs were obtained. There is a mild pectus excava migdalia deformity. Cardiac size is within normal limits. There is a transvenous cardiac pacemaker in [facility]. The lungs are generally clear. There is probable small right pleural effusion. There may b e a small left pleural effusion as well. No definite rib fracture seen. No pneumothorax identified. IMPRESSION: Small right pleural effusion, possible left pleural effusion. No pneumothorax or rib fracture identi fied. RADIATION DOSE DELIVERED: Total DLP
[2021-11-25] MEDS: Lidocaine 5% Patch 1 PATCH TP (14:33)
[2021-11-25 14:37] LABS: Abs Immature Grans 0.04 10^3/uL (0.0-0.06); Absolute Basophil Count 0.02 10^3/uL (0.0-0.2); Absolute Eosinophil Count 0.08 10^3/uL (0.0-0.7); Absolute Lymphocyte Count 1.13 10^3/uL (1.2-3.4); Absolute Monocyte Count 0.59 10^3/uL (0.1-0.8); Absolute Neutrophil Count 5.57 10^3/uL (1.2-6.7); Basophils % 0.3; Eosinophils % 1.1; HCT 41.2 % (40.0-50.0); HGB 13.1 g/dL (13.5-17.5); Immature Grans % 0.5; Lymphocytes % 15.2; MCH 30.5 pg (27.0-33.0); MCHC 31.8 % (32.0-36.0); MCV 96 fL (80-95); MPV 9.9 fL (8.0-11.0); Monocytes % 7.9; Platelet Count 181 10^3/uL (130-400); RDW 15.9 % (11.8-14.1); RDW-SD 55.2 fL; WBC 7.43 10^3/uL (4.4-10.8)
[2021-11-25 14:55] LABS: ALT 20 U/L (16-63); AST 20 U/L (15-37); Albumin 3.1 g/dL (3.4-5.0); Alkaline Phosphatase 131 U/L (46-116); Anion Gap 4.4 mmol/L (3-11); BUN 24 mg/dL (7-18); Bilirubin, Total 0.9 mg/dL (0.2-1.0); CO2 30.6 mmol/L (21.0-32.0); CREATININE 1.4 mg/dL (0.70-1.30); Calcium 8.8 mg/dL (8.5-10.1); Chloride 106 mmol/L (98-107); Estimated GFR 48.16 (mL/min/1.73m2); Glucose 109 mg/dL (74-106); Sodium 141 mmol/L (136-145); Total Protein 6.8 g/dL (6.4-8.2)
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
[2021-11-25 15:22] LABS: COVID-19 PCR Negative (Negative); Influenza A PCR Negative (Negative); Influenza B PCR Negative (Negative); RSV PCR Negative (Negative)
[2021-11-25 15:23] LABS: Source Nasopharynx
[2021-11-25 16:05] VITALS: PULSE 82; RESP 16; O2SAT 97
== END 2021-11-25 16:48 | disposition home or self-care (01) ==
PROVIDERS: Emergency Provider Nurse Practitioner Family; PCP Family Medicine
DX: M94.0 Chondrocostal junction syndrome [Tietze] (principal); J44.9 Chronic obstructive pulmonary disease, unspecified; G89.29 Other chronic pain; R07.89 Other chest pain
CPT/HCPCS: 36415; 80053; 87637; 99283; 71046; 71100; 85025

== ENCOUNTER 2021-12-15 04:49 | Inpatient (IN) | payer MEDICARE, MEDICAID, SELFPAY ==
[2021-12-15] VITALS (42 sets, daily range): BP systolic 126–152; BP diastolic 53–81; PULSE 61–112; RESP 11–33; TEMP 36.1–36.8; O2SAT 78–100
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
--- NOTE | 2021-12-15 08:51 | W.EDPROG ---
Date of service: 12/15/21 Time of Service: 07:30 Medical Decision Making Patient signed out to me at time of shift change by Dr. Dewitt with Ortho consultation pending. I discussed patient presentation with Dr. Jin of orthopedic surgery, who states that for proximal bicep tendon rupture recommendations for sling, outpatient follow-up, no acute intervention at this time. On reassessment of patient, he is attempting to eat breakfast and reporting nausea and abdominal pain. Patient reports that he has had minimal p.o. intake over the past week because whenever he tries to eat he feels quite nauseous and has upper abdominal pain. Patient reports that he has occasionally been able to eat breakfast without vomiting, but vomits all other meals. He denies any other pain (other than arm pain), fever, cough, shortness of breath, diarrhea, constipation, rash. No concern for pancreatitis, SBO, gastritis, electrolyte/metabolic derangement, dehydration, other. Doubt acute coronary syndrome. Exam/history at this time is not consistent with acute aortic pathology, pulmonary embolism, sepsis. Plan for screening labs, CT abdomen/pelvis, IV placement, IV fluid hydration, IV Zofran, IV morphine, EKG. CT abdomen/pelvis negative for acute process, labs reviewed, nondiagnostic. UA shows nitrates. Patient has been admitted for UTI in the past with resistant E. coli. Plan for meropenem, admission. Medical Records Medical records reviewed: Yes I reviewed the patient's medical records. Imaging Data Radiologic Study: Attestation: I personally reviewed and interpreted this imaging study as follows: Radiologist's impression: EXAM:? CT ABDOMEN ? PELVIS WO CLINICAL HISTORY: ? abdominal pain, vomiting.? TECHNIQUE:? Imaging Protocol: Axial computed tomography images with coronal and sagittal reformatted images were created and reviewed. Oral:? no COMPARISON:? CT CT ABDOMEN ? PELVIS W from 06/15/2021 CR XR CHEST 2V PA ? LATERAL from 08/15/2021 CR XR RIBS LT W PA ? LAT CHEST from 11/25/2021 FINDINGS: There is a small right pleural effusion and mild bibasilar atelectasis.? No focal infiltrate.? Heart is enlarged.? A pacemaker is noted.? The patient is status post cholecystectomy.? Pancreas is mildly atrophic.? The kidneys, spleen and adrenals are unremarkable.? The stomach and small bowel are unremarkable.? The appendix is normal.? Diverticulosis is noted which is severe in the lower descending and sigmoid region.? No evidence diverticulitis.? The prostate is markedly enlarged.? A suprapubic bladder catheter is noted.? The bladder is decompressed.? Are atherosclerotic changes in the aorta but no evidence of an aneurysm.? Degenerative changes in and scoliosis in the lumbar spine.? No compression fractures. IMPRESSION: Small right pleural effusion. Severe diverticulosis without evidence of diverticulitis.? Markedly enlarged prostate.? Suprapubic bladder catheter.? No acute abnormality. Results of this exam have been verbally communicated with the emergency department provider. Lab Data Lab results reviewed: Yes I reviewed the patient's lab results. Labs: 12/15/21 12:38 Urine - Reflex from Ua Urine Culture - Pending Laboratory Tests Range/Units 12/15/21 12/15/21 12/15/21 10:00 10:00 10:00 WBC (4.4-10.8) 10^3/uL 5.88 RBC (4.36-5.78) 10^6/uL 4.44 Hgb (13.5-17.5) g/dL 13.4 L Hct (40.0-50.0) % 41.6 MCV (80-95) fL 94 MCH (27.0-33.0) pg 30.2 MCHC (32.0-36.0) % 32.2 RDW (11.8-14.1) % 15.5 H Plt Count (130-400) 10^3/uL 250 MPV (8.0-11.0) fL 10.1 Immature Gran % 0.3 Neutrophils % 66.2 Lymphocytes % 23.8 Monocytes % 8.5 Eosinophils % 0.5 Basophils % 0.7 Nucleated RBC % (0.0-0.3) % 0.0 Absolute Neutrophils (1.2-6.7) 10^3/uL 3.89 Absolute Lymphocytes (1.2-3.4) 10^3/uL 1.40 Absolute Monocytes (0.1-0.8) 10^3/uL 0.50 Absolute Eosinophils (0.0-0.7) 10^3/uL 0.03 Absolute Basophils (0.0-0.2) 10^3/uL 0.04 Sodium (136-145) mmol/L 141 Potassium (3.5-5.1) mmol/L 4.4 Chloride (98-107) mmol/L 104 Carbon Dioxide (21.0-32.0) mmol/L 29.5 Anion Gap (3-11) mmol/L 7.5 BUN (7-18) mg/dL 20 H Creatinine (0.70-1.30) mg/dL 1.4 H Estimated GFR/1.73 m2 (mL/min/1.73m2) 48.16 Glucose (74-106) mg/dL 111 H Calcium (8.5-10.1) mg/dL 9.3 Magnesium (1.8-2.4) mg/dL 2.1 Total Bilirubin (0.2-1.0) mg/dL 1.3 H AST (15-37) U/L 34 ALT (16-63) U/L 15 L Alkaline Phosphatase (46-116) U/L 115 Troponin I (<or=60) ng/L Total Protein (6.4-8.2) g/dL 7.5 Albumin (3.4-5.0) g/dL 3.5 Lipase (73-393) U/L 30 Urine Color (Yellow) Urine Clarity (Clear) Urine pH (5-8) Ur Specific [place] (1.005-1.025) Urine Protein (Negative) mg/dL Urine Ketones (Negative) mg/dL Urine Blood (Negative) Urine Nitrite (Negative) Urine Bilirubin (Negative) Urine Urobilinogen (Up TO 0.2) EU/dL Ur Leukocyte Esterase (Negative) Urine RBC (0-2) HPF Urine WBC (0-5) HPF Ur Epithelial Cells (Negative) HPF Urine Crystals (Negative) HPF Urine Bacteria (Negative) HPF Urine Casts (Negative) LPF Urine Mucus (Negative) Ur Culture Indicated? Urine Glucose (Negative) mg/dL COVID-19 Source SARS-CoV-2 (PCR) (Negative) Range/Units 12/15/21 12/15/21 12/15/21 10:00 12:38 13:22 WBC (4.4-10.8) 10^3/uL RBC (4.36-5.78) 10^6/uL Hgb (13.5-17.5) g/dL Hct (40.0-50.0) % MCV (80-95) fL MCH (27.0-33.0) pg MCHC (32.0-36.0) % RDW (11.8-14.1) % Plt Count (130-400) 10^3/uL MPV (8.0-11.0) fL Immature Gran % Neutrophils % Lymphocytes % Monocytes % Eosinophils % Basophils % Nucleated RBC % (0.0-0.3) % Absolute Neutrophils (1.2-6.7) 10^3/uL Absolute Lymphocytes (1.2-3.4) 10^3/uL Absolute Monocytes (0.1-0.8) 10^3/uL Absolute Eosinophils (0.0-0.7) 10^3/uL Absolute Basophils (0.0-0.2) 10^3/uL Sodium (136-145) mmol/L Potassium (3.5-5.1) mmol/L Chloride (98-107) mmol/L Carbon Dioxide (21.0-32.0) mmol/L Anion Gap (3-11) mmol/L BUN (7-18) mg/dL Creatinine (0.70-1.30) mg/dL Estimated GFR/1.73 m2 (mL/min/1.73m2) Glucose (74-106) mg/dL Calcium (8.5-10.1) mg/dL Magnesium (1.8-2.4) mg/dL Total Bilirubin (0.2-1.0) mg/dL AST (15-37) U/L ALT (16-63) U/L Alkaline Phosphatase (46-116) U/L Troponin I (<or=60) ng/L < 50 Total Protein (6.4-8.2) g/dL Albumin (3.4-5.0) g/dL Lipase (73-393) U/L Urine Color (Yellow) Yellow Urine Clarity (Clear) Clear Urine pH (5-8) 5.5 Ur Specific [place] (1.005-1.025) 1.015 Urine Protein (Negative) mg/dL Negative Urine Ketones (Negative) mg/dL Negative Urine Blood (Negative) Negative Urine Nitrite (Negative) Positive H Urine Bilirubin (Negative) Negative Urine Urobilinogen (Up TO 0.2) EU/dL 0.2 Ur Leukocyte Esterase (Negative) Small H Urine RBC (0-2) HPF Negative Urine WBC (0-5) HPF 5-10 Ur Epithelial Cells (Negative) HPF Rare Urine Crystals (Negative) HPF Negative Urine Bacteria (Negative) HPF Moderate Urine Casts (Negative) LPF Negative Urine Mucus (Negative) Negative Ur Culture Indicated? Yes Urine Glucose (Negative) mg/dL Negative COVID-19 Source Nasal/Nares SARS-CoV-2 (PCR) (Negative) Negative ECG Data Attestation: I personally reviewed and interpreted this ECG (s) as follows: Interpretation: EKG shows atrial fibrillation at 92, occasional PVC, normal axis, no STEMI, nondiagnostic EKG Sign Out Sign Out Data: Sign Out Comment: Probable right bicep tendon rupture pending imaging and/or orthopedic consult. Last updated by Danie Dewitt MD at 12/15/21 08:20 Discharge Plan Disposition Patient Disposition: [facility] INPATIENT Condition: Stable Discharge Details Clinical Impression: Acute UTI, Injury of right upper arm, Vomiting Admit Date/Time: 12/15/21 13:34 Admit Provider: Cristobal Raya Attending Provider: Cristobal Raya Primary Care Provider: Lorena Chong ED Provider: Jeannine Morejon Discharge Data Discharge Date/Time-TO BE ENTERED AT DEPARTURE: 12/15/21 14:51
--- NOTE | 2021-12-15 09:30 | RT.EKG_ITS ---
APPROVED REPORT Exam: Resting ECG Reason for Exam: abdominal pain Patient Location: E HR:92 bpm ECG Measurements Heart Rate 92 AXIS [place] [id number] P [id number] QRSd 90 QRS 25 QT 391 T 40 QTc 485 Conclusion Afib/flut and V-paced complexes...other complexes, A-rate>240 atrial fibrillation at 92, occasional PVC, normal axis, no STEMI, nondiagnostic EKG
[2021-12-15 10:12] LABS: Abs Immature Grans 0.02 10^3/uL (0.0-0.06); Absolute Basophil Count 0.04 10^3/uL (0.0-0.2); Absolute Eosinophil Count 0.03 10^3/uL (0.0-0.7); Absolute Neutrophil Count 3.89 10^3/uL (1.2-6.7); Basophils % 0.7; Eosinophils % 0.5; HCT 41.6 % (40.0-50.0); HGB 13.4 g/dL (13.5-17.5); Immature Grans % 0.3; Lymphocytes % 23.8; MCH 30.2 pg (27.0-33.0); MCHC 32.2 % (32.0-36.0); MCV 94 fL (80-95); MPV 10.1 fL (8.0-11.0); Monocytes % 8.5; Neutrophils % 66.2; Platelet Count 250 10^3/uL (130-400); RBC 4.44 10^6/uL (4.36-5.78); RDW 15.5 % (11.8-14.1); RDW-SD 53.2 fL; WBC 5.88 10^3/uL (4.4-10.8)
[2021-12-15] MEDS: Ondansetron 4 MG/2 ML VIAL (10:14)
[2021-12-15 10:26] LABS: Magnesium 2.1 mg/dL (1.8-2.4)
[2021-12-15 10:30] LABS: ALT 15 U/L (16-63); AST 34 U/L (15-37); Albumin 3.5 g/dL (3.4-5.0); Alkaline Phosphatase 115 U/L (46-116); Anion Gap 7.5 mmol/L (3-11); BUN 20 mg/dL (7-18); Bilirubin, Total 1.3 mg/dL (0.2-1.0); CO2 29.5 mmol/L (21.0-32.0); CREATININE 1.4 mg/dL (0.70-1.30); Calcium 9.3 mg/dL (8.5-10.1); Chloride 104 mmol/L (98-107); Estimated GFR 48.16 (mL/min/1.73m2); Glucose 111 mg/dL (74-106); Lipase 30 U/L (73-393); Potassium 4.4 mmol/L (3.5-5.1); Sodium 141 mmol/L (136-145); Total Protein 7.5 g/dL (6.4-8.2)
--- NOTE | 2021-12-15 10:40 | DI.CT_ITS ---
Exam(s) CT ABDOMEN PELVIS WO EXAM: CT ABDOMEN PELVIS WO CLINICAL HISTORY: abdominal pain, vomiting. TECHNIQUE: Imaging Protocol: Axial computed tomography images with coronal and sagittal reformatted images were created and reviewed. Oral: no COMPARISON: CT CT ABDOMEN PELVIS W from 06/15/2021 CR XR CHEST 2V PA LATERAL from 08/15/2021 CR XR RIBS LT W PA LAT CHEST from 11/25/2021 FINDINGS: There is a small right pleural effusion and mild bibasilar atelectasis. No focal infiltrate. Heart is enlarged. A pacemaker is noted. The patient is status post cholecystectomy. Pancreas is mildly atrophic. The kidneys, spleen and adrenals are unremarkable. The stomach and small bowel are unrema rkable. The appendix is normal. Diverticulosis is noted which is severe in the lower descending and sigmoid region. No evidence diverticulitis. The prostate is markedly enlarged. A suprapubic bladd er catheter is noted. The bladder is decompressed. Are atherosclerotic changes in the aorta but no evidence of an aneurysm. Degenerative changes in and scoliosis in the lumbar spine. No compression fractures. IMPRESSION: Small right pleural effusion. Severe diverticulosis without evidence of diverticulitis. Markedly enlarged prostate. Suprapubic bl adder catheter. No acute abnormality. Results of this exam have been verbally communicated with the emergency department provider. RADIATION DOSE DELIVERED: 893.24mGy.cm Total DLP DATA REPOSITORY: All CT scans at this facility are submitted to the National Radiology Data Registry (NRDR) Dose Index Registry (DIR) with the [employer] (A[employer]). RADIATION OPTIMIZATION: All CT scans at this facility use at least one of these dose optimization te chniques: automated exposure control; mA and/or kV adjustment per patient size (includes targeted exa ms where dose is matched to clinical indication); or iterative reconstruction.
[2021-12-15 11:27] LABS: Troponin I < 50 ng/L (<or=60)
[2021-12-15 12:56] LABS: Bilirubin Negative (Negative); Blood Negative (Negative); Clarity Clear (Clear); Glucose Negative (Negative); Ketones Negative (Negative); Leukocyte Esterase Small (Negative); Nitrite Positive (Negative); Specific Gravity 1.015 (1.005-1.025); Urobilinogen 0.2 EU/dL (Up TO 0.2); pH 5.5 (5-8)
[2021-12-15 13:03] LABS: Bacteria Moderate HPF (Negative); C & S Indicated? Yes; Casts Negative LPF (Negative); Crystals Negative HPF (Negative); Epithelial Cells Rare HPF (Negative); Mucus Negative (Negative); RBC Negative HPF (0-2)
[2021-12-15] MEDS: Normal Saline 500 ML IV (13:15)
[2021-12-15] MEDS: MORPHine 10 MG/ML VIAL 2 MG IVP (13:17)
[2021-12-15] MEDS: Ondansetron 4 MG/2 ML VIAL IVP (13:17)
[2021-12-15 13:25] LABS: Source Nasal/Nares
[2021-12-15] MEDS: MEROPENEM 1 GM in Normal Saline 100 ML IVPB ×2 (13:33→21:03)
[2021-12-15] MEDS: Pantoprazole 40 MG VIAL IVP (13:50)
[2021-12-15 14:15] LABS: COVID-19 PCR Negative (Negative)
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
[2021-12-15] MEDS: fentaNYL 12 MCG PATCH TD (17:59)
[2021-12-15] MEDS: MORPHine Oral Concentrate 20 MG/ML 10 MG PO ×2 (18:13→23:40)
[2021-12-15] MEDS: clonazePAM 0.5 MG TAB PO (20:03)
[2021-12-15] MEDS: Normal Saline Flush 10 ML SYR IVP ×2 (20:03→21:04)
[2021-12-15] MEDS: Docusate Sodium 100 MG CAP PO (20:03)
[2021-12-15] MEDS: Metoprolol 50 MG TAB PO (20:03)
[2021-12-15] MEDS: Lactulose 20 GM/30 ML CUP PO (20:03)
[2021-12-16] MEDS: Levothyroxine 75 MCG TAB PO (05:49)
[2021-12-16] MEDS: MEROPENEM 1 GM in Normal Saline 100 ML IVPB ×3 (05:49→21:56)
[2021-12-16 06:56] LABS: Abs Immature Grans 0.02 10^3/uL (0.0-0.06); Absolute Basophil Count 0.04 10^3/uL (0.0-0.2); Absolute Eosinophil Count 0.08 10^3/uL (0.0-0.7); Absolute Lymphocyte Count 1.13 10^3/uL (1.2-3.4); Absolute Monocyte Count 0.57 10^3/uL (0.1-0.8); Absolute Neutrophil Count 2.65 10^3/uL (1.2-6.7); Basophils % 0.9; Eosinophils % 1.8; HGB 12.9 g/dL (13.5-17.5); Immature Grans % 0.4; Lymphocytes % 25.2; MCHC 32.3 % (32.0-36.0); MCV 93 fL (80-95); MPV 10.1 fL (8.0-11.0); Monocytes % 12.7; Platelet Count 205 10^3/uL (130-400); RDW 15.9 % (11.8-14.1); RDW-SD 53.8 fL; WBC 4.49 10^3/uL (4.4-10.8)
[2021-12-16 07:00] VITALS: BP 157/75; PULSE 78; RESP 17; TEMP 36.9; O2SAT 99
[2021-12-16 07:10] LABS: Anion Gap 6.5 mmol/L (3-11); BUN 16 mg/dL (7-18); CO2 29.5 mmol/L (21.0-32.0); CREATININE 1.4 mg/dL (0.70-1.30); Calcium 8.7 mg/dL (8.5-10.1); Chloride 106 mmol/L (98-107); Estimated GFR 48.16 (mL/min/1.73m2); Glucose 100 mg/dL (74-106); Potassium 3.7 mmol/L (3.5-5.1); Sodium 142 mmol/L (136-145)
[2021-12-16] MEDS: Lidocaine 5% Patch 1 PATCH TD (08:11)
[2021-12-16] MEDS: Lactulose 20 GM/30 ML CUP PO (08:12)
[2021-12-16] MEDS: Mirabegron 50 MG TABCR PO (08:12)
[2021-12-16] MEDS: Normal Saline Flush 10 ML SYR IVP ×2 (08:12→21:58)
[2021-12-16] MEDS: Pantoprazole 40 MG VIAL IVP (08:12)
[2021-12-16] MEDS: Docusate Sodium 100 MG CAP PO (08:12)
[2021-12-16] MEDS: Furosemide 20 MG TAB 40 MG PO (08:13)
[2021-12-16] MEDS: Potassium Chloride 20 MEQ TABCR PO (08:13)
[2021-12-16] MEDS: clonazePAM 0.5 MG TAB PO ×2 (08:13→20:20)
[2021-12-16] MEDS: Metoprolol 50 MG TAB PO ×2 (08:13→20:20)
[2021-12-16] MEDS: Senna TAB 2 TAB PO (08:13)
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
[2021-12-16] MEDS: Ondansetron O.D.T. 4 MG TABEF PO ×2 (08:23→15:10)
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
--- NOTE | 2021-12-16 11:07 | NUR.NOTE ---
Nursing Note: patient has 12mcg fentanyl patch on left upper arm, placed 12/15/21
[2021-12-16] MEDS: Mometasone 220 MCG 14 DOSE INHALER 2 PUFF IH ×2 (11:21→20:20)
[2021-12-16] MEDS: Tiotropium Bromide-Respimat 10 PUFF INH IH (11:21)
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
[2021-12-16 14:45] VITALS: BP 161/75; PULSE 73; RESP 17; TEMP 35.5; O2SAT 98
--- NOTE | 2021-12-16 16:46 | PT.INTREAT ---
Date of service: 12/16/21 Time of Service: 16:11 PT Notes Visit Reasons: UTI,Vomiting Inpatient Physical Therapy Treatment Note [facility] Date: 12/16/2021 PRECAUTIONS: Activity as tolerated, Fall SUBJECTIVE: Bill agreeable to participating in PT. He reports that he was sleeping prior to my arrival. He states that he is still having pain in his R arm. OBJECTIVE: Patient requires adjustment of sling on R UE for proper fit t/o session PAIN: Patient c/o pain in R UE with AAROM activities BED MOBILITY/TRANSFERS Sit-stand: SBA Stand-sit: SBA GAIT Assistive Device: SPC Weight bearing: Full Assist: CGA Distance: 300' Deviation: LOB x3 with Min A for recovery, standing rests t/o due to SOB THEREX: With patient in seated position, perform AAROM to R shoulder into flexion/extension, IR/ER, and abduction/adduction. Patient c/o pain in R UE with shoulder flexion. ASSESSMENT: Patient tolerated session with complaint of R UE pain with AAROM into flexion, as well as of SOB with gait training. PLAN: Continue with global strenghtening and general conditioning for improved mobility. TREATMENT CODE/TIME: 23 minutes; 99248 x2 (16:11)
--- NOTE | 2021-12-16 17:28 | W.PM.PROGNOT ---
Date of Service Date of service: 12/16/21 Time of Service: 17:28 Assessment and Plan Assessment and plan (1) Acute UTI: Status: Acute Assessment and plan: based on old cultures that grew esbl e coli, continue meropenem day 2 urine spec contaminated - suprapubic cath changed new spec collected. (2) Vomiting: Status: Acute Assessment and plan: advance diet as tolerated ondansetron prn (3) Opioid dependence in controlled environment: Status: Chronic Assessment and plan: continue home regimen bowel management (4) Hypothyroidism: Status: Chronic Assessment and plan: continue home meds Qualifiers: Hypothyroidism type: unspecified Qualified Code(s): E03.9 - Hypothyroidism, unspecified (5) COPD (chronic obstructive pulmonary disease): Status: Chronic Assessment and plan: stable, continue home meds Qualifiers: COPD type: unspecified COPD Qualified Code(s): J44.9 - Chronic obstructive pulmonary disease, unspecified (6) DVT prophylaxis: Status: Acute Assessment and plan: teds, on pradaxa (7) Injury of right upper arm: Status: Acute Assessment and plan: biceps tendon rupture orthopedics consulted sling ice pain management will follow with them outpatient PT/OT consulted discussed with Dr Raya Subjective Subjective Patient reports: no new complaints Interval history since last seen: Continues to have nausea, no vomiting Exam Const General: cooperative, comfortable, frail appearing and ill appearing (older than stated age) chronically Nutritional Appearance: thin Orientation: alert, awake and oriented x3 HENMT Head: normal to inspection, normocephalic and atraumatic Mouth: oral mucosae normal Chest Chest: normal inspection of the chest Resp Effort & Inspection: normal respiratory effort Cardio Rate: regular rate Rhythm: regular rhythm GI Inspection: other (suprapubic intact) Palpation: soft Extrem Right upper extremity: edema (ecchymosis and bulge above ac space consistent with bicep rupture) and shoulder/upper arm (sling intact, good pulse and sensation distally) Objective Last Vital Signs Temp 35.5 C L 12/16/21 14:45 Pulse 73 12/16/21 14:45 Resp 17 12/16/21 14:45 BP 161/75 H 12/16/21 14:45 Pulse Ox 98 12/16/21 14:45 Laboratory Results - last 24 hr 12/16/21 12/16/21 06:32 06:32 WBC 4.49 RBC 4.30 L Hgb 12.9 L Hct 40.0 MCV 93 MCH 30.0 MCHC 32.3 RDW 15.9 H Plt Count 205 MPV 10.1 Immature Gran % 0.4 Neutrophils % 59.0 Lymphocytes % 25.2 Monocytes % 12.7 Eosinophils % 1.8 Basophils % 0.9 Nucleated RBC % 0.0 Absolute Neutrophils 2.65 Absolute Lymphocytes 1.13 L Absolute Monocytes 0.57 Absolute Eosinophils 0.08 Absolute Basophils 0.04 Sodium 142 Potassium 3.7 Chloride 106 Carbon Dioxide 29.5 Anion Gap 6.5 BUN 16 Creatinine 1.4 H Estimated GFR/1.73 m2 48.16 Glucose 100 Calcium 8.7
[2021-12-16 20:18] VITALS: BP 120/75; PULSE 73; RESP 20; TEMP 35.6; O2SAT 100
[2021-12-16 23:56] VITALS: BP 161/85; PULSE 75; RESP 17; TEMP 36.7; O2SAT 98
[2021-12-16 23:59] LABS: Bilirubin Negative (Negative); Blood Trace-intact (Negative); Clarity Clear (Clear); Glucose Negative (Negative); Ketones Negative (Negative); Leukocyte Esterase Trace (Negative); Nitrite Negative (Negative); Specific Gravity 1.025 (1.005-1.025); Urobilinogen 0.2 EU/dL (Up TO 0.2); pH 5.5 (5-8)
[2021-12-17 00:05] LABS: Epithelial Cells Negative HPF (Negative); Other Cells Few Transitional (Negative); RBC 0-2 HPF (0-2); WBC 20-50 HPF (0-5)
[2021-12-17 00:06] LABS: Bacteria Few HPF (Negative); C & S Indicated? C&S Done As Ordered; Casts 0-2 Coarse Granular LPF (Negative); Crystals Negative HPF (Negative); Mucus Negative (Negative)
[2021-12-17] MEDS: Ondansetron O.D.T. 4 MG TABEF PO (03:30)
[2021-12-17] MEDS: MEROPENEM 1 GM in Normal Saline 100 ML IVPB ×3 (05:14→21:20)
[2021-12-17] MEDS: Levothyroxine 75 MCG TAB PO (05:19)
[2021-12-17 06:37] LABS: Abs Immature Grans 0.03 10^3/uL (0.0-0.06); Absolute Basophil Count 0.03 10^3/uL (0.0-0.2); Absolute Eosinophil Count 0.13 10^3/uL (0.0-0.7); Absolute Lymphocyte Count 1.03 10^3/uL (1.2-3.4); Absolute Neutrophil Count 3.65 10^3/uL (1.2-6.7); Basophils % 0.5; Eosinophils % 2.3; HCT 43.7 % (40.0-50.0); HGB 13.4 g/dL (13.5-17.5); Immature Grans % 0.5; Lymphocytes % 18.5; MCH 29.7 pg (27.0-33.0); MCHC 30.7 % (32.0-36.0); MCV 97 fL (80-95); Monocytes % 12.6; Neutrophils % 65.6; Platelet Count 220 10^3/uL (130-400); RBC 4.51 10^6/uL (4.36-5.78); RDW 15.6 % (11.8-14.1); RDW-SD 56.2 fL; WBC 5.57 10^3/uL (4.4-10.8)
[2021-12-17 06:49] LABS: Anion Gap 7.2 mmol/L (3-11); BUN 16 mg/dL (7-18); CO2 31.8 mmol/L (21.0-32.0); CREATININE 1.3 mg/dL (0.70-1.30); Calcium 9.1 mg/dL (8.5-10.1); Chloride 103 mmol/L (98-107); Estimated GFR 52.47 (mL/min/1.73m2); Glucose 98 mg/dL (74-106); Potassium 3.8 mmol/L (3.5-5.1); Sodium 142 mmol/L (136-145)
[2021-12-17 07:00] VITALS: BP 134/74; PULSE 72; RESP 20; TEMP 36.7; O2SAT 96
[2021-12-17] MEDS: Lidocaine 5% Patch 1 PATCH TD (07:52)
[2021-12-17] MEDS: Pantoprazole 40 MG VIAL IVP (07:52)
[2021-12-17] MEDS: Dorzolamide 2% 10 ML BTL OP (07:52)
[2021-12-17] MEDS: Metoprolol 50 MG TAB PO ×2 (07:56→19:56)
[2021-12-17] MEDS: Mirabegron 50 MG TABCR PO (07:56)
[2021-12-17] MEDS: clonazePAM 0.5 MG TAB PO ×2 (07:56→19:56)
[2021-12-17] MEDS: Docusate Sodium 100 MG CAP PO ×2 (07:56→19:56)
[2021-12-17] MEDS: Normal Saline Flush 10 ML SYR IVP ×3 (07:57→21:21)
[2021-12-17] MEDS: Potassium Chloride 20 MEQ TABCR PO (07:57)
[2021-12-17] MEDS: Senna TAB 2 TAB PO (07:57)
[2021-12-17] MEDS: Furosemide 20 MG TAB 40 MG PO (07:58)
[2021-12-17 08:04] VITALS: BP 130/82; PULSE 72; RESP 18; TEMP 36.3; O2SAT 100
[2021-12-17] MEDS: MORPHine Oral Concentrate 20 MG/ML 10 MG PO (08:19)
--- NOTE | 2021-12-17 09:19 | OT.INNT ---
Occupational Therapy Notes 12/17/21 OT attempted to see pt who reports that he is too tired today. He notes that he is not feeling well and would like to sleep. OT will attempt to resume services tomorrow. Rahel Rivera OTR/[facility]
[2021-12-17] MEDS: Tiotropium Bromide-Respimat 10 PUFF INH IH (10:01)
[2021-12-17] MEDS: Mometasone 220 MCG 14 DOSE INHALER 2 PUFF IH ×2 (10:01→19:56)
--- NOTE | 2021-12-17 10:30 | PGE_ITS ---
Date of Service Date of service: 12/17/21 Time of Service: 10:30 Assessment and Plan Assessment and plan (1) Injury of right upper arm: Status: Acute Assessment and plan: non-surgical; d/c SNF (2) Acute UTI: Status: Acute Assessment and plan: continue abx, on day 2, sxs improving (3) Oxygen dependent: Status: Chronic Assessment and plan: continue oxygen 2 lpm nc (4) Palliative care patient: Status: Chronic Assessment and plan: Follow up with Palliative care Subjective Subjective Interval history since last seen: States she is feeling better, no nausea at present, eating ; solid BM Exam Narrative Exam Narrative: pt sitting comfortably in chair throughout visit Const General: cooperative, comfortable, no acute distress, ill appearing and lethargic HENMT Head: normal to inspection, normocephalic and atraumatic Ears: hearing grossly normal bilaterally Resp Effort & Inspection: normal respiratory effort, able to speak in complete sentences and other (lips cyanotic; open mouth breathing; receives RT at conclusion of visit) Other: yellow, clear urine noted in catheter bag Skin Other: dry, thin, scattered bruising Extrem Other: RUE w/sling in place Psych Speech and Movement: speech and movement normal Mood: congruent mood Attitude: cooperative Insight: fair Judgment: fair Objective Last Vital Signs Temp 36.3 C L 12/17/21 08:04 Pulse 72 12/17/21 08:04 Resp 18 12/17/21 08:04 BP 130/82 12/17/21 08:04 Pulse Ox 100 12/17/21 08:04 Laboratory Results - last 24 hr 12/16/21 12/17/21 12/17/21 23:50 06:12 06:12 WBC 5.57 RBC 4.51 Hgb 13.4 L Hct 43.7 MCV 97 H D MCH 29.7 MCHC 30.7 L D RDW 15.6 H Plt Count 220 MPV 10.0 Immature Gran % 0.5 Neutrophils % 65.6 Lymphocytes % 18.5 Monocytes % 12.6 Eosinophils % 2.3 Basophils % 0.5 Nucleated RBC % 0.0 Absolute Neutrophils 3.65 Absolute Lymphocytes 1.03 L Absolute Monocytes 0.70 Absolute Eosinophils 0.13 Absolute Basophils 0.03 Sodium 142 Potassium 3.8 Chloride 103 Carbon Dioxide 31.8 Anion Gap 7.2 BUN 16 Creatinine 1.3 Estimated GFR/1.73 m2 52.47 Glucose 98 Calcium 9.1 Urine Color Yellow Urine Clarity Clear Urine pH 5.5 Ur Specific [place] 1.025 Urine Protein Negative Urine Ketones Negative Urine Blood Trace-intact H Urine Nitrite Negative Urine Bilirubin Negative Urine Urobilinogen 0.2 Ur Leukocyte Esterase Trace H Urine RBC 0-2 Urine WBC 20-50 H Ur Epithelial Cells Negative Urine Crystals Negative Urine Bacteria Few Urine Casts 0-2 Coarse Granular Urine Mucus Negative Urine Other Few Transitional Ur Culture Indicated? C&S Done As Ordered Urine Glucose Negative
--- NOTE | 2021-12-17 11:21 | PDOC.CMPRO ---
- If Service Date Differs Date of service: 12/17/21 Time of Service: 11:21 Care Management Progress Note S/O: Brenden was lying in bed when CM met with him. Because of the injury to his right arm, it is recommended that he go to a SNF for short term rehab. Brenden was reluctant at first but after consultation with his friend Ed, he has agreed to go. Referrals were sent to [facility] and the [facility]. A:Brenden is an 86 year old man admitted with a UTI and vomiting on 12/15/21. P:Brenden will likely be discharged to a SNF for short term rehab prior to returning home. Referrals have been sent to [facility] and [facility]. In the community he has [facility] and Annette Larson is his housing case manager. These services will resume when he is discharged from rehab. Transportation will be determined by disposition. CM will follow and continue to assess for discharge needs.
[2021-12-17] MEDS: Lactulose 20 GM/30 ML CUP PO ×2 (11:36→19:56)
[2021-12-17] MEDS: HYDROmorphone 2 MG/ML SYR 0.5 MG IVP (13:02)
[2021-12-17] MEDS: fentaNYL 25 MCG PATCH TD (13:03)
--- NOTE | 2021-12-17 15:28 | PT.INTREAT ---
Date of service: 12/17/21 Time of Service: 14:24 PT Notes Visit Reasons: UTI,Vomiting Inpatient Physical Therapy Treatment Note [facility] Date: 12/17/2021 PRECAUTIONS: Activity as tolerated, Fall SUBJECTIVE: Bill agreeable to participating in PT. He reports that he did not sleep well last night. He states that he is agreeable to SNF-level rehab upon discharge. He states that he is still having pain in his R arm. OBJECTIVE: Patient requires adjustment of sling on R UE for proper fit t/o session PAIN: Patient c/o pain in R UE with AAROM activities BED MOBILITY/TRANSFERS SUpine-sit: I Sit-stand: SBA Stand-sit: SBA GAIT Assistive Device: SPC Weight bearing: Full Assist: SBA Distance: 200' Deviation: None THEREX: With patient in seated position, perform AAROM to R shoulder into flexion/extension, IR/ER, and abduction/adduction. Patient c/o pain in R UE with shoulder flexion. Patient was also instructed in a seated LE strengthening program, to include: ankle pumps, heel raises, LAQ, hip flexion and hip abduction exercises. ASSESSMENT: Patient tolerated session with complaint of R UE pain with AAROM into flexion. He was able to tolerate gait training without complaint, or without standing rests or gait deviation. PLAN: Continue with global strenghtening and general conditioning for improved mobility. TREATMENT CODE/TIME: 25 minutes; 43222 x2 (14:24)
[2021-12-17 15:32] VITALS: BP 130/80; PULSE 73; RESP 16; TEMP 36.5; O2SAT 98
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
[2021-12-17 20:00] VITALS: BP 123/72; PULSE 66; RESP 20; TEMP 36.2; O2SAT 99
[2021-12-17 23:05] VITALS: BP 138/78; PULSE 72; RESP 20; TEMP 36.6; O2SAT 98
[2021-12-18] MEDS: MEROPENEM 1 GM in Normal Saline 100 ML IVPB (05:28)
[2021-12-18] MEDS: Levothyroxine 75 MCG TAB PO (05:44)
[2021-12-18 07:30] VITALS: BP 130/70; PULSE 70; RESP 20; TEMP 36.1; O2SAT 98
[2021-12-18] MEDS: Mometasone 220 MCG 14 DOSE INHALER 2 PUFF IH (07:49)
[2021-12-18] MEDS: Tiotropium Bromide-Respimat 10 PUFF INH IH (07:49)
[2021-12-18 07:51] VITALS: O2SAT 98
[2021-12-18] MEDS: Lidocaine 5% Patch 1 PATCH TD (09:30)
[2021-12-18] MEDS: Mirabegron 50 MG TABCR PO (09:31)
[2021-12-18] MEDS: Furosemide 20 MG TAB 40 MG PO (09:31)
[2021-12-18] MEDS: Metoprolol 50 MG TAB PO (09:31)
[2021-12-18] MEDS: Potassium Chloride 20 MEQ TABCR PO (09:31)
[2021-12-18] MEDS: clonazePAM 0.5 MG TAB PO (09:32)
[2021-12-18] MEDS: Dorzolamide 2% 10 ML BTL OP (09:32)
[2021-12-18] MEDS: Senna TAB 2 TAB PO (09:32)
--- NOTE | 2021-12-18 09:34 | OTTR_ITS ---
Occupational Therapy Notes Occupational Therapy Inpatient Treatment Note Date: 12/18/21 PRECAUTIONS: Fall, Standard, DNR/DNI SUBJECTIVE: OT goes in to see pt who is lying in bed, he reports that his (L) UE is sore from his IV. He also has c/o pain in his (B) feet/toes and is worried that his puentes is going to get infected. OBJECTIVE: PAIN:c/o pain in (L) UE where IV is placed as well as (B) feet and (R) elbow. Nursing is aware of this. FUNCTIONAL MOBILITY Rolling L/R: (I) Supine-sit: min (A) Sit-stand: CGA Stand-sit: CGA Bed-Chair: CGA Chair-bed: CGA BATHING: sitting on side of the bed with max (A) set up/clean Upper Body: max (A) face, (B) UE and back Lower Body: max (A) DRESSING: sitting on side of the bed Lower Extremity: Max (A) TOILETING: Device: on toilet Assist: max (A) TREATMENT CODES/TIME: 68914x1, 45 minutes (08:50) Rahel Rivera, OTR/L [facility]
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
[2021-12-18 11:56] LABS: COVID-19 PCR Negative (Negative); Source Nasal/Nares
--- NOTE | 2021-12-18 14:06 | CMDISCH_ITS ---
- If Service Date Differs Date of service: 12/18/21 Time of Service: 14:07 LACE Index Scoring Tool - Questions: Length of Stay (in days): 3 Acuity (Admit via E.D.?): Yes Comorbidities: Chronic Pulmonary Disease, Liver or Renal Disease E.D. Visits: 11 - Answers: Total Score: 15 Risk of Readmission: High Risk Care Management Discharge Reason for Hospitalization: UTI Discharge Plan: Bill will be discharged to [facility] for a short rehab stay prior to returning home. He will transport via the facility's wheelchair van. Patient/Family Education Needs: Review discharge instructions, discuss Ask Me Three. Services Needed at Discharge: Nursing Home Facility ([facility] ), Transportation (W/C Van)
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
== END 2021-12-18 13:10 | disposition skilled nursing facility (03) | DRG 563 ==
LOC: ER 13:46 → MS 16:30
PROVIDERS: Nurse Practitioner Acute Care; Nurse Practitioner Family; Admitting Provider Family Medicine; Emergency Provider Student in an Organized Health Care Education/Training Program; PCP Family Medicine; Visit Provider Family Medicine
DX: S46.111A Strain of muscle, fascia and tendon of long head of biceps, right arm, initial encounter (principal); N39.0 Urinary tract infection, site not specified; Z16.12 Extended spectrum beta lactamase (ESBL) resistance; I48.20 Chronic atrial fibrillation, unspecified; I13.0 Hypertensive heart and chronic kidney disease with heart failure and stage 1 through stage 4 chronic kidney disease, or unspecified chronic kidney disease; I50.32 Chronic diastolic (congestive) heart failure; E03.9 Hypothyroidism, unspecified; J44.9 Chronic obstructive pulmonary disease, unspecified; X50.0XXA Overexertion from strenuous movement or load, initial encounter; R06.02 Shortness of breath; Z79.891 Long term (current) use of opiate analgesic; Z99.81 Dependence on supplemental oxygen; E27.8 Other specified disorders of adrenal gland; G89.29 Other chronic pain; R10.9 Unspecified abdominal pain; R11.2 Nausea with vomiting, unspecified; K21.9 Gastro-esophageal reflux disease without esophagitis; M54.50 Low back pain, unspecified; Z93.51 Cutaneous-vesicostomy status; B96.20 Unspecified Escherichia coli [E. coli] as the cause of diseases classified elsewhere; Z95.0 Presence of cardiac pacemaker; K59.09 Other constipation; N32.89 Other specified disorders of bladder; R53.1 Weakness; N40.1 Benign prostatic hyperplasia with lower urinary tract symptoms; R33.9 Retention of urine, unspecified; F41.9 Anxiety disorder, unspecified; Z79.01 Long term (current) use of anticoagulants; K57.30 Diverticulosis of large intestine without perforation or abscess without bleeding; I49.5 Sick sinus syndrome; K42.9 Umbilical hernia without obstruction or gangrene; Z87.891 Personal history of nicotine dependence; I83.12 Varicose veins of left lower extremity with inflammation; I83.11 Varicose veins of right lower extremity with inflammation; M48.00 Spinal stenosis, site unspecified; I73.9 Peripheral vascular disease, unspecified; N18.9 Chronic kidney disease, unspecified
CPT/HCPCS: 36415; 80048; 80053; 83690; 87635; 93005; 94640; 96361; 96365; 96375; 97110; 97162; 97166; 97530; 97535; 99285; 74176; 81003; 81015; 83735; 84484; 85025; 87086; 93010; 94664; 99223; 99232; 99238; J1170; J2270; J2405; J3490

== ENCOUNTER 2022-02-12 13:00 | Emergency (ER) | payer MEDICARE, MEDICAID, SELFPAY ==
[2022-02-12 13:17] VITALS: BP 111/79; PULSE 105; RESP 18; TEMP 36.6; O2SAT 95
[2022-02-12 13:41] LABS: Clarity Clear (Clear); Specific Gravity 1.013 (1.005-1.025)
[2022-02-12 13:42] LABS: Bilirubin Color Interference (Negative); Blood Color Interference (Negative); Glucose Color Interference mg/dL (Negative); Ketones Color Interference mg/dL (Negative); Leukocyte Esterase Color Interference (Negative); Nitrite Color Interference (Negative); Urobilinogen Color Interference EU/dL (Up TO 0.2)
[2022-02-12 13:54] LABS: Bacteria Few HPF (Negative); C & S Indicated? Yes; Casts 0-2 Fine Granular LPF (Negative); Crystals Few Amorphous HPF (Negative); Epithelial Cells Few HPF (Negative); Mucus Negative (Negative)
--- NOTE | 2022-02-12 14:30 | DI.CT_ITS ---
Exam(s) CT ABDOMEN PELVIS WO EXAM: CT ABDOMEN PELVIS WO CLINICAL HISTORY: upper and lower abd pain, r/o acute process. TECHNIQUE: Imaging Protocol: Axial computed tomography images with coronal and sagittal reformatted images were created and reviewed CONTRAST MATERIAL: Intravenous: none Oral: None COMPARISON: CT CT ABDOMEN PELVIS WO from 12/15/2021 FINDINGS: VISUALIZED LUNG BASES: Cardiac pacemaker wires.. Size of the right pleural has somewhat decreased bu t not resolved. No left pleural effusion. No pericardial effusion. ABDOMEN: There is no ascites. LIVER: There are no obvious focal hepatic lesions evident of this noninfused study. GALLBLADDER/BILIARY: Gallbladder is again noted be surgically absent. CBD is not dilated. PANCREAS: No evidence of pancreatic mass nor dilatation of the pancreatic duct. SPLEEN: Spleen size upper normal. Splenic granulomas again noted. ADRENALS: No new significant adrenal masses. KIDNEYS:Small exophytic cyst off the inferior pole of the right kidney measuring 1.3 x 1.2 cm, unchan ged. No other focal right kidney findings. Solitary tiny punctate calcification left kidney, nonobs tructive. No obstructing renal calculi nor hydronephrosis nor hydroureter. Suprapubic catheter agai n noted in the urinary bladder.. ABDOMINAL AORTA: Heavily calcified but not enlarged abdominal aorta. Calcified but not enlarged comm on iliac arteries. LYMPH NODES: There is no retroperitoneal nor paraaortic adenopathy. ABDOMINAL WALL: No evidence of significant anterior abdominal wall nor inguinal hernia. GI: There is no evidence of bowel obstruction, free air, nor abscess. PELVIS: LYMPH NODES: There is no intrapelvic nor inguinal adenopathy. GI: No evidence of appendicitis.Again noted is extensive sigmoid diverticulosis, without evidence of obvious acute diverticulitis. URINARY BLADDER: Suprapubic catheter again evident. REPRODUCTIVE: Enlarged prostate gland again noted. This measures 6 cm wide by 5 cm AP by 6 cm cranio caudal. OSSEOUS: No significant osseous lesions. No fractures. IMPRESSION: 1. Gallbladder is again noted be surgically absent. The biliary tree is not dilated. 2. Extensive sigmoid diverticulosis. No obvious acute diverticulitis. Please note that a subtle jr e of diverticulitis can be missed here, given the severe involvement of the sigmoid with diverticuli. . 3. Suprapubic catheter again noted in the urinary bladder. Significantly enlarged prostate gland aga in noted. The size of the right pleural effusion has slightly decreased when compared to prior CT scan of 12/15. However, this is not yet resolved. Findings called by myself to the ER provider. RADIATION DOSE DELIVERED: 875.36mGy.cm Total DLP DATA REPOSITORY: All CT scans at this facility are submitted to the National Radiology Data Registry (NRDR) Dose Index Registry (DIR) with the [employer] ([employer]). RADIATION OPTIMIZATION: All CT scans at this facility use at least one of these dose optimization te chniques: automated exposure control; mA and/or kV adjustment per patient size (includes targeted exa ms where dose is matched to clinical indication); or iterative reconstruction.
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
[2022-02-12 15:01] LABS: Abs Immature Grans 0.02 10^3/uL (0.0-0.06); Absolute Basophil Count 0.04 10^3/uL (0.0-0.2); Absolute Eosinophil Count 0.08 10^3/uL (0.0-0.7); Absolute Lymphocyte Count 1.37 10^3/uL (1.2-3.4); Absolute Monocyte Count 0.65 10^3/uL (0.1-0.8); Absolute Neutrophil Count 3.24 10^3/uL (1.2-6.7); Basophils % 0.7; Eosinophils % 1.5; HCT 38.7 % (40.0-50.0); HGB 12.3 g/dL (13.5-17.5); Immature Grans % 0.4; Lymphocytes % 25.4; MCH 30.2 pg (27.0-33.0); MCHC 31.8 % (32.0-36.0); MCV 95 fL (80-95); MPV 10.1 fL (8.0-11.0); Platelet Count 200 10^3/uL (130-400); RBC 4.07 10^6/uL (4.36-5.78); RDW 16.4 % (11.8-14.1); RDW-SD 57.7 fL
[2022-02-12] MEDS: ACETAMINOPHEN 1,000 MG/100 ML BTL 400 MG IVPB (15:03)
[2022-02-12] MEDS: Famotidine 20 MG/2 ML VIAL IVP (15:05)
[2022-02-12] MEDS: MORPHine 4 MG/ML SYR IVP (15:05)
[2022-02-12 15:17] LABS: ALT 19 U/L (16-63); AST 28 U/L (15-37); Albumin 3.5 g/dL (3.4-5.0); Alkaline Phosphatase 106 U/L (46-116); BUN 27 mg/dL (7-18); CREATININE 1.6 mg/dL (0.70-1.30); Calcium 9.2 mg/dL (8.5-10.1); Chloride 105 mmol/L (98-107); Estimated GFR 41.29 (mL/min/1.73m2); Glucose 98 mg/dL (74-106); Lipase 20 U/L (73-393); Potassium 4.8 mmol/L (3.5-5.1); Sodium 142 mmol/L (136-145)
[2022-02-12 15:48] VITALS: BP 120/77; PULSE 67; RESP 16; TEMP 36.8; O2SAT 98
[2022-02-12 17:13] VITALS: BP 137/81; PULSE 60; RESP 16; TEMP 36.5; O2SAT 98
--- NOTE | 2022-02-14 11:31 | W.ED.FU ---
Date of service: 02/14/22 Time of Service: 11:31 Follow Up Plan: I received urine culture and susceptibility on the morning of 02-14-2022. 2 colonies, organism 1 is E. coli greater than 100,000, organism to gram-positive telma, mixed, less than 10,000. ESBL detected. I was able to contact the patient on his phone at approximately 1130, he does have an indwelling suprapubic catheter. He reports that he continues to have the abdominal pain that he was seeing for the other day but this is what he describes as in his upper right quadrant. He denies fever, nausea, vomiting, difficulty with urinary output. He does not sound toxic. When reviewing the susceptibility, it would appear as though it is susceptible to Macrobid. While he does have a suprapubic catheter and this could be colonization, it is difficult to say that this does not require antibiotic therapy. Plan is to place on Macrobid 100 mg twice daily for 5 days. He was encouraged to return to the ER for new or worsening symptoms, otherwise he will follow-up with his PCP.
== END 2022-02-12 18:18 | disposition home or self-care (01) ==
PROVIDERS: Emergency Provider Physician Assistant; PCP Family Medicine
DX: R10.31 Right lower quadrant pain (principal); R10.13 Epigastric pain; G89.29 Other chronic pain; I13.0 Hypertensive heart and chronic kidney disease with heart failure and stage 1 through stage 4 chronic kidney disease, or unspecified chronic kidney disease; I50.9 Heart failure, unspecified; N18.9 Chronic kidney disease, unspecified; J44.9 Chronic obstructive pulmonary disease, unspecified; Z79.51 Long term (current) use of inhaled steroids; Z87.891 Personal history of nicotine dependence; K57.30 Diverticulosis of large intestine without perforation or abscess without bleeding
CPT/HCPCS: 80053; 83690; 87077; 96374; 96375; 99284; 74176; 81003; 81015; 85025; 87086; 87186; J0131; J2270

== ENCOUNTER 2022-03-02 14:13 | Inpatient (IN) | payer MEDICARE, MEDICAID, SELFPAY ==
[2022-03-02] VITALS (18 sets, daily range): BP systolic 117–137; BP diastolic 66–97; PULSE 71–118; RESP 14–24; TEMP 36–37; O2SAT 96–100
--- NOTE | 2022-03-02 15:15 | RT.EKG_ITS ---
APPROVED REPORT Exam: Resting ECG Reason for Exam: sob Patient Location: E HR:94 bpm ECG Measurements Heart Rate 94 AXIS CO [id number] P [id number] QRSd 88 QRS 32 QT 370 T 62 QTc 463 Conclusion Atrial fibrillation...? atrial activity Low voltage, extremity leads...all extremity leads <0.5mV Borderline ST depression, lateral leads...ST <-0.07mV, I aVL V5 V6 Physician: no stemi, unchanged
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
[2022-03-02 15:37] LABS: Abs Immature Grans 0.02 10^3/uL (0.0-0.06); Absolute Basophil Count 0.02 10^3/uL (0.0-0.2); Absolute Eosinophil Count 0.07 10^3/uL (0.0-0.7); Absolute Lymphocyte Count 1.19 10^3/uL (1.2-3.4); Absolute Monocyte Count 0.62 10^3/uL (0.1-0.8); Absolute Neutrophil Count 3.24 10^3/uL (1.2-6.7); Basophils % 0.4; Eosinophils % 1.4; HCT 39.8 % (40.0-50.0); HGB 12.9 g/dL (13.5-17.5); Immature Grans % 0.4; Lymphocytes % 23.1; MCH 30.2 pg (27.0-33.0); MCHC 32.4 % (32.0-36.0); MCV 93 fL (80-95); MPV 9.5 fL (8.0-11.0); Neutrophils % 62.7; Platelet Count 202 10^3/uL (130-400); RBC 4.27 10^6/uL (4.36-5.78); RDW 16.3 % (11.8-14.1); RDW-SD 54.8 fL; WBC 5.16 10^3/uL (4.4-10.8)
[2022-03-02 15:50] LABS: INR 1.5 (0.9-1.1); PTT Activated 44.8 sec (21.0-27.5); Prothrombin Time 14.4 sec (9.3-11.0)
[2022-03-02 15:57] LABS: Troponin I < 50 ng/L (<or=60)
[2022-03-02 16:01] LABS: ALT 30 U/L (16-63); AST 42 U/L (15-37); Albumin 3.5 g/dL (3.4-5.0); Alkaline Phosphatase 102 U/L (46-116); Anion Gap 6.9 mmol/L (3-11); BUN 31 mg/dL (7-18); Bilirubin, Total 0.9 mg/dL (0.2-1.0); CO2 29.1 mmol/L (21.0-32.0); CREATININE 1.7 mg/dL (0.70-1.30); Calcium 9.4 mg/dL (8.5-10.1); Chloride 103 mmol/L (98-107); Estimated GFR 39.02 (mL/min/1.73m2); Glucose 101 mg/dL (74-106); NT-proBNP 7533 pg/mL (<300); Potassium 4.7 mmol/L (3.5-5.1); Sodium 139 mmol/L (136-145); TSH (W/Ref FT4) 9.74 uIU/mL (0.36-3.74); Total Protein 7.3 g/dL (6.4-8.2)
[2022-03-02] MEDS: Furosemide 40 MG/4 ML VIAL IVP (16:09)
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
[2022-03-02 16:19] LABS: FREE T4 1.32 ng/dL (0.76-1.46)
[2022-03-02] MEDS: Ondansetron 4 MG/2 ML VIAL (16:35)
[2022-03-02 16:47] LABS: Source Nasal/Nares
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
[2022-03-02 19:40] LABS: COVID-19 PCR Negative (Negative)
[2022-03-02] MEDS: Melatonin 3 MG TAB PO (21:16)
[2022-03-02] MEDS: clonazePAM 0.5 MG TAB PO (21:18)
[2022-03-02] MEDS: Lactulose 20 GM/30 ML CUP PO (21:18)
[2022-03-02] MEDS: Metoprolol 50 MG TAB PO (21:19)
[2022-03-02] MEDS: Docusate Sodium 100 MG CAP PO (21:19)
[2022-03-02] MEDS: Latanoprost 0.005% 2.5 ML BTL OP (23:01)
[2022-03-02] MEDS: fentaNYL 50 MCG PATCH TD (23:02)
[2022-03-02] MEDS: Patch Removal 1 EACH TP (23:14)
--- NOTE | 2022-03-03 | DI.US_ITS ---
APPROVED REPORT EXAM: Comprehensive 2D, Doppler, and color-flow Echocardiogram Patient Location: In-Patient Room/Bed: 231 Lathe Set Up Person: Katharina Vargas RDCS (AE) Indications: Heart failure, Other Information Study Quality: Adequate Conclusion Normal left ventricular wall thickness and chamber size. There is mildly reduced left ventricular sy stolic function. Ejection fraction is estimated at 45 to 50%, with [id number] variation given unde rlying atrial fibrillation. Right ventricle is mildly dilated. Right ventricular systolic function appears normal The left atrium is moderately dilated. The right atrium is mildly dilated Device lead noted in the right heart The aortic valve is trileaflet and sclerotic with mild to moderate regurgitation Mildly thickened mitral leaflets with mild regurgitation Normal tricuspid valve with mild regurgitation. Estimated right ventricular systolic pressure is 36 mmHg Wall motion Left Ventricle The left ventricle is normal size. Left ventricular systolic function is mildly decreased. There is n ormal left ventricular wall thickness. There is global hypokinesis of the left ventricle. There is no ventricular septal defect visualized. LVEF is 45-50%. Right Ventricle Right ventricle is mildly dilated. The right ventricular systolic function is normal. Device lead is present in the right ventricle. Atria Left atrium is moderately dilated. Right atrium is mildly dilated. The interatrial septum is intact w ith no evidence for an atrial septal defect. Aortic Valve The Aortic valve is sclerotic. Aortic valve is trileaflet. There is no aortic valvular stenosis. Mild to moderate aortic regurgitation. Mitral Valve Mildly thickened mitral leaflets No evidence of mitral valve stenosis. Mild mitral regurgitation. Tricuspid Valve The tricuspid valve is normal in structure. There is no tricuspid valve stenosis. Mild tricuspid regu rgitation. Pulmonic Valve The pulmonary valve is normal in structure. There is no pulmonic valvular stenosis. Mild pulmonic reg urgitation. Great Vessels The aortic root is normal in size. The ascending aorta is normal in size. IVC is normal in size and c ollapses >50% with inspiration. Pericardium There is no pericardial effusion. 2D Dimensions IVSD d PLAX 1.10 cm M: 0.6-1.2 LV Vol A2C d MOD 62.9 mL LVPW d PLAX 1.11 cm M: 0.6 - 1.2 LV Vol A4C d MOD 77.6 mL LVID d PLAX 4.78 cm M: 4.2 - 5.8 LA vol/ BSA A2C s A-L 30.1 mL/m2 LVDs 3.65 cm M: 2.5 - 4.0 LA vol/ BSA A4C s A-L 37.1 mL/m2 Ao Root d 3.02 cm M: 3.1 - 3.7 LA Vol/ BSA Biplane s A-L 37.8 mL/m2 RA Area A4C 17.41 cm2 LA Area A4C s MOD 23.50 cm2 RA Vol/ BSA A4C s A-L 22.3 mL/m2 LA Area A2C s MOD 18.71 cm2 Ao Asc Diam d 3.28 cm M: 2.6 - 3.4 LV EF A4C MOD 45.0 % LV EF Teichholz 46.7 % LV EF A2C MOD 45.4 % LVEF (Painting's) 47.45 % M: 52 - 72 LV EF Biplane MOD 47.4 % LV Volume 55.10 mL M: 62 - 150 SV 34.55 mL LV Volume Index 28.40 mL/m2 M: 34 - 74 SV Index 17.74 mL/m2 LV Vol Biplane MOD 72.8 mL FS 23.30 % M-Mode TAPSE 1.80 cm (M/F) >1.7 LV Diastology MV E' medial 0.064 (>0.07 m/s) MV E Vmax 1.08 (0.4-1.3 m/s) LV E/e MED 17.00 (<14) MV E' lateral 0.090 (>0.1 m/s) LV E/e LAT 12.00 (<14) MV E/E' medial 17.03 MV E/E' lateral 12.03 Aortic Valve LVOT Area 3.04 cm2 AoV Area Vmax 1.74 cm2 LVOT Vmax 0.80 m/s AoV Area/ BSA (Vmax) 0.89 cm2/m2 LVOT Mean Jake. 0.53 m/s JEANETH Mean Jake. 1.62 cm2 LVOT Peak Grad 2.6 mmHg JEANETH Mean Jake. Index 0.83 cm2/m2 LVOT Mean Grad 1.3 mmHg AR DT 1841 msec LVOT VTI 0.177 m AR PHT 534 msec LVOT Diam s 1.95 cm AoV Vmax 1.39 m/s Velocity Ratio 0.57 AoV Mean Jake. 1.00 m/s AoV Peak Grad 7.8 mmHg LVOT SV 53.80 mL AoV Mean Grad 4.5 mmHg AoV VTI 0.301 m AoV Area VTI 1.79 cm2 AoV Area/ BSA (VTI) 0.92 cm/m2 Mitral Valve MV DT 166 (160-240 msec) MV PHT 48 msec MV Area PHT 4.58 cm2 Tricuspid Valve TR Peak Grad 29.4 mmHg TR Vmax 2.71 m/s RA Pressure 3.00 mmHg RVSP (TR) 32.4 mmHg
[2022-03-03 00:08] VITALS: BP 107/67; PULSE 67; RESP 16; TEMP 36.6; O2SAT 96
[2022-03-03] MEDS: Levothyroxine 100 MCG TAB (05:59)
[2022-03-03] MEDS: Mirabegron 50 MG TABCR PO (08:09)
[2022-03-03] MEDS: Lactulose 20 GM/30 ML CUP PO ×2 (08:09→19:58)
[2022-03-03] MEDS: Pantoprazole 40 MG TABCR PO (08:09)
[2022-03-03 08:10] VITALS: BP 127/74; PULSE 69; RESP 18; TEMP 35.5; O2SAT 99
[2022-03-03] MEDS: Docusate Sodium 100 MG CAP PO ×2 (08:10→19:58)
[2022-03-03] MEDS: Senna TAB 2 TAB PO (08:10)
[2022-03-03] MEDS: Potassium Chloride 20 MEQ TABCR PO ×3 (08:10→15:37)
[2022-03-03] MEDS: Lidocaine 5% Patch 1 PATCH TP (08:11)
[2022-03-03] MEDS: clonazePAM 0.5 MG TAB PO ×2 (08:12→19:58)
[2022-03-03] MEDS: Metoprolol 50 MG TAB PO ×2 (08:12→19:58)
[2022-03-03] MEDS: Mometasone 220 MCG 14 DOSE INHALER 1 PUFF IH ×2 (08:21→19:58)
[2022-03-03] MEDS: Dorzolamide 2% 10 ML BTL OP (09:25)
[2022-03-03] MEDS: Furosemide 40 MG/4 ML VIAL IVP ×2 (10:20→15:37)
[2022-03-03 10:39] LABS: Abs Immature Grans 0.01 10^3/uL (0.0-0.06); Absolute Basophil Count 0.02 10^3/uL (0.0-0.2); Absolute Eosinophil Count 0.05 10^3/uL (0.0-0.7); Absolute Lymphocyte Count 0.89 10^3/uL (1.2-3.4); Absolute Neutrophil Count 3.36 10^3/uL (1.2-6.7); Basophils % 0.4; HCT 37.4 % (40.0-50.0); Immature Grans % 0.2; Lymphocytes % 18.1; MCH 30.3 pg (27.0-33.0); MCHC 32.1 % (32.0-36.0); MCV 94 fL (80-95); MPV 8.9 fL (8.0-11.0); Monocytes % 12.2; Neutrophils % 68.1; Platelet Count 186 10^3/uL (130-400); RBC 3.96 10^6/uL (4.36-5.78); RDW 16.6 % (11.8-14.1); RDW-SD 57.1 fL; WBC 4.93 10^3/uL (4.4-10.8)
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
[2022-03-03 10:48] LABS: Anion Gap 4.9 mmol/L (3-11); BUN 25 mg/dL (7-18); CO2 34.1 mmol/L (21.0-32.0); CREATININE 1.5 mg/dL (0.70-1.30); Chloride 104 mmol/L (98-107); Estimated GFR 45.34 (mL/min/1.73m2); Glucose 89 mg/dL (74-106); Potassium 3.6 mmol/L (3.5-5.1); Sodium 143 mmol/L (136-145)
[2022-03-03] MEDS: Acetaminophen 325 MG TAB 650 MG PO (10:51)
--- NOTE | 2022-03-03 12:07 | W.PM.PROGNOT ---
Date of Service Date of service: 03/03/22 Time of Service: 12:07 Assessment and Plan Assessment and plan (1) Diastolic heart failure: Status: Chronic Assessment and plan: with reduced EF will continue with IV diuresis BID for now, continue to follow I&O closely, daily weights echo from today: Conclusion Normal left ventricular wall thickness and chamber size.? There is mildly reduced left ventricular systolic function.? Ejection fraction is estimated at 45 to 50%, with [id number] variation given underlying atrial fibrillation. Right ventricle is mildly dilated.? Right ventricular systolic function appears normal The left atrium is moderately dilated.? The right atrium is mildly dilated Device lead noted in the right heart The aortic valve is trileaflet and sclerotic with mild to moderate regurgitation Mildly thickened mitral leaflets with mild regurgitation Normal tricuspid valve with mild regurgitation.? Estimated right ventricular systolic pressure is 36 mmHg not currently on an JULISSA, will add entresto after acute IV diuresis complete continue beta suzie and lasix on praxada for afib Qualifiers: Heart failure chronicity: acute on chronic Qualified Code(s): I50.33 - Acute on chronic diastolic (congestive) heart failure (2) Chronic kidney disease (CKD): Status: Chronic Assessment and plan: stable with baseline 1.4-1.6. will avoid nephrotoxic medication and monitor closely Qualifiers: Chronic kidney disease stage: unspecified stage Qualified Code(s): N18.9 - Chronic kidney disease, unspecified (3) Chronic atrial fibrillation: Status: Chronic Assessment and plan: rate controlled on metoprolol, anticoagulated on pradaxa (4) COPD (chronic obstructive pulmonary disease): Status: Chronic Assessment and plan: stable with no acute exacerbation Qualifiers: COPD type: unspecified COPD Qualified Code(s): J44.9 - Chronic obstructive pulmonary disease, unspecified (5) Opioid dependence in controlled environment: Status: Chronic Assessment and plan: on fentanyl patches for chronic back pain from spinal stenosis. pharmacy verified dose continue oral mso4 for breakthrough symptoms (6) Hypothyroidism: Status: Chronic Assessment and plan: TSH is 9.74, increase his home dosing from 75 mcg daily to 100 mcg daily. It's most likely elevated d/t non compliance with medication. will need recheck in 4-6 weeks. Qualifiers: Hypothyroidism type: unspecified Qualified Code(s): E03.9 - Hypothyroidism, unspecified (7) Suprapubic catheter: Status: Chronic Assessment and plan: routine care. (8) DVT prophylaxis: Status: Acute Assessment and plan: on pradaxa teds (9) Discharge planning issues: Status: Acute Assessment and plan: will consult PT for discharge planning and needs case management following palliative care patient, will consult for continuity and goals of care discussed with DR Quiñones Subjective Subjective Patient reports: no new complaints, feels better, tolerating liquids well, tolerating a regular diet and afebrile Exam Const General: no acute distress, frail appearing and ill appearing (older than stated age) chronically Nutritional Appearance: average body habitus Orientation: alert, awake and oriented x3 HENMT Head: normal to inspection, normocephalic and atraumatic Neck Neck: full ROM and no JVD Chest Chest: pacemaker Resp Effort & Inspection: normal respiratory effort Cardio Rate: regular rate GI Inspection: normal to inspection and other (suprapubic catheter intact, no surrounding erythema) Palpation: soft General: other (suprapubic catheter) Male General Exam: Yes edema Skin Lesions: no lesions Rashes: rashes noted (anterior left lower extremity, approx 3 cm in diameter, reddened area) Neuro General: patient alert, patient awake and patient oriented x3 Extrem General: edema Laterality: bilateral Objective Last Vital Signs Temp 35.5 C L 03/03/22 08:10 Pulse 69 03/03/22 08:10 Resp 18 03/03/22 08:10 BP 127/74 03/03/22 08:10 Pulse Ox 99 03/03/22 08:10 Laboratory Results - last 24 hr 03/02/22 03/02/22 03/02/22 13:25 13:25 13:25 WBC 5.16 RBC 4.27 L Hgb 12.9 L Hct 39.8 L MCV 93 MCH 30.2 MCHC 32.4 RDW 16.3 H Plt Count 202 MPV 9.5 Immature Gran % 0.4 Neutrophils % 62.7 Lymphocytes % 23.1 Monocytes % 12.0 Eosinophils % 1.4 Basophils % 0.4 Nucleated RBC % 0.0 Absolute Neutrophils 3.24 Absolute Lymphocytes 1.19 L Absolute Monocytes 0.62 Absolute Eosinophils 0.07 Absolute Basophils 0.02 PT 14.4 H INR 1.5 H APTT 44.8 H Sodium 139 Potassium 4.7 Chloride 103 Carbon Dioxide 29.1 Anion Gap 6.9 BUN 31 H Creatinine 1.7 H Est GFR (CKD-EPI 2020) 39.02 Glucose 101 Calcium 9.4 Total Bilirubin 0.9 AST 42 H ALT 30 Alkaline Phosphatase 102 Troponin I NT-Pro-B Natriuret Pep 7533 H Total Protein 7.3 Albumin 3.5 TSH 9.74 H Free T4 1.32 COVID-19 Source SARS-CoV-2 (PCR) 03/02/22 03/02/22 03/03/22 13:25 16:42 10:15 WBC RBC Hgb Hct MCV MCH MCHC RDW Plt Count MPV Immature Gran % Neutrophils % Lymphocytes % Monocytes % Eosinophils % Basophils % Nucleated RBC % Absolute Neutrophils Absolute Lymphocytes Absolute Monocytes Absolute Eosinophils Absolute Basophils PT INR APTT Sodium 143 Potassium 3.6 D Chloride 104 Carbon Dioxide 34.1 H Anion Gap 4.9 BUN 25 H Creatinine 1.5 H Est GFR (CKD-EPI 2020) 45.34 Glucose 89 Calcium 9.0 Total Bilirubin AST ALT Alkaline Phosphatase Troponin I < 50 NT-Pro-B Natriuret Pep Total Protein Albumin TSH Free T4 COVID-19 Source Nasal/Nares SARS-CoV-2 (PCR) Negative 03/03/22 10:15 WBC 4.93 RBC 3.96 L Hgb 12.0 L Hct 37.4 L MCV 94 MCH 30.3 MCHC 32.1 RDW 16.6 H Plt Count 186 MPV 8.9 Immature Gran % 0.2 Neutrophils % 68.1 Lymphocytes % 18.1 Monocytes % 12.2 Eosinophils % 1.0 Basophils % 0.4 Nucleated RBC % 0.0 Absolute Neutrophils 3.36 Absolute Lymphocytes 0.89 L Absolute Monocytes 0.60 Absolute Eosinophils 0.05 Absolute Basophils 0.02 PT INR APTT Sodium Potassium Chloride Carbon Dioxide Anion Gap BUN Creatinine Est GFR (CKD-EPI 2020) Glucose Calcium Total Bilirubin AST ALT Alkaline Phosphatase Troponin I NT-Pro-B Natriuret Pep Total Protein Albumin TSH Free T4 COVID-19 Source SARS-CoV-2 (PCR)
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
[2022-03-03] MEDS: Normal Saline Flush 10 ML SYR (15:37)
[2022-03-03 15:50] VITALS: BP 117/67; PULSE 64; RESP 18; TEMP 36.3; O2SAT 94
[2022-03-03] MEDS: Latanoprost 0.005% 2.5 ML BTL OP (19:58)
[2022-03-03] MEDS: Patch Removal 1 EACH TP (23:35)
[2022-03-03 23:40] VITALS: BP 119/76; PULSE 77; RESP 18; TEMP 36.2; O2SAT 97
[2022-03-04] MEDS: Levothyroxine 100 MCG TAB (05:48)
[2022-03-04] MEDS: Levothyroxine 100 MCG TAB PO (05:50)
[2022-03-04 07:16] LABS: Abs Immature Grans 0.02 10^3/uL (0.0-0.06); Absolute Basophil Count 0.02 10^3/uL (0.0-0.2); Absolute Eosinophil Count 0.09 10^3/uL (0.0-0.7); Absolute Lymphocyte Count 1.27 10^3/uL (1.2-3.4); Absolute Monocyte Count 0.48 10^3/uL (0.1-0.8); Absolute Neutrophil Count 2.51 10^3/uL (1.2-6.7); Basophils % 0.5; Eosinophils % 2.1; HCT 40.6 % (40.0-50.0); HGB 12.7 g/dL (13.5-17.5); Immature Grans % 0.5; Lymphocytes % 28.9; MCH 29.7 pg (27.0-33.0); MCHC 31.3 % (32.0-36.0); MCV 95 fL (80-95); MPV 9.1 fL (8.0-11.0); Monocytes % 10.9; Neutrophils % 57.1; Platelet Count 201 10^3/uL (130-400); RBC 4.28 10^6/uL (4.36-5.78); RDW 16.6 % (11.8-14.1); RDW-SD 56.9 fL; WBC 4.39 10^3/uL (4.4-10.8)
[2022-03-04 07:28] LABS: Anion Gap 0.7 mmol/L (3-11); BUN 18 mg/dL (7-18); CO2 34.3 mmol/L (21.0-32.0); CREATININE 1.4 mg/dL (0.70-1.30); Calcium 8.8 mg/dL (8.5-10.1); Chloride 102 mmol/L (98-107); Estimated GFR 49.25 (mL/min/1.73m2); Glucose 93 mg/dL (74-106); Potassium 3.6 mmol/L (3.5-5.1); Sodium 137 mmol/L (136-145)
[2022-03-04 07:51] VITALS: BP 125/65; PULSE 69; RESP 18; TEMP 36.6; O2SAT 100
[2022-03-04] MEDS: Dorzolamide 2% 10 ML BTL OP (07:53)
[2022-03-04] MEDS: Senna TAB 2 TAB PO (07:53)
[2022-03-04] MEDS: Lidocaine 5% Patch 1 PATCH TP (07:53)
[2022-03-04] MEDS: Lactulose 20 GM/30 ML CUP PO ×2 (07:53→20:15)
[2022-03-04] MEDS: Metoprolol 50 MG TAB PO ×2 (07:54→20:15)
[2022-03-04] MEDS: Pantoprazole 40 MG TABCR PO (07:54)
[2022-03-04] MEDS: Mirabegron 50 MG TABCR PO (07:54)
[2022-03-04] MEDS: Docusate Sodium 100 MG CAP PO ×2 (07:54→20:15)
[2022-03-04] MEDS: Potassium Chloride 20 MEQ TABCR PO ×3 (07:55→16:35)
[2022-03-04] MEDS: clonazePAM 0.5 MG TAB PO ×2 (07:55→20:15)
[2022-03-04] MEDS: Furosemide 40 MG/4 ML VIAL IVP ×2 (07:58→16:35)
[2022-03-04] MEDS: Tiotropium Bromide-Respimat 10 PUFF INH 2 PUFF IH (08:10)
[2022-03-04] MEDS: Mometasone 220 MCG 14 DOSE INHALER 1 PUFF IH ×2 (08:10→20:20)
[2022-03-04] MEDS: Normal Saline Flush 10 ML SYR IVP ×2 (08:53→20:15)
--- NOTE | 2022-03-04 09:55 | CMPROGNOTE_ITS ---
- If Service Date Differs Date of service: 03/04/22 Time of Service: 09:55 Care Management Progress Note S/O:Brenden was sitting up in his chair watching TV when CM met with him. He was in good spirits and continued to joke with CM. Brenden shared that he was really hungry and an BUILDING CONSTRUCTION ESTIMATOR brought him a plate of geneva crackers with peanut butter. Brenden admitted that he loves peanut butter and goes through a large jar every couple of weeks. When his lunch arrived he was not interested in the turkey dinn er, but saved his desert and soda for later. Brenden informed CM that he is feeling much better. He has diuresed over 3L in the past 24 hours and he shared that his legs feel much better. A: Brenden is a very pleasant 86 year old man admitted on 03/02/22 with CHF P:Brenden will likely be discharged home with a resumption of services. He has [facility] high/[facility] and Annette Larson is his director of casework services in the community. He receives 2 hours of services every day, even on weekends. Brenden will follow up with his PCP and plan of care and transport with a friend vs RCT. CM will offer support to Brenden and assess for ongoing discharge concerns.
--- NOTE | 2022-03-04 13:36 | PGE_ITS ---
Date of Service Date of service: 03/04/22 Time of Service: 13:36 Assessment and Plan Assessment and plan (1) Diastolic heart failure: Status: Chronic Assessment and plan: with reduced EF will continue with IV diuresis BID for now, responding well down 5 kg continue to follow I&O closely, daily weights, check labs in am. echo Conclusion Normal left ventricular wall thickness and chamber size.? There is mildly reduced left ventricular systolic function.? Ejection fraction is estimated at 45 to 50%, with [id number] variation given underlying atrial fibrillation. Right ventricle is mildly dilated.? Right ventricular systolic function appears normal The left atrium is moderately dilated.? The right atrium is mildly dilated Device lead noted in the right heart The aortic valve is trileaflet and sclerotic with mild to moderate regurgitation Mildly thickened mitral leaflets with mild regurgitation Normal tricuspid valve with mild regurgitation.? Estimated right ventricular systolic pressure is 36 mmHg not currently on an JULISSA, will add entresto after acute IV diuresis complete continue beta suzie and lasix on praxada for afib Qualifiers: Heart failure chronicity: acute on chronic Qualified Code(s): I50.33 - Acute on chronic diastolic (congestive) heart failure (2) Chronic kidney disease (CKD): Status: Chronic Assessment and plan: stable with baseline 1.4-1.6. will avoid nephrotoxic medication and monitor closely Qualifiers: Chronic kidney disease stage: unspecified stage Qualified Code(s): N18.9 - Chronic kidney disease, unspecified (3) Chronic atrial fibrillation: Status: Chronic Assessment and plan: rate controlled on metoprolol, anticoagulated on pradaxa (4) COPD (chronic obstructive pulmonary disease): Status: Chronic Assessment and plan: stable with no acute exacerbation Qualifiers: COPD type: unspecified COPD Qualified Code(s): J44.9 - Chronic ob structive pulmonary disease, unspecified (5) Opioid dependence in controlled environment: Status: Chronic Assessment and plan: on fentanyl patches for chronic back pain from spinal stenosis. pharmacy verified dose continue oral mso4 for breakthrough symptoms (6) Hypothyroidism: Status: Chronic Assessment and plan: TSH is 9.74, increase his home dosing from 75 mcg daily to 100 mcg daily. It's most likely elevated d/t non compliance with medication. will need recheck in 4-6 weeks. Qualifiers: Hypothyroidism type: unspecified Qualified Code(s): E03.9 - Hypothyroidism, unspecified (7) Suprapubic catheter: Status: Chronic Assessment and plan: routine care. (8) DVT prophylaxis: Status: Acute Assessment and plan: on pradaxa teds (9) Discharge planning issues: Status: Acute Assessment and plan: plan to discharge home with home health services. case management following palliative care patient, will consult for continuity and goals of care discussed with DR Rodriguez Subjective Subjective Patient reports: no new complaints, feels better, tolerating liquids well, tolerating a regular diet and afebrile Interval history since last seen: worked with PT and reambulated safely Exam Const General: no acute distress, frail appearing and ill appearing (older than stated age) chronically Nutritional Appearance: average body habitus Orientation: alert, awake and oriented x3 HENMT Head: normal to inspection, normocephalic and atraumatic Neck Neck: full ROM and no JVD Chest Chest: pacemaker Resp Effort & Inspection: normal respiratory effort Cardio Rate: regular rate GI Inspection: normal to inspection and other (suprapubic catheter intact, no surrounding erythema) Palpation: soft General: other (suprapubic catheter) Skin Lesions: no lesions Rashes: rashes noted (anterior left lower extremity, approx 3 cm in diameter, reddened area) Neuro General: patient alert, patient awake and patient oriented x3 Extrem General: edema Laterality: bilateral Objective Last Vital Signs Temp 36.6 C 03/04/22 07:51 Pulse 69 03/04/22 07:51 Resp 18 03/04/22 07:51 BP 125/65 03/04/22 07:51 Pulse Ox 100 03/04/22 07:51 Laboratory Results - last 24 hr 03/04/22 03/04/22 06:45 06:45 WBC 4.39 L RBC 4.28 L Hgb 12.7 L Hct 40.6 MCV 95 MCH 29.7 MCHC 31.3 L RDW 16.6 H Plt Count 201 MPV 9.1 Immature Gran % 0.5 Neutrophils % 57.1 Lymphocytes % 28.9 Monocytes % 10.9 Eosinophils % 2.1 Basophils % 0.5 Nucleated RBC % 0.0 Absolute Neutrophils 2.51 Absolute Lymphocytes 1.27 Absolute Monocytes 0.48 Absolute Eosinophils 0.09 Absolute Basophils 0.02 Sodium 137 Potassium 3.6 Chloride 102 Carbon Dioxide 34.3 H Anion Gap 0.7 L BUN 18 Creatinine 1.4 H Est GFR (CKD-EPI 2020) 49.25 Glucose 93 Calcium 8.8
--- NOTE | 2022-03-04 15:07 | PT.INTREAT ---
PT Notes Visit Reasons: Acute on Chronic Diastolic CHF Inpatient Physical Therapy Treatment Note [facility] Date: 03/04/22 SUBJECTIVE: Brenden offers no complaints to me today. States that he is awfully tired today. OBJECTIVE: [] BED MOBILITY/TRANSFERS Sit-stand: SBA Stand-sit: SBA GAIT Assistive Device: FWW Weight bearing: AT Assist: SBA/CGA Distance: 200' Deviation: 2L O2. THEREX: performed a global LE strength and stabilization routine including LAQ, hip flex, ab/add, AP glut squeezes x 12 each. Sit to stand x5. ASSESSMENT: tolerated session well.No LOB and path deviations noted during amb this am. No c/o SOB, c/o mild fatigue post ambulation. Held pm session as pt just back into bed and he wanted to sleep. PLAN: will continue to work on his strength and endurance and functional mobility to tolerance following PT POC. TREATMENT CODE/TIME: 30 min [id number], [id number]
[2022-03-04 15:45] VITALS: BP 105/68; PULSE 73; RESP 18; TEMP 36.9; O2SAT 99
[2022-03-04] MEDS: Acetaminophen 325 MG TAB 650 MG PO (20:20)
[2022-03-04] MEDS: Melatonin 3 MG TAB PO (20:21)
[2022-03-04] MEDS: Latanoprost 0.005% 2.5 ML BTL OP (20:21)
[2022-03-04] MEDS: Patch Removal 1 EACH TP (21:12)
[2022-03-04 23:10] VITALS: BP 118/69; PULSE 81; RESP 18; TEMP 36; O2SAT 95
[2022-03-05] MEDS: Levothyroxine 100 MCG TAB PO (05:10)
[2022-03-05] MEDS: Normal Saline Flush 10 ML SYR IVP (07:33)
[2022-03-05] MEDS: Furosemide 40 MG/4 ML VIAL IVP (07:33)
[2022-03-05] MEDS: Senna TAB 2 TAB PO (07:37)
[2022-03-05] MEDS: clonazePAM 0.5 MG TAB PO (07:37)
[2022-03-05] MEDS: Mirabegron 50 MG TABCR PO (07:37)
[2022-03-05] MEDS: Metoprolol 50 MG TAB PO (07:37)
[2022-03-05] MEDS: Pantoprazole 40 MG TABCR PO (07:37)
[2022-03-05] MEDS: Docusate Sodium 100 MG CAP PO (07:37)
[2022-03-05] MEDS: Lactulose 20 GM/30 ML CUP PO (07:38)
[2022-03-05] MEDS: Potassium Chloride 20 MEQ TABCR PO ×2 (07:38→11:35)
[2022-03-05] MEDS: Tiotropium Bromide-Respimat 10 PUFF INH 2 PUFF IH (07:41)
[2022-03-05] MEDS: Mometasone 220 MCG 14 DOSE INHALER 1 PUFF IH (07:42)
[2022-03-05] MEDS: Dorzolamide 2% 10 ML BTL OP (07:45)
[2022-03-05] MEDS: Lidocaine 5% Patch 1 PATCH TP (07:46)
[2022-03-05 08:31] VITALS: BP 120/69; PULSE 85; RESP 18; TEMP 36; O2SAT 97
--- NOTE | 2022-03-05 08:53 | PDOC.CMPRO ---
- If Service Date Differs Date of service: 03/05/22 Time of Service: 08:53 Care Management Progress Note S/O:Brenden was sitting up in his chair watching TV when CM met with him. A: Brenden is a very pleasant 86 year old man admitted on 03/02/22 with CHF P:Brenden will likely be discharged home with a resumption of services. He has [facility] high/[facility] and Annette Larson is his correctional casework specialist in the community. He receives 2 hours of services every day, even on weekends. Brenden will follow up with his PCP and plan of care and transport with a friend vs RCT. CM will offer support to Brenden and assess for ongoing discharge concerns.
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
--- NOTE | 2022-03-05 14:01 | PT.INTREAT ---
Date of service: 03/05/22 Time of Service: 10:05 PT Notes Visit Reasons: Acute on Chronic Diastolic CHF Inpatient Physical Therapy Treatment Note [facility] Date: 03/05/2022 PRECAUTIONS: Activity as tolerated, Fall SUBJECTIVE: Brenden is pleasant and agreeable to participating in PT. He reports that he is feeling well this morning so far, so good. OBJECTIVE: PAIN: No c/o pain BED MOBILITY/TRANSFERS Sit-stand: SBA Stand-sit: SBA GAIT Assistive Device: FWW Weight bearing: Full Assist: SBA Distance: 200' Deviation: Standing rest x3 due to B LE fatigue STAIRS: Up/down 3x4 and 2x6 using B rails and a step-to pattern with SBA ASSESSMENT: Patient tolerated session with complaint of B LE fatigue with gait training, requiring standing rest x3. Patient demonstrates steady gait and pacing with use of FWW. PLAN: Patient to discharge to home later today, per provider. Recommend resumption of HH PT upon discharge. TREATMENT CODE/TIME: 17 minutes; 20140 (10:05)
--- NOTE | 2022-03-05 16:19 | CMDISCH_ITS ---
- If Service Date Differs Date of service: 03/05/22 Time of Service: 16:19 LACE Index Scoring Tool - Questions: Length of Stay (in days): 3 Acuity (Admit via E.D.?): Yes Comorbidities: Congestive Heart Failure, Chronic Pulmonary Disease, Liver or Renal Disease E.D. Visits: 13 - Answers: Total Score: 15 Risk of Readmission: High Risk Care Management Discharge Reason for Hospitalization: Heart Failure Discharge Plan: Brenden will be discharged home with a resumption of services. [facility] and Annette Larson is his nurse outreach case manager in the community. Brenden receives 2 hours of services every day, even on weekends. Brenden will follow up with his PCP and plan of care and transport via [facility] coordinated by CM. Patient/Family Education Needs: Review of discharge instructions, medications, diet, limitations, follow up plan, discuss Ask Me Three
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
== END 2022-03-05 14:10 | disposition home health service (06) | DRG 291 ==
LOC: ER 16:54 → MS 17:55
PROVIDERS: Nurse Practitioner Acute Care; Admitting Provider Family Medicine; Emergency Provider Student in an Organized Health Care Education/Training Program; PCP Family Medicine; Visit Provider Family Medicine
DX: I13.0 Hypertensive heart and chronic kidney disease with heart failure and stage 1 through stage 4 chronic kidney disease, or unspecified chronic kidney disease (principal); I50.33 Acute on chronic diastolic (congestive) heart failure; I48.20 Chronic atrial fibrillation, unspecified; N18.9 Chronic kidney disease, unspecified; K21.9 Gastro-esophageal reflux disease without esophagitis; G47.00 Insomnia, unspecified; I87.8 Other specified disorders of veins; M48.00 Spinal stenosis, site unspecified; Z93.51 Cutaneous-vesicostomy status; K42.9 Umbilical hernia without obstruction or gangrene; Z79.01 Long term (current) use of anticoagulants; Z95.0 Presence of cardiac pacemaker; N40.1 Benign prostatic hyperplasia with lower urinary tract symptoms; R33.8 Other retention of urine; R53.1 Weakness; H40.9 Unspecified glaucoma; K57.30 Diverticulosis of large intestine without perforation or abscess without bleeding; Z87.891 Personal history of nicotine dependence; J44.9 Chronic obstructive pulmonary disease, unspecified; F41.9 Anxiety disorder, unspecified; E03.9 Hypothyroidism, unspecified; G89.29 Other chronic pain; R10.9 Unspecified abdominal pain; M54.50 Low back pain, unspecified; Z99.81 Dependence on supplemental oxygen; I25.10 Atherosclerotic heart disease of native coronary artery without angina pectoris; I49.5 Sick sinus syndrome
CPT/HCPCS: 36415; 80048; 80053; 87635; 93005; 93306; 94640; 96374; 96375; 97110; 97162; 97530; 99285; 71045; 83880; 84439; 84443; 84484; 85025; 85610; 85730; 93010; 99223; 99233; 99238; J1940; J2405; J3490

== ENCOUNTER 2022-03-12 16:24 | Emergency (ER) | payer MEDICARE, MEDICAID, SELFPAY ==
[2022-03-12] VITALS (28 sets, daily range): BP systolic 100–136; BP diastolic 45–81; PULSE 62–128; RESP 12–24; TEMP 36.6; O2SAT 92–100
[2022-03-12 16:44] LABS: Abs Immature Grans 0.01 10^3/uL (0.0-0.06); Absolute Basophil Count 0.02 10^3/uL (0.0-0.2); Absolute Eosinophil Count 0.04 10^3/uL (0.0-0.7); Absolute Lymphocyte Count 1.23 10^3/uL (1.2-3.4); Absolute Monocyte Count 0.84 10^3/uL (0.1-0.8); Absolute Neutrophil Count 3.75 10^3/uL (1.2-6.7); Basophils % 0.3; Eosinophils % 0.7; HCT 37.3 % (40.0-50.0); HGB 12.2 g/dL (13.5-17.5); Immature Grans % 0.2; Lymphocytes % 20.9; MCH 30.2 pg (27.0-33.0); MCHC 32.7 % (32.0-36.0); MCV 92 fL (80-95); MPV 9.3 fL (8.0-11.0); Monocytes % 14.3; Neutrophils % 63.6; Platelet Count 232 10^3/uL (130-400); RBC 4.04 10^6/uL (4.36-5.78); RDW 15.9 % (11.8-14.1); WBC 5.89 10^3/uL (4.4-10.8)
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
--- NOTE | 2022-03-12 16:50 | DI.CT_ITS ---
Exam(s) CT ABDOMEN PELVIS WO EXAM: CT ABDOMEN PELVIS WO CLINICAL HISTORY: diffuse abd pain, vomiting. TECHNIQUE: Imaging Protocol: Axial computed tomography images with coronal and sagittal reformatted images were created and reviewed. COMPARISON: CT CT ABDOMEN PELVIS W from 06/15/[address] ABDOMEN PELVIS WO from 02/12/2022 FINDINGS: ABDOMEN: Lung Bases: No acute abnormality. Chronic changes are seen in the lung bases. There is a trace righ t pleural effusion. Liver: Normal density. No measurable mass. The liver has a nodular contour suspicious for hepatic cir rhosis. Gallbladder and biliary tract: Status post cholecystectomy. No biliary ductal dilatation. Pancreas: Normal density, no abnormal calcifications or inflammatory process. Spleen: Calcified granuloma in the spleen. Kidneys: Normal size, contour and axis.No radiodense stones or obstructive uropathy. Stable cyst at t he inferior pole of the right kidney. Adrenal glands: No suspicious masses are seen. Lymph nodes: Within normal limits. Abdominal Aorta: Abdominal portion non-dilated. Atherosclerosis. PELVIS: Bladder:There is a suprapubic catheter in place. The urinary bladder is incompletely distended limit ing evaluation. There is diffuse thickening of the wall of the urinary bladder. This may be due to underdistention but inflammation/infection, neurogenic bladder or bladder outlet obstruction cannot b e excluded. Bowel: No obstruction or bowel wall thickening. Appendix is unremarkable. There is diverticulosis th roughout the colon, but no evidence of acute diverticulitis. Peritoneal cavity: No ascites, collection or mesenteric inflammatory response. No free air. Reproductive organs: There is an enlarged prostate gland. Bones: Within normal limits. There is a left convex curvature of the lumbar spine. Soft Tissues: There are bilateral fat containing inguinal hernia, right greater than left. There are bilateral hydroceles incompletely imaged. IMPRESSION: No acute abdominal or pelvic process. RADIATION DOSE DELIVERED: 904.63mGy.cm Total DLP DATA REPOSITORY: All CT scans at this facility are submitted to the National Radiology Data Registry (NRDR) Dose Index Registry (DIR) with the [employer] (ACR). RADIATION OPTIMIZATION: All CT scans at this facility use at least one of these dose optimization te chniques: automated exposure control; mA and/or kV adjustment per patient size (includes targeted exa ms where dose is matched to clinical indication); or iterative reconstruction.
[2022-03-12 17:13] LABS: ALT 21 U/L (16-63); AST 29 U/L (15-37); Albumin 3.4 g/dL (3.4-5.0); Alkaline Phosphatase 108 U/L (46-116); Anion Gap 7.8 mmol/L (3-11); BUN 37 mg/dL (7-18); Bilirubin, Total 0.8 mg/dL (0.2-1.0); CO2 30.2 mmol/L (21.0-32.0); CREATININE 1.8 mg/dL (0.70-1.30); Calcium 9.3 mg/dL (8.5-10.1); Chloride 98 mmol/L (98-107); Estimated GFR 36.43 (mL/min/1.73m2); Glucose 113 mg/dL (74-106); Potassium 3.7 mmol/L (3.5-5.1); Sodium 136 mmol/L (136-145); Total Protein 7.4 g/dL (6.4-8.2)
[2022-03-12] MEDS: MORPHine 4 MG/ML SYR IVP (17:48)
[2022-03-12] MEDS: ACETAMINOPHEN 1,000 MG/100 ML BTL 400 MG IVPB (17:49)
[2022-03-12] MEDS: Ondansetron 4 MG/2 ML VIAL IVP (17:49)
--- NOTE | 2022-03-12 19:24 | DI.VRAD_ITS ---
PROCEDURE INFORMATION: Exam: CT Abdomen And Pelvis Without Contrast Exam date and time: 03/12/2022 17:21 Age: 86 years old Clinical indication: Abdominal pain TECHNIQUE: Imaging protocol: Computed tomography of the abdomen and pelvis without contrast. COMPARISON: CT ABDOMEN PELVIS WO 02/12/2022 15:51 FINDINGS: Tubes, catheters and devices: Cardiac pacemaker leads are partially seen. Suprapubic catheter, satisfactory position. Lungs: Pulmonary emphysema. Pleural spaces: Trace right pleural fluid, greatly decreased. Liver: Portions of the liver appear micronodular which is similar to prior and is most consistent with cirrhosis. No hepatic masses on noncontrast imaging. Gallbladder and bile ducts: Cholecystectomy. No significant biliary dilation or radiopaque stones in the biliary tree. Pancreas: No gross pathology in the pancreas on noncontrast imaging. Spleen: Small splenic calcifications compatible with benign granulomata. Adrenal glands: No mass. Kidneys and ureters: No nephrolithiasis or collecting system obstruction. Stomach and bowel: Colonic diverticulosis without diverticulitis. No gross pathology in the small bowel without IV contrast. Appendix: No evidence of appendicitis. Intraperitoneal space: No free air. No significant fluid collection. Vasculature: No abdominal aortic aneurysm. Lymph nodes: No significantly enlarged lymph nodes. Urinary bladder: Unremarkable as visualized. Reproductive: Bilateral hydroceles probably at least moderate, not optimally assessed on CT. Could be worked up with scrotal ultrasound. Bones/joints: Chronic bony changes with no acute fracture. Multilevel central canal and neuroforaminal stenosis in the lumbar spine. Soft tissues: Small fat-containing right inguinal hernia. IMPRESSION: 1. No acute abdominopelvic findings on noncontrast imaging. 2. Suprapubic catheter, satisfactory position. 3. Bilateral hydroceles probably at least moderate, not optimally assessed on CT. Could be worked up with scrotal ultrasound. 4. Additional findings including suspected cirrhosis as described above. Dictated and Authenticated by: Denice Walton MD. Ordering:CARLEY Steele MD
[2022-03-12] MEDS: Ondansetron O.D.T. 4 MG TABEF, 3 TABS/BTL PO (19:32)
--- NOTE | 2022-03-13 09:58 | CMPROGNOTE_ITS ---
- If Service Date Differs Date of service: 03/13/22 Time of Service: 09:58 Care Management Progress Note Dino is seen in the ED on 03/12/22 for chronic vomiting. He reports difficulties managing at home and requests to be sent to rehab for a few weeks while he regains some strength. At the request of ED provider, LA NENA meets with Dino to discuss rehab options. Dino states he has been at the [facility] in the past and would prefer to go to the [facility] but would also be willing to go to [facility]. LA NENA advises him that I will touch base with Annette Larson, his [facility] outpatient case manager, in the morning and will assist in making referrals to the [facility] and [facility]. Dino is subsequently medically cleared and discharged home. This morning, LA NENA contacts Annette Larson to relay Dino's desire to go to rehab. Annette outreaches to Dino and to his [facility], Ed. She later contacts CM to provide an update. Annette advises that the ED provider prescribed a new medication for Dino and he wishes to wait and see how he does with this medication change before agreeing to go to rehab. Annette will continue to follow.
== END 2022-03-12 19:44 | disposition home or self-care (01) ==
PROVIDERS: Emergency Provider Physician Assistant; PCP Family Medicine
DX: R11.10 Vomiting, unspecified (principal); R10.817 Generalized abdominal tenderness; I13.0 Hypertensive heart and chronic kidney disease with heart failure and stage 1 through stage 4 chronic kidney disease, or unspecified chronic kidney disease; I50.9 Heart failure, unspecified; N18.9 Chronic kidney disease, unspecified; I48.91 Unspecified atrial fibrillation; J44.9 Chronic obstructive pulmonary disease, unspecified; Z87.891 Personal history of nicotine dependence
CPT/HCPCS: 36415; 80053; 96361; 96374; 96375; 99284; 74176; 85025; J0131; J2270; J2405

== ENCOUNTER 2022-03-20 13:02 | Emergency (ER) | payer MEDICARE, MEDICAID, SELFPAY ==
[2022-03-20 13:05] VITALS: BP 131/63; PULSE 55; RESP 61; TEMP 36.5; O2SAT 97
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
--- NOTE | 2022-03-20 16:09 | CMPROGNOTE_ITS ---
- If Service Date Differs Date of service: 03/20/22 Time of Service: 16:09 Care Management Progress Note Brenden presents in the ED after falling at home and hitting his head. At the request of ED provider, CM meets with Brenden as he asks to speak with a progressive care unit registered nurse to discuss going to rehab to regain some strength. Brenden shares staff at [facility] took really good care of him the last time he was there. He goes on to say it might be a good idea for him to return to rehab for strengthening. He is agreeable to CM contacting his [facility] case management assistant, Annette Larson, and asking her to outreach to him so they can further discuss a rehab stay. CM contacts Annette by telephone and leaves a message. CM will continue to follow.
== END 2022-03-20 15:26 | disposition home or self-care (01) ==
PROVIDERS: Emergency Provider Student in an Organized Health Care Education/Training Program; PCP Family Medicine
DX: S00.93XA Contusion of unspecified part of head, initial encounter (principal); I10 Essential (primary) hypertension; I48.91 Unspecified atrial fibrillation; J44.9 Chronic obstructive pulmonary disease, unspecified; Z95.0 Presence of cardiac pacemaker; Z87.891 Personal history of nicotine dependence; W01.0XXA Fall on same level from slipping, tripping and stumbling without subsequent striking against object, initial encounter
CPT/HCPCS: 99284; 70450; 72125; 99282

== ENCOUNTER 2022-03-25 13:34 | Emergency (ER) | payer MEDICARE, MEDICAID, SELFPAY ==
[2022-03-25 13:46] VITALS: BP 131/66; PULSE 71; RESP 20; TEMP 36.7; O2SAT 98
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
== END 2022-03-25 14:33 | disposition home or self-care (01) ==
PROVIDERS: Emergency Provider Nurse Practitioner Family; PCP Family Medicine
DX: F41.9 Anxiety disorder, unspecified (principal); R09.02 Hypoxemia; I10 Essential (primary) hypertension; J44.9 Chronic obstructive pulmonary disease, unspecified; I48.91 Unspecified atrial fibrillation; Z95.0 Presence of cardiac pacemaker; Z87.891 Personal history of nicotine dependence; Z79.51 Long term (current) use of inhaled steroids
CPT/HCPCS: 99281; 99282

== ENCOUNTER 2022-04-16 13:59 | Emergency (ER) | payer MEDICARE, MEDICAID, SELFPAY ==
[2022-04-16 14:02] VITALS: BP 125/62; PULSE 69; RESP 20; TEMP 37.1; O2SAT 99
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
[2022-04-16 15:33] LABS: Lactate 1.3 mmol/L (0.6-1.4)
[2022-04-16 15:34] LABS: Abs Immature Grans 0.02 10^3/uL (0.0-0.06); Absolute Basophil Count 0.04 10^3/uL (0.0-0.2); Absolute Eosinophil Count 0.06 10^3/uL (0.0-0.7); Absolute Lymphocyte Count 1.13 10^3/uL (1.2-3.4); Absolute Monocyte Count 0.68 10^3/uL (0.1-0.8); Absolute Neutrophil Count 3.01 10^3/uL (1.2-6.7); Basophils % 0.8; Eosinophils % 1.2; HCT 37.7 % (40.0-50.0); HGB 12.3 g/dL (13.5-17.5); Immature Grans % 0.4; Lymphocytes % 22.9; MCH 30.1 pg (27.0-33.0); MCHC 32.6 % (32.0-36.0); MCV 92 fL (80-95); MPV 9.5 fL (8.0-11.0); Monocytes % 13.8; Neutrophils % 60.9; Platelet Count 238 10^3/uL (130-400); RBC 4.09 10^6/uL (4.36-5.78); RDW 15.8 % (11.8-14.1); RDW-SD 53.6 fL; WBC 4.94 10^3/uL (4.4-10.8)
[2022-04-16 15:36] LABS: Bilirubin Negative (Negative); Blood Trace-intact (Negative); Clarity Clear (Clear); Glucose Negative (Negative); Ketones Negative (Negative); Leukocyte Esterase Small (Negative); Nitrite Positive (Negative); Specific Gravity 1.015 (1.005-1.025); Urobilinogen 0.2 EU/dL (Up TO 0.2); pH 5.5 (5-8)
[2022-04-16 15:43] LABS: Bacteria Few HPF (Negative); C & S Indicated? Yes; Casts Negative LPF (Negative); Crystals Negative HPF (Negative); Epithelial Cells Few HPF (Negative); Mucus Negative (Negative); RBC 0-2 HPF (0-2)
--- NOTE | 2022-04-16 15:45 | DI.CT_ITS ---
Exam(s) CT ABDOMEN PELVIS W EXAM: CT ABDOMEN PELVIS W CLINICAL HISTORY: suprapubic/groin pain TECHNIQUE: Imaging Protocol: Axial computed tomography images with coronal and sagittal reformatted images were created and reviewed CONTRAST MATERIAL: Intravenous: Omnipaque 350 contrast volume:100 mL Oral: No COMPARISON: CT CT ABDOMEN PELVIS WO from 03/12/2022 FINDINGS: ABDOMEN: Lung Bases: There is a small right pleural effusion and subjacent infiltrate. Liver: Normal density. No measurable mass. Portal, Superior Mesenteric, and Splenic Veins: Unremarkable. Gallbladder and Biliary Tract: Status post cholecystectomy. No significant biliary ductal dilatation . Pancreas: Normal density, no abnormal calcifications or inflammatory process. Spleen: Calcified granuloma are seen in the spleen. Adrenals: No masses seen. Kidneys: Normal size, contour and axis. No radiodense stones or obstructive uropathy. There are tiny density seen in both kidneys. They are too small for further characterization but likely reflect sma ll cysts. No follow-up is recommended. Abdominal Aorta: Abdominal portion non-dilated. Atherosclerosis is present. Bowel: No obstruction or bowel wall thickening. Appendix is unremarkable. There is extensive divertic ulosis, but no evidence of acute diverticulitis. Peritoneal Cavity: No ascites, collection or mesenteric inflammatory response. No free air. Lymph Nodes: Within normal limits. Bones: Within normal limits for the patient's age. Soft Tissues: There are bilateral fat containing inguinal hernias. PELVIS: Bladder: There is a suprapubic catheter in place. There is diffuse thickening of the wall of the uri nary bladder. The bladder is incompletely distended. Reproductive Organs: The prostate gland is enlarged. Lymph Nodes: Within normal limits. Bones: Within normal limits for the patient's age. IMPRESSION: 1. No acute abdominal or pelvic process. 2. Small right pleural effusion and subjacent infiltrate which may represent atelectasis. 3. Enlarged prostate gland. 4. The urinary bladder wall is thickened. This may be due to the undistended urinary bladder, but bl adder outlet obstruction or neurogenic bladder should be considered. Inflammatory/infectious process cannot be entirely excluded. The positioning of the suprapubic catheter within the urinary bladder is unchanged compared to the examination from 03/12/2022. RADIATION DOSE DELIVERED: 1,006.36mGy.cm Total DLP DATA REPOSITORY: All CT scans at this facility are submitted to the National Radiology Data Registry (NRDR) Dose Index Registry (DIR) with the [employer] ([employer]). RADIATION OPTIMIZATION: All CT scans at this facility use at least one of these dose optimization te chniques: automated exposure control; mA and/or kV adjustment per patient size (includes targeted exa ms where dose is matched to clinical indication); or iterative reconstruction.
[2022-04-16 15:51] LABS: ALT 17 U/L (16-63); AST 24 U/L (15-37); Albumin 3.2 g/dL (3.4-5.0); Alkaline Phosphatase 97 U/L (46-116); BUN 23 mg/dL (7-18); CREATININE 1.5 mg/dL (0.70-1.30); Calcium 9.4 mg/dL (8.5-10.1); Chloride 100 mmol/L (98-107); Estimated GFR 45.06 (mL/min/1.73m2); Glucose 94 mg/dL (74-106); Potassium 3.5 mmol/L (3.5-5.1); Sodium 138 mmol/L (136-145); Total Protein 6.9 g/dL (6.4-8.2)
[2022-04-16] MEDS: Omnipaque 350 MG/ML 100 ML BTL IJ (16:55)
[2022-04-16] MEDS: Normal Saline Flush 10 ML SYR IVP (16:55)
--- NOTE | 2022-04-16 17:45 | DI.VRAD_ITS ---
PROCEDURE INFORMATION: Exam: CT Abdomen And Pelvis With Contrast Exam date and time: 04/16/2022 4:53 PM Age: 87 years old Clinical indication: Other: Suprapubic/groin pain TECHNIQUE: Imaging protocol: Computed tomography of the abdomen and pelvis with contrast. Contrast material: OMNIPAQUE 350; Contrast volume: 100 ml; Contrast route: INTRAVENOUS (IV); COMPARISON: CT Abdomen ABDOMEN PELVIS WITHOUT (Adult) 03/12/2022 5:21 PM FINDINGS: Tubes, catheters and devices: Click bladder catheter click bladder decompressed stable moderate diverticulosis of the descending and sigmoid colon. Pleural spaces: Partially visualized small right pleural effusion. Liver: Normal. No mass. Gallbladder and bile ducts: There has been a cholecystectomy. Pancreas: Normal. No ductal dilation. Spleen: Normal. No splenomegaly. Adrenal glands: Normal. No mass. Kidneys and ureters: Click atherosclerosis Severe stable bilateral moderate cortical renal atrophy. No renal stone. No hydronephrosis. Stomach and bowel: Unremarkable. No obstruction. No mucosal thickening. Appendix: No evidence of appendicitis. Intraperitoneal space: Unremarkable. No free air. No significant fluid collection. Vasculature: Unremarkable. No abdominal aortic aneurysm. Lymph nodes: Unremarkable. No enlarged lymph nodes. Urinary bladder: Unremarkable as visualized. Reproductive: Stable enlargement of the prostate gland measuring 6 x 4.8 x 6.7 cm. 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 No acute fracture. Soft tissues: Stable small right inguinal hernia containing fat. IMPRESSION: 1. No evidence of acute abdominal or pelvic process. 2. Partially visualized small right pleural effusion. 3. Stable enlargement of the prostate gland measuring 6 x 4.8 x 6.7 cm. Suprapubic catheter appears to be a within the bladder but may be causing traction of the anterior bladder wall. Deeper positioning within the bladder may relieve some of the discomfort. 4. Click bladder catheter click bladder decompressed stable moderate diverticulosis of the descending and sigmoid colon. 5. Stable small right inguinal hernia containing fat. Dictated and Authenticated by: Rafal Parks MD. Ordering:KANDI Contreras MD
== END 2022-04-16 20:12 | disposition home or self-care (01) ==
PROVIDERS: Physician Assistant; Emergency Provider Physician Assistant; PCP Family Medicine
DX: K40.90 Unilateral inguinal hernia, without obstruction or gangrene, not specified as recurrent (principal); I13.0 Hypertensive heart and chronic kidney disease with heart failure and stage 1 through stage 4 chronic kidney disease, or unspecified chronic kidney disease; I50.9 Heart failure, unspecified; N18.9 Chronic kidney disease, unspecified; J44.9 Chronic obstructive pulmonary disease, unspecified; J90 Pleural effusion, not elsewhere classified; Z96.0 Presence of urogenital implants
CPT/HCPCS: 80053; 87077; 99285; 74177; 81003; 81015; 83605; 85025; 87086; 87186; 99284; J3490

== ENCOUNTER 2022-04-25 10:19 | Emergency (ER) | payer MEDICARE, MEDICAID, SELFPAY ==
[2022-04-25 10:19] VITALS: BP 124/76; PULSE 93; RESP 18; TEMP 36.3; O2SAT 100
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
[2022-04-25 10:46] LABS: Abs Immature Grans 0.02 10^3/uL (0.0-0.06); Absolute Basophil Count 0.04 10^3/uL (0.0-0.2); Absolute Eosinophil Count 0.11 10^3/uL (0.0-0.7); Absolute Lymphocyte Count 1.33 10^3/uL (1.2-3.4); Absolute Monocyte Count 0.75 10^3/uL (0.1-0.8); Absolute Neutrophil Count 3.86 10^3/uL (1.2-6.7); Basophils % 0.7; Eosinophils % 1.8; HCT 38.1 % (40.0-50.0); HGB 12.1 g/dL (13.5-17.5); Immature Grans % 0.3; Lymphocytes % 21.8; MCH 29.3 pg (27.0-33.0); MCHC 31.8 % (32.0-36.0); MCV 92 fL (80-95); MPV 9.7 fL (8.0-11.0); Monocytes % 12.3; Neutrophils % 63.1; Platelet Count 202 10^3/uL (130-400); RBC 4.13 10^6/uL (4.36-5.78); RDW 15.7 % (11.8-14.1); RDW-SD 53.1 fL; WBC 6.11 10^3/uL (4.4-10.8)
--- NOTE | 2022-04-25 10:53 | DI.CT_ITS ---
Exam(s) CT ABDOMEN PELVIS W EXAM: CT ABDOMEN PELVIS W CLINICAL HISTORY: R inguinal hernia pain, r/o abscess/strangulation. TECHNIQUE: Imaging Protocol: Axial computed tomography images with coronal and sagittal reformatted images were created and reviewed CONTRAST MATERIAL: Intravenous: Omnipaque 100cc Oral: None COMPARISON: CT CT ABDOMEN PELVIS WO from 02/12/[address] ABDOMEN PELVIS W from 04/16/2022 FINDINGS: VISUALIZED LUNG BASES: Moderate size right pleural effusion is again noted.. ABDOMEN: There is no ascites. LIVER: Area of hypodensity in the posterior aspect of the right hepatic lobe is again noted. This is possibly related to some fatty parenchymal change but cannot totally exclude a mass here and follow- up MRI would be helpful. No focal findings in the left hepatic lobe. GALLBLADDER/BILIARY: Gallbladder surgically absent. CBD is not dilated. PANCREAS: No evidence of pancreatic mass nor dilatation of the pancreatic duct. SPLEEN: Spleen size normal. Splenic granulomas noted. Splenic and portal veins are patent. ADRENALS: Small nodular density in the left adrenal gland is again noted, measuring 1.5 by 1.4 cm. U nchanged from previous. KIDNEYS:There is a 1.2 x 1.0 cm exophytic cyst inferior pole right kidney. Tiny cyst in the left kid sally. No solid renal masses, calculi, or hydronephrosis. No hydroureter.. ABDOMINAL AORTA: Calcified but not enlarged. The common iliac arteries are also calcified but not en larged. LYMPH NODES:There is no retroperitoneal nor paraaortic adenopathy. ABDOMINAL WALL: Left inguinal hernia contains fat with some streaking. No bowel loops within the ing uinal canal. GI: There is no evidence of bowel obstruction, free air, nor abscess. PELVIS: GI: No evidence of appendicitis.Extensive sigmoid diverticulosis. No obvious acute diverticulitis. LYMPH NODES: There is no intrapelvic nor inguinal adenopathy. REPRODUCTIVE: Prostate gland significantly enlarged, measuring 5.5 cm. URINARY BLADDER: There is suprapubic catheter but the balloon appears to be intramural composition so mewhat anteriorly. OSSEOUS: No significant osseous lesions. Multilevel chronic degenerative disc disease evident. IMPRESSION: 1. Moderate right pleural effusion again noted. 2. Liver is heterogeneous, most evident posteriorly where there is hypodensity either reflecting fatt y parenchymal change but cannot exclude mass in the liver at this level and if clinically indicated f ollow-up contrast infused MRI can be performed. 3. Enlarged prostate. Suprapubic catheter with balloon appearing to be in the anterior wall of the u rinary bladder at risk for migrating through the anterior wall of the bladder. 4. Extensive sigmoid diverticulosis. No obvious acute diverticulitis. RADIATION DOSE DELIVERED: 941.86mGy.cm Total DLP DATA REPOSITORY: All CT scans at this facility are submitted to the National Radiology Data Registry (NRDR) Dose Index Registry (DIR) with the [employer] (ACR). RADIATION OPTIMIZATION: All CT scans at this facility use at least one of these dose optimization te chniques: automated exposure control; mA and/or kV adjustment per patient size (includes targeted exa ms where dose is matched to clinical indication); or iterative reconstruction.
[2022-04-25] MEDS: Omnipaque 350 MG/ML 100 ML BTL IJ (11:07)
[2022-04-25] MEDS: Normal Saline Flush 10 ML SYR IVP (11:08)
[2022-04-25 11:11] LABS: ALT 14 U/L (16-63); AST 30 U/L (15-37); Albumin 3.1 g/dL (3.4-5.0); Alkaline Phosphatase 100 U/L (46-116); Anion Gap 6.3 mmol/L (3-11); BUN 27 mg/dL (7-18); Bilirubin, Total 0.9 mg/dL (0.2-1.0); CO2 29.7 mmol/L (21.0-32.0); CREATININE 1.5 mg/dL (0.70-1.30); Calcium 9.1 mg/dL (8.5-10.1); Chloride 103 mmol/L (98-107); Estimated GFR 45.06 (mL/min/1.73m2); Glucose 91 mg/dL (74-106); Lipase 59 U/L (73-393); Potassium 4.3 mmol/L (3.5-5.1); Sodium 139 mmol/L (136-145); Total Protein 6.8 g/dL (6.4-8.2)
--- NOTE | 2022-04-25 11:28 | DI.VRAD_ITS ---
PROCEDURE INFORMATION: Exam: CT Abdomen And Pelvis With Contrast Exam date and time: 04/25/2022 11:05 AM Age: 87 years old Clinical indication: Abdominal pain and other: Rlq; Acute; Patient HX: RT inguinal hernia pain. R/O abscess/strangulation TECHNIQUE: Imaging protocol: Computed tomography of the abdomen and pelvis with contrast. Radiation optimization: All CT scans at this facility use at least one of these dose optimization techniques: automated exposure control; mA and/or kV adjustment per patient size (includes targeted exams where dose is matched to clinical indication); or iterative reconstruction. Contrast material: OMNIPAQUE 350; Contrast volume: 100 ml; Contrast route: INTRAVENOUS (IV); COMPARISON: CT ABDOMEN PELVIS W 04/16/2022 4:53 PM FINDINGS: Tubes, catheters and devices: Transvenous pacemaker leads in the heart. Suprapubic tube in the bladder. The balloon is more anterior than it was on the prior study. The anterior wall is more effaced and compress than it was on the prior study. The balloon may be migrating through the anterior wall of the bladder. Series 4, image 68. Recommend changing the position of the balloon.. Lungs: Mild opacity in the right lower lobe may represent atelectasis or pneumonia.. Pleural spaces: Moderate right pleural effusion was present on the prior study.. Liver: The liver is very heterogeneous especially posteriorly. Findings may reflect fatty infiltration of the liver. If a mass is suspected recommend MRI. Gallbladder and bile ducts: Cholecystectomy Pancreas: Normal. No ductal dilation. Spleen: Normal. No splenomegaly. Adrenal glands: Normal. No mass. Kidneys and ureters: Normal. No hydronephrosis. Stomach and bowel: Diverticulosis of the rectosigmoid. Pericolonic inflammatory changes may represent diverticulitis in the appropriate clinical setting.. Appendix: Normal appendix Intraperitoneal space: Unremarkable. No free air. No significant fluid collection. Vasculature: Unremarkable. No abdominal aortic aneurysm. Lymph nodes: Unremarkable. No enlarged lymph nodes. Urinary bladder: Unremarkable as visualized. Reproductive: The prostate is enlarged, greater than 5.8 cm. Recommend urology consult. Bones/joints: Unremarkable. No acute fracture. Soft tissues: Right inguinal hernia contains fluid but no bowel. It may be inflamed. IMPRESSION: 1. Moderate right pleural effusion was present on the prior study.. 2. Mild opacity in the right lower lobe may represent atelectasis or pneumonia.. 3. The liver is very heterogeneous especially posteriorly. Findings may reflect fatty infiltration of the liver. If a mass is suspected recommend MRI. 4. The prostate is enlarged, greater than 5.8 cm. Recommend urology consult. 5. Suprapubic tube in the bladder. The balloon is more anterior than it was on the prior study. The anterior wall is more effaced and compressed than it was on the prior study. The balloon may be migrating through the anterior wall of the bladder. Series 4, image 68. Recommend changing the position of the balloon.. 6. Diverticulosis of the rectosigmoid. Pericolonic inflammatory changes may represent diverticulitis in the appropriate clinical setting.. 7. Right inguinal hernia contains fluid but no bowel. It may be inflamed. THIS REPORT CONTAINS FINDINGS THAT MAY BE CRITICAL TO PATIENT CARE. The findings were verbally communicated via telephone conference with di moya at 11:26 AM EDT on 04/25/2022. The findings were acknowledged and understood. Dictated and Authenticated by: Shawna George MD. Ordering:CARLEY Steele MD
--- NOTE | 2022-04-25 11:43 | NUR.NOTE ---
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 Patient educated that we have it clamped to obtain a clean urine sample. Patient refuses to listen to this contract technical writer.
[2022-04-25] MEDS: HYDROmorphone 2 MG/ML SYR 0.5 MG IVP (11:49)
[2022-04-25 12:01] LABS: Bilirubin Negative (Negative); Blood Moderate (Negative); Clarity Clear (Clear); Glucose Negative (Negative); Ketones Negative (Negative); Leukocyte Esterase Small (Negative); Nitrite Negative (Negative); Urobilinogen 0.2 EU/dL (Up TO 0.2)
[2022-04-25 12:07] LABS: Bacteria Few HPF (Negative); C & S Indicated? Yes; Casts Negative LPF (Negative); Crystals Negative HPF (Negative); Epithelial Cells Rare HPF (Negative); Mucus Negative (Negative)
[2022-04-25 13:27] LABS: C-Reactive Protein 1.12 mg/dL (0.0-0.3)
[2022-04-25 14:17] VITALS: BP 129/78; PULSE 87; RESP 18; TEMP 36.2; O2SAT 96
--- NOTE | 2022-04-29 08:20 | W.ED.FU ---
Date of service: 04/29/22 Time of Service: 08:20 Follow Up Plan: Spoke with patient regarding results and need for antibiotic. He verbalizes understanding. Will call in prescription For Levaquin 750mg PO x 7 days. E-script sent to [facility], pharmacy on file.
== END 2022-04-25 14:15 | disposition home or self-care (01) ==
PROVIDERS: Emergency Provider Physician Assistant; PCP Family Medicine
DX: G89.29 Other chronic pain (principal); R10.32 Left lower quadrant pain; T83.028A Displacement of other urinary catheter, initial encounter; I11.0 Hypertensive heart disease with heart failure; I50.9 Heart failure, unspecified; R91.8 Other nonspecific abnormal finding of lung field; I48.91 Unspecified atrial fibrillation; K44.9 Diaphragmatic hernia without obstruction or gangrene; Z79.51 Long term (current) use of inhaled steroids; Z87.891 Personal history of nicotine dependence; Z96.0 Presence of urogenital implants; Y83.8 Other surgical procedures as the cause of abnormal reaction of the patient, or of later complication, without mention of misadventure at the time of the procedure
CPT/HCPCS: 36415; 51702; 80053; 83690; 87077; 96361; 96374; 99285; 74177; 81003; 81015; 85025; 86140; 87086; 87186; 99284; J1170; J3490

== ENCOUNTER 2022-05-03 11:04 | Observation (INO) | payer MEDICARE, MEDICAID, SELFPAY ==
[2022-05-03] VITALS (55 sets, daily range): BP systolic 96–130; BP diastolic 50–72; PULSE 64–116; RESP 9–32; TEMP 36.4–36.5; O2SAT 96–99
--- NOTE | 2022-05-03 11:00 | DI.CT_ITS ---
Exam(s) CT THORACIC SPINE WO EXAM: CT THORACIC SPINE WO CLINICAL HISTORY: fall, midline throacic pain. TECHNIQUE: Imaging Protocol: Axial computed tomography images with coronal and sagittal reformatted images were created and reviewed. COMPARISON: CT LUMBAR SPINE WITHOUT CONTRAST from 02/19/2016 FINDINGS: Bones: No fractures or dislocations are seen. The alignment of the spine is normal including the cerv icothoracic junction. Age-appropriate degenerative changes are seen in the thoracic spine. Soft tissues: Emphysematous changes are present in the lungs. No large disk herniations are identifi ed. IMPRESSION: No acute fracture or subluxation in the thoracic spine. RADIATION DOSE DELIVERED: Total DLP Total DLP DATA REPOSITORY: All CT scans at this facility are submitted to the National Radiology Data Registry (NRDR) Dose Index Registry (DIR) with the [employer] (ACR). RADIATION OPTIMIZATION: All CT scans at this facility use at least one of these dose optimization te chniques: automated exposure control; mA and/or kV adjustment per patient size (includes targeted exa ms where dose is matched to clinical indication); or iterative reconstruction.
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
--- NOTE | 2022-05-03 11:30 | RT.EKG_ITS ---
APPROVED REPORT Exam: Resting ECG Reason for Exam: falls, pacer Patient Location: E HR:94 bpm ECG Measurements Heart Rate 94 AXIS IN [id number] P [id number] QRSd 89 QRS 54 QT 399 T 52 QTc 500 Conclusion Atrial fibrillation...V-rate 62-172, irreg A-activity Low voltage, extremity leads...all extremity leads <0.5mV Borderline ST depression, lateral leads...ST <-0.07mV, I aVL V5 V6 atrial fibrillation, normal axis, slight ST segment depression lateral leads
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
[2022-05-03] MEDS: ACETAMINOPHEN 1,000 MG/100 ML BTL 400 MG IVPB (11:33)
[2022-05-03 11:42] LABS: Abs Immature Grans 0.02 10^3/uL (0.0-0.06); Absolute Basophil Count 0.02 10^3/uL (0.0-0.2); Absolute Eosinophil Count 0.05 10^3/uL (0.0-0.7); Absolute Lymphocyte Count 1.07 10^3/uL (1.2-3.4); Absolute Monocyte Count 0.79 10^3/uL (0.1-0.8); Absolute Neutrophil Count 3.85 10^3/uL (1.2-6.7); Basophils % 0.3; Eosinophils % 0.9; HGB 12.5 g/dL (13.5-17.5); Immature Grans % 0.3; Lymphocytes % 18.4; MCH 29.3 pg (27.0-33.0); MCHC 32.1 % (32.0-36.0); MCV 91 fL (80-95); MPV 9.6 fL (8.0-11.0); Monocytes % 13.6; Neutrophils % 66.5; Platelet Count 217 10^3/uL (130-400); RBC 4.27 10^6/uL (4.36-5.78); RDW 15.8 % (11.8-14.1); RDW-SD 52.6 fL
[2022-05-03] MEDS: Normal Saline 500 ML 1000 ML IV (11:48)
[2022-05-03 11:55] LABS: Bilirubin Negative (Negative); Blood Trace-intact (Negative); Clarity Clear (Clear); Glucose Negative (Negative); Ketones Negative (Negative); Leukocyte Esterase Trace (Negative); Nitrite Positive (Negative); Specific Gravity 1.025 (1.005-1.025); Urobilinogen 0.2 EU/dL (Up TO 0.2); pH 5.5 (5-8)
[2022-05-03 12:00] LABS: ALT 15 U/L (16-63); AST 24 U/L (15-37); Alkaline Phosphatase 86 U/L (46-116); Anion Gap 7.6 mmol/L (3-11); BUN 30 mg/dL (7-18); Bilirubin, Total 1.1 mg/dL (0.2-1.0); CO2 30.4 mmol/L (21.0-32.0); CREATININE 1.6 mg/dL (0.70-1.30); Calcium 9.3 mg/dL (8.5-10.1); Chloride 100 mmol/L (98-107); Glucose 100 mg/dL (74-106); Potassium 3.6 mmol/L (3.5-5.1); Sodium 138 mmol/L (136-145); Total Protein 6.8 g/dL (6.4-8.2)
[2022-05-03 12:02] LABS: Bacteria Few HPF (Negative); C & S Indicated? Yes; Casts Negative LPF (Negative); Crystals Negative HPF (Negative); Epithelial Cells Rare HPF (Negative); Mucus Negative (Negative); RBC 0-2 HPF (0-2)
--- NOTE | 2022-05-03 12:38 | DI.VRAD_ITS ---
PROCEDURE INFORMATION: Exam: CT Thoracic Spine Without Contrast Exam date and time: 05/03/2022 12:15 PM Age: 87 years old Clinical indication: Other: Fall, midline throacic pain TECHNIQUE: Imaging protocol: Computed tomography of the thoracic spine without contrast. Radiation optimization: All CT scans at this facility use at least one of these dose optimization techniques: automated exposure control; mA and/or kV adjustment per patient size (includes targeted exams where dose is matched to clinical indication); or iterative reconstruction. COMPARISON: CT HEAD CERVICAL SPINE WO 03/05/2022 12:07 FINDINGS: Bones/joints: Thoracic vertebral bodies are all normal in height and alignment with no compression deformity. Intervertebral disc spaces are maintained. Moderate spurring is present at multiple levels. In posterior column facet joints appear normal. No spinous process fracture is seen. Posterior costovertebral articulations are intact. Soft tissues: Unremarkable. IMPRESSION: No sign of acute thoracic trauma. Dictated and Authenticated by: Hardy Calderon MD. Ordering:STEVENSON Jain MD
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
--- NOTE | 2022-05-03 12:40 | DI.VRAD_ITS ---
PROCEDURE INFORMATION: Exam: CT Head Without Contrast Exam date and time: 05/03/2022 12:07 PM Age: 87 years old Clinical indication: Injury or trauma; Fall; Blunt trauma (contusions or hematomas) TECHNIQUE: Imaging protocol: Computed tomography of the head without contrast. COMPARISON: CT HEAD CERVICAL SPINE WO 03/20/2022 2:00 PM FINDINGS: Brain: Hill-white matter differentiation is within normal limits. No mass effect or midline shift. There are stable mild nonspecific patchy and confluent foci of periventricular white matter hypodensity, probably due to chronic microvascular ischemic changes. Sulci and basilar cisterns are prominent due to parenchymal volume loss. No extra-axial fluid collection. Cerebral ventricles: No ventriculomegaly. Paranasal sinuses: Mild fluid in the right maxillary sinus. Mastoid air cells: Visualized mastoid air cells are well aerated. Bones/joints: No acute fracture. Soft tissues: Unremarkable. IMPRESSION: No acute intracranial abnormality. PROCEDURE INFORMATION: Exam: CT Cervical Spine Without Contrast Exam date and time: 05/03/2022 12:07 PM Age: 87 years old Clinical indication: Injury or trauma; Fall; Blunt trauma (contusions or hematomas) TECHNIQUE: Imaging protocol: Computed tomography of the cervical spine without contrast. COMPARISON: CT HEAD CERVICAL SPINE WO 03/20/2022 2:00 PM FINDINGS: Bones/joints: Normal alignment. Craniocervical junction within normal limits. Vertebral body heights are preserved. Posterior elements are intact. Disc degenerative changes with mild loss of disc height at multiple levels noted. Moderate neural foraminal stenosis at bilateral C3-C4. Moderate to severe right and moderate left neural foraminal stenosis at C4-C5. Mild neural foraminal stenosis in the left C5-C6. Craniocervical junction within normal limits. Osteophyte disc complex causes at least moderate canal stenosis at C3-C4 and mild spinal canal stenosis at C4-C5. Brain: Numerous radiopaque rounded metallic densities or pellets in the posterior paraspinal soft tissues noted, unchanged. Lungs: Moderate centrilobular emphysematous changes in the lungs. Soft tissues: Unremarkable. IMPRESSION: No acute fracture or subluxation. Dictated and Authenticated by: Manny Ledesma MD. Ordering:STEVENSON Jain MD
[2022-05-03] MEDS: Cefpodoxime 200 MG TAB PO ×2 (13:56→20:23)
[2022-05-03 14:14] LABS: Source Nasal/Nares
[2022-05-03 14:47] LABS: COVID-19 PCR Negative (Negative)
--- NOTE | 2022-05-03 15:37 | NUR.NOTE ---
updated patient's friend about his status. Friend was in his contact:
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
[2022-05-03] MEDS: Lactulose 20 GM/30 ML CUP PO (20:22)
[2022-05-03] MEDS: Normal Saline Flush 10 ML SYR IVP (20:22)
[2022-05-03] MEDS: Docusate Sodium 100 MG CAP PO (20:22)
[2022-05-03] MEDS: MORPHine 4 MG/ML SYR 2 MG IVP (20:22)
[2022-05-03] MEDS: Acetaminophen 325 MG TAB 650 MG PO (20:23)
[2022-05-03] MEDS: Furosemide 20 MG TAB 40 MG PO (20:23)
[2022-05-03] MEDS: Lactated Ringers 1,000 ML 125 ML IV (20:25)
--- NOTE | 2022-05-03 22:15 | TELEP.MEDR_ITS ---
Date of service: 05/03/22 Time of Service: 22:15 Telepharmacy Home Med Rec Allergies Allergies: banana Allergy (Mild, Unverified 05/03/22 11:37) Skin Rash formoterol fumarate [From Dulera] Adverse Reaction (Intermediate, Unverified 05/03/22 11:37) Ineffective per Pt mometasone furoate [From Dulera] Adverse Reaction (Intermediate, Unverified 05/03/22 11:37) Ineffective per Pt hydrocodone Adverse Reaction (Unknown, Unverified 05/03/22 11:37) Dizziness/Lightheade Interview Person Interviewed: Used med list provided by [facility] health care agency, patient stated takes whatever they set out for him, doesnt know his medications at all. Quality Quality of Interview/Accuracy of Medication List: Good Sources Sources used to compile medication list: [employer] Medication List, Patient List and Other Changes made to Home Medication List: ADDITIONS: * Pyridium 100mg po BID prn * Pradaxa 75mg po BID * Potassium chloride ER 20meq po daily * Zofran ODT 4mg po every 6 hours prn * Myrbetriq 50mg ER po daily * Metoprolol 50mg po BID * Melatonin 3mg po hs * Fentanyl patch 50mcg topically every 72 hours * Voltaren 1% gel 1 application BID prn * CLonazepam 0.5 mg po BID * Loratadine 10mg po daily * Lorazepam 0.5mg po tid prn DELETIONS: * None CHANGES: * Compazine 5mg po bid prn * Lactulose 20g po BID prn * Levothyroxine 100mcg po daily * Morphine conc 20 mg/mL 10-20mg po every 4 hours prn Additional Notes Additional Notes: Updated medication list with as much information as possible after obtaining medication list from [facility]. Unable to document last doses, as patient is unaware of his last doses at home. Recommended Changes Recommended Changes(reason for recommendation): None Attestation: The home medication list is now updated to the best of my knowledge and is ready to be reconciled by the provider. Please contact the [facility] Medication Reconciliation Pharmacist at for any questions.
--- NOTE | 2022-05-03 22:15 | TELEP.MEDREC ---
Date of service: 05/03/22 Time of Service: 22:15 Telepharmacy Home Med Rec Allergies Allergies: banana Allergy (Mild, Unverified 05/03/22 11:37) Skin Rash formoterol fumarate [From Dulera] Adverse Reaction (Intermediate, Unverified 05/03/22 11:37) Ineffective per Pt mometasone furoate [From Dulera] Adverse Reaction (Intermediate, Unverified 05/03/22 11:37) Ineffective per Pt hydrocodone Adverse Reaction (Unknown, Unverified 05/03/22 11:37) Dizziness/Lightheade Interview Person Interviewed: Used med list provided by [facility] health care agency, patient stated takes whatever they set out for him, doesnt know his medications at all. Quality Quality of Interview/Accuracy of Medication List: Good Sources Sources used to compile medication list: [facility] Medication List, Patient List and Other Changes made to Home Medication List: ADDITIONS: Pyridium 100mg po BID prn Pradaxa 75mg po BID Potassium chloride ER 20meq po daily Zofran ODT 4mg po every 6 hours prn Myrbetriq 50mg ER po daily Metoprolol 50mg po BID Melatonin 3mg po hs Fentanyl patch 50mcg topically every 72 hours Voltaren 1% gel 1 application BID prn CLonazepam 0.5 mg po BID Loratadine 10mg po daily Lorazepam 0.5mg po tid prn DELETIONS: None CHANGES: Compazine 5mg po bid prn Lactulose 20g po BID prn Levothyroxine 100mcg po daily Morphine conc 20 mg/mL 10-20mg po every 4 hours prn Additional Notes Additional Notes: Updated medication list with as much information as possible after obtaining medication list from [facility]. Unable to document last doses, as patient is unaware of his last doses at home. Recommended Changes Recommended Changes(reason for recommendation): None Attestation: The home medication list is now updated to the best of my knowledge and is ready to be reconciled by the provider. Please contact the TelePharmacy Medication Reconciliation Pharmacist at for any questions.
[2022-05-03] MEDS: Latanoprost 0.005% 2.5 ML BTL OP (23:58)
[2022-05-03] MEDS: Mometasone 220 MCG 14 DOSE INHALER 1 PUFF IH (23:58)
[2022-05-04] VITALS (8 sets, daily range): BP systolic 112–136; BP diastolic 42–76; PULSE 66–104; RESP 17–22; TEMP 36–36.7; O2SAT 96–100
[2022-05-04] MEDS: Acetaminophen 325 MG TAB 650 MG PO ×2 (04:33→10:38)
[2022-05-04] MEDS: Levothyroxine 75 MCG TAB PO (05:45)
[2022-05-04 06:33] LABS: Abs Immature Grans 0.01 10^3/uL (0.0-0.06); Absolute Basophil Count 0.02 10^3/uL (0.0-0.2); Absolute Eosinophil Count 0.08 10^3/uL (0.0-0.7); Absolute Lymphocyte Count 0.97 10^3/uL (1.2-3.4); Absolute Monocyte Count 0.37 10^3/uL (0.1-0.8); Absolute Neutrophil Count 1.67 10^3/uL (1.2-6.7); Basophils % 0.6; Eosinophils % 2.6; HCT 34.3 % (40.0-50.0); HGB 11.3 g/dL (13.5-17.5); Immature Grans % 0.3; Lymphocytes % 31.1; MCH 29.6 pg (27.0-33.0); MCHC 32.9 % (32.0-36.0); MCV 90 fL (80-95); MPV 9.6 fL (8.0-11.0); Monocytes % 11.9; Neutrophils % 53.5; Platelet Count 171 10^3/uL (130-400); RBC 3.82 10^6/uL (4.36-5.78); RDW-SD 52.6 fL; WBC 3.12 10^3/uL (4.4-10.8)
[2022-05-04 06:48] LABS: Anion Gap 7.3 mmol/L (3-11); BUN 21 mg/dL (7-18); CO2 29.7 mmol/L (21.0-32.0); CREATININE 1.2 mg/dL (0.70-1.30); Calcium 8.8 mg/dL (8.5-10.1); Chloride 105 mmol/L (98-107); Estimated GFR 58.89 (mL/min/1.73m2); Glucose 94 mg/dL (74-106); Magnesium 1.8 mg/dL (1.8-2.4); Sodium 142 mmol/L (136-145)
[2022-05-04] MEDS: Lactulose 20 GM/30 ML CUP PO (08:09)
[2022-05-04] MEDS: Furosemide 20 MG TAB 40 MG PO ×2 (08:10→19:59)
[2022-05-04] MEDS: Cefpodoxime 200 MG TAB PO ×2 (08:10→19:59)
[2022-05-04] MEDS: Senna TAB 2 TAB PO (08:10)
[2022-05-04] MEDS: Pantoprazole 40 MG TABCR PO (08:10)
[2022-05-04] MEDS: Docusate Sodium 100 MG CAP PO ×2 (08:10→20:00)
[2022-05-04] MEDS: Lidocaine 5% Patch 1 PATCH TD (08:11)
[2022-05-04] MEDS: Normal Saline Flush 10 ML SYR IVP (08:13)
[2022-05-04] MEDS: Dorzolamide 2% 10 ML BTL OP (09:04)
[2022-05-04] MEDS: MAGNESIUM SULFATE 1 GM/100 ML BAG IVPB (09:14)
[2022-05-04] MEDS: POTASSIUM CHLORIDE 20 MEQ/100 ML BAG 50 MEQ IVPB ×2 (09:15→11:48)
[2022-05-04] MEDS: Tiotropium Bromide-Respimat 10 PUFF INH IH (10:10)
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
[2022-05-04] MEDS: fentaNYL 50 MCG PATCH TD (13:03)
--- NOTE | 2022-05-04 14:04 | PT.INTREAT ---
Date of service: 05/04/22 Time of Service: 13:30 PT Notes Visit Reasons: UTI,Dehydration,Falls Inpatient Physical Therapy Treatment Note [facility] Date: 05/04/2022 PRECAUTIONS: Activity as tolerated, fall SUBJECTIVE: Brenden is pleasant and agreeable to participate in PT. He states what else is there to do around here? He also reports that he walks a lot at home, because he does not sleep much, and wants to continue working on maintaining his ability to walk around. OBJECTIVE: PAIN: Patient c/o occasional L thigh cramping pain with gait training BED MOBILITY/TRANSFERS: Sit-stand: SBA Stand-sit: SBA GAIT Assistive Device: FWW Weight bearing: Full Assist: SBA Distance: 150' + 100' Deviation: Increased fatigue, short step height and length, seated rest x1 due to cramping pain in thigh ASSESSMENT: Patient tolerated session with increased fatigue with gait training, although was able to tolerate a significant progression in gait distance. He demonstrates global weakness. PLAN: Continue with global strengthening and general conditioning for improved mobility and activity tolerance. TREATMENT CODE/TIME: 20 minutes; 18894 (13:30)
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
--- NOTE | 2022-05-04 17:35 | PGE_ITS ---
Date of Service Date of service: 05/04/22 Time of Service: 17:35 Assessment and Plan Assessment and plan (1) UTI (urinary tract infection): Status: Acute Assessment and plan: suprapubic catheter in place (changed 05/03/22) urine cx 04/16/22 and 04/25/22 grew klebsiella pneumoniae, was Rx'd levofloxacin at home w/some concern of him taking this - doubt he was taking started cefpodoxime in ED, will continue UCx - e. coli - sensitivities pending - continue Cefpodoxime (2) Frailty: Status: Acute Assessment and plan: recommend SNF for nursing home placement for safety concerns (3) Falls: Status: Acute Assessment and plan: recurrent and frequent pt aware of safety risks and agrees to placement at SNF, for nursing home placement to be considered through the winter for safety concerns (4) Oxygen dependent: Status: Chronic Assessment and plan: no oxygen in use today during visit, breathing appropriate while eating, maintaining Sats (5) Goals of care, counseling/discussion: Status: Acute Assessment and plan: Bill agrees that he needs more assistance and does better in rehab setting will return to [facility] upon discharge consider hospice once settled at [facility] for additional care supports (6) Health care proxy on file: Status: Chronic Assessment and plan: Taisha, niece (7) Chronic dyspnea: Status: Acute Assessment and plan: continue morphine PRN (8) Chronic pain: Status: Chronic Assessment and plan: controlled today continue pain meds prn Qualifiers: Chronic pain type: chronic pain syndrome Qualified Code(s): G89.4 - Chronic pain syndrome (9) At high risk for falls: Status: Acute Assessment and plan: PT is working with him - walker - 2 person stand by (10) Pacemaker: Status: Chronic Assessment and plan: Functioning - no concerns (11) Generalized weakness: Status: Acute Assessment and plan: Very weak (12) COPD (chronic obstructive pulmonary disease): Status: Chronic Assessment and plan: Home O2 - here not using Oxygen and maintaining sats, however not much exertion used Qualifiers: COPD type: unspecified COPD Qualified Code(s): J44.9 - Chronic obstructive pulmonary disease, unspecified (13) Anxiety disorder: Status: Chronic Assessment and plan: continue scheduled clonazepam (14) Unexplained weight loss: Status: Acute Assessment and plan: last weight 15lbs; 03/02/22 179lbs, 08/15/21 177lbs, 04/19/21 184lbs continue to trend hospice eligible (15) Hypokalemia: Status: Acute Assessment and plan: 3.0 repleted - monitor (16) Chronic obstructive lung disease: Assessment and plan: Stable - oxygen and inhalers (17) Essential hypertension: Assessment and plan: Stable - continue home meds. 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 - waiting for placement - [facility] accepted will go 05/05/[address] Jim Subjective Subjective Patient reports: no new complaints, feels better, tolerating liquids well, tolerating a regular diet and afebrile Interval history since last seen: worked with PT and reambulated safely Exam Const General: cooperative, comfortable, no acute distress and frail appearing Nutritional Appearance: thin Orientation: alert, awake and oriented x3 Other: eating lunch during visit HENCA Head: normocephalic and atraumatic Mouth: oral mucosae normal Resp Effort & Inspection: normal respiratory effort, able to speak in complete sentences, no audible wheezes and no cough Skin General skin exam: no rashes or lesions noted Neuro General: patient alert, patient awake, patient oriented x3 and moves all extremities Speech: speech normal Psych Appearance: grossly normal Mental Status: mental status grossly normal Mood: congruent mood Affect: normal affect and sad Attitude: cooperative Thought Process: normal Insight: fair Judgment: fair Other: tears intermittently throughout exam when discussing loneliness and feeling unloved Objective Last Vital Signs Temp 36 C L 05/04/22 16:21 Pulse 82 05/04/22 16:21 Resp 18 05/04/22 16:21 BP 118/62 05/04/22 16:21 Pulse Ox 100 05/04/22 16:21 Laboratory Results - last 24 hr 05/04/22 05/04/22 05:56 05:56 WBC 3.12 L RBC 3.82 L Hgb 11.3 L Hct 34.3 L MCV 90 MCH 29.6 MCHC 32.9 RDW 16.0 H Plt Count 171 MPV 9.6 Immature Gran % 0.3 Neutrophils % 53.5 Lymphocytes % 31.1 Monocytes % 11.9 Eosinophils % 2.6 Basophils % 0.6 Nucleated RBC % 0.0 Absolute Neutrophils 1.67 Absolute Lymphocytes 0.97 L Absolute Monocytes 0.37 Absolute Eosinophils 0.08 Absolute Basophils 0.02 Sodium 142 Potassium 3.0 L Chloride 105 Carbon Dioxide 29.7 Anion Gap 7.3 BUN 21 H Creatinine 1.2 Est GFR (CKD-EPI 2020) 58.89 Glucose 94 Calcium 8.8 Magnesium 1.8
[2022-05-04] MEDS: Metoprolol 50 MG TAB PO (19:59)
[2022-05-04] MEDS: clonazePAM 0.5 MG TAB PO (19:59)
[2022-05-04] MEDS: Mometasone 220 MCG 14 DOSE INHALER 1 PUFF IH (20:03)
[2022-05-04] MEDS: Latanoprost 0.005% 2.5 ML BTL OP (21:57)
[2022-05-04] MEDS: Melatonin 3 MG TAB PO (21:58)
[2022-05-04] MEDS: MORPHine 4 MG/ML SYR 2 MG IVP (22:24)
[2022-05-05 03:28] VITALS: BP 136/62; PULSE 108; RESP 18; TEMP 36.8; O2SAT 99
[2022-05-05] MEDS: Levothyroxine 100 MCG TAB PO (05:53)
[2022-05-05 06:14] LABS: Abs Immature Grans 0.03 10^3/uL (0.0-0.06); Absolute Basophil Count 0.03 10^3/uL (0.0-0.2); Absolute Eosinophil Count 0.11 10^3/uL (0.0-0.7); Absolute Lymphocyte Count 1.02 10^3/uL (1.2-3.4); Absolute Neutrophil Count 2.43 10^3/uL (1.2-6.7); Basophils % 0.7; Eosinophils % 2.7; HCT 36.4 % (40.0-50.0); HGB 11.6 g/dL (13.5-17.5); Immature Grans % 0.7; Lymphocytes % 24.8; MCHC 31.9 % (32.0-36.0); MCV 91 fL (80-95); MPV 9.7 fL (8.0-11.0); Monocytes % 12.1; Platelet Count 183 10^3/uL (130-400); RDW-SD 53.3 fL; WBC 4.12 10^3/uL (4.4-10.8)
[2022-05-05 06:34] LABS: Anion Gap 5.9 mmol/L (3-11); BUN 20 mg/dL (7-18); CO2 30.1 mmol/L (21.0-32.0); CREATININE 1.1 mg/dL (0.70-1.30); Calcium 8.5 mg/dL (8.5-10.1); Chloride 106 mmol/L (98-107); Estimated GFR 65.38 (mL/min/1.73m2); Glucose 92 mg/dL (74-106); Magnesium 1.9 mg/dL (1.8-2.4); Potassium 3.1 mmol/L (3.5-5.1); Sodium 142 mmol/L (136-145)
[2022-05-05 07:40] VITALS: BP 123/67; PULSE 70; RESP 18; TEMP 36.1; O2SAT 100
[2022-05-05] MEDS: Metoprolol 50 MG TAB PO (08:02)
[2022-05-05] MEDS: Senna TAB 2 TAB PO (08:02)
[2022-05-05] MEDS: clonazePAM 0.5 MG TAB PO (08:02)
[2022-05-05] MEDS: Cefpodoxime 200 MG TAB PO (08:02)
[2022-05-05] MEDS: Mirabegron 50 MG TABCR PO (08:02)
[2022-05-05] MEDS: Pantoprazole 40 MG TABCR PO (08:03)
[2022-05-05] MEDS: Docusate Sodium 100 MG CAP PO (08:03)
[2022-05-05] MEDS: Lidocaine 5% Patch 1 PATCH TD (08:04)
[2022-05-05] MEDS: Dorzolamide 2% 10 ML BTL OP (08:04)
[2022-05-05] MEDS: Furosemide 20 MG TAB 40 MG PO (08:04)
[2022-05-05] MEDS: Normal Saline Flush 10 ML SYR IVP ×3 (08:05→13:22)
[2022-05-05] MEDS: Tiotropium Bromide-Respimat 10 PUFF INH IH (08:13)
[2022-05-05 08:30] VITALS: O2SAT 98
[2022-05-05] MEDS: Potassium Chloride 20 MEQ TABCR PO ×2 (08:56→13:22)
[2022-05-05] MEDS: POTASSIUM CHLORIDE 20 MEQ/100 ML BAG 50 MEQ IVPB (08:56)
--- NOTE | 2022-05-05 09:12 | PT.INTREAT ---
Date of service: 05/05/22 Time of Service: 08:34 PT Notes Visit Reasons: UTI,Dehydration,Falls Inpatient Physical Therapy Treatment Note [facility] Date: 05/05/2022 PRECAUTIONS: Activity as tolerated, fall SUBJECTIVE: Brenden is pleasant and agreeable to participate in PT. He states that he feels stiff in the morning and has a harder time getting around. OBJECTIVE: PAIN: Patient c/o occasional L thigh cramping pain with gait training BED MOBILITY/TRANSFERS: Sit-stand: SBA Stand-sit: SBA GAIT Assistive Device: FWW 4WW Weight bearing: Full Assist: SBA Distance: 100' with FWW + 150' with 4WW Deviation: Short step height and length, seated rest x1 THEREX: Patient was instructed in a LE strengthening program, completed in a seated position, to include: ankle pumps, ankle circles cw/ccw, LAQ, hip flexion and hip abduction. ASSESSMENT: Patient tolerated session without complaint. He tolerates 4WW well, and demonstrates steady gait and pacing. He continues to demonstrate limited activity tolerance, although is improving somewhat from yesterday morning's session. PLAN: Continue with global strengthening and general conditioning for improved mobility and activity tolerance. TREATMENT CODE/TIME: 26 minutes; 44029, [id number] (08:34)
--- NOTE | 2022-05-05 10:34 | PGE_ITS ---
Date of Service Date of service: 05/05/22 Time of Service: 10:34 Assessment and Plan Assessment and plan (1) UTI (urinary tract infection): Status: Acute Assessment and plan: suprapubic catheter in place (changed 05/03/22) urine cx 04/16/22 and 04/25/22 grew klebsiella pneumoniae, was Rx'd levofloxacin at home w/some concern of him taking this - doubt he was taking started cefpodoxime in ED, will continue UCx - e. coli - sensitivities pending - continue Cefpodoxime (2) Frailty: Status: Acute Assessment and plan: recommend SNF for senior care placement for safety concerns (3) Falls: Status: Acute Assessment and plan: recurrent and frequent pt aware of safety risks and agrees to placement at SNF, for senior care placement to be considered through the winter for safety concerns (4) Oxygen dependent: Status: Chronic Assessment and plan: no oxygen in use today during visit, breathing appropriate while eating, maintaining Sats (5) Goals of care, counseling/discussion: Status: Acute Assessment and plan: Bill agrees that he needs more assistance and does better in rehab setting will return to [facility] upon discharge consider hospice once settled at [facility] for additional care supports (6) Health care proxy on file: Status: Chronic Assessment and plan: Taisha, niece (7) Chronic dyspnea: Status: Acute Assessment and plan: continue morphine PRN (8) Chronic pain: Status: Chronic Assessment and plan: controlled today continue pain meds prn Qualifiers: Chronic pain type: chronic pain syndrome Qualified Code(s): G89.4 - Chronic pain syndrome (9) At high risk for falls: Status: Acute Assessment and plan: PT is working with him - walker - 2 person stand by (10) Pacemaker: Status: Chronic Assessment and plan: Functioning - no concerns (11) Generalized weakness: Status: Acute Assessment and plan: Very weak (12) COPD (chronic obstructive pulmonary disease): Status: Chronic Assessment and plan: Home O2 - here not using Oxygen and maintaining sats, however not much exertion used Qualifiers: COPD type: unspecified COPD Qualified Code(s): J44.9 - Chronic obstructive pulmonary disease, unspecified (13) Anxiety disorder: Status: Chronic Assessment and plan: continue scheduled clonazepam (14) Unexplained weight loss: Status: Acute Assessment and plan: last weight 15lbs; 03/02/22 179lbs, 08/15/21 177lbs, 04/19/21 184lbs continue to trend hospice eligible (15) Hypokalemia: Status: Acute Assessment and plan: 3.0 repleted - monitor (16) Chronic obstructive lung disease: Assessment and plan: Stable - oxygen and inhalers (17) Essential hypertension: Assessment and plan: Stable - continue home meds. 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 - waiting for placement - [facility] accepted will go 05/05/[address] Rodriguez Objective Last Vital Signs Temp 36.1 C L 05/05/22 07:40 Pulse 70 05/05/22 07:40 Resp 18 05/05/22 07:40 BP 123/67 05/05/22 07:40 Pulse Ox 98 05/05/22 08:30 Laboratory Results - last 24 hr 05/05/22 05/05/22 05:35 05:35 WBC 4.12 L RBC 4.00 L Hgb 11.6 L Hct 36.4 L MCV 91 MCH 29.0 MCHC 31.9 L RDW 16.0 H Plt Count 183 MPV 9.7 Immature Gran % 0.7 Neutrophils % 59.0 Lymphocytes % 24.8 Monocytes % 12.1 Eosinophils % 2.7 Basophils % 0.7 Nucleated RBC % 0.0 Absolute Neutrophils 2.43 Absolute Lymphocytes 1.02 L Absolute Monocytes 0.50 Absolute Eosinophils 0.11 Absolute Basophils 0.03 Sodium 142 Potassium 3.1 L Chloride 106 Carbon Dioxide 30.1 Anion Gap 5.9 BUN 20 H Creatinine 1.1 Est GFR (CKD-EPI 2020) 65.38 Glucose 92 Calcium 8.5 Magnesium 1.9
[2022-05-05 11:07] VITALS: BP 105/70; PULSE 62; RESP 18; TEMP 36.7; O2SAT 100
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
[2022-05-05] MEDS: ERTAPENEM 1 GM in Normal Saline 50 ML IVPB (13:24)
--- NOTE | 2022-05-05 14:58 | PDOC.CMDIS ---
- If Service Date Differs Date of service: 05/05/22 Time of Service: 14:58 LACE Index Scoring Tool - Questions: Length of Stay (in days): 2 Acuity (Admit via E.D.?): Yes Comorbidities: Congestive Heart Failure, Chronic Pulmonary Disease, Liver or Renal Disease E.D. Visits: 16 - Answers: Total Score: 14 Risk of Readmission: High Risk Care Management Discharge Reason for Hospitalization: Uti, frequent falls Discharge Plan: Brenden was transferred to [facility] today for short term rehab. He was transported via facility w/c van. He will follow up with facility providers, palliative care, and his discharge plan of care. Patient/Family Education Needs: Review discharge instructions and limitations, discussion of self care needs including ask me three. Services Needed at Discharge: Detention Facility ([facility]), Transportation (facility w/c van)
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
== END 2022-05-05 14:28 | disposition skilled nursing facility (03) ==
LOC: ER 14:22 → MS 18:41
PROVIDERS: Nurse Practitioner Family; Admitting Provider Internal Medicine; Emergency Provider Emergency Medicine; PCP Family Medicine; Visit Provider Internal Medicine
DX: T83.510A Infection and inflammatory reaction due to cystostomy catheter, initial encounter (principal); N39.0 Urinary tract infection, site not specified; I13.0 Hypertensive heart and chronic kidney disease with heart failure and stage 1 through stage 4 chronic kidney disease, or unspecified chronic kidney disease; R54 Age-related physical debility; I50.32 Chronic diastolic (congestive) heart failure; Z99.81 Dependence on supplemental oxygen; N18.9 Chronic kidney disease, unspecified; Z20.822 Contact with and (suspected) exposure to COVID-19; W19.XXXA Unspecified fall, initial encounter; M54.6 Pain in thoracic spine; Z79.899 Other long term (current) drug therapy; R29.6 Repeated falls; Z95.0 Presence of cardiac pacemaker; K21.9 Gastro-esophageal reflux disease without esophagitis; M54.50 Low back pain, unspecified; G89.29 Other chronic pain; E03.9 Hypothyroidism, unspecified; I49.5 Sick sinus syndrome; N40.1 Benign prostatic hyperplasia with lower urinary tract symptoms; R33.9 Retention of urine, unspecified; J44.9 Chronic obstructive pulmonary disease, unspecified; H40.9 Unspecified glaucoma; I48.20 Chronic atrial fibrillation, unspecified; I70.203 Unspecified atherosclerosis of native arteries of extremities, bilateral legs; B96.20 Unspecified Escherichia coli [E. coli] as the cause of diseases classified elsewhere; E87.6 Hypokalemia; Z79.02 Long term (current) use of antithrombotics/antiplatelets; F41.9 Anxiety disorder, unspecified; R63.4 Abnormal weight loss; Z68.22 Body mass index [BMI] 22.0-22.9, adult; Z79.891 Long term (current) use of opiate analgesic
CPT/HCPCS: 36415; 80048; 80053; 87077; 87635; 93005; 94640; 96361; 96365; 96366; 96367; 96368; 96374; 97110; 97163; 97530; 99285; 70450; 71045; 72125; 72128; 81003; 81015; 83735; 85025; 87086; 87186; 93010; 94667; 99217; 99219; 99225; G0378; J0131; J1335; J2270; J3475; J3480; J3490

== ENCOUNTER 2022-05-20 12:18 | Outpatient (REF) | payer MEDICARE, MEDICAID, SELFPAY ==
[2022-05-20 12:51] LABS: Bilirubin Negative (Negative); Blood Large (Negative); Clarity Cloudy (Clear); Glucose Negative (Negative); Ketones Negative (Negative); Leukocyte Esterase Moderate (Negative); Nitrite Positive (Negative); Specific Gravity 1.025 (1.005-1.025); Urobilinogen 0.2 EU/dL (Up TO 0.2)
[2022-05-20 12:54] LABS: Abs Immature Grans 0.02 10^3/uL (0.0-0.06); Absolute Basophil Count 0.02 10^3/uL (0.0-0.2); Absolute Eosinophil Count 0.15 10^3/uL (0.0-0.7); Absolute Monocyte Count 0.52 10^3/uL (0.1-0.8); Basophils % 0.5; Eosinophils % 3.6; HCT 39.6 % (40.0-50.0); HGB 12.3 g/dL (13.5-17.5); Immature Grans % 0.5; Lymphocytes % 29.2; MCH 29.1 pg (27.0-33.0); MCHC 31.1 % (32.0-36.0); MCV 94 fL (80-95); MPV 10.4 fL (8.0-11.0); Monocytes % 12.7; Neutrophils % 53.5; Platelet Count 235 10^3/uL (130-400); RBC 4.22 10^6/uL (4.36-5.78); RDW 16.3 % (11.8-14.1); RDW-SD 56.2 fL; WBC 4.11 10^3/uL (4.4-10.8)
[2022-05-20 12:59] LABS: Anion Gap 6.6 mmol/L (3-11); BUN 19 mg/dL (7-18); CO2 31.4 mmol/L (21.0-32.0); CREATININE 1.5 mg/dL (0.70-1.30); Calcium 8.9 mg/dL (8.5-10.1); Chloride 103 mmol/L (98-107); Estimated GFR 45.06 (mL/min/1.73m2); Glucose 71 mg/dL (74-106); Potassium 3.4 mmol/L (3.5-5.1); Sodium 141 mmol/L (136-145)
[2022-05-20 13:01] LABS: Bacteria Moderate HPF (Negative); C & S Indicated? C&S Done As Ordered; Crystals Negative HPF (Negative); Epithelial Cells Few HPF (Negative); Mucus Trace (Negative); RBC >50 HPF (0-2); WBC >50 HPF (0-5)
== END 2022-05-20 12:19 | disposition home or self-care (01) ==
LOC: LBN 12:18
PROVIDERS: PCP Family Medicine; Visit Provider Family Medicine
DX: N39.0 Urinary tract infection, site not specified (principal); N18.9 Chronic kidney disease, unspecified
CPT/HCPCS: 80048; 81003; 81015; 85025; 87086

== ENCOUNTER 2022-05-20 17:52 | Emergency (ER) | payer MEDICARE, MEDICAID, SELFPAY ==
[2022-05-20 17:58] VITALS: BP 126/70; PULSE 78; RESP 26; TEMP 36.4; O2SAT 97
[2022-05-20] MEDS: Lidocaine 2% Jelly 11 ML SYR UR ×2 (19:06→21:10)
[2022-05-20 19:07] LABS: Lactate 1.1 mmol/L (0.6-1.4)
[2022-05-20 19:09] LABS: Abs Immature Grans 0.02 10^3/uL (0.0-0.06); Absolute Basophil Count 0.02 10^3/uL (0.0-0.2); Absolute Eosinophil Count 0.17 10^3/uL (0.0-0.7); Absolute Lymphocyte Count 1.41 10^3/uL (1.2-3.4); Absolute Monocyte Count 0.56 10^3/uL (0.1-0.8); Absolute Neutrophil Count 2.08 10^3/uL (1.2-6.7); Basophils % 0.5; HCT 36.4 % (40.0-50.0); HGB 11.3 g/dL (13.5-17.5); Immature Grans % 0.5; Lymphocytes % 33.1; MCV 93 fL (80-95); MPV 10.1 fL (8.0-11.0); Monocytes % 13.1; Neutrophils % 48.8; Platelet Count 227 10^3/uL (130-400); RDW-SD 54.5 fL; WBC 4.26 10^3/uL (4.4-10.8)
[2022-05-20 19:15] LABS: Bilirubin Negative (Negative); Blood Large (Negative); Clarity Cloudy (Clear); Glucose Negative (Negative); Ketones Negative (Negative); Leukocyte Esterase Small (Negative); Nitrite Positive (Negative); Specific Gravity 1.025 (1.005-1.025); Urobilinogen 0.2 EU/dL (Up TO 0.2)
[2022-05-20 19:32] LABS: ALT 19 U/L (16-63); AST 28 U/L (15-37); Albumin 2.8 g/dL (3.4-5.0); Alkaline Phosphatase 180 U/L (46-116); Anion Gap 7.3 mmol/L (3-11); BUN 21 mg/dL (7-18); Bilirubin, Total 0.6 mg/dL (0.2-1.0); CO2 32.7 mmol/L (21.0-32.0); CREATININE 1.6 mg/dL (0.70-1.30); Calcium 8.7 mg/dL (8.5-10.1); Chloride 103 mmol/L (98-107); Glucose 89 mg/dL (74-106); Potassium 3.8 mmol/L (3.5-5.1); Sodium 143 mmol/L (136-145); Total Protein 6.7 g/dL (6.4-8.2)
[2022-05-20 19:33] LABS: Epithelial Cells Rare HPF (Negative); RBC >50 HPF (0-2); WBC >50 HPF (0-5)
[2022-05-20 19:34] LABS: Bacteria Rare HPF (Negative); C & S Indicated? Yes; Crystals Negative HPF (Negative); Mucus Negative (Negative); Other Cells Moderate Yeast (Negative)
--- NOTE | 2022-05-20 19:45 | DI.CT_ITS ---
Exam(s) CT ABDOMEN PELVIS WO EXAM: CT ABDOMEN PELVIS WO CLINICAL HISTORY: Suprapubic pain TECHNIQUE: COMPARISON: CT CT ABDOMEN PELVIS W from 04/25/2022 FINDINGS: CT examination of the abdomen and pelvis was performed without contrast administration. Images obtained through the lung bases again show right pleural effusion as noted on prior CT of . The liver appears normal with no evidence of a focal mass. Spleen is unremarkable in appearance except for couple of calcifications consistent with healed granu lar.. Gallbladder has been surgically removed, bile ducts are unremarkable. Pancreas is unremarkable in appearance. Adrenals appear normal bilaterally. There is questionable tiny left midpole nonobstructing calculus, otherwise kidneys are unremarkable a ppearance with no evidence hydronephrosis or nephrolithiasis. Presumed incidental right lower pole r enal cyst noted. There is a suprapubic catheter in place and the urinary bladder is empty period. There is no evidence of abdominal or pelvic adenopathy. Abdominal aorta is of normal diameter and no abnormality is seen involving major visceral branches.. Appendix is normal. No evidence diverticulitis or bowel obstruction. Fat containing bilateral inguinal hernia seen. Impression: No evidence of acute intra-abdominal process. Suprapubic catheter in good position .. RADIATION DOSE DELIVERED: Total DLP Total DLP DATA REPOSITORY: All CT scans at this facility are submitted to the National Radiology Data Registry (NRDR) Dose Index Registry (DIR) with the [employer] ([employer]). RADIATION OPTIMIZATION: All CT scans at this facility use at least one of these dose optimization te chniques: automated exposure control; mA and/or kV adjustment per patient size (includes targeted exa ms where dose is matched to clinical indication); or iterative reconstruction. Fat containing bilater al
[2022-05-20] MEDS: Normal Saline 500 ML IV (19:49)
--- NOTE | 2022-05-20 20:36 | DI.VRAD_ITS ---
PROCEDURE INFORMATION: Exam: CT Abdomen And Pelvis Without Contrast Exam date and time: 05/20/2022 20:07 Age: 87 years old Clinical indication: Abdominal pain; Patient HX: Suprapubic pain TECHNIQUE: Imaging protocol: Computed tomography of the abdomen and pelvis without contrast. COMPARISON: CT ABDOMEN PELVIS W 04/25/2022 11:05 FINDINGS: Tubes, catheters and devices: Cardiac pacemaker leads are partially seen. Pleural spaces: Moderate right pleural fluid is similar to prior. Adjacent mild compressive atelectasis also similar. Mild compressive atelectasis left lung base also similar. Probable emphysema also similar. Liver: No hepatic masses on noncontrast imaging. Portions of the liver are micronodular which is similar to prior. Likely cirrhosis. Gallbladder and bile ducts: Cholecystectomy. No significant biliary dilation or radiopaque stones in the biliary tree. Pancreas: No gross pathology in the pancreas on noncontrast imaging. Spleen: Small splenic calcifications compatible with benign granulomata. Adrenal glands: No mass. Kidneys and ureters: Punctate nonobstructive left nephrolithiasis versus distal arterial calcifications. No right nephrolithiasis. No right hydronephrosis. No left hydronephrosis. Stomach and bowel: Colonic diverticulosis without diverticulitis. No gross pathology in the small bowel without IV contrast. Appendix: No evidence of appendicitis. Intraperitoneal space: Trace free fluid right upper quadrant is more pronounced. Vasculature: Atherosclerosis. No aortic aneurysm. Lymph nodes: No significantly enlarged lymph nodes. Urinary bladder: Suprapubic catheter, satisfactory position. The bladder is completely decompressed in the wall is difficult to assess. Reproductive: Moderate prostatic enlargement. Bones/joints: Chronic bony changes with no acute fracture. Soft tissues: Moderate right inguinal hernia containing fat, small left inguinal hernia containing fat, slightly more pronounced particularly on the right. Mild ventral pelvic wall subcutaneous fat without a focal fluid collection. Other findings: Mild edema in the pelvis without a renate fluid collection. IMPRESSION: 1. Suprapubic catheter, satisfactory position. The bladder is completely decompressed in the wall is difficult to assess. 2. Additional findings as described overall very similar to previous imaging. Dictated and Authenticated by: Denice Walton MD. Ordering:CHARLENE Menchaca MD
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
[2022-05-20] MEDS: MacroBID 100 MG CAP PO (21:09)
[2022-05-20 21:12] VITALS: PULSE 63; RESP 22; TEMP 37; O2SAT 97
--- NOTE | 2022-06-01 15:20 | NUR.NOTE ---
Nursing Note: [facility]
== END 2022-05-20 21:09 | disposition skilled nursing facility (03) ==
PROVIDERS: Emergency Provider Nurse Practitioner Family; PCP Family Medicine
DX: N39.0 Urinary tract infection, site not specified (principal); R79.89 Other specified abnormal findings of blood chemistry; D64.9 Anemia, unspecified; I48.91 Unspecified atrial fibrillation; D72.829 Elevated white blood cell count, unspecified; Z79.51 Long term (current) use of inhaled steroids
CPT/HCPCS: 80053; 96361; 96374; 99284; 74176; 81003; 81015; 83605; 85025; 87086; J0131

== ENCOUNTER 2022-06-13 16:07 | Inpatient (IN) | payer MEDICARE, MEDICAID, SELFPAY ==
[2022-06-13] VITALS (100 sets, daily range): BP systolic 79–127; BP diastolic 40–65; PULSE 68–176; RESP 15–37; TEMP 36.9–37.3; O2SAT 88–99
--- NOTE | 2022-06-13 16:00 | RT.EKG_ITS ---
APPROVED REPORT Exam: Resting ECG Reason for Exam: respiratory distress Patient Location: E HR:157 bpm ECG Measurements Heart Rate 157 AXIS AZ [id number] P [id number] QRSd 86 QRS 8 QT 288 T 155 QTc 467 Conclusion Atrial fibrillation with rapid V-rate...A-rate 432 Ventricular premature complex...V complex w/ short R-R interval Low voltage, extremity leads...all extremity leads <0.5mV Repolarization abnormality, prob rate related...ST dep, T neg, tachycardia no stemi, motion artifact
[2022-06-13] MEDS: Aspirin 81 MG CHEW 324 MG CH (16:37)
[2022-06-13] MEDS: Labetalol 100 MG/20 ML VIAL 20 MG IVP (16:42)
[2022-06-13 16:52] LABS: Abs Immature Grans 0.04 10^3/uL (0.0-0.06); Absolute Basophil Count 0.01 10^3/uL (0.0-0.2); Absolute Eosinophil Count 0.01 10^3/uL (0.0-0.7); Absolute Lymphocyte Count 0.58 10^3/uL (1.2-3.4); Absolute Neutrophil Count 6.75 10^3/uL (1.2-6.7); Basophils % 0.1; Eosinophils % 0.1; HCT 36.2 % (40.0-50.0); HGB 11.6 g/dL (13.5-17.5); Immature Grans % 0.5; Lymphocytes % 7.4; MCV 91 fL (80-95); MPV 9.8 fL (8.0-11.0); Monocytes % 6.3; Neutrophils % 85.6; Platelet Count 247 10^3/uL (130-400); RDW 16.5 % (11.8-14.1); RDW-SD 55.7 fL; WBC 7.89 10^3/uL (4.4-10.8)
[2022-06-13 17:05] LABS: INR 1.4 (0.9-1.1); PTT Activated 32.8 sec (21.0-27.5); Prothrombin Time 13.8 sec (9.3-11.0)
[2022-06-13 17:15] LABS: ALT 9 U/L (16-63); AST 22 U/L (15-37); Albumin 2.9 g/dL (3.4-5.0); Alkaline Phosphatase 154 U/L (46-116); Anion Gap 7.5 mmol/L (3-11); BUN 21 mg/dL (7-18); Bilirubin, Total 1.4 mg/dL (0.2-1.0); CO2 31.5 mmol/L (21.0-32.0); CREATININE 1.5 mg/dL (0.70-1.30); Calcium 9.2 mg/dL (8.5-10.1); Chloride 100 mmol/L (98-107); Estimated GFR 45.06 (mL/min/1.73m2); Glucose 129 mg/dL (74-106); Magnesium 1.9 mg/dL (1.8-2.4); NT-proBNP 5203 pg/mL (<300); Potassium 3.5 mmol/L (3.5-5.1); Sodium 139 mmol/L (136-145); Total Protein 7.3 g/dL (6.4-8.2); Troponin I < 50 ng/L (<or=60)
[2022-06-13] MEDS: dilTIAZem 25 MG/5 ML VIAL 10 MG IVP (17:15)
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
--- NOTE | 2022-06-13 17:19 | ED.GENADUL_ITS ---
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 Albumin (3.4-5.0) g/dL 2.9 L TSH (0.36-3.74) uIU/mL 1.90 Critical Care Time Critical Care Time Critical Care Time: Yes Total Critical Care Time: 35 Attestation: Upon my evaluation, this patient had a high probability of clinically significant, life-threatening deterioration due to their current medical conditions, which required my direct attention, intervention, and personal management. I have personally provided greater than 30 minutes of critical care time exclusive of the time spend on separately billable procedures. Time includes obtaining a history, examining the patient, pulse oximetry, review of laboratory data, radiology results, discussion with consultants, arranging urgent treatment with development of a management plan, evaluation of patient's response to treatment, and monitoring for potential decompensation. Interventions were performed as documented above.
[2022-06-13 17:20] LABS: D-Dimer 2178 ng/mlFEU (<500)
[2022-06-13] MEDS: Normal Saline 1,000 ML 1000 ML IV (17:30)
[2022-06-13 17:35] LABS: COVID-19 PCR Negative (Negative); Influenza A PCR Negative (Negative); Influenza B PCR Negative (Negative); RSV PCR Negative (Negative)
[2022-06-13 17:37] LABS: Source Nasopharynx
[2022-06-13] MEDS: Omnipaque 350 MG/ML 100 ML BTL IJ (18:21)
[2022-06-13] MEDS: Normal Saline - Diluent 50 ML VIAL IV (18:22)
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
[2022-06-13] MEDS: dilTIAZem 125 MG in Normal Saline 100 ML IV (18:58)
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
[2022-06-13] MEDS: AZITHROMYCIN 500 MG in Normal Saline 250 ML 250 MG IVPB (19:46)
[2022-06-13] MEDS: cefTRIAXone 2 GM/50 ML BAG IVPB (19:47)
[2022-06-13 19:52] LABS: Bilirubin Negative (Negative); Blood Moderate (Negative); Clarity Clear (Clear); Glucose Negative (Negative); Ketones Negative (Negative); Leukocyte Esterase Trace (Negative); Nitrite Positive (Negative); Specific Gravity <= 1.005 (1.005-1.025)
[2022-06-13 20:04] LABS: Bacteria Moderate HPF (Negative); Epithelial Cells Rare HPF (Negative); Other Cells Few Yeast (Negative)
[2022-06-13 20:05] LABS: C & S Indicated? Yes; Casts Negative LPF (Negative); Crystals Negative HPF (Negative); Mucus Trace (Negative)
[2022-06-13 20:14] LABS: Troponin I 93 ng/L (<or=60)
[2022-06-14] VITALS (24 sets, daily range): BP systolic 90–114; BP diastolic 45–78; PULSE 69–147; RESP 10–31; TEMP 36.6–37.7; O2SAT 85–99
[2022-06-14 00:19] LABS: Troponin I 75 ng/L (<or=60)
[2022-06-14] MEDS: Metoprolol 50 MG TAB 25 MG PO ×3 (02:46→14:08)
[2022-06-14] MEDS: Levothyroxine 100 MCG TAB PO (05:45)
[2022-06-14 06:50] LABS: HCT 31.4 % (40.0-50.0); HGB 9.9 g/dL (13.5-17.5); MCH 28.8 pg (27.0-33.0); MCHC 31.5 % (32.0-36.0); MCV 91 fL (80-95); MPV 10.4 fL (8.0-11.0); Platelet Count 202 10^3/uL (130-400); RBC 3.44 10^6/uL (4.36-5.78); RDW 16.9 % (11.8-14.1); RDW-SD 56.9 fL
[2022-06-14 07:15] LABS: Lab Add On Test DONE
[2022-06-14 07:16] LABS: AST 17 U/L (15-37); Albumin 2.3 g/dL (3.4-5.0); Alkaline Phosphatase 129 U/L (46-116); Anion Gap 7.2 mmol/L (3-11); BUN 18 mg/dL (7-18); Bilirubin, Total 0.9 mg/dL (0.2-1.0); CO2 28.8 mmol/L (21.0-32.0); CREATININE 1.3 mg/dL (0.70-1.30); Calcium 8.5 mg/dL (8.5-10.1); Chloride 103 mmol/L (98-107); Glucose 101 mg/dL (74-106); Magnesium 1.9 mg/dL (1.8-2.4); Potassium 3.5 mmol/L (3.5-5.1); Sodium 139 mmol/L (136-145); Total Protein 6.1 g/dL (6.4-8.2)
[2022-06-14 07:30] LABS: ALT 7 U/L (16-63)
[2022-06-14 07:35] LABS: Troponin I 50 ng/L (<or=60)
[2022-06-14 08:02] LABS: Lab Add On Test DONE
[2022-06-14 08:42] LABS: Procalcitonin 1.2 ng/mL
[2022-06-14] MEDS: DOXYCYCLINE 100 MG in Normal Saline 100 ML IVPB ×2 (08:57→20:32)
[2022-06-14] MEDS: Lidocaine 5% Patch 1 PATCH TD (08:57)
[2022-06-14] MEDS: Dorzolamide 2% 10 ML BTL OU (08:58)
[2022-06-14] MEDS: Mometasone 220 MCG 14 DOSE INHALER 2 PUFF IH ×2 (08:59→20:33)
[2022-06-14] MEDS: Mirabegron 50 MG TABCR PO (09:00)
[2022-06-14] MEDS: clonazePAM 0.5 MG TAB PO ×2 (09:00→20:32)
[2022-06-14] MEDS: Loratidine 10 MG TAB PO (09:00)
[2022-06-14] MEDS: Furosemide 20 MG TAB 40 MG PO (09:00)
[2022-06-14] MEDS: Pantoprazole 40 MG TABCR PO (09:00)
--- NOTE | 2022-06-14 09:00 | W.PM.PROGNOT ---
Date of Service Date of service: 06/14/22 Time of Service: 09:00 Assessment and Plan Assessment and plan (1) Atrial fibrillation with rapid ventricular response: Status: Acute Assessment and plan: Rapid atrial fibrillation likely precipitated by his acute infections. Continue to adjust metoprolol dose. Hopefully we can avoid resumption of IV diltiazem given his heart failure with reduced ejection fraction. However if he becomes tachycardic and has sustained at 120 bpm or faster I will resume his IV diltiazem. Continue Pradaxa. Troponins transiently minimally elevated secondary to rapid atrial fibrillation rate. No evidence for acute myocardial infarction. We will ask specialty clinic to interrogate his pacemaker Critical care time spent interviewing and examining the patient, reviewing studies, discussing case with patient's nurse and consulting physicians was 30 minutes (2) Chronic atrial fibrillation: Status: Chronic Assessment and plan: As above (3) Multifocal pneumonia: Status: Acute Assessment and plan: Continue Rocephin and doxycycline. Check MRSA screen, check urine strep antigen and Legionella and attempt to obtain sputum culture. Can use DuoNeb on a as needed basis. He does not seem to be actively wheezing and has has been tachycardic from his atrial fibrillation I would like to avoid excessive beta agonist effect. However we will continue his Spiriva as well as his Flovent. Encourage cough and deep breathing. Acapella an incentive spirometer has been added. (4) UTI (urinary tract infection): Start date: 06/13/22 Status: Acute Assessment and plan: Urine and blood cultures been obtained. Patient's been started on Rocephin. Will ask urology clinic to change his suprapubic catheter (5) Tachycardia-bradycardia: (6) Pacemaker: Status: Chronic Assessment and plan: In place but no paced beats noted. We will request interrogation of his pacemaker. (7) Spinal stenosis: Status: Chronic Assessment and plan: We will continue outpatient pain management. Watch for oversedation. (8) BPH (benign prostatic hyperplasia): Status: Chronic Assessment and plan: We will ask urology to change a suprapubic catheter in light of his urinary tract infection. (9) COPD (chronic obstructive pulmonary disease): Status: Chronic Assessment and plan: Continue Spiriva and Flovent use DuoNeb as needed Qualifiers: COPD type: unspecified COPD Qualified Code(s): J44.9 - Chronic obstructive pulmonary disease, unspecified (10) DVT prophylaxis: Status: Inactive Assessment and plan: Patient is currently on Pradaxa (11) Discharge planning issues: Status: Resolved Assessment and plan: Transfer back to [facility] once his atrial fibrillation is under control and his infections are brought under control. Subjective Subjective Interval history since last seen: patient has known chronic afib (on Toprol and Pradaxa) , HFREF (LVEF 45-50% w/ normal size LV, mod. AI, mild MR, mild TR and mildly dilated RV w/ normal RV fxn), pacemaker, who has COPD, chronic urinary obstruction from BPH who has indweling suprapubic cathter and was sent to ED last night from [facility] d/t increased dyspnea, pulling of his chest and noted to be hypoxemic and w/ perioral cyanosis. Evaluation in the ER included routine labs, CTA chest, EKG. He was found to be in rapid atrial fibrilation @ 162 bpm w/ BP 127/53 and tachypneic w/ RR 30 and SPO2 OF 95% on 3 LPM. CTA of chest showed multifocal pneumonia w/ consolidations in RLL, LLL and left lingula as well as bilateral pleural effusions R>L but no PE or aneurysm. EKG demonstrated afib @ 157 bpm w/ lateral ST depression and IVCD. Troponin was initially normal at <50 but mary to 93 before coming down to 50 this morning. BNP was elevated at 5300. BUN and creatinine were elevated at 21 and 1.5 which were slightly elevated over his baseline but are now down to 18 and 1.3 today. He was treated w/ labetolol 20 mg IVP and given diltiazem 10 mg IVP and put on diltiazem drip at 5 mg/hr which was titrated up to 10 mg/hr but d/t hypotension his diltiazem drip was stopped. he has been restarted on lopressor 25 mg q6h (he had been on lopressor 50 mg bid at the [facility]). For his pneumonia and UTI he was started on Rocephin (given 2 gm in the ER along w/ azithromycin 500 mg) but was continued on Rocephin 1 gm and doxycycline 100 mg iv q12h. He was not given iv lasix but has been resumed on his usual dose 40 mg bid. I have added low dose spironolactone to his HF regimen. Exam Narrative Exam Narrative: Dino is thin and frail appearing.He is not in any acute respiratory distress. Respirations are nonlabored he is able to talk in complete paragraphs. Neck is supple no overt JVD Lungs with bibasilar rales no rhonchi anterior antonio are clear in the upper [place]io. Abdomen soft normal bowel sounds no bruits Lower extremities 1+ pitting edema both feet and ankles no cyanosis Objective Last Vital Signs Temp 36.9 C 06/14/22 03:00 Pulse 99 H 06/14/22 05:51 Resp 31 H 06/14/22 05:51 BP 103/62 06/14/22 05:51 Pulse Ox 88 L 06/14/22 03:01 Laboratory Results - last 24 hr 06/13/22 06/13/22 06/13/22 16:32 16:32 16:32 WBC 7.89 RBC 4.00 L Hgb 11.6 L Hct 36.2 L MCV 91 MCH 29.0 MCHC 32.0 RDW 16.5 H Plt Count 247 MPV 9.8 Immature Gran % 0.5 Neutrophils % 85.6 Lymphocytes % 7.4 Monocytes % 6.3 Eosinophils % 0.1 Basophils % 0.1 Nucleated RBC % 0.0 Absolute Neutrophils 6.75 H Absolute Lymphocytes 0.58 L Absolute Monocytes 0.50 Absolute Eosinophils 0.01 Absolute Basophils 0.01 PT 13.8 H INR 1.4 H APTT 32.8 H D-Dimer 2178 H Sodium 139 Potassium 3.5 Chloride 100 Carbon Dioxide 31.5 Anion Gap 7.5 BUN 21 H Creatinine 1.5 H Est GFR (CKD-EPI 2020) 45.06 Glucose 129 H Calcium 9.2 Magnesium 1.9 Total Bilirubin 1.4 H AST 22 ALT 9 L Alkaline Phosphatase 154 H Troponin I < 50 NT-Pro-B Natriuret Pep 5203 H Total Protein 7.3 Albumin 2.9 L Procalcitonin TSH 1.90 Urine Color Urine Clarity Urine pH Ur Specific [place] Urine Protein Urine Ketones Urine Blood Urine Nitrite Urine Bilirubin Urine Urobilinogen Ur Leukocyte Esterase Urine RBC Urine WBC Ur Epithelial Cells Urine Crystals Urine Bacteria Urine Casts Urine Mucus Urine Other Ur Culture Indicated? Urine Glucose COVID-19 Source SARS-CoV-2 (PCR) Influenza Type A (PCR) Influenza Type B (PCR) RSV (PCR) Add-On Test Request 06/13/22 06/13/22 06/13/22 16:52 19:30 19:37 WBC RBC Hgb Hct MCV MCH MCHC RDW Plt Count MPV Immature Gran % Neutrophils % Lymphocytes % Monocytes % Eosinophils % Basophils % Nucleated RBC % Absolute Neutrophils Absolute Lymphocytes Absolute Monocytes Absolute Eosinophils Absolute Basophils PT INR APTT D-Dimer Sodium Potassium Chloride Carbon Dioxide Anion Gap BUN Creatinine Est GFR (CKD-EPI 2020) Glucose Calcium Magnesium Total Bilirubin AST ALT Alkaline Phosphatase Troponin I 93 H* NT-Pro-B Natriuret Pep Total Protein Albumin Procalcitonin TSH Urine Color Yellow Urine Clarity Clear Urine pH 6.0 Ur Specific [place] <= 1.005 Urine Protein 30 H Urine Ketones Negative Urine Blood Moderate H Urine Nitrite Positive H Urine Bilirubin Negative Urine Urobilinogen 1.0 H Ur Leukocyte Esterase Trace H Urine RBC 5-10 H Urine WBC 10-20 H Ur Epithelial Cells Rare Urine Crystals Negative Urine Bacteria Moderate Urine Casts Negative Urine Mucus Trace Urine Other Few Yeast Ur Culture Indicated? Yes Urine Glucose Negative COVID-19 Source Nasopharynx SARS-CoV-2 (PCR) Negative Influenza Type A (PCR) Negative Influenza Type B (PCR) Negative RSV (PCR) Negative Add-On Test Request 06/13/22 06/13/22 06/14/22 19:56 23:46 05:38 WBC RBC Hgb Hct MCV MCH MCHC RDW Plt Count MPV Immature Gran % Neutrophils % Lymphocytes % Monocytes % Eosinophils % Basophils % Nucleated RBC % Absolute Neutrophils Absolute Lymphocytes Absolute Monocytes Absolute Eosinophils Absolute Basophils PT INR APTT D-Dimer Sodium 139 Potassium 3.5 Chloride 103 Carbon Dioxide 28.8 Anion Gap 7.2 BUN 18 Creatinine 1.3 Est GFR (CKD-EPI 2020) 53.50 Glucose 101 Calcium 8.5 Magnesium 1.9 Total Bilirubin 0.9 AST 17 ALT 7 L Alkaline Phosphatase 129 H Troponin I Cancelled 75 H* NT-Pro-B Natriuret Pep Total Protein 6.1 L Albumin 2.3 L Procalcitonin TSH Urine Color Urine Clarity Urine pH Ur Specific [place] Urine Protein Urine Ketones Urine Blood Urine Nitrite Urine Bilirubin Urine Urobilinogen Ur Leukocyte Esterase Urine RBC Urine WBC Ur Epithelial Cells Urine Crystals Urine Bacteria Urine Casts Urine Mucus Urine Other Ur Culture Indicated? Urine Glucose COVID-19 Source SARS-CoV-2 (PCR) Influenza Type A (PCR) Influenza Type B (PCR) RSV (PCR) Add-On Test Request 06/14/22 06/14/22 06/14/22 05:38 05:38 05:38 WBC 9.50 RBC 3.44 L Hgb 9.9 L Hct 31.4 L MCV 91 MCH 28.8 MCHC 31.5 L RDW 16.9 H Plt Count 202 MPV 10.4 Immature Gran % Neutrophils % Lymphocytes % Monocytes % Eosinophils % Basophils % Nucleated RBC % Absolute Neutrophils Absolute Lymphocytes Absolute Monocytes Absolute Eosinophils Absolute Basophils PT INR APTT D-Dimer Sodium Potassium Chloride Carbon Dioxide Anion Gap BUN Creatinine Est GFR (CKD-EPI 2020) Glucose Calcium Magnesium Total Bilirubin AST ALT Alkaline Phosphatase Troponin I 50 NT-Pro-B Natriuret Pep Total Protein Albumin Procalcitonin TSH Urine Color Urine Clarity Urine pH Ur Specific [place] Urine Protein Urine Ketones Urine Blood Urine Nitrite Urine Bilirubin Urine Urobilinogen Ur Leukocyte Esterase Urine RBC Urine WBC Ur Epithelial Cells Urine Crystals Urine Bacteria Urine Casts Urine Mucus Urine Other Ur Culture Indicated? Urine Glucose COVID-19 Source SARS-CoV-2 (PCR) Influenza Type A (PCR) Influenza Type B (PCR) RSV (PCR) Add-On Test Request DONE 06/14/22 06/14/22 05:38 05:38 WBC RBC Hgb Hct MCV MCH MCHC RDW Plt Count MPV Immature Gran % Neutrophils % Lymphocytes % Monocytes % Eosinophils % Basophils % Nucleated RBC % Absolute Neutrophils Absolute Lymphocytes Absolute Monocytes Absolute Eosinophils Absolute Basophils PT INR APTT D-Dimer Sodium Potassium Chloride Carbon Dioxide Anion Gap BUN Creatinine Est GFR (CKD-EPI 2020) Glucose Calcium Magnesium Total Bilirubin AST ALT Alkaline Phosphatase Troponin I NT-Pro-B Natriuret Pep Total Protein Albumin Procalcitonin 1.2 TSH Urine Color Urine Clarity Urine pH Ur Specific [place] Urine Protein Urine Ketones Urine Blood Urine Nitrite Urine Bilirubin Urine Urobilinogen Ur Leukocyte Esterase Urine RBC Urine WBC Ur Epithelial Cells Urine Crystals Urine Bacteria Urine Casts Urine Mucus Urine Other Ur Culture Indicated? Urine Glucose COVID-19 Source SARS-CoV-2 (PCR) Influenza Type A (PCR) Influenza Type B (PCR) RSV (PCR) Add-On Test Request DONE
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
[2022-06-14] MEDS: Spironolactone 25 MG TAB 12.5 MG PO (10:51)
[2022-06-14] MEDS: Potassium Chloride Liquid 20 MEQ PKT PO (10:51)
[2022-06-14] MEDS: fentaNYL 50 MCG PATCH TD (10:51)
[2022-06-14] MEDS: Furosemide 40 MG/4 ML VIAL IVP (16:22)
--- NOTE | 2022-06-14 18:42 | NUR.NOTE ---
pt transferred from ICU to [facility] to room 214. VSS, Hr irregular, Lungs clear. Occasional wet cough, +BS, pulses WNL, Skin Intact, scab to Left head, supra pubic cath. Oriented pt to room and call light. Nursing Note:
[2022-06-14] MEDS: cefTRIAXone 1 GM/50 ML BAG IVPB (19:37)
[2022-06-14] MEDS: Normal Saline Flush 10 ML SYR IVP (19:38)
[2022-06-14] MEDS: Patch Removal 1 EACH TP (20:31)
[2022-06-14] MEDS: Melatonin 3 MG TAB PO (20:32)
[2022-06-14] MEDS: Docusate Sodium 100 MG CAP PO (20:32)
[2022-06-14] MEDS: Latanoprost 0.005% 2.5 ML BTL OU (20:35)
[2022-06-14] MEDS: Metoprolol 12.5 MG TAB 37.5 MG PO (21:44)
[2022-06-14] MEDS: Acetaminophen 325 MG TAB PO (21:44)
[2022-06-15] VITALS (12 sets, daily range): BP systolic 94–145; BP diastolic 56–82; PULSE 66–137; RESP 16–22; TEMP 36.2–37.4; O2SAT 95–100
[2022-06-15] MEDS: Metoprolol 12.5 MG TAB 37.5 MG PO ×4 (03:55→21:44)
[2022-06-15] MEDS: Levothyroxine 100 MCG TAB PO (05:43)
[2022-06-15 07:15] LABS: Abs Immature Grans 0.03 10^3/uL (0.0-0.06); Absolute Basophil Count 0.01 10^3/uL (0.0-0.2); Absolute Eosinophil Count 0.17 10^3/uL (0.0-0.7); Absolute Lymphocyte Count 1.04 10^3/uL (1.2-3.4); Absolute Monocyte Count 1.03 10^3/uL (0.1-0.8); Absolute Neutrophil Count 4.85 10^3/uL (1.2-6.7); Basophils % 0.1; Eosinophils % 2.4; HCT 30.9 % (40.0-50.0); HGB 9.8 g/dL (13.5-17.5); Immature Grans % 0.4; Lymphocytes % 14.6; MCH 28.7 pg (27.0-33.0); MCHC 31.7 % (32.0-36.0); MCV 91 fL (80-95); MPV 10.1 fL (8.0-11.0); Monocytes % 14.4; Neutrophils % 68.1; Platelet Count 190 10^3/uL (130-400); RBC 3.41 10^6/uL (4.36-5.78); RDW 16.7 % (11.8-14.1); RDW-SD 55.8 fL; WBC 7.13 10^3/uL (4.4-10.8)
[2022-06-15 07:26] LABS: Anion Gap 5.5 mmol/L (3-11); BUN 20 mg/dL (7-18); CO2 31.5 mmol/L (21.0-32.0); CREATININE 1.1 mg/dL (0.70-1.30); Calcium 8.6 mg/dL (8.5-10.1); Chloride 98 mmol/L (98-107); Estimated GFR 65.38 (mL/min/1.73m2); Glucose 90 mg/dL (74-106); Magnesium 1.7 mg/dL (1.8-2.4); Potassium 3.3 mmol/L (3.5-5.1); Sodium 135 mmol/L (136-145)
[2022-06-15] MEDS: DOXYCYCLINE 100 MG in Normal Saline 100 ML IVPB ×2 (08:29→20:11)
[2022-06-15] MEDS: Lidocaine 5% Patch 1 PATCH TD (08:30)
[2022-06-15] MEDS: Furosemide 40 MG/4 ML VIAL IVP ×2 (08:30→16:30)
[2022-06-15] MEDS: Normal Saline Flush 10 ML SYR IVP ×2 (08:30→16:30)
[2022-06-15] MEDS: Magnesium Oxide 400 MG TAB PO ×2 (08:31→19:24)
[2022-06-15] MEDS: Potassium Chloride Liquid 20 MEQ PKT PO ×3 (08:31→19:25)
[2022-06-15] MEDS: Mometasone 220 MCG 14 DOSE INHALER 2 PUFF IH ×2 (08:31→19:38)
[2022-06-15] MEDS: Acetaminophen 325 MG TAB PO (08:31)
[2022-06-15] MEDS: clonazePAM 0.5 MG TAB PO ×2 (08:31→19:24)
[2022-06-15] MEDS: Mirabegron 50 MG TABCR PO (08:31)
[2022-06-15] MEDS: Spironolactone 25 MG TAB 12.5 MG PO (08:32)
[2022-06-15] MEDS: Pantoprazole 40 MG TABCR PO (08:32)
[2022-06-15] MEDS: Loratidine 10 MG TAB PO (08:32)
[2022-06-15] MEDS: Dorzolamide 2% 10 ML BTL OU (08:46)
--- NOTE | 2022-06-15 11:57 | RESPIRATORY ---
Patient questioned concerning the use of home oxygen, stated he uses 2LPM at home and the DME is Brian.
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
--- NOTE | 2022-06-15 14:38 | W.PM.PROGNOT ---
Date of Service Date of service: 06/15/22 Time of Service: 14:38 Assessment and Plan Assessment and plan (1) Atrial fibrillation with rapid ventricular response: Status: Acute Assessment and plan: Rapid ventricular rate has resolved. Patient is now back on oral rate controlling medicines including metoprolol 37.5 mg p.o. qid and he is anticoagulated w/ Dabigatran Professional time spent interviewing and examining patient, discussion of goals of care with hospital team (care management, nursing and consulting professionals) was 15 minutes. (2) Chronic atrial fibrillation: Status: Chronic Assessment and plan: As above (3) Multifocal pneumonia: Status: Acute Assessment and plan: Continue Rocephin and doxycycline. Check MRSA screen, check urine strep antigen and Legionella and attempt to obtain sputum culture. Can use DuoNeb on a as needed basis. He does not seem to be actively wheezing and has has been tachycardic from his atrial fibrillation I would like to avoid excessive beta agonist effect. However we will continue his Spiriva as well as his Flovent. Encourage cough and deep breathing. Acapella an incentive spirometer has been added. (4) UTI (urinary tract infection): Start date: 06/13/22 Status: Acute Assessment and plan: Urine and blood cultures been obtained. Patient's been started on Rocephin. SPC was changed this morning by urology TOOL CRIB ATTENDANT. (5) Pacemaker: Status: Chronic Assessment and plan: In place but no paced beats noted. We will request interrogation of his pacemaker. (6) Spinal stenosis: Status: Chronic Assessment and plan: We will continue outpatient pain management. Watch for oversedation. (7) BPH (benign prostatic hyperplasia): Status: Chronic Assessment and plan: His SPC was changed this morning (8) COPD (chronic obstructive pulmonary disease): Status: Chronic Assessment and plan: Continue Spiriva and Flovent use DuoNeb as needed Qualifiers: COPD type: unspecified COPD Qualified Code(s): J44.9 - Chronic obstructive pulmonary disease, unspecified (9) DVT prophylaxis: Status: Inactive Assessment and plan: Patient is currently on Pradaxa (10) Discharge planning issues: Status: Resolved Assessment and plan: Transfer back to [facility] once his atrial fibrillation is under control and his infections are brought under control. Subjective Subjective Patient reports: no new complaints and feels better Interval history since last seen: Minimal sputum production. he remains weak Exam Narrative Exam Narrative: Who is alert and oriented x3 Lungs with diminished breath sounds over both bases anteriorly his lung antonio are clear Heart is irregularly irregular at a controlled rate Abdomen soft and nontender Extremities without peripheral cyanosis or edema Objective Last Vital Signs Temp 36.7 C 06/15/22 11:01 Pulse 91 H 06/15/22 13:04 Resp 18 06/15/22 11:01 BP 142/82 H 06/15/22 13:04 Pulse Ox 97 06/15/22 11:01 Laboratory Results - last 24 hr 06/15/22 06/15/22 06:05 06:05 WBC 7.13 RBC 3.41 L Hgb 9.8 L Hct 30.9 L MCV 91 MCH 28.7 MCHC 31.7 L RDW 16.7 H Plt Count 190 MPV 10.1 Immature Gran % 0.4 Neutrophils % 68.1 Lymphocytes % 14.6 Monocytes % 14.4 Eosinophils % 2.4 Basophils % 0.1 Nucleated RBC % 0.0 Absolute Neutrophils 4.85 Absolute Lymphocytes 1.04 L Absolute Monocytes 1.03 H Absolute Eosinophils 0.17 Absolute Basophils 0.01 Sodium 135 L Potassium 3.3 L Chloride 98 Carbon Dioxide 31.5 Anion Gap 5.5 BUN 20 H Creatinine 1.1 Est GFR (CKD-EPI 2020) 65.38 Glucose 90 Calcium 8.6 Magnesium 1.7 L
--- NOTE | 2022-06-15 15:25 | PDOC.CMPRO ---
- If Service Date Differs Date of service: 06/15/22 Time of Service: 15:25 Care Management Progress Note S: Brenden continues to be closely monitored and treated. He was sleeping when CM attempted to meet with him, but is well known to this jingle writer. [facility] at [facility] to determine discharge plan. CM continues to follow. A: 87 year old admitted to [facility] 06/13/22 for A-fib with RVR, multifocal pneumonia P: Brenden continues to be closely monitored and treated. Anticipate he will return to [facility] when ready per , via the facility's W/C van. CM continues to follow.
[2022-06-15 16:29] LABS: Potassium 3.6 mmol/L (3.5-5.1)
[2022-06-15] MEDS: Docusate Sodium 100 MG CAP PO (19:24)
[2022-06-15] MEDS: cefTRIAXone 1 GM/50 ML BAG IVPB (19:24)
[2022-06-15] MEDS: Patch Removal 1 EACH TP (19:25)
[2022-06-15 19:31] LABS: Legionella Ag Detection Urine Negative (Negative)
[2022-06-15] MEDS: Melatonin 3 MG TAB PO (21:44)
[2022-06-15] MEDS: Latanoprost 0.005% 2.5 ML BTL OU (21:44)
[2022-06-16] VITALS (11 sets, daily range): BP systolic 103–125; BP diastolic 60–79; PULSE 65–98; RESP 18–19; TEMP 36.4–37.9; O2SAT 95–97
[2022-06-16] MEDS: Metoprolol 12.5 MG TAB 37.5 MG PO ×4 (04:31→21:34)
[2022-06-16] MEDS: Levothyroxine 100 MCG TAB PO (06:03)
[2022-06-16 07:03] LABS: BUN 22 mg/dL (7-18); CREATININE 1.1 mg/dL (0.70-1.30); Calcium 8.7 mg/dL (8.5-10.1); Chloride 101 mmol/L (98-107); Estimated GFR 65.38 (mL/min/1.73m2); Glucose 95 mg/dL (74-106); Magnesium 1.8 mg/dL (1.8-2.4); Potassium 3.8 mmol/L (3.5-5.1); Sodium 137 mmol/L (136-145)
[2022-06-16] MEDS: Lidocaine 5% Patch 1 PATCH TD (08:08)
[2022-06-16] MEDS: Furosemide 40 MG/4 ML VIAL IVP ×2 (08:08→17:07)
[2022-06-16] MEDS: Normal Saline Flush 10 ML SYR IVP ×3 (08:08→21:36)
[2022-06-16] MEDS: DOXYCYCLINE 100 MG in Normal Saline 100 ML IVPB ×2 (08:08→20:39)
[2022-06-16] MEDS: Magnesium Oxide 400 MG TAB PO ×2 (08:09→20:38)
[2022-06-16] MEDS: Mirabegron 50 MG TABCR PO (08:09)
[2022-06-16] MEDS: Pantoprazole 40 MG TABCR PO (08:09)
[2022-06-16] MEDS: Dorzolamide 2% 10 ML BTL OU (08:09)
[2022-06-16] MEDS: clonazePAM 0.5 MG TAB PO ×2 (08:09→20:38)
[2022-06-16] MEDS: Potassium Chloride Liquid 20 MEQ PKT PO ×2 (08:09→20:38)
[2022-06-16] MEDS: Loratidine 10 MG TAB PO (08:09)
[2022-06-16] MEDS: Spironolactone 25 MG TAB 12.5 MG PO (08:09)
[2022-06-16] MEDS: Mometasone 220 MCG 14 DOSE INHALER 2 PUFF IH ×2 (08:17→20:38)
[2022-06-16] MEDS: Docusate Sodium 100 MG CAP PO ×2 (11:37→20:38)
[2022-06-16] MEDS: Polyethylene Glycol 3350 17 GM PACKET PO (11:37)
[2022-06-16] MEDS: Acetaminophen 325 MG TAB PO (14:22)
--- NOTE | 2022-06-16 15:21 | PGE_ITS ---
Date of Service Date of service: 06/16/22 Time of Service: 12:45 Assessment and Plan Assessment and plan (1) Atrial fibrillation with rapid ventricular response: Status: Acute Assessment and plan: Patient had a transient episode of HR at 137 around 21:45 last night but spontaneously resolved HR 98 to 95 overnight and this morning. Patient will progress to metoprolol succinate 150 mg PO Daily as of 06/17/2022 as rate was controlled by metoprolol 37.5 mg p.o. qid. He will continue anticoagulation w/ Dabigatran Professional time spent interviewing and examining patient, discussion of goals of care with hospital team (care management, nursing and consulting professionals) was 15 minutes. AM Labs: CBC BMP Coags (2) Chronic atrial fibrillation: Status: Chronic Assessment and plan: As above (3) Multifocal pneumonia: Status: Acute Assessment and plan: Patient is on Rocephin and doxycycline, Tmax in the past 24 hours was 100.2 w/o increased oxygen demand ; WBC 7.13; MRSA screen is negative, urine strep antigen and M. pneumoniae pending; urine Legionella is negative; sputum culture is also negative. DuoNeb to be given on a as needed basis. No acute respiratory distress signs such as wheezing and SOB are noticed. Increased heart rate could be induced by excessive beta agonist effects from bronchodilators but at this time we want to maintain his Spiriva as well as his Flovent. Encourage cough and deep breathing. Conitnue Acapella an incentive spirometer. (4) UTI (urinary tract infection): Start date: 06/13/22 Status: Acute Assessment and plan: Urine positive for E. Coli and blood cultures show not growth in 48 hours. Patient's been started on Rocephin day #4. SPC was changed on 06/15/22 by urology GREASE BUFFER. (5) Pacemaker: Status: Chronic Assessment and plan: In place, a few V-paced beats noted. No pacemeaker interrogation report available for this stay (6) Spinal stenosis: Status: Chronic Assessment and plan: We will continue outpatient pain management. Watch for oversedation. (7) BPH (benign prostatic hyperplasia): Status: Chronic Assessment and plan: His SPC was changed on 06/15/22 (8) COPD (chronic obstructive pulmonary disease): Status: Chronic Assessment and plan: Continue Spiriva and Flovent use DuoNeb as needed Qualifiers: COPD type: unspecified COPD Qualified Code(s): J44.9 - Chronic obstructive pulmonary disease, unspecified (9) DVT prophylaxis: Status: Inactive Assessment and plan: Patient is currently on Pradaxa (10) Discharge planning issues: Status: Resolved Assessment and plan: Transfer back to [facility] once his atrial fibrillation is controlled. Clinical signs of infections will have to be eliminated and I.D. management has to meet recommended guidelines for patient to be discharge to [facility] . Subjective Subjective Interval history since last seen: Patient is sitting in the chair and has no c/o pain. He denies SOB or chest pain. He reports eating well, denies nausea or vomiting or diarrhea. He is unable to state last bowel movement and has refused bowel management drugs as pe r RN. He agrees to receive a dose of Miralax. He reports having no issues with voiding and denies pain from suprapubic catheter.He reports sleeping well at night. Exam Narrative Exam Narrative: Patient is alert and oriented X 2, knows he is in the hospital, does not know the date. He has no focal deficit; head is normocephalic and atraumatic, steady gait with walker and standby assist. Lungs are clear posteriorly with decreased breath sounds to bases. Heart is irregular, S1, S2, no edema and palpable pulses to all 4 extremities.Abdomen is flat, semi-firm, non-tender and non-distended; new suprapubic catheter noted; clear yellow urine draining in gravity bag. Objective Last Vital Signs Temp 100.2 F H 06/16/22 14:22 Pulse 75 06/16/22 14:15 Resp 19 06/16/22 14:15 BP 108/64 06/16/22 14:15 Pulse Ox 96 06/16/22 14:15 Laboratory Results - last 24 hr 06/14/22 06/15/22 06/16/22 13:34 16:12 06:25 Sodium 137 Potassium 3.6 3.8 Chloride 101 Carbon Dioxide 30.0 Anion Gap 6.0 BUN 22 H Creatinine 1.1 Est GFR (CKD-EPI 2020) 65.38 Glucose 95 Calcium 8.7 Magnesium 1.8 Urine Legionella Ag Negative
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
--- NOTE | 2022-06-16 16:20 | CMPROGNOTE_ITS ---
- If Service Date Differs Date of service: 06/16/22 Time of Service: 16:20 Care Management Progress Note S: Brenden continues to be closely monitored and treated. He was sleeping when CM attempted to meet with him, but is well known to this residential mortgage underwriter. CM left at [facility] to determine discharge plan. CM continues to follow. A: 87 year old admitted to [facility] 06/13/22 for A-fib with RVR, multifocal pneumonia P: Brenden continues to be closely monitored and treated. Anticipate he will return to [facility] when ready per , via the facility's W/C van. CM continues to follow.
--- NOTE | 2022-06-16 20:10 | W.PM.PROGNOT ---
Date of Service Date of service: 06/16/22 Time of Service: 20:00 Assessment and Plan Assessment and plan (1) Atrial fibrillation with rapid ventricular response: Status: Acute Assessment and plan: Rates mostly controlled. Transition to long acting metoprolol. Continue Pradaxa unless hemoptysis is clinically significant. (2) Multifocal pneumonia: Status: Acute Assessment and plan: Continue empiric Rocephin and doxycycline. The patient reports hemoptysis. MRSA negative. Urine legionella negative. Await strep antigen. Continue prn duonebs. Add guaifenesin. Encourage Acapella and incentive spirometry (3) UTI (urinary tract infection): Start date: 06/13/22 Status: Acute Assessment and plan: Mixed c&S. Suprapubic catheter exchanged. Continue ceftriaxone. (4) Pacemaker: Status: Chronic Assessment and plan: Await interrogation of pacemaker. (5) Spinal stenosis: Status: Chronic Assessment and plan: Continue outpatient management. PT consulted. (6) BPH (benign prostatic hyperplasia): Status: Chronic Assessment and plan: S/p suprapubic catheter exchange. (7) COPD (chronic obstructive pulmonary disease): Status: Chronic Assessment and plan: Continue Spiriva and Flovent. Prn duonebs Qualifiers: COPD type: unspecified COPD Qualified Code(s): J44.9 - Chronic obstructive pulmonary disease, unspecified (8) DVT prophylaxis: Status: Acute Assessment and plan: Pradaxa (9) Discharge planning issues: Status: Resolved Assessment and plan: Back to [facility] and rehab when medically ready. DNR/DNI Subjective Subjective Interval history since last seen: Mr Ross states that he has seen some blood in his sputum. He denies pain on inspiration and states he is a little short of breath, but not too bad. Denies dizziness, chest pain, nausea. Exam Narrative Exam Narrative: General: Pleasant elderly male who is A&Ox3, NAD HEENT: EOMI, MMM Heart: irregularly irregular rhythm Lungs: coarse breath sounds B Abdomen: soft, nontender, nondistended Extremities: no edema BLEs Objective Last Vital Signs Temp 36.9 C 06/16/22 19:33 Pulse 65 06/16/22 19:33 Resp 19 06/16/22 19:33 BP 125/65 06/16/22 19:33 Pulse Ox 96 06/16/22 19:33 Laboratory Results - last 24 hr 06/14/22 06/16/22 13:34 06:25 Sodium 137 Potassium 3.8 Chloride 101 Carbon Dioxide 30.0 Anion Gap 6.0 BUN 22 H Creatinine 1.1 Est GFR (CKD-EPI 2020) 65.38 Glucose 95 Calcium 8.7 Magnesium 1.8 Urine Legionella Ag Negative
[2022-06-16] MEDS: cefTRIAXone 1 GM/50 ML BAG IVPB (20:39)
[2022-06-16] MEDS: Patch Removal 1 EACH TP (20:51)
[2022-06-16] MEDS: Melatonin 3 MG TAB PO (21:34)
[2022-06-16] MEDS: Latanoprost 0.005% 2.5 ML BTL OU (21:35)
[2022-06-17] VITALS (9 sets, daily range): BP systolic 105–127; BP diastolic 56–74; PULSE 56–99; RESP 16–19; TEMP 36–36.4; O2SAT 94–97
[2022-06-17 00:37] LABS: Streptococcus Pneumoniae Ag, U Negative (Negative)
[2022-06-17] MEDS: Metoprolol 12.5 MG TAB 37.5 MG PO (04:44)
[2022-06-17] MEDS: Levothyroxine 100 MCG TAB PO (06:38)
[2022-06-17 07:05] LABS: Abs Immature Grans 0.03 10^3/uL (0.0-0.06); Absolute Basophil Count 0.01 10^3/uL (0.0-0.2); Absolute Eosinophil Count 0.22 10^3/uL (0.0-0.7); Absolute Lymphocyte Count 1.13 10^3/uL (1.2-3.4); Absolute Monocyte Count 0.57 10^3/uL (0.1-0.8); Absolute Neutrophil Count 3.19 10^3/uL (1.2-6.7); Basophils % 0.2; Eosinophils % 4.3; HCT 34.9 % (40.0-50.0); HGB 11.1 g/dL (13.5-17.5); Immature Grans % 0.6; Lymphocytes % 21.9; MCH 28.5 pg (27.0-33.0); MCHC 31.8 % (32.0-36.0); MCV 90 fL (80-95); Monocytes % 11.1; Neutrophils % 61.9; Platelet Count 252 10^3/uL (130-400); RDW 16.6 % (11.8-14.1); RDW-SD 54.3 fL; WBC 5.15 10^3/uL (4.4-10.8)
[2022-06-17 07:17] LABS: Anion Gap 4.3 mmol/L (3-11); BUN 26 mg/dL (7-18); CO2 32.7 mmol/L (21.0-32.0); CREATININE 1.2 mg/dL (0.70-1.30); Calcium 9.1 mg/dL (8.5-10.1); Chloride 100 mmol/L (98-107); Estimated GFR 58.89 (mL/min/1.73m2); Glucose 93 mg/dL (74-106); Magnesium 1.9 mg/dL (1.8-2.4); Sodium 137 mmol/L (136-145)
[2022-06-17] MEDS: Mometasone 220 MCG 14 DOSE INHALER 2 PUFF IH ×2 (07:45→19:46)
[2022-06-17] MEDS: Tiotropium Bromide-Respimat 10 PUFF INH IH (07:45)
[2022-06-17] MEDS: Metoprolol CR 50 MG TABCR 150 MG PO (07:59)
[2022-06-17] MEDS: Potassium Chloride Liquid 20 MEQ PKT PO ×2 (07:59→20:07)
[2022-06-17] MEDS: guaiFENesin 600 MG TABCR PO (07:59)
[2022-06-17] MEDS: Pantoprazole 40 MG TABCR PO (07:59)
[2022-06-17] MEDS: clonazePAM 0.5 MG TAB PO ×2 (07:59→20:08)
[2022-06-17] MEDS: Loratidine 10 MG TAB PO (07:59)
[2022-06-17] MEDS: Mirabegron 50 MG TABCR PO (07:59)
[2022-06-17] MEDS: Magnesium Oxide 400 MG TAB PO ×2 (07:59→20:07)
[2022-06-17] MEDS: Dorzolamide 2% 10 ML BTL OU (08:00)
[2022-06-17] MEDS: Furosemide 40 MG/4 ML VIAL IVP ×2 (08:00→16:07)
[2022-06-17] MEDS: Spironolactone 25 MG TAB 12.5 MG PO (08:00)
[2022-06-17] MEDS: DOXYCYCLINE 100 MG in Normal Saline 100 ML IVPB ×2 (08:01→20:03)
[2022-06-17] MEDS: Lidocaine 5% Patch 1 PATCH TD (08:01)
[2022-06-17] MEDS: Normal Saline Flush 10 ML SYR IVP ×3 (08:01→16:07)
[2022-06-17 08:41] LABS: Lab Add On Test DONE
[2022-06-17 08:50] LABS: C-Reactive Protein 7.86 mg/dL (0.0-0.3)
[2022-06-17 09:13] LABS: Procalcitonin 0.3 ng/mL
[2022-06-17] MEDS: fentaNYL 50 MCG PATCH TD (10:48)
[2022-06-17] MEDS: IMIPENEM/CILASTATIN 500 MG in Normal Saline 100 ML 100 MG IVPB ×2 (10:48→18:28)
--- NOTE | 2022-06-17 10:58 | PT.INTREAT ---
Date of service: 06/17/22 Time of Service: 07:38 PT Notes Visit Reasons: CAF w/ RVR, Multifocal PNA Inpatient Physical Therapy Treatment Note [facility] Date: 06/17/2022 PRECAUTIONS: Activity as tolerated, fall SUBJECTIVE: Brenden is pleasant and agreeable to participate in PT. He states I don't know why I'm being held here still. He is agreeable to returning to [facility] once medically cleared. OBJECTIVE: PAIN: Patient c/o R LE weakness and discomfort with gait training, which per self-report is typically his stronger LE BED MOBILITY/TRANSFERS: Supine-sit: S Sit-stand: SBA Stand-sit: SBA GAIT Assistive Device: FWW Weight bearing: Full Assist: SBA Distance: 200' in a.m.; SBA in p.m. Deviation: Short step height and length, slow pacing, SOB ASSESSMENT: Patient tolerated session with complaint of increased fatigue and SOB with gait training. He continues to demonstrate limited activity tolerance. PLAN: Continue with global strengthening and general conditioning for improved mobility and activity tolerance. TREATMENT CODE/TIME: Session 1: 20 minutes; 58990 (07:38) Session 2: 20 minutes; 06513 x2 (14:17)
--- NOTE | 2022-06-17 11:37 | PDOC.CMPRO ---
- If Service Date Differs Date of service: 06/17/22 Time of Service: 11:37 Care Management Progress Note S/O: Brenden was resting when CM attempted to visit. CM spoke to Shruthi, admissions at [facility] today, who stated that they are planning on having Bill return to their care once he is medically cleared to do so. Per report, Brenden is also agreeable to this plan. He is not yet medically cleared, as he is being treated with IV abx for ESBL. CM will continue to follow. A: 87 year old admitted to [facility] 06/13/22 for A-fib with RVR, multifocal pneumonia P: Brenden continues to be closely monitored and treated. Anticipate he will return to [facility] when ready per MD, via the facility's W/C van. CM continues to follow.
--- NOTE | 2022-06-17 14:45 | RT.EKG_ITS ---
APPROVED REPORT Exam: Resting ECG Reason for Exam: ?functioning pacemaker Patient Location: I HR:96 bpm ECG Measurements Heart Rate 96 AXIS IA [id number] P [id number] QRSd 97 QRS 11 QT 373 T 32 QTc 472 Conclusion Afib/flut and V-paced complexes...other complexes, A-rate>240 No further rhythm analysis attempted due to paced rhythm Low voltage, extremity leads...all extremity leads <0.5mV
--- NOTE | 2022-06-17 16:21 | CHAPLAIN ---
I checked in with Brenden a couple of times today. The first time he was resting and complained about being interrupted. Don't get ever get sick, people just keep coming in to bother you, he said. I went back later and he said he wasn't sure he wanted to talk. He did respond to a few questions about his family, telling me he's the only sibling, out of 13, alive. 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 He said We all sometime even if we don't want to. He avoid responding to questions about his debi background, and was falling asleep just before I left. At one point he said, I guess I'll just be 'liya Wilcox.' When I responded that I bet Liya Wilcox has done some interesting things in life, he just smiled. I will continue to visit.
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
[2022-06-17] MEDS: Docusate Sodium 100 MG CAP PO (20:08)
[2022-06-17] MEDS: guaiFENesin 600 MG TABCR 1200 MG PO (20:08)
[2022-06-17] MEDS: Melatonin 3 MG TAB PO (20:20)
[2022-06-17] MEDS: Latanoprost 0.005% 2.5 ML BTL OU (20:20)
[2022-06-17] MEDS: Patch Removal 1 EACH TP (20:25)
[2022-06-17] MEDS: Milk of Magnesia 30 ML CUP PO (20:56)
[2022-06-18] VITALS (7 sets, daily range): BP systolic 101–118; BP diastolic 57–74; PULSE 78–120; RESP 16–19; TEMP 36.2–37; O2SAT 94–96
[2022-06-18] MEDS: IMIPENEM/CILASTATIN 500 MG in Normal Saline 100 ML 100 MG IVPB ×3 (01:28→17:55)
[2022-06-18] MEDS: Milk of Magnesia 30 ML CUP PO (01:28)
[2022-06-18 06:59] LABS: Abs Immature Grans 0.06 10^3/uL (0.0-0.06); Absolute Basophil Count 0.01 10^3/uL (0.0-0.2); Absolute Lymphocyte Count 1.12 10^3/uL (1.2-3.4); Absolute Monocyte Count 0.93 10^3/uL (0.1-0.8); Basophils % 0.1; Eosinophils % 1.2; HCT 34.8 % (40.0-50.0); Immature Grans % 0.7; MCH 28.4 pg (27.0-33.0); MCHC 31.6 % (32.0-36.0); MCV 90 fL (80-95); MPV 10.1 fL (8.0-11.0); Monocytes % 11.6; Neutrophils % 72.4; Platelet Count 313 10^3/uL (130-400); RBC 3.88 10^6/uL (4.36-5.78); RDW 16.4 % (11.8-14.1); RDW-SD 54.4 fL; WBC 8.02 10^3/uL (4.4-10.8)
[2022-06-18 07:11] LABS: BUN 30 mg/dL (7-18); C-Reactive Protein 5.08 mg/dL (0.0-0.3); CREATININE 1.3 mg/dL (0.70-1.30); Calcium 9.4 mg/dL (8.5-10.1); Chloride 98 mmol/L (98-107); Glucose 94 mg/dL (74-106); Magnesium 2.1 mg/dL (1.8-2.4); Potassium 3.9 mmol/L (3.5-5.1); Sodium 136 mmol/L (136-145)
[2022-06-18] MEDS: DOXYCYCLINE 100 MG in Normal Saline 100 ML IVPB ×2 (08:00→19:55)
[2022-06-18] MEDS: Lidocaine 5% Patch 1 PATCH TD (08:00)
[2022-06-18] MEDS: Potassium Chloride Liquid 20 MEQ PKT PO ×2 (08:00→19:58)
[2022-06-18] MEDS: Spironolactone 25 MG TAB 12.5 MG PO (08:01)
[2022-06-18] MEDS: clonazePAM 0.5 MG TAB PO ×2 (08:01→19:58)
[2022-06-18] MEDS: guaiFENesin 600 MG TABCR 1200 MG PO ×2 (08:01→19:58)
[2022-06-18] MEDS: Normal Saline Flush 10 ML SYR IVP (08:01)
[2022-06-18] MEDS: Loratidine 10 MG TAB PO (08:01)
[2022-06-18] MEDS: Pantoprazole 40 MG TABCR PO (08:01)
[2022-06-18] MEDS: Magnesium Oxide 400 MG TAB PO ×2 (08:01→19:58)
[2022-06-18] MEDS: Mirabegron 50 MG TABCR PO (08:02)
[2022-06-18] MEDS: Furosemide 20 MG TAB 40 MG PO ×2 (08:02→16:26)
[2022-06-18] MEDS: Metoprolol CR 50 MG TABCR 150 MG PO (08:02)
[2022-06-18] MEDS: Tiotropium Bromide-Respimat 10 PUFF INH IH (08:06)
[2022-06-18] MEDS: Dorzolamide 2% 10 ML BTL OU (08:12)
--- NOTE | 2022-06-18 13:29 | PT.INTREAT ---
Date of service: 06/18/22 Time of Service: 12:45 PT Notes Visit Reasons: CAF w/ RVR, Multifocal PNA Inpatient Physical Therapy Treatment Note [facility] Date: 06/18/2022 PRECAUTIONS: Activity as tolerated, fall SUBJECTIVE: Brenden does not offer much conversation today. He reports feeling tired. OBJECTIVE: Patient appears confused today, he also appears to process information slower than usual. PAIN: Patient c/o sudden pain in L shoulder with gait training. Upon examination, patient's L upper trap appears to be in spasm (tight and rigid) BED MOBILITY/TRANSFERS: Sit-stand: SBA Stand-sit: SBA GAIT Assistive Device: FWW Weight bearing: Full Assist: SBA Distance: 100' + 50' Deviation: Short step height and length, slow pacing, SOB, seated rest x2 THEREX: Patient was instructed in a LE strengthening program, completed in a seated position, to include: ankle pumps, LAQ, hip flexion and hip abduction. He demonstrates inability to complete full ROM today. ASSESSMENT: Patient tolerated session with complaint of increased fatigue and SOB with gait training. He continues to demonstrate limited activity tolerance. PLAN: Continue with global strengthening and general conditioning for improved mobility and activity tolerance. TREATMENT CODE/TIME: 25 minutes; 15422 x2 (12:45)
[2022-06-18] MEDS: Enoxaparin 40 MG/0.4 ML SYR SC (14:03)
--- NOTE | 2022-06-18 15:34 | W.PM.PROGNOT ---
Date of Service Date of service: 06/18/22 Time of Service: 15:34 Assessment and Plan Assessment and plan (1) Atrial fibrillation with rapid ventricular response: Status: Acute Assessment and plan: Rates mostly controlled. Last night there was an episode of rapid Afib lasting about 30 minutes. I am hesitant to increase his long acting metoprolol due to his BP and the fact that his pacemaker battery is at end of life. Continue long acting metoprolol at current dose. Continue monitoring on telemetry. Hold pradaxa in anticipation of device generator change. Will contact [facility] tomorrow in an attempt to arrange transfer for generator change. (2) Multifocal pneumonia: Status: Acute Assessment and plan: Continue empiric doxycycline through tomorrow as well as imipenem/cilastin x 72 hrs (followed by fosfomycin). O2 requirement 96% on RA. Hemoptysis resolved. Sputum c&S from 06/17/22 pending; the one from 06/14/22: Normal telma. MRSA negative. Urine legionella negative. Strep urine Ag negative. Continue prn duonebs. Continue guaifenesin. Encourage Acapella and incentive spirometry (3) UTI (urinary tract infection): Status: Acute Assessment and plan: Due to ESBL, present on admission. S/p exchange of suprapubic catheter. Continue imipenem/cilastin day 2/3, which we will follow by a dose of fosfomycin since we anticipate a procedure. (4) Pacemaker: Status: Chronic Assessment and plan: Generator at end of life. The patient is not pacemaker dependent. Will require a generator change prior to his discharge but needs to have his infection better treated first. [facility] does not have capacity to accomodate the patient today or tomorrow. Will try calling back tomorrow. Will call [facility] back tomorrow in an attempt to solidify plans for transfer. (5) Spinal stenosis: Status: Chronic Assessment and plan: Continue outpatient management. PT consulted. (6) BPH (benign prostatic hyperplasia): Status: Chronic Assessment and plan: S/p suprapubic catheter exchange. (7) COPD (chronic obstructive pulmonary disease): Status: Chronic Assessment and plan: Continue Spiriva and Flovent. Prn duonebs Qualifiers: COPD type: unspecified COPD Qualified Code(s): J44.9 - Chronic obstructive pulmonary disease, unspecified (8) DVT prophylaxis: Status: Acute Assessment and plan: Pradaxa on hold starting tomorrow am in anticipation of procedure. bridge with lovenox (9) Discharge planning issues: Status: Resolved Assessment and plan: Anticipate transfer to [facility] for generator change prior to return to [facility] and rehab. DNR/DNI, however interested in pacemaker battery change. Subjective Subjective Interval history since last seen: Mr Ross states his cough is no longer productive and he is coughing less. He denies dizziness, chest pain, shortness of breath, nausea, pain in general. I had contacted [facility] transfer center, and they do not have capacity to accept the patient in transfer for today and they are not listing the patients for transfer for tomorrow. Exam Narrative Exam Narrative: General: Pleasant elderly male who is A&Ox3, NAD HEENT: EOMI, MMM Heart: irregularly irregular rhythm Lungs: Diminished breath sounds B Abdomen: soft, nontender, nondistended Extremities: no edema BLEs Objective Last Vital Signs Temp 36.8 C 06/18/22 15:32 Pulse 87 06/18/22 15:32 Resp 16 06/18/22 15:32 BP 110/70 06/18/22 15:32 Pulse Ox 96 06/18/22 15:32 Laboratory Results - last 24 hr 06/18/22 06/18/22 06:25 06:25 WBC 8.02 RBC 3.88 L Hgb 11.0 L Hct 34.8 L MCV 90 MCH 28.4 MCHC 31.6 L RDW 16.4 H Plt Count 313 MPV 10.1 Immature Gran % 0.7 Neutrophils % 72.4 Lymphocytes % 14.0 Monocytes % 11.6 Eosinophils % 1.2 Basophils % 0.1 Nucleated RBC % 0.0 Absolute Neutrophils 5.80 Absolute Lymphocytes 1.12 L Absolute Monocytes 0.93 H Absolute Eosinophils 0.10 Absolute Basophils 0.01 Sodium 136 Potassium 3.9 Chloride 98 Carbon Dioxide 33.0 H Anion Gap 5.0 BUN 30 H Creatinine 1.3 Est GFR (CKD-EPI 2020) 53.50 Glucose 94 Calcium 9.4 Magnesium 2.1 C-Reactive Protein 5.08 H
[2022-06-18 15:37] LABS: Mycoplasma Pneumoniae PCR Negative; Specimen source Sputum
--- NOTE | 2022-06-18 17:22 | CMPROGNOTE_ITS ---
- If Service Date Differs Date of service: 06/18/22 Time of Service: 17:22 Care Management Progress Note S/O: Brenden was resting when CM attempted to visit. CM spoke to Shruthi, admissions at [facility] today, who stated that they are planning on having Bill return to their care once he is medically cleared to do so. Per report, Brenden is also agreeable to this plan. He is not yet medically cleared, as he is being treated with IV abx for ESBL. CM will continue to follow. A: 87 year old admitted to [facility] 06/13/22 for A-fib with RVR, multifocal pneumonia P: Brenden continues to be closely monitored and treated. Anticipate he will return to [facility] Rehab when ready per MD, via the facility's W/C van. CM continues to follow.
[2022-06-18] MEDS: Mometasone 220 MCG 14 DOSE INHALER 2 PUFF IH (19:35)
[2022-06-18] MEDS: Melatonin 3 MG TAB PO (19:58)
[2022-06-18] MEDS: Docusate Sodium 100 MG CAP PO (19:58)
[2022-06-18] MEDS: Latanoprost 0.005% 2.5 ML BTL OU (19:59)
[2022-06-18] MEDS: Patch Removal 1 EACH TP (20:17)
[2022-06-19] VITALS (10 sets, daily range): BP systolic 100–135; BP diastolic 57–73; PULSE 68–96; RESP 16–18; TEMP 36.1–36.8; O2SAT 91–96
[2022-06-19] MEDS: IMIPENEM/CILASTATIN 500 MG in Normal Saline 100 ML 100 MG IVPB ×3 (03:18→18:07)
[2022-06-19] MEDS: Levothyroxine 100 MCG TAB PO (06:35)
[2022-06-19 07:12] LABS: Abs Immature Grans 0.06 10^3/uL (0.0-0.06); Absolute Basophil Count 0.02 10^3/uL (0.0-0.2); Absolute Eosinophil Count 0.14 10^3/uL (0.0-0.7); Absolute Lymphocyte Count 1.37 10^3/uL (1.2-3.4); Absolute Monocyte Count 0.62 10^3/uL (0.1-0.8); Absolute Neutrophil Count 3.29 10^3/uL (1.2-6.7); Basophils % 0.4; Eosinophils % 2.5; HGB 11.2 g/dL (13.5-17.5); Immature Grans % 1.1; Lymphocytes % 24.9; MCH 28.6 pg (27.0-33.0); MCV 89 fL (80-95); MPV 9.9 fL (8.0-11.0); Monocytes % 11.3; Neutrophils % 59.8; Platelet Count 301 10^3/uL (130-400); RBC 3.92 10^6/uL (4.36-5.78); RDW 16.6 % (11.8-14.1); RDW-SD 54.2 fL
[2022-06-19 07:23] LABS: BUN 29 mg/dL (7-18); C-Reactive Protein 5.11 mg/dL (0.0-0.3); CREATININE 1.3 mg/dL (0.70-1.30); Calcium 9.3 mg/dL (8.5-10.1); Chloride 100 mmol/L (98-107); Glucose 91 mg/dL (74-106); Magnesium 2.2 mg/dL (1.8-2.4); Potassium 4.3 mmol/L (3.5-5.1); Sodium 137 mmol/L (136-145)
[2022-06-19] MEDS: Tiotropium Bromide-Respimat 10 PUFF INH IH (07:42)
[2022-06-19] MEDS: Mometasone 220 MCG 14 DOSE INHALER 2 PUFF IH ×2 (07:43→19:39)
[2022-06-19] MEDS: DOXYCYCLINE 100 MG in Normal Saline 100 ML IVPB (08:17)
[2022-06-19] MEDS: Lidocaine 5% Patch 1 PATCH TD (08:18)
[2022-06-19] MEDS: Pantoprazole 40 MG TABCR PO (08:18)
[2022-06-19] MEDS: Normal Saline Flush 10 ML SYR IVP (08:18)
[2022-06-19] MEDS: Spironolactone 25 MG TAB 12.5 MG PO (08:18)
[2022-06-19] MEDS: Potassium Chloride Liquid 20 MEQ PKT PO ×2 (08:18→20:23)
[2022-06-19] MEDS: Furosemide 20 MG TAB 40 MG PO ×2 (08:19→16:42)
[2022-06-19] MEDS: clonazePAM 0.5 MG TAB PO ×2 (08:19→20:24)
[2022-06-19] MEDS: Loratidine 10 MG TAB PO (08:19)
[2022-06-19] MEDS: Mirabegron 50 MG TABCR PO (08:19)
[2022-06-19] MEDS: Magnesium Oxide 400 MG TAB PO ×2 (08:19→20:24)
[2022-06-19] MEDS: guaiFENesin 600 MG TABCR 1200 MG PO ×2 (08:19→20:23)
[2022-06-19] MEDS: Metoprolol CR 50 MG TABCR 150 MG PO (08:19)
[2022-06-19] MEDS: Dorzolamide 2% 10 ML BTL OU (08:27)
--- NOTE | 2022-06-19 12:17 | PT.INTREAT ---
Date of service: 06/19/22 Time of Service: 09:16 PT Notes Visit Reasons: CAF w/ RVR, Multifocal PNA Inpatient Physical Therapy Treatment Note [facility] Date: 06/19/2022 PRECAUTIONS: Activity as tolerated, fall SUBJECTIVE: Brenden reports that he is feeling better today. He gets somewhat teary stating that he wants to go back to SNF and doesn't know why he is being held here. OBJECTIVE: Patient appears intermittently confused today PAIN: No c/o pain BED MOBILITY/TRANSFERS: Sit-stand: SBA Stand-sit: SBA GAIT Assistive Device: FWW Weight bearing: Full Assist: SBA Distance: 200' Deviation: Improved step length and improved pacing THEREX: Patient was instructed in a LE strengthening program, completed in a seated position, to include: ankle pumps, LAQ, hip flexion and hip abduction. He demonstrates improved ROM today. ASSESSMENT: Patient tolerated session without complaint. He demonstrates improved gait with increased pacing and step length. He also demonstrates improved ROM with ther ex today compared to yesterday. PLAN: Continue with global strengthening and general conditioning for improved mobility and activity tolerance. TREATMENT CODE/TIME: 26 minutes; 35824, [id number] (09:16)
[2022-06-19] MEDS: Enoxaparin 40 MG/0.4 ML SYR SC (14:08)
--- NOTE | 2022-06-19 17:25 | CMPROGNOTE_ITS ---
- If Service Date Differs Date of service: 06/19/22 Time of Service: 17:25 Care Management Progress Note S/O: coordinated down and back appointment for Dino to go to [facility] for pacer procedure. No change to overall plan. CM will continue to follow. A: [address] [facility] 06/13/22 for A-fib with RVR, multifocal pneumonia P: Bill continues to be closely monitored and treated. Anticipate he will return to [facility] when ready per MD, via the facility's W/C van. CM continues to follow.
--- NOTE | 2022-06-19 19:02 | W.PM.PROGNOT ---
Date of Service Date of service: 06/19/22 Time of Service: 19:02 Assessment and Plan Assessment and plan (1) Atrial fibrillation with rapid ventricular response: Status: Acute Assessment and plan: Rates mostly controlled. I am hesitant to increase his long acting metoprolol due to his BP and the fact that his pacemaker battery is at end of life. Continue long acting metoprolol at current dose. Continue monitoring on telemetry. Hold pradaxa in anticipation of device generator change. Bridge w/ prophylactic dose of lovenox. Will contact [facility] again tomorrow in an attempt to arrange transfer for generator change. (2) Multifocal pneumonia: Status: Acute Assessment and plan: Continue finish doxycycline tonight. Continue imipenem cilastin. O2 requirement 96% on RA though the patient just shared with me he uses home O2. Will verify this. Hemoptysis resolved. Sputum c&S from 06/17/22 pending; the one from 06/14/22: Normal telma. MRSA negative. Urine legionella negative. Strep urine Ag negative. Continue prn duonebs. Continue guaifenesin. Encourage Acapella and incentive spirometry (3) UTI (urinary tract infection): Status: Acute Assessment and plan: Due to ESBL, present on admission. S/p exchange of suprapubic catheter. Continue imipenem/cilastin day 3/3, Recheck UA in am. If looks clean, will follow by a dose of fosfomycin since we anticipate a procedure. (4) Pacemaker: Status: Chronic Assessment and plan: Generator at end of life. The patient is not pacemaker dependent. Will require a generator change prior to his discharge but needs to have his infection better treated first. [facility] does not have capacity to accomodate the patient today or tomorrow. Will call [facility] back tomorrow in an attempt to solidify plans for transfer. (5) Spinal stenosis: Status: Chronic Assessment and plan: Continue outpatient management. PT consulted. (6) BPH (benign prostatic hyperplasia): Status: Chronic Assessment and plan: S/p suprapubic catheter exchange. (7) COPD (chronic obstructive pulmonary disease): Status: Chronic Assessment and plan: Continue Spiriva and Flovent. Prn duonebs Qualifiers: COPD type: unspecified COPD Qualified Code(s): J44.9 - Chronic obstructive pulmonary disease, unspecified (8) DVT prophylaxis: Status: Acute Assessment and plan: Pradaxa on hold in anticipation of procedure. bridge with prophylactic lovenox (9) Discharge planning issues: Status: Resolved Assessment and plan: Anticipate transfer to [facility] for generator change prior to return to [facility] and rehab. DNR/DNI, however interested in pacemaker battery change. Subjective Subjective Interval history since last seen: Mr Ross states he is not feeling bad at all. Denies dizzines, chest pain, shortness of breath, nausea. Cough is not productive. No beds at [facility] today or tomorrow. I was told to call back tomorrow to see if we can possibly secure a bed for Wednesday. Exam Narrative Exam Narrative: General: Pleasant elderly male who is A&Ox3, NAD HEENT: EOMI, MMM Heart: irregularly irregular rhythm Lungs: Diminished breath sounds B, crackles at B bases Abdomen: soft, nontender, nondistended Extremities: trace edema BLEs Objective Last Vital Signs Temp 36.4 C L 06/19/22 16:50 Pulse 87 06/19/22 16:50 Resp 16 06/19/22 16:50 BP 112/73 06/19/22 16:50 Pulse Ox 94 06/19/22 16:50 Laboratory Results - last 24 hr 06/19/22 06/19/22 06:50 06:50 WBC 5.50 RBC 3.92 L Hgb 11.2 L Hct 35.0 L MCV 89 MCH 28.6 MCHC 32.0 RDW 16.6 H Plt Count 301 MPV 9.9 Immature Gran % 1.1 Neutrophils % 59.8 Lymphocytes % 24.9 Monocytes % 11.3 Eosinophils % 2.5 Basophils % 0.4 Nucleated RBC % 0.0 Absolute Neutrophils 3.29 Absolute Lymphocytes 1.37 Absolute Monocytes 0.62 Absolute Eosinophils 0.14 Absolute Basophils 0.02 Sodium 137 Potassium 4.3 Chloride 100 Carbon Dioxide 33.0 H Anion Gap 4.0 BUN 29 H Creatinine 1.3 Est GFR (CKD-EPI 2020) 53.50 Glucose 91 Calcium 9.3 Magnesium 2.2 C-Reactive Protein 5.11 H
[2022-06-19] MEDS: Docusate Sodium 100 MG CAP PO (20:24)
[2022-06-19] MEDS: Latanoprost 0.005% 2.5 ML BTL OU (20:27)
[2022-06-19] MEDS: Patch Removal 1 EACH TP (20:28)
[2022-06-20] VITALS (9 sets, daily range): BP systolic 101–125; BP diastolic 62–85; PULSE 75–103; RESP 16–19; TEMP 36.1–36.9; O2SAT 95–97
--- NOTE | 2022-06-20 | DI.CT_ITS ---
Exam(s) CT ABDOMEN PELVIS W EXAM: CT ABDOMEN PELVIS W CLINICAL HISTORY: abdominal pain. TECHNIQUE: Imaging Protocol: Axial computed tomography images with coronal and sagittal reformatted images were created and reviewed CONTRAST MATERIAL: Intravenous: Omnipaque 350 Contrast volume:100 ml Oral: yes / no COMPARISON: CT CT ABDOMEN PELVIS WO from 05/20/[address] CHEST PE CTA from 06/13/2022 FINDINGS: ABDOMEN: Lung Bases: Stable right pleural effusion with adjacent atelectasis.. Minimal left pleural effusion. Improvement in left sided infiltrates. Liver: Normal density. No measurable mass. Gallbladder and biliary tract: Status post cholecystectomy. No radiodense calculus or dilation. Pancreas: Normal density, no abnormal calcifications or inflammatory process. Spleen: Normal. Kidneys: Normal size, contour and axis. No radiodense stones or obstructive uropathy. No masses seen. Adrenal glands: No masses seen. Abdominal Aorta: Abdominal portion non-dilated. Heavily calcified. PELVIS: Bladder: Suprapubic catheter. Nearly empty. No calculi.No focal mass. Bowel: Severe diverticulosis. No evidence of diverticulitis. increased quantity of stool. No obstruc tion or bowel wall thickening. Appendix normal. Peritoneal cavity: No ascites, collection or mesenteric inflammatory response. Bones: Advanced degenerative changes in the spine. Scoliosis. Reproductive organs: Markedly enlarged prostate. Lymph nodes: Unremarkable. Fatty containing right inguinal hernia. Impression: Some interval improvement in left basilar infiltrates. Stable size right pleural effusion. Severe diverticulosis without evidence of diverticulitis. Large quantity of stool. Markedly enlarged prostate. Suprapubic catheter. RADIATION DOSE DELIVERED: 898.42mGy.cm Total DLP DATA REPOSITORY: All CT scans at this facility are submitted to the National Radiology Data Registry (NRDR) Dose Index Registry (DIR) with the [employer] (A[employer]). RADIATION OPTIMIZATION: All CT scans at this facility use at least one of these dose optimization te chniques: automated exposure control; mA and/or kV adjustment per patient size (includes targeted exa ms where dose is matched to clinical indication); or iterative reconstruction.
[2022-06-20] MEDS: IMIPENEM/CILASTATIN 500 MG in Normal Saline 100 ML 100 MG IVPB (01:32)
[2022-06-20] MEDS: Acetaminophen 325 MG TAB PO ×2 (03:03→20:20)
[2022-06-20] MEDS: Levothyroxine 100 MCG TAB PO (06:10)
[2022-06-20] MEDS: DOXYCYCLINE 100 MG in Normal Saline 100 ML IVPB ×2 (06:10)
[2022-06-20 06:54] LABS: Abs Immature Grans 0.12 10^3/uL (0.0-0.06); Absolute Basophil Count 0.05 10^3/uL (0.0-0.2); Absolute Eosinophil Count 0.24 10^3/uL (0.0-0.7); Absolute Lymphocyte Count 1.91 10^3/uL (1.2-3.4); Absolute Monocyte Count 0.79 10^3/uL (0.1-0.8); Absolute Neutrophil Count 3.81 10^3/uL (1.2-6.7); Basophils % 0.7; Eosinophils % 3.5; HCT 36.9 % (40.0-50.0); HGB 11.8 g/dL (13.5-17.5); Immature Grans % 1.7; Lymphocytes % 27.6; MCH 28.2 pg (27.0-33.0); MCV 88 fL (80-95); MPV 9.7 fL (8.0-11.0); Monocytes % 11.4; Neutrophils % 55.1; Platelet Count 356 10^3/uL (130-400); RBC 4.19 10^6/uL (4.36-5.78); RDW 16.8 % (11.8-14.1); RDW-SD 53.9 fL; WBC 6.92 10^3/uL (4.4-10.8)
[2022-06-20 07:22] LABS: Anion Gap 7.5 mmol/L (3-11); BUN 32 mg/dL (7-18); C-Reactive Protein 4.25 mg/dL (0.0-0.3); CO2 31.5 mmol/L (21.0-32.0); CREATININE 1.2 mg/dL (0.70-1.30); Calcium 9.5 mg/dL (8.5-10.1); Chloride 98 mmol/L (98-107); Estimated GFR 58.89 (mL/min/1.73m2); Glucose 104 mg/dL (74-106); Magnesium 2.2 mg/dL (1.8-2.4); Potassium 4.4 mmol/L (3.5-5.1); Sodium 137 mmol/L (136-145)
[2022-06-20] MEDS: Spironolactone 25 MG TAB 12.5 MG PO (07:47)
[2022-06-20] MEDS: Magnesium Oxide 400 MG TAB PO ×2 (07:49→19:46)
[2022-06-20] MEDS: clonazePAM 0.5 MG TAB PO ×2 (07:49→19:48)
[2022-06-20] MEDS: Metoprolol CR 50 MG TABCR 150 MG PO (07:50)
[2022-06-20] MEDS: guaiFENesin 600 MG TABCR 1200 MG PO ×2 (07:51→19:48)
[2022-06-20] MEDS: Pantoprazole 40 MG TABCR PO (07:51)
[2022-06-20] MEDS: Loratidine 10 MG TAB PO (07:51)
[2022-06-20] MEDS: Furosemide 20 MG TAB 40 MG PO ×2 (07:51→16:30)
[2022-06-20] MEDS: Potassium Chloride Liquid 20 MEQ PKT PO ×2 (07:52→19:43)
[2022-06-20] MEDS: Mirabegron 50 MG TABCR PO (07:52)
[2022-06-20] MEDS: Lidocaine 5% Patch 1 PATCH TD (07:55)
[2022-06-20 08:13] LABS: Procalcitonin 0.1 ng/mL
[2022-06-20] MEDS: Tiotropium Bromide-Respimat 10 PUFF INH IH (08:26)
[2022-06-20] MEDS: Dorzolamide 2% 10 ML BTL OU (08:32)
[2022-06-20 09:27] LABS: Bilirubin Negative (Negative); Blood Negative (Negative); Clarity Clear (Clear); Glucose Negative (Negative); Ketones Negative (Negative); Leukocyte Esterase Trace (Negative); Nitrite Negative (Negative); Urobilinogen 0.2 EU/dL (Up TO 0.2); pH 5.5 (5-8)
[2022-06-20 09:41] LABS: Bacteria Negative HPF (Negative); C & S Indicated? Yes; Casts Negative LPF (Negative); Crystals Negative HPF (Negative); Epithelial Cells Rare HPF (Negative); Mucus Negative (Negative); Other Cells Moderate Yeast (Negative); RBC 0-2 HPF (0-2)
[2022-06-20] MEDS: fentaNYL 50 MCG PATCH TD (11:01)
[2022-06-20] MEDS: IMIPENEM/CILASTATIN 500 MG in Normal Saline 100 ML 200 MG IVPB ×2 (11:04→18:11)
[2022-06-20] MEDS: Enoxaparin 40 MG/0.4 ML SYR SC (12:02)
--- NOTE | 2022-06-20 12:52 | PT.INTREAT ---
PT Notes Visit Reasons: CAF w/ RVR, Multifocal PNA Inpatient Physical Therapy Treatment Note [facility] Date: 06/20/22 SUBJECTIVE: Brenden states he will work with me, but not interested in sitting in recliner. I just got back to bed. OBJECTIVE: [] BED MOBILITY/TRANSFERS Supine-sit: SBA Sit-supine: SBA Sit-stand:SBA Stand-sit: SBA GAIT Assistive Device: FWW Weight bearing: FWB Assist: SBA/CGA Distance: 100' in room Deviation: O2 supplement THEREX: seated global LE strengthening routine consisting of LAQ, hip flex, abd/add. ASSESSMENT: tolerated session well. No complaints of fatigue, SOB or LOB. PLAN: will continue to work on strength and endurance TREATMENT CODE/TIME: 20 min, 69919x3
[2022-06-20] MEDS: Melatonin 3 MG TAB PO (19:47)
[2022-06-20] MEDS: Docusate Sodium 100 MG CAP PO (19:47)
[2022-06-20] MEDS: Latanoprost 0.005% 2.5 ML BTL OU (19:48)
[2022-06-20] MEDS: Patch Removal 1 EACH TP (19:49)
--- NOTE | 2022-06-20 20:38 | W.PM.PROGNOT ---
Date of Service Date of service: 06/20/22 Time of Service: 20:38 Assessment and Plan Assessment and plan (1) Abdominal pain: Status: Acute Assessment and plan: suspect abdominal wall hematoma in setting of injectable dvt ppx. hold lovenox. Obtain CT abdomen/pelvis. (2) Atrial fibrillation with rapid ventricular response: Status: Acute Assessment and plan: Rates mostly controlled. I am hesitant to increase his long acting metoprolol due to his BP and the fact that his pacemaker battery is at end of life. Discussed this with [facility]. They still do not have a bed and are not yet listing for transfers. Continue long acting metoprolol at current dose. Continue monitoring on telemetry. Hold pradaxa in anticipation of device generator change. I am also holding dvt ppx lovenox until we rule out abdominal wall hematoma. Day hospitalist to contact [facility] again tomorrow in an attempt to arrange transfer for generator change. (3) Multifocal pneumonia: Status: Acute Assessment and plan: Finished abx. O2 requirement 96% on RA though the patient says he uses home O2. RT is verifying whether he is on oxygen. Hemoptysis resolved. Sputum c&S from 06/17/22 neg; the one from 06/14/22: Normal telma. MRSA negative. Urine legionella negative. Strep urine Ag negative. Continue prn duonebs. Continue guaifenesin. Encourage Acapella and incentive spirometry (4) UTI (urinary tract infection): Status: Acute Assessment and plan: Due to ESBL, present on admission. S/p exchange of suprapubic catheter. Finish 3 day course of imipenem. Will give a dose of fosfomycin. UA looks nearly clean. (5) Pacemaker: Status: Chronic Assessment and plan: Generator at end of life. The patient is not pacemaker dependent. Will require a generator change prior to his discharge but needs to have his infection better treated first. [facility] does not have capacity to accomodate the patient today or tomorrow. Day hospitalist to call [facility] transfer center back in am. (6) Spinal stenosis: Status: Chronic Assessment and plan: Continue outpatient management. PT consulted. (7) BPH (benign prostatic hyperplasia): Status: Chronic Assessment and plan: S/p suprapubic catheter exchange. (8) COPD (chronic obstructive pulmonary disease): Status: Chronic Assessment and plan: Continue Spiriva and Flovent. Prn consuelo Qualifiers: COPD type: unspecified COPD Qualified Code(s): J44.9 - Chronic obstructive pulmonary disease, unspecified (9) DVT prophylaxis: Status: Acute Assessment and plan: Pradaxa on hold in anticipation of procedure. Lovenox also on hold until we have ruled out abdominal wall hematoma. (10) Discharge planning issues: Status: Resolved Assessment and plan: Anticipate transfer to [facility] for generator change prior to return to [facility] and rehab. DNR/DNI, however interested in pacemaker battery change. Subjective Subjective Interval history since last seen: C/o abdominal pain - RLQ, 2-3 days, in one specific spot. We discussed how this is happening at an injection site where he probably got lovenox and that I was worried about an abdominal wall hematoma. He initially told me he did not want to be on blood thinners anymore, period, then said he would want to stay on them. Breathing is better, but not yet 100%. Denies dizziness, chest pain, nausea. Agrees to getting a CT scan. Exam Narrative Exam Narrative: General: Pleasant elderly male who is A&Ox3, NAD HEENT: EOMI, MMM Heart: irregularly irregular rhythm Lungs: Diminished breath sounds B, crackles at B bases Abdomen: soft, Tender R side of the abdomen around what appears to be an injection site, no obvious hematoma or fluid collection, nondistended, + BS Extremities: trace edema BLEs Objective Last Vital Signs Temp 36.9 C 06/20/22 19:45 Pulse 80 06/20/22 19:45 Resp 16 06/20/22 20:24 BP 120/80 06/20/22 19:45 Pulse Ox 96 06/20/22 19:45 Laboratory Results - last 24 hr 06/20/22 06/20/22 06/20/22 06:27 06:27 06:27 WBC 6.92 RBC 4.19 L Hgb 11.8 L Hct 36.9 L MCV 88 MCH 28.2 MCHC 32.0 RDW 16.8 H Plt Count 356 MPV 9.7 Immature Gran % 1.7 Neutrophils % 55.1 Lymphocytes % 27.6 Monocytes % 11.4 Eosinophils % 3.5 Basophils % 0.7 Nucleated RBC % 0.0 Absolute Neutrophils 3.81 Absolute Lymphocytes 1.91 Absolute Monocytes 0.79 Absolute Eosinophils 0.24 Absolute Basophils 0.05 Sodium 137 Potassium 4.4 Chloride 98 Carbon Dioxide 31.5 Anion Gap 7.5 BUN 32 H Creatinine 1.2 Est GFR (CKD-EPI 2020) 58.89 Glucose 104 Calcium 9.5 Magnesium 2.2 C-Reactive Protein 4.25 H Procalcitonin 0.1 Urine Color Urine Clarity Urine pH Ur Specific [place] Urine Protein Urine Ketones Urine Blood Urine Nitrite Urine Bilirubin Urine Urobilinogen Ur Leukocyte Esterase Urine RBC Urine WBC Ur Epithelial Cells Urine Crystals Urine Bacteria Urine Casts Urine Mucus Urine Other Ur Culture Indicated? Urine Glucose 06/20/22 09:16 WBC RBC Hgb Hct MCV MCH MCHC RDW Plt Count MPV Immature Gran % Neutrophils % Lymphocytes % Monocytes % Eosinophils % Basophils % Nucleated RBC % Absolute Neutrophils Absolute Lymphocytes Absolute Monocytes Absolute Eosinophils Absolute Basophils Sodium Potassium Chloride Carbon Dioxide Anion Gap BUN Creatinine Est GFR (CKD-EPI 2020) Glucose Calcium Magnesium C-Reactive Protein Procalcitonin Urine Color Yellow Urine Clarity Clear Urine pH 5.5 Ur Specific [place] 1.010 Urine Protein Negative Urine Ketones Negative Urine Blood Negative Urine Nitrite Negative Urine Bilirubin Negative Urine Urobilinogen 0.2 Ur Leukocyte Esterase Trace H Urine RBC 0-2 Urine WBC 3-5 Ur Epithelial Cells Rare Urine Crystals Negative Urine Bacteria Negative Urine Casts Negative Urine Mucus Negative Urine Other Moderate Yeast Ur Culture Indicated? Yes Urine Glucose Negative
[2022-06-20] MEDS: Breeza Beverage 473 ML BTL PO ×2 (20:59→21:00)
[2022-06-20] MEDS: Gastrografin 120 ML BTL PO (20:59)
[2022-06-20] MEDS: Fosfomycin Tromethamine 3 GM PACKET PO (21:46)
[2022-06-20] MEDS: Omnipaque 350 MG/ML 100 ML BTL IJ (22:29)
[2022-06-20] MEDS: Normal Saline - Diluent 50 ML VIAL IJ (22:30)
[2022-06-20] MEDS: LORazepam 0.5 MG TAB PO (23:08)
--- NOTE | 2022-06-20 23:50 | DI.VRAD_ITS ---
PROCEDURE INFORMATION: Exam: CT Abdomen And Pelvis With Contrast Exam date and time: 06/20/2022 10:45 PM Age: 87 years old Clinical indication: Patient HX: Abdominal pain, unspecified TECHNIQUE: Imaging protocol: Computed tomography of the abdomen and pelvis with contrast. COMPARISON: CT ABDOMEN PELVIS WO 05/20/2022 8:07 PM FINDINGS: Pleural spaces: Moderate-large right pleural effusion partially visualized. Small left pleural effusion partially visualized, possibly loculated. Streaky and reticular opacities at the lung bases, nonspecific. Atelectasis? Scarring? Residual of previously seen patchy bibasilar consolidation? 0.9 cm x 1.5 cm nodular density partially visualized at the left lung base on image 1 of series 4, possibly the residua of patchy consolidation seen throughout the left lung base on the prior study from June 13, 2022. Continued posttreatment follow-up recommended to document complete resolution. Liver: See Vasculature finding. Gallbladder and bile ducts: Prior cholecystectomy. No biliary dilatation. Pancreas: Normal appearing pancreas. Spleen: Calcified splenic granulomas. Adrenal glands: Normal appearing adrenal glands. Kidneys and ureters: Normal appearing kidneys. No hydronephrosis. No obstructing ureteral stones. Stomach and bowel: Oral contrast administered. Stomach moderately distended with ingested material and fluid. No small bowel dilatation to suggest obstruction. Moderate retained fecal material throughout much of the colon. Distal sigmoid colon and rectum relatively well evacuated. Diverticulosis throughout the descending and sigmoid colon but no evidence of diverticulitis or colitis. Small duodenal lipoma measuring 5 mm on image 32 of series 4, also seen on the comparison exam from May 20, 2022. Appendix: Normal appendix, partially obscured. Intraperitoneal space: No gross ascites or free air. Vasculature: Normal caliber abdominal aorta. Extensive atherosclerotic calcification throughout the abdominal aorta and extending into the pelvic arteries. Heterogeneous hepatic attenuation, possibly caused by imaging between the portal venous and hepatic venous phases of contrast enhancement. No gross focal hepatic lesion demonstrated. Lymph nodes: No pathologically enlarged mesenteric, retroperitoneal, or pelvic sidewall lymph nodes. Urinary bladder: Urinary bladder largely collapsed around a suprapubic bladder catheter. Reproductive: Enlarged prostate gland measuring 5.0 cm x 5.7 cm maximum axial dimension. Bones/joints: No acute fracture seen among the bones of the abdomen or pelvis. Spinal degenerative change with discogenic degeneration, anterior osteophytes, posterior osteophytic ridging, and facet arthrosis. Multilevel central canal and neural foraminal narrowing. Soft tissues: Small foci of subcutaneous gas in the anterior abdominal wall, nonspecific. Recent subcutaneous injections or trauma? Small fat containing right inguinal region hernia. IMPRESSION: 1. Moderate retained fecal material throughout most of the colon with relatively good evacuation of the mid-distal sigmoid colon and rectum. 2. Moderate-large right pleural effusion partially visualized. Small left pleural effusion, possibly loculated. 3. Streaky and reticular opacities at the lung bases with partial visualization of a 0.9 cm x 1.5 cm nodular density at the left lung base. Although of uncertain etiology, this appearance is suspected to represent the residua of previously seen extensive patchy consolidation at the lung bases demonstrated on the prior study from June 13, 2022. Continued follow-up is recommended to document complete resolution. 4. Gross enlargement of the prostate gland measuring 5.0 cm x 5.7 cm maximum axial dimension. Dictated and Authenticated by: Micheal Rodriguez MD. Ordering:SAIRA Luna MD
[2022-06-21] VITALS (11 sets, daily range): BP systolic 101–115; BP diastolic 60–67; PULSE 64–117; RESP 18; TEMP 36.3–37; O2SAT 96–97
[2022-06-21] MEDS: Levothyroxine 100 MCG TAB PO (05:19)
[2022-06-21 07:42] LABS: Abs Immature Grans 0.13 10^3/uL (0.0-0.06); Absolute Basophil Count 0.02 10^3/uL (0.0-0.2); Absolute Lymphocyte Count 1.53 10^3/uL (1.2-3.4); Absolute Monocyte Count 0.62 10^3/uL (0.1-0.8); Absolute Neutrophil Count 2.72 10^3/uL (1.2-6.7); Basophils % 0.4; Eosinophils % 3.8; HCT 35.5 % (40.0-50.0); HGB 11.3 g/dL (13.5-17.5); Immature Grans % 2.5; Lymphocytes % 29.3; MCH 28.6 pg (27.0-33.0); MCHC 31.8 % (32.0-36.0); MCV 90 fL (80-95); MPV 9.8 fL (8.0-11.0); Monocytes % 11.9; Neutrophils % 52.1; Platelet Count 361 10^3/uL (130-400); RBC 3.95 10^6/uL (4.36-5.78); RDW 16.7 % (11.8-14.1); RDW-SD 54.6 fL; WBC 5.22 10^3/uL (4.4-10.8)
[2022-06-21] MEDS: Tiotropium Bromide-Respimat 10 PUFF INH IH (07:46)
[2022-06-21] MEDS: Lidocaine 5% Patch 1 PATCH TD (08:03)
[2022-06-21] MEDS: Polyethylene Glycol 3350 17 GM PACKET PO (08:03)
[2022-06-21] MEDS: Furosemide 20 MG TAB 40 MG PO ×2 (08:04→15:43)
[2022-06-21] MEDS: clonazePAM 0.5 MG TAB PO ×2 (08:04→21:15)
[2022-06-21] MEDS: Magnesium Oxide 400 MG TAB PO ×2 (08:04→21:15)
[2022-06-21] MEDS: Metoprolol CR 50 MG TABCR 150 MG PO (08:04)
[2022-06-21] MEDS: Loratidine 10 MG TAB PO (08:04)
[2022-06-21] MEDS: guaiFENesin 600 MG TABCR 1200 MG PO ×2 (08:04→21:15)
[2022-06-21] MEDS: Spironolactone 25 MG TAB 12.5 MG PO (08:04)
[2022-06-21] MEDS: Mirabegron 50 MG TABCR PO (08:04)
[2022-06-21] MEDS: Pantoprazole 40 MG TABCR PO (08:04)
[2022-06-21] MEDS: Dorzolamide 2% 10 ML BTL OU (08:05)
[2022-06-21] MEDS: Potassium Chloride Liquid 20 MEQ PKT PO ×2 (08:05→21:21)
[2022-06-21 08:26] LABS: Anion Gap 4.6 mmol/L (3-11); BUN 30 mg/dL (7-18); C-Reactive Protein 2.77 mg/dL (0.0-0.3); CO2 34.4 mmol/L (21.0-32.0); CREATININE 1.5 mg/dL (0.70-1.30); Calcium 9.3 mg/dL (8.5-10.1); Chloride 97 mmol/L (98-107); Estimated GFR 45.06 (mL/min/1.73m2); Glucose 86 mg/dL (74-106); Magnesium 2.3 mg/dL (1.8-2.4); Potassium 4.1 mmol/L (3.5-5.1); Sodium 136 mmol/L (136-145)
--- NOTE | 2022-06-21 12:10 | PT.INTREAT ---
PT Notes Visit Reasons: CAF w/ RVR, Multifocal PNA Inpatient Physical Therapy Treatment Note [facility] Date: 06/21/22 SUBJECTIVE: Brenden offers no complaints to me today. OBJECTIVE: [] BED MOBILITY/TRANSFERS Supine-sit: SBA Sit-supine: SBA Sit-stand:SBA Stand-sit: SBA GAIT Assistive Device: FWW Weight bearing: FWB Assist: SBA/CGA Distance: 100' in room Deviation: O2 supplement THEREX: seated global LE strengthening routine consisting of LAQ, hip flex, abd/add. Standing HR, march in place and sit to stand x3 ASSESSMENT: tolerated session well. No complaints of fatigue, SOB or LOB. PLAN: will continue to work on strength and endurance TREATMENT CODE/TIME: 20 min, [id number]
--- NOTE | 2022-06-21 15:33 | W.PM.PROGNOT ---
Date of Service Date of service: 06/21/22 Time of Service: 15:34 Assessment and Plan Assessment and plan (1) Abdominal pain: Status: Acute Assessment and plan: suspect abdominal wall hematoma in setting of injectable dvt ppx. Noted yesterday. CT abdomen/pelvis w/o abd wall findings. Restart lovenox. (2) Atrial fibrillation with rapid ventricular response: Status: Acute Assessment and plan: Rate now well controlled. Has been discussed with [facility] cardiology. They still do not have a bed and are not yet listing for transfers. Continue long acting metoprolol at current dose. Continue monitoring on telemetry. Hold pradaxa in anticipation of device generator change. (3) Multifocal pneumonia: Status: Acute Assessment and plan: Finished abx. O2 requirement 96% on RA though the patient says he uses home O2. RT is verifying whether he is on oxygen. Hemoptysis resolved. Sputum c&S from 06/17/22 neg; the one from 06/14/22: Normal telma. MRSA negative. Urine legionella negative. Strep urine Ag negative. Continue prn duonebs. Continue guaifenesin. Encourage Acapella and incentive spirometry (4) UTI (urinary tract infection): Status: Acute Assessment and plan: Due to ESBL, present on admission. S/p exchange of suprapubic catheter. Finish 3 day course of imipenem. Will give a dose of fosfomycin. UA with tr leukocyte est. Neg bacteria. + yeast. (5) Pacemaker: Status: Chronic Assessment and plan: Generator at end of life. The patient is not pacemaker dependent. Will require a generator change prior to his discharge but needs to have his infection better treated first. [facility] does not have capacity to accomodate the patient today or tomorrow (06/21 and 06/22). (6) Spinal stenosis: Status: Chronic Assessment and plan: Continue outpatient management. PT consulted. (7) BPH (benign prostatic hyperplasia): Status: Chronic Assessment and plan: S/p suprapubic catheter exchange. (8) COPD (chronic obstructive pulmonary disease): Status: Chronic Assessment and plan: Continue Spiriva and Flovent. Prn duonebs Stable. Qualifiers: COPD type: unspecified COPD Qualified Code(s): J44.9 - Chronic obstructive pulmonary disease, unspecified (9) DVT prophylaxis: Status: Acute Assessment and plan: Pradaxa on hold in anticipation of procedure. Lovenox. (10) Discharge planning issues: Status: Resolved Assessment and plan: Anticipate transfer to [facility] for generator change prior to return to [facility] and rehab. DNR/DNI, however interested in pacemaker battery change. Subjective Subjective Patient reports: no new complaints and afebrile; denies nausea or vomiting Interval history since last seen: Pt sitting in recliner; finished his breakfast. Doesn't engage in conversation but smiles and states he feels OK. Exam Narrative Exam Narrative: General: Pleasant elderly male. NAD. HEENT: EOMI, MMM Heart: irregularly irregular rhythm Lungs: Diminished breath sounds B, crackles at B bases. No increased work of breathing. Abdomen: soft, nondistended, + BS Extremities: trace edema BLEs Objective Last Vital Signs Temp 36.9 C 06/21/22 15:10 Pulse 73 06/21/22 15:10 Resp 18 06/21/22 15:10 BP 112/62 06/21/22 15:10 Pulse Ox 97 06/21/22 15:10 Laboratory Results - last 24 hr 06/21/22 06/21/22 06:45 06:45 WBC 5.22 RBC 3.95 L Hgb 11.3 L Hct 35.5 L MCV 90 MCH 28.6 MCHC 31.8 L RDW 16.7 H Plt Count 361 MPV 9.8 Immature Gran % 2.5 Neutrophils % 52.1 Lymphocytes % 29.3 Monocytes % 11.9 Eosinophils % 3.8 Basophils % 0.4 Nucleated RBC % 0.0 Absolute Neutrophils 2.72 Absolute Lymphocytes 1.53 Absolute Monocytes 0.62 Absolute Eosinophils 0.20 Absolute Basophils 0.02 Sodium 136 Potassium 4.1 Chloride 97 L Carbon Dioxide 34.4 H Anion Gap 4.6 BUN 30 H Creatinine 1.5 H Est GFR (CKD-EPI 2020) 45.06 Glucose 86 Calcium 9.3 Magnesium 2.3 C-Reactive Protein 2.77 H
[2022-06-21] MEDS: Mometasone 220 MCG 14 DOSE INHALER 2 PUFF IH (20:11)
[2022-06-21] MEDS: LORazepam 0.5 MG TAB PO (21:15)
[2022-06-21] MEDS: Melatonin 3 MG TAB PO (21:15)
[2022-06-21] MEDS: Docusate Sodium 100 MG CAP PO (21:15)
[2022-06-21] MEDS: Latanoprost 0.005% 2.5 ML BTL OU (21:20)
[2022-06-21] MEDS: Patch Removal 1 EACH TP (21:21)
[2022-06-22] VITALS (10 sets, daily range): BP systolic 100–116; BP diastolic 56–70; PULSE 57–85; RESP 15–20; TEMP 35.9–36.9; O2SAT 96–98
[2022-06-22] MEDS: Levothyroxine 100 MCG TAB PO (05:32)
[2022-06-22 06:20] LABS: Anion Gap 4.3 mmol/L (3-11); BUN 31 mg/dL (7-18); CO2 34.7 mmol/L (21.0-32.0); CREATININE 1.2 mg/dL (0.70-1.30); Calcium 9.5 mg/dL (8.5-10.1); Chloride 98 mmol/L (98-107); Estimated GFR 58.89 (mL/min/1.73m2); Glucose 92 mg/dL (74-106); Potassium 4.2 mmol/L (3.5-5.1); Sodium 137 mmol/L (136-145)
[2022-06-22] MEDS: Tiotropium Bromide-Respimat 10 PUFF INH IH (07:47)
[2022-06-22] MEDS: Potassium Chloride Liquid 20 MEQ PKT PO ×2 (08:08→20:51)
[2022-06-22] MEDS: Metoprolol CR 50 MG TABCR 150 MG PO (08:08)
[2022-06-22] MEDS: Magnesium Oxide 400 MG TAB PO ×2 (08:10→20:52)
[2022-06-22] MEDS: Pantoprazole 40 MG TABCR PO (08:10)
[2022-06-22] MEDS: Mirabegron 50 MG TABCR PO (08:11)
[2022-06-22] MEDS: guaiFENesin 600 MG TABCR 1200 MG PO ×2 (08:11→20:51)
[2022-06-22] MEDS: Loratidine 10 MG TAB PO (08:11)
[2022-06-22] MEDS: Furosemide 20 MG TAB 40 MG PO ×2 (08:11→16:20)
[2022-06-22] MEDS: Spironolactone 25 MG TAB 12.5 MG PO (08:11)
[2022-06-22] MEDS: clonazePAM 0.5 MG TAB PO ×2 (08:11→20:51)
[2022-06-22] MEDS: Lidocaine 5% Patch 1 PATCH TD (08:12)
[2022-06-22] MEDS: Dorzolamide 2% 10 ML BTL OU (08:22)
[2022-06-22] MEDS: Mometasone 220 MCG 14 DOSE INHALER 2 PUFF IH ×2 (08:58→19:26)
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
[2022-06-22] MEDS: Enoxaparin 40 MG/0.4 ML SYR SC (12:09)
--- NOTE | 2022-06-22 15:35 | PT.INTREAT ---
Date of service: 06/22/22 Time of Service: 11:30 PT Notes Visit Reasons: CAF w/ RVR, Multifocal PNA Inpatient Physical Therapy Treatment Note [facility] Date: 06/22/2022 PRECAUTIONS: Activity as tolerated, fall SUBJECTIVE: Brenden reports that he is feeling better today. He is pleasant and agreeable to participating in PT. OBJECTIVE: PAIN: No c/o pain BED MOBILITY/TRANSFERS: Sit-stand: SBA Stand-sit: SBA GAIT Assistive Device: FWW Weight bearing: Full Assist: SBA Distance: 300' Deviation: Improved step length and improved pacing, 1L O2 via NC THEREX: Patient was instructed in a LE strengthening program, completed in a seated position, to include: ankle pumps, LAQ, hip flexion and hip abduction. He demonstrates improved ROM today. ASSESSMENT: Patient tolerated session without complaint. He demonstrates improved gait with increased pacing and step length. He also continues to demonstrates improved ROM with ther ex. PLAN: Continue with global strengthening and general conditioning for improved mobility and activity tolerance. TREATMENT CODE/TIME: 21 minutes; [id number] (11:30)
--- NOTE | 2022-06-22 16:34 | W.PM.PROGNOT ---
Date of Service Date of service: 06/22/22 Time of Service: 16:34 Assessment and Plan Assessment and plan (1) Abdominal pain: Status: Acute Assessment and plan: suspect abdominal wall hematoma in setting of injectable dvt ppx. Noted yesterday. CT abdomen/pelvis w/o abd wall findings. Restarted lovenox / continue (2) Atrial fibrillation with rapid ventricular response: Status: Acute Assessment and plan: Rate now well controlled. Has been discussed with [facility] cardiology. They still do not have a bed and are not yet listing for transfers. Continue long acting metoprolol at current dose. Continue monitoring on telemetry. Hold pradaxa in anticipation of device generator change. (3) Multifocal pneumonia: Status: Acute Assessment and plan: Finished abx. O2 requirement 96% on RA though the patient says he uses home O2. RT is verifying whether he is on oxygen. Hemoptysis resolved. Sputum c&S from 06/17/22 neg; the one from 06/14/22: Normal telma. MRSA negative. Urine legionella negative. Strep urine Ag negative. Continue prn duonebs. Continue guaifenesin. Encourage Acapella and incentive spirometry (4) UTI (urinary tract infection): Status: Acute Assessment and plan: Due to ESBL, present on admission. S/p exchange of suprapubic catheter. Finish 3 day course of imipenem. Will give a dose of fosfomycin. UA with tr leukocyte est. Neg bacteria. + yeast. (5) Pacemaker: Status: Chronic Assessment and plan: Generator at end of life. The patient is not pacemaker dependent. Will require a generator change prior to his discharge but needs to have his infection better treated first. [facility] does not have capacity to accomodate the patient today. Will call again tomorrow. (6) Spinal stenosis: Status: Chronic Assessment and plan: Continue outpatient management. PT consulted. (7) BPH (benign prostatic hyperplasia): Status: Chronic Assessment and plan: S/p suprapubic catheter exchange. (8) COPD (chronic obstructive pulmonary disease): Status: Chronic Assessment and plan: Continue Spiriva and Flovent. Prn duonebs Stable. Qualifiers: COPD type: unspecified COPD Qualified Code(s): J44.9 - Chronic obstructive pulmonary disease, unspecified (9) DVT prophylaxis: Status: Acute Assessment and plan: Pradaxa on hold in anticipation of procedure. Lovenox. (10) Discharge planning issues: Status: Resolved Assessment and plan: Anticipate transfer to [facility] for generator change prior to return to [facility] and rehab. DNR/DNI, however interested in pacemaker battery change. Subjective Subjective Patient reports: no new complaints, tolerating a regular diet, shortness of breath (Improving) and afebrile; denies nausea or vomiting Exam Narrative Exam Narrative: General: Pleasant elderly male. NAD. Asleep/arousable. HEENT: EOMI, MMM Heart: irregularly irregular rhythm Lungs: Diminished breath sounds B. No increased WOB Abdomen: soft, nondistended, + BS Extremities: trace edema BLEs Objective Last Vital Signs Temp 36 C L 06/22/22 16:22 Pulse 82 06/22/22 16:22 Resp 18 06/22/22 16:22 BP 102/62 06/22/22 16:22 Pulse Ox 98 06/22/22 16:22 Laboratory Results - last 24 hr 06/22/22 05:42 Sodium 137 Potassium 4.2 Chloride 98 Carbon Dioxide 34.7 H Anion Gap 4.3 BUN 31 H Creatinine 1.2 Est GFR (CKD-EPI 2020) 58.89 Glucose 92 Calcium 9.5
[2022-06-22] MEDS: Normal Saline Flush 10 ML SYR IVP (20:51)
[2022-06-22] MEDS: Melatonin 3 MG TAB PO (21:57)
[2022-06-22] MEDS: LORazepam 0.5 MG TAB PO (21:58)
[2022-06-22] MEDS: Latanoprost 0.005% 2.5 ML BTL OU (22:03)
[2022-06-22] MEDS: Patch Removal 1 EACH TP (22:35)
[2022-06-23] VITALS (10 sets, daily range): BP systolic 98–128; BP diastolic 54–81; PULSE 60–93; RESP 14–21; TEMP 36.2–36.7; O2SAT 94–97
[2022-06-23] MEDS: Levothyroxine 100 MCG TAB PO (06:13)
[2022-06-23] MEDS: Mometasone 220 MCG 14 DOSE INHALER 2 PUFF IH ×2 (07:54→19:40)
[2022-06-23] MEDS: Tiotropium Bromide-Respimat 10 PUFF INH IH (07:54)
[2022-06-23] MEDS: Potassium Chloride Liquid 20 MEQ PKT PO ×2 (08:48→20:08)
[2022-06-23] MEDS: Metoprolol CR 50 MG TABCR 150 MG PO (08:49)
[2022-06-23] MEDS: Loratidine 10 MG TAB PO (08:49)
[2022-06-23] MEDS: Mirabegron 50 MG TABCR PO (08:49)
[2022-06-23] MEDS: Furosemide 20 MG TAB 40 MG PO ×2 (08:49→16:15)
[2022-06-23] MEDS: Pantoprazole 40 MG TABCR PO (08:49)
[2022-06-23] MEDS: Magnesium Oxide 400 MG TAB PO ×2 (08:49→20:07)
[2022-06-23] MEDS: Spironolactone 25 MG TAB 12.5 MG PO (08:50)
[2022-06-23] MEDS: clonazePAM 0.5 MG TAB PO ×2 (08:50→20:08)
[2022-06-23] MEDS: guaiFENesin 600 MG TABCR 1200 MG PO ×2 (08:50→20:08)
[2022-06-23] MEDS: Polyethylene Glycol 3350 17 GM PACKET PO (08:51)
[2022-06-23] MEDS: Lidocaine 5% Patch 1 PATCH TD (08:51)
[2022-06-23] MEDS: Dorzolamide 2% 10 ML BTL OU (08:52)
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
[2022-06-23] MEDS: fentaNYL 50 MCG PATCH TD (09:52)
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
[2022-06-23] MEDS: Enoxaparin 40 MG/0.4 ML SYR SC (12:49)
[2022-06-23] MEDS: Normal Saline Flush 10 ML SYR IVP (16:15)
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
--- NOTE | 2022-06-23 17:40 | PGE_ITS ---
Date of Service Date of service: 06/23/22 Time of Service: 17:40 Assessment and Plan Assessment and plan (1) Abdominal pain: Status: Acute Assessment and plan: suspect abdominal wall hematoma in setting of injectable dvt ppx. Noted yesterday. CT abdomen/pelvis w/o abd wall findings. Restarted lovenox / continue (2) Atrial fibrillation with rapid ventricular response: Status: Acute Assessment and plan: Rate now well controlled. Has been discussed with [facility] cardiology. They still do not have a bed and are not yet listing for transfers. Continue long acting metoprolol at current dose. Continue monitoring on telemetry. Hold pradaxa in anticipation of device generator change. (3) Multifocal pneumonia: Status: Acute Assessment and plan: Finished abx. On 1-2L supplemental O2 with saturations in the mid to upper 90's. Hemoptysis resolved. Sputum c&S from 06/17/22 neg; the one from 06/14/22: Normal telma. MRSA negative. Urine legionella negative. Strep urine Ag negative. Continue prn duonebs. Continue guaifenesin. Encourage Acapella and incentive spirometry (4) UTI (urinary tract infection): Status: Acute Assessment and plan: Due to ESBL, present on admission. S/p exchange of suprapubic catheter. Finish 3 day course of imipenem. Will give a dose of fosfomycin. UA with tr leukocyte est. Neg bacteria. + yeast. (5) Pacemaker: Status: Chronic Assessment and plan: Generator at end of life. The patient is not pacemaker dependent. Intermittent pacer spikes noted. Discussed with director cloud transformation at [facility]. Of note, he had not had any f/u of his pacemaker since the insertion in 2012. Cardiology felt that, if patient agreeable, he could discharge and then have an appt scheduled at [facility] for pacer evaluation as outpt. Pt had some concern about leaving the hospital w/o a new pacer generator but he decided that would be OK. Planning d/c tomorrow. (6) Spinal stenosis: Status: Chronic Assessment and plan: Continue outpatient management. PT consulted. (7) BPH (benign prostatic hyperplasia): Status: Chronic Assessment and plan: S/p suprapubic catheter exchange. (8) COPD (chronic obstructive pulmonary disease): Status: Chronic Assessment and plan: Continue Spiriva and Flovent. Prn duonebs Stable. Qualifiers: COPD type: unspecified COPD Qualified Code(s): J44.9 - Chronic obstructive pulmonary disease, unspecified (9) DVT prophylaxis: Status: Acute Assessment and plan: Pradaxa on hold in anticipation of procedure. Lovenox. (10) Discharge planning issues: Status: Resolved Assessment and plan: Planning [facility]. Subjective Subjective Patient reports: no new complaints, tolerating a regular diet and afebrile; denies nausea, vomiting or shortness of breath Interval history since last seen: No CP/palpitations. Has been walking in hallway. Exam Narrative Exam Narrative: General: Pleasant elderly male. NAD. Asleep/arousable. Conversant. HEENT: EOMI, MMM Heart: irregularly irregular rhythm Lungs: Diminished breath sounds B. No increased WOB Abdomen: soft, nondistended, + BS Extremities: trace edema BLEs Objective Last Vital Signs Temp 36.7 C 06/23/22 15:46 Pulse 60 06/23/22 15:46 Resp 18 06/23/22 15:46 BP 114/63 06/23/22 15:46 Pulse Ox 97 06/23/22 15:46
[2022-06-23] MEDS: Docusate Sodium 100 MG CAP PO (20:08)
[2022-06-24] VITALS (7 sets, daily range): BP systolic 102–120; BP diastolic 63–73; PULSE 60–73; RESP 16–18; TEMP 36–36.8; O2SAT 96–99
[2022-06-24] MEDS: Acetaminophen 325 MG TAB PO ×2 (00:10→20:51)
[2022-06-24] MEDS: Melatonin 3 MG TAB PO ×2 (00:16→22:34)
[2022-06-24] MEDS: LORazepam 0.5 MG TAB PO ×2 (00:16→22:34)
[2022-06-24] MEDS: Levothyroxine 100 MCG TAB PO (06:37)
[2022-06-24] MEDS: Tiotropium Bromide-Respimat 10 PUFF INH IH (07:44)
[2022-06-24] MEDS: Mometasone 220 MCG 14 DOSE INHALER 2 PUFF IH ×2 (07:44→20:02)
[2022-06-24] MEDS: Dorzolamide 2% 10 ML BTL OU (09:06)
[2022-06-24] MEDS: Loratidine 10 MG TAB PO (09:07)
[2022-06-24] MEDS: Metoprolol CR 50 MG TABCR 150 MG PO (09:07)
[2022-06-24] MEDS: Magnesium Oxide 400 MG TAB PO ×2 (09:07→19:57)
[2022-06-24] MEDS: Potassium Chloride Liquid 20 MEQ PKT PO ×2 (09:07→19:57)
[2022-06-24] MEDS: clonazePAM 0.5 MG TAB PO ×2 (09:07→19:57)
[2022-06-24] MEDS: Mirabegron 50 MG TABCR PO (09:07)
[2022-06-24] MEDS: Furosemide 20 MG TAB 40 MG PO ×2 (09:07→15:23)
[2022-06-24] MEDS: Spironolactone 25 MG TAB 12.5 MG PO (09:07)
[2022-06-24] MEDS: guaiFENesin 600 MG TABCR 1200 MG PO ×2 (09:08→19:57)
[2022-06-24] MEDS: Lidocaine 5% Patch 1 PATCH TD (09:08)
[2022-06-24] MEDS: Pantoprazole 40 MG TABCR PO (09:08)
[2022-06-24] MEDS: Polyethylene Glycol 3350 17 GM PACKET PO (09:09)
[2022-06-24] MEDS: Normal Saline Flush 10 ML SYR IVP (09:10)
--- NOTE | 2022-06-24 09:58 | PDOC.CMPRO ---
- If Service Date Differs Date of service: 06/24/22 Time of Service: 09:58 Care Management Progress Note S/O: Brenden remains at [facility] awaiting transfer to a tertiary care facility for a pacemaker battery change. It was hoped that he could be transferred back to [facility] where he resides today, but they have declined to take him back until the procedure is done. There are no beds at either [facility] or [facility] and Brenden has been on a waiting list for a week or more. The issue has been referred to senior administration and it was suggested that the provider contact the provider at [facility] to discuss. A: 87 year old admitted to [facility] 06/13/22 for A-fib with RVR, multifocal pneumonia P: Brenden has been medically cleared for discharge however, [facility] is declining to take him back until he has his pacemaker serviced. He will ultimately return [facility] via the facility's W/C van. CM continues to follow and will support Brenden and his discharge needs.
--- NOTE | 2022-06-24 10:20 | PT.INTREAT ---
Date of service: 06/24/22 Time of Service: 09:30 PT Notes Visit Reasons: CAF w/ RVR, Multifocal PNA Inpatient Physical Therapy Treatment Note [facility] Date: 06/24/2022 PRECAUTIONS: Activity as tolerated, fall SUBJECTIVE: Brenden reports that he needs to use the toilet. OBJECTIVE: PAIN: No c/o pain BED MOBILITY/TRANSFERS: Sit-stand: SBA Stand-sit: SBA GAIT Assistive Device: FWW Weight bearing: Full Assist: SBA Distance: 10' Deviation: Improved step length and improved pacing, 1L O2 via NC ASSESSMENT: Limited today as patient needed to use the restroom. PLAN: Continue with global strengthening and general conditioning for improved mobility and activity tolerance. TREATMENT CODE/TIME: 10 minutes; 33711 (09:30)
--- NOTE | 2022-06-24 13:08 | CHAPLAIN ---
Brenden was up in the chair when I visited. He'd just finished lunch and said he was enjoying the sunshine coming through his window. 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 When I asked if he was worried about anything, he said he thought everything with his pacemaker would be figured out in a couple of days and he'd go back to [facility], so he was waiting to hear about that. When I asked if he needed anything, he said no, and the was fairly easy to suit.
[2022-06-24] MEDS: Enoxaparin 40 MG/0.4 ML SYR SC (14:18)
--- NOTE | 2022-06-24 18:39 | W.PM.PROGNOT ---
Date of Service Date of service: 06/24/22 Time of Service: 18:39 Assessment and Plan Assessment and plan (1) Abdominal pain: Status: Acute Assessment and plan: Resolved. suspect abdominal wall hematoma in setting of injectable dvt ppx. Noted yesterday. CT abdomen/pelvis w/o abd wall findings. Restarted lovenox / continue (2) Atrial fibrillation with rapid ventricular response: Status: Acute Assessment and plan: Rate now well controlled. Continue long acting metoprolol at current dose. Continue monitoring on telemetry. Stop lovenox and resume dabigantran. No longer doing to [facility] soon for generator replacement of pacemaker. (3) Multifocal pneumonia: Status: Acute Assessment and plan: Finished abx. On 0-2L supplemental O2 with saturations in the mid to upper 90's. Hemoptysis resolved. Sputum c&S from 06/17/22 neg; the one from 06/14/22: Normal telma. MRSA negative. Urine legionella negative. Strep urine Ag negative. Continue prn duonebs. Continue guaifenesin. Encourage Acapella and incentive spirometry (4) UTI (urinary tract infection): Status: Acute Assessment and plan: Due to ESBL, present on admission. S/p exchange of suprapubic catheter. Finished 3 day course of imipenem. Gave a dose of fosfomycin. UA with tr leukocyte est. Neg bacteria. + yeast. (5) Pacemaker: Status: Chronic Assessment and plan: Generator at end of life. The patient is not pacemaker dependent. Intermittent pacer spikes noted. Discussed with instruction dean at [facility]. Of note, he had not had any f/u of his pacemaker since the insertion in 2012. Cardiology felt that, if patient agreeable, he could discharge and then have an appt scheduled at [facility] for pacer evaluation as outpt. Pt had some concern about leaving the hospital w/o a new pacer generator but he decided that would be OK. The PA from the cardiology device clinic evaluated pt. Schedule pt with device clinic at [facility] denied the patients return to their facility. The reasoning stated was new onset atrial fibrillation and the pacemaker concern. He is not a new onset afib. Will need to discuss this with their Desk Pens Assembler. He has had no arrhythmias or need for pacing, but knowing that could change. However, the pacemaker is not in place because of a heart block. Any likely arrhythmia that the pacemaker would not be able to control would likely be a tachyarrhythmia. In that event he would be sent to the ED for evaluation and treatment. (6) Spinal stenosis: Status: Chronic Assessment and plan: Continue outpatient management. PT consulted. (7) BPH (benign prostatic hyperplasia): Status: Chronic Assessment and plan: S/p suprapubic catheter exchange. (8) COPD (chronic obstructive pulmonary disease): Status: Chronic Assessment and plan: Continue Spiriva and Flovent. Prn duonebs Stable. Qualifiers: COPD type: unspecified COPD Qualified Code(s): J44.9 - Chronic obstructive pulmonary disease, unspecified (9) DVT prophylaxis: Status: Acute Assessment and plan: Pradaxa on hold in anticipation of procedure. Lovenox. (10) Discharge planning issues: Status: Resolved Assessment and plan: Planning D/C back to [facility] tomorrow. Subjective Subjective Patient reports: no new complaints, tolerating a regular diet and afebrile; denies nausea, vomiting or shortness of breath Interval history since last seen: No CP/palpitations Exam Narrative Exam Narrative: General: Pleasant elderly male. NAD. HEENT: EOMI, MMM Heart: irregularly irregular rhythm Lungs: Diminished breath sounds B. No increased WOB Abdomen: soft, nondistended, + BS Extremities: trace edema BLEs Objective Last Vital Signs Temp 36.1 C L 06/24/22 15:50 Pulse 60 06/24/22 15:50 Resp 16 06/24/22 15:50 BP 102/63 06/24/22 15:50 Pulse Ox 97 06/24/22 15:50
[2022-06-24] MEDS: Docusate Sodium 100 MG CAP PO (19:57)
[2022-06-24] MEDS: Patch Removal 1 EACH TP (22:00)
[2022-06-24] MEDS: Latanoprost 0.005% 2.5 ML BTL OU (22:34)
[2022-06-25] VITALS (7 sets, daily range): BP systolic 98–120; BP diastolic 60–76; PULSE 60–90; RESP 14–18; TEMP 36.1–38.1; O2SAT 95–98
[2022-06-25] MEDS: Levothyroxine 100 MCG TAB PO (06:11)
[2022-06-25] MEDS: Polyethylene Glycol 3350 17 GM PACKET PO (07:52)
[2022-06-25] MEDS: Potassium Chloride Liquid 20 MEQ PKT PO ×2 (07:52→23:22)
[2022-06-25] MEDS: guaiFENesin 600 MG TABCR 1200 MG PO ×2 (07:53→20:34)
[2022-06-25] MEDS: Loratidine 10 MG TAB PO (07:53)
[2022-06-25] MEDS: Spironolactone 25 MG TAB 12.5 MG PO (07:53)
[2022-06-25] MEDS: Furosemide 20 MG TAB 40 MG PO ×2 (07:53→15:33)
[2022-06-25] MEDS: Pantoprazole 40 MG TABCR PO (07:53)
[2022-06-25] MEDS: Metoprolol CR 50 MG TABCR 150 MG PO (07:53)
[2022-06-25] MEDS: clonazePAM 0.5 MG TAB PO ×2 (07:53→20:33)
[2022-06-25] MEDS: Lidocaine 5% Patch 1 PATCH TD (07:53)
[2022-06-25] MEDS: Magnesium Oxide 400 MG TAB PO ×2 (07:53→20:35)
[2022-06-25] MEDS: Mirabegron 50 MG TABCR PO (07:54)
[2022-06-25] MEDS: Dorzolamide 2% 10 ML BTL OU (08:00)
[2022-06-25] MEDS: Tiotropium Bromide-Respimat 10 PUFF INH IH (08:48)
[2022-06-25] MEDS: Mometasone 220 MCG 14 DOSE INHALER 2 PUFF IH ×2 (08:50→23:24)
--- NOTE | 2022-06-25 08:52 | CMPROGNOTE_ITS ---
- If Service Date Differs Date of service: 06/25/22 Time of Service: 08:52 Care Management Progress Note S/O: Brenden was sitting up in bed when CM met with him. There had been a concern about his transfer back to [facility] because of the pacemaker issue but today CM was notified by [facility] that Brenden could return tomorrow. CM informed Brenden but his response was not as expected. He began to cry and asked how long this was going to take. When probed he identified this as being how long he will live. After a long discussion, it became clear that Brenden feared we had given up on him and were sending him back to rehab essentially to . He fears that if his pacemaker battery isn't changed immediately that he is in imminent danger. CM repeated what the provider explained and that is that 2 nylon machine operator both agreed that it could safely be scheduled as an outpatient procedure. After the conversation, Brenden stated that he felt a lot better and is agreeable to the transfer back to rehab tomorrow. A: 87 year old admitted to [facility] 06/13/22 for A-fib with RVR, multifocal pneumonia P: Brenden will be transferred back to [facility] tomorrow via facility wheelchair van. He will follow up with the facility provider and plan of care. CM continues to follow and will support Brenden and his discharge needs.
--- NOTE | 2022-06-25 14:04 | PT.INTREAT ---
Date of service: 06/25/22 Time of Service: 13:24 PT Notes Visit Reasons: CAF w/ RVR, Multifocal PNA Inpatient Physical Therapy Treatment Note [facility] Date: 06/25/2022 PRECAUTIONS: Activity as tolerated, fall SUBJECTIVE: Brenden is pleasant and agreeable to participating in PT. He reports that he is feeling tired and cold. OBJECTIVE: PAIN: No c/o pain BED MOBILITY/TRANSFERS: Sit-supine: I Sit-stand: SBA Stand-sit: SBA GAIT Assistive Device: FWW Weight bearing: Full Assist: SBA Distance: 300' Deviation: Decreased step length and improved pacing, 1L O2 via NC THEREX: Patient was instructed in a LE strengthening and stabilization program, completed in a supine position, to include: ankle pumps, quad sets, glute sets, heel slides and hip abduction. ASSESSMENT: Patient tolerated session with minimal c/o SOB with gait training. He continues to demonstrate slow pacing and short step-height and length. PLAN: Continue with global strengthening and general conditioning for improved mobility and activity tolerance. TREATMENT CODE/TIME: 20 minutes; 63730 (13:24)
[2022-06-25] MEDS: Acetaminophen 325 MG TAB PO ×2 (15:32→23:21)
--- NOTE | 2022-06-25 15:56 | W.PM.PROGNOT ---
Date of Service Date of service: 06/25/22 Time of Service: 15:57 Assessment and Plan Assessment and plan (1) Atrial fibrillation with rapid ventricular response: Status: Acute Assessment and plan: Rate now well controlled. Continue long acting metoprolol at current dose. Continue monitoring on telemetry. Cont dabigantran. No longer doing to [facility] soon for generator replacement of pacemaker from [facility] / Outpt referral made. (2) Multifocal pneumonia: Status: Acute Assessment and plan: Finished abx. On 0-2L supplemental O2 with saturations in the mid to upper 90's. Hemoptysis resolved. Sputum c&S from 06/17/22 neg; the one from 06/14/22: Normal telma. MRSA negative. Urine legionella negative. Strep urine Ag negative. Continue prn duonebs. Continue guaifenesin. Encourage Acapella and incentive spirometry (3) UTI (urinary tract infection): Status: Acute Assessment and plan: Due to ESBL, present on admission. S/p exchange of suprapubic catheter. Finished 3 day course of imipenem. Gave a dose of fosfomycin. UA with tr leukocyte est. Neg bacteria. + yeast. (4) Pacemaker: Status: Chronic Assessment and plan: Generator at end of life. The patient is not pacemaker dependent. Intermittent pacer spikes noted. Discussed with microfilm duplicating unit supervisor at [facility]. Of note, he had not had any f/u of his pacemaker since the insertion in 2012. Cardiology felt that, if patient agreeable, he could discharge and then have an appt scheduled at [facility] for pacer evaluation as outpt. Pt had some concern about leaving the hospital w/o a new pacer generator but he decided that would be OK. The PA from the cardiology device clinic evaluated pt. Sent referral for device clinic at [facility]. (5) Spinal stenosis: Status: Chronic Assessment and plan: Continue outpatient management. PT consulted. (6) BPH (benign prostatic hyperplasia): Status: Chronic Assessment and plan: S/p suprapubic catheter exchange. (7) COPD (chronic obstructive pulmonary disease): Status: Chronic Assessment and plan: Continue Spiriva and Flovent. Prn duonebs Stable. Qualifiers: COPD type: unspecified COPD Qualified Code(s): J44.9 - Chronic obstructive pulmonary disease, unspecified (8) DVT prophylaxis: Status: Acute Assessment and plan: Pradaxa. (9) Discharge planning issues: Status: Resolved Assessment and plan: Planning D/C back [facility] tomorrow / has been arranged. DNR/DNI Subjective Subjective Patient reports: no new complaints, tolerating a regular diet and afebrile; denies nausea, vomiting or shortness of breath Exam Narrative Exam Narrative: General: Pleasant elderly male. NAD. HEENT: EOMI, MMM Heart: irregularly irregular rhythm Lungs: Diminished breath sounds B. No increased WOB Abdomen: soft, nondistended, + BS Extremities: trace edema BLEs Psych: affect flat. Oriented x 3 Objective Last Vital Signs Temp 37.8 C H 06/25/22 15:36 Pulse 62 06/25/22 15:36 Resp 18 06/25/22 15:36 BP 116/76 06/25/22 15:36 Pulse Ox 97 06/25/22 15:36
[2022-06-25] MEDS: Docusate Sodium 100 MG CAP PO (20:33)
[2022-06-25] MEDS: Melatonin 3 MG TAB PO (23:21)
[2022-06-25] MEDS: LORazepam 0.5 MG TAB PO (23:21)
[2022-06-25] MEDS: Latanoprost 0.005% 2.5 ML BTL OU (23:24)
[2022-06-26] MEDS: Patch Removal 1 EACH TP (00:32)
[2022-06-26 03:16] VITALS: BP 104/73; PULSE 73; RESP 16; TEMP 36.1; O2SAT 98
[2022-06-26] MEDS: Levothyroxine 100 MCG TAB PO (04:44)
[2022-06-26 06:39] LABS: Anion Gap 3.7 mmol/L (3-11); BUN 41 mg/dL (7-18); CO2 33.3 mmol/L (21.0-32.0); CREATININE 1.3 mg/dL (0.70-1.30); Calcium 9.6 mg/dL (8.5-10.1); Chloride 99 mmol/L (98-107); Glucose 95 mg/dL (74-106); Potassium 4.9 mmol/L (3.5-5.1); Sodium 136 mmol/L (136-145)
[2022-06-26 06:42] VITALS: BP 100/54; PULSE 63; RESP 15; TEMP 36.6; O2SAT 95
[2022-06-26] MEDS: Mometasone 220 MCG 14 DOSE INHALER 2 PUFF IH (07:42)
[2022-06-26] MEDS: Tiotropium Bromide-Respimat 10 PUFF INH IH (07:42)
[2022-06-26] MEDS: Potassium Chloride Liquid 20 MEQ PKT PO (07:53)
[2022-06-26] MEDS: Lidocaine 5% Patch 1 PATCH TD (07:53)
[2022-06-26] MEDS: Furosemide 20 MG TAB 40 MG PO (07:54)
[2022-06-26] MEDS: clonazePAM 0.5 MG TAB PO (07:54)
[2022-06-26] MEDS: Spironolactone 25 MG TAB 12.5 MG PO (07:54)
[2022-06-26] MEDS: Dorzolamide 2% 10 ML BTL OU (07:54)
[2022-06-26] MEDS: Metoprolol CR 50 MG TABCR 150 MG PO (07:55)
[2022-06-26] MEDS: Pantoprazole 40 MG TABCR PO (07:55)
[2022-06-26] MEDS: Mirabegron 50 MG TABCR PO (07:55)
[2022-06-26] MEDS: Magnesium Oxide 400 MG TAB PO (07:55)
[2022-06-26] MEDS: Loratidine 10 MG TAB PO (07:55)
[2022-06-26] MEDS: guaiFENesin 600 MG TABCR 1200 MG PO (07:55)
[2022-06-26 08:43] LABS: Source Nasal/Nares
--- NOTE | 2022-06-26 08:59 | PDOC.CMDIS ---
- If Service Date Differs Date of service: 06/26/22 Time of Service: 08:59 LACE Index Scoring Tool - Questions: Length of Stay (in days): 7 - 13 Acuity (Admit via E.D.?): Yes Comorbidities: PVD, Congestive Heart Failure, Chronic Pulmonary Disease, Liver or Renal Disease E.D. Visits: 15 - Answers: Total Score: 17 Risk of Readmission: High Risk Care Management Discharge Reason for Hospitalization: CAF with RVR, multifocal PNA Discharge Plan: Dino is discharged back to [facility] via facility w/c van. He will follow up with community providers and discharge plan of care as prescribed. Patient/Family Education Needs: Review discharge instructions, limitations and plan to follow up with facility providers. Discuss ask me three and goals of self care. Services Needed at Discharge: Nursing Home Facility ([facility])
[2022-06-26 09:31] LABS: COVID-19 PCR Negative (Negative)
[2022-06-26] MEDS: fentaNYL 50 MCG PATCH TD (11:04)
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
--- NOTE | 2022-06-26 13:45 | CHAPLAIN ---
Brenden was being discharged today and transferred back to the [facility]. I had a brief visit with him before he left and gave him a prayer shawl. He shared some personal history and told me about hunting with his brothers.
== END 2022-06-26 12:56 | disposition skilled nursing facility (03) | DRG 308 ==
LOC: ER 20:09 → ICU 22:48 → MS 06-14 18:33
PROVIDERS: Family Medicine; Internal Medicine; Admitting Provider Family Medicine; Emergency Provider Physician Assistant; PCP Family Medicine; Visit Provider Family Medicine
DX: I48.20 Chronic atrial fibrillation, unspecified (principal); J18.9 Pneumonia, unspecified organism; I13.0 Hypertensive heart and chronic kidney disease with heart failure and stage 1 through stage 4 chronic kidney disease, or unspecified chronic kidney disease; N39.0 Urinary tract infection, site not specified; Z68.1 Body mass index [BMI] 19.9 or less, adult; J44.0 Chronic obstructive pulmonary disease with (acute) lower respiratory infection; I50.20 Unspecified systolic (congestive) heart failure; Z16.12 Extended spectrum beta lactamase (ESBL) resistance; I49.5 Sick sinus syndrome; Z95.0 Presence of cardiac pacemaker; M48.00 Spinal stenosis, site unspecified; Z66 Do not resuscitate; R62.7 Adult failure to thrive; E87.6 Hypokalemia; R54 Age-related physical debility; Z79.891 Long term (current) use of opiate analgesic; Z99.81 Dependence on supplemental oxygen; R09.02 Hypoxemia; K21.9 Gastro-esophageal reflux disease without esophagitis; G89.29 Other chronic pain; M54.50 Low back pain, unspecified; R13.10 Dysphagia, unspecified; E03.9 Hypothyroidism, unspecified; N40.1 Benign prostatic hyperplasia with lower urinary tract symptoms; R33.9 Retention of urine, unspecified; F41.9 Anxiety disorder, unspecified; K57.30 Diverticulosis of large intestine without perforation or abscess without bleeding; N18.9 Chronic kidney disease, unspecified; I70.203 Unspecified atherosclerosis of native arteries of extremities, bilateral legs; G47.00 Insomnia, unspecified; I83.12 Varicose veins of left lower extremity with inflammation; I83.11 Varicose veins of right lower extremity with inflammation; K59.09 Other constipation; I08.3 Combined rheumatic disorders of mitral, aortic and tricuspid valves; Z93.51 Cutaneous-vesicostomy status; B96.20 Unspecified Escherichia coli [E. coli] as the cause of diseases classified elsewhere; R10.9 Unspecified abdominal pain
CPT/HCPCS: 36415; 51705; 71275; 80048; 80053; 84145; 85027; 87040; 87077; 87081; 87449; 87635; 87637; 93005; 94640; 96361; 96365; 96366; 96368; 96375; 97110; 97162; 97530; 99222; 99231; 99291; J1650; 74177; 81003; 81015; 83735; 83880; 84132; 84443; 84484; 85025; 85379; 85610; 85730; 86140; 87070; 87086; 87186; 87205; 87581; 87899; 93010; 94667; 99223; 99232; 99233; 99239; J0456; J0696; J0743; J1940; J3490

== ENCOUNTER → 2022-06-24 10:37 | Outpatient (BNVA) | payer MEDICARE, MEDICAID, SELFPAY | PROVIDERS: PCP Family Medicine; Referring Provider Family Medicine; Visit Provider Physician Assistant | CPT/HCPCS: 99223 ==

== ENCOUNTER 2022-07-01 20:58 | Emergency (ER) | payer MEDICARE, MEDICAID, SELFPAY ==
[2022-07-01] MEDS: Acetaminophen 325 MG TAB 650 MG PO (22:12)
[2022-07-01] MEDS: MORPHine 4 MG/ML SYR IM (22:14)
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
== END 2022-07-01 23:14 | disposition home or self-care (01) ==
PROVIDERS: Emergency Provider Nurse Practitioner Family; PCP Family Medicine
DX: R07.89 Other chest pain (principal); G89.29 Other chronic pain
CPT/HCPCS: 96372; 99284; 99283; J2270

== ENCOUNTER 2022-07-06 20:18 | Emergency (ER) | payer MEDICARE, MEDICAID, SELFPAY ==
--- NOTE | 2022-07-06 20:15 | RT.EKG_ITS ---
APPROVED REPORT Exam: Resting ECG Reason for Exam: Chest Pain Patient Location: E HR:97 bpm ECG Measurements Heart Rate 97 AXIS OR [id number] P [id number] QRSd 87 QRS 28 QT 369 T 40 QTc 469 Conclusion Afib/flut and V-paced complexes...other complexes, A-rate>240 Low voltage, extremity leads...all extremity leads <0.5mV
[2022-07-06 20:19] VITALS: BP 116/66; PULSE 79; RESP 13; TEMP 36.6; O2SAT 97
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
--- NOTE | 2022-07-06 20:45 | DI.RAD_ITS ---
Exam(s) XR PORTABLE CHEST AP EXAM: XR PORTABLE CHEST AP CLINICAL HISTORY: chest pain. TECHNIQUE: 2D digital imaging was performed. COMPARISON: CR,XR XR CHEST 1V IN DI DEPT from 05/03/2022 FINDINGS: Single AP portable view. Bipolar pacemaker with lead tips in right atrium and RV again noted. [place] over left upper chest- shoulder again noted. Heart size is upper normal. The mediastinum is not widened. COPD emphysematous changes again noted but no new infiltrates nor pleural effusions. No pulmonary ed ronaldo. IMPRESSION: No acute pulmonary findings on this single AP portable view of the chest. Emphysematous COPD changes again noted. Cardiac pacemaker. No pulmonary edema DATA REPOSITORY: RADIATION DOSE DELIVERED:
[2022-07-06 20:53] LABS: Abs Immature Grans 0.01 10^3/uL (0.0-0.06); Absolute Basophil Count 0.03 10^3/uL (0.0-0.2); Absolute Eosinophil Count 0.13 10^3/uL (0.0-0.7); Absolute Monocyte Count 0.64 10^3/uL (0.1-0.8); Absolute Neutrophil Count 2.19 10^3/uL (1.2-6.7); Basophils % 0.7; HCT 36.7 % (40.0-50.0); HGB 11.6 g/dL (13.5-17.5); Immature Grans % 0.2; Lymphocytes % 30.2; MCH 28.9 pg (27.0-33.0); MCHC 31.6 % (32.0-36.0); MCV 92 fL (80-95); Monocytes % 14.9; Platelet Count 207 10^3/uL (130-400); RBC 4.01 10^6/uL (4.36-5.78); RDW 17.6 % (11.8-14.1); RDW-SD 59.1 fL
[2022-07-06 21:07] LABS: PTT Activated 28.6 sec (21.0-27.5); Prothrombin Time 11.5 sec (9.3-11.0)
[2022-07-06 21:09] LABS: INR 1.1 (0.9-1.1)
[2022-07-06 21:11] LABS: ALT 15 U/L (16-63); AST 25 U/L (15-37); Alkaline Phosphatase 192 U/L (46-116); Anion Gap 2.6 mmol/L (3-11); BUN 31 mg/dL (7-18); Bilirubin, Total 0.7 mg/dL (0.2-1.0); CO2 35.4 mmol/L (21.0-32.0); CREATININE 1.3 mg/dL (0.70-1.30); Calcium 9.1 mg/dL (8.5-10.1); Chloride 104 mmol/L (98-107); Glucose 82 mg/dL (74-106); Magnesium 1.9 mg/dL (1.8-2.4); Potassium 4.1 mmol/L (3.5-5.1); Sodium 142 mmol/L (136-145); Total Protein 7.1 g/dL (6.4-8.2); Troponin I < 50 ng/L (<or=60)
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
== END 2022-07-06 22:06 | disposition home or self-care (01) ==
PROVIDERS: Emergency Provider Emergency Medicine; PCP Family Medicine
DX: R07.89 Other chest pain (principal); I11.0 Hypertensive heart disease with heart failure; I50.9 Heart failure, unspecified; I48.91 Unspecified atrial fibrillation; J44.9 Chronic obstructive pulmonary disease, unspecified; Z95.0 Presence of cardiac pacemaker; Z79.51 Long term (current) use of inhaled steroids
CPT/HCPCS: 80053; 93005; 99283; 71045; 83735; 84484; 85025; 85610; 85730; 93010; 99285; J3490

== ENCOUNTER 2022-07-07 14:15 | Outpatient (REF) | payer MEDICARE, MEDICAID, SELFPAY ==
[2022-07-07 14:13] LABS: Abs Immature Grans 0.01 10^3/uL (0.0-0.06); Absolute Basophil Count 0.02 10^3/uL (0.0-0.2); Absolute Eosinophil Count 0.12 10^3/uL (0.0-0.7); Absolute Lymphocyte Count 1.38 10^3/uL (1.2-3.4); Absolute Neutrophil Count 2.77 10^3/uL (1.2-6.7); Basophils % 0.4; Eosinophils % 2.6; HGB 11.9 g/dL (13.5-17.5); Immature Grans % 0.2; Lymphocytes % 29.4; MCH 29.2 pg (27.0-33.0); MCHC 32.2 % (32.0-36.0); MCV 91 fL (80-95); MPV 10.2 fL (8.0-11.0); Monocytes % 8.5; Neutrophils % 58.9; Platelet Count 221 10^3/uL (130-400); RBC 4.08 10^6/uL (4.36-5.78); RDW 17.5 % (11.8-14.1); RDW-SD 58.9 fL
[2022-07-07 14:19] LABS: Anion Gap 7.7 mmol/L (3-11); BUN 28 mg/dL (7-18); CO2 30.3 mmol/L (21.0-32.0); CREATININE 1.3 mg/dL (0.70-1.30); Calcium 8.9 mg/dL (8.5-10.1); Chloride 102 mmol/L (98-107); Glucose 92 mg/dL (74-106); Potassium 4.1 mmol/L (3.5-5.1); Sodium 140 mmol/L (136-145)
== END 2022-07-07 14:16 | disposition home or self-care (01) ==
LOC: LBN 14:15
PROVIDERS: PCP Family Medicine; Visit Provider Family Medicine
DX: M62.81 Muscle weakness (generalized) (principal); I48.0 Paroxysmal atrial fibrillation
CPT/HCPCS: 80048; 85025

== ENCOUNTER 2022-07-30 03:21 | Emergency (ER) | payer MEDICARE, MEDICAID, SELFPAY ==
[2022-07-30] VITALS (24 sets, daily range): BP systolic 84–112; BP diastolic 42–63; PULSE 59–161; RESP 12–74; TEMP 36.4–36.6; O2SAT 91–96
--- NOTE | 2022-07-30 03:15 | RT.EKG_ITS ---
APPROVED REPORT Exam: Resting ECG Reason for Exam: chest pain Patient Location: E HR:111 bpm ECG Measurements Heart Rate 111 AXIS ND [id number] P [id number] QRSd 85 QRS 27 QT 366 T 55 QTc 499 Conclusion Atrial fibrillation...? atrial activity Ventricular premature complex...V complex w/ short R-R interval Low voltage, extremity leads...all extremity leads <0.5mV. Afib. PVCs. No STEMI. I have reviewed and interpreted ECG and agree with software generated interpretation.
--- NOTE | 2022-07-30 03:23 | W.ED.GENAD ---
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 no sensory deficits noted Extrem General: normal to inspection, full ROM, capillary refill normal, no calf tenderness bilaterally and no edema Psych Appearance: grossly normal Mental Status: mental status grossly normal Speech and Movement: speech and movement normal Affect: normal affect
--- NOTE | 2022-07-30 03:45 | DI.RAD_ITS ---
Exam(s) XR PORTABLE CHEST AP EXAM: XR PORTABLE CHEST AP CLINICAL HISTORY: chest pain, sob, r/o acute disease. TECHNIQUE: 2D digital imaging was performed. COMPARISON: CR,XR XR PORTABLE CHEST AP from 07/06/2022 FINDINGS: Single AP portable view. Right subclavian bipolar pacemaker again noted. No pulmonary edema. Heart size is upper normal. The mediastinum is not widened. There is infiltrate in left lower lobe retrocardiac region. This is more evident on 1 of the two vie ws therefore recommend PA and lateral views. Right lung is clear. IMPRESSION: As above. Recommend nonportable PA and lateral views when clinically possible determine if there is truly infiltrate in left lower lobe. DATA REPOSITORY: RADIATION DOSE DELIVERED:
[2022-07-30 04:10] LABS: Abs Immature Grans 0.09 10^3/uL (0.0-0.06); Absolute Basophil Count 0.03 10^3/uL (0.0-0.2); Absolute Eosinophil Count 0.11 10^3/uL (0.0-0.7); Absolute Lymphocyte Count 1.25 10^3/uL (1.2-3.4); Absolute Monocyte Count 0.76 10^3/uL (0.1-0.8); Absolute Neutrophil Count 3.51 10^3/uL (1.2-6.7); Basophils % 0.5; Eosinophils % 1.9; HCT 36.3 % (40.0-50.0); HGB 11.5 g/dL (13.5-17.5); Immature Grans % 1.6; Lymphocytes % 21.7; MCH 29.1 pg (27.0-33.0); MCHC 31.7 % (32.0-36.0); MCV 92 fL (80-95); MPV 9.5 fL (8.0-11.0); Monocytes % 13.2; Neutrophils % 61.1; Platelet Count 236 10^3/uL (130-400); RBC 3.95 10^6/uL (4.36-5.78); RDW 17.8 % (11.8-14.1); WBC 5.75 10^3/uL (4.4-10.8)
[2022-07-30 04:20] LABS: Lipase 34 U/L (73-393)
[2022-07-30] MEDS: Normal Saline 250 ML IV (04:22)
[2022-07-30 04:28] LABS: ALT 19 U/L (16-63); AST 29 U/L (15-37); Albumin 3.1 g/dL (3.4-5.0); Alkaline Phosphatase 182 U/L (46-116); Anion Gap 2.4 mmol/L (3-11); Bilirubin, Total 0.8 mg/dL (0.2-1.0); CO2 34.6 mmol/L (21.0-32.0); CREATININE 1.6 mg/dL (0.70-1.30); Calcium 9.1 mg/dL (8.5-10.1); Chloride 100 mmol/L (98-107); Glucose 92 mg/dL (74-106); Magnesium 3.2 mg/dL (1.8-2.4); Potassium 5.1 mmol/L (3.5-5.1); Sodium 137 mmol/L (136-145); Total Protein 7.1 g/dL (6.4-8.2); Troponin I < 50 ng/L (<or=60)
[2022-07-30] MEDS: LORazepam 0.5 MG TAB PO (04:29)
[2022-07-30 04:40] LABS: BUN 36 mg/dL (7-18)
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
[2022-07-30] MEDS: ACETAMINOPHEN 1,000 MG/100 ML BTL 400 MG IVPB (04:49)
== END 2022-07-30 05:26 | disposition home or self-care (01) ==
PROVIDERS: Emergency Provider Physician Assistant; PCP Family Medicine
DX: R07.82 Intercostal pain (principal); G89.29 Other chronic pain; F41.9 Anxiety disorder, unspecified; I50.9 Heart failure, unspecified; N18.9 Chronic kidney disease, unspecified; J44.9 Chronic obstructive pulmonary disease, unspecified; Z66 Do not resuscitate; R10.817 Generalized abdominal tenderness; R55 Syncope and collapse; I48.91 Unspecified atrial fibrillation; I49.3 Ventricular premature depolarization; I13.0 Hypertensive heart and chronic kidney disease with heart failure and stage 1 through stage 4 chronic kidney disease, or unspecified chronic kidney disease; R00.0 Tachycardia, unspecified
CPT/HCPCS: 80053; 83690; 93005; 96361; 96374; 96375; 99284; 71045; 83735; 84484; 85025; 93010; J0131

== ENCOUNTER 2022-08-06 15:47 | Outpatient (REF) | payer MEDICARE, MEDICAID, SELFPAY ==
[2022-08-06 12:21] LABS: Abs Immature Grans 0.05 10^3/uL (0.0-0.06); Absolute Basophil Count 0.05 10^3/uL (0.0-0.2); Absolute Eosinophil Count 0.15 10^3/uL (0.0-0.7); Absolute Lymphocyte Count 1.74 10^3/uL (1.2-3.4); Absolute Monocyte Count 0.73 10^3/uL (0.1-0.8); Absolute Neutrophil Count 5.75 10^3/uL (1.2-6.7); Basophils % 0.6; Eosinophils % 1.8; HGB 11.8 g/dL (13.5-17.5); Immature Grans % 0.6; Lymphocytes % 20.5; MCH 29.3 pg (27.0-33.0); MCHC 31.9 % (32.0-36.0); MCV 92 fL (80-95); MPV 9.5 fL (8.0-11.0); Monocytes % 8.6; Neutrophils % 67.9; Platelet Count 286 10^3/uL (130-400); RBC 4.03 10^6/uL (4.36-5.78); RDW 17.7 % (11.8-14.1); RDW-SD 59.3 fL; WBC 8.47 10^3/uL (4.4-10.8)
== END 2022-08-06 15:48 | disposition home or self-care (01) ==
LOC: LBN 15:47
PROVIDERS: PCP Family Medicine; Visit Provider Family Medicine
DX: G89.4 Chronic pain syndrome (principal)
CPT/HCPCS: 85025